=== PATIENT | female | born 1975 | race Caucasian/White ===

== ENCOUNTER 2022-08-08 08:22 | Outpatient (RCR) | payer OTHER, SELFPAY | END 2022-09-07 16:23 | disposition home or self-care (01) | LOC: OT 08:22 | PROVIDERS: PCP Family Medicine; Visit Provider Nurse Practitioner Family | DX: M24.541 Contracture, right hand (principal) | CPT/HCPCS: 97018; 97035; 97140; 97530 ==

== ENCOUNTER 2022-08-09 08:39 | Outpatient (OUT) | payer OTHER, SELFPAY ==
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
== END 2022-08-09 08:40 | disposition home or self-care (01) ==
PROVIDERS: PCP Family Medicine; Visit Provider Anesthesiology Pain Medicine
DX: G90.50 Complex regional pain syndrome I, unspecified (principal); M48.061 Spinal stenosis, lumbar region without neurogenic claudication
CPT/HCPCS: G0463

== ENCOUNTER 2023-02-13 10:54 | Outpatient (OUT) | payer OTHER, SELFPAY ==
--- NOTE | 2023-02-13 11:09 | PM.CN ---
Consult Note: HPI Data of Consult Requesting Physician: An Reynoso NP Primary Care Provider: Ryan ORTIZ Consult Narrative Reason for consult: f/u Narrative: Tasneem Camarillo a pleasant 47 year old female presents for evaluation and management of CPS or LLE and hx of fibromyalgia. Patient reporting pain 7/10 sharp throbbing stabbing in low back. Patient has been noticing increase in low back pain and leg pain over the last few months, has been reconsidering repeat ketamine infusions. Patient would like to discuss medication management as she cannot proceed with SCS trial or implant with work schedule. cc:: CC: An Reynoso NP Review of Systems ROS Status of ROS 10 or more systems reviewed and unremarkable except as noted in history and below Musculoskeletal Reports: back pain, extremity pain and extremity swelling Meds Home Medications and Allergies Home Medications Medication Instructions Recorded Confirmed Type atenolol 50 mg-chlorthalidone 25 1 tab PO DAILY 08/12/22 08/12/22 History mg tablet buspirone 15 mg tablet 15 mg PO BID 08/12/22 08/12/22 History bjhndhjfdu-pncfqnznfvryu-ogcg PO .Q4 08/12/22 History lamotrigine 200 mg tablet 200 mg PO DAILY 08/12/22 08/12/22 History ondansetron 4 mg disintegrating 4 mg PO Q6H 08/12/22 08/12/22 History tablet oxaprozin 600 mg tablet 600 mg PO BID 08/12/22 08/12/22 History oxaprozin 600 mg tablet 600 mg PO BID 08/12/22 08/12/22 History oxycodone-acetaminophen 5 mg-325 1 tab PO DAILY 08/12/22 08/12/22 History mg tablet pregabalin 150 mg capsule 150 mg PO .QHS 08/12/22 08/12/22 History promethazine 25 mg tablet 25 mg PO Q6H 08/12/22 08/12/22 History tizanidine 4 mg tablet 4 mg PO .QHS 08/12/22 08/12/22 History Allergies Allergy/AdvReac Type Severity Reaction Status Date / Time sulfabenzamide Allergy Intermediate Verified 08/09/22 09:21 sumatriptan [From Imitrex] Allergy Intermediate Verified 08/09/22 09:21 REGLAN Allergy Intermediate Uncoded 08/09/22 09:21 AUGMENTIN Allergy Unknown Uncoded 08/09/22 09:21 Exam Constitutional Common normals: no apparent distress, average body habitus, oriented x3, no limitations, healthy appearing, alert and well nourished General appearance: cooperative, comfortable and well developed Orientation/consciousness: Yes awake, Yes oriented to person, Yes oriented to place and Yes oriented to time HENMT Common normals: normocephalic Head and scalp: normal to inspection Respiratory Common normals: normal respiratory effort, no retractions and no use of accessory muscles Effort & inspection: able to speak in complete sentences and symmetric chest movement Back & Pelvis Lumbar spine/lower back: normal to inspection, pain with ROM, paraspinal muscle tenderness, paraspinal muscle spasm, straight leg raise positive right and straight leg raise positive left Other: positive rohan bilat R>L, positive facet loading Extremity Common normals: normal to inspection, full ROM, normal capillary refill, no clubbing, cyanosis or edema and no pedal edema Left lower extremity: lower leg Other: hypersensitivity to touch Assessment and Plan Assessment and Plan (1) CRPS (complex regional pain syndrome type I): Qualifiers: Complex regional pain syndrome affected site: lower extremity Laterality: left Qualified Code(s): G90.522 - Complex regional pain syndrome I of left lower limb (2) Lumbar spondylosis: (3) Myofascial pain: (4) Chronic prescription opiate use: Assessment and Plan: I feel these medications are improving the patient's quality of life and allow them to tolerate activities of daily living as well as participate in recreational activity.? The patient does not report intolerable side effects. The patient is NOT opioid naive and non-pharmacologic and non-opioid treatment has failed to significantly relieve the patient's pain and improve functionality. The patient has a diagnosis that is related to a somatic or visceral pain etiology. ? ?? I reviewed with the patient the potential risks and side effects with the use of? opioid medications including but not limited to respiratory depression,? sedation, and even . I verified the patient has access to naloxone should? these effects occur. I advised the patient to avoid the use of any other? sedation substances including alcohol, THC, and benzodiazepines while? taking opioid medications due to the risk of compounding side effects and? detrimental outcomes. I reviewed the ADDICTION MEDICINE PHYSICIAN, pain treatment agreement, urine? drug screen, and opioid start talking forms. The patient was advised to let? their family know they had Naloxone in case they would need to administer? the medication.? ?? A drug screen was completed within the last year, and no aberrancies were noted regarding their use of controlled substances. The patient understands they are subject to the terms and conditions of the pain contract that they have signed. ? ?? I have checked an [place]AR[place] report on this patient today and there are no aberrancies noted in the prescribing history.? Plan refill percocet 5-325mg daily PRN narcan discussed and prescribed PT declined TENS for low back pain and myofascial pain f/u 3 months for medication management
--- NOTE | 2023-02-13 11:26 | PM.CN ---
Consult Note: HPI Data of Consult Requesting Physician: An Reynoso NP Primary Care Provider: Ryan ORTIZ Consult Narrative cc:: CC: An Reynoso NP Meds Home Medications and Allergies Home Medications Medication Instructions Recorded Confirmed Type atenolol 50 mg-chlorthalidone 25 1 tab PO DAILY 08/12/22 08/12/22 History mg tablet buspirone 15 mg tablet 15 mg PO BID 08/12/22 08/12/22 History fsmabiuddw-abehnnnxyklro-mtzo PO .Q4 08/12/22 History lamotrigine 200 mg tablet 200 mg PO DAILY 08/12/22 08/12/22 History ondansetron 4 mg disintegrating 4 mg PO Q6H 08/12/22 08/12/22 History tablet oxaprozin 600 mg tablet 600 mg PO BID 08/12/22 08/12/22 History oxaprozin 600 mg tablet 600 mg PO BID 08/12/22 08/12/22 History oxycodone-acetaminophen 5 mg-325 1 tab PO DAILY 08/12/22 08/12/22 History mg tablet pregabalin 150 mg capsule 150 mg PO .QHS 08/12/22 08/12/22 History promethazine 25 mg tablet 25 mg PO Q6H 08/12/22 08/12/22 History tizanidine 4 mg tablet 4 mg PO .QHS 08/12/22 08/12/22 History Allergies Allergy/AdvReac Type Severity Reaction Status Date / Time sulfabenzamide Allergy Intermediate Verified 08/09/22 09:21 sumatriptan [From Imitrex] Allergy Intermediate Verified 08/09/22 09:21 REGLAN Allergy Intermediate Uncoded 08/09/22 09:21 AUGMENTIN Allergy Unknown Uncoded 08/09/22 09:21 Assessment and Plan Assessment and Plan (1) CRPS (complex regional pain syndrome type I): Qualifiers: Complex regional pain syndrome affected site: lower extremity Laterality: left Qualified Code(s): G90.522 - Complex regional pain syndrome I of left lower limb (2) Lumbar spondylosis: (3) Myofascial pain: (4) Chronic prescription opiate use: Assessment and Plan: I feel these medications are improving the patient's quality of life and allow them to tolerate activities of daily living as well as participate in recreational activity.? The patient does not report intolerable side effects. The patient is NOT opioid naive and non-pharmacologic and non-opioid treatment has failed to significantly relieve the patient's pain and improve functionality. The patient has a diagnosis that is related to a somatic or visceral pain etiology. ? ?? I reviewed with the patient the potential risks and side effects with the use of? opioid medications including but not limited to respiratory depression,? sedation, and even . I verified the patient has access to naloxone should? these effects occur. I advised the patient to avoid the use of any other? sedation substances including alcohol, THC, and benzodiazepines while? taking opioid medications due to the risk of compounding side effects and? detrimental outcomes. I reviewed the DATABASES SOFTWARE CONSULTANT, pain treatment agreement, urine? drug screen, and opioid start talking forms. The patient was advised to let? their family know they had Naloxone in case they would need to administer? the medication.? ?? A drug screen was completed within the last year, and no aberrancies were noted regarding their use of controlled substances. The patient understands they are subject to the terms and conditions of the pain contract that they have signed. ? ?? I have checked an OARRS report on this patient today and there are no aberrancies noted in the prescribing history.? Plan refill percocet 5-325mg daily PRN narcan discussed and prescribed PT declined TENS for low back pain and myofascial pain f/u 3 months for medication management
== END 2023-02-13 10:55 | disposition home or self-care (01) ==
PROVIDERS: PCP Family Medicine; Visit Provider Nurse Practitioner
DX: G90.522 Complex regional pain syndrome I of left lower limb (principal); M47.816 Spondylosis without myelopathy or radiculopathy, lumbar region; M79.18 Myalgia, other site; Z79.891 Long term (current) use of opiate analgesic
CPT/HCPCS: G0463

== ENCOUNTER 2023-03-14 10:09 | Emergency (ER) | payer OTHER, SELFPAY ==
[2023-03-14 10:13] VITALS: BP 151/82; PULSE 73; RESP 18; TEMP 36.8; O2SAT 97; BMI 29.5
--- NOTE | 2023-03-14 10:19 | ECG_ITS ---
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
--- NOTE | 2023-03-14 10:19 | XR_ITS ---
The [address] [address] Patient Name: DEANNA LOPEZ MRN: [id number] date: 1975 Sex: F Assigned Patient Location: ER Current Patient Location: ER Accession/Order Number: [id number] Exam Date: 03/14/2023 11:00 Report Date: 03/14/2023 12:04 At the request of: KORI CASEY Procedure: XR chest 1V EXAMINATION: XR chest 1V HISTORY: chest pain COMPARISON: 01/03/2020 TECHNIQUE: AP portable FINDINGS: LUNGS: No significant pulmonary parenchymal abnormalities. VASCULATURE: No increased pulmonary vasculature. PLEURA: No pneumothorax, effusion, or pleural thickening. CARDIAC: No cardiomegaly or cardiac silhouette abnormality. MEDIASTINUM: No visible mass or adenopathy. BONES: No fracture or visible bone lesion. OTHER: Negative. XR/XR chest 1V IMPRESSION: No acute cardiopulmonary process Electronically authenticated by: MINE STAHL Date: 03/14/2023 12:04
--- NOTE | 2023-03-14 10:41 | ED.GENADUL1 ---
HPI - General Adult General Chief complaint: Chest Pain Stated complaint: CHEST PAIN/ SHORTNESS OF BREATH Time Seen by Provider: 03/14/23 10:39 Source: patient Mode of arrival: walk-in Limitations: no limitations History of Present Illness HPI narrative: Patient is a 48-year-old female who is presenting to the Emergency Room with chief complaint of midepigastric and lower midsternal discomfort this pain intermittent today and 2 days ago. Patient is not lightheaded or dizzy. No shortness of breath. Patient does not have any significant history of acid reflux or ulcers. Patient had nausea with no vomiting. Patient has no melena, hematochezia. Patient does not have Any cardiac history. No other acute complaints. . All systems are negative except as noted/marked. All systems reviewed and otherwise negative. . Nurses note and vital signs reviewed and patient is not hypoxic. General: The patient appears well and in no apparent distress. Patient is resting comfortably on cart. Patient is not toxic, lethargic, or listless Skin: Warm, dry, no pallor noted. There is no rash noted. No petechiae, purpura. Head: Normocephalic, atraumatic Eye: Normal conjunctiva, no drainage, EOMI. PERRL Ears, Nose, Mouth, and Throat: oral mucosa is moist. Nares patent. Mouth without vesicles. Cardiovascular: Regular Rate and Rhythm, no murmur, gallop, rub Respiratory: Patient is in no distress, no accessory muscle use, lungs are clear to auscultation, no wheezing, rales or rhonchi Back: non-tender, no CVA tenderness bilaterally to percussion. No CT LS midline pain GI: soft, Mild midepigastric tenderness palpation, no tenderness to palpation, no masses appreciated. No rebound, guarding, or rigidity noted. No flank pain bilateral, No distention Musculoskeletal: Patient has full range of motion of all of the extremities, no motor, sensory, or focal neurological deficits Neurological: A&O x3, normal speech Psychiatric: Cooperative Related Data Home Medications Medication Instructions Recorded Confirmed atenolol 50 mg-chlorthalidone 25 1 tab PO DAILY 08/12/22 08/12/22 mg tablet buspirone 15 mg tablet 15 mg PO BID 08/12/22 08/12/22 sghxvgqqnv-atrxycnnpclvl-qmrz PO .Q4 08/12/22 lamotrigine 200 mg tablet 200 mg PO DAILY 08/12/22 08/12/22 ondansetron 4 mg disintegrating 4 mg PO Q6H 08/12/22 08/12/22 tablet oxaprozin 600 mg tablet 600 mg PO BID 08/12/22 08/12/22 oxaprozin 600 mg tablet 600 mg PO BID 08/12/22 08/12/22 oxycodone-acetaminophen 5 mg-325 1 tab PO DAILY 08/12/22 08/12/22 mg tablet pregabalin 150 mg capsule 150 mg PO .QHS 08/12/22 08/12/22 promethazine 25 mg tablet 25 mg PO Q6H 08/12/22 08/12/22 tizanidine 4 mg tablet 4 mg PO .QHS 08/12/22 08/12/22 Previous Rx's Medication Instructions Recorded naloxone 4 mg/actuation nasal 4 mg intranasal Q3M PRN opioid 02/13/23 spray (Narcan) overdose #2 ea oxycodone-acetaminophen 5 mg-325 1 tab PO DAILY PRN pain #30 tabs 02/13/23 mg tablet (Percocet) Allergies Allergy/AdvReac Type Severity Reaction Status Date / Time metoclopramide [From Reglan] Allergy Intermediate Verified 03/14/23 10:57 sulfabenzamide Allergy Intermediate Verified 08/09/22 09:21 sumatriptan [From Imitrex] Allergy Intermediate Verified 08/09/22 09:21 amoxicillin [From Augmentin] Allergy Unknown Verified 03/14/23 10:57 clavulanic acid Allergy Unknown Verified 03/14/23 10:57 [From Augmentin] [facility] Social History Smoking status: Never smoker Exam Constitutional Vital Signs, click to edit/add: Last Vital Signs Temp 98.3 F 03/14/23 10:13 Pulse 73 03/14/23 10:13 Resp 18 03/14/23 10:13 BP 151/82 H 03/14/23 10:13 Pulse Ox 97 03/14/23 10:13 O2 Del Method Room Air 03/14/23 10:13 Course Vital Signs Vital signs: Vital Signs Temperature 98.3 F 03/14/23 10:13 Pulse Rate 73 03/14/23 10:13 Respiratory Rate 18 03/14/23 10:13 Blood Pressure 151/82 H 03/14/23 10:13 Pulse Oximetry 97 03/14/23 10:13 Oxygen Delivery Method Room Air 03/14/23 10:13 Temperature 98.3 F 03/14/23 10:13 Pulse Rate 73 03/14/23 10:13 Respiratory Rate 18 03/14/23 10:13 Blood Pressure 151/82 H 03/14/23 10:13 Pulse Oximetry 97 03/14/23 10:13 Oxygen Delivery Method Room Air 03/14/23 10:13 Medical Decision Making MDM Narrative Medical decision making narrative: Patient EKG, lab work shows no acute findings. Patient's nausea has improved. Patient's pain has subsided. Patient will follow-up with PCP. Patient's. And creatinine are elevated, they were also elevated on June 122022 as well. Patient has known kidney disease, she has not seen a graphic arts technician or been referred to a graphic arts technician yet. Patient has spoken to her PCP about elevated BUN and creatinine levels in the past. Patient feels safe going home, will follow up with PCP next week. No questions at discharge. Lab Data Labs: Lab Results 03/14/23 Range/Units 11:00 WBC 6.0 (4.0-11.0) 10^3/uL RBC 4.06 L (4.20-5.40) 10^6/uL Hgb 12.3 (12.0-16.0) g/dL Hct 39.3 (36.0-48.0) % MCV 96.8 (81.0-99.0) fL MCH 30.3 (26.7-34.0) pg MCHC 31.3 (29.9-35.2) g/dL RDW 14.1 (11.0-15.0) % Plt Count 251 (150-450) 10^3/uL MPV 10.6 (9.5-13.5) fL Neut % (Auto) 51.2 (43.0-75.0) % Lymph % (Auto) 35.6 (20.5-60.0) % Finney % (Auto) 9.2 (1.7-12.0) % Eos % (Auto) 2.8 (0.9-7.0) % Baso % (Auto) 1.0 (0.2-2.0) % Neut # (Auto) 3.1 (1.4-6.5) 10^3/uL Lymph # (Auto) 2.1 (1.2-3.8) 10^3/uL Finney # (Auto) 0.6 (0.3-0.8) 10^3/uL Eos # (Auto) 0.2 (0.0-0.7) 10^3/uL Baso # (Auto) 0.1 (0.0-0.1) 10^3/uL Abs Immat Gran (auto) 0.01 (0.00-0.03) 10^3/uL Imm/Tot Granulo (auto) 0.2 (0.0-0.5) % Sodium 139 (136-145) mmol/L Potassium 3.4 L (3.5-5.1) mmol/L Chloride 106 (98-107) mmol/L Carbon Dioxide 29.1 (21.0-32.0) mmol/L Anion Gap 7.3 BUN 34.0 H (7.0-18.0) mg/dL Creatinine 1.40 H (0.55-1.02) mg/dL Est GFR ( Amer) 48 L (>=60) Est GFR (Non-Af Amer) 40 L (>=60) BUN/Creatinine Ratio 24.3 Glucose 91 (74-106) mg/dL Calcium 9.3 (8.5-10.1) mg/dL Total Bilirubin 0.7 (0.2-1.0) mg/dL AST 20 (15-37) U/L ALT 17 (14-59) U/L Alkaline Phosphatase 63 (46-116) U/L Troponin I High Sens 8.0 (4.0-51.3) pg/mL Total Protein 6.6 (6.4-8.2) g/dL Albumin 3.2 L (3.4-5.0) g/dL Globulin 3.4 g/dL Albumin/Globulin Ratio 0.9 Lipase 88.0 H (16.0-77.0) U/L ECG Data Attestation: I personally reviewed and interpreted this ECG as follows: (EKG interpretation. Normal sinus rhythm at 64 beats a minute. Normal axis deviation. No acute ST elevation, no acute ectopy. QTC of 419.) Discharge Plan Discharge Chief Complaint: Chest Pain Clinical Impression: Chest pain, Chronic kidney disease, Atypical chest pain, Midepigastric pain Patient Disposition: Home, Self-Care Condition: Fair Prescriptions / Home Meds: No Action atenolol-chlorthalidone 50-25 mg tablet 1 tab PO DAILY lamotrigine 200 mg tablet 200 mg PO DAILY ondansetron 4 mg tablet,disintegrating 4 mg PO Q6H oxycodone-acetaminophen 5-325 mg tablet 1 tab PO DAILY pregabalin 150 mg capsule 150 mg PO .QHS promethazine 25 mg tablet 25 mg PO Q6H tizanidine 4 mg tablet 4 mg PO .QHS wwanaontoj-bpnainqjhukne-dlbs [Fioricet] PO .Q4 buspirone 15 mg tablet 15 mg PO BID oxaprozin 600 mg tablet 600 mg PO BID oxaprozin 600 mg tablet 600 mg PO BID oxycodone-acetaminophen [Percocet] 5-325 mg tablet 1 tab PO DAILY PRN (Reason: pain) Qty: 30 0RF naloxone [Narcan] 4 mg/actuation spray,non-aerosol 4 mg intranasal Q3M PRN (Reason: opioid overdose) Qty: 2 0RF Rx Instructions: spray 1 dose into ONE nostril; alternate nostrils w each dose until help arrives Instructions: Chest Pain (ED), Chronic Kidney Disease (ED), Abdominal Pain (ED), Epigastric Pain (ED) Additional Instructions: Follow-up with your PCP for reeevaluation for chronic kidney disease. You may need to be referred to a graphic arts technician of indicated. Continue to increase fluids at home If you're continuing to having chest pain or discomfort, return Emergency Room follow-up to your PCP for outpatient cardiac stress test and echocardiogram. Stand Alone Forms: Portal Instructions Referrals: Ryan ORTIZ [Primary Care Provider] - 1 week Discharge Date/Time: 03/14/23 13:20
[2023-03-14] MEDS: ONDANSETRON 4 MG RAPDIS TABLET SL (11:03)
[2023-03-14] MEDS: lidocaine HCL 15 ML, MAG HYDROX/ALUMINUM HYD/SIMETH 30 ML, HYOSCYAMINE SULFATE 0.25 MG PO (11:03)
[2023-03-14] MEDS: ASPIRIN 81 MG TAB.CHEW 162 MG PO (11:04)
[2023-03-14 11:06] LABS: Basophils Absolute Auto 0.1 10^3/uL (0.0-0.1); Eosinophils Absolute Auto 0.2 10^3/uL (0.0-0.7); Eosinophils Percent Auto 2.8 % (0.9-7.0); Hematocrit 39.3 % (36.0-48.0); Hemoglobin 12.3 g/dL (12.0-16.0); Immature Granulocytes Abs Auto 0.01 10^3/uL (0.00-0.03); Immature Granulocytes Pct Auto 0.2 % (0.0-0.5); Lymphocytes Absolute Auto 2.1 10^3/uL (1.2-3.8); Lymphocytes Percent Auto 35.6 % (20.5-60.0); Mean Corpuscular HGB Conc 31.3 g/dL (29.9-35.2); Mean Corpuscular Hemoglobin 30.3 pg (26.7-34.0); Mean Corpuscular Volume 96.8 fL (81.0-99.0); Mean Platelet Volume 10.6 fL (9.5-13.5); Monocytes Absolute Auto 0.6 10^3/uL (0.3-0.8); Monocytes Percent Auto 9.2 % (1.7-12.0); Neutrophils Absolute Auto 3.1 10^3/uL (1.4-6.5); Neutrophils Percent Auto 51.2 % (43.0-75.0); Platelet Count 251 10^3/uL (150-450); Red Blood Count 4.06 10^6/uL (4.20-5.40); Red Cell Distribution Width 14.1 % (11.0-15.0)
[2023-03-14 11:27] LABS: Alanine Aminotransferase 17 U/L (14-59); Albumin Globulin Ratio 0.9; Albumin Level 3.2 g/dL (3.4-5.0); Alkaline Phosphatase 63 U/L (46-116); Anion Gap 7.3; Aspartate Amino Transferase 20 U/L (15-37); BUN Creatinine Ratio 24.3; Bilirubin Total 0.7 mg/dL (0.2-1.0); Calcium 9.3 mg/dL (8.5-10.1); Carbon Dioxide 29.1 mmol/L (21.0-32.0); Chloride 106 mmol/L (98-107); Estimated GFR (African America 48 (>=60); Estimated GFR (Non-African Ame 40 (>=60); Globulin 3.4 g/dL; Glucose 91 mg/dL (74-106); Potassium 3.4 mmol/L (3.5-5.1); Sodium 139 mmol/L (136-145); Total Protein 6.6 g/dL (6.4-8.2)
== END 2023-03-14 13:20 | disposition home or self-care (01) ==
PROVIDERS: Emergency Provider Emergency Medicine; PCP Family Medicine
DX: R07.89 Other chest pain (principal); N18.9 Chronic kidney disease, unspecified; R10.13 Epigastric pain; Z79.899 Other long term (current) drug therapy
CPT/HCPCS: 36415; 71045; 80053; 83690; 84484; 85025; 93005; 99285; Q0162

== ENCOUNTER 2023-05-22 09:53 | Outpatient (OUT) | payer OTHER, SELFPAY ==
--- NOTE | 2023-05-22 10:28 | P.CN_ITS ---
Consult Note: HPI Data of Consult Patient: known to practice within the last 3 years Consult date: 05/22/23 Requesting Physician: An Reynoso NP Primary Care Provider: Ryan ORTIZ Consult Narrative Reason for consult: f/u Narrative: Tasneem Camarillo a pleasant 48 year old female presents for evaluation and managem ent of chronic low back pain. Pain today 4/10, increasing to 8/10 with activity. patient finding moderate benefit from current medication regimen and TENS unit. Patient would like to discuss additional intervention options as she continues to have moderate to severe pain impacting functional ability. Pt has failed PT and provided guided HEP greater than 6 weeks. cc:: CC: An Reynoso NP Review of Systems ROS Status of ROS 10 or more systems reviewed and unremark able except as noted in history and below Musculoskeletal Reports: back pain and joint pain PFSH PFSH Social History Smoking status: Never smoker Meds Home Medications and Allergies Home Medications Medication Instructions Recorded Confirmed Type atenolol 50 mg-chlorthalidone 25 1 tab PO DAILY 08/12/22 08/12/22 History mg tablet buspirone 15 mg tablet 15 mg PO BID 08/12/22 08/12/22 History kxfzkxuyje-hrcltajwglucv-zerh PO .Q4 08/12/22 History lamotrigine 200 mg tablet 200 mg PO DAILY 08/12/22 08/12/22 History ondansetron 4 mg disintegrating 4 mg PO Q6H 08/12/22 08/12/22 History tablet oxaprozin 600 mg tablet 600 mg PO BID 08/12/22 08/12/22 History oxaprozin 600 mg tablet 600 mg PO BID 08/12/22 08/12/22 History oxycodone-acetaminophen 5 mg-325 1 tab PO DAILY 08/12/22 08/12/22 History mg tablet pregabalin 150 mg capsule 150 mg PO .QHS 08/12/22 08/12/22 History promethazine 25 mg tablet 25 mg PO Q6H 08/12/22 08/12/22 History tizanidine 4 mg tablet 4 mg PO .QHS 08/12/22 08/12/22 History naloxone 4 mg/actuation nasal 4 mg intranasal Q3M PRN opioid 02/13/23 Rx spray (Narcan) overdose #2 ea oxycodone-acetaminophen 5 mg-325 1 tab PO DAILY PRN pain #30 tabs 02/13/23 Rx mg tablet (Percocet) Allergies Allergy/AdvReac Type Severity Reaction Status Date / Time metoclopramide [From Reglan] Allergy Intermediate Verified 03/14/23 10:57 sulfabenzamide Allergy Intermediate Verified 08/09/22 09:21 sumatriptan [From Imitrex] Allergy Intermediate Verified 08/09/22 09:21 amoxicillin [From Augmentin] Allergy Unknown Verified 03/14/23 10:57 clavulanic acid Allergy Unknown Verified 03/14/23 10:57 [From Augmentin] Exam Constitutional Documenting provider has reviewed patient's vital signs: yes Common normals: no apparent distress, oriented x3, healthy appearing, alert and well nourished General appearance: cooperative Orientation/consciousness: Yes awake, Yes oriented to person, Yes oriented to place and Yes oriented to time HENMT Common normals: normocephalic, hearing grossly normal bilaterally and moist oral mucous membranes Head and scalp: normocephalic Eye Common normals: PERRL Pupil: PERRL Neck & C-Spine Common normals: full ROM General: normal visual inspection Chest Common normals: inspection of chest normal Respiratory Common normals: normal respiratory effort, no retractions and no use of accessory muscles Effort & inspection: able to speak in complete sentences and symmetric chest movement Back & Pelvis Lumbar spine/lower back: normal to inspection, pain with ROM, lumbar spinal tenderness, paraspinal muscle tenderness and straight leg raise negative bilaterally Sacroiliac joints: SI joint(s) abnormal Other: positive rohan bilat R>L, positive facet loading over L3-L5 bilateral SIJ positive FABIR FADER Thigh thrust gaenslens Extremity Common normals: normal to inspection, full ROM, normal capillary refill, no clubbing, cyanosis or edema and no pedal edema Left lower extremity: lower leg Other: hypersensitivity to touch hx CRPS Neuro Common normals: oriented x3, CN's II-XII intact bilaterally, moves all extremities, no focal motor deficits, no sensory deficits noted and deep tendon reflexes 2+ bilaterally Sensorium/orientation: alert Motor exam: strength 5/5 throughout and no movement abnormalities noted Psych Common normals: mental status grossly normal, thought process normal, cooperative, affect normal, speech normal and activity/motor behavior normal Speech: normal speech Thought process: normal thought process Results Additional Findings Additional findings: If on a controlled substance or opioids, I have checked an [place]AR[place] report on this patient and there are no aberrancies noted in the prescribing history.??If on a controlled substance or opioid a drug screen was completed and reviewed within the last year, and if there has not been a drug screen completed we ordered one today to monitor higher risk, state monitored pain medication use. As part of providing excellent, safe, comprehensive care, the following was completed at our patient's visit: 1. A medication reconciliation and review to ensure accurate knowledge of current/active medications, including asking our patients to inform us about any krgx-abq-jpsabxs medications or herbal remedies/nutritional supplements/alternative remedies. 2. A review to specifically ensure our patients have had annual screening for screening for depression, screening for tobacco use, and screening for unhealthy alcohol use. For concerning screenings had a discussion with the patient, provided patient education, and recommended follow-up with primary care provider when appropriate. If patient noted with a risk of falling, they received education on strength, gait, and balance training to prevent future risk of falling. Assessment and Plan Assessment and Plan (1) Bilateral sacroiliitis: (2) Chronic prescription opiate use: Assessment and Plan: feel these medications are improving the patient's quality of life and allow them to tolerate activities of daily living as well as participate in recreational activity.? The patient does not report intolerable side effects. The patient is NOT opioid naive and non-pharmacologic and non-opioid treatment has failed to significantly relieve the patient's pain and improve functionality. The patient has a diagnosis that is related to a somatic or visceral pain etiology. ? ?? I reviewed with the patient the potential risks and side effects with the use of? opioid medications including but not limited to respiratory depression,? sedation, and even . I verified the patient has access to naloxone should? these effects occur. I advised the patient to avoid the use of any other? sedation substances including alcohol, THC, and benzodiazepines while? taking opioid medications due to the risk of compounding side effects and? detrimental outcomes. I reviewed the LACQUER DIPPING MACHINE OPERATOR, pain treatment agreement, urine? drug screen, and opioid start talking forms. The patient was advised to let? their family know they had Naloxone in case they would need to administer? the medication.? ?? A drug screen was completed within the last year, and no aberrancies were noted regarding their use of controlled substances. The patient understands they are subject to the terms and conditions of the pain contract that they have signed. ? ?? I have checked an [place]AR[place] report on this patient today and there are no aberrancies noted in the prescribing history.? (3) Lumbar spondylosis: (4) Myofascial pain: (5) CRPS (complex regional pain syndrome type I): Assessment and Plan: well controlled Qualifiers: Complex regional pain syndrome affected site: lower extremity Laterality: left Qualified Code(s): G90.522 - Complex regional pain syndrome I of left lower limb Plan bilateral nerve block of SIJ under fluoroscopy, risks vs benefits discussed continue current medication regimen, tolerating well without side effects continue TENS, finding benefit consider bilateral L3-4 L4-5 facet medial branch blocks working towards RFA in the future for facet pain and lumbar spondylosis f/u after injection
== END 2023-05-22 09:54 | disposition home or self-care (01) ==
LOC: PM 09:54
PROVIDERS: PCP Family Medicine; Visit Provider Nurse Practitioner
DX: M46.1 Sacroiliitis, not elsewhere classified (principal); Z79.891 Long term (current) use of opiate analgesic; M47.816 Spondylosis without myelopathy or radiculopathy, lumbar region; M79.18 Myalgia, other site; G90.522 Complex regional pain syndrome I of left lower limb
CPT/HCPCS: G0463

== ENCOUNTER 2023-08-27 15:00 | Outpatient (RCR) | payer OTHER, SELFPAY | END 2023-08-28 16:08 | disposition home or self-care (01) | LOC: OT 15:00 | PROVIDERS: PCP Family Medicine; Visit Provider Nurse Practitioner Family | DX: M24.541 Contracture, right hand (principal); S62.606D Fracture of unspecified phalanx of right little finger, subsequent encounter for fracture with routine healing | CPT/HCPCS: 97165; 97760 ==

== ENCOUNTER 2023-10-22 10:09 | Outpatient (OUT) | payer OTHER, SELFPAY ==
--- NOTE | 2023-10-22 10:42 | P.CN_ITS ---
Consult Note: HPI Data of Consult Patient: known to practice within the last 3 years Consult date: 05/22/23 Requesting Physician: An Reynoso NP Primary Care Provider: Ryan ORTIZ Consult Narrative Reason for consult: f/u Narrative: Tasneem Camarillo a pleasant 48 year old female presents for evaluation and managem ent of chronic low back pain. Pain today 4/10, increasing to 8/10 with activity. patient finding moderate benefit from current medication regimen and TENS unit. Pt has failed PT and provided guided HEP greater than 6 weeks. Patient decided not to pursue interventional therapy as her medication regimen is working well. cc:: CC: An Reynoso NP Review of Systems ROS Status of ROS 10 or more systems reviewed and unremark able except as noted in history and below Musculoskeletal Reports: back pain and extremity pain PFSH PFSH Social History Smoking status: Never smoker Meds Home Medications and Allergies Home Medications ?Medication ?Instructions ?Recorded ?Confirmed ?Type atenolol 50 mg-chlorthalidone 25 1 tab PO DAILY 08/12/22 08/12/22 History mg tablet buspirone 15 mg tablet 15 mg PO BID 08/12/22 08/12/22 History ziygndsska-dnjmlyuzkynem-scwr PO .Q4 08/12/22 History lamotrigine 200 mg tablet 200 mg PO DAILY 08/12/22 08/12/22 History ondansetron 4 mg disintegrating 4 mg PO Q6H 08/12/22 08/12/22 History tablet oxaprozin 600 mg tablet 600 mg PO BID 08/12/22 08/12/22 History oxaprozin 600 mg tablet 600 mg PO BID 08/12/22 08/12/22 History oxycodone-acetaminophen 5 mg-325 1 tab PO DAILY 08/12/22 08/12/22 History mg tablet pregabalin 150 mg capsule 150 mg PO .QHS 08/12/22 08/12/22 History promethazine 25 mg tablet 25 mg PO Q6H 08/12/22 08/12/22 History tizanidine 4 mg tablet 4 mg PO .QHS 08/12/22 08/12/22 History naloxone 4 mg/actuation nasal 4 mg intranasal Q3M PRN opioid 02/13/23 Rx spray (Narcan) overdose #2 ea oxycodone-acetaminophen 5 mg-325 1 tab PO DAILY PRN pain #30 tabs 02/13/23 Rx mg tablet (Percocet) Allergies Allergy/AdvReac Type Severity Reaction Status Date / Time metoclopramide [From Reglan] Allergy Intermediate Verified 03/14/23 10:57 sulfabenzamide Allergy Intermediate Verified 08/09/22 09:21 sumatriptan [From Imitrex] Allergy Intermediate Verified 08/09/22 09:21 amoxicillin [From Augmentin] Allergy Unknown Verified 03/14/23 10:57 clavulanic acid Allergy Unknown Verified 03/14/23 10:57 [From Augmentin] Exam Constitutional Documenting provider has reviewed patient's vital signs: yes Common normals: no apparent distress, oriented x3, healthy appearing, alert and well nourished General appearance: cooperative Orientation/consciousness: Yes awake, Yes oriented to person, Yes oriented to place and Yes oriented to time HENMT Common normals: normocephalic, hearing grossly normal bilaterally and moist oral mucous membranes Head and scalp: normocephalic Eye Common normals: PERRL Pupil: PERRL Neck & C-Spine Common normals: full ROM General: normal visual inspection Chest Common normals: inspection of chest normal Respiratory Common normals: normal respiratory effort, no retractions and no use of accessory muscles Effort & inspection: able to speak in complete sentences and symmetric chest movement Back & Pelvis Lumbar spine/lower back: normal to inspection, pain with ROM, lumbar spinal tenderness, paraspinal muscle tenderness and straight leg raise negative bilaterally Sacroiliac joints: SI joint(s) abnormal Other: positive rohan bilat R>L, positive facet loading over L3-L5 bilateral SIJ positive FABIR FADER Thigh thrust gaenslens Extremity Common normals: normal to inspection, full ROM, normal capillary refill, no clubbing, cyanosis or edema and no pedal edema Left lower extremity: lower leg Other: hypersensitivity to touch hx CRPS Neuro Common normals: oriented x3, CN's II-XII intact bilaterally, moves all extremities, no focal motor deficits, no sensory deficits noted and deep tendon reflexes 2+ bilaterally Sensorium/orientation: alert Motor exam: strength 5/5 throughout and no movement abnormalities noted Psych Common normals: mental status grossly normal, thought process normal, cooperative, affect normal, speech normal and activity/motor behavior normal Speech: normal speech Thought process: normal thought process Results Additional Findings Additional findings: If on a controlled substance or opioids, I have checked an [place]AR[place] report on this patient and there are no aberrancies noted in the prescribing history.??If on a controlled substance or opioid a drug screen was completed and reviewed within the last year, and if there has not been a drug screen completed we ordered one today to monitor higher risk, state monitored pain medication use. As part of providing excellent, safe, comprehensive care, the following was completed at our patient's visit: 1. A medication reconciliation and review to ensure accurate knowledge of current/active medications, including asking our patients to inform us about any tagl-nmw-nocuhjp medications or herbal remedies/nutritional supplements/alternative remedies. 2. A review to specifically ensure our patients have had annual screening for screening for depression, screening for tobacco use, and screening for unhealthy alcohol use. For concerning screenings had a discussion with the patient, provided patient education, and recommended follow-up with primary care provider when appropriate. If patient noted with a risk of falling, they received education on strength, gait, and balance training to prevent future risk of falling. Assessment and Plan Assessment and Plan (1) Lumbar spondylosis: (2) Bilateral sacroiliitis: (3) Chronic prescription opiate use: Assessment and Plan: feel these medications are improving the patient's quality of life and allow them to tolerate activities of daily living as well as participate in recreational activity.? The patient does not report intolerable side effects. The patient is NOT opioid naive and non-pharmacologic and non-opioid treatment has failed to significantly relieve the patient's pain and improve functionality. The patient has a diagnosis that is related to a somatic or visceral pain etiology. ? ?? I reviewed with the patient the potential risks and side effects with the use of? opioid medications including but not limited to respiratory depression,? sedation, and even . I verified the patient has access to naloxone should? these effects occur. I advised the patient to avoid the use of any other? sedation substances including alcohol, THC, and benzodiazepines while? taking opioid medications due to the risk of compounding side effects and? detrimental outcomes. I reviewed the ASSISTANT FIELD HOCKEY COACH, pain treatment agreement, urine? drug screen, and opioid start talking forms. The patient was advised to let? their family know they had Naloxone in case they would need to administer? the medication.? ?? A drug screen was completed within the last year, and no aberrancies were noted regarding their use of controlled substances. The patient understands they are subject to the terms and conditions of the pain contract that they have signed. ? ?? I have checked an OARRS report on this patient today and there are no aberrancies noted in the prescribing history.? (4) Myofascial pain: (5) CRPS (complex regional pain syndrome type I): Assessment and Plan: well controlled Qualifiers: Complex regional pain syndrome affected site: lower extremity Laterality: left Qualified Code(s): G90.522 - Complex regional pain syndrome I of left lower limb Plan update UDS, denies alcohol or marijuana use continue current medication regimen, tolerating well without side effects continue TENS, finding benefit declining interventional therapy encouraged daily stretching f/u 3 months, sooner if needed
== END 2023-10-22 10:10 | disposition home or self-care (01) ==
PROVIDERS: PCP Family Medicine; Visit Provider Nurse Practitioner
DX: M47.816 Spondylosis without myelopathy or radiculopathy, lumbar region (principal); M46.1 Sacroiliitis, not elsewhere classified; Z79.891 Long term (current) use of opiate analgesic; M79.18 Myalgia, other site; G90.522 Complex regional pain syndrome I of left lower limb
CPT/HCPCS: G0463

== ENCOUNTER 2024-02-11 10:43 | Outpatient (OUT) | payer OTHER, SELFPAY ==
--- NOTE | 2024-02-11 11:28 | P.CN_ITS ---
Consult Note: HPI Data of Consult Patient: known to practice within the last 3 years Consult date: 05/22/23 Requesting Physician: An Reynoso NP Primary Care Provider: Ryan ORTIZ Consult Narrative Reason for consult: f/u Narrative: Tasneem Camarillo a pleasant 48 year old female presents for evaluation and managem ent of chronic low back pain. Pain today 4/10, increasing to 8/10 with activity. patient finding moderate benefit from current medication regimen and TENS unit. Pt has failed PT and provided guided HEP greater than 6 weeks. Patient decided not to pursue interventional therapy as her medication regimen is working well. cc:: CC: An Reynoso NP Review of Systems ROS Status of ROS 10 or more systems reviewed and unremark able except as noted in history and below PFSH PFSH Social History Smoking status: Never smoker Meds Home Medications and Allergies Home Medications ?Medication ?Instructions ?Recorded ?Confirmed ?Type atenolol 50 mg-chlorthalidone 25 1 tab PO DAILY 08/12/22 08/12/22 History mg tablet hpobhhouyi-pgfwnedxsaebp-biqp PO .Q4 08/12/22 History lamotrigine 200 mg tablet 200 mg PO DAILY 08/12/22 08/12/22 History ondansetron 4 mg disintegrating 4 mg PO Q6H 08/12/22 08/12/22 History tablet oxaprozin 600 mg tablet 600 mg PO BID 08/12/22 08/12/22 History oxycodone-acetaminophen 5 mg-325 1 tab PO DAILY 08/12/22 08/12/22 History mg tablet tizanidine 4 mg tablet 4 mg PO .QHS 08/12/22 08/12/22 History naloxone 4 mg/actuation nasal 4 mg intranasal Q3M PRN opioid 02/13/23 Rx spray (Narcan) overdose #2 ea oxycodone-acetaminophen 5 mg-325 1 tab PO DAILY PRN pain #30 tabs 02/11/24 Rx mg tablet (Percocet) paroxetine HCl 30 mg tablet 60 mg PO 02/11/24 History pregabalin 200 mg capsule (Lyrica) 200 mg PO Q12H 02/11/24 02/11/24 History Allergies Allergy/AdvReac Type Severity Reaction Status Date / Time metoclopramide (From Reglan) Allergy Intermediate Verified 03/14/23 10:57 sulfabenzamide Allergy Intermediate Verified 08/09/22 09:21 sumatriptan (From Imitrex) Allergy Intermediate Verified 08/09/22 09:21 amoxicillin (From Augmentin) Allergy Unknown Verified 03/14/23 10:57 clavulanic acid (From Allergy Unknown Verified 03/14/23 10:57 Augmentin) Exam Constitutional Documenting provider has reviewed patient's vital signs: yes Common normals: no apparent distress, oriented x3, healthy appearing, alert and well nourished General appearance: cooperative Orientation/consciousness: Yes awake, Yes oriented to person, Yes oriented to place and Yes oriented to time HENMT Common normals: normocephalic, hearing grossly normal bilaterally and moist oral mucous membranes Head and scalp: normocephalic Eye Common normals: PERRL Pupil: PERRL Neck & C-Spine Common normals: full ROM General: normal visual inspection Chest Common normals: inspection of chest normal Respiratory Common normals: normal respiratory effort, no retractions and no use of accessory muscles Effort & inspection: able to speak in complete sentences and symmetric chest movement Back & Pelvis Lumbar spine/lower back: normal to inspection, pain with ROM, lumbar spinal tenderness, paraspinal muscle tenderness and straight leg raise negative bilaterally Sacroiliac joints: SI joint(s) abnormal Other: positive rohan bilat R>L, positive facet loading over L3-L5 bilateral SIJ positive FABIR FADER Thigh thrust gaenslens tenderness over right GTB Extremity Common normals: normal to inspection, full ROM, normal capillary refill, no clubbing, cyanosis or edema and no pedal edema Left lower extremity: lower leg Other: hypersensitivity to touch hx CRPS Neuro Common normals: oriented x3, CN's II-XII intact bilaterally, moves all extremities, no focal motor deficits, no sensory deficits noted and deep tendon reflexes 2+ bilaterally Sensorium/orientation: alert Motor exam: strength 5/5 throughout and no movement abnormalities noted Psych Common normals: mental status grossly normal, thought process normal, office service coordinator perative, affect normal, speech normal and activity/motor behavior normal Speech: normal speech Thought process: normal thought process Results Additional Findings Additional findings: If on a controlled substance or opioids, I have checked an OARRS report on this patient and there are no aberrancies noted in the prescribing history.??If on a controlled substance or opioid a drug screen was completed and reviewed within the last year, and if there has not been a drug screen completed we ordered one today to monitor higher risk, state monitored pain medication use. As part of providing excellent, safe, comprehensive care, the following was completed at our patient's visit: 1. A medication reconciliation and review to ensure accurate knowledge of current/active medications, including asking our patients to inform us about any xryy-xzb-zjfxanr medications or herbal remedies/nutritional supplements/alternative remedies. 2. A review to specifically ensure our patients have had annual screening for screening for depression, screening for tobacco use, and screening for unhealthy alcohol use. For concerning screenings had a discussion with the patient, provided patient education, and recommended follow-up with primary care provider when appropriate. If patient noted with a risk of falling, they received education on strength, gait, and balance training to prevent future risk of falling. Assessment and Plan Assessment and Plan (1) Lumbar spondylosis: (2) Bilateral sacroiliitis: (3) Chronic prescription opiate use: Assessment and Plan: feel these medications are improving the patient's quality of life and allow them to tolerate activities of daily living as well as participate in recreational activity.? The patient does not report intolerable side effects. The patient is NOT opioid naive and non-pharmacologic and non-opioid treatment has failed to significantly relieve the patient's pain and improve functionality. The patient has a diagnosis that is related to a somatic or visceral pain etiology. ? ?? I reviewed with the patient the potential risks and side effects with the use of? opioid medications including but not limited to respiratory depression,? sedation, and even . I verified the patient has access to naloxone should? these effects occur. I advised the patient to avoid the use of any other? sedation substances including alcohol, THC, and benzodiazepines while? taking opioid medications due to the risk of compounding side effects and? detrimental outcomes. I reviewed the PLANNING AND ANALYSIS MANAGER, pain treatment agreement, urine? drug screen, and opioid start talking forms. The patient was advised to let? their family know they had Naloxone in case they would need to administer? the medication.? ?? A drug screen was completed within the last year, and no aberrancies were noted regarding their use of controlled substances. The patient understands they are subject to the terms and conditions of the pain contract that they have signed. ? ?? I have checked an OARRS report on this patient today and there are no aberrancies noted in the prescribing history.? (4) Myofascial pain: (5) CRPS (complex regional pain syndrome type I): Assessment and Plan: well controlled Qualifiers: Complex regional pain syndrome affected site: lower extremity Laterality: left Qualified Code(s): G90.522 - Complex regional pain syndrome I of left lower limb (6) Greater trochanteric bursitis of right hip: Plan right GTB injection discussed and ordered continue current medication regimen, tolerating well without side effects continue TENS, finding benefit declining interventional therapy encouraged daily stretching f/u 3 months, sooner if needed
== END 2024-02-11 10:44 | disposition home or self-care (01) ==
PROVIDERS: PCP Family Medicine; Visit Provider Nurse Practitioner
DX: M47.816 Spondylosis without myelopathy or radiculopathy, lumbar region (principal); M46.1 Sacroiliitis, not elsewhere classified; Z79.891 Long term (current) use of opiate analgesic; M79.18 Myalgia, other site; G90.522 Complex regional pain syndrome I of left lower limb; M70.61 Trochanteric bursitis, right hip
CPT/HCPCS: G0463

== ENCOUNTER 2024-02-24 11:34 | Outpatient (OUT) | payer OTHER, SELFPAY ==
--- NOTE | 2024-02-24 | CONS_ITS ---
PROCEDURE DATE: 02/24/2024 PROCEDURE: Right greater trochanteric bursa injection. PREOPERATIVE DIAGNOSIS: Pain secondary to right greater trochanteric bursitis. POSTOPERATIVE DIAGNOSIS: Pain secondary to right greater trochanteric bursitis. SOLUTION USED FOR INJECTION: 2 mL of 2% lidocaine, 2 mL of 0.25% Marcaine and 2 mg of Kenalog, total of 5 mL. IMMEDIATE COMPLICATIONS: None. PROCEDURE: After informed consent was obtained from the patient, placed in the left lateral decubitus position. Skin overlying the area was prepped with alcohol. A 25 gauge, 1 ?? needle inserted into the area of the right greater trochanteric bursa, at a point just proximal to the insertion of the right gluteus medius. Needle tip was advanced until we were in the substance of the bursa. Injected a total of 5 mL of solution in divided doses in two different quadrants. No indication of intravascular or intraneural needle tip placement or injection. Post procedure, patient reports a dramatic reduction in pain symptoms. Post procedure, needle was removed. Discharged home after meeting criteria. CHANTELLE
--- OUTSIDE RECORDS SUMMARY | 2024-02-24 11:45 | XMS_ITS | CCD ---
Author Organization [facility] Care Team Providers Care Broker Associate Name Role Phone Madeleine Marshall Unavailable Unavailable Nico Pepper Unavailable Unavailable Shantelle TANG, Eloisa Primary Care Provider [phone] LAUREN KRISHNAN Attending Unavailable ELOISA PEPPER Primary Care Unavailable SHANTELLE, DR Ryan AMIN Primary Care Unavailable LAZARO ., DR SCAR Lugo Admitting Unavailable LAZARO ., DR SCAR Lugo Attending Unavailable LAZARO ., DR SCAR Lugo Consulting Unavailable SHANTELLE, DR Ryan AMIN Primary Care Unavailable LAZARO ., DR SCAR Lugo Attending Unavailable PA ., CHRISTIAN Consulting Unavailable LAZARO ., DR SCAR Lugo Admitting Unavailable SHANTELLE, DR Ryan AMIN Consulting Unavailable LAZARO ., DR SCAR Lugo Consulting Unavailable LAZARO ., DR SCAR Lugo Attending Unavailable SHANTELLE, DR Ryan AMIN Primary Care Unavailable LAZARO ., DR SCAR Lugo Admitting Unavailable LUNASHYAM JEFFERSON Consulting Unavailable LAZARO ., DR SCAR Lugo Attending Unavailable PA ., CHRISTIAN Consulting Unavailable SHANTELLE, DR Ryan AMIN Primary Care Unavailable IVETH ., DR SCAR Lugo Admitting Unavailable JANNETTE, DR BRY Davis Admitting Unavailantonio e SHANTELLE, DR Ryan AMIN Primary Care Unavailable JANNETTE, DR BRY Davis Attending Unavailabl e ROGER .ANGELINE Consulting Unavailable MARKER ., DR FRANZ Attending Unavailable MARKER ., DR FRANZ Admitting Unavailable SHANTELLE, DR Ryan AMIN Primary Care Unavailable MARKER ., DR FRANZ Consulting Unavailable RULA WAY Consulting Unavailable VALARIE GOSS Consulting Unavailable MARIANELA ., FARZANEH Attending Unavailable MARIANELA ., FARZANEH Admitting Unavailable ROSETTA, DR JUAN M Samano Consulting Unavailable SHANTELLE, DR Ryan AMIN Primary Care Unavailable MARIANELA ., FARZANEH Consulting Unavailable JULIO, DR KYMBERLY Samano Attending Unavailable JULIO, DR KYMBERLY Samano Admitting Unavailable JULIO, DR KYMBERLY Samano Consulting Unavailable KAFTAN, DR Ryan AMIN Primary Care Unavailable VELMAECK, DR BRY Davis Consulting Unavailantonio STAHL, DR MINE Parker Consulting Unavailable XIOMARA ., DR BECK Attending Unavailable HAY ., DR BECK Admitting Unavailable KAFTAN, DR Ryan AMIN Primary Care Unavailable HAY ., DR BECK Consulting Unavailable TROTTIDEEPIKA Consulting Unavailable AFSHAN, BUDDY Admitting Unavailable KAJOEYAN, DR Ryan AMIN Primary Care Unavailable AFSHAN, BUDDY Attending Unavailable ZIEBER, DR JUAN M Samano Consulting Unavailable AFSHAN, BUDDY Consulting Unavailable AFSHAN, BUDDY Attending Unavailable AFSHAN, BUDDY Admitting Unavailable AFSHAN, BUDDY Consulting Unavailable KAFTAN, DR Ryan AMIN Primary Care Unavailable DIANA HATCH Consulting Unavailable KANURIS, DR Ryan AMIN Primary Care Unavailable LAZARO ., DR SCAR Lugo Attending Unavailable LAZARO ., DR SCAR Lugo Admitting Unavailable LAZARO ., DR SCAR Lugo Consulting Unavailable COLTON, ALETA Consulting Unavailable MCCORNADK, JUAN M Consulting Unavailable LAZARO ., DR SCAR Lugo Attending Unavailable WINN .CHRISTIAN Consulting Unavailable KAJOEYAN, DR Ryan AMIN Primary Care Unavailable LAZARO ., DR SCAR Lugo Admitting Unavailable Rolando, Dr. Madeleine Pruitt Attending Unavaila taniya Pepper Jr, Dr. Nico Amin Primary Care Amita vailable Nico Pepper Unavailable Unavailable Unavailable Shantelle Salas, Dr. Nico Amin Primary Care Amita vailable Margarette, Dr. Humphrey Fierro Attending Dr. Nico Marte Jr Primary Care Amita vailable Daphne, MsJerman Garibay Attending Amita vailable Shantelle Salas, Dr. Nico Amin Primary Care Amita vailable Meli Bravo Attending Unavailable Shantelle Salas, Dr. Nico Amin Primary Care Amita vailataniya Pfeiffer, Dr. Humphrey Fierro Attending DO Juancarlos Marte Primary Care Provider [phone] DO Tad Barger Emergency Provider MD Zaheer Sanon Jr Emergency Provider Ryan PEPPER Primary Care Physician [phone] Tad Barger Attending Unavailable Juancarlos Pepper Primary Care Unavailable Tad Barger Admitting Unavailable Juancarlos Pepper Primary Care Unavailable Zaheer Sanon Jr Admitting Unavailable Zaheer Sanon Jr Attending Unavailable Nico Pepper DO Primary Care Provider Shantelle Masters DO, George Robert Primary Care Provi joann Tonya INHALATION THERAPY AIDES TEACHER, Malina Unavailable [phone] Shantelle Masters DO, George Robert [facility] Provi joann NICO PEPPER JR Primary Care Unavail able RAJA, NICANOR Referring Unavailable AIDEE VILLAVICENCIO Attending Unavailable RAJA, NICANOR Referring Unavailable LACHO BULLOCK Attending Unavailable NICO PEPPER JR [facility] Unavail able RAJA, NICANOR Attending Unavailable NICO PEPPER JR [facility] Care Unavail able RAJA, NICANOR Referring Unavailable NICO PEPPER JR [facility] Care Unavail able Claudio Forrester Attending Unavaila ble Tonya, Malina A Attending Unavailable Tonya, Malina A Attending Unavailable Tonya, Malina A Attending Unavailable NONE, XXXX Referring Unavailable NONE, XXXX Attending Unavailable NONE, XXXX Admitting Unavailable Tonya, Malina A Admitting Unavailable Tonya, Malina A Referring Unavailable Tonya, Malina A Attending Unavailable Tonya, Malina A Admitting Unavailable Tonya, Malina A Referring Unavailable Tonya, Malina A Attending Unavailable Tonya, Malina A Admitting Unavailable Tonya, Malina A Referring Unavailable Tonya, Malina A Attending Unavailable NICO PEPPER Attending Unavailable NICO PEPPER Attending Unavailable NICO PEPPER Referring Unavailable ROXANA VICENTE Attending Unavailable NICO PEPPER Referring Unavailable Nico Pepper DO R Unavailable [phone] VADIM CHOWDHURY Referring Unavailable SKIE, VADIM Referring Unavailable SKIE, VADIM Referring Unavailable SKIE, VADIM Referring Unavailable SKIE, VADIM Attending Unavailable SKIE, VADIM Attending Unavailable SKIE, VADIM Admitting Unavailable SKIE, VADIM Attending Unavailable SKIE, VADIM Attending Unavailable SKIE, VADIM Attending Unavailable Allergies Allergy Classification Reported Allergen(s) Allergy Type Date of Onset Reaction(s) Facility (11 sources) Metoclopramide; Translations: [Reglan] Drug Allergy 01-03-[address] [facility] Repository (14 sources) Sulfonamides (Antibiotic); Translations: [Sulfa Drugs] Allergy to drug (finding) Unknown (qualifier value) [facility] (20 sources) SUMAtriptan; Translations: [sumatriptan] Drug Allergy 12-29-19 21 Palpitations, Other (See Comments), Rash, Unknown (qualifier value), Other: See Comments, Unknown [facility] [id number] Work Phone: (20 sources) Metoclopramide; Translations: [metoclopramide] Drug Allergy 01-03-20 16 Hives, Nausea And Vomiting, Unknown (qualifier value), Anxiety, Other: See Comments, GI Upset, Unknown [email or web address] Work Phone: (16 sources) Sulfonamides (Antibiotic) Propensity to adverse reactions to drug 01-03-20 16 Nausea And Vomiting, Hives, GI Upset, Other: See Comments, Unknown [email or web address] Work Phone: (10 sources) Amoxicillin-Pot Clavulanate; Translations: [AMOXICILLIN-POT CLAVULANATE] Propensity to adverse reactions to drug 12-29-19 21 Other (See Comments), Rash [email or web address] (2 sources) Amoxicillin / Clavulanate; Translations: [Augmentin] Drug Allergy 01-26-[address] [facility] (2 sources) Plasmin Drug Allergy 01-03-[address] [facility] (2 sources) Sulfonamides (Antibiotic) Drug allergy (disorder) 01-03-[address] [facility] (11 sources) Amoxicillin; Translations: [amoxicillin] Drug Allergy 03-14-19 [facility] (3 sources) Clavulanate; Translations: [clavulanic acid] Drug Allergy 03-24-19 [facility] (5 sources) Sulfonamides (Antibiotic); Translations: [Sulfa (Sulfonamide Antibiotics)] Allergy to substance 01-03-20 16 Unknown Reaction [facility] (4 sources) Amoxicillin / Clavulanate; Translations: [amoxicillin-clavu lanate] Drug Allergy Rash [facility] (1 source) Metoclopramide Drug Allergy 03-30-19 [facility] (1 source) Sulfacetamide Drug Allergy 01-19-20 [facility] (1 source) Sulfur Drug Allergy 01-19-20 [facility] (1 source) Metoclopramide; Translations: [METOCLOPRAMIDE HCL] Drug Allergy 05-21-19 [facility] Repository Medications Current Medications Medication Drug Class(es) Dates Sig (Normalized) Sig (Original) acetaminophen 300 mg / butalbital 50 mg / caffeine 40 mg oral capsule (20 sources) Barbiturate, Central Nervous System Stimulant, Methylxanthine Start: 01-28-2024 take 1 capsule by mouth every four hours as needed for headache butalbital-acetamin ophen-caffeine (Fioricet) 50-300-40 MG capsule Indications: Nonintractable headache, unspecified chronicity pattern, unspecified headache type TAKE 1 CAPSULE BY MOUTH EVERY 4 HOURS NEEDED FOR HEADACHES 40 capsule 01/28/2024 Active Start: 09-17-2023 End: 01-28-2024 take 1 capsule by mouth every four hours as needed for headache muxelmzfjn-jaeeyxavdjcfs-ggvwbtln (Ken cet) 50-300-40 MG capsule Indications: Nonintractable headache, unspecified chronicity pattern, unspecified headache type TAKE 1 CAPSULE BY MOUTH EVERY 4 HOURS NEEDED FOR HEADACHES 40 capsule 09/17/2023 01/28/2024 Discontinued (Reorder) Start: 02-11-2023 take 1 capsule by mouth every four hours as needed for headache hwzqrufcmh-byesfmnhubmyr-kyqceqqt (Ken cet) 50-300-40 MG capsule Indications: Nonintractable headache, unspecified chronicity pattern, unspecified headache type TAKE 1 CAPSULE BY MOUTH EVERY 4 HOURS NEEDED FOR HEADACHES 40 capsule 0 02/11/2023 Active Start: 08-17-2019 Fioricet Refil l(s) 0 Start Date: 08/17/19 Status: Ordered Start: 06-23-2017 End: 12-01-2017 take 1 capsule by mouth every four hours Yeyhsnsvxh-Nuvqjdoxpqobz-Cuyo (Fioricet) 50-300-40 mg Capsule Active 1 CAP PO Q4H November 30, 2017 11:00pm take 1 tablet by mouth every four hours as needed acetaminophen 325 mg-caffeine 40 mg-buta lbital 50 mg (FIORICET) per tablet Take 1 tablet by mouth every 4 hours as needed. 0 Active Comment on above: Take 1 tablet by jimmy th every 4 hours as needed. acetaminophen 325 mg / oxyCODONE hydrochloride 5 mg oral tablet (20 sources) Opioid Agonist Start: 05-22-2023 take 1-2 tablets by mouth every six hours as needed oxyCODONE-acetami nophen (PERCOCET) 5-325 mg tablet Take 1-2 tablets by mouth every 6 hours as needed. 0 05/22/2023 Active Start: 08-09-2022 take 1 tablet by jimmy th in the morning oxyCODONE-acetaminophen (Percocet) 5-325 MG tablet Take 1 tablet by mouth in the morning. 08/09/2022 Active Start: 06-23-2017 End: 06-29-2017 take 1 tablet by mouth every six hours Oxycodone-Acetaminophen Discontinued 1 TAB PO Q6H June 23, 2017 June 28, 2017 11:02pm Comment on above: Take 1-2 tablets by mouth every 6 hours as needed. atenolol 50 mg / chlorthalidone 25 mg oral tablet (20 sources) Thiazide-like Diuretic, beta-Adrenergic Ricki Start: take 1 tablet by mouth once daily atenolol-chlorthalido ne (Tenoretic) 50-25 MG tablet Indications: Primary hypertension (CMS/HCC) TAKE 1 TABLET BY MOUTH EVERY DAY 90 tablet 2 12/30/2023 Active Start: 04-07-2023 atenolol-chlor thalidone 50 mg-25 mg Tab Refill(s) 0 Start Date: 04/07/23 Status: Ordered Start: 10-05-2021 take 1 tablet by jimmy th once daily atenolol-chlorthalidone (Tenoretic) 50-2 5 MG tablet Indications: Primary hypertension (CMS/HCC) Take 1 tablet by mouth Daily 90 tablet 3 06/17/2023 Active Comment on above: Take 1 tablet by jimmy th once daily. azithromycin 250 mg oral tablet (6 sources) Macrolide Antimicrobial Start: 2023 azithromycin (Zithromax) 250 MG tablet Indications: URI, acute Take 2 tablets on day 1, then take 1 tablet for 4 days by mouth 6 tablet 12/22/2023 Active bisacodyl 5 mg delayed release oral tablet (1 source) Stimulant Laxative Start: 2022 take 2 tablets by mouth once daily as needed for constipation bisacodyl 5 MG EC tablet Take 2 tablets by mouth daily as needed for Constipation 10 tablet 0 04/11/2022 Active brompheniramine maleate 0.4 mg/ml / dextromethorphan hydrobromide 2 mg/ml / pseudoephedrine hydrochloride 6 mg/ml oral solution (6 sources) alpha-Adrenergic Agonist, Uncompetitive X-hshukl-M-aspartate Receptor Antagonist, Sigma-1 Agonist Start: 2023 brompheniramine-ps eudoephedrine-DM 30-2-10 MG/5ML syrup Indications: URI, acute Take 10 mL by mouth 4 (four) times a day as needed for cough or congestion (q6hrs) 200 mL 12/22/2023 Active 12 hr buPROPion hydrochloride 150 mg extended release oral tablet (3 sources) Aminoketone Start: 2021 take 150 mg by mouth once daily Bupropion Hcl Active 150 MG PO Daily October 04, 2021 11:00pm take 1 tablet by mouth twice ney ly buPROPion (WELLBUTRIN SR) 150 MG extended release tablet Take 150 mg by mouth 2 times daily 0 Active busPIRone hydrochloride 15 mg oral tablet (3 sources) Start: 10-05-2021 take 15 mg by mouth once daily Buspirone Active 15 MG PO Daily October 04, 2021 11:00pm Qfuazufxaf-QNQH-Ebysj ine (FIORICET PO) (1 source) Start: 08-17-2019 Butalbital-APA P-Ca ffeine (FIORICET PO) Refill(s) 0 0 08/17/2019 Active 2 ml dicyclomine hydrochloride 10 mg/ml injection (6 sources) Anticholinergic Start: 04-11-2022 dicyclomine (BENTYL) injection 20 mg Start: 04-11-2022 take 1 capsule by mo [facility] every six hours as needed for pain dicyclomine (BENTYL) 10 MG capsule Take 1 capsule by mouth every 6 hours as needed (for pain) 20 capsule 1 04/11/2022 Active Start: 08-21-2018 End: 10-05-2021 take 20 mg by mouth twice daily Dicyclomine Discontinu ed 20 MG PO Twice daily August 20, 2018 11:00pm October 05, 2021 3:12pm Start: 08-19-2018 End: 08-21-2018 take 20 mg by mouth once daily Dicyclomine Discontinue d 20 MG PO Daily August 18, 2018 11:00pm August 21, 2018 9:17am enteric contrast (will be provided with radiology test) (10 sources) Start: 05-19-2023 enteric contrast (will be provided with radiology test) Indications: Epigastric abdominal pain For CT Chest Abdomen WO order Administer, As Directed One Time Only, via Oral, Rectal, both Oral and Rectal, Enteric Tube, Stoma or Indwelling Catheter, Enteric Contrast as designated per enteric contrast guidelines 1 Each 0 05/19/2023 Active Comment on above: For CT Chest Abdomen WO order Administer, As Directed One Time Only, via Oral, Rectal, both Oral and Rectal, Enteric Tube, Stoma or Indwelling Catheter, Enteric Contrast as designated per enteric contrast guidelines esomeprazole 40 mg delayed release oral capsule (7 sources) Proton Pump Inhibitor Start: 05-13-2023 take 1 capsule by mouth once esomeprazole (NEXIUM) 40 mg capsule Take 1 capsule by mouth every afternoon. 0 05/13/2023 Active Comment on above: Take 1 capsule by mo [facility] every afternoon. estrogens, conjugated (correction) 0.625 mg/ml vaginal cream (1 source) Estrogen Start: 10-22-2022 Estrogens Conjugated (Premarin) 0.625 MG/GM cream Indications: Hormone imbalance Insert 1 g into the vagina in the morning. Take 1 gram nightly for 1 month, then twice weekly thereafter.. 30 g 3 10/22/2022 Active famotidine 40 mg oral tablet (18 sources) Histamine-2 Receptor Antagonist Start: 09-17-2023 take 1 tablet by mouth once daily famotidine (Pepcid) 40 MG tablet Indications: Gastroesophageal Reflux Disease Take 1 tablet (40 mg) by mouth Daily 30 tablet 5 09/17/2023 Active Start: 04-23-2023 take 1 tablet by jimmy twice daily famotidine (PEPCID) 20 mg tablet Take 20 mg by mouth two times a day. 0 04/23/2023 Active Start: 04-07-2023 End: 07-06-2023 take 1 tablet by mouth once daily at bedtime Pepcid 20 mg Tab 20 mg = 1 tab(s), Oral, Once a day (at bedtime), X 90 day(s), # 90 tab(s), Refills(s) 0, Pharmacy: [facility]/pharmacy #[id number], 157, cm, 04/07/23 10:57:00 EST, Height/Length Dosing, 65.7, kg, 04/07/23 10:57:00 EST, Weight Dosing Start Date: 04/07/23 Stop Date: 07/06/23 Status: Ordered Comment on above: Take 20 mg by mouth two times a day. hydrOXYzine pamoate 25 mg oral capsule (17 sources) Antihistamine Start: take 1 capsule by mouth every eight hours for anxiety hydrOXYzine pamoate (Vistaril) 25 MG capsule Indications: Anxiety and depression (CMS/HCC) Take 1 capsule (25 mg) by mouth every 8 (eight) hours if needed for anxiety 30 capsule 5 09/15/2023 Active Start: 10-05-2021 take 1 capsule by mo [facility] every eight hours as needed hydrOXYzine pamoate (VISTARIL) 25 mg capsule Take 25 mg by mouth three times a day as needed. 0 10/05/2021 Active Start: 10-05-2021 take 1 capsule by mo ut every eight hours for anxiety hydrOXYzine pamoate (Vistaril) 25 MG capsule Indications: Anxiety and depression (CMS/HCC) Take 1 capsule (25 mg) by mouth every 8 (eight) hours if needed for anxiety. 30 capsule 5 08/21/2022 Active Comment on above: Take 25 mg by mouth three times a day as needed. lamoTRIgine 200 mg oral tablet (20 sources) Mood Stabilizer, Anti-epileptic Agent Start: 06-17-2023 take 1 tablet by mouth once daily lamoTRIgine (LaMICtal) 200 MG tablet Indications: Bipolar affective disorder, remission status unspecified (CMS/HCC) , Anxiety and depression (CMS/HCC) Take 1 tablet (200 mg) by mouth Daily 90 tablet 3 06/17/2023 Active Start: 08-21-2022 take 1 tablet by jimmy th once daily lamoTRIgine (LaMICtal) 200 MG tablet Indications: Bipolar affective disorder, remission status unspecified (CMS/HCC) , Anxiety and depression (CMS/HCC) Take 1 tablet (200 mg) by mouth 1 (one) time each day at the same time. 30 tablet 5 08/21/2022 Active Start: 08-17-2019 Lamictal Refil ls(s) 0 Start Date: 08/17/19 Status: Ordered Start: 10-08-2016 take 1 tablet by jimmy th twice daily lamoTRIgine (LAMICTAL) 200 mg tablet Take 200 mg by mouth two times a day. 0 10/08/2016 Active Start: 10-08-2016 End: 12-01-2017 take 200 mg by mouth once daily Lamotrigine Discontinu ed 200 MG PO Daily November 19, 2016 11:00pm December 01, 2017 2:02pm Comment on above: Take 200 mg by mouth two times a day. naloxone hydrochloride 40 mg/ml nasal spray (4 sources) Opioid Antagonist Start: naloxone 4 mg/0.1 mL nasal spray 4 mg, Nasal, As Directed, for suspected overdose symptoms, # 1 kit(s), Refills(s) 0 Start Date: 04/07/23 Status: Ordered naproxen 250 mg oral tablet (1 source) Nonsteroidal Anti-inflammatory Drug Start: take 1 tablet by mouth twice daily as needed for pain naproxen (NAPROSYN) 250 MG tablet Take 1 tablet by mouth 2 times daily as needed for Pain 20 tablet 5 04/11/2022 Active nitrofurantoin, macrocrystals 25 mg / nitrofurantoin, monohydrate 75 mg oral capsule (1 source) Nitrofuran Antibacterial Start: End: take 1 capsule by mouth twice daily nitrofurantoin, macrocrystal-monohydr ate, (MACROBID) 100 MG capsule Take 1 capsule by mouth 2 times daily for 10 doses 10 capsule 0 04/11/2022 04/16/2022 Active ondansetron 4 mg disintegrating oral tablet (20 sources) Serotonin-3 Receptor Antagonist Start: ondansetron ODT (Zofran-ODT) 4 MG disintegrating tablet Indications: Headache DISSOLVE 1 TABLET ON THE TONGUE EVERY 8 HOURS NEEDED 18 tablet 2 09/15/2023 Active Start: 04-11-2022 End: 04-11-2022 ondansetron (ZOFRAN) injecti on 4 mg Start: 12-01-2017 take 1 tablet by jimmy th every eight hours as needed ondansetron orally disintegrating (ZOFRAN ODT) 4 mg disintegrating tablet Take 4 mg by mouth every 8 hours as needed. 0 12/01/2017 Active Start: 12-01-2017 take 1 tablet by jimmy th every six hours as needed for nausea Zofran 4 mg Tab 4 mg = 1 tab(s), Oral, q6hr, PRN Nausea, Take one tab by mouth every six hours as needed for nausea, # 10 tab(s), Refills(s) 0 Start Date: 03/13/21 Status: Ordered Comment on above: Take 4 mg by mouth e very 8 hours as needed. oxaprozin 600 mg oral tablet (16 sources) Nonsteroidal Anti-inflammatory Drug Start: 3 take 1 tablet by mouth in the morning oxaprozin (Daypro) 600 MG tablet Indications: Unspecified thoracic, thoracolumbar and lumbosacral intervertebral disc disorder Take 1 tablet (600 mg) by mouth in the morning and 1 tablet (600 mg) before bedtime. 180 tablet 3 06/17/2023 Active Start: 08-12-2022 take 1 tablet by jimmy in the morning oxaprozin (Daypro) 600 MG tablet Indications: Unspecified thoracic, thoracolumbar and lumbosacral intervertebral disc disorder TAKE 1 TABLET (600 MG) BY MOUTH IN THE MORNING AND 1 TABLET (600 MG) BEFORE BEDTIME. 60 tablet 3 01/13/2023 Active take 2 tablets by mo [facility] twice daily oxaprozin (DAYPRO) 600 MG tablet Take 1,200 mg by mouth 2 times daily 0 Active Comment on above: Take 600 mg by mouth once daily. pantoprazole 20 mg delayed release oral tablet (7 sources) Proton Pump Inhibitor Start: 4 take 2 tablets by mouth twice daily Pantoprazole (Protonix) 20 mg tablet,delayed release (DR/EC) Active 40 MG PO Twice daily 60 March 30, 2023 12:00am Start: 03-24-2023 take 1 tablet by jimmy th once daily Pantoprazole (Protonix) 40 mg tablet,delayed release (DR/EC) Active 40 MG PO Daily 14 March 24, 2023 12:00am Start: 03-13-2021 take 1 tablet by jimmy th once daily pantoprazole 40 mg Oral EC Tab 40 mg = 1 tab(s), Oral, Daily, # 30 tab(s), Refills(s) 0 Start Date: 03/13/21 Status: Ordered PARoxetine hydrochloride 30 mg oral tablet (20 sources) Serotonin Reuptake Inhibitor Start: 08-17-2019 paroxetine Refills(s ) 0 Start Date: 08/17/19 Status: Ordered Start: 11-20-2016 take 60 mg by mouth once daily Paroxetine Hcl Active 60 MG PO Daily November 19, 2016 11:00pm Start: 10-08-2016 take 2 tablets by mo [facility] once daily PARoxetine (Paxil) 30 MG tablet Indications: Bipolar affective disorder, remission status unspecified (CMS/HCC) Take 2 tablets (60 mg) by mouth Daily 180 tablet 3 06/17/2023 Active take 1 tablet by jimmy at bedtime PARoxetine (PAXIL) 10 MG tablet Take 10 mg by mouth at bedtime 0 Active PARoxetine (PAXI L) 20 MG tablet Take 30 mg by mouth every morning 0 Active Comment on above: Take 60 mg by mouth once daily. polymyxin b [id number] unt/ml / trimethoprim 1 mg/ml ophthalmic solution (3 sources) Dihydrofolate Reductase Inhibitor Antibacterial, Polymyxin-class Antibacterial Start: 12-22-19 End: 01-01-20 trimethoprim-polymyxi n b (Polytrim) ophthalmic solution Indications: Bacterial conjunctivitis of both eyes Administer 1 drop into affected eye(s) in the morning and 1 drop at noon and 1 drop in the evening and 1 drop before bedtime. Do all this for 10 days. 10 mL 1 12/22/2023 01/01/2024 Active pregabalin 200 mg oral capsule (20 sources) Start: 12-29-19 End: 01-25-20 take 1 capsule by mouth in the morning pregabalin (Lyrica) 200 MG capsule Indications: Complex regional pain syndrome type 1, affecting unspecified site , Disorder of intervertebral disc of lumbar spine , Chronic pain syndrome , Neuropathy Take 1 capsule (200 mg) by mouth in the morning and 1 capsule (200 mg) before bedtime. 60 capsule 01/26/2024 Active Start: 11-19-2023 End: 12-27-2023 take 1 capsule by mouth in the morning pregabalin (Lyrica) 200 MG capsule Indications: Complex regional pain syndrome type 1, affecting unspecified site , Disorder of intervertebral disc of lumbar spine , Chronic pain syndrome , Neuropathy Take 1 capsule (200 mg) by mouth in the morning and 1 capsule (200 mg) before bedtime. 60 capsule 11/19/2023 12/27/2023 Discontinued (Reorder) Start: 04-24-2023 take 1 capsule by mo uth in the morning pregabalin (Lyrica) 200 MG capsule Indications: Complex regional pain syndrome type 1, affecting unspecified site , Disorder of intervertebral disc of lumbar spine , Chronic pain syndrome , Neuropathy Take 1 capsule (200 mg) by mouth in the morning and 1 capsule (200 mg) before bedtime. 60 capsule 0 04/24/2023 Active Start: 03-25-2023 End: 04-24-2023 take 1 capsule by mouth three times daily pregabalin 200 mg Cap 200 mg = 1 cap(s), Oral, TID, Refills(s) 0 Start Date: 04/07/23 Status: Ordered Start: 05-19-2022 take 1 tablet by jimmy th once daily pregabalin (LYRICA) 150 mg capsule Take 1 tablet by mouth once daily. 0 05/19/2022 Active Comment on above: Take 1 tablet by jimmy th once daily. promethazine hydrochloride 25 mg oral tablet (6 sources) Phenothiazine Start: 03-17-19 take 1 tablet by mouth three times daily promethazine 25 mg Tab 25 mg = 1 tab(s), Oral, TID, # 15 tab(s), Refills(s) 0, Pharmacy: [facility], 157, cm, 03/17/21 11:23:00 EST, Height/Length Dosing, 58, kg, 03/17/21 11:23:00 EST, Weight Dosing Start Date: 03/17/21 Status: Ordered sodium chloride flush 0.9 % injection 3 mL (1 source) Start: 04-11-19 23 sodium chloride flush 0.9 % injection 3 mL sucralfate 1000 mg oral tablet (8 sources) Aluminum Complex Start: 04-07-19 sucralfate 1 g Tab Refills(s) 0 Start Date: 04/07/23 Status: Ordered Start: 03-24-2023 take 1 tablet by jimmy th every six hours Sucralfate (Carafate) 1 gram tablet Active 1 GM PO Q6H 56 March 24, 2023 12:00am Start: 10-05-2021 take 1 tablet by jimmy th twice daily Sucralfate (Carafate) 1 gram tablet Active 1 GM PO Twice daily 10 October 05, 2021 4:46pm tamsulosin hydrochloride 0.4 mg oral capsule (1 source) alpha-Adrenergic Ricki Start: 04-11-2022 End: 04-21-2022 take 1 capsule by mouth once daily tamsulosin (FLOMAX) 0.4 MG capsule Take 1 capsule by mouth daily for 10 days 10 capsule 0 04/11/2022 04/21/2022 Active tiZANidine 4 mg oral tablet (20 sources) Central alpha-2 Adrenergic Agonist Start: 10-25-2022 End: 01-08-2024 take 1 tablet by mouth three times daily as needed tiZANidine (Zanaflex) 4 MG tablet Indications: Other chronic pain TAKE 1 TABLET BY MOUTH THREE TIMES A DAY NEEDED 270 tablet 1 01/08/2024 Active take 1 capsule by mo [facility] three times daily tiZANidine HCl (ZANAFLEX) 4 mg capsule T yousuf 4 mg by mouth three times a day. 0 Active take 1 tablet by jimmy th every six hours as needed tiZANidine (ZANAFLEX) 4 MG tablet Take 4 mg by mouth every 6 hours as needed 0 Active Comment on above: Take 4 mg by mouth t hree times a day. traMADol hydrochloride 50 mg oral tablet (8 sources) Opioid Agonist Start: 10-05-2021 take 50 mg by mouth once daily Tramadol Active 50 MG PO Daily October 04, 2021 11:00pm Start: 08-17-2019 tramadol Refil ls(s) 0 Start Date: 08/17/19 Status: Ordered Start: 06-23-2017 End: 08-19-2018 Tramadol Discontinued 50 MG PO As Directed June 22, 2017 11:00pm August 19, 2018 1:20pm valACYclovir 500 mg oral tablet (7 sources) Herpesvirus Nucleoside Analog DNA Polymerase Inhibitor, Herpes Simplex Virus Nucleoside Analog DNA Polymerase Inhibitor, Herpes Zoster Virus Nucleoside Analog DNA Polymerase Inhibitor Start: 07-22-2023 take 1 tablet by mouth in the morning, then take 1 tablet by mouth in the evening, then take 1 tablet by mouth at bedtime valACYclovir (Valtrex) 500 MG tablet Indications: History of cold sores Take 1 tablet (500 mg) by mouth in the morning and 1 tablet (500 mg) in the evening and 1 tablet (500 mg) before bedtime. 21 tablet 1 07/22/2023 Active Zofran ODT 4 mg Tab-Dis (4 sources) Start: 02-27-2021 take 1 tablet by mouth every eight hours as needed for nausea Zofran ODT 4 mg Tab-Dis 4 mg = 1 tab(s), Oral, q8hr, PRN Nausea, # 12 tab(s), Refills(s) 0, Pharmacy: [facility], 157, cm, 02/26/21 23:25:00 EST, Height/Length Dosing, 58.8, kg, 02/26/21 23:25:00 EST, Weight Dosing Start Date: 02/27/21 Status: Ordered Completed/Discontinued Medications Medication Drug Class(es) Dates Sig (Normalized) Sig (Original) alendronic acid 40 mg oral tablet (9 sources) Bisphosphonate Start: 10-25-2016 Alendronate Sodium 40 MG TABS TAKE 1 TABLET Daily for 6 weeks Quantity: 45 Refills: 0 Ordered: 25-Oct-2016 Madeleine Marshall MD Start : 25-Oct-2016 Active cephalexin 500 mg oral capsule (2 sources) Cephalosporin Antibacterial Start: 06-23-2017 End: 08-21-2018 take 500 mg by mouth every twelve hours Cephalexin Discontinued 500 MG PO Q12H June 22, 2017 11:00pm August 21, 2018 9:17am famotidine (PEPCID) 20 mg in sodium chloride (PF) 0.9 % 10 mL injection (1 source) Start: 04-11-2022 End: 04-11-2022 famotidine (PEPCID) 20 mg in sodium chloride (PF) 0.9 % 10 mL injection ibuprofen 600 mg oral tablet (2 sources) Nonsteroidal Anti-inflammatory Drug Start: 11-20-2016 End: 07-29-2022 take 600 mg by mouth every eight hours Ibuprofen Discontinued 600 MG PO Q8H November 19, 2016 11:00pm October 05, 2021 3:12pm 1 ml ketorolac tromethamine 15 mg/ml cartridge (1 source) Nonsteroidal Anti-inflammatory Drug, Cyclooxygenase Inhibitor Start: 04-11-2022 End: 04-11-2022 ketorolac (TORADOL) injection 15 mg 1 ml morphine sulfate 4 mg/ml injection (1 source) Opioid Agonist Start: 04-11-2022 End: 04-11-2022 morphine sulfate (PF) injection 2 mg Start: 04-11-2022 End: 04-11-2022 morphine sulfate (PF) inject ion 2 mg 50 ml sodium chloride 9 mg/m l injection (1 source) Start: 04-11-2022 End: 04-11-2022 0.9 % sodium chloride bolus topiramate 25 mg oral tablet (1 source) Start: 10-25-2016 Topiramate 25 MG Oral Tablet 25mg tabs titrate to 100mg bid per protocol faxed to pharm Quantity: 196 Refills: 0 Madeleine Marshall MD Start : 25-Oct-2016 Active Problems Active Problems Problem Classification Problem Date Documented Da te Episodic/Chronic Anxiety disorders (16 sources) Anxiety attack ; Translations: [Panic disorder [episodic paroxysmal anxiety]] Onset: 7 12-17-2022 Chronic Chronic kidney disease (8 sources) Chronic kidney disease stage 3A ; Translations: [Stage 3a chronic kidney disease (HCC)] Onset: 3 12-17-2022 Chronic Complication of device; implant or graft (2 sources) Pain due to internal orthopedic prosthetic devices, implants and grafts, initial encounter; Translations: [Pain due to internal orthopedic prosthetic devices, implants and grafts, initial encounter] Onset: 4 Episodic Esophageal disorders (18 sources) Gastroesophageal reflux disease without esophagitis; Translations: [Gastro-esophageal reflux disease without esophagitis] Onset: 4 Chronic Essential hypertension (20 sources) Essential (primary) hypertension; Translations: [Hypertensive disorder] Onset: 7 08-17-2019 Chronic Fluid and electrolyte disorders (2 sources) Dehydration; Translations: [Hypokalemia] Onset: 3 Episodic Fracture of upper limb (6 sources) Fracture of unspecified phalanx of right little finger, initial encounter for closed fracture; Translations: [Displaced fracture of middle phalanx of right middle finger, initial encounter for closed fracture] Onset: 2 Episodic Gastritis and duodenitis (2 sources) Gastritis; Translations: [Gastritis, unspecified, without bleeding] 03-24-2023 Episodic Headache; including migraine (1 source) Headache; Translations: [Nonintractable headache, unspecified chronicity pattern, unspecified headache type] 01-28-2024 Episodic Immunizations and screening for infectious disease (2 sources) Vaccination needed; Translations: [Encounter for immunization] 12-22-2023 Episodic Inflammation; infection of eye (except that caused by tuberculosis or sexually transmitteddisease) (4 sources) Conjunctivitis; Translations: [Unspecified conjunctivitis] 06-23-2017 Episodic Mood disorders (18 sources) Bipolar disorder, currently in remission, most recent episode unspecified; Translations: [Bipolar disorder, unspecified] Onset: 7 08-17-2019 Chronic Nonspecific chest pain (3 sources) Chest pain; Translations: [Chest pain, unspecified] Onset: 4 03-24-2023 Episodic Osteoarthritis (13 sources) Primary osteoarthritis, right hand; Translations: [Arthritis] Onset: 3 08-17-2019 Chronic Other acquired deformities (5 sources) Contracture of joint; Translations: [Contracture of joint, site unspecified] Chronic Other acquired deformities (3 sources) Contracture, right hand; Translations: [Contracture, right hand] Onset: 3 Chronic Other acquired deformities (8 sources) Contracture of joint of right hand; Translations: [Contracture, right hand] Onset: 3 12-17-2022 Chronic Other acquired deformities (1 source) Unspecified acquired deformity of hand, right hand; Translations: [Unspecified acquired deformity of hand, right hand] Onset: 3 Episodic Other aftercare (1 source) Other terminal carman (current) drug therapy; Translations: [OTH ASSISTED CURRENT DRUG THERAPY] Onset: 3 Episodic Other connective tissue disease (9 sources) Foot pain; Translations: [Pain in limb] Episodic Other gastrointestinal disorders (8 sources) Irritable bowel syndrome; Translations: [Irritable bowel syndrome without diarrhea] Onset: 3 12-17-2022 Chronic Other gastrointestinal disorders (1 source) Constipation; Translations: [Constipation, unspecified] Episodic Other gastrointestinal disorders (2 sources) Mucus in stool; Translations: [Other fecal abnormalities] 08-21-2018 Episodic Other liver diseases (12 sources) Steatosis of liver; Translations: [Fatty (change of) liver, not elsewhere classified] Onset: 4 Chronic Other lower respiratory disease (2 sources) Nodule of lung; Translations: [Solitary pulmonary nodule] 03-24-2023 Episodic Other nervous system disorders (1 source) Other chronic pain; Translations: [OTHER CHRONIC PAIN] Onset: 2 Chronic Other nervous system disorders (1 source) Chronic pain syndrome; Translations: [CHRONIC PAIN SYNDROME] Onset: 2 Chronic Other nervous system disorders (1 source) Complex regional pain syndrome I of left lower limb; Translations: [Complex regional pain syndrome I of left lower limb] Onset: 3 Chronic Other nervous system disorders (16 sources) Complex regional pain syndrome type I of left lower limb; Translations: [Reflex sympathetic dystrophy of the lower limb] Onset: 3 12-17-2022 Chronic Other nervous system disorders (11 sources) Complex regional pain syndrome type I; Translations: [Complex regional pain syndrome I, unspecified] Onset: 1 04-24-2023 Chronic Other nervous system disorders (3 sources) Chronic pain syndrome; Translations: [Chronic pain syndrome] 04-24-2023 Chronic Other nervous system disorders (11 sources) Neuropathy; Translations: [Polyneuropathy, unspecified] Onset: 9 04-24-2023 Chronic Other nervous system disorders (9 sources) Chronic pain; Translations: [Other chronic pain] Onset: 3 08-15-2022 Chronic Other nervous system disorders (5 sources) Postoperative pain ; Translations: [Other acute postoperative pain] Episodic Other nervous system disorders (3 sources) Other acute postprocedural pain; Translations: [Other acute postprocedural pain] Onset: 3 Episodic Other screening for suspected conditions (not mental disorders or infectious disease) (5 sources) Imaging result abnormal; Translations: [Abnormal findings on diagnostic imaging of other specified body structures] Onset: 4 Chronic Other screening for suspected conditions (not mental disorders or infectious disease) (1 source) Screening for malignant neoplasm of colon done; Translations: [Encounter for screening for malignant neoplasm of colon] Onset: 4 Episodic Other upper respiratory infections (2 sources) Acute upper respiratory infection; Translations: [Acute upper respiratory infection, unspecified] 12-22-2023 Episodic Residual codes; unclassified (1 source) Acquired absence of other specified parts of digestive tract; Translations: [ACQ ABSENCE OTH PART DIGESTV TRACT] Onset: 3 Episodic Residual codes; unclassified (1 source) Acquired absence of both cervix and uterus; Translations: [ACQUIRED ABSENCE BOTH CERVIX AND UTERUS] Onset: 3 Episodic Residual codes; unclassified (2 sources) Family history of cancer of colon; Translations: [Family history of malignant neoplasm of digestive organs] 08-21-2018 Episodic Residual codes; unclassified (2 sources) Pain, unspecified; Translations: [Pain, unspecified] Onset: 4 Episodic Rheumatoid arthritis and related disease (1 source) Other specified spondylopathies, lumbar region; Translations: [OTH SPEC SPONDYLOPATHIES LUMBAR RGN] Onset: 2 Chronic Spondylosis; intervertebral disc disorders; other back problems (20 sources) Spondylosis without myelopathy or radiculopathy, lumbar region; Translations: [Other intervertebral disc degeneration, lumbar region] Onset: 2 Chronic Thyroid disorders (18 sources) Hypothyroidism; Translations: [Hypothyroidism, unspecified] Onset: 3 08-17-2019 Chronic Unclassified (1 source) LOW BACK PAIN, UNSPECIFIED; Translations: [LOW BACK PAIN, UNSPECIFIED] Onset: 2 Unclassified (4 sources) Patient encounter status 04-07-2023 Past or Other Problems Problem Classification Problem Date Documented Da te Episodic/Chronic Abdominal pain (20 sources) Flank pain; Translations: [Unspecified abdominal pain] Onset: 09-01-2021 Episodic Calculus of urinary tract (16 sources) Kidney stone; Translations: [Calculus of kidney] Onset: 06-10-2022 Episodic E Codes: Other specified and classifiable (1 source) Caught, crushed, jammed, or pinched between moving objects, initial encounter; Translations: [CAUGHT CRUSH/PINCH BTWN MOV OBJ INT] Onset: 11-05-2021 Episodic Genitourinary symptoms and ill-defined conditions (8 sources) Delay when starting to pass urine; Translations: [Hesitancy of micturition] Onset: 12-14-2020 12-17-2022 Episodic Joint disorders and dislocations; trauma-related (16 sources) Dislocation of proximal interphalangeal joint of right little finger, initial encounter; Translations: [Dislocation of digit of hand] Onset: 11-01-2021 12-17-2022 Episodic Nausea and vomiting (20 sources) Nausea with vomiting, unspecified; Translations: [Nausea] Onset: 09-20-2021 Episodic Other connective tissue disease (6 sources) Pain in right finger(s); Translations: [PAIN IN RIGHT FINGERS] Onset: 10-31-2021 Episodic Other connective tissue disease (1 source) Pain in right leg; Translations: [PAIN IN RIGHT LEG] Onset: 09-13-2021 Episodic Other connective tissue disease (2 sources) Trigger finger, unspecified finger; Translations: [Trigger finger, unspecified finger] Onset: 11-05-2023 Episodic Other gastrointestinal disorders (1 source) Constipation, unspecified; Translations: [CONSTIPATION UNSPECIFIED] Onset: 09-05-2021 Episodic Other gastrointestinal disorders (13 sources) Dysphagia; Translations: [Dysphagia, unspecified] Onset: 06-10-2022 Episodic Other gastrointestinal disorders (12 sources) Heartburn; Translations: [Heartburn] Onset: 06-10-2022 04-06-2021 Episodic Other lower respiratory disease (8 sources) Solitary nodule of lung; Translations: [Solitary pulmonary nodule] Onset: 12-17-2022 12-17-2022 Episodic Other nervous system disorders (1 source) Complex regional pain syndrome type I of left lower limb; Translations: [Complex regional pain syndrome type 1 of left lower extremity] Residual codes; unclassified (8 sources) Insomnia; Translations: [Insomnia, unspecified] Onset: 01-23-2018 12-17-2022 Episodic Residual codes; unclassified (15 sources) History of fundoplication; Translations: [Other specified postprocedural states] Onset: 07-02-2023 07-02-2023 Episodic Spondylosis; intervertebral disc disorders; other back problems (5 sources) Intervertebral disc disorders with radiculopathy, lumbar region; Translations: [Radiculopathy, lumbar region] Onset: 08-21-2021 Episodic Results Test Name Value Interpretation Reference Range Facility 36on 02-09-2024 36 Attempted to call patient, phone kept ringing, no VM [facility] 36on 02-04-2024 36 Pt calling non incis ional pain and swelling and wanted to speak with Dr Nation nurse. [facility] Office Visiton 01-14-2024 Follow-up visit [id number] Ruddy Camarillo er N 1975 F Date Provider Department Center 01/14/2024 VADIM KISER MP ORTHO MPORTHO No family history on file Level of Service:63818 DC POSTOP FOLLOW UP VISIT RELATED TO ORIGINAL PX Reason for Visit and Comments: Post-op [483] Pain [136] [facility] HPon 01-07-2024 HP History Of Present Illness Tasneem Camarillo is a 48 y.o. female presenting with Retained symptomatic hardware of the right small finger after a fusion of the PIP joint. She also has a symptomatic trigger digit of the ring finger. She is admitted today for a removal of her hardware and trigger finger release.. Past Medical History She has a past medical history of Anxiety, Asthma, Back pain, Bipolar 1 disorder (CMS/HCC), CRPS (complex regional pain syndrome type I), Delayed emergence from general anesthesia, Depression, Dysphagia, GERD (gastroesophageal reflux disease), Hiatal hernia, Kidney stone, Migraines, and Painful orthopaedic hardware (CMS/HCC). Surgical History She has a past surgical history that includes Appendectomy; Cholecystectomy; Hernia repair; Hysterectomy; Finger surgery (Right, 11/25/2022); Upper gastrointestinal endoscopy (07/02/2023); Colonoscopy (10/11/2021); and Finger surgery (Right, 05/27/2022). Social History She reports that she has never smoked. She has never used smokeless tobacco. She reports that she does not currently use alcohol. She reports that she does not use drugs. Family History No family history on file. Allergies Amoxicillin-pot clavulanate, Metoclopramide, Reglan [metoclopramide hcl], Sulfa (sulfonamide antibiotics), and Sumatriptan Medications Medications Prior to Admission Medication Sig Dispense Refill Last Dose atenoloL-chlorthalidone (Tenoretic) 50-25 mg tablet Take 1 tablet by mouth in the morning. 01/06/2024 butalbital-acetaminophen- caff 50-325-40 mg tablet Take 1 tablet by mouth every 4 (four) hours if needed for headaches. Past Month hydrOXYzine pamoate (Vistaril) 25 mg capsule TAKE 1 CAPSULE BY MOUTH EVERY 8 HOURS NEEDED FOR ANXIETY Past Month lamoTRIgine (LaMICtal) 200 mg tablet Take 200 mg by mouth at bedtime. Past Week multivit-min/iron/FA/vit K/lut ([employer] WOMEN 50 PLUS ORAL) Take by mouth 1 (one) time each day. Past Week oxaprozin (Daypro) 600 mg tablet Take 600 mg by mouth two times daily. 01/06/2024 PARoxetine (Paxil) 30 mg tablet Take 60 mg by mouth in the morning. Past Week pregabalin (Lyrica) 200 mg capsule Take 200 mg by mouth two times daily. 01/06/2024 tiZANidine (Zanaflex) 4 mg capsule 2 mg at bedtime. 01/06/2024 bisacodyl (Dulcolax) 5 mg EC tablet 5 mg if needed each day. Unknown ondansetron (Zofran) 4 mg tablet Take 4 mg by mouth every 8 (eight) hours if needed. Unknown ondansetron ODT (Zofran-ODT) 4 mg disintegrating tablet DISSOLVE 1 TABLET ON THE TONGUE EVERY 8 HOURS NEEDED Unknown oxyCODONE-acetaminophen (Percocet) 5-325 mg tablet TAEK 1 TABLET BY MOUTH DAILY NEEDED Unknown polymyxin B sulf-trimethoprim (Polytrim) ophthalmic solution INSTILL 1 DROP INTO AFFECTED EYE EVERY 4 HOURS FOR 7 DAYS Unknown Review of Systems Last Recorded Vitals Visit Vitals BP 122/67 Pulse 51 Temp 36 ???C (96.8 ???F) (Temporal) Resp 18 Ht 1.575 m (5' 2 ) Wt 64.1 kg (141 lb 5 oz) SpO2 100% BMI 25.85 kg/m??? OB Status Hysterectomy Smoking Status Never BSA 1.67 m??? Physical Exam Constitutional: Appearance: Normal appearance. Cardiovascular: Rate and Rhythm: Normal rate. Pulmonary: Effort: Pulmonary effort is normal. Musculoskeletal: Comments: Right hand: She has some very mild tenderness over the hardware. More importantly of the extensor mechanism is scarred down and she has no active extension at the DIP joint of the small finger. She has tenderness to palpation over the A1 region of the ring finger. Neurological: Mental Status: She is alert. Relevant Lab Results No results found for: NA , K , CL , CO2 , BUN , CREATININE , GLUCOSE , CALCIUM , ANIONGAP , EGFR , BCR Relevant Imaging Results XR fingers 2+ views right Narrative: X-ray fingers 2+ views right. History of pain. Postop. Check hardware. 3 images COMPARISON: 08/06/2023 and 05/07/2023 Impression: Plain screw fixation across the PIP joint of the fifth digit is again noted. Hardware is well-positioned. Fusion has occurred. No acute complication is noted Electronically signed: Angeline Childers. Assessment/Plan Principal Problem: Painful orthopaedic hardware (CMS/HCC) Right small finger hardware removal, ring finger trigger digit release. [facility] NURSNOTEon 01-07-[address] chowdhury notified no ATB ordered. [facility] OPNOTEon 01-07-2024 OPNOTE Operative Note Patient: Tasneem Camarillo Date of Surgery: 01/07/2024 : 1975 Pre-operative Diagnosis: 1. Retained hardware PIP joint right small finger, 2. Trigger digit right ring finger Post-operative Diagnosis: same Operation: 1. Removal of retained hardware right small finger, 2. Trigger digit release right ring finger ([id number]) Surgeon: Vadim Chowdhury MD [facility] Consultant: Jerome Jesus MD Staff: Golf Ball Molder: Roel Paez RN; Bryanna Esparza RN Scrub Person: Josephine Mckinley CST [place] Golf Ball Molder: Roel Paez RN Anesthesia Type: Regional Indications: The patient is an 48 y.o. female with retained hardware after a PIP fusion of the right small finger because of a flexion contracture. The joint has fused. She has adhesions of the extensor mechanism to the plate and has no active extension at the DIP joint. I felt the removal of her hardware was indicated to try to improve her function. She also has developed a symptomatic trigger digit which has been worsening despite nonoperative treatments. We are going to address both problems today. She is brought to the operating room today for that purpose. The risks and benefits of the procedure were explained prior to surgery, and with good understanding it is agreed to proceed. Procedure: The patient is brought to the operating room and placed on the table in a supine position. Per the patient requested regional anesthetic had been administered per the anesthesia service in the holding area. A tourniquet is placed around the proximal right arm. She is given preoperative antibiotics and the right upper extremity is prepped and draped out in a sterile fashion. To begin the procedure, after standard timeout, the arm was exsanguinated with an Esmarch bandage and the tourniquet is inflated to 250 mmHg. We first turned our attention to the ring finger. A new incision is made over the A1 region. Blunt dissection was carried out through the subcutaneous tissue, and again superficial blood vessels were cauterized with the Bovie. Three Ragnell retractors were used to expose the flexor tendon sheath. The A1 hollis is initially opened up with a knife blade, in line with the tendon sheath. Switching back to a tenotomy scissor, the sheath was split distally to about the MP flexion crease on the skin and proximally until the sheath is completely free. On this finger, the tendons are also pulled out into the wound and have free excursion. This wound was irrigated with normal saline and closed with 5-0 Prolene suture. We then went to the small finger. Using a 15 blade we used the previous surgical scar on the dorsum of the finger. We sharply elevated the skin off of the extensor mechanism to develop a plane there. The extensor tendon was split down the midline and then using a Bovie we elevated that off of the plate. Once we had exposure of the plate the screws were all removed without difficulty and the plate was taken off. I used a freer elevator to undermine the extensor mechanism all the way to the DIP joint distally and tried to make sure it was completely free proximally and along the sides. The wounds irrigated with normal saline solution. The extensor is closed with [id number] sutures of 4-0 Vicryl. The skin is closed with 5-0 Prolene. A sterile dressing of Xeroflo gauze, 4 x 4 fluffs, Makenzie and an Ion bandage is applied. The tourniquet is released and the drapes were removed. Her arm is placed into a sling because of the regional block. She is brought to the recovery area in stable condition, having tolerated the procedure well. Estimate Blood Loss: Minimal Total IV Fluids: Per anesthesia record Specimens: No specimens collected Implants: Given to patient Complications: None Disposition: PACU Condition: Stable Vadim Chowdhury MD [facility] POCT GLUCOSE METER UNSOLICIT ED RESULTSon 01-07-2024 Glucose [Mass/Vol] 89 mg/dL Normal 70-105 [facility] Comment on above: Order Comment: Waive d Testing in the ED is performed under the ED CLIA certificate #[id number]. Result Comment: jenc k2 Performed By: #### L [id number] ####[facility] (BEAKER)[address] [place] [address] Urinalysis macro (dipstick) panel (U)on 12-22-2023 Bilirubin, UA Negative Negative - 4(70) +++ mg/dL [facility] Blood, UA Negative Negative - 50 Igor/mcL [facility] Clarity, UA Clear [facility] Color, UA Yellow [facility] [facility] Glucose, UA Negative Negative - 2000(110) ++++ mg/dL [facility] Interpretation and review of laboratory results Normal [facility] Ketones, UA Negative Negative - 160(16) ++++ mg/dL [facility] Leukocytes, UA Negative Negative - 500+++ Lashonda/mcL [facility] Nitrite, UA Negative Negative - Positive [facility] pH, UA 5.5 5 - 9 [facility] Protein, UA Negative Negative - 2000(20) ++++ mg/dL [facility] Spec Grav, UA 1.02 1 - 1.03 [facility] Urobilinogen, UA 0.2 0.2 - 12 mg/dL [facility]11-21-2023 36 Called for extension date on C9 for surgery. [facility] 36on 11-20-2023 36 New letter was made and is going to be sent to patient [facility] 36 Patient called back and would like you to call her back. She wants a letter that states she can go back to work the following Friday after surgery. Please call patient [phone] [facility] 36 Spoke with patient a nd informed her that I booked for the and the letter was sent to her via My Chart, she informed me that I can mail it and then the phone hung up. [facility] Orders Onlyon 11-20-2023 Orders Only [id number] CamarilloRuddy pierre N 1975 F Date Provider Department Center 11/20/2023 803-REGAN MOREL MP ORTHO MPORTHO No family history on file [facility] 36on 11-19-2023 36 Patient called to [facility] date of 01/06. She would like to know if she needs to come back to the office for an appointment before surgery? Is there any testing that needs completed before surgery? Please call patient [phone]. If unable to get through to her, she is requesting that you call her Pablo [phone] due to her not having good service at work. Patient is also requesting a letter to be wrote with attentive surgery date and the time time off work for afterward so she can prepare her work. [facility] 36 Spoke with patient. Informed patient of date of surgery. Patient agreeable to this date for surgery. [facility] 36 Spoke with patient, picked a date of 01/07/2024, phone got disconnected and I left a detailed message stating the surgery date again and said if that did not work please call back Please get an extension for this, Dr. Chowdhury does not have any open time before 01/06 [facility] 36on 11-18-2023 36 Attempted ot call pamela delatorre to schedule surgery. Lvm to call me back [address] authorization on file for SURGERY - RIGHT SMALL FINGER HARDWARE REMOVAL AND RIGHT RING FINGER TRIGGER RELEASE Valid 11/14/23-12/12/23 Please make sure all orders are in the chart and call patient to schedule [facility] 36on 11-17-2023 36 Patient talked with [facility] and surgery is approved and would like call back to schedule [facility] Telephoneon 11-17-2023 Telephone [id number] Sejal Camarilloh er N 1975 F Date Provider Department [place] 11/17/2023 [id number] PENA MP ORTHO MPORTHO No family history on file Reason for Visit and Comments: [facility] APPROVED [Other] [facility] 36on 11-11-2023 36 Sent to [place] [facility] Office Visiton 11-05-2023 Follow-[facility] [id number] [facility] 1975 [facility] Date Provider Department [place] 11/05/2023 VADIM KISER MP ORTHO MPORTHO No family history on file Level of Service:53409 DC OFFICE/OUTPATIENT ESTABLISHED LOW MDM 20 MIN Reason for Visit and Comments: Pain [136] [facility] Orders Onlyon 10-31-2023 Orders Only [id number] [facility] 1975 F Date Provider Department [place] 10/31/2023 803-REGAN MOREL MP ORTHO MPORTHO No family history on file [facility] Office Visiton 08-06-2023 Follow-up visit [id number] [facility] 1975 F Date Provider Department [place] 08/06/2023 VADIM KISER MP ORTHO MPORTHO No family history on file Level of Service:58571 DC OFFICE/OUTPATIENT ESTABLISHED LOW MDM 20 MIN Reason for Visit and Comments: Follow-up [912361] - Having pain, tightness and feels like something is pulling in the little finger. ff Pain [136] - Having pain, tightness and feels like something is pulling in the little finger. ff [facility] Operative Reporton Operative Report [id number]#[id number] [facility] Pathology Noteon 07-04-2023 Pathology Note [id number]#[id number] [facility] ANES POSTPROC EVALon 024 ANES POSTPROC EVAL HNO ID: [id number] Author: AURE JARRELL MD Service: ? Author Type: Anesthesiologist Type: Anesthesia Postprocedure Evaluation Filed: 07/02/2023 09:52 Note Text: POST ANESTHESIA EVALUATION NOTE : 1975 Procedure Summary Date: 07/02/23 Room / Location: Gastroenterology Anesthesia Start: 0850 Anesthesia Stop: Procedure: EGD DIAGNOSTIC Diagnosis: Epigastric abdominal pain (Dysphagia) Scheduled Providers: Nicanor Ferris MD; Aure Jarrell MD; Lacho Bullock MD Responsible Provider: Aure Jarrell MD Anesthesia Type: general ASA Status: 3 Anesthesia Type: general Airway Type: supplemental O2 Last Vitals Vitals Value Taken Time BP 96/61 07/02/23 0940 Temp 36 07/02/23 0951 HR SpO2 47 07/02/23 0940 Resp 18 07/02/23 0940 SpO2 100 % 07/02/23 0940 Post Anesthesia Patient Status Patient Evaluation: PACU. PACU/ICU Patient Condition: stable. Neurological Status: aware and responsive. Pulmonary Status: breathing comfortably on room air Airway Control: returned to baseline unsupported. Cardiovascular Status: stable. Pain Management: clinically adequate Postoperative Hydration: acceptable. Intraoperative Events: no significant anesthesia events Post Operative Nausea/Vomiting Status: no significant post operative nausea or vomiting Recommendation: continue current plan of care. Anesthesia Observations No Documentation SIGNATURE: Aure Jarrell MD PATIENT NAME: Tasneem Camarlilo DATE: July 02, 2023 TIME: 9:51 AM CSN: [id number] [facility] ANES PRE-OPon 07-02-2023 ANES PRE-OP HNO ID: [id number] Author: AURE JARRELL MD Service: ? Author Type: Anesthesiologist Type: Anesthesia Preprocedure Evaluation Filed: 07/02/2023 08:50 Note Text: ANESTHESIOLOGY DAY OF SURGERY NOTE : 1975 Procedure Information Date/Time: 07/02/23 0900 Scheduled providers: Nicanor Ferris MD; Aure Jarrell MD; Lcaho Bullock MD Procedure: EGD DIAGNOSTIC Location: Gastroenterology Estimated body mass index is 25.79 kg/m? as calculated from the following: Height as of this encounter: 157.5 cm (5' 2 ). Weight as of this encounter: 64 kg (141 lb). Most recent hematocrit and potassium results: No results found for this basename: HCT,HEMATOCRIT,K,POTASSIU M Relevant Problems CARDIO (+) HTN (hypertension) ENDO (+) Hypothyroidism GI (+) Gastroesophageal reflux disease without esophagitis Gastrointestinal (+) Nausea (+) S/P Yefri fundoplication (without gastrostomy tube) procedure I - PHYSICAL EVALUATION AIRWAY Patient intubated: No. Tracheostomy tube not present Mallampati: II. TM distance: >3 FB. Neck ROM: full ROM without neurological symptoms. Mouth opening: adequate. Short neck: no. Thick neck: no DENTAL Dental findings: teeth intact. II - ANESTHESIA PLAN ASA Score: 3 Anesthetic Plan: general Airway type: supplemental O2 NPO Status: adequate Beta Ricki Monitoring Plan Monitoring plan: standard ASA. Post Procedure Analgesic Plan Postoperative analgesic plan: per surgical service. Informed Consent Anesthetic risks, benefits, alternatives, personnel and consent discussed: yes. Patient / Responsible Alliance Party agrees to proceed: yes Patient / Surrogate agrees to blood products: blood products not planned Potential Anesthesia issues that may suggest increased risk of complications or contraindication to planned procedure: none. Vitals Value Taken Time BP 115/54 07/02/23820 Pulse 47 07/02/23820 Resp 16 07/02/23820 Temp 36 ?C (96.8 ?F) 07/02/23 08 SpO2 100 % 07/02/23820 Outpatient Medications as of 07/02/2023 Medication Sig - atenolol-chlorthalidone (TENORETIC) 50-25 mg per tablet Take 1 tablet by mouth once daily. - acetaminophen 325 mg-caffeine 40 mg-butalbital 50 mg (FIORICET) per tablet Take 1 tablet by mouth every 4 hours as needed. - esomeprazole (NEXIUM) 40 mg capsule Take 1 capsule by mouth every afternoon. - famotidine (PEPCID) 20 mg tablet Take 20 mg by mouth two times a day. - hydrOXYzine pamoate (VISTARIL) 25 mg capsule Take 25 mg by mouth three times a day as needed. - lamoTRIgine (LAMICTAL) 200 mg tablet Take 200 mg by mouth two times a day. - ondansetron orally disintegrating (ZOFRAN ODT) 4 mg disintegrating tablet Take 4 mg by mouth every 8 hours as needed. - oxaprozin (DAYPRO) 600 mg tablet Take 600 mg by mouth once daily. - oxyCODONE-acetaminophen (PERCOCET) 5-325 mg tablet Take 1-2 tablets by mouth every 6 hours as needed. - PARoxetine (PAXIL) 30 mg tablet Take 60 mg by mouth once daily. - pregabalin (LYRICA) 150 mg capsule Take 1 tablet by mouth once daily. - tiZANidine HCl (ZANAFLEX) 4 mg capsule Take 4 mg by mouth three times a day. - enteric contrast (will be provided with radiology test) For CT Chest Abdomen WO order Administer, As Directed One Time Only, via Oral, Rectal, both Oral and Rectal, Enteric Tube, Stoma or Indwelling Catheter, Enteric Contrast as designated per enteric contrast guidelines (Patient not taking: Reported on 06/25/2023) Facility-Administered Medications as of 07/02/2023 Medication Dose Route Frequency - lidocaine (PF) 10 mg/mL (1 %) 1-2 mg injection (XYLOCAINE) 0.1-0.2 mL INTRADERMAL PRN I have interviewed and examined the patient. I have reviewed the medical record and/or the pre-anesthesia evaluation, pertinent labs, and test results. This contains updated information obtained within 48 hours of Surgery/Procedure. SIGNATURE: Aure Jarrell MD PATIENT NAME: Tasneem Camarillo DATE: July 02, 2023 TIME: 8:48 AM CSN: [id number] [facility] CNOVon 07-02-2023 CNOV Office Visit (THORMN ) ----- CAMARILLOTASNEEM CHU ([id number]) 1975 F Date Time Provider Department 07/02/23 11:30 AM AIDEE VILLAVICENCIO During your visit today, we recorded the following information about you: Temperature Pulse Blood pressure Weight 97.8 degrees 53/minute 102/61 63.9 kg Height 1.575 m Aidee Villavicencio, AT RISK SPECIALIST.INHALATION THERAPY AIDES TEACHER 07/02/2023 12:46 PM Signed [facility] - OUTPATIENT THORACIC SURGERY CLINIC NOTE PT NAME: Tasneem Camarillo CLINIC NO: [id number] THORACIC SURGEON: Nicanor Ferris M.D. DATE OF SERVICE: July 02, 2023 PRINCIPAL DX: Epigastric pain SURGICAL HX: NONE - Thoracic REASON FOR VISIT: Follow up after tests, visit to finalize surgical treatment plan HPI: Tasneem Camarillo is a 48 year old female with a history of bipolar disorder, hypertension, lap leena and GERD with paraesophageal hernia s/p laparoscopic hiatal hernia repair with yefri fundoplication in 2012. She presents with two years of constant epigastric pain exacerbated by eating and drinking. She states that this pain is associated with bloating and the pain radiates across her abdomen. She has undergone CT scan, MRCP, and upper GI. CT scan without any evidence of recurrent hernia or slipped wrap. Upper GI possibly with a slipped cardia. MRCP without any significant notable findings. PHYSICAL EXAM: VITAL SIGNS: BP 102/61 Pulse (!) 53 Temp 36.6 ?C (97.8 ?F) (Oral) Ht 157.5 cm (5' 2 ) Wt 63.9 kg (140 lb 14.4 oz) SpO2 100% BMI 25.77 kg/m? Room air GENERAL: well appearing, alert, no acute distress, well-hydrated, well nourished HEENT: normocephalic, midline, anicteric sclera. EXTREMITIES: No clubbing, cyanosis or edema. MUSCULOSKELETAL: Muscular strength intact. SKIN: turgor normal, no suspicious rashes or lesions NEURO: Gait normal. Sensation grossly intact. IMAGING/TESTS: EGD 07/02/2023 - Dr. Nicanor Ferris Impression: - Tortuous esophagus. - Abnormal esophageal motility, suspicious for esophageal spasm. Biopsied. - Gastritis. Biopsied. - No gross lesions in the entire examined duodenum. INTERVAL HISTORY: Tasneem Camarillo is seen today following an EGD with Dr. Ferris. She reports epigastric pain exacerbated by eating and drinking. She notes that the pain happens regardless of diet modifications. Has nausea without vomiting. Regular bowel movements. EGD today showed gastritis and tortuous esophagus. Biopsies taken. Return as needed. Medically manage with PPI. Patients states understanding and all questions were answered to satisfaction; will call if new or worsening symptoms occur or if any additional questions arise. IMPRESSION: 48 year old year old female with a history of bipolar disorder, hypertension, lap leena, and GERD with paraesophageal hernia s/p laparoscopic hiatal hernia repair with yefri fundoplication in 2012. She presents with two years of constant epigastric pain exacerbated by eating and drinking. No surgical intervention needed. Medically manage with PPI PLAN: - Await pathology - Carafate QID - Nexium PPI - Return as needed - Local GI for symptom management Aidee Villavicencio APRN.INHALATION THERAPY AIDES TEACHER Referring Provider: NICANOR FERRIS [[id number]] Allergies As of Date: 07/02/2023 Noted Allergy Reaction METOCLOPRAMIDE 01/03/2016 14 - Other: See Comments 4 - Hives 8 - GI Upset 16 - Unknown Comments: Palpitations SULFA (SULFONAMIDE ANTIBIOTICS) 01/03/2016 4 - Hives 8 - GI Upset 14 - Other: See Comments 16 - Unknown SUMATRIPTAN 12/28/2020 14 - Other: See Comments 16 - Unknown 2 - Rash AMOXICILLIN 03/14/2023 2 - Rash Date Reviewed: 07/02/2023 Reviewed by: Keri Johnson MA - Fully Assessed Primary Visit Diagnosis:Epigastric abdominal pain [R10.13] Prescriptions as of 07/02/2023 - atenolol-chlorthalidone (TENORETIC) 50-25 mg per tablet Take 1 tablet by mouth once daily. - acetaminophen 325 mg-caffeine 40 mg-butalbital 50 mg (FIORICET) per tablet Take 1 tablet by mouth every 4 hours as needed. - esomeprazole (NEXIUM) 40 mg capsule Take 1 capsule by mouth every afternoon. - famotidine (PEPCID) 20 mg tablet Take 20 mg by mouth two times a day. - hydrOXYzine pamoate (VISTARIL) 25 mg capsule Take 25 mg by mouth three times a day as needed. - lamoTRIgine (LAMICTAL) 200 mg tablet Take 200 mg by mouth two times a day. - ondansetron orally disintegrating (ZOFRAN ODT) 4 mg disintegrating tablet Take 4 mg by mouth every 8 hours as needed. - oxaprozin (DAYPRO) 600 mg tablet Take 600 mg by mouth two times a day. - oxyCODONE-acetaminophen (PERCOCET) 5-325 mg tablet Take 1-2 tablets by mouth every 6 hours as needed. - PARoxetine (PAXIL) 30 mg tablet Take 60 mg by mouth once daily. - pregabalin (LYRICA) 150 mg capsule Take 1 tablet by mouth once daily. - tiZANidine HCl (ZANAFLEX) 4 mg capsule Take 4 mg by mouth three times a day. - enteric contrast (will be provi (more content not included)... [facility] EGD Study observation Narrat iveon 07-02-2023 [facility] Radiology Study observation (narrative) [facility] NURSING PROGon 07-02-2023 NURSING PROG HNO ID: [id number] Author: ALISHA CANELA LPN Service: Nursing Author Type: LICENSED NURSE Type: Nursing Progress Note Filed: 07/02/2023 09:22 Note Text: AMBULATORY PATIENT EDUCATION NOTE TOPIC: GI PROCEDURES: Esophagogastroduodenoscop y(EGD) with or without biopies based on clinical findings, removal of polyps or lesions READINESS TO LEARN INSTRUCTION PROVIDED TO: Patient, readness to learn accessed prior to procedure COGNITIVE ABILITY: Alert and oriented PTED MOTIVATION TO LEARN: Eager FAMILY SUPPORT: High - Very involved in pt care IPATIENT LEARNS BEST BY: Individual Instruction FACTORS AFFECTING LEARNING: None PHYSICAL LIMITATIONS AFFECTING LEARNING: None LEARNING RESPONSE METHOD OF INSTRUCTION: Individual instruction PATIENT / FAMILY RESPONSE: Verbalizes understanding of: WORSENING CONDITION-Signs and symptoms of a worsening condition that warrant a call to the physician FOLLOW-UP PLAN: Patient instructed to call with any further issues SUPPLEMENTAL MATERIAL: Procedure Discharge Instructions REFERRAL (RECOMMENDATION): None Electronically Signed By: Alisha Canela LPN [facility] NURSING PROG HNO ID: [id number] Author: TATY SHERIDAN RN Service: Nursing Author Type: Registered Nurse Type: Nursing Progress Note Filed: 07/02/2023 08:13 Note Text: PRE OP LEARNING ASSESSMENT PROCEDURE/SURGERY: GI PROCEDURES: EGD READINESS TO LEARN COGNITIVE ABILITY: Alert and oriented MOTIVATION TO LEARN: Interested FAMILY SUPPORT: High - Very involved in pt care PATIENT LEARNS BEST BY: Individual Instruction Verbal Instruction FACTORS AFFECTING LEARNING: None PHYSICAL LIMITATIONS AFFECTING LEARNING: Limited Mobility Electronically Signed By: Taty Sheridan RN BSN In Department: GASTROENTEROLOGY [facility] NURSING PROG HNO ID: [id number] Author: TATY SHERIDAN RN Service: Nursing Author Type: Registered Nurse Type: Nursing Progress Note Filed: 07/02/2023 08:26 Note Text: 0812: Dr. Madelien Jarrell paged: Patient Tasneem Camarillo in pre bed 16: Patient states she is US only IV access. Are you able to help me obtain IV access? Thanks! Casandra 0825: Dr. Jarrell paged: Patient Tasneem Camarillo in pre bed 16: Patient ready for US IV access, thanks! Casandra Sheridan RN BSN [facility] SURGICAL PATHOLOGYon 024 CASE REPORT [facility] Comment on above: Order Comment: Speci men Type: TISSUE SPECIMENOrdering Facility: [facility] Address: [address] [place] [address] Result Comment: Surg ical Pathology Report Case: [id number] Authorizing Provider: Nicanor Ferris MD Collected: 07/02/2023 08:58 AM Ordering Location: Gastroenterology Received: 07/02/2023 11:39 AM Pathologist: Ziyad Lama MD Specimens: A) - Stomach, Antrum, Biopsy, r/o H. Pylori B) - Esophagus, Biopsy, 32cm - r/o EOE C) - Esophagus, Biopsy, 25cm - r/o EOE Performed By: #### S ####[facility] [id number] [address] LABCLIA [id number] [address] DIAGNOSIS COMMENT A. No microorganisms morphologically compatible with Helicobacter Pylori like organisms are identified by routine H AND E-stained sections. [facility] Comment on above: Order Comment: Speci men Type: TISSUE SPECIMENOrdering Facility: [facility] Address: [address] [place] [address] Performed By: #### S ####[facility] [id number] [address] LABCLIA [id number] [address] FINAL DIAGNOSIS [facility] Comment on above: Order Comment: Speci men Type: TISSUE SPECIMENOrdering Facility: [facility] Address: [address] [place] [address] Result Comment: A. S tomach, antrum, biopsy: - Reactive antra/pyloric type mucosa; see comment. B. Esophagus, biopsy at 32 cm: - Squamous and gastric mucosa with no pathologic diagnostic abnormality; negative for eosinophil esophagitis. C. Esophagus, biopsy at 25 cm: - Squamous and gastric mucosa with no pathologic diagnostic abnormality; negative for eosinophil esophagitis. Performed By: #### S ####[facility] LABORATORYCLIA [id number] [address] LABCLIA [id number] [address] [place] OF [facility] FINAL PERFORMING LAB [facility] Comment on above: Order Comment: Speci men Type: TISSUE SPECIMENOrdering Facility: [facility] Address: [address] [place] [address] Result Comment: Diag nostic interpretation performed at [facility], [address] [place] [address] CLIA# [id number] Gut Sorter: Ziyad Lama M.D. Performed By: #### S ####[facility] LABORATORYCLIA [id number] [address] LABCLIA [id number] [place] [address] [place] [facility] GROSS DESCRIPTION [facility] Comment on above: Order Comment: Speci men Type: TISSUE SPECIMENOrdering Facility: [facility] Address: [address] [place] [address] Result Comment: A. S tomach, Antrum, Biopsy Received in formalin are two pieces of burns, soft tissue aggregating to 0.8 x 0.3 x 0.2 cm. Totally submitted in one cassette. B. Esophagus, Biopsy Received in formalin are multiple pieces of burns-white, soft tissue aggregating to 0.7 x 0.3 x 0.1 cm. Totally submitted in one cassette. C. Esophagus, Biopsy Received in formalin are two pieces of burns-white, soft tissue aggregating to 0.5 x 0.3 x 0.1 cm. Totally submitted in one cassette. Gross examination performed at [facility], [facility] July 02, 2023 12:33 PM Performed By: #### S ####[facility] LABORATORYCLIA [id number] [address] LABCLIA [id number] [id number] CNOVon 06-25-2023 CNOV Office Visit (TANYA ) ----- TASNEEM CAMARILLO ([id number]) 1975 F Date Time Provider Department 06/25/23 2:15 PM NICANOR FERRIS During your visit today, we recorded the following information about you: Temperature Pulse Respiration Blood pressure 97.4 degrees 58/minute 14/minute 94/46 Weight Height 63.4 kg 1.575 m Rachana Pham MD 07/24/2023 2:31 PM Signed [facility] THORACIC SURGERY OUTPATIENT CONSULT NOTE Tasneem Camarillo [id number] Requesting Provider: Self Thoracic Physician: Nicanor Ferris MD Chief Complaint: Epigastric pain Impression: 48 year old F with a history of bipolar disorder, hypertension, lap leena, and GERD with paraesophageal hernia s/p laparoscopic hiatal hernia repair with yefri fundoplication in 2012. She presents with two years of constant epigastric pain exacerbated by eating and drinking. CT scan without any evidence of recurrent hernia or slipped wrap. Upper GI possibly with a slipped cardia. Plan: EGD to determine if cardia is slipped through the wrap SIGNATURE: Rachana Pham MD DATE of SERVICE: 06/25/2023 TIME of SERVICE: 2:52 PM HPI: Tasneem Camarillo is a 48 year old white female referred by self for an opinion regarding management of epigastric pain. She is currently symptomatic. 48 year old F with a history of bipolar disorder, hypertension, lap leena and GERD with paraesophageal hernia s/p laparoscopic hiatal hernia repair with yefri fundoplication in 2013. She presents with two years of constant epigastric pain exacerbated by eating and drinking. She states that this pain is associated with bloating and the pain radiates across her abdomen. She has undergone CT scan, MRCP, and upper gi. CT scan without any evidence of recurrent hernia or slipped wrap. Upper GI possibly with a slipped cardia. MRCP without any significant notable findings. (document at least 4 of these elements) Location: upper Quality: throbbing, achy, and radiating Severity: moderate Duration: two years ECOG Score: 0 Living arrangement: Lives with family/friend Functional status: Independent Unintentional weight loss over last 3 months: No PAST MEDICAL HISTORY Diagnosis Date Anxiety state Bipolar 1 disorder (HCC) Chronic pain GERD (gastroesophageal reflux disease) Hypothyroidism ra History reviewed. No pertinent surgical history. History reviewed. No pertinent family history. Social History Tobacco Use Smoking status: Never Smokeless tobacco: Never ALLERGIES Allergen Reactions Metoclopramide Other: See Comments, Hives, GI Upset, Unknown Palpitations Sulfa (Sulfonamide * Hives, GI Upset, Other: See Comments, Unknown Sumatriptan Other: See Comments, Unknown, Rash Amoxicillin Rash Asbestos Exposure No PHYSICAL EXAM BP (!) 94/46 Pulse (!) 58 Temp 36.3 ?C (97.4 ?F) (Oral) Resp 14 Ht 157.5 cm (5' 2 ) Wt 63.4 kg (139 lb 12.8 oz) SpO2 98% BMI 25.57 kg/m? Neck: supple Resp: Clear Cardiovascular: rrr GI: soft ttp in subxiphoid region, nondistended Neurological/Psychiatric: Oriented to time, place AND person Additional relevant findings: DATA: Radiology: CT CHEST WO IVCON Result Date: 06/25/2023 * * *Final Report* * * DATE OF EXAM: Jun 25 2023 12:26PM [facility] [place] [address] - CT CHEST WO IVCON / PROCEDURE REASON: Epigastric abdominal pain * * * * Physician Interpretation * * * * EXAMINATION: CHEST CT WITHOUT CONTRAST CLINICAL HISTORY: Epigastric abdominal pain Technique: Spiral CT acquisition of the chest from the thoracic inlet to the upper abdomen without contrast. MQ: CTCWO_6 CT Radiation dose: Integrated Dose-length product (DLP) for this visit = 177 mGy*cm CT Dose Reduction Employed: Automated exposure control(AEC) and iterative recon Comparison: None. RESULT: Limitations: None. Lines, tubes, and devices: None. Lung parenchyma and airways: Interval left lung base, there is a focus of peribronchial consolidation measuring approximately 2.3 cm around image 129. Scattered small lung nodules are present in both lungs all measuring <6 mm. Examples include: Left lower lobe 0.3 cm nodule on image 121. Right lower lobe 0.2 cm nodule on image 117. Lingula, 0.3 to 0.2 cm subpleural nodules on images 112 and 114. There is mild bilateral apical scarring. The central airways are patent. Pleural space: No pleural effusion. No pleural thickening. Lower neck, lymph nodes, and mediastinum: The imaged thyroid gland is normal. No lymphadenopathy in the supraclavicular, axillary, mediastinal, or hilar regions. Heart, pericardium, and thoracic vessels: The thoracic aorta and main pulmonary artery are normal in caliber. The cardiac chambers are normal in size. No coronary artery atherosclerotic calcifications are noted, although the study is not optimized for coronary assessment. No pericardial effusion or thick (more content not included)... Normal [facility] CT CHEST WO IVCONon 06-25-[address] CHEST WO IVCON * * *Final Report* * * DATE OF EXAM: Jun 25 2023 12:26PM [facility] [place] 0541 - CT CHEST WO IVCON / PROCEDURE REASON: Epigastric abdominal pain * * * * Physician Interpretation * * * * EXAMINATION: CHEST CT WITHOUT CONTRAST CLINICAL HISTORY: Epigastric abdominal pain Technique: Spiral CT acquisition of the chest from the thoracic inlet to the upper abdomen without contrast. MQ: CTCWO_6 CT Radiation dose: Integrated Dose-length product (DLP) for this visit = 177 mGy*cm CT Dose Reduction Employed: Automated exposure control(AEC) and iterative recon Comparison: None. RESULT: Limitations: None. Lines, tubes, and devices: None. Lung parenchyma and airways: Interval left lung base, there is a focus of peribronchial consolidation measuring approximately 2.3 cm around image 129. Scattered small lung nodules are present in both lungs all measuring <6 mm. Examples include: Left lower lobe 0.3 cm nodule on image 121. Right lower lobe 0.2 cm nodule on image 117. Lingula, 0.3 to 0.2 cm subpleural nodules on images 112 and 114. There is mild bilateral apical scarring. The central airways are patent. Pleural space: No pleural effusion. No pleural thickening. Lower neck, lymph nodes, and mediastinum: The imaged thyroid gland is normal. No lymphadenopathy in the supraclavicular, axillary, mediastinal, or hilar regions. Heart, pericardium, and thoracic vessels: The thoracic aorta and main pulmonary artery are normal in caliber. The cardiac chambers are normal in size. No coronary artery atherosclerotic calcifications are noted, although the study is not optimized for coronary assessment. No pericardial effusion or thickening. Bones and soft tissues: No destructive bone lesion. Chest wall is unremarkable. Upper abdomen: Prior cholecystectomy. Localizer images: No additional findings. IMPRESSION: 1. Left lung base peribronchial nodular opacity probably represents a focus of infection. Comparison any previous imaging if available would be helpful. Consider short-term follow-up in 6-8 weeks for resolution. 2. Scattered small 2 to 3 mm nodules in both lungs are of doubtful clinical significance. Incidental Finding: Follow-up Acuity: Incidental Finding: Solid: >8 but <15 mm Routing Code: RI_1 Recommendation: Consult to [facility]od[facility] - [id number] Time Frame: at the discretion of the clinical team. Comments: Follow-up for this incidentally detected lung nodule with PET/CT or Biopsy within 4 weeks, or Chest CT exam in 3 months is recommended. --END OF FINDING-- Press Shop Supervisor: TARYN Transcribe Date/Time: Jun 25 2023 12:38P Dictated by : TALYA MCCORMACK MD This examination was interpreted and the report reviewed and electronically signed by: TALYA MCCORMACK MD on Jun 25 2023 12:44PM EST [id number] ACTIONABLE Invalid Interpretation Code [facility] CT Chest WO contraston 06-24 Radiology Result ACTIONABLE [facility] CNPNon 05-20-2023 CNPN Telephone (THORMN) ----- TASNEEM CAMARILLO ([id number]) 1975 F Date Time Provider Department 05/20/23 NICANOR FERRIS During your visit today, we recorded the following information about you: Liz Cho 05/20/2023 12:08 PM Signed Received a call back from [facility] in [place] on records requested (operative reports from 2013= Yefri fundoplication). Edith from the [place] [facility] de[facility] was unable to fax the records because the pt last name didn't match. I called our patient and left a requesting a call back with that information to proceed with getting the records needed for the surgeon. 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 Liz Hines Allergies As of Date: 05/20/2023 (Not on File) Date Reviewed: Never Reviewed Reason for Visit: Request Outside Medical Records [[id number]] Received Outside Medical Records [[id number]] Prescriptions as of 05/22/2023 - enteric contrast (will be provided with radiology test) For CT Chest Abdomen WO order Administer, As Directed One Time Only, via Oral, Rectal, both Oral and Rectal, Enteric Tube, Stoma or Indwelling Catheter, Enteric Contrast as designated per enteric contrast guidelines Problem List As Of Date: 05/20/2023 (None) Encounter Status:Closed by DANIKA MARX on 05/22/23 Normal [facility] Feliciano 05-19-2023 CNPN Telephone (THORMN) ----- TASNEEM CAMARILLO ([id number]) 1975 F Date Time Provider Department 05/19/23 NICANOR FERRIS During your visit today, we recorded the following information about you: Liz Cho 05/19/2023 9:52 AM Signed LOCAL PATIENT Received Fax from Ildefonso Simmons/ Mailna Castaneda CNP Tasneem Camarillo is being referred to Nicanor Ferris M.D., Ph.D. by Malina Castaneda CNP Patient diagnosis/Reason for consult: Dysphagia Referral triage process explained: No Patient will receive a call from Thoracic NPM after triage review with surgeon to discuss any additional testing and/or consults that will be scheduled. Pt will then receive a call from our scheduling office for scheduling. Please call pt at [phone]. Patient was informed consultation could be at [place] or [facility] [place]: No Patient Registration: Registration complete/updated: no Insurance card(s) scanned in [facility] with in the past year: No Pt's Kontest is inactive. Ok to communicate to pt via Kontest not asked Medical Records: Records in [facility] (internal [facility] records): No Imaging in [facility] (internal [facility] records): No Care Everywhere - queried yes, downloaded No Linked Outside Organizations (list): None OSH Records Requested: no Date: N/A Outside Hospital(s) requested records from: n/a Received: yes Uploaded: Yes. Waiting on additional records: Yes. Missing (list): N/A OSH Pathology Slides Requested: no Date: N/A Outside Hospital(s) slides requested from: none OSH Radiology Imaging Requested: No Date: N/A Outside Hospital(s) requested imaging from: Ildefonso Simmons. Imaging will be received via In Epic already Received: yes Imaging uploaded: Yes Waiting on additional: No. Missing (list): N/A Additional providers added to Care Teams: Yes Additional Notes/Comments: Enct routed to: Yes, Thoracic Scheduling office for registration and Yes, Thoracic NPM for triage [place] Adm Elana Coffman RN 05/19/2023 2:23 PM Signed Thoracic Surgery Consultation - review of records for appointment scheduling Patient is being referred to Nicanor Ferris MD, PhD by for Epigastric Pain, Outside hospital records scanned Procedures: Yefri Fundoplication [place] op report 2013 [facility] ) - ask Marriage And Family Social Worker to obtain Imaging CT (chest/abd requested) mri leena 04/28/2023 UGI: 04/23/2023 esophagram Cardiopulmonary Testing PFT's/Six: Cardiac: Office Notes/Consults 05/13/23 Tony[facility] GI History of: No family history on file. No past medical history on file. No past surgical history on file. Request consult with dr ferris egsharon ct chest /abd Elana Coffman, Abiola Simmons 05/20/2023 10:23 AM Signed Patient was contacted and scheduled for requested consult with Dr. Ferris with testings per Elana's tele Reminder sent to patient via [email or web address] Allergies As of Date: 05/19/2023 (Not on File) Date Reviewed: Never Reviewed Reason for Visit: External Referrals/resources [909] Appointment Confirmation [3505] Primary Visit Diagnosis:Epigastric abdominal pain [R10.13] Order(s):CT CHEST WO IVCON [[id number]] Order #: [id number] FUTURE CT ABDOMEN WO IVCON [[id number]] Order #: [id number] FUTURE enteric contrast (will be provided with radiology test)For CT Chest Abdomen WO order Administer, As Directed One Time Only, via Oral, Rectal, both Oral and Rectal, Enteric Tube, Stoma or Indwelling Catheter, Enteric Contrast as designated per enteric contrast guidelinesDisp: 1 EachRfl: 0 EGD DIAGNOSTIC [GI9] Order #: [id number] FUTURE Prescriptions as of 05/20/2023 - enteric contrast (will be provided with radiology test) For CT Chest Abdomen WO order Administer, As Directed One Time Only, via Oral, Rectal, both Oral and Rectal, Enteric Tube, Stoma or Indwelling Catheter, Enteric Contrast as designated per enteric contrast guidelines Problem List As Of Date: 05/19/2023 (None) Prescriptions ordered this encounter Disp Refills Start End ENTERIC CONTRAST (RADIOLOGY PROCEDUR* 1 Ea* 0 05/19/2023 Class: In Office Sig: For CT Chest Abdomen WO order Administer, As Directed One Time Only, via Oral, Rectal, both Oral and Rectal, Enteric Tube, Stoma or Indwelling Catheter, Enteric Contrast as designated per enteric contrast guidelines Cosign required by NICANOR FERRIS[[id number]] Encounter Status:Closed by ELANA COFFMAN on 05/19/23 Normal [facility] Physician Referralon 024 Physician Referral [id number] Normal [facility] Ambulatory Visit Summaryon 0 05-13-2023 Ambulatory Visit Summary TASNEEM CAMARILLO Rafi :1975 Visit Date:05/13/2023 Ambulatory Visit Instructions Your Diagnosis Epigastric pain Nausea Acid reflux Abnormal CT scan Dysphagia Fatty liver Screen for colon cancer Your Care Team Attending Physician - Malina Castaneda CNP Primary Care Physician - Ryan PEPPER DO This Is Your Medications List esomeprazole (Nexium 40 mg Cap-EC) famotidine (Pepcid 40 mg Tab) sucralfate (Carafate 1 gram Tab) Contact prescribing physician if questions or concerns APAP/butalbital/caffeine (Fioricet) acetaminophen-oxycodone (acetaminophen-oxycodone 325 mg-5 mg Tab) atenolol-chlorthalidone (atenolol-chlorthalidone 50 mg-25 mg Tab) lamotrigine (Lamictal) multivitamin with minerals (Centrum Adult MultiGummies) naloxone (naloxone 4 mg/0.1 mL nasal spray) ondansetron (Zofran 4 mg Tab) ondansetron (Zofran ODT 4 mg Tab-Dis) paroxetine pregabalin (pregabalin 200 mg Cap) promethazine (promethazine 25 mg Tab) tizanidine (tiZANidine 4 mg Tab) tramadol [Image Removed: STOP]Stop taking these medications pantoprazole (pantoprazole 40 mg Oral EC Tab) Procedures Performed EGD (esophagogastroduodenosco pic) electrohydraulic lithotripsy of bezoar in stomach (03/20/2021), ESWL of kidney (06/23/2017), Appendectomy, Arthroscopy of knee, Cholecystectomy, Hysterectomy. Discharge Vitals Temperature (Temporal Artery) 36.2 ?C Heart Rate (Peripheral) 61 Blood Pressure 100/67 Height 157 cm Height 62 in Weight 65.8 kg Weight 144.76 lb BMI 26.69 What to do next Scheduled Follow-Up Appointments Friday 10:40 AM EDT With: Malina Castaneda CNP Where: [facility] Invalid Interpretation Code Dysphagia [facility] Gastroenterology Office/Clin ic Noteon 05-13-2023 Gastroenterology Office/Clinic Note Chief Complaint Nausea and abd pain. HPI Staff This is a 48 year old female who presents today for a follow-up from 04/07/23 office visit, MBS, MRCP, US liver, Xray esophagus and swallow study. Patient has continued upper abdominal pain, nausea, acid reflux and dysphagia. Surgery Center cancelled EGD due to balance owed. History of Present Illness Patient is a 48-year-old female who presents for follow-up. Patient was previously evaluated 04/07/2023 following ED visit at [facility]. Previous review of outside record from outside ED from 03/30/2023 indicated patient with substernal/epigastric pain. Outside labs from 03/30/2023 revealed normal CBC, unremarkable CMP with exception of slightly elevated lipase of 88. Patient with history of gastritis. [facility] Outside record also indicated patient had previous CT abdomen/pelvis 03/24/2023 that revealed right lower lobe nodule and lung?patient to follow-up with PCP regarding, CT also revealed fatty liver and wall thickening of antrum. Patient was also evaluated in ED at [facility] 03/14/2023 and note indicated patient was evaluated for shortness of breath, chest pain, CKD, and abdominal pain. Patient with NSR on EKG and labs at that time revealed normal H&H, elevated BUN of 34, elevated creatinine of 1.4, normal LFTs. Patient was advised to follow-up with nephrology. Patient with history of Yefri fundoplication which was reportedly completed in [place]. Previous EGD 03/[address] Dee that revealed normal esophagus?dilated, normal gastric mucosa, normal duodenum, evidence of intact fundoplication surgery. Patient reported during most recent visit with me that she had been having upper abdominal pain that radiated into her esophagus for years that had worsened in the last month. She also reported dysphagia with liquids daily and solids. Patient was ordered EGD, x-ray of esophagus and modified barium swallow, ultrasound of liver and FibroScan. Patient was also advised to continue pantoprazole 40 mg daily and to add Pepcid 20 mg at bedtime. Modified barium swallow 04/2023 revealed no aspiration. Patient had MRCP to further evaluate biliary dilation noted on recent ultrasound of liver. MRCP revealed mild biliary dilation, incidental finding of cystic duct remnant?results of MRCP were discussed with Dr. Forrester who indicated no further testing needed. Patient previously reported she was unable to afford/proceed with EGD at this time. FibroScan completed 04/16/2023 revealed F0?F1 fibrosis, S2 steatosis. Patient also had x-ray of esophagus 04/23/2023 that revealed postsurgical changes from fundoplication with abnormal appearance?delayed emptying and small amount of gastroesophageal reflux. During today's visit, patient reports she is no longer taking pantoprazole since 2021 or carafate over the last month. Is uncertain if carafate helped her symptoms. Is having epigastric pain described as squeezing/stabbing occurring daily and worse immediately after eating over the last 2 years, worse in the last 6 months. Is having associated nausea with epigastric pain. Is also having difficulty swallowing solids and liquids daily over the last 6 months. Is having acid reflux every other day. Is having 1 formed BM daily. Denies black/bloody stools, vomiting, fevers/chills, and denies having any GI complaints. Review of Systems ROS - Provider Constitutional: no fever, no chills. Skin: no Jaundice. ENMT: Yes acid reflux. Respiratory: no shortness of breath. Cardiovascular: no chest pain. Gastrointestinal: yes nausea, no vomiting, no diarrhea, no GI bleeding. Physical Exam Vitals & Measurements T: 36.2 ?C(Temporal Artery) HR: 61(Peripheral) BP: 100/67 HT: 62 in HT: 157 cm WT: 65.8 kg WT: 144.76 lb BMI: 26.69 General: Well developed, well nourished, in no acute distress Head: Normocephalic/atraumatic Lungs: Normal respiratory effort and clear to auscultation Cardio: Regular rate and rhythm, normal S1 and S2, no murmur, no rub Abdomen: Soft, non-distended, non-tender. Normoactive bowel sounds present in all 4 abdominal quadrants, bilaterally. Mental Status: Alert and oriented x3. Normal mood and affect Assessment/Plan 1. Epigastric pain (R10.13: Epigastric pain) Epigastric pain occurring daily- worse over the last 6 months. Outside labs from 03/30/2023 revealed normal CBC, unremarkable CMP with exception of slightly elevated lipase of 88. Patient with history of gastritis. Previous outside CT abdomen/pelvis 03/24/2023 revealed right lower lobe nodule and lung?patient to follow-up with PCP regarding, CT also revealed fatty liver and wall thickening of antrum. Hx. Yefri fundoplication which was reportedly completed in [place]. Previous EGD 03/2021 revealed normal esophagus?dilated, normal gastric mucosa, normal duodenum, evidence of intact fundoplication surgery. Educated regarding need of EGD to further evaluate wall thickening in antrum on recent CT- may be i (more content not included)... Normal [facility] Comment on above: Result Comment: Elec tronically Signed By: Tonya GALAN, Malina Hopper\.br\Date and Time Signed: 05/13/23 10:48 EST Patient Educationon 05-13-19 Patient Education Gastroenterology Food Choices for Gastroesophageal Reflux Disease, Adult When you have gastroesophageal reflux disease (GERD), the foods you eat and your eating habits are very important. Choosing the right foods can help ease the discomfort of GERD. Consider working with a dietitian to help you make healthy food choices. What are tips for following this plan? Reading food labels ? Look for foods that are low in saturated fat. Foods that have less than 5% of daily value (DV) of fat and 0 g of trans fats may help with your symptoms. Cooking ? Cook foods using methods other than frying. This may include baking, steaming, grilling, or broiling. These are all methods that do not need a lot of fat for cooking. ? To add flavor, try to use herbs that are low in spice and acidity. Meal planning ? Choose healthy foods that are low in fat, such as fruits, vegetables, whole grains, low-fat dairy products, lean meats, fish, and poultry. ? Eat frequent, small meals instead of three large meals each day. Eat your meals slowly, in a relaxed setting. Avoid bending over or lying down until 2?3 hours after eating. ? Limit high-fat foods such as fatty meats or fried foods. ? Limit your intake of fatty foods, such as oils, butter, and shortening. ? Avoid the following as told by your health care provider: ? Foods that cause symptoms. These may be different for different people. Keep a food diary to keep track of foods that cause symptoms. ? Alcohol. ? Drinking large amounts of liquid with meals. ? Eating meals during the 2?3 hours before bed. Lifestyle ? Maintain a healthy weight. Ask your health care provider what weight is healthy for you. If you need to lose weight, work with your health care provider to do so safely. ? Exercise for at least 30 minutes on 5 or more days each week, or as told by your health care provider. ? Avoid wearing clothes that fit tightly around your waist and chest. ? Do not use any products that contain nicotine or tobacco. These products include cigarettes, chewing tobacco, and vaping devices, such as e-cigarettes. If you need help quitting, ask your health care provider. ? Sleep with the head of your bed raised. Use a wedge under the mattress or blocks under the bed frame to raise the head of the bed. ? Chew sugar-free gum after mealtimes. What foods should I eat? Eat a healthy, well-balanced diet of fruits, vegetables, whole grains, low-fat dairy products, lean meats, fish, and poultry. Each person is different. Foods that may trigger symptoms in one person may not trigger any symptoms in another person. Work with your health care provider to identify foods that are safe for you. The items listed above may not be a complete list of recommended foods and beverages. Contact a dietitian for more information. What foods should I avoid? Limiting some of these foods may help manage the symptoms of GERD. Everyone is different. Consult a dietitian or your health care provider to help you identify the exact foods to avoid, if any. Fruits Any fruits prepared with added fat. Any fruits that cause symptoms. For some people this may include citrus fruits, such as oranges, grapefruit, pineapple, and joseph. Vegetables Deep-fried vegetables. Khmer fries. Any vegetables prepared with added fat. Any vegetables that cause symptoms. For some people, this may include tomatoes and tomato products, chili peppers, onions and garlic, and horseradish. Grains Pastries or quick breads with added fat. Meats and other proteins High-fat meats, such as fatty beef or pork, hot dogs, ribs, ham, sausage, salami, and elizondo. Fried meat or protein, including fried fish and fried chicken. Nuts and nut butters, in large amounts. Dairy Whole milk and chocolate milk. Sour cream. Cream. Ice cream. Cream cheese. Milkshakes. Fats and oils Butter. Margarine. Shortening. Ghee. Beverages Coffee and tea, with or without caffeine. Carbonated beverages. Sodas. Energy drinks. Fruit juice made with acidic fruits, such as orange or grapefruit. Tomato juice. Alcoholic drinks. Sweets and desserts Chocolate and cocoa. Donuts. Seasonings and condiments Pepper. Peppermint and spearmint. Added salt. Any condiments, herbs, or seasonings that cause symptoms. For some people, this may include goldberg, hot sauce, or vinegar-based salad dressings. The items listed above may not be a complete list of foods and beverages to avoid. Contact a dietitian for more information. Questions to ask your health care provider Diet and lifestyle changes are usually the first steps that are taken to manage symptoms of GERD. If diet and lifestyle changes do not improve your symptoms, talk with your health care provider about taking medicines. Where to find more information ? [employer] G[employer]intestinal [employer]: aboutgerd.org Summary ? When you have gastroesophageal reflux di (more content not included)... Normal [facility] Follow-Upon 05-07-2023 Follow-Up [id number] Ruddy Camarillo N 1975 F Date Provider Department Center 05/07/2023 VADIM KISER [facility] No family history on file Level of Service:93106 DC OFFICE/OUTPATIENT ESTABLISHED LOW MDM 20 MIN (GC) Reason for Visit and Comments: Follow-up [[id number]] Normal [facility] MRI Cholangiogram Pancreatog guille (mrcp)on 02-20-2024 MRI Cholangiogram Pancreatography (mrcp) Exam Date/Time: 04/28/2023 17:29 EST Reason for Exam: biliary dilation;Other (please specify) Report [facility] [phone] IMPRESSION: STATUS POST CHOLECYSTECTOMY. MILD BILIARY DUCTAL DILATATION, SUSPECTED PHYSIOLOGIC POSTCHOLECYSTECTOMY. INCIDENTAL FINDING OF WHAT APPEARS TO REPRESENT CYSTIC DUCT REMNANT, WITH LOW INSERTION TO THE DISTAL COMMON BILE DUCT. CLINICAL HISTORY: biliary dilation, abdominal pain. COMPARISON: Ultrasound on 04/15/2023. COMMENT: An unenhanced MRCP study was obtained. The patient has had prior cholecystectomy. The central intrahepatic bile ducts are slightly dilated. The common hepatic bile duct and the common bile duct are mildly dilated, up to 7 mm in diameter. The mild dilatation of the common bile duct extends into the pancreatic head, with tapering at the choledochal sphincter. No choledochal calculus is noted within the extrahepatic bile ducts. Within the pancreatic head, there is a smaller ductal structure, parallel to the common bile duct, that appears to cross over the common bile duct, extending towards the erik hepatis. This parallel ductal structure measures 2 to 3 mm in diameter, and no intraluminal filling defect is noted. This merges with the distal common bile duct, proximal to the choledochal sphincter. As there may be developmental variability in biliary ductal anatomy, this is suspected to represent a cystic duct remnant, with low insertion to the distal common bile duct in the pancreatic head, as an incidental finding. The pancreatic duct is not dilated. The pancreas is within normal limits in size and configuration, and is unremarkable in appearance on this MRCP study. No pancreatic/peripancreatic cyst or inflammation is evident. The liver is normal in size and configuration. No focal liver lesion is noted on this study. The spleen is normal in size and configuration. No free fluid is identified in the upper abdomen. Ordering Provider: , FINAL REPORT Dictated: 04/29/2023 10:32 am Heath Nunes M.D. Signed (Electronic Signature): 04/29/2023 10:32 am Signed by: Heath Nunes M.D. Transcribed by: THAIS Technologist: TSERING Dawson [facility] Consent for Treatmenton 04-10 Consent for Treatment [id number]#1.00TIFF Normal [facility] RAD - MRI Screening Formon 0 04-28-2023 RAD - MRI Screening Form [id number]#1.00TIFF Normal [facility] Consent for Treatmenton 04-10 Consent for Treatment [id number]#1.00TIFF Normal [facility] Postoperative Documentson Postoperative Documents [id number]#1.00TIFF Normal [facility] XR Adult Swallowing Function w/ Videoon 04-23-2023 XR Adult Swallowing Function w/ Video Exam Date/Time: 04/23/2023 10:40 EST Reason for Exam: R13.10;Dysphagia Report IMPRESSION: Modified barium swallow performed by Speech Pathology. Please refer to the report by the Speech Pathologist in the medical record. XR Adult Swallowing Function w/ Video HISTORY: Dysphagia, R13.10 TECHNIQUE: Fluoroscopy was provided for an oropharyngeal phase swallowing examination performed by Speech Pathology with the patient swallowing multiple consistencies. Air Kerma (Ka,r): 64.96 mGy DAP: 2.50 uGy*m2 Comparison: None. RESULT: Oral phase: Unremarkable mastication and bolus formation with unremarkable transfer to the oropharynx. Pharyngeal phase: Good pharyngeal elevation and epiglottic excursion without penetration or aspiration. Esophageal phase: No diverticulum, stricture, or fistula in the visualized upper esophagus. Residual: No significant vallecular or piriform sinus residue. Ordering Provider: , FINAL REPORT Dictated: 04/23/2023 11:59 am Cornelio Hendrickson MD Signed (Electronic Signature): 04/23/2023 11:59 am Signed by: Cornelio Hendrickson MD Transcribed by: THAIS Technologist: MARILYN Technical Comments Radiation Dose: Ka,r in mGy = 64.96 DAP = 2.50 Normal [facility] XR Esophaguson 04-23-2023 XR Esophagus Exam Date/Time: 04/23/2023 10:43 EST Reason for Exam: K76.0;Dysphagia Report IMPRESSION: Postsurgical changes from Yefri fundoplication with abnormal appearance as discussed (elongated appearance, partial disruption, delayed emptying) and small amount of gastroesophageal reflux. EXAMINATION: XR Esophagus HISTORY: Dysphagia, K76.0. Remote history of Yefri fundoplication. History of hiatal hernia. Esophagus stretched 2020. TECHNIQUE: A monophasic examination of the esophagus was performed utilizing low density barium. 13 mm barium tablet used. Air Kerma (Ka,r): 1011 mGy DAP: 37.20 uGy*m2 RESULT: Postsurgical changes from Yefri fundoplication. The fundoplication measures around 2.5 cm in length, abnormal. There is some delayed emptying of the distal esophagus with larger bolus ingestions, with mild dilation of the esophagus proximal to the fundoplication. There also appears to be some disruption of the wrap. Small amount of gastroesophageal reflux present. Other portions of the esophagus appear normal caliber. 13 mm barium tablet with transient delay at the level of the fundoplication but otherwise easily passed into the stomach. Ordering Provider: , FINAL REPORT Dictated: 04/23/2023 12:10 pm Cornelio Hendrickson MD Signed (Electronic Signature): 04/23/2023 12:10 pm Signed by: Cornelio Hendrickson MD Transcribed by: THAIS Technologist: MARILYN Technical Comments Radiation Dose: Ka,r in mGy = 1011 DAP = 37.[address] [facility] Physician Orderon 04-18-2023 Physician Order [id number]#1.00TIFF [facility] Insurance Correspondenceon 0 04-17-2023 Insurance Correspondence [id number]#1.00TIFF [facility] Pre-Certification Formon Pre-Certification Form [id number]#1.00TIFF [facility] Consent for Treatmenton Consent for Treatment [id number]#1.00TIFF [facility] Consent for Treatmenton Consent for Treatment [id number]#1.00TIFF Normal [facility] US Liveron 04-15-2023 US Liver Exam Date/Time: 04/15/2023 08:06 EST Reason for Exam: fatty liver;Other (please specify) Report IMPRESSION: NONSPECIFIC EXTRAHEPATIC BILIARY DILATATION, WHICH MAY BE CHRONIC RESERVOIR EFFECT. THIS WAS NOT PRESENT ON 02/27/2021, AND CORRELATION WITH LIVER FUNCTION TESTS ARE SUGGESTED. MRCP COULD BE CONSIDERED. OTHERWISE, NEGATIVE LIMITED RUQ ULTRASOUND AFTER PREVIOUS CHOLECYSTECTOMY. EXAM: US Liver DATE: 04/15/2023 7:52 AM CLINICAL HISTORY: Abdominal pain. History of cholecystectomy 2015. COMPARISON: Abdomen and pelvis CTs 02/27/2021. TECHNIQUE: Transabdominal ultrasound of the right upper quadrant was performed. FINDINGS: The study is mild to moderately limited by the patient's body habitus, with essentially nonvisualization of the pancreas. The gallbladder has been removed. The common duct is dilated to approximately 1 cm at the erik hepatis without significant intrahepatic biliary dilatation. The visualized liver, right kidney, and great vessels are unremarkable. There is no discrete hepatic mass or ascites identified. Ordering Provider: , FINAL REPORT Dictated: 04/15/2023 3:51 pm Lasha Hendricks MD Signed (Electronic Signature): 04/15/2023 3:51 pm Signed by: Lasha Hendricks MD Transcribed by: THAIS Technologist: JADA [facility] ED Note-Physicianon 04-08-19 ED Note-Physician [id number]#1.00TIFF [facility] ED Note-Physician [id number]#1.00TIFF [facility] ED Note-Physician [id number]#1.00TIFF [facility] Ambulatory Visit Summaryon 0 04-07-2023 Ambulatory Visit Summary TASNEEM CAMARILLO :1975 Visit Date:04/07/2023 Ambulatory Visit Instructions Your Diagnosis Abnormal CT scan Upper abdominal pain Nausea Acid reflux Dysphagia Fatty liver Screen for colon cancer Your Care Team Attending Physician - Malina Castaneda CNP Primary Care Physician - Ryan PEPPER DO This Is Your Medications List famotidine (Pepcid 20 mg Tab) Contact prescribing physician if questions or concerns APAP/butalbital/caffeine (Fioricet) acetaminophen-oxycodone (acetaminophen-oxycodone 325 mg-5 mg Tab) atenolol-chlorthalidone (atenolol-chlorthalidone 50 mg-25 mg Tab) lamotrigine (Lamictal) naloxone (naloxone 4 mg/0.1 mL nasal spray) ondansetron (Zofran 4 mg Tab) ondansetron (Zofran ODT 4 mg Tab-Dis) pantoprazole (pantoprazole 40 mg Oral EC Tab) paroxetine pregabalin (pregabalin 200 mg Cap) promethazine (promethazine 25 mg Tab) sucralfate (sucralfate 1 g Tab) tizanidine (tiZANidine 4 mg Tab) tramadol Procedures Performed EGD (esophagogastroduodenosco pic) electrohydraulic lithotripsy of bezoar in stomach (03/20/2021), ESWL of kidney (06/23/2017), Appendectomy, Arthroscopy of knee, Cholecystectomy, Hysterectomy. Discharge Vitals Temperature (Temporal Artery) 36.1 ?C Heart Rate (Peripheral) 52 Blood Pressure 90/61 Height 157 cm Height 62 in Weight 65.7 kg Weight 144.54 lb BMI 26.65 What to do next Scheduled Follow-Up Appointments Friday 8:00 AM EST Where: [facility] Friday 8:30 AM EST Where: [facility] Friday 9:30 AM EST Where: [facility] Friday 10:00 AM EST Where: [facility] You Need to Schedule the Following Appointments Follow Up with Mailna Castaneda CNP When: Within 1 to 2 weeks Comments: Following EGD. Where: You Need to Complete the Following US Liver, 04/15/23, Routine, Order for future visit, Transport Mode: Ambulatory, Reason: Other (please specify), Reason: fatty liver, No, Fatty liver, pp_set_radiology_subspeci alty, Not Required, [facility] XR Adult Swallowing Function w/ Video: Evaluate Pt, Develop a Plan of Care & Implement Plan, 04/23/23, Routine, Order for future visit, Transport Mode: Ambulatory, Reason: Dysphagia, Reason: R13.10, No, Dysphagia, pp_set_radiology_subspeci alty, Not Required, [facility] XR Esophagus, 04/23/23, Routine, Order for future visit, Transport Mode: Ambulatory, Reason: Dysphagia, Reason: K76.0, No, Fatty liver, pp_set_radiology_subspeci alty, Not Required, [facility] Medications What How Much When Why Instructions Changed famotidine (Pepcid 20 mg Tab) 1 Tablets By Mouth Once a day (at bedtime) Acid reflux Duration: 90 Days Pickup at [facility]pharmacy #[id number] Unchanged acetaminophen-oxycodone (acetaminophen-oxycodone 325 mg-5 mg Tab) Contact prescribing physician if questions or concerns Unchanged APAP/ butalbital/ caffeine (Fioricet) Contact prescribing physician if questions or concerns Unchanged atenolol-chlorthalidone (atenolol-chlorthalidone 50 mg-25 mg Tab) Contact prescribing physician if questions or concerns Unchanged lamotrigine (Lamictal) Contact prescribing physician if questions or concerns Unchanged naloxone (naloxone 4 mg/ 0.1 mL nasal spray) 4 Milligram Nasal Inhalation As Directed for suspected overdose symptoms Contact prescribing physician if questions or concerns Unchanged ondansetron (Zofran 4 mg Tab) 1 Tablets By Mouth Every 6 hours as needed for Nausea Take one tab by mouth every six hours as needed for nausea Contact prescribing physician if questions or concerns Unchanged ondansetron (Zofran ODT 4 mg Tab-Dis) 1 Tablets By Mouth Every 8 hours as needed for Nausea Contact prescribing physician if questions or concerns Unchanged pantoprazole (pantoprazole 40 mg Oral EC Tab) 1 Tablets By Mouth Every day Contact prescribing physician if questions or concerns Unchanged paroxetine Contact prescribing physician if questions or concerns Unchanged pregabalin (pregabalin 200 mg Cap) 1 Capsules By Mouth 3 times a day Contact prescribing physician if questions or concerns Unchanged promethazine (promethazine 25 mg Tab) 1 Tablets By Mouth 3 times a day Contact prescribing physician if questions or concerns Unchanged sucralfate (sucralfate 1 g Tab) Contact prescribing physician if questions or concerns Unchanged tizanidine (tiZANidine 4 mg Tab) Contact prescribing physician if questions or concerns Unchanged tramadol Contact prescribing physician if questions or concerns Pharmacy Information [id number]: [address] [place], [place] [phone] Allergies Augmentin (Rash) SUMAtriptan (Heart racing or rapid heart rate, Unknown) metoclopramide (Unknown) sulfa drugs (Unknown) Problems Ongoing - Any problem that you are currently receiving treatment for. Abnormal CT scan Acid reflux Arthritis (more content not included)... Normal [facility] Consent for Procedure/Surger yon 04-07-2023 Consent for Procedure/Surgery [id number]#[id number] Normal [facility] Gastroenterology Office/Clin ic Noteon 04-07-2023 Gastroenterology Office/Clinic Note Chief Complaint Abdominal pain and nausea. HPI Staff This is a 48 year old female who presents today for a follow up from 04/06/2021 office visit for upper abdominal pain, nausea, dysphagia and heartburn. Patient c/o abdominal pain and nausea. History of Present Illness Patient is a 48-year-old female who presents for further evaluation following ED visit at [facility]. Review of outside records indicates patient was seen at outside ED 03/30/2023 for abdominal pain, substernal/epigastric pain. Note from ED also indicated patient following pill was stopped. Patient had labs 03/30/23 that revealed normal CBC, unremarkable CMP with exception of slightly elevated lipase of 88. Note also indicated patient with history of gastritis. Presents with her significant other today. Review of outside record indicates patient had previous CT A/P 03/24/23 that revealed right lower lobe nodule in lung- patient to follow-up with PCP regarding, CT also revealed fatty liver, wall thickening of antrum. Outside record also revealed patient was evaluated in ED at [facility] 03/14/23 - evaluated by Dr. Pepper for shortness of breath, chest pain, CKD, and abdominal pain. Patient with NSR on EKG. Labs 03/14/23 revealed normal H/H, elevated BUN of 34, elevated creatinine of 1.4, normal LFTs. Patient was discharged from ED and advised to follow-up with Nephrology. Patient was previously evaluated via telehealth 03/2021 and has history of Maicol fundoplication that was reportedly completed in [place]. Patient was previously ordered esophageal manometry, x-ray of esophagus, modified barium swallow?not done. Patient was also ordered ultrasound of abdomen and labs at that time- not done. Patient had previous EGD 03/[address] Dee that revealed normal esophagus?dilated, normal gastric mucosa, normal duodenum, evidence of intact fundoplication surgery. During today's visit, patient reports she has been having upper abdominal pain that radiates into her esophagus described as constant/stabbing for years that has worsened over the last month. Abdominal pain occurs without regard to food. Is having upper abdominal pain daily with associated nausea. Is taking carafate QID that was reportedly prescribed in ED. Is having acid reflux 2-3 times a week that occurs primarily at night. She explains she tried eating bland diet that did not help her symptoms. Reportedly had previous colonoscopy in 2022 at [facility] that reportedly showed spasms in bowel- no record to review during today's encounter. Is having difficulty swallowing daily with solids and liquids daily over the last 3 years. Is having 1 semi-formed BM daily. Has occasional loose stools. Denies black/bloody stools, vomiting, fevers/chills, unintentional weight loss, and denies having any other GI complaints. Review of Systems ROS - Provider Constitutional: no fever, no chills. Skin: no Jaundice. ENMT: Yes acid reflux. Respiratory: no shortness of breath. Cardiovascular: no chest pain. Gastrointestinal: yes nausea, no vomiting, Occasional loose stools, no GI bleeding. Physical Exam Vitals & Measurements T: 36.1 ?C(Temporal Artery) HR: 52(Peripheral) BP: 90/61 HT: 62 in HT: 157 cm WT: 65.7 kg WT: 144.54 lb BMI: 26.65 General: Well developed, well nourished, in no acute distress Head: Normocephalic/atraumatic Lungs: Normal respiratory effort and clear to auscultation Cardio: Regular rate and rhythm, normal S1 and S2, no murmur, no rub Abdomen: Soft, non-distended. Tenderness in upper abdomen, bilaterally. Otherwise, non-tender in all other abdominal quadrants, bilaterally. Normoactive bowel sounds present in all 4 abdominal quadrants, bilaterally. Mental Status: Alert and oriented x3. Normal mood and affect Assessment/Plan 1. Abnormal CT scan (R93.89: Abnormal findings on diagnostic imaging of other specified body structures) Evaluated at outside ED. Hx. Yefri fundoplication in 2012. Labs 03/30/23 revealed normal CBC, unremarkable CMP with exception of slightly elevated lipase of 88. Outside record revealed CT A/P 03/24/23 showed fatty liver, wall thickening of antrum. Previous EGD 03/[address] Dee that revealed normal esophagus?dilated, normal gastric mucosa, normal duodenum, evidence of intact fundoplication surgery. Ordered EGD to evaluate for PUD, H. pylori infection. Continue Pantoprazole 40mg daily. Avoid NSAIDs and ETOH. Ordered: EGD Endoscopy (Hospital Procedure) 2. Upper abdominal pain (R10.10: Upper abdominal pain, unspecified) Worse over the last month. Hx. Yefri fundoplication. Labs 03/30/23 revealed normal CBC, unremarkable CMP with exception of slightly elevated lipase of 88. Outside record revealed CT A/P 03/24/23 showed fatty liver, wall thickening of antrum. Previous EGD 03/2021 revealed normal esophagus?dilated, normal gastric mucosa, normal duodenum, evidence of intact fundoplication surgery. Ordered EGD to evaluate for PUD, H. pylori infection. Continu (more content not included)... Normal [facility] Comment on above: Result Comment: Elec tronically Signed By: Tonya GALAN, Malina Hopper\.juan\Date and Time Signed: 04/07/23 11:21 EST Physician Referralon 024 Physician Referral [id number]#1.00TIFF Normal [facility] Alanine aminotransferase [En zymatic activity/volume] in Serum or PlasmaOrdered By: Zaheer Sanon on 03-30-2023 ALT [Catalytic activity/Vol] 19 U/L 7-52 [facility] Albumin [Mass/volume] in Ser um or Plasma by Bromocresol green (BCG) dye binding methoOrdered By: Zaheer Sanon on 03-30-2023 Albumin BCG dye [Mass/Vol] 4.6 g/dL 3.5-5.7 [facility] Alkaline phosphatase [Enzyma tic activity/volume] in Serum or PlasmaOrdered By: Zaheer Sanon on 03-30-2023 ALP [Catalytic activity/Vol] 70 U/L 34-104 [facility] Aspartate aminotransferase [ Enzymatic activity/volume] in Serum or PlasmaOrdered By: Zaheer Sanon on 03-30-2023 AST [Catalytic activity/Vol] 29 U/L 13-39 [facility] Basophils Auto (Bld) [#/Vol] Ordered By: Zaheer Sanon on 03-30-2023 Basophils (Bld) [#/Vol] 0.1 10*3/uL 0.0-0.2 [facility] Basophils/100 WBC Auto (Bld) Ordered By: Zaheer Sanon on 03-30-2023 Basophils/100 WBC (Bld) 1.3 % . [facility] Bilirubin Test strip Ql (U)O rdered By: Zaheer Sanon on 03-30-2023 Bilirubin Ql (U) Negative Negative [facility] Bilirubin.total [Mass/volume ] in Serum or PlasmaOrdered By: Zaheer Sanon on 03-30-2023 Bilirubin [Mass/Vol] 0.9 mg/dL 0.3-1.0 [facility] Calcium [Mass/volume] in Ser um or PlasmaOrdered By: Zaheer Sanon on 03-30-2023 Calcium [Mass/Vol] 9.1 mg/dL 8.6-10.3 [facility] Carbon dioxide, total [Moles /volume] in Serum or PlasmaOrdered By: Zaheer Sanon on 03-30-2023 CO2 [Moles/Vol] 29.8 mmol/L 21.0-31.0 [facility] Chloride [Moles/volume] in S kaur or PlasmaOrdered By: Zaheer Sanon on 03-30-2023 Chloride [Moles/Vol] 101 mmol/L 98-107 [facility] Color Auto (U)Ordered By: Robyn Sanon on 03-30-2023 Color (U) Yellow Yellow [facility] Complete Blood Count Auto Di ffon 03-30-2023 Basophils (Bld) [#/Vol] 0.1 10*3/uL Normal 0.0-0.2 [facility] Comment on above: Result Comment: PERF ORMED BY: [facility] [address] [place] [address] PATHOLOGIST WIRELESS MANAGER JESSICA LYN M.D. Performed By: #### C BC, LIPASE, CMP ####[place] [id number] [facility] Basophils/100 WBC (Bld) 1.3 % Normal . [facility] Comment on above: Performed By: #### C BC, LIPASE, CMP ####[address] Eosinophils (Bld) [#/Vol] 0.2 10*3/uL Normal 0.0-0.45 [facility] Comment on above: Performed By: #### C BC, LIPASE, CMP ####[address] Eosinophils/100 WBC (Bld) 3.7 % Normal . [facility] Comment on above: Performed By: #### C BC, LIPASE, CMP ####[place] [id number] [facility] Erythrocyte distribution width (RBC) [Ratio] 14.6 % Normal 11.9-15.3 [facility] Comment on above: Performed By: #### C BC, LIPASE, CMP ####[place] [id number] [facility] Hematocrit (Bld) [Volume fraction] 38.6 % Normal 34.0-46.4 [facility] Comment on above: Performed By: #### C BC, LIPASE, CMP ####[place] [id number] [facility] Hemoglobin (Bld) [Mass/Vol] 12.9 g/dL Normal 11.8-15.4 [facility] Comment on above: Performed By: #### C BC, LIPASE, CMP ####[place] [id number] [facility] Lymphocytes (Bld) [#/Vol] 3.1 10*3/uL Normal 1.00-4.8 [facility] Comment on above: Performed By: #### C BC, LIPASE, CMP ####[address] Lymphocytes/100 WBC (Bld) 47.8 % Normal . [facility] Comment on above: Performed By: #### C BC, LIPASE, CMP ####[address] MCH (RBC) [Entitic mass] 30.3 pg Normal 24.7-34.3 [facility] Comment on above: Performed By: #### C BC, LIPASE, CMP ####[address] MCV (RBC) [Entitic vol] 91.0 fL Normal 80-100 [facility] Comment on above: Performed By: #### C BC, LIPASE, CMP ####[address] Mean Corpuscular HGB Conc 33.3 g/dL Normal 32.0-35.0 [facility] Comment on above: Performed By: #### C BC, LIPASE, CMP ####[address] Monocytes (Bld) [#/Vol] 0.7 10*3/uL Normal 0.0-0.8 [facility] Comment on above: Performed By: #### C BC, LIPASE, CMP ####[address] Monocytes/100 WBC (Bld) 16.77 % Normal 0.00-20.00 [facility] Comment on above: Performed By: #### C BC, LIPASE, CMP ####[address] Monocytes/100 WBC (Bld) 10.1 % Normal . [facility] Comment on above: Performed By: #### C BC, LIPASE, CMP ####[address] Neutrophils (Bld) [#/Vol] 2.4 10*3/uL Normal 1.8-7.7 [facility] Comment on above: Performed By: #### C BC, LIPASE, CMP ####[address] Neutrophils/100 WBC (Bld) 37.1 % Normal . [facility] Comment on above: Performed By: #### C BC, LIPASE, CMP ####[address] NRBC% 0.1 /100{WBC} Normal 0-0.5 [facility] Comment on above: Performed By: #### C BC, LIPASE, CMP ####[address] Platelet mean volume (Bld) [Entitic vol] 8.8 fL Normal 6.3-10.7 [facility] Comment on above: Performed By: #### C BC, LIPASE, CMP ####[address] Platelets (Bld) [#/Vol] 338 10*3/uL Normal 150-450 [facility] Comment on above: Performed By: #### C BC, LIPASE, CMP ####[address] RBC (Bld) [#/Vol] 4.24 10*6/uL Normal 3.60-5.00 [facility] Comment on above: Performed By: #### C BC, LIPASE, CMP ####[address] WBC (Bld) [#/Vol] 6.4 10*3/uL Normal 3.8-11.6 [facility] Comment on above: Performed By: #### C BC, LIPASE, CMP ####[address] Comprehensive Metabolic Pane aidee 03-30-2023 Albumin [Mass/Vol] 4.6 g/dL Normal 3.5-5.7 [facility] Comment on above: Performed By: #### C BC, LIPASE, CMP ####[facility] [place] [address] [facility] Albumin/Globulin [Mass ratio] 1.5 {ratio} Normal [facility] Comment on above: Performed By: #### C BC, LIPASE, CMP ####[facility] [place] [address] [facility] ALP [Catalytic activity/Vol] 70 U/L Normal 34-104 [facility] Comment on above: Performed By: #### C BC, LIPASE, CMP ####[place] [id number] [place] [address] [facility] ALT [Catalytic activity/Vol] 19 U/L Normal 7-52 [facility] Comment on above: Performed By: #### C BC, LIPASE, CMP ####[place] [id number] [place] [address] [facility] Anion gap [Moles/Vol] 11.4 mmol/L Normal 6.0-15.0 [facility] [facility] Comment on above: Performed By: #### C BC, LIPASE, CMP ####[address] [address] [facility] AST [Catalytic activity/Vol] 29 U/L Normal 13-39 [facility] Comment on above: Performed By: #### C BC, LIPASE, CMP ####[address] [address] [facility] Bilirubin [Mass/Vol] 0.9 mg/dL Normal 0.3-1.0 [facility] Comment on above: Performed By: #### C BC, LIPASE, CMP ####[address] [address] [facility] Calcium [Mass/Vol] 9.1 mg/dL Normal 8.6-10.3 [facility] Comment on above: Performed By: #### C BC, LIPASE, CMP ####[place] [id number] [place] [address] [facility] Chloride [Moles/Vol] 101 mmol/L Normal 98-107 [facility] Comment on above: Performed By: #### C BC, LIPASE, CMP ####[facility] [place] [id number] [facility] CO2 [Moles/Vol] 29.8 mmol/L Normal 21.0-31.0 [facility] Comment on above: Performed By: #### C BC, LIPASE, CMP ####[place] [id number] [place] [id number] [facility] Creatinine [Mass/Vol] 1.76 mg/dL High 0.60-1.20 [facility] Comment on above: Performed By: #### C BC, LIPASE, CMP ####[place] [id number] Creatinine Clr Calc Pharmacy 34.34 [facility] Comment on above: Performed By: #### C BC, LIPASE, CMP ####[place] [id number] GFR/1.73 sq M.predicted MDRD (S/P/Bld) [Vol rate/Area] 35.044 mL/min/{1.73_m2} [facility] Comment on above: Performed By: #### C BC, LIPASE, CMP ####[place] [id number] [facility] Globulin (S) [Mass/Vol] 3.0 g/dL [facility] Comment on above: Performed By: #### C BC, LIPASE, CMP ####[place] [id number] [place] [id number] [facility] Glucose [Mass/Vol] 67 mg/dL Low 70-100 [facility] Comment on above: Result Comment: [place] Glucose Reference Range is dependent on time and content of last meal. Glucose of more than 200 mg/dL in a nonstressed, ambulatory subject supports the diagnosis of Diabetes Mellitus. ADA recommended reference range Performed By: #### C BC, LIPASE, CMP ####[place] [id number] [place] [id number] [facility] Potassium [Moles/Vol] 3.2 mmol/L Low 3.5-5.1 [facility] Comment on above: Performed By: #### C BC, LIPASE, CMP ####[address] [place] [address] [facility] Protein [Mass/Vol] 7.6 g/dL Normal 6.4-8.9 [facility] Comment on above: Performed By: #### C BC, LIPASE, CMP ####[facility] [id number] [place] [address] [facility] Sodium [Moles/Vol] 139 mmol/L Normal 136-145 [facility] Comment on above: Performed By: #### C BC, LIPASE, CMP ####[facility] [id number] [place] [address] [facility] Urea nitrogen [Mass/Vol] 21 mg/dL Normal 7-25 [facility] Comment on above: Performed By: #### C BC, LIPASE, CMP ####[facility] [id number] [place] [address] [facility] Creatinine [Mass/volume] in Serum or PlasmaOrdered By: Zaheer Sanon on 03-30-2023 Creatinine [Mass/Vol] 1.76 mg/dL 0.60-1.20 [facility] Eosinophils Auto (Bld) [#/Vo l]Ordered By: Zaheer Sanon on 03-30-2023 Eosinophils (Bld) [#/Vol] 0.2 10*3/uL 0.0-0.45 [facility] Eosinophils/100 WBC Auto (Bl d)Ordered By: Zaheer Sanon on 03-30-2023 Eosinophils/100 WBC (Bld) 3.7 % . [facility] Erythrocyte distribution wid th Auto (RBC) [Ratio]Ordered By: Zaheer Sanon on 03-30-2023 Erythrocyte distribution width (RBC) [Ratio] 14.6 % 11.9-15.3 [facility] Globulin Calc (S) [Mass/Vol] Ordered By: Zaheer Sanon on 03-30-2023 Globulin (S) [Mass/Vol] 3.0 g/dL [facility] Glucose [Mass/volume] in Ser um or PlasmaOrdered By: Zaheer Sanon on 03-30-2023 Glucose [Mass/Vol] 67 mg/dL 70-100 [facility] Comment on above: ADA recommended refe rence rangeRandom Glucose Reference Range is dependent on time and content of last meal. Glucose of more than 200 mg/dL in a nonstressed, ambulatory subject supports the diagnosis of Diabetes Mellitus. Hematocrit Auto (Bld) [Volum e fraction]Ordered By: Zaheer Sanon on 03-30-2023 Hematocrit (Bld) [Volume fraction] 38.6 % 34.0-46.4 [facility] Hemoglobin [Mass/volume] in BloodOrdered By: Zaheer Sanon on 03-30-2023 Hemoglobin (Bld) [Mass/Vol] 12.9 g/dL 11.8-15.4 [facility] Ketones Auto test strip (U) [Mass/Vol]Ordered By: Zaheer Sanon on 03-30-2023 Ketones (U) [Mass/Vol] Negative Negative [facility] Leukocytes [#/volume] correc dieudonne for nucleated erythrocytes in Blood by Automated counOrdered By: Zaheer Sanon on 03-30-2023 WBC corrected for nucl RBC Auto (Bld) [#/Vol] 6.4 10*3/uL 3.8-11.6 [facility] Lipaseon 03-30-2023 Lipase [Catalytic activity/Vol] 88.0 U/L High 11.0-82.0 [facility] Comment on above: Result Comment: PERF ORMED BY: [facility] [address] [place] [address] PATHOLOGIST WIRELESS MANAGER JESSICA LYN M.D. Performed By: #### C BC, LIPASE, CMP ####[facility] [id number] [place] [id number] [facility] Lipase [Enzymatic activity/v olume] in Serum or PlasmaOrdered By: Zaheer Sanon on 03-30-2023 Lipase [Catalytic activity/Vol] 88.0 U/L 11.0-82.0 [facility] Lymphocytes Auto (Bld) [#/Vo l]Ordered By: Zaheer Sanon on 03-30-2023 Lymphocytes (Bld) [#/Vol] 3.1 10*3/uL 1.00-4.8 [facility] Lymphocytes/100 WBC Auto (Bl d)Ordered By: Zaheer Sanon on 03-30-2023 Lymphocytes/100 WBC (Bld) 47.8 % . [facility] MCH Auto (RBC) [Entitic mass ]Ordered By: Zaheer Sanon on 03-30-2023 MCH (RBC) [Entitic mass] 30.3 pg 24.7-34.3 [facility] MCHC Auto (RBC) [Mass/Vol]Or dered By: Zaheer Sanon on 03-30-2023 MCHC (RBC) [Mass/Vol] 33.3 g/dL 32.0-35.0 [facility] MCV Auto (RBC) [Entitic vol] Ordered By: Zaheer Sanon on 03-30-2023 MCV (RBC) [Entitic vol] 91.0 fL 80-100 [facility] Monocyte distribution width [Entitic volume] in Blood by AutomatedOrdered By: Zaheer Sanon on 03-30-2023 Monocyte distribution width Auto (Bld) [Entitic vol] 16.77 % 0.00-20.00 [facility] Monocytes Auto (Bld) [#/Vol] Ordered By: Zaheer Sanon on 03-30-2023 Monocytes (Bld) [#/Vol] 0.7 10*3/uL 0.0-0.8 [facility] Monocytes/100 WBC Auto (Bld) Ordered By: Zaheer Sanon on 03-30-2023 Monocytes/100 WBC (Bld) 10.1 % . [facility] Neutrophils Auto (Bld) [#/Vo l]Ordered By: Zaheer Sanon on 03-30-2023 Neutrophils (Bld) [#/Vol] 2.4 10*3/uL 1.8-7.7 [facility] Neutrophils/100 WBC Auto (Bl d)Ordered By: Zaheer Sanon on 03-30-2023 Neutrophils/100 WBC (Bld) 37.1 % . [facility] Nitrite Test strip Ql (U)Ord ered By: Zaheer Sanon on 03-30-2023 Nitrite Ql (U) Negative Negative [facility] No Panel InformationOrdered By: Zaheer Sanon on 03-30-2023 Estimated GFR (CKD-EPI) 35.044 mL/Min [facility] Pharmacy Creatinine Clearance (Chem 34.34 [facility] Nucleated erythrocytes [Pres ence] in Blood by Automated countOrdered By: Zaheer Sanon on 03-30-2023 Nucleated RBC Auto Ql (Bld) 0.1 /100{WBC} 0-0.5 [facility] Platelet mean volume Auto (B ld) [Entitic vol]Ordered By: aZheer Sanon on 03-30-2023 Platelet mean volume (Bld) [Entitic vol] 8.8 fL 6.3-10.7 [facility] Platelets Auto (Bld) [#/Vol] Ordered By: Zaheer Sanon on 03-30-2023 Platelets (Bld) [#/Vol] 338 10*3/uL 150-450 [facility] Potassium [Moles/volume] in Serum or PlasmaOrdered By: Zaheer Sanon on 03-30-2023 Potassium [Moles/Vol] 3.2 mmol/L 3.5-5.1 [facility] Protein Auto test strip (U) [Mass/Vol]Ordered By: Zaheer Sanon on 03-30-2023 Protein (U) [Mass/Vol] Negative Negative [facility] Protein [Mass/volume] in Ser um or PlasmaOrdered By: Zaheer Sanon on 03-30-2023 Protein [Mass/Vol] 7.6 g/dL 6.4-8.9 [facility] RBC Auto (Bld) [#/Vol]Ordere d By: Zaheer Sanon on 03-30-2023 RBC (Bld) [#/Vol] 4.24 10*6/uL 3.60-5.00 [facility] Serum or plasma albumin/glob ulin mass ratioOrdered By: Zaheer Sanon on 03-30-2023 Albumin/Globulin [Mass ratio] 1.5 {ratio} [facility] Serum or plasma anion gap de terminationOrdered By: Zaheer Sanon on 03-30-2023 Anion gap [Moles/Vol] 11.4 mmol/L 6.0-15.0 [facility] Sodium [Moles/volume] in Ser um or PlasmaOrdered By: Zaheer Sanon on 03-30-2023 Sodium [Moles/Vol] 139 mmol/L 136-145 [facility] Specific gravity Auto test s trip (U) [Rel density]Ordered By: Zaheer Sanon on 03-30-2023 Specific gravity (U) [Rel density] 1.006 1.001-1.03 0 [facility] Urea nitrogen [Mass/volume] in Serum or PlasmaOrdered By: Zaheer Sanon on 03-30-2023 Urea nitrogen [Mass/Vol] 21 mg/dL 10-01 [facility] Urinalysison 03-30-2023 Appearance (U) Clear Normal Clear [facility] Comment on above: Order Comment: Name Collection Type:: Clean-Voided Midstream Performed By: #### U A ####[facility] [id number] [place] [address] [facility] Bilirubin,Urine Negative Normal Negative [facility] Comment on above: Order Comment: Name Collection Type:: Clean-Voided Midstream Performed By: #### U A ####[address] [address] [facility] Color (U) Yellow Normal Yellow [facility] Comment on above: Order Comment: Name Collection Type:: Clean-Voided Midstream Performed By: #### U A ####[address] [address] [facility] Glucose Ql (U) Normal Normal Normal [facility] Comment on above: Order Comment: Name Collection Type:: Clean-Voided Midstream Performed By: #### U A ####[address] [address] [facility] Ketones Ql (U) Negative Normal Negative [facility] Comment on above: Order Comment: Name Collection Type:: Clean-Voided Midstream Performed By: #### U A ####[address] [address] [facility] Leukocyte esterase Test strip Ql (U) Negative Normal Negative [facility] Comment on above: Order Comment: Name Collection Type:: Clean-Voided Midstream Performed By: #### U A ####[address] [address] [place] Nitrite,Urine Negative Normal Negative [facility] Comment on above: Order Comment: Name Collection Type:: Clean-Voided Midstream Performed By: #### U A ####[address] [address] [facility] Occult Blood,Urine Negative Normal Negative [facility] Comment on above: Order Comment: Name Collection Type:: Clean-Voided Midstream Result Comment: PERF ORMED BY: [facility] [address] [place] [id number] PATHOLOGIST WIRELESS MANAGER JESSICA LYN M.D. Performed By: #### U A ####[id number] [place] [address] [facility] pH (U) 5.5 [pH] Normal 5.0-9.0 [facility] Comment on above: Order Comment: Name Collection Type:: Clean-Voided Midstream Performed By: #### U A ####[address] [address] [facility] Protein,Urine Negative Normal Negative [facility] Comment on above: Order Comment: Name Collection Type:: Clean-Voided Midstream Performed By: #### U A ####[address] [address] [facility] Specificy [place],Urine 1.006 Normal 1.001-1.03 0 [facility] Comment on above: Order Comment: Name Collection Type:: Clean-Voided Midstream Performed By: #### U A ####[address] [address] [facility] Urobilinogen,Urine Normal Normal Normal [facility] Comment on above: Order Comment: Name Collection Type:: Clean-Voided Midstream Performed By: #### U A ####[place] [id number] [facility] Urine clarity by refractomet ry automatedOrdered By: Zaheer Sanon on 03-30-2023 Clarity Refractometry automated (U) Clear Clear [facility] Urine glucose measurement by automated test strip (mass/volume)Ordered By: Zaheer Sanon on 03-30-2023 Glucose Auto test strip (U) [Mass/Vol] Normal mg/dL Normal [facility] Urine hemoglobin detection b y automated test stripOrdered By: Zaheer Sanon on 03-30-2023 Hemoglobin Auto test strip Ql (U) Negative Negative [facility] Urine leukocyte esterase det ection by automated test stripOrdered By: Zaheer Sanon on 03-30-2023 Leukocyte esterase Auto test strip Ql (U) Negative Negative [facility] Urobilinogen Auto test strip (U) [Mass/Vol]Ordered By: Zaheer Sanon on 03-30-2023 Urobilinogen (U) [Mass/Vol] Normal mg/dL Normal [facility] WBC Auto (Bld) [#/Vol]Ordere d By: Zaheer Sanon on 03-30-2023 WBC (Bld) [#/Vol] 6.4 10*3/uL 3.8-11.6 [facility] pH Auto test strip (U)Ordere d By: Zaheer Sanon on 03-30-2023 pH (U) 5.5 [pH] 5.0-9.0 [facility] Activated partial thrombopla stin time (aPTT) in platelet poor plasma by coagulation aOrdered By: Tad Barger on 03-24-2023 aPTT Coag (PPP) [Time] 29.2 s 25.1-36.5 [facility] Comment on above: A hematocrit value g reater than 55% may lead to inaccurate results in coagulation testing. Patients having hematocrit values >55% require a special collection tube for coagulation studies. Please contact the laboratory at [phone] for redraw instructions. Alanine aminotransferase [En zymatic activity/volume] in Serum or PlasmaOrdered By: Tad Barger on 03-24-2023 ALT [Catalytic activity/Vol] 17 U/L 7-52 [facility] Albumin [Mass/volume] in Ser um or Plasma by Bromocresol green (BCG) dye binding methoOrdered By: Tad Barger on 03-24-2023 Albumin BCG dye [Mass/Vol] 4.0 g/dL 3.5-5.7 [facility] Alkaline phosphatase [Enzyma tic activity/volume] in Serum or PlasmaOrdered By: Tad Barger on 03-24-2023 ALP [Catalytic activity/Vol] 61 U/L 34-104 [facility] Aspartate aminotransferase [ Enzymatic activity/volume] in Serum or PlasmaOrdered By: Tad Barger on 03-24-2023 AST [Catalytic activity/Vol] 28 U/L 13-39 [facility] B-Type Natriuretic Peptideon 03-24-2023 Natriuretic peptide B (Bld) [Mass/Vol] 244.0 pg/mL High 5-100 [facility] Comment on above: Result Comment: PERF ORMED BY: [place] [address] PATHOLOGIST WIRELESS MANAGER JESSICA LYN M.D. Performed By: #### P T, CBC, PTT, BMP, HEPATIC, CK, LIPASE, BNP, HS TROP #### [address] Basic Metabolic Panelon 03-10 Anion gap [Moles/Vol] 8.7 mmol/L Normal 6.0-15.0 [facility] Comment on above: Performed By: #### P T, CBC, PTT, BMP, HEPATIC, CK, LIPASE, BNP, HS TROP #### [address] Calcium [Mass/Vol] 9.3 mg/dL Normal 8.6-10.3 [facility] Comment on above: Performed By: #### P T, CBC, PTT, BMP, HEPATIC, CK, LIPASE, BNP, HS TROP #### [address] Chloride [Moles/Vol] 109 mmol/L High 98-107 [facility] Comment on above: Performed By: #### P T, CBC, PTT, BMP, HEPATIC, CK, LIPASE, BNP, HS TROP #### [address] CO2 [Moles/Vol] 27.1 mmol/L Normal 21.0-31.0 [facility] Comment on above: Performed By: #### P T, CBC, PTT, BMP, HEPATIC, CK, LIPASE, BNP, HS TROP #### [address] Creatinine [Mass/Vol] 1.23 mg/dL High 0.60-1.20 [facility] Comment on above: Performed By: #### P T, CBC, PTT, BMP, HEPATIC, CK, LIPASE, BNP, HS TROP #### [address] [place] [address] [place] Creatinine Clr Calc Pharmacy 49.35 [facility] Comment on above: Performed By: #### P T, CBC, PTT, BMP, HEPATIC, CK, LIPASE, BNP, HS TROP #### [address] GFR/1.73 sq M.predicted MDRD (S/P/Bld) [Vol rate/Area] 53.870 mL/min/{1.73_m2} [facility] Comment on above: Performed By: #### P T, CBC, PTT, BMP, HEPATIC, CK, LIPASE, BNP, HS TROP #### [address] Glucose [Mass/Vol] 51 mg/dL Low 70-100 [facility] Comment on above: Result Comment: [facility] Glucose Reference Range is dependent on time and content of last meal. Glucose of more than 200 mg/dL in a nonstressed, ambulatory subject supports the diagnosis of Diabetes Mellitus. ADA recommended reference range Performed By: #### P T, CBC, PTT, BMP, HEPATIC, CK, LIPASE, BNP, HS TROP #### [address] Potassium [Moles/Vol] 3.8 mmol/L Normal 3.5-5.1 [facility] Comment on above: Performed By: #### P T, CBC, PTT, BMP, HEPATIC, CK, LIPASE, BNP, HS TROP #### [address] Sodium [Moles/Vol] 141 mmol/L Normal 136-145 [facility] Comment on above: Performed By: #### P T, CBC, PTT, BMP, HEPATIC, CK, LIPASE, BNP, HS TROP #### [address] Urea nitrogen [Mass/Vol] 23 mg/dL Normal 7-25 [facility] Comment on above: Performed By: #### P T, CBC, PTT, BMP, HEPATIC, CK, LIPASE, BNP, HS TROP #### [address] [address] [facility] Basophils Auto (Bld) [#/Vol] Ordered By: Tad Barger on 03-24-2023 Basophils (Bld) [#/Vol] 0.1 10*3/uL 0.0-0.2 [facility] Basophils/100 WBC Auto (Bld) Ordered By: Tad Barger on 03-24-2023 Basophils/100 WBC (Bld) 0.9 % . [facility] Bilirubin Auto test strip Ql (U)Ordered By: Tad Barger on 03-24-2023 Bilirubin Ql (U) Negative Negative [facility] Bilirubin.direct [Mass/volum e] in Serum or PlasmaOrdered By: Tad Barger on 03-24-2023 Bilirubin.direct [Mass/Vol] 0.10 mg/dL 0.03-0.18 [facility] Bilirubin.total [Mass/volume ] in Serum or PlasmaOrdered By: Tad Barger on 03-24-2023 Bilirubin [Mass/Vol] 0.8 mg/dL 0.3-1.0 [facility] CT abdomen pelvis w conon CT abdomen pelvis w con [facility] Main [place] [id number] CT Scan Report Signed Patient: Tasneem Camarillo MR#: [id number] : 1975 Acct:[id number] Age/Sex: 48 / F ADM Date: 03/24/23 Loc: ER Room: Type: [facility] ER Attending Dr: Copies to: Tad Barger DO Ordering Provider: Tad Barger DO Date of Service: 03/24/23 CT/CT abdomen pelvis w con: abd pain CT ABDOMEN AND PELVIS WITH CONTRAST COMPARISON: 10/05/2021 CLINICAL DATA: Upper abdominal pain radiating to chest. Nausea. Spiral images were obtained through the abdomen and pelvis following 90 mL Isovue-300. This CT exam was performed using one or more following dose reduction techniques: Automated exposure control, adjustment of the mA and/or kV according to patient size, or use of iterative reconstruction technique. Limited cuts through the lung bases show continued asymmetric density at the left lower lobe, also present on the prior. There is also additional linear atelectasis or scarring. There is a punctate nodular density associated with the distal major fissure on the right (axial image 3), not included previously. There is potential fatty liver. The gallbladder is surgically absent. No common duct stones are identified. The spleen, pancreas and adrenal glands show no acute findings. There are symmetric bilateral renal nephrograms, without hydronephrosis. There is a tiny left renal cyst. The abdominal aorta is normal caliber. No enlarged lymph nodes or ascites are seen. The stomach is not well-distended and there is apparent wall thickening toward the antrum. The small bowel loops are not distended. Mild colonic stool is present. A high riding sigmoid colon is seen containing air. The bony structures are intact. Images through the pelvis show nondistended small bowel loops, some of which contain fluid. There is minimal distal colonic stool. No diverticular disease is noted. The appendix and uterus are surgically absent. No bladder abnormalities are noted for the degree of distention. No ascites is seen. CT/CT abdomen pelvis w con IMPRESSION: MINOR LEFT LOWER LOBE PARENCHYMAL CHANGE AND TINY INCIDENTAL RIGHT LOWER LOBE NODULE FATTY LIVER. APPARENT WALL THICKENING AT THE GASTRIC ANTRUM. THIS MIGHT RELATE TO INCOMPLETE DISTENTION THOUGH CLINICAL CORRELATION IS RECOMMENDED. NO BOWEL OR URINARY TRACT OBSTRUCTION. NO OTHER ACUTE FINDINGS. Impression dictated by: Bryanna Mitchell M.D.03/24/2023 2:33 PM Dictation Location: [place] [address] Transcribed By: [facility] 03/24/23 1433 Dictated By: Bryanna Mitchell MD 03/24/23 1420 Signed By: 03/24/23 1433 Normal [facility] Calcium [Mass/volume] in Ser um or PlasmaOrdered By: Tad Barger on 03-24-2023 Calcium [Mass/Vol] 9.3 mg/dL 8.6-10.3 [facility] Carbon dioxide, total [Moles /volume] in Serum or PlasmaOrdered By: Tad Barger on 03-24-2023 CO2 [Moles/Vol] 27.1 mmol/L 21.0-31.0 [facility] Chloride [Moles/volume] in S kaur or PlasmaOrdered By: Tad Barger on 03-24-2023 Chloride [Moles/Vol] 109 mmol/L 98-107 [facility] Complete Blood Count Auto Di ffon 03-24-2023 Basophils (Bld) [#/Vol] 0.1 10*3/uL Normal 0.0-0.2 [facility] Comment on above: Result Comment: PERF ORMED BY: [place] [address] PATHOLOGIST WIRELESS MANAGER JESSICA LYN M.D. Performed By: #### P T, CBC, PTT, BMP, HEPATIC, CK, LIPASE, BNP, HS TROP #### [address] Basophils/100 WBC (Bld) 0.9 % Normal . [facility] Comment on above: Performed By: #### P T, CBC, PTT, BMP, HEPATIC, CK, LIPASE, BNP, HS TROP #### [address] Eosinophils (Bld) [#/Vol] 0.2 10*3/uL Normal 0.0-0.45 [facility] Comment on above: Performed By: #### P T, CBC, PTT, BMP, HEPATIC, CK, LIPASE, BNP, HS TROP #### [address] Eosinophils/100 WBC (Bld) 3.1 % Normal . [facility] Comment on above: Performed By: #### P T, CBC, PTT, BMP, HEPATIC, CK, LIPASE, BNP, HS TROP #### [address] Erythrocyte distribution width (RBC) [Ratio] 14.1 % Normal 11.9-15.3 [facility] Comment on above: Performed By: #### P T, CBC, PTT, BMP, HEPATIC, CK, LIPASE, BNP, HS TROP #### [address] Hematocrit (Bld) [Volume fraction] 36.1 % Normal 34.0-46.4 [facility] Comment on above: Performed By: #### P T, CBC, PTT, BMP, HEPATIC, CK, LIPASE, BNP, HS TROP #### [address] Hemoglobin (Bld) [Mass/Vol] 12.1 g/dL Normal 11.8-15.4 [facility] Comment on above: Performed By: #### P T, CBC, PTT, BMP, HEPATIC, CK, LIPASE, BNP, HS TROP #### [address] Lymphocytes (Bld) [#/Vol] 3.2 10*3/uL Normal 1.00-4.8 [facility] Comment on above: Performed By: #### P T, CBC, PTT, BMP, HEPATIC, CK, LIPASE, BNP, HS TROP #### [address] Lymphocytes/100 WBC (Bld) 48.5 % Normal . [facility] Comment on above: Performed By: #### P T, CBC, PTT, BMP, HEPATIC, CK, LIPASE, BNP, HS TROP #### [address] MCH (RBC) [Entitic mass] 30.6 pg Normal 24.7-34.3 [facility] Comment on above: Performed By: #### P T, CBC, PTT, BMP, HEPATIC, CK, LIPASE, BNP, HS TROP #### [address] MCV (RBC) [Entitic vol] 90.9 fL Normal 80-100 [facility] Comment on above: Performed By: #### P T, CBC, PTT, BMP, HEPATIC, CK, LIPASE, BNP, HS TROP #### [address] Mean Corpuscular HGB Conc 33.7 g/dL Normal 32.0-35.0 [facility] Comment on above: Performed By: #### P T, CBC, PTT, BMP, HEPATIC, CK, LIPASE, BNP, HS TROP #### [address] Monocytes (Bld) [#/Vol] 0.7 10*3/uL Normal 0.0-0.8 [facility] Comment on above: Performed By: #### P T, CBC, PTT, BMP, HEPATIC, CK, LIPASE, BNP, HS TROP #### [address] Monocytes/100 WBC (Bld) 16.57 % Normal 0.00-20.00 [facility] Comment on above: Performed By: #### P T, CBC, PTT, BMP, HEPATIC, CK, LIPASE, BNP, HS TROP #### [address] Monocytes/100 WBC (Bld) 10.9 % Normal . [facility] Comment on above: Performed By: #### P T, CBC, PTT, BMP, HEPATIC, CK, LIPASE, BNP, HS TROP #### [address] Neutrophils (Bld) [#/Vol] 2.4 10*3/uL Normal 1.8-7.7 [facility] Comment on above: Performed By: #### P T, CBC, PTT, BMP, HEPATIC, CK, LIPASE, BNP, HS TROP #### [address] Neutrophils/100 WBC (Bld) 36.6 % Normal . [facility] Comment on above: Performed By: #### P T, CBC, PTT, BMP, HEPATIC, CK, LIPASE, BNP, HS TROP #### [address] NRBC% 0.0 /100{WBC} Normal 0-0.5 [facility] Comment on above: Performed By: #### P T, CBC, PTT, BMP, HEPATIC, CK, LIPASE, BNP, HS TROP #### [address] Platelet mean volume (Bld) [Entitic vol] 8.5 fL Normal 6.3-10.7 [facility] Comment on above: Performed By: #### P T, CBC, PTT, BMP, HEPATIC, CK, LIPASE, BNP, HS TROP #### [facility] [address] Platelets (Bld) [#/Vol] 272 10*3/uL Normal 150-450 [facility] Comment on above: Performed By: #### P T, CBC, PTT, BMP, HEPATIC, CK, LIPASE, BNP, HS TROP #### [facility] [address] RBC (Bld) [#/Vol] 3.97 10*6/uL Normal 3.60-5.00 [facility] Comment on above: Performed By: #### P T, CBC, PTT, BMP, HEPATIC, CK, LIPASE, BNP, HS TROP #### [facility] [address] WBC (Bld) [#/Vol] 6.6 10*3/uL Normal 3.8-11.6 [facility] Comment on above: Performed By: #### P T, CBC, PTT, BMP, HEPATIC, CK, LIPASE, BNP, HS TROP #### [facility] [address] Creatine Kinaseon 03-24-2023 CK [Catalytic activity/Vol] 279 U/L High [facility] Comment on above: Performed By: #### P T, CBC, PTT, BMP, HEPATIC, CK, LIPASE, BNP, HS TROP #### [facility] [address] Creatine kinase [Enzymatic a ctivity/volume] in Serum or PlasmaOrdered By: Tad Barger on 03-24-2023 CK [Catalytic activity/Vol] 279 U/L [facility] Creatinine [Mass/volume] in Serum or PlasmaOrdered By: Tad Barger on 03-24-2023 Creatinine [Mass/Vol] 1.23 mg/dL 0.60-1.20 [facility] ECG 12 lead ECGon 03-24-2023 ECG 12 lead ECG [facility] [place] [address] [place] [address] Electrocardiograph Report Signed Patient: Tasneem Camarillo MR#: [id number] 477 : 1975 Acct:[id number] Age/Sex: 48 / F ADM Date: 03/24/23 Loc: ER Room: Type: [facility] ER Attending Dr: Ordering Provider: Tad Barger DO Date of Service: 03/24/23 ECG/ECG 12 lead ECG: Chest Pain Copies to: Test Reason : Blood Pressure : 147/075 mmHG Vent. Rate : 056 BPM Atrial Rate : 056 BPM P-R Int : 150 ms QRS Dur : 084 ms QT Int : 444 ms P-R-T Axes : 063 044 036 degrees QTc Int : 428 ms Sinus bradycardia Otherwise normal ECG When compared with ECG of 01-OCT-2008 17:41, Vent. rate has decreased BY 32 BPM Nonspecific T wave abnormality no longer evident in Anterolateral leads Confirmed by Tad Barger DO ([id number]) on 03/24/2023 3:12:48 PM Referred By: Electronically Signed By:Tad Barger DO Transcribed By: MUS Signed By Tad Barger DO 4 1512 Normal [facility] Eosinophils Auto (Bld) [#/Vo l]Ordered By: Tad Barger on 03-24-2023 Eosinophils (Bld) [#/Vol] 0.2 10*3/uL 0.0-0.45 [facility] Eosinophils/100 WBC Auto (Bl d)Ordered By: Tad Barger on 03-24-2023 Eosinophils/100 WBC (Bld) 3.1 % . [facility] Erythrocyte distribution wid th Auto (RBC) [Ratio]Ordered By: Tad Barger on 03-24-2023 Erythrocyte distribution width (RBC) [Ratio] 14.1 % 11.9-15.3 [facility] Globulin Calc (S) [Mass/Vol] Ordered By: Tad Barger on 03-24-2023 Globulin (S) [Mass/Vol] 2.9 g/dL [facility] Glucose [Mass/volume] in Ser um or PlasmaOrdered By: Tad Barger on 03-24-2023 Glucose [Mass/Vol] 51 mg/dL 70-100 [facility] Comment on above: ADA recommended refe rence rangeRandom Glucose Reference Range is dependent on time and content of last meal. Glucose of more than 200 mg/dL in a nonstressed, ambulatory subject supports the diagnosis of Diabetes Mellitus. Hematocrit Auto (Bld) [Volum e fraction]Ordered By: Tad Barger on 03-24-2023 Hematocrit (Bld) [Volume fraction] 36.1 % 34.0-46.4 [facility] Hemoglobin [Mass/volume] in BloodOrdered By: Tad Barger on 03-24-2023 Hemoglobin (Bld) [Mass/Vol] 12.1 g/dL 11.8-15.4 [facility] Hepatic Panelon 03-24-2023 Albumin [Mass/Vol] 4.0 g/dL Normal 3.5-5.7 [facility] Comment on above: Performed By: #### P T, CBC, PTT, BMP, HEPATIC, CK, LIPASE, BNP, HS TROP #### [facility] [address] [place] [address] Albumin/Globulin [Mass ratio] 1.4 {ratio} Normal [facility] Comment on above: Performed By: #### P T, CBC, PTT, BMP, HEPATIC, CK, LIPASE, BNP, HS TROP #### [facility] [address] [place] [address] [place] ALP [Catalytic activity/Vol] 61 U/L Normal 34-104 [facility] Comment on above: Performed By: #### P T, CBC, PTT, BMP, HEPATIC, CK, LIPASE, BNP, HS TROP #### [facility] [address] [place] [address] [place] ALT [Catalytic activity/Vol] 17 U/L Normal 7-52 [facility] Comment on above: Performed By: #### P T, CBC, PTT, BMP, HEPATIC, CK, LIPASE, BNP, HS TROP #### [facility] [address] [place] [address] [place] AST [Catalytic activity/Vol] 28 U/L Normal 13-39 [facility] Comment on above: Performed By: #### P T, CBC, PTT, BMP, HEPATIC, CK, LIPASE, BNP, HS TROP #### [facility] [address] [place] [address] Bilirubin [Mass/Vol] 0.8 mg/dL Normal 0.3-1.0 [facility] Comment on above: Performed By: #### P T, CBC, PTT, BMP, HEPATIC, CK, LIPASE, BNP, HS TROP #### [address] Bilirubin,Indirect 0.7 mg/dL Normal [facility] Comment on above: Performed By: #### P T, CBC, PTT, BMP, HEPATIC, CK, LIPASE, BNP, HS TROP #### [address] Bilirubin.indirect [Mass/Vol] 0.10 mg/dL Normal 0.03-0.18 [facility] Comment on above: Performed By: #### P T, CBC, PTT, BMP, HEPATIC, CK, LIPASE, BNP, HS TROP #### [address] Globulin (S) [Mass/Vol] 2.9 g/dL Normal [facility] Comment on above: Performed By: #### P T, CBC, PTT, BMP, HEPATIC, CK, LIPASE, BNP, HS TROP #### [address] Protein [Mass/Vol] 6.9 g/dL Normal 6.4-8.9 [facility] Comment on above: Performed By: #### P T, CBC, PTT, BMP, HEPATIC, CK, LIPASE, BNP, HS TROP #### [address] INR in Platelet poor plasma by Coagulation assayOrdered By: Tad Barger on 03-24-2023 INR Coag (PPP) [Relative time] 0.9 {INR} [facility] Comment on above: INR Therapeutic Rang e A) Pre- and Peroperative OAT started two weeks before surgery. NOT HIP SURGERY: 1.5 - 2.5 HIP SURGERY: 2 - 3B) Primary and secondary prevention of venous THROMBOSIS: 2 - 3C) Active venous thrombosis, pulmonary embolismand prevention of recurrent venous thrombosis: 2 - 3D) Prevention of arterial thromboembolismincluding patients with mechanical heart valves: 3 - 4.5 Ketones Auto test strip (U) [Mass/Vol]Ordered By: Tad Barger on 03-24-2023 Ketones (U) [Mass/Vol] Negative Negative [facility] Leukocytes [#/volume] correc dieudonne for nucleated erythrocytes in Blood by Automated counOrdered By: Tad Barger on 03-24-2023 WBC corrected for nucl RBC Auto (Bld) [#/Vol] 6.6 10*3/uL 3.8-11.6 [facility] Lipaseon 03-24-2023 Lipase [Catalytic activity/Vol] 91.0 U/L High 11.0-82.0 [facility] Comment on above: Result Comment: PERF ORMED BY: [place] [address] PATHOLOGIST WIRELESS MANAGER JESSICA LYN M.D. Performed By: #### P T, CBC, PTT, BMP, HEPATIC, CK, LIPASE, BNP, HS TROP #### [address] Lipase [Enzymatic activity/v olume] in Serum or PlasmaOrdered By: Tad Barger on 03-24-2023 Lipase [Catalytic activity/Vol] 91.0 U/L 11.0-82.0 [facility] Lymphocytes Auto (Bld) [#/Vo l]Ordered By: Tad Barger on 03-24-2023 Lymphocytes (Bld) [#/Vol] 3.2 10*3/uL 1.00-4.8 [facility] Lymphocytes/100 WBC Auto (Bl d)Ordered By: Tad Barger on 03-24-2023 Lymphocytes/100 WBC (Bld) 48.5 % . [facility] MCH Auto (RBC) [Entitic mass ]Ordered By: Tad Barger on 03-24-2023 MCH (RBC) [Entitic mass] 30.6 pg 24.7-34.3 [facility] MCHC Auto (RBC) [Mass/Vol]Or dered By: Tad Barger on 03-24-2023 MCHC (RBC) [Mass/Vol] 33.7 g/dL 32.0-35.0 [facility] MCV Auto (RBC) [Entitic vol] Ordered By: Tad Barger on 03-24-2023 MCV (RBC) [Entitic vol] 90.9 fL 80-100 [facility] Monocyte distribution width [Entitic volume] in Blood by AutomatedOrdered By: Tad Barger on 03-24-2023 Monocyte distribution width Auto (Bld) [Entitic vol] 16.57 % 0.00-20.00 [facility] Monocytes Auto (Bld) [#/Vol] Ordered By: Tad Barger on 03-24-2023 Monocytes (Bld) [#/Vol] 0.7 10*3/uL 0.0-0.8 [facility] Monocytes/100 WBC Auto (Bld) Ordered By: Tad Barger on 03-24-2023 Monocytes/100 WBC (Bld) 10.9 % . [facility] Natriuretic peptide B [Mass/ Vol]Ordered By: Tad Barger on 03-24-2023 Natriuretic peptide B (Bld) [Mass/Vol] 244.0 pg/mL 5-100 [facility] Neutrophils Auto (Bld) [#/Vo l]Ordered By: Tad Barger on 03-24-2023 Neutrophils (Bld) [#/Vol] 2.4 10*3/uL 1.8-7.7 [facility] Neutrophils/100 WBC Auto (Bl d)Ordered By: Tad Barger on 03-24-2023 Neutrophils/100 WBC (Bld) 36.6 % . [facility] No Panel InformationOrdered By: Tad Barger on 03-24-2023 Estimated GFR (CKD-EPI) 53.870 mL/Min [facility] Creatinine Clearance (Chem 49.35 [facility] Nucleated erythrocytes [Pres ence] in Blood by Automated countOrdered By: Tad Barger on 03-24-2023 Nucleated RBC Auto Ql (Bld) 0.0 /100{WBC} 0-0.5 [facility] Partial Thromboplastin Timeo n 03-24-2023 aPTT Coag (Bld) [Time] 29.2 s Normal 25.1-36.5 [facility] Comment on above: Result Comment: A he matocrit value greater than 55% may lead to inaccurate results in coagulation testing. Patients having hematocrit values >55% require a special collection tube for coagulation studies. Please contact the laboratory at [phone] for redraw instructions. PERFORMED BY: [facility] [address] [place] [address] PATHOLOGIST WIRELESS MANAGER JESSICA LYN M.D. Performed By: #### P T, CBC, PTT, BMP, HEPATIC, CK, LIPASE, BNP, HS TROP ####[facility] [address] [place] [address] [facility] Platelet mean volume Auto (B ld) [Entitic vol]Ordered By: Tad Barger on 03-24-2023 Platelet mean volume (Bld) [Entitic vol] 8.5 fL 6.3-10.7 [facility] Platelets Auto (Bld) [#/Vol] Ordered By: Tad Barger on 03-24-2023 Platelets (Bld) [#/Vol] 272 10*3/uL 150-450 [facility] Potassium [Moles/volume] in Serum or PlasmaOrdered By: Tad Barger on 03-24-2023 Potassium [Moles/Vol] 3.8 mmol/L 3.5-5.1 [facility] Protein Auto test strip (U) [Mass/Vol]Ordered By: Tad Barger on 03-24-2023 Protein (U) [Mass/Vol] Negative Negative Fi [facility] Protein [Mass/volume] in Ser um or PlasmaOrdered By: Tad Barger on 03-24-2023 Protein [Mass/Vol] 6.9 g/dL 6.4-8.9 [facility] Prothrombin Time INRon 03-24 INR Coag (PPP) [Relative time] 0.9 {INR} Normal [facility] Comment on above: Result Comment: INR Therapeutic Range A) Pre- and Peroperative OAT started two weeks before surgery. NOT HIP SURGERY: 1.5 - 2.5 HIP SURGERY: 2 - 3 B) Primary and secondary prevention of venous THROMBOSIS: 2 - 3 C) Active venous thrombosis, pulmonary embolism and prevention of recurrent venous thrombosis: 2 - 3 D) Prevention of arterial thromboembolism including patients with mechanical heart valves: 3 - 4.5 Performed By: #### P T, CBC, PTT, BMP, HEPATIC, CK, LIPASE, BNP, HS TROP ####[facility] [address] [place] [id number] [facility] PT Coag (PPP) [Time] 10.0 s Normal 9.0-12.9 [facility] Comment on above: Result Comment: A he matocrit value greater than 55% may lead to inaccurate results in coagulation testing. Patients having hematocrit values >55% require a special collection tube for coagulation studies. Please contact the laboratory at [phone] for redraw instructions. Performed By: #### P T, CBC, PTT, BMP, HEPATIC, CK, LIPASE, BNP, HS TROP ####[facility] [address] [place] [id number] [facility] Prothrombin time (PT)Ordered By: Tad Barger on 03-24-2023 PT Coag (PPP) [Time] 10.0 s 9.0-12.9 [facility] Comment on above: A hematocrit value g reater than 55% may lead to inaccurate results in coagulation testing. Patients having hematocrit values >55% require a special collection tube for coagulation studies. Please contact the laboratory at [phone] for redraw instructions. RBC Auto (Bld) [#/Vol]Ordere d By: Tad Barger on 03-24-2023 RBC (Bld) [#/Vol] 3.97 10*6/uL 3.60-5.00 [facility] Serum or plasma albumin/glob ulin mass ratioOrdered By: Tad Barger on 03-24-2023 Albumin/Globulin [Mass ratio] 1.4 {ratio} [facility] Serum or plasma anion gap de terminationOrdered By: Tad Barger on 03-24-2023 Anion gap [Moles/Vol] 8.7 mmol/L 6.0-15.0 [facility] Serum or plasma non-glucuron idated bilirubin measurement (mass/volume)Ordered By: Tad Barger on 03-24-2023 Bilirubin.indirect [Mass/Vol] 0.7 mg/dL [facility] Sodium [Moles/volume] in Ser um or PlasmaOrdered By: Tad Barger on 03-24-2023 Sodium [Moles/Vol] 141 mmol/L 136-145 [facility] Troponin I High Sensitivityo n 03-24-2023 Troponin I High Sensitivity 4.9 pg/mL Normal 0.0-15.0 [facility] Comment on above: Result Comment: PERF ORMED BY: [facility] [address] [place] [address] PATHOLOGIST WIRELESS MANAGER JESSICA LYN M.D. Performed By: #### P T, CBC, PTT, BMP, HEPATIC, CK, LIPASE, BNP, HS TROP ####[facility] [address] [place] [address] Troponin I.cardiac [Mass/vol ume] in Serum or Plasma by Detection limit <= 0.01 ng/Ordered By: Tad Barger on 03-24-2023 Troponin I.cardiac DL <= 0.01 ng/mL [Mass/Vol] 4.9 pg/mL 0.0-15.0 [facility] Urea nitrogen [Mass/volume] in Serum or PlasmaOrdered By: Tad Barger on 03-24-2023 Urea nitrogen [Mass/Vol] 23 mg/dL 10-01 [facility] Urinalysison 03-24-2023 Appearance (U) Clear Normal Clear [facility] Comment on above: Order Comment: Name Collection Type:: Clean-Voided Midstream Performed By: #### U A #### [facility] [address] [place] [address] [place] Bilirubin,Urine Negative Normal Negative [facility] Comment on above: Order Comment: Name Collection Type:: Clean-Voided Midstream Performed By: #### U A #### [facility] [address] [place] [address] [place] Color (U) Yellow Normal Yellow [facility] Comment on above: Order Comment: Name Collection Type:: Clean-Voided Midstream Performed By: #### U A #### [facility] [address] Glucose Ql (U) Normal Normal Normal [facility] Comment on above: Order Comment: Name Collection Type:: Clean-Voided Midstream Performed By: #### U A #### [facility] [address] [place] [address] Ketones Ql (U) Negative Normal Negative [facility] Comment on above: Order Comment: Name Collection Type:: Clean-Voided Midstream Performed By: #### U A #### [facility] [address] [place] [address] Leukocyte esterase Test strip Ql (U) Negative Normal Negative [facility] Comment on above: Order Comment: Name Collection Type:: Clean-Voided Midstream Performed By: #### U A #### [facility] [address] [place] [address] Nitrite,Urine Negative Normal Negative [facility] Comment on above: Order Comment: Name Collection Type:: Clean-Voided Midstream Performed By: #### U A #### [address] Occult Blood,Urine Negative Normal Negative [facility] Comment on above: Order Comment: Name Collection Type:: Clean-Voided Midstream Result Comment: PERF ORMED BY: [place] [address] PATHOLOGIST WIRELESS MANAGER JESSICA LYN M.D. Performed By: #### U A #### [facility] [address] [place] [address] pH (U) 5.5 [pH] Normal 5.0-9.0 [facility] Comment on above: Order Comment: Name Collection Type:: Clean-Voided Midstream Performed By: #### U A #### [facility] [address] [place] [address] [place] Protein,Urine Negative Normal Negative [facility] Comment on above: Order Comment: Name Collection Type:: Clean-Voided Midstream Performed By: #### U A #### [address] Specificy [place],Urine 1.020 Normal 1.001-1.03 0 [facility] Comment on above: Order Comment: Name Collection Type:: Clean-Voided Midstream Performed By: #### U A #### [facility] [address] [place] [address] [place] Urobilinogen,Urine Normal Normal Normal [facility] Comment on above: Order Comment: Name Collection Type:: Clean-Voided Midstream Performed By: #### U A #### [facility] [address] [place] [id number] [place] Urine appearanceOrdered By: Tad Barger on 03-24-2023 Appearance (U) Clear Clear [facility] Urine colorOrdered By: Tad Barger on 03-24-2023 Color (U) Yellow Yellow [facility] Urine glucose measurement by automated test strip (mass/volume)Ordered By: Tad Barger on 03-24-2023 Glucose Auto test strip (U) [Mass/Vol] Normal mg/dL Normal [facility] Urine hemoglobin detection b y automated test stripOrdered By: Tad Barger on 03-24-2023 Hemoglobin Auto test strip Ql (U) Negative Negative [facility] Urine leukocyte esterase det ection by automated test stripOrdered By: Tad Barger on 03-24-2023 Leukocyte esterase Auto test strip Ql (U) Negative Negative [facility] Urine nitrite detection by a utomated test stripOrdered By: Tad Barger on 03-24-2023 Nitrite Auto test strip Ql (U) Negative Negative [facility] Urobilinogen Auto test strip (U) [Mass/Vol]Ordered By: Tad Barger on 03-24-2023 Urobilinogen (U) [Mass/Vol] Normal mg/dL Normal [facility] WBC Auto (Bld) [#/Vol]Ordere d By: Tad Barger on 03-24-2023 WBC (Bld) [#/Vol] 6.6 10*3/uL 3.8-11.6 [facility] XR chest 1V portableon 03-24 XR chest 1V portable [facility] [place] [address] [place] [address] XRay Report Signed Patient: Tasneem Camarillo MR#: [id number] 477 : 1975 Acct:[id number] Age/Sex: 48 / F ADM Date: 03/24/23 Loc: ER Room: Type: [facility] ER Attending Dr: Copies to: Tad Barger DO Ordering Provider: Tad Barger DO Date of Service: 03/24/23 XR/XR chest 1V portable: Chest Pain PORTABLE AP ERECT CHEST 1244 hours CLINICAL HISTORY: Upper abdominal pain COMPARISON: 10/01/2008 The heart is within normal limits. There is no vascular congestion. The lungs, as visualized, are clear. There is no effusion or pneumothorax. The osseous structures are intact. XR/XR chest 1V portable IMPRESSION: NO ACUTE FINDINGS Impression dictated by: Bryanna Mtichell M.D.03/24/2023 1:24 PM Dictation Location: [place] [address] Transcribed By: YESY 03/24/23 132 Dictated By: Bryanna Mitchell MD 03/24/23 1323 Signed By: 03/24/23 1324 Normal [facility] pH Auto test strip (U)Ordere d By: Tad Barger on 03-24-2023 pH (U) 1.020 [pH] 1.001-1.03 0 [facility] pH (U) 5.5 [pH] 5.0-9.0 [facility] OT Initial Evalutationon OT Initial Evalutation No report was sent Normal [employer] Therapy Communicationon 10-08 Therapy Communication Message TASNEEM CAMARILLO no showed today 10/23/2022. 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 PLAN: Treatment options were discussed. We talked about operative and nonoperative strategies. Recommendations were made for a two-month period of aggressive formal therapy working to try and see improvement without revision surgery. Obviously, she had surgery for contracture and she ended up as bad, or worse, than she was. She understands that if we go back again, not only could that happen, but she could have damage to nerve, artery, or tendon given the scar formation from the previous surgery. I think there is a chance, still, to see improvement and avoid surgery altogether. We need her to see our hand therapist or have a custom splint built that we can march out over time, imparting more and more extension force and to work with Therapy on aggressive techniques. If she cannot manage this, then probably we will not even operate because she will not do well with the aggressive therapy that would be necessary immediately postoperative. I will see her back in two months. The soft tissue envelope is too firm to operate on at this point, so that at least needs time to mature. If she is not making adequate progress and if there is effort on her end, we may consider revision surgery for PIP flexion contracture release. This time, we will not pin it. She will need preapproval for therapy in the immediate postoperative period to allow for aggressive therapy starting within the first two or three days postoperative. No x-rays necessary upon return to the office. The date of her surgical release was May 27, 2022. Chief Complaint Status post injury in the workplace with right small finger proximal interphalangeal fracture/dislocation with proximal interphalangeal joint flexion contracture. History of Present IllnessThe patient presents today for ongoing evaluation of the right small finger flexion contracture. The patient had an injury in the workplace. She developed PIP flexion contracture. She had surgery in [place]. The operative note indicates that the volar plate was released and full extension was achieved. The digit was pinned across the PIP joint for a period of time. It does not sound as though therapy was started until about four weeks postoperative. She experienced return of the flexion contracture. She presents today for ongoing evaluation. Active Problems Problems Bilateral foot pain (729.5) (M79.671,M79.672) Complex regional pain syndrome type 1 of left lower extremity (337.22) (G90.522) Dislocation of finger, sequela (905.6) (S63.259S) Joint contracture (718.40) (M24.50) Post-op pain (338.18) (G89.18) Past Medical History The patient's past medical history was reviewed in the electronic medical record. There are no interval updates. The patient is not and not within three months . Family History Mother Family history of colon cancer (V16.0) (Z80.0) Family history of diabetes mellitus (V18.0) (Z83.3) Social History Problems No alcohol use Non-smoker (V49.89) (Z78.9) Allergies Medication Reglan Recorded By: Janny Hernandez; 10/25/2016 3:05:01 PM Sulfa Drugs Recorded By: Janny Hernandez; 10/25/2016 3:05:01 PM sumatriptan Recorded By: Janny Hernandez; 10/25/2016 3:05:01 PM Current Meds Medication NameInstruction Alendronate Sodium 40 MG TABSTAKE 1 TABLET Daily for 6 weeks lamoTRIgine 200 MG Oral Tablet PARoxetine HCl - 30 MG Oral TabletTAKE 2 TABLETS DAILY. Physical Exam GENERAL: No acute distress and breathing comfortably; pleasant and cooperative with the examination. EXTREMITIES: Evaluation of the right upper extremity finds the patient to have a palpable radial artery at the wrist with brisk capillary refill to all digits. The patient has intact sensorium to axillary, radial, median and ulnar nerves. There are no open wounds. There are no signs of infection. There is no evidence of lymphedema or lymphatic streaking. The patient has supple compartments of the right arm, forearm and hand. The patient shows evidence of components of both PIP and DIP flexion contracture to the right small finger. She has pain with attempt at passive extension. Signatures Electronically signed by : Josephine Acosta, ; Oct 21 2022 9:07AM EST (Press Shop Supervisor/Recorde r) Electronically signed by : Humphrey Pfeiffer DO; Oct 28 2022 10:32AM EST Normal [employer] HAND MIN 3 VIEWSon 3 HAND MIN 3 VIEWS Patient Name: TASNEEM CAMARILLO STUDY: HAND MIN 3 VIEWS INDICATION: pain, old injury G89.18: Post-op pain. COMPARISON: None ACCESSION NUMBER(S): [id number] ORDERING CLINICIAN: MELI BRAVO FINDINGS: Flexion deformity with some arthrosis at the right 5th proximal interphalangeal joint likely related to remote fracture. No acute findings right hand. 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 No acute findings right hand. Electronically signed by: CARLA SINGH MD Normal [facility] Initial Visit (Orthopaedic S urgery)on 09-23-2022 Initial Visit (Orthopaedic Surgery) Diagnoses/Problems Assessed Joint contracture (718.40) (M24.50) Dislocation of finger, sequela (905.6) (S63.259S) Orders Dislocation of finger, sequela, Joint contracture Occupational Therapy - General Referral (Upper Extremity) Evaluation and Treatment Evaluate AND Treat Status: Hold For - Scheduling Requested for: [id number] Provider Impressions ASSESSMENT: Status post injury in the workplace with right small finger proximal interphalangeal fracture/dislocation with proximal interphalangeal joint flexion contracture. PLAN: Treatment options were discussed. We talked about operative and nonoperative strategies. We explained the challenges with the proximal interphalangeal joint in general, and specifically as it relates to PIP flexion contracture. We are seeking a copy of the operative note, which she will provide, to understand exactly what was done. I think potentially, we could try a different protocol whereby she could start with therapy on the front end and have a good understanding of what is supposed to happen, have a repeat surgical release, and then get cracking with therapy within a day or two after the surgical release and possibly achieve a better outcome than she is currently having. We will seek approval to get going with therapy through her [facility] organization. I will see her back in three weeks to review the operative note and decide where we go from there. Chief Complaint [facility] Lt ring finger xrays at History of Present IllnessThe patient presents today for evaluation of the right small finger. She was injured in October of 2021. It sounds as though she had a right small finger PIP fracture/dislocation. She underwent nonoperative management of that circumstance. The patient then developed a flexion posture to the right small finger. It sounds as though she had a PIP flexion contracture. She was seen by a hand surgeon in [place] and ultimately underwent a surgical release. She is convinced that just a tendon was released and not the joint itself. She states that a pin was placed. She believes she started therapy about a month after the surgical intervention. She states that the finger now sits in a flexed position and she has pain and dysfunction on a daily basis. The surgical release procedure was in May of 2022. The patient is right hand dominant and otherwise healthy. The injury occurred in the workplace. 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 Active Problems Problems Bilateral foot pain (729.5) (M79.671,M79.672) Complex regional pain syndrome type 1 of left lower extremity (337.22) (G90.522) Post-op pain (338.18) (G89.18) Past Medical History The patient's past medical history, family history, social history, and review of systems were documented on the patient medical intake form. The medical intake form was reviewed and scanned into the electronic medical record for future use. The patient is not and not within three months . History is otherwise negative except as stated in the HPI. Family History Mother Family history of colon cancer (V16.0) (Z80.0) Family history of diabetes mellitus (V18.0) (Z83.3) Social History Problems No alcohol use Non-smoker (V49.89) (Z78.9) Allergies Reglan Recorded By: Janny Hernandez; 10/25/2016 3:05:01 PM Sulf[facility] Drugs Recorded By: Janny Hernandez; 10/25/2016 3:05:01 PM sumatriptan Recorded By: Janny Hernandez; 10/25/2016 3:05:01 PM Current Meds Medication NameInstruction Alendronate Sodium 40 MG TABSTAKE 1 TABLET Daily for 6 weeks lamoTRIgine 200 MG Oral Tablet PARoxetine HCl - 30 MG Oral TabletTAKE 2 TABLETS DAILY. Physical Exam GENERAL: Alert and oriented to person, place, and time. No acute distress and breathing comfortably; pleasant and cooperative with the examination. HEENT: Head is normocephalic and atraumatic. NECK: Supple, no visible swelling. CARDIOVASCULAR: Hemodynamically stable. RESPIRATORY: No audible wheezing, unlabored respirations. ABDOMEN: Soft, nondistended. EXTREMITIES: Evaluation of the right upper extremity finds the patient to have a palpable radial artery at the wrist with brisk capillary refill to all digits. The patient has intact sensorium to axillary, radial, median and ulnar nerves. There are no open wounds. There are no signs of infection. There is no evidence of lymphedema or lymphatic streaking. The patient has supple compartments of the right arm, forearm and hand. The patient shows a substantial flexion contracture to the right small finger at the PIP joint which is not passively correctable. The patient shows a palm to pulp distance of zero with a near full composite fist. Signatures Electronically signed by : Josephine Acosta, ; Sep 24 2022 3:05PM EST (Press Shop Supervisor/Recorde r) Electronically signed by : Humphrey Pfeiffer, DO; Sep 24 2022 5:46PM EST Normal [facility] 09-23-2022 XR Hand 3 Views Normal [facility] Work Phone: Established Visit (Pain Medi cine)on 07-08-2022 Established Visit (Pain Medicine) Diagnoses/Problems Complex regional pain syndrome type 1 of left lower extremity (337.22) (G90.522) Orders Complex regional pain syndrome type 1 of left lower extremity Adult Psychology Referral Evaluation and Treatment Evaluate AND Treat preop eval Status: Complete Done: 08Jul2022 Scheduled virtual Patient Discussion/Summary Discussed with patient possible etiology of pain. At this point time we have tried ketamine infusions multiple medications as well as multiple sympathetic blocks and minimal relief we discussed with you spinal cord stimulation as well as dorsal root ganglion stimulation and given you handouts please review them and let us know if you would like to proceed. Provider Impressions Patient is a 47-year-old female presenting with signs and symptoms of CRPS of the left lower extremity secondary to a Worker's Compensation injury. ? Patient to continue with home exercise program daily ? Discussed with patient possible spinal cord stimulation versus DRG stimulation risk-benefit of the procedure were described to the patient she would like to do research on her own and get back to us if she would like to proceed but is needing to choose the [employer] device over the DRG device as she has experience with that and she would like the option to be able to obtain an MRI in the future without having to explant the device. ? Patient scheduled for psych approval for implantable stimulator device. Attending Attestation: I saw and evaluated the patient with the PGY-5 Fellow, Dr. Marsh, participated in farrell portions of the service and directly involved in management of the patient. Discussed with resident and agree with the resident's findings and plan as documented in the resident's note. Chief Complaint left lower extremity pain History of Present Illness CC: foot pain i have CRPS HPI: 44 year old female with history of complex regional pain syndrome presenting with left lower leg and ankle pain. Patient last seen 2019. Patient?s pain reportedly first started after work related injury about 8 years ago a battery fell on her foot she had a WC case open but has been closed since 2012. Patient?s discomfort is reportedly primarily in the medial aspect of her left ankle and travels up to her mid-calf. Patient has reportedly received multiple lumbar sympathetic nerve blocks in the past and has tried prednisone, tramadol, and gabapentin with minimal pain relief. Patient says the ketamine infusion she had several years ago provided her with the temporary relief.Patient does not report any new fever, chills, or loss of bladder and bowel control. Review of Systems 13 systems all normal except noted in HP. Patient denies any fevers chills nausea vomiting denies any changes about bowel or bladder Active Problems Bilateral foot pain (729.5) (M79.671,M79.672) Complex regional pain syndrome type 1 of left lower extremity (337.22) (G90.522) Family History Family history of colon cancer (V16.0) (Z80.0) Family history of diabetes mellitus (V18.0) (Z83.3) Social History No alcohol use Non-smoker (V49.89) (Z78.9) Allergies Reglan Recorded By: Janny Hernandez; 10/25/2016 3:05:01 PM Sulfa Drugs Recorded By: Janny Hernandez; 10/25/2016 3:05:01 PM sumatriptan Recorded By: Janny Hernandez; 10/25/2016 3:05:01 PM Current Meds Medication NameInstruction Alendronate Sodium 40 MG TABSTAKE 1 TABLET Daily for 6 weeks lamoTRIgine 200 MG Oral Tablet PARoxetine HCl - 30 MG Oral TabletTAKE 2 TABLETS DAILY. Vitals Vital Signs Recorded: 08Jul2022 02:44PM Height5 ft 2 in Quzhff356 lb BMI Qoacyrxdbw61.78 kg/m2 BSA Calculated1.59 Tobacco Useb) No Falls Screening (Age 18+)a) No falls within the last year Pain Scale4 Physical Exam Constitutional: No acute distress, well appearing and well nourished. Patient appears stated age. Eyes: conjunctiva non-icteric and eye lids are without obvious rash or drooping. Pupils are symmetric. Ears, Nose, Mouth, and Throat: External ears and nose appear to be without deformity or rash. No lesions or masses noted. Hearing is grossly intact. Neck:. No JVD noted, tracheal position is midline. No goiter noted on assessment of thyroid. Head and Face: examination of the head and face revealed no abnormalities. Respiratory: No gasping or shortness of breath noted, no use of accessory muscles noted. Cardiovascular: Examination for edema is normal. Lymphatic: No lymphadenopathy noted in the anterior cervical or supra/infraclavicular regions bilaterally. Skin: No rashes or open lesions/ulcers identified on skin. No induration/tightening noted with palpation of skin. Hair present on all extremities and digits. Nails are normal. Musculoskeletal: normal Digits/Nails show no clubbing or cyanosis. No asymmetry or masses noted in the head/neck. Examination of muscles/joints/bones show no gross atrophy and no abnormal/involuntary movements in the head/neck. Normal range of motion. Neurol (more content not included)... [facility]LV[facility] WO CONon 06-13 CT ABD/PELVIS WO CON EXAM: CT SCAN OF TH E ABDOMEN AND PELVIS WITHOUT IV CONTRAST DATE OF EXAM: 06/12/2022 11:39 PM EDT HISTORY: NAUSEA WITH VOMITING, UNSPECIFIED in a 47-year-old female COMPARISON: None. TECHNIQUE: CT examination of the abdomen and pelvis with sagittal and coronal reformations was performed without intravenous contrast. CT dose lowering techniques were used, to include: automated exposure control, adjustment for patient size, and/or use of iterative reconstruction. CONTRAST: None. Note: The exam is limited because some types of pathology may not be adequately demonstrated due to lack of contrast enhancement. FINDINGS: Lower Chest: Normal Free Air: None. Liver: Normal Gallbladder: Removed Common Bile Duct: Normal Pancreas: Normal Spleen: Normal Adrenal Glands: Normal Kidneys: Right Kidney: Nonobstructing punctate stone upper pole. Right Ureter: Portions of the right ureter which are visualized measure within normal. Left Kidney: Normal. Left Ureter: Portions of the left ureter which are visualized measure within normal limits. GI Tract: Stomach: Stomach is decompressed Small Bowel: Normal Appendix: Normal appendix on coronal image 43 Large Bowel: Normal Mesentery/Peritoneum: Normal Vasculature: Normal Lymph Nodes: Normal Abdominal Wall: Normal Bladder: Decompressed Reproductive: Normal Musculoskeletal: Normal Free Fluid: None. IMPRESSION: 1. Nonobstructing punctate right-sided nephrocalcinosis. 2. Cholecystectomy. 3. Otherwise unremarkable noncontrast CT of the abdomen and pelvis for acute pathology. Electronically authenticated by: VALARIE GOSS Date: 2022-06-13 00:[address] [facility] CT CHEST WO CONon 06-13-2022 CT CHEST WO CON EXAMINATION: CT CHES T WO CON 06/12/2022 HISTORY: NAUSEA WITH VOMITING, UNSPECIFIED. COMPARISON: CT of the abdomen and pelvis without contrast 04/11/2022. TECHNIQUE: 3 mm sections were obtained from the thoracic inlet through the diaphragm without the use of contrast. Coronal and sagittal reconstructed images were obtained. CT examination of the chest without IV contrast. Coronal and sagittal reformations were performed. Dose reduction techniques were achieved by using automated exposure control and/or adjustment of mA and/or kV according to patient size and/or use of iterative reconstruction technique. FINDINGS: Small focus of fatty infiltration near the fissure of the falciform ligament noted. Gallbladder is surgically absent. Upper abdominal contents demonstrate no acute abnormality. Prior gastric fundoplication suggested. Esophagus appears unremarkable. Heart size is normal. Aorta is nonaneurysmal. No significantly enlarged adenopathy noted. A stellate lesion involving the basilar segments of the left lower lobe has Y-shaped morphology. This is perivascular in distribution. This has anterior to posterior measurement of 2.7 mm with transverse width of 2.0 cm. Mild chronic symmetric biapical fibrosis is noted. There are 2 subcentimeter noncalcified nodules along the right minor fissure, image #40. These measure 3 and 4 mm respectively. There are 2 subcentimeter subpleural nodules involving the right middle lobe on image #66. Each measures 3 mm and is unchanged. A nodule laterally involving the left lower lobe on image 66 measuring 4 mm is unchanged. There is a subacute nondisplaced anterior left fifth rib fracture deformity on image #59. IMPRESSION: 1. Prior cholecystectomy and gastric fundoplication. 2. Indeterminate stellate Y-shaped infiltrate involving the left lower lobe unchanged compared to study from 04/11/2022 and increased in size compared to studies dating back to 06/02/2017. Primary pulmonary neoplasia cannot be excluded. 3. Subcentimeter subpleural nodules involving the right middle lobe as well as laterally located left lower lobe subcentimeter nodule are unchanged compared to study from 04/11/2022. Similar size nodules along the right minor fissure noted. Continued follow up is recommended. 4. Chronic biapical fibrosis. No edema, failure or pneumonia otherwise noted. No significantly enlarged adenopathy. 5. Subacute healing anterior left fifth rib fracture deformity noted. Electronically authenticated by: RULA RAYNA Date: 2022-06-13 00:[address] [facility] ER URINE PROFILEon 3 Bilirubin Ql (U) MODERATE Abnormal NEGATIVE [facility] Comment on above: Performed By: #### Leonila LOMBARDI UMICRO ####[facility] M[address] [place], [place] [address]Dr. Yadiel Acosta Clarity (U) CLEAR Normal CLEAR [facility] Comment on above: Performed By: #### Leonila LOMBARDI UMICRO ####[facility] Z[address] [place], [place] [address]Dr. Yadiel Acosta Color (U) YELLOW Normal YELLOW [facility] Comment on above: Performed By: #### Leonila LOMBARDI UMICRO ####[facility] [address] [place], [place] [address]Dr. Yadiel GARCIAD A micrscopic examina tion will be performed if indicated. Normal [facility] Comment on above: Performed By: #### Leonila LOMBARDI UMICRO ####[facility] Wncy[address]fez[address] [place], [place] [address]Dr. Yadiel Acosta Glucose Ql (U) Negative Normal NEGATIVE [facility] Comment on above: Performed By: #### Leonila LOMBARDI UMICRO ####[facility] Jzxyty[address]kg[address] [place], [place] [address]Dr. Yadiel Acosta Hemoglobin Ql (U) SMALL Abnormal NEGATIVE The [facility] Comment on above: Performed By: #### eLonila LOMBARDI UMICRO ####[facility] [address] [place], [place] [address]Dr. Yadiel Acosta Ketones Ql (U) Negative Normal NEGATIVE [facility] Comment on above: Performed By: #### LALY ALLAN ####[facility] [address] [place] [address]Dr. Yadiel Acosta LEUKOCYTES Negative Normal NEGATIVE [facility] Comment on above: Performed By: #### ROCIO ALLANRO ####[facility] [address] [place] [address]Dr. Yadiel Acosta Nitrite Ql (U) Negative Normal NEGATIVE [facility] Comment on above: Performed By: #### ROCIO ALLANRO ####[facility] [address] [place], [place] [address]Dr. Yadiel Acosta pH (U) 5.5 [pH] Normal 5-9 [facility] Comment on above: Performed By: #### ROCIO ALLANRO ####[facility] [address] [place], [place] [address]Dr. Yadiel Acosta SPEC GRAVITY >=1.030 Abnormal 1.005-<=1. 025 [facility] Comment on above: Performed By: #### ROCIO ALLANRO ####[facility] J[address] [place], [place] [address]Dr. Yadiel Acosta UA PROTEIN Negative Normal NEGATIVE/ TRACE [facility] Comment on above: Performed By: #### ROCIO ALLANRO ####[facility] Z[address]to[address] [place], [place] [address]Dr. Yadiel Acosta UR MICRO IND INDICATED Normal [facility] Comment on above: Performed By: #### LALY ALLAN ####[facility] [address] [place], [place] [address]Dr. Yadiel Acosta Urobilinogen Qn (U) 0.2 {Stan'U}/dL Normal 0.2 - 1. [address] [facility] Comment on above: Performed By: #### ROCIO ALLANRO ####[facility] [address] [place], [place] [address]Dr. Yadiel Acosta INFLUENZA A AND B AGon 06-13 INFLUANEGH SEE BELOW Normal [facility] Comment on above: Result Comment: Nega tive for Flu A protein angiten. Infection due to Flu A cannot be ruled out. Flu A angiten in the sample may be below the detection limit of the test. Performed By: #### I NFLUAB ####[facility] X[address] [place], [place] [address]Dr. Yadiel Acosta INFLUBNEGH SEE BELOW Normal [facility] Comment on above: Result Comment: Nega tive for Flu B protein antigen. Infection due to Flu B cannot be ruled out. Flu B antigen in the sample may be below the detection limit of the test. Performed By: #### I NFLUAB ####[facility] [address] [place], [place] [address]Dr. Yadiel Acosta INFLUENZA A AG Negative Normal NEGATIVE SEE COMMENT [facility] Comment on above: Performed By: #### I NFLUAB ####[facility] [address] [place], [place] [address]Dr. Yadiel Acosta INFLUENZA B AG Negative Normal NEGATIVE SEE COMMENT [facility] Comment on above: Performed By: #### I NFLUAB ####[facility] [address] [place], [place] [address]Dr. Yadiel Acosta LIPASEon 06-13-2022 Lipase [Catalytic activity/Vol] 160.0 U/L Normal 73.0-393.0 [facility] Comment on above: Performed By: #### C MANOLO, LIPA ####[facility] [address] [place], [place] [address]Dr. Yadiel Acosta PROF 14(COMP METB)on 023 Albumin [Mass/Vol] 4.4 g/dL Normal 3.4-5.0 [facility] Comment on above: Performed By: #### C MP, LIPA ####[facility] [address] [place], [place] [address]Dr. Yadiel Acosta Albumin/Globulin [Mass ratio] 1.2 {ratio} Normal [facility] Comment on above: Performed By: #### C MP, LIPA ####[facility] [address] [place], [place] [address]Dr. Yadiel Acosta ALP [Catalytic activity/Vol] 109 U/L Normal 46-116 [facility] Comment on above: Performed By: #### C MP, LIPA ####[facility] [address] [place] [address]Dr. Yadiel Acosta ALT [Catalytic activity/Vol] 27 U/L Normal 14-59 [facility] Comment on above: Performed By: #### C MP, LIPA ####[facility] [address] [place] [address]Dr. Yadiel Acosta Anion gap [Moles/Vol] 20.7 mmol/L Normal Th [facility] Comment on above: Performed By: #### C MP, LIPA ####[facility] [address] [place], [place] [address]Dr. Yadiel Acosta AST [Catalytic activity/Vol] 35 U/L Normal 15-37 [facility] Comment on above: Performed By: #### C MP, LIPA ####[facility] [address] [place], [place] [address]Dr. Yadiel Acosta Bilirubin [Mass/Vol] 1.2 mg/dL Critically high 0.2-1.0 [facility] Comment on above: Performed By: #### C MP, LIPA ####[facility] [address] [place], [place] [address]Dr. Yadiel Acosta Calcium [Mass/Vol] 9.3 mg/dL Normal 8.5-10.1 [facility] Comment on above: Performed By: #### C MP, LIPA ####[facility] [address] [place], [place] [address]Dr. Yadiel Acosta Chloride [Moles/Vol] 98 mmol/L Normal 98-[address] [facility] Comment on above: Performed By: #### C MP, LIPA ####[facility] [address] [place], [place] [address]Dr. Yadiel Acosta CO2 [Moles/Vol] 21.6 mmol/L Normal 21.0-32.0 [facility] Comment on above: Performed By: #### C MP, LIPA ####[facility] [address] [place], [place] [address]Dr. Yadiel Acosta Creatinine [Mass/Vol] 1.07 mg/dL Critically high 0.55-1.[address] [facility] Comment on above: Performed By: #### C MP, LIPA ####[facility] [id number] [place] [address]Dr. Yadiel Acosta EGFR-AF URUGUAYAN >60 Normal >=60 [facility] Comment on above: Performed By: #### C MP, LIPA ####[facility] Iq[address]rziwz[address] [place] [address]Dr. Yadiel Acosta EGFR-NON AF URUGUAYAN 55 mL/min/1.73m2 Critically low >=[address] [facility] Comment on above: Performed By: #### C MP, LIPA ####[facility] [address] [place], [place] [address]Dr. Yadiel Acosta Globulin (S) [Mass/Vol] 3.6 g/dL Normal [facility] Comment on above: Performed By: #### C MP, LIPA ####[facility] [address] [place], [place] [address]Dr. Yadiel Acosta Glucose [Mass/Vol] 77 mg/dL Normal 74-106 [facility] Comment on above: Performed By: #### C MP, LIPA ####[facility] Cijef[address] [place], [place] [address]Dr. Yadiel Acosta Potassium [Moles/Vol] 3.3 mmol/L Critically low 3.5-5.[address] [facility] Comment on above: Performed By: #### C MP, LIPA ####[facility] [address]waivtg[address] [place] [address]Dr. Yadiel Acosta Protein [Mass/Vol] 8.0 g/dL Normal 6.4-8.2 [facility] Comment on above: Performed By: #### C MP, LIPA ####[facility] Grbesvr[address] [place], [place] [address]Dr. Yadiel Acosta Sodium [Moles/Vol] 137 mmol/L Normal 136-145 [facility] Comment on above: Performed By: #### C MP, LIPA ####[facility] T[address]ciwlf[address] [place] [address]Dr. Yadiel Dave Urea nitrogen [Mass/Vol] 27.0 mg/dL Critically high 7.0-18.[address] [facility] Comment on above: Performed By: #### C MANOLO, MORIAH ####[facility] F[address]ookimr[address] [place] [address]Dr. Yadiel Acosta Urea nitrogen/Creatinine [Mass ratio] 25.2 mg/mg Normal [facility] Comment on above: Performed By: #### C MANOLO, MORIAH ####[facility] Qdxrkjtnmv[address] [place] [address]Dr. Yadiel Acosta URINE MICROSCOPIC ONLYon BACTERIA NONE SEEN Normal NONE SEEN [facility] Comment on above: Performed By: #### Leonila LOMBARDI UMMENDEZRO ####[facility] Xryxgxzimb[address] [place] [address]Dr. Yadiel Acosta Bacteria identified Cx Nom (U) NOT INDICATED Normal [facility] Comment on above: Performed By: #### Leonila LOMBARDI UMMENDEZRO ####[facility] [address]ys[address] [place] [address]Dr. Yadiel Acosta CAST NONE SEEN Normal NONE SEEN [facility] Comment on above: Performed By: #### ROCIO ALLANRO ####[facility] Avq[address]zt[address]xwq[address] [place] [address]Dr. Yadiel Acosta Crystals LM Nom (Urine sed) NONE SEEN Normal NONE SEEN [facility] Comment on above: Performed By: #### ROCIO ALLANRO ####[facility] M[address]hnwmy[address] [place] [address]Dr. Yadiel Acosta Epithelial cells LM Ql (Urine sed) RARE Normal NONE SEEN /RARE [facility] Comment on above: Performed By: #### ROCIO ALLANRO ####[facility] [address] [place], [place] [address]Dr. Rosettelan Acosta MUCOUS NONE SEEN Normal NONE SEEN [facility] Comment on above: Performed By: #### ROCIO ALLANRO ####[facility] [address] [place], [place] [address]Dr. Yadiel Acosta RBC 0-2 Normal 0-[address] [facility] Comment on above: Performed By: #### LALY ALLAN ####[facility] [address]ost[address] [place], [place] [address]Qf. Yadiel Acosta WBC NONE SEEN Normal NONE SEEN [facility] Comment on above: Performed By: #### LALY ALLAN ####[facility] [address] [place] [id number]. Yadiel Acosta CBC with Diffon 04-11-2022 Abs. Basophil 0.00 k/uL Normal 0.0-0.2 [facility] Comment on above: Performed By: #### C P, CDP, LIP #### [facility] [address] [place] [address] Manager Medicare: Mine Roblero MD Abs.Neutrophil (Seg) 3.70 k/uL Normal 2.5-7.0 [facility] Comment on above: Performed By: #### C P, CDP, LIP #### [facility] [address] [place] [address] Manager Medicare: Mine Roblero MD Auto Diff Performed YES Normal [facility] Comment on above: Performed By: #### C P, CDP, LIP #### [facility] [address] [place] [address] Manager Medicare: Mine Roblero MD Basophils/100 WBC (Bld) 1 % Normal 0-2 [facility] Comment on above: Performed By: #### C P, CDP, LIP #### [facility] [address] [place] [address] Manager Medicare: Mine Roblero MD Eosinophils (Bld) [#/Vol] 0.10 10*3/uL Normal 0.0-0.4 [facility] Comment on above: Performed By: #### C P, CDP, LIP #### [facility] [address] [place] [address] Manager Medicare: Mine Roblero MD Eosinophils/100 WBC (Bld) 1 % Normal 0-5 [facility] Comment on above: Performed By: #### C P, CDP, LIP #### [facility] [address] [place], [place] [id number] Manager Medicare: Mine Roblero MD Erythrocyte distribution width (RBC) [Ratio] 13.7 % Normal 12.1-15.2 [facility] Comment on above: Performed By: #### C P, CDP, LIP #### [facility] [address] [place] [address] Manager Medicare: Mine Roblero MD Hematocrit (Bld) [Volume fraction] 40.3 % Normal 36-46 [facility] Comment on above: Performed By: #### C P, CDP, LIP #### [facility] [address] [place] [phone] Manager Medicare: Mine Roblero MD Hemoglobin (Bld) [Mass/Vol] 13.4 g/dL Normal 12.0-16.0 [facility] Comment on above: Performed By: #### C P, CDP, LIP #### [facility] [address] [place] [address] Manager Medicare: Mine Roblero MD Lymphocytes (Bld) [#/Vol] 2.20 10*3/uL Normal 1.0-4.8 [facility] Comment on above: Performed By: #### C P, CDP, LIP #### [facility] [address] [place] [address] Manager Medicare: Mine Roblero MD Lymphocytes/100 WBC (Bld) 34 % Normal 15-40 [facility] Comment on above: Performed By: #### C P, CDP, LIP #### [facility] [address] [place] [address] Manager Medicare: Mine Roblero MD MCH (RBC) [Entitic mass] 29.7 pg Normal 26-34 [facility] Comment on above: Performed By: #### C P, CDP, LIP #### [facility] [address] [place], [place] [id number] Manager Medicare: Mine Roblero MD MCHC (RBC) [Mass/Vol] 33.3 g/dL Normal 31-37 [facility] Comment on above: Performed By: #### C P, CDP, LIP #### [facility] [address] [place] [address] Manager Medicare: Mine Roblero MD MCV (RBC) [Entitic vol] 89.0 fL Normal 80-100 [facility] Comment on above: Performed By: #### C P, CDP, LIP #### [facility] [address] [place] [address] Manager Medicare: Mine Roblero MD Monocytes (Bld) [#/Vol] 0.40 10*3/uL Normal 0.0-1.0 [facility] Comment on above: Performed By: #### C P, CDP, LIP #### [facility] [address] [place] [address] Manager Medicare: Mine Roblero MD Monocytes/100 WBC (Bld) 6 % Normal 4-8 [facility] Comment on above: Performed By: #### C P, CDP, LIP #### [facility] [address] [place] [address] Manager Medicare: Mine Roblero MD Neutrophil (Seg) 58 % Normal 47-75 [facility] Comment on above: Performed By: #### C P, CDP, LIP #### [facility] [address] [place] [address] Manager Medicare: Mine Roblero MD Platelets (Bld) [#/Vol] 245 10*3/uL Normal 140-450 [facility] Comment on above: Performed By: #### C P, CDP, LIP #### [facility] [address] [place] [address] Manager Medicare: Mine Roblero MD RBC (Bld) [#/Vol] 4.53 10*6/uL Normal 4.0-5.2 [facility] Comment on above: Performed By: #### C P, CDP, LIP #### [facility] [address] [place] [phone] Manager Medicare: Mine Roblero MD WBC (Bld) [#/Vol] 6.4 10*3/uL Normal 3.5-11.0 [facility] Comment on above: Performed By: #### C P, CDP, LIP #### [facility] [address] [place] [phone] Manager Medicare: Mine Roblero MD Absolute Eos # 0.10 [facility] Absolute Lymph # 2.20 [facility] Absolute [place] # 0.40 [facility] Basophils (Bld) [#/Vol] 0.00 10*3/uL [facility] Basophils/100 WBC (Bld) 1 % 0 - 2 % [facility] Differential Type YES [facility] Eosinophils/100 WBC (Bld) 1 % 0 - 5 % [facility] Hematocrit (Bld) [Volume fraction] 40.3 % 36 - 46 % [facility] Hemoglobin (Bld) [Mass/Vol] 13.4 g/dL 12.0 - 16.0 g/dL [facility] Lymphocytes/100 WBC (Bld) 34 % 15 - 40 % [facility] MCH (RBC) [Entitic mass] 29.7 pg 26 - 34 pg [facility] MCHC (RBC) [Mass/Vol] 33.3 g/dL 31 - 3 7 g/dL [facility] MCV (RBC) [Entitic vol] 89.0 fL 80 - 100 fL [facility] Monocytes/100 WBC (Bld) 6 % 4 - 8 % [facility] Platelet distribution width (Bld) [Ratio] 13.7 % 12.1 - 15.2 % [facility] Platelets (Bld) [#/Vol] 245 10*3/uL [facility] RBC (Bld) [#/Vol] 4.53 10*6/uL 4.0 - 5.2 m/uL [facility] Segmented neutrophils/100 WBC (Bld) 58 % 47 - 75 % [facility] Segs Absolute 3.70 [facility] WBC (Bld) [#/Vol] 6.4 10*3/uL [facility] CMPon 04-11-2022 Albumin [Mass/Vol] 4 g/dL 3.5 - 5.2 g/dL [facility] ALP [Catalytic activity/Vol] 85 U/L 35 - 104 U/L [facility] ALT [Catalytic activity/Vol] 12 U/L 5 - 33 U/L [facility] Anion gap [Moles/Vol] 12 mmol/L 9 - 17 mmol/L [facility] AST [Catalytic activity/Vol] 21 U/L NINF - 32 U/L [facility] Bilirubin [Mass/Vol] 0.5 mg/dL 0.3 - 1 .2 mg/dL [facility] Calcium [Mass/Vol] 9.0 mg/dL 8.6 - 10. 4 mg/dL [facility] Chloride [Moles/Vol] 105 mmol/L 98 - 10 7 mmol/L [facility] CO2 [Moles/Vol] 23 mmol/L 20 - 31 mmol/L [facility] Creatinine [Mass/Vol] 1.03 mg/dL High 0.50 - 0.90 mg/dL [facility] GFR/1.73 sq M.predicted MDRD (S/P/Bld) [Vol rate/Area] - PINF [facility] Comment on above: These results are not intended for use in patients <18 years of age. eGFR results are calculated without a race factor using the 2020 CKD-EPI equation. Careful clinical correlation is recommended, particularly when comparing to results calculated using previous equations. The CKD-EPI equation is less accurate in patients with extremes of muscle mass, extra-renal metabolism of creatine, excessive creatine ingestion, or following therapy that affects renal tubular secretion. Glucose [Mass/Vol] 119 mg/dL High 70 - 99 mg/dL [facility] [address] Interpretation and review of laboratory results Abnormal [facility] Potassium [Moles/Vol] 3.4 mmol/L Low 3.7 - 5.3 mmol/L [facility] [address] Protein [Mass/Vol] 6.6 g/dL 6.4 - 8.3 g/dL [facility] Sodium [Moles/Vol] 140 mmol/L 135 - 144 mmol/L [facility] Urea nitrogen [Mass/Vol] 23 mg/dL High 6 - 20 mg/dL [facility] [address] Urea nitrogen/Creatinine (Bld) [Mass ratio] 22 High 9 - 20 [facility] [address] ABDOMEN PELVIS WO CONTRAS Ton 04-11-2022 CT ABDOMEN PELVIS WO CONTRAST EXAMINATION: CT ABDOMEN PELVIS WO CONTRAST, 04/11/2022 3:49 PM EST HISTORY: Reason for exam:->right flank pain and RLQ pain hx of kidney stone COMPARISON: [facility] 09/18/2021. TECHNIQUE: CT scan of the abdomen and pelvis was performed without IV contrast. CT dose reduction technique was used, including Automated Exposure Control. FINDINGS: POSITIVES: None. NEGATIVES: No hydronephrosis or ureteral stone. COINCIDENTAL: Punctate calcification right kidney. Cholecystectomy. Appendix not separately identified, but no evidence of appendicitis. Hysterectomy. Prominent amount stool in the rectum. Stable scarring left lung base. ROUTINE: No bowel obstruction or unexpected mass. Normal liver, spleen, pancreas and adrenal glands. Bladder empty. IMPRESSION: Punctate nonobstructing stone barely visible in the right kidney. No explanation for pain. Interpreted by: Roddy Balbuena Jr., MD Signed by: Roddy Balbuena Jr., MD 04/11/22 Final result Normal [facility] CT ABDOMEN PELVIS WO CONTRAS T Additional Contrast? Noneon 04-11-2022 Punctate nonobstructing stone barely visible in the right kidney. No explanation for pain. [facility] RIS CONSOLIDATED EXAMINATION: CT ABDO MEN PELVIS WO CONTRAST, 04/11/2022 3:49 PM EST HISTORY: Reason for exam:->right flank pain and RLQ pain hx of kidney stone COMPARISON: [facility] 09/18/2021. TECHNIQUE: CT scan of the abdomen and pelvis was performed without IV contrast. CT dose reduction technique was used, including Automated Exposure Control. FINDINGS: POSITIVES: None. NEGATIVES: No hydronephrosis or ureteral stone. COINCIDENTAL: Punctate calcification right kidney. Cholecystectomy. Appendix not separately identified, but no evidence of appendicitis. Hysterectomy. Prominent amount stool in the rectum. Stable scarring left lung base. ROUTINE: No bowel obstruction or unexpected mass. Normal liver, spleen, pancreas and adrenal glands. Bladder empty. [facility] Roddy Mayo Jr., MD - 04/11/2022 EXAMINATION: CT ABDOMEN PELVIS WO CONTRAST, 04/11/2022 3:49 PM EST HISTORY: Reason for exam:->right flank pain and RLQ pain hx of kidney stone COMPARISON: [facility] 09/18/2021. TECHNIQUE: CT scan of the abdomen and pelvis was performed without IV contrast. CT dose reduction technique was used, including Automated Exposure Control. FINDINGS: POSITIVES: None. NEGATIVES: No hydronephrosis or ureteral stone. COINCIDENTAL: Punctate calcification right kidney. Cholecystectomy. Appendix not separately identified, but no evidence of appendicitis. Hysterectomy. Prominent amount stool in the rectum. Stable scarring left lung base. ROUTINE: No bowel obstruction or unexpected mass. Normal liver, spleen, pancreas and adrenal glands. Bladder empty. IMPRESSION: Punctate nonobstructing stone barely visible in the right kidney. No explanation for pain. Synchro Phone: Radiology Study observation (narrative) Synchro Phone: CT ABDOMEN PELVIS WO CONTRAS T Additional Contrast? NoneOrdered By: Roddy Balbuena on 04-11-2022 Synchro Phone: Comp Metabolic Profon 2022 Albumin [Mass/Vol] 4.0 g/dL Normal 3.5-5.2 [facility] Comment on above: Performed By: #### C P, CDP, LIP #### [facility] [address] [place] [address] Manager Medicare: Mine Roblero MD Alkaline Phos 85 U/L Normal 35-104 [facility] Comment on above: Performed By: #### C P, CDP, LIP #### [facility] [address] [place], [place] [id number] Manager Medicare: Mine Roblero MD ALT [Catalytic activity/Vol] 12 U/L Normal 5-33 [facility] Comment on above: Performed By: #### C P, CDP, LIP #### [facility] [address] [place], [place] [id number] Manager Medicare: Mine Roblero MD Anion gap [Moles/Vol] 12 mmol/L Normal 9-17 [facility] Comment on above: Performed By: #### C P, CDP, LIP #### [facility] [address] [place], [place] [id number] Manager Medicare: Mine Roblero MD AST [Catalytic activity/Vol] 21 U/L Normal <32 [facility] Comment on above: Performed By: #### C P, CDP, LIP #### [facility] [address] [place], [place] [id number] Manager Medicare: Mine Roblero MD Bilirubin [Mass/Vol] 0.5 mg/dL Normal 0.3-1.2 [facility] Comment on above: Performed By: #### C P, CDP, LIP #### [facility] [address] [place], [place] [phone] Manager Medicare: Mine Roblero MD BUN/CRE Ratio 22 High 9-20 [facility] Comment on above: Performed By: #### C P, CDP, LIP #### [facility] [address] [place], [place] [id number] Manager Medicare: Mine Roblero MD Calcium [Mass/Vol] 9.0 mg/dL Normal 8.6-10.4 [facility] Comment on above: Performed By: #### C P, CDP, LIP #### [facility] [address] [place], [place] [id number] Manager Medicare: Mine Roblero MD Chloride [Moles/Vol] 105 mmol/L Normal 98-107 [facility] Comment on above: Performed By: #### C P, CDP, LIP #### [facility] [address] [place], [place] [id number] Manager Medicare: Mine Roblero MD CO2 [Moles/Vol] 23 mmol/L Normal 20-31 [facility] Comment on above: Performed By: #### C P, CDP, LIP #### [facility] [address] [place] [address] Manager Medicare: Mine Roblero MD Creatinine [Mass/Vol] 1.03 mg/dL High 0.50-0.90 [facility] Comment on above: Performed By: #### C P, CDP, LIP #### [facility] [address] [place] [address] Manager Medicare: Mine Roblero MD GFR/1.73 sq M.predicted among non-blacks MDRD (S/P/Bld) [Vol rate/Area] mL/min/{1.73_m2} Normal >60 [facility] Comment on above: Result Comment: These results are not intended for use in patients <18 years of age. eGFR results are calculated without a race factor using the 2020 CKD-EPI equation. Careful clinical correlation is recommended, particularly when comparing to results calculated using previous equations. The CKD-EPI equation is less accurate in patients with extremes of muscle mass, extra-renal metabolism of creatine, excessive creatine ingestion, or following therapy that affects renal tubular secretion. Performed By: #### C P, CDP, LIP #### [facility] [address] [place], [place] [id number] Manager Medicare: Mine Roblero MD Glucose [Mass/Vol] 119 mg/dL High 70-99 [facility] Comment on above: Performed By: #### C P, CDP, LIP #### [facility] [address] [place], [place] [id number] Manager Medicare: Mine Roblero MD Potassium [Moles/Vol] 3.4 mmol/L Low 3.7-5.3 [facility] Comment on above: Performed By: #### C P, CDP, LIP #### [facility] [address] [place], [place] [id number] Manager Medicare: Mine Roblero MD Protein [Mass/Vol] 6.6 g/dL Normal 6.4-8.3 [facility] Comment on above: Performed By: #### C P, CDP, LIP #### [facility] [address] [place], [place] [id number] Manager Medicare: Mine Roblero MD Sodium [Moles/Vol] 140 mmol/L Normal 135-144 [facility] Comment on above: Performed By: #### C P, CDP, LIP #### [facility] [address] [place], [place] [id number] Manager Medicare: Mine Roblero MD Urea nitrogen [Mass/Vol] 23 mg/dL High 6-20 [facility] Comment on above: Performed By: #### C P, CDP, LIP #### [facility] [address] [place], [place] [phone] Manager Medicare: Mine Roblero MD Lipaseon 04-11-2022 Lipase [Catalytic activity/Vol] 52 U/L Normal 13-60 [facility] Comment on above: Performed By: #### C P, CDP, LIP #### [facility] [address] [place], [place] [id number] Manager Medicare: Mine Roblero MD Lipase [Catalytic activity/Vol] 52 U/L 13 - 60 U/L [facility] Microscopic Urinalysison - [facility] Bacteria, UA 2+ Abnormal None [facility] Epithelial Cells UA 10 TO 20 /HPF [facility] Interpretation and review of laboratory results Abnormal [facility] RBC clumps Auto (Urine sed) [#/Area] 2 TO 5 [facility] WBC, UA 2 TO 5 0 /HPF [facility] No Panel Informationon 04-11 [facility] Urinalysison 04-11-2022 Bilirubin Urine Negative NEGATIVE [facility] Color, UA Yellow Yellow [facility] Glucose Auto test strip (U) [Mass/Vol] Negative NEGATIVE [facility] Interpretation and review of laboratory results Abnormal [facility] Ketones (U) [Mass/Vol] Negative NEGATIVE [facility] Leukocyte esterase Auto test strip Ql (U) 2+ Abnormal NEGATIVE [facility] Nitrite Auto test strip Ql (U) Negative NEGATIVE [facility] Protein (U) [Mass/Vol] 6.0 mg/dL 5.0 - 8.0 [facility] Protein (U) [Mass/Vol] 1+ Abnormal NEGATIVE [facility] Specific [place], UA 1.025 1.005 - 1.030 [facility] Turbidity UA Clear Clear [facility] Urinalysis Comments [facility] Urine Hgb Negative NEGATIVE [facility] Urobilinogen, Urine Normal Normal [facility] Urinalysis, Routineon 2022 Bilirubin, SemiQt,Ur Negative Normal NEG [facility] Comment on above: Performed By: #### U AERNST #### [facility] [address] [place] [address] Manager Medicare: Mine Roblero MD Blood, Urine Negative Normal NEG [facility] Comment on above: Performed By: #### U ERNST Hopper #### [facility] [address] [place] [address] Manager Medicare: Mine Roblero MD Clarity (U) Clear Normal CLEAR [facility] Comment on above: Performed By: #### U A, UMICAO #### [facility] [address] [place] [address] Manager Medicare: Mine Roblero MD Color (U) Yellow Normal YEL [facility] Comment on above: Performed By: #### U A, UMICAO #### [facility] [address] [place], [place] [id number] Manager Medicare: Mine Roblero MD Comment Normal [facility] Comment on above: Performed By: #### U A, UMICAO #### [facility] [address] [place], [place] [id number] Manager Medicare: Mine Roblero MD Glucose Ql (U) Negative Normal NEG [facility] Comment on above: Performed By: #### U A, UMICAO #### [facility] [address] [place], [place] [phone] Manager Medicare: Mine Roblero MD Ketones Ql (U) Negative Normal NEG [facility] Comment on above: Performed By: #### U A, UMICAO #### [facility] [address] [place], [place] [phone] Manager Medicare: Mine Roblero MD Leukocyte esterase Test strip Ql (U) 2+ Abnormal NEG [facility] Comment on above: Performed By: #### U A, UMICAO #### [facility] [address] [place], [place] [phone] Manager Medicare: Mine Roblero MD Nitrite,Ur Negative Normal NEG [facility] Comment on above: Performed By: #### U A, UMICAO #### [facility] [address] [place] [address] Manager Medicare: Mine Roblero MD PH,Ur 6.0 Normal 5.0-8.0 [facility] Comment on above: Performed By: #### U A, UMICAO #### [facility] [address] [place], [place] [phone] Manager Medicare: Mine Roblero MD Protein Ql (U) 1+ Abnormal NEG [facility] Comment on above: Performed By: #### U A, UMICAO #### [facility] [address] [place], [place] [id number] Manager Medicare: Mine Roblero MD Spec. [place],Ur 1.025 Normal 1.005-1.03 0 [facility] Comment on above: Performed By: #### U A, UMICAO #### [facility] [address] [place], [place] [id number] Manager Medicare: Mine Roblero MD Urobilinogen,Ur Normal Normal NORM [facility] Comment on above: Performed By: #### U AGRETTAO #### [facility] [address] [place], [place] [phone] Manager Medicare: Mnie Roblero MD Urinalysis,Microon 3 ----- Normal [facility] Comment on above: Performed By: #### U AGRETTAO #### [facility] [address] [place], [place] [id number] Manager Medicare: Mine Roblero MD Bacteria 2+ Abnormal NONE [facility] Comment on above: Performed By: #### U A, GRETTAO #### [facility] [address] [place], [place] [id number] Manager Medicare: Mine Roblero MD Epithelial cells LM Ql (Urine sed) 10 TO 20 Normal [facility] Comment on above: Performed By: #### U AMAYELAICAO #### [facility] [address] [place], [place] [id number] Manager Medicare: Mine Roblero MD Urine RBC's 2 TO 5 Normal 0-2 [facility] Comment on above: Performed By: #### U AGRETTAO #### [facility] [address] [place] [address] Manager Medicare: Mine Roblero MD Urine WBC's 2 TO 5 Normal 0 [facility] Comment on above: Performed By: #### U A, ERNST #### [facility] [address] [place] [address] Manager Medicare: Mine Roblero MD CT Chest w/o Contraston 10-2 CT Chest w/o Contrast EXAMINATION: CTA c hest screening CLINICAL HISTORY: Lung nodule, smoker COMPARISON: Chest CT from 10/01/2021 TECHNIQUE: Multidetector LDCT was performed through the chest without IV contrast. All CT scans at this facility use dose modulation, iterative reconstruction, and/or weight based dosing when appropriate to reduce radiation dose to as low as reasonably achievable. 3-D, sagittal and coronal reconstructions were performed. FINDINGS The thyroid gland is within normal limits. The axillary regions demonstrate no significant lymphadenopathy or solid or cystic lesions. The heart and pericardium are within normal limits. There is no pericardial effusion. The great vessels of the chest are normal in course and caliber. The lungs are free of focal consolidations or infiltrates. There are no pleural effusions. There are small pulmonary nodules measuring less than 3 mm at the periphery of both lungs unchanged since the prior study. On the right: Image image 42 of 115 there is a 5 mm nodule in the right upper lobe Image 57 115 there is a 3 mm nodule in the right lower lobe Image 72 of 115 there is a 3 mm pleural-based nodule in the right middle lobe Image 79 of 115 there is a 3 mm peripheral nodule in the right lower lobe On the left: Image 47 of 115 is a 4 mm nodule in the left lower lobe Image 79 of 115 there is a 4 mm nodule in the left lower lobe In the left lung base, image 84 115, there is a persistent ill-defined spiculated 2.6 cm nodule a changing since the prior study. There are no acute bony abnormalities. The visualized portions of the upper abdomen are within normal limits. IMPRESSION: There are multiple less than 5 mm pulmonary nodules in both lungs as described. In the left lung base is essentially no change in the 2.6 cm spiculated ill-defined nodule noted on prior studies. Lung RADS Probably benign. 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 A 2.6 mm osseous fragment is again seen at the volar aspect of the fifth phalanx PIP joint. No malalignment. Mild soft tissue swelling about the PIP joint. The joint spaces are maintained. Impression: 1. Stable avulsion fragment at the volar aspect of the fifth PIP joint. 2. Fifth digit remains in anatomic alignment. Electronically authenticated by: DIANA HATCH Date: 2021-12-26 02:10 Normal [facility] HAND RIGHT 3 Son 2 HAND RIGHT 3 [facility] Department of Radiology [address] [place] [id number] Patient Name: TASNEEM CAMARILLO : 1975 Sex: F Age: Race: White Pt. 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 HFW QUESTION FOR THE RADIOLOGIST: focus on small finger please PROTOCOL: AP,Lateral and Oblique views were obtained. COMPARISON: XR right hand 11/02/2021 IMPRESSION: 3 views of the hand were obtained with a splint involving the fifth digit. There is cortical irregularity of the fifth PIP region which appears to involve the full or aspect of the middle phalanx but is poorly characterized. There is no definite change compared to prior radiographs. Approved by:Sindy Schumacher11/08/2021 10:25 AM. I, Rad Cano,have reviewed the image(s) and agree with the findings in this report. Electronically signed: Rad Cano. Transcribed by: [email or web address], User Resident: SINDY LEBLANC Electronically Signed by: RAD CANO @ 11/08/2021 11:46 AM I personally read this/these film(s) with this resident Normal [facility] Comment on above: Order Comment: focus on small finger please HAND RIGHT 3 Son 2 HAND RIGHT 3 [facility] Department of Radiology [address] [place] [phone] Patient Name: TASNEEM CAMARILLO : 1975 Sex: F Age: Race: White Pt. Location: Patient Status: Ordered Date: 11/02/2021 2:45:00 PM Completed Date: 11/02/2021 03:09 PM Requesting Provider: ALIRIO BEAR Attending Provider: Report Copy To: Signs & Symptoms: M79.641 Pain in right hand I10 History: María Comments: , , , Ordering Provider - ALIRIO BEAR MD , Exam: HAND RIGHT 3 VWS HAND RIGHT 3 VWS 11/02/2021 3:09 PM CLINICAL INDICATIONS: M79.641 Pain in right hand I10 TECHNOLOGIST COMMENTS: rt 5th fx at work 2 days ago laf oc3 QUESTION FOR THE RADIOLOGIST: , , , Ordering Provider - ALIRIO BEAR MD , PROTOCOL: AP,Lateral and Oblique views were obtained. COMPARISON: None IMPRESSION: Bony detail partially obscured by overlying splint. No obvious malalignment or acute fracture appreciated. Approved by:Sindy Schumacher11/06/2021 2:28 PM. I, Alex Arizmendi,have reviewed the image(s) and agree with the findings in this report. Electronically signed: Alex Arizmendi. Transcribed by: [email or web address], User Resident: SINDY LEBLANC Electronically Signed by: ALEX ARIZMENDI @ 11/06/2021 03:10 PM I personally read this/these film(s) with this resident Normal [facility] Comment on above: Order Comment: , , = ========= , Ordering Provider - ALIRIO BEAR MD , CT Chest w/o Contraston 09-08 CT Chest w/o Contrast HISTORY: Pulmonary nodule COMPARISON: CT abdomen and pelvis 09/18/2021 TECHNIQUE: Multiple axial images of the chest were obtained without enhancement. Multiplanar reformats were acquired at the CT console. All CT scans at this facility use dose modulation, iterative reconstruction, and/or weight based dosing when appropriate to reduce radiation dose to as low as reasonably achievable. FINDINGS: Visualized thyroid gland is within normal limits. No axillary or mediastinal lymphadenopathy. No hilar lymphadenopathy identified on this unenhanced CT of the chest. No thoracic aortic aneurysm. Heart size is within normal limits. No significant pericardial effusion. Esophagus is within normal limits. No significant interval change of an irregularly marginated and spiculated left lower lobe nodule measuring approximately 2.2 cm. Stable 3???4 mm left lower lobe nodule as seen on axial image 76 of 100 feet. Stable 2???3 mm right lower lobe nodule as seen on axial image 74 108. 2???3 mm right lower lobe nodule as seen on axial image 54 of 108. No consolidation, pleural effusion, or pneumothorax. No acute osseous abnormality. Visualized upper abdomen demonstrates no acute abnormality. 2???3 mm right renal calculus. IMPRESSION: Pulmonary nodules as detailed. Follow-up CT of the chest without contrast in 3 months recommended. Alternatively, PET CT could be performed. Report reported and signed by Eloisa Brown on 10/04/2021 1219 Normal [facility] Specialist AMYLASEon 09-18-2021 Amylase [Catalytic activity/Vol] 62 U/L Normal 25-[address] [facility] Comment on above: Performed By: #### L IPA, CMP, ANGELINE #### [facility] [address] [place], [place] [address] Dr. Yadiel Acosta CBC AUTO DIFFon 09-18-2021 BASO # 0.1 103/ul Normal 0.0-0.[address] [facility] Comment on above: Performed By: #### C BC ####[facility] [address] [place], [place] [address]YsJerman Acosta Basophils/100 WBC (Bld) 1.1 % Normal 0.2-2.[address] [facility] Comment on above: Performed By: #### C BC ####[facility] [address] [place] [address]Dr. Yadiel Acosta EO # 0.1 103/ul Normal 0.0-0.[address] [facility] Comment on above: Performed By: #### C BC ####[facility] [address] [place] [address]Dr. Yadiel Acosta Eosinophils/100 WBC (Bld) 2.3 % Normal 0.9-7.[address] [facility] Comment on above: Performed By: #### C BC ####[facility] [address] [place], [place] [address]Dr. Yadiel Acosta Erythrocyte distribution width (RBC) [Ratio] 13.2 % Normal 11.0-15.[address] [facility] Comment on above: Performed By: #### C BC ####[facility] [address] [place], [place] [address]Dr. Yadiel Acosta Hematocrit (Bld) [Volume fraction] 39.1 % Normal 36.0-48.[address] [facility] Comment on above: Performed By: #### C BC ####[facility] [address] [place], [place] [address]Dr. Yadiel Acosta Hemoglobin (Bld) [Mass/Vol] 12.5 g/dL Normal 12.0-16.[address] [facility] Comment on above: Performed By: #### C BC ####[facility] [address] [place], [place] [address]Dr. Yadiel Dave IG # 0.02 10e3/ul Normal 0.00-0.[address] [facility] Comment on above: Performed By: #### C BC ####[facility] [address] [place], [place] [address]Dr. Yadiel Acosta IG % 0.4 % Normal 0.0-0.[address] [facility] Comment on above: Performed By: #### C BC ####[facility] [address] [place], [place] [address]Dr. Yadiel Acosta LYMPH # 2.5 103/ul Normal 1.2-3.[address] [facility] Comment on above: Performed By: #### C BC ####[facility] [address] [place], [place] [address]Dr. Yadiel Acosta Lymphocytes/100 WBC (Bld) 44.5 % Normal 20.5-60.[address] [facility] Comment on above: Performed By: #### C BC ####[facility] [address] [place], [place] [address]DrJerman Acosta MANUAL DIFF REQ NO Normal [facility] Comment on above: Performed By: #### C BC ####[facility] [address] [place] [address]Dr. Yadiel Acosta MCH (RBC) [Entitic mass] 29.6 pg Normal 26.7-34.0 [facility] Comment on above: Performed By: #### C BC ####[facility] [address] [place] [address]Dr. Yadiel Acosta MCHC (RBC) [Mass/Vol] 32.0 g/dL Normal 29.9-35.[address] [facility] Comment on above: Performed By: #### C BC ####[facility] [address] [place], [place] [address]DrJerman Acosta MCV (RBC) [Entitic vol] 92.4 fL Normal 81.0-99.[address] [facility] Comment on above: Performed By: #### C BC ####[facility] [address] [place], [place] [address]DrJerman Acosta MONO # 0.4 103/ul Normal 0.3-0.[address] [facility] Comment on above: Performed By: #### C BC ####[facility] [address] [place], [place] [address]DrJerman Acosta Monocytes/100 WBC (Bld) 6.4 % Normal 1.7-12.[address] [facility] Comment on above: Performed By: #### C BC ####[facility] [address] [place], [place] [address]DrJerman Acosta NEUT # 2.6 103/ul Normal 1.4-6.[address] [facility] Comment on above: Performed By: #### C BC ####[facility] [address] [place], [place] [address]DrJerman Acosta Neutrophils/100 WBC (Bld) 45.3 % Normal 43.0-75.[address] [facility] Comment on above: Performed By: #### C BC ####[facility] [address] [place], [place] [address]DrJerman Acosta Platelet mean volume (Bld) [Entitic vol] 9.5 fL Normal 9.5-13.[address] [facility] Comment on above: Performed By: #### C BC ####[facility] [address] [place], [place] [address]RpJerman Acosta PLT 293 103/ul Normal 150-[address] [facility] Comment on above: Performed By: #### C BC ####[facility] [address] [place], [place] [address]Qz. Yadiel Acosta RBC 4.23 106/ul Normal 4.20-5.[address] [facility] Comment on above: Performed By: #### C BC ####[facility] [address] [place], [place] [address]Ju. Yadiel Acosta WBC 5.6 103/ul Normal 4.0-11.[address] [facility] Comment on above: Performed By: #### C BC ####[facility] [address] [place], [place] [address] ABD/PELV W CONon 09-19-19 CT ABD/PELV W CON EXAMINATION: CT ABD/ PELV W CON, 09/18/2021 5:28 AM EDT HISTORY: ABDOMINAL DISTENSION (GASEOUS) COMPARISON: 09/01/2021 TECHNIQUE: CT scan of the abdomen and pelvis was performed with IV contrast. CT dose reduction technique was used, including Automated Exposure Control. FINDINGS: LUNG BASES: Irregular focal infiltrate identified in the posterior basilar segment of the left lower lobe measuring 2.2 x 1.2 cm, stable. Scattered punctate pulmonary nodules measuring up to 3 mm, the largest right lower lobe axial image 4 and left lower lobe axial image 4 LIVER: No enlargement, atrophy, abnormal density, or significant focal lesion. BILIARY: Surgical clips from cholecystectomy PANCREAS: No lesion, fluid collection, ductal dilatation, or atrophy. SPLEEN: No enlargement or focal lesion. ADRENALS: No mass or enlargement. KIDNEYS: Punctate nonobstructing right nephrolith. No hydronephrosis or obstructing nephrolithiasis BOWEL/MESENTERY: No visible mass, obstruction, or bowel wall thickening. AORTA/VASCULAR: No aneurysm or dissection. RETROPERITONEUM: No mass or adenopathy. LYMPH NODES: No adenopathy. URINARY BLADDER: No visible focal wall thickening, lesion, or calculus. PELVIC ORGANS: Hysterectomy ABDOMINAL WALL: No mass or hernia. BONES: No bony lesion or fracture. OTHER: Negative. IMPRESSION: Stable irregular soft tissue density in the left lower lobe measuring 2.2 x 1.2 cm No acute intraperitoneal abnormality Electronically authenticated by: MINE STAHL Date: 2021-09-18 07:11 Normal [facility] LIPASEon 09-18-2021 Lipase [Catalytic activity/Vol] 141.0 U/L Normal 73.0-393.0 [facility] Comment on above: Performed By: #### L IPA, CMP, ANGELINE #### [facility] [address] [place] [address] Dr. Yadiel Acosta PROF 14(COMP METB)on 022 Albumin [Mass/Vol] 3.6 g/dL Normal 3.4-5.0 [facility] Comment on above: Performed By: #### L IPA, CMP, ANGELINE #### [facility] [address] [place] [address] Dr. Yadiel Acosta Albumin/Globulin [Mass ratio] 1.1 {ratio} Normal [facility] Comment on above: Performed By: #### L IPA, CMP, ANGELINE #### [facility] [address] [place] [address] Dr. Yadiel Acosta ALP [Catalytic activity/Vol] 89 U/L Normal 46-116 [facility] Comment on above: Performed By: #### L IPA, CMP, ANGELINE #### [facility] [address] [place] [address] Dr. Yadiel Acosta ALT [Catalytic activity/Vol] 22 U/L Normal 14-59 [facility] Comment on above: Performed By: #### L IPA, CMP, ANGELNIE #### [facility] [address] [place] [address] Dr. Yadiel Acosta Anion gap [Moles/Vol] 10.2 mmol/L Normal [facility] Comment on above: Performed By: #### L IPA, CMP, ANGELINE #### [facility] [address] [place] [address] Dr. Yadiel Acosta AST [Catalytic activity/Vol] 18 U/L Normal 15-37 [facility] Comment on above: Performed By: #### L IPA, CMP, ANGELINE #### [facility] [address] [place] [address] Dr. Yadiel Acosta Bilirubin [Mass/Vol] 0.9 mg/dL Normal 0.2-1.0 [facility] Comment on above: Performed By: #### L IPA, CMP, ANGELINE #### [facility] [address] [place] [address] Dr. Yadiel Acosta Calcium [Mass/Vol] 8.6 mg/dL Normal 8.5-10.1 [facility] Comment on above: Performed By: #### L IPA, CMP, ANGELINE #### [facility] [address] [place] [address] Dr. Yadiel Acosta Chloride [Moles/Vol] 106 mmol/L Normal 98-107 [facility] Comment on above: Performed By: #### L IPA, CMP, ANGELINE #### [facility] [address] [place] [address] Dr. Yadiel Acosta CO2 [Moles/Vol] 27.4 mmol/L Normal 21.0-32.0 [facility] Comment on above: Performed By: #### L IPA, CMP, ANGELINE #### [facility] [address] [place] [address] Dr. Yadiel Acosta Creatinine [Mass/Vol] 1.04 mg/dL Critically high 0.55-1.02 [facility] Comment on above: Performed By: #### L IPA, CMP, ANGELINE #### [facility] [address] [place] [address] Dr. Yadiel Acosta EGFR-AF URUGUAYAN >60 Normal >=60 [facility] Comment on above: Performed By: #### L IPA, CMP, ANGELINE #### [facility] [address] [place] [address] Dr. Yadiel Acosta EGFR-NON AF URUGUAYAN 57 mL/min/1.73m2 Critically low >=[address] [facility] Comment on above: Performed By: #### L IPA, CMP, ANGELINE #### [facility] [address] [place] [address] [address] Yadiel Acosta Globulin (S) [Mass/Vol] 3.4 g/dL Normal [facility] Comment on above: Performed By: #### L IPA CMP, ANGELINE #### [facility] [address] [place] [address] Dr. Yadiel Acosta Glucose [Mass/Vol] 100 mg/dL Normal 74-106 [facility] Comment on above: Performed By: #### L IPA CMP, ANGELINE #### [facility] [address] [place] [address] Dr. Yadiel Acosta Potassium [Moles/Vol] 3.6 mmol/L Normal 3.5-5.1 [facility] Comment on above: Performed By: #### L IPA CMP, ANGELINE #### [facility] [address] [place] [address] Dr. Yadiel Acosta Protein [Mass/Vol] 7.0 g/dL Normal 6.4-8.2 [facility] Comment on above: Performed By: #### L IPA CMP, ANGELINE #### [facility] [address] [place] [address] Dr. Yadiel Acosta Sodium [Moles/Vol] 140 mmol/L Normal 136-145 [facility] Comment on above: Performed By: #### L IPA CMP, ANGELINE #### [facility] [address] [place] [address] Dr. Yadiel Acosta Urea nitrogen [Mass/Vol] 15.0 mg/dL Normal 7.0-18.0 [facility] Comment on above: Performed By: #### L IPA, CMP, ANGELINE #### [facility] [address] [place] [address] Dr. Yadiel Acosta Urea nitrogen/Creatinine [Mass ratio] 14.4 mg/mg Normal [facility] Comment on above: Performed By: #### L IPA, CMP, ANGELINE #### [facility] [address] [place] [address] Dr. Yadiel Acosta CBC AUTO DIFFon 09-01-2021 BASO # 0.1 103/ul Normal 0.0-0.1 [facility] Comment on above: Performed By: #### C BC ####[facility] [address] [place] [address]Dr. Yadiel Acosta Basophils/100 WBC (Bld) 0.7 % Normal 0.2-2.[address] [facility] Comment on above: Performed By: #### C BC ####[facility] [address] [place], [place] [address]Dr. Yadiel Acosta EO # 0.2 103/ul Normal 0.0-0.[address] [facility] Comment on above: Performed By: #### C BC ####[facility] [address] [place], [place] [address]Dr. Yadiel Acosta Eosinophils/100 WBC (Bld) 2.3 % Normal 0.9-7.[address] [facility] Comment on above: Performed By: #### C BC ####[facility] [address] [place], [place] [address]Dr. Yadiel Acosta Erythrocyte distribution width (RBC) [Ratio] 13.6 % Normal 11.0-15.0 [facility] Comment on above: Performed By: #### C BC ####[facility] [address] [place], [place] [address]Dr. Yadiel Acosta Hematocrit (Bld) [Volume fraction] 35.0 % Critically low 36.0-48.0 [facility] Comment on above: Performed By: #### C BC ####[facility] [address] [place], [place] [address]Dr. Yadiel Acosta Hemoglobin (Bld) [Mass/Vol] 11.2 g/dL Critically low 12.0-16.[address] [facility] Comment on above: Performed By: #### C BC ####[facility] [address] [place], [place] [address]Dr. Yadiel Acosta IG # 0.02 10e3/ul Normal 0.00-0.[address] [facility] Comment on above: Performed By: #### C BC ####[facility] [address] [place], [place] [address]Dr. Yadiel Acosta IG % 0.3 % Normal 0.0-0.[address] [facility] Comment on above: Performed By: #### C BC ####[facility] [address] [place] [address]Dr. Yadiel Acosta LYMPH # 2.5 103/ul Normal 1.2-3.8 [facility] Comment on above: Performed By: #### C BC ####[facility] [address] [place] [address]Dr. Yadiel Acosta Lymphocytes/100 WBC (Bld) 34.4 % Normal 20.5-60.0 [facility] Comment on above: Performed By: #### C BC ####[facility] [address] [place] [address]Dr. Yadiel Acosta MANUAL DIFF REQ NO Normal [facility] Comment on above: Performed By: #### C BC ####[facility] [address] [place] [address]Dr. Yadiel Acosta MCH (RBC) [Entitic mass] 30.0 pg Normal 26.7-34.0 [facility] Comment on above: Performed By: #### C BC ####[facility] [address] [place] [address]Dr. Yadiel Acosta MCHC (RBC) [Mass/Vol] 32.0 g/dL Normal 29.9-35.2 [facility] Comment on above: Performed By: #### C BC ####[facility] [address] [place] [address]Dr. Yadiel Acosta MCV (RBC) [Entitic vol] 93.8 fL Normal 81.0-99.[address] [facility] Comment on above: Performed By: #### C BC ####[facility] [address] [place] [address]Dr. Yadiel Acosta MONO # 0.6 103/ul Normal 0.3-0.[address] [facility] Comment on above: Performed By: #### C BC ####[facility] [address] [place] [address]Dr. Yadiel Acosta Monocytes/100 WBC (Bld) 8.5 % Normal 1.7-12.[address] [facility] Comment on above: Performed By: #### C BC ####[facility] [address] [place] [address]Dr. Yadiel Acosta NEUT # 3.9 103/ul Normal 1.4-6.[address] [facility] Comment on above: Performed By: #### C BC ####[facility] [address] [place], [place] [address]Ur. Yadiel Acsota Neutrophils/100 WBC (Bld) 53.8 % Normal 43.0-75.0 [facility] Comment on above: Performed By: #### C BC ####[facility] [address] [place] [address]Dr. Yadiel Acosta Platelet mean volume (Bld) [Entitic vol] 9.6 fL Normal 9.5-13.5 [facility] Comment on above: Performed By: #### C BC ####[facility] [address] [place] [address]Dr. Yadiel Acosta PLT 245 103/ul Normal 150-[address] [facility] Comment on above: Performed By: #### C BC ####[facility] [address] [place] [address]Dr. Yadiel Acosta RBC 3.73 106/ul Critically low 4.20-5.40 [facility] Comment on above: Performed By: #### C BC ####[facility] [address] [place] [address]Dr. Yadiel Acosta WBC 7.3 103/ul Normal 4.0-11.[address] [facility] Comment on above: Performed By: #### C BC ####[facility] [address] [place] [address]Dr. Yadiel Acosta CT ABD/PELVIS WO CONon 09-01 CT ABD/PELVIS WO CON CT SCAN OF THE ABDO MEN AND PELVIS WITHOUT CONTRAST, 09/01/2021 3:54 PM EDT COMPARISON: CT scan of the abdomen and pelvis, 08/11/2020 and 06/25/2018 CLINICAL HISTORY: Personal history of urinary calculi acute right flank pain for a day with urinary frequency. History of kidney stones. TECHNIQUE: 3 mm axial images performed through the abdomen and pelvis without contrast. 3 mm sagittal and coronal MPR reconstructions performed. Dose reduction techniques were achieved by using automated exposure control and/or adjustment of mA and/or kV according to patient size and/or use of iterative reconstruction technique. ABDOMINAL CT SCAN FINDINGS: Partially visualized Y-shaped irregular opacity measuring 2.2 x 1.2 cm remains stable in the left lower lobe but appears to be slightly more dense since the prior exam. This measured approximately 1.9 x 1.1 cm in 2019. 2 mm nonobstructing stone in the right interpolar region (image #37, series 3). No obstructive uropathy. Remaining nonenhanced abdominal solid organs unremarkable. Prior cholecystectomy. Pelvic CT findings: Prior hysterectomy. Urinary bladder has a normal nonenhanced appearance. No bowel obstruction. Moderate amount of fecal matter in the colon. Appendix is not visualized. No acute osseous abnormality. IMPRESSION: 1. Single nonobstructing stone in the right kidney measuring 2 mm. No obstructive uropathy or ureteral calculi. 2. Partially visualized irregular Y-shaped opacity in the left lower lobe measuring 2.2 x 1.2 cm remains stable size since the recent CT exam of 08/11/2020 but appears slightly more dense in overall appearance. This is slightly increased in size since older exam from 2019. Precautionary correlation with PET/CT recommended. 3. Prior cholecystectomy and hysterectomy. 4. Moderate amount of fecal matter in the colon with no bowel obstruction. The appendix is not clearly visualized. Electronically authenticated by: Juancarlos YUSUF Date: 2021-09-01 16:[address] [facility] ER URINE PROFILEon 2 Bilirubin Ql (U) Negative Normal NEGATIVE [facility] Comment on above: Performed By: #### LALY ALLAN #### [facility] [address] [address] [address] Yadiel Acosta Clarity (U) CLEAR Normal CLEAR [facility] Comment on above: Performed By: #### E LALY LOMBARDI #### [facility] [address] [address] [address] Yadiel Acosta Color (U) LT. YELLOW Normal YELLOW [facility] Comment on above: Performed By: #### LALY ALLAN #### [facility] [address] [place] [address] Dr. Yadiel ISABEL A micrscopic examina tion will be performed if indicated. Normal [facility] Comment on above: Performed By: #### ROICO ALLANRO #### [facility] [address] [place] [address] Dr. Yadiel Acosta Glucose Ql (U) Negative Normal NEGATIVE [facility] Comment on above: Performed By: #### ROCIO ALLANRO #### [facility] [address] [place] [address] Dr. Yadiel Acosta Hemoglobin Ql (U) TRACE-INTACT Abnormal NEGATIVE [facility] Comment on above: Performed By: #### ROCIO ALLANRO #### [facility] [address] [place] [address] Dr. Yadiel Acosta Ketones Ql (U) Negative Normal NEGATIVE [facility] Comment on above: Performed By: #### ROCIO ALLANRO #### [facility] [address] [place] [address] Dr. Yadiel Acosta LEUKOCYTES Negative Normal NEGATIVE [facility] Comment on above: Performed By: #### ROCIO ALLANRO #### [facility] [address] [place] [address] Dr. Yadiel Acosta Nitrite Ql (U) Negative Normal NEGATIVE [facility] Comment on above: Performed By: #### ROCIO ALLANRO #### [facility] [address] [place] [address] Dr. Yadiel Acosta pH (U) 7.0 [pH] Normal 5-9 [facility] Comment on above: Performed By: #### ROCIO ALLANRO #### [facility] [address] [place] [address] Dr. Yadiel Acosta SPEC GRAVITY 1.015 Normal 1.005-<=1. 025 [facility] Comment on above: Performed By: #### ROCIO ALLANRO #### [facility] [address] [place] [address] Dr. Yadiel Acosta UA PROTEIN Negative Normal NEGATIVE/ TRACE [facility] Comment on above: Performed By: #### ROCIO ALLANRO #### [facility] [address] [place] [address] Dr. Yadiel Acosta UR MICRO IND INDICATED Normal [facility] Comment on above: Performed By: #### E ROCIO LOMBARDIRO #### [facility] [address] [place] [address] Dr. Yadiel Acosta Urobilinogen Qn (U) 0.2 {Stan'U}/dL Normal 0.2 - 1. 0 [facility] Comment on above: Performed By: #### LALY ALLAN #### [facility] [address] [place] [address] Dr. Yadiel Acosta PROF 14(COMP METB)on 022 Albumin [Mass/Vol] 3.7 g/dL Normal 3.4-5.0 [facility] Comment on above: Performed By: #### C MP #### [facility] [address] [place] [address] Dr. Yadiel Acosta Albumin/Globulin [Mass ratio] 1.1 {ratio} Normal [facility] Comment on above: Performed By: #### C MP #### [facility] [address] [place] [address] Dr. Yadiel Acosta ALP [Catalytic activity/Vol] 77 U/L Normal 46-[address] [facility] Comment on above: Performed By: #### C MP #### [facility] [address] [place] [address] Dr. Yadiel Acosta ALT [Catalytic activity/Vol] 25 U/L Normal 14-[address] [facility] Comment on above: Performed By: #### C MP #### [facility] [address] [place] [address] Dr. Yadiel Acosta Anion gap [Moles/Vol] 9.8 mmol/L Normal [facility] Comment on above: Performed By: #### C MP #### [facility] [address] [place] [address] Dr. Yadiel Acosta AST [Catalytic activity/Vol] 21 U/L Normal 15-37 [facility] Comment on above: Performed By: #### C MP #### [facility] [address] [address] [address] Yadiel Acosta Bilirubin [Mass/Vol] 1.0 mg/dL Normal 0.2-1.0 [facility] Comment on above: Performed By: #### C MP #### [facility] [address] [address] [address] Yadiel Acosta Calcium [Mass/Vol] 8.2 mg/dL Critically low 8.5-10.[address] [facility] Comment on above: Performed By: #### C MP #### [facility] [address] [place] [address] Dr. Yadiel Acosta Chloride [Moles/Vol] 107 mmol/L Normal 98-107 [facility] Comment on above: Performed By: #### C MP #### [facility] [address] [place] [address] Dr. Yadiel Acosta CO2 [Moles/Vol] 27.3 mmol/L Normal 21.0-32.0 [facility] Comment on above: Performed By: #### C MP #### [facility] [address] [place] [address] Dr. Yadiel cAosta Creatinine [Mass/Vol] 0.98 mg/dL Normal 0.55-1.02 [facility] Comment on above: Performed By: #### C MP #### [facility] [address] [place] [address] Dr. Yadiel Acosta EGFR-AF URUGUAYAN >60 Normal >=60 [facility] Comment on above: Performed By: #### C MP #### [facility] [address] [place] [address] Dr. Yadiel Acosta EGFR-NON AF URUGUAYAN >60 Normal >=60 [facility] Comment on above: Performed By: #### C MP #### [facility] [address] [place] [address] Dr. Yadiel Acosta Globulin (S) [Mass/Vol] 3.3 g/dL Normal [facility] Comment on above: Performed By: #### C MP #### [facility] [address] [address] [address] Yadiel Acosta Glucose [Mass/Vol] 88 mg/dL Normal 74-106 [facility] Comment on above: Performed By: #### C MP #### [facility] [address] [address] [address] Yadiel Acosta Potassium [Moles/Vol] 4.1 mmol/L Normal 3.5-5.1 [facility] Comment on above: Performed By: #### C MP #### [facility] [address] [address] [address] Yadiel Acosta Protein [Mass/Vol] 7.0 g/dL Normal 6.4-8.2 [facility] Comment on above: Performed By: #### C MP #### [facility] [address] [place] [address] Dr. Yadiel Acosta Sodium [Moles/Vol] 140 mmol/L Normal 136-145 [facility] Comment on above: Performed By: #### C MP #### [facility] [address] [address] [address] Yadiel Acosta Urea nitrogen [Mass/Vol] 22.0 mg/dL Critically high 7.0-18.0 [facility] Comment on above: Performed By: #### C MP #### [facility] [address] [place] [address] Dr. Yadiel Acosta Urea nitrogen/Creatinine [Mass ratio] 22.4 mg/mg Normal [facility] Comment on above: Performed By: #### C MP #### [facility] [address] [place] [address] Dr. Yadiel Acosta URINE MICROSCOPIC ONLYon BACTERIA NONE SEEN Normal NONE SEEN [facility] Comment on above: Performed By: #### LALY ALLAN #### [facility] [address] [place] [address] Dr. Yadiel Acosta Bacteria identified Cx Nom (U) NOT INDICATED Normal [facility] Comment on above: Performed By: #### LALY ALLAN #### [facility] [address] [place] [address] Dr. Yadiel Acosta CAST NONE SEEN Normal NONE SEEN [facility] Comment on above: Performed By: #### ROCIO ALLANRO #### [facility] [address] [place] [address] Dr. Yadiel Acosta Crystals LM Nom (Urine sed) NONE SEEN Normal NONE SEEN [facility] Comment on above: Performed By: #### Leonila LOMBARDI UMICRO #### [facility] [address] [place] [address] Dr. Yadiel Acosta Epithelial cells LM Ql (Urine sed) RARE Normal NONE SEEN /RARE [facility] Comment on above: Performed By: #### ROCIO ALLANRO #### [facility] [address] [place] [address] Dr. Yadiel Acosta MUCOUS NONE SEEN Normal NONE SEEN [facility] Comment on above: Performed By: #### ROCIO ALLANRO #### [facility] [address] [place] [address] Dr. Yadiel Acosta RBC 0-2 Normal 0-[address] [facility] Comment on above: Performed By: #### ROCIO ALLANRO #### [facility] [address] [place] [address] Dr. Yadiel Acosta WBC NONE SEEN Normal NONE SEEN [facility] Comment on above: Performed By: #### ROCIO ALLANRO #### [facility] [address] [place] [address] Dr. Yadiel Acosta C-Reactive Proteinon 022 CRP IV <0.3 Normal [facility] Electrical Power Engineer Comment on above: Performed By: #### C BCAD, ESR, CRP, CMP #### [facility] [address] [id number] Complete Blood Count with Au to Diffon 06-21-2021 Basophils (Bld) [#/Vol] 0.04 10*3/uL Normal 0.00-0.20 [facility] [employer] Power Engineer Comment on above: Performed By: #### C BCAD, ESR, CRP, CMP #### [facility] [address] [id number] Basophils/100 WBC (Bld) 0.7 % Normal [facility] Comment on above: Performed By: #### C BCAD, ESR, CRP, CMP #### [facility] [address] [place], [place] [id number] Eosinophils (Bld) [#/Vol] 0.13 10*3/uL Normal 0.02-0.50 [facility] Comment on above: Performed By: #### C BCAD, ESR, CRP, CMP #### [facility] [address] [place], [place] [id number] Eosinophils/100 WBC (Bld) 2.2 % Normal [facility] Comment on above: Performed By: #### C BCAD, ESR, CRP, CMP #### [facility] [address] [place], [place] [id number] Erythrocyte distribution width (RBC) [Ratio] 13.1 % Normal 11.0-15.0 [facility] Comment on above: Performed By: #### C BCAD, ESR, CRP, CMP #### [facility] [address] [place], [place] [id number] Hematocrit (Bld) [Volume fraction] 39.5 % Normal 35.0-47.0 [facility] Comment on above: Performed By: #### C BCAD, ESR, CRP, CMP #### [facility] [address] [place], [place] [id number] Hemoglobin (Bld) [Mass/Vol] 12.8 g/dL Normal 11.6-15.5 [facility] Electrical Power Engineer Comment on above: Performed By: #### C BCAD, ESR, CRP, CMP #### [facility] [address] [place], [place] [id number] Lymphocytes (Bld) [#/Vol] 1.6 10*3/uL Normal 0.9-3.9 [facility] Comment on above: Performed By: #### C BCAD, ESR, CRP, CMP #### [facility] [address] [place], [place] [id number] Lymphocytes/100 WBC (Bld) 27.4 % Normal [facility] Comment on above: Performed By: #### C BCAD, ESR, CRP, CMP #### [facility] [address] [place], [place] [id number] MCH (RBC) [Entitic mass] 29.8 pg Normal 27.0-33.0 [facility] Comment on above: Performed By: #### C BCAD, ESR, CRP, CMP #### [facility] [address] [place], [place] [id number] MCHC (RBC) [Mass/Vol] 32.4 g/dL Normal 32.0-36.0 [facility] Comment on above: Performed By: #### C BCAD, ESR, CRP, CMP #### [facility] [address] [place], [place] [id number] MCV (RBC) [Entitic vol] 92 fL Normal 80-100 [facility] Comment on above: Performed By: #### C BCAD, ESR, CRP, CMP #### [facility] [address] [place], [place] [id number] Monocytes (Bld) [#/Vol] 0.5 10*3/uL Normal 0.2-0.9 [facility] Comment on above: Performed By: #### C BCAD, ESR, CRP, CMP #### [facility] [address] [place], [place] [id number] Monocytes/100 WBC (Bld) 8.1 % Normal [facility] Comment on above: Performed By: #### C BCAD, ESR, CRP, CMP #### [facility] [address] [place], [place] [id number] Neutrophils (Bld) [#/Vol] 3.6 10*3/uL Normal 1.5-7.8 [facility] Comment on above: Performed By: #### C BCAD, ESR, CRP, CMP #### [facility] [address] [place], [place] [id number] Neutrophils/100 WBC (Bld) 61.4 % Normal [facility] Comment on above: Performed By: #### C BCAD, ESR, CRP, CMP #### [facility] [address] [place], [place] [id number] Platelet mean volume (Bld) [Entitic vol] 10.40 fL Normal 7.50-12.50 [facility] Comment on above: Performed By: #### C BCAD, ESR, CRP, CMP #### [facility] [address] [place], [place] [id number] Platelets (Bld) [#/Vol] 274 10*3/uL Normal 140-400 [facility] Comment on above: Performed By: #### C BCAD, ESR, CRP, CMP #### [facility] [address] [place], [place] [id number] RBC (Bld) [#/Vol] 4.30 10*6/uL Normal 3.90-5.20 [facility] Comment on above: Performed By: #### C BCAD, ESR, CRP, CMP #### [facility] [address] [place], [place] [id number] RDW-SD 43.2 fL Normal 37.0-50.0 [facility] Special[facility] Comment on above: Performed By: #### C BCAD, ESR, CRP, CMP #### [facility] [address] [place], [place] [id number] WBC (Bld) [#/Vol] 5.9 10*3/uL Normal 3.8-11.0 [facility] Electrical Power Engineer Comment on above: Performed By: #### C BCAD, ESR, CRP, CMP #### [facility] [address] [place], [place] [id number] Comprehensive Metabolic Pane [facility] 06-21-2021 Albumin [Mass/Vol] 4.4 g/dL Normal 3.6-5.1 [facility] Electrical Power Engineer Comment on above: Performed By: #### C BCAD, ESR, CRP, CMP #### [facility] [address] [place], [place] [id number] Albumin/Globulin [Mass ratio] 1.8 {ratio} Normal 1.0-2.5 [facility] Comment on above: Performed By: #### C BCAD, ESR, CRP, CMP #### [facility] [address] [place], [place] [id number] ALP [Catalytic activity/Vol] 77 U/L Normal 35-119 [facility] Comment on above: Performed By: #### C BCAD, ESR, CRP, CMP #### [facility] [address] [place], [place] [id number] ALT [Catalytic activity/Vol] 15 U/L Normal 6-33 [facility] Comment on above: Result Comment: 02/07 Female reference range changed. Performed By: #### C BCAD, ESR, CRP, CMP #### [facility] [address] [place], [place] [id number] Anion gap [Moles/Vol] 16 mmol/L Normal 12-20 [facility] Comment on above: Result Comment: Effe ctive 03/15/2019 reference range changed. Performed By: #### C BCAD, ESR, CRP, CMP #### [facility] [address] [place], [place] [id number] AST [Catalytic activity/Vol] 21 U/L Normal 9-34 [facility] Comment on above: Performed By: #### C BCAD, ESR, CRP, CMP #### [facility] [address] [place], [place] [id number] Bilirubin [Mass/Vol] 0.48 mg/dL Normal 0.30-1.20 [facility] Comment on above: Performed By: #### C BCAD, ESR, CRP, CMP #### [facility] [address] [place], [place] [id number] BUN/CREA 16 Ratio Normal 6-22 [facility] Comment on above: Performed By: #### C BCAD, ESR, CRP, CMP #### [facility] [address] [place], [place] [id number] Calcium [Mass/Vol] 9.3 mg/dL Normal 8.6-10.2 [facility] Comment on above: Performed By: #### C BCAD, ESR, CRP, CMP #### [facility] [address] [place], [place] [id number] Chloride [Moles/Vol] 103 mmol/L Normal 98-107 [facility] Comment on above: Performed By: #### C BCAD, ESR, CRP, CMP #### [facility] [address] [place], [place] [id number] CO2 [Moles/Vol] 27 mmol/L Normal 20-31 [facility] Specialist Comment on above: Performed By: #### C BCAD, ESR, CRP, CMP #### [facility] [address] [place], [place] [id number] Creatinine [Mass/Vol] 1.2 mg/dL Normal 0.6-1.4 [facility] Comment on above: Performed By: #### C BCAD, ESR, CRP, CMP #### [facility] [address] [place], [place] [id number] eGFRAA 56 mL/min/1.73m2 Low >60 [facility] Specialist Comment on above: Performed By: #### C BCAD, ESR, CRP, CMP #### [facility] [address] [place], [place] [id number] eGFRNAA 46 mL/min/1.73m2 Low >60 [facility] Specialist Comment on above: Performed By: #### C BCAD, ESR, CRP, CMP #### [facility] [address] [place], [place] [id number] Globulin (S) [Mass/Vol] 2.4 g/dL Normal 1.9-3.7 [facility] Special[facility] Comment on above: Performed By: #### C BCAD, ESR, CRP, CMP #### [facility] [address] [place], [place] [id number] Glucose [Mass/Vol] 112 mg/dL High 65-99 [facility] Specialist Comment on above: Result Comment: For FASTING Glucose --- ADA reference ranges: Normal 65-99 mg/dl Prediabetes 100-125 Diabetes >/= 126 Performed By: #### C BCAD, ESR, CRP, CMP #### [facility] [address] [place], [place] [id number] Potassium [Moles/Vol] 3.5 mmol/L Normal 3.5-5.5 [facility] Specialist Comment on above: Performed By: #### C BCAD, ESR, CRP, CMP #### [facility] [address] [place], [place] [id number] Protein [Mass/Vol] 6.8 g/dL Normal 6.1-8.1 [facility] Electrical Power Engineer Comment on above: Performed By: #### C BCAD, ESR, CRP, CMP #### [facility] [address], [place] [id number] Sodium [Moles/Vol] 142 mmol/L Normal 135-146 [facility] Comment on above: Performed By: #### C BCAD, ESR, CRP, CMP #### [facility] [address], [place] [id number] Urea nitrogen [Mass/Vol] 20 mg/dL Normal 7-25 [facility] Comment on above: Performed By: #### C BCAD, ESR, CRP, CMP #### [facility] [address] [facility] [place] [id number] Q - REMI MULTIPLEX W/ REFLEX TO 11 ANTIBODY CASCADEon 06-21-2021 ANACHOICE(R) SCREEN Negative Normal NEGATIVE [facility] Comment on above: Order Comment: [facility] performed at: [facility], [facility], [address] [place] [address], [address] [place] [address], [id number], Gut Sorter: Joao Meza MD [facility] Collection Date/Time: [facility] Results Received Date/Time: [facility] Reported Date/Time: Result Comment: A ne gative REMI Multiplex, with Reflex to 11 Antibody [place] indicates the absence of detectable antibodies to component analytes consisting of double stranded DNA (dsDNA), chromatin, ribonucleoprotein (LAMINATION ASSEMBLER), Leal/LAMINATION ASSEMBLER (Sm/LAMINATION ASSEMBLER), Leal (Sm), SS-A, SS-B, Radha-1, centromere B, Scl-70 and ribosomal P. A negative result should be interpreted in the context of the clinical and laboratory findings and does not rule out autoimmune disease characterized by other autoantibody specificities such as rheumatoid arthritis, autoimmune hepatitis, primary biliary cirrhosis, autoimmune thyroiditis, Westmoreland's disease, pernicious anemia, autoimmune neuropathies, vasculitis, celiac disease, and bullous disease. For additional information, please refer to http://education.[address]/faq/AQW108 (This link is being provided for informational/ educational purposes only.) Performed By: #### 1 [id number] #### [facility] [address] [place] [id number] RBC Sedimentation Rateon ESR (Bld) [Velocity] 23.00 mm/h High 0.00-20.00 [employer] [place] Electrical Power Engineer Comment on above: Performed By: #### C BCAD, ESR, CRP, CMP #### [facility] [address] [place], [place] [id number] Vital Signs Date Time Vital Sign Value Performing Clinician Facility 12-22-2023 11:24-0400 Body height 157.5 cm Roxana Vicente PA Work Phone: [facility] 12-22-2023 11:24-0400 Body mass index (BMI) [Ratio] 27.07 kg/m2 Roxana Vicente PA Work Phone: [facility] 12-22-2023 11:24-0400 Body temperature 97.3 [degF] Roxana Vicente PA Work Phone: [facility] 12-22-2023 11:24-0400 Body weight 67.13 kg Roxana Vicente PA Work Phone: [facility] 12-22-2023 11:24-0400 Diastolic blood pressure 78 mm[Hg] Roxana Vicente PA Work Phone: [facility] 12-22-2023 11:24-0400 Heart rate 71 /min Roxana Vicente PA Work Phone: [facility] 12-22-2023 11:24-0400 SaO2% (BldA) [Mass fraction] 98 % Roxana Vicente PA Work Phone: [facility] 12-22-2023 11:24-0400 Systolic blood pressure 132 mm[Hg] Roxana Vicente PA Work Phone: [facility] 07-02-2023 11:24-0400 Body height 157.5 cm 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 Work Phone: [facility] 07-02-2023 11:24-0400 Body mass index (BMI) [Ratio] 25.77 kg/m2 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 Work Phone: [facility] 07-02-2023 11:24-0400 Body temperature 97.81 [degF] 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 Work Phone: [facility] 07-02-2023 11:24-0400 Body weight 63.91 kg 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 Work Phone: [facility] 07-02-2023 11:24-0400 Diastolic blood pressure 61 mm[Hg] 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 Work Phone: [facility] 07-02-2023 11:24-0400 Heart rate 53 /min 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 Work Phone: [facility] 07-02-2023 11:24-0400 SaO2% (BldA) [Mass fraction] 100 % 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 Work Phone: [facility] 07-02-2023 11:24-0400 Systolic blood pressure 102 mm[Hg] 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 Work Phone: [facility] 07-02-2023 09:40-0400 Diastolic blood pressure 61 mm[Hg] Nicanor Ferris MD Work Phone: [facility] 07-02-2023 09:40-0400 Heart rate 47 /min Nicanor Ferris MD Work Phone: [facility] 07-02-2023 09:40-0400 Respiratory rate 18 /min Nicanor Ferris MD Work Phone: [facility] 07-02-2023 09:40-0400 SaO2% (BldA) [Mass fraction] 100 % Nicanor Ferris MD Work Phone: [facility] 07-02-2023 09:40-0400 Systolic blood pressure 96 mm[Hg] Nicanor Ferris MD Work Phone: [facility] 07-02-2023 08:21-0400 Body height 157.5 cm Nicanor Ferris MD Work Phone: [facility] 07-02-2023 08:21-0400 Body mass index (BMI) [Ratio] 25.79 kg/m2 Nicanor Ferris MD Work Phone: [facility] 07-02-2023 08:21-0400 Body temperature 96.8 [degF] Nicanor Ferris MD Work Phone: [facility] 07-02-2023 08:21-0400 Body weight 63.96 kg Nicanor Ferris MD Work Phone: [facility] 06-25-2023 14:31-0400 Body height 157.5 cm Nicanor Ferris MD Work Phone: [facility] 06-25-2023 14:31-0400 Body mass index (BMI) [Ratio] 25.57 kg/m2 Nicanor Ferris MD Work Phone: [facility] 06-25-2023 14:31-0400 Body temperature 97.39 [degF] Nicanor Ferris MD Work Phone: [facility] 06-25-2023 14:31-0400 Body weight 63.41 kg Nicanor Ferris MD Work Phone: [facility] 06-25-2023 14:31-0400 Diastolic blood pressure 46 mm[Hg] Nicanor Ferris MD Work Phone: [facility] 06-25-2023 14:31-0400 Heart rate 58 /min Nicanor Ferris MD Work Phone: [facility] 06-25-2023 14:31-0400 Respiratory rate 14 /min Nicanor Ferris MD Work Phone: [facility] 06-25-2023 14:31-0400 SaO2% (BldA) [Mass fraction] 98 % Nicanor Ferris MD Work Phone: [facility] 06-25-2023 14:31-0400 Systolic blood pressure 94 mm[Hg] Nicanor Ferris MD Work Phone: [facility] 04-07-2023 10:41-0500 Body temperature 96.98 [degF] Malina Castaneda [facility] 04-07-2023 10:41-0500 Diastolic blood pressure 61 mm[Hg] Malina Castaneda [facility] 04-07-2023 10:41-0500 Heart rate 52 /min Malina Castaneda [facility] 04-07-2023 10:41-0500 Systolic blood pressure 90 mm[Hg] Malina Castaneda [facility] 03-30-2023 07:00-0500 Diastolic blood pressure 78 mm[Hg] DO Juancarlos Amin Shantelle Work Phone: [facility] 03-30-2023 07:00-0500 Heart rate 20 /min DO RyanJerman Pepper Work Phone: [facility] 03-30-2023 07:00-0500 Respiratory rate 20 /min DO Juancarlos Pepper Work Phone: [facility] 03-30-2023 07:00-0500 SaO2% (BldA) [Mass fraction] 96 % DO RyanJerman Pepper Work Phone: [facility] 03-30-2023 07:00-0500 Systolic blood pressure 148 mm[Hg] DO Juancarlos Eloisa Pepper Work Phone: [facility] 03-30-2023 04:21-0500 Body height 157.48 cm DO Juancarlos Pepper Work Phone: [facility] 03-30-2023 04:21-0500 Body temperature 97.1 [degF] DO Juancarlos Pepper Work Phone: [facility] 03-30-2023 04:21-0500 Body weight 65.5 kg DO Juancarlos Pepper Work Phone: [facility] 03-24-2023 15:00-0500 Diastolic blood pressure 82 mm[Hg] DO Juancarlos Pepper Work Phone: [facility] 03-24-2023 15:00-0500 Heart rate 60 /min DO Juancarlos Pepper Work Phone: [facility] 03-24-2023 15:00-0500 Respiratory rate 16 /min DO Juanacrlos Pepper Work Phone: [facility] 03-24-2023 15:00-0500 SaO2% (BldA) [Mass fraction] 96 % DO Juancarlos Pepper Work Phone: [facility] 03-24-2023 15:00-0500 Systolic blood pressure 142 mm[Hg] DO Juancarlos Pepper Work Phone: [facility] 03-24-2023 12:27-0500 Body height 157.48 cm DO Juancarlos Pepper Work Phone: [facility] 03-24-2023 12:27-0500 Body temperature 97.9 [degF] DO Juancarlos Pepper Work Phone: [facility] 03-24-2023 12:27-0500 Body weight 66.1 kg DO Juancarlos Pepper Work Phone: [facility] 04-11-2022 14:33-0500 Body height 157.5 cm Laruen Krishnan MD Work Phone: [email or web address] 04-11-2022 14:33-0500 Body mass index (BMI) [Ratio] 23.23 kg/m2 Lauren Krishnan MD Work Phone: [email or web address] 04-11-2022 14:33-0500 Body weight 57.61 kg Lauren Krishnan MD Work Phone: [email or web address] 04-11-2022 14:30-0500 Diastolic blood pressure 94 mm[Hg] Lauren Krishnan MD Work Phone: [email or web address] 04-11-2022 14:30-0500 SaO2% (BldA) [Mass fraction] 98 % Lauren Krishnan MD Work Phone: [email or web address] 04-11-2022 14:30-0500 Systolic blood pressure 138 mm[Hg] Lauren Krishnan MD Work Phone: [email or web address] 04-11-2022 14:25-0500 Body temperature 98.4 [degF] Lauren Krishnan MD Work Phone: [email or web address] 04-11-2022 14:25-0500 Heart rate 85 /min Lauren Krishnan MD Work Phone: [email or web address] 04-11-2022 14:25-0500 Respiratory rate 18 /min Lauren Krishnan MD Work Phone: [email or web address] 09-24-2019 17:26-0400 BP Diastolic 79 mm[Hg] Salim Rolando [facility] [id number] Work Phone: 09-24-2019 17:26-0400 BP Systolic 128 mm[Hg] Salim Rolando [facility] [id number] Work Phone: 09-24-2019 17:26-0400 Pulse (Heart Rate) 90 /min Salim Rolando [facility] [id number] Work Phone: 09-24-2019 17:26-0400 Respiratory Rate 16 /min Salim Rolando [facility] [id number] Work Phone: 09-24-2019 17:26-0400 3 1 Salim Rolando [facility] [id number] Work Phone: Comment on above: Pain Scale Encounters Encounter Date Encounter Type Care Provider Facility Start: 01-28-2024 End: 01-28-2024 Refill Nico Pepper DO Work Phone: [facility] 230 Comment on above: Nonintractable heada jesus, unspecified chronicity pattern, unspecified headache type Start: 01-25-2024 End: 01-26-2024 Refill Nico Pepper DO Work Phone: [facility] 230 Comment on above: Complex regional deshawn n syndrome type 1, affecting unspecified site; Disorder of intervertebral disc of lumbar spine; Chronic pain syndrome; Neuropathy Start: 01-14-2024 ambulatory [facility] Start: 01-08-2024 End: 01-08-2024 Refill Nico Pepper DO Work Phone: [facility] 230 Comment on above: Other chronic pain Start: 01-07-2024 End: 01-07-2024 ambulatory [facility] Start: 12-27-2023 End: 12-29-2023 Refill Nico Pepper DO Work Phone: [facility] 230 Comment on above: Complex regional deshawn n syndrome type 1, affecting unspecified site; Disorder of intervertebral disc of lumbar spine; Chronic pain syndrome; Neuropathy Start: 12-22-2023 End: 12-22-2023 Bamboo flowsheet Roxana Vicente PA Work Phone: [facility] 230 Start: 12-22-2023 End: 12-22-2023 Bamboo flowsheet Roxana Vicente PA Work Phone: [facility] 230 Start: 12-22-2023 End: 12-22-2023 Office outpatient visit 25 minutes Roxana SANTIAGO Work Phone: [facility] 230 Comment on above: Bacterial conjunctiv itis of both eyes (Primary Dx); URI, acute; Need for vaccination; Nephrolithiasis Start: 12-22-2023 End: 12-22-2023 ambulatory ROXANA VICENTE Not Available Start: 11-05-2023 End: 11-05-2023 ambulatory [facility] Start: 09-17-2023 End: 09-17-2023 ambulatory NICO PEPPER Not Available Start: 08-14-2023 ambulatory [facility] Start: 08-06-2023 End: 08-06-2023 ambulatory [facility] Start: 07-22-2023 ambulatory Josephine Culver [facility] Start: 07-10-2023 ambulatory [facility] Cul[facility] Start: 07-02-2023 End: 07-02-2023 ambulatory Malia Meadows PA-C Work Phone: Pulmonary Medicine Start: 07-02-2023 End: 07-02-2023 Patient encounter procedure Aidee Villavicencio APRN.CNP Work Phone: [facility] Comment on above: Epigastric abdominal pain (Primary Dx) Start: 07-02-2023 End: 07-02-2023 Subsequent hospital visit by physician Nicanor Ferris MD Work Phone: Gastroenterology Comment on above: Epigastric abdominal pain [R10.13] Start: 06-25-2023 End: 06-25-2023 Patient encounter procedure Nicanor Ferris MD Work Phone: [facility] Comment on above: Epigastric abdominal pain (Primary Dx); S/P Yefri fundoplication (without gastrostomy tube) procedure Start: 06-25-2023 End: 06-25-2023 ambulatory Michael Raman RNpmp certified project manager Start: 06-25-2023 End: 06-25-2023 Subsequent hospital visit by physician Ct [facility] Comment on above: Epigastric abdominal pain [R10.13] Start: 05-20-2023 Telephone encounter Nicanor Ferris MD Work Phone: [facility] Comment on above: Request Outside Medi dee Records; Received Outside Medical Records Start: 05-19-2023 Telephone encounter Nicanor Ferris MD Work Phone: [facility] Comment on above: External Referrals/r esources Start: 05-13-2023 End: 05-13-2023 ambulatory Malina Castaneda Facility:[facility] Start: 05-07-2023 End: 05-07-2023 ambulatory [facility] Start: 04-28-2023 End: 04-28-2023 ambulatory Malina Castaneda Facility:[facility] Start: 04-28-2023 End: 04-28-2023 Patient encounter procedure Malina Castaneda [facility] Start: 04-24-2023 Codie levy DO Work Phone: [facility] 230 Comment on above: Complex regional deshawn n syndrome type 1, affecting unspecified site; Disorder of intervertebral disc of lumbar spine; Chronic pain syndrome; Neuropathy Start: 04-23-2023 End: 04-23-2023 ambulatory Malina Castaneda Facility:[facility] Start: 04-23-2023 End: 04-23-2023 Patient encounter procedure Malina Youngmetz [facility] Start: 04-16-2023 End: 04-16-2023 ambulatory XXXX NONE Facility:[facility] Start: 04-16-2023 End: 04-16-2023 Patient encounter procedure XXXX NONE [facility] Start: 04-15-2023 End: 04-15-2023 ambulatory Malina Castaneda Facility:[facility] Start: 04-07-2023 End: 04-07-2023 ambulatory Malina Ward YoungTonya Facility:[facility] Start: 04-07-2023 End: 04-07-2023 Patient encounter procedure Malina Castaneda [facility] Start: 03-30-2023 End: 03-30-2023 Emergency department patient visit Juancarlos Pepper Facility:[facility] Start: 03-30-2023 End: 03-30-2023 Emergency department patient visit DO Juancarlos Pepper Work Phone: [facility] Work Phone: Start: 03-24-2023 End: 03-24-2023 Emergency department patient visit Tad Barger Facility:[facility] Start: 03-24-2023 End: 03-24-2023 Emergency department patient visit DO Juancarlos Pepper Work Phone: [facility] Work Phone: Start: 02-28-2023 End: 12-22-2023 ambulatory NICO PEPPER Not Available Start: 02-18-2023 End: 02-18-2023 ambulatory NICO PEPPER Not Available Start: 10-23-[address] Nico Pepper Jr Facility:[id number] Start: 10-23-2022 [id number], Provider : Dc Wu , Status: Pen, Time: 11:00 AM Nico Pepper Work Phone: [facility] Work Phone: Start: 10-23-2022 Patient encounter procedure Nico Pepper Work Phone: [facility] Work Phone: Start: 10-17-2022 Patient encounter procedure Nico Pepper [facility] Work Phone: Start: 10-17-[address] Nico Pepper Jr Facility:[id number] Start: 10-03-2022 Image Encounter Nico levy Work Phone: [facility] Work Phone: Start: 09-25-2022 Chart Update Nico levy Work Phone: [facility] Work Phone: Start: 09-23-2022 Patient encounter procedure Nico Pepper Work Phone[facility] Work Phone: Start: 09-23-[address] Nico Pepper Jr Facility:[id number] Start: 09-23-[address] Nico Pepper Jr Facility:[id number] Start: 08-26-2022 Patient encounter procedure Nico Pepper Work Phone: [facility] Work Phone: Start: 08-08-2022 Patient encounter procedure Nico Pepper Work Phone: [facility] [place] Work Phone: Start: 07-08-[address] Madeleine Marshall Facility:[facility] Start: 06-13-2022 End: 06-13-[address] MARIA M LIEBERMAN . Facility: Start: 04-11-2022 Emergency department patient visit LAUREN EULOGIO [facility] Start: 04-11-2022 End: 04-11-2022 Emergency department patient visit Lauren Krishnan MD Work Phone: [facility] ED Comment on above: Constipation, unspec ified constipation type (Primary Dx); Kidney stone Start: 01-17-[address] SCAR LAZARO . Faci lity:[facility] Start: 12-25-2021 End: 12-26-2021 ambulatory BUDDY CAVANAUGH Facility: Start: 10-31-2021 End: 11-01-2021 ambulatory BUDDY CAVANAUGH Facility: Start: 10-18-2021 End: 10-19-[address] SCAR LAZARO . Facility: Start: 10-02-2021 End: 10-02-[address] SCAR LAZARO . Facility: Start: 09-18-2021 End: 09-18-[address] BRY BHATIA Facility: Start: 09-18-2021 End: 09-18-[address] KYMBERLY LEAL Facility: Start: 09-06-2021 End: 09-07-[address] Ryan PEPPER Facility: Start: 09-01-2021 End: 09-01-[address] KIRAN SOLANO . Facility: Start: 08-21-2021 End: 08-21-[address] Ryan PEPPER Facility:[facility] Start: 07-10-2021 End: 07-11-[address] Ryan PEPPER Facility: Procedures Date Procedure Procedure Detail Performing Clinician Start: 12-22-2023 Urnls dip stick/tablet rgnt non-auto w/o micrscp Roxana SANTIAGO Work Phone: Start: 07-02-2023 Esophagogastroduodenoscopy transoral diagnostic Nicanor Ferris MD Work Phone: Start: 06-25-2023 Ct thorax w/o contrast material Nicanor hopper MD Work Phone: Start: 03-24-2023 Computed tomography of abdomen and pelvis with contrast DO Juancarlos Pepper Work Phone: Start: 03-24-2023 Plain chest X-ray DO Juancarlos Pepper Work Phone: Start: 08-21-2022 Psychiatric diagnostic evaluation Nico Pepper Work Phone: Start: 04-11-2022 Ct abdomen & pelvis w/o contrast material Lauren Krishnan MD Work Phone: Start: 04-11-2022 Urinalysis microscopic only Nico burns Work Phone: Start: 04-11-2022 Urnls dip stick/tablet rgnt auto w/o microscopy Lauren Krishnan MD Work Phone: Start: 04-11-2022 Comprehensive metabolic panel Lauren magana MD Work Phone: Start: 10-11-2021 Colonoscopy Nico Pepper DO Work Phone: Start: 03-20-2021 Esophagogastroduodenoscopic electrohydraulic lithotripsy of bezoar in stomach Malina Castaneda Start: 01-01-2019 Mammography Nico Pepper DO Work Phone: Start: 01-23-2018 H/O: hysterectomy Status post hysterectomy Nico Pepper DO Work Phone: Start: 06-23-2017 Extracorporeal shockwave lithotripsy of calculus of kidney Malina Castaneda Appendectomy Malina Locoz Arthroscopy of knee Malina Enrique inmetjusto Cholecystectomy Malina Catia zuniga Hysterectomy Malina Locoz Plan of Treatment Date Care Activity Detail Author Start: 11-15-2032 Urine microalbumin profile DTaP,Tdap,Td Vaccine (2 - Td or Tdap) [facility] Start: 10-12-2031 Screening for malign ant neoplasm of colon [facility] Start: 07-01-2024 BP Controlled (<130/80) BP Con trolled (<130/80) [facility] Start: 12-22-2023 End: 12-22-2023 Patient encounter procedure 12/22/2023 11:20 AM EDT Office Visit [facility] [address] [place] [id number] Roxana Vicente PA [address] [place] [address] Arrived [facility] 230 Comment on above: Arrived Start: 11-09-2023 Influenza vaccination Influenza Vacc ine (#1) [facility] Start: 03-10-2023 Behavioral Health Screening Behavioral Health Screening [facility] Start: 03-10-2023 Depression Assessment Depression Ass essment [facility] Start: 12-17-2022 FUV, Provider: Humphrey Pfeiffer, Status: Pen, Time: 10:15 AM FUV, Provider: Humphrey Pfeiffer, Status: Pen, Time: 10:15 AM [facility] Work Phone: Start: 10-17-2022 FUV, Provider: Humphrey Pfeiffer, Status: Pen, Time: 11:15 AM FUV, Provider: Humphrey Pfeiffer, Status: Pen, Time: 11:15 AM [facility] Work Phone: Start: 10-08-2021 Influenza vaccination Flu vaccine (# 1) [facility] Start: 05-23-2021 COVID-19 Vaccine (3 - Booster for Felicia series) COVID-19 Vaccine (3 - Booster for Felicia series) [facility] Start: 01-02-2020 Screening for malign ant neoplasm of breast Mammogram [facility] Start: 01-01-2020 Screening for malign ant neoplasm of breast Mammogram Screening [facility] Start: 2019 Diabetes Screening Diabetes Screenin g [facility] Start: 2019 Lipid panel Lipid Screening [facility] Start: 2019 Screening for malign ant [facility]oplasm [facility] Start: 2014 Lipid panel Lipids [facility] Start: 2014 Screening for malign ant neoplasm of breast Mammogram Screening [facility] Start: 2004 Screening for malign ant neoplasm of cervix 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 Start: 1992 HIV screening HIV Screening [facility] Start: 1989 HIV screening HIV screen [facility] Start: 1986 Depression Screen [facility] Start: 1974 Screening for malign ant neoplasm of colon [facility] End: 06-17-2024 CT Abdomen WO contrast CT ABDOMEN WO IVCON Radiology Routine Epigastric abdominal pain 1 Occurrences starting 05/19/2023 until 06/17/2024 [facility] Work Phone: Comment on above: 1 Occurrences starti ng 05/19/2023 until 06/17/2024 End: 06-17-2024 CT Chest WO contrast CT CHEST WO IVCON Radiology Routine Epigastric abdominal pain 1 Occurrences starting 05/19/2023 until 06/17/2024 [facility] Work Phone: Comment on above: 1 Occurrences starti ng 05/19/2023 until 06/17/2024 End: 05-18-2024 EGD DIAGNOSTIC EGD DIAGNOSTIC Endoscopy Routine Epigastric abdominal pain 1 Occurrences starting 05/19/2023 until 05/18/2024 [facility] Work Phone: Comment on above: 1 Occurrences starti ng 05/19/2023 until 05/18/2024 Patient Education [facility] Work Phone: Patient referral [facility] Work Phone: SURGICAL PATHOLOGY [facility] Work Phone: Comment on above: Release Upon Karenain g for 1 Occurrences starting 07/02/2023, 1 completed [facility] Immunizations Immunization Date Immunization Notes Care Provider Fransisca pritchett 12-22-2023 Influenza, Madin Orlando by Canine Kidney, subunit, trivalent, injectable, contains preservative Roxana SANTIAGO Work Phone: [facility] 11-06-2023 measles, mumps and rubella virus vaccine Roxana SANTIAGO Work Phone: [facility] 10-06-2023 measles, mumps and rubella virus vaccine Roxana SANTIAGO Work Phone: [facility] 01-23-2023 SARS-COV-2 (COVID-19 ) vaccine, mRNA, spike protein, LNP, PF, 50 mcg/0.5 mL Nico Pepper DO Work Phone: [facility] 01-06-2023 influenza virus vaccine, unspecified formulation Malina Castaneda [facility] 01-06-2023 influenza, injectabl e, quadrivalent, preservative free Nico Pepper DO Work Phone: [facility] 01-06-2023 influenza, seasonal, injectable Nico Pepper DO Work Phone: [facility] 11-15-2022 tetanus toxoid, redu bernard diphtheria toxoid, and acellular pertussis vaccine, adsorbed Malina Castaneda [facility] 03-28-2021 Moderna COVID-19 Vaccine 100 MCG/0.5ML Intramuscular Suspension Nico Pepper Work Phone: [facility] 12-28-2020 influenza virus vaccine, unspecified formulation Malina Castaneda [facility] 12-28-2020 influenza, injectabl e, quadrivalent, contains preservative Nico Pepper Work Phone: [facility] [place] Work Phone: 12-08-2020 influenza virus vaccine, unspecified formulation Malina Castaneda [facility] 06-06-2020 Felicia COVID-19 Vaccine 0.5 ML Intramuscular Suspension Nico Swiftjoeyjose Work Phone: [facility] Comment on above: Result Comment: 2023: [id number] 06-05-2020 Felicia SARS-CoV-2 Nico altamirano Work Phone: [facility] 01-07-2020 influenza virus vaccine, unspecified formulation Malina Castaneda [facility] 01-07-2020 influenza, injectabl e, quadrivalent, preservative free Nico Pepper Work Phone: [facility] [place] Work Phone: 12-25-2018 influenza, injectabl e, madin usha canine kidney, preservative free Nico Pepper Work Phone: [facility] [place] Work Phone: Payers Date Payer Category Payer Self-pay [id number] 2023 Private Health Insurance [employer] [id number] 2022 Private Health Insurance [facility] [id number]. [id number] 2021 Unknown [id number] 2021 Unknown [id number] 1974 Unknown [id number] 2.16.840.1.287878.3.579.2. 174 1974 Unknown [id number] 2.16.840.1.566457.3.579.2. 593 1974 Unknown [id number] 2.16.840.1.719037.3.579.2. 593 1974 Unknown [id number] 2.16.840.1.582212.3.579.2. 593 1974 Unknown [id number] 2.16.840.1.346087.3.579.2. 593 1974 Unknown [id number] 2.16.840.1.895794.3.579.2. 593 1974 Unknown [id number] 2.16.840.1.708115.3.579.2. 593 1974 Unknown [id number] 2.16.840.1.688905.3.579.2. 593 1974 Unknown [id number] 2.16.840.1.526202.3.579.2. 593 1974 Unknown [id number] 2.16.840.1.532972.3.579.2. 593 1974 Unknown [id number] 2.16.840.1.350584.3.579.2. 593 1974 Unknown [id number] 2.16.840.1.763963.3.579.2. 593 1974 Unknown [id number] 2.16.840.1.598053.3.579.2. 593 1974 Unknown [id number] 2.16.840.1.857637.3.579.2. 593 1974 Unknown [id number] 2.16.840.1.043706.3.579.2. 356 1974 Unknown [id number] 2.16.840.1.566510.3.579.2. 1069 1974 Unknown [id number] 2.16.840.1.006320.3.579.2. 356 1974 Unknown [id number] 2.16.840.1.493593.3.579.2. 1068 1974 Unknown [id number] 2.16.840.1.657393.3.579.2. 1068 1974 Unknown [id number] 2.16.840.1.174640.3.579.2. 727 1974 Unknown [id number] 2.16.840.1.673189.3.579.2. 727 1974 Unknown [id number] 2.16.840.1.280358.3.579.2. 727 1974 Unknown [id number] 2.16.840.1.765189.3.579.2. 727 1974 Unknown [id number] 2.16.840.1.750194.3.579.2. 727 1974 Unknown [id number] 2.16.840.1.527178.3.579.2. 727 1974 Unknown [id number] 2.16.840.1.306365.3.579.2. 727 1974 Unknown [id number] 2.16.840.1.683671.3.579.2. 727 1974 Unknown [id number] 2.16.840.1.878725.3.579.2. 1259 1974 Unknown [id number] 2.16.840.1.205966.3.579.2. 1259 1974 Unknown [id number] 2.16.840.1.689210.3.579.2. 1259 1974 Unknown [id number] 2.16.840.1.033479.3.579.2. 1259 1959 Private Health Insurance [facility] [id number] 1959 Unknown [id number] 1959 Unknown [id number] 1959 Unknown Unknown [id number] Unknown [id number] 2.16.840.1.039931.3.579.2. 531 Unknown [id number] 2.16.840.1.261491.3.579.2. 531 Social History Date Type Detail Facility Assertion Tobacco smoking consumption unknown (finding) [facility] [id number] Work Phone: Start: 04-11-2022 End: 10-18-2022 Tobacco smoking status DCIS Never smoked tobacco [employer] Phone: Start: 04-11-2022 End: 06-25-2023 Tobacco use and exposure Smokeless tobacco non-user [employer] Phone: Start: 04-11-2022 Alcohol intake Lifetime non-d kerri (finding) [facility] Phone: Start: 04-11-2022 History SDOH Alcohol Frequency 1 [employer] Phone: Start: 04-11-2022 History SDOH Alcohol Std Drinks 0 [facility] Phone: Start: 1975 Sex Assigned At Not on file B ON [employer] Phone: Start: 04-01-2022 End: 04-11-2022 Exposure to SARS-CoV-2 (event) Not sure [employer] Phone: Start: 02-18-2023 End: 12-22-2023 Non-smoker Non-smoker [facility] [place] Work Phone: Start: 1975 Sex Assigned At Female F [facility] Tobacco smoking status Never [facility] Start: 02-18-2023 End: 12-22-2023 Sex Assigned At Female [facility] Start: 02-18-2023 End: 12-22-2023 Alcohol intake Ex-drinker (finding) [facility] Tobacco smoking stat [facility] [place] Tobacco smoking consumption unknown [facility] Work Phone (unformatted): [phone] History of tobacco use Passive smoker [facility] Medical Equipment Procedure Code Equipment Code Equipment Origin al Text Equipment Identifier Dates Shoulder arthroscopy ANCHOR LABR AL JUGGERKNOT FDA Start: 12-09-2017 Shoulder arthroscopy ANCHOR LABR AL JUGGERKNOT FDA Start: 12-09-2017 Shoulder arthroscopy ANCHOR LABR AL JUGGERKNOT FDA Start: 12-09-2017 Shoulder arthroscopy ANCHOR LABR AL JUGGERKNOT FDA Start: 12-09-2017 Functional Status Date Assessment Result Facility 04-07-2023 Functional Status N/A [facility] NEGATED: Highlighted row Functional performance Functional status health issues are not documented Disease [facility] [id number] Work Phone: Mental Status Date Assessment Result Facility NEGATED: Highlighted row Cognitive function [Interpretation] Cognitive status health issues are not documented Disease [facility] [id number] Work Phone: Clinical Notes 07-10-2021 to 01-14-2024 PAMELA Rodas - 12/22/2023 11:20 AM Nicanor Melton MD - 07/24/2023 2:29 PM Rachana Narvaez MD - 06/25/2023 2:52 PM Josephine Foley - 07/22/2023 2:08 PM EDTRadiologyRadiologyRadiology Note Date & Type Note Facility 01-14-2024 Note Orthopedic Surgery 01/07/2024 Small Finger Hardware Removal - Right and Ring Finger Trigger Release - Right Tasneem Camarillo comes in for a post-operative visit after having a right SF HWR and RF trigger release done on 01/07/2024. Today she is doing well and has no unexpected complaints. Physical Exam: The incision site is healing well. There is no erythema, drainage or signs of infection. Tenderness is mild and localized to the surgical site. Sensation is present to light touch. Range of motion is appropriate for this time. Assessment: Tasneem Camarillo is a 48 y.o. year old female with a HWR of the R RF Plan: The sutures were removed in the clinic today. I instructed the patient on how to do scar massage, and then apply lotion to the incisional site. She can begin using the hand and returning to activities as tolerated. We will see her back in the clinic 3 months. [facility] 01-07-2024 Note Patient: Tanseem lyon Procedure Summary Date: 01/07/24 Room / Location: [facility] OR [address] [place] [address] [facility] OR Anesthesia Start: 1022 Anesthesia Stop: 1111 Procedures: Small Finger Hardware Removal (Right: Little Finger) Ring Finger Trigger Release (Right: Ring Finger) Diagnosis: Painful orthopaedic hardware (CMS/HCC) (Painful orthopaedic hardware (CMS/HCC) [T84.84XA]) Surgeons: Vadim Chowdhury MD Responsible Provider: Franklin Nugent MD Anesthesia Type: regional ASA Status: 2 Anesthesia Type: regional Vitals Value Taken Time BP 122/73 01/07/24 1145 Temp 36.8 ???C (98.2 ???F) 01/07/24 1108 Pulse 46 01/07/24 1145 Resp 12 01/07/24 1145 SpO2 100 % 01/07/24 1145 Anesthesia Post Evaluation Patient location during evaluation: PACU Patient participation: complete - patient participated Level of consciousness: awake Pain score: 1 Pain management: adequate Airway patency: patent Cardiovascular status: acceptable Respiratory status: acceptable Patient is hemodynamically stable and is able to be discharged from PACU per anesthesia protocol. No notable events documented. [facility] 01-07-2024 Note Patient: Tasneem lyon Procedure Information Anesthesia Start Date/Time: 01/07/24 102 Procedures: Small Finger Hardware Removal (Right: Little Finger) Ring Finger Trigger Release (Right: Ring Finger) - C-Arm, MEDARTIS PLATE AND SCREWS IN Location: [address] OR Surgeons: Vadim Chowdhury MD Relevant Problems Anesthesia (-) History of anesthesia complications Cardio (+) Hypertension Endo (+) Hypothyroidism /Renal (+) Kidney stone Other (+) Arthritis Clinical information reviewed: Tobacco Allergies Meds Med Hx Surg Hx OB Status Fam Hx Soc Hx Physical Exam Airway Mallampati: III TM distance: >3 FB Neck ROM: full Cardiovascular Rhythm: regular Rate: normal Dental Comments: Grossly unremarkable. Pulmonary Breath sounds clear to auscultation Abdominal Anesthesia Plan ASA 2 regional (Plan regional block with sedation with backup general anesthesia if needed. Patient was interviewed and evaluated prior to the start of the anesthetic. Note was inputted later.) intravenous induction Anesthetic plan and risks discussed with patient. Plan discussed with CAA and resident. Additional Equipment Requests [facility] 01-07-2024 Note Patient: Tasneem lyon Procedure Summary Date: 01/07/24 Room / Location: [facility] OR [address] [place] [address] OR Anesthesia Start: 1023 Anesthesia Stop: Procedures: Small Finger Hardware Removal (Right: Little Finger) Ring Finger Trigger Release (Right: Ring Finger) Diagnosis: Painful orthopaedic hardware (CMS/HCC) (Painful orthopaedic hardware (CMS/HCC) [T84.84XA]) Surgeons: Vadim Chowdhury MD Responsible Provider: Franklin Nugent MD Anesthesia Type: regional ASA Status: Not recorded Anesthesia Post Transport Note Transport to: [facility] PACU O2 Route: nasal cannula Oxygen Flow (L/min): 3 Patient Monitor: direct observation Transport: uneventful Patient condition is: stable [facility] 01-07-2024 Note Peripheral Block Patient location during procedure: pre-op Start time: 01/07/2024 10:08 AM End time: 01/07/2024 10:23 AM Reason for block: primary anesthetic Staffing Performed: resident/CABLE TELEVISION LINE TECHNICIAN/CAA Anesthesiologist: Nathaniel Bhatia MD Resident/CABLE TELEVISION LINE TECHNICIAN: José Vee MD Preanesthetic Checklist Completed: patient identified, IV checked, site marked, risks and benefits discussed, surgical consent, monitors and equipment checked, pre-op evaluation and timeout performed Peripheral Block Patient position: supine Prep: ChloraPrep Patient monitoring: continuous pulse ox Block type: axillary Laterality: right Injection technique: single-shot Guidance: ultrasound guided Needle Needle gauge: 22 G Needle length: 2 in Needle localization: ultrasound guidance Medications Administered fentaNYL (SUBLIMAZE) IV - intravenous 50 mcg - 01/07/2024 10:08:00 AM midazolam (VERSED) IV - intravenous 2 mg - 01/07/2024 10:08:00 AM BUPivacaine (Marcaine) injection 0.5 % (5 mg/mL) - injection 150 mg - 01/07/2024 10:08:00 AM Assessment Injection assessment: negative aspiration for heme, no paresthesia on injection and incremental injection Heart rate change: no Slow fractionated injection: yes [facility] 12-22-2023 History of Presen t illness Narrative Images from the original note were not included. Subjective Patient ID: Tasneem Camarillo is a 48 y.o. female who presents for Urinary Retention (Pt presents today for urinary retention. Pt states she feels like she constantly has to urinate. Complaining of odor, flank and groin pain. Pt takes oxyurosis for pain. Pt is unsure of onset but has been awhile. /Pt believes she has pink eye. Pt has drainage from her eyes, this has been a burns color. States her eyes are red and swollen. Pt states she has been using eye drops but this hasn't seemed to help. ). UTI This is a new problem. Episode onset: unsure. The problem is unchanged. Associated symptoms include pain. Pertinent negatives include no hematuria. The pain is present in the bladder and back. Risk factors include kidney stones. Conjunctivitis The current episode started 3 to 5 days ago. The onset was sudden. The problem is mild. Nothing relieves the symptoms. Associated symptoms include eye itching, congestion, cough, URI, eye discharge and eye redness. Pertinent negatives include no fever, no decreased vision, no nausea, no vomiting, no ear pain, no headaches, no sore throat, no wheezing, no rash and no eye pain. URI This is a new problem. Episode onset: 2 weeks ago. The problem has been unchanged. There has been no fever. Associated symptoms include congestion and coughing. Pertinent negatives include no ear pain, headaches, nausea, plugged ear sensation, rash, sinus pain, sore throat, vomiting or wheezing. She has tried nothing for the symptoms. Review of Systems Constitutional: Negative for chills and fever. HENT: Positive for congestion and postnasal drip. Negative for ear pain, sinus pain and sore throat. Eyes: Positive for discharge, redness and itching. Negative for pain. Respiratory: Positive for cough. Negative for wheezing. Gastrointestinal: Negative for nausea and vomiting. Genitourinary: Negative for hematuria. Musculoskeletal: Negative for myalgias. Skin: Negative for rash. Neurological: Negative for headaches. All other systems reviewed and are negative. Objective Visit Vitals BP 132/78 Pulse 71 Temp 97.3 F Ht 5' 2 Wt 148 lb SpO2 98% BMI 27.07 kg/m Smoking Status Never BSA 1.71 m Physical Exam Constitutional: General: She is not in acute distress. Appearance: She is ill-appearing. HENT: Head: Normocephalic and atraumatic. Nose: Congestion present. Right Sinus: No maxillary sinus tenderness or frontal sinus tenderness. Left Sinus: No maxillary sinus tenderness or frontal sinus tenderness. Mouth/Throat: Mouth: Mucous membranes are moist. Pharynx: Posterior oropharyngeal erythema present. No oropharyngeal exudate. Eyes: General: Right eye: Discharge present. Left eye: Discharge present. Extraocular Movements: Extraocular movements intact. Conjunctiva/sclera: Right eye: Right conjunctiva is injected. Left eye: Left conjunctiva is injected. Cardiovascular: Rate and Rhythm: Normal rate and regular rhythm. Pulses: Normal pulses. Heart sounds: No murmur heard. No friction rub. No gallop. Pulmonary: Effort: No respiratory distress. Breath sounds: Normal breath sounds. No wheezing, rhonchi or rales. Abdominal: General: Abdomen is flat. Bowel sounds are normal. There is no distension. Palpations: Abdomen is soft. Tenderness: There is no abdominal tenderness. There is no right CVA tenderness or guarding. Musculoskeletal: Cervical back: Normal range of motion and neck supple. No tenderness. Lymphadenopathy: Cervical: No cervical adenopathy. Skin: General: Skin is warm and dry. Neurological: General: No focal deficit present. Mental Status: She is alert. Psychiatric: Mood and Affect: Mood normal. Behavior: Behavior normal. Judgment: Judgment normal. Assessment/Plan Diagnoses and all orders for this visit: Bacterial conjunctivitis of both eyes - trimethoprim-polymyxin b (Polytrim) ophthalmic solution; Administer 1 drop into affected eye(s) in the morning and 1 drop at noon and 1 drop in the evening and 1 drop before bedtime. Do all this for 10 days. Apply abx eyedrops as prescribed. Wash hands often, especially after touching eyes. Pt is not permitted to attend school/work for 24 hours, as this is highly contagious. Use the drops one dose beyond the disappearance of the discharge and erythema. Change/wash pillow cases for the next 2-3 nights. URI, acute - azithromycin (Zithromax) 250 MG tablet; Take 2 tablets on day 1, then take 1 tablet for 4 days by mouth - brompheniramine-pseudoephedrine -DM 30-2-10 MG/5ML syrup; Take 10 mL by mouth 4 (four) times a day as needed for cough or congestion (q6hrs) Treatment options discussed; take medications as directed. Patient advised to increase fluid intake, use guaifenesin, and humidify the air. May use Tylenol as needed. F/u if not improving. To ER or Urgent Care if symptoms worsen or fever >101.5. Report to ER for any breathing difficulties. Patient verbalized understanding. Need for vaccination - Flu vaccine, MDCK, Trivalent, Nephrolithiasis Symptoms appear consistent with nephrolithiasis. OTC medications for symptom relief. Increase fluids. Avoid caffeine. Avoid holding urine for long periods of time. Discussed when to go to the ER regarding any systemic symptoms including fever, chills, myalgia, n/v, diarrhea, etc. Will call patient with results and determine f/u at that time. All questions answered. Call the office with any further questions or concerns. Recent Results (from the past 2 hours) POCT urinalysis dipstick manually resulted Collection Time: 12/22/23 11:49 AM Result Value Ref Range Color, UA Yellow Clarity, UA Clear Glucose, UA Negative Negative - 2000(110) ++++ mg/dL Bilirubin, UA Negative Negative - 4(70) +++ mg/dL Ketones, UA Negative Negative - 160(16) ++++ mg/dL Spec Grav, UA 1.020 1 - 1.03 Blood, UA Negative Negative - 50 Igor/mcL pH, UA 5.5 5 - 9 Protein, UA Negative Negative - 1999(20) ++++ mg/dL Urobilinogen, UA 0.2 0.2 - 12 mg/dL Leukocytes, UA Negative Negative - 500+++ Lashonda/mcL Nitrite, UA Negative Negative - Positive documented in this encounter [facility] 11-05-2023 Note Orthopedic Surgery Subjective Chief complaint: Chief Complaint Patient presents with Right Hand - Pain Tanseem Camarillo is a 48 y.o. year old female presenting for evaluation of a right small finger PIP joint fusion. Tasneem is doing fairly well. She is hampered by the hardware and has some tenderness. She would like to have the hardware removed. She is currently working without restrictions and doing her required daily activities with mild difficulties. Roughly 2.5 months ago, the patient began to develop trigger finger symptoms in the ring finger of the right hand. She reports her finger catching roughly 2-3 times per week. When this happens, she has pain that radiates up her forearm. She recently saw occupational health which had her fitted for a hand splint. She reports wearing this splint regularly and it helps control her symptoms. Previous Treatments: PIP fusion right small finger (11/25/22) Patient History Past Surgical History: Procedure Laterality Date APPENDECTOMY CHOLECYSTECTOMY HERNIA REPAIR HYSTERECTOMY Past Medical History: Diagnosis Date Anxiety Back pain Bipolar 1 disorder (CMS/HCC) CRPS (complex regional pain syndrome type I) Delayed emergence from general anesthesia Depression Kidney stone Migraines Objective General: Body mass index is 25.61 kg/m???. No acute distress, comfortable Respiratory: Unlabored breathing with normal rate, no cough Cardiovascular: Warm well perfused extremities Psych: Appropriate mood behavior Right small finger: There is mild tenderness to palpation over the dorsum of the PIP joint where the hardware is. The scar is well-healed. The PIP is in about 45 degrees of flexion. There is no appreciable motion or discomfort with stress on the PIP joint. She does have some flexion of the DIP but very little active extension at that joint. MP motion is normal. Sensation and cap refill are normal. Right ring finger: She has tenderness to palpation over the A1 hollis. There is a palpable nodule there. There is pain with passive stretching. Tightness observed in right ring finger on passive movement. 11/05/23 Imaging: AP and lateral x-rays of the right small finger were obtained today. Bone looks fused and healed. Line at PIP joint is no longer visible. The hardware is stable without any interval changes. Assessment/Plan Tasneem Camarillo is a 48 y.o. year old female with Contracture of the small finger joint, right, and a trigger digit of the right ring finger. PLAN: - C9 for right little finger plate removal - C9 for right ring finger trigger finger release surgery - Consent signed today, will call for surgery scheduling after approval Mohit Trammell, MS4 [facility] I was physically present with the medical student. I have personally performed (or re-performed) the physical exam and medical decision making for the patient. I personally verified the medical student's documentation. I made pertinent changes as necessary to ensure accurate documentation. Additional Notes/Findings: The bone is solidly fused in the small finger and I think we can safely remove her hardware. Hopefully that will get her DIP joint moving a little better. It certainly makes sense to take care of the trigger finger at the same time as that is very symptomatic. We will submit a C9 and schedule those procedures when they are approved. Consent was obtained today [facility] 10-31-2023 Note rig [facility] 08-06-2023 Note Orthopedic Surgery Subjective Chief complaint: Chief Complaint Patient presents with Right Little Finger - Follow-up, Pain Having pain, tightness and feels like something is pulling in the little finger. ff Tasneem Camarillo is a 48 y.o. year old female presenting for evaluation of a right small finger PIP joint fusion. All in all Tasneem is doing fairly well. She is hampered by the hardware and has some tenderness. She would like to have that removed at some point. She is currently working without restrictions and doing her required daily activities with mild difficulties. Previous Treatments: PIP fusion right small finger Patient History Past Surgical History: Procedure Laterality Date APPENDECTOMY CHOLECYSTECTOMY HERNIA REPAIR HYSTERECTOMY Past Medical History: Diagnosis Date Anxiety Back pain Bipolar 1 disorder (CMS/HCC) CRPS (complex regional pain syndrome type I) Delayed emergence from general anesthesia Depression Kidney stone Migraines Objective General: There is no height or weight on file to calculate BMI. No acute distress, comfortable Respiratory: Unlabored breathing with normal rate, no cough Cardiovascular: Warm well perfused extremities Psych: Appropriate mood behavior Right small finger: There is mild tenderness to palpation over the dorsum of the PIP joint where the hardware is. The scar is well-healed. The PIP is in about 45 degrees of flexion. There is no appreciable motion or discomfort with stress on the PIP joint. She does have some flexion of the DIP but very little active extension at that joint. MP motion is normal. Sensation and cap refill are normal. Imaging: AP and lateral x-rays of the right small finger were obtained today. There is still a slight line that is visible at the PIP joint. The hardware is stable without any interval changes. Assessment/Plan Tasneem Camarillo is a 48 y.o. year old female with Contracture of finger joint, right PLAN: With the line being still visible, I do not think it would be [place] to remove the hardware yet. I am really glad to get through the summer and see her back in 3 months with a repeat x-ray. If everything looks good we will set her up for a removal of the hardware at that time. [facility] 07-24-2023 Note HNO ID: [id number] Author: NICANOR FERRIS MD Service: ? Author Type: Physician Type: Progress Notes Filed: 07/24/2023 14:31 Note Text: I have read and reviewed the documentation and agree. I wish to add the followingI wish to add the following findings which will be communicated back to the requesting physician. Nicanor Ferris MD [facility] STAFF PHYSICIAN NOTE OF PERSONAL INVOLVEMENT IN CARE Impression: 48 year old F with a history of bipolar disorder, hypertension, lap leena, and GERD with paraesophageal hernia s/p laparoscopic hiatal hernia repair with yefri fundoplication in 2012. She presents with two years of constant epigastric pain exacerbated by eating and drinking. The etiology is unclear at this time. CT scan without any evidence of recurrent hernia or slipped wrap. Upper GI possibly with a slipped cardia. I have recommended an EGD for further clarification. I would not recommend surgery unless a clear etiology can be ascertained. Plan: EGD to determine if cardia is slipped through the wrap I have reviewed the documentation obtained and documented by the Resident and I have personally performed a face to face assessment of the patient and have personally participated in the farrell components of the visit which includes medical decision making.. I have discussed the case and management of the patient's care. STAFF PHYSICIAN: Nicanor Ferris MD DATE OF SERVICE: 06/25/23 530 PM [facility] 07-24-2023 History of Presen t illness Narrative I have read and reviewed the documentation and agree. I wish to add the followingI wish to add the following findings which will be communicated back to the requesting physician. Nicanor Ferris MD [facility] STAFF PHYSICIAN NOTE OF PERSONAL INVOLVEMENT IN CARE Impression: 48 year old F with a history of bipolar disorder, hypertension, lap leena, and GERD with paraesophageal hernia s/p laparoscopic hiatal hernia repair with yefri fundoplication in 2012. She presents with two years of constant epigastric pain exacerbated by eating and drinking. The etiology is unclear at this time. CT scan without any evidence of recurrent hernia or slipped wrap. Upper GI possibly with a slipped cardia. I have recommended an EGD for further clarification. I would not recommend surgery unless a clear etiology can be ascertained. Plan: EGD to determine if cardia is slipped through the wrap I have reviewed the documentation obtained and documented by the Resident and I have personally performed a face to face assessment of the patient and have personally participated in the farrell components of the visit which includes medical decision making.. I have discussed the case and management of the patient's care. STAFF PHYSICIAN: Nicanor Ferris MD DATE OF SERVICE: 06/25/23 530 PM Images from the original note were not included. [facility] THORACIC SURGERY OUTPATIENT CONSULT NOTE Tasneem Camarillo [phone] Requesting Provider: Self Thoracic Physician: Nicanor Ferris MD Chief Complaint: Epigastric pain Impression: 48 year old F with a history of bipolar disorder, hypertension, lap leena, and GERD with paraesophageal hernia s/p laparoscopic hiatal hernia repair with yefri fundoplication in 2012. She presents with two years of constant epigastric pain exacerbated by eating and drinking. CT scan without any evidence of recurrent hernia or slipped wrap. Upper GI possibly with a slipped cardia. Plan: EGD to determine if cardia is slipped through the wrap SIGNATURE: Rachana Pham MD DATE of SERVICE: 06/25/2023 TIME of SERVICE: 2:52 PM HPI: Tasneem Camarillo is a 48 year old white female referred by self for an opinion regarding management of epigastric pain. She is currently symptomatic. 48 year old F with a history of bipolar disorder, hypertension, lap leena and GERD with paraesophageal hernia s/p laparoscopic hiatal hernia repair with yefri fundoplication in 2012. She presents with two years of constant epigastric pain exacerbated by eating and drinking. She states that this pain is associated with bloating and the pain radiates across her abdomen. She has undergone CT scan, MRCP, and upper gi. CT scan without any evidence of recurrent hernia or slipped wrap. Upper GI possibly with a slipped cardia. MRCP without any significant notable findings. (document at least 4 of these elements) Location: upper Quality: throbbing, achy, and radiating Severity: moderate Duration: two years ECOG Score: 0 Living arrangement: Lives with family/friend Functional status: Independent Unintentional weight loss over last 3 months: No PAST MEDICAL HISTORY Diagnosis Date Anxiety state Bipolar 1 disorder (HCC) Chronic pain GERD (gastroesophageal reflux disease) Hypothyroidism ra History reviewed. No pertinent surgical history. History reviewed. No pertinent family history. Social History Tobacco Use Smoking status: Never Smokeless tobacco: Never ALLERGIES Allergen Reactions Metoclopramide Other: See Comments, Hives, GI Upset, Unknown Palpitations Sulfa (Sulfonamide * Hives, GI Upset, Other: See Comments, Unknown Sumatriptan Other: See Comments, Unknown, Rash Amoxicillin Rash Asbestos Exposure No PHYSICAL EXAM BP (!) 94/46 Pulse (!) 58 Temp 36.3 C (97.4 F) (Oral) Resp 14 Ht 157.5 cm (5' 2 ) Wt 63.4 kg (139 lb 12.8 oz) SpO2 98% BMI 25.57 kg/m Neck: supple Resp: Clear Cardiovascular: rrr GI: soft ttp in subxiphoid region, nondistended Neurological/Psychiatric: Oriented to time, place & person Additional relevant findings: DATA: Radiology: CT CHEST WO IVCON Result Date: 06/25/2023 * * *Final Report* * * DATE OF EXAM: Jun 25 2023 12:26PM [facility] [place] 0541 - CT CHEST WO IVCON / PROCEDURE REASON: Epigastric abdominal pain * * * * Physician Interpretation * * * * EXAMINATION: CHEST CT WITHOUT CONTRAST CLINICAL HISTORY: Epigastric abdominal pain Technique: Spiral CT acquisition of the chest from the thoracic inlet to the upper abdomen without contrast. MQ: [id number] CT Radiation dose: Integrated Dose-length product (DLP) for this visit = 177 mGy*cm CT Dose Reduction Employed: Automated exposure control(AEC) and iterative recon Comparison: None. RESULT: Limitations: None. Lines, tubes, and devices: None. Lung parenchyma and airways: Interval left lung base, there is a focus of peribronchial consolidation measuring approximately 2.3 cm around image 129. Scattered small lung nodules are present in both lungs all measuring <6 mm. Examples include: Left lower lobe 0.3 cm nodule on image 121. Right lower lobe 0.2 cm nodule on image 117. Lingula, 0.3 to 0.2 cm subpleural nodules on images 112 and 114. There is mild bilateral apical scarring. The central airways are patent. Pleural space: No pleural effusion. No pleural thickening. Lower neck, lymph nodes, and mediastinum: The imaged thyroid gland is normal. No lymphadenopathy in the supraclavicular, axillary, mediastinal, or hilar regions. Heart, pericardium, and thoracic vessels: The thoracic aorta and main pulmonary artery are normal in caliber. The cardiac chambers are normal in size. No coronary artery atherosclerotic calcifications are noted, although the study is not optimized for coronary assessment. No pericardial effusion or thickening. Bones and soft tissues: No destructive bone lesion. Chest wall is unremarkable. Upper abdomen: Prior cholecystectomy. Localizer images: No additional findings. IMPRESSION: 1. Left lung base peribronchial nodular opacity probably represents a focus of infection. Comparison any previous imaging if available would be helpful. Consider short-term follow-up in 6-8 weeks for resolution. 2. Scattered small 2 to 3 mm nodules in both lungs are of doubtful clinical significance. Incidental Finding: Follow-up Acuity: Incidental Finding: Solid: >8 but <15 mm Routing Code: RI_1 Recommendation: Consult to [facility] - [id number] Time Frame: at the discretion of the clinical team. Comments: Follow-up for this incidentally detected lung nodule with PET/CT or Biopsy within 4 weeks, or Chest CT exam in 3 months is recommended. --END OF FINDING-- Press Shop Supervisor: TARYN Transcribe Date/Time: Jun 25 2023 12:38P Dictated by : TALYA MCCORMACK MD This examination was interpreted and the report reviewed and electronically signed by: TALYA MCCORMACK MD on Jun 25 2023 12:44PM EST I have personally reviewed the following images/data: CT scan, upper GI Outside Paper Medical Records Review personally performed by: documented in this encounter [facility] 07-22-2023 Note HNO ID: [id number] Author: ?, ?, ? Service: ? Author Type: ? Type: Progress Notes Filed: 07/22/2023 14:09 Note Text: Incidental Lung Nodule Enrollment Outreach attempt: 3rd Attempt Outreach status: Complete Enrolled in Lung Nodule program: No Declined reason: Other [place] [facility] [place] History of Presen t illness Narrative Incidental Lung Nodule Enrollment Outreach attempt: 3rd Attempt Outreach status: Complete Enrolled in Lung Nodule program: No Declined reason: Other Lung Nodule Program Location: [place] documented in this encounter [facility] 07-22-2023 Note Patient Outreach (PU LMMN) TASNEEM CAMARILLO ([id number]) 1975 F Date Time Provider Department 07/22/23 JOSEPHINE CULVER During your visit today, we recorded the following information about you: Josephine Culver 07/22/2023 2:09 PM Signed Incidental Lung Nodule Enrollment Outreach attempt: 3rd Attempt Outreach status: Complete Enrolled in Lung Nodule program: No Declined reason: Other Lung Nodule Program Location: [place] Allergies As of Date: 07/22/2023 Noted Allergy Reaction METOCLOPRAMIDE 01/03/2016 14 - Other: See Comments 4 - Hives 8 - GI Upset 16 - Unknown Comments: Palpitations SULFA (SULFONAMIDE ANTIBIOTICS) 01/03/2016 4 - Hives 8 - GI Upset 14 - Other: See Comments 16 - Unknown SUMATRIPTAN 12/28/2020 14 - Other: See Comments 16 - Unknown 2 - Rash AMOXICILLIN 03/14/2023 2 - Rash Date Reviewed: 07/02/2023 Reviewed by: Keri Johnson MA - Fully Assessed Prescriptions as of 07/22/2023 - atenolol-chlorthalidone (TENORETIC) 50-25 mg per tablet Take 1 tablet by mouth once daily. - acetaminophen 325 mg-caffeine 40 mg-butalbital 50 mg (FIORICET) per tablet Take 1 tablet by mouth every 4 hours as needed. - esomeprazole (NEXIUM) 40 mg capsule Take 1 capsule by mouth every afternoon. - famotidine (PEPCID) 20 mg tablet Take 20 mg by mouth two times a day. - hydrOXYzine pamoate (VISTARIL) 25 mg capsule Take 25 mg by mouth three times a day as needed. - lamoTRIgine (LAMICTAL) 200 mg tablet Take 200 mg by mouth two times a day. - ondansetron orally disintegrating (ZOFRAN ODT) 4 mg disintegrating tablet Take 4 mg by mouth every 8 hours as needed. - oxaprozin (DAYPRO) 600 mg tablet Take 600 mg by mouth two times a day. - oxyCODONE-acetaminophen (PERCOCET) 5-325 mg tablet Take 1-2 tablets by mouth every 6 hours as needed. - PARoxetine (PAXIL) 30 mg tablet Take 60 mg by mouth once daily. - pregabalin (LYRICA) 150 mg capsule Take 1 tablet by mouth once daily. - tiZANidine HCl (ZANAFLEX) 4 mg capsule Take 4 mg by mouth three times a day. - enteric contrast (will be provided with radiology test) For CT Chest Abdomen WO order Administer, As Directed One Time Only, via Oral, Rectal, both Oral and Rectal, Enteric Tube, Stoma or Indwelling Catheter, Enteric Contrast as designated per enteric contrast guidelines Problem List As Of Date 07/22/2023 Noted Resolved Gastroesophageal reflux disease without esophag*04/07/2023 Hypothyroidism [E03.9] 06/10/2022 Nausea [R11.0] 09/20/2021 S/P Yefri fundoplication (without gastrostomy *07/02/2023 HTN (hypertension) [I10] 07/02/2023 Letter Text Encounter Status:Closed by JOSEPHINE CULVER on 07/22/23 [facility] 07-10-2023 Note Patient Outreach (PU LMMN) TASNEEM CAMARILLO ([id number]) 1975 F Date Time Provider Department 07/10/23 JOSEPHINE CULVER During your visit today, we recorded the following information about you: Josephine Culver 07/10/2023 9:04 AM Signed Incidental Lung Nodule Enrollment Outreach attempt: 2nd Attempt Outreach status: Complete Enrolled in Lung Nodule program: Referred Lung Nodule outreach: Needs outreach Lung Nodule Program Location: [place] Two letter attempts Allergies As of Date: 07/10/2023 Noted Allergy Reaction METOCLOPRAMIDE 01/03/2016 14 - Other: See Comments 4 - Hives 8 - GI Upset 16 - Unknown Comments: Palpitations SULFA (SULFONAMIDE ANTIBIOTICS) 01/03/2016 4 - Hives 8 - GI Upset 14 - Other: See Comments 16 - Unknown SUMATRIPTAN 12/28/2020 14 - Other: See Comments 16 - Unknown 2 - Rash AMOXICILLIN 03/14/2023 2 - Rash Date Reviewed: 07/02/2023 Reviewed by: Keri Johnson MA - Fully Assessed Prescriptions as of 07/10/2023 - atenolol-chlorthalidone (TENORETIC) 50-25 mg per tablet Take 1 tablet by mouth once daily. - acetaminophen 325 mg-caffeine 40 mg-butalbital 50 mg (FIORICET) per tablet Take 1 tablet by mouth every 4 hours as needed. - esomeprazole (NEXIUM) 40 mg capsule Take 1 capsule by mouth every afternoon. - famotidine (PEPCID) 20 mg tablet Take 20 mg by mouth two times a day. - hydrOXYzine pamoate (VISTARIL) 25 mg capsule Take 25 mg by mouth three times a day as needed. - lamoTRIgine (LAMICTAL) 200 mg tablet Take 200 mg by mouth two times a day. - ondansetron orally disintegrating (ZOFRAN ODT) 4 mg disintegrating tablet Take 4 mg by mouth every 8 hours as needed. - oxaprozin (DAYPRO) 600 mg tablet Take 600 mg by mouth two times a day. - oxyCODONE-acetaminophen (PERCOCET) 5-325 mg tablet Take 1-2 tablets by mouth every 6 hours as needed. - PARoxetine (PAXIL) 30 mg tablet Take 60 mg by mouth once daily. - pregabalin (LYRICA) 150 mg capsule Take 1 tablet by mouth once daily. - tiZANidine HCl (ZANAFLEX) 4 mg capsule Take 4 mg by mouth three times a day. - enteric contrast (will be provided with radiology test) For CT Chest Abdomen WO order Administer, As Directed One Time Only, via Oral, Rectal, both Oral and Rectal, Enteric Tube, Stoma or Indwelling Catheter, Enteric Contrast as designated per enteric contrast guidelines Problem List As Of Date 07/10/2023 Noted Resolved Gastroesophageal reflux disease without esophag*04/07/2023 Hypothyroidism [E03.9] 06/10/2022 Nausea [R11.0] 09/20/2021 S/P Yefri fundoplication (without gastrostomy *07/02/2023 HTN (hypertension) [I10] 07/02/2023 Letter Text Letter Text Encounter Status:Closed by JOSEPHINE CULVER on 07/10/23 [facility] 07-10-2023 Note HNO ID: [id number] Author: ?, ?, ? Service: ? Author Type: ? Type: Progress Notes Filed: 07/10/2023 09:04 Note Text: Incidental Lung Nodule Enrollment Outreach attempt: 2nd Attempt Outreach status: Complete Enrolled in Lung Nodule program: Referred Lung Nodule outreach: Needs outreach Lung Nodule Program Location: [place] Two letter attempts [facility] 07-10-2023 History of Presen t illness Narrative Incidental Lung Nodule Enrollment Outreach attempt: 2nd Attempt Outreach status: Complete Enrolled in Lung Nodule program: Referred Lung Nodule outreach: Needs outreach Lung Nodule Program Location: [place] Two letter attempts documented in this encounter [facility] 07-02-2023 Note HNO ID: [id number] Author: MALIA MEADOWS PA-C Service: ? Author Type: [facility] Consultant Type: Progress Notes Filed: 07/02/2023 15:44 Note Text: Incidental Lung Nodule Enrollment Outreach attempt: 1st Attempt Outreach status: Left message Enrolled in Lung Nodule program: Referred Lung Nodule outreach: Needs outreach Lung Nodule Program Location: [place] Left Message to call back to schedule. Big nodule letter sent. Malia Meadows PA-C [facility] 07-02-2023 History of Presen t illness Narrative Incidental Lung Nodule Enrollment Outreach attempt: 1st Attempt Outreach status: Left message Enrolled in Lung Nodule program: Referred Lung Nodule outreach: Needs outreach Lung Nodule Program Location: [place] Left Message to call back to schedule. Big nodule letter sent. Malia Meadows PA-C documented in this encounter [facility] 07-02-2023 Note HNO ID: [id number] Author: AIDEE VILLAVICENCIO APRN.CNP Service: ? Author Type: Nurse Practitioner Type: Progress Notes Filed: 07/02/2023 12:46 Note Text: [facility] - OUTPATIENT THORACIC SURGERY CLINIC NOTE PT NAME: Tasneem Camarillo [facility] NO: [id number] THORACIC SURGEON: Nicanor Ferris M.D. DATE OF SERVICE: July 02, 2023 PRINCIPAL DX: Epigastric pain SURGICAL HX: NONE - Thoracic REASON FOR VISIT: Follow up after tests, visit to finalize surgical treatment plan HPI: Tasneem Camarillo is a 48 year old female with a history of bipolar disorder, hypertension, lap leena and GERD with paraesophageal hernia s/p laparoscopic hiatal hernia repair with yefri fundoplication in 2012. She presents with two years of constant epigastric pain exacerbated by eating and drinking. She states that this pain is associated with bloating and the pain radiates across her abdomen. She has undergone CT scan, MRCP, and upper GI. CT scan without any evidence of recurrent hernia or slipped wrap. Upper GI possibly with a slipped cardia. MRCP without any significant notable findings. PHYSICAL EXAM: VITAL SIGNS: BP 102/61 Pulse (!) 53 Temp 36.6 ?C (97.8 ?F) (Oral) Ht 157.5 cm (5' 2 ) Wt 63.9 kg (140 lb 14.4 oz) SpO2 100% BMI 25.77 kg/m? Room air GENERAL: well appearing, alert, no acute distress, well-hydrated, well nourished HEENT: normocephalic, midline, anicteric sclera. EXTREMITIES: No clubbing, cyanosis or edema. MUSCULOSKELETAL: Muscular strength intact. SKIN: turgor normal, no suspicious rashes or lesions NEURO: Gait normal. Sensation grossly intact. IMAGING/TESTS: EGD 07/02/2023 - Dr. Nicanor Ferris Impression: - Tortuous esophagus. - Abnormal esophageal motility, suspicious for esophageal spasm. Biopsied. - Gastritis. Biopsied. - No gross lesions in the entire examined duodenum. INTERVAL HISTORY: Tasneem Camarillo is seen today following an EGD with Dr. Ferris. She reports epigastric pain exacerbated by eating and drinking. She notes that the pain happens regardless of diet modifications. Has nausea without vomiting. Regular bowel movements. EGD today showed gastritis and tortuous esophagus. Biopsies taken. Return as needed. Medically manage with PPI. Patients states understanding and all questions were answered to satisfaction; will call if new or worsening symptoms occur or if any additional questions arise. IMPRESSION: 48 year old year old female with a history of bipolar disorder, hypertension, lap leena, and GERD with paraesophageal hernia s/p laparoscopic hiatal hernia repair with yefri fundoplication in 2012. She presents with two years of constant epigastric pain exacerbated by eating and drinking. No surgical intervention needed. Medically manage with PPI PLAN: - Await pathology - Carafate QID - Nexium PPI - Return as needed - Local GI for symptom management Aidee Villavicencio APRN.[facility] 07-02-2023 Note Patient Outreach (PM NA11) TASNEEM CAMARILLO ([id number]) 1975 F Date Time Provider Department 07/02/23 MALIA MEADOWS PMNA11 During your visit today, we recorded the following information about you: Malia Meadows PA-C 07/02/2023 3:44 PM Signed Incidental Lung Nodule Enrollment Outreach attempt: 1st Attempt Outreach status: Left message Enrolled in Lung Nodule program: Referred Lung Nodule outreach: Needs outreach Lung Nodule Program Location: [place] Left Message to call back to schedule. Big nodule letter sent. Malia Meadows PA-C Allergies As of Date: 07/02/2023 Noted Allergy Reaction METOCLOPRAMIDE 01/03/2016 14 - Other: See Comments 4 - Hives 8 - GI Upset 16 - Unknown Comments: Palpitations SULFA (SULFONAMIDE ANTIBIOTICS) 01/03/2016 4 - Hives 8 - GI Upset 14 - Other: See Comments 16 - Unknown SUMATRIPTAN 12/28/2020 14 - Other: See Comments 16 - Unknown 2 - Rash AMOXICILLIN 03/14/2023 2 - Rash Date Reviewed: 07/02/2023 Reviewed by: Keri Johnson MA - Fully Assessed Prescriptions as of 07/02/2023 - atenolol-chlorthalidone (TENORETIC) 50-25 mg per tablet Take 1 tablet by mouth once daily. - acetaminophen 325 mg-caffeine 40 mg-butalbital 50 mg (FIORICET) per tablet Take 1 tablet by mouth every 4 hours as needed. - esomeprazole (NEXIUM) 40 mg capsule Take 1 capsule by mouth every afternoon. - famotidine (PEPCID) 20 mg tablet Take 20 mg by mouth two times a day. - hydrOXYzine pamoate (VISTARIL) 25 mg capsule Take 25 mg by mouth three times a day as needed. - lamoTRIgine (LAMICTAL) 200 mg tablet Take 200 mg by mouth two times a day. - ondansetron orally disintegrating (ZOFRAN ODT) 4 mg disintegrating tablet Take 4 mg by mouth every 8 hours as needed. - oxaprozin (DAYPRO) 600 mg tablet Take 600 mg by mouth two times a day. - oxyCODONE-acetaminophen (PERCOCET) 5-325 mg tablet Take 1-2 tablets by mouth every 6 hours as needed. - PARoxetine (PAXIL) 30 mg tablet Take 60 mg by mouth once daily. - pregabalin (LYRICA) 150 mg capsule Take 1 tablet by mouth once daily. - tiZANidine HCl (ZANAFLEX) 4 mg capsule Take 4 mg by mouth three times a day. - enteric contrast (will be provided with radiology test) For CT Chest Abdomen WO order Administer, As Directed One Time Only, via Oral, Rectal, both Oral and Rectal, Enteric Tube, Stoma or Indwelling Catheter, Enteric Contrast as designated per enteric contrast guidelines Facility-Administered Medications as of 07/02/2023 - lidocaine (PF) 10 mg/mL (1 %) 1-2 mg injection (XYLOCAINE) Problem List As Of Date 07/02/2023 Noted Resolved Gastroesophageal reflux disease without esophag*04/07/2023 Hypothyroidism [E03.9] 06/10/2022 Nausea [R11.0] 09/20/2021 S/P Yefri fundoplication (without gastrostomy *07/02/2023 HTN (hypertension) [I10] 07/02/2023 Letter Text Letter Text Encounter Status:Closed by MALIA MEADOWS on 07/02/23 [facility] 07-02-2023 History of Presen t illness Narrative [facility] - OUTPATIENT THORACIC SURGERY CLINIC NOTE PT NAME: Tasneem Camarillo [facility] NO: [id number] THORACIC SURGEON: Nicanor Ferris M.D. DATE OF SERVICE: July 02, 2023 PRINCIPAL DX: Epigastric pain SURGICAL HX: NONE - Thoracic REASON FOR VISIT: Follow up after tests, visit to finalize surgical treatment plan HPI: Tasneem Camarillo is a 48 year old female with a history of bipolar disorder, hypertension, lap leena and GERD with paraesophageal hernia s/p laparoscopic hiatal hernia repair with yefri fundoplication in 2012. She presents with two years of constant epigastric pain exacerbated by eating and drinking. She states that this pain is associated with bloating and the pain radiates across her abdomen. She has undergone CT scan, MRCP, and upper GI. CT scan without any evidence of recurrent hernia or slipped wrap. Upper GI possibly with a slipped cardia. MRCP without any significant notable findings. PHYSICAL EXAM: VITAL SIGNS: BP 102/61 Pulse (!) 53 Temp 36.6 C (97.8 F) (Oral) Ht 157.5 cm (5' 2 ) Wt 63.9 kg (140 lb 14.4 oz) SpO2 100% BMI 25.77 kg/m Room air GENERAL: well appearing, alert, no acute distress, well-hydrated, well nourished HEENT: normocephalic, midline, anicteric sclera. EXTREMITIES: No clubbing, cyanosis or edema. MUSCULOSKELETAL: Muscular strength intact. SKIN: turgor normal, no suspicious rashes or lesions NEURO: Gait normal. Sensation grossly intact. IMAGING/TESTS: EGD 07/02/2023 - Dr. Nicanor Ferris Impression: - Tortuous esophagus. - Abnormal esophageal motility, suspicious for esophageal spasm. Biopsied. - Gastritis. Biopsied. - No gross lesions in the entire examined duodenum. INTERVAL HISTORY: Tasneem Camarillo is seen today following an EGD with Dr. Ferris. She reports epigastric pain exacerbated by eating and drinking. She notes that the pain happens regardless of diet modifications. Has nausea without vomiting. Regular bowel movements. EGD today showed gastritis and tortuous esophagus. Biopsies taken. Return as needed. Medically manage with PPI. Patients states understanding and all questions were answered to satisfaction; will call if new or worsening symptoms occur or if any additional questions arise. IMPRESSION: 48 year old year old female with a history of bipolar disorder, hypertension, lap leena, and GERD with paraesophageal hernia s/p laparoscopic hiatal hernia repair with yefri fundoplication in 2012. She presents with two years of constant epigastric pain exacerbated by eating and drinking. No surgical intervention needed. Medically manage with PPI PLAN: - Await pathology - Carafate QID - Nexium PPI - Return as needed - Local GI for symptom management Aidee Villavicencio APRN.[employer] TEACHER documented in this encounter [facility] 07-02-2023 Note Q3 Patient Name: Tasneem Camarillo Procedure Date: 07/02/2023 8:43 AM Date of : 1975 Admit Type: Outpatient Age: 48 Gender: Female Note Status: Finalized Attending MD: Nicanor Ferris MD, [id number] Procedure: Upper GI endoscopy Indications: Dysphagia Providers: Nicanor Ferris MD Patient Profile: This is a 48 year old female. Refer to note in patient chart for documentation of history and physical. Referring Physician: Nicanor Ferris MD (Referring MD) Medicines: Monitored Anesthesia Care Complications: No immediate complications. Requesting Provider: Procedure: Pre-Anesthesia Assessment: - Prior to the procedure, a History and Physical was performed, and patient medications and allergies were reviewed. The patient is competent. The risks and benefits of the procedure and the sedation options and risks were discussed with the patient. All questions were answered and informed consent was obtained. Patient identification and proposed procedure were verified by the physician and the nurse in the endoscopy suite. Mental Status Examination: alert and oriented. Airway Examination: normal oropharyngeal airway and neck mobility. Respiratory Examination: clear to auscultation. CV Examination: normal. ASA Grade Assessment: II - A patient with mild systemic disease. After reviewing the risks and benefits, the patient was deemed in satisfactory condition to undergo the procedure. The anesthesia plan was to use monitored anesthesia care (MAC). Immediately prior to administration of medications, the patient was re-assessed for adequacy to receive sedatives. The heart rate, respiratory rate, oxygen saturations, blood pressure, adequacy of pulmonary ventilation, and response to care were monitored throughout the procedure. The physical status of the patient was re-assessed after the procedure. After obtaining informed consent, the endoscope was passed under direct vision. Throughout the procedure, the patient's blood pressure, pulse, and oxygen saturations were monitored continuously. The Endoscope was introduced through the mouth, and advanced to the second part of duodenum. The upper GI endoscopy was accomplished without difficulty. The patient tolerated the procedure well. Moderate Sedation: See the other procedure note for documentation of moderate sedation with intraservice time. MAC anesthesia was administered by the anesthesia team. Findings: The lower third of the esophagus was mildly tortuous. Biopsy taken for EoE from 25cms and 32 cms from the incisors. GEJ at 34 cms from the incisors. No obvious slipped wrap noted. Abnormal motility was noted in the esophagus. The cricopharyngeus was normal. There is spasticity of the esophageal body. The distal esophagus/lower esophageal sphincter is open. Biopsies were taken with a cold forceps for histology. Biopsies were taken with a cold forceps for histology. Estimated blood loss was minimal. Localized mild inflammation characterized by congestion (edema) was found in the gastric antrum/pre-pyloric stomach. Biopsies were taken with a cold forceps for histology. Verification of patient identification for the specimen was done by the physician and nurse using the patient's name and date. Estimated blood loss was minimal. No gross lesions were noted in the entire examined duodenum. Impression: - Tortuous esophagus. - Abnormal esophageal motility, suspicious for esophageal spasm. Biopsied. - Gastritis. Biopsied. - No gross lesions in the entire examined duodenum. Estimated Blood Loss: Estimated blood loss was minimal. Recommendation: - Discharge patient to home (ambulatory). - Resume previous diet. - Continue present medications. - Await pathology results. - Patient has a contact number available for emergencies. The signs and symptoms of potential delayed complications were discussed with the patient. Return to normal activities tomorrow. Written discharge instructions were provided to the patient. Procedure Code(s): --- Professional --- 21704, Esophagogastroduodenoscopy, flexible, transoral; with biopsy, single or multiple Diagnosis Code(s): --- Professional --- Q39.9, Congenital malformation of esophagus, unspecified K22.4, Dyskinesia of esophagus K29.70, Gastritis, unspecified, without bleeding R13.10, Dysphagia, unspecified CPT copyright 2020 [employer]. All rights reserved. Attending Participation: I personally performed the entire procedure without the assistance of a fellow, resident or surgical elastic knitter. Scope In: 8:57:06 AM Scope Out: 9:06:50 AM MD Nicanor Purdy MD 07/02/2023 9:13:36 AM This report has been signed electronically by Nicanor Ferris MD Number of Addenda: 0 Note Initiated On: 07/02/2023 8:43 AM [facility] 07-02-2023 Nurse Note AMBULATORY PATIENT EDUCATION NOTE TOPIC: GI PROCEDURES: Esophagogastroduodenoscopy(EGD) with or without biopies based on clinical findings, removal of polyps or lesions READINESS TO LEARN INSTRUCTION PROVIDED TO: Patient, readness to learn accessed prior to procedure COGNITIVE ABILITY: Alert and oriented PTED MOTIVATION TO LEARN: Eager FAMILY SUPPORT: High - Very involved in pt care IPATIENT LEARNS BEST BY: Individual Instruction FACTORS AFFECTING LEARNING: None PHYSICAL LIMITATIONS AFFECTING LEARNING: None LEARNING RESPONSE METHOD OF INSTRUCTION: Individual instruction PATIENT / FAMILY RESPONSE: Verbalizes understanding of: WORSENING CONDITION-Signs and symptoms of a worsening condition that warrant a call to the physician FOLLOW-UP PLAN: Patient instructed to call with any further issues SUPPLEMENTAL MATERIAL: Procedure Discharge Instructions REFERRAL (RECOMMENDATION): None [facility] 07-02-2023 Nurse Note AMBULATORY PATIENT EDUCATION NOTE TOPIC: GI PROCEDURES: Esophagogastroduodenoscopy(EGD) with or without biopies based on clinical findings, removal of polyps or lesions READINESS TO LEARN INSTRUCTION PROVIDED TO: Patient, readness to learn accessed prior to procedure COGNITIVE ABILITY: Alert and oriented PTED MOTIVATION TO LEARN: Eager FAMILY SUPPORT: High - Very involved in pt care IPATIENT LEARNS BEST BY: Individual Instruction FACTORS AFFECTING LEARNING: None PHYSICAL LIMITATIONS AFFECTING LEARNING: None LEARNING RESPONSE METHOD OF INSTRUCTION: Individual instruction PATIENT / FAMILY RESPONSE: Verbalizes understanding of: WORSENING CONDITION-Signs and symptoms of a worsening condition that warrant a call to the physician FOLLOW-UP PLAN: Patient instructed to call with any further issues SUPPLEMENTAL MATERIAL: Procedure Discharge Instructions REFERRAL (RECOMMENDATION): None PRE OP LEARNING ASSESSMENT PROCEDURE/SURGERY: GI PROCEDURES: EGD READINESS TO LEARN COGNITIVE ABILITY: Alert and oriented MOTIVATION TO LEARN: Interested FAMILY SUPPORT: High - Very involved in pt care PATIENT LEARNS BEST BY: Individual Instruction Verbal Instruction FACTORS AFFECTING LEARNING: None PHYSICAL LIMITATIONS AFFECTING LEARNING: Limited Mobility Electronically Signed By: Taty Sheridan ROLLER SKATE ASSEMBLER In Department: GASTROENTEROLOGY 0812: Dr. Madeline Jarrell paged: Patient Tasneem Camarillo in pre bed 16: Patient states she is US only IV access. Are you able to help me obtain IV access? Thanks! Casandra 7530: Dr. Jarrell paged: Patient Tasneem Camarillo in pre bed 16: Patient ready for US IV access, thanks! Casandra Sheridan ROLLER SKATE ASSEMBLER documented in this encounter [facility] 07-02-2023 Note Q3 Patient Name: Tasneem Camarillo Procedure Date: 07/02/2023 8:43 AM Date of : 1975 Admit Type: Outpatient Age: 48 Gender: Female Note Status: Finalized Attending MD: Nicanor Ferris MD, [id number] Procedure: Upper GI endoscopy Indications: Dysphagia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 may occur, including: ? Bleeding. ? Damage to your intestine. ? Allergic reactions to medicines given during the procedure. ? Infection. This is rare. What happens before the procedure? Eating and drinking restrictions Follow instructions from your health care provider about eating or drinking restrictions, which may include: ? A few days before the procedure: ? Follow a low-fiber diet. ? Avoid nuts, seeds, dried fruit, raw fruits, and vegetables. ? 1?3 days before the procedure: ? Eat only gelatin dessert or ice pops. ? Drink only clear liquids, such as water, clear juice, clear broth or bouillon, black coffee or tea, or clear soft drinks or sports drinks. ? Avoid liquids that contain red or purple dye. ? The day of the procedure: ? Do not eat solid foods. You may continue to drink clear liquids until up to 2 hours before the procedure. ? Do not eat or drink anything starting 2 hours before the procedure, or within the time period that your health care provider recommends. Bowel prep If you were prescribed a bowel prep to take by mouth (orally) to clean out your colon: ? Take it as told by your health care provider. Starting the day before your procedure, you will need to drink a large amount of liquid medicine. The liquid will cause you to have many bowel movements of loose stool until your stool becomes almost clear or light green. ? If your skin or the opening between the buttocks (anus) gets irritated from diarrhea, you may relieve the irritation using: ? Wipes with medicine in them, such as adult wet wipes with aloe and vitamin E. ? A product to soothe skin, such as petroleum jelly. ? If you vomit while drinking the bowel prep: ? Take a break for up to 60 minutes. ? Begin the bowel prep again. ? Call your health care provider if you keep vomiting or you cannot take the bowel prep without vomiting. ? To clean out your colon, you may also be given: ? Laxative medicines. These help you have a bowel movement. ? Instructions for enema use. An enema is liquid medicine injected into your rectum. Medicines Ask your health care provider about: ? Changing or stopping your regular medicines or supplements. This is especially important if you are taking iron supplements, diabetes medicines, or blood thinners. ? Taking medicines such as aspirin and ibuprofen. These medicines can thin your blood. Do not take these medicines unless your health care provider tells you to take them. ? Taking [id number] medicines, vitamins, herbs, and supplements. General instructions ? Ask your health care provider what steps will be taken to help prevent infection. These may include washing skin with a germ-killing soap. ? If you will be going home right after the procedure, plan to have a responsible adult: ? Take you home from the hospital or clinic. You will not be allowed to drive. ? Care for you for the time you are told. What happens during the procedure? ? An IV will be inserted into one of your veins. ? You will be given a medicine to make you fall asleep (general anesthetic). ? You will lie on your side with your knees bent. ? A lubricant will be put on the tube. Then the tube will be: ? Inserted into your anus. ? Gently eased through all parts of your large intestine. ? Air will be sent into your colon to keep it open. This may cause some pressure or cramping. ? Images will be taken with the camera and will appear on a screen. ? A small tissue sample may be removed to be looked at under a microscope (biopsy). The tissue may be sent to a lab for testing if any signs of problems are found. ? If small polyps are found, they may be removed and checked for cancer cells. (more content not included)... [facility] 10-31-2021 Note PROCEDURE: XR FINGER MIN 2 VIEWS HISTORY: Pain ; fifth digit dislocation; post reduction COMPARISON: None. FINDINGS: BONES:Reduction of the fifth digit at the proximal interphalangeal joint. Avulsed proximal anterior corner of the middle phalanx with retraction and the fragment lying anterior to the head of the proximal phalanx. SOFT TISSUES:Soft tissue swelling of fifth digit. EFFUSION:None visible. OTHER: Negative. IMPRESSION: 1. Successful reduction of right hand fifth digit dislocation. 2. Avulsed, proximally retracted anterior corner fracture of the fifth middle phalanx. Electronically authenticated by: JUAN M SARGENT Date: 2021-10-31 15:15 [facility] 10-31-2021 Note PROCEDURE: XR FINGER MIN 2 VIEWS HISTORY: Pain in finger of right hand ; right hand fifth digit pain following injury COMPARISON: None. FINDINGS: BONES:Posterior dislocation of the fifth middle phalanx in relation to the proximal phalanx and suspected small fracture fragment anterior to the head of the fifth proximal phalanx. SOFT TISSUES:Soft tissue swelling of fifth digit. EFFUSION:None visible. OTHER: Negative. IMPRESSION: 1. Posterior dislocation of the fifth digit at the proximal interphalangeal joint. 2. Suspect small cortical fracture fragment anterior to the head of the fifth proximal phalanx. This could also represent a foreign body within the overlapping fourth digit soft tissue. Follow-up imaging is recommended. Electronically authenticated by: JUAN M SARGENT Date: 2021-10-31 13:08 [facility] 10-18-2021 Note CONSULTATION CONSULTATION DATE: 10/18/2021 HISTORY OF PRESENT ILLNESS: This is a 46-year-old female returning to the clinic status post #1 bilateral MBB of L2, L3 and L4, L5 completed on 10/02/2021. Since that procedure, patient has experienced severe abdominal pain, has had a colonoscopy on 10/17/2021 and was found to have a spastic colon. She has been referred to Gastroenterology. Due to that new development, patient is unable to decipher, at this time, whether she obtained back relief from the injections. At this time, the patient wishes to hold off on any further back procedures until her abdominal pain and spastic colon have been worked up properly and there is a plan of care for that. Current medications include tramadol 50 mg b.i.d., which she is currently out of, Lyrica, Fioricet, Lamictal and BuSpar. She is also on tizanidine 4 mg q.p.m. as well. Patient feels she gets the best relief from the tizanidine. Activities such as twisting, pushing, pulling, trimming, housework aggravate her pain. Heat and ice alternating decrease her pain. Patient's REVIEW OF SYSTEMS / PAST MEDICAL HISTORY / ALLERGIES and IMAGES have been reviewed and they are noted on the chart. PHYSICAL EXAM: VITAL SIGNS: Blood pressure 114/78, heart rate is 64. Temperature is 97.5. She is 62 tall and weighs 56.3 kg. GENERAL APPEARANCE: Pleasant, appropriate, in moderate distress sitting in the chair. Patient sitting with her arm crossed. present. FOCUSED EXAM: Patient deferred physical exam at this time due to her level of pain. She states everything hurts and prefers just to have dialog in the exam room. Upon standing and observation, patient has decreased range of motion in lateral rotation and flexion/extension positions. Due to abdominal pain during those motions, patient did sit down. MUSCULOSKELETAL: Patient does ambulate without an assistive device, has mild diffuse lower extremity muscle atrophy. NEUROLOGICALLY: Coordination is adequate. Patellar reflexes are +2 bilaterally. IMPRESSION: Lumbar degenerative disc disease, lumbar spondylosis, spinal axial lower back pain, abdominal pain. PLAN: We will change her tramadol to Percocet 5/325 daily. I did recommend the patient break the pill in half and divide it into two doses. At this time, we will, per the patient request, hold off on all back procedures for now. It was explained to the patient that she is welcome to call us prior to her next three month appointment, if she feels she would like to proceed at any time before that. Patient acknowledges understanding and agrees with the plan of care. [facility] 09-06-2021 Note CONSULTATION CONSULTATION DATE: 09/06/2021 This is a pleasant 46-year-old female returning to the clinic status post lumbar epidural steroid injection on 08/21/2021. The patient states she received no relief and no change in symptoms whatsoever. Today her pain is 7 out of 10 today, described as sharp, throbbing and stabbing. All physical activity aggravates her pain and it is difficult for her to get comfortable. She does use heat in the evening which is helpful. She has a massage chair pad she uses occasionally which is helpful as well. Current medications include Lyrica 150 mg q.h.s., Buspar, tizanidine 4 mg q.h.s., Tramadol 50 mg p.r.n. and Daypro. The patient does have chronic regional pain syndrome to her right leg from a prior trauma. The patient is complaining of lower lumbar spine, diffuse across the back which is worsening with activity. She is open to other procedures. She is compliant with her vitamins as well. She does have patchy hypesthesia to bilateral lower legs which is well controlled by the Lyrica. REVIEW OF SYSTEMS, PAST MEDICAL HISTORY, ALLERGIES AND IMAGES: Have been reviewed and noted in the chart. PHYSICAL EXAM: VITAL SIGNS: Blood pressure 141/82, heart rate is 91, temperature is 97.8. Height is 5'2 , weighs 59 kg. GENERAL APPEARANCE: Pleasant and appropriate, in no acute distress, although it is moderately uncomfortable sitting in the chair. FOCUSED EXAM: BACK: Range of motion is guarded in lateral rotation and flexion/extension. Perivertebral muscles are taut but non-spasmodic. Reproduction of spinoaxial pain noticed to direct compression along the posterior elements of the lumbar facets of L2, L3 and L4, L5. The patient has radiating pain to the lateral and anterior aspect of her left anterior thigh. MUSCULOSKELETAL: Motor is intact, 4 out of 5 bilaterally. The patient walks with an antalgic gait and does not use an assistive device. NEUROLOGICAL: Patchy hypesthesia, bilateral L3-L4 dermatomes, left greater than right. Plus 1 bilateral patellar and Achilles reflexes. DIAGNOSIS: Chronic regional pain syndrome, right lower extremity. Lumbar degenerative disk disease. Lumbar spondylosis and lumbar neuritis. PLAN: The patient was given a refill of her Tramadol 50 mg one p.o., p.r.n. We will authorize for #1 bilateral MBB of the L2, L3 and L4, L5. In reviewing her lumbar x-rays, confirming her pathology, noted with broad-based disk bulging L3- 4 and L5-S1. The patient agrees with this plan of care procedure and wishes to move ahead. I did encourage heat rub, stretching and heat application nightly. The patient is in agreement. She will be followed up in the clinic post procedure. [facility] Signed and Approved by: CHRISTIAN WINN . 09/13/2021 10:21:[address] [facility] 07-10-2021 Note PAIN MANAGEMENT CONS ULTATION CONSULTATION DATE: 07/10/2021 HISTORY OF PRESENT ILLNESS: The patient is a very pleasant, 46-year-old female who is referred to us by Dr. Pepper. The patient has had chronic low back pain, progressively getting worse, over the last year and a half to two years. The patient has been seen by neurosurgeon, Dr. Huizar, who feels the patient is not a surgical candidate. The patient has an MRI of her lumbar spine, which shows a migrating disc bulging herniation at the level of L3-L4 anterior to the anterior ligament. There is not a rupture of the disc. The patient describes the pain bilaterally in her low back, 7/10, an achy, throbbing sensation. Activities such as twisting, pushing, standing, walking, bending, climbing stairs aggravate the pain as does cold rain. 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 The patient currently takes Oxaprozin 600 mg b.i.d., Lamictal, buspirone 15 mg one and a half tablets, Lyrica 150 mg h.s., tramadol 50 mg t.i.d. as prescribed by Dr. Pepper and tizanidine is prescribed t.i.d.; however, takes it q.p.m., given the fact that she has difficulty staying awake. The patient has been treated in the past for complex regional pain syndrome by Dr. Sigala with ketamine infusion for her left ankle pain. The patient's MRI is noted on to the chart. PHYSICAL EXAM: GENERAL: Upon physical examination, this is a pleasant, cooperative female who does not appear to be in any acute distress. VITAL SIGNS: Stable at 123/79, with a heart rate of 60. At a height of 5'2 , the patient weighs 128 pounds. FOCUSED EVALUATION OF THE LUMBAR SPINE: Tenderness is noted along the L5-S1 facets bilaterally. However, non-physiological jump response is noted. No overt paravertebral spasming is present at this time. The patient has motor weakness along the L3 with give way noted on the left hand side compared to the right hand side. EXTREMITIES: No pedal edema is noted. MUSCULOSKELETAL: Intact in the lower extremities. Quality of the musculature is poor. NEUROLOGICALLY: Hypoesthesia is present along the L3-:L4 distribution on the left hand side. PSYCHIATRICALLY: Affect is appropriate. IMPRESSION: Current working diagnosis is L3-L4 neuritis/radiculitis, bulging disc L3-L4 migrating along the anterior ligament, chronic pain. PLAN: The patient has been seen by a neurosurgeon in the past, who feels the patient is not a surgical candidate. We have suggested that the patient start an inversion table. This would also help with the mild degree of listhesis that is noted in her lower lumbar spine. In addition to this, this should also help with the decompression of the disc. We will schedule the patient for a lumbar epidural steroid injection under fluoroscopy, given that the patient has pain in her legs bilaterally, we will look to do this interlaminar. The MRI was reviewed with the patient. Education was done. The patient is also to start a multivitamin and magnesium glycinate q.p.m. CC: Juancarlos Pepper D.O. [facility] Signed and Approved by: DR SCAR LAZARO . 07/17/2021 10:05:00 [facility] Evaluation + Plan note Future Appointments Appointment Date:04/15/2023 08:00:00 AM Scheduled Provider: Location:.ULTRASOUND Appointment Type:US Abdominal/Pelvis (FT) Appointment Date:04/16/2023 08:30:00 AM Scheduled Provider: Location:[facility] Appointment Type:Surgery FT Appointment Date:04/23/2023 09:30:00 AM Scheduled Provider: Location:.XRAY Appointment Type:XR MBS Adult (FT) Appointment Date:04/23/2023 10:00:00 AM Scheduled Provider: Location:.XRAY Appointment Type:XR Esophagus/Upper GI/Small Bowel (FT) Future Scheduled TestsUS Liver 04/15/23XR Esophagus 04/23/23XR Adult Swallowing Function w/ Video: Evaluate Pt, Develop a Plan of Care & Implement Plan 04/23/23 [facility] Evaluation + Plan note Future Appointments Appointment Date:04/23/2023 09:30:00 AM Scheduled Provider: Location:.XRAY Appointment Type:XR MBS Adult (FT) Appointment Date:04/23/2023 10:00:00 AM Scheduled Provider: Location:.XRAY Appointment Type:XR Esophagus/Upper GI/Small Bowel (FT) Future Scheduled TestsMRI Cholangiogram Pancreatography (mrcp) 04/16/23XR Esophagus 04/23/23XR Adult Swallowing Function w/ Video: Evaluate Pt, Develop a Plan of Care & Implement Plan 04/23/23 [facility] Evaluation + Plan note Future Appointments Appointment Date:04/28/2023 05:00:00 PM Scheduled Provider: Location:.MRI Appointment Type:MRI Unlisted Procedures (FT) Future Scheduled TestsMRI Cholangiogram Pancreatography (mrcp) 04/28/23 [facility] Evaluation note Diagnosis Constipation, unspecified constipation type- Primary Kidney stone Calculus of kidney documented in this encounter [facility] Work Phone: evaluation noteNo assessment information available [facility] Work Phone: Evaluation note* Diagnosis Complex regional pain syndrome type 1, affecting unspecified site Disorder of intervertebral disc of lumbar spine Chronic pain syndrome Neuropathy Mononeuritis of unspecified site [facility] Diagnosis Epigastric abdominal pain- Primary Abdominal pain, epigastric [facility] Epigastric abdominal pain Abdominal pain, epigastric [facility] Diagnosis Epigastric abdominal pain- Primary Abdominal pain, epigastric [facility] Diagnosis Epigastric abdominal pain Abdominal pain, epigastric S/P Yefri fundoplication (without gastrostomy tube) procedure Follow-up examination, following unspecified surgery Hypertension, unspecified type [facility] Diagnosis Epigastric abdominal pain- Primary Abdominal pain, epigastric S/P Yefri fundoplication (without gastrostomy tube) procedure Follow-up examination, following unspecified surgery [facility] Diagnosis Bacterial conjunctivitis of both eyes- Primary URI, acute Acute upper respiratory infections of unspecified site Need for vaccination Need for prophylactic vaccination and inoculation against unspecified single disease Nephrolithiasis Calculus of kidney [facility]* Diagnosis Complex regional pain syndrome type 1, affecting unspecified site Disorder of intervertebral disc of lumbar spine Chronic pain syndrome Neuropathy Mononeuritis of unspecified site [facility] Diagnosis Other chronic pain [facility]* Diagnosis Nonintractable headache, unspecified chronicity pattern, unspecified headache type [facility]* Diagnosis Complex regional pain syndrome type 1, affecting unspecified site Disorder of intervertebral disc of lumbar spine Chronic pain syndrome Neuropathy Mononeuritis of unspecified site [facility] Present illness NarrativeThe patient presents today for evaluation of the right small finger. She was injured in October of 2021. It sounds as though she had a right small finger PIP fracture/dislocation. She underwent nonoperative management of that circumstance. The patient then developed a flexion posture to the right small finger. It sounds as though she had a PIP flexion contracture. She was seen by a hand surgeon [facility] and ultimately underwent a surgical release. She is convinced that just a tendon was released and not the joint itself. She states that a pin was placed. She believes she started therapy abouta month after the surgical intervention. She states that the finger now sits in a flexed position and she has pain and dysfunction on a daily basis. The surgical release procedure was in May of 2022. The patient is right hand dominant and otherwise healthy. The injury occurred in the workplace. 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 Work Phone: History of Present illness NarrativeThe patient presents today for ongoing evaluation of the right small finger flexion contracture. The patient had an injury in the workplace. She developed PIP flexion contracture. She had surgery in [place]. The operative note indicates that the volar plate was released and full extension was achieved. The digit was pinned across the PIP joint for a period of time. It does not sound as though therapy was started until about four weeks postoperative. She experienced return of the flexion contracture. She presents today for ongoing evaluation.[facility] Work Phone: History of Present illness NarrativePatient is a 47 y/o right hand dominate female status post work injury PIP fracture/dislocation right small finger for which had surgery that consisted of volar plate releace and pinning of PIP in [place] . Patient diagnosed with and is weeks days post- operative. Patient reports pain and decreased independence with ADLs/ IADLs. Patient demonstrates decreased ROM, edema, tender and adhered scar, decreased functional strength, decreased sensation, newly healing structure requiring orthosis, and decreased independence with ADLs/IADLs per Quick DASH score. Patient will benefit from attending occupational therapy to improve functional use of hand. [facility] Work [facility]: Hospital course Narrative No data available for this section [facility] Discharge instructions* Attachments The following attachments cannot be sent through Care Everywhere. * Kidney Stone (Cymro) * Constipation (Cymro) [facility] Work [facility]: Hospital Discharge instructions Additional Instructions Follow-up with your primary care doctor Return to the ED if develop worsening symptoms or concernsReg[facility] Work Phone: Hospital Discharge instructions Additional Instructions Follow-up gastroenterology as soon as possible call Friday We will increase your Protonix to 2 times a day and continue Carafate Return if symptoms are worseRegency Hospital Company Work Phone: Hospital Discharge instructions No data available for this section [facility] No data available for this section [facility] Reason for referral (narrative)* Outpatient Procedure (Routine) - Pending Review Specialty Diagnoses / Procedures Referred By Jc t Referred To Contact [facility] Diagnoses Epigastric abdominal pain Procedures EGD DIAGNOSTIC ESOPHAGOGASTRODUODENOSC OPY TRANSORAL DIAGNOSTIC Nicanor Ferris MD [address] [place] [address] [facility] [address] [place] [address] Referral ID Status Reason Start Date Expiration Date Visits Requested Visits Authorized [id number] Pending Review Auto-Generat ed Referral 05/19/2023 05/18/2024 1 1 * MRI/CT (Routine) - Pending Review Specialty Diagnoses / Procedures Referred By Contac t Referred To Contact CT IMAGING Diagnoses Epigastric abdominal pain Procedures CT ABDOMEN WO IVCON CT ABDOMEN W/O CONTRAST Nicanor Ferris MD [address] [place] [address] Ct Imaging [facility]95 Referral ID Status Reason Start Date Expiration Date Visits Requested Visits Authorized [id number] Pending Review Auto-Generat ed Referral 05/19/2023 06/17/2024 1 1 * MRI/CT (Routine) - Pending Review Specialty Diagnoses / Procedures Referred By Jc t Referred To Contact CT IMAGING Diagnoses Epigastric abdominal pain Procedures CT CHEST WO IVCON DIAGNOSTIC COMPUTED TOMOGRAPHY THORAX W/O CNTRST Nicanor Ferris MD [address] [place] [address] Ct Imaging [place] [address] Referral ID Status Reason Start Date Expiration Date Visits Requested Visits Authorized [id number] Pending Review Auto-Generat ed Referral 05/19/2023 06/17/2024 1 1 [facility] for referral (narrative)* Outpatient Procedure (Routine) - Closed Specialty Diagnoses / Procedures Referred By Contac t Referred To Contact [facility] Diagnoses Epigastric abdominal pain Procedures EGD DIAGNOSTIC ESOPHAGOGASTRODUODENOSC OPY TRANSORAL DIAGNOSTIC Nicanor Ferris MD [address] [place] [address] [facility] [address] [place], [place] [address] [place] [address] Referral ID Status Reason Start Date Expiration Date V isits Requested Visits Authorized [id number] Closed Auto-Generate d Referral 05/19/2023 05/18/2024 1 1 [facility] for visit Narrative* Initial Evaluation, Evaluation and Treatment. * Reason for Referral: ROM small finger PIP. * Referred by Meli Bravo PA-C. [facility] Work Phone: Reason for visit Narrative* Outpatient Procedure (Routine) - Closed Specialty Diagnoses / Procedures Referred By Jc flaherty Referred To Contact [facility] Diagnoses Epigastric abdominal pain Procedures EGD DIAGNOSTIC ESOPHAGOGASTRODUODENOSC OPY TRANSORAL DIAGNOSTIC Nicanor Ferris MD [address] [place] [address] [facility] [address] [place] [id number] Referral ID Status Reason Start Date Expiration Date V isits Requested Visits Authorized [id number] Closed Auto-Generate d Referral 05/19/2023 05/18/2024 1 1 [facility] Family History No Family History Records Found Mother Name Dates Details Family history of diabetes m ellitus(V18.0, Z83.3) Status:Active Family history of colon canc er(V16.0, Z80.0) Status:Active Unknown Family Member Name Dates Details Family history of diabetes m ellitus: Mother(V18.0, Z83.3) Status:Active Family history of colon canc er: Mother(V16.0, Z80.0) Status:Active Unknown Family Member Name Dates Details Family history of diabetes m ellitus: Mother(V18.0, Z83.3) Status:Active Family history of colon canc er: Mother(V16.0, Z80.0) Status:Active Unknown Family Member Name Dates Details Family history of diabetes m ellitus: Mother(V18.0, Z83.3) Status:Active Family history of colon canc er: Mother(V16.0, Z80.0) Status:Active Unknown Family Member Name Dates Details Family history of diabetes m ellitus: Mother(V18.0, Z83.3) Status:Active Family history of colon canc er: Mother(V16.0, Z80.0) Status:Active Unknown Family Member Name Dates Details Family history of diabetes m ellitus: Mother(V18.0, Z83.3) Status:Active Family history of colon canc er: Mother(V16.0, Z80.0) Status:Active Unknown Family Member Name Dates Details Family history of diabetes m ellitus: Mother(V18.0, Z83.3) Status:Active Family history of colon canc er: Mother(V16.0, Z80.0) Status:Active Unknown Family Member Name Dates Details Family history of diabetes m ellitus: Mother(V18.0, Z83.3) Status:Active Family history of colon canc er: Mother(V16.0, Z80.0) Status:Active Relationship Condition Age at Onset Recorded Date/T wilma Not Specified Diabetes mellitus Unknown Malignant neoplasm of colon Unknown Summary Purpose Advance Directives No Advanced Directives Records Found Advance Directive Response Recorded Date/ Time Advance Directives No November 9:50am Chief Complaint * [facility]ompaniedBy_[facility]: * PsychChiefComplaintFreeTextNoteForm_[facility]: * AccompaniedBy_[facility]: * PsychChiefComplaintFreeTextNoteForm_[facility]: * AccompaniedBy_[facility]: * PsychChiefComplaintFreeTextNoteForm_[facility]: * [facility] * Lt ring finger * [facility] Status post injury in the workplace with right small finger proximal interphalangeal fracture/dislocation with proximal interphalangeal joint flexion contracture. Chief Complaint and Reason for Visit Chief Complaint chest pain,upper abd pain Chief Complaint chest pain,upper abd pain stomach pain Reason for Referral Specialty Diagnoses / Procedures Referred By Contac t Referred To Contact CT IMAGING Diagnoses Epigastric abdominal pain Procedures CT CHEST WO IVCON DIAGNOSTIC COMPUTED TOMOGRAPHY THORAX W/O CNTRST Nicanor Ferris MD [address] [place] [address] [place] [id number] Referral ID Status Reason Start Date Expiration Date V isits Requested Visits Authorized [id number] Closed Auto-Generate d Referral 05/19/2023 06/17/2024 1 1 Additional Source Comments INFORMATION SOURCE (unrecogn ized section and content) DATE CREATED AUTHOR 11/14/2021 [facility] DATE CREATED AUTHOR AUTHOR'S ORGANIZ ATION 01/03/2022 [facility] Specialist DATE CREATED AUTHOR AUTHOR'S ORGANIZ ATION 04/12/2022 [facility] DATE CREATED AUTHOR AUTHOR'S ORGANIZ ATION 06/14/2022 [facility] DATE CREATED AUTHOR AUTHOR'S ORGANIZ ATION 07/11/2022 [facility] DATE CREATED AUTHOR AUTHOR'S ORGANIZ ATION 09/24/2022 [facility] DATE CREATED AUTHOR AUTHOR'S ORGANIZ ATION 09/26/2022 [facility] Center DATE CREATED AUTHOR AUTHOR'S ORGANIZ ATION 10/28/2022 [facility] DATE CREATED AUTHOR AUTHOR'S ORGANIZ ATION 10/31/2022 [facility] DATE CREATED AUTHOR AUTHOR'S ORGANIZ ATION 04/18/2023 [facility] DATE CREATED AUTHOR AUTHOR'S ORGANIZ ATION 07/24/2023 [facility] DATE CREATED AUTHOR AUTHOR'S ORGANIZ ATION 08/12/2023 [facility] DATE CREATED AUTHOR AUTHOR'S ORGANIZ ATION 12/24/2023 [facility] dical Specialists [facility] DATE CREATED AUTHOR AUTHOR'S ORGANIZ ATION 02/10/2024 [facility] Reason for Visit (unrecogniz ed section and content) Reason Comments Flank Pain Right lower abd Reason Onset Date Comments Med Refill 04/24/2023 Reason Comments External Referrals/resources Reason Comments Request Outside Medical Records Received Outside Medical Records Specialty Diagnoses / Procedures Referred By Jc t Referred To Contact CT IMAGING Diagnoses Epigastric abdominal pain Procedures CT CHEST WO IVCON DIAGNOSTIC COMPUTED TOMOGRAPHY THORAX W/O CNTRST Nicanor Ferris MD [address] [place] [address] Ct Imaging [place] [id number] Referral ID Status Reason Start Date Expiration Date V isits Requested Visits Authorized [id number] Closed Auto-Generate d Referral 05/19/2023 06/17/2024 1 1 Reason Comments Consult Reason Comments Urinary Retention Pt presents today fo r urinary retention. Pt states she feels like she constantly has to urinate. Complaining of odor, flank and groin pain. Pt takes oxyurosis for pain. Pt is unsure of onset but has been awhile. Pt believes she has pink eye. Pt has drainage from her eyes, this has been a burns color. States her eyes are red and swollen. Pt states she has been using eye drops but this hasn't seemed to help. Reason Onset Date Comments Med Refill 12/27/2023 Reason Comments Med Refill Reason Onset Date Comments Med Refill 01/28/2024 Reason Onset Date Comments Med Refill 01/25/2024 Ordered Prescriptions (unrec ognized section and content) Prescription Sig Dispensed Refills Start Date End Da te naproxen (NAPROSYN) 250 MG tablet Take 1 tablet by mouth 2 times daily as needed for Pain 20 tablet 5 04/11/2022 dicyclomine (BENTYL) 10 MG capsule Take 1 capsule by mouth every 6 hours as needed (for pain) 20 capsule 1 04/11/2022 nitrofurantoin, macrocrystal-monohydr ate, (MACROBID) 100 MG capsule Take 1 capsule by mouth 2 times daily for 10 doses 10 capsule 0 04/11/2022 04/16/2022 tamsulosin (FLOMAX) 0.4 MG capsule Take 1 capsule by mouth daily for 10 days 10 capsule 0 04/11/2022 04/21/2022 bisacodyl 5 MG EC tablet Take 2 tablets by mouth daily as needed for Constipation 10 tablet 0 04/11/2022 Scheduled Active and Recently Administ ered Medications (unrecognized section and content) Medication Order 04/09/2022 04/10/2022 04/11/2022 0.9 % sodium chloride bolus (COMPLETED) 1,000 mL (17.4 mL/kg), IntraVENous, at 495.9 mL/hr, Administer over 121 Minutes, ONCE, On Aisha 04/11/22 at 1515, For 1 dose 1520 (New Bag - Prov ider: Jinny Horton RN)1659 (Stopped - Provider: Jinny Horton RN) dicyclomine (BENTYL) injection 20 mg (COMPLETED) 20 mg, IntraMUSCular, ONCE, 1 dose, On Aisha 04/11/22 at 1615 1614 (Given - Provid er: Jinny Horton RN) famotidine (PEPCID) 20 mg in sodium chloride (PF) 0.9 % 10 mL injection (COMPLETED) 20 mg, IntraVENous, ONCE, 1 dose, On Aisha 04/11/22 at 1515, IV Push over minimum of 2 minutes - Dilute with 10 mL NS 1521 (Given - Provid er: Jinny Horton RN) ketorolac (TORADOL) injection 15 mg (COMPLETED) Ketorolac is contraindicated in patients with advanced renal impairment and in patients at risk of renal failure due to volume depletion. For 65 years of age and older OR weight less than 50 kg, use 15 mg IV every 6 hours; MAX dose: 60 mg/day. Dose greater than 30 mg must be administered via intramuscular route. Do not administer for more than 5 days., 15 mg, IntraVENous, ONCE, 1 dose, On Aisha 04/11/22 at 1515, Do not administer for more than 5 days. 1521 (Given - Provid er: Jinny Horton RN) morphine sulfate (PF) injection 2 mg (COMPLETED) 2 mg, IntraVENous, NOW, 1 dose, On Aisha 04/11/22 at 1615, If oral and IV narcotics ordered, use oral first and only use IV if oral is ineffective or cannot take oral. Do Not give oral and IV within 1 hour of each other unless specifically ordered. 1613 (Given - Provid er: Jinny Horton RN) ondansetron (ZOFRAN) injection 4 mg (COMPLETED) 4 mg, IntraVENous, ONCE, 1 dose, On Aisha 2 at 1615 1613 (Given - Provid er: Jinny Horton RN) sodium chloride flush 0.9 % injection 3 mL(Linked Group 1) 3 mL, IntraVENous, EVERY 8 HOURS, First dose on Aisha 04/11/22 at 1445, Until Discontinued, Flush line with 3-5 mL 1659 (Not Given - Pr ovider: Jinny Horton RN - Reason: Other)2245 (Due) Linked Groups Order Group 1: Saline lock IV (COMPLETED) Routine, CONTINUOUS, Starting on Aisha 2 at 1445, Until Specified And sodium chloride flush 0.9 % injection 3 mLJump to med 3 mL, IntraVENous, EVERY 8 HOURS, First dose on Aisha 2/05/02 at 1445, Until Discontinued
Flush line with 3-5 mL
Care Teams (unrecognized sec tion and content) Broker Associate Relationship Specialty Start Date End Date Eloisa Pepper MD [address] [place] [address] [address] [place] [address] PCP - General 04/11/22 Team Status: Active Member Role Status Dates Juancarlos Pepper DO Primary Care Provider Active Team Status: Inactive Member Role Status Dates Juancarlos Pepper DO Primary Care Provider Active Tad Barger , Emergency Provider Active Team Status: Inactive Member Role Status Dates Juancarlos Pepper DO Primary Care Provider Active Start: March 24, 2023 End: March 24, 2023 Tad Barger , Emergency Provider Active Sta rt: March 24, 2023 End: March 24, 2023 Team Status: Inactive Member Role Status Dates Juancarlos Pepper DO Primary Care Provider Active Start: March 30, 2023 End: March 30, 2023 Zaheer Sanon Jr, MD Emergency Provider Active Start: March 30, 2023 End: March 30, 2023 Broker Associate Relationship Specialty Start Date End Date Nico Pepper DO [address] [place] [address] PCP - General Family Medicine 08/15/22 Broker Associate Relationship Specialty Start Date End Date Nico Pepper Jr., [address] [place] [id number] PCP - General Family Medicine 05/19/23 Malina Castaneda, INHALATION THERAPY AIDES TEACHER [address] [place] [address] Referring Family Medicine 05/19/23 Broker Associate Relationship Specialty Start Date End Date Nico Pepper Jr., [address] [place] [address] PCP - General Family Medicine 05/19/23 Malina Castaneda, ANGELIA [address] [place] [id number] Referring Family Medicine 05/19/23 Broker Associate Relationship Specialty Start Date End Date Nico Pepper Jr., DO [address] [place] [id number] PCP - General Family Medicine 05/19/23 Malina Castaneda, ANGELIA [address] [place] [address] Referring Family Medicine 05/19/23 Broker Associate Relationship Specialty Start Date End Date Nico Pepper ., DO [address] [place] [id number] PCP - General Family Medicine 05/19/23 Malina Castaneda, INHALATION THERAPY AIDES TEACHER [address] [place] [address] Referring Family Medicine 05/19/23 Broker Associate Relationship Specialty Start Date End Date Nico Pepper ., DO [address] [facility] [address] [place] [id number] PCP - General Family Medicine 05/19/23 Malina Castaneda, INHALATION THERAPY AIDES TEACHER [address] [place] [address] Referring Family Medicine 05/19/23 Broker Associate Relationship Specialty Start Date End Date Shantelle Nico Eloisa Salas., DO [address] [place] [phone] PCP - General Family Medicine 05/19/23 Malina Castaneda, INHALATION THERAPY AIDES TEACHER [address] [place] [place] [address] Referring Family Medicine 05/19/23 Broker Associate Relationship Specialty Start Date End Date Nico Pepper Jr., DO [address] [place] [phone] PCP - General Family Medicine 05/19/23 Malina Castaneda, ANGELIA [address] [place] [address] Referring Family Medicine 05/19/23 Broker Associate Relationship Specialty Start Date End Date Nico Pepper Jr., [address] [place] [phone] PCP - General Family Medicine 05/19/23 Malina Castaneda, INHALATION THERAPY AIDES TEACHER [address] [place], [place] [address] Referring Family Medicine 05/19/23 Broker Associate Relationship Specialty Start Date End Date Nico Pepper DO [address] [place] [address] PCP - General Family Medicine 08/15/22 Broker Associate Relationship Specialty Start Date End Date Nico Pepper DO [address] [place] [address] PCP - General Family Medicine 08/15/22 Broker Associate Relationship Specialty Start Date End Date Nico Pepper DO [address] [place] [address] PCP - General Family Medicine 08/15/22 Nico Pepper DO [address] [place] [address] PCP - Medical [employer] 02/07/23 03/09/99 Broker Associate Relationship Specialty Start Date End Date Jamisonjoeyjose Nico Selwyn DO [address] [place] [address] PCP - General Family Medicine 08/15/22 Nico Pepper, DO [address] [place] [address] PCP - Medical [employer] 02/07/23 03/09/99 Broker Associate Relationship Specialty Start Date End Date Nico Pepper DO [address] [place] [address] PCP - General Family Medicine 08/15/22 Broker Associate Relationship Specialty Start Date End Date Nico Pepper, DO [address] [place] [address] PCP - General Family Medicine 08/15/22 Goals (unrecognized section and content) Goals may be documented in a n alternate sectionGoals may be documented in an alternate section No data available for this section No data available for this section No data available for this section No data available for this section Source Comments (unrecognize d section and content) In the event this informatio n is protected by the Federal Confidentiality of Alcohol and Drug Abuse Patient Records regulations: The Federal rules restrict any use of the information to criminally investigate or prosecute any alcohol or drug abuse patient.[facility] Healthcare[facility] the event this information is protected by the Federal Confidentiality of Alcohol and Drug Abuse Patient Records regulations: The Federal rules restrict any use of the information to criminally investigate or prosecute any alcohol or drug abuse patient.[facility] HealthcareIn the event this information is protected by the Federal Confidentiality of Alcohol and Drug Abuse Patient Records regulations: The Federal rules restrict any use of the information to criminally investigate or prosecute any alcohol or drug abuse patient.[facility] HealthcareIn the event this information is protected by the Federal Confidentiality of Alcohol and Drug Abuse Patient Records regulations: The Federal rules restrict any use of the information to criminally investigate or prosecute any alcohol or drug abuse patient.[facility] HealthcareIn the event this information is protected by the Federal Confidentiality of Alcohol and Drug Abuse Patient Records regulations: The Federal rules restrict any use of the information to criminally investigate or prosecute any alcohol or drug abuse patient.[facility] HealthcareIn the event this information is protected by the Federal Confidentiality of Alcohol and Drug Abuse Patient Records regulations: The Federal rules restrict any use of the information to criminally investigate or prosecute any alcohol or drug abuse patient.[facility] HealthcareIn the event this information is protected by the Federal Confidentiality of Alcohol and Drug Abuse Patient Records regulations: The Federal rules restrict any use of the information to criminally investigate or prosecute any alcohol or drug abuse patient.[facility] HealthcareIn the event this information is protected by the Federal Confidentiality of Alcohol and Drug Abuse Patient Records regulations: The Federal rules restrict any use of the information to criminally investigate or prosecute any alcohol or drug abuse patient.[facility] HealthcareIn the event this information is protected by the Federal Confidentiality of Alcohol and Drug Abuse Patient Records regulations: The Federal rules restrict any use of the information to criminally investigate or prosecute any alcohol or drug abuse patient.[facility] HealthcareIn the event this information is protected by the Federal Confidentiality of Alcohol and Drug Abuse Patient Records regulations: The Federal rules restrict any use of the information to criminally investigate or prosecute any alcohol or drug abuse patient.[facility] FOR RECORDS PERTAINING TO PATIENTS WHO ARE OR HAVE BEEN ENROLLED IN A CHEMICAL DEPENDENCY/SUBSTANCEABUSE PROGRAM, SOME INFORMATION MAY BE OMITTED. This clinical summary was aggregated from multiple sources. Caution should be exercised in using it in the provision of clinical care. This summary normalizes information from multiple sources, and as a consequence, information in this document may materially change the coding, format and clinical context of patient data. In addition, data may be omitted in some cases. CLINICAL DECISIONS SHOULD BE BASED ON THE PRIMARY CLINICAL RECORDS. [facility]. provides no warranty or guarantee of the accuracy or completeness of information in this document.
== END 2024-02-24 11:35 | disposition home or self-care (01) ==
LOC: PM 11:34
PROVIDERS: PCP Family Medicine; Visit Provider Anesthesiology Pain Medicine
DX: M70.61 Trochanteric bursitis, right hip (principal)
CPT/HCPCS: 20610; J0665; J3301

== ENCOUNTER 2024-05-24 13:50 | Outpatient (OUT) | payer OTHER, SELFPAY ==
--- NOTE | 2024-05-24 | CONS_ITS ---
CONSULTATION DATE: 05/24/2024 TO: Dr. Pepper CHIEF COMPLAINT: Includes left lower back pain, hip pain. HISTORY: She returns today complaining of 6-8/10 pain in the left lower back area, described as a severe, throbbing type of pain with a sharp component, increased with activity such as laying in the supine position, standing and walking. She feels most comfortable in the semi-recumbent position. She denied any change in bowel and bladder habits or new sensorimotor changes in her lower extremities. MEDICATIONS: She continues to use Oxaprozin 600 mg b.i.d., Zanaflex 4 mg half a pill at h.s., and she uses Percocet infrequently. She makes the prescriptions last approximately three months? time. EXAM: Her examination is notable for patient having no clinical radiculopathy or myelopathy involving her lower extremities. Patient did have tenderness along the left SI joint, positive left sided Gaenslen?s maneuver, pelvic rock test, and patient also had a fair amount of myofascial spasm involving the lumbar paravertebral muscles, as well as the gluteus medius. Patient had no pain with lumbar facet joint loading maneuvers. Patient had nothing to suggest hip joint dysfunction. IMPRESSION: Our impression is patient appears to have chronic pain, which has flared secondary to left it sacroiliitis or left SI joint dysfunction. RECOMMENDATIONS: I recommend we proceed with a therapeutic left SI joint injection under fluoroscopic guidance, start aquatic therapy. I have given her a script for an SI joint brace, and to increase her Zanaflex to 4 mg pills, one- quarter pill in the morning, half a pill at bedtime. She is inquiring if she could use Percocet twice a day on occasion. I have informed her that it was okay to use Percocet twice a day on occasion, but to make the original script last the duration over three months. I have gone over the details of the procedure with the patient. All her questions answered. She agrees to proceed with the outlined plan. As part of providing excellent, safe, comprehensive care, the following was completed at our patient's visit: 1. A medication reconciliation and review to ensure accurate knowledge of current/active medications, including asking our patients to inform us about any [id number] medications or herbal remedies/nutritional supplements/alternative remedies. 2. A review to specifically ensure our patients have had annual screening for: elevated body mass index (BMI, see intake chart for exact total), tobacco use, screening for depression, and screening for unhealthy alcohol use. When screening is concerning, patients are provided with education and the specific recommendation to discuss the concerning health issue and treatment options with their primary care provider. [facility]
--- OUTSIDE RECORDS SUMMARY | 2024-05-24 13:55 | XMS_ITS | CCD ---
Author Organization [facility] Care Team Providers Care Civil Cadd Technician Name Role Phone Madeleine Marshall Unavailable Unavailable Nico Pepper Unavailable Unavailable Shantelle TANG, Eloisa Primary Care Provider LAUREN KRISHNAN Attending Unavailable SHANTELLE, ELOISA Primary Care Unavailable SHANTELLE, DR Ryan AMIN Primary Care Unavailable LAZARO ., DR SCAR Lugo Admitting Unavailable LAZARO ., DR SCAR Lugo Attending Unavailable LAZARO ., DR SCAR Lugo Consulting Unavailable SHANTELLE, DR Ryan AMIN Primary Care Unavailable LAZARO ., DR SCAR Lugo Attending Unavailable PA .CHRISTIAN Consulting Unavailable LAZARO ., DR SCAR Lugo Admitting Unavailable SHANTELLE, DR Ryan AMIN Consulting Unavailable LAZARO ., DR SCAR Lugo Consulting Unavailable LAZARO ., DR SCAR Lugo Attending Unavailable SHANTELLE, DR Ryan AMIN Primary Care Unavailable LAZARO ., DR SCAR Lugo Admitting Unavailable SHYAM LUNA Consulting Unavailable LAZARO ., DR SCAR Lugo Attending Unavailable PA ., CHRISTIAN Consulting Unavailable SHANTELLE, DR Ryan AMIN Primary Care Unavailable LAZARO ., DR SCAR Lugo Admitting Unavailable JANNETTE, [...] Unavailable JULIO, DR KYMBERLY Samano Consulting Unavailable SHANTELLE, DR Ryan AMIN Primary Care Unavailable JANNETTE, DR BRY Davis Consulting Unavailabl e WEST, DR MINE Parker Consulting Unavailable XIOMARA ., DR BECK Attending Unavailable HAY ., DR BECK Admitting Unavailable KAFTAN, DR Ryan AMIN Primary Care Unavailable HAY ., DR BECK Consulting Unavailable DEEPIKA YUSUF Consulting Unavailable AFSHAN, BUDDY Admitting Unavailable KAFTAN, DR Ryan AMIN Primary Care Unavailable AFSHAN, BUDDY Attending Unavailable ZIEBER, DR JUAN M Samano Consulting Unavailable AFSHAN, BUDDY Consulting Unavailable AFSHAN, BUDDY Attending Unavailable AFSHAN, BUDDY Admitting Unavailable AFSHAN, BUDDY Consulting Unavailable KAFTAN, DR Ryan AMIN Primary Care Unavailable DIANA HATCH Consulting Unavailable KANURIS, DR Ryan AMIN Primary Care Unavailable LAZARO ., DR SCAR Lugo Attending Unavailable IVETH ., DR SCAR Lugo Admitting Unavailable LAZARO ., DR SCAR Lugo Consulting Unavailable COLTONALETA Levy Consulting Unavailable MCCORNAJUAN M ROOT Consulting Unavailable LAZARO ., DR SCAR Lugo Attending Unavailable WINN .CHRISTIAN Consulting Unavailable KANURIS, DR Ryan AMIN Primary Care Unavailable LAZARO ., DR SCAR Lugo Admitting Unavailable Rolando, Dr. Madeleine Pruitt Attending Unavaila taniya Pepper Jr, Dr. Nico Amin Primary Care Amita vailable Nico Pepper Unavailable Unavailable Unavailable Dr. Nico Pepper Jr Primary Care Amita vailable Margarette, Dr. Humphrey Fierro Attending Amira Pepper Jr, Dr. Nico Amin Primary Care Amita vailable Daphne, Ms. Meli Garibay Attending Amita vadelroyble Shantelle Salas, Dr. Nico Amin Primary Care Amita vailable Meli Bravo Attending Unavailable Shantelle Salas, Dr. Nico Amin Primary Care Amita vailable Margarette, Dr. Humphrey Fierro Attending DO Juancarlos Marte Primary Care Provider DO Tad Barger Emergency Provider MD Zaheer Sanon Jr Emergency Provider Ryan PEPPER Primary Care Physician [phone] Tad Barger Attending Unavailable Juancarlos Pepper Primary Care Unavailable Tad Barger Admitting Unavailable Juancarlos Pepper Primary Care Unavailable Zaheer Sanon Jr Admitting Unavailable Zaheer Sanon Jr Attending Unavailable Nico Pepper DO Primary Care Provider Shantelle Masters, Nico CADENA Primary Care Provi joann Tonya VICE PRESIDENT OF MANUFACTURING, Malina Unavailable Shantelle Masters, Nico CADENA [facility] Provi joann NICO PEPPER JR ELOISA [facility] Unavail able RAJA, NICANOR Referring Unavailable AIDEE VILLAVICENCIO Attending Unavailable RAJA, NICANOR Referring Unavailable LACHO BULLOCK Attending Unavailable NICO PEPPER JR [facility] Unavail able RAJA, NICANOR Attending Unavailable NICO PEPPER JR [facility] Unavail able RAJA, NICANOR Referring Unavailable NICO PEPPER JR [facility] Care Unavail able Claudio Forrester Attending Unavaila [...] Tonya, Malina A Attending Unavailable NICO PEPPER R Attending Unavailable NICO PEPPER Attending Unavailable NICO PEPPER Referring Unavailable ROXANA VICENTE Attending Unavailable NICO PEPPER Referring Unavailable Nico Pepper DO R Unavailable Roxana Bermudez Unavailable VADIM CHOWDHURY Referring Unavailable SKIE, VADIM Attending Unavailable SKIE, VADIM Attending Unavailable SKIE, VADIM Attending Unavailable SKIEVADIM Admitting Unavailable SKIE, VADIM Attending Unavailable SKIE, VADIM Attending Unavailable SKIE, VADIM Attending Unavailable SKIE, VADIM Referring Unavailable SKIE, VADIM Referring Unavailable SKIE, VADIM Referring Unavailable Allergies Allergy Classification Reported Allergen(s) Allergy Type Date of Onset Reaction(s) Facility (11 sources) Metoclopramide; Translations: [Reglan] Drug Allergy 01-03-20 16 [facility] (14 sources) Sulfonamides (Antibiotic); Translations: [Sulfa Drugs] Allergy to drug (finding) Unknown (qualifier value) [facility] (20 sources) SUMAtriptan; Translations: [sumatriptan] Drug Allergy 12-29-19 21 Palpitations, Other (See Comments), Rash, Unknown (qualifier value), Other: See Comments, Unknown [facility] [id number] Work Phone: (20 sources) Metoclopramide; Translations: [metoclopramide] Drug Allergy 01-03-20 16 Hives, Nausea And Vomiting, Unknown (qualifier value), Anxiety, Other: See Comments, GI Upset, Unknown [employer] Work Phone: (20 sources) Sulfonamides (Antibiotic) Propensity to adverse reactions to drug 01-03-20 16 Nausea And Vomiting, Hives, GI Upset, Other: See Comments, Unknown [employer] Work Phone: (16 sources) Amoxicillin-Pot Clavulanate; Translations: [AMOXICILLIN-POT CLAVULANATE] Propensity to adverse reactions to drug 12-29-19 21 Other (See Comments), Rash [employer] (2 sources) Amoxicillin / Clavulanate; Translations: [Augmentin] Drug Allergy 01-26-20 19 [facility] (2 sources) Plasmin Drug Allergy 01-03-20 16 [facility] (2 sources) Sulfonamides (Antibiotic) Drug allergy (disorder) 01-03-20 16 [facility] (11 sources) Amoxicillin; Translations: [amoxicillin] Drug Allergy 03-14-19 [facility] (4 sources) Clavulanate; Translations: [clavulanic acid] Drug Allergy 03-24-19 [facility] (6 sources) Sulfonamides (Antibiotic); Translations: [Sulfa (Sulfonamide Antibiotics)] Allergy to substance 01-03-20 16 Unknown Reaction [facility] (4 sources) Amoxicillin / Clavulanate; Translations: [amoxicillin-clavu lanate] Drug Allergy Rash [facility] (1 source) Metoclopramide Drug Allergy 03-30-19 [facility] (2 sources) Sulfacetamide Drug Allergy 01-19-20 not sure, she was a [facility] (2 sources) Sulfur Drug Allergy 01-19-20 not sure, she was a [facility] (1 source) Metoclopramide; Translations: [METOCLOPRAMIDE HCL] Drug Allergy 05-21-19 [facility] Rep[facility] Medications Current Medications Medication Drug Class(es) Dates Sig (Normalized) Sig (Original) acetaminophen 300 mg / butalbital 50 mg / caffeine 40 mg oral capsule (20 sources) Barbiturate, Central Nervous System Stimulant, Methylxanthine Start: 09-17-2023 End: 05-05-2024 take 1 capsule by mouth every four hours as needed for headache butalbital-acetamin ophen-caffeine (Fioricet) 50-300-40 MG capsule Indications: Nonintractable headache, unspecified chronicity pattern, unspecified headache type TAKE 1 CAPSULE BY MOUTH EVERY 4 HOURS NEEDED FOR HEADACHES 40 capsule 05/05/2024 Active Start: 08-17-2019 Fioricet Refil l(s) 0 Start Date: 08/17/19 Status: Ordered Start: 06-23-2017 End: 12-01-2017 take 1 capsule by mouth every four hours as needed for headache abpjjvlbiz-hxtcwxdqbomgq-dittvulh (Fioricet) 50-300-40 MG capsule Indications: Nonintractable headache, unspecified chronicity pattern, unspecified headache type TAKE 1 CAPSULE BY MOUTH EVERY 4 HOURS NEEDED FOR HEADACHES 40 capsule 0 02/11/2023 Active take 1 tablet by jimmy th every four hours as needed acetaminophen 325 mg-caffeine 40 mg-butalbital 50 mg [...] 1 tablet by mouth every six hours as needed for pain Oxycodone-Acetaminophen 5-325 mg tablet Discontinued 1 TAB PO Q6H as needed for pain June 23, 2017 June 27, 2017 11:00pm June 28, 2017 11:02pm Comment on above: Take 1-2 tablets by mouth every 6 hours as needed. amoxicillin 875 mg oral tablet (1 source) Penicillin-class Antibacterial Start: 04-06-19 take 1 tablet by mouth every twelve hours Amoxicillin 875 mg tablet Active 875 MG PO Every 12 hours 27 12April 06, 2024 12:00am atenolol 50 mg / chlorthalidone 25 mg oral tablet (20 sources) Thiazide-like Diuretic, beta-Adrenergic Ricki Start: 04-07-19 atenolol-chlorthali done 50 mg-25 mg Tab Refill(s) 0 Start Date: 04/07/23 Status: Ordered Start: 10-05-2021 take 1 tablet by jimmy th once daily atenolol-chlorthalidone (Tenoretic) 50-2 5 MG tablet Indications: Primary hypertension (CMS/HCC) TAKE 1 TABLET BY MOUTH EVERY DAY 90 tablet 2 12/30/2023 Active Comment on above: Take 1 tablet by jimmy th once daily. azithromycin 250 mg oral tablet (11 sources) Macrolide Antimicrobial Start: 2023 azithromycin (Zithromax) [...] / pseudoephedrine hydrochloride 6 mg/ml oral solution (11 sources) alpha-Adrenergic Agonist, Uncompetitive C-aunaqu-N-aspartate Receptor Antagonist, Sigma-1 Agonist Start: 2023 brompheniramine-ps eudoephedrine-DM 30-2-10 MG/5ML syrup Indications: URI, acute Take 10 mL by mouth 4 (four) times a day as needed for cough or congestion (q6hrs) 200 mL 12/22/2023 Active Ghzgwmtqxz-JLOA-Ijkgik ne (FIORICET PO) (1 source) Start: 2019 Lfgplxflys-PDAX-Sh ffeine (FIORICET PO) Refill(s) 0 0 08/17/2019 Active 2 ml dicyclomine hydrochloride 10 mg/ml injection (8 sources) Anticholinergic Start: 2022 dicyclomine (BENTYL) injection 20 mg Start: 04-11-2022 take 1 capsule by [facility] every six hours as needed for pain dicyclomine (BENTYL) 10 MG capsule Take 1 capsule by mouth every 6 hours as needed (for pain) 20 capsule 1 04/11/2022 Active Start: 08-21-2018 End: 10-05-2021 take 1 tablet by mouth twice daily Dicyclomine 20 mg tablet Discontinued 20 MG PO Twice daily August 20, 2018 11:00pm October 05, 2021 3:12pm Start: 08-19-2018 End: 08-21-2018 take 1 tablet by mouth once daily Dicyclomine 20 mg tablet Discontinued 20 MG PO Daily August 18, 2018 [...] Comment on above: Take 1 capsule by [facility] every afternoon. estrogens, conjugated (mcfp) 0.625 mg/ml vaginal cream (1 source) Estrogen Start: 10-22-2022 Estrogens Conjugated (Premarin) 0.625 MG/GM cream Indications: Hormone imbalance Insert 1 g into the vagina in the morning. Take 1 gram nightly for 1 month, then twice weekly thereafter.. 30 g 3 10/22/2022 Active famotidine 40 mg oral tablet (20 sources) Histamine-2 Receptor Antagonist Start: 09-17-2023 take 1 tablet by mouth once daily famotidine (Pepcid) 40 MG tablet Indications: Gastroesophageal Reflux Disease Take 1 tablet (40 mg) by mouth Daily 30 tablet 5 09/17/2023 Active Start: 04-23-2023 take 1 tablet by [facility] twice daily famotidine (PEPCID) 20 mg tablet Take 20 mg by mouth two times a day. 0 04/23/2023 Active Start: 04-07-2023 End: 07-06-2023 take 1 tablet by mouth once daily at bedtime Pepcid 20 mg Tab 20 mg = 1 tab(s), Oral, Once a day (at bedtime), X 90 day(s), # 90 tab(s), Refills(s) 0, Pharmacy: [facility]/pharmacy #[id number], 157, cm, 04/07/23 10:57:00 EST, Height/Length Dosing, 65.7, kg, 04/07/23 10:57:00 EST, Weight Dosing Start Date: 04/07/23 Stop Date: 07/06/23 Status: Ordered Comment on above: Take 20 mg by mouth two times a day. hydrOXYzine pamoate 25 mg oral capsule (20 sources) Antihistamine Start: take 1 capsule by mouth every eight hours as needed hydrOXYzine pamoate (VISTARIL) 25 mg capsule Take 25 mg by mouth three times a day as needed. 0 10/05/2021 Active Start: 10-05-2021 take 1 capsule by mo [facility] every eight hours for anxiety hydrOXYzine pamoate (Vistaril) 25 MG capsule Indications: Anxiety and depression (CMS/HCC) Take 1 capsule (25 mg) by mouth every 8 (eight) hours if needed for anxiety 30 capsule 5 09/15/2023 Active Comment on above: Take 25 mg by mouth three times a day as needed. lamoTRIgine 200 mg oral tablet (20 sources) Mood Stabilizer, Anti-epileptic Agent Start: 06-17-2023 End: 02-26-2024 take 1 tablet by mouth once daily lamoTRIgine (LaMICtal) 200 MG tablet Indications: Bipolar affective disorder, remission status unspecified (CMS/HCC) , Anxiety and depression (CMS/HCC) Take 1 tablet (200 mg) by mouth Daily 90 tablet 3 02/27/2024 Active Start: 08-17-2019 Lamictal Refil ls(s) 0 Start Date: 08/17/19 Status: Ordered Start: 10-08-2016 End: 12-01-2017 take 1 tablet by mouth once daily Lamotrigine 200 mg tablet Discontinued 200 MG PO Daily November 19, 2016 11:00pm December 01, 2017 2:02pm Start: 10-08-2016 take 1 tablet by [facility] twice daily lamoTRIgine (LAMICTAL) 200 mg tablet Take 200 mg by mouth two times a day. 0 10/08/2016 Active Comment on above: Take 200 mg by [...] capsule (1 source) Nitrofuran Antibacterial Start: End: 023 take 1 capsule by mouth twice daily [...] as needed. 0 12/01/2017 Active Start: 12-01-2017 End: 04-06-2024 Ondansetron Hcl 4 mg tablet Discontinued 4 MG PO every 6 to 8 hours as needed for nausea and vomiting March 24, 2023 12:00am April 06, 2024 1:07pm Comment on above: Take 4 mg by mouth e very 8 hours as needed. oxaprozin 600 mg oral tablet (20 sources) Nonsteroidal Anti-inflammatory Drug Start: take 1 tablet by mouth once daily in the morning oxaprozin (Daypro) 600 MG tablet Indications: Unspecified thoracic, thoracolumbar and lumbosacral intervertebral disc disorder TAKE 1 TABLET BY MOUTH EVERY MORNING AND 1 TABLET BEFORE BEDTIME 60 tablet 3 02/03/2024 Active Start: 08-12-2022 take 1 tablet by jimmy th in the morning oxaprozin (Daypro) 600 MG tablet Indications: Unspecified thoracic, thoracolumbar and lumbosacral intervertebral disc disorder Take 1 tablet (600 mg) by mouth in the morning and 1 tablet (600 mg) before bedtime. 180 tablet 3 06/17/2023 Active Start: 08-12-2022 take 1 tablet by jimmy th in the morning oxaprozin (Daypro) 600 MG tablet Indications: Unspecified thoracic, thoracolumbar and lumbosacral intervertebral disc disorder TAKE 1 TABLET (600 MG) BY MOUTH IN THE MORNING AND 1 TABLET (600 MG) BEFORE BEDTIME. 60 tablet 3 01/13/2023 Active take 2 tablets by mo ut twice daily oxaprozin (DAYPRO) 600 MG tablet Take 1,200 mg by mouth 2 times daily 0 Active Comment on above: Take 600 mg by mouth once daily. PARoxetine hydrochloride 30 mg oral tablet (20 sources) Serotonin Reuptake Inhibitor Start: 08-17-2019 paroxetine Refills(s) 0 Start Date: 08/17/19 Status: Ordered Start: 11-20-2016 take 60 mg by mouth once daily Paroxetine Hcl Active 60 MG PO Daily November 19, 2016 11:00pm Start: 10-08-2016 take 2 tablets by mo ut once daily PARoxetine (Paxil) 30 MG tablet [...] mg by mouth once daily. polymyxin b 17330 unt/ml / trimethoprim 1 mg/ml ophthalmic solution [...] 200 mg oral capsule (20 sources) Start: 05-03-19 take 1 capsule by mouth in the morning pregabalin (Lyrica) 200 MG capsule Indications: Complex regional pain syndrome type 1, affecting unspecified site , Disorder of intervertebral disc of lumbar spine , Chronic pain syndrome , Neuropathy Take 1 capsule (200 mg) by mouth in the morning and 1 capsule (200 mg) before bedtime. 60 capsule 05/03/2024 Active Start: 12-29-2023 End: 05-03-2024 take 1 capsule by mouth twice daily Pregabalin 200 mg capsule Active 200 MG PO Twice daily April 06, 2024 12:00am Start: 10-17-2023 End: 12-27-2023 take 1 capsule by mouth [...] 1 tablet by jimmy th once daily. sodium chloride flush 0.9 % injection 3 mL (1 source) Start: 04-11-2022 sodium chloride flush 0.9 % injection 3 mL sucralfate 1000 mg oral tablet (10 sources) Aluminum Complex Start: 04-07-2023 sucralfate 1 g Tab Refills(s) 0 Start Date: 04/07/23 Status: Ordered Start: 03-24-2023 End: 04-06-2024 take 1 tablet by mouth every six hours Sucralfate (Carafate) 1 gram tablet Discontinued 1 GM PO Q6H 56 March 24, 2023 12:00am April 06, 2024 1:21pm Start: 10-05-2021 End: 04-06-2024 take 1 tablet by mouth twice daily as needed for pain Sucralfate (Carafate) 1 gram tablet Discontinued 1 GM PO Twice daily as needed for pain 10 5 October 05, 2021 4:46pm April 06, 2024 1:21pm tamsulosin hydrochloride 0.4 mg oral capsule (1 [...] 01/08/2024 Active take 1 capsule by mo uth three times daily tiZANidine HCl (ZANAFLEX) 4 mg capsule T yousuf 4 mg by mouth three times a day. 0 Active take 1 tablet by jimmy th every six hours as needed tiZANidine (ZANAFLEX) 4 MG tablet Take 4 mg by mouth every 6 hours as needed 0 Active Comment on above: Take 4 mg by mouth t hree times a day. valACYclovir 500 mg oral tablet (14 sources) Herpesvirus Nucleoside Analog DNA Polymerase Inhibitor, Herpes Simplex Virus Nucleoside Analog DNA Polymerase Inhibitor, Herpes Zoster Virus Nucleoside Analog DNA Polymerase Inhibitor Start: take 1 tablet by mouth once daily in the morning, then take 1 tablet by mouth in the evening, then take 1 tablet by mouth at bedtime valACYclovir (Valtrex) 500 MG tablet Indications: History of cold sores TAKE 1 TABLET BY MOUTH EVERY MORNING 1 IN THE EVENING & 1 AT BEDTIME FOR 7 DAYS 21 tablet 1 04/05/2024 Active Start: 07-22-2023 take 1 tablet by jimmy th in the morning, then take 1 tablet [...] Nausea, # 12 tab(s), Refills(s) 0, [facility]acy[facility], 157, cm, 02/26/21 23:25:00 EST, Height/Length [...] Madeleine Marshall MD Start : 25-Oct-2016 Active 12 hr buPROPion hydrochloride 150 mg extended release oral tablet (4 sources) Aminoketone Start: 10-05-2021 End: 04-06-2024 take 1 tablet by mouth once daily Bupropion Hcl 150 mg tablet sustained-release 12 hr Discontinued 150 MG PO Daily October 04, 2021 11:00pm April 06, 2024 1:20pm take 1 tablet by mouth twice ney ly buPROPion (WELLBUTRIN SR) 150 MG extended release tablet Take 150 mg by mouth 2 times daily 0 Active busPIRone hydrochloride 15 mg oral tablet (4 sources) Start: 10-05-2021 End: 04-06-2024 take 1 tablet by mouth once daily Buspirone 15 mg tablet Discontinued 15 MG PO Daily October 04, 2021 11:00pm April 06, 2024 1:20pm cephalexin 500 mg oral capsule (3 sources) Cephalosporin Antibacterial Start: 06-23-2017 End: 08-21-2018 take 1 capsule by mouth every twelve hours Cephalexin 500 mg capsule Discontinued 500 MG PO Q12H June 22, 2017 11:00pm August 21, 2018 9:17am famotidine (PEPCID) 20 mg in sodium chloride (PF) 0.9 % 10 mL injection (1 source) Start: 04-11-2022 End: 04-11-2022 famotidine (PEPCID) 20 mg in sodium chloride (PF) 0.9 % 10 mL injection ibuprofen 600 mg oral tablet (3 sources) Nonsteroidal Anti-inflammatory Drug Start: 11-20-2016 End: 10-05-2021 take 1 tablet by mouth every eight hours as needed for pain Ibuprofen 600 mg tablet Discontinued 600 MG PO Q8H as needed for pain November 19, 2016 11:00pm October 05, 2021 3:12pm 1 ml ketorolac tromethamine 15 mg/ml cartridge (1 source) Nonsteroidal Anti-inflammatory Drug, Cyclooxygenase Inhibitor Start: 04-11-2022 End: 04-11-2022 ketorolac (TORADOL) injection 15 mg 1 ml morphine sulfate 4 mg/ml injection (1 source) Opioid Agonist Start: 04-11-2022 End: 04-11-2022 morphine sulfate (PF) injection 2 mg Start: 04-11-2022 End: 04-11-2022 morphine sulfate (PF) inject ion 2 mg pantoprazole 20 mg delayed release oral tablet (9 sources) Proton Pump Inhibitor Start: 03-30-2023 End: 04-06-2024 take 2 tablets by mouth twice daily Pantoprazole (Protonix) 20 mg tablet,delayed release (DR/EC) Discontinued 40 MG PO Twice daily March 30, 2023 12:00am April 06, 2024 1:07pm Start: 03-24-2023 End: 04-06-2024 take 1 tablet by mouth once daily Pantoprazole (Protonix) 40 mg tablet,delayed release (DR/EC) Discontinued 40 MG PO Daily March 24, 2023 12:00am April 06, 2024 1:21pm Start: 03-13-2021 take 1 tablet by jimmy th once daily pantoprazole 40 mg Oral EC Tab 40 mg = 1 tab(s), Oral, Daily, # 30 tab(s), Refills(s) 0 Start Date: 03/13/21 Status: Ordered promethazine hydrochloride 25 mg oral tablet (7 sources) Phenothiazine Start: 03-17-2021 End: 04-06-2024 take 1 tablet by mouth three times daily as needed for nausea and vomiting Promethazine 25 mg tablet Discontinued 25 MG PO Three times daily as needed for nausea and vomiting 12 4 October 04, 2021 11:00pm April 06, 2024 1:21pm 50 ml sodium chloride 9 mg/ml injection (1 source) Start: 04-11-2022 End: 04-11-2022 0.9 % sodium chloride bolus topiramate 25 mg oral tablet (1 source) Start: 10-25-2016 Topiramate 25 MG Oral Tablet 25mg tabs titrate to 100mg bid per protocol faxed to pharm Quantity: 196 Refills: 0 Madeleine Marshall MD Start : 25-Oct-2016 Active traMADol hydrochloride 50 mg oral tablet (10 sources) Opioid Agonist Start: 10-05-2021 End: 04-06-2024 take 1 tablet by mouth once daily Tramadol 50 mg tablet Discontinued 50 MG PO Daily October 04, 2021 11:00pm April 06, 2024 1:21pm Start: 08-17-2019 tramadol Refil ls(s) 0 Start Date: 08/17/19 Status: Ordered Start: 06-23-2017 End: 08-19-2018 Tramadol 50 mg tablet Discon tinued 50 MG PO As Directed as needed for Pain June 22, 2017 11:00pm August 19, 2018 1:20pm Problems Active Problems Problem Classification Problem Date Documented Da te Episodic/Chronic Anxiety disorders (20 sources) Anxiety attack ; Translations: [Panic disorder [episodic paroxysmal anxiety]] Onset: 7 12-17-2022 Chronic Chronic kidney disease (14 sources) Chronic kidney disease stage 3A ; Translations: [Stage 3a chronic kidney disease (HCC)] Onset: 3 12-17-2022 Chronic Esophageal disorders (20 sources) Gastroesophageal reflux disease without esophagitis; Translations: [...] fracture] Onset: 2 Episodic Gastritis and duodenitis (3 sources) Gastritis; Translations: [Gastritis, unspecified, without bleeding] 03-24-2023 Episodic Headache; including migraine (2 sources) Headache; Translations: [Nonintractable headache, unspecified chronicity pattern, unspecified headache type] 01-28-2024 Episodic Immunizations and screening for infectious disease (2 sources) Vaccination needed; Translations: [Encounter for immunization] 12-22-2023 Episodic Inflammation; infection of eye (except that caused by tuberculosis or sexually transmitteddisease) (5 sources) Conjunctivitis; Translations: [Unspecified conjunctivitis] 06-23-2017 Episodic Mood disorders (20 sources) Bipolar disorder, currently in remission, most recent episode unspecified; Translations: [Bipolar disorder, unspecified] Onset: 7 08-17-2019 Chronic Nausea and vomiting (20 sources) Nausea with vomiting, unspecified; Translations: [Nausea] Onset: 2 Episodic Nonspecific chest pain (4 sources) Chest pain; Translations: [Chest pain, unspecified] Onset: 4 03-24-2023 Episodic Osteoarthritis (19 sources) Primary osteoarthritis, right hand; Translations: [Arthritis] Onset: 3 08-17-2019 Chronic Other acquired deformities (5 sources) Contracture of joint; Translations: [Contracture of joint, site unspecified] Chronic Other acquired deformities (3 sources) Contracture, right hand; Translations: [Contracture, right hand] Onset: 3 Chronic Other acquired deformities (14 sources) Contracture of joint of right hand; Translations: [Contracture, right hand] Onset: 3 12-17-2022 Chronic Other acquired deformities (1 source) Unspecified acquired deformity of hand, right hand; Translations: [Unspecified acquired deformity of hand, right hand] Onset: 3 Episodic Other aftercare (1 source) Other penitentiary (current) drug therapy; Translations: [OTH [facility] CURRENT DRUG THERAPY] Onset: 3 Episodic Other connective tissue disease (9 sources) Foot pain; Translations: [Pain in limb] Episodic Other gastrointestinal disorders (15 sources) Irritable bowel syndrome; Translations: [Irritable bowel syndrome without diarrhea] Onset: 3 12-17-2022 Chronic Other gastrointestinal disorders (1 source) Constipation; Translations: [Constipation, unspecified] Episodic Other gastrointestinal disorders (3 sources) Mucus in stool; Translations: [Other fecal abnormalities] 08-21-2018 Episodic Other liver diseases (18 sources) Steatosis of liver; Translations: [Fatty (change of) liver, not elsewhere classified] Onset: 4 Chronic Other lower respiratory disease (3 sources) Nodule of lung; Translations: [Solitary pulmonary [...] Onset: 3 Chronic Other nervous system disorders (20 sources) Complex regional pain syndrome type I of left lower limb; Translations: [Reflex sympathetic dystrophy of the lower limb] Onset: 3 12-17-2022 Chronic Other nervous system disorders (20 sources) Complex regional pain syndrome type I; Translations: [Complex regional pain syndrome I, unspecified] Onset: 1 04-24-2023 Chronic Other nervous system disorders (8 sources) Chronic pain syndrome; Translations: [Chronic pain syndrome] 04-24-2023 Chronic Other nervous system disorders (20 sources) Neuropathy; Translations: [Polyneuropathy, unspecified] Onset: 9 04-24-2023 Chronic Other nervous system disorders (15 sources) Chronic pain; Translations: [Other chronic pain] [...] UTERUS] Onset: 3 Episodic Residual codes; unclassified (3 sources) Family history of cancer of colon; Translations: [Family history of malignant neoplasm of digestive organs] 08-21-2018 Episodic Residual codes; unclassified (2 sources) Pain; Translations: [Pain] Onset: 5 Episodic Rheumatoid arthritis and related disease (1 source) Other specified spondylopathies, lumbar region; Translations: [OTH SPEC SPONDYLOPATHIES LUMBAR RGN] Onset: 2 Chronic Spondylosis; intervertebral disc disorders; other back problems (20 sources) Spondylosis without myelopathy or radiculopathy, lumbar region; Translations: [Other intervertebral disc degeneration, lumbar region] Onset: 2 Chronic Thyroid disorders (20 sources) Hypothyroidism; Translations: [Hypothyroidism, unspecified] Onset: 3 08-17-2019 Chronic Unclassified (1 source) LOW BACK PAIN, UNSPECIFIED; Translations: [LOW BACK PAIN, UNSPECIFIED] Onset: 2 Unclassified (4 sources) Patient encounter status 04-07-2023 Unclassified (2 sources) Post-op; Translations: [Post-op] Onset: 5 Past or Other Problems Problem Classification Problem Date Documented Da te Episodic/Chronic Abdominal pain (20 sources) Flank pain; Translations: [Unspecified abdominal pain] Onset: 09-01-2021 Episodic Calculus of urinary tract (20 sources) Kidney stone; Translations: [Calculus of kidney] Onset: 06-10-2022 Episodic Complication of device; implant or graft (2 sources) Pain due to internal orthopedic prosthetic devices, implants and grafts, initial encounter; Translations: [Pain due to internal orthopedic prosthetic devices, implants and grafts, initial encounter] Onset: 11-20-2023 Episodic E Codes: Other specified and classifiable (1 source) Caught, crushed, jammed, or pinched between moving objects, initial encounter; Translations: [CAUGHT CRUSH/PINCH BTWN MOV OBJ INT] Onset: 11-05-2021 Episodic Genitourinary symptoms and ill-defined conditions (14 sources) Delay when starting to pass urine; Translations: [Hesitancy of micturition] Onset: 12-14-2020 12-17-2022 Episodic Joint disorders and dislocations; trauma-related (20 sources) Dislocation of proximal interphalangeal joint of right little finger, initial encounter; Translations: [Dislocation of digit of hand] Onset: 11-01-2021 12-17-2022 Episodic Other connective tissue disease (6 sources) [...] UNSPECIFIED] Onset: 09-05-2021 Episodic Other gastrointestinal disorders (19 sources) Dysphagia; Translations: [Dysphagia, unspecified] Onset: 06-10-2022 Episodic Other gastrointestinal disorders (18 sources) Heartburn; Translations: [Heartburn] Onset: 06-10-2022 04-06-2021 Episodic Other lower respiratory disease (14 sources) Solitary nodule of lung; Translations: [Solitary pulmonary nodule] Onset: 12-17-2022 12-17-2022 Episodic Other nervous system disorders (1 source) Complex regional pain syndrome type I of left lower limb; Translations: [Complex regional pain syndrome type 1 of left lower extremity] Residual codes; unclassified (14 sources) Insomnia; Translations: [Insomnia, unspecified] Onset: 01-23-2018 12-17-2022 Episodic Residual codes; unclassified (20 sources) History of fundoplication; Translations: [Other specified postprocedural states] Onset: 07-02-2023 07-02-2023 Episodic Residual codes; unclassified (2 sources) Pain, unspecified; Translations: [Pain, unspecified] Onset: 01-07-2024 Episodic Spondylosis; intervertebral disc disorders; other back problems (5 sources) Intervertebral disc disorders with radiculopathy, lumbar region; Translations: [Radiculopathy, lumbar region] Onset: 08-21-2021 Episodic Results Test Name Value Interpretation Reference Range Facility Office Visiton 04-20-2024 Follow-up visit [id number] Sejal Camarilloh er N 1975 F Date Provider Department [place] 04/20/2024 VADIM KISER MP ORTHO MPORTHO No family history on file Level of Service:01156 [place] OFFICE/OUTPATIENT ESTABLISHED SF MDM 10 MIN Reason for Visit and Comments: Pain [136] Post-op [483] [facility] 36on 02-11-2024 36 Attempted to call pamela delatorre and lvm to call back. [facility] 36on 02-09-2024 36 Attempted to call patient, phone kept ringing, no VM [facility] 36on 02-04-2024 36 Pt calling non incis ional pain and swelling and wanted to speak with Dr Nation nurse. [facility] Telephoneon 02-04-2024 Telephone [id number] CamarilloSejal chuh er N 1975 F Date Provider Department [place] 02/04/2024 MAYA FERMIN MP ORTHO MPORTHO No family history on file [facility] Office Visiton 01-14-2024 Follow-up visit [id number] Sejal Camarilloh er N 1975 F Date Provider Department [place] 01/14/2024 VADIM KISER MP ORTHO MPORTHO No family history on file Level of Service:45813 [place] POSTOP FOLLOW UP VISIT RELATED TO ORIGINAL PX Reason for Visit and Comments: Post-op [483] Pain [136] [facility] HPon 01-07-2024 History Of Present Illness Tasneem Camarillo is [...] Kidney stone, Migraines, and Painful orthopaedic hardware ([facility]). Surgical History She has a past surgical [...] removal, ring finger trigger digit release. [facility] NURSNOTEon 01-07-[address] chowdhury notified no ATB ordered. [facility] OPNOTEon 01-07-2024 OPNOTE Operative Note Patient: Tasneem Camarillo Date of Surgery: 01/07/2024 : 1975 Pre-operative Diagnosis: 1. Retained hardware PIP joint right small finger, 2. Trigger digit right ring finger Post-operative Diagnosis: same Operation: 1. Removal of retained hardware right small finger, 2. Trigger digit release right ring finger (00280) Surgeon: Vadim Chowdhury MD [employer] Supervisor: Jerome Jesus MD Staff: Sales Correspondence Clerk: Roel Paez RN; Bryanna Esparza RN Scrub Person: Josephine Mckinley CST [employer] Sales Correspondence Clerk: Roel Paez RN Anesthesia Type: Regional Indications: [...] saline solution. The extensor is closed with [id number] sutures of 4-0 Vicryl. The skin is [...] Disposition: PACU Condition: Stable Vadim Chowdhury MD Normal [facility] POCT GLUCOSE METER UNSOLICIT ED RESULTSon 01-07-2024 Glucose [Mass/Vol] 89 mg/dL Normal 70-[address] [facility] Comment on above: Order Comment: Waive d Testing in the ED is performed under the ED CLIA certificate #[id number]. Result Comment: jenc k2 Performed By: #### L [id number] ####[facility] ([facility])[address] [place] [address] Urinalysis macro (dipstick) panel (U)on 12-22-2023 Bilirubin, UA Negative Negative - 4(70) +++ mg/dL [facility] Blood, UA Negative Negative - 50 Igor/mcL [facility] Clarity, UA Clear [facility] Color, UA Yellow [facility] Glucose, UA Negative Negative - 1999(110) ++++ mg/dL [facility] Interpretation and review of laboratory results Normal [facility] Ketones, UA Negative Negative - 160(16) ++++ mg/dL [facility] Leukocytes, UA Negative Negative - 500+++ Lashonda/mcL [facility] Nitrite, UA Negative Negative - Positive [facility] pH, UA 5.5 5 - 9 [facility] Protein, UA Negative Negative - 1999(20) ++++ mg/dL [facility] Spec Grav, UA 1.02 1 - 1.03 [facility] Urobilinogen, UA 0.2 0.2 - 12 mg/dL [facility] 36on 11-21-2023 36 Called for extension date on C9 for surgery. [facility] 36on 11-20-2023 36 New letter was made and is going to be sent to patient [facility] 36 Patient called back and would like you to call her back. She wants a letter that states she can go back to work the following Friday after surgery. Please call patient [phone] [facility] 36 Spoke with patient ward nd informed her that I booked for the and the letter was sent to her via My Chart, she informed me that I can mail it and then the phone hung up. [facility] Orders Onlyon 11-20-2023 Orders Only [id number] Ruddy Camarillo N 1975 F Date Provider Department Center 11/20/2023 Bhavna3-REGAN MOREL MP [facility] No family history on file [facility] 36on 11-19-2023 36 Patient called to [facility] date of 01/06. She would like to know if she needs to come back to the office for an appointment before surgery? Is there any testing that needs completed before surgery? Please call patient [phone]. If unable to get through to her, she is requesting that you call her Pablo [phone] due to her not having good service at work. Patient is also requesting a letter to be wrote with attentive surgery date and the time time off work for afterward so she can prepare her work. [facility] 36 Spoke with patient. Informed patient of date of surgery. Patient agreeable to this date for surgery. [facility] 36 Spoke with patient, picked a date of 01/07/2024, phone got disconnected and I left a detailed message stating the surgery date again and said if that did not work please call back Please get an extension for this, Dr. Chowdhury does not have any open time before 01/06 [facility] 36on 11-18-2023 36 Attempted ot call pamela delatorre to schedule surgery. Lvm to call me back [facility] 36 [facility] authorization on file for SURGERY - RIGHT SMALL FINGER HARDWARE REMOVAL AND RIGHT RING FINGER TRIGGER RELEASE Valid 11/14/23-12/12/23 Please make sure all orders are in the chart and call patient to schedule [facility] 36on 11-17-2023 36 Patient talked with [facility] and surgery is approved and would like call back to schedule [facility] Telephoneon 11-17-2023 Telephone [id number] Ruddy Camarillo N 1975 F Date Provider Department [place] 11/17/2023 [id number] PENA MP ORTHO MPORTHO No family history on file Reason for Visit and Comments: [facility] APPROVED [Other] [facility] 36on 11-11-2023 36 Sent to [facility] Office Visiton 11-05-2023 Follow-up visit [id number] Ruddy Camarillo er N 1975 F Date Provider Department Center 11/05/2023 438-VADIM CHOWDHURY MP ORTHO MPORTHO No family history on file Level of Service:36911 [place] OFFICE/OUTPATIENT ESTABLISHED LOW MDM 20 MIN Reason for Visit and Comments: Pain [136] [facility] Orders Onlyon 10-31-2023 Orders Only [id number] Sejal Camarilloh er N 1975 F Date Provider Department [place] 10/31/2023 803-REGAN MOREL MP ORTHO MPORTHO No family history on file [facility] Office Visiton 08-06-2023 Follow-up visit [id number] Ruddy Camarillo er N 1975 F Date Provider Department Center 08/06/2023 Nancy-VADIM CHOWDHURY MP ORTHO MPORTHO No family history on file Level of Service:81229 [place] OFFICE/OUTPATIENT ESTABLISHED LOW MDM 20 MIN Reason for Visit and Comments: Follow-up [779571] - Having pain, tightness and feels like something is pulling in the little finger. ff Pain [136] - Having pain, tightness and feels like something is pulling in the little finger. ff Normal [facility] Operative Reporton Operative Report [id number]#1.00TIFF Normal [facility] Pathology Noteon 07-04-2023 Pathology Note [id number]#1.00TIFF Normal [facility] ANES POSTPROC EVALon 024 ANES POSTPROC EVAL HNO ID: [id number] Author: AURE JARRELL MD Service: ? Author [...] Tasneem Camarillo DATE: July 02, 2023 TIME: 9:51 AM CSN: [id number] Normal [facility] ANES PRE-OPon 07-02-2023 ANES PRE-OP HNO ID: [id number] Author: AURE JARRELL MD Service: ? Author Type: Anesthesiologist Type: Anesthesia Preprocedure Evaluation Filed: 07/02/2023 08:50 Note Text: ANESTHESIOLOGY DAY OF SURGERY NOTE : 1975 Procedure Information Date/Time: 07/02/23 0900 Scheduled providers: Nicanor Ferris MD; Aure Jarrell MD; Lacho Bullock MD Procedure: EGD DIAGNOSTIC Location: Gastroenterology [...] and consent discussed: yes. Patient / Responsible Green Party agrees to proceed: yes Patient / Surrogate agrees to blood products: blood products not planned Potential Anesthesia issues that may suggest increased risk of complications or contraindication to planned procedure: none. Vitals Value Taken Time BP 115/54 07/02/23820 Pulse 47 07/02/23820 Resp 16 07/02/23820 Temp 36 ?C (96.8 ?F) 07/02/23820 SpO2 100 % 07/02/23820 Outpatient Medications as [...] July 02, 2023 TIME: 8:48 AM CSN: [id number] Normal [facility] CNOVon 07-02-2023 CNOV Office Visit (THORMN ) ----- TASNEEM CAMARILLO ([id number]) 1975 F Date Time Provider Department 07/02/23 11:30 AM AIDEE VILLAVICENCIO [facility] During your visit today, we recorded the following information about you: Temperature Pulse Blood pressure Weight 97.8 degrees 53/minute 102/61 63.9 kg Height 1.575 m Aidee Villavicencio, KAILA.VICE PRESIDENT OF MANUFACTURING 07/02/2023 12:46 PM Signed [facility] - OUTPATIENT THORACIC SURGERY CLINIC NOTE PT NAME: Tasneem Camarillo [facility] NO: [id number] THORACIC SURGEON: Nicanor Ferris M.D. DATE OF [...] Local GI for symptom management Aidee Villavicencio APRN.VICE PRESIDENT OF MANUFACTURING Referring Provider: NICANOR FERRIS [[id number]] Allergies As of Date: 07/02/2023 Noted Allergy [...] be provi (more content not included)... Normal [facility] EGD Study observation Narrat iveon 07-02-2023 [facility] Radiology Study observation (narrative) [facility] NURSING PROGon 07-02-2023 NURSING PROG HNO ID: [id number] Author: ALISHA CANELA LPN Service: Nursing Author [...] Electronically Signed By: Alisha Canela LPN Normal [facility] NURSING PROG HNO ID: [id number] Author: TATY SHERIDAN RN Service: Nursing Author [...] Sheridan RN BSN In Department: GASTROENTEROLOGY Normal [facility] NURSING PROG HNO ID: [id number] Author: TATY SHERIDAN RN Service: Nursing Author Type: Registered Nurse Type: Nursing Progress Note Filed: 07/02/2023 08:26 Note Text: 0812: Dr. Madeline Jarrell paged: Patient Tasneem Camarillo in pre bed 16: Patient states she is US only IV access. Are you able to help me obtain IV access? Thanks! Casandra 7925: Dr. Jarrell paged: Patient Tasneem Camarillo in pre bed 16: Patient ready for US IV access, thanks! Casandra Sheridan RN BSN Normal [facility] SURGICAL PATHOLOGYon 024 CASE REPORT Normal [facility] Comment on above: Order Comment: Speci men Type: TISSUE SPECIMENOrdering Facility: [facility] Address: [address] [place] [address] Result Comment: Surg ical Pathology Report Case: [id number] Authorizing Provider: Nicanor Ferris MD Collected: 07/02/2023 08:58 AM Ordering Location: Gastroenterology Received: 07/02/2023 11:39 AM Pathologist: Ziyad Lama MD Specimens: A) - Stomach, Antrum, Biopsy, r/o H. Pylori B) - Esophagus, Biopsy, 32cm - r/o EOE C) - Esophagus, Biopsy, 25cm - r/o EOE Performed By: #### S ####[facility] [id number] [address] LABCLIA [id number] [address] DIAGNOSIS COMMENT A. No microorganisms morphologically compatible with Helicobacter Pylori like organisms are identified by routine H AND E-stained sections. Normal [facility] Comment on above: Order Comment: Speci men Type: TISSUE SPECIMENOrdering Facility: [facility] Address: [address] [place] [address] Performed By: #### S ####[facility] [id number] [address] LABIA [id number] [address] FINAL DIAGNOSIS Normal [facility] Comment on above: Order Comment: Speci men Type: TISSUE SPECIMENOrdering Facility: [facility] Address: [address] [place] [address] Result Comment: [place] tomach, antrum, biopsy: - Reactive antra/pyloric type mucosa; see comment. B. Esophagus, biopsy at 32 cm: - Squamous and gastric mucosa with no pathologic diagnostic abnormality; negative for eosinophil esophagitis. C. Esophagus, biopsy at 25 cm: - Squamous and gastric mucosa with no pathologic diagnostic abnormality; negative for eosinophil esophagitis. Performed By: #### S ####[facility]ORATORYIA [id number] [address] LABCLIA [id number] [place] [address] [place] FINAL PERFORMING LAB Normal [facility] Comment on above: Order Comment: Speci men Type: TISSUE SPECIMENOrdering Facility: [facility] Address: [address] [place] [address] Result Comment: Diag nostic interpretation performed at [facility], [address] [address] CLIA# [id number] Co Director: Ziyad Lama M.D. Performed By: #### S ####[facility] LABORATORYCLIA [id number] [address] LABCLIA [id number] [address] [place] GROSS DESCRIPTION Normal [facility] Comment on above: Order Comment: Speci men Type: TISSUE SPECIMENOrdering Facility: [facility] Address: [address] [place] [address] Result Comment: A. S tomach, Antrum, Biopsy [...] in one cassette. Gross examination performed at [facility], [address] [place] [address] AMS July 02, 2023 12:33 PM Performed By: #### S ####[facility] LABORATORYCLIA [id number] [address] LABCLIA [id number] [address] [place] CNOVon 04-17-2024 CNOV Office Visit (THORMN ) ----- TASNEEM CAMARILLO ([id number]) 1975 F Date Time Provider Department 06/25/23 2:15 PM NICANOR FERRIS During your visit today, we recorded the following information about you: Temperature Pulse Respiration Blood pressure 97.4 degrees 58/minute 14/minute 94/46 Weight Height 63.4 kg 1.575 m Rachana Pham MD 07/24/2023 2:31 PM Signed [facility] THORACIC SURGERY OUTPATIENT CONSULT NOTE Tasneem Camarillo [id number] Requesting Provider: Self Thoracic Physician: Nicanor Ferris MD Chief Complaint: Epigastric pain Impression: 48 year old F with a history of bipolar disorder, hypertension, lap elena, and GERD with paraesophageal hernia s/p laparoscopic [...] DATE OF EXAM: Jun 25 2023 12:26PM [facility] 0541 - CT CHEST WO IVCON / [...] or thick (more content not included)... Normal [facility] CT CHEST WO IVCONon 06-25-19 CT CHEST WO IVCON * * *Final Report* * * DATE OF EXAM: Jun 25 2023 12:26PM [facility] 0541 - CT CHEST WO IVCON / [...] Recommendation: Consult to Lung Nodule Clinic - [id number] Time Frame: at the discretion of the clinical team. Comments: Follow-up for this incidentally detected lung nodule with PET/CT or Biopsy within 4 weeks, or Chest CT exam in 3 months is recommended. --END OF FINDING-- Extractions Technician: TARYN Transcribe Date/Time: Jun 25 2023 12:38P Dictated by : TALYA MCCORMACK MD This examination was interpreted and the report reviewed and electronically signed by: TALYA MCCORMACK MD on Jun 25 2023 12:44PM EST [id number] ACTIONABLE Invalid Interpretation Code [facility] CT Chest WO contraston 06-24 Radiology Result ACTIONABLE Abnormal [facility] 05-20-2023 JONATHAN Telephone (TANYA) ----- TASNEEM CAMARILLO ([id number]) 1975 F Date Time Provider Department 05/20/23 NICANOR FERRIS During your visit today, we recorded the following information about you: Liz Cho 05/20/2023 12:08 PM Signed Received a call back from [facility] in [place] on records requested (operative reports from 2013= Yefri fundoplication). Edith from the [facility] de[facility] was unable to fax the records because the pt last name didn't match. I called our patient and left a VM requesting a call back with that information to proceed with getting the records needed for the surgeon. [place] Environmental Safety Specialist Liz Cho 05/22/2023 8:55 AM Signed received outside 2013 operative note from [facility] ([facility]routing to NPM for review. Liz Hines Allergies As of [...] Encounter Status:Closed by DANIKA MARX on 05/22/23 [facility] Feliciano 05-19-2023 CNPN Telephone (THORMN) ----- TASNEEM CAMARILLO ([id number]) 1975 F Date Time Provider Department 05/19/23 NICANOR FERRIS During your visit today, we recorded the following information about you: Liz Cho 05/19/2023 9:52 AM Signed LOCAL PATIENT Received Fax from Ildefonso Simmons/ ANGELIA Cr is being referred to Nicanor Ferris M.D., Ph.D. by Malina Castaneda CNP Patient diagnosis/Reason for consult: Dysphagia Referral triage process explained: No Patient will receive a call from Thoracic NPM after triage review with surgeon to discuss any additional testing and/or consults that will be scheduled. Pt will then receive a call from our scheduling office for scheduling. Please call pt at [phone]. Patient was informed consultation could be at [facility] or Main [facility]: No Patient Registration: Registration complete/updated: no Insurance card(s) scanned in [facility] with in the past year: No Pt's [employer] is inactive. Ok to communicate to pt via [employer] not asked Medical Records: Records in [facility] (internal [facility] records): No Imaging in [facility] (internal [facility] records): No Care Everywhere [...] Simmons. Imaging will be received via In [facility] already Received: yes Imaging uploaded: Yes Waiting on additional: No. Missing (list): N/A Additional providers added to Care Teams: Yes Additional Notes/Comments: Enct routed to: Yes, Thoracic Scheduling office for registration and Yes, Thoracic NPM for triage Elana Brooks, JAGDISH 05/19/2023 2:23 PM Signed Thoracic Surgery Consultation - review of records for appointment scheduling Patient is being referred to Nicanor Ferris MD, PhD by for Epigastric Pain, Outside hospital records scanned Procedures: Yefri Fundoplication [place] op report 2013 [facility] ) - ask Blood Bank Supervisor to obtain Imaging CT (chest/abd requested) mri [...] Elana's tele Reminder sent to patient via [employer] Allergies As of Date: 05/19/2023 (Not on File) Date Reviewed: Never Reviewed Reason for Visit: External Referrals/resources [909] Appointment Confirmation [3505] Primary Visit Diagnosis:Epigastric abdominal pain [R10.13] Order(s):CT CHEST WO IVCON [[id number]] Order #: [id number] FUTURE CT ABDOMEN WO IVCON [[id number]] Order #: [id number] FUTURE enteric contrast (will be provided with radiology test)For CT Chest Abdomen WO order Administer, As Directed One Time Only, via Oral, Rectal, both Oral and Rectal, Enteric Tube, Stoma or Indwelling Catheter, Enteric Contrast as designated per enteric contrast guidelinesDisp: 1 EachRfl: 0 EGD DIAGNOSTIC [GI9] Order #: [id number] FUTURE Prescriptions as of 05/20/2023 - enteric [...] enteric contrast guidelines Cosign required by NICANOR FERRIS[[id number]] Encounter Status:Closed by ELANA COFFMAN on 05/19/23 Normal [facility] Physician Referralon 024 Physician Referral [id number]#1.00TIFF Normal [facility] Ambulatory Visit Summaryon 0 05-13-2023 Ambulatory Visit Summary TASNEEM CAMARILLO :1975 Visit Date:05/13/2023 Ambulatory Visit Instructions Your [...] AM EDT With: Malina Castaneda CNP Where: [facility] Invalid Interpretation Code Dysphagia [facility] Gastroenterology Office/Clin ic Noteon 05-13-2023 Gastroenterology Office/Clinic [...] previously evaluated 04/07/2023 following ED visit at [facility]. Previous review of outside record from outside ED from 03/30/2023 indicated patient with substernal/epigastric pain. Outside labs from 03/30/2023 revealed normal CBC, unremarkable CMP with exception of slightly elevated lipase of 88. Patient with history of gastritis. [facility] Outside record also indicated patient had previous CT abdomen/pelvis 03/24/2023 that revealed right lower lobe nodule and lung?patient to follow-up with PCP regarding, CT also revealed fatty liver and wall thickening of antrum. Patient was also evaluated in ED at [facility] 03/14/2023 and note indicated patient was evaluated for shortness of breath, chest pain, CKD, and abdominal pain. Patient with NSR on EKG and labs at that time revealed normal H&H, elevated BUN of 34, elevated creatinine of 1.4, normal LFTs. Patient was advised to follow-up with nephrology. Patient with history of Yefri fundoplication which was reportedly completed in [place]. Previous EGD 03/[address] Dee that [...] Yefri fundoplication which was reportedly completed in [place]. Previous EGD 03/2021 revealed normal esophagus?dilated, normal gastric mucosa, normal duodenum, evidence of intact fundoplication surgery. Educated regarding need of EGD to further evaluate wall thickening in antrum on recent CT- may be i (more content not included)... Normal [facility] Comment on above: Result Comment: Bryan moreira Signed By: Malina Castaneda CNP.juan\Date and Time Signed: 05/13/23 10:48 EST Patient [...] grapefruit, pineapple, and joseph. Vegetables Deep-fried vegetables. Mosotho fries. Any vegetables prepared with added fat. [...] reflux di (more content not included)... Normal [facility] Follow-Upon 05-07-2023 Follow-Up [id number] Ruddy Camarillo N 1975 F Date Provider Department Center 05/07/2023 VADIM KISER MP ORTHO MPORTHO No family history on file Level of Service:03073 [place] OFFICE/OUTPATIENT ESTABLISHED LOW MDM 20 MIN (GC) Reason for Visit and Comments: Follow-up [964558] Normal [facility] MRI Cholangiogram Pancreatog guille (mrcp)on 04-29-2023 MRI Cholangiogram Pancreatography (mrcp) Exam Date/Time: 04/28/2023 17:29 EST Reason for Exam: biliary dilation;Other (please specify) Report [facility] [phone] IMPRESSION: STATUS POST CHOLECYSTECTOMY. MILD BILIARY DUCTAL [...] Nunes M.D. Transcribed by: THAIS Technologist: TSERING [facility] Consent for Treatmenton 04-10 Consent for Treatment [id number]#1.00TIFF [facility] RAD - MRI Screening Formon 0 04-28-2023 RAD - MRI Screening Form [id number]#1.00TIFF [facility] Consent for Treatmenton 04-10 Consent for Treatment [id number]#1.00TIFF [facility] Postoperative Documentson Postoperative Documents [id number]#1.00TIFF [facility] XR Adult Swallowing Function w/ Videoon [...] mGy = 64.96 DAP = 2.50 Normal [facility] XR Esophaguson 04-23-2023 XR Esophagus Exam Date/Time: [...] THAIS Technologist: MARILYN Technical Comments Radiation Dose: selwyn Swift in mGy = 1011 DAP = 37.20 Normal [facility] Physician Orderon 04-18-2023 Physician Order [id number]#1.00TIFF [facility] Insurance Correspondenceon 0 04-17-2023 Insurance Correspondence [id number]#1.00TIFF [facility] Pre-Certification Formon Pre-Certification Form [id number]#1.00TIFF [facility] Consent for Treatmenton Consent for Treatment [id number]#1.00TIFF [facility] Consent for Treatmenton Consent for Treatment [id number]#1.00TIFF [facility] US Liveron 04-15-2023 US Liver Exam [...] Hendricks MD Transcribed by: THAIS Technologist: JADA Normal [facility] ED Note-Physicianon 04-08-19 24 ED Note-Physician [id number]#1.00TIFF [facility] ED Note-Physician [id number]#1.00TIFF [facility] ED Note-Physician [id number]#1.00TIFF [facility] Ambulatory Visit Summaryon 0 04-07-2023 Ambulatory [...] Schedule the Following Appointments Follow Up with Malina Castaneda CNP When: Within 1 to 2 [...] Dysphagia, pp_set_radiology_subspeci alty, Not Required, [facility] XR Esophagus, 04/23/23, Routine, Order for future visit, Transport Mode: Ambulatory, Reason: Dysphagia, Reason: K76.0, No, Fatty liver, pp_set_radiology_subspeci alty, Not Required, [facility] Medications What How Much When Why Instructions Changed famotidine (Pepcid 20 mg Tab) 1 Tablets By Mouth Once a day (at bedtime) Acid reflux Duration: 90 Days Pickup at [facility]/pharmacy #[id number] Unchanged acetaminophen-oxycodone (acetaminophen-oxycodone 325 mg-5 mg Tab) [...] or concerns Pharmacy Information [id number]: [address] [place], [place] [phone] Allergies Augmentin (Rash) SUMAtriptan (Heart racing or rapid heart rate, Unknown) metoclopramide (Unknown) sulfa drugs (Unknown) Problems Ongoing - Any problem that you are currently receiving treatment for. Abnormal CT scan Acid reflux Arthritis (more content not included)... Normal [facility] Consent for Procedure/Surger yon 04-07-2023 Consent for Procedure/Surgery [id number]#1.00TIFF Normal [facility] Gastroenterology Office/Clin ic Noteon 04-07-2023 Gastroenterology Office/Clinic [...] for further evaluation following ED visit at [facility]. Review of outside records indicates patient [...] revealed patient was evaluated in ED at [facility] 03/14/23 - evaluated by Dr. Pepper [...] Maicol fundoplication that was reportedly completed in [place]. Patient was previously ordered esophageal manometry, x-ray [...] Reportedly had previous colonoscopy in 2022 at [facility] that reportedly showed spasms in bowel- no [...] infection. Continu (more content not included)... Normal [facility] Comment on above: Result Comment: Elec tronically Signed By: Tonya GALAN, Malina Hopper\.br\Date and Time Signed: 04/07/23 11:21 EST Physician Referralon 024 Physician Referral [id number]#1.00TIFF Normal [facility] Alanine aminotransferase [En zymatic activity/volume] in Serum or PlasmaOrdered By: Zaheer Sanon on 03-30-2023 ALT [Catalytic activity/Vol] 19 U/L 7-52 [facility] Albumin [Mass/volume] in Ser um or Plasma by Bromocresol green (BCG) dye binding methoOrdered By: Zaheer Sanon on 03-30-2023 Albumin BCG dye [Mass/Vol] 4.6 g/dL 3.5-5.7 [facility] Alkaline phosphatase [Enzyma tic activity/volume] in Serum or PlasmaOrdered By: Zaheer Sanon on 03-30-2023 ALP [Catalytic activity/Vol] 70 U/L 34-104 [facility] Aspartate aminotransferase [ Enzymatic activity/volume] in Serum or PlasmaOrdered By: Zaheer Sanon on 03-30-2023 AST [Catalytic activity/Vol] 29 U/L 13-39 [facility] Basophils Auto (Bld) [#/Vol] Ordered By: Zaheer Sanon on 03-30-2023 Basophils (Bld) [#/Vol] 0.1 10*3/uL 0.0-0.2 [facility] Basophils/100 WBC Auto (Bld) Ordered By: Zaheer Sanon on 03-30-2023 Basophils/100 WBC (Bld) 1.3 % . [facility] Bilirubin Test strip Ql (U)O rdered By: Zaheer Sanon on 03-30-2023 Bilirubin Ql (U) Negative Negative [facility] Bilirubin.total [Mass/volume ] in Serum or PlasmaOrdered By: Zaheer Sanon on 03-30-2023 Bilirubin [Mass/Vol] 0.9 mg/dL 0.3-1.0 [facility] Calcium [Mass/volume] in Ser um or PlasmaOrdered By: Zaheer Sanon on 03-30-2023 Calcium [Mass/Vol] 9.1 mg/dL 8.6-10.3 [facility] Carbon dioxide, total [Moles /volume] in Serum or PlasmaOrdered By: Zaheer Sanon on 03-30-2023 CO2 [Moles/Vol] 29.8 mmol/L 21.0-31.0 [facility] Chloride [Moles/volume] in S kaur or PlasmaOrdered By: Zaheer Sanon on 03-30-2023 Chloride [Moles/Vol] 101 mmol/L 98-107 [facility] Color Auto (U)Ordered By: Robyn Sanon on 03-30-2023 Color (U) Yellow Yellow [facility] Complete Blood Count Auto Di ffon 03-30-2023 Basophils (Bld) [#/Vol] 0.1 10*3/uL Normal 0.0-0.2 [facility] Comment on above: Result Comment: PERF ORMED BY: [facility] [address] [place] [address] PATHOLOGIST HARVEST WORKER JESSICA LYN M.D. Performed By: #### C BC, LIPASE, CMP ####[place] [address] [place] [id number] [place] Basophils/100 WBC (Bld) 1.3 % Normal . [facility] Comment on above: Performed By: #### C BC, LIPASE, CMP ####[facility] [place] [phone] [place] Eosinophils (Bld) [#/Vol] 0.2 10*3/uL Normal 0.0-0.45 [facility] Comment on above: Performed By: #### C BC, LIPASE, CMP ####[place] [address] [place] [phone] [place] Eosinophils/100 WBC (Bld) 3.7 % Normal . [facility] Comment on above: Performed By: #### C BC, LIPASE, CMP ####[address] Erythrocyte distribution width (RBC) [Ratio] 14.6 % Normal 11.9-15.3 [facility] Comment on above: Performed By: #### C BC, LIPASE, CMP ####[address] Hematocrit (Bld) [Volume fraction] 38.6 % Normal 34.0-46.4 [facility] Comment on above: Performed By: #### C BC, LIPASE, CMP ####[address] Hemoglobin (Bld) [Mass/Vol] 12.9 g/dL Normal 11.8-15.4 [facility] Comment on above: Performed By: #### C BC, LIPASE, CMP ####[address] Lymphocytes (Bld) [#/Vol] 3.1 10*3/uL Normal 1.00-4.8 [facility] Comment on above: Performed By: #### C BC, LIPASE, CMP ####[address] Lymphocytes/100 WBC (Bld) 47.8 % Normal . [facility] Comment on above: Performed By: #### C BC, LIPASE, CMP ####[address] MCH (RBC) [Entitic mass] 30.3 pg Normal 24.7-34.3 [facility] Comment on above: Performed By: #### C BC, LIPASE, CMP ####[address] MCV (RBC) [Entitic vol] 91.0 fL Normal 80-100 [facility] Comment on above: Performed By: #### C BC, LIPASE, CMP ####[address] Mean Corpuscular HGB Conc 33.3 g/dL Normal 32.0-35.0 [facility] Comment on above: Performed By: #### C BC, LIPASE, CMP ####[address] Monocytes (Bld) [#/Vol] 0.7 10*3/uL Normal 0.0-0.8 [facility] Comment on above: Performed By: #### C BC, LIPASE, CMP ####[address] Monocytes/100 WBC (Bld) 16.77 % Normal 0.00-20.00 [facility] Comment on above: Performed By: #### C BC, LIPASE, CMP ####[address] Monocytes/100 WBC (Bld) 10.1 % Normal . [facility] Comment on above: Performed By: #### C BC, LIPASE, CMP ####[address] Neutrophils (Bld) [#/Vol] 2.4 10*3/uL Normal 1.8-7.7 [facility] Comment on above: Performed By: #### C BC, LIPASE, CMP ####[place] [id number] [facility] Neutrophils/100 WBC (Bld) 37.1 % Normal . [facility] Comment on above: Performed By: #### C BC, LIPASE, CMP ####[address] NRBC% 0.1 /100{WBC} Normal 0-0.5 [facility] Comment on above: Performed By: #### C BC, LIPASE, CMP ####[place] [id number] [facility] Platelet mean volume (Bld) [Entitic vol] 8.8 fL Normal 6.3-10.7 [facility] Comment on above: Performed By: #### C BC, LIPASE, CMP ####[place] [id number] [facility] Platelets (Bld) [#/Vol] 338 10*3/uL Normal 150-450 [facility] Comment on above: Performed By: #### C BC, LIPASE, CMP ####[address] RBC (Bld) [#/Vol] 4.24 10*6/uL Normal 3.60-5.00 [facility] Comment on above: Performed By: #### C BC, LIPASE, CMP ####[place] [id number] [facility] WBC (Bld) [#/Vol] 6.4 10*3/uL Normal 3.8-11.6 [facility] Comment on above: Performed By: #### C BC, LIPASE, CMP ####[address] Comprehensive Metabolic Pane aidee 03-30-2023 Albumin [Mass/Vol] 4.6 g/dL Normal 3.5-5.7 [facility] Comment on above: Performed By: #### C BC, LIPASE, CMP ####[address] Albumin/Globulin [Mass ratio] 1.5 {ratio} Normal [facility] Comment on above: Performed By: #### C BC, LIPASE, CMP ####[place] [id number] [facility] ALP [Catalytic activity/Vol] 70 U/L Normal 34-104 [facility] Comment on above: Performed By: #### C BC, LIPASE, CMP ####[place] [id number] [facility] ALT [Catalytic activity/Vol] 19 U/L Normal 7-52 [facility] Comment on above: Performed By: #### C BC, LIPASE, CMP ####[place] [id number] [facility] Anion gap [Moles/Vol] 11.4 mmol/L Normal 6.0-15.0 [facility] Comment on above: Performed By: #### C BC, LIPASE, CMP ####[place] [id number] [facility] AST [Catalytic activity/Vol] 29 U/L Normal 13-39 [facility] Comment on above: Performed By: #### C BC, LIPASE, CMP ####[place] [id number] [facility] Bilirubin [Mass/Vol] 0.9 mg/dL Normal 0.3-1.0 [facility] Comment on above: Performed By: #### C BC, LIPASE, CMP ####[address] Calcium [Mass/Vol] 9.1 mg/dL Normal 8.6-10.3 [facility] Comment on above: Performed By: #### C BC, LIPASE, CMP ####[address] Chloride [Moles/Vol] 101 mmol/L Normal 98-107 [facility] Comment on above: Performed By: #### C BC, LIPASE, CMP ####[address] CO2 [Moles/Vol] 29.8 mmol/L Normal 21.0-31.0 [facility] Comment on above: Performed By: #### C BC, LIPASE, CMP ####[place] [id number] [facility] Creatinine [Mass/Vol] 1.76 mg/dL High 0.60-1.20 [facility] Comment on above: Performed By: #### C BC, LIPASE, CMP ####[place] [id number] [facility] Creatinine Clr Calc Pharmacy 34.34 Normal [facility] Comment on above: Performed By: #### C BC, LIPASE, CMP ####[place] [id number] [facility] GFR/1.73 sq M.predicted MDRD (S/P/Bld) [Vol rate/Area] 35.044 mL/min/{1.73_m2} Normal [facility] Comment on above: Performed By: #### C BC, LIPASE, CMP ####[address] Globulin (S) [Mass/Vol] 3.0 g/dL [facility] Comment on above: Performed By: #### C BC, LIPASE, CMP ####[address] Glucose [Mass/Vol] 67 mg/dL Low 70-100 [facility] Comment on above: Result Comment: [facility] Glucose Reference Range is dependent on time and content of last meal. Glucose of more than 200 mg/dL in a nonstressed, ambulatory subject supports the diagnosis of Diabetes Mellitus. ADA recommended reference range Performed By: #### C BC, LIPASE, CMP ####[address] Potassium [Moles/Vol] 3.2 mmol/L Low 3.5-5.1 [facility] Comment on above: Performed By: #### C BC, LIPASE, CMP ####[place] [id number] [facility] Protein [Mass/Vol] 7.6 g/dL Normal 6.4-8.9 [facility] Comment on above: Performed By: #### C BC, LIPASE, CMP ####[place] [id number] [facility] Sodium [Moles/Vol] 139 mmol/L Normal 136-145 [facility] Comment on above: Performed By: #### C BC, LIPASE, CMP ####[place] [id number] [facility] Urea nitrogen [Mass/Vol] 21 mg/dL Normal 7-25 [facility] Comment on above: Performed By: #### C BC, LIPASE, CMP ####[place] [id number] [facility] Creatinine [Mass/volume] in Serum or PlasmaOrdered By: Zaheer Sanon on 03-30-2023 Creatinine [Mass/Vol] 1.76 mg/dL 0.60-1.20 [facility] Eosinophils Auto (Bld) [#/Vo l]Ordered By: Zaheer Sanon on 03-30-2023 Eosinophils (Bld) [#/Vol] 0.2 10*3/uL 0.0-0.45 [facility] Eosinophils/100 WBC Auto (Bl d)Ordered By: Zaheer Sanon on 03-30-2023 Eosinophils/100 WBC (Bld) 3.7 % . [facility] Erythrocyte distribution wid th Auto (RBC) [Ratio]Ordered By: Zaheer Sanon on 03-30-2023 Erythrocyte distribution width (RBC) [Ratio] 14.6 % 11.9-15.3 [facility] Globulin Calc (S) [Mass/Vol] Ordered By: Zaheer Sanon on 03-30-2023 Globulin (S) [Mass/Vol] 3.0 g/dL [facility] Glucose [Mass/volume] in Ser um or PlasmaOrdered By: Zaheer Sanon on 03-30-2023 Glucose [Mass/Vol] 67 mg/dL 70-100 [facility] Comment on above: ADA recommended refe rence rangeRandom Glucose Reference Range is dependent on time and content of last meal. Glucose of more than 200 mg/dL in a nonstressed, ambulatory subject supports the diagnosis of Diabetes Mellitus. Hematocrit Auto (Bld) [Volum e fraction]Ordered By: Zaheer Sanon on 03-30-2023 Hematocrit (Bld) [Volume fraction] 38.6 % 34.0-46.4 [facility] Hemoglobin [Mass/volume] in BloodOrdered By: Zaheer Sanon on 03-30-2023 Hemoglobin (Bld) [Mass/Vol] 12.9 g/dL 11.8-15.4 [facility] Ketones Auto test strip (U) [Mass/Vol]Ordered By: Zaheer Sanon on 03-30-2023 Ketones (U) [Mass/Vol] Negative Negative [facility] Leukocytes [#/volume] correc dieudonne for nucleated erythrocytes in Blood by Automated counOrdered By: Zaheer Sanon on 03-30-2023 WBC corrected for nucl RBC Auto (Bld) [#/Vol] 6.4 10*3/uL 3.8-11.6 [facility] Lipaseon 03-30-2023 Lipase [Catalytic activity/Vol] 88.0 U/L High 11.0-82.0 [facility] Comment on above: Result Comment: PERF ORMED BY: [facility] [address] [place] [address] PATHOLOGIST HARVEST WORKER JESSICA LYN M.D. Performed By: #### C BC, LIPASE, CMP ####[facility] [place] [address] [facility] Lipase [Enzymatic activity/v olume] in Serum or PlasmaOrdered By: Zaheer Sanon on 03-30-2023 Lipase [Catalytic activity/Vol] 88.0 U/L 11.0-82.0 [facility] Lymphocytes Auto (Bld) [#/Vo l]Ordered By: Zaheer Sanon on 03-30-2023 Lymphocytes (Bld) [#/Vol] 3.1 10*3/uL 1.00-4.8 [facility] Lymphocytes/100 WBC Auto (Bl d)Ordered By: Zaheer Sanon on 03-30-2023 Lymphocytes/100 WBC (Bld) 47.8 % . [facility] MCH Auto (RBC) [Entitic mass ]Ordered By: Zaheer Sanon on 03-30-2023 MCH (RBC) [Entitic mass] 30.3 pg 24.7-34.3 [facility] MCHC Auto (RBC) [Mass/Vol]Or dered By: Zaheer Sanon on 03-30-2023 MCHC (RBC) [Mass/Vol] 33.3 g/dL 32.0-35.0 [facility] MCV Auto (RBC) [Entitic vol] Ordered By: Zaheer Sanon on 03-30-2023 MCV (RBC) [Entitic vol] 91.0 fL 80-100 [facility] Monocyte distribution width [Entitic volume] in Blood by AutomatedOrdered By: Zaheer Sanon on 03-30-2023 Monocyte distribution width Auto (Bld) [Entitic vol] 16.77 % 0.00-20.00 [facility] Monocytes Auto (Bld) [#/Vol] Ordered By: Zaheer Sanon on 03-30-2023 Monocytes (Bld) [#/Vol] 0.7 10*3/uL 0.0-0.8 [facility] Monocytes/100 WBC Auto (Bld) Ordered By: Zaheer Sanon on 03-30-2023 Monocytes/100 WBC (Bld) 10.1 % . [facility] Neutrophils Auto (Bld) [#/Vo l]Ordered By: Zaheer Sanon on 03-30-2023 Neutrophils (Bld) [#/Vol] 2.4 10*3/uL 1.8-7.7 [facility] Neutrophils/100 WBC Auto (Bl d)Ordered By: Zaheer Sanon on 03-30-2023 Neutrophils/100 WBC (Bld) 37.1 % . [facility] Nitrite Test strip Ql (U)Ord ered By: Zaheer Sanon on 03-30-2023 Nitrite Ql (U) Negative Negative [facility] No Panel InformationOrdered By: Zaheer Sanon on 03-30-2023 Estimated GFR (CKD-EPI) 35.044 mL/Min [facility] Creatinine Clearance (Chem 34.34 [facility] Nucleated erythrocytes [Pres ence] in Blood by Automated countOrdered By: Zaheer Sanon on 03-30-2023 Nucleated RBC Auto Ql (Bld) 0.1 /100{WBC} 0-0.5 [facility] Platelet mean volume Auto (B ld) [Entitic vol]Ordered By: Zaheer Sanon on 03-30-2023 Platelet mean volume (Bld) [Entitic vol] 8.8 fL 6.3-10.7 [facility] Platelets Auto (Bld) [#/Vol] Ordered By: Zaheer Sanon on 03-30-2023 Platelets (Bld) [#/Vol] 338 10*3/uL 150-450 [facility] Potassium [Moles/volume] in Serum or PlasmaOrdered By: Zaheer Sanon on 03-30-2023 Potassium [Moles/Vol] 3.2 mmol/L 3.5-5.1 [facility] Protein Auto test strip (U) [Mass/Vol]Ordered By: Zaheer Sanon on 03-30-2023 Protein (U) [Mass/Vol] Negative Negative [facility] Protein [Mass/volume] in Ser um or PlasmaOrdered By: Zaheer Sanon on 03-30-2023 Protein [Mass/Vol] 7.6 g/dL 6.4-8.9 [facility] RBC Auto (Bld) [#/Vol]Ordere d By: Zaheer Sanon on 03-30-2023 RBC (Bld) [#/Vol] 4.24 10*6/uL 3.60-5.00 [facility] Serum or plasma albumin/glob ulin mass ratioOrdered By: Zaheer Sanon on 03-30-2023 Albumin/Globulin [Mass ratio] 1.5 {ratio} [facility] Serum or plasma anion gap de terminationOrdered By: Zaheer Sanon on 03-30-2023 Anion gap [Moles/Vol] 11.4 mmol/L 6.0-15.0 [facility] Sodium [Moles/volume] in Ser um or PlasmaOrdered By: Zaheer Sanon on 03-30-2023 Sodium [Moles/Vol] 139 mmol/L 136-145 [facility] Specific gravity Auto test s trip (U) [Rel density]Ordered By: Zaheer Sanon on 03-30-2023 Specific gravity (U) [Rel density] 1.006 1.001-1.03 0 [facility] Urea nitrogen [Mass/volume] in Serum or PlasmaOrdered By: Zaheer Sanon on 03-30-2023 Urea nitrogen [Mass/Vol] 21 mg/dL 7-25 [facility] Urinalysison 03-30-2023 Appearance (U) Clear Normal Clear [facility] Comment on above: Order Comment: Name Collection Type:: Clean-Voided Midstream Performed By: #### U A ####[address] Bilirubin,Urine Negative Normal Negative [facility] Comment on above: Order Comment: Name Collection Type:: Clean-Voided Midstream Performed By: #### U A ####[place] [address] [address] Color (U) Yellow Normal Yellow [facility] Comment on above: Order Comment: Name Collection Type:: Clean-Voided Midstream Performed By: #### U A ####[address] [place] [address] [facility] Glucose Ql (U) Normal Normal Normal [facility] Comment on above: Order Comment: Name Collection Type:: Clean-Voided Midstream Performed By: #### U A ####[address] [address] [facility] Ketones Ql (U) Negative Normal Negative [facility] Comment on above: Order Comment: Name Collection Type:: Clean-Voided Midstream Performed By: #### U A ####[address] [address] [facility] Leukocyte esterase Test strip Ql (U) Negative Normal Negative [facility] Comment on above: Order Comment: Name Collection Type:: Clean-Voided Midstream Performed By: #### U A ####[place] [id number] [facility] Nitrite,Urine Negative Normal Negative [facility] Comment on above: Order Comment: Name Collection Type:: Clean-Voided Midstream Performed By: #### U A ####[address] [address] [facility] Occult Blood,Urine Negative Normal Negative [facility] Comment on above: Order Comment: Name Collection Type:: Clean-Voided Midstream Result Comment: PERF ORMED BY: [facility] [address] [place] [address] PATHOLOGIST [employer]VE[employer] WORKER JESSICA LYN M.D. Performed By: #### U A ####[address] [address] [facility] pH (U) 5.5 [pH] Normal 5.0-9.0 [facility] Comment on above: Order Comment: Name Collection Type:: Clean-Voided Midstream Performed By: #### U A ####[address] [address] [facility] Protein,Urine Negative Normal Negative [facility] Comment on above: Order Comment: Name Collection Type:: Clean-Voided Midstream Performed By: #### U A ####[place] [id number] [facility] Specificy [place],Urine 1.006 Normal 1.001-1.03 0 [facility] Comment on above: Order Comment: Name Collection Type:: Clean-Voided Midstream Performed By: #### U A ####[facility] [id number] [place] [address] [facility] Urobilinogen,Urine Normal Normal Normal [facility] Comment on above: Order Comment: Name Collection Type:: Clean-Voided Midstream Performed By: #### U A ####[facility] [id number] [place] [address] [facility] Urine clarity by refractomet ry automatedOrdered By: Zaheer Sanon on 03-30-2023 Clarity Refractometry automated (U) Clear Clear [facility] Urine glucose measurement by automated test strip (mass/volume)Ordered By: Zaheer Sanon on 03-30-2023 Glucose Auto test strip (U) [Mass/Vol] Normal mg/dL Normal [facility] Urine hemoglobin detection b y automated test stripOrdered By: Zaheer Sanon on 03-30-2023 Hemoglobin Auto test strip Ql (U) Negative Negative [facility] Urine leukocyte esterase det ection by automated test stripOrdered By: Zaheer Sanon on 03-30-2023 Leukocyte esterase Auto test strip Ql (U) Negative Negative [facility] Urobilinogen Auto test strip (U) [Mass/Vol]Ordered By: Zaheer Sanon on 03-30-2023 Urobilinogen (U) [Mass/Vol] Normal mg/dL Normal [facility] WBC Auto (Bld) [#/Vol]Ordere d By: Zaheer Sanon on 03-30-2023 WBC (Bld) [#/Vol] 6.4 10*3/uL 3.8-11.6 [facility] pH Auto test strip (U)Ordere d By: Zaheer Sanon on 03-30-2023 pH (U) 5.5 [pH] 5.0-9.0 [facility] Activated partial thrombopla stin time (aPTT) in platelet poor plasma by coagulation aOrdered By: Tad Barger on 03-24-2023 aPTT Coag (PPP) [Time] 29.2 s 25.1-36.5 [facility] Comment on above: A hematocrit value g reater than 55% may lead to inaccurate results in coagulation testing. Patients having hematocrit values >55% require a special collection tube for coagulation studies. Please contact the laboratory at [phone] for redraw instructions. Alanine aminotransferase [En zymatic activity/volume] in Serum or PlasmaOrdered By: Tad Barger on 03-24-2023 ALT [Catalytic activity/Vol] 17 U/L 7-52 [facility] Albumin [Mass/volume] in Ser um or Plasma by Bromocresol green (BCG) dye binding methoOrdered By: Tad Barger on 03-24-2023 Albumin BCG dye [Mass/Vol] 4.0 g/dL 3.5-5.7 [facility] Alkaline phosphatase [Enzyma tic activity/volume] in Serum or PlasmaOrdered By: Tad Barger on 03-24-2023 ALP [Catalytic activity/Vol] 61 U/L 34-104 [facility] Aspartate aminotransferase [ Enzymatic activity/volume] in Serum or PlasmaOrdered By: Tad Barger on 03-24-2023 AST [Catalytic activity/Vol] 28 U/L 13-39 [facility] B-Type Natriuretic Peptideon 03-24-2023 Natriuretic peptide B (Bld) [Mass/Vol] 244.0 pg/mL High 5-100 [facility] Comment on above: Result Comment: PERF ORMED BY: [place] [address] PATHOLOGIST [employer]VE[employer] WORKER JESSICA LYN M.D. Performed By: #### P T, CBC, PTT, BMP, HEPATIC, CK, LIPASE, BNP, HS TROP #### [facility] [address] [place] [address] Basic Metabolic Panelon 03-10 Anion gap [Moles/Vol] 8.7 mmol/L Normal 6.0-15.0 [facility] Comment on above: Performed By: #### P T, CBC, PTT, BMP, HEPATIC, CK, LIPASE, BNP, HS TROP #### [facility] [address] [place] [address] [place] Calcium [Mass/Vol] 9.3 mg/dL Normal 8.6-10.3 [facility] Comment on above: Performed By: #### P T, CBC, PTT, BMP, HEPATIC, CK, LIPASE, BNP, HS TROP #### [facility] [address] Chloride [Moles/Vol] 109 mmol/L High 98-107 [facility] Comment on above: Performed By: #### P T, CBC, PTT, BMP, HEPATIC, CK, LIPASE, BNP, HS TROP #### [facility] [address] CO2 [Moles/Vol] 27.1 mmol/L Normal 21.0-31.0 [facility] Comment on above: Performed By: #### P T, CBC, PTT, BMP, HEPATIC, CK, LIPASE, BNP, HS TROP #### [address] Creatinine [Mass/Vol] 1.23 mg/dL High 0.60-1.20 [facility] Comment on above: Performed By: #### P T, CBC, PTT, BMP, HEPATIC, CK, LIPASE, BNP, HS TROP #### [address] Creatinine Clr Calc Pharmacy 49.35 [facility] Comment on above: Performed By: #### P T, CBC, PTT, BMP, HEPATIC, CK, LIPASE, BNP, HS TROP #### [address] GFR/1.73 sq M.predicted MDRD (S/P/Bld) [Vol rate/Area] 53.870 mL/min/{1.73_m2} [facility] Comment on above: Performed By: #### P T, CBC, PTT, BMP, HEPATIC, CK, LIPASE, BNP, HS TROP #### [address] Glucose [Mass/Vol] 51 mg/dL Low 70-100 [facility] Comment on above: Result Comment: [facility] Glucose Reference Range is dependent on time and content of last meal. Glucose of more than 200 mg/dL in a nonstressed, ambulatory subject supports the diagnosis of Diabetes Mellitus. ADA recommended reference range Performed By: #### P T, CBC, PTT, BMP, HEPATIC, CK, LIPASE, BNP, HS TROP #### [facility] [address] Potassium [Moles/Vol] 3.8 mmol/L Normal 3.5-5.1 [facility] Comment on above: Performed By: #### P T, CBC, PTT, BMP, HEPATIC, CK, LIPASE, BNP, HS TROP #### [facility] [address] Sodium [Moles/Vol] 141 mmol/L Normal 136-145 [facility] Comment on above: Performed By: #### P T, CBC, PTT, BMP, HEPATIC, CK, LIPASE, BNP, HS TROP #### [facility] [address] Urea nitrogen [Mass/Vol] 23 mg/dL Normal 7-25 [facility] Comment on above: Performed By: #### P T, CBC, PTT, BMP, HEPATIC, CK, LIPASE, BNP, HS TROP #### [facility] [address] Basophils Auto (Bld) [#/Vol] Ordered By: Tad Barger on 03-24-2023 Basophils (Bld) [#/Vol] 0.1 10*3/uL 0.0-0.2 [facility] Basophils/100 WBC Auto (Bld) Ordered By: Tad Barger on 03-24-2023 Basophils/100 WBC (Bld) 0.9 % . [facility] Bilirubin Auto test strip Ql (U)Ordered By: Tad Barger on 03-24-2023 Bilirubin Ql (U) Negative Negative [facility] Bilirubin.direct [Mass/volum e] in Serum or PlasmaOrdered By: Tad Barger on 03-24-2023 Bilirubin.direct [Mass/Vol] 0.10 mg/dL 0.03-0.18 [facility] Bilirubin.total [Mass/volume ] in Serum or PlasmaOrdered By: Tad Barger on 03-24-2023 Bilirubin [Mass/Vol] 0.8 mg/dL 0.3-1.[address] [facility] [address] abdomen pelvis w conon CT abdomen pelvis w con [facility] [address] [place] [id number] Scan Report Signed Patient: Tasneem [place] MR#: [id number] 477 : 1975 Acct:[id number] Age/Sex: 48 / F ADM Date: 03/24/23 Loc: ER Room: Type: [facility] ER Attending Dr: Copies to: Tad Barger [...] Bryanna Mitchell M.D.03/24/2023 2:33 PM Dictation Location: [place] [address] Transcribed By: [facility] 03/24/23 1433 Dictated By: Bryanna Mitchell MD 03/24/23 1420 Signed By: 03/24/23 1433 Normal [facility] Calcium [Mass/volume] in Ser um or PlasmaOrdered By: Tad Barger on 03-24-2023 Calcium [Mass/Vol] 9.3 mg/dL 8.6-10.3 [facility] Carbon dioxide, total [Moles /volume] in Serum or PlasmaOrdered By: Tad Barger on 03-24-2023 CO2 [Moles/Vol] 27.1 mmol/L 21.0-31.0 [facility] Chloride [Moles/volume] in S kaur or PlasmaOrdered By: Tad Barger on 03-24-2023 Chloride [Moles/Vol] 109 mmol/L 98-107 [facility] Complete Blood Count Auto Di ffon 03-24-2023 Basophils (Bld) [#/Vol] 0.1 10*3/uL Normal 0.0-0.2 [facility] Comment on above: Result Comment: PERF ORMED BY: [place] [address] PATHOLOGIST [employer]VE[employer] WORKER JESSICA LYN M.D. Performed By: #### P T, CBC, PTT, BMP, HEPATIC, CK, LIPASE, BNP, HS TROP #### [facility] [address] [place] [address] Basophils/100 WBC (Bld) 0.9 % Normal . [facility] Comment on above: Performed By: #### P T, CBC, PTT, BMP, HEPATIC, CK, LIPASE, BNP, HS TROP #### [facility] [address] [place] [address] Eosinophils (Bld) [#/Vol] 0.2 10*3/uL Normal 0.0-0.45 [facility] Comment on above: Performed By: #### P T, CBC, PTT, BMP, HEPATIC, CK, LIPASE, BNP, HS TROP #### [address] Eosinophils/100 WBC (Bld) 3.1 % Normal . [facility] Comment on above: Performed By: #### P T, CBC, PTT, BMP, HEPATIC, CK, LIPASE, BNP, HS TROP #### [address] Erythrocyte distribution width (RBC) [Ratio] 14.1 % Normal 11.9-15.3 [facility] Comment on above: Performed By: #### P T, CBC, PTT, BMP, HEPATIC, CK, LIPASE, BNP, HS TROP #### [address] Hematocrit (Bld) [Volume fraction] 36.1 % Normal 34.0-46.4 [facility] Comment on above: Performed By: #### P T, CBC, PTT, BMP, HEPATIC, CK, LIPASE, BNP, HS TROP #### [address] Hemoglobin (Bld) [Mass/Vol] 12.1 g/dL Normal 11.8-15.4 [facility] Comment on above: Performed By: #### P T, CBC, PTT, BMP, HEPATIC, CK, LIPASE, BNP, HS TROP #### [address] Lymphocytes (Bld) [#/Vol] 3.2 10*3/uL Normal 1.00-4.8 [facility] Comment on above: Performed By: #### P T, CBC, PTT, BMP, HEPATIC, CK, LIPASE, BNP, HS TROP #### [address] Lymphocytes/100 WBC (Bld) 48.5 % Normal . [facility] Comment on above: Performed By: #### P T, CBC, PTT, BMP, HEPATIC, CK, LIPASE, BNP, HS TROP #### [address] MCH (RBC) [Entitic mass] 30.6 pg Normal 24.7-34.3 [facility] Comment on above: Performed By: #### P T, CBC, PTT, BMP, HEPATIC, CK, LIPASE, BNP, HS TROP #### [address] MCV (RBC) [Entitic vol] 90.9 fL Normal 80-100 [facility] Comment on above: Performed By: #### P T, CBC, PTT, BMP, HEPATIC, CK, LIPASE, BNP, HS TROP #### [address] Mean Corpuscular HGB Conc 33.7 g/dL Normal 32.0-35.0 [facility] Comment on above: Performed By: #### P T, CBC, PTT, BMP, HEPATIC, CK, LIPASE, BNP, HS TROP #### [address] Monocytes (Bld) [#/Vol] 0.7 10*3/uL Normal 0.0-0.8 [facility] Comment on above: Performed By: #### P T, CBC, PTT, BMP, HEPATIC, CK, LIPASE, BNP, HS TROP #### [address] Monocytes/100 WBC (Bld) 16.57 % Normal 0.00-20.00 [facility] Comment on above: Performed By: #### P T, CBC, PTT, BMP, HEPATIC, CK, LIPASE, BNP, HS TROP #### [address] Monocytes/100 WBC (Bld) 10.9 % Normal . [facility] Comment on above: Performed By: #### P T, CBC, PTT, BMP, HEPATIC, CK, LIPASE, BNP, HS TROP #### [address] Neutrophils (Bld) [#/Vol] 2.4 10*3/uL Normal 1.8-7.7 [facility] Comment on above: Performed By: #### P T, CBC, PTT, BMP, HEPATIC, CK, LIPASE, BNP, HS TROP #### [facility] [address] Neutrophils/100 WBC (Bld) 36.6 % Normal . [facility] Comment on above: Performed By: #### P T, CBC, PTT, BMP, HEPATIC, CK, LIPASE, BNP, HS TROP #### [facility] [address] NRBC% 0.0 /100{WBC} Normal 0-0.5 [facility] Comment on above: Performed By: #### P T, CBC, PTT, BMP, HEPATIC, CK, LIPASE, BNP, HS TROP #### [facility] [address] Platelet mean volume (Bld) [Entitic vol] 8.5 fL Normal 6.3-10.7 [facility] Comment on above: Performed By: #### P T, CBC, PTT, BMP, HEPATIC, CK, LIPASE, BNP, HS TROP #### [facility] [address] Platelets (Bld) [#/Vol] 272 10*3/uL Normal 150-450 [facility] Comment on above: Performed By: #### P T, CBC, PTT, BMP, HEPATIC, CK, LIPASE, BNP, HS TROP #### [facility] [address] [place] [address] [place] RBC (Bld) [#/Vol] 3.97 10*6/uL Normal 3.60-5.00 [facility] Comment on above: Performed By: #### P T, CBC, PTT, BMP, HEPATIC, CK, LIPASE, BNP, HS TROP #### [facility] [address] WBC (Bld) [#/Vol] 6.6 10*3/uL Normal 3.8-11.6 [facility] Comment on above: Performed By: #### P T, CBC, PTT, BMP, HEPATIC, CK, LIPASE, BNP, HS TROP #### [facility] [address] [place] [id number] [facility] Creatine Kinaseon 03-24-2023 CK [Catalytic activity/Vol] 279 U/L High [facility] Comment on above: Performed By: #### P T, CBC, PTT, BMP, HEPATIC, CK, LIPASE, BNP, HS TROP #### [facility] [address] [place] [id number] [facility] Creatine kinase [Enzymatic a ctivity/volume] in Serum or PlasmaOrdered By: Tad Barger on 03-24-2023 CK [Catalytic activity/Vol] 279 U/L [facility] Creatinine [Mass/volume] in Serum or PlasmaOrdered By: Tad Barger on 03-24-2023 Creatinine [Mass/Vol] 1.23 mg/dL 0.60-1.20 [facility] ECG 12 lead ECGon 03-24-2023 ECG 12 lead ECG [facility] [employer] [address] [place] [address] Electrocardiograph Report Signed Patient: Tasneem [place]ar[place] MR#: [id number] 477 : 1975 Acct:[id number] Age/Sex: 48 / F ADM Date: 03/24/23 Loc: ER Room: Type: [facility] ER Attending Dr: Ordering Provider: Tad Barger [...] Anterolateral leads Confirmed by Tad Barger DO ([id number]) on 03/24/2023 3:12:48 PM Referred By: Electronically Signed By:Tad Barger DO Transcribed By: MUS Signed By Tad Barger DO 4 1512 Normal [facility] Eosinophils Auto (Bld) [#/Vo l]Ordered By: Tad Barger on 03-24-2023 Eosinophils (Bld) [#/Vol] 0.2 10*3/uL 0.0-0.45 [facility] Eosinophils/100 WBC Auto (Bl d)Ordered By: Tad Barger on 03-24-2023 Eosinophils/100 WBC (Bld) 3.1 % . [facility] Erythrocyte distribution wid th Auto (RBC) [Ratio]Ordered By: Tad Barger on 03-24-2023 Erythrocyte distribution width (RBC) [Ratio] 14.1 % 11.9-15.3 [facility] Globulin Calc (S) [Mass/Vol] Ordered By: Tad Barger on 03-24-2023 Globulin (S) [Mass/Vol] 2.9 g/dL [facility] Glucose [Mass/volume] in Ser um or PlasmaOrdered By: Tad Barger on 03-24-2023 Glucose [Mass/Vol] 51 mg/dL 70-100 [facility] Comment on above: ADA recommended refe rence rangeRandom Glucose Reference Range is dependent on time and content of last meal. Glucose of more than 200 mg/dL in a nonstressed, ambulatory subject supports the diagnosis of Diabetes Mellitus. Hematocrit Auto (Bld) [Volum e fraction]Ordered By: Tad Barger on 03-24-2023 Hematocrit (Bld) [Volume fraction] 36.1 % 34.0-46.4 [facility] Hemoglobin [Mass/volume] in BloodOrdered By: Tad Barger on 03-24-2023 Hemoglobin (Bld) [Mass/Vol] 12.1 g/dL 11.8-15.4 [facility] Hepatic Panelon 03-24-2023 Albumin [Mass/Vol] 4.0 g/dL Normal 3.5-5.7 [facility] Comment on above: Performed By: #### P T, CBC, PTT, BMP, HEPATIC, CK, LIPASE, BNP, HS TROP #### [facility] [address] [place] [address] Albumin/Globulin [Mass ratio] 1.4 {ratio} Normal [facility] Comment on above: Performed By: #### P T, CBC, PTT, BMP, HEPATIC, CK, LIPASE, BNP, HS TROP #### [address] ALP [Catalytic activity/Vol] 61 U/L Normal 34-104 [facility] Comment on above: Performed By: #### P T, CBC, PTT, BMP, HEPATIC, CK, LIPASE, BNP, HS TROP #### [facility] [address] [place] [address] ALT [Catalytic activity/Vol] 17 U/L Normal 7-52 [facility] Comment on above: Performed By: #### P T, CBC, PTT, BMP, HEPATIC, CK, LIPASE, BNP, HS TROP #### [facility] [address] [place] [address] AST [Catalytic activity/Vol] 28 U/L Normal 13-39 [facility] Comment on above: Performed By: #### P T, CBC, PTT, BMP, HEPATIC, CK, LIPASE, BNP, HS TROP #### [facility] [address] [place] [address] Bilirubin [Mass/Vol] 0.8 mg/dL Normal 0.3-1.0 [facility] Comment on above: Performed By: #### P T, CBC, PTT, BMP, HEPATIC, CK, LIPASE, BNP, HS TROP #### [facility] [address] [place] [address] [place] Bilirubin,Indirect 0.7 mg/dL Normal [facility] Comment on above: Performed By: #### P T, CBC, PTT, BMP, HEPATIC, CK, LIPASE, BNP, HS TROP #### [facility] [address] [place] [address] [place] Bilirubin.indirect [Mass/Vol] 0.10 mg/dL Normal 0.03-0.18 [facility] Comment on above: Performed By: #### P T, CBC, PTT, BMP, HEPATIC, CK, LIPASE, BNP, HS TROP #### [address] [place] [address] [facility] Globulin (S) [Mass/Vol] 2.9 g/dL Normal [facility] Comment on above: Performed By: #### P T, CBC, PTT, BMP, HEPATIC, CK, LIPASE, BNP, HS TROP #### [facility] [address] [place] [id number] [place] Protein [Mass/Vol] 6.9 g/dL Normal 6.4-8.9 [facility] Comment on above: Performed By: #### P T, CBC, PTT, BMP, HEPATIC, CK, LIPASE, BNP, HS TROP #### [facility] [address] INR in Platelet poor plasma by Coagulation assayOrdered By: Tad Barger on 03-24-2023 INR Coag (PPP) [Relative time] 0.9 {INR} [facility] Comment on above: INR Therapeutic Rang e [...] 03-24-2023 Ketones (U) [Mass/Vol] Negative Negative [facility] Leukocytes [#/volume] correc dieudonne for nucleated erythrocytes in Blood by Automated counOrdered By: Tad Barger on 03-24-2023 WBC corrected for nucl RBC Auto (Bld) [#/Vol] 6.6 10*3/uL 3.8-11.6 [facility] Lipaseon 03-24-2023 Lipase [Catalytic activity/Vol] 91.0 U/L High 11.0-82.0 [facility] Comment on above: Result Comment: PERF ORMED BY: [place] [address] PATHOLOGIST [employer] WORKER JESSICA LYN M.D. Performed By: #### P T, CBC, PTT, BMP, HEPATIC, CK, LIPASE, BNP, HS TROP #### [facility] [address] Lipase [Enzymatic activity/v olume] in Serum or PlasmaOrdered By: Tad Barger on 03-24-2023 Lipase [Catalytic activity/Vol] 91.0 U/L 11.0-82.0 [facility] Lymphocytes Auto (Bld) [#/Vo l]Ordered By: Tad Barger on 03-24-2023 Lymphocytes (Bld) [#/Vol] 3.2 10*3/uL 1.00-4.8 [facility] Lymphocytes/100 WBC Auto (Bl d)Ordered By: Tad Barger on 03-24-2023 Lymphocytes/100 WBC (Bld) 48.5 % . [facility] MCH Auto (RBC) [Entitic mass ]Ordered By: Tad Barger on 03-24-2023 MCH (RBC) [Entitic mass] 30.6 pg 24.7-34.3 [facility] MCHC Auto (RBC) [Mass/Vol]Or dered By: Tad Barger on 03-24-2023 MCHC (RBC) [Mass/Vol] 33.7 g/dL 32.0-35.0 [facility] MCV Auto (RBC) [Entitic vol] Ordered By: Tad Barger on 03-24-2023 MCV (RBC) [Entitic vol] 90.9 fL 80-100 [facility] Monocyte distribution width [Entitic volume] in Blood by AutomatedOrdered By: Tad Barger on 03-24-2023 Monocyte distribution width Auto (Bld) [Entitic vol] 16.57 % 0.00-20.00 [facility] Monocytes Auto (Bld) [#/Vol] Ordered By: Tad Barger on 03-24-2023 Monocytes (Bld) [#/Vol] 0.7 10*3/uL 0.0-0.8 [facility] Monocytes/100 WBC Auto (Bld) Ordered By: Tad Barger on 03-24-2023 Monocytes/100 WBC (Bld) 10.9 % . [facility] Natriuretic peptide B [Mass/ Vol]Ordered By: Tad Barger on 03-24-2023 Natriuretic peptide B (Bld) [Mass/Vol] 244.0 pg/mL 5-100 [facility] Neutrophils Auto (Bld) [#/Vo l]Ordered By: Tad Barger on 03-24-2023 Neutrophils (Bld) [#/Vol] 2.4 10*3/uL 1.8-7.7 [facility] Neutrophils/100 WBC Auto (Bl d)Ordered By: Tad Barger on 03-24-2023 Neutrophils/100 WBC (Bld) 36.6 % . [facility] No Panel InformationOrdered By: Tad Barger on 03-24-2023 Estimated GFR (CKD-EPI) 53.870 mL/Min [facility] Creatinine Clearance (Chem 49.35 [facility] Nucleated erythrocytes [Pres ence] in Blood by Automated countOrdered By: Tad Barger on 03-24-2023 Nucleated RBC Auto Ql (Bld) 0.0 /100{WBC} 0-0.5 [facility] Partial Thromboplastin Timeo n 03-24-2023 aPTT Coag (Bld) [Time] 29.2 s Normal 25.1-36.5 [facility] Comment on above: Result Comment: A he matocrit value greater than 55% may lead to inaccurate results in coagulation testing. Patients having hematocrit values >55% require a special collection tube for coagulation studies. Please contact the laboratory at [phone] for redraw instructions. PERFORMED BY: [facility] [address] [place] [address] PATHOLOGIST [employer] WORKER JESSICA LYN M.D. Performed By: #### P T, CBC, PTT, BMP, HEPATIC, CK, LIPASE, BNP, HS TROP ####[facility] [address] [place] [address] [facility] Platelet mean volume Auto (B ld) [Entitic vol]Ordered By: Tad Barger on 03-24-2023 Platelet mean volume (Bld) [Entitic vol] 8.5 fL 6.3-10.7 [facility] Platelets Auto (Bld) [#/Vol] Ordered By: Tad Barger on 03-24-2023 Platelets (Bld) [#/Vol] 272 10*3/uL 150-450 [facility] Potassium [Moles/volume] in Serum or PlasmaOrdered By: Tad Barger on 03-24-2023 Potassium [Moles/Vol] 3.8 mmol/L 3.5-5.1 [facility] Protein Auto test strip (U) [Mass/Vol]Ordered By: Tad Barger on 03-24-2023 Protein (U) [Mass/Vol] Negative Negative [facility] Protein [Mass/volume] in Ser um or PlasmaOrdered By: Tad Barger on 03-24-2023 Protein [Mass/Vol] 6.9 g/dL 6.4-8.9 [facility] Prothrombin Time INRon 03-24 INR Coag (PPP) [Relative time] 0.9 {INR} Normal [facility] Comment on above: Result Comment: INR Therapeutic [...] BMP, HEPATIC, CK, LIPASE, BNP, HS TROP ####[facility] [place] [id number] [facility] PT Coag (PPP) [Time] 10.0 s Normal 9.0-12.9 [facility] Comment on above: Result Comment: A he matocrit value greater than 55% may lead to inaccurate results in coagulation testing. Patients having hematocrit values >55% require a special collection tube for coagulation studies. Please contact the laboratory at [phone] for redraw instructions. Performed By: #### P T, CBC, PTT, BMP, HEPATIC, CK, LIPASE, BNP, HS TROP ####[facility] [place] [id number] [facility] Prothrombin time (PT)Ordered By: Tad Barger on 03-24-2023 PT Coag (PPP) [Time] 10.0 s 9.0-12.9 [facility] [facility] Comment on above: A hematocrit value g reater than 55% may lead to inaccurate results in coagulation testing. Patients having hematocrit values >55% require a special collection tube for coagulation studies. Please contact the laboratory at [phone] for redraw instructions. RBC Auto (Bld) [#/Vol]Ordere d By: Tad Barger on 03-24-2023 RBC (Bld) [#/Vol] 3.97 10*6/uL 3.60-5.00 [facility] Serum or plasma albumin/glob ulin mass ratioOrdered By: Tad Barger on 03-24-2023 Albumin/Globulin [Mass ratio] 1.4 {ratio} [facility] Serum or plasma anion gap de terminationOrdered By: Tad Barger on 03-24-2023 Anion gap [Moles/Vol] 8.7 mmol/L 6.0-15.0 [facility] Serum or plasma non-glucuron idated bilirubin measurement (mass/volume)Ordered By: Tad Barger on 03-24-2023 Bilirubin.indirect [Mass/Vol] 0.7 mg/dL [facility] Sodium [Moles/volume] in Ser um or PlasmaOrdered By: Tad Barger on 03-24-2023 Sodium [Moles/Vol] 141 mmol/L 136-145 [facility] Troponin I High Sensitivityo n 03-24-2023 Troponin I High Sensitivity 4.9 pg/mL Normal 0.0-15.0 [facility] Comment on above: Result Comment: PERF ORMED BY: [facility] [address] [place] [address] PATHOLOGIST HARVEST WORKER JESSICA LYN M.D. Performed By: #### P T, CBC, PTT, BMP, HEPATIC, CK, LIPASE, BNP, HS TROP ####[facility] [address] [place] [address] [facility] Troponin I.cardiac [Mass/vol ume] in Serum or Plasma by Detection limit <= 0.01 ng/Ordered By: Tad Barger on 03-24-2023 Troponin I.cardiac DL <= 0.01 ng/mL [Mass/Vol] 4.9 pg/mL 0.0-15.0 [facility] Urea nitrogen [Mass/volume] in Serum or PlasmaOrdered By: Tad Barger on 03-24-2023 Urea nitrogen [Mass/Vol] 23 mg/dL 725 [facility] Urinalysison 03-24-2023 Appearance (U) Clear Normal Clear [facility] Comment on above: Order Comment: Name Collection Type:: Clean-Voided Midstream Performed By: #### U A #### [facility] [address] [place] [address] [place] Bilirubin,Urine Negative Normal Negative [facility] Comment on above: Order Comment: Name Collection Type:: Clean-Voided Midstream Performed By: #### U A #### [facility] [address] [place] [address] [place] Color (U) Yellow Normal Yellow [facility] Comment on above: Order Comment: Name Collection Type:: Clean-Voided Midstream Performed By: #### U A #### [facility] [address] [place] [address] [place] Glucose Ql (U) Normal Normal Normal [facility] Comment on above: Order Comment: Name Collection Type:: Clean-Voided Midstream Performed By: #### U A #### [facility] [address] [place] [address] [place] Ketones Ql (U) Negative Normal Negative [facility] Comment on above: Order Comment: Name Collection Type:: Clean-Voided Midstream Performed By: #### U A #### [facility] [address] [place] [address] [place] Leukocyte esterase Test strip Ql (U) Negative Normal Negative [facility] Comment on above: Order Comment: Name Collection Type:: Clean-Voided Midstream Performed By: #### U A #### [facility] [address] [place] [address] [place] Nitrite,Urine Negative Normal Negative [facility] Comment on above: Order Comment: Name Collection Type:: Clean-Voided Midstream Performed By: #### U A #### [facility] [address] [place] [address] [place] Occult Blood,Urine Negative Normal Negative [facility] Comment on above: Order Comment: Name Collection Type:: Clean-Voided Midstream Result Comment: PERF ORMED BY: [place] [address] PATHOLOGIST HARVEST WORKER JESSICA LYN M.D. Performed By: #### U A #### [place] [address] [place] pH (U) 5.5 [pH] Normal 5.0-9.0 [facility] Comment on above: Order Comment: Name Collection Type:: Clean-Voided Midstream Performed By: #### U A #### [address] Protein,Urine Negative Normal Negative [facility] Comment on above: Order Comment: Name Collection Type:: Clean-Voided Midstream Performed By: #### U A #### [address] Specificy [place],Urine 1.020 Normal 1.001-1.03 0 [facility] Comment on above: Order Comment: Name Collection Type:: Clean-Voided Midstream Performed By: #### U A #### [address] Urobilinogen,Urine Normal Normal Normal [facility] Comment on above: Order Comment: Name Collection Type:: Clean-Voided Midstream Performed By: #### U A #### [place] [address] [place] Urine appearanceOrdered By: Tad Barger on 03-24-2023 Appearance (U) Clear Clear [facility] Urine colorOrdered By: Tad Barger on 03-24-2023 Color (U) Yellow Yellow [facility] Urine glucose measurement by automated test strip (mass/volume)Ordered By: Tad Barger on 03-24-2023 Glucose Auto test strip (U) [Mass/Vol] Normal mg/dL Normal [facility] Urine hemoglobin detection b y automated test stripOrdered By: Tad Barger on 03-24-2023 Hemoglobin Auto test strip Ql (U) Negative Negative [facility] Urine leukocyte esterase det ection by automated test stripOrdered By: Tad Barger on 03-24-2023 Leukocyte esterase Auto test strip Ql (U) Negative Negative [facility] Urine nitrite detection by a utomated test stripOrdered By: Tad Barger on 03-24-2023 Nitrite Auto test strip Ql (U) Negative Negative [facility] Urobilinogen Auto test strip (U) [Mass/Vol]Ordered By: Tad Barger on 03-24-2023 Urobilinogen (U) [Mass/Vol] Normal mg/dL Normal [facility] WBC Auto (Bld) [#/Vol]Ordere d By: Tad Barger on 03-24-2023 WBC (Bld) [#/Vol] 6.6 10*3/uL 3.8-11.6 [facility] XR chest 1V portableon 03-24 XR chest 1V portable [facility] [place] [address] XRay Report Signed Patient: Tasneem Camarillo MR#: [id number] : 1975 Acct:[id number] Age/Sex: 48 / F ADM Date: 03/24/23 Loc: ER Room: Type: [facility] ER Attending Dr: Copies to: Tad Barger [...] NO ACUTE FINDINGS Impression dictated by: Bryanna Mitchell M.D.03/24/2023 1:24 PM Dictation Location: [place] [address] Transcribed By: YESY 03/24/23 1324 Dictated By: Bryanna Mitchell MD 03/24/23 1323 Signed By: 03/24/23 1324 Normal [facility] pH Auto test strip (U)Ordere d By: Tad Barger on 03-24-2023 pH (U) 1.020 [pH] 1.001-1.03 0 [facility] pH (U) 5.5 [pH] 5.0-9.0 [facility] OT Initial Evalutationon OT Initial Evalutation No report was sent Normal [facility] Therapy Communicationon 10-08 Therapy Communication Message TASNEEM CAMARILLO no showed today 10/23/2022. Signatures Electronically signed by : Dc Wu CHT OTR/L; Oct 23 2022 11:15AM EST (Author) Normal [facility] Established Visit (Orthopaed ic Surgery)on 10-17-2022 Established [...] PIP flexion contracture. She had surgery in [place]. The operative note indicates that the volar [...] Acosta, ; Oct 21 2022 9:07AM EST (Extractions Technician/Recorde r) Electronically signed by : Humphrey Pfeiffer DO; Oct 28 2022 10:32AM EST Normal [facility] HAND MIN 3 VIEWSon 3 HAND MIN 3 VIEWS Patient Name: TASNEEM CAMARILLO STUDY: HAND MIN 3 VIEWS INDICATION: pain, old injury G89.18: Post-op pain. COMPARISON: None ACCESSION NUMBER(S): [id number] ORDERING CLINICIAN: MELI BRAVO FINDINGS: Flexion deformity with some arthrosis at the right 5th proximal interphalangeal joint likely related to remote fracture. No acute findings right hand. 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 No acute findings right hand. Electronically signed by: CARLA SINGH MD Normal [facility] Initial Visit (Orthopaedic S urgery)on 09-23-2022 Initial Visit (Orthopaedic Surgery) Diagnoses/Problems Assessed Joint contracture (718.40) (M24.50) Dislocation of finger, sequela (905.6) (S63.259S) Orders Dislocation of finger, sequela, Joint contracture Occupational Therapy - General Referral (Upper Extremity) Evaluation and Treatment Evaluate AND Treat Status: Hold For - Scheduling Requested for: [id number] Provider Impressions ASSESSMENT: Status post injury in [...] to get going with therapy through her [facility] organization. I will see her back in three weeks to review the operative note and decide where we go from there. Chief Complaint [facility] Lt ring finger xrays at History of [...] was seen by a hand surgeon in [place] and ultimately underwent a surgical release. She [...] Acosta, ; Sep 24 2022 3:05PM EST (Extractions Technician/Recorde r) Electronically signed by : Humphrey Pfeiffer DO; Sep 24 2022 5:46PM EST Normal [facility] 09-23-2022 XR Hand 3 Views Normal [facility] Work Phone: Established Visit (Pain Medi cine)on 07-08-2022 Established Visit (Pain Medicine) Diagnoses/Problems Complex regional pain syndrome type 1 of left lower extremity (337.22) (G90.522) Orders Complex regional pain syndrome type 1 of left lower extremity Adult Psychology Referral Evaluation and Treatment Evaluate AND Treat preop eval Status: Complete Done: [id number] Scheduled virtual Patient Discussion/Summary Discussed with patient [...] proceed but is needing to choose the [employer] device over the DRG device as [...] Recorded: 08Jul2022 02:44PM Height5 ft 2 in Tcyifn137 lb BMI Qivjqfkjbl26.78 kg/m2 BSA Calculated1.59 Tobacco Useb) No Falls [...] motion. Neurol (more content not included)... Normal [facility] CT ABD/PELVIS WO CONon 06-13 CT ABD/PELVIS [...] by: VALARIE GOSS Date: 2022-06-13 00:[address] [facility] [address] CHEST WO CONon 06-13-2022 CT [...] fracture deformity noted. Electronically authenticated by: RULA WAY Date: 2022-06-13 00:45 Normal [facility] ER URINE PROFILEon 3 Bilirubin Ql (U) MODERATE Abnormal NEGATIVE [facility] Comment on above: Performed By: #### LALY ALLAN ####[facility] [address] [place], [place] [address]ZeJerman Cotto Dave Clarity (U) CLEAR Normal CLEAR [facility] Comment on above: Performed By: #### LALY ALLAN ####[facility] [address] [place] [address]Dr. Yadiel Acosta Color (U) YELLOW Normal YELLOW [facility] Comment on above: Performed By: #### LALY ALLAN ####[facility] [address] [place], [place] [address]Dr. Yadiel Acosta ERUAHD A micrscopic examina tion will be performed if indicated. Normal [facility] Comment on above: Performed By: #### ROCIO ALLANRO ####[facility] [address] [place], [place] [address]Dr. Yadiel Acosta Glucose Ql (U) Negative Normal NEGATIVE [facility] Comment on above: Performed By: #### LALY ALLAN ####[facility] [address] [place], [place] [address]Dr. Yadiel Acosta Hemoglobin Ql (U) SMALL Abnormal NEGATIVE The [facility] Comment on above: Performed By: #### LALY ALLAN ####[facility] [address] [place], [place] [address]Dr. Yadiel Acosta Ketones Ql (U) Negative Normal NEGATIVE [facility] Comment on above: Performed By: #### LALY ALLAN ####[facility] [address] [place], [place] [address]Dr. Yadiel Acosta LEUKOCYTES Negative Normal NEGATIVE [facility] Comment on above: Performed By: #### ROCIO ALLANRO ####[facility] [address] [place], [place] [address]Dr. Yadiel Acosta Nitrite Ql (U) Negative Normal NEGATIVE [facility] Comment on above: Performed By: #### ROCIO ALLANRO ####[facility] [address] [place], [place] [address]Dr. Yadiel Acosta pH (U) 5.5 [pH] Normal 5-9 [facility] Comment on above: Performed By: #### ROCIO ALLANRO ####[facility] [address] [place], [place] [address]Dr. Yadiel Acosta SPEC GRAVITY >=1.030 Abnormal 1.005-<=1. 025 [facility] Comment on above: Performed By: #### LALY ALLAN ####[facility] [address] [place], [place] [address]Dr. Yadiel Acosta UA PROTEIN Negative Normal NEGATIVE/ TRACE [facility] Comment on above: Performed By: #### LALY ALLAN ####[facility] [address] [place], [place] [address]Dr. Yadiel Acosta UR MICRO IND INDICATED Normal [facility] Comment on above: Performed By: #### LALY ALLAN ####[facility] [address] [place], [place] [address]Dr. Yadiel Acosta Urobilinogen Qn (U) 0.2 {Stan'U}/dL Normal 0.2 - 1. 0 [facility] Comment on above: Performed By: #### LALY ALLAN ####[facility] [address] [place], [place] [address]Dr. Yadiel Acosta INFLUENZA A AND B AGon 06-13 INFLUANEGH SEE BELOW Normal [facility] Comment on above: Result Comment: Nega tive for Flu A protein angiten. Infection due to Flu A cannot be ruled out. Flu A angiten in the sample may be below the detection limit of the test. Performed By: #### I NFLUAB ####[facility] [address] [place], [place] [address]Dr. Yadiel Acosta INFLUBNEGH SEE BELOW Normal [facility] Comment on above: Result Comment: Nega tive for Flu B protein antigen. Infection due to Flu B cannot be ruled out. Flu B antigen in the sample may be below the detection limit of the test. Performed By: #### I NFLUAB ####[facility] [address] [place], [place] [address]Dr. Yadiel Acosta INFLUENZA A AG Negative Normal NEGATIVE SEE COMMENT [facility] Comment on above: Performed By: #### I NFLUAB ####[facility] [address] [place], [place] [address]Dr. Yadiel Acosta INFLUENZA B AG Negative Normal NEGATIVE SEE COMMENT [facility] Comment on above: Performed By: #### I NFLUAB ####[facility] [address] [place] [address]Dr. Yadiel Acosta LIPASEon 06-13-2022 Lipase [Catalytic activity/Vol] 160.0 U/L Normal 73.0-393.0 [facility] Comment on above: Performed By: #### C MANOLO, LIPA ####[facility] [address] [place] [address]Dr. Yadiel Acosta PROF 14(COMP METB)on 023 Albumin [Mass/Vol] 4.4 g/dL Normal 3.4-5.0 [facility] Comment on above: Performed By: #### C MANOLO, LIPA ####[facility] [address] [place] [address]Dr. Yadiel Acosta Albumin/Globulin [Mass ratio] 1.2 {ratio} Normal [facility] Comment on above: Performed By: #### C MP, LIPA ####[facility] [address] [place] [address]Dr. Yadiel Acosta ALP [Catalytic activity/Vol] 109 U/L Normal 46-116 [facility] Comment on above: Performed By: #### C MP, LIPA ####[facility] [address] [place] [address]Dr. Yadiel Acosta ALT [Catalytic activity/Vol] 27 U/L Normal 14-59 [facility] Comment on above: Performed By: #### C MP, LIPA ####[facility] [address] [place] [address]Dr. Yadiel Acosta Anion gap [Moles/Vol] 20.7 mmol/L Normal [facility] Comment on above: Performed By: #### C MP, LIPA ####[facility] [address] [place] [address]Dr. Yadiel Acosta AST [Catalytic activity/Vol] 35 U/L Normal 15-37 [facility] Comment on above: Performed By: #### C MP, LIPA ####[facility] [address] [place] [address]Dr. Yadiel Acosta Bilirubin [Mass/Vol] 1.2 mg/dL Critically high 0.2-1.0 [facility] Comment on above: Performed By: #### C MP, LIPA ####[facility] [address] [place] [address]Dr. Yadiel Acosta Calcium [Mass/Vol] 9.3 mg/dL Normal 8.5-10.1 [facility] Comment on above: Performed By: #### C MP, LIPA ####[facility] [address] [place] [address]Dr. Yadiel Acosta Chloride [Moles/Vol] 98 mmol/L Normal 98-107 [facility] Comment on above: Performed By: #### C MP, LIPA ####[facility] [address] [place], [place] [address]Dr. Yadiel Acosta CO2 [Moles/Vol] 21.6 mmol/L Normal 21.0-32.0 [facility] Comment on above: Performed By: #### C MP, LIPA ####[facility] [address] [place], [place] [address]Dr. Yadiel Acosta Creatinine [Mass/Vol] 1.07 mg/dL Critically high 0.55-1.02 [facility] Comment on above: Performed By: #### C MP, LIPA ####[facility] [address] [place], [place] [address]Dr. Yadiel Acosta EGFR-AF TRINIDADIAN >60 Normal >=60 [facility] Comment on above: Performed By: #### C MP, LIPA ####[facility] [address] [place], [place] [address]Dr. Yadiel Acosta EGFR-NON AF TRINIDADIAN 55 mL/min/1.73m2 Critically low >=60 [facility] Comment on above: Performed By: #### C MP, LIPA ####[facility] [address] [place], [place] [address]Dr. Yadiel Acosta Globulin (S) [Mass/Vol] 3.6 g/dL Normal [facility] Comment on above: Performed By: #### C MANOLO, LIPA ####[facility] [address] [place] [address]Dr. Yadiel Acosta Glucose [Mass/Vol] 77 mg/dL Normal 74-106 [facility] Comment on above: Performed By: #### C MANOLO, LIPA ####[facility] [address] [place] [address]Dr. Yadiel Acosta Potassium [Moles/Vol] 3.3 mmol/L Critically low 3.5-5.1 [facility] Comment on above: Performed By: #### C MANOLO, LIPA ####[facility] [address] [place] [address]Dr. Yadiel Acosta Protein [Mass/Vol] 8.0 g/dL Normal 6.4-8.2 [facility] Comment on above: Performed By: #### C MANOLO, LIPA ####[facility] [address] [place], [place] [address]Dr. Yadiel Acosta Sodium [Moles/Vol] 137 mmol/L Normal 136-145 [facility] Comment on above: Performed By: #### C MANOLO, LIPA ####[facility] [address] [place], [place] [address]Dr. Yadiel Acosta Urea nitrogen [Mass/Vol] 27.0 mg/dL Critically high 7.0-18.0 [facility] Comment on above: Performed By: #### C MANOLO, LIPA ####[facility] [address] [place], [place] [address]Dr. Yadiel Acosta Urea nitrogen/Creatinine [Mass ratio] 25.2 mg/mg Normal [facility] Comment on above: Performed By: #### C MANOLO, LIPA ####[facility] [address] [place] [address]Dr. Yadiel Acosta URINE MICROSCOPIC ONLYon BACTERIA NONE SEEN Normal NONE SEEN [facility] Comment on above: Performed By: #### E ROCIO LOMBARDIRO ####[facility] [address] [place] [address]Dr. Yadiel Acosta Bacteria identified Cx Nom (U) NOT INDICATED Normal [facility] Comment on above: Performed By: #### Leonila LOMBARDI, UMICRO ####[facility] [address] [place] [address]Dr. Yadiel Acosta CAST NONE SEEN Normal NONE SEEN [facility] Comment on above: Performed By: #### E RUSelwyn, UMICRO ####[facility] [address] [place] [address]Dr. Yadiel Acosta Crystals LM Nom (Urine sed) NONE SEEN Normal NONE SEEN [facility] Comment on above: Performed By: #### Leonila LOMBARDI, UMICRO ####[facility] [address] [place] [address]Dr. Yadiel Acosta Epithelial cells LM Ql (Urine sed) RARE Normal NONE SEEN /RARE [facility] Comment on above: Performed By: #### Leonila LOMBARDI, UMICRO ####[facility] [address] [place] [address]Dr. Yadiel Acosta MUCOUS NONE SEEN Normal NONE SEEN [facility] Comment on above: Performed By: #### Leonila LOMBARDI UMICRO ####[facility] [address] [place] [address]Dr. Yadiel Acosta RBC 0-2 Normal 0-2 [facility] Comment on above: Performed By: #### Leonila LOMBARDI, UMICRO ####[facility] [address] [place] [address]Dr. Yadiel Acosta WBC NONE SEEN Normal NONE SEEN [facility] Comment on above: Performed By: #### Leonila LOMBARDI, UMICRO ####[facility] [address] [place] [address]Dr. Yadiel Acosta CBC with Diffon 04-11-2022 Abs. Basophil 0.00 k/uL Normal 0.0-0.2 [facility] Comment on above: Performed By: #### C P, CDP, LIP #### [facility] [address] [place] [address] Sodder: Mine Roblero MD Abs.Neutrophil (Seg) 3.70 k/uL Normal 2.5-7.0 [facility] Comment on above: Performed By: #### C P, CDP, LIP #### [facility] [address] [place] [id number] Sodder: Mine Roblero MD Auto Diff Performed YES Normal [facility] Comment on above: Performed By: #### C P, CDP, LIP #### [facility] [address] [place] [id number] Sodder: Mine Roblero MD Basophils/100 WBC (Bld) 1 % Normal 0-2 [facility] Comment on above: Performed By: #### C P, CDP, LIP #### [facility] [address] [place] [address] Sodder: Mine Roblero MD Eosinophils (Bld) [#/Vol] 0.10 10*3/uL Normal 0.0-0.4 [facility] Comment on above: Performed By: #### C P, CDP, LIP #### [facility] [address] [place] [id number] Sodder: Mine Roblero MD Eosinophils/100 WBC (Bld) 1 % Normal 0-5 [facility] Comment on above: Performed By: #### C P, CDP, LIP #### [facility] [address] [place] [address] Sodder: Mine Roblero MD Erythrocyte distribution width (RBC) [Ratio] 13.7 % Normal 12.1-15.2 [facility] Comment on above: Performed By: #### C P, CDP, LIP #### [facility] [address] [place] [id number] Sodder: Mine Roblero MD Hematocrit (Bld) [Volume fraction] 40.3 % Normal 36-46 [facility] Comment on above: Performed By: #### C P, CDP, LIP #### [facility] [address] [place] [address] Sodder: Mine Roblero MD Hemoglobin (Bld) [Mass/Vol] 13.4 g/dL Normal 12.0-16.0 [facility] Comment on above: Performed By: #### C P, CDP, LIP #### [facility] [address] [place] [address] Sodder: Mine Roblero MD Lymphocytes (Bld) [#/Vol] 2.20 10*3/uL Normal 1.0-4.8 [facility] Comment on above: Performed By: #### C P, CDP, LIP #### [facility] [address] [place] [address] Sodder: Mine Roblero MD Lymphocytes/100 WBC (Bld) 34 % Normal 15-40 [facility] Comment on above: Performed By: #### C P, CDP, LIP #### [facility] [address] [place] [address] Sodder: Mine Roblero MD MCH (RBC) [Entitic mass] 29.7 pg Normal 26-34 [facility] Comment on above: Performed By: #### C P, CDP, LIP #### [facility] [address] [place] [address] Sodder: Mine Roblero MD MCHC (RBC) [Mass/Vol] 33.3 g/dL Normal 31-37 [facility] Comment on above: Performed By: #### C P, CDP, LIP #### [facility] [address] [place] [address] Sodder: Mine Roblero MD MCV (RBC) [Entitic vol] 89.0 fL Normal 80-100 [facility] Comment on above: Performed By: #### C P, CDP, LIP #### [facility] [address] [place], [place] [id number] [phone] Sodder: Mine Roblero MD Monocytes (Bld) [#/Vol] 0.40 10*3/uL Normal 0.0-1.0 [facility] Comment on above: Performed By: #### C P, CDP, LIP #### [facility] [address] [place] [address] Sodder: Mine Roblero MD Monocytes/100 WBC (Bld) 6 % Normal 4-8 [facility] Comment on above: Performed By: #### C P, CDP, LIP #### [facility] [address] [place], [place] [phone] ([phone] Sodder: Mine Roblero MD Neutrophil (Seg) 58 % Normal 47-75 [facility] Comment on above: Performed By: #### C P, CDP, LIP #### [facility] [address] [place], [place] [id number] Sodder: Mine Roblero MD Platelets (Bld) [#/Vol] 245 10*3/uL Normal 140-450 [facility] Comment on above: Performed By: #### C P, CDP, LIP #### [facility] [address] [place], [place] [phone] (030) Sodder: Mine Roblero MD RBC (Bld) [#/Vol] 4.53 10*6/uL Normal 4.0-5.2 [facility] Comment on above: Performed By: #### C P, CDP, LIP #### [facility] [address] [place] [address] Sodder: Mine Roblero MD WBC (Bld) [#/Vol] 6.4 10*3/uL Normal 3.5-11.0 [facility] Comment on above: Performed By: #### C P, CDP, LIP #### [facility] [address] [place], [place] [phone] (536) Sodder: Mine Roblero MD Absolute Eos # 0.10 [facility] Absolute Lymph # 2.20 [facility] Absolute Shawnee # 0.40 [facility] Basophils (Bld) [#/Vol] 0.00 10*3/uL [facility] Basophils/100 WBC (Bld) 1 % 0 - 2 % [facility] Differential Type YES [facility] Eosinophils/100 WBC (Bld) 1 % 0 - 5 % [facility] Hematocrit (Bld) [Volume fraction] 40.3 % 36 - 46 % [facility] Hemoglobin (Bld) [Mass/Vol] 13.4 g/dL 12.0 - 16.0 g/dL [facility] Lymphocytes/100 WBC (Bld) 34 % 15 - 40 % [facility] MCH (RBC) [Entitic mass] 29.7 pg 26 - 34 pg [facility] MCHC (RBC) [Mass/Vol] 33.3 g/dL 31 - 3 7 g/dL [facility] MCV (RBC) [Entitic vol] 89.0 fL 80 - 100 fL [facility] Monocytes/100 WBC (Bld) 6 % 4 - 8 % [facility] Platelet distribution width (Bld) [Ratio] 13.7 % 12.1 - 15.2 % [facility] Platelets (Bld) [#/Vol] 245 10*3/uL [facility] RBC (Bld) [#/Vol] 4.53 10*6/uL 4.0 - 5.2 m/uL [facility] Segmented neutrophils/100 WBC (Bld) 58 % 47 - 75 % [facility] Segs Absolute 3.70 [facility] WBC (Bld) [#/Vol] 6.4 10*3/uL [facility] CMPon 04-11-2022 Albumin [Mass/Vol] 4 g/dL 3.5 - 5.2 g/dL [facility] ALP [Catalytic activity/Vol] 85 U/L 35 - 104 U/L [facility] ALT [Catalytic activity/Vol] 12 U/L 5 - 33 U/L [facility] Anion gap [Moles/Vol] 12 mmol/L 9 - 17 mmol/L [facility] AST [Catalytic activity/Vol] 21 U/L NINF - 32 U/L [facility] Bilirubin [Mass/Vol] 0.5 mg/dL 0.3 - 1 .2 mg/dL [facility] Calcium [Mass/Vol] 9.0 mg/dL 8.6 - 10. 4 mg/dL [facility] Chloride [Moles/Vol] 105 mmol/L 98 - 10 7 mmol/L [facility] CO2 [Moles/Vol] 23 mmol/L 20 - 31 mmol/L [facility] Creatinine [Mass/Vol] 1.03 mg/dL High 0.50 - 0.90 mg/dL [facility] GFR/1.73 sq M.predicted MDRD (S/P/Bld) [Vol rate/Area] - PINF [facility] Comment on above: These results are not [...] 119 mg/dL High 70 - 99 mg/dL [facility] Interpretation and review of laboratory results Abnormal [facility] Potassium [Moles/Vol] 3.4 mmol/L Low 3.7 - 5.3 mmol/L [facility] Protein [Mass/Vol] 6.6 g/dL 6.4 - 8.3 g/dL [facility] Sodium [Moles/Vol] 140 mmol/L 135 - 144 mmol/L [facility] Urea nitrogen [Mass/Vol] 23 mg/dL High 6 - 20 mg/dL [facility] Urea nitrogen/Creatinine (Bld) [Mass ratio] 22 High 9 - 20 [facility] CT ABDOMEN PELVIS WO CONTRAS Ton 04-11-2022 CT ABDOMEN PELVIS WO CONTRAST EXAMINATION: CT ABDOMEN PELVIS WO CONTRAST, 04/11/2022 3:49 PM EST HISTORY: Reason for exam:->right flank pain and RLQ pain hx of kidney stone COMPARISON: [facility] 09/18/2021. TECHNIQUE: CT scan of the abdomen [...] Balbuena Jr., MD 04/11/22 Final result Normal [facility] CT ABDOMEN PELVIS WO CONTRAS T Additional Contrast? Noneon 04-11-2022 Punctate nonobstructing stone barely visible in the right kidney. No explanation for pain. [facility] EXAMINATION: CT ABDO MEN PELVIS WO CONTRAST, 04/11/2022 3:49 PM EST HISTORY: Reason for exam:->right flank pain and RLQ pain hx of kidney stone COMPARISON: [facility] 09/18/2021. TECHNIQUE: CT scan of the abdomen [...] spleen, pancreas and adrenal glands. Bladder empty. [facility] Roddy Balbuena Jr., MD - 04/11/2022 EXAMINATION: CT ABDOMEN PELVIS WO CONTRAST, 04/11/2022 3:49 PM EST HISTORY: Reason for exam:->right flank pain and RLQ pain hx of kidney stone COMPARISON: [facility] 09/18/2021. TECHNIQUE: CT scan of the abdomen [...] the right kidney. No explanation for pain. [facility] [employer] Phone: Radiology Study observation (narrative) [facility] [employer] Phone: CT ABDOMEN PELVIS WO CONTRAS T Additional Contrast? NoneOrdered By: Roddy Balbuena on 04-11-2022 [facility] [employer] Phone: Comp Metabolic Profon 2022 Albumin [Mass/Vol] 4.0 g/dL Normal 3.5-5.2 [facility] Comment on above: Performed By: #### C P, CDP, LIP #### [facility] [address] [place] [address] Sodder: Mine Roblero MD Alkaline Phos 85 U/L Normal 35-104 [facility] Comment on above: Performed By: #### C P, CDP, LIP #### [facility] [address] [place] [address] Sodder: Mine Roblero MD ALT [Catalytic activity/Vol] 12 U/L Normal 5-33 [facility] Comment on above: Performed By: #### C P, CDP, LIP #### [facility] [address] [place] [address] Sodder: Mine Roblero MD Anion gap [Moles/Vol] 12 mmol/L Normal 9-17 [facility] Comment on above: Performed By: #### C P, CDP, LIP #### [facility] [address] [place], [place] [phone] Sodder: Mine Roblero MD AST [Catalytic activity/Vol] 21 U/L Normal <32 [facility] Comment on above: Performed By: #### C P, CDP, LIP #### [facility] [address] [place], [place] [phone] Sodder: Mine Roblero MD Bilirubin [Mass/Vol] 0.5 mg/dL Normal 0.3-1.2 [facility] Comment on above: Performed By: #### C P, CDP, LIP #### [facility] [address] [place], [place] [phone] Sodder: Mine Roblero MD BUN/CRE Ratio 22 High 9-20 [facility] Comment on above: Performed By: #### C P, CDP, LIP #### [facility] [address] [place], [place] [phone] Sodder: Mine Roblero MD Calcium [Mass/Vol] 9.0 mg/dL Normal 8.6-10.4 [facility] Comment on above: Performed By: #### C P, CDP, LIP #### [facility] [address] [place], [place] [phone] Sodder: Mine Roblero MD Chloride [Moles/Vol] 105 mmol/L Normal 98-107 [facility] Comment on above: Performed By: #### C P, CDP, LIP #### [facility] [address] [place], [place] [phone] Sodder: Mine Roblero MD CO2 [Moles/Vol] 23 mmol/L Normal 20-31 [facility] Comment on above: Performed By: #### C P, CDP, LIP #### [facility] [address] [place], [place] [phone] Sodder: Mine Roblero MD Creatinine [Mass/Vol] 1.03 mg/dL High 0.50-0.90 [facility] Comment on above: Performed By: #### C P, CDP, LIP #### [facility] [address] [place] [address] Sodder: Mine Roblero MD GFR/1.73 sq M.predicted among non-blacks MDRD (S/P/Bld) [Vol rate/Area] mL/min/{1.73_m2} Normal >60 [facility] Comment on above: Result Comment: These results [...] By: #### C P, CDP, LIP #### [facility] [address] [place] [phone] Sodder: Mine Roblero MD Glucose [Mass/Vol] 119 mg/dL High 70-99 [facility] Comment on above: Performed By: #### C P, CDP, LIP #### [facility] [address] [place] [address] Sodder: Mine Roblero MD Potassium [Moles/Vol] 3.4 mmol/L Low 3.7-5.3 [facility] Comment on above: Performed By: #### C P, CDP, LIP #### [facility] [address] [place] [address] Sodder: Mine Roblero MD Protein [Mass/Vol] 6.6 g/dL Normal 6.4-8.3 [facility] Comment on above: Performed By: #### C P, CDP, LIP #### [facility] [address] [place] [address] Sodder: Mine Roblero MD Sodium [Moles/Vol] 140 mmol/L Normal 135-144 [facility] Comment on above: Performed By: #### C P, CDP, LIP #### [facility] [address] [place] [address] Sodder: Mine Roblero MD Urea nitrogen [Mass/Vol] 23 mg/dL High 6-20 [facility] Comment on above: Performed By: #### C P, CDP, LIP #### [facility] [address] [place] [phone] Sodder: Mine Roblero MD Lipaseon 04-11-2022 Lipase [Catalytic activity/Vol] 52 U/L Normal 13-60 [facility] Comment on above: Performed By: #### C P, CDP, LIP #### [facility] [address] [place] [address] Sodder: Mine Roblero MD Lipase [Catalytic activity/Vol] 52 U/L 13 - 60 U/L [facility] Microscopic Urinalysison - [facility] Bacteria, UA 2+ Abnormal None [facility] Epithelial Cells UA 10 TO 20 /HPF [facility] Interpretation and review of laboratory results Abnormal [facility] RBC clumps Auto (Urine sed) [#/Area] 2 TO 5 [facility] WBC, UA 2 TO 5 0 /HPF [facility] No Panel Informationon 04-11 [facility] Urinalysison 04-11-2022 Bilirubin Urine Negative NEGATIVE [facility] Color, UA Yellow Yellow [facility] Glucose Auto test strip (U) [Mass/Vol] Negative NEGATIVE [facility] Interpretation and review of laboratory results Abnormal [facility] Ketones (U) [Mass/Vol] Negative NEGATIVE [facility] Leukocyte esterase Auto test strip Ql (U) 2+ Abnormal NEGATIVE [facility] Nitrite Auto test strip Ql (U) Negative NEGATIVE [facility] Protein (U) [Mass/Vol] 6.0 mg/dL 5.0 - 8.0 [facility] Protein (U) [Mass/Vol] 1+ Abnormal NEGATIVE [facility] Specific [place], UA 1.025 1.005 - 1.030 [facility] Turbidity UA Clear Clear [facility] Urinalysis Comments [facility] Urine Hgb Negative NEGATIVE [facility] Urobilinogen, Urine Normal Normal [facility] Urinalysis, Routineon 2022 Bilirubin, SemiQt,Ur Negative Normal NEG [facility] Comment on above: Performed By: #### U A, UMICAO #### [facility] [address] [place] [phone] Sodder: Mine Roblero MD Blood, Urine Negative Normal NEG [facility] Comment on above: Performed By: #### U A, UMJEMALO #### [facility] [address] [place] [phone] Sodder: Mine Roblero MD Clarity (U) Clear Normal CLEAR [facility] Comment on above: Performed By: #### U A, UMICAO #### [facility] [address] [place], [place] [phone] Sodder: Mine Roblero MD Color (U) Yellow Normal YEL [facility] Comment on above: Performed By: #### U A, UMICAO #### [facility] [address] [place], [place] [phone] Sodder: Mine Roblero MD Comment Normal [facility] Comment on above: Performed By: #### U A, UMICAO #### [facility] [address] [place], [place] [phone] Sodder: Mine Roblero MD Glucose Ql (U) Negative Normal NEG [facility] Comment on above: Performed By: #### U A, UMICAO #### [facility] [address] [place], [place] [phone] Sodder: Mine Roblero MD Ketones Ql (U) Negative Normal NEG [facility] Comment on above: Performed By: #### U A, UMICAO #### [facility] [address] [place], [place] [phone] Sodder: Mine Roblero MD Leukocyte esterase Test strip Ql (U) 2+ Abnormal NEG [facility] Comment on above: Performed By: #### U A, UMICAO #### [facility] [address] [place], [place] [phone] Sodder: Mine Roblero MD Nitrite,Ur Negative Normal NEG [facility] Comment on above: Performed By: #### U A, UMICAO #### [facility] [address] [place] [phone] Sodder: Mine Roblero MD PH,Ur 6.0 Normal 5.0-8.0 [facility] Comment on above: Performed By: #### U A, UMJEMALO #### [facility] [address] [place], [place] [phone] Sodder: Mine Roblero MD Protein Ql (U) 1+ Abnormal NEG [facility] Comment on above: Performed By: #### U A, UMICAO #### [facility] [address] [place], [place] [phone] Sodder: Mine Roblero MD Spec. [place],Ur 1.025 Normal 1.005-1.03 0 [facility] Comment on above: Performed By: #### U A, UMICAO #### [facility] [address] [place], [place] [phone] Sodder: Mine Roblero MD Urobilinogen,Ur Normal Normal NORM [facility] Comment on above: Performed By: #### U A, UMICAO #### [facility] [address] [place] [address] Sodder: Mine Roblero MD Urinalysis,Microon 3 ----- Normal [facility] Comment on above: Performed By: #### U A, UMICAO #### [facility] [address] [place], [place] [phone] Sodder: Mine Roblero MD Bacteria 2+ Abnormal NONE [facility] Comment on above: Performed By: #### U A, UMICAO #### [facility] [address] [place] [address] Sodder: Mine Roblero MD Epithelial cells LM Ql (Urine sed) 10 TO 20 Normal [facility] Comment on above: Performed By: #### U A, UMJEMALO #### [facility] [address] [place] [address] Sodder: Mine Roblero MD Urine RBC's 2 TO 5 Normal 0-2 [facility] Comment on above: Performed By: #### U A, UMJEMALO #### [facility] [address] [place], [place] [phone] Sodder: Mine Roblero MD Urine WBC's 2 TO 5 Normal 0 [facility] Comment on above: Performed By: #### U A, UMICAO #### [facility] [address] [place], [place] [phone] Sodder: Mine Roblero MD CT Chest w/o Contraston - CT Chest w/o Contrast EXAMINATION: CTA c [...] by NETTA PITT on 01/02/[address] [facility] Cleaner Signs XR FINGER MIN 2 VIEWSon 10-1 XR FINGER MIN 2 VIEWS Exam: XR FINGER [place] N 2 VIEWS Clinician Provided Indication: Fracture [...] by: DIANA HATCH Date: 2021-12-26 02:10 Normal [facility] HAND RIGHT 3 [facility] 2 HAND RIGHT 3 VWS [facility] Department of Radiology [address] [place] [address] Patient Name: TASNEEM CAMARILLO : 1975 Sex: F Age: Race: White Pt. Location: 83 Patient Status: O Ordered Date: 11/08/2021 10:05:00 AM Completed Date: 11/08/2021 10:06 AM Requesting Provider: ALIRIO BEAR Attending Provider: ALIRIO BEAR Report Copy To: Signs & Symptoms: M79.641 Pain in right hand I10 History: [place] Comments: focus on small finger please Exam: HAND RIGHT 3 S HAND RIGHT 3 VWS 11/08/2021 10:06 AM [...] report. Electronically signed: Rad Cano. Transcribed by: [email or web address], User Resident: SINDY LEBLANC Electronically Signed by: RAD CANO @ 11/08/2021 11:46 AM I personally read this/these film(s) with this resident Normal [facility] Comment on above: Order Comment: focus on small finger please HAND RIGHT 3 VWSon 2 HAND RIGHT 3 S [facility] Department of Radiology [address] [place] [phone] Patient Name: TASNEEM CAMARILLO : 1975 Sex: F Age: Race: White Pt. Location: Patient Status: Ordered Date: 11/02/2021 2:45:00 PM Completed Date: 11/02/2021 03:09 PM Requesting Provider: ALIRIO BEAR Attending Provider: Report Copy To: Signs & Symptoms: M79.641 Pain in right hand I10 History: María Comments: , , , Ordering Provider - ALIRIO BEAR MD , Exam: HAND RIGHT 3 S HAND RIGHT 3 VWS 11/02/2021 3:09 PM [...] report. Electronically signed: Alex Arizmendi. Transcribed by: [email or web address], User Resident: SINDY LEBLANC Electronically Signed by: ALEX ARIZMENDI @ 11/06/2021 03:10 PM I personally read this/these film(s) with this resident Normal [facility] Comment on above: Order Comment: , [...] by Eloisa Brown on 10/04/[address] [facility] Cleaner Signs AMYLASEon 09-18-2021 Amylase [Catalytic activity/Vol] 62 U/L Normal 25-115 [facility] Comment on above: Performed By: #### L IPA, CMP, ANGELINE #### [facility] [address] [place], [place] [address] Dr. Yadiel Acosta CBC AUTO DIFFon 09-18-2021 BASO # 0.1 103/ul Normal 0.0-0.1 [facility] Comment on above: Performed By: #### C BC ####[facility] [address] [place] [address]Dr. Yadiel Acosta Basophils/100 WBC (Bld) 1.1 % Normal 0.2-2.0 [facility] Comment on above: Performed By: #### C BC ####[facility] [address] [place] [address]DrJerman Acosta EO # 0.1 103/ul Normal 0.0-0.7 [facility] Comment on above: Performed By: #### C BC ####[facility] [address] [place] [address]DrJerman Acosta Eosinophils/100 WBC (Bld) 2.3 % Normal 0.9-7.0 [facility] Comment on above: Performed By: #### C BC ####[facility] [address] [place] [address]DrJerman Acosta Erythrocyte distribution width (RBC) [Ratio] 13.2 % Normal 11.0-15.0 [facility] Comment on above: Performed By: #### C BC ####[facility] [address] [place] [address]DrJerman Acosta Hematocrit (Bld) [Volume fraction] 39.1 % Normal 36.0-48.0 [facility] Comment on above: Performed By: #### C BC ####[facility] [address] [place] [address]DrJerman Acosta Hemoglobin (Bld) [Mass/Vol] 12.5 g/dL Normal 12.0-16.0 [facility] Comment on above: Performed By: #### C BC ####[facility] [address] [place] [phone]. Yadiel Acosta IG # 0.02 10e3/ul Normal 0.00-0.03 [facility] Comment on above: Performed By: #### C BC ####[facility] [address] [place] [address]Dr. Yadiel Acosta IG % 0.4 % Normal 0.0-0.5 [facility] Comment on above: Performed By: #### C BC ####[facility] [address] [place] [address]Dr. Yadiel Acosta LYMPH # 2.5 103/ul Normal 1.2-3.8 [facility] Comment on above: Performed By: #### C BC ####[facility] [address] [place] [address]Dr. Yadiel Acosta Lymphocytes/100 WBC (Bld) 44.5 % Normal 20.5-60.0 [facility] Comment on above: Performed By: #### C BC ####[facility] [address] [place] [phone]. Yadiel Acosta MANUAL DIFF REQ NO Normal [facility] Comment on above: Performed By: #### C BC ####[facility] [address] [place] [phone]. Rosettecharlee Acosta MCH (RBC) [Entitic mass] 29.6 pg Normal 26.7-34.0 [facility] Comment on above: Performed By: #### C BC ####[facility] [address] [place] [address]Dr. Yadiel Dave MCHC (RBC) [Mass/Vol] 32.0 g/dL Normal 29.9-35.2 [facility] Comment on above: Performed By: #### C BC ####[facility] [address] [place] [address]Dr. Rosettecharlee Acosta MCV (RBC) [Entitic vol] 92.4 fL Normal 81.0-99.0 [facility] Comment on above: Performed By: #### C BC ####[facility] [address] [place] [address]Dr. Yadiel Acosta MONO # 0.4 103/ul Normal 0.3-0.8 [facility] Comment on above: Performed By: #### C BC ####[facility] [address] [place] [address]Dr. Yadiel Acosta Monocytes/100 WBC (Bld) 6.4 % Normal 1.7-12.0 [facility] Comment on above: Performed By: #### C BC ####[facility] [address] [place] [address]Dr. Yadiel Acosta NEUT # 2.6 103/ul Normal 1.4-6.5 [facility] Comment on above: Performed By: #### C BC ####[facility] [address] [place] [address]Dr. Yadiel Acosta Neutrophils/100 WBC (Bld) 45.3 % Normal 43.0-75.0 [facility] Comment on above: Performed By: #### C BC ####[facility] [address] [place] [address]Dr. Yadiel Acosta Platelet mean volume (Bld) [Entitic vol] 9.5 fL Normal 9.5-13.5 [facility] Comment on above: Performed By: #### C BC ####[facility] [address] [place] [address]Dr. Yadiel Acosta PLT 293 103/ul Normal 150-450 [facility] Comment on above: Performed By: #### C BC ####[facility] [address] [place] [address]Dr. Yadiel Acosta RBC 4.23 106/ul Normal 4.20-5.40 [facility] Comment on above: Performed By: #### C BC ####[facility] [address] [place] [address]Dr. Yadiel Acosta WBC 5.6 103/ul Normal 4.0-11.0 [facility] Comment on above: Performed By: #### C BC ####[facility] [address] [place], [place] [address]Dr. Yadiel Acosta CT ABD/PELV W CONon 09-19-19 CT [...] by: MINE STAHL Date: 2021-09-18 07:11 Normal [facility] LIPASEon 09-18-2021 Lipase [Catalytic activity/Vol] 141.0 U/L Normal 73.0-393.0 [facility] Comment on above: Performed By: #### L HERNANDO DIXON AMY #### [facility] [address] [place], [place] [address] Dr. Yadiel Acosta PROF 14(COMP METB)on 022 Albumin [Mass/Vol] 3.6 g/dL Normal 3.4-5.0 [facility] Comment on above: Performed By: #### L HERNANDO DIXON, ANGELINE #### [facility] [address] [place] [address] [address] Yadiel Acosta Albumin/Globulin [Mass ratio] 1.1 {ratio} Normal [facility] Comment on above: Performed By: #### L IPA, CMP, ANGELINE #### [facility] [address] [place] [address] [address] Yadiel Acosta ALP [Catalytic activity/Vol] 89 U/L Normal 46-116 [facility] Comment on above: Performed By: #### L IPA, CMP, ANGELINE #### [facility] [address] [place] [address] [address] Yadiel Acosta ALT [Catalytic activity/Vol] 22 U/L Normal 14-59 [facility] Comment on above: Performed By: #### L IPA, CMP, ANGELINE #### [facility] [address] [place] [address] [address] Yadiel Acosta Anion gap [Moles/Vol] 10.2 mmol/L Normal [facility] Comment on above: Performed By: #### L IPA, CMP, ANGELINE #### [facility] [address] [place] [address] [address] Yadiel Acosta AST [Catalytic activity/Vol] 18 U/L Normal 15-37 [facility] Comment on above: Performed By: #### L IPA, CMP, ANGELINE #### [facility] [address] [place] [address] [address] Yadiel Acosta Bilirubin [Mass/Vol] 0.9 mg/dL Normal 0.2-1.0 [facility] Comment on above: Performed By: #### L IPA, CMP, ANGELINE #### [facility] [address] [place] [address] [address] Yadiel Acosta Calcium [Mass/Vol] 8.6 mg/dL Normal 8.5-10.1 [facility] Comment on above: Performed By: #### L IPA, CMP, ANGELINE #### [facility] [address] [place] [address] [address] Yadiel Acosta Chloride [Moles/Vol] 106 mmol/L Normal 98-107 [facility] Comment on above: Performed By: #### L IPA, CMP, ANGELINE #### [facility] [address] [place] [address] [address] Yadiel Acosta CO2 [Moles/Vol] 27.4 mmol/L Normal 21.0-32.0 [facility] Comment on above: Performed By: #### L IPA, CMP, ANGELINE #### [facility] [address] [place] [address] [address] Yadiel Acosta Creatinine [Mass/Vol] 1.04 mg/dL Critically high 0.55-1.02 [facility] Comment on above: Performed By: #### L IPA, CMP, ANGELINE #### [facility] [address] [place] [address] [address] Yadiel Acosta EGFR-AF TRINIDADIAN >60 Normal >=60 [facility] Comment on above: Performed By: #### L IPA, CMP, ANGELINE #### [facility] [address] [place] [address] [address] Yadiel Acosta EGFR-NON AF TRINIDADIAN 57 mL/min/1.73m2 Critically low >=60 [facility] Comment on above: Performed By: #### L IPA, CMP, ANGELINE #### [facility] [address] [address] [address] Yadiel Acosta Globulin (S) [Mass/Vol] 3.4 g/dL Normal [facility] Comment on above: Performed By: #### L IPA, CMP, ANGELINE #### [facility] [address] [address] [address] Yadiel Acosta Glucose [Mass/Vol] 100 mg/dL Normal 74-106 [facility] Comment on above: Performed By: #### L IPA, CMP, ANGELINE #### [facility] [address] [address] [address] Yadiel Acosta Potassium [Moles/Vol] 3.6 mmol/L Normal 3.5-5.1 [facility] Comment on above: Performed By: #### L IPA, CMP, ANGELINE #### [facility] [address] [address] [address] Yadiel Acosta Protein [Mass/Vol] 7.0 g/dL Normal 6.4-8.2 [facility] Comment on above: Performed By: #### L IPA, CMP, ANGELINE #### [facility] [address] [address] [address] Yadiel Acosta Sodium [Moles/Vol] 140 mmol/L Normal 136-145 [facility] Comment on above: Performed By: #### L IPA, CMP, ANGELINE #### [facility] [address] [address] [address] Yadiel Acosta Urea nitrogen [Mass/Vol] 15.0 mg/dL Normal 7.0-18.0 [facility] Comment on above: Performed By: #### L IPA, CMP, ANGELINE #### [facility] [address] [place] [address] Dr. Yadiel Acosta Urea nitrogen/Creatinine [Mass ratio] 14.4 mg/mg Normal [facility] Comment on above: Performed By: #### L IPA, CMP, ANGELINE #### [facility] [address] [place] [address] Dr. Yadiel Acosta CBC AUTO DIFFon 09-01-2021 BASO # 0.1 103/ul Normal 0.0-0.1 [facility] Comment on above: Performed By: #### C BC ####[facility] [address] [address]DrJerman Acosta Basophils/100 WBC (Bld) 0.7 % Normal 0.2-2.0 [facility] Comment on above: Performed By: #### C BC ####[facility] [address] [address]DrJerman Acosta EO # 0.2 103/ul Normal 0.0-0.7 [facility] Comment on above: Performed By: #### C BC ####[facility] [address] [address]DrJerman Acosta Eosinophils/100 WBC (Bld) 2.3 % Normal 0.9-7.0 [facility] Comment on above: Performed By: #### C BC ####[facility] [address] [place], [place] [address]Dr. Yadiel Acosta Erythrocyte distribution width (RBC) [Ratio] 13.6 % Normal 11.0-15.0 [facility] Comment on above: Performed By: #### C BC ####[facility] [address] [address]Dr. Yadiel Acosta Hematocrit (Bld) [Volume fraction] 35.0 % Critically low 36.0-48.0 [facility] Comment on above: Performed By: #### C BC ####[facility] [address] [address]Dr. Yadiel Acosta Hemoglobin (Bld) [Mass/Vol] 11.2 g/dL Critically low 12.0-16.0 [facility] Comment on above: Performed By: #### C BC ####[facility] [address] [place], [place] [address]Dr. Yadiel Dave IG # 0.02 10e3/ul Normal 0.00-0.03 [facility] Comment on above: Performed By: #### C BC ####[facility] [address] [place], [place] [address]Dr. Yadiel Acosta IG % 0.3 % Normal 0.0-0.5 [facility] Comment on above: Performed By: #### C BC ####[facility] [address] [place], [place] [address]Dr. Yadiel Dave LYMPH # 2.5 103/ul Normal 1.2-3.8 [facility] Comment on above: Performed By: #### C BC ####[facility] [address] [place], [place] [address]Dr. Yadiel Dave Lymphocytes/100 WBC (Bld) 34.4 % Normal 20.5-60.0 [facility] Comment on above: Performed By: #### C BC ####[facility] [address] [place], [place] [address]Dr. Yadiel Dave MANUAL DIFF REQ NO Normal [facility] Comment on above: Performed By: #### C BC ####[facility] [address] [place], [place] [address]Dr. Yadiel Acosta MCH (RBC) [Entitic mass] 30.0 pg Normal 26.7-34.0 [facility] Comment on above: Performed By: #### C BC ####[facility] [address] [address]Dr. Yadiel Acosta MCHC (RBC) [Mass/Vol] 32.0 g/dL Normal 29.9-35.2 [facility] Comment on above: Performed By: #### C BC ####[facility] [address] [address]Dr. Yadiel Acosta MCV (RBC) [Entitic vol] 93.8 fL Normal 81.0-99.0 [facility] Comment on above: Performed By: #### C BC ####[facility] [address] [place], [place] [address]Dr. Yadiel Acosta MONO # 0.6 103/ul Normal 0.3-0.8 [facility] Comment on above: Performed By: #### C BC ####[facility] [address] [place], [place] [address]Dr. Yadiel Acosta Monocytes/100 WBC (Bld) 8.5 % Normal 1.7-12.0 [facility] Comment on above: Performed By: #### C BC ####[facility] [address] [place], [place] [address]Dr. Yadiel Acosta NEUT # 3.9 103/ul Normal 1.4-6.5 [facility] Comment on above: Performed By: #### C BC ####[facility] [address] [place], [place] [address]Dr. Yadiel Dave Neutrophils/100 WBC (Bld) 53.8 % Normal 43.0-75.0 [facility] Comment on above: Performed By: #### C BC ####[facility] [address] [place], [place] [address]Dr. Yadiel Acosta Platelet mean volume (Bld) [Entitic vol] 9.6 fL Normal 9.5-13.5 [facility] Comment on above: Performed By: #### C BC ####[facility] [address] [place], [place] [address]Ur. Yadiel Acosta PLT 245 103/ul Normal 150-450 [facility] Comment on above: Performed By: #### C BC ####[facility] [address] [place], [place] [address]Hu. Yadiel Acosta RBC 3.73 106/ul Critically low 4.20-5.40 [facility] Comment on above: Performed By: #### C BC ####[facility] [address] [place], [place] [address]Ql. Yadiel Acosta WBC 7.3 103/ul Normal 4.0-11.0 [facility] Comment on above: Performed By: #### C BC ####[facility] [address] [place], [place] [address]. [address] ABD/PELVIS WO CONon 09-01 [...] by: Juancarlos YUSUF Date: 2021-09-01 16:51 Normal [facility] ER URINE PROFILEon 2 Bilirubin Ql (U) Negative Normal NEGATIVE [facility] Comment on above: Performed By: #### Leonila LOMBARDI UMICRO #### [facility] [address] [place] [address] Dr. Yadiel Acosta Clarity (U) CLEAR Normal CLEAR [facility] Comment on above: Performed By: #### Leonila LOMBARDI UMICRO #### [facility] [address] [place] [address] Dr. Yadiel Acosta Color (U) LT. YELLOW Normal YELLOW [facility] Comment on above: Performed By: #### Leonila LOMBARDI UMICRO #### [facility] [address] [place] [address] Dr. Yadiel Acosta ERUKEVIND A micrscopic examina tion will be performed if indicated. Normal [facility] Comment on above: Performed By: #### Leonila LOMBARDI UMICRO #### [facility] [address] [place] [address] Dr. Yadiel Acosta Glucose Ql (U) Negative Normal NEGATIVE [facility] Comment on above: Performed By: #### Leonila LOMBARDI UMICRO #### [facility] [address] [place] [address] Dr. Yadiel Acosta Hemoglobin Ql (U) TRACE-INTACT Abnormal NEGATIVE [facility] Comment on above: Performed By: #### Leonila LOMBARDI UMICRO #### [facility] [address] [place] [address] Dr. Yadiel Acosta Ketones Ql (U) Negative Normal NEGATIVE [facility] Comment on above: Performed By: #### Leonila LOMBARDI UMICRO #### [facility] [address] [place] [address] Dr. Yadiel Acosta LEUKOCYTES Negative Normal NEGATIVE [facility] Comment on above: Performed By: #### Leonila LOMBARDI UMICRO #### [facility] [address] [place] [address] Dr. Yadiel Acosta Nitrite Ql (U) Negative Normal NEGATIVE [facility] Comment on above: Performed By: #### Leonila LOMBARDI UMICRO #### [facility] [address] [place] [address] Dr. Yadiel Acosta pH (U) 7.0 [pH] Normal 5-9 [facility] Comment on above: Performed By: #### Leonila LOMBARDI ICRO #### [facility] [address] [place] [address] Dr. Yadiel Acosta SPEC GRAVITY 1.015 Normal 1.005-<=1. 025 [facility] Comment on above: Performed By: #### Leonila LOMBARDI ICRO #### [facility] [address] [place] [address] Dr. Yadiel Acosta UA PROTEIN Negative Normal NEGATIVE/ TRACE [facility] Comment on above: Performed By: #### Leonila LOMBARDI ICRO #### [facility] [address] [place] [address] Dr. Yadiel Acosta UR MICRO IND INDICATED Normal [facility] Comment on above: Performed By: #### ROCIO ALLANRO #### [facility] [address] [place] [address] Dr. Yadiel Acosta Urobilinogen Qn (U) 0.2 {Stan'U}/dL Normal 0.2 - 1. 0 [facility] Comment on above: Performed By: #### Leonila LOMBARDI ICRO #### [facility] [address] [place] [address] Dr. Yadiel Acosta PROF 14(COMP METB)on 022 Albumin [Mass/Vol] 3.7 g/dL Normal 3.4-5.0 [facility] Comment on above: Performed By: #### C MP #### [facility] [address] [address] [address] Yadiel Acosta Albumin/Globulin [Mass ratio] 1.1 {ratio} Normal [facility] Comment on above: Performed By: #### C MP #### [facility] [address] [address] [address] Yadiel Acosta ALP [Catalytic activity/Vol] 77 U/L Normal 46-116 [facility] Comment on above: Performed By: #### C MP #### [facility] [address] [address] [address] Yadiel Acosta ALT [Catalytic activity/Vol] 25 U/L Normal 14-59 [facility] Comment on above: Performed By: #### C MP #### [facility] [address] [place] [address] Dr. Yadiel Acosta Anion gap [Moles/Vol] 9.8 mmol/L Normal [facility] Comment on above: Performed By: #### C MP #### [facility] [address] [place] [address] Dr. Yadiel Acosta AST [Catalytic activity/Vol] 21 U/L Normal 15-37 [facility] Comment on above: Performed By: #### C MP #### [facility] [address] [place] [address] Dr. Yadiel Acosta Bilirubin [Mass/Vol] 1.0 mg/dL Normal 0.2-1.0 [facility] Comment on above: Performed By: #### C MP #### [facility] [address] [place] [address] Dr. Yadiel Acosta Calcium [Mass/Vol] 8.2 mg/dL Critically low 8.5-10.1 [facility] Comment on above: Performed By: #### C MP #### [facility] [address] [place] [address] Dr. Yadiel Acosta Chloride [Moles/Vol] 107 mmol/L Normal 98-107 [facility] Comment on above: Performed By: #### C MP #### [facility] [address] [address] [address] Yadiel Acosta CO2 [Moles/Vol] 27.3 mmol/L Normal 21.0-32.0 [facility] Comment on above: Performed By: #### C MP #### [facility] [address] [place] [address] Dr. Yadiel Acosta Creatinine [Mass/Vol] 0.98 mg/dL Normal 0.55-1.02 [facility] Comment on above: Performed By: #### C MP #### [facility] [address] [address] [address] Yadiel Acosta EGFR-AF TRINIDADIAN >60 Normal >=60 [facility] Comment on above: Performed By: #### C MP #### [facility] [address] [place] [address] Dr. Yadiel Acosta EGFR-NON AF TRINIDADIAN >60 Normal >=60 [facility] Comment on above: Performed By: #### C MP #### [facility] [address] [address] [address] Yadiel Acosta Globulin (S) [Mass/Vol] 3.3 g/dL Normal [facility] Comment on above: Performed By: #### C MP #### [facility] [address] [address] [address] Yadiel Acosta Glucose [Mass/Vol] 88 mg/dL Normal 74-106 [facility] Comment on above: Performed By: #### C MP #### [facility] [address] [place] [address] Dr. Yadiel Acosta Potassium [Moles/Vol] 4.1 mmol/L Normal 3.5-5.1 [facility] Comment on above: Performed By: #### C MP #### [facility] [address] [place] [address] Dr. Yadiel Acosta Protein [Mass/Vol] 7.0 g/dL Normal 6.4-8.2 [facility] Comment on above: Performed By: #### C MP #### [facility] [address] [place] [address] Dr. Yadiel Acosta Sodium [Moles/Vol] 140 mmol/L Normal 136-145 [facility] Comment on above: Performed By: #### C MP #### [facility] [address] [place] [address] Dr. Yadiel Acosta Urea nitrogen [Mass/Vol] 22.0 mg/dL Critically high 7.0-18.0 [facility] Comment on above: Performed By: #### C MP #### [facility] [address] [place] [address] Dr. Yadiel Acosta Urea nitrogen/Creatinine [Mass ratio] 22.4 mg/mg Normal [facility] Comment on above: Performed By: #### C MP #### [facility] [address] [place] [address] Dr. Yadiel Acosta URINE MICROSCOPIC ONLYon BACTERIA NONE SEEN Normal NONE SEEN [facility] Comment on above: Performed By: #### E RUR, UMICRO #### [facility] [address] [place] [address] Dr. Yadiel Acosta Bacteria identified Cx Nom (U) NOT INDICATED Normal [facility] Comment on above: Performed By: #### E RUR, UMICRO #### [facility] [address] [place] [address] Dr. Yadiel Acosta CAST NONE SEEN Normal NONE SEEN [facility] Comment on above: Performed By: #### E RUR, UMICRO #### [facility] [address] [place] [address] Dr. Yadiel Acosta Crystals LM Nom (Urine sed) NONE SEEN Normal NONE SEEN [facility] Comment on above: Performed By: #### E RUR, UMICRO #### [facility] [address] [place] [address] Dr. Yadiel Acosta Epithelial cells LM Ql (Urine sed) RARE Normal NONE SEEN /RARE [facility] Comment on above: Performed By: #### E RUR, UMICRO #### [facility] [address] [place] [address] Dr. Yadiel Acosta MUCOUS NONE SEEN Normal NONE SEEN [facility] Comment on above: Performed By: #### E RUR, UMICRO #### [facility] [address] [address] [address] Yadiel Acosta RBC 0-2 Normal 0-2 [facility] Comment on above: Performed By: #### LALY ALLAN #### [facility] [address] [address] [address] Yadiel Acosta WBC NONE SEEN Normal NONE SEEN [facility] Comment on above: Performed By: #### LALY ALLAN #### [facility] [address] [address] [address] Yadiel Acosta C-Reactive Proteinon 022 CRP IV <0.[address] [facility] Comment on above: Performed By: #### C BCAD, ESR, CRP, CMP #### [facility] [address] [place], [place] [id number] Complete Blood Count with Au to Diffon 06-21-2021 Basophils (Bld) [#/Vol] 0.04 10*3/uL Normal 0.00-0.20 [facility] Comment on above: Performed By: #### C BCAD, ESR, CRP, CMP #### [facility] [address] [place], [place] [id number] Basophils/100 WBC (Bld) 0.7 % Normal [facility] Comment on above: Performed By: #### C BCAD, ESR, CRP, CMP #### [facility] [address] [place], [place] [id number] Eosinophils (Bld) [#/Vol] 0.13 10*3/uL Normal 0.02-0.50 [facility] Comment on above: Performed By: #### C BCAD, ESR, CRP, CMP #### [facility] [address] [place], [place] [id number] Eosinophils/100 WBC (Bld) 2.2 % Normal [facility] Comment on above: Performed By: #### C BCAD, ESR, CRP, CMP #### [facility] [address] [place], [place] [id number] Erythrocyte distribution width (RBC) [Ratio] 13.1 % Normal 11.0-15.0 [facility] Comment on above: Performed By: #### C BCAD, ESR, CRP, CMP #### [facility] [address] [place], [place] [id number] Hematocrit (Bld) [Volume fraction] 39.5 % Normal 35.0-47.0 [facility] Comment on above: Performed By: #### C BCAD, ESR, CRP, CMP #### [facility] [address] [place], [place] [id number] Hemoglobin (Bld) [Mass/Vol] 12.8 g/dL Normal 11.6-15.5 [facility] Comment on above: Performed By: #### C BCAD, ESR, CRP, CMP #### [facility] [address] [place], [place] [id number] Lymphocytes (Bld) [#/Vol] 1.6 10*3/uL Normal 0.9-3.9 [facility] Comment on above: Performed By: #### C BCAD, ESR, CRP, CMP #### [facility] [address] [place], [place] [id number] Lymphocytes/100 WBC (Bld) 27.4 % Normal [facility] Comment on above: Performed By: #### C BCAD, ESR, CRP, CMP #### [facility] [address] [place], [place] [id number] MCH (RBC) [Entitic mass] 29.8 pg Normal 27.0-33.0 [facility] Comment on above: Performed By: #### C BCAD, ESR, CRP, CMP #### [facility] [address], [place] [id number] MCHC (RBC) [Mass/Vol] 32.4 g/dL Normal 32.0-36.0 [facility] Comment on above: Performed By: #### C BCAD, ESR, CRP, CMP #### [facility] [address] [place], [place] [id number] MCV (RBC) [Entitic vol] 92 fL Normal 80-100 [facility] Comment on above: Performed By: #### C BCAD, ESR, CRP, CMP #### [facility] [address] [place], [place] [id number] Monocytes (Bld) [#/Vol] 0.5 10*3/uL Normal 0.2-0.9 [facility] Comment on above: Performed By: #### C BCAD, ESR, CRP, CMP #### [facility] [address] [place], [place] [id number] Monocytes/100 WBC (Bld) 8.1 % Normal [facility] Comment on above: Performed By: #### C BCAD, ESR, CRP, CMP #### [facility] [address] [place], [place] [id number] Neutrophils (Bld) [#/Vol] 3.6 10*3/uL Normal 1.5-7.8 [facility] Comment on above: Performed By: #### C BCAD, ESR, CRP, CMP #### [facility] [address] [place], [place] [id number] Neutrophils/100 WBC (Bld) 61.4 % Normal [facility] Comment on above: Performed By: #### C BCAD, ESR, CRP, CMP #### [facility] [address] [place], [place] [id number] Platelet mean volume (Bld) [Entitic vol] 10.40 fL Normal 7.50-12.50 [facility] Comment on above: Performed By: #### C BCAD, ESR, CRP, CMP #### [facility] [address] [place], [place] [id number] Platelets (Bld) [#/Vol] 274 10*3/uL Normal 140-400 [facility] Comment on above: Performed By: #### C BCAD, ESR, CRP, CMP #### [facility] [address] [place], [place] [id number] RBC (Bld) [#/Vol] 4.30 10*6/uL Normal 3.90-5.20 [facility] Comment on above: Performed By: #### C BCAD, ESR, CRP, CMP #### [facility] [address], [place] [id number] RDW-SD 43.2 fL Normal 37.0-50.0 [facility] Comment on above: Performed By: #### C BCAD, ESR, CRP, CMP #### [facility] [address] [place], [place] [id number] WBC (Bld) [#/Vol] 5.9 10*3/uL Normal 3.8-11.0 [facility] [place] [facility] Comment on above: Performed By: #### C BCAD, ESR, CRP, CMP #### [facility] [address] [place], [place] [id number] Comprehensive Metabolic Pane aidee 06-21-2021 Albumin [Mass/Vol] 4.4 g/dL Normal 3.6-5.1 [facility] [place] [facility] Comment on above: Performed By: #### C BCAD, ESR, CRP, CMP #### [facility] [address] [place], [place] [id number] Albumin/Globulin [Mass ratio] 1.8 {ratio} Normal 1.0-2.5 [facility] Comment on above: Performed By: #### C BCAD, ESR, CRP, CMP #### [facility] [address] [place], [place] [id number] ALP [Catalytic activity/Vol] 77 U/L Normal 35-119 [facility] Comment on above: Performed By: #### C BCAD, ESR, CRP, CMP #### [facility] [address] [place], [place] [id number] ALT [Catalytic activity/Vol] 15 U/L Normal 6-33 [facility] Comment on above: Result Comment: 02/07 Female reference range changed. Performed By: #### C BCAD, ESR, CRP, CMP #### [facility] [address] [place], [place] [id number] Anion gap [Moles/Vol] 16 mmol/L Normal 12-20 [facility] Comment on above: Result Comment: Effe ctive 03/15/2019 reference range changed. Performed By: #### C BCAD, ESR, CRP, CMP #### [facility] [address] [place], [place] [id number] AST [Catalytic activity/Vol] 21 U/L Normal 9-34 [facility] Comment on above: Performed By: #### C BCAD, ESR, CRP, CMP #### [facility] [address] [place], [place] [id number] Bilirubin [Mass/Vol] 0.48 mg/dL Normal 0.30-1.20 [facility] Comment on above: Performed By: #### C BCAD, ESR, CRP, CMP #### [facility] [address] [place], [place] [id number] BUN/CREA 16 Ratio Normal 6-22 [facility] Comment on above: Performed By: #### C BCAD, ESR, CRP, CMP #### [facility] [address] [place], [place] [id number] Calcium [Mass/Vol] 9.3 mg/dL Normal 8.6-10.2 [facility] Comment on above: Performed By: #### C BCAD, ESR, CRP, CMP #### [facility] [address] [place], [place] [id number] Chloride [Moles/Vol] 103 mmol/L Normal 98-107 [facility] Comment on above: Performed By: #### C BCAD, ESR, CRP, CMP #### [facility] [address] [place], [place] [id number] CO2 [Moles/Vol] 27 mmol/L Normal 20-31 [facility] Comment on above: Performed By: #### C BCAD, ESR, CRP, CMP #### [facility] [address] [place], [place] [id number] Creatinine [Mass/Vol] 1.2 mg/dL Normal 0.6-1.4 [facility] Comment on above: Performed By: #### C BCAD, ESR, CRP, CMP #### [facility] [address] [place], [place] [id number] eGFRAA 56 mL/min/1.73m2 Low >60 [facility] Comment on above: Performed By: #### C BCAD, ESR, CRP, CMP #### [facility] [address] [place], [place] [id number] eGFRNAA 46 mL/min/1.73m2 Low >60 [facility] Comment on above: Performed By: #### C BCAD, ESR, CRP, CMP #### [facility] [address] [place], [place] [id number] Globulin (S) [Mass/Vol] 2.4 g/dL Normal 1.9-3.7 [facility] Comment on above: Performed By: #### C BCAD, ESR, CRP, CMP #### [facility] [address] [place], [place] [id number] Glucose [Mass/Vol] 112 mg/dL High 65-99 [facility] Comment on above: Result Comment: For FASTING Glucose --- ADA reference ranges: Normal 65-99 mg/dl Prediabetes 100-125 Diabetes >/= 126 Performed By: #### C BCAD, ESR, CRP, CMP #### [facility] [address] [place], [place] [id number] Potassium [Moles/Vol] 3.5 mmol/L Normal 3.5-5.5 [facility] Comment on above: Performed By: #### C BCAD, ESR, CRP, CMP #### [facility] [address] [place], [place] [id number] Protein [Mass/Vol] 6.8 g/dL Normal 6.1-8.1 [facility] Comment on above: Performed By: #### C BCAD, ESR, CRP, CMP #### [facility] [address] [place], [place] [id number] Sodium [Moles/Vol] 142 mmol/L Normal 135-146 [facility] Comment on above: Performed By: #### C BCAD, ESR, CRP, CMP #### [facility] [address] [place], [place] [id number] Urea nitrogen [Mass/Vol] 20 mg/dL Normal 7-25 [facility] Comment on above: Performed By: #### C BCAD, ESR, CRP, CMP #### [facility] [address] [place], [place] [id number] Q - REMI MULTIPLEX W/ REFLEX TO 11 ANTIBODY CASCADEon 06-21-2021 ANACHOICE(R) SCREEN Negative Normal NEGATIVE [facility] Comment on above: Order Comment: [facility] performed at: [facility] [employer] [facility], [address] [place] [address], [address] [place], [address], Co Director: Joao Meza MD [facility] Collection Date/Time: [facility] Results Received Date/Time: [facility] Reported Date/Time: Result Comment: A ne gative REMI Multiplex, with Reflex to 11 Antibody [place] indicates the absence of detectable antibodies to component analytes consisting of double stranded DNA (dsDNA), chromatin, ribonucleoprotein (SECURITY SCREENER), Leal/SECURITY SCREENER (Sm/SECURITY SCREENER), Leal (Sm), SS-A, SS-B, Radha-1, centromere B, Scl-70 and ribosomal P. A negative result should be interpreted in the context of the clinical and laboratory findings and does not rule out autoimmune disease characterized by other autoantibody specificities such as rheumatoid arthritis, autoimmune hepatitis, primary biliary cirrhosis, autoimmune thyroiditis, Dorchester's disease, pernicious anemia, autoimmune neuropathies, vasculitis, celiac disease, and bullous disease. For additional information, please refer to http://education.[employer]/faq/JOC354 (This link is being provided for informational/ educational purposes only.) Performed By: #### [id number] #### [facility] [address] [place] [address] RBC Sedimentation Rateon ESR (Bld) [Velocity] 23.00 mm/h High 0.00-20.00 [facility] Specialist Comment on above: Performed By: #### C BCAD, ESR, CRP, CMP #### [facility] [address] [place], [place] [id number] Vital Signs Date Time Vital Sign Value Performing Clinician Facility 04-06-2024 [id number] Body height 157.48 cm [facility] 04-06-2024 13:16-0500 Body mass index (BMI) [Ratio] 27.1 kg/m2 [facility] 04-06-2024 13:16-0500 Body temperature 98.7 [degF] [facility] 04-06-2024 13:16-0500 Body weight 67.24 kg [facility] 04-06-2024 13:16-0500 Diastolic blood pressure 82 mm[Hg] [facility] 04-06-2024 13:16-0500 Heart rate 60 /min [facility] 04-06-2024 13:16-0500 Respiratory rate 14 /min [facility] 04-06-2024 13:16-0500 SaO2% (BldA) [Mass fraction] 98 % [facility] 04-06-2024 13:16-0500 Systolic blood pressure 121 mm[Hg] [facility] 12-22-2023 11:24-0400 Body height 157.5 cm Roxana Vicente PA Work Phone: [facility] 12-22-2023 11:24-0400 Body mass index (BMI) [Ratio] 27.07 kg/m2 Roxana Vicente PA Work Phone: [facility] 12-22-2023 11:24-0400 Body temperature 97.3 [degF] Roxana Vicente PA Work Phone: [facility] 12-22-2023 11:24-0400 Body weight 67.13 kg Roxana Vicente PA Work Phone: [facility] 12-22-2023 11:24-0400 Diastolic blood pressure 78 mm[Hg] Roxana Vicente PA Work Phone: [facility] 12-22-2023 11:24-0400 Heart rate 71 /min Roxana Vicente PA Work Phone: [facility] 12-22-2023 11:24-0400 SaO2% (BldA) [Mass fraction] 98 % Roxana Vicente PA Work Phone: [facility] 12-22-2023 11:24-0400 Systolic blood pressure 132 mm[Hg] Roxana Vicente PA Work Phone: [facility] 07-02-2023 11:24-0400 Body height 157.5 cm Season Maye BRIGHT.VICE PRESIDENT OF MANUFACTURING Work Phone: [facility] 07-02-2023 11:24-0400 Body mass index (BMI) [Ratio] 25.77 kg/m2 Season Maye BRIGHT.VICE PRESIDENT OF MANUFACTURING Work Phone: [facility] 07-02-2023 11:24-0400 Body temperature 97.81 [degF] Season Maye COLBYN.VICE PRESIDENT OF MANUFACTURING Work Phone: [facility] 07-02-2023 11:24-0400 Body weight 63.91 kg Season Maye COLBYN.VICE PRESIDENT OF MANUFACTURING Work Phone: [facility] 07-02-2023 11:24-0400 Diastolic blood pressure 61 mm[Hg] Season Maye COLBYN.VICE PRESIDENT OF MANUFACTURING Work Phone: [facility] 07-02-2023 11:24-0400 Heart rate 53 /min Season Maye COLBYN.VICE PRESIDENT OF MANUFACTURING Work Phone: [facility] 07-02-2023 11:24-0400 SaO2% (BldA) [Mass fraction] 100 % Season Maye COLBYN.VICE PRESIDENT OF MANUFACTURING Work Phone: [facility] 07-02-2023 11:24-0400 Systolic blood pressure 102 mm[Hg] Season Maye COLBYN.VICE PRESIDENT OF MANUFACTURING Work Phone: [facility] 07-02-2023 09:40-0400 Diastolic blood pressure 61 mm[Hg] Nicanor Ferris MD Work Phone: [facility] 07-02-2023 09:40-0400 Heart rate 47 /min Nicaonr Ferris MD Work Phone: [facility] 07-02-2023 09:40-0400 Respiratory rate 18 /min Nicanor Ferris MD Work Phone: [facility] 07-02-2023 09:40-0400 SaO2% (BldA) [Mass fraction] 100 % Nicanor Ferris MD Work Phone: [facility] 07-02-2023 09:40-0400 Systolic blood pressure 96 mm[Hg] Nicanor Ferris MD Work Phone: [facility] 07-02-2023 08:21-0400 Body height 157.5 cm Nicanor Ferris MD Work Phone: [facility] 07-02-2023 08:21-0400 Body mass index (BMI) [Ratio] 25.79 kg/m2 Nicanor Ferris MD Work Phone: [facility] 07-02-2023 08:21-0400 Body temperature 96.8 [degF] Nicanor Ferris MD Work Phone: [facility] 07-02-2023 08:21-0400 Body weight 63.96 kg Nicanor Ferrsi MD Work Phone: [facility] 06-25-2023 14:31-0400 Body height 157.5 cm Nicanor Ferris MD Work Phone: [facility] 06-25-2023 14:31-0400 Body mass index (BMI) [Ratio] 25.57 kg/m2 Nicanor Ferris MD Work Phone: [facility] 06-25-2023 14:31-0400 Body temperature 97.39 [degF] Nicanor Ferris MD Work Phone: [facility] 06-25-2023 14:31-0400 Body weight 63.41 kg Nicanor Ferris MD Work Phone: [facility] 06-25-2023 14:31-0400 Diastolic blood pressure 46 mm[Hg] Nicanor Ferris MD Work Phone: [facility] 06-25-2023 14:31-0400 Heart rate 58 /min Nicanor Ferris MD Work Phone: [facility] 06-25-2023 14:31-0400 Respiratory rate 14 /min Nicanor Ferris MD Work Phone: [facility] 06-25-2023 14:31-0400 SaO2% (BldA) [Mass fraction] 98 % Nicanor Ferris MD Work Phone: [facility] 06-25-2023 14:31-0400 Systolic blood pressure 94 mm[Hg] Nicanor Ferris MD Work Phone: [facility] 04-07-2023 10:41-0500 Body temperature 96.98 [degF] Malina Castaneda [facility] 04-07-2023 10:41-0500 Diastolic blood pressure 61 mm[Hg] Malina Castaneda [facility] 04-07-2023 10:41-0500 Heart rate 52 /min Malina Castaneda [facility] 04-07-2023 10:41-0500 Systolic blood pressure 90 mm[Hg] Malina Castaneda [facility] 03-30-2023 07:00-0500 Diastolic blood pressure 78 mm[Hg] DO Juancarlos Pepper Work Phone: [facility] 03-30-2023 07:00-0500 Heart rate 20 /min DO Juancarlos Pepper Work Phone: [facility] 03-30-2023 07:00-0500 Respiratory rate 20 /min DO Juancarlos Pepper Work Phone: [facility] 03-30-2023 07:00-0500 SaO2% (BldA) [Mass fraction] 96 % DO Juancarlos Pepper Work Phone: [facility] 03-30-2023 07:00-0500 Systolic blood pressure 148 mm[Hg] DO Juancarlos Pepper Work Phone: [facility] 03-30-2023 04:21-0500 Body height 157.48 cm DO Juancarlos Pepper Work Phone: [facility] 03-30-2023 04:21-0500 Body temperature 97.1 [degF] DO Juancarlos Pepper Work Phone: [facility] 03-30-2023 04:21-0500 Body weight 65.5 kg DO Juancarlos Pepper Work Phone: [facility] 03-24-2023 15:00-0500 Diastolic blood pressure 82 mm[Hg] DO Juancarlos Pepper Work Phone: [facility] 03-24-2023 15:00-0500 Heart rate 60 /min DO Juancarlos Pepper Work Phone: [facility] 03-24-2023 15:00-0500 Respiratory rate 16 /min DO Juancarlos Pepper Work Phone: [facility] 03-24-2023 15:00-0500 SaO2% (BldA) [Mass fraction] 96 % DO Juancarlos Pepper Work Phone: [facility] 03-24-2023 15:00-0500 Systolic blood pressure 142 mm[Hg] DO Juancarlos Pepper Work Phone: [facility] 03-24-2023 12:27-0500 Body height 157.48 cm DO Juancarlos Pepper Work Phone: [facility] 03-24-2023 12:27-0500 Body temperature 97.9 [degF] DO Juancarlos Pepper Work Phone: [facility] 03-24-2023 12:27-0500 Body weight 66.1 kg DO Juancarlos Pepper Work Phone: [facility] 04-11-2022 14:33-0500 Body height 157.5 cm Lauren Krishnan MD Work Phone: [facility] 04-11-2022 14:33-0500 Body mass index (BMI) [Ratio] 23.23 kg/m2 Lauren Krishnan MD Work Phone: [facility] 04-11-2022 14:33-0500 Body weight 57.61 kg Lauren Krishnan MD Work Phone: [facility] 04-11-2022 14:30-0500 Diastolic blood pressure 94 mm[Hg] Lauren Krishnan MD Work Phone: [facility] 04-11-2022 14:30-0500 SaO2% (BldA) [Mass fraction] 98 % Lauren Krishnan MD Work Phone: [facility] 04-11-2022 14:30-0500 Systolic blood pressure 138 mm[Hg] Lauren Krishnan MD Work Phone: [facility] 04-11-2022 14:25-0500 Body temperature 98.4 [degF] Lauren Krishnan MD Work Phone: [facility] 04-11-2022 14:25-0500 Heart rate 85 /min Lauren Krishnan MD Work Phone: [facility] 04-11-2022 14:25-0500 Respiratory rate 18 /min Lauren Krishnan MD Work Phone: [facility] 09-24-2019 17:26-0400 BP Diastolic 79 mm[Hg] Salim Rolando [facility] [id number] Work Phone: 09-24-2019 17:26-0400 BP Systolic 128 mm[Hg] Salim Rolando [facility] [id number] Work Phone: 09-24-2019 17:26-0400 Pulse (Heart Rate) 90 /min Salim Rolando [facility] [id number] Work Phone: 09-24-2019 17:26-0400 Respiratory Rate 16 /min Salim Rolando [facility] [id number] Work Phone: 09-24-2019 17:26-0400 3 1 Salim Rolando [facility] [id number] Work Phone: Comment on above: Pain Scale Encounters Encounter Date Encounter Type Care Provider Facility Start: 05-05-2024 End: 05-05-2024 Refill Sindy Smith LPN Work Phone: [facility] 230 Comment on above: Nonintractable heada jesus, unspecified chronicity pattern, unspecified headache type Start: 05-03-2024 End: 05-03-2024 Refill Nico Pepper DO Work Phone: [facility] 230 Comment on above: Complex regional deshawn n syndrome type 1, affecting unspecified site; Disorder of intervertebral disc of lumbar spine; Chronic pain syndrome; Neuropathy Start: 04-20-2024 End: 04-20-2024 ambulatory [facility] Start: 04-06-2024 End: 04-06-2024 ambulatory [facility] Work Phone: Start: 04-06-2024 End: 04-06-2024 Patient encounter procedure [facility] Work Phone: Start: 04-01-2024 End: 04-02-2024 Refill Nico Pepper DO Work Phone: [facility] 230 Comment on above: Complex regional deshawn n syndrome type 1, affecting unspecified site; Disorder of intervertebral disc of lumbar spine; Chronic pain syndrome; Neuropathy Start: 02-26-2024 End: 02-27-2024 Refill Nico Pepper DO Work Phone: [facility] 230 Comment on above: Complex regional deshawn n syndrome type 1, affecting unspecified site; Disorder of intervertebral disc of lumbar spine; Chronic pain syndrome; Neuropathy Bipolar affective di sorder, remission status unspecified ([facility]); Anxiety and depression ([facility]) Start: 01-28-2024 End: 01-28-2024 Refill Nico Pepper DO Work Phone: [facility] 230 Comment on above: Nonintractable heada jesus, unspecified chronicity pattern, unspecified headache type Start: 01-25-2024 End: 01-26-2024 Refill Nico Pepper DO Work Phone: [facility] 230 Comment on above: Complex regional deshawn n syndrome type 1, affecting unspecified site; Disorder of intervertebral disc of lumbar spine; Chronic pain syndrome; Neuropathy Start: 01-14-2024 ambulatory [facility] Start: 01-08-2024 End: 01-08-2024 Refill Nico Pepper DO Work Phone: [facility] 230 Comment on above: Other chronic pain Start: 01-07-2024 End: 01-07-2024 ambulatory [facility] Start: 12-27-2023 End: 12-29-2023 Refill Nico Pepper DO Work Phone: [facility] 230 Comment on above: Complex regional deshawn n syndrome type 1, affecting unspecified site; Disorder of intervertebral disc of lumbar spine; Chronic pain syndrome; Neuropathy Start: 12-22-2023 End: 12-22-2023 Bamboo flowsheet Roxana Vicente PA Work Phone: [facility] 230 Start: 12-22-2023 End: 12-22-2023 Bamboo flowsheet Roxana Vicente PA Work Phone: [facility] 230 Start: 12-22-2023 End: 12-22-2023 Office outpatient visit 25 minutes Roxana SANTIAGO Work Phone: [facility] 230 Comment on above: Bacterial conjunctiv itis of both eyes (Primary Dx); URI, acute; Need for vaccination; Nephrolithiasis Start: 12-22-2023 End: 12-22-2023 ambulatory ROXANA VICENTE Not Available Start: 11-18-2023 End: 11-19-2023 Refill Nico Pepper DO Work Phone: [facility] 230 Comment on above: Complex regional deshawn n syndrome type 1, affecting unspecified site; Disorder of intervertebral disc of lumbar spine; Chronic pain syndrome; Neuropathy Start: 11-05-2023 End: 11-05-2023 ambulatory [facility] Start: 09-17-2023 End: 09-17-2023 ambulatory NICO PEPPER Not Available Start: 08-14-2023 ambulatory Claudio Forrester Facility:[facility] Start: 08-06-2023 End: 08-06-2023 ambulatory [facility] Start: 07-22-2023 ambulatory [facility] Start: 07-10-2023 ambulatory Josephine [...] Start: 06-25-2023 End: 06-25-2023 ambulatory Michael Raman RNsupervisor type photography Start: 06-25-2023 End: 06-25-2023 Subsequent hospital visit [...] Start: 05-13-2023 End: 05-13-2023 ambulatory Malina Castaneda Facility:[facility] Start: 05-07-2023 End: 05-07-2023 ambulatory [facility] Start: 04-28-2023 End: 04-28-2023 ambulatory Malina Castaneda Facility:[facility] Start: 04-28-2023 End: 04-28-2023 Patient encounter procedure Malina Castaneda [facility] Start: 04-24-2023 Refill Nico levy DO Work Phone: [facility] 230 Comment on above: Complex regional deshawn n syndrome type 1, affecting unspecified site; Disorder of intervertebral disc of lumbar spine; Chronic pain syndrome; Neuropathy Start: 04-23-2023 End: 04-23-2023 ambulatory Malina Castaneda Facility:[facility] Start: 04-23-2023 End: 04-23-2023 Patient encounter procedure Malina Castaneda [facility] Start: 04-16-2023 End: 04-16-2023 ambulatory XXXX NONE Facility:[facility] Start: 04-16-2023 End: 04-16-2023 Patient encounter procedure XXXX NONE [facility] Start: 04-15-2023 End: 04-15-2023 ambulatory Malina Castaneda Facility:[facility] Start: 04-07-2023 End: 04-07-2023 ambulatory Malina A Tonya Facility:[facility] Start: 04-07-2023 End: 04-07-2023 Patient encounter procedure Malina Castaneda [facility] Start: 03-30-2023 End: 03-30-2023 Emergency department patient visit Juancarlos Pepper Facility:[facility] Start: 03-30-2023 End: 03-30-2023 Emergency department patient visit DO Juancarlos Pepper Work Phone: [facility] Work Phone: Start: 03-24-2023 End: 03-24-2023 Emergency department patient visit Tad Barger Facility:[facility] Start: 03-24-2023 End: 03-24-2023 Emergency department patient visit DO Juancarlos Pepper Work Phone: [facility] Work Phone: Start: 02-28-2023 End: 02-28-2023 ambulatory NICO PEPPER Not Available Start: 02-18-2023 End: 02-18-2023 ambulatory NICO PEPPER Not Available Start: 10-23-[address] Nico Pepper Jr Facility:[id number] Start: 10-23-2022 [id number], Provider : Dc Wu , Status: Pen, Time: 11:00 AM Nico Pepper [facility] Work Phone: Start: 10-23-2022 Patient encounter procedure Nico Pepper Work Phone: [facility] Work Phone: Start: 10-17-2022 Patient encounter procedure Nico Pepper Work Phone: [facility] Work Phone: Start: 10-17-[address] Nico Pepper Jr Facility:[id number] Start: 10-03-2022 Image Encounter Nico levy Work Phone: [facility] Work Phone: Start: 09-25-2022 Chart Update Nico levy Work Phone: [facility] Work Phone: Start: 09-23-2022 Patient encounter procedure Nico Pepper [facility] Work Phone: Start: 09-23-[address] Nico Pepper Jr Facility:[id number] Start: 09-23-[address] Nico Pepper Jr Facility:[id number] Start: 08-26-2022 Patient encounter procedure Nico Pepper Work Phone: [facility] [place] Work Phone: Start: 08-08-2022 Patient encounter procedure Nico Pepper Work Phone: [facility] [place] Work Phone: Start: 07-08-[address] Madeleine Marshall Facility:[facility] Start: 06-13-2022 End: 06-13-[address] MARIA M LIEBERMAN . Facility: Start: 04-11-2022 Emergency department patient visit LAUREN EULOGIO [facility] Start: 04-11-2022 End: 04-11-2022 Emergency department patient visit Lauren Krishnan MD Work Phone: [facility] ED Comment on above: Constipation, unspec ified constipation type (Primary Dx); Kidney stone Start: 01-17-[address] SCAR LAZARO . Faci lity:[facility]1 Start: 12-25-2021 End: 12-26-2021 ambulatory BUDDY CAVANAUGH Facility: Start: 10-31-2021 End: 11-01-2021 ambulatory BUDDY CAVANAUGH Facility:[facility] Start: 10-18-2021 End: 10-19-[address] SCAR LAZARO . Facility: Start: 10-02-2021 End: 10-02-[address] SCAR LAZARO . Facility: Start: 09-18-2021 End: 09-18-[address] BRY BHATIA Facility:[facility] Start: 09-18-2021 End: 09-18-[address] KYMBERLY LEAL Facility: Start: 09-06-2021 End: 09-07-[address] Ryan PEPPER Facility:[facility] Start: 09-01-2021 End: 09-01-[address] KIRAN SOLANO . Facility:[facility] Start: 08-21-2021 End: 08-21-[address] Ryan PEPPER Facility:[facility] Start: 07-10-2021 End: 07-11-[address] Ryan PEPPER Facility:[facility] Procedures Date Procedure Procedure Detail Performing Clinician [...] shockwave lithotripsy of calculus of kidney Malina Locoz Appendectomy Malina Locoz Arthroscopy of knee Malina Enrique inmetjusto Cholecystectomy Malina Catia zuniga Hysterectomy Malina Locoz Plan of Treatment Date Care Activity Detail Author Start: 11-15-2032 Urine microalbumin profile DTaP,Tdap,Td Vaccine (2 - Td or Tdap) [facility] Start: 10-12-2031 Screening for malign ant neoplasm of colon [facility] Start: 07-01-2024 BP Controlled (<130/80) BP Con trolled (<130/80) [facility] Start: 12-22-2023 End: 12-22-2023 Patient encounter procedure 12/22/2023 11:20 AM EDT Office Visit [facility] [address] [place] [address] Roxana Vicente PA [address] [place] [address] Arrived [facility] 230 Comment on above: Arrived Start: 11-09-2023 Influenza vaccination Influenza Vacc ine (#1) [facility] Start: 03-10-2023 Behavioral Health Screening Behavioral Health Screening [facility] Start: 03-10-2023 Depression Assessment Depression Ass essment [facility] Start: 12-17-2022 FUV, Provider: Humphrey Pfeiffer, Status: Pen, Time: 10:15 AM FUV, Provider: Humphrey Pfeiffer, Status: Pen, Time: 10:[address] [facility] Work Phone: Start: 10-17-2022 FUV, Provider: Humphrey Pfeiffer, Status: Pen, Time: 11:15 AM [facility]UV, Provider: Humphrey Pfeiffer, Status: Pen, Time: 11:[address] [facility] Work Phone: Start: 10-08-2021 Influenza vaccination Flu vaccine (# 1) [facility] Start: 05-23-2021 COVID-19 Vaccine (3 - Booster for Felicia series) COVID-19 Vaccine (3 - Booster for Felicia series) [facility] Start: 01-02-2020 Screening for malign ant neoplasm of breast Mammogram [facility] Start: 01-01-2020 Screening for malign ant neoplasm of breast Mammogram Screening [facility] Start: 2019 Diabetes Screening Diabetes Screenin g [facility] Start: 2019 Lipid panel Lipid Screening [facility] Start: 2019 Screening for malign ant neoplasm of colon [facility] Start: 2014 Lipid panel Lipids [facility] Start: 2014 Screening for malign ant neoplasm of breast Mammogram Screening [facility] Start: 2004 Screening for malign ant neoplasm of cervix [facility] Start: 1995 Screening for malign ant neoplasm of cervix [facility] Start: 1993 DTaP/Tdap/Td vaccine (1 - Tdap) DTaP/Tdap/Td vaccine (1 - Tdap) [facility] Start: 1993 Hepatitis B Vaccine (1 of 3 - 19+ 3-dose series) Hepatitis B Vaccine (1 of 3 - 19+ 3-dose series) [facility] Start: 1992 Annual PCP Team [employer] ann Disease Visit Annual PCP Team Chronic Disease Visit [facility] Start: 1992 Hepatitis C screening [facility] Start: 1992 HIV screening HIV Screening [facility] Start: 1989 HIV screening HIV screen [facility] [employer] Start: 1986 Depression Screen Depression Screen [facility] Start: 1974 Screening for malign ant neoplasm of colon [facility] End: 06-17-2024 CT Abdomen WO contrast CT ABDOMEN WO IVCON Radiology Routine Epigastric abdominal pain 1 Occurrences starting 05/19/2023 until 06/17/2024 [facility] Work Phone: Comment on above: 1 Occurrences starti ng 05/19/2023 until 06/17/2024 End: 06-17-2024 CT Chest WO contrast CT CHEST WO IVCON Radiology Routine Epigastric abdominal pain 1 Occurrences starting 05/19/2023 until 06/17/2024 [facility] Work Phone: Comment on above: 1 Occurrences starti ng 05/19/2023 until 06/17/2024 End: 05-18-2024 EGD DIAGNOSTIC EGD DIAGNOSTIC Endoscopy Routine Epigastric abdominal pain 1 Occurrences starting 05/19/2023 until 05/18/2024 [facility] Work Phone: Comment on above: 1 Occurrences starti ng 05/19/2023 until 05/18/2024 Patient Education [facility] Work Phone: Patient referral [facility] Work Phone: SURGICAL PATHOLOGY [facility] Work Phone: Comment on above: Release Upon Karenain g for 1 Occurrences starting 07/02/2023, 1 [facility] Immunizations Immunization Date Immunization Notes Care Provider Fransisca [facility] 12-22-2023 Influenza, Madin Orlando by Canine Kidney, subunit, trivalent, injectable, contains preservative Roxana SANTIAGO Work Phone: [facility] 11-06-2023 measles, mumps and rubella virus vaccine Roxana SANTIAGO Work Phone: [facility] 10-06-2023 measles, mumps and rubella virus vaccine Roxana SANITAGO Work Phone: [facility] 01-23-2023 SARS-COV-2 (COVID-19 ) vaccine, mRNA, spike protein, LNP, PF, 50 mcg/0.5 mL Nico Pepper DO Work Phone: [facility] 01-06-2023 influenza virus vaccine, unspecified formulation Malina Castaneda [facility] 01-06-2023 influenza, injectabl e, quadrivalent, preservative free Nico Pepper DO Work Phone: [facility] 01-06-2023 influenza, seasonal, injectable Nico Pepper DO Work Phone: [facility] 11-15-2022 tetanus toxoid, redu bernard diphtheria toxoid, and acellular pertussis vaccine, adsorbed Malina Castaneda [facility] 03-28-2021 Moderna COVID-19 Vaccine 100 MCG/0.5ML Intramuscular Suspension Nico Pepper Work Phone: [facility] 12-28-2020 influenza virus vaccine, unspecified formulation Malina Castaneda [facility] 10-21-2021 influenza, injectabl e, quadrivalent, contains preservative Nico Samano Jamisonartiejose Work Phone: [facility] Work Phone: 12-08-2020 influenza virus vaccine, unspecified formulation Malina Castaneda [facility] 06-06-2020 Felicia COVID-19 Vaccine 0.5 ML Intramuscular Suspension Nico Samano Jamisonnuris Work Phone: [facility] Comment on above: Result Comment: 2023: [id number] 06-05-2020 Felicia SARS-CoV-2 Nico alvajose DO Work Phone: [facility] 01-07-2020 influenza virus vaccine, unspecified formulation Malina Castaneda [facility] 01-07-2020 influenza, injectabl e, quadrivalent, preservative free Nico Samano Jamisonartiejose Work Phone: [facility] r [address] [place] [address] Work Phone: 12-25-2018 influenza, injectabl e, madin usha canine kidney, preservative free Nico Pepper Work Phone: [facility]X-Axuddrxuuz-Vvzjr r [facility] Work Phone: Payers Date Payer Category Payer Self-pay [id number] 2023 Private Health Insurance [employer] [id number] 2022 Private Health Insurance [facility] [id number] 1.2.840.964612.1.13.239.2. 7.3.189591.315 2021 Unknown [id number] 2021 Unknown [id number] 1975 Unknown [id number] 2.16.840.1.203663.3.579.2. 174 1974 Unknown [id number] 2.16.840.1.533103.3.579.2. 593 1974 Unknown [id number] 2.16.840.1.744400.3.579.2. 593 1974 Unknown [id number] 2.16.840.1.464768.3.579.2. 593 1974 Unknown [id number] 2.16.840.1.446989.3.579.2. 593 1974 Unknown [id number] 2.16.840.1.570275.3.579.2. 593 1974 Unknown [id number] 2.16.840.1.546418.3.579.2. 593 1974 Unknown [id number] 2.16.840.1.629351.3.579.2. 593 1974 Unknown [id number] 2.16.840.1.963934.3.579.2. 593 1974 Unknown [id number] 2.16.840.1.938876.3.579.2. 593 1974 Unknown [id number] 2.16.840.1.194562.3.579.2. 593 1974 Unknown [id number] 2.16.840.1.441618.3.579.2. 593 1974 Unknown [id number] 2.16.840.1.809116.3.579.2. 593 1974 Unknown [id number] 2.16.840.1.901092.3.579.2. 593 1974 Unknown [id number] 2.16.840.1.061608.3.579.2. 356 1974 Unknown [id number] 2.16.840.1.064874.3.579.2. 1069 1974 Unknown [id number] 2.16.840.1.540730.3.579.2. 356 1974 Unknown [id number] 2.16.840.1.468920.3.579.2. 1068 1974 Unknown [id number] 2.16.840.1.205619.3.579.2. 1068 1974 Unknown [id number] 2.16.840.1.105644.3.579.2. 727 1974 Unknown [id number] 2.16.840.1.165038.3.579.2. 727 1974 Unknown [id number] 2.16.840.1.558061.3.579.2. 727 1974 Unknown [id number] 2.16.840.1.874156.3.579.2. 727 1974 Unknown [id number] 2.16.840.1.336600.3.579.2. 727 1974 Unknown [id number] 2.16.840.1.174837.3.579.2. 727 1974 Unknown [id number] 2.16.840.1.312071.3.579.2. 727 1974 Unknown [id number] 2.16.840.1.948497.3.579.2. 727 1974 Unknown [id number] 2.16.840.1.454369.3.579.2. 1259 1974 Unknown [id number] 2.16.840.1.309299.3.579.2. 1259 1974 Unknown [id number] 2.16.840.1.688560.3.579.2. 1259 1974 Unknown [id number] 2.16.840.1.444483.3.579.2. 1259 1959 Private Health Insurance [facility] [id number] 1959 Unknown [id number] 1959 Unknown [id number] 1959 Unknown Unknown [id number] Unknown [id number] 2.16.840.1.138290.3.579.2. 531 Unknown [id number] 2.16.840.1.421474.3.579.2. 531 Social History Date Type Detail Facility Assertion Tobacco smoking consumption unknown (finding) [facility] [address] Work Phone: Start: 04-11-2022 End: 10-18-2022 Tobacco smoking status MIIS Never smoked tobacco [facility] Phone: Start: 04-11-2022 End: 06-25-2023 Tobacco use and exposure Smokeless tobacco non-user [facility] Phone: Start: 04-11-2022 Alcohol intake Lifetime non-d kerri (finding) [facility] Phone: Start: 04-11-2022 History SDOH Alcohol Frequency 1 [facility] Phone: Start: 04-11-2022 History SDOH Alcohol Std Drinks 0 [facility] Phone: Start: 1975 Sex Assigned At Not on file B [facility] [employer] Phone: Start: 04-01-2022 End: 04-11-2022 Exposure to SARS-CoV-2 (event) Not sure [facility] Phone: Start: 02-18-2023 End: 12-22-2023 Non-smoker Non-smoker [facility] Work Phone: Start: 1975 Sex Assigned At Female F [facility] Tobacco smoking status Never [facility] Start: 02-18-2023 End: 12-22-2023 Sex Assigned At Female [facility] Start: 02-18-2023 End: 12-22-2023 Alcohol intake Ex-drinker (finding) [facility] Tobacco smoking stat [facility] Tobacco smoking consumption unknown [facility] Work Phone (unformatted): [phone] History of tobacco use Passive smoker [facility] Start: 04-06-2024 Sex Female (finding) [employer] [facility] Medical Equipment Procedure Code Equipment Code Equipment [...] Assessment Result Facility 04-07-2023 Functional Status N/A [facility] NEGATED: Highlighted row Functional performance Functional status health issues are not documented Disease [facility] [address] Work Phone: Mental Status Date Assessment Result Facility NEGATED: Highlighted row Cognitive function [Interpretation] Cognitive status health issues are not documented Disease [facility] [address] Work Phone: Clinical Notes 07-10-2021 to 04-20-2024 PAMELA Rodas - 12/22/2023 11:20 AM Nicanor Melton MD - 07/24/2023 2:29 PM Rachana Narvaez MD - 06/25/2023 2:52 PM Josephine Foley - 07/22/2023 2:08 PM [facility]adiology[facility]iology[facility]iology Note Date & Type Note Facility 04-20-2024 Note Orthopedic Surgery 01/07/2024 Small Finger Hardware Removal - Right and Ring Finger Trigger Release - Right Tasneem Camarillo comes in for a post-operative visit after having a right Small finger hardware removal done on 01/07/2024. she is a bit frustrated because she really has not gained much in the way of range of motion in the finger after removing the hardware. The trigger release is doing fine. Physical Exam: The incision site is healing well. There is no erythema, drainage or signs of infection. Tenderness is resolved over the dorsum of the finger . Sensation is present to light touch. Range of motion is significantly limited. She has a fusion of the PIP joint at about 45 degrees. She has full MP range of motion. She has a 45 degree extension lag at the DIP joint with passive motion going to near full extension.. Assessment: Tasneem Camarillo is a 49 y.o. year old female with Limited motion in her right small finger after having a PIP joint fusion Plan: right now I have told her that I think the best option is just to continue working on passive range of motion on the DIP joint to keep that joint free. Hopefully the extensor mechanism will start breaking free. She does have active pull-through of the flexor tendon to the DIP joint. She is working, and without restrictions at this point. We will see her back in 6 months to keep her claim active, and she can call if she has any troubles in the meantime. [facility] 01-14-2024 Note Orthopedic Surgery 01/07/2024 Small Finger [...] her back in the clinic 3 months. [facility] 01-07-2024 Note Patient: Tasneem lyon Procedure Summary Date: 01/07/24 Room / Location: [facility] [address] [place] [address] [facility] OR Anesthesia Start: 1022 Anesthesia Stop: 111 Procedures: Small Finger Hardware Removal (Right: Little [...] per anesthesia protocol. No notable events documented. [facility] 01-07-2024 Note Patient: Tasneem lyon Procedure Information Anesthesia Start Date/Time: 01/07/24 102 Procedures: Small Finger Hardware Removal (Right: Little Finger) Ring Finger Trigger Release (Right: Ring Finger) - C-Arm, MEDARTIS PLATE AND SCREWS IN Location: [facility] [address] [place] [address] OR Surgeons: Vdaim Chowdhury MD Relevant Problems Anesthesia (-) History [...] with CAA and resident. Additional Equipment Requests [facility] 01-07-2024 Note Patient: Tasneem lyon Procedure Summary Date: 01/07/24 Room / Location: [facility] [address] [place] [address] [facility] OR Anesthesia Start: 1023 Anesthesia Stop: Procedures: Small Finger Hardware Removal (Right: Little Finger) Ring Finger Trigger Release (Right: Ring Finger) Diagnosis: Painful orthopaedic hardware (CMS/HCC) (Painful orthopaedic hardware (CMS/HCC) [T84.84XA]) Surgeons: Vadim Chowdhury MD Responsible Provider: Franklin Nugent MD Anesthesia Type: regional ASA Status: Not recorded Anesthesia Post Transport Note Transport to: [facility] PACU O2 Route: nasal cannula Oxygen Flow (L/min): 3 Patient Monitor: direct observation Transport: uneventful Patient condition is: stable [facility] 01-07-2024 Note Peripheral Block Patient location during procedure: pre-op Start time: 01/07/2024 10:08 AM End time: 01/07/2024 10:23 AM Reason for block: primary anesthetic Staffing Performed: resident/MELTER CLERK/CAA Anesthesiologist: Nathaniel Bhatia MD Resident/MELTER CLERK: José Vee MD Preanesthetic Checklist Completed: patient [...] rate change: no Slow fractionated injection: yes [facility] 12-22-2023 History of Presen t illness [...] - 9 Protein, UA Negative Negative - 2000(20) ++++ mg/dL Urobilinogen, UA 0.2 0.2 - 12 mg/dL Leukocytes, UA Negative Negative - 500+++ Lashonda/mcL Nitrite, UA Negative Negative - Positive documented in this encounter [facility] 11-05-2023 Note Orthopedic Surgery Subjective Chief complaint: Chief Complaint Patient presents with Right Hand - Pain Tasneem Camarillo is a 48 y.o. year [...] surgery scheduling after approval Mohit Trammell, MS4 [facility] I was physically present with the [...] they are approved. Consent was obtained today [facility] 10-31-2023 Note rig [facility] 08-06-2023 Note Orthopedic Surgery Subjective Chief complaint: [...] removal of the hardware at that time. [facility] 07-24-2023 Note HNO ID: [id number] Author: NICANOR FERRIS MD Service: ? Author Type: Physician Type: Progress Notes Filed: 07/24/2023 14:31 Note Text: I have read and reviewed the documentation and agree. I wish to add the followingI wish to add the following findings which will be communicated back to the requesting physician. Nicanor Ferris MD [facility] STAFF PHYSICIAN NOTE OF PERSONAL INVOLVEMENT IN [...] MD DATE OF SERVICE: 06/25/23 530 PM [facility] 07-24-2023 History of Presen t illness Narrative I have read and reviewed the documentation and agree. I wish to add the followingI wish to add the following findings which will be communicated back to the requesting physician. Nicanor Ferris MD [facility] STAFF PHYSICIAN NOTE OF PERSONAL INVOLVEMENT IN [...] THORACIC SURGERY OUTPATIENT CONSULT NOTE Tasneem Camarillo [id number] Requesting Provider: Self Thoracic Physician: Nicanor Ferris [...] DATE OF EXAM: Jun 25 2023 12:26PM [facility] 0541 - CT CHEST WO IVCON / [...] Recommendation: Consult to Lung Nodule Clinic - [id number] Time Frame: at the discretion of the clinical team. Comments: Follow-up for this incidentally detected lung nodule with PET/CT or Biopsy within 4 weeks, or Chest CT exam in 3 months is recommended. --END OF FINDING-- Extractions Technician: TARYN Transcribe Date/Time: Jun 25 2023 12:38P Dictated by : TALYA MCCORMACK MD This examination was interpreted and the report reviewed and electronically signed by: TALYA MCCORMACK MD on Jun 25 2023 12:44PM EST I have personally reviewed the following images/data: CT scan, upper GI Outside Paper Medical Records Review personally performed by: documented in this encounter [facility] 07-22-2023 Note HNO ID: [id number] Author: ?, ?, ? Service: ? Author Type: ? Type: Progress Notes Filed: 07/22/2023 14:09 Note Text: Incidental Lung Nodule Enrollment Outreach attempt: 3rd Attempt Outreach status: Complete Enrolled in Lung Nodule program: No Declined reason: Other Lung Nodule Program Location: [facility] 07-22-2023 History of Presen t illness Narrative Incidental Lung Nodule Enrollment Outreach attempt: 3rd Attempt Outreach status: Complete Enrolled in Lung Nodule program: No Declined reason: Other Lung Nodule Program Location: [place] documented in this encounter [facility] 07-22-2023 Note Patient Outreach (PU LMMN) TASNEEM CAMARILLO ([id number]) 1975 F Date Time Provider Department 07/22/23 JOSEPHINE CULVER During your visit today, we recorded the following information about you: Josephine Culver 07/22/2023 2:09 PM Signed Incidental Lung Nodule Enrollment Outreach attempt: 3rd Attempt Outreach status: Complete Enrolled in Lung Nodule program: No Declined reason: Other Lung Nodule Program Location: [place] Allergies As of Date: 07/22/2023 Noted Allergy [...] Encounter Status:Closed by JOSEPHINE CULVER on 07/22/23 [facility] 07-10-2023 Note Patient Outreach (SAVANNAH LMMN) TASNEEM CAMARILLO ([id number]) 1975 F Date Time Provider Department 07/10/23 JOSEPHINE CULVER During your visit today, we recorded the following information about you: CulverJosephine 07/10/2023 9:04 AM Signed Incidental Lung Nodule Enrollment Outreach attempt: 2nd Attempt Outreach status: Complete Enrolled in Lung Nodule program: Referred Lung Nodule outreach: Needs outreach Lung Nodule Program Location: [place] Two letter attempts Allergies As of Date: [...] Encounter Status:Closed by JOSEPHINE CULVER on 07/10/23 [facility] 07-10-2023 Note HNO ID: [id number] Author: ?, ?, ? Service: ? Author Type: ? Type: Progress Notes Filed: 07/10/2023 09:04 Note Text: Incidental Lung Nodule Enrollment Outreach attempt: 2nd Attempt Outreach status: Complete Enrolled in Lung Nodule program: Referred Lung Nodule outreach: Needs outreach Lung Nodule Program Location: [place] Two letter attempts [facility] 07-10-2023 History of Presen t illness Narrative Incidental Lung Nodule Enrollment Outreach attempt: 2nd Attempt Outreach status: Complete Enrolled in Lung Nodule program: Referred Lung Nodule outreach: Needs outreach Lung Nodule Program Location: [place] Two letter attempts documented in this encounter [facility] 07-02-2023 Note HNO ID: [id number] Author: MALIA MEADOWS PA-C Service: ? Author Type: Physician Shipyard Painting Supervisor Type: Progress Notes Filed: 07/02/2023 15:44 Note Text: Incidental Lung Nodule Enrollment Outreach attempt: 1st Attempt Outreach status: Left message Enrolled in Lung Nodule program: Referred Lung Nodule outreach: Needs outreach Lung Nodule Program Location: [place] Left Message to call back to schedule. Big nodule letter sent. Malia Meadows PA-C [facility] 07-02-2023 History of Presen t illness Narrative Incidental Lung Nodule Enrollment Outreach attempt: 1st Attempt Outreach status: Left message Enrolled in Lung Nodule program: Referred Lung Nodule outreach: Needs outreach Lung Nodule Program Location: [place] Left Message to call back to schedule. Big nodule letter sent. Malia Meadows PA-C documented in this encounter [facility] 07-02-2023 Note HNO ID: [id number] Author: AIDEE VILLAVICENCIO APRN.VICE PRESIDENT OF MANUFACTURING Service: ? Author Type: Nurse Practitioner Type: Progress Notes Filed: 07/02/2023 12:46 Note Text: [facility] - OUTPATIENT THORACIC SURGERY CLINIC NOTE PT NAME: Tasneem Camarillo [facility] NO: [id number] THORACIC SURGEON: Nicanor Ferris M.D. DATE OF [...] Local GI for symptom management Aidee Villavicencio APRN.[facility] 07-02-2023 Note Patient Outreach (PM NA11) TASNEEM CAMARILLO ([id number]) 1975 F Date Time Provider Department 07/02/23 MALIA MEADOWS PMNA11 During your visit today, we recorded the following information about you: Malia Meadows PA-C 07/02/2023 3:44 PM Signed Incidental Lung Nodule Enrollment Outreach attempt: 1st Attempt Outreach status: Left message Enrolled in Lung Nodule program: Referred Lung Nodule outreach: Needs outreach Lung Nodule Program Location: [place] Left Message to call back to schedule. [...] Encounter Status:Closed by MALIA MEADOWS on 07/02/23 [facility] 07-02-2023 History of Presen t illness Narrative [facility] - OUTPATIENT THORACIC SURGERY CLINIC NOTE PT NAME: Tasneem Camarillo [facility] NO: [id number] THORACIC SURGEON: Nicanor Ferris M.D. DATE OF [...] Local GI for symptom management Aidee Villavicencio APRN.VICE PRESIDENT OF MANUFACTURING documented in this encounter [facility] 07-02-2023 Note Q3 Patient Name: Tasneem Camarillo Procedure Date: 07/02/2023 8:43 AM Date of : 1975 Admit Type: Outpatient Age: 48 Gender: Female Note Status: Finalized Attending MD: Nicanor Ferris MD, [id number] Procedure: Upper GI endoscopy Indications: Dysphagia Providers: [...] the patient. Procedure Code(s): --- Professional --- 83586, Esophagogastroduodenoscopy, flexible, transoral; with biopsy, single or multiple Diagnosis Code(s): --- Professional --- Q39.9, Congenital malformation of esophagus, unspecified K22.4, Dyskinesia of esophagus K29.70, Gastritis, unspecified, without bleeding R13.10, Dysphagia, unspecified CPT copyright 2020 [employer]. All rights reserved. Attending Participation: I personally performed the entire procedure without the assistance of a fellow, resident or surgical processor. Scope In: 8:57:06 AM Scope Out: 9:06:50 AM MD Nicanor Purdy MD 07/02/2023 9:13:36 AM This report has been signed electronically by Nicanor Ferris MD Number of Addenda: 0 Note Initiated On: 07/02/2023 8:43 AM [facility] 07-02-2023 Nurse Note AMBULATORY PATIENT EDUCATION [...] MATERIAL: Procedure Discharge Instructions REFERRAL (RECOMMENDATION): None [facility] 04-24-2024 Nurse Note AMBULATORY PATIENT EDUCATION NOTE TOPIC: [...] Taty Sheridan RN BSN In Department: GASTROENTEROLOGY 0812: Dr. Madeline Jarrell paged: Patient Tasneem Camarillo in pre bed 16: Patient states she is US only IV access. Are you able to help me obtain IV access? Thanks! Casandra 0825: Dr. Jarrell paged: Patient Tasneem Camarillo in pre bed 16: Patient ready for US IV access, thanks! Casandra Sheridan RN BSN documented in this encounter [facility] 07-02-2023 Note Q3 Patient Name: Tasneem Camarillo Procedure Date: 07/02/2023 8:43 AM Date of : 1975 Admit Type: Outpatient Age: 48 Gender: Female Note Status: Finalized Attending MD: Nicanor Ferris MD, [id number] Procedure: Upper GI endoscopy Indications: Dysphagia Providers: [...] Taty Sheridan RN BSN In Department: GASTROENTEROLOGY [facility] 07-02-2023 Nurse Note 0812: Dr. Madeline Jarrell paged: Patient Tasneem Camarillo in pre bed 16: Patient states she is US only IV access. Are you able to help me obtain IV access? Thanks! Casandra 0825: Dr. Jarrell paged: Patient Tasneem Camarillo in pre bed 16: Patient ready for US IV access, thanks! Casandra Sheridan RN BSN [facility] 06-25-2023 Note HNO ID: [id number] Author: RACHANA PHAM MD Service: ? Author Type: Resident Type: Progress Notes Filed: 07/24/2023 14:31 Note Text: [facility] THORACIC SURGERY OUTPATIENT CONSULT NOTE Tasneem Camarillo [id number] Requesting Provider: Self Thoracic Physician: Nicanor Ferris [...] DATE OF EXAM: Jun 25 2023 12:26PM [facility] 0541 - CT CHEST WO IVCON / [...] imaging if a (more content not included)... [facility] 06-25-2023 Note HNO ID: [id number] Author: KYMBERLY PALMA RT(Selwyn) Service: Radiology Author Type: Technologist Type: Progress [...] PATIENT PRESENTS WITH AN IMPLANTABLE OR ATTACHED PUNCH CARD OPERATOR: No RADIOLOGY DEPARTMENT: CT; Exam(s) Completed: Chest PERIPHERAL IV DATA: Not applicable SIGNED BY: RT Trinh(R) June 25, 2023 12:22 PM [facility] 06-25-2023 History of Presen t illness [...] PATIENT PRESENTS WITH AN IMPLANTABLE OR ATTACHED PUNCH CARD OPERATOR: No RADIOLOGY DEPARTMENT: CT; Exam(s) Completed: Chest PERIPHERAL IV DATA: Not applicable SIGNED BY: RT Trinh(R) June 25, 2023 12:22 PM documented in this encounter [facility] 05-22-2023 Miscellaneous Notes received outside 2013 operative note from [facility] (scanned).routing to NPM for review. Liz Hines Received a call back from [facility] in [place] on records requested (operative reports from 2013= Yefri fundoplication). Edith from the [facility] de[facility] was unable to fax the records because the pt last name didn't match. I called our patient and left a VM requesting a call back with that information to proceed with getting the records needed for the surgeon. Liz [place] Environmental Safety Specialist documented in this encounter [facility] 05-19-2023 Miscellaneous Notes Images from the original note were not included. Thoracic Surgery Consultation - review of records for appointment scheduling Patient is being referred to Nicanor Ferris MD, PhD by for Epigastric Pain, Outside hospital records scanned Procedures: Yefri Fundoplication [place] 2013 [facility] ) - ask Blood Bank Supervisor to obtain Imaging CT (chest/abd requested) mri leena 04/28/2023 UGI: 04/23/2023 esophagram Cardiopulmonary Testing PFT's/Six: Cardiac: Office Notes/Consults 05/13/23 [facility] History of: No family history on file. No past medical history on file. No past surgical history on file. Request consult with dr barrington ordoñez ct chest /abd Elana Coffman, JAGD[place] LOCAL PATIENT Received Fax from Ildefonso Simmons/ [...] office for scheduling. Please call pt at [phone]. Patient was informed consultation could be at [facility] or [facility]: No Patient Registration: Registration complete/updated: no Insurance card(s) scanned in [facility] with in the past year: No Pt's [employer] is inactive. Ok to communicate to pt via [employer] not asked Medical Records: Records in [facility] (internal [facility] records): No Imaging in [facility] (internal [facility] records): No Care Everywhere [...] Simmons. Imaging will be received via In [facility] already Received: yes Imaging uploaded: Yes Waiting on additional: No. Missing (list): N/A Additional providers added to Care Teams: Yes Additional Notes/Comments: Enct routed to: Yes, Thoracic Scheduling office for registration and Yes, Thoracic NPM for triage Liz Hines documented in this encounter [facility] 05-07-2023 Note Orthopedic Surgery Subjective 11/25/2022 - Right Small Finger Pip Joint Fusion - Right 05/07/23 Tasneem Camarillo is a 48 y.o. female s/p 11/25/2022 [...] MD Orthopaedic Surgery, PGY-3 05/07/23 1:55 PM [facility] 04-07-2023 Hospital Discharg e instructions Patient [...] including vitamins, herbs, eye drops, creams, and ltxu-xck-zkgvasg medicines. Any problems you or family members [...] provider tells you to take them. Taking qonf-hst-kkjatqs medicines, vitamins, herbs, and supplements. General instructions [...] provider. Document Revised: 02/18/2022 Document Reviewed: 10/17/2021 [employer] Patient Education 2022 [employer]. Follow Up Care 03/31/2023 10:10:29 With:Malina Castaneda CNP Address: When:1 to 2 weeks Comments:Following EGD. [facility] 04-07-2023 Note Radiology Colonoscopy, [...] including vitamins, herbs, eye drops, creams, and qobw-ykr-jybvmwr medicines. ? Any problems you or family [...] tells you to take them. ? Taking jhqr-neo-dumdhxi medicines, vitamins, herbs, and supplements. General instructions [...] for cancer cells. (more content not included)... [facility] 10-31-2021 Note PROCEDURE: XR FINGER MIN 2 [...] by: JUAN M SARGENT Date: 2021-10-31 15:15 [facility] 10-31-2021 Note PROCEDURE: XR FINGER MIN [...] by: JUAN M SARGENT Date: 2021-10-31 13:08 [facility] 10-18-2021 Note CONSULTATION CONSULTATION DATE: 10/18/2021 [...] agrees with the plan of care. [facility] 09-06-2021 Note CONSULTATION CONSULTATION DATE: 09/06/2021 [...] followed up in the clinic post procedure. [facility] Signed and Approved by: CHRISTIAN WINN . 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 The patient currently takes Oxaprozin 600 mg [...] magnesium glycinate q.p.m. CC: Juancarlos Pepper D.O. [facility] Signed and Approved by: DR SCAR LAZARO . 07/17/2021 10:05:00 [facility] Evaluation + Plan note Future Appointments Appointment Date:04/15/2023 08:00:00 AM Scheduled Provider: [facility] Appointment Type:US Abdominal/Pelvis (FT) Appointment Date:04/16/2023 08:30:00 AM Scheduled Provider: Location:[facility] Appointment Type:Surgery FT Appointment Date:04/23/2023 09:30:00 AM Scheduled Provider: Location:.XRAY Appointment Type:XR MBS Adult (FT) Appointment Date:04/23/2023 10:00:00 AM Scheduled Provider: [facility] Type:XR Esophagus/Upper GI/Small Bowel (FT) Future Scheduled TestsUS Liver 04/15/23XR Esophagus 04/23/23XR Adult Swallowing Function w/ Video: Evaluate Pt, Develop a Plan of Care & Implement Plan 04/23/23 [facility] Evaluation + Plan note Future Appointments Appointment Date:04/23/2023 09:30:00 AM Scheduled Provider: Location:.XRAY Appointment Type:XR MBS Adult (FT) Appointment Date:04/23/2023 10:00:00 AM Scheduled Provider: Location:.XRAY Appointment Type:XR Esophagus/Upper GI/Small Bowel (FT) Future Scheduled TestsMRI Cholangiogram Pancreatography (mrcp) 04/16/23XR Esophagus 04/23/23XR Adult Swallowing Function w/ Video: Evaluate Pt, Develop a Plan of Care & Implement Plan 04/23/[address] [facility] Evaluation + Plan note Future Appointments Appointment Date:04/28/2023 05:00:00 PM Scheduled Provider: Location:.MRI Appointment Type:MRI Unlisted Procedures (FT) Future Scheduled TestsMRI Cholangiogram Pancreatography (mrcp) 04/28/[address] [facility] Evaluation note Diagnosis Constipation, unspecified constipation type- Primary Kidney stone Calculus of kidney documented in this encounter [facility] Work Phone: evaluation noteNo assessment information available [facility] Work Phone: Evaluation note* Diagnosis Complex regional pain syndrome type 1, affecting unspecified site Disorder of intervertebral disc of lumbar spine Chronic pain syndrome Neuropathy Mononeuritis of unspecified site documented in this encounter [facility]* Diagnosis Epigastric abdominal pain- Primary Abdominal pain, epigastric [facility] Diagnosis Epigastric abdominal pain Abdominal pain, epigastric [facility] Diagnosis Epigastric abdominal pain- Primary Abdominal pain, epigastric documented [facility] Diagnosis Epigastric abdominal pain Abdominal pain, epigastric S/P Yefri fundoplication (without gastrostomy tube) procedure Follow-up examination, following unspecified surgery Hypertension, unspecified type [facility] Diagnosis Epigastric abdominal pain- Primary Abdominal pain, epigastric S/P Yefri fundoplication (without gastrostomy tube) procedure Follow-up examination, following unspecified surgery [facility]* Diagnosis Bacterial conjunctivitis of both eyes- Primary URI, acute Acute upper respiratory infections of unspecified site Need for vaccination Need for prophylactic vaccination and inoculation against unspecified single disease Nephrolithiasis Calculus of kidney documented in this encounter [facility]* Diagnosis Complex regional pain syndrome type 1, affecting unspecified site Disorder of intervertebral disc of lumbar spine Chronic pain syndrome Neuropathy Mononeuritis of unspecified site documented in this encounter [facility]* Diagnosis Other chronic pain documented [facility]* Diagnosis Nonintractable headache, unspecified chronicity pattern, unspecified headache type documented in this encounter [facility]* Diagnosis Complex regional pain syndrome type 1, affecting unspecified site Disorder of intervertebral disc of lumbar spine Chronic pain syndrome Neuropathy Mononeuritis of unspecified site documented in this encounter [facility]* Diagnosis Complex regional pain syndrome [...] in this encounter [facility]* Diagnosis Bipolar affective disorder, remission status unspecified (CMS/HCC) Anxiety and depression (CMS/[facility]) documented in this encounter [facility] HealthcareHistory of [...] She was seen by a hand surgeon [facility] and ultimately underwent a surgical release. [...] somehow the digit was both fractured and dislocated.[facility] Work Phone: History of Present illness NarrativeThe patient presents today for ongoing evaluation of the right small finger flexion contracture. The patient had an injury in the workplace. She developed PIP flexion contracture. She had surgery in [place]. The operative note indicates that the volar plate was released and full extension was achieved. The digit was pinned across the PIP joint for a period of time. It does not sound as though therapy was started until about four weeks postoperative. She experienced return of the flexion contracture. She presents today for ongoing evaluation.[facility] Work Phone: History of Present illness [...] to improve functional use of hand. [facility] Work Phone: Hospital course Narrative No data available for this section [facility] Hospital Discharge instructions* Attachments The following attachments cannot be sent through Care Everywhere. * Kidney Stone (Kazakh) * Constipation (Kazakh) [facility] Work [facility]: Hospital Discharge instructions Additional Instructions Follow-up with your primary care doctor Return to the ED if develop worsening [facility] Work Phone: Hospital Discharge instructions Additional Instructions Follow-up gastroenterology as soon as possible call Friday We will increase your Protonix to 2 times a day and continue Carafate Return if symptoms are worseMem[facility] Hospital Work Phone: Hospital Discharge instructions No data available for this section [facility] No data available for this section [facility] Reason for referral (narrative)* Outpatient Procedure (Routine) - Pending Review Specialty Diagnoses / Procedures Referred By Jc flaherty Referred To Contact [facility] Diagnoses Epigastric abdominal pain Procedures EGD DIAGNOSTIC ESOPHAGOGASTRODUODENOSC OPY TRANSORAL DIAGNOSTIC Nicanor Ferris MD [address] [place] [address] [facility] [place] [address] [place] [address] Referral ID Status Reason Start Date Expiration Date Visits Requested Visits Authorized [id number] Pending Review Auto-Generat ed Referral 05/19/2023 05/18/2024 1 1 * MRI/CT (Routine) - Pending Review Specialty Diagnoses / Procedures Referred By Contac t Referred To Contact CT IMAGING Diagnoses Epigastric abdominal pain Procedures CT ABDOMEN WO IVCON CT ABDOMEN W/O CONTRAST Nicanor Ferris MD [address] [place] [address] [address] [facility] [place] [address] Referral ID Status Reason Start Date Expiration Date Visits Requested Visits Authorized [id number] Pending Review Auto-Generat ed Referral 05/19/2023 06/17/2024 1 1 * MRI/CT (Routine) - Pending Review Specialty Diagnoses / Procedures Referred By Jc t Referred To Contact CT IMAGING Diagnoses Epigastric abdominal pain Procedures CT CHEST WO IVCON DIAGNOSTIC COMPUTED TOMOGRAPHY THORAX W/O CNTRST Nicanor Ferris MD [address] [place] [address] [address] [facility] [place] [address] Referral ID Status Reason Start Date Expiration Date Visits Requested Visits Authorized [id number] Pending Review Auto-Generat ed Referral 05/19/2023 06/17/2024 1 1 [facility] for referral (narrative)* Outpatient Procedure (Routine) - Closed Specialty Diagnoses / Procedures Referred By Jc t Referred To Contact [facility] Diagnoses Epigastric abdominal pain Procedures EGD DIAGNOSTIC ESOPHAGOGASTRODUODENOSC OPY TRANSORAL DIAGNOSTIC Nicanor Ferris MD [address] [place] [address] [facility] [place] [address] [place] [id number] Referral ID Status Reason Start Date Expiration Date V isits Requested Visits Authorized [id number] Closed Auto-Generate d Referral 05/19/2023 05/18/2024 1 1 [facility] for visit Narrative* Initial Evaluation, Evaluation and Treatment. * Reason for Referral: ROM small finger PIP. * Referred by Meli Bravo PA-C. [facility] Work Phone: Reason for visit Narrative* Outpatient Procedure (Routine) - Closed Specialty Diagnoses / Procedures Referred By Jc flaherty Referred To Contact [facility] Diagnoses Epigastric abdominal pain Procedures EGD DIAGNOSTIC ESOPHAGOGASTRODUODENOSC OPY TRANSORAL DIAGNOSTIC Nicanor Ferris MD [address] [place] [address] [facility] [place] [address] [place] [phone] Referral ID Status Reason Start Date Expiration Date V isits Requested Visits Authorized [id number] Closed Auto-Generate d Referral 05/19/2023 05/18/2024 1 1 [facility] Family History Mother Name Dates Details Family history of [...] mellitus Unknown Malignant neoplasm of colon Unknown Relationship Condition Age at Onset Recorded Date/T wilma mother Diabetes mellitus Unknown Malignant neoplasm of colon Unknown father Unknown Summary Purpose Advance Directives Advance Directive Response Recorded Date/ Time Advance [...] Complaint chest pain,upper abd pain stomach pain Chief Complaint Admit Date sinus pressure, ear pain April 06, 025 1:05pm Reason for Referral Specialty Diagnoses / Procedures Referred By Contac t Referred To Contact CT IMAGING Diagnoses Epigastric abdominal pain Procedures CT CHEST WO IVCON DIAGNOSTIC COMPUTED TOMOGRAPHY THORAX W/O CNTRST Nicanor Ferris MD [address] [place] [address] [place] [address] Referral ID Status Reason Start Date Expiration Date V isits Requested Visits Authorized [id number] Closed Auto-Generate d Referral 05/19/2023 06/17/2024 1 1 Additional Source Comments INFORMATION SOURCE (unrecogn ized section and content) DATE CREATED AUTHOR 11/14/2021 [facility] DATE CREATED AUTHOR AUTHOR'S ORGANIZ ATION 01/03/2022 [facility] DATE CREATED AUTHOR AUTHOR'S ORGANIZ ATION 04/12/2022 [facility] DATE CREATED AUTHOR AUTHOR'S ORGANIZ ATION 06/14/2022 [facility] DATE CREATED AUTHOR AUTHOR'S ORGANIZ ATION 07/11/2022 [facility] DATE CREATED AUTHOR AUTHOR'S ORGANIZ ATION 09/24/2022 [facility] DATE CREATED AUTHOR AUTHOR'S ORGANIZ ATION 09/26/2022 [facility] DATE CREATED AUTHOR AUTHOR'S ORGANIZ ATION 10/28/2022 [facility] DATE CREATED AUTHOR AUTHOR'S ORGANIZ ATION 10/31/2022 [facility] DATE CREATED AUTHOR AUTHOR'S ORGANIZ ATION 04/18/2023 [facility] DATE CREATED AUTHOR AUTHOR'S ORGANIZ ATION 07/24/2023 [facility] DATE CREATED AUTHOR AUTHOR'S ORGANIZ ATION 08/12/2023 [facility] DATE CREATED AUTHOR AUTHOR'S ORGANIZ ATION 12/24/2023 [facility] EPIC DATE CREATED AUTHOR AUTHOR'S ORGANIZ ATION 04/22/2024 [facility] Reason for Visit (unrecogniz ed section and [...] TOMOGRAPHY THORAX W/O CNTRST Nicanor Ferris MD [address] [place] [address] [place] [address] Referral ID Status Reason Start Date Expiration Date V isits Requested Visits Authorized [id number] Closed Auto-Generate d Referral 05/19/2023 06/17/2024 1 [...] Reason Onset Date Comments Med Refill 01/25/2024 Reason Onset Date Comments Med Refill 11/18/2023 Reason Onset Date Comments Med Refill 02/26/2024 Reason Onset Date Comments Med Refill 02/26/2024 Reason Onset Date Comments Med Refill 04/01/2024 Reason Onset Date Comments Med Refill 05/03/2024 Reason Onset Date Comments Med Refill 05/05/2024 Ordered Prescriptions (unrec ognized section and content) [...] 1 dose, On Aisha 04/11/22 at 1615 1613 (Given - Provid er: [...] IV (COMPLETED) Routine, CONTINUOUS, Starting on Aisha 04/11/22 at 1445, Until Specified And sodium chloride flush 0.9 % injection 3 mLJump to med 3 mL, IntraVENous, EVERY 8 HOURS, First dose on Aisha 04/11/22 at 1445, Until Discontinued
Flush line with 3-5 mL
Care Teams (unrecognized sec tion and content) Civil Cadd Technician Relationship Specialty Start Date End Date Eloisa Pepper MD [address] [facility] [address] [place] [address] PCP - General 04/11/22 Team Status: Active Member Role Status Dates Juancarlos Pepper DO Primary Care Provider Active Team Status: Inactive Member Role Status Dates Juancarlos Pepper DO Primary Care Provider Active Tad Barger , Emergency Provider Active Team Status: Inactive Member Role Status Dates Juancarlos Pepper DO Primary Care Provider Active Start: March 24, 2023 End: March 24, 2023 Tad Barger DO Emergency Provider Active Sta rt: March 24, 2023 End: March 24, 2023 Team Status: Inactive Member Role Status Dates Juancarlos Pepper DO Primary Care Provider Active Start: March 30, 2023 End: March 30, 2023 Zaheer Sanon Jr, MD Emergency Provider Active Start: March 30, 2023 End: March 30, 2023 Civil Cadd Technician Relationship Specialty Start Date End Date Nico Pepper DO [address] [address] PCP - General Family Medicine 08/15/22 Civil Cadd Technician Relationship Specialty Start Date End Date Nico Pepper Jr., [facility] [address] [address] PCP - General Family Medicine 05/19/23 Malina Castaneda, ANGELIA [facility] [place] [address] Referring Family Medicine 05/19/23 Civil Cadd Technician Relationship Specialty Start Date End Date Nico Pepper Jr., [address] [place] [phone] PCP - General Family Medicine 05/19/23 Malina Castaneda CNP [address] [place] [address] Referring Family Medicine 05/19/23 Civil Cadd Technician Relationship Specialty Start Date End Date Nico Pepper Jr., DO [address] [place] [address] PCP - General Family Medicine 05/19/23 Malina Castaneda CNP [address] [place] [address] Referring Family Medicine 05/19/23 Civil Cadd Technician Relationship Specialty Start Date End Date Nico Pepper Jr., DO [address] [place] [address] PCP - General Family Medicine 05/19/23 Malina Castaneda CNP [address] [place] [address] Referring Family Medicine 05/19/23 Civil Cadd Technician Relationship Specialty Start Date End Date Nico Pepper Jr., DO [address] [place] [address] PCP - General Family Medicine 05/19/23 Malina Castaneda CNP [address] [place] [address] Referring Family Medicine 05/19/23 Civil Cadd Technician Relationship Specialty Start Date End Date Nico Pepper Jr., DO [address] [place] [phone] PCP - General Family Medicine 05/19/23 Malina Castaneda, ANGELIA [address] [place] [address] Referring Family Medicine 05/19/23 Civil Cadd Technician Relationship Specialty Start Date End Date Nico Pepper Jr., DO [address] [place] [address] PCP - General Family Medicine 05/19/23 Malina Castaneda, ANGELIA [address] [place] [address] Referring Family Medicine 05/19/23 Civil Cadd Technician Relationship Specialty Start Date End Date Nico Pepper Jr., DO [address] [place] [phone] PCP - General Family Medicine 05/19/23 Malina Castaneda, VICE PRESIDENT OF MANUFACTURING [address] [place] [address] Referring Family Medicine 05/19/23 Civil Cadd Technician Relationship Specialty Start Date End Date Nico Pepper, DO [address] [place] [address] PCP - General Family Medicine 08/15/22 Civil Cadd Technician Relationship Specialty Start Date End Date Nico Pepper DO [address] [place] [address] PCP - General Family Medicine 08/15/22 Civil Cadd Technician Relationship Specialty Start Date End Date Nico Pepper, DO [address] [place] [address] PCP - General Family Medicine 08/15/22 Nico Pepper DO [address] [place] [address] PCP - Medical [employer] 02/07/23 03/09/99 Civil Cadd Technician Relationship Specialty Start Date End Date Nico Pepper DO [address] [place] [address] PCP - General Family Medicine 08/15/22 Nico Pepper DO [address] [place] [address] PCP - Medical [employer] 02/07/23 03/09/99 Civil Cadd Technician Relationship Specialty Start Date End Date Nico Pepper DO [address] [place] [address] PCP - General Family Medicine 08/15/22 Civil Cadd Technician Relationship Specialty Start Date End Date Nico Pepper DO [address] [place] [address] PCP - General Family Medicine 08/15/22 Civil Cadd Technician Relationship Specialty Start Date End Date Nico Pepper DO [address] [place] [address] PCP - General Family Medicine 08/15/22 Civil Cadd Technician Relationship Specialty Start Date End Date Nico Pepper DO [address] [place] [address] PCP - General Family Medicine 08/15/22 Roxana Vicente, PA [address] [place] [address] PCP - Medical [employer] 02/07/23 03/09/99 Civil Cadd Technician Relationship Specialty Start Date End Date Nico Pepper DO [address] [place] [address] PCP - General Family Medicine 08/15/22 Roxana Vicente, PA [address] [place] [address] PCP - Medical [employer] 02/07/23 03/09/99 Civil Cadd Technician Relationship Specialty Start Date End Date Nico Pepper DO [address] [place] [address] PCP - General Family Medicine 08/15/22 Roxana Vicente, PA [address] [place] [address] PCP - Medical [employer] 02/07/23 03/09/99 Team Status: Inactive Member Role Status Georges Pepper DO Primary Care Provider Active Start: April 06, 2024 End: April 06, 2024 Ness Vitale APRN Attending Provider Active Start: April 06, 2024 End: April 06, 2024 Civil Cadd Technician Relationship Specialty Start Date End Date Nico Pepper DO [address] [place] [address] PCP - General Family Medicine 08/15/22 Roxana Vicente, PA [address] [place] [address] PCP - Medical [employer] 02/07/23 03/09/99 Goals (unrecognized section and content) Goals may be documented in a n alternate sectionGoals may be documented in an alternate section No data available for this section No data available for this section No data available for this section No data available for this sectionGoals may be documented in an alternate section Source Comments (unrecognize d section and content) In the event this informatio n is protected by the Federal Confidentiality of Alcohol and Drug Abuse Patient Records regulations: The Federal rules restrict any use of the information to criminally investigate or prosecute any alcohol or drug abuse patient.[facility] the event this information is protected by the Federal Confidentiality of Alcohol and Drug Abuse Patient Records regulations: The Federal rules restrict any use of the information to criminally investigate or prosecute any alcohol or drug abuse patient.[facility] Hospital[facility] the event this information is protected by the Federal Confidentiality of Alcohol and Drug Abuse Patient Records regulations: The Federal rules restrict any use of the information to criminally investigate or prosecute any alcohol or drug abuse patient.[facility] the event this information is protected by the Federal Confidentiality of Alcohol and Drug Abuse Patient Records regulations: The Federal rules restrict any use of the information to criminally investigate or prosecute any alcohol or drug abuse patient.[facility] Hospital[facility] the event this information is protected by the Federal Confidentiality of Alcohol and Drug Abuse Patient Records regulations: The Federal rules restrict any use of the information to criminally investigate or prosecute any alcohol or drug abuse patient.[facility] Hospital[facility] the event this information is protected by the Federal Confidentiality of Alcohol and Drug Abuse Patient Records regulations: The Federal rules restrict any use of the information to criminally investigate or prosecute any alcohol or drug abuse patient.[facility] Hospital[facility] the event this information is protected by the Federal Confidentiality of Alcohol and Drug Abuse Patient Records regulations: The Federal rules restrict any use of the information to criminally investigate or prosecute any alcohol or drug abuse patient.[facility] Hospital[facility] the event this information is protected by the Federal Confidentiality of Alcohol and Drug Abuse Patient Records regulations: The Federal rules restrict any use of the information to criminally investigate or prosecute any alcohol or drug abuse patient.[facility] Hospital[facility] the event this information is protected by the Federal Confidentiality of Alcohol and Drug Abuse Patient Records regulations: The Federal rules restrict any use of the information to criminally investigate or prosecute any alcohol or drug abuse patient.[facility] Hospital[facility] the event this information is protected by the Federal Confidentiality of Alcohol and Drug Abuse Patient Records regulations: The Federal rules restrict any use of the information to criminally investigate or prosecute any alcohol or drug abuse patient.[facility] FOR RECORDS PERTAINING TO PATIENTS WHO ARE [...] BE BASED ON THE PRIMARY CLINICAL RECORDS. [facility]. provides no warranty or guarantee of the accuracy or completeness of information in this document.
== END 2024-05-24 13:51 | disposition home or self-care (01) ==
PROVIDERS: PCP Family Medicine; Visit Provider Anesthesiology Pain Medicine
DX: G89.4 Chronic pain syndrome (principal); M46.1 Sacroiliitis, not elsewhere classified; M53.3 Sacrococcygeal disorders, not elsewhere classified
CPT/HCPCS: G0463

== ENCOUNTER 2024-06-07 09:21 | Day surgery (SDC) | payer OTHER, SELFPAY ==
[2024-06-07 10:07] VITALS: BP 114/63; PULSE 45; TEMP 36.2; O2SAT 97
[2024-06-07 10:23] VITALS: BP 130/69; BP 142/68; PULSE 58; PULSE 62; O2SAT 97
[2024-06-07] MEDS: IOHEXOL 240 MG/ML - 10 ML VIAL 24 MG INJ (10:24)
[2024-06-07] MEDS: LIDOCAINE HCL 2% 400 MG/20 ML MDV INJ (10:24)
[2024-06-07] MEDS: BUPIVACAINE HCL 0.25% PF 25 MG/10 ML VIAL 2 ML INJ (10:24)
--- NOTE | 2024-06-07 10:24 | W.PM.PROCNOT ---
Date of procedure: 06/07/24 Pre-op diagnosis: Pain due to left sacroiliitis Post-op diagnosis: same as pre-op Procedure: Procedure: Left sacroiliac joint injection Medications: Bupivacaine 0.25% 3cc, depomedrol 40mg After informed consent was obtained, the patient was brought to the medical procedure unit and placed in the prone position, when a timeout was completed verifying correct patient, procedure, site, positioning, implant, and/or special equipment.? The skin overlying the area was prepped and draped in standard sterile fashion using alcohol.? A 25-gauge needle was inserted towards the left sacroiliac joint under direct fluoroscopic imaging.? Needle tip was advanced until the joint was encountered.? We instilled a total of 2 mL of solution.? Postoperatively needles were removed.? The patient tolerated the procedure well without complication.? The patient reported reduction in pain symptoms postoperatively. Anesthesia: Local Surgeon: Uriel Castano Pathology: none sent Condition: stable Disposition: no change
[2024-06-07] MEDS: METHYLPREDNISOLONE ACETATE 40 MG/ML VIAL INJ (10:25)
== END 2024-06-07 10:29 | disposition home or self-care (01) ==
PROVIDERS: PCP Family Medicine; Visit Provider Anesthesiology
DX: M46.1 Sacroiliitis, not elsewhere classified (principal); M53.3 Sacrococcygeal disorders, not elsewhere classified
CPT/HCPCS: 27096; J0665; J1010; Q9966

== ENCOUNTER 2024-06-23 13:58 | Outpatient (OUT) | payer OTHER, SELFPAY ==
--- NOTE | 2024-06-23 14:31 | P.CN_ITS ---
Consult Note: HPI Data of Consult Patient: known to practice within the last 3 years Requesting Physician: Uriel Castano MD Primary Care Provider: Ryan ORTIZ Consult Narrative Reason for consult: f/u Narrative: Tasneem Camarillo a pleasant 49 year old female presents for evaluation of low back and SIJ pain. longstanding hx of low back and SIJ pain secondary to lumbar spondylosis and sacroiliitis. pt has failed to benefit from > 6 weeks of PT and provider guided HEP, heat, ice, tylenol, NSAIDs. recently underwent left SIJ injection with >50% improvement ongoing. continues to have moderate to severe axial facet mediated low back pain. pt reports low back pain 7/10 sharp pain increasing to 10/10 with mopping, sweeping, standing, walking, housework. Pain improved with heat, lying, and sitting down. utilizes lyrica 200mg BID, percocet 5-325mg daily-BID prn for moderate to severe pain, zanaflex, oxaprozin prn without side effects. cc:: CC: Uriel Castano MD Review of Systems ROS Status of ROS 10 or more systems reviewed and unremark able except as noted in history and below Musculoskeletal Reports: back pain PFSH PFSH Social History Smoking status: Never smoker Meds Home Medications and Allergies Home Medications ?Medication ?Instructions ?Recorded ?Confirmed ?Type atenolol 50 mg-chlorthalidone 25 1 tab PO DAILY 08/12/22 08/12/22 History mg tablet wfmknnzahx-rzfusjrzigzpu-smzv PO .Q4 08/12/22 History lamotrigine 200 mg tablet 200 mg PO DAILY 08/12/22 08/12/22 History ondansetron 4 mg disintegrating 4 mg PO Q6H 08/12/22 08/12/22 History tablet oxaprozin 600 mg tablet 600 mg PO BID 08/12/22 08/12/22 History oxycodone-acetaminophen 5 mg-325 1 tab PO DAILY 08/12/22 08/12/22 History mg tablet tizanidine 4 mg tablet 4 mg PO .QHS 08/12/22 08/12/22 History naloxone 4 mg/actuation nasal 4 mg intranasal Q3M PRN opioid 02/13/23 Rx spray (Narcan) overdose #2 ea oxycodone-acetaminophen 5 mg-325 1 tab PO DAILY PRN pain #30 tabs 02/11/24 Rx mg tablet (Percocet) paroxetine HCl 30 mg tablet 60 mg PO 02/11/24 History pregabalin 200 mg capsule (Lyrica) 200 mg PO Q12H 02/11/24 02/11/24 History oxycodone-acetaminophen 5 mg-325 1 tab PO Q8H PRN pain #30 tabs 05/24/24 Rx mg tablet (Percocet) oxycodone-acetaminophen 5 mg-325 See Rx Instructions .Route 05/24/24 Rx mg tablet (Percocet) .COMPLEX PRN pain #30 tabs Allergies Allergy/AdvReac Type Severity Reaction Status Date / Time metoclopramide (From Reglan) Allergy Intermediate Verified 03/14/23 10:57 sulfabenzamide Allergy Intermediate Verified 08/09/22 09:21 sumatriptan (From Imitrex) Allergy Intermediate Verified 08/09/22 09:21 amoxicillin (From Augmentin) Allergy Unknown Verified 03/14/23 10:57 clavulanic acid (From Allergy Unknown Verified 03/14/23 10:57 Augmentin) Exam Constitutional Documenting provider has reviewed patient's vital signs: yes Common normals: no apparent distress, oriented x3, healthy appearing, alert and well nourished General appearance: cooperative HENMT Common normals: normocephalic, hearing grossly normal bilaterally and moist oral mucous membranes Head and scalp: normocephalic Eye Common normals: PERRL Pupil: PERRL Neck & C-Spine Common normals: full ROM General: normal visual inspection Chest Common normals: inspection of chest normal Respiratory Common normals: normal respiratory effort, no retractions and no use of accessory muscles Back & Pelvis Lumbar spine/lower back: ROM limited, pain with ROM and lumbar spinal tenderness Lumbar spinal tenderness location: L3, L4 and L5 Sacroiliac joints: SI joint(s) abnormal Other: positive facet loading strength 5/5 in BLE sensation intact BLE mildly positive left rohan(patricks), gaenslens, thigh thrust, compression test Neuro Common normals: oriented x3 Sensorium/orientation: alert Psych Common normals: mental status grossly normal, thought process normal, cooperative, affect normal, speech normal and activity/motor behavior normal Speech: normal speech Thought process: normal thought process Results Additional Findings Additional findings: If on a controlled substance or opioids, I have checked an [place]AR[place] report on this patient and there are no aberrancies noted in the prescribing history.??If on a controlled substance or opioid a drug screen was completed and reviewed within the last year, and if there has not been a drug screen completed we ordered one today to monitor higher risk, state monitored pain medication use. As part of providing excellent, safe, comprehensive care, the following was completed at our patient's visit: 1. A medication reconciliation and review to ensure accurate knowledge of current/active medications, including asking our patients to inform us about any agmx-rqk-tbjfudo medications or herbal remedies/nutritional supplements/alternative remedies. 2. A review to specifically ensure our patients have had annual screening for screening for depression, screening for tobacco use, and screening for unhealthy alcohol use. For concerning screenings had a discussion with the patient, provided patient education, and recommended follow-up with primary care provider when appropriate. If patient noted with a risk of falling, they received e ducation on strength, gait, and balance training to prevent future risk of falling. Portions of this note may have been carried over from the previous visit and updated as appropriate. Please note this office utilizes paper charting in addition to the electronic medical record. A list of current medications, vitals, and PMH is available there as the clinical staff outside of myself do not have access to [employer] charting during the clinic day operations. As part of providing quality comprehensive care the current medications, vitals, and PMH were reviewed in the paper chart. Assessment and Plan Assessment and Plan (1) Lumbar spondylosis: Assessment and Plan: The patient has had over 3 months of moderate to severe axial low back pain with functional impairment and inadequate response to conservative care including NSAIDS (unless there are contraindication such as concurrent blood thinners), multiple oral or topical pain medications, and home exercise program/physical therapy.? Patient has completed >6 weeks of guided home exercise program and/or formal physical therapy program without relief of their symptoms.? I have reviewed the imaging of the lumbar spine and no red flags were identified.? The Oswestry Disability Index was completed, and the patient scored a 48%.? The patient noted the following:?? moderate to severe pain with standing, walking, lifting, ADLs, sleep, social life We discussed the risks and benefits of the procedure with the patient, and we are not planning on using sedation as outlined in the guidelines from Medicare unless there is a documented reason that sedation would be strongly recommen ded.??The procedure will be completed with fluoroscopic guidance.? (2) Myofascial pain: (3) Chronic prescription opiate use: (4) Sacroiliitis: Plan proceed with bilateral L4-5 L5-S1 medial branch block x2 working towards RFA continue current medications, risks vs benefits reviewed continue HEP as tolerated f/u after each injection
== END 2024-06-23 13:59 | disposition home or self-care (01) ==
LOC: PM 13:58
PROVIDERS: PCP Family Medicine; Visit Provider Anesthesiology
DX: M47.816 Spondylosis without myelopathy or radiculopathy, lumbar region (principal); M79.18 Myalgia, other site; Z79.891 Long term (current) use of opiate analgesic; M46.1 Sacroiliitis, not elsewhere classified
CPT/HCPCS: G0463

== ENCOUNTER 2024-08-09 08:38 | Day surgery (SDC) | payer OTHER, SELFPAY ==
--- OUTSIDE RECORDS SUMMARY | 2024-08-09 08:45 | XMS_ITS | Encounter Summary ---
Author Organization [facility] Address [address] [place] [address] Care Team Providers Care Industrial Machine Assembler Name Role Phone Jamisonevelia Masters DO, George Robert Primary Care Provi joann Malina Castaneda CNP Unavailable [phone] Source Comments In the event this information is protected by the Federal Confidentiality of Alcohol and Drug AbusePatient Records regulations: The Federal rules restrict any use of the information to criminally investigate or prosecute any alcohol or drug abuse patient.[facility] Encounter Details Date Type Department Care Team ([facility] Contact Info) Description 06/26/2023 [place] [address] Provider, [facility] Actionable Imaging Result Notification Patient Outreach Social History Tobacco Use Types Packs/Day Years Used Date Smoking Tobacco: Never Smokeless Tobacco: Never Area Deprivation Index Answer Date Josse rded National Score (1-100), lower number is lower ri sk 79 06/25/2023 State Score (1-10), lower number is lower risk 7 06/25/2023 Data from: https://www.neighborhoodatlas.[facility] Last address used for calculation [address] [place] [address] 06/25/2023 Comments No Sex and Gender Information Value Date Recorded Sex Assigned at Not on file Legal Sex Female 11:16 PM EST Gender Identity Not on file Sexual Orientation Not on file documented as of this encounter Plan of Treatment Not on file documented as of this encounter Visit Diagnoses Not on filedocumented in this encounter Care Teams Industrial Machine Assembler Relationship Specialty Start Date End Date Dennis Pepper Jr., DO [address] [place] [address] PCP - General Family Medicine 05/19/23 Malina Csataneda, INGREDIENT SPECIALIST [address] [place] [address] Referring Family Medicine 05/19/23 documented as of this encounter
--- OUTSIDE RECORDS SUMMARY | 2024-08-09 08:45 | XMS_ITS | Encounter Summary ---
Author Organization [facility] Address [address] [place] [address] Care Team Providers Care Laborer Sawmill Name Role Phone Shantelle Masters MD, [facility] Primary Care Provider + Reason for Visit * Reason Onset Date Comments [facility] AUTH 08/06/2024 Encounter Details Date Type Department Care Team (Late st Contact Info) Description 08/06/2024 Telephone [facility] [address] [place] [address] [place] [phone] Ashley Dorado, JAGDISH [facility] AUTH Social History Tobacco Use Types Packs/Day Years Used Date Smoking Tobacco: Never Smokeless Tobacco: Never Alcohol Use Standard Drinks/Week Comments Not Currently 0 (1 standard drink = 0.6 oz pur e alcohol) very rare Humiliation, Afraid, Rape, and Kick questionnair e Answer Date Recorded Within the last year, have y ou been afraid of your partner or ex-partner? No 07/13/2024 Emotionally Abused Not on file 07/13/2024 Physically Abused Not on file 07/13/2024 Sexually Abused Not on file 07/13/2024 Overall Financial Resource Strain (CARDIA) Answe r Date Recorded How hard is it for you to pa y for the very basics like food, housing, medical care, and heating? Not very hard 02/26/2022 PHQ-2 Answer Date Recorded Patient Health Questionnaire-2 Score 0 07/13/2024 [facility] [place] of Occupat ional Health - Occupational Stress Questionnaire Answer Date Recorded Do you feel stress - tense, restless, nervous, or anxious, or unable to sleep at night because your mind is troubled all the time - these days? Not at all 02/26/2022 PRAPARE - Transportation Answer Date Re corded In the past 12 months, has l ack of transportation kept you from medical appointments or from getting medications? No 02/08 In the past 12 months, has l ack of transportation kept you from meetings, work, or from getting things needed for daily living? No 02/26/2022 Sex and Gender Information Value Date Recorded Sex Assigned at Female 11/25/2022 6:50 AM EDT Gender Identity Female 11/25/2022 6:50 AM EDT Sexual Orientation Heterosexual or Straight 11/08 6:50 AM EDT documented as of this encounter Miscellaneous Notes * Telephone Encounter - Julienne Grabiel - 08/06/2024 11:51 AM EDT [facility] authorization on file for OUTPATIENT SX- RT SMALL FINGER DIP FUSION, RT SMALL FINGER TRIGGER FINGER RELEASE Valid 08/05/2024-10/05/2024 documented in this encounter Plan of Treatment Upcoming Encounters Date Type Department Care Team (Late st Contact Info) Description 10/19/2024 1:00 PM EDT Office Visit [facility] [address] [place] [address] [place] [phone] Vadim Dorado MD [address] [place] [phone] documented as of this encounter Visit Diagnoses Not on filedocumented in this encounter Care Teams Laborer Sawmill Relationship Specialty Start Date End Date Ryan Pepper Jr., MD [address] PCP - General 05/27/22 documented as of this encounter
--- OUTSIDE RECORDS SUMMARY | 2024-08-09 08:45 | XMS_ITS | Referral Summary ---
Author Organization [facility] Address [address] [place] [address] Care Team Providers Care Cork Grinder Name Role Phone Shantelle Masters MD, [facility] Primary Care Provider + Encounters Date Type Department Care Team Description 08/06/[address] [place] [address] Ashley Dorado RN [facility] AUTH 07/13/2024 9:10 AM EDT Office Visit [address] [place] [address] Vadim Dorado MD Contracture of finger joint, right (Primary Dx) 06/11/[address] [place] [address] Karolyn Coello MA Purple finger from Last 3 Months Allergies Active Allergy Reactions Criticality Noted Date Comments Amoxicillin-Pot Clavulanate Rash,Other Low 12/29/19 Prochlorperazine Other 07/13/2024 Metoclopramide Hives,Nausea And Vomiting,Unknown,Anx iety Low 12/28/2020 Palpitations Metoclopramide Hcl Anxiety Low 05/20/2022 Sulfa (Sulfonamide Antibiotics) Unknown,Hives,Nausea And Vomiting Low 11/22/2021 Sumatriptan Anxiety,Unknown,Othe r,Palpitations,Rash Low 12/28/2020 Medications Medication Sig Dispensed Refills Start Date End Date Status ondansetron (Zofran) 4 mg tablet Take 4 mg by mouth every 8 (eight) hours if needed. 03/13/2021 Active atenoloL-chlorthalidone (Tenoretic) 50-25 mg tablet Take 1 tablet by mouth in the morning. Active PARoxetine (Paxil) 30 mg tablet Take 60 mg by mouth in the morning. Active lamoTRIgine (LaMICtal) 200 mg tablet Take 200 mg by mouth at bedtime. Active oxaprozin (Daypro) 600 mg tablet Take 600 mg by mouth two times daily. Active tiZANidine (Zanaflex) 4 mg capsule 2 mg at bedtime. Active butalbital-acetaminophe n-caff 50-325-40 mg tablet Take 1 tablet by mouth every 4 (four) hours if needed for headaches. Active bisacodyl (Dulcolax) 5 mg EC tablet 5 mg if needed each day. 04/11/2022 Active hydrOXYzine pamoate (Vistaril) 25 mg capsule TAKE 1 CAPSULE BY MOUTH EVERY 8 HOURS NEEDED FOR ANXIETY 04/07/2022 Active ondansetron ODT (Zofran-ODT) 4 mg disintegrating tablet DISSOLVE 1 TABLET ON THE TONGUE EVERY 8 HOURS NEEDED 03/11/2022 Active polymyxin B sulf-trimethoprim (Polytrim) ophthalmic solution INSTILL 1 DROP INTO AFFECTED EYE EVERY 4 HOURS FOR 7 DAYS 02/11/2022 Active oxyCODONE-acetaminophen (Percocet) 5-325 mg tablet TAEK 1 TABLET BY MOUTH DAILY NEEDED 10/25/2022 Active pregabalin (Lyrica) 200 mg capsule Take 200 mg by mouth two times daily. Active multivit-min/iron/FA/vi t K/lut ([facility] WOMEN 50 PLUS ORAL) Take by mouth 1 (one) time each day. Active Active Problems Problem Noted Date Diagnosed Date Painful orthopaedic hardware 11/20/2023 Finger pain, right 11/05/2022 Arthritis 06/10/2022 Kidney stone 06/10/2022 Depressive disorder 06/10/2022 Dysphagia 06/10/2022 Epigastric pain 06/10/2022 Heartburn 06/10/2022 Hypertension 06/10/2022 Hypothyroidism 06/10/2022 Nausea 06/10/2022 Contracture of finger joint, right 05/06/2022 Overview (05/06/2022): Added automatically from request for surgery [id number] Social History Tobacco Use Types Packs/Day Years Used Date Smoking Tobacco: Never Smokeless Tobacco: Never Tobacco Cessation:Counseling Given: Not Answered Alcohol Use Standard Drinks/Week Comments Not Currently [...] Recorded Patient Health Questionnaire-2 Score 0 07/13/2024 [facility] [place] of Occupat ional Health - Occupational Stress [...] Heterosexual or Straight 11/08 6:50 AM EDT Last Filed Vital Signs Vital Sign Reading Time Taken Comments Blood Pressure 133/76 01/07/2024 12:00 PM EDT Pulse 53 01/07/2024 12:00 PM EDT Temperature 36.2 C (97.2 F) 01/07/2024 12:00 PM EDT Respiratory Rate 10 01/07/2024 12:00 PM EDT Oxygen Saturation 100% 01/07/2024 12:00 PM EDT Inhaled Oxygen Concentration - - Weight 64 kg (141 lb) 07/13/2024 9:57 AM EDT Height 157.5 cm (5' 2 ) 04/20/2024 1:07 PM EST Body Mass Index 25.79 04/20/2024 1:07 PM EST Plan of Treatment Upcoming Encounters Date Type Department Care Team (Late st Contact Info) Description 10/19/2024 1:00 PM EDT Office Visit [facility] [address] [place] [address] [place] [phone] Vadim Dorado MD [address] [place] [phone] Medical Devices Implanted Type Area Sba Underwriter Device Identifier Shelf Expiration Date Model / Serial / Lot K-Wire,#7,0.9x1 02mm - [id number] Implanted:Qty: 1 on 05/27/2022 by Vadim Dorado MD at [facility] Pin Right: Little Finger BRASSELER [id number] / / [employer] Plate Implanted:Qty: 1 on 11/25/2022 by Vadim Dorado MD at [facility] Right: Little Finger [employer] [id number] / / [employer] Raffy Screw Implanted:Qty: 1 on 11/25/2022 by Vadim Dorado MD at [facility] Right: Little Finger [employer] [id number] / / [employer] Raffy Screw Implanted:Qty: 1 on 11/25/2022 by Vadim Dorado MD at [facility] Right: Little Finger [employer] [id number] / / [employer] Lock Screw Implanted:Qty: 3 on 11/25/2022 by Vadim Dorado MD at [facility] Right: Little Finger [employer] [id number] / / [employer] Lock Screw Implanted:Qty: 1 on 11/25/2022 by Vadim Dorado MD at [facility] Right: Little Finger [employer] [id number] / / Care Teams Cork Grinder Relationship Specialty Start Date End Date Ryan Pepper Jr., MD [address] PCP - General 05/27/22
--- OUTSIDE RECORDS SUMMARY | 2024-08-09 08:45 | XMS_ITS | Clinical Summary ---
Author Organization [facility] Address [address] [place], [place] [address] Care Team Providers Care Channel Executive Name Role Phone Shantelle Masters DO, George Robert Primary Care Provi joann Malina Castaneda CNP Unavailable [phone] Allergies Active Allergy Reactions Criticality Noted Date Comments Amoxicillin Rash 03/14/2023 Metoclopramide Other: See Comments,Hives,GI Upset,Unknown Medium 01/03/2016 Palpitations Sulfa (Sulfonamide Antibiotics) Hives,GI Upset,Other: See Comments,Unknown Medium 01/03/2016 Sumatriptan Other: See Comments,Unknown,Rash Medium 12/28/2020 Medications enteric contrast (will be provided with radiology test)Indications:E pigastric abdominal pain For CT Chest Abdomen WO order Administer, As Directed One Time Only, via Oral, Rectal, both Oral and Rectal, Enteric Tube, Stoma or Indwelling Catheter, Enteric Contrast as designated per enteric contrast guidelines 1 Each 05/19/19 24 Active Additional Information Patient not taking.Reason: Discontinued by Patient, Reported on 06/25/2023 atenolol-chlorthal idone (TENORETIC) 50-25 mg per tablet Take 1 tablet by mouth once daily. 10/06/19 22 Active acetaminophen 325 mg-caffeine 40 mg-butalbital 50 mg (FIORICET) per tablet Take 1 tablet by mouth every 4 hours as needed. Active esomeprazole (NEXIUM) 40 mg capsule Take 1 capsule by mouth every afternoon. 05/13/19 24 Active famotidine (PEPCID) 20 mg tablet Take 20 mg by mouth two times a day. 04/23/19 24 Active hydrOXYzine pamoate (VISTARIL) 25 mg capsule Take 25 mg by mouth three times a day as needed. 10/06/19 22 Active lamoTRIgine (LAMICTAL) 200 mg tablet Take 200 mg by mouth two times a day. 10/09/19 17 Active ondansetron orally disintegrating (ZOFRAN ODT) 4 mg disintegrating tablet Take 4 mg by mouth every 8 hours as needed. 12/02/19 18 Active oxaprozin (DAYPRO) 600 mg tablet Take 600 mg by mouth two times a day. 08/13/19 23 Active oxyCODONE-acetamin ophen (PERCOCET) 5-325 mg tablet Take 1-2 tablets by mouth every 6 hours as needed. 05/22/19 24 Active PARoxetine (PAXIL) 30 mg tablet Take 60 mg by mouth once daily. 10/09/19 17 Active pregabalin (LYRICA) 150 mg capsule Take 1 tablet by mouth once daily. 05/20/19 23 Active tiZANidine HCl (ZANAFLEX) 4 mg capsule Take 4 mg by mouth three times a day. Active Active Problems Problem Noted Date Diagnosed Date S/P [facility] 07/02/2023 HTN (hypertension) 07/02/2023 Gastroesophageal reflux disease without esophagi tis 04/07/2023 07/02/2023 Hypothyroidism 06/10/2022 07/02/2023 Nausea 09/20/2021 07/02/2023 Social History Tobacco Use Types Packs/Day Years Used Date Smoking Tobacco: Never Passive Smoke Exposure: Past Smokeless Tobacco: Never Tobacco Cessation:Counseling Given: Not Answered Alcohol Use Standard Drinks/Week Comments Not Currently 0 (1 standard drink = 0.6 oz pur e alcohol) Area Deprivation Index Answer Date Josse rded National Score (1-100), lower number is lower ri sk 79 06/25/2023 State Score (1-10), lower number is lower risk 7 06/25/2023 Data from: https://www.neighborhoodatlas.medicine.[facility].edu/. Last address used for calculation [address] 06/25/2023 Comments No Sex and Gender Information Value Date Recorded Sex Assigned at Not on file Legal Sex Female 11:16 PM EST Gender Identity Not on file Sexual Orientation Not on file Last Filed Vital Signs Vital Sign Reading Time Taken Comments Blood Pressure 102/61 07/02/2023 11:24 AM EDT Pulse 53 07/02/2023 11:24 AM EDT Temperature 36.6 C (97.8 F) 07/02/2023 11:24 AM EDT Respiratory Rate 18 07/02/2023 9:40 AM EDT Oxygen Saturation 100% 07/02/2023 11: 24 AM EDT Inhaled Oxygen Concentration - - Weight 63.9 kg (140 lb 14.4 oz) 024 11:24 AM EDT Height 157.5 cm (5' 2 ) 07/02/2023 11:2 4 AM EDT Body Mass Index 25.77 07/02/2023 11:24 AM EDT Plan of Treatment Health Maintenance Due Date Last Done Comments Annual PCP Team Chronic Dise ase Visit 1992 Anxiety Screening 1992 BP Controlled (<130/80) 1992 Depression Screening 1992 HIV Screening 1992 Hepatitis C Screening 1992 Hepatitis B Vaccine (1 of 3 - 19+ 3-dose series) 1993 Cervical Cancer Screening 1995 CT Colonography 2019 Cologuard (FIT-DNA) 2019 Colonoscopy 2019 Colorectal Cancer Screening 2019 Diabetes Screening 2019 Fecal Occult Blood 2019 Lipid Screening 2019 Sigmoidoscopy 2019 Mammogram Screening 01/01/2020 12/31/2018 Covid-19 Vaccine (4 - 2023-2 5 season) 2023 01/23/2023, 03/28/2021, 06/06/2020 Pneumococcal Vaccine: 50+ (1 of 1 - PCV) 2024 Shingrix Vaccine (1 of 2) 2024 Influenza Vaccine (Season Ended) 2024 01/06/2023, 12/28/2020, 01/07/2020, Additional history exists DTaP,Tdap,Td Vaccine (2 - Td or Tdap) 11/15/2032 11/15/2022 Medical Devices Implanted Type Area Engineering Leader Device Identifier Shelf Expiration Date Model / Serial / Lot Plate Plate Right: Bone - Finger Description:Right fifth fing er Screw Screw Right: Bone - Finger Description:Right fifth fing er Insurance MMO SUPERMED PPO Care Teams Channel Executive Relationship Specialty Start Date End Date Dennis Pepper Jr., DO [address] [facility] [address] [place] [phone] PCP - General Family Medicine 05/19/23 Malina Castaneda, SWAGING MACHINE ADJUSTER [facility] [place] [address] Referring Family Medicine 05/19/23
--- OUTSIDE RECORDS SUMMARY | 2024-08-09 08:45 | XMS_ITS | Clinical Summary ---
Author Organization [facility] Address [address] [place] [address] Care Team Providers Care Career Technical Education Instructor Name Role Phone Shantelle Masters MD, [facility] Primary Care Provider + Allergies Active Allergy Reactions Criticality Noted Date Comments Amoxicillin-Pot Clavulanate Rash,Other Low 12/29/19 21 Prochlorperazine Other 07/13/2024 Metoclopramide Hives,Nausea And Vomiting,Unknown,Anx [...] (05/06/2022): Added automatically from request for surgery [id number] Encounters Date Type Department Care Team Description 08/06/[address] [place] [address] Ashley Dorado RN [facility] AUTH 07/13/2024 9:10 AM EDT Office Visit [address] [place] [address] Vadim Dorado MD Contracture of finger joint, right (Primary Dx) 06/11/2024 Telephone [facility] [address] [place] [address] Karolyn Coello MA Purple finger from Last 3 Months Social History Tobacco Use Types Packs/Day Years [...] Recorded Patient Health Questionnaire-2 Score 0 07/13/2024 [facility] of Occupat ional Health - Occupational Stress [...] Description 10/19/2024 1:00 PM EDT Office Visit [facility] [address] [place] [address] [place] [address] Vadim Dorado MD [address] [place] [address] Health Maintenance Due Date Last Done Comments CT Colonography 1974 FIT-DNA 1974 FIT 1974 FOBT 1974 Sigmoidoscopy 1974 Hepatitis B Vaccines (1 of 3 - 19+ 3-dose series) 1993 Pap Smear 1995 Cervical Cancer Screening 2004 HPV/Cotest 2004 Mammogram 01/01/2021 01/01/2019 COVID-19 Vaccine ( season) 2024 12/23/2023, 01/23/2023, 03/28/2021, Additional history exists Zoster Vaccines (1 of 2) 2024 Depression Screening 07/13/2025 07/13/2024 Colonoscopy 10/12/2031 10/11/2021 Colorectal Cancer Screening 10/12/2031 Adult Tetanus 11/15/2032 11/15/2022 Influenza Vaccine Completed 12/22/2023, , 12/28/2020, Additional history exists HIB Vaccines Aged Out No longer eligi ble based on patient's age to complete this topic HPV Vaccines Aged Out No longer eligi ble based on patient's age to complete this topic IPV Vaccines Aged Out No longer eligi ble based on patient's age to complete this topic Meningococcal B Vaccine Aged Out No l onger eligible based on patient's age to complete this topic Meningococcal Vaccine Aged Out No aidee rg eligible based on patient's age to complete this topic Pneumococcal Vaccine: Pediatrics (0 to 5 Years) and At-Risk Patients (6 to 64 Years) Aged Out No longer eligible based on patient's age to complete this topic Rotavirus Vaccines Aged Out No longer eligible based on patient's age to complete this topic Medical Devices Implanted Type Area Upholsterer Apprentice Device Identifier Shelf Expiration Date Model / Serial / Lot K-Wire,#7,0.9x1 02mm - [id number] Implanted:Qty: 1 on 05/27/2022 by Vadim Dorado MD at [facility] Pin Right: Little Finger BRASSELER [id number] / / [employer] Plate Implanted:Qty: 1 on 11/25/2022 by Vadim Dorado MD at [facility] Right: Little Finger [employer] [id number] / / [employer] Raffy Screw Implanted:Qty: 1 on 11/25/2022 by Vadmi Dorado MD at [facility] Right: Little Finger [employer] [id number] / / [employer] Raffy Screw Implanted:Qty: 1 on 11/25/2022 by Vadim Dorado MD at [facility] Right: Little Finger [employer] [id number] / / [employer] Lock Screw Implanted:Qty: 3 on 11/25/2022 by Vadim Dorado MD at [facility] Right: Little Finger [employer] [id number] / / [employer] Lock Screw Implanted:Qty: 1 on 11/25/2022 by Vadim Dorado MD at [facility] Right: Little Finger [employer] [id number] / / Care Teams Career Technical Education Instructor Relationship Specialty Start Date End Date Ryan Pepper Jr., MD [address] PCP - General 05/27/22
--- OUTSIDE RECORDS SUMMARY | 2024-08-09 08:45 | XMS_ITS | Clinical Summary ---
Author Organization [facility] Address [address] [place] [address] Care Team Providers Care Hat Parts Cutter Machine Name Role Phone Cosmo Pepper MD Primary Care Provider [phone] Allergies Active Allergy Reactions Criticality Noted Date Comments Amoxicillin-Pot Clavulanate Other (See Comments),Rash Low 12/28/2020 Metoclopramide Hives,Nausea And Vomiting Low 12/28/2020 Palpitations Sulfa Antibiotics Nausea And Vomiting Low 3 Sumatriptan Palpitations,Other (See Comments),Rash Low 12/28/2020 Medications Butalbital-APAP -Caffeine (FIORICET PO) Refill(s) 0 0 Active tiZANidine (ZANAFLEX) 4 MG tablet Take 4 mg by mouth every 6 hours as needed Active oxaprozin (DAYPRO) 600 MG tablet Take 1,200 mg by mouth 2 times daily Active lamoTRIgine (LAMICTAL) 200 MG tablet Take 200 mg by mouth daily Active PARoxetine (PAXIL) 20 MG tablet Take 30 mg by mouth every morning Active PARoxetine (PAXIL) 10 MG tablet Take 10 mg by mouth at bedtime Active busPIRone (BUSPAR) 15 MG tablet Take 15 mg by mouth in the morning and at bedtime Active buPROPion (WELLBUTRIN SR) 150 MG extended release tablet Take 150 mg by mouth 2 times daily Active bisacodyl 5 MG EC tablet Take 2 tablets by mouth daily as needed for Constipation 10 tablet 3 Active tamsulosin (FLOMAX) 0.4 MG capsule Take 1 capsule by mouth daily for 10 days 10 capsule 3 Active dicyclomine (BENTYL) 10 MG capsule Take 1 capsule by mouth every 6 hours as needed (for pain) 20 capsule 1 3 Active naproxen (NAPROSYN) 250 MG tablet Take 1 tablet by mouth 2 times daily as needed for Pain 20 tablet 5 3 Active Social History Tobacco Use Types Packs/Day Years Used Date Smoking Tobacco: Never Smokeless Tobacco: Never Tobacco Cessation:Counseling Given: Not Answered Alcohol Use Standard Drinks/Week Comments Never 0 (1 standard drink = 0.6 oz pur e alcohol) AUDIT-C Answer Date Recorded Q1: How often do you have a drink containing alcohol? Never 04/11/2022 Q2: How many drinks containi ng alcohol do you have on a typical day when you are drinking? Patient does not drink Q3: How often do you have si x or more drinks on one occasion? Never 04/11/2022 Comments No Sex and Gender Information Value Date Recorded Sex Assigned at Not on file Legal Sex Female 3:29 PM EST Gender Identity Not on file Sexual Orientation Not on file Last Filed Vital Signs Vital Sign Reading Time Taken Comments Blood Pressure 138/94 04/11/2022 2:30 PM EST Pulse 85 04/11/2022 2:25 PM EST Temperature 36.9 C (98.4 F) 04/11/2022 2:25 PM EST Respiratory Rate 18 04/11/2022 2:25 PM EST Oxygen Saturation 98% 04/11/2022 2:30 PM EST Inhaled Oxygen Concentration - - Weight 57.6 kg (127 lb) 04/11/2022 2:33 PM EST Height 157.5 cm (5' 2 ) 04/11/2022 2:33 PM EST Body Mass Index 23.23 04/11/2022 2:33 PM EST Plan of Treatment Health Maintenance Due Date Last Done Comments Depression Screen 1986 HIV screen 1989 Hepatitis C screen 1992 DTaP/Tdap/Td vaccine (1 - Tdap) 1993 Hepatitis B vaccine (1 of 3 - 19+ 3-dose series) 1993 Pap smear 1995 Cervical cancer screen 2004 HPV (without or with Pap) 2004 Breast cancer screen 2014 Lipids 2014 Colonoscopy 2019 Colorectal Cancer Screen 2019 FIT/FOBT: Average risk 2019 Fecal-DNA (Cologuard): [place] ge risk 2019 Sigmoidoscopy/CT colonography 2019 COVID-19 Vaccine (3 - 2023-2 5 season) 2023 03/28/2021, 06/06/2020 Pneumococcal 50+ years Vacci ne (1 of 1 - PCV) 2024 Shingles vaccine (1 of 2) 2024 Flu vaccine (Season Ended) 10/08/202412/28, 01/07/2020, 12/25/2018 Hepatitis A vaccine Aged Out No longe r eligible based on patient's age to complete this topic Hib vaccine Aged Out No longer eligi ble based on patient's age to complete this topic Meningococcal (ACWY) vaccine Aged Out No longer eligible based on patient's age to complete this topic Meningococcal B vaccine Aged Out No l onger eligible based on patient's age to complete this topic Polio vaccine Aged Out No longer elig ible based on patient's age to complete this topic Insurance CIG Care Teams Hat Parts Cutter Machine Relationship Specialty Start Date End Date Cosmo Pepper MD [address] [place] [address] [address] [place] [address] PCP - General 04/11/22
[2024-08-09 09:20] VITALS: BP 98/73; PULSE 64; TEMP 36.6; O2SAT 99
[2024-08-09 09:54] VITALS: BP 138/71; PULSE 54; O2SAT 98
[2024-08-09 09:55] VITALS: BP 138/77; O2SAT 97
[2024-08-09] MEDS: LIDOCAINE HCL 2% 400 MG/20 ML MDV INJ (09:56)
[2024-08-09] MEDS: BUPIVACAINE HCL 0.25% PF 25 MG/10 ML VIAL 8 ML INJ (09:56)
--- NOTE | 2024-08-09 09:57 | W.PM.PROCNOT ---
Date of procedure: 08/09/24 Pre-op diagnosis: Pain due to lumbar spondylosis without myelopathy Post-op diagnosis: same as pre-op Procedure: Procedure: Bilateral L4-5, L5-S1 medial branch block Medications: Bupivacaine 0.25% 6cc The patient was seen and examined in the preoperative holding area.? An informed consent was obtained and placed on the chart.? The patient was brought to the medical procedure unit and placed in the prone position.? A timeout was completed verifying correct patient, procedure site, positioning, plan, and special equipment.? Using aseptic technique, the needle was placed at left L4. Under direct fluoroscopic visualization a Quincke-tipped spinal needle was advanced to the junction of the superior articulating process with the transverse process at the designated medial branch segment.? Preceded by negative aspiration, the above-mentioned injectate was placed in 1 mL aliquots.? The procedure was repeated at left L5, S1.? The needle was removed and insertion site was covered. The same procedure, at the same levels, was completed on the right side. The patient was taken to the postprocedural recovery area and monitored for an appropriate length of time before found suitable for discharge in the company of a responsible adult. Anesthesia: Local Surgeon: Uriel Castano Pathology: none sent Condition: stable Disposition: no change
== END 2024-08-09 10:01 | disposition home or self-care (01) ==
LOC: SURGOUT 08:40
PROVIDERS: PCP Family Medicine; Visit Provider Anesthesiology
DX: M47.816 Spondylosis without myelopathy or radiculopathy, lumbar region (principal); M54.50 Low back pain, unspecified
CPT/HCPCS: 64493; 64494; J0665

== ENCOUNTER 2024-08-11 07:59 | Outpatient (OUT) | payer OTHER, SELFPAY ==
--- OUTSIDE RECORDS SUMMARY | 2024-08-11 08:02 | XMS_ITS | Referral Summary ---
Author Organization [facility] Address [address] [place] [address] Care Team Providers Care Supervisor Vat House Name Role Phone Shantelle Masters MD, [facility] Primary Care Provider + Encounters Date Type Department Care Team Description 08/06/[address] [place] [address] Ashley Dorado RN [facility] AUTH 07/13/2024 9:10 AM EDT Office Visit [address] [place] [address] Vadim Dorado MD Contracture of finger joint, right (Primary Dx) 06/11/[address] [place] [address] Karolyn Coello MA Purple finger from [...] (05/06/2022): Added automatically from request for surgery [id number] Social History Tobacco Use Types Packs/Day Years [...] Recorded Patient Health Questionnaire-2 Score 0 07/13/2024 [facility] of Occupat ional Health - Occupational Stress [...] Description 10/19/2024 1:00 PM EDT Office Visit [facility] [address] [place] [address] [place] [address] Vadim Dorado MD [address] [place] [address] Medical Devices Implanted Type Area Ski Lift Operator Device Identifier Shelf Expiration Date Model / Serial / Lot K-Wire,#7,0.9x1 02mm - [id number] Implanted:Qty: 1 on 05/27/2022 by Vadim Dorado MD at [facility] Pin Right: Little Finger BRASSELER [id number] / / [employer] Plate Implanted:Qty: 1 on 11/25/2022 by Vadim Dorado MD at [facility] Right: Little Finger [employer] [id number] / / [employer] Raffy Screw Implanted:Qty: 1 on 11/25/2022 by Vadim Dorado MD at [facility] Right: Little Finger [employer] A-[id number] / / [employer] Raffy Screw Implanted:Qty: 1 on 11/25/2022 by Vadim Dorado MD at [facility] Right: Little Finger [employer] A-[id number] / / [employer] Lock Screw Implanted:Qty: 3 on 11/25/2022 by Vadim Dorado MD at [facility] Right: Little Finger [employer] [id number] / / [employer] Lock Screw Implanted:Qty: 1 on 11/25/2022 by Vadim Dorado MD at [facility] Right: Little Finger [employer] [id number] / / Care Teams Supervisor Vat House Relationship Specialty Start Date End Date Ryan Pepper Jr., MD [address] PCP - General 05/27/22
--- OUTSIDE RECORDS SUMMARY | 2024-08-11 08:02 | XMS_ITS | Encounter Summary ---
Author Organization [facility] Address [address] [place] [address] Phone Care Team Providers Care Dock Attendant Name Role Phone Dennis Pepper DO Primary Care Provider [phone] Encounter Details Date Type Department Care Team (Late st Contact Info) Description 10/09/2022 Scanned Document [facility] [address] [place] [address] Conversion, Onbase Social History Tobacco Use Types Packs/Day Years Used Date Smoking Tobacco: Never Assessed Comments Unknown Sex and Gender Information Value Date Recorded Sex Assigned at Not on file Legal Sex Female 4:45 PM EST Gender Identity Not on file Sexual Orientation Not on file documented as of this encounter Plan of Treatment Not on file documented as of this encounter Visit Diagnoses Not on filedocumented in this encounter Care Teams Dock Attendant Relationship Specialty Start Date End Date Dennis Pepper DO [address] [place] [address] PCP - General 10/25/16 documented as of this encounter
--- OUTSIDE RECORDS SUMMARY | 2024-08-11 08:02 | XMS_ITS | Encounter Summary ---
Author Organization [facility] Address [address] [place] [address] Care Team Providers Care High School Industrial Arts Teacher Name Role Phone Dennis Pepper DO Primary Care Provider [phone] Dennis Pepper DO Unavailable [phone] Encounter Details Date Type Department Care Team (Late Contact Info) Description 07/22/2023 Abstract [facility] [address] [place] [phone] Dennis Pepper DO [address] [place] [address] Social History Tobacco Use Types Packs/Day Years Used Date Smoking Tobacco: Never Alcohol Use Standard Drinks/Week Comments Not Currently 0 (1 standard drink = 0.6 oz pur e alcohol) PHQ-2 Answer Date Recorded Patient Health Questionnaire-2 Score 0 02/18/2023 Comments Unknown Sex and Gender Information Value Date Recorded Sex Assigned at Not on file Legal Sex Female 6:59 PM EDT Gender Identity Not on file Sexual Orientation Not on file documented as of this encounter Plan of Treatment Upcoming Encounters Date Type Department Care Team (Late Contact Info) Description 08/16/2024 9:30 AM EDT Ancillary Procedure [facility] [address] [place] [address] 08/16/2024 10:45 AM EDT Office Visit [facility] [address] [place] [phone] Winston Vallejo MD [address] [place] [address] documented as of this encounter Visit Diagnoses Not on filedocumented in this encounter Care Teams [employer] Industrial Arts Teacher Relationship Specialty Start Date End Date Dennis Pepper DO [address] [place] [address] PCP - General Family Medicine 08/15/22 Dennis Pepper DO [address] [facility] [address] [place] [address] PCP - [facility] [employer] 02/07/23 03/09/99 documented as of this encounter
--- OUTSIDE RECORDS SUMMARY | 2024-08-11 08:02 | XMS_ITS | Encounter Summary ---
Author Organization [facility] Address [address] [place] [address] Care Team Providers Care Increment Manager Name Role Phone Shantelle Masters MD, [facility] Primary Care Provider + Reason for Visit * Reason Onset Date Comments [facility] AUTH 08/06/2024 Encounter Details Date Type Department Care Team (Late st Contact Info) Description 08/06/2024 Telephone [facility] [address] [place] [address] [place] [phone] Ashley Dorado, JAGD[facility] AUTH Social History Tobacco Use Types [...] Recorded Patient Health Questionnaire-2 Score 0 07/13/2024 [facility] [place] of Occupat ional Health - Occupational Stress [...] encounter Miscellaneous Notes * Telephone Encounter - Karolyn Coello MA - 08/10/2024 2:53 PM EDT Patient returned call. Please call patient to schedule surgery. Patient # [id number] * Telephone Encounter - Marguerite Ferreira MA - 08/09/2024 9:14 AM EDT LVM to call back to schedule surgery * Telephone Encounter - Julienne Spain - 08/06/2024 11:51 AM EDT [facility] authorization on file for OUTPATIENT SX- RT SMALL FINGER DIP FUSION, RT SMALL FINGER TRIGGER FINGER RELEASE Valid 08/05/2024-10/05/2024 documented in this encounter Plan of Treatment Upcoming Encounters Date Type Department Care Team (Late st Contact Info) Description 10/19/2024 1:00 PM EDT Office Visit [facility] [address] [place] [address] [place] [phone] Vadim Dorado MD [address] [place] [address] documented as of this encounter Visit Diagnoses Not on filedocumented in this encounter Care Teams Increment Manager Relationship Specialty Start Date End Date Ryan Pepper Jr., MD [address] PCP - General 05/27/22 documented as of this encounter
--- OUTSIDE RECORDS SUMMARY | 2024-08-11 08:02 | XMS_ITS | Clinical Summary ---
Author Organization [facility] Address [address] [place] [address] Care Team Providers Care Lead Web Application Developer Name Role Phone Cosmo Pepper MD Primary Care Provider [phone] Allergies Active Allergy Reactions Criticality Noted Date [...] 2019 FIT/FOBT: Average risk 2019 Fecal-DNA (Cologuard): [place] ge risk 2019 Sigmoidoscopy/CT colonography 2019 COVID-19 [...] complete this topic Insurance CIG Care Teams Lead Web Application Developer Relationship Specialty Start Date End Date Cosmo Pepper MD [address] [place] [address] [address] [place] [address] PCP - General 04/11/22
--- OUTSIDE RECORDS SUMMARY | 2024-08-11 08:02 | XMS_ITS | Encounter Summary ---
Author Organization [facility] Address [address] [place] [address] Care Team Providers Care Intermission Coordinator Name Role Phone Dennis Pepper DO Primary Care Provider [phone] Dennis Pepper DO Unavailable [phone] Reason for Visit * Reason Comments Med Refill Encounter Details Date Type Department Care Team ([facility] Contact Info) Description 12/14/[address] [facility] [address] [place] [address] Dennis Pepper DO [address] [facility] [address] [place] [address] Chronic pain syndrome Social History Tobacco Use Types Packs/Day Years Used Date Smoking Tobacco: Never Alcohol Use Standard Drinks/Week Comments Never 0 (1 standard drink = 0.6 oz pur e alcohol) PHQ-2 Answer Date Recorded Patient Health Questionnaire-2 Score 0 12/17/2022 Comments Unknown Sex and Gender Information Value Date Recorded Sex Assigned at Not on file Legal Sex Female 6:59 PM EDT Gender Identity Not on file Sexual Orientation Not on file COVID-19 Exposure Response Date Recorded In the last 10 days, have yo u been in contact with someone who was confirmed or suspected to have Coronavirus/COVID-19? Yes 12/03/2022 7:21 AM EDT documented as of this encounter Functional Status * Over the past 2 weeks, how often have you been bothered by any of the following problems? Question Answer Date of Assessment Author Little interest or pleasure in doing things Not at all 12/17/2022 11:43 AM EDT Mo Aj LPN Feeling down, depressed, or hopeless Not at all 12/17/2022 11:43 AM EDT Yvonne Smith LPN Patient Health Questionnaire-2 Score 0 12/17/2022 11:43 AM EDT Mo Smith LPN documented as of this encounter Miscellaneous Notes * Telephone Encounter - Mo Smith LPN - 12/16/2022 8:37 AM EDT Needs appointment documented in this encounter Plan of Treatment Upcoming Encounters Date Type Department Care Team (Late st Contact Info) Description 08/16/2024 9:30 AM EDT Ancillary Procedure [facility] OB [address] [place] [address] 08/16/2024 10:45 AM EDT Office Visit [facility] OB [address] [place] [address] Winston Vallejo MD [address] [place] [address] documented as of this encounter Visit Diagnoses Diagnosis Chronic pain syndrome documented in this encounter Care Teams Intermission Coordinator Relationship Specialty Start Date End Date Dennis Pepper DO [address] [place] [address] PCP - General Family Medicine 08/15/22 Dennis Pepper DO [address] [place] [address] PCP - Medical [place] Commercial 02/07/23 03/09/99 documented as of this encounter
--- OUTSIDE RECORDS SUMMARY | 2024-08-11 08:02 | XMS_ITS | Encounter Summary ---
Author Organization [facility] Address [address] [facility] [place] [address] Care Team Providers Care Churner Name Role Phone Dennis Pepper DO Primary Care Provider [phone] Dennis Pepper DO Unavailable [phone] Encounter Details Date Type Department Care Team (Late Contact Info) Description 03/14/2023 Orders Only [facility] FM [address] [facility] [address] [place] [address] A, Unknown Practice [address] [place], [place] [phone] Social History Tobacco Use Types Packs/Day Years [...] 08/16/2024 9:30 AM EDT Ancillary Procedure [facility] [address] [place] [address] 08/16/2024 10:45 AM EDT Office Visit [facility] [address] [place] [address] Winston Vallejo MD [address] [facility] [address] [place], [place] [phone] documented as of this encounter Procedures Procedure Name Priority Date/Time Associated Diagnosis Comments XR CHEST 1 VIEW Routine 03/14/2023 2:16 PM EST documented in this encounter Results * XR chest 1 view (03/14/2023 2:16 PM EST) Anatomical Region Laterality Modality Chest Radiographic [place] ging us Unknown Practice A IMG XR PROCEDURES Final Resul t documented in this encounter Visit Diagnoses Not on filedocumented in this encounter Care Teams Churner Relationship Specialty Start Date End Date Dennis Pepper DO [address] [place] [address] PCP - General Family Medicine 08/15/22 Dennis Pepper DO [address] [place] [address] PCP - Medical [place] Commercial 02/07/23 03/09/99 documented as of this encounter
--- OUTSIDE RECORDS SUMMARY | 2024-08-11 08:02 | XMS_ITS | Encounter Summary ---
Author Organization [facility] Address [address] [place] [address] Care Team Providers Care Air Control/Anti Air Warfare Officer Name Role Phone Shantelle Masters DO, George Robert Primary Care Provi joann Malina Castaneda CNP Unavailable [phone] Source Comments In the event this information is protected by the Federal Confidentiality of Alcohol and Drug AbusePatient Records regulations: The Federal rules restrict any use of the information to criminally investigate or prosecute any alcohol or drug abuse patient.[facility] Encounter Details Date Type Department Care Team ([facility] Contact Info) Description 06/26/2023 [place] [address] Provider, [facility] Actionable Imaging Result Notification Patient Outreach Social History Tobacco Use Types Packs/Day Years Used Date Smoking Tobacco: Never Smokeless Tobacco: Never Area Deprivation Index Answer Date Josse rded National Score (1-100), lower number is lower ri sk 79 06/25/2023 State Score (1-10), lower number is lower risk 7 06/25/2023 Data from: https://www.neighborhoodatlas.medicine.[facility].edu/. Last address used for calculation [address] [place] [address] 06/25/2023 Comments No Sex and Gender Information Value Date Recorded Sex Assigned at Not on file Legal Sex Female 11:16 PM EST Gender Identity Not on file Sexual Orientation Not on file documented as of this encounter Plan of Treatment Not on file documented as of this encounter Visit Diagnoses Not on filedocumented in this encounter Care Teams Air Control/Anti Air Warfare Officer Relationship Specialty Start Date End Date Dennis Pepper Jr., DO [address] [facility] [address] [place] [address] PCP - General Family Medicine 05/19/23 Malina Castaneda, THEATRICAL TROUPER [address] [place] [address] Referring Family Medicine 05/19/23 documented as of this encounter
--- OUTSIDE RECORDS SUMMARY | 2024-08-11 08:02 | XMS_ITS | Encounter Summary ---
Author Organization [facility] Address [address] [facility] [place] [address] Care Team Providers Care Technical Training Specialist Name Role Phone Dennis Pepper DO Primary Care Provider [phone] Dennis Pepper DO Unavailable [phone] Encounter Details Date Type Department Care Team (Late Contact Info) Description 07/10/2023 Abstract [facility] [address] [place] [address] Dennis Pepper DO [address] [place] [address] Social History Tobacco Use Types Packs/Day Years [...] 08/16/2024 9:30 AM EDT Ancillary Procedure [facility] OB [address] [place] [address] 08/16/2024 10:45 AM EDT Office Visit [facility] OB [address] [place] [address] Winston Vallejo MD [address] [place] [address] documented as of this encounter Visit Diagnoses Not on filedocumented in this encounter Care Teams Technical Training Specialist Relationship Specialty Start Date End Date Dennis Pepper DO [address] [place] [address] PCP - General Family Medicine 08/15/22 Dennis Pepper DO [address] [facility] [address] [place] [address] PCP - Medical [place] Commercial 02/07/23 03/09/99 documented as of this encounter
--- OUTSIDE RECORDS SUMMARY | 2024-08-11 08:02 | XMS_ITS | Clinical Summary ---
Author Organization [facility] Address [address] [place] [address] Care Team Providers Care Cargo Supervisor Name Role Phone Shantelle Masters MD, [facility] Primary Care Provider + Allergies Active [...] (05/06/2022): Added automatically from request for surgery [id number] Encounters Date Type Department Care Team Description 08/06/[address] [place] [address] Ashley Dorado RN [facility] AUTH 07/13/2024 9:10 AM EDT Office Visit [address] [place] [address] Vadim Dorado MD Contracture of finger joint, right (Primary Dx) 06/11/2024 Telephone [facility] [address] [place] [address] Karolyn Coello MA Purple finger from Last [...] Patient Health Questionnaire-2 Score 0 07/13/2024 [facility] Occupat ional Health - Occupational Stress [...] Description 10/19/2024 1:00 PM EDT Office Visit [facility] [address] [place] [address] [place] [address] Vadim Dorado MD [address] [place] [address] Health Maintenance Due Date Last [...] this topic Medical Devices Implanted Type Area Resource Management Planner Device Identifier Shelf Expiration Date Model / Serial / Lot K-Wire,#7,0.9x1 02mm - [id number] Implanted:Qty: 1 on 05/27/2022 by Vadim Dorado MD at [facility] Pin Right: Little Finger BRASSELER [id number] / / [employer] Plate Implanted:Qty: 1 on 11/25/2022 by Vadim Doardo MD at [facility] Right: Little Finger [employer] [id number] / / [employer] Raffy Screw Implanted:Qty: 1 on 11/25/2022 by Vadim Dorado MD at [facility] Right: Little Finger [employer] [id number] / / [employer] Raffy Screw Implanted:Qty: 1 on 11/25/2022 by Vadim Dorado MD at [facility] Right: Little Finger [employer] [id number] / / [employer] Lock Screw Implanted:Qty: 3 on 11/25/2022 by Vadim Dorado MD at [facility] Right: Little Finger [employer] A-[id number] / / [employer] Lock Screw Implanted:Qty: 1 on 11/25/2022 by Vadim Dorado MD at [facility] Right: Little Finger [employer] [id number] / / Care Teams Cargo Supervisor Relationship Specialty Start Date End Date Ryan Pepper Jr., MD [address] PCP - General 05/27/22
--- OUTSIDE RECORDS SUMMARY | 2024-08-11 08:02 | XMS_ITS | Encounter Summary ---
Author Organization [facility] Address [address] [facility] [place] [address] Care Team Providers Care Manager Business Operations Name Role Phone Dennis Pepper DO Primary Care Provider [phone] Dennis Pepper DO Unavailable [phone] Encounter Details Date Type Department Care Team (Late Contact Info) Description 02/12/2024 Abstract [facility] FM [address] [place] [address] Dennis Pepper DO [address] [place] [address] Social History Tobacco Use Types Packs/Day Years Used Date Smoking Tobacco: Never Alcohol Use Standard Drinks/Week Comments Not Currently 0 (1 standard drink = 0.6 oz pur e alcohol) PHQ-2 Answer Date Recorded Patient Health Questionnaire-2 Score 0 12/22/2023 Comments Unknown Sex and Gender Information Value Date Recorded Sex Assigned at Not on file Legal Sex Female 6:59 PM EDT Gender Identity Not on file Sexual Orientation Not on file documented as of this encounter Plan of Treatment Upcoming Encounters Date Type Department Care Team (Late Contact Info) Description 08/16/2024 9:30 AM EDT Ancillary Procedure [facility] OB [address] [place] [address] 08/16/2024 10:45 AM EDT Office Visit [facility] OB [address] [place] [address] Winston Vallejo MD [address] [place] [address] documented as of this encounter Visit Diagnoses Not on filedocumented in this encounter Care Teams Manager Business Operations Relationship Specialty Start Date End Date Dnenis Pepper DO [address] [place] [address] PCP - General Family Medicine 08/15/22 Dennis Pepper DO [address] [place] [address] PCP - Medical [place] Commercial 02/07/23 03/09/99 documented as of this encounter
--- OUTSIDE RECORDS SUMMARY | 2024-08-11 08:02 | XMS_ITS | Encounter Summary ---
Author Organization [facility] Address [address] [facility] [place] [address] Care Team Providers Care Regulatory Manager Name Role Phone Dennis Pepper DO Primary Care Provider [phone] Dennis Pepper DO Unavailable [phone] Encounter Details Date Type Department Care Team (Late Contact Info) Description 04/23/2023 Orders Only [facility] FM [address] [place] [address] A, Unknown Practice [address] [place], [place] [phone] Social History Tobacco Use Types Packs/Day Years [...] OB [address] [place] [address] 08/16/2024 10:45 AM EDT Office Visit [facility] OB [address] [place] [address] Winston Vallejo MD [address] [facility] [address] [place], [place] [phone] documented as of this encounter Procedures Procedure Name Priority Date/Time Associated Diagnosis Comments XR ESOPHAGUS-BARIUM STUDY Routine 04/23/2023 4:10 PM EST XR SWALLOW FUNCTION STUDY Routine 04/23/2023 4:07 PM EST XR SWALLOW FUNCTION STUDY Routine 04/23/2023 3:55 PM EST documented in this encounter Results * XR ESOPHAGUS-BARIUM STUDY (04/23/2023 4:10 PM EST) Anatomical Region Laterality Modality Radiographic [place] ging us Unknown Practice A IMG XR PROCEDURES Final Resul t * XR SWALLOW FUNCTION STUDY (04/23/2023 4:07 PM EST) Anatomical Region Laterality Modality Radiographic [place] ging us Unknown Practice A IMG XR PROCEDURES Final Resul t * XR SWALLOW FUNCTION STUDY (04/23/2023 3:55 PM EST) Anatomical Region Laterality Modality Radiographic [place] ging us Unknown Practice A IMG XR PROCEDURES Final Resul t documented in this encounter Visit Diagnoses Not on filedocumented in this encounter Care Teams Regulatory Manager Relationship Specialty Start Date End Date Dennis Pepper DO [address] [place] [address] PCP - General Family Medicine 08/15/22 Dennis Pepper DO [address] [place] [address] PCP - Medical [place] Commercial 02/07/23 03/09/99 documented as of this encounter
--- OUTSIDE RECORDS SUMMARY | 2024-08-11 08:02 | XMS_ITS | Encounter Summary ---
Author Organization [facility] Address [address] [facility] [place] [address] Care Team Providers Care Zipper Lining Folder Name Role Phone Dennis Pepper DO Primary Care Provider [phone] Dennis Pepper DO Unavailable [phone] Encounter Details Date Type Department Care Team (Late Contact Info) Description 06/07/2024 Abstract [facility] FM [address] [place] [address] Dennis Pepper DO [address] [place] [address] Social History Tobacco Use Types Packs/Day Years [...] 08/16/2024 9:30 AM EDT Ancillary Procedure [facility] OB [address] [place] [address] 08/16/2024 10:45 AM EDT Office Visit [facility] OB [address] [place] [address] Winston Vallejo MD [address] [place] [address] documented as of this encounter Visit Diagnoses Not on filedocumented in this encounter Care Teams Zipper Lining Folder Relationship Specialty Start Date End Date Dennis Pepper DO [address] [place] [address] PCP - General Family Medicine 08/15/22 Dennis Pepper DO [address] [facility] [address] [place] [address] PCP - Medical [place] Commercial 02/07/23 03/09/99 documented as of this encounter
--- OUTSIDE RECORDS SUMMARY | 2024-08-11 08:02 | XMS_ITS | Encounter Summary ---
Author Organization [facility] Address [address] [facility] [place] [address] Care Team Providers Care Durable Medical Equipment Technician Name Role Phone Dennis Pepper DO Primary Care Provider [phone] Dennis Pepper DO Unavailable [phone] Encounter Details Date Type Department Care Team (Late st Contact Info) Description 09/23/2022 Clinisync Result Encounter [facility] External Department Unsolicited Provider, Generic External Data Social History Tobacco Use Types Packs/Day Years [...] 08/16/2024 9:30 AM EDT Ancillary Procedure [facility] OB [address] [place] [address] 08/16/2024 10:45 AM EDT Office Visit [facility] OB [address] [place] [address] Winston Vallejo MD [address] [facility] [address] [place] [address] documented as of this encounter Procedures Procedure Name Priority Date/Time Associated Diagnosis Comments HAND MIN 3 VIEWS 09/23/2022 12:4 0 PM EDT documented in this encounter Results * HAND MIN 3 VIEWS (09/23/2022 12:40 PM EDT) Anatomical Region Laterality Modality Other 09/23/2022 12:4 0 PM EDT Narrative 09/24/2022 6:12 PM EDT Patient Name: TASNEEM LOPEZ STUDY: HAND MIN 3 VIEWS INDICATION: pain, old injury G89.18: Post-op pain. COMPARISON: None ACCESSION NUMBER(S): [id number] ORDERING CLINICIAN: CHAR BRAVO FINDINGS: Flexion deformity with some arthrosis at the right 5th proximal interphalangeal joint likely related to remote fracture. No acute findings right hand. 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 No acute findings right hand. Electronically signed by: CARLA SINGH MD Procedure Note Radiology, Radiologist, MD - 09/24/2022 Patient Name: TASNEEM LOPEZ STUDY: HAND MIN 3 VIEWS INDICATION: pain, old injury G89.18: Post-op pain. COMPARISON: None ACCESSION NUMBER(S): [id number] ORDERING CLINICIAN: CHAR BRAVO FINDINGS: Flexion deformity with some arthrosis at the right 5th proximal interphalangeal joint likely related to remote fracture. No acute findings right hand. 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 No acute findings right hand. Electronically signed by: CARLA SINGH MD [facility] External Data Provider [facility] Final Result documented in this encounter Visit Diagnoses Not on filedocumented in this encounter Care Teams Durable Medical Equipment Technician Relationship Specialty Start Date End Date Dennis Pepper DO [address] [place] [address] PCP - General Family Medicine 08/15/22 Dennis Pepper DO [address] [place] [address] PCP - Medical [place] Commercial 02/07/23 03/09/99 documented as of this encounter
--- OUTSIDE RECORDS SUMMARY | 2024-08-11 08:02 | XMS_ITS | Encounter Summary ---
Author Organization [facility] Address [address] [place] [address] Care Team Providers Care Propeller Inspector Name Role Phone Dennis Pepper DO Primary Care Provider [phone] Dennis Pepper DO Unavailable [phone] Encounter Details Date Type Department Care Team (Late Contact Info) Description 03/24/2023 Abstract [facility] FM [address] [place] [address] Dennis Pepper DO [address] [place] [address] Social History Tobacco Use Types Packs/Day Years [...] 08/16/2024 9:30 AM EDT Ancillary Procedure [facility] OB [address] [place] [address] 08/16/2024 10:45 AM EDT Office Visit [facility] OB [address] [place] [address] Winston Vallejo MD [address] [place] [address] documented as of this encounter Visit Diagnoses Not on filedocumented in this encounter Care Teams Propeller Inspector Relationship Specialty Start Date End Date Dennis Pepper DO [address] [place] [address] PCP - General Family Medicine 08/15/22 Dennis Pepper DO [address] [facility] 230 [place] [address] PCP - Medical [place] Commercial 02/07/23 03/09/99 documented as of this encounter
--- OUTSIDE RECORDS SUMMARY | 2024-08-11 08:02 | XMS_ITS | Encounter Summary ---
Author Organization [facility] Address [address] [facility] [place] [address] Care Team Providers Care Mold Yarn Supervisor Name Role Phone Dennis Pepper DO Primary Care Provider [phone] Dennis Pepper DO Unavailable [phone] Encounter Details Date Type Department Care Team (Late Contact Info) Description 03/31/2023 Abstract [facility] FM [address] [place] [address] Dennis Pepper DO [address] [place] [address] Social History Tobacco Use Types Packs/Day Years [...] 08/16/2024 9:30 AM EDT Ancillary Procedure [facility] OB [address] [place] [address] 08/16/2024 10:45 AM EDT Office Visit [facility] OB [address] [place] [address] Winston Vallejo MD [address] [place] [address] documented as of this encounter Visit Diagnoses Not on filedocumented in this encounter Care Teams Mold Yarn Supervisor Relationship Specialty Start Date End Date Dennis Pepper DO [address] [place] [address] PCP - General Family Medicine 08/15/22 Dennis Pepper DO [address] [facility] [address] [place] [address] PCP - Medical [place] Commercial 02/07/23 03/09/99 documented as of this encounter
--- OUTSIDE RECORDS SUMMARY | 2024-08-11 08:02 | XMS_ITS | Clinical Summary ---
Author Organization [facility] Address [address] [place] [address] Phone Care Team Providers Care Developmental Electronics Assembler Name Role Phone Jimmyjose Dennis Samano Primary Care Provider [phone] Allergies Active Allergy Reactions Criticality Noted Date Comments Metoclopramide Hcl Unknown 12/15/2022 Sulfa (Sulfonamide Antibiotics) Unknown 10/2022 Sumatriptan Unknown 12/15/2022 Medications alendronate (Fosamax) 40 mg tablet Take 1 tablet (40 mg) by mouth once daily. 10/25/2016 Active lamoTRIgine (LaMICtal) 200 mg tablet Take 1 tablet (200 mg) by mouth. 10/08/2016 Active PARoxetine (Paxil) 30 mg tablet Take 2 tablets (60 mg) by mouth once daily. 10/08/2016 Active topiramate (Topamax) 25 mg tablet Take 1 tablet (25 mg) by mouth 2 times a day. 25mg tabs titrate to 100mg bid per protocol 10/25/2016 Active Active Problems Problem Noted Date Diagnosed Date Complex regional pain syndro me type 1 of left lower extremity 12/15/2022 Dislocation of finger 12/15/2022 Joint contracture 12/15/2022 Immunizations Immunization Administration Dates Next Due Flu vaccine (IIV4), preservative free *Check age /dose* 01/07/2020 Flu vaccine, trivalent, pres ervative free, no egg protein, age 6 months or greater (Flucelvax) 12/25/2018 Influenza, injectable, quadrivalent 12/28/2020 Tdap vaccine, age 7 year and older (BOOSTRIX, AD ACEL) 11/15/2022 Family History Medical History Relation Name Comments Colon cancer Mother Diabetes Mother Relation Name Status Comments Mother Social History Tobacco Use Types Packs/Day Years Used Date Smoking Tobacco: Never Assessed Tobacco Cessation:Counseling Given: Not Answered Comments Unknown Sex and Gender Information Value Date Recorded Sex Assigned at Not on file Legal Sex Female 4:45 PM EST Gender Identity Not on file Sexual Orientation Not on file Last Filed Vital Signs Vital Sign Reading Time Taken Comments Blood Pressure 170/86 08/04/2020 7:15 AM EDT Pulse 64 08/04/2020 7:15 AM EDT Temperature 36 C (96.8 F) 08/04/2020 7:15 AM EDT Respiratory Rate 16 08/04/2020 7:15 AM EDT Oxygen Saturation - - Inhaled Oxygen Concentration - - Weight 59 kg (130 lb) 07/08/2022 2:44 PM EDT Height 157.5 cm (5' 2 ) 07/08/2022 2:44 PM EDT Body Mass Index 23.78 07/08/2022 2:44 PM EDT Plan of Treatment Health Maintenance Due Date Last Done Comments CT Colonography 1974 Colonoscopy 1974 Colorectal Cancer Screening 1974 FIT-DNA (Cologuard) 1974 FIT 1974 HIV Screening 1974 Lipid Panel 1974 Sigmoidoscopy 1974 Yearly Adult Physical 1974 MMR Vaccines (1 of 1 - Standard series) 1975 Diabetes Screening 1992 Hepatitis C Screening 1992 Hepatitis B Vaccines (1 of 3 - 19+ 3-dose series) 1993 Cervical Cancer Screening 1995 HPV/Cotest 1995 Pap Smear 1995 Mammogram 2014 COVID-19 Vaccine (3 - 2023-2 5 season) 2023 03/28/2021, 06/06/2020 Pneumococcal Vaccine (1 of 1 - PCV) 2024 Zoster Vaccines (1 of 2) 2024 Influenza Vaccine (Season Ended) 2024 12/28/2020, 01/07/2020, 12/25/2018 DTaP/Tdap/Td Vaccines (2 - T d or Tdap) 11/15/2032 11/15/2022 HIB Vaccines Aged Out No longer eligi ble based on patient's age to complete this topic HPV Vaccines Aged Out No longer eligi ble based on patient's age to complete this topic Hepatitis A Vaccines Aged Out No long er eligible based on patient's age to complete this topic IPV Vaccines Aged Out No longer eligi ble based on patient's age to complete this topic Meningococcal Vaccine Aged Out No aidee rg eligible based on patient's age to complete this topic Rotavirus Vaccines Aged Out No longer eligible based on patient's age to complete this topic Care Teams Developmental Electronics Assembler Relationship Specialty Start Date End Date Dennis Pepper DO [address] [address] PCP - General 10/25/16
--- OUTSIDE RECORDS SUMMARY | 2024-08-11 08:02 | XMS_ITS | Encounter Summary ---
Author Organization [facility] Address [address] [facility] [place] [address] Care Team Providers Care Automatic Lump Making Machine Tender Name Role Phone Dennis Pepper DO Primary Care Provider [phone] Dennis Pepper DO Unavailable [phone] Encounter Details Date Type Department Care Team (Late Contact Info) Description 04/29/2023 Orders Only [facility] FM [address] [place] [phone] A, Unknown Practice [address] [place], [place] [id number] Social History Tobacco Use Types Packs/Day Years [...] OB [address] [place] [address] 08/16/2024 10:45 AM EDT Office Visit [facility] [address] [place] [address] Winston Vallejo MD [address] [place], [place] [phone] documented as of this encounter Procedures Procedure Name Priority Date/Time Associated Diagnosis Comments MRI : ABDOMEN Routine 04/28/2023 3:05 PM EST documented in this encounter Results * MRI : ABDOMEN (04/28/2023 3:05 PM EST) Anatomical Region Laterality Modality Radiographic [place] ging us Unknown Practice A IMG XR PROCEDURES Final Resul t documented in this encounter Visit Diagnoses Not on filedocumented in this encounter Care Teams Automatic Lump Making Machine Tender Relationship Specialty Start Date End Date Dennis Pepper DO [address] [place] [address] PCP - General Family Medicine 08/15/22 Dennis Pepper DO [address] [place] [address] PCP - Medical [place] [employer] 02/07/23 03/09/99 documented as of this encounter
--- OUTSIDE RECORDS SUMMARY | 2024-08-11 08:02 | XMS_ITS | Encounter Summary ---
Author Organization [facility] Address [address] [facility] [[email or web address] [address] Care Team Providers Care Financial Assistant Name Role Phone Dennis Pepper DO Primary Care Provider [phone] Dennis Pepper DO Unavailable [phone] Encounter Details Date Type Department Care Team (Late Contact Info) Description 03/16/2024 Abstract [facility] FM [address] [place] [address] Dennis Pepper DO [address] [place] [address] Social History Tobacco Use Types Packs/Day Years [...] 08/16/2024 9:30 AM EDT Ancillary Procedure [facility] OB [address] [place] [address] 08/16/2024 10:45 AM EDT Office Visit [facility] OB [address] [place] [phone] Winston Vallejo MD [address] [place] [address] documented as of this encounter Visit Diagnoses Not on filedocumented in this encounter Care Teams Financial Assistant Relationship Specialty Start Date End Date Dennis Pepper DO [address] [place] [address] PCP - General Family Medicine 08/15/22 Dennis Pepper DO [address] [facility] [address] [place] [address] PCP - Medical [place] [employer] 02/07/23 03/09/99 documented as of this encounter
--- OUTSIDE RECORDS SUMMARY | 2024-08-11 08:02 | XMS_ITS | Clinical Summary ---
Author Organization [facility] Address [address] [place] [address] Care Team Providers Care House Detective Name Role Phone Dennis Pepper DO Primary Care Provider [phone] Dennis Pepper DO Unavailable [phone] Allergies Active Allergy Reactions Criticality Noted Date Comments Amoxicillin-Pot Clavulanate Rash Low 10/23/19 23 Sumatriptan Palpitations Low 10/22/2022 Metoclopramide Anxiety Low 10/22/2022 Sulfa Antibiotics 10/22/2022 Medications oxyCODONE-acetami nophen (Percocet) 5-325 MG tablet Take 1 tablet by mouth in the morning. 023 Active hydrOXYzine pamoate (Vistaril) 25 MG capsuleIndication s:Anxiety and depression (CMS/HCC) Take 1 capsule (25 mg) by mouth every 8 (eight) hours if needed for anxiety 30 capsule 5 024 Active ondansetron ODT (Zofran-ODT) 4 MG disintegrating tabletIndications :Headache DISSOLVE 1 TABLET ON THE TONGUE EVERY 8 HOURS NEEDED 18 tablet 2 024 Active atenolol-chlortha lidone (Tenoretic) 50-25 MG tabletIndications :Primary hypertension (CMS/HCC) TAKE 1 TABLET BY MOUTH EVERY DAY 90 tablet 2 024 Active lamoTRIgine (LaMICtal) 200 MG tabletIndications :Bipolar affective disorder, remission status unspecified (CMS/HCC),Anxiety and depression (CMS/HCC) Take 1 tablet (200 mg) by mouth Daily 90 tablet 3 024 Active valACYclovir (Valtrex) 500 MG tabletIndications :History of cold sores TAKE 1 TABLET BY MOUTH EVERY MORNING 1 IN THE EVENING & 1 AT BEDTIME FOR 7 DAYS 21 tablet 1 025 Active fluticasone (Flonase) 50 MCG/ACT nasal sprayIndications: Acute recurrent maxillary sinusitis Administer 2 sprays into each nostril Daily Shake gently. Before first use, prime pump. After use, clean tip and replace cap. 025 2025 Active azithromycin (Zithromax) 250 MG tabletIndications :Acute recurrent maxillary sinusitis 2 pills orally today, then 1 pill orally daily for 4 days 6 tablet 025 Active PARoxetine (Paxil) 30 MG tabletIndications :Bipolar affective disorder, remission status unspecified (CMS/HCC) TAKE 2 TABLETS BY MOUTH IN THE MORNING 180 tablet 3 025 Active estradiol (Estrace) 0.1 MG/GM vaginal creamIndications: Vulvovaginal Atrophy Insert twice weekly 42.5 g 12 025 Active Vibegron (Gemtesa) 75 MG tabletIndications :Other urinary incontinence Take 75 mg by mouth Daily 30 tablet 3 025 Active pregabalin (Lyrica) 200 MG capsuleIndication s:Complex regional pain syndrome type 1, affecting unspecified site,Disorder of intervertebral disc of lumbar spine,Chronic pain syndrome,Neuropat hy TAKE 1 CAPSULE BY MOUTH IN THE MORNING AND 1 CAPSULE BEFORE BEDTIME. 60 capsule 025 Active oxaprozin (Daypro) 600 MG tabletIndications :Unspecified thoracic, thoracolumbar and lumbosacral intervertebral disc disorder Take 1 tablet (600 mg) by mouth in the morning and 1 tablet (600 mg) before bedtime. 60 tablet 3 025 Active butalbital-acetam inophen-caffeine (Fioricet) 50-300-40 MG capsuleIndication s:Nonintractable headache, unspecified chronicity pattern, unspecified headache type TAKE 1 CAPSULE BY MOUTH EVERY 4 HOURS NEEDED FOR HEADACHES 40 capsule 025 Active tiZANidine (Zanaflex) 4 MG tabletIndications :Other chronic pain Take 1 tablet (4 mg) by mouth 3 (three) times a day as needed for muscle spasms 270 tablet 1 025 Active tiZANidine (Zanaflex) 4 MG tabletIndications :Other chronic pain TAKE 1 TABLET BY MOUTH THREE TIMES A DAY NEEDED 270 tablet 1 024 2024 Discontinued(R eorder) oxaprozin (Daypro) 600 MG tabletIndications :Unspecified thoracic, thoracolumbar and lumbosacral intervertebral disc disorder TAKE 1 TABLET BY MOUTH EVERY MORNING AND 1 TABLET BEFORE BEDTIME 60 tablet 3 024 2024 Discontinued(R eorder) butalbital-acetam inophen-caffeine (Fioricet) 50-300-40 MG capsuleIndication s:Nonintractable headache, unspecified chronicity pattern, unspecified headache type TAKE 1 CAPSULE BY MOUTH EVERY 4 HOURS NEEDED FOR HEADACHES 40 capsule 025 2024 Discontinued(R eorder) pregabalin (Lyrica) 200 MG capsuleIndication s:Complex regional pain syndrome type 1, affecting unspecified site,Disorder of intervertebral disc of lumbar spine,Chronic pain syndrome,Neuropat hy Take 1 capsule (200 mg) by mouth in the morning and 1 capsule (200 mg) before bedtime. 60 capsule 025 2024 Discontinued oxaprozin (Daypro) 600 MG tabletIndications :Unspecified thoracic, thoracolumbar and lumbosacral intervertebral disc disorder Take 1 tablet (600 mg) by mouth in the morning and 1 tablet (600 mg) before bedtime. 60 tablet 3 025 2024 Discontinued(R eorder) Active Problems Problem Noted Date Diagnosed Date Dizzy spells 05/31/2024 Fatty liver 09/17/2023 S/P Jluis fundoplication (w ithout gastrostomy tube) procedure 07/02/2023 Gastroesophageal reflux disease without esophagi tis 04/07/2023 Irritable bowel syndrome 12/17/2022 Solitary pulmonary nodule 12/17/2022 Stage 3a chronic kidney disease (HCC) 12/17/2022 Complex regional pain syndro me type 1 of left lower extremity 12/15/2022 Dislocation of finger 12/15/2022 Chronic pain 08/15/2022 Disorder of intervertebral disc of lumbar spine 08/15/2022 Arthritis 06/10/2022 Dysphagia 06/10/2022 Epigastric pain 06/10/2022 Heartburn 06/10/2022 Hypothyroidism 06/10/2022 Kidney stone 06/10/2022 Contracture of joint of right hand 05/06/2022 Overview (12/17/2022): Added automatically from request for surgery [id number] Urinary hesitancy 12/14/2020 Complex regional pain syndrome I, unspecified Anxiety attack 12/25/2018 Neuropathy 12/25/2018 Insomnia 01/23/2018 Status post hysterectomy 01/23/2018 Bipolar 1 disorder 05/10/2016 Hypertension 05/10/2016 Mixed anxiety and depressive disorder 05/10/2016 Encounters Date Type Department Care Team Description 07/23/2024 Refill [facility] [address] [place] [phone] Yamileth Weeks MA Unspecified thoracic, thoracolumbar and lumbosacral intervertebral disc disorder; Nonintractable headache, unspecified chronicity pattern, unspecified headache type; Other chronic pain 07/20/2024 Refill [facility] [address] [place] [address] Dennis Pepper DO Complex regional pain syndrome type 1, affecting unspecified site; Disorder of intervertebral disc of lumbar spine; Chronic pain syndrome; Neuropathy 07/19/2024 11:00 AM EDT Office Visit [facility] OB [address] [place] [address] Winston Vallejo MD Screening mammogram, encounter for (Primary Dx); Hormone imbalance; Urinary incontinence, unspecified type; Encounter for gynecological examination without abnormal finding; Encounter for screening for cervical cancer; Vaginal atrophy; Other urinary incontinence 07/19/2024 Travel 07/13/2024 Refill [facility] FM [address] [place] [phone] Dennis Pepper DO Unspecified thoracic, thoracolumbar and lumbosacral intervertebral disc disorder 06/17/2024 Telephone [facility] OB [address] [place] [address] Anel Edge LPN 06/14/2024 Patient Outreach [facility] [address] [place] [address] Tati Harrison LSW 06/14/2024 Refill [facility] [address] [place] [address] Dennis Pepper, Bipolar affective disorder, remission status unspecified (CMS/HCC) 06/07/2024 Abstract [facility] [address] [place] [address] Dennis Pepper DO 05/31/2024 2:20 PM EDT Office Visit [facility] [address] [place] [address] Dennis Pepper DO Dizzy spells (Primary Dx); Bipolar disorder, unspecified (CMS/HCC) ; Chronic kidney disease, stage 3b (HCC) (CMS/[facility]); Complex regional pain syndrome type 1, affecting unspecified site; Disorder of intervertebral disc of lumbar spine; Chronic pain syndrome; Neuropathy; Acute recurrent maxillary sinusitis; Urinary incontinence, unspecified type 05/31/2024 Bamboo flowsheet [facility] [address] [place] [address] Dennis Pepper DO 05/31/2024 Travel 05/26/2024 Patient Outreach [facility] [address] [place] [address] Tati Harrison, ASHA from Last 3 Months Immunizations Immunization Administration Dates Next Due Influenza, Injectable, MDCK, preservative free 1 Influenza, [place] [facility] Kidney, subunit, trivalent, injectable, contains preservative 12/22/2023 Influenza, injectable, quadrivalent 12/28/2020 Influenza, injectable, quadrivalent, preservativ e free 01/06/2023,01/07/2020 Influenza, seasonal, injectable 01/06/2023 Felicia SARS-CoV-2 06/06/2020,06/05/2020 MMR 11/06/2023,10/06/2023 SARS-COV-2 (COVID-19) vaccin e, mRNA, spike protein, LNP, PF, 50 mcg/0.5 mL 01/23/2023 Tdap 11/15/2022 Family History Medical History Relation Name Comments Hypertension Father Gonzales Lung cancer Father Gonzales Peripheral vascular disease Father Gonzales Colon cancer Mother Marita Dementia Mother Marita Diabetes Mother Marita Hyperlipidemia Mother Marita Hypertension Mother Marita Migraines Mother Marita Pulmonary embolism Mother Marita Mental illness Sister 1 No Known Problems Sister 2 Breast cancer Neg Hx Ovarian cancer Neg Hx Relation Name Status Comments Father Gonzales Mother Marita Sister 1 Sister 2 Social History Tobacco Use Types Packs/Day Years Used Date Smoking Tobacco: Never Tobacco Cessation:Counseling Given: Not Answered [...] Sign Reading Time Taken Comments Blood Pressure 120/76 07/19/2024 11:15 AM EDT Pulse 50 05/31/2024 2:13 PM EDT Temperature 36.1 C (96.9 F) 05/31/2024 2:13 PM EDT Respiratory Rate - - Oxygen Saturation 99% 05/31/2024 2:13 PM EDT Inhaled Oxygen Concentration - - Weight 68.5 kg (151 lb) 07/19/2024 11:15 AM EDT Height 157.5 cm (5' 2 ) 12/22/2023 11:24 AM EDT Body Mass Index 27.62 12/22/2023 11:24 AM EDT Plan of Treatment Upcoming Encounters Date Type Department Care Team (Late st Contact Info) Description 08/16/2024 9:30 AM EDT Ancillary Procedure [facility] [address] [place] [address] 08/16/2024 10:45 AM EDT Office Visit [facility] [address] [place] [address] Winston Vallejo MD [address] [place] [address] Health Maintenance Due Date Last Done Comments CT Colonography 1974 FIT-DNA 1974 FIT 1974 FOBT 1974 Sigmoidoscopy 1974 Mammogram 01/02/2020 01/01/2019 Colonoscopy 10/18/2031 10/17/2021, 10/11/2021, 08/08 Colorectal Cancer Screening 10/18/2031 Influenza Vaccine Completed 12/22/2023, , 01/06/2023, Additional history exists Cervical Cancer Screening Discontinued HPV/Cotest Discontinued 07/19/2024 Pap Smear Discontinued Procedures Procedure Name Priority Date/Time Associated Diagnosis Comments IGP, APT HPV,RFX 16/18,45 Routine 07/19/2024 12:00 AM EDT Encounter for gynecological examination without abnormal finding Encounter for screening for cervical cancer COLONOSCOPY Routine 10/11/2021 Other nonspecific abnormal finding of lung field Lower abdominal pain, unspecified BI MAMMOGRAM SCREENING BILATERAL Routine 01/01/2019 12:00 PM EDT Encounter for immunization Essential (primary) hypertension (CMS/HCC) Polyneuropathy, unspecified Encounter for other screening for malignant neoplasm of breast Insomnia, unspecified Panic disorder (episodic paroxysmal anxiety) (CMS/HCC) Headache Bipolar disorder, unspecified (CMS/HCC) Other herpesviral infection from Last 3 Months or Most Recently Relevant to Health Maintenance Results * IGP, APT HPV,RFX 16/18,45 (07/19/2024 12:00 AM EDT) Diagnosis: Comment [facility] Comment: NEGATIVE FOR INTRAEPITHELIAL LESION OR MALIGNANCY. CELLULAR CHANGES ASSOCIATED WITH ATROPHY ARE PRESENT. Specimen Adequacy: Comment [facility] Comment: Satisfactory for evaluation. Endocervical component may not be distinguished in cases of atrophy. Clinician Provided ICD10: Comment [facility] Comment: Z01.419 Z12.4 Performed By: Comment [facility] Comment:Esme Galvez, Cyto logist (ASCP) Cyto Comments . [facility] Note: Comment [facility] Comment: The Pap smear is a screening test designed to aid in the detection of premalignant and malignant conditions of the uterine cervix. It is not a diagnostic procedure and should not be used as the sole means of detecting cervical cancer. Both false-positive and false-negative reports do occur. Test Methodology: CANCELED [facility] Comment: The Thin Prep(R) Manager Government was unable to read this specimen. Therefore a manual review was performed. Result canceled by the ancillary. HPV Aptima Negative Negative [facility] Comment: This nucleic acid amplification test detects fourteen high-risk HPV types (16,18,31,33,35,39,45,51,52,56,58,59,66,68) without differentiation. Vaginal Fluid 07/19/2024 07/20/2024 Narrative [facility] - 07/22/2024 1:07 PM EDT Performed at: - [address] [id number] Electrical System Specialist: Syeda Ardon MD, Phone: [phone] Performed at: - [address] [id number] Electrical System Specialist: Syeda Ardon MD, Phone: [phone] Specimen Comment: No. of containers..01 ThinPrep Vial Winston Vallejo MD LAB BLOOD ORDERABLES Edited Re sult - Final [facility] * Colonoscopy (10/11/2021) Anatomical Region Laterality Modality Endoscopy 10/11/2021 Narrative 10/11/2021 12:00 AM EDT PERFORMED AT [facility] LOCATION:[facility] Procedure Note CONVERSION, GENERIC - 07/25/2022 PERFORMED AT [facility] LOCATION:[facility] Jayesh Holden DO ENDOSCOPY PROCEDURE ORDER BRIAN Final Result * Bilateral screening mammogram (01/01/2019 12:00 PM EDT) Anatomical Region Laterality Modality Breast Bilateral Mammography Narrative 12/31/2018 12:00 AM EDT PERFORMED AT [facility] LOCATION:[id number] Procedure Note CONVERSION, GENERIC / Dennis Pepper, - 09/13/2022 PERFORMED AT [facility] LOCATION:[id number] Dennis Pepper DO IMG BI PROCEDURES Final Resul t from Last 3 Months or Most Recently Relevant to Health Maintenance Insurance [employer] Care Teams House Detective Relationship Specialty Start Date End Date Dennis Pepper DO [address] [facility] [address] [place] [address] PCP - General Family Medicine 08/15/22 Dennis Pepper DO [address] [place] [address] PCP - Medical [place] [employer] 02/07/23 03/09/99
--- OUTSIDE RECORDS SUMMARY | 2024-08-11 08:02 | XMS_ITS | Encounter Summary ---
Author Organization [facility] Address [address] [facility] [place] [address] Care Team Providers Care Call Or Contact Centre Operator Name Role Phone Dennis Pepper DO Primary Care Provider [phone] Dennis Pepper DO Unavailable [phone] Reason for Visit * Reason Comments Med Refill Encounter Details Date Type Department Care Team (Late Contact Info) Description 10/13/[address] [facility] FM [address] [place] [address] Dennis Pepper DO [address] [place] [address] Headache Social History Tobacco Use Types Packs/Day Years [...] 9:30 AM EDT Ancillary Procedure [facility] OB [address] [place] [address] 08/16/2024 10:45 AM EDT Office Visit [facility] [address] [place] [address] Winston Vallejo MD [address] [place] [address] documented as of this encounter Visit Diagnoses Diagnosis Headache documented in this encounter Care Teams Call Or Contact Centre Operator Relationship Specialty Start Date End Date Dennis Pepper DO [address] [place] [address] PCP - General Family Medicine 08/15/22 Dennis Pepper DO [address] [place] [address] PCP - Medical [employer] 02/07/23 03/09/99 documented as of this encounter
--- OUTSIDE RECORDS SUMMARY | 2024-08-11 08:02 | XMS_ITS | Encounter Summary ---
Author Organization [facility] Address [address] [place] [address] Care Team Providers Care Wire Weaver Name Role Phone Dennis Pepper DO Primary Care Provider [phone] Dennis Pepper DO Unavailable [phone] Encounter Details Date Type Department Care Team (Late Contact Info) Description 04/16/2023 Orders Only [facility] [address] [place] [id number] A, Unknown Practice [address] [place], [place] [id number] Social History Tobacco Use Types Packs/Day Years [...] OB [address] [place] [phone] 08/16/2024 10:45 AM EDT Office Visit [facility] [address] [place] [phone] Winston Vallejo MD [address] [place], [place] [id number] documented as of this encounter Procedures Procedure Name Priority Date/Time Associated Diagnosis Comments US LIVER Routine 04/15/2023 8:44 AM EST documented in this encounter Results * US LIVER (04/15/2023 8:44 AM EST) Anatomical Region Laterality Modality Abdomen Ultrasound us Unknown Practice A IMG US PROCEDURES Final Resul t documented in this encounter Visit Diagnoses Not on filedocumented in this encounter Care Teams Wire Weaver Relationship Specialty Start Date End Date Dennis Pepper DO [address] [place] [address] PCP - General Family Medicine 08/15/22 Dennis Pepper DO [address] [place] [address] PCP - Medical [employer] 02/07/23 03/09/99 documented as of this encounter
--- NOTE | 2024-08-11 08:26 | PM.CN ---
Consult Note: HPI Data of Consult Patient: known to practice within the last 3 years Requesting Physician: An Reynoso NP Primary Care Provider: Ryan ORTIZ Consult Narrative Reason for consult: f/u Narrative: Tasneem Camarillo a pleasant 49 year old female presents for evaluation of low back and SIJ pain. longstanding hx of low back and SIJ pain secondary to lumbar spondylosis and sacroiliitis. pt has failed to benefit from > 6 weeks of PT and provider guided HEP, heat, ice, tylenol, NSAIDs. recently underwent left SIJ injection with >50% improvement ongoing. continues to have moderate to severe axial facet mediated low back pain. pt reports low back pain 6/10 throbbing pressure increasing to 10/10 with mopping, sweeping, standing, walking, housework. Pain improved with heat, lying, and sitting down. utilizes lyrica 200mg BID, percocet 5-325mg daily-BID prn for moderate to severe pain, zanaflex, oxaprozin prn without side effects. recently underwent bilateral L4-5 L5-S1 facet medial branch block with moderate relief, preop pain up to 10/10 post op pain 3/10. cc:: CC: An Reynoso NP Review of Systems ROS Status of ROS 10 or more systems reviewed and unremarkable except as noted in history and below Musculoskeletal Reports: back pain PFSH PFSH Social History Smoking status: Never smoker Meds Home Medications and Allergies Home Medications ?Medication ?Instructions ?Recorded ?Confirmed ?Type atenolol 50 mg-chlorthalidone 25 1 tab PO DAILY 08/12/22 08/09/24 History mg tablet [id number]-wzkaiefnouibw-xfup PO .Q4 08/12/22 History lamotrigine 200 mg tablet 200 mg PO DAILY 08/12/22 08/09/24 History ondansetron 4 mg disintegrating 4 mg PO Q6H 08/12/22 08/09/24 History tablet oxaprozin 600 mg tablet 600 mg PO BID 08/12/22 08/09/24 History oxycodone-acetaminophen 5 mg-325 1 tab PO DAILY 08/12/22 08/09/24 History mg tablet tizanidine 4 mg tablet 4 mg PO .QHS 08/12/22 08/09/24 History naloxone 4 mg/actuation nasal 4 mg intranasal Q3M PRN opioid 02/13/23 08/09/24 Rx spray (Narcan) overdose #2 ea oxycodone-acetaminophen 5 mg-325 1 tab PO DAILY PRN pain #30 tabs 02/11/24 Rx mg tablet (Percocet) paroxetine HCl 30 mg tablet 60 mg PO 02/11/24 History pregabalin 200 mg capsule (Lyrica) 200 mg PO Q12H 02/11/24 08/09/24 History oxycodone-acetaminophen 5 mg-325 1 tab PO Q8H PRN pain #30 tabs 05/24/24 08/09/24 Rx mg tablet (Percocet) oxycodone-acetaminophen 5 mg-325 See Rx Instructions .Route 05/24/24 08/09/24 Rx mg tablet (Percocet) .COMPLEX PRN pain #30 tabs Allergies Allergy/AdvReac Type Severity Reaction Status Date / Time metoclopramide (From Reglan) Allergy Intermediate Anxiety Verified 08/09/24 09:18 sulfabenzamide Allergy Intermediate Rash Verified 08/09/24 09:18 sumatriptan (From Imitrex) Allergy Intermediate Anxiety Verified 08/09/24 09:18 amoxicillin (From Augmentin) Allergy Unknown Rash Verified 08/09/24 09:18 clavulanic acid (From Allergy Unknown Rash Verified 08/09/24 09:18 Augmentin) Exam Constitutional Documenting provider has reviewed patient's vital signs: yes Common normals: no apparent distress, oriented x3, healthy appearing, alert and well nourished General appearance: cooperative HENAR Common normals: normocephalic, hearing grossly normal bilaterally and moist oral mucous membranes Head and scalp: normocephalic Eye Common normals: PERRL Pupil: PERRL Neck & C-Spine Common normals: full ROM General: normal visual inspection Chest Common normals: inspection of chest normal Respiratory Common normals: normal respiratory effort, no retractions and no use of accessory muscles Back & Pelvis Lumbar spine/lower back: ROM limited, pain with ROM and lumbar spinal tenderness Lumbar spinal tenderness location: L3, L4 and L5 Other: positive facet loading strength 5/5 in BLE sensation intact BLE Neuro Common normals: oriented x3 Sensorium/orientation: alert Psych Common normals: mental status grossly normal, thought process normal, cooperative, affect normal, speech normal and activity/motor behavior normal Speech: normal speech Thought process: normal thought process Results Additional Findings Additional findings: If on a controlled substance or opioids, I have checked an [place] report on this patient and there are no aberrancies noted in the prescribing history.??If on a controlled substance or opioid a drug screen was completed and reviewed within the last year, and if there has not been a drug screen completed we ordered one today to monitor higher risk, state monitored pain medication use. As part of providing excellent, safe, comprehensive care, the following was completed at our patient's visit: 1. A medication reconciliation and review to ensure accurate knowledge of current/active medications, including asking our patients to inform us about any akdi-afe-bajvqnf medications or herbal remedies/nutritional supplements/alternative remedies. 2. A review to specifically ensure our patients have had annual screening for screening for depression, screening for tobacco use, and screening for unhealthy alcohol use. For concerning screenings had a discussion with the patient, provided patient education, and recommended follow-up with primary care provider when appropriate. If patient noted with a risk of falling, they received education on strength, gait, and balance training to prevent future risk of falling. Portions of this note may have been carried over from the previous visit and updated as appropriate. Please note this office utilizes paper charting in addition to the electronic medical record. A list of current medications, vitals, and PMH is available there as the clinical staff outside of myself do not have access to [employer] charting during the clinic day operations. As part of providing quality comprehensive care the current medications, vitals, and PMH were reviewed in the paper chart. Assessment and Plan Assessment and Plan (1) Lumbar stenosis with neurogenic claudication: (2) Lumbar spondylosis: Assessment and Plan: The patient has had over 3 months of moderate to severe axial low back pain with functional impairment and inadequate response to conservative care including NSAIDS (unless there are contraindication such as concurrent blood thinners), multiple oral or topical pain medications, and home exercise program/physical therapy.? Patient has completed >6 weeks of guided home exercise program and/or formal physical therapy program without relief of their symptoms.? I have reviewed the imaging of the lumbar spine and no red flags were identified.? The Oswestry Disability Index was completed, and the patient scored a 34%.? The patient noted the following:?? moderate to severe pain with standing, walking, lifting, ADLs, sleep, social life (3) Myofascial pain: (4) Chronic prescription opiate use: (5) Sacroiliitis: Plan cancel bilateral L4-5 L5-S1 MBB #2 at this time, will update lumbar MRI without contrast to assess moderate to severe low back pain unresponsive to above therapies consider adjusted levels at L3-4 L4-5 MBB x2 working towards RFA if MRI unremarkable continue current medications, risks vs benefits reviewed continue HEP as tolerated f/u after each injection
== END 2024-08-11 08:00 | disposition home or self-care (01) ==
PROVIDERS: PCP Family Medicine; Visit Provider Nurse Practitioner
DX: M48.062 Spinal stenosis, lumbar region with neurogenic claudication (principal); M47.816 Spondylosis without myelopathy or radiculopathy, lumbar region; M79.18 Myalgia, other site; Z79.891 Long term (current) use of opiate analgesic; M46.1 Sacroiliitis, not elsewhere classified
CPT/HCPCS: G0463

== ENCOUNTER 2024-09-13 13:12 | Outpatient (OUT) | payer OTHER, SELFPAY ==
--- OUTSIDE RECORDS SUMMARY | 2024-08-16 12:52 | XMS_ITS ---
Author Name Auto Generated Organization OHIP Care Team Providers Care Professor Of Theatre Name Role Phone NICO PEPPER Attending Unavailable ROXANA SHAH Attending Unavailable NICO PEPPER Referring Unavailable NICO PEPPER Attending Unavailable LUCY HAMEED Attending Unavailable LUCY HAMEED Attending Unavailable Juancarlos Pepper Primary Care Unavailable Tad Barger Admitting Unavailable Tad Barger Attending Unavailable Yamil Leal Admitting Unavailable Yamil Leal Attending Unavailable Juancarlos Pepper Primary Care Unavailable Eyad TANG, Uriel Yates Attending Unavailable Eyad TANG, Uriel Yates Attending Unavailable RUPA, VADIM Attending Unavailable SKIE, VADIM Referring Unavailable SKIE, VADIM Referring Unavailable SKIE, VADIM Admitting Unavailable SKIE, VADIM Attending Unavailable SKIE, VADIM Attending Unavailable SKIE, VADIM Attending Unavailable SKIE, VADIM Attending Unavailable PROBLEMS DATE TYPE CONDITION / CODE ATTENDING STATUS 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) VADIM CHOWDHURY [facility] 01/07/2024 Admitting Diagnosis Pain, unspecified / R52(ICD-10) MICHELLE [facility] 11/20/2023 Admitting Diagnosis Pain due to internal orthopedic prosthetic devices, implants and grafts, initial encounter / T84.84XA(ICD-10) VADIM CHOWDHURY [facility] 11/05/2023 Admitting Diagnosis Trigger finger, unspecified finger / M65.30(ICD-10) VADIM CHOWDHURY [facility] 11/05/2022 Admitting Diagnosis Pain in right finger(s) / M79.644(ICD-10) NA [facility] PROCEDURES No Procedure Records Found RESULTS 36 Observed: 09/09/2024 10:41 AM Status: COMPLETED Source: [facility] Patient is having new farms emailed to me and I will get it filled out and faxed over CARROL 36 Observed: 09/09/2024 10:25 AM Status: COMPLETED Source: [facility] Patient states she hasn't he solange back if her FMLA paperwork was complete. I dont see anything scanned in. ABSTRACT Observed: 09/09/2024 12:00 AM Status: COMPLETED Source: [facility] [id number] Deanna Camarillo N F Date Provider Department [place] 09/09/2024 80REGAN FLOREZ MP No family history on file 36 Observed: 08/11/2024 11:11 AM Status: COMPLETED Source: [facility] Patient is scheduled for Sep 14 ORDERS ONLY Observed: 08/11/2024 12:00 AM Status: COMPLETED Source: [facility] [id number] Deanna Camarillo N Date [facility] Department [place] 08/11/2024 80Bobby-REGAN MOREL MP No family history on file 36 Observed: 08/10/2024 2:53 PM Status: COMPLETED Source: [facility] Patient returned call. Please call patient to schedule surgery. Patient # [phone] 36 Observed: 08/09/2024 9:14 AM Status: COMPLETED Source: [facility] LVM to call back to schedule surgery 36 Observed: 08/06/2024 11:51 AM Status: COMPLETED Source: [facility] authorization on file fo r OUTPATIENT SX- RT SMALL FINGER DIP FUSION, RT SMALL FINGER TRIGGER FINGER RELEASE Valid 08/05/2024-10/05/2024 TELEPHONE Observed: 08/06/2024 12:00 AM Status: COMPLETED Source: [facility] [id number] Deanna Camarillo N Date Provider Department [place] 08/06/2024 340TRACY MAE MP No family history on file Reason for Visit and Comments: [facility] AUTH [Other] OFFICE VISIT Observed: 07/13/2024 9:10 AM Status: COMPLETED Source: [facility] [id number] Deanna Camarillo N F Date Provider Department [place] 07/13/2024 438-VADIM CHOWDHURY MP ORTHO JOE No family history on file Level of Service:48602 NC OFFICE/OUTPATIENT ESTABLISHED LOW MDM 20 MIN (GC) Reason for Visit and Comments: Follow-up [[id number]] PROGRESS Observed: 07/13/2024 9:10 AM Status: COMPLETED Source: [facility] Attestation signed by Vadim Chowdhury MD at 07/14/2024 7:31 PM GC: I saw this patient. I personally performed the critical/farrell portions that determines the level of service. I was directly involved in the management and treatment plan of the patient. I reviewed resident's note and agree with the documentation Orthopedic Surgery 07/13/24 Patient presents today for follow-up regarding her right small finger PIP fusion. Patient originally had injury on 10/31/2021 for which she had a stay and a dorsal PIP dislocation with associated proximal phalanx fracture. Since this time patient had a volar plate release on 05/27/2022 for flexion contraction, and eventually underwent a PIP fusion on 11/25/2022. Patient had hardware removal on 01/07/2024. Patient states that since this time she is not had struggling motion of her right small DIP joint. She has been doing exercises at home but this has not helped. She cannot actively extend it all the way straight. She states that it gets caught on many things and is affecting her life. She states she has hard time typing at work. We discussed options today and the patient like to proceed with DIP fusion. Also the patient is having tenderness over the right small finger A1 hollis. We will plan to do a trigger finger release at this point in time when we do the DIP fusion. Patient has a history of a right ring finger trigger release. 04/20/24 01/07/2024 Small Finger Hardware Removal - Right and Ring Finger Trigger Release - Right Deanna Camarillo comes in for a post-operative visit [...] erythema, drainage or signs of infection. Tenderness to the right small finger DIP joint. Also tenderness to palpation of the right small finger A1 hollis. No locking or catching however. Sensation is present to light touch. Range of motion is significantly limited. She has a fusion of the PIP joint at about 45 degrees. She has full MP range of motion. She has a 45 degree extension lag at the DIP joint with passive motion going to near full extension.. Assessment: Deanna Camarillo is a 49 y.o. year old female with Limited motion in her right small finger DIP joint after having a PIP joint fusion as well as tenderness over the right small finger A1 hollis Plan: - We will plan to do a right small finger DIP fusion and right small finger trigger finger release Submit C9 authorization for right small finger DIP fusion Keep same restrictions until Next visit I believe that the diagnosis of DIP loss of motion and pain is a direct result from the work related injury. We will submit an additional allowance to be added to the claim.Submit C9 authorization for right small finger trigger finger release Keep same restrictions until Next visit I believe that the diagnosis of right small trigger finger is a direct result from the work related injury. We will submit an additional allowance to be added to the claim. CT HEAD/BRAIN WO CON Observed: 5 6:21 PM Status: COMPLETED Source: [facility] Main [address] [address] [address] Scan Report Signed Patient: Deanna Camarillo MR#: [id number] 477 : 1975 Acct:[id number] Age/Sex: 49 / F ADM Date: 06/12/24 Loc: ER Room: Type: [facility] ER Attending Dr: Copies to: Yamil Leal MD Ordering Provider: Yamil Leal MD Date of Service: 06/12/24 CT/CT head/brain wo con: lightheadedness/dizziness CT BRAIN WITHOUT CONTRAST: CLINICAL HISTORY: Lightheadedness, dizziness, headache, nausea COMPARISON: 05/25/2024 TECHNIQUE: Contiguous axial unenhanced images were obtained through the brain. This CT exam was performed using one or more following dose reduction techniques: Automated exposure control, adjustment of the mA and/or kV according to patient size, or use of iterative reconstruction technique. FINDINGS: There is no evidence of midline shift, intra or extra-axial fluid collection, hemorrhage or CT evidence of large vascular distribution stroke. There are intracranial vascular calcifications. Visualized intraorbital contents appear unremarkable. Visualized paranasal sinuses are clear. The surrounding soft tissues are normal. CT/CT head/brain wo con IMPRESSION: NO ACUTE INTRACRANIAL ABNORMALITY. Impression dictated by: Nikolay Zuniga M.D.06/12/2024 6:24 PM Dictation Location: [place] [address] Transcribed By: [facility] 06/12/241823 Dictated By: Nikolay Zuniga MD 06/12/241820 Signed By: <Electronically signed by Nikolay Zuniga MD in OV> 06/12/241823 COMPLETE BLOOD COUNT AUTO DIFF Collected: 06/12/2024 6:10 PM Status: F Source: [facility] TYPE CODE TESTS RESULT OUT OF RANGE REFERENCE UNITS LAB WBC White Blood Count 6.5 Normal 3.8-11.6 10*3/uL LAB UNWBC Uncorrected WBC 6.5 Normal 3.8-11.6 10*3/uL LAB RBC Red Blood Count 4.23 Normal 3.60-5.00 10*6/u L LAB HGB Hemoglobin 12.8 Normal 11.8-15.4 g/dL LAB HCT Hematocrit 37.9 Normal 34.0-46.4 % LAB MCV Mean Corpuscular Volume 89.7 Normal 80-100 fL LAB MCH Mean Corpuscular Hemoglobin 30.3 Normal 24.7-34.3 pg LAB MCHC Mean Corpuscular HGB Conc 33.8 Normal 32.0-35.0 g/dL LAB RDW Red Cell Distribution Width 13.9 Normal 11.9-15.3 % LAB PLT Platelet Count 274 Normal 150-450 10*3/uL LAB MPV Mean Platelet Volume 8.7 Normal 6.3-10.7 fL LAB MDW Monocyte Distribution Width 19.33 Normal 0.00-20.00 % LAB NE% Neutrophils % (Auto) 50.3 . % LAB LY% Lymphocytes % (Auto) 36.7 . % LAB MO% Monocytes % (Auto) 9.4 . % LAB EO% Eosinophils % (Auto) 2.1 . % LAB BA% Basophils % (Auto) 1.5 . % LAB NRBC% NRBC% 0.1 Normal 0-0.5 /100{WBC } LAB NE# Neutrophils # (Auto) 3.3 Normal 1.8-7.7 10*3/uL LAB LY# Lymphocytes # (Auto) 2.4 Normal 1.00-4.8 10*3/uL LAB MO# Monocytes # (Auto) 0.6 Normal 0.0-0.8 10*3/uL LAB EO# Eosinophils # (Auto) 0.1 Normal 0.0-0.45 10*3/uL LAB BA# Basophils # (Auto) 0.1 Normal 0.0-0.2 10*3/uL Performed By: #### CMP, ESR, CBC #### [address] ERYTHROCYTE SEDIMENTATION RATE Collected: 06/12/2024 6:10 PM Status: F Source: [facility] TYPE CODE TESTS RESULT OUT OF RANGE REFERENCE UNITS LAB ESR Erythrocyte Sedimentation Rate 17 Normal 0-29 Result Comment: PERFORMED BY : [place] [address] PATHOLOGIST [employer] NAHOMY BRADLEY M.D. Performed By: #### CMP, ESR, CBC #### [facility] [address] [place] [address] COMPREHENSIVE METABOLIC PANEL Collected: 06/12/2024 6 :10 PM Status: F Source: [facility] TYPE CODE TESTS RESULT OUT OF RANGE REFERENCE UNITS LAB GLU Glucose 93 Normal 70-100 mg/dL Result Comment: Random Gluco se Reference Range is dependent on time and content of last meal. Glucose of more than 200 mg/dL in a nonstressed, ambulatory subject supports the diagnosis of Diabetes Mellitus. ADA recommended reference range LAB BUN Blood Urea Nitrogen 29 High 7-25 mg/d L LAB CREATT Creatinine 1.27 High 0.60-1.20 mg/dL LAB GFReNR Estimated GFR 51.520 mL/Min LAB NA Sodium 139 Normal 136-145 mmol/L LAB K Potassium 3.5 Normal 3.5-5.1 mmol/L LAB CL Chloride 105 Normal 98-107 mmol/L LAB CO2 Carbon Dioxide 27.4 Normal 21.0-31.0 mmol/L LAB GAP Anion Gap 10.1 Normal 6.0-15.0 meq/L LAB CA Calcium 8.8 Normal 8.6-10.3 mg/dL LAB TP Total Protein 7.2 Normal 6.4-8.9 g/dL LAB ALB Albumin Level 4.2 Normal 3.5-5.7 g/dL LAB GLOB Globulin 3.0 g/dL LAB AGRATIO Albumin/Globulin Ratio 1.4 LAB BILIT Bilirubin,Total 0.7 Normal 0.3-1.0 mg/dL LAB AST Aspartate Amino Transferase 22 Normal 13-39 U/L LAB ALT Alanine Aminotransferase 13 Normal 7-52 U/L LAB ALP Alkaline Phosphatase 67 Normal 34-104 U/L LAB CRCLPHA Creatinine Clr C alc Pharmacy 47.16 Result Comment: PERFORMED BY : [place] [address] PATHOLOGIST [employer] SERVER NAHOMY BRADLEY M.D. Performed By: #### CMP, ESR, CBC #### [facility] [address] [place] [address] ECG 12 LEAD ECG Observed: 06/12/2024 5:11 PM Status: COMPLETED Source: [facility] [place] [address] Electrocardiograph Report Signed Patient: Deanna Camarillo MR#: [id number] 477 : 1975 Acct:[id number] Age/Sex: 49 / F ADM Date: 06/12/24 Loc: ER Room: Type: [facility] ER Attending Dr: Ordering Provider: Yamil Leal MD Date of Service: 06/12/2408/01/1732 ECG/ECG 12 lead ECG: Dizziness Copies to: Test Reason : Blood Pressure : 156/81 mmHG Vent. Rate : 57 BPM Atrial Rate : 57 BPM P-R Int : 138 ms QRS Dur : 88 ms QT Int : 444 ms P-R-T Axes : 57 32 39 degrees QTcB Int : 432 ms Sinus bradycardia Otherwise normal ECG When compared with ECG of 25-May-2024 14:14, No significant change was found Confirmed by YAMIL LEAL MD ([id number]) on 06/14/2024 1:30:37 AM Referred By: Electronically Signed By: YAMIL LEAL MD Transcribed By: MUS Signed By Yamil Leal MD 06/14/24 0130 36 Observed: 06/11/2024 3:07 PM Status: COMPLETED Source: [facility] Patient called and Work Comp nurse instructed her to call and give update. She needs to let Dr. Chowdhury know the pinky is discolored purplish and the first joint is swollen. Started discoloration in April. Finger is cold to the touch. Pain 4/10 steady. 0 numbness but is constant tingling. Patient is requesting a call back to advise. Patient # [phone] COVID-19 / FLU A/B / RSV PCR Observed: 0 05/25/2024 6:23 PM Status: F Source: [facility] COVID-19 Cepheid Result Negative for SARS-CoV-2 RNA by RT-PCR Flu A Cepheid Result Negative for Flu A RNA by RT-PCR Flu B Cepheid Result Negative for Flu B RNA by RT-PCR RSV Cepheid Result Negative for RSV RNA by RT-PCR COVID19 Blank Space Reference: Negative COVID19 Blank Space Cepheid Disclaimer The Cepheid Xpert Xpress CoV-2/Flu/RSV Plus has Cepheid Disclaimer not been FDA cleared or approved; this test has Cepheid Disclaimer been authorized by FDA under an EUA for use by Cepheid Disclaimer authorized laboratories; this test has been Cepheid Disclaimer authorized only for the simultaneous qualitative Cepheid Disclaimer detection and differentiation of nucleic acids from Cepheid Disclaimer SARS-CoV-2, influenza A, influenza B, and Cepheid Disclaimer respiratory syncytial virus (RSV), and not for any Cepheid Disclaimer other viruses or pathogens; and this test is only Cepheid Disclaimer authorized for the duration of the declaration that Cepheid Disclaimer circumstances exist justifying the authorization of Cepheid Disclaimer emergency use of in vitro diagnostic tests for Cepheid Disclaimer detection and/or diagnosis of COVID-19 under Cepheid Disclaimer Section 564(b)(1) of the Act, 21 U.S.C. 360bbb- Cepheid Disclaimer 3(b)(1), unless the authorization is terminated or Cepheid Disclaimer revoked sooner. PERFORMED BY: [place] [address] PATHOLOGIST [employer] SERVER NAHOMY BRADLEY M.D. Performed By: #### CEPHEID N EG, COVID19 FLU RSV #### [address] CEPHEID COVID PCR NEGATIVE Collected: 0 05/25/2024 6:23 PM Status: F Source: [facility] TYPE CODE TESTS RESULT OUT OF RANGE REFERENCE UNITS LAB CEPHEID NEG Cepheid COVID PCR Negative Negative Negative Result Comment: This is a du plicate Cepheid Xpert Xpress CoV-2/Flu/RSV Plus RNA by RT-PCR result to be used for statistical tracking purpose only. PERFORMED BY: [place] [id number] PATHOLOGIST [employer] SERVER NAHOMY BRADLEY M.D. Performed By: #### CEPHEID N EG, COVID19 FLU RSV #### [place] [id number] [facility] COMPLETE BLOOD COUNT AUTO DIFF Collected: 05/25/2024 4:45 PM Status: F Source: [facility] TYPE CODE TESTS RESULT OUT OF RANGE REFERENCE UNITS LAB WBC White Blood Count 5.8 Normal 3.8-11.6 10*3/uL LAB UNWBC Uncorrected WBC 5.8 Normal 3.8-11.6 10*3/uL LAB RBC Red Blood Count 3.72 Normal 3.60-5.00 10*6/u L LAB HGB Hemoglobin 11.1 Low 11.8-15.4 g/dL LAB HCT Hematocrit 33.5 Low 34.0-46.4 % LAB MCV Mean Corpuscular Volume 90.3 Normal 80-100 fL LAB MCH Mean Corpuscular Hemoglobin 29.9 Normal 24.7-34.3 pg LAB MCHC Mean Corpuscular HGB Conc 33.1 Normal 32.0-35.0 g/dL LAB RDW Red Cell Distribution Width 14.0 Normal 11.9-15.3 % LAB PLT Platelet Count 247 Normal 150-450 10*3/uL LAB MPV Mean Platelet Volume 8.5 Normal 6.3-10.7 fL LAB MDW Monocyte Distribution Width 18.88 Normal 0.00-20.00 % LAB NE% Neutrophils % (Auto) 44.2 . % LAB LY% Lymphocytes % (Auto) 45.5 . % LAB MO% Monocytes % (Auto) 7.2 . % LAB EO% Eosinophils % (Auto) 2.8 . % LAB BA% Basophils % (Auto) 0.3 . % LAB NRBC% NRBC% 0.2 Normal 0-0.5 /100{WBC } LAB NE# Neutrophils # (Auto) 2.6 Normal 1.8-7.7 10*3/uL LAB LY# Lymphocytes # (Auto) 2.7 Normal 1.00-4.8 10*3/uL LAB MO# Monocytes # (Auto) 0.4 Normal 0.0-0.8 10*3/uL LAB EO# Eosinophils # (Auto) 0.2 Normal 0.0-0.45 10*3/uL LAB BA# Basophils # (Auto) 0.0 Normal 0.0-0.2 10*3/uL Result Comment: PERFORMED BY : [facility] [place] [address] PATHOLOGIST [employer] SERVER NAHOMY BRADLEY M.D. Performed By: #### CK, BMP, PT, HS TROP, CBC, PTT #### [address] BASIC METABOLIC PANEL Collected: 05/25/2024 4:45 PM Status: F Source: [facility] TYPE CODE TESTS RESULT OUT OF RANGE REFERENCE UNITS LAB GLU Glucose 89 Normal 70-100 mg/dL Result Comment: Random Gluco se Reference Range is dependent on time and content of last meal. Glucose of more than 200 mg/dL in a nonstressed, ambulatory subject supports the diagnosis of Diabetes Mellitus. ADA recommended reference range LAB BUN Blood Urea Nitrogen 28 High 7-25 mg/dL LAB CREATT Creatinine 1.53 High 0.60-1.20 mg/dL LAB GFReNR Estimated GFR 41.201 mL/Min LAB NA Sodium 139 Normal 136-145 mmol/L LAB K Potassium 3.9 Normal 3.5-5.1 mmol/L LAB CL Chloride 105 Normal 98-107 mmol/L LAB CO2 Carbon Dioxide 28.6 Normal 21.0-31.0 mmol/L LAB GAP Anion Gap 9.3 Normal 6.0-15.0 meq/L LAB CA Calcium 8.4 Low 8.6-10.3 mg/dL LAB CRCLPHA Creatinine Clr Calc Pharmacy 40.01 Result Comment: PERFORMED BY : [place] [address] PATHOLOGIST [employer] SERVER NAHOMY BRADLEY M.D. Performed By: #### CK, BMP, PT, HS TROP, CBC, PTT #### [place] [id number] [facility] CREATINE KINASE Collected: 05/25/2024 4:45 PM Status : F Source: [facility] TYPE CODE TESTS RESULT OUT OF RANGE REFERENCE UNITS LAB CK Creatine Kinase 178 Normal 30-223 U/L Performed By: #### CK, BMP, PT, HS TROP, CBC, PTT #### [place] [id number] [facility] TROPONIN I HIGH SENSITIVITY Collected: 05/25/2024 4:4 5 PM Status: F Source: [facility] TYPE CODE TESTS RESULT OUT OF RANGE REFERENCE UNITS LAB HS TROP Troponin I High Sensitivity 4 Normal 0-15 Result Comment: The Troponin units of report have been changed to meet the Chest Pain Accreditation requirement, element EC5.M1l2. Troponin units are changed from pg/ml to ng/L. Also, the decimal is removed and results are in whole numbers. PERFORMED BY: [place] [id number] PATHOLOGIST [employer] SERVER NAHOMY BRADLEY M.D. Performed By: #### CK, BMP, PT, HS TROP, CBC, PTT #### [facility] [address] [place] [id number] [facility] PROTHROMBIN TIME INR Collected: 05/25/2024 4:45 PM S tatus: F Source: [facility] TYPE CODE TESTS RESULT OUT OF RANGE REFERENCE UNITS LAB R PT Prothrombin Time 9.7 Normal 9.0-12.9 s Result Comment: A hematocrit value greater than 55% may lead to inaccurate results in coagulation testing. Patients having hematocrit values >55% require a special collection tube for coagulation studies. Please contact the laboratory at [phone] for redraw instructions. LAB INR INR 0.8 Result Comment: INR Therapeu tic Range A) Pre- and Peroperative OAT started [...] valves: 3 - 4.5 Performed By: #### CK, BMP, PT, HS TROP, CBC, PTT #### [place] [id number] [facility] PARTIAL THROMBOPLASTIN TIME Collected: 05/25/2024 4:4 5 PM Status: F Source: [facility] TYPE CODE TESTS RESULT OUT OF RANGE REFERENCE UNITS LAB PTT Partial Thromboplastin Time 27.5 Normal 25.1-36.5 s Result Comment: A hematocrit value greater than 55% may lead to inaccurate results in coagulation testing. Patients having hematocrit values >55% require a special collection tube for coagulation studies. Please contact the laboratory at [phone] for redraw instructions. PERFORMED BY: [place] [id number] PATHOLOGIST [employer] SERVER NAHOMY BRADLEY M.D. Performed By: #### CK, BMP, PT, HS TROP, CBC, PTT #### [place] [id number] [facility] URINALYSIS Collected: 05/25/2024 3:40 PM Status: F Source: [facility] Order Comment: Name Collecti on Type:: Clean-Voided Midstream TYPE CODE TESTS RESULT OUT OF RANGE REFERENCE UNITS LAB UCOL Color,Urine Light-Yellow Yellow LAB UAPP Appearance,Uri ne Clear Clear LAB USG Specificy [place],Urine 1.016 Normal 1.001-1.030 LAB UPH pH,Urine 5.5 Normal 5.0-9.0 LAB ULE Leukocyte Esterase,Urine Negative Negative LAB UNIT Nitrite,Urine Negative Negative LAB UPRO Protein,Urine Negative Negative LAB UGL Glucose,Urine (UA) Normal Normal LAB UKET Ketones,Urine Negative Negative LAB UURO Urobilinogen,U rine Normal Normal LAB UBIL Bilirubin,Urin e Negative Negative LAB UBLD Occult Blood,Urine Negative Negative Result Comment: PERFORMED BY : [place] [address] PATHOLOGIST [employer] SERVER NAHOMY BRADLEY M.D. Performed By: #### UA #### [place] [id number] [facility] CT HEAD/BRAIN WO CON Observed: 2:41 PM Status: COMPLETED Source: [facility] [place] [address] CT Scan Report Signed Patient: Deanna Camarillo MR#: [id number] 477 : 1975 Acct:[id number] Age/Sex: 49 / F ADM Date: 05/25/24 Loc: ER Room: Type: PRE ER Attending Dr: Copies to: ROBINA SELLERS Ordering Provider: ROBINA SELLESR Date of Service: 05/25/24 CT/CT head/brain wo con: Blurry vision CT BRAIN WITHOUT CONTRAST: CLINICAL HISTORY: Blurry vision. Bilateral eye pain. COMPARISON: None TECHNIQUE: Contiguous axial unenhanced images were obtained through the brain. This CT exam was performed using one or more following dose reduction techniques: Automated exposure control, adjustment of the mA and/or kV according to patient size, or use of iterative reconstruction technique. FINDINGS: There is no evidence of midline shift, intra or extra-axial fluid collection, hemorrhage or CT evidence of stroke. Posterior fossa appears unremarkable. Visualized intraorbital contents demonstrate no acute findings. Visualized paranasal sinuses are clear. The surrounding soft tissues are normal. CT/CT head/brain wo con IMPRESSION: NO ACUTE INTRACRANIAL ABNORMALITY. Impression dictated by: Roel Curtis Jr., D.O.05/25/2024 2:41 PM Dictation Location: [facility]IO-PC-22 Transcribed By: YESY 05/25/24 144 Dictated By: Roel Curtis Jr, DO 05/25/24 144 Signed By: <Electronically signed by Roel Curtis Jr, DO in OV> 05/25/24 1441 XR CHEST 1V PORTABLE Observed: 2:39 PM Status: COMPLETED Source: [place] [address] XRay Report Signed Patient: Deanna Camarillo MR#: [id number] 477 : 1975 Acct:[id number] Age/Sex: 49 / F ADM Date: 05/25/24 Loc: ER Room: Type: PRE ER Attending Dr: Copies to: ROBINA SELLERS Ordering Provider: ROBINA SELLERS Date of Service: 05/25/24 XR/XR chest 1V portable: Neuro Symptoms/Deficit SINGLE VIEW CHEST CLINICAL HISTORY: Blurred vision. COMPARISON: Chest 03/24/2023 FINDINGS: Heart normal size. Lungs are clear. No free air. XR/XR chest 1V portable IMPRESSION: NO ACUTE FINDINGS Impression dictated by: Long Avitia Jr.OJerman05/25/2024 2:39 PM Dictation Location: [facility]-PC-22 Transcribed By: YESY 05/25/24 1439 Dictated By: Roel Curtis Jr, DO 05/25/24 143 Signed By: <Electronically signed by Roel Curtis Jr, DO in OV> 05/25/24 1439 ECG 12 LEAD ECG Observed: 05/25/2024 2:14 PM Status: COMPLETED Source: [facility] Main [address] [address] Electrocardiograph Report Signed Patient: Deanna Camarillo MR#: [id number] 477 : 1975 Acct:[id number] Age/Sex: 49 / F ADM Date: 05/25/24 Loc: ER Room: Type: [facility] ER Attending Dr: Ordering Provider: Tad Barger DO Date of Service: 05/25/24 ECG/ECG 12 lead ECG: Neuro Symptoms/Deficit Copies to: Test Reason : Blood Pressure : 127/66 mmHG Vent. Rate : 52 BPM Atrial Rate : 52 BPM P-R Int : 142 ms QRS Dur : 90 ms QT Int : 478 ms P-R-T Axes : 51 17 29 degrees QTcB Int : 444 ms Sinus bradycardia Otherwise normal ECG When compared with ECG of 24-Mar-2023 12:30, No significant change was found Confirmed by Tad Barger DO ([id number]) on 05/25/2024 7:17:06 PM Referred By: Electronically Signed By: Tad Barger DO Transcribed By: MUS Signed By Tad Barger DO 1916 PROGRESS Observed: 04/20/2024 1:30 PM Status: COMPLETED Source: [facility] Orthopedic Surgery 01/07/2024 Small Finger Hardware Removal - Right and Ring Finger Trigger Release - Right Deanna Camarillo comes in for a post-operative visit [...] motion going to near full extension.. Assessment: Deanna Camarillo is a 49 y.o. year old [...] she has any troubles in the meantime. OFFICE VISIT Observed: 04/20/2024 1:30 PM Status: COMPLETED Source: [facility] [id number] Deanna Camarillo Rafi Provider Department [place] 04/20/2024 VADIM KISER MP ORTHO MPORTSIDDHARTH No family history on file Level of Service:54700 NC OFFICE/OUTPATIENT ESTABLISHED SF MDM 10 MIN Reason for Visit and Comments: Pain [136] Post-op [483] 36 Observed: 02/11/2024 11:39 AM Status: COMPLETED Source: [facility] Attempted to call patient an d lvm to call back. 36 Observed: 02/09/2024 11:50 AM Status: COMPLETED Source: [facility] Attempted to call patient, tiana sherri kept ringing, no VM 36 Observed: 02/04/2024 1:29 PM Status: COMPLETED Source: [facility] Pt calling non incisional pa in and swelling and wanted to speak with Dr Nation nurse. TELEPHONE Observed: 02/04/2024 12:00 AM Status: COMPLETED Source: [facility] [id number] Deanna Camarillo Rafi Date Provider Department Center 02/04/2024 MAYA FERMIN MP ORTHO MPORTHO No family history on file OFFICE VISIT Observed: 01/14/2024 1:20 PM Status: COMPLETED Source: [facility] [id number] Sejal Camarilloher Mckee Date Provider Department Center 01/14/2024 VADIM KISER MP ORTHO MPORTHO No family history on file Level of Service:36495 NC POSTOP FOLLOW UP VISIT RELATED TO ORIGINAL PX Reason for Visit and Comments: Post-op [483] Pain [136] PROGRESS Observed: 01/14/2024 1:20 PM Status: COMPLETED Source: [facility] Orthopedic Surgery 01/07/2024 Small Finger Hardware Removal - Right and Ring Finger Trigger Release - Right Deanna Camarillo comes in for a post-operative visit [...] motion is appropriate for this time. Assessment: Deanna Camarillo is a 48 y.o. year old [...] her back in the clinic 3 months. ANES Observed: 01/07/2024 11:53 AM Status: COMPLETED Source: [facility] Patient: Deanna Camarillo Procedure Summary Date: 01/07/24 Room / Location: [address] OR Anesthesia Start: 1023 Anesthesia Stop: 1112 Procedures: Small Finger Hardware Removal (Right: Little [...] per anesthesia protocol. No notable events documented. ANES Observed: 01/07/2024 11:18 AM Status: COMPLETED Source: [facility] Patient: Deanna Camarillo Procedure Information Anesthesia Start Date/Time: 01/07/24 1023 Procedures: Small Finger Hardware Removal (Right: Little Finger) Ring Finger Trigger Release (Right: Ring Finger) - C-Arm, MEDARTIS PLATE AND SCREWS IN Location: [address] OR Surgeons: Vadim Chowdhury MD Relevant [...] with CAA and resident. Additional Equipment Requests [id number] Observed: 01/07/2024 11:11 AM Status: COMPLETED Source: [facility] Patient: Deanna Camarillo Procedure Summary Date: 01/07/24 Room / Location: [address] OR Anesthesia Start: 1022 Anesthesia Stop: Procedures: Small Finger Hardware Removal (Right: Little Finger) Ring Finger Trigger Release (Right: Ring Finger) Diagnosis: Painful orthopaedic hardware (CMS/HCC) (Painful orthopaedic hardware (CMS/HCC) [T84.84XA]) Surgeons: Vadim Chowdhury MD Responsible Provider: Franklin Nugent MD Anesthesia Type: regional ASA Status: Not recorded Anesthesia Post Transport Note Transport to: [facility] PACU O2 Route: nasal cannula Oxygen Flow (L/min): 3 Patient Monitor: direct observation Transport: uneventful Patient condition is: stable OPNOTE Observed: 01/07/2024 10:24 AM Status: COMPLETED Source: [facility] Operative Note Patient: Deanna Camarillo Date of Surgery: 01/07/2024 : 1975 Pre-operative Diagnosis: 1. Retained hardware PIP joint right small finger, 2. Trigger digit right ring finger Post-operative Diagnosis: same Operation: 1. Removal of retained hardware right small finger, 2. Trigger digit release right ring finger ([id number]) Surgeon: Vadim Chowdhury MD Senior Front End Web Developer: Jerome Jesus MD Staff: Towing Pilot: Roel Paez RN; Bryanna Esparza RN Scrub Person: Josephine Mckinley CST [place] Towing Pilot: Roel Paez RN Anesthesia Type: Regional Indications: [...] saline solution. The extensor is closed with hniouj-pk-djkhr sutures of 4-0 Vicryl. The skin is [...] Disposition: PACU Condition: Stable Vadim Chowdhury MD PROCEDURE Observed: 01/07/2024 10:23 AM Status: COMPLETED Source: [facility] Peripheral Block Patient location during procedure: pre-op Start time: 01/07/2024 10:08 AM End time: 01/07/2024 10:23 AM Reason for block: primary anesthetic Staffing Performed: resident/POWDER ROOM ATTENDANT/CAA Anesthesiologist: Nathaniel Bhatia MD Resident/POWDER ROOM ATTENDANT: José Vee MD Preanesthetic Checklist Completed: patient [...] rate change: no Slow fractionated injection: yes HP Observed: 01/07/2024 10:09 AM Status: COMPLETED Source: [facility] History Of Present Illness Deanna Camarillo is a 48 y.o. female presenting [...] tablet by mouth in the morning. 01/06/2024 gvgyuwtamo-tmeiicqdaulqw-uexy 50-325-40 mg tablet Take 1 tablet by [...] hardware removal, ring finger trigger digit release. NURSNOTE Observed: 01/07/2024 10:07 AM Status: COMPLETED Source: [facility] Dr chowdhury notified no ATB orde red. POCT GLUCOSE METER UNSOLICIT ED RESULTS Collected: 01/07/2024 9:44 AM Status: UNK Source: [facility] Order Comment: Waived Testin g in the ED is performed under the ED CLIA certificate #[id number]. TYPE CODE TESTS RESULT OUT OF RANGE REFERENCE UNITS LAB 885 POCT GLUCOSE 89 70-105 mg/dL Result Comment: david Performed By: #### [id number] #### [facility] ([facility]) [address] [place] [address] 36 Observed: 11/21/2023 11:44 AM Status: COMPLETED Source: [facility] Called for extension date on C9 for surgery. 36 Observed: 11/20/2023 9:11 AM Status: COMPLETED Source: [facility] New letter was made and is tanner ayala to be sent to patient 36 Observed: 11/20/2023 8:22 AM Status: COMPLETED Source: [facility] Patient called back and woul d like you to call her back. She wants a letter that states she can go back to work the following Friday after surgery. Please call patient [phone] 36 Observed: 11/20/2023 8:17 AM Status: COMPLETED Source: [facility] Spoke with patient and infor med her that I booked for the and the letter was sent to her via My Chart, she informed me that I can mail it and then the phone hung up. ORDERS ONLY Observed: 11/20/2023 12:00 AM Status: COMPLETED Source: [facility] [id number] Deanna Camarillo F Date Provider Department Center 11/20/2023 803-ADRIEL FAUSTOFLAVIO FRENCH ORTHO [facility] No family history on file 36 Observed: 11/19/2023 4:29 PM Status: COMPLETED Source: [facility] Patient called to confirm da te of 01/06. She would like to know if she needs to come back to the office for an appointment before surgery? Is there any testing that needs completed before surgery? Please call patient [phone]. If unable to get through to her, she is requesting that you call her Pablo [phone] due to her not having good service at work. Patient is also requesting a letter to be wrote with attentive surgery date and the time time off work for afterward so she can prepare her work. 36 Observed: 11/19/2023 9:22 AM Status: COMPLETED Source: [facility] Spoke with patient. Informed patient of date of surgery. Patient agreeable to this date for surgery. 36 Observed: 11/19/2023 9:18 AM Status: COMPLETED Source: [facility] Spoke with patient, picked a date of 01/07/2024, phone got disconnected and I left a detailed message stating the surgery date again and said if that did not work please call back Please get an extension for this, Dr. Chowdhury does not have any open time before 01/06 36 Observed: 11/18/2023 11:58 AM Status: COMPLETED Source: [facility] Attempted ot call patient to schedule surgery. Lvm to call me back 36 Observed: 11/18/2023 8:47 AM Status: COMPLETED Source: [facility] authorization on file fo r SURGERY - RIGHT SMALL FINGER HARDWARE REMOVAL AND RIGHT RING FINGER TRIGGER RELEASE Valid 11/14/23-12/12/23 Please make sure all orders are in the chart and call patient to schedule 36 Observed: 11/17/2023 3:47 PM Status: COMPLETED Source: [facility] Patient talked with [facility] and surgery is approved and would like call back to schedule TELEPHONE Observed: 11/17/2023 12:00 AM Status: COMPLETED Source: [facility] [id number] Deanna Camarillo F Date Provider Department Center 11/17/2023 [id number] PENA MP ORTHO MPORTHO No family history on file Reason for Visit and Comments: [facility] APPROVED [Other] 36 Observed: 11/11/2023 10:13 AM Status: COMPLETED Source: [facility] Sent to AL PROGRESS Observed: 11/05/2023 1:30 PM Status: COMPLETED Source: [facility] Orthopedic Surgery Subjective Chief complaint: Chief Complaint Patient presents with Right Hand - Pain Deanna Camarillo is a 48 y.o. year old female presenting for evaluation of a right small finger PIP joint fusion. Deanna is doing fairly well. She is hampered [...] up her forearm. She recently saw occupational Yun[facility] which had her fitted for a hand splint. She reports wearing this splint regularly and it helps control her symptoms. Previous Treatments: PIP fusion right small finger (11/25/22) Patient History Past Surgical History: Procedure Laterality Date APPENDECTOMY CHOLECYSTECTOMY HERNIA REPAIR HYSTERECTOMY Past Medical History: Diagnosis Date Anxiety Back pain Bipolar 1 disorder ([facility]/HCC) CRPS (complex regional pain syndrome type I) [...] is stable without any interval changes. Assessment/Plan Deanna Camarillo is a 48 y.o. year old female with Contracture of the small finger joint, right, and a trigger digit of the right ring finger. PLAN: - C9 for right little finger plate removal - C9 for right ring finger trigger finger release surgery - Consent signed today, will call for surgery scheduling after approval Mohit Trammell, MS4 [facility] I was physically present with the [...] they are approved. Consent was obtained today OFFICE VISIT Observed: 11/05/2023 1:30 PM Status: COMPLETED Source: [facility] [id number] Deanna Camarillo Rafi Provider Department [place] 11/05/2023 438-VADIM CHOWDHURY MP ORTHO MPORTHO No family history on file Level of Service:76550 NC OFFICE/OUTPATIENT ESTABLISHED LOW MDM 20 MIN Reason for Visit and Comments: Pain [136] PROGRESS Observed: 10/31/2023 2:37 PM Status: COMP LETED Source: [facility] rig ORDERS ONLY Observed: 10/31/2023 12:00 AM Status: COMPLETED Source: [facility] [id number] Deanna Camarillo Rafi Provider Department [place] 10/31/2023 803-REGAN MOREL MP ORTHO MPORTHO No family history on file ALLERGIES DATE TYPE / CODE NAME / CODE REACTION SEVERITY SOURCE 07/13/2024 DRUG INGREDI/419 574121([facility]) PROCHLORPERAZINE Other [facility] 06/12/2024 Drug Allergy/416 923919(SNOM ED CT) Sulfa (Sulfonamide Antibiotics)/I063333490 (RXNORM) Unknown Reaction Unknown [facility] 06/12/2024 Drug Allergy/416 234731(SNOM ED CT) sulfur/Y070373667(RXNOR M) not sure, she was a kid Unknown [facility] 06/12/2024 Drug Allergy/416 231918(SNOM ED CT) sulfacetamide/Q36450742 0(RXNORM) not sure, she was a kid Unknown [facility] 05/20/2022 DRUG INGREDI/419 019446(SNOM ED CT) METOCLOPRAMIDE HCL Anxiety [facility] 11/22/2021 Drug Class/91920 1003(SNOMED CT) SULFA (SULFONAMIDE ANTIBIOTICS) Unknown~Hives~N andV [facility] 12/28/2020 DRUG/785259 003(SNOMED CT) AMOXICILLIN-POT CLAVULANATE Rash~Other [facility] 12/28/2020 DRUG INGREDI/419 418261(SNOM ED CT) METOCLOPRAMIDE Hives~NandV~Unk nown~Anxiety [facility] 12/28/2020 DRUG INGREDI/419 951141(SNOM ED CT) SUMATRIPTAN Anxiety~Unknown ~Other~Palpitat ions~Rash [facility] /44466193 6(SNOMED CT) metoclopramide 289549596 [facility] /19025537 6(SNOMED CT) sulfa drugs 165867778 [facility] /15614948 6(SNOMED CT) Augmentin XY2068-5 [facility] /98991009 6(SNOMED CT) SUMAtriptan 982898603~Heart racing or rapid heart rate [facility] ENCOUNTERS ADMIT/DISCHARGE ACCOUNT NUMBER ADMITTING ENCOUNTER CLASS LOCATION SOURCE 08/16/2024 [id number] Ambulatory EU Sara ding:MARQUIS Li [facility] 08/16/2024/08/17/19 25 [id number] Ambulatory Building:[facility] 08/16/2024/08/17/19 25 [id number] Ambulatory Building:[facility] 08/09/2024/08/10/19 25 [id number] Ambulatory PM [place]PM [facility] 07/19/2024/07/20/19 25 [id number] Ambulatory Building:[facility] 07/13/2024 [id number] Ambulatory Buildin 0 [facility] 06/12/2024/06/13/19 25 [id number] [facility] 06/07/2024/06/08/19 25 [id number] Ambulatory PM [place]:PM [facility] 05/31/2024/06/01/19 25 [id number] Ambulatory Building:NOM S [facility] 05/25/2024/05/26/19 25 [id number] Tad Barger [facility] 04/20/2024/04/20/19 25 [id number] Ambulatory Buildin 0 [facility] 01/14/2024 [id number] Ambulatory Buildin 0 [facility] 01/07/2024/01/07/20 24 [id number] Ambulatory Building:[facility] C XRAY [facility] 01/07/2024/01/07/20 24 [id number] VADIM CHOWDHURY Ambulatory BuildinCR oom: GISC OR POOLBed: 2530 [facility] 12/22/2023/12/22/19 24 [id number] Ambulatory Building:[place] FERG[place] [facility] 11/05/2023 [id number] Ambulatory Buildin 0 [facility] 11/05/2023/11/05/19 24 [id number] Ambulatory Buildin [id number] [facility] 09/17/2023/09/17/19 24 [id number] Ambulatory Building:[place] [facility] EPIC PAYERS ENCOUNTER GUARANTOR PAYER SUBSCRIBER SOURCE 08/16/2024 DEANNA KHANNAB: [facility] [address]Uxk: (HP) Primary Insurance:MEDICAL MUTUALPolicy Number: [id number] Date:2023-02-07 DEANNA Mckee REBELB: [id number] [place] [address] [facility] EPIC 08/16/2024 DEANNA CAMARILLOB: [place] [address]Xlt: (HP) Primary Insurance:MEDICAL MUTUALPolicy Number: [id number] Date:2023-02-07 DEANNA CAMARILLOB: [id number] [facility] [address] [facility] EPIC 08/09/2024 Deanna JaureguiB: [place] [address] Primary Insurance:Medical MutualPolicy Number: Effective Date:0487-35-36Mylz Name:THEO Meza [address] [address]FK: Deanna CamarilloB: [id number] [facility] [place] [place] [address] [facility] 07/19/2024 DEANNA CAMARILLOB: [facility] [address]Mgb: (HP) Primary Insurance:MEDICAL MUTUALPolicy Number: [id number] Date:2023-02-07 DEANNA CAMARILLOB: [id number] [place] [address] [facility] EP[facility] 07/13/2024 Primary Insurance:[employer] MEDICAL MANAGEMENTPolicy Number: [id number] Date:2021-10-31 [facility] [place] [address] [facility] 06/12/2024 Deanna N Fymve[address] [place] [address]Pyb: (HP) Primary Insurance:MMOPolicy Number: [id number] Date:8546-97-54[id number] [place] [address]OX: Deannaher Rafi CamarilloDOB: [id number] [place] [address]Fce: (HP) [facility] 06/12/2024 Secondary Insurance:Self PayPolicy Number: Effective Date:2024-06-12 NOT GIVENUNK [facility] 06/07/2024 Deannaher Rafi CamarilloDOB: [place] [address] Primary Insurance:Medical MutualPolicy Number: Effective Date:[id number] Name:COMP [address] [address]JV: Deannaher Rafi CamarilloDOB: [id number] [place] [address] [facility] 05/31/2024 DEANNAHER Rafi CAMARILLODOB: [facility] [address]Yiu: (HP) Primary Insurance:MEDICAL MUTUALPolicy Number: [id number] Date:2023-02-07 DEANNA N JESSICADOB: [id number] [facility] [address] [facility] 05/25/2024 Deanna N Rjhiy[address] [place] [address]Lfb: (HP) Primary Insurance:MMOPolicy Number: [id number] Date:[id number] [place] [address]RZ: Deannaher Rafi CamarilloDOB: [id number] [place] [address]Unl: (HP) [facility] 05/25/2024 Secondary Insurance:Self PayPolicy Number: Effective Date:2024-05-25 [facility] 04/20/2024 Primary Insurance:[employer] MEDICAL MANAGEMENTPolicy Number: [id number] Date:2021-10-31 [facility] [place] [address] [place] [address] [facility] 01/14/2024 Primary Insurance:[employer] MEDICAL MANAGEMENTPolicy Number: [id number] Date:2021-10-[address] [address] [facility] 01/07/2024 Primary Insurance:[employer] MEDICAL MANAGEMENTPolicy Number: [id number] Date:2021-10-[address] [address] [facility] 01/07/2024 Primary Insurance:[employer] MEDICAL MANAGEMENTPolicy Number: [id number] Date:2021-10-[address] [address] [facility] 12/22/2023 DEANNA Mckee JEYB: [place] [address]Haz: (HP) Primary Insurance:MEDICAL MUTUALPolicy Number: [id number] Date:2023-02-07 DEANNA Mckee JEYB: [id number] [place] [address] [facility] 11/05/2023 Primary Insurance:[employer] MEDICAL MANAGEMENTPolicy Number: [id number] Date:2021-10-[address] [address] [facility] 11/05/2023 Primary Insurance:[employer]ICA MEDICAL MANAGEMENTPolicy Number: [id number] Date:2021-10-31 [facility] [address] [facility] 09/17/2023 DEANNA ROMERO: [id number] [place] [address]Uzd: () Primary Insurance:MEDICAL MUTUALPolicy Number: [id number] Date:2023-02-07 DEANNA ROMERO: [id number] [place] [address] [facility] EPIC
--- OUTSIDE RECORDS SUMMARY | 2024-09-13 13:14 | XMS_ITS | Encounter Summary ---
Author Organization [facility] Address [address] [place] [address] Care Team Providers Care Director Of Reservations Name Role Phone Shantelle Masters MD, [facility] Primary Care Provider + Encounter Details Date Type Department Care Team (Late st Contact Info) Description 09/09/2024 Abstract [facility] [address] [place] [address] [place] [address] Marguerite Ferreira MA Social History Tobacco Use Types Packs/Day Years Used Date Smoking Tobacco: Never Smokeless Tobacco: Never Alcohol Use Standard Drinks/Week Comments Not Currently 0 (1 standard drink = 0.6 oz pur e alcohol) Humiliation, Afraid, Rape, and Kick questionnair e [...] Recorded Patient Health Questionnaire-2 Score 0 07/13/2024 [facility] [place] [facility] Occup[facility] ional [facility] - Occupational Stress [...] things needed for daily living? No 02/26/2022 Comments No Sex and Gender Information Value Date Recorded Sex Assigned at Female 11/25/2022 6:50 AM EDT Legal Sex Female 11:53 PM EDT Gender Identity Female 11/25/2022 6:50 AM EDT Sexual Orientation Heterosexual or Straight 11/08 6:50 AM EDT documented as of this encounter Plan of Treatment Upcoming Encounters Date Type Department Care Team (Late st Contact Info) Description 09/20/2024 7:30 AM EDT Hospital Encounter [facility] Invasive Surgery [address] [place] [phone] Vadim Dorado MD [address] [facility] [place] [address] 09/20/2024 7:30 AM EDT - 09/20/2024 9:00 AM EDT Surgery [facility] Surgery [address] [place] [address] Vadim Dorado MD [address] [facility] [place] [address] LITTLE FINGER DIP FUSION 10/06/2024 3:50 PM EDT Office Visit [address] [place] [address] Vadim Dorado MD [address] [place] [address] 10/19/2024 1:00 PM EDT Office Visit [address] [place] [phone] Vadim Dorado MD [address] [place] [address] Scheduled Procedures Name Priority Associated Diagnoses Date/Ti me FUSION, DIP JOINT Trigger finger, acquired 09/20/2024 7:30 AM EDT RELEASE, TRIGGER FINGER Trigger finger, acquired 09/20/2024 7:30 AM EDT documented as of this encounter Visit Diagnoses Not on filedocumented in this encounter Care Teams Director Of Reservations Relationship Specialty Start Date End Date Ryan Pepper Jr., MD [address] PCP - General 05/27/22 documented as of this encounter
--- OUTSIDE RECORDS SUMMARY | 2024-09-13 13:14 | XMS_ITS | Encounter Summary ---
Author Organization [facility] Address [address] [place] [address] Care Team Providers Care Social And Political Studies Professor Name Role Phone Dennis Pepper DO Primary Care Provider [phone] Dennis Pepper DO Unavailable [phone] Encounter Details Date Type Department Care Team (Late st Contact Info) Description 07/22/2023 Abstract [facility] [address] [facility] [address] [place] [address] Dennis Pepper DO [address] [place] [address] [place] [address] Social History Tobacco Use Types Packs/Day Years [...] on filedocumented in this encounter Care Teams Social And Political Studies Professor Relationship Specialty Start Date End Date Dennis Pepper DO [address] [facility] [address] [place] [address] PCP - General Family Medicine 08/15/22 Dennis Pepper DO [address] [facility] [address] [place] [address] PCP - Medical [place] [employer] 02/07/23 03/09/99 documented as of this encounter
--- OUTSIDE RECORDS SUMMARY | 2024-09-13 13:14 | XMS_ITS | Encounter Summary ---
Author Organization [facility] Address [address] [facility] [place] [address] Care Team Providers Care Carbon Blocks Press Operator Name Role Phone Dennis Pepper DO Primary Care Provider [phone] Dennis Pepper DO Unavailable [phone] Encounter Details Date Type Department Care Team (Late st Contact Info) Description 03/14/2023 Orders Only [facility] FM [address] [facility] [place] [phone] A, Unknown Practice [address] [place], [place] [phone] Social History Tobacco Use Types Packs/Day Years [...] on file documented as of this encounter Procedures Procedure [...] on filedocumented in this encounter Care Teams Carbon Blocks Press Operator Relationship Specialty Start Date End Date Dennis Pepper DO [address] [place] [address] PCP - General Family Medicine 08/15/22 Dennis Pepper DO [address] [place] [address] PCP - Medical [place] [employer] 02/07/23 03/09/99 documented as of this encounter
--- OUTSIDE RECORDS SUMMARY | 2024-09-13 13:14 | XMS_ITS | Encounter Summary ---
Author Organization [facility] Address [address] [place] [address] Care Team Providers Care Machine Printer Hose Name Role Phone Shantelle Masters MD, [facility] Primary Care Provider + Encounter Details Date Type Department Care Team (Latest Contact Info) Description 09/07/2024 Travel Social History Tobacco Use Types Packs/Day Years [...] Recorded Patient Health Questionnaire-2 Score 0 07/13/2024 [facility] [place] of Occupat ional Health - Occupational Stress [...] Description 09/20/2024 7:30 AM EDT Hospital Encounter [facility] [address] [place] [phone] Vadim Dorado MD [address] [facility] [place] [phone] 09/20/2024 7:30 AM EDT - 09/20/2024 9:00 AM EDT Surgery [facility] Surgery [address] [place] [phone] Vadim Dorado MD [address] [place] [phone] LITTLE FINGER DIP FUSION 10/06/2024 3:50 PM EDT Office Visit [address] [place] [phone] Vadim Dorado MD [address] [facility] [place] [address] 001- 10/19/2024 1:00 PM EDT Office Visit [address] [place] [address] Vadim Dorado MD [address] [facility] [place] [address] 857- Scheduled Procedures Name Priority Associated Diagnoses Date/Ti me FUSION, DIP JOINT Trigger finger, acquired 09/20/2024 7:30 AM EDT RELEASE, TRIGGER FINGER Trigger finger, acquired 09/20/2024 7:30 AM EDT documented as of this encounter Visit Diagnoses Not on filedocumented in this encounter Care Teams Machine Printer Hose Relationship Specialty Start Date End Date Ryan Pepper Jr., MD [facility] [address] PCP - General 05/27/22 documented as of this encounter
--- OUTSIDE RECORDS SUMMARY | 2024-09-13 13:14 | XMS_ITS | Encounter Summary ---
Author Organization [facility] Address [address] [place] [address] Care Team Providers Care Drafter Chief Design Name Role Phone Dennis Pepper DO Primary Care Provider [phone] Dennis Pepper DO Unavailable [phone] Reason for Visit * Reason Comments Med Refill Encounter Details Date Type Department Care Team (Late Contact Info) Description 10/13/2022 Refill [facility] FM [address] [place] [phone] Dennis Pepper DO [address] [place] [address] Headache Social History Tobacco Use Types Packs/Day [...] Headache documented in this encounter Care Teams Drafter Chief Design Relationship Specialty Start Date End Date Dennis Pepper DO [address] [place] [address] PCP - General Family Medicine 08/15/22 Dennis Pepper DO [address] [place] [address] PCP - Medical [place] [employer] 02/07/23 03/09/99 documented as of this encounter
--- OUTSIDE RECORDS SUMMARY | 2024-09-13 13:14 | XMS_ITS | Encounter Summary ---
Author Organization [facility] Address [address] [place] [address] Care Team Providers Care Biofuels Engineering Manager Name Role Phone Dennis Pepper DO Primary Care Provider [phone] Dennis Pepper DO Unavailable [phone] Reason for Visit * Reason Comments Med Refill Encounter Details Date Type Department Care Team ([facility] Contact Info) Description 12/14/2022 Refill [facility] [address] [facility] [address] [place] [phone] Dennis Pepper DO [address] [facility] [address] [place] [address] Chronic pain syndrome Social History Tobacco Use [...] documented in this encounter Plan of Treatment Not on file documented as of this encounter Visit Diagnoses Diagnosis Chronic pain syndrome documented in this encounter Care Teams Biofuels Engineering Manager Relationship Specialty Start Date End Date Dennis Pepper DO [address] [place] [address] PCP - General Family Medicine 08/15/22 Dennis Pepper DO [address] [place] [address] PCP - Medical [place] [employer] 02/07/23 03/09/99 documented as of this encounter
--- OUTSIDE RECORDS SUMMARY | 2024-09-13 13:14 | XMS_ITS | Encounter Summary ---
Author Organization [facility] Address [address] [place] [address] Care Team Providers Care Cadd Instructor Name Role Phone Shantelle Masters MD, [facility] Primary Care Provider + Encounter Details Date Type Department Care Team (Late st Contact Info) Description 09/09/2024 Telephone [facility] [address] [place] [address] [place] [phone] Maria R Us MA Social History Tobacco Use Types Packs/Day [...] Recorded Patient Health Questionnaire-2 Score 0 07/13/2024 [facility] [place] of Occupat ional Health - Occupational Stress [...] encounter Miscellaneous Notes * Telephone Encounter - Marguerite Ferreira MA - 09/09/2024 10:41 AM EDT Patient is having new farms emailed to me and I will get it filled out and faxed over CARROL * Telephone Encounter - Maria R Us MA - 09/09/2024 10:25 AM EDT Patient states she hasn't heard back if her FMLA paperwork was complete. I dont see anything scanned in. documented in this encounter Plan of Treatment Upcoming Encounters Date Type Department Care Team (Late st Contact Info) Description 09/20/2024 7:30 AM EDT Hospital Encounter [place] [facility] Invasive Surgery [address] [place] [address] Vadim Dorado MD [address] [place] [phone] 09/20/2024 7:30 AM EDT - 09/20/2024 9:00 AM EDT [facility] [address] [place] [phone] Vadim Dorado MD [address] [place] [address] LITTLE FINGER DIP FUSION 10/06/2024 3:50 PM EDT Office Visit [address] [place] [phone] Vadim Dorado MD [address] [place] [address] 10/19/2024 1:00 PM EDT Office Visit [address] [place] [address] Vadim Dorado MD [address] [place] [address] Scheduled Procedures Name Priority Associated Diagnoses Date/Ti me FUSION, DIP JOINT Trigger finger, acquired 09/20/2024 7:30 AM EDT RELEASE, TRIGGER FINGER Trigger finger, acquired 09/20/2024 7:30 AM EDT documented as of this encounter Visit Diagnoses Not on filedocumented in this encounter Care Teams Cadd Instructor Relationship Specialty Start Date End Date Ryan Peppre Jr., MD [address] PCP - General 05/27/22 documented as of this encounter
--- OUTSIDE RECORDS SUMMARY | 2024-09-13 13:14 | XMS_ITS | Encounter Summary ---
Author Organization [facility] Address [address] [place] [address] Care Team Providers Care Collection Systems Worker Name Role Phone Dennis Pepper DO Primary Care Provider [phone] Dennis Pepper DO Unavailable [phone] Encounter Details Date Type Department Care Team (Late st Contact Info) Description 03/16/2024 Abstract [facility] [address] [facility] [address] [place] [phone] Dennis Pepper DO [address] [place] [address] Social History Tobacco Use Types Packs/Day Years [...] on filedocumented in this encounter Care Teams Collection Systems Worker Relationship Specialty Start Date End Date Dennis Pepper DO [address] [facility] [address] [place] [address] PCP - General Family Medicine 08/15/22 Dennis Pepper DO [address] [facility] [address] [place] [address] PCP - Medical [place] [employer] 02/07/23 03/09/99 documented as of this encounter
--- OUTSIDE RECORDS SUMMARY | 2024-09-13 13:14 | XMS_ITS | Encounter Summary ---
Author Organization [facility] Address [address] [place] [address] Care Team Providers Care Paper Grader Name Role Phone Dennis Pepper DO Primary Care Provider [phone] Dennis Pepper DO Unavailable [phone] Encounter Details Date Type Department Care Team (Late st Contact Info) Description 07/10/2023 Abstract [facility] [address] [facility] [address] [place] [phone] Dennis Pepper DO [address] [place] [address] Social History Tobacco Use Types Packs/Day Years [...] on filedocumented in this encounter Care Teams Paper Grader Relationship Specialty Start Date End Date Dennis Pepper DO [address] [facility] [address] [place] [address] PCP - General Family Medicine 08/15/22 Dennsi Pepper DO [address] [facility] [address] [place] [address] PCP - Medical [place] [employer] 02/07/23 03/09/99 documented as of this encounter
--- OUTSIDE RECORDS SUMMARY | 2024-09-13 13:14 | XMS_ITS | Clinical Summary ---
Author Organization [facility] Address [address] [place] [address] Care Team Providers Care Can Cutter Name Role Phone Cosmo Pepper MD Primary Care Provider [phone] Allergies Active Allergy Reactions Criticality Noted Date [...] 2019 FIT/FOBT: Average risk 2019 Fecal-DNA (Cologuard): Shepherd ge risk 2019 Sigmoidoscopy/CT colonography 2019 COVID-19 Vaccine (3 - 2023-2 5 season) 2023 03/28/2021, 06/06/2020 Pneumococcal 50+ years Vacci ne (1 of 1 - PCV) 2024 Shingles vaccine (1 of 2) 2024 Flu vaccine (#1) 10/08/2024 12/28/2020, 01/07/2020, 12/25/2018 Hepatitis A vaccine Aged Out [...] complete this topic Insurance CIG Care Teams Can Cutter Relationship Specialty Start Date End Date Cosmo Pepper MD [address] [place] [address] [address] [place] [address] PCP - General 04/11/22
--- OUTSIDE RECORDS SUMMARY | 2024-09-13 13:14 | XMS_ITS | Encounter Summary ---
Author Organization [facility] Address [address] [facility] [place] [address] Care Team Providers Care Tabber Name Role Phone Dennis Pepper DO Primary Care Provider [phone] Dennis Pepper DO Unavailable [phone] Encounter Details Date Type Department Care Team (Late st Contact Info) Description 04/16/2023 Orders Only [facility] FM [address] [facility] [address] [place] [address] A, Unknown Practice [address] [place], [place] [phone] Social History Tobacco Use Types Packs/Day Years [...] on filedocumented in this encounter Care Teams Tabber Relationship Specialty Start Date End Date Dennis Pepper DO [address] [place] [address] PCP - General Family Medicine 08/15/22 Dennis Pepper DO [address] [place] [address] PCP - Medical [place] [employer] 02/07/23 03/09/99 documented as of this encounter
--- OUTSIDE RECORDS SUMMARY | 2024-09-13 13:14 | XMS_ITS | Encounter Summary ---
Author Organization [facility] Address [address] [place] [address] Care Team Providers Care Asphalt Paver Operator Name Role Phone Dennis Pepper DO Primary Care Provider [phone] Dennis Pepper DO Unavailable [phone] Encounter Details Date Type Department Care [...] G89.18: Post-op pain. COMPARISON: None ACCESSION NUMBER(S): [id number] ORDERING CLINICIAN: CHAR BRAVO FINDINGS: Flexion deformity [...] G89.18: Post-op pain. COMPARISON: None ACCESSION NUMBER(S): [id number] ORDERING CLINICIAN: CHAR BRAVO FINDINGS: Flexion deformity with some arthrosis at the right 5th proximal interphalangeal joint likely related to remote fracture. No acute findings right hand. 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 No acute findings right hand. Electronically signed by: CARLA SINGH MD Generic External Data Provider [facility] Final Result documented in this encounter Visit Diagnoses Not on filedocumented in this encounter Care Teams Asphalt Paver Operator Relationship Specialty Start Date End Date Dennis Pepper DO [address] [place] [address] PCP - General Family Medicine 08/15/22 Dennis Pepper DO [address] [place] [address] PCP - Medical [place] [employer] 02/07/23 03/09/99 documented as of this encounter
--- OUTSIDE RECORDS SUMMARY | 2024-09-13 13:14 | XMS_ITS | Encounter Summary ---
Author Organization [facility] Address [address] [place] [address] Care Team Providers Care Coat Joiner Lockstitch Name Role Phone Dennis Pepper DO Primary Care Provider [phone] Dennis Pepper DO Unavailable [phone] Encounter Details Date Type Department Care Team (Late st Contact Info) Description 03/24/2023 Abstract [facility] [address] [facility] [address] [place] [phone] Dennis Pepper DO [address] [place] [address] Social History Tobacco Use Types Packs/Day Years [...] on filedocumented in this encounter Care Teams Coat Joiner Lockstitch Relationship Specialty Start Date End Date Dennis Pepper DO [address] [place] [address] PCP - General Family Medicine 08/15/22 Dennis Pepper DO [address] [facility] [address] [place] [address] PCP - Medical [place] [employer] 02/07/23 03/09/99 documented as of this encounter
--- OUTSIDE RECORDS SUMMARY | 2024-09-13 13:14 | XMS_ITS | Clinical Summary ---
Author Organization [facility] Address [address] [place] [address] Phone Care Team Providers Care Advance Seal Delivery System Maintainer Name Role Phone Jimmyjose Dennis Samano Primary Care Provider [phone] Allergies Active Allergy Reactions Criticality Noted Date [...] Vaccines (1 of 2) 2024 Influenza Vaccine (#1) 2024 , 01/07/2020, 12/25/2018 DTaP/Tdap/Td Vaccines (2 - T d or Tdap) 11/15/2032 11/15/2022 HIB Vaccines Aged Out No longer eligi ble based on patient's age to complete this topic HPV Vaccines (No Doses Required) Completed Hepatitis A Vaccines Aged Out No long [...] age to complete this topic Care Teams Advance Seal Delivery System Maintainer Relationship Specialty Start Date End Date Dennis Pepper DO [address] [facility] [address] [place] [phone] PCP - General 10/25/16
--- OUTSIDE RECORDS SUMMARY | 2024-09-13 13:14 | XMS_ITS | Clinical Summary ---
Author Organization [facility] Address [address] [place] [address] Care Team Providers Care Ecological Modeler Name Role Phone Dennis Pepper DO Primary Care Provider [phone] Dennis Pepper DO Unavailable [phone] Allergies Active Allergy Reactions Criticality Noted Date Comments Amoxicillin-Pot Clavulanate Rash Low 10/23/19 23 Sumatriptan Palpitations Low 10/22/2022 Metoclopramide Anxiety Low 10/22/2022 Sulfa Antibiotics 10/22/2022 Medications oxyCODONE-acetamin ophen (Percocet) 5-325 MG tablet Take 1 tablet by mouth in the morning. 08/10/19 23 Active hydrOXYzine pamoate (Vistaril) 25 MG capsuleIndications :Anxiety and depression Take 1 capsule (25 mg) by mouth every 8 (eight) hours if needed for anxiety 30 capsule 5 09/15/19 24 Active ondansetron ODT (Zofran-ODT) 4 MG disintegrating tabletIndications: Headache DISSOLVE 1 TABLET ON THE TONGUE EVERY 8 HOURS NEEDED 18 tablet 2 09/15/19 24 Active atenolol-chlorthal idone (Tenoretic) 50-25 MG tabletIndications: Primary hypertension TAKE 1 TABLET BY MOUTH EVERY DAY 90 tablet 2 12/30/19 24 Active lamoTRIgine (LaMICtal) 200 MG tabletIndications: Bipolar affective disorder, remission status unspecified (HCC),Anxiety and depression Take 1 tablet (200 mg) by mouth Daily 90 tablet 3 02/27/20 24 Active valACYclovir (Valtrex) 500 MG tabletIndications: History of cold sores TAKE 1 TABLET BY MOUTH EVERY MORNING 1 IN THE EVENING & 1 AT BEDTIME FOR 7 DAYS 21 tablet 1 04/05/19 25 Active fluticasone (Flonase) 50 MCG/ACT nasal sprayIndications:A cute recurrent maxillary sinusitis Administer 2 sprays into each nostril Daily Shake gently. Before first use, prime pump. After use, clean tip and replace cap. 06/01/19 25 026 Active azithromycin (Zithromax) 250 MG tabletIndications: Acute recurrent maxillary sinusitis 2 pills orally today, then 1 pill orally daily for 4 days 6 tablet 06/01/19 25 Active PARoxetine (Paxil) 30 MG tabletIndications: Bipolar affective disorder, remission status unspecified (HCC) TAKE 2 TABLETS BY MOUTH IN THE MORNING 180 tablet 3 06/15/19 25 Active estradiol (Estrace) 0.1 MG/GM vaginal creamIndications:V ulvovaginal Atrophy Insert twice weekly 42.5 g 12 07/20/19 25 Active Vibegron (Gemtesa) 75 MG tabletIndications: Other urinary incontinence Take 75 mg by mouth Daily 30 tablet 3 07/20/19 25 Active oxaprozin (Daypro) 600 MG tabletIndications: Unspecified thoracic, thoracolumbar and lumbosacral intervertebral disc disorder Take 1 tablet (600 mg) by mouth in the morning and 1 tablet (600 mg) before bedtime. 60 tablet 3 07/25/19 25 Active butalbital-acetami nophen-caffeine (Fioricet) 50-300-40 MG capsuleIndications :Nonintractable headache, unspecified chronicity pattern, unspecified headache type TAKE 1 CAPSULE BY MOUTH EVERY 4 HOURS NEEDED FOR HEADACHES 40 capsule 07/25/19 25 Active tiZANidine (Zanaflex) 4 MG tabletIndications: Other chronic pain Take 1 tablet (4 mg) by mouth 3 (three) times a day as needed for muscle spasms 270 tablet 1 07/25/19 25 Active pregabalin (Lyrica) 200 MG capsuleIndications :Complex regional pain syndrome type 1, affecting unspecified site,Disorder of intervertebral disc of lumbar spine,Chronic pain syndrome,Neuropath y Take 1 capsule (200 mg) by mouth in the morning and 1 capsule (200 mg) before bedtime. 60 capsule 07/01/20 25 Active pregabalin (Lyrica) 200 MG capsuleIndications :Complex regional pain syndrome type 1, affecting unspecified site,Disorder of intervertebral disc of lumbar spine,Chronic pain syndrome,Neuropath y TAKE 1 CAPSULE BY MOUTH IN THE MORNING AND 1 CAPSULE BEFORE BEDTIME. 60 capsule 07/21/19 25 025 Discontin ued(Reord er) Active Problems Problem Noted Date Diagnosed Date Dizzy spells 05/31/2024 Fatty liver 09/17/2023 S/P Jluis fundoplication (w ithout gastrostomy tube) procedure 07/02/2023 Gastroesophageal reflux disease without esophagi tis 04/07/2023 Irritable bowel syndrome 12/17/2022 Solitary pulmonary nodule 12/17/2022 Stage 3a chronic kidney disease 12/17/2022 Complex regional pain syndro me type 1 of left lower extremity 12/15/2022 Dislocation of finger 12/15/2022 Chronic pain 08/15/2022 Disorder of intervertebral disc of lumbar spine 08/15/2022 Arthritis 06/10/2022 Dysphagia 06/10/2022 Epigastric pain 06/10/2022 Heartburn 06/10/2022 Hypothyroidism 06/10/2022 Kidney stone 06/10/2022 Contracture of joint of right hand 05/06/2022 Overview (12/17/2022): Added automatically from request for surgery [id number] Urinary hesitancy 12/14/2020 Complex regional pain syndrome I, unspecified Anxiety attack 12/25/2018 Neuropathy 12/25/2018 Insomnia 01/23/2018 Status post hysterectomy 01/23/2018 Bipolar 1 disorder 05/10/2016 Hypertension 05/10/2016 Mixed anxiety and depressive disorder 05/10/2016 Encounters Date Type Department Care Team Description 09/07/2024 Refill [facility] [address] [place] [address] Mo Smith LPN Complex regional pain syndrome type 1, affecting unspecified site; Disorder of intervertebral disc of lumbar spine; Chronic pain syndrome; Neuropathy 08/16/2024 10:45 AM EDT Office Visit [facility] [address] [place] [address] Winston Vallejo MD Sensation as if bladder still full (Primary Dx); Hormone imbalance; Urinary incontinence, unspecified type; Vaginal atrophy; Other urinary incontinence; Yeast infection 08/16/2024 9:30 AM EDT Ancillary Procedure [facility] [address] [place] [phone] Urinary incontinence in female 08/16/2024 Orders Only [facility] External Department Unsolicited Winston Vallejo MD 08/16/2024 Travel 08/11/2024 Abstract [facility] [address] [place] [address] Dennis Pepper DO 07/23/2024 Refill [facility] [address] [place] [address] Yamileth Weeks MA Unspecified thoracic, thoracolumbar and lumbosacral intervertebral disc disorder; Nonintractable headache, unspecified chronicity pattern, unspecified headache type; Other chronic pain 07/20/2024 Refill [facility] [address] [place] [address] Dennis Pepper DO Complex regional pain syndrome type 1, affecting unspecified site; Disorder of intervertebral disc of lumbar spine; Chronic pain syndrome; Neuropathy 07/19/2024 11:00 AM EDT Office Visit [facility] [address] [place] [address] Winston Vallejo MD Screening mammogram, encounter for (Primary Dx); Hormone imbalance; Urinary incontinence, unspecified type; Encounter for gynecological examination without abnormal finding; Encounter for screening for cervical cancer; Vaginal atrophy; Other urinary incontinence 07/19/2024 Travel 07/13/2024 Refill [facility] [address] [place] [phone] Dennis Pepper DO Unspecified thoracic, thoracolumbar and lumbosacral intervertebral disc disorder 06/17/2024 Telephone [facility] [address] [place] [phone] Anel Edge LPN 06/14/2024 Patient Outreach [facility] [address] [place] [address] Tait Harrison LSW 06/14/2024 Refill [facility] [address] [place] [address] Dennis Pepper, Bipolar affective disorder, remission status unspecified (HCC) from Last 3 Months Immunizations Immunization Administration Dates Next Due Influenza, Injectable, MDCK, preservative free 1 Influenza, Madin Zeynep Canin e Kidney, subunit, trivalent, injectable, contains [...] Sign Reading Time Taken Comments Blood Pressure 120/72 08/16/2024 9:43 AM EDT Pulse 50 05/31/2024 2:13 PM EDT Temperature 36.1 C (96.9 F) 05/31/2024 2:13 PM EDT Respiratory Rate - - Oxygen Saturation 99% 05/31/2024 2:13 PM EDT Inhaled Oxygen Concentration - - Weight 68.9 kg (152 lb) 08/16/2024 9:43 AM EDT Height 157.5 cm (5' 2 ) 12/22/2023 11:24 AM EDT Body Mass Index 27.8 12/22/2023 11:24 AM EDT Plan of Treatment Health Maintenance Due Date Last Done Comments CT Colonography 1974 FIT-DNA 1974 FIT 1974 FOBT 1974 Sigmoidoscopy 1974 Mammogram 01/02/2020 01/01/2019 Influenza Vaccine (#1) 2024 , 01/06/2023, 01/06/2023, Additional history exists Colonoscopy 10/18/2031 10/17/2021, 10/11/2021, 08/08 Colorectal Cancer Screening 10/18/2031 Cervical Cancer Screening Discontinued HPV/Cotest Discontinued 07/19/2024 Pap Smear Discontinued Procedures Procedure Name Priority Date/Time Associated Diagnosis Comments URINE CULTURE CLEAN CATCH REFLEX Routine 08/16/2024 12:18 PM EDT CULTURE, URINE, ROUTINE Routine 08/16/2024 12:18 PM EDT US PELVIS LIMITED Routine 08/16/2024 9:4 3 AM EDT Urinary incontinence in female IGP, APT HPV,RFX 16/18,45 Routine 07/19/2024 12:00 AM EDT Encounter for gynecological examination without abnormal finding Encounter for screening for cervical cancer COLONOSCOPY Routine 10/11/2021 Other nonspecific abnormal finding of lung field Lower abdominal pain, unspecified BI MAMMOGRAM SCREENING BILATERAL Routine 01/01/2019 12:00 PM EDT Encounter for immunization Essential (primary) hypertension Polyneuropathy, unspecified Encounter for other screening for malignant neoplasm of breast Insomnia, unspecified Panic disorder (episodic paroxysmal anxiety) Headache Bipolar disorder, unspecified (HCC) Other herpesviral infection from Last 3 Months or Most Recently Relevant to Health Maintenance Results * Urine Culture Clean Catch Reflex (08/16/2024 12:18 PM EDT) Ur Cult 1 Comment [facility] Comment: Mixed urogenital erick Less than 10,000 colonies/mL 08/16/2024 12:1 8 PM EDT 08/16/2024 Narrative [facility] - 08/18/2024 6:06 AM EDT Performed at: [address] [place] [id number] Trade Show Specialist: Dayron Hutchinson PhD, Phone: [phone] us Winston Vallejo MD LAB URINE ORDERABLES Final Res ult Performing Organization Address [facility] Co de Phone Number [facility] * Urine culture (08/16/2024 12:18 PM EDT) Urine Cult Rt Status Final report [facility] 08/16/2024 12:1 8 PM EDT 08/16/2024 Comment:URINE Narrative [facility] - 08/18/2024 6:06 AM EDT Performed at: [address] [place] [id number] Trade Show Specialist: Dayron Hutchinson PhD, Phone: [phone] us Winston Valljeo MD LAB MICROBIOLOGY - GENERAL ORD ERABLES Final Result Performing Organization Address [facility]/ZIP Co de Phone Number [facility] * US pelvis limited (08/16/2024 9:43 AM EDT) Anatomical Region Laterality Modality Pelvis Ultrasound Study GA Study Date Study MARLON Working MARLON (Source) 08/16/2024 us Winston Vallejo MD IMG US PROCEDURES Final Result * IGP, APT HPV,RFX 16/18,45 (07/19/2024 12:00 [...] Methodology: CANCELED [facility] Comment: The Thin Prep(R) Senior Animal Trainer was unable to read this specimen. Therefore a manual review was performed. Result canceled by the ancillary. HPV Aptima Negative Negative [facility] Comment: This nucleic acid amplification test detects fourteen high-risk HPV types (16,18,31,33,35,39,45,51,52,56,58,59,66,68) without differentiation. Vaginal Fluid 07/19/2024 07/20/2024 Narrative [facility] - 07/22/2024 1:07 PM EDT Performed at: - [address] [id number] Trade Show Specialist: Syeda Ardon MD, Phone: [phone] Performed at: 02 - [address] [id number] Trade Show Specialist: Syeda Ardon MD, Phone: [phone] Specimen Comment: No. of containers..01 ThinPrep Vial us Winston Vallejo MD LAB BLOOD ORDERABLES Edited Re sult - Final [facility] * Colonoscopy (10/11/2021) Anatomical Region Laterality Modality Endoscopy 10/11/2021 Narrative 10/11/2021 12:00 AM EDT PERFORMED AT [facility] LOCATION:[facility] Procedure Note CONVERSION, GENERIC - 07/25/2022 PERFORMED AT [facility] LOCATION:[facility] Jayesh Holden DO ENDOSCOPY PROCEDURE ORDER BRIAN Final Result * Bilateral screening mammogram (01/01/2019 12:00 PM EDT) Anatomical Region Laterality Modality Breast Bilateral Mammography Narrative 12/31/2018 12:00 AM EDT PERFORMED AT [facility] LOCATION:[id number] Procedure Note CONVERSION, GENERIC / Dennis Pepper DO - 09/13/2022 PERFORMED AT [facility] LOCATION:[id number] Dennis Pepper DO IMG BI PROCEDURES Final Resul t from Last 3 Months or Most Recently Relevant to Health Maintenance Insurance [employer] Care Teams Ecological Modeler Relationship Specialty Start Date End Date Dennis Pepper DO [address] [place] [address] PCP - General Family Medicine 08/15/22 Dennis Pepper DO [address] [place] [address] PCP - Medical [place] [employer] 02/07/23 03/09/99
--- OUTSIDE RECORDS SUMMARY | 2024-09-13 13:14 | XMS_ITS | Encounter Summary ---
Author Organization [facility] Address [address] [place] [address] Care Team Providers Care Astronomy Teacher Name Role Phone Shanetlle Masters DO, George Robert Primary Care Provi joann Malina Castaneda CNP Unavailable [phone] Source Comments In the event this information is protected by the Federal Confidentiality of Alcohol and Drug AbusePatient Records regulations: The Federal rules restrict any use of the information to criminally investigate or prosecute any alcohol or drug abuse patient.[facility] Encounter Details Date Type Department Care Team ([facility] Contact Info) Description 06/26/2023 [place] [address] Provider, [facility] Actionable Imaging Result Notification Patient Outreach Social History Tobacco Use Types Packs/Day Years Used Date Smoking Tobacco: Never Smokeless Tobacco: Never Area Deprivation Index Answer Date Josse rded National Score (1-100), lower number is lower ri sk 79 06/25/2023 State Score (1-10), lower number is lower risk 7 06/25/2023 Data from: https://www.neighborhoodatlas.medicine.[facility].edu/. Last address used for calculation [address] [place] [address] 06/25/2023 Comments No Sex and Gender Information Value Date Recorded Sex Assigned at Not on file Legal Sex Female 11:16 PM EST Gender Identity Not on file Sexual Orientation Not on file documented as of this encounter Plan of Treatment Not on file documented as of this encounter Visit Diagnoses Not on filedocumented in this encounter Care Teams Astronomy Teacher Relationship Specialty Start Date End Date Dennis Pepper Jr., DO [address] [facility] [address] [place] [address] PCP - General Family Medicine 05/19/23 Malina Castaneda, MORTGAGE LOAN INTERVIEWER [address] [place] [address] Referring Family Medicine 05/19/23 documented as of this encounter
--- OUTSIDE RECORDS SUMMARY | 2024-09-13 13:14 | XMS_ITS | Encounter Summary ---
Author Organization [facility] Address [address] [facility] [place] [address] Care Team Providers Care Splicing Machine Operator Name Role Phone Dennis Pepper DO Primary Care Provider [phone] Dennis Pepper DO Unavailable [phone] Encounter Details Date Type Department Care Team (Late st Contact Info) Description 04/23/2023 Orders Only [facility] [address] [facility] [address] [place] [phone] A, Unknown Practice [address] [place], [place] [phone] Social History Tobacco Use Types Packs/Day Years [...] on filedocumented in this encounter Care Teams Splicing Machine Operator Relationship Specialty Start Date End Date Dennis Pepper DO [address] [place] [address] PCP - General Family Medicine 08/15/22 Dennis Pepper DO [address] [place] [address] PCP - Medical [place] [employer] 02/07/23 03/09/99 documented as of this encounter
--- OUTSIDE RECORDS SUMMARY | 2024-09-13 13:14 | XMS_ITS | Encounter Summary ---
Author Organization [facility] Address [address] [place] [address] Care Team Providers Care Fingerer Name Role Phone Dennis Pepper DO Primary Care Provider [phone] Dennis Pepper DO Unavailable [phone] Encounter Details Date Type Department Care Team (Late st Contact Info) Description 03/31/2023 Abstract [facility] [address] [facility] [address] [place] [phone] Dennis Pepper DO [address] [place] [address] Social History Tobacco Use Types Packs/Day Years [...] on filedocumented in this encounter Care Teams Fingerer Relationship Specialty Start Date End Date Dennis Pepper DO [address] [facility] [address] [place] [address] PCP - General Family Medicine 08/15/22 Dennis Pepper DO [address] [facility] [address] [place] [address] PCP - Medical [place] [employer] 02/07/23 03/09/99 documented as of this encounter
--- OUTSIDE RECORDS SUMMARY | 2024-09-13 13:14 | XMS_ITS | Clinical Summary ---
Author Organization [facility] Address [address] [place] [address] Care Team Providers Care Stations Superintendent Name Role Phone Shantelle Masters MD, [facility] Primary Care Provider + Allergies Active Allergy Reactions Criticality Noted Date Comments Amoxicillin-Pot Clavulanate Rash,Other Low 12/29/19 21 Prochlorperazine Other 07/13/2024 Metoclopramide Hives,Nausea And Vomiting,Unknown,Anx iety Low 12/28/2020 Palpitations Metoclopramide Hcl Anxiety Low 05/20/2022 Sulfa (Sulfonamide Antibiotics) Unknown,Hives,Nausea And Vomiting Low 11/22/2021 Sumatriptan Anxiety,Unknown,Othe r,Palpitations,Rash Low 12/28/2020 Medications ondansetron (Zofran) 4 mg tablet Take 4 mg by mouth every 8 (eight) hours if needed. 03/13/19 22 Active atenoloL-chlorthal idone (Tenoretic) 50-25 mg tablet Take 1 tablet [...] mg capsule 2 mg at bedtime. Active butalbital-acetami nophen-caff 50-325-40 mg tablet Take 1 tablet by mouth every 4 (four) hours if needed for headaches. Active bisacodyl (Dulcolax) 5 mg EC tablet 5 mg if needed each day. 04/11/19 23 Active hydrOXYzine pamoate (Vistaril) 25 mg capsule TAKE 1 CAPSULE BY MOUTH EVERY 8 HOURS NEEDED FOR ANXIETY 04/07/19 23 Active ondansetron ODT (Zofran-ODT) 4 mg disintegrating tablet DISSOLVE 1 TABLET ON THE TONGUE EVERY 8 HOURS NEEDED 03/11/19 23 Active oxyCODONE-acetamin ophen (Percocet) 5-325 mg tablet TAEK 1 TABLET BY MOUTH DAILY NEEDED 10/26/19 23 Active pregabalin (Lyrica) 200 mg capsule Take 200 mg by mouth two times daily. Active polymyxin B sulf-trimethoprim (Polytrim) ophthalmic solution INSTILL 1 DROP INTO AFFECTED EYE EVERY 4 HOURS FOR 7 DAYS 02/12/20 025 Discontinued multivit-min/iron/ FA/vit K/lut ([facility] WOMEN 50 PLUS ORAL) Take by mouth 1 (one) time each day. 025 Discontinued Active Problems Problem Noted Date Diagnosed Date Trigger finger, acquired 08/11/2024 Painful orthopaedic hardware 11/20/2023 Finger pain, right 11/05/2022 Arthritis 06/10/2022 Kidney stone 06/10/2022 Depressive disorder 06/10/2022 Dysphagia 06/10/2022 Epigastric pain 06/10/2022 Heartburn 06/10/2022 Hypertension 06/10/2022 Hypothyroidism 06/10/2022 Nausea 06/10/2022 Contracture of finger joint, right 05/06/2022 Overview (05/06/2022): Added automatically from request for surgery [id number] Encounters Date Type Department Care Team Description 09/09/[address] [place] [phone] Marguerite Ferreira MA 09/09/[address] [place] [address] Maria R Us MA 09/07/2024 Travel 08/11/2024 Orders Only [address] [place] [phone] Marguerite Ferreira MA Trigger finger, acquired 08/06/[address] [place] [address] Ashley Dorado RN [facility] 07/13/2024 9:10 AM EDT Office Visit [address] [place] [address] Vadim Dorado MD Contracture of finger joint, right (Primary Dx) from Last 3 Months Social History Tobacco [...] Recorded Patient Health Questionnaire-2 Score 0 07/13/2024 [facility] [place] [facility] - Occupational Stress [...] Description 09/20/2024 7:30 AM EDT Hospital Encounter [facility] Invasive Surgery [address] [place] [address] Vadim Dorado MD [address] [facility] [place] [phone] 09/20/2024 7:30 AM EDT - 09/20/2024 9:00 AM EDT Surgery [facility] Invasive Surgery [address] [place] [address] Vadim Dorado MD [address] [facility] [place] [address] LITTLE FINGER DIP FUSION 10/06/2024 3:50 PM EDT Office Visit [facility] [address] [place] [address] [place] [phone] Vadim Dorado MD [address] [facility] [place] [address] 10/19/2024 1:00 PM EDT Office Visit [facility] [address] [place] [address] Vadim Dorado MD [address] [place] [address] Scheduled Procedures Name Priority Associated Diagnoses Date/Ti me FUSION, DIP JOINT Trigger finger, acquired 09/20/2024 7:30 AM EDT RELEASE, TRIGGER FINGER Trigger finger, acquired 09/20/2024 7:30 AM EDT Health Maintenance Due Date Last Done Comments CT Colonography 1974 FIT-DNA 1974 FIT 1974 FOBT 1974 Sigmoidoscopy 1974 Hepatitis B Vaccines (1 of 3 - 19+ 3-dose series) 1993 Pap Smear 1995 Cervical Cancer Screening 2004 HPV/Cotest 2004 Mammogram 01/01/2021 01/01/2019 COVID-19 Vaccine ( season) 2024 12/23/2023, 01/23/2023, 03/28/2021, Additional history exists Zoster Vaccines (1 of 2) 2024 Influenza Vaccine (#1) 2024 , 01/06/2023, 12/28/2020, Additional history exists Depression Screening 07/13/2025 07/13/2024 Colonoscopy 10/12/2031 10/11/2021 Colorectal Cancer Screening 10/12/2031 Adult Tetanus 11/15/2032 11/15/2022 HIB Vaccines Aged Out No [...] this topic Medical Devices Implanted Type Area Supersonic Engineer Device Identifier Shelf Expiration Date Model / Serial / Lot K-Wire,#7,0.9x1 02mm - [id number] Implanted:Qty: 1 on 05/27/2022 by Vadim Dorado MD at [facility] Pin Right: Little Finger BRASSELER [id number] / / [employer] Plate Implanted:Qty: 1 on 11/25/2022 by Vadim Dorado MD at [facility] Right: Little Finger [employer] [id number] / / [employer] Raffy Screw Implanted:Qty: 1 on 11/25/2022 by Vadim Dorado MD at [facility] Right: Little Finger [employer] [id number] / / [employer] Raffy Screw Implanted:Qty: 1 on 11/25/2022 by Vadim Dorado MD at [facility] Right: Little Finger [employer] [id number] / / [employer] Lock Screw Implanted:Qty: 3 on 11/25/2022 by Vadim Dorado MD at [facility] Right: Little Finger [employer] [id number] / / [employer] Lock Screw Implanted:Qty: 1 on 11/25/2022 by Vadim Dorado MD at [facility] Right: Little Finger [employer] [id number] / / [facility] [employer] [address] [place] [id number] Care Teams Stations Superintendent Relationship Specialty Start Date End Date Ryan Pepper Jr., MD [facility] [address] PCP - General 05/27/22
--- OUTSIDE RECORDS SUMMARY | 2024-09-13 13:14 | XMS_ITS | Encounter Summary ---
Author Organization [facility] Address [address] [place] [address] Care Team Providers Care Vp Scientific Affairs Name Role Phone Dennis Pepper DO Primary Care Provider [phone] Dennis Pepper DO Unavailable [phone] Encounter Details Date Type Department Care Team (Late st Contact Info) Description 08/11/[address] [facility] [address] [facility] [address] [place] [phone] Dennis Pepper DO [address] [place] [address] Social History Tobacco Use Types Packs/Day Years [...] on filedocumented in this encounter Care Teams Vp Scientific Affairs Relationship Specialty Start Date End Date Dennis Pepper DO [address] [facility] [address] [place] [address] PCP - General Family Medicine 08/15/22 Dennis Pepper DO [address] [facility] [address] [place] [address] PCP - Medical [place] [employer] 02/07/23 03/09/99 documented as of this encounter
--- OUTSIDE RECORDS SUMMARY | 2024-09-13 13:14 | XMS_ITS | Encounter Summary ---
Author Organization [facility] Address [address] [place] [address] Care Team Providers Care Band Top Maker Name Role Phone Dennis Pepper DO Primary Care Provider [phone] Dennis Pepper DO Unavailable [phone] Reason for Visit * Reason Onset Date Comments Med Refill 09/07/2024 Encounter Details Date Type Department Care Team (Late st Contact Info) Description 09/07/2024 Refill [facility] [address] [facility] [address] [place] [phone] Mo Smith LPN [address] [facility] [address] [place] [address] Complex regional pain syndrome type 1, affecting unspecified site; Disorder of intervertebral disc of lumbar spine; Chronic pain syndrome; Neuropathy Social History Tobacco Use Types Packs/Day Years [...] as of this encounter Visit Diagnoses Diagnosis Complex regional pain syndrome type 1, affecting unspecified site Disorder of intervertebral disc of lumbar spine Chronic pain syndrome Neuropathy Mononeuritis of unspecified site documented in this encounter Care Teams Band Top Maker Relationship Specialty Start Date End Date Dennis Pepper DO [address] [place] [address] PCP - General Family Medicine 08/15/22 Dennis Pepper DO [address] [place] [address] PCP - Medical [place] [employer] 02/07/23 03/09/99 documented as of this encounter
--- OUTSIDE RECORDS SUMMARY | 2024-09-13 13:14 | XMS_ITS | Encounter Summary ---
Author Organization [facility] Address [address] [place] [address] Care Team Providers Care Director Of Hemophilia Name Role Phone Dennis Pepper DO Primary Care Provider [phone] Dennis Pepper DO Unavailable [phone] Encounter Details Date Type Department Care Team (Late st Contact Info) Description 06/07/2024 Abstract [facility] [address] [facility] [address] [place] [phone] Dennis Pepper DO [address] [place] [address] Social History Tobacco Use Types Packs/Day Years [...] in this encounter Care Teams Director Of Hemophilia Relationship Specialty Start Date End Date Dennis Pepper DO [address] [facility] [address] [place] [address] PCP - General Family Medicine 08/15/22 Dennis Pepper DO [address] [facility] [address] [place] [address] PCP - Medical [place] [employer] 02/07/23 03/09/99 documented as of this encounter
--- OUTSIDE RECORDS SUMMARY | 2024-09-13 13:14 | XMS_ITS | Encounter Summary ---
Author Organization [facility] Address [address] [place] [address] Phone Care Team Providers Care Cut Out Operator Name Role Phone Dennis Pepper DO Primary Care Provider [phone] Encounter Details Date Type Department Care Team (Late st Contact Info) Description 10/09/2022 Scanned Document [facility] [address] [place] [address] Conversion, Onbase Social History Tobacco Use Types [...] on filedocumented in this encounter Care Teams Cut Out Operator Relationship Specialty Start Date End Date Dennis Ppeper DO [address] [place] [address] PCP - General 10/25/16 documented as of this encounter
--- OUTSIDE RECORDS SUMMARY | 2024-09-13 13:14 | XMS_ITS | Encounter Summary ---
Author Organization [facility] Address [address] [facility] [place] [address] Care Team Providers Care Training Intern Name Role Phone Dennis Pepper DO Primary Care Provider [phone] Dennis Pepper DO Unavailable [phone] Encounter Details Date Type Department Care Team (Late st Contact Info) Description 04/29/2023 Orders Only [facility] [address] [facility] [address] [place] [phone] A, Unknown Practice [address] [place], [place] [phone] Social History Tobacco Use Types Packs/Day Years [...] on filedocumented in this encounter Care Teams Training Intern Relationship Specialty Start Date End Date Dennis Pepper DO [address] [place] [address] PCP - General Family Medicine 08/15/22 Dennis Pepper DO [address] [place] [address] PCP - Medical [place] [employer] 02/07/23 03/09/99 documented as of this encounter
--- OUTSIDE RECORDS SUMMARY | 2024-09-13 13:14 | XMS_ITS | Encounter Summary ---
Author Organization [facility] Address [address] [place] [address] Care Team Providers Care Apartment Maintenance Manager Name Role Phone Dennis Pepper DO Primary Care Provider [phone] Dennis Pepper DO Unavailable [phone] Encounter Details Date Type Department Care Team (Late st Contact Info) Description 02/12/2024 Abstract [facility] [address] [facility] [address] [place] [phone] Dennis Pepper DO [address] [place] [address] Social History Tobacco Use Types Packs/Day Years [...] on filedocumented in this encounter Care Teams Apartment Maintenance Manager Relationship Specialty Start Date End Date Dennis Pepper DO [address] [facility] [address] [place] [address] PCP - General Family Medicine 08/15/22 Dennis Pepper DO [address] [facility] [address] [place] [address] PCP - Medical [place] [employer] 02/07/23 03/09/99 documented as of this encounter
--- NOTE | 2024-09-13 13:16 | MR_ITS ---
The [address] [address] Patient Name: DEANNA LOPEZ MRN: [id number] date: 1975 Sex: F Assigned Patient Location: MRI Current Patient Location: PM Accession/Order Number: [id number] Exam Date: 09/13/2024 19:31 Report Date: 09/13/2024 19:35 At the request of: IRAIDA HASSAN NP Procedure: MR lumbar spine wo con MR lumbar spine wo con 09/13/2024 2:55 PM SIGNS AND SYMPTOMS: ^Spinal stenosis, lumbar region with neurogenic claudication PROTOCOL: Multiplanar multisequence MR images of the lumbar spine without IV contrast COMPARISON: None. FINDINGS: The bones of the lumbar spine are in anatomic alignment. There is preservation of vertebral body heights. There is mild intervertebral disc height loss at L4-5 and L5-S1. The marrow signal is within normal limits. The conus terminates at the mid L1 vertebral body level. No epidural or paraspinous fluid collection is appreciated. At T12-L1: There is a normal disc, central canal, and neural foramen. At L1-L2: There is a normal disc, central canal, and neural foramen. At L2-L3: There is a normal disc, central canal, and neural foramen. At L3-L4: There is a normal disc, central canal, and neural foramen. At L4-L5: Facet degenerative changes are present with a mild broad-based disc bulge. There is mild right neural foraminal narrowing without spinal canal narrowing. At L5-S1: There is a broad-based disc bulge with a focal left central disc protrusion. There is minimal spinal canal narrowing with mild right and moderate left neural foraminal narrowing. MR/MR lumbar spine wo con IMPRESSION: At L4-L5: Facet degenerative changes are present with a mild broad-based disc bulge. There is mild right neural foraminal narrowing without spinal canal narrowing. At L5-S1: There is a broad-based disc bulge with a focal left central disc protrusion. There is minimal spinal canal narrowing with mild right and moderate left neural foraminal narrowing. Impression dictated by: Davide Combs M.D. 09/13/2024 7:35 PM Dictation Location: [id number] Electronically authenticated by: [id number] Y Date: 09/13/2024 19:35
== END 2024-09-13 13:13 | disposition home or self-care (01) ==
LOC: MRI 13:12
PROVIDERS: PCP Family Medicine; Visit Provider Nurse Practitioner
DX: M48.062 Spinal stenosis, lumbar region with neurogenic claudication (principal); M51.369 Other intervertebral disc degeneration, lumbar region without mention of lumbar back pain or lower extremity pain
CPT/HCPCS: 72148

== ENCOUNTER 2024-09-23 12:58 | Outpatient (OUT) | payer OTHER, SELFPAY ==
--- NOTE | 2024-09-23 13:24 | PM.CN ---
Consult Note: HPI Data of Consult Patient: known to practice within the last 3 years Requesting Physician: An Reynoso NP Primary Care Provider: Ryan ORTIZ Consult Narrative Reason for consult: f/u Narrative: Tasneem Camarillo a pleasant 49 year old female presents for evaluation of low back and SIJ pain. longstanding hx of low back and SIJ pain secondary to lumbar spondylosis and sacroiliitis. pt has failed to benefit from > 6 weeks of PT and provider guided HEP, heat, ice, tylenol, NSAIDs. recently underwent left SIJ injection with >50% improvement ongoing. pt reports low back pain 5/10 throbbing pressure increasing to 10/10 with mopping, sweeping, standing, walking, housework. Pain improved with heat, lying, and sitting down. utilizes lyrica 200mg BID, percocet 5-325mg daily-BID prn for moderate to severe pain, zanaflex, oxaprozin prn without side effects. recently completed lumbar MRI with results below. cc:: CC: An Reynoso NP Review of Systems ROS Musculoskeletal Reports: back pain and extremity pain PFSH PFSH Social History Smoking status: Never smoker Meds Home Medications and Allergies Home Medications �Medication �Instructions �Recorded �Confirmed �Type atenolol 50 mg-chlorthalidone 25 1 tab PO DAILY 08/12/22 08/09/24 History mg tablet kdeeiblxnf-qmpcywmaemtzq-dssu PO .Q4 08/12/22 History lamotrigine 200 mg tablet 200 mg PO DAILY 08/12/22 08/09/24 History ondansetron 4 mg disintegrating 4 mg PO Q6H 08/12/22 08/09/24 History tablet oxaprozin 600 mg tablet 600 mg PO BID 08/12/22 08/09/24 History oxycodone-acetaminophen 5 mg-325 1 tab PO DAILY 08/12/22 08/09/24 History mg tablet tizanidine 4 mg tablet 4 mg PO .QHS 08/12/22 08/09/24 History naloxone 4 mg/actuation nasal 4 mg intranasal Q3M PRN opioid 02/13/23 08/09/24 Rx spray (Narcan) overdose #2 ea oxycodone-acetaminophen 5 mg-325 1 tab PO DAILY PRN pain #30 tabs 02/11/24 Rx mg tablet (Percocet) paroxetine HCl 30 mg tablet 60 mg PO 02/11/24 History pregabalin 200 mg capsule (Lyrica) 200 mg PO Q12H 02/11/24 08/09/24 History oxycodone-acetaminophen 5 mg-325 1 tab PO Q8H PRN pain #30 tabs 05/24/24 08/09/24 Rx mg tablet (Percocet) oxycodone-acetaminophen 5 mg-325 See Rx Instructions .Route 05/24/24 08/09/24 Rx mg tablet (Percocet) .COMPLEX PRN pain #30 tabs oxycodone-acetaminophen 5 mg-325 1 tab PO DAILY PRN pain #30 tabs 08/11/24 Rx mg tablet (Percocet) Allergies Allergy/AdvReac Type Severity Reaction Status Date / Time metoclopramide (From Reglan) Allergy Intermediate Anxiety Verified 08/09/24 09:18 sulfabenzamide Allergy Intermediate Rash Verified 08/09/24 09:18 sumatriptan (From Imitrex) Allergy Intermediate Anxiety Verified 08/09/24 09:18 amoxicillin (From Augmentin) Allergy Unknown Rash Verified 08/09/24 09:18 clavulanic acid (From Allergy Unknown Rash Verified 08/09/24 09:18 Augmentin) Exam Constitutional Documenting provider has reviewed patient's vital signs: yes Common normals: no apparent distress, oriented x3, healthy appearing, alert and well nourished General appearance: cooperative HENKY Common normals: normocephalic, hearing grossly normal bilaterally and moist oral mucous membranes Head and scalp: normocephalic Eye Common normals: PERRL Pupil: PERRL Neck & C-Spine Common normals: full ROM General: normal visual inspection Chest Common normals: inspection of chest normal Respiratory Common normals: normal respiratory effort, no retractions and no use of accessory muscles Back & Pelvis Lumbar spine/lower back: ROM limited, pain with ROM, lumbar spinal tenderness Lumbar spinal tenderness location: L3, L4 and L5, straight leg raise positive right and straight leg raise positive left Sacroiliac joints: SI joint(s) abnormal Other: positive facet loading strength 5/5 in BLE decreased sensation left L4,5,S1 bilateral sij positive rohan(patricks), gaenslens, thigh thrust, compression test Neuro Common normals: oriented x3 Sensorium/orientation: alert Psych Common normals: mental status grossly normal, thought process normal, cooperative, affect normal, speech normal and activity/motor behavior normal Speech: normal speech Thought process: normal thought process Results Imaging lumbar mri: Attestation: I have reviewed the pertinent imaging results. Radiologist's impression: The bones of the lumbar spine are in anatomic alignment. There is preservation of vertebral body heights. There is mild intervertebral disc height loss at L4-5 and L5-S1. The marrow signal is within normal limits. The conus terminates at the mid L1 vertebral body level. No epidural or paraspinous fluid collection is appreciated. At T12-L1: There is a normal disc, central canal, and neural foramen. At L1-L2: There is a normal disc, central canal, and neural foramen. At L2-L3: There is a normal disc, central canal, and neural foramen. At L3-L4: There is a normal disc, central canal, and neural foramen. At L4-L5: Facet degenerative changes are present with a mild broad-based disc bulge. There is mild right neural foraminal narrowing without spinal canal narrowing. At L5-S1: There is a broad-based disc bulge with a focal left central disc protrusion. There is minimal spinal canal narrowing with mild right and moderate left neural foraminal narrowing. Additional Findings Additional findings: If on a controlled substance or opioids, I have checked an [place] report on this patient and there are no aberrancies noted in the prescribing history.��If on a controlled substance or opioid a drug screen was completed and reviewed within the last year, and if there has not been a drug screen completed we ordered one today to monitor higher risk, state monitored pain medication use. As part of providing excellent, safe, comprehensive care, the following was completed at our patient's visit: 1. A medication reconciliation and review to ensure accurate knowledge of current/active medications, including asking our patients to inform us about any lquf-ueg-cxljfje medications or herbal remedies/nutritional supplements/alternative remedies. 2. A review to specifically ensure our patients have had annual screening for screening for depression, screening for tobacco use, and screening for unhealthy alcohol use. For concerning screenings had a discussion with the patient, provided patient education, and recommended follow-up with primary care provider when appropriate. If patient noted with a risk of falling, they received education on strength, gait, and balance training to prevent future risk of falling. Portions of this note may have been carried over from the previous visit and updated as appropriate. Please note this office utilizes paper charting in addition to the electronic medical record. A list of current medications, vitals, and PMH is available there as the clinical staff outside of myself do not have access to [employer] charting during the clinic day operations. As part of providing quality comprehensive care the current medications, vitals, and PMH were reviewed in the paper chart. Assessment and Plan Assessment and Plan (1) Lumbar stenosis with neurogenic claudication: Assessment and Plan: The patient has had over 3 months of moderate to severe low back and LLE pain with functional impairment and inadequate response to conservative care including NSAIDS (unless there are contraindication such as concurrent blood thinners), multiple oral or topical pain medications, and home exercise program/physical therapy.� Patient has completed >6 weeks of guided home exercise program and/or formal physical therapy program without relief of their symptoms.� The Oswestry Disability Index was completed, and the patient scored a 42%.� The patient noted the following:�� moderate to severe pain impacting adls, sitting, standing, sleeping, social life, travel We discussed the risks and benefits of the procedure with the patient, and we are NOT planning on using sedation as outlined in the guidelines from Medicare unless there is a documented reason that sedation would be strongly recommended.�� �The procedure will be completed with fluoroscopic guidance.� (2) Lumbar spondylosis: Assessment and Plan: defer bilateral L4-5 L5-S1 MBB #2 working towards rfa for facet mediated pain at this time (3) Sacroiliitis: (4) Chronic prescription opiate use: Plan proceed with left L4-5 L5-S1 TFESI under fluoroscopy for lumbar stenosis with NC continue current medications continue HEP as tolerated f/u 2 weeks after injection
== END 2024-09-23 12:59 | disposition home or self-care (01) ==
LOC: PM 12:58
PROVIDERS: PCP Family Medicine; Visit Provider Nurse Practitioner
DX: M48.062 Spinal stenosis, lumbar region with neurogenic claudication (principal); M47.816 Spondylosis without myelopathy or radiculopathy, lumbar region; M46.1 Sacroiliitis, not elsewhere classified; Z79.891 Long term (current) use of opiate analgesic
CPT/HCPCS: G0463

== ENCOUNTER 2024-12-31 14:39 | Emergency (ER) | payer SELFPAY ==
--- OUTSIDE RECORDS SUMMARY | 2024-12-21 09:36 | XMS_ITS | Encounter Summary ---
Author Organization [facility] Address [address] [place] [address] Care Team Providers Care Insurance Broker Name Role Phone Shantelle Masters MD, [facility] Primary Care Provider + Encounter Details DateTypeDepartmentCare Team (Latest Contact Info)Qlrpvwjjgbk51/14/2025 9:36 AM EDT - 12/21/2024 11:59 PM EDTHospital Encounter [facility] [address] [place] [address] [place] [address] Open nondisplaced fracture of proximal phalanx of right little finger, sequela Discharge Disposition: Home or Self Care (01) Social History Tobacco UseTypesPacks/DayYears UsedDateSmoking Tobacco: NeverSmokeless Tobacco: NeverAlcohol UseStandard Drinks/WeekCommentsNot Currently0 (1 standard drink = 0.6 oz pure alcohol)[facility] UtilitiesAnswerDate RecordedIn the past 12 months has the [employer], gas, oil, or water [employer] threatened to shut off services in your home?11/02/2024Humiliation, Afraid, Rape, and Kick questionnaireAnswerDate RecordedWithin the last year, have you been afraid of your partner or ex-partner?No07/13/2024Emotionally AbusedNot on file07/13/2024Physically Abused Not on file07/13/2024Sexually AbusedNot on file07/13/2024Overall Financial Resource Strain (CARDIA)AnswerDate RecordedHow hard is it for you to pay for the very basics like food, housing, medical care, and heating?Not very hard 02/26/2022HQ-2AnswerDate RecordedPatient Health Questionnaire-2 Score0 12/21/2024[facility], [facility] [place] of Occupational Health - Occupational Stress QuestionnaireAnswerDate RecordedDo you feel stress - tense, restless, nervous, or anxious, or unable to sleep at night because yourmind is troubled all the time - these days?Not at all02/26/2022RAPARE - TransportationAnswerDate RecordedIn the past 12 months, has lack of transportation kept you from medical appointments or from getting medications?No02/26/2022In the past 12 months, has lack of transportation kept you from meetings, work, or from getting things needed for daily living?No02/26/2022CommentsNoSex and Gender Information ValueDate RecordedSex Assigned at VseupKnxswn19/18/2023 6:50 AM EDTLegal Sex Bjwkdr0209/05/2021 11:53 PM EDTGender MtwnjhoiVgqneh92/18/2023 6:50 AM EDTSexual OrientationHeterosexual or Tlilqgja41/18/2023 6:50 AM EDTdocumented as of this encounter Functional Status * Pain Assessment TimerQuestionAnswerDate of AssessmentAuthorRestart Pain Assessment NvezbGke86/14/2025 9:00 AM Virgie Gilbert MA * QuestionAnswerDate of AssessmentAuthorPain JkwwvlmnRnks75/14/2025 9:00 AM EDVirgie Rolle MAPain ZbecwqxhwgaRcouo04/14/2025 9:00 AM Virgie Gilbert MAPain Qkamu787 9:00 AM Virgie Gilbert MA * Fall RiskQuestionAnswerDate of AssessmentAuthorWorried about fallin 12/21/2024 9:00 AM Virgie Gilbert MAOne or more falls in the last year:No 12/21/2024 9:00 AM Virgie Gilbert MAFeels unsteady when walkin 12/21/2024 9:00 AM Virgie Gilbert MA * Over the past 2 weeks, how often have you been bothered by any of the following problems?QuestionAnswerDate of AssessmentAuthorThoughts that you would be better off or hurting yourself in some wayNot at all12/21/2024 9:00 AM Virgie Gilbert MAPatient Health Questionnaire-9 Apwdv822 9:00 AM Virgie Gilbert MATrouble falling or staying asleep, or sleeping too muchNot at all12/21/2024 9:00 AM Virgie Gilbert MAFeeling tired or having little energyNot at all12/21/2024 9:00 AM Virgie Gilbert MAPoor appetite or overeatingNot at all12/21/2024 9:00 AM Virgie Gilbert MA Feeling bad about yourself - or that you are a failure or have let yourself or your family downNot at all12/21/2024 9:00 AM Virgie Gilbert MATrouble concentrating on things, such as reading the newspaper or watching television Not at all12/21/2024 9:00 AM Virgie Gilbert MAMoving or speaking so slowly that other people could have noticed? Or the opposite - being so fidgety or restless that you have been moving around a lot more than usual.Not at all 12/21/2024 9:00 AM Virgie Gilbert MA * Over the past 2 weeks, how often have you been bothered by any of the following problems?QuestionAnswerDate of AssessmentAuthorPHQ-9 not completed Other12/21/2024 9:00 AM Virgie Gilbert MALittle interest or pleasure in doing thingsNot at all12/21/2024 9:00 AM Virgie Gilbert MAFeeling down, depressed, or hopelessNot at all12/21/2024 9:00 AM Virgie Gilbert MA Patient Health Questionnaire-2 Mefof888 9:00 AM Virgie Gilbert MA * Pain AssessmentQuestionAnswerDate of AssessmentAuthorPain LocationHand 12/21/2024 9:00 AM Virgie Gilbert MAPain DcyzpdwcxgmHjkin57/14/2025 9:00 AM Virgie Gilbert MAPain Assessment0-101 9:00 AM Kwasi Gilbertra Kizzy Lyasi685 9:00 AM Virgie Gilbert MA documented as of this encounter Medications at Time of Discharge MedicationSigDispense QuantityRefillsLast FilledStart DateEnd Date atenoloL-chlorthalidone (Tenoretic) 50-25 mg tablet Take 1 tablet by mouth in the morning. bisacodyl (Dulcolax) 5 mg EC tablet 5 mg if needed each day.04/11/2022 osqnpdxcqd-zvdcnbhjazncm-vlxl 50-325-40 mg tablet Take 1 tablet by mouth every 4 (four) hours if needed for headaches. hydrOXYzine pamoate (Vistaril) 25 mg capsule TAKE 1 CAPSULE BY MOUTH EVERY 8 HOURS NEEDED FOR KZDCNJV6804/07/2022 lamoTRIgine (LaMICtal) 200 mg tablet Take 200 mg by mouth at bedtime. ondansetron (Zofran) 4 mg tablet Take 4 mg by mouth every 8 (eight) hours if needed.03/13/2021 ondansetron ODT (Zofran-ODT) 4 mg disintegrating tablet DISSOLVE 1 TABLET ON THE TONGUE EVERY 8 HOURS JMXRSN9003/11/2022 oxaprozin (Daypro) 600 mg tablet Take 600 mg by mouth two times daily. oxyCODONE-acetaminophen (Percocet) 5-325 mg tablet TAEK 1 TABLET BY MOUTH DAILY BIHFMG9810/25/2022 PARoxetine (Paxil) 30 mg tablet Take 60 mg by mouth in the morning. pregabalin (Lyrica) 200 mg capsule Take 200 mg by mouth two times daily. tiZANidine (Zanaflex) 4 mg capsule 2 mg at bedtime.documented as of this encounter Plan of Treatment DateTypeDepartmentCare Team (Latest Contact Info)Ehfdcgtmfqz70/13/2026 1:00 PM ESTOffice Visit [facility] [address] [place] [address] [place] [phone] Vadim Dorado MD [address] [place] [address] documented as of this encounter Procedures Procedure NamePriorityDate/TimeAssociated DiagnosisCommentsXR HAND 3+ VIEWS VBEZLXqavhee25/14/2025 9:45 AM EDT Open nondisplaced fracture of proximal phalanx of right little finger, sequela documented in this encounter Results * XR hand 3+ views right (12/21/2024 9:45 AM EDT)Anatomical RegionLaterality ModalityUpper Extremities, HandRightComputed RadiographySpecimen (Source) Anatomical Location / LateralityCollection Method / VolumeCollection Time Received Time12/21/2024 12:20 PM EDT Impressions 12/21/2024 12:23 PM EDT 1. Stable alignment and hardware without significant change. Electronically signed: AKBAR MADISON MD. Narrative 12/21/2024 12:23 PM EDT XR HAND 3+ VIEWS RIGHT 12/21/2024 9:37 AM CLINICAL INDICATIONS: Open Nondisplaced fracture of the proximal phalanx of the right little finger COMPARISON: 11/02/2024 FINDINGS: Fusion screw Across the DIP joint of the fifth finger. The PIP joint is fused. No change in hardware. No acute fractures. Procedure Note Akbar Madison MD - 12/21/2024 XR HAND 3+ VIEWS RIGHT 12/21/2024 9:37 AM CLINICAL INDICATIONS: Open Nondisplaced fracture of the proximal phalanxof the right little finger COMPARISON: 11/02/2024 FINDINGS: Fusion screw Across the DIP joint of the fifth finger. The PIP joint isfused. No change in hardware. No acute fractures. IMPRESSION: 1. Stable alignment and hardware without significant change. Electronically signed: AKBAR MADISON MD. Authorizing ProviderResult TypeResult StatusMartin Ave TANGIMG XR PROCEDURESFinal Result documented in this encounter Visit Diagnoses Diagnosis Open nondisplaced fracture of proximal phalanx of right little finger, sequela documented in this encounter Care Teams Team MemberRelationshipSpecialtyStart DateEnd Date Ryan Pepper Jr., MD [address] [facility]05/27/22documented as of this encounter
--- OUTSIDE RECORDS SUMMARY | 2024-12-21 09:40 | XMS_ITS | Encounter Summary ---
Author Organization [facility] Address [address] [place] [address] Care Team Providers Care Cover Mat Machine Operator Name Role Phone Shantelle Masters MD, [facility] Primary Care Provider + Reason for Visit * ReasonCommentsFollow-upWork Related InjuryPain Encounter Details DateTypeDepartmentCare Team (Latest Contact Info)Igpvxomwfel99/14/2025 9:40 AM EDTOffice Visit [facility] [address] [place] [address] [place] [phone] Vadim Goode MD [address] [place] [address] Open nondisplaced fracture of proximal phalanx of right little finger, sequela (Primary Dx) Social History Tobacco UseTypesPacks/DayYears UsedDateSmoking Tobacco: NeverSmokeless Tobacco: Never Tobacco Cessation:Counseling Given: Not Answered Alcohol UseStandard Drinks/WeekCommentsNot Currently0 (1 standard drink = 0.6 oz pure alcohol)[facility] UtilitiesAnswerDate RecordedIn the past 12 months has the [employer], gas, oil, or water [place] threatened to shut off services in your home?No11/02/2024Humiliation, Afraid, Rape, and Kick questionnaireAnswerDate RecordedWithin the last year, have you been afraid of your partner or ex-partner?No07/13/2024Emotionally AbusedNot on file07/13/2024Physically Abused Not on file07/13/2024Sexually AbusedNot on file07/13/2024Overall Financial Resource Strain (CARDIA)AnswerDate RecordedHow hard is it for you to pay for the very basics like food, housing, medical care, and heating?Not very hard 02/26/2022HQ-2AnswerDate RecordedPatient Health Questionnaire-2 Score0 12/21/2024[facility] [place] of Occupational Health - Occupational Stress QuestionnaireAnswerDate [...] and Gender Information ValueDate RecordedSex Assigned at LlmygQvkpnk57/18/2023 6:50 AM EDTLegal Sex Sxsrft8009/05/2021 11:53 PM EDTGender KlbimqsgNqswid95/18/2023 6:50 AM EDTSexual OrientationHeterosexual or Sozdubjx06/18/2023 6:50 AM EDTdocumented as of this encounter Last Filed Vital Signs Vital SignReadingTime TakenCommentsBlood Pressure--Pulse--Temperature-- Respiratory Rate--Oxygen Saturation--Inhaled Oxygen Concentration--Gqzcar81.6 kg (149 lb)12/21/2024 9:19 AM BAIZbsogo637.5 cm (5' 2 )12/21/2024 9:19 AM EDTBody Mass Index27.251 9:19 AM EDTdocumented in this encounter Functional Status * Pain Assessment TimerQuestionAnswerDate of AssessmentAuthorRestart Pain Assessment CkuldSjo15/14/2025 9:00 AM Virgie Gilbert MA * QuestionAnswerDate of AssessmentAuthorPain EhnylvifPcjs16/14/2025 9:00 AM Virgie Freeman MAPain OonxoeuivqcTzoxs58/14/2025 9:00 AM Virgie Gilbert MAPain Lfhcn281 9:00 AM Virgie Gilbert MA * Fall [...] 9:00 AM Virgie Gilbert MAPatient Health Questionnaire-9 Aovly489 9:00 AM Virgie Gilbert MATrouble falling or [...] doing thingsNot at all12/21/2024 9:00 AM Virgie Gilbert, MAFeeling down, depressed, or hopelessNot at all12/21/2024 9:00 AM Virgie Gilbert MA Patient Health Questionnaire-2 Adsgq645 9:00 AM Virgie Gilbert MA * Pain AssessmentQuestionAnswerDate of AssessmentAuthorPain LocationHand 12/21/2024 9:00 AM Virgie Gilbert MAPain QbptvksoshlZzhij25/14/2025 9:00 AM Virgie Gilbert MAPain Assessment0-101 9:00 AM Virgie Gilbert MAPain Dietv231 9:00 AM Virgie Gilbert MA documented as of this encounter Progress Notes * Vadim Goode MD - 12/21/2024 9:40 AM EDT Images from the original note were not included. Orthopedic Surgery 09/20/2024 Little Finger Dip Fusion - Right and Release, Trigger Finger - Right 12/21/24 Tasneem Camarillo is a 49 year old female here 3 months s/p the above procedure. She endorses some painwith gripping that is mainly in the 4th and 5th digits, which prevents her from holding onto things. There is also an electric, burning pain when it gets cold that travels from the wrist into the 4thand 5th digits. 11/02/24 Patient is a 49-year-old female presenting for postop follow-up 6 weeks status post small finger DIP fusion and release of right small trigger finger. Patient reports that her triggering is much improved however she is still continuing to have pain in the small finger that radiates along the ulnar border of the hand. Pain is unchanged since surgery. She denies any numbness or tingling in the hand. No other concerns today. 10/06/24 Tasneem Camarillo comes in for a post-operative visit after having a right SF DIP fusion and A1 release done on 09/20/2024. Today she is doing well and has no unexpected complaints. She was notified by her employer that she had been terminated yesterday. Physical Exam: The incision site is healed. There is no erythema, drainage or signs of infection. No tenderness to palpation. Sensation is present to light touch. Range of motion is appropriate for this time. Imagin views x-ray of the right fingers taken in clinic today 12/21/2024 demonstrate appropriate alignment and appearance of hardware. DIP appears fully fused with callus formation. Assessment: Tasneem Camarillo is a 49 y.o. year old female presenting for postop follow-up 3 motnhs status post small finger DIP fusion and release of right small trigger finger. - Discussed clinical and imaging findings with the patient. - Patient is doing much better overall, although fusion of the 5th digit has restrained her abilityto hold. Because of this, the patient will have a 5 pound maximum weight restriction of the R hand. - Follow-up in clinic in 3 months. No C9's need to be submitted from this visit. Patient is not working at this time. Update work restrictions: 5 pound weight restriction R hand. No additional allowances need to be added to the claim at this time Renzo Elliott MS4 I was physically present with the medical student. I have personally performed (or re-performed) the physical exam and medical decision making for the patient. I personally verified the medical student's documentation. I made pertinent changes as necessary to ensure accurate documentation. Additional Notes/Findings: Her x-ray today looks good. The DIP joint is fused. She has no significant tenderness or pain with stress at that joint. I talked her about her work situation. She is applying for disability. With respect to her right hand, I think it would be reasonable to give her a 5 pound limit. She does not feel as though she can return to work so I will leave the right hand with a5 lb limit and see her back in 3 months. documented in this encounter Miscellaneous Notes * Addendum Note - Vadim Goode MD - 12/21/2024 9:40 AM EDTAddended by: VADIM GOODE on: 12/27/2024 10:48 AM Modules accepted: Level of Service documented in this encounter Plan of Treatment DateTypeDepartmentCare Team (Latest Contact Info)Wiswrsmlbyt40/13/2026 1:00 PM ESTOffice Visit [facility] [address] [place] [address] [place] [phone] Vadim Goode MD [address] [facility] [place] [phone] documented as of this encounter Results * XR hand 3+ [...] of proximal phalanx of right little finger, sequela- Primary Open nondisplaced fracture of proximal phalanx of right little finger, sequela documented in this encounter Care Teams Team MemberRelationshipSpecialtyStart DateEnd Date Ryan Pepper Jr., MD [address] PCP - General05/27/22documented as of this encounter
[2024-12-31 14:46] VITALS: BP 146/75; PULSE 61; TEMP 36.8; O2SAT 99; BMI 27.3
[2024-12-31] MEDS: HYDROMORPHONE HCL 1 MG/ML CARTRIDGE IM (15:16)
[2024-12-31] MEDS: LIDOCAINE 5% PATCH 1 PATCH TOPICAL (15:17)
[2024-12-31] MEDS: KETOROLAC TROMETHAMINE 30 MG/ML VIAL 15 MG IM (15:17)
--- OUTSIDE RECORDS SUMMARY | 2024-12-31 15:20 | XMS_ITS | Clinical Summary ---
Author Organization [facility] Address [address] [place] [address] Care Team Providers Care Social Sciences Instructor Name Role Phone Dennis Pepper Primary Care Provider + Malina Castaneda CNP Unavailable [phone] Allergies Active AllergyReactionsCriticalityNoted OtgvVzwuhiysNxfdpksrdabNylr39/05/2024 MetoclopramideOther: See Comments,Hives,GI Upset,OvxhrssVfyxpf40/26/2016 Palpitations Sulfa (Sulfonamide Antibiotics)Hives,GI Upset,Other: See Comments,UnknownMedium 01/03/2016SumatriptanOther: See Comments,Unknown,YbdgArybny21/21/2021 Medications MedicationSigDispense QuantityRefillsLast FilledStart DateEnd DateStatus enteric contrast (will be provided with radiology test) Indications:Epigastric abdominal painFor CT Chest Abdomen WO order Administer, As Directed One Time Only, via Oral, Rectal, both Oral and Rectal, Enteric Tube, Stoma or Indwelling Catheter, Enteric Contrast as designated per enteric cont rast guidelines 1 Each 05/19/2023ctive Additional Information Patient not taking.Reason: Discontinued by Patient, Reported on 06/25/2023 atenolol-chlorthalidone (TENORETIC) 50-25 mg per tablet Take 1 tablet by mouth once daily.10/05/2021ctive acetaminophen 325 mg-caffeine 40 mg-butalbital 50 mg (FIORICET) per tablet Take 1 tablet by mouth every 4 hours as needed.Active esomeprazole (NEXIUM) 40 mg capsule Take 1 capsule by mouth every afternoon.05/13/2023ctive famotidine (PEPCID) 20 mg tablet Take 20 mg by mouth two times a day.04/23/2023ctive hydrOXYzine pamoate (VISTARIL) 25 mg capsule Take 25 mg by mouth three times a day as needed.10/05/2021ctive lamoTRIgine (LAMICTAL) 200 mg tablet Take 200 mg by mouth two times a day.10/08/2016Active ondansetron orally disintegrating (ZOFRAN ODT) 4 mg disintegrating tablet Take 4 mg by mouth every 8 hours as needed.12/01/2017Active oxaprozin (DAYPRO) 600 mg tablet Take 600 mg by mouth two times a day.08/12/2022ctive oxyCODONE-acetaminophen (PERCOCET) 5-325 mg tablet Take 1-2 tablets by mouth every 6 hours as needed.05/22/2023ctive PARoxetine (PAXIL) 30 mg tablet Take 60 mg by mouth once daily.10/08/2016Active pregabalin (LYRICA) 150 mg capsule Take 1 tablet by mouth once daily.05/19/2022ctive tiZANidine HCl (ZANAFLEX) 4 mg capsule Take 4 mg by mouth three times a day.Active Active Problems ProblemNoted DateDiagnosed DateS/P Jluis fundoplication (without gastrostomy tube) sesnseqax61/24/2024HTN (hypertension)07/02/2023Gastroesophageal reflux disease without peudqisabip30/29/202404/8080Qaiztaazvyhfcl44/03/2023 07/02/20238278Akordg35 Social History Tobacco UseTypesPacks/DayYears UsedDateSmoking Tobacco: NeverPassive Smoke Exposure: PastSmokeless Tobacco: Never Tobacco Cessation:Counseling Given: Not Answered Alcohol UseStandard Drinks/WeekCommentsNot Currently0 (1 standard drink = 0.6 oz pure alcohol)Area Deprivation IndexAnswerDate RecordedNational Score (1-100), lower number is lower nsit694006/25/2023State Score (1-10), lower number is lower hfio43006/25/2023ata from: https://www.neighborhoodatlas.medicine.[facility].edu/. Last address used for cz[address]/25/2023CommentsNoSex and Gender InformationValueDate RecordedSex Assigned at BirthNot on fileLegal Sex Vwggnu9105/14/2023 11:16 PM ESTGender IdentityNot on fileSexual OrientationNot on file Last Filed Vital Signs Vital SignReadingTime TakenCommentsBlood Ryzpdfcs299/61007/02/2023 11:24 AM EDT Wzwnl9567/24/2024 11:24 AM RBTUgknknyaqdo12.6 ??C (97.8 ??F)07/02/2023 11:24 AM EDTRespiratory Jblv728307/02/2023 9:40 AM EDTOxygen Usthmehhso468%07/02/2023 11:24 AM EDTInhaled Oxygen Concentration--Ylfuro12.9 kg (140 lb 14.4 oz)07/02/2023 11:24 AM VCIUlrbmd914.5 cm (5' 2 )07/02/2023 11:24 AM EDTBody Mass Index25.77 07/02/2023 11:24 AM EDT Plan of Treatment Health MaintenanceDue DateLast DoneCommentsAnnual PCP Team Chronic Disease Visit 1992Anxiety Aonojxgbh47/28/1992Depression Sxzolrhjk30/28/1992HIV Screening 1992Hepatitis C Ydbkstznw10/28/1992Hepatitis B Vaccine (1 of 3 - 19+ 3- dose series)1993Cervical Cancer Jtykzeltv27/28/1995CT Colonography 2019Cologuard (FIT-DNA)03/06/20190826Jpdtekfhdlm77/28/2019Colorectal Cancer Jjoxhjyfe15/28/2019Diabetes Dkubgsrab18/28/2019Fecal Occult Blood2019Lipid Temxzbmpb51/28/3911Soonbroszvkbv87/28/2019Mammogram Ibyvoutwk62/24/2020 12/31/2018Pneumococcal Vaccine: 50+ (1 of 1 - PCV)2024Shingrix Vaccine (1 of 2)4Covid-19 Vaccine (4 - 2024- season)/, 03/28/2021, 06/06/2020Influenza Vaccine (#1)/, 12/28/2020, 01/07/2020, Additional history existsDTaP,Tdap,Td Vaccine (2 - Td or Tdap) Medical Devices ImplantedTypeAreaManufacturerDevice IdentifierShelf Expiration DateModel / Serial / LotPlatePlateRight: Bone - FingerDescription:Right fifth fingerScrew ScrewRight: Bone - FingerDescription:Right fifth finger Insurance Care Teams Team MemberRelationshipSpecialtyStart DateEnd Date Dennis Pepper DO [address] [phone] PCP - GeneralFamily Medicine05/19/23 Malina Castaneda, CLINICAL BIOSTATISTICIAN [address] [place], [place] [address] [address] ReferringMercyone Cedar Falls Medical Centerly Medicine05/19/23
--- OUTSIDE RECORDS SUMMARY | 2024-12-31 15:20 | XMS_ITS | Clinical Summary ---
Author Organization [facility] Address [address] [place] [address] Phone Care Team Providers Care Public Records Researcher Name Role Phone JamisonDennis altamirano Primary Care Provider [phone] Allergies Active AllergyReactionsCriticalityNoted DateCommentsMetoclopramide HclUnknown 12/15/2022Sulfa (Sulfonamide Antibiotics)Wknqbgb1412/15/2022SumatriptanUnknown 12/15/2022 Medications MedicationSigDispense QuantityRefillsLast FilledStart DateEnd DateStatus alendronate (Fosamax) 40 mg tablet Take 1 tablet (40 mg) by mouth once daily.10/25/2016Active lamoTRIgine (LaMICtal) 200 mg tablet Take 1 tablet (200 mg) by mouth.10/08/2016Active PARoxetine (Paxil) 30 mg tablet Take 2 tablets (60 mg) by mouth once daily.10/08/2016Active topiramate (Topamax) 25 mg tablet Take 1 tablet (25 mg) by mouth 2 times a day. 25mg tabs titrate to 100mg bid per ymcxehec79/18/2017Active Active Problems ProblemNoted DateDiagnosed DateComplex regional pain syndrome type 1 of left lower uuplktlkf12/08/2023islocation of feuaey6912/15/2022Joint contracture 12/15/2022 Immunizations ImmunizationAdministration DatesNext DueFlu vaccine (IIV4), preservative free *Check age/dose*01/07/2020Flu vaccine, trivalent, preservative free, no egg protein, age 6 months or greater (Flucelvax)12/25/2018Influenza, injectable, qvjgqjtjhocm36/21/2021Tdap vaccine, age 7 year and older (BOOSTRIX, ADACEL) 11/15/2022 Family History Medical HistoryRelationNameCommentsColon cancerMotherDiabetesMotherRelationName StatusCommentsMother Social History Tobacco UseTypesPacks/DayYears UsedDateSmoking Tobacco: Never Assessed Tobacco Cessation:Counseling Given: Not Answered CommentsUnknownSex and Gender InformationValueDate RecordedSex Assigned at BirthNot on fileLegal FaaFmisuh97/26/2022 4:45 PM ESTGender IdentityNot on fileSexual OrientationNot on file Last Filed Vital Signs Vital SignReadingTime TakenCommentsBlood Fzdmabdg648/8608/04/2020 7:15 AM EDT Mpmtk521508/04/2020 7:15 AM ZEWCfpthcacrcf94 ??C (96.8 ??F)08/04/2020 7:15 AM EDT Respiratory Mjzy715008/04/2020 7:15 AM EDTOxygen Saturation--Inhaled Oxygen Concentration--Ododzi30 kg (130 lb)07/08/2022 2:44 PM NGDGjfdmu619.5 cm (5' 2 ) 07/08/2022 2:44 PM EDTBody Mass Index23.78007/08/2022 2:44 PM EDT Plan of Treatment Health MaintenanceDue DateLast DoneCommentsCT Ogrdycqyhbqi1974Colonoscopy 1974Colorectal Cancer Bmtpbuzii1974FIT-DNA (Cologuard)1974FIT 1974HIV Jthkeilhy1974Lipid Panel1974 0481Ztbfsoeswhvqg1974 Yearly Adult Vqwkrkbu1974MMR Vaccines (1 of 1 - Standard series)1975 Diabetes Idnmzhong29/28/1992Hepatitis C Aixmpgtdr79/28/1992Hepatitis B Vaccines (1 of 3 - 19+ 3-dose series)1993Cervical Cancer Dpbfpyqgm39/28/1995 HPV/Lruhgp9903/06/1995Pap Smear03/06/19959270Sjorechtt77/28/2014Pneumococcal Vaccine (1 of 1 - PCV)2024Zoster Vaccines (1 of 2)2024Influenza Vaccine (#1) /, 01/07/2020, 12/25/2018COVID-19 Vaccine (3 - season)/, 1DTaP/Tdap/Td Vaccines (2 - Td or Tdap) /10/2022HIB VaccinesAged OutNo longer eligible based on patient's age to complete this topicHPV VaccinesAged OutNo longer eligible based on patient's age to complete this topicHepatitis A VaccinesAged OutNo longer eligible based on patient's age to complete this topicIPV VaccinesAged OutNo longer eligible based on patient's age to complete this topicMeningococcal VaccineAged OutNo longer eligible based on patient's age to complete this topic Rotavirus VaccinesAged OutNo longer eligible based on patient's age to complete this topic Care Teams Team MemberRelationshipSpecialtyStart DateEnd Date Dennis Pepper DO [address] [place] [address] PCP - [facility]10/25/16
--- OUTSIDE RECORDS SUMMARY | 2024-12-31 15:20 | XMS_ITS | Clinical Summary ---
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 Name Role Phone Shantelle Masters MD, [facility] Primary Care Provider + Allergies Active AllergyReactionsCriticalityNoted DateCommentsAmoxicillin-Pot Clavulanate Rash,KmbvoOmg28/21/1441XhvzomkjmoahhkbsYkawm89/06/2025MetoclopramideHives,Nausea And Vomiting,Unknown,EciwkczTnz58/21/2021 Palpitations Metoclopramide MhwQmyjhfyFyf09/13/2023Sulfa (Sulfonamide Antibiotics)Unknown, Hives,Nausea And MfmeinduTcx23/15/2022umatriptanAnxiety,Unknown,Other, Palpitations,DqqtIgv9712/28/2020 Medications MedicationSigDispense QuantityRefillsLast FilledStart DateEnd DateStatus ondansetron (Zofran) 4 mg tablet Take 4 mg by mouth every 8 (eight) hours if needed.03/13/2021ctive atenoloL-chlorthalidone (Tenoretic) 50-25 mg tablet Take 1 tablet by mouth in the morning.Active PARoxetine (Paxil) 30 mg tablet Take 60 mg by mouth in the morning.Active lamoTRIgine (LaMICtal) 200 mg tablet Take 200 mg by mouth at bedtime.Active oxaprozin (Daypro) 600 mg tablet Take 600 mg by mouth two times daily.Active tiZANidine (Zanaflex) 4 mg capsule 2 mg at bedtime.Active tzuhxvjifk-guhmpkyykjpns-gfxg 50-325-40 mg tablet Take 1 tablet by mouth every 4 (four) hours if needed for headaches.Active bisacodyl (Dulcolax) 5 mg EC tablet 5 mg if needed each day.04/11/2022ctive hydrOXYzine pamoate (Vistaril) 25 mg capsule TAKE 1 CAPSULE BY MOUTH EVERY 8 HOURS NEEDED FOR FSNONZN4704/07/2022ctive ondansetron ODT (Zofran-ODT) 4 mg disintegrating tablet DISSOLVE 1 TABLET ON THE TONGUE EVERY 8 HOURS QJSDVS9203/11/2022ctive oxyCODONE-acetaminophen (Percocet) 5-325 mg tablet TAEK 1 TABLET BY MOUTH DAILY GCDHPL6910/25/2022ctive pregabalin (Lyrica) 200 mg capsule Take 200 mg by mouth two times daily.Active Active Problems ProblemNoted DateDiagnosed DateTrigger finger, ljdtrlpy60/04/2025 Assessment & Plan (09/20/2024 6:38 AM EDT): No associated orders from this encounter found during lookback period of 72 hours. Painful orthopaedic zoslbxyd37/12/2024Finger pain, right11/05/2022rthritis 06/10/2022idney stone06/10/2022epressive /03/4109Xwjrxctpq44/03/2023 Epigastric pain06/10/20224652Axznxylkq99/03/1694Diiqnbcsdlcw28/03/2023Hypothyroidism 06/10/20226037Uuaqiu74/03/2023ontracture of finger joint, right05/06/2022 Overview (05/06/2022): Added automatically from request for surgery [id number] Encounters DateTypeDepartmentCare GpenAlmukfukuwm25/14/2025 9:40 AM EDTOffice Visit [facility] [address] [place] [address] [place] [address] Vadim Dorado MD Open nondisplaced fracture of proximal phalanx of right little finger, sequela (Primary Dx)12/21/2024 9:36 AM EDT - 12/21/2024 11:59 PM EDTHospital Encounter [facility] [address] [place] [address] [place] [address] Open nondisplaced fracture of proximal phalanx of right little finger, sequela Discharge Disposition: Home or Self Care (01)11/02/2024 1:10 PM EDTOffice Visit [address] [place] [address] Vadim Dorado MD Open nondisplaced fracture of proximal phalanx of right little finger, sequela (Primary Dx)11/02/2024 12:26 PM EDT - 11/02/2024 11:59 PM EDTHospital Encounter [facility] [address] [place] [address] [place] [address] Open nondisplaced fracture of proximal phalanx of right little finger, sequela Discharge Disposition: Home or Self Care ()10/11/2024Telephone [address] [place] [address] Vadim Dorado MD 10/11/2024Telephone [address] [place] [address] Vadim Dorado MD WORK EJDYXHIIYRGB06/30/2025 3:50 PM EDTOffice Visit [address] [place] [address] Vadim Dorado MD Open nondisplaced fracture of proximal phalanx of right little finger, sequela (Primary Dx); Contracture of finger joint, rightfrom Last 3 Months Social History Tobacco UseTypesPacks/DayYears UsedDateSmoking Tobacco: NeverSmokeless Tobacco: Never Tobacco Cessation:Counseling Given: Not Answered Alcohol UseStandard Drinks/WeekCommentsNot Currently0 (1 standard drink = 0.6 oz pure alcohol)C UtilitiesAnswerDate RecordedIn the past 12 months has the electric, gas, oil, or water company threatened to shut off services in your home?No08/26/2025Humiliation, Afraid, Rape, and Kick questionnaireAnswerDate RecordedWithin the last year, have you been afraid of your partner or ex-partner?No07/13/2024Emotionally AbusedNot on file07/13/2024Physically Abused Not on file07/13/2024Sexually AbusedNot on file07/13/2024Overall Financial Resource Strain (CARDIA)AnswerDate RecordedHow hard is it for you to pay for the very basics like food, housing, medical care, and heating?Not very hard 02/26/2022HQ-2AnswerDate RecordedPatient Health Questionnaire-2 Score0 12/21/2024Finalta [facility] [place] [facility] - Occupational Stress QuestionnaireAnswerDate [...] and Gender Information ValueDate RecordedSex Assigned at XpjqrMrwmuf34/18/2023 6:50 AM EDTLegal Sex Qzctec0709/05/2021 11:53 PM EDTGender ZrnxamzpNhrewu66/18/2023 6:50 AM EDTSexual OrientationHeterosexual or Iehtuutr73/18/2023 6:50 AM EDT Last Filed Vital Signs Vital SignReadingTime TakenCommentsBlood Mjkpegkf138/7507 9:15 AM EDT Svmzn307309/20/2024 9:15 AM UOQQujohyikqwj17.2 ??C (97.2 ??F)09/20/2024 9:15 AM EDTRespiratory Rado104009/20/2024 9:15 AM EDTOxygen Wonideigcz846%09/20/2024 9:15 AM EDTInhaled Oxygen Concentration--Lpnpnw04.6 kg (149 lb)12/21/2024 9:19 AM EDT Yzqohd744.5 cm (5' 2 )12/21/2024 9:19 AM EDTBody Mass Index27.251 9:19 AM EDT Plan of Treatment DateTypeDepartmentCare Team (Latest Contact Info)Fklyxuxhzcg51/13/2026 1:00 PM ESTOffice Visit [facility] [address] [place] [address] Vadim Dorado MD [address] [place] [address] Health MaintenanceDue DateLast DoneCommentsCT Ardqvqphixpl1974FIT-DNA 1974FIT1974FOBT1974 2527Ytijoglvtewol1974Hepatitis B Vaccines (1 of 3 - 19+ 3-dose series)1993Pap Smear1995Cervical Cancer Ugzvtscuf14/28/2004HPV/Zzvyjy2603/06/20044357Iluohslza85/25/202110/Zoster Vaccines (1 of 2)4COVID-19 Vaccine ( season)2024 12/23/2023, 01/23/2023, 03/28/2021, Additional history existsInfluenza Vaccine (#1)/, 01/06/2023, 12/28/2020, Additional history exists Depression Qmbeblfcc19/5662Gaygfwfzdds54/04/203208/06/2021 Colorectal Cancer Wzeiziuto68/04/2032dult Lqxpozi13/08//10/2022HIB VaccinesAged OutNo longer eligible based on patient's age to complete this topic HPV VaccinesAged OutNo longer eligible based on patient's age to complete this topicIPV VaccinesAged OutNo longer eligible based on patient's age to complete this topicMeningococcal B VaccineAged OutNo longer eligible based on patient's age to complete this topicMeningococcal VaccineAged OutNo longer eligible based on patient's age to complete this topicPneumococcal Vaccine: Pediatrics (0 to 5 Years) and At-Risk Patients (6 to 64 Years)Aged OutNo longer eligible based on patient's age to complete this topicRotavirus VaccinesAged OutNo longer eligible based on patient's age to complete this topic Medical Devices ImplantedTypeAreaManufacturerDevice IdentifierShelf Expiration DateModel / Serial / LotK-Wire,#7,[id number] - [id number] Implanted:Qty: 1 on 05/27/2022 by [facility] Ling [id number] / / 1.7x20mm Headless Cannulated Screw, Long Threaded Implanted:Qty: 1 on 09/20/2024 by [facility]: Ling FingerMEDARTISA-5281.20/1 / / [employer] Plate Implanted:Qty: 1 on 11/25/2022 by [facility] Ling FingerMEDARTISA-4350.23 / / [employer] Raffy Screw Implanted:Qty: 1 on 11/25/2022 by [facility]: Ling EkrumzZQAMMSSYR-9118-09 / / [employer] Raffy Screw Implanted:Qty: 1 on 11/25/2022 by [facility]: Ling QmhmmqUTXKPZJKF-6456-71 / / [employer] Lock Screw Implanted:Qty: 3 on 11/25/2022 by [facility]: Ling FingerMEDARTISA-5250.06 / / [employer] Lock Screw Implanted:Qty: 1 on 11/25/2022 by [facility]: Ling AgudeloDdxyhlIGABBTSOL-5478-98 / / Procedures Procedure NamePriorityDate/TimeAssociated DiagnosisCommentsXR HAND 3+ VIEWS ASFQKWcoguhg63/14/2025 9:45 AM EDT Open nondisplaced fracture of proximal phalanx of right little finger, sequela XR FINGERS 2+ VIEWS ZSTRGKwngofi49/26/2025 12:41 PM EDT Open nondisplaced fracture of proximal phalanx of right little finger, sequela from Last 3 Months Results * XR hand 3+ views right [...] signed: AKBAR MADISON MD. Authorizing ProviderResult TypeResult StatusVadim Dorado MDPARKSIDE [facility] [place] XR PROCEDURESFinal Result * XR fingers 2+ views right (11/02/2024 12:41 PM EDT)Anatomical RegionLaterality ModalityUpper Extremities, FingersLeftComputed RadiographySpecimen (Source) Anatomical Location / LateralityCollection Method / VolumeCollection Time Received Time11/03/2024 6:22 AM EDT Impressions 11/03/2024 6:23 AM EDT Single cannulated screw is now appreciated in the fifth digit distally. The plain screw fixation has been removed. The single screw traverses the DIP joint. Prior fusion of the PIP joint. No acute complication is seen Electronically signed: Angeline Childers. Narrative 11/03/2024 6:23 AM EDT X-ray fingers 2+ views right. History of open fracture. Hardware. Follow-up COMPARISON: 11/05/2023 Procedure Note Angeline Childers MD - 11/03/2024 X-ray fingers 2+ views right. History of open fracture. Hardware. Follow-up COMPARISON: 11/05/2023 IMPRESSION: Single cannulated screw is now appreciated in the fifth digit distally.The plain screw fixation has been removed. The single screw traverses the DIPjoint. Prior fusion of the PIP joint. No acute complication is seen Electronically signed: Angeline Childers. Authorizing ProviderResult TypeResult StatusMarcesar Dorado MDIMG XR PROCEDURESFinal Result from Last 3 Months Insurance Care Teams Team MemberRelationshipSpecialtyStart DateEnd Date Ryan Pepper Jr., MD [address] PCP - General05/27/22
--- OUTSIDE RECORDS SUMMARY | 2024-12-31 15:23 | XMS_ITS | CCD ---
Author Organization [facility] ion [facility] Care Team Providers Care Infectious Diseases Physician Name Role Phone Madeleine Marshall Unavailable Unavailable Nico Pepper Unavailable Unavailable Shantelle TANG, Eloisa Primary Care Provider LAUREN KRISHNAN Attending Unavailable ELOISA PEPPER Primary Care Unavailable SHANTELLE, DR Ryan AMIN Primary Care Unavailable LAZARO ., DR SCAR Lugo Admitting Unavailable LAZARO ., DR SCAR Lugo Attending Unavailable LAZARO ., DR SCAR Lugo Consulting Unavailable SHANTELLE, DR Ryan AMIN Primary Care Unavailable LAZARO ., DR SCAR Lugo Attending Unavailable PA ., CHRISTIAN Consulting Unavailable IVETH ., DR SCAR Lugo Admitting Unavailable SHANTELLE, [...] DR BRY Davis Attending Unavailabl e ROGER ., ANGELINE Consulting Unavailable MARKER ., DR FRANZ Attending Unavailable MARKER ., DR FRANZ Admitting Unavailable SHANTELLE, DR Ryan AMIN Primary Care Unavailable MARKER ., DR FRANZ Consulting Unavailable RAYNA, RULA Consulting Unavailable VALARIE GOSS Consulting Unavailable MARIANELA ., FARZANEH Attending Unavailable MARIANELA ., FARZANEH Admitting Unavailable ROSETTA, DR JUAN M Samano Consulting Unavailable SHANTELLE, DR Ryan AMIN Primary Care Unavailable MARIANELA ., FARZANEH Consulting Unavailable JULIO, DR KYMBERLY Samano Attending Unavailable JULIO, DR KYMBERLY Samano Admitting Unavailable JULIO, DR KYMBERLY Samano Consulting Unavailable KAJOEYAN, DR Ryan AMIN Primary Care Unavailable JANNETTE, DR BRY Davis Consulting Unavailantonio STAHL, DR MINE Parker Consulting Unavailable HAY ., DR BECK Attending Unavailable HAY ., DR BECK Admitting Unavailable KAFTAN, DR Ryan AMIN Primary Care Unavailable HAY ., DR BECK Consulting Unavailable TROTTI, GIRMAGGI Consulting Unavailable AFSHAN, BUDDY Admitting Unavailable KAJOEYAN, DR Ryan AMIN Primary Care Unavailable AFSHAN, BUDDY Attending Unavailable ZIEBER, DR JUAN M Samano Consulting Unavailable AFSHAN, BUDDY Consulting Unavailable AFSHAN, BUDDY Attending Unavailable AFSHAN, BUDDY Admitting Unavailable AFSHAN, BUDDY Consulting Unavailable KAFTAN, DR Ryan AMIN Primary Care Unavailable SCHNEHASMUKH, DIANA Consulting Unavailable KAJOEYAN, DR Ryan AMIN Primary Care Unavailable LAZARO ., DR SCAR Lugo Attending Unavailable LAZARO ., DR SCAR Lugo Admitting Unavailable LAZARO ., DR SCRA Lugo Consulting Unavailable ALETA SEGURA Consulting Unavailable MCCORNACK, JUAN M Consulting Unavailable LAZARO ., DR SCAR Lugo Attending Unavailable WINN .CHRISTIAN Consulting Unavailable KAFTAN, DR Ryan AMIN Primary Care Unavailable LAZARO ., DR SCAR Lugo Admitting Unavailable Rolando, Dr. Madeleine Pruitt Attending Unavaila hasmukh Pepper Jr, Dr. Nico Amin Primary Care Amita vailable Nico Pepper Unavailable Unavailable Unavailable Dr. Nico Pepper Jr Primary Care Amita vailahasmukh Pfeiffer, Dr. Humphrey Fierro Attending Amira Pepper Jr, Dr. Nico Amin Primary Care Amita vailable Daphne, Ms. Meli Garibay Attending Amita vaskylar Pepper Jr, Dr. Nico Amin Primary Care Amita vailable Meli Bravo Attending Unavailable Shantelle Salas, Dr. Nico Amin Primary Care Amita vailahasmukh Pfeiffer, Dr. Humphrey Fierro Attending DO Juancarlos Marte Primary Care Provider [phone] DO Tad Barger Emergency Provider MD Zaheer Sanon Jr Emergency Provider Ryan PEPPER Primary Care Physician [phone] Nico Pepper DO Primary Care Provider Shantelle ., DO, Nico Amin Primary Care Provi joann Malina Castaneda CNP Unavailable Jimmyjose Jr., DO Nico Amin Primary Care Provi joann SHANTELLE JR NICO AMIN Primary Care Unavail able RAJA, NICANOR Referring Unavailable AIDEE VILLAVICENCIO Attending Unavailable RAJA, NICANOR Referring Unavailable LACHO BULLOCK Attending Unavailable JIMMYJOSE SALAS NICO AMIN Primary Care Unavail able RAJA, NICANOR Attending Unavailable SHANTELLE JR NICO AMIN Primary Care Unavail able RAJA, NICANOR Referring Unavailable YUNNURIS SALAS NIOC AMIN Primary Care Unavail able Nico Pepper DO Unavailable Roxana Bermudez Unavailable Juancarlos Pepper DO Primary Care Provider [phone] Tad Barger DO Emergency Provider [phone] Yamil Leal MD Emergency Provider Yamil Leal Admitting Unavailable Yamil Leal Attending Unavailable Juancarlos Pepper Primary Care Unavailable Juancarlos Pepper Primary Care Unavailable Tad Barger Admitting Unavailable Tad Barger Attending Unavailable Eyad TANG, Uriel Yates Attending Unavailable Eyad TANG, Uriel Yates Attending Unavailable NICO PEPPER Attending Unavailable WINSTON HAMEED Attending Unavailable WINSTON HAMEED Attending Unavailable NICO PEPPER Attending Unavailable NICO PEPPER Referring Unavailable ROXANA VICENTE Attending Unavailable NICO PEPPER Referring Unavailable NIYAE, VADIM Attending Unavailable SKIE, VADIM Referring Unavailable SKIE, VADIM Referring Unavailable SKIE, VADIM Referring Unavailable SKIE, VADIM Referring Unavailable SKIE, VADIM Attending Unavailable SKIE, VADIM Attending Unavailable SKIE, VADIM Admitting Unavailable SKIE, VADIM Attending Unavailable SKIE, VADIM Admitting Unavailable SKIE, VADIM Attending Unavailable SKIE, VADIM Attending Unavailable SKIE, VADIM Attending Unavailable SKIE, VADIM Attending Unavailable Allergies Allergy ClassificationReported Allergen(s)Allergy TypeDate of OnsetReaction(s) Facility (11 sources)Metoclopramide; Translations: [Reglan]Drug Eswpcyi66-95-5873[facility] (14 sources)Sulfonamides (Antibiotic); Translations: [Sulfa Drugs]Allergy to drug (finding)Unknown (qualifier value)[facility] (20 sources)SUMAtriptan; Translations: [sumatriptan]Drug Nzstvwj60-63-5151 Palpitations, Other (See Comments), Rash, Unknown (qualifier value), Other: See Comments, UnknownMG[facility] [address] Work Phone: (20 sources)Metoclopramide; Translations: [metoclopramide]Drug Umenpwn92-34-0031 Hives, Nausea And Vomiting, Unknown (qualifier value), Anxiety, Other: See Comments, GI Upset, [facility] [employer] Work Phone: (20 sources)Sulfonamides (Antibiotic)Propensity to adverse reactions to drug 59-80-0619Ugwtdt And Vomiting, Hives, GI Upset, Other: See Comments, [facility] [employer] Work Phone: (20 sources)Amoxicillin-Pot Clavulanate; Translations: [AMOXICILLIN-POT CLAVULANATE]Propensity to adverse reactions to evab40-21-9776Oscuq (See Comments), [facility] [employer] (2 sources)Amoxicillin / Clavulanate; Translations: [Augmentin]Drug Allergy 62-79-8677Bhv [facility] (2 sources)PlasminDrug Yudnotc09-95-9313KngProtestant [facility]acon[facility] (2 sources)Sulfonamides (Antibiotic)Drug allergy (disorder)02-32-4224NfbProtestant Deaconess Hospital [facility] (10 sources)Amoxicillin; Translations: [AMOXICILLIN]Drug Psvusqm24-22-2281OmtjPremier [facility] (6 sources)Clavulanate; Translations: [clavulanic acid]Drug Cyrjdqx49-17-6977 [facility] (8 sources)Sulfonamides (Antibiotic); Translations: [SULFA (SULFONAMIDE ANTIBIOTICS)]Allergy to yjkabkkvv32-39-5294DmtqmgoUniversity [facility] (4 sources)Amoxicillin / Clavulanate; Translations: [amoxicillin-clavulanate] [facility]ergyHol[facility] (4 sources)Sulfacetamide; Translations: [sulfacetamide]Drug Dojyvxr01-85-5044pee sure, she was a [facility] (4 sources)Sulfur; Translations: [sulfur]Drug Hgkoyzw02-79-6157yev sure, she was a [facility] (1 source)MetoclopramideDrug Cawzdwc37-83-4030NdlfyesbhMagruder Memorial Hospital [facility] (1 source)Metoclopramide; Translations: [METOCLOPRAMIDE HCL]Drug Allergy 00-24-7911ZmnsbzvwghF[facility] (1 source)Prochlorperazine; Translations: [PROCHLORPERAZINE]Drug Allergy 36-34-5401GlntcsmsjpFulton County Health Center Rep[facility] Medications Current Medications MedicationDrug Class(es)DatesSig (Normalized)Sig (Original)acetaminophen 300 mg / butalbital 50 mg / caffeine 40 mg oral capsule (20 sources)Barbiturate, Central Nervous System Stimulant, MethylxanthineStart: 01-20-0787Taaagzgx Refill(s) 0 Start Date: 08/17/19 Status: OrderedStart: 06-23-2017 End: 97-92-3806plet 1 capsule by mouth every four hours as needed for headache hjismgdnkr-closudrtosnvp-wbylhpyv (Fioricet) 50-300-40 MG capsule Indications: Nonintractable headache, unspecified chronicity pattern, unspecified headache type TAKE 1 CAPSULE BY MOUTH EVERY 4 HOURSAS NEEDED FOR HEADACHES 120 capsule 10/06/2024 Activetake 1 tablet by mouth every four hours as neededacetaminophen 325 mg-caffeine 40 mg-butalbital 50 mg (FIORICET) per tablet Take 1 tablet by mouth every 4 hours as needed. 0 ActiveComment on above:Take 1 tablet by mouth every 4 hours as needed.acetaminophen 325 mg / oxyCODONE hydrochloride 5 mg oral tablet (20 sources)Opioid AgonistStart: 03-51-5381ftqu 1 tablet by mouth every six hours as needed for painOxycodone-Acetaminophen 5-325 mg tablet Active 1 TAB PO Every 6 hours as needed for pain April 06, 2024 1:00amStart: 17-28-2520qqbh 1-2 tablets by mouth every six hours as neededoxyCODONE-acetaminophen (PERCOCET) 5-325 mg tablet Take 1-2 tablets by mouth every 6 hours as needed. 0 05/22/2023 ActiveStart: 00-68-2900naqj 1 tablet by mouth in the morningoxyCODONE- acetaminophen (Percocet) 5-325 MG tablet Take 1 tablet by mouth in the morning. 08/09/2022 ActiveStart: 06-23-2017 End: 53-42-5277nprd 1 tablet by mouth every six hours as needed for pain Oxycodone-Acetaminophen 5-325 mg tablet Discontinued 1 TAB PO Q6H as needed for pain JuneJune 28, 2017 12:00am June 29, 2017 12:02amComment on above:Take 1-2 tablets by mouth every 6 hours as needed.atenolol 50 mg / chlorthalidone 25 mg oral tablet (20 sources)Thiazide-like Diuretic, beta-Adrenergic BlockerStart: 04-07-2023 atenolol-chlorthalidone 50 mg-25 mg Tab Refill(s) 0 Start Date: 04/07/23 Status: OrderedStart: 10-05-2021 End: 77-79-7185tqpt 1 tablet by mouth once dailyatenolol-chlorthalidone (Tenoretic) 50-25 MG tablet Indications: Primary hypertension Take 1 tabletby mouth Daily 90 tablet 2 10/06/2024 ActiveComment on above:Take 1 tablet by mouth once daily.bisacodyl 5 mg delayed release oral tablet (1 source)Stimulant LaxativeStart: 30-89-5444yyiv 2 tablets by mouth once daily as needed for constipationbisacodyl 5 MG EC tablet Take 2 tablets by mouth daily as needed for Constipation 10 tablet 0 04/11/2022 Active Xyfyfcysqc-JCTN-Ugtyfdsp (FIORICET PO) (1 source)Start: 65-34-1365Ekmnuqhzwn-APAP-Caffeine (FIORICET PO) Refill(s) 0 0 08/17/2019 Active2 ml dicyclomine hydrochloride 10 mg/ml injection (12 sources)AnticholinergicStart: 36-43-7978xhafemmpkaw (BENTYL) injection 20 mg Start: 15-57-9045ypdx 1 capsule by mouth every six hours as needed for pain dicyclomine (BENTYL) 10 MG capsule Take 1 capsule by mouth every 6 hours as needed (for pain) 20 capsule 1 04/11/2022 ActiveStart: 08-21-2018 End: 38-38-6544zwzh 1 tablet by mouth twice dailyDicyclomine 20 mg tablet Discontinued 20 MG PO Twice daily August 21, 2018 12:00am October 05, 2021 4:12pm Start: 08-19-2018 End: 68-81-3488lnyd 1 tablet by mouth once dailyDicyclomine 20 mg tablet Discontinued 20 MG PO Daily August 19, 2018 12:00am August 21, 2018 10:17am enteric contrast (will be provided with radiology test) (10 sources)Start: 48-19-1581quqyhdi contrast (will be provided with radiology test) Indications: Epigastric abdominal pain For CT Chest Abdomen WO order Administer, As Directed One Time Only, via Oral, Rectal, both Oral and Rectal, Enteric Tube, Stoma or Indwelling Catheter, Enteric Contrast as designated per enteric contrastguidelines 1 Each 0 05/19/2023 ActiveComment on above:For CT Chest Abdomen WO order Administer, As Directed One Time Only, via Oral, Rectal, both Oral and Rectal, Enteric Tube, Stoma or Indwelling Catheter, Enteric Contrast as designated per enteric contrast guidelinesesomeprazole 40 mg delayed release oral capsule (7 sources)Proton Pump InhibitorStart: 74-63-5281ejkm 1 capsule by mouth once esomeprazole (NEXIUM) 40 mg capsule Take 1 capsule by mouth every afternoon. 0 05/13/2023 ActiveComment on above:Take 1 capsule by mouth every afternoon. estradiol 0.1 mg/ml vaginal cream (12 sources)EstrogenStart: 07-19-2024 End: 11-13-7499ycvcfosln (Estrace) 0.1 MG/GM vaginal cream Indications: Vulvovaginal Atrophy Insert twice weekly 42.5 g 12 07/19/2024 12/13/2024 Discontinuedestrogens, conjugated (half-way) 0.625 mg/ml vaginal cream (1 source)EstrogenStart: 33-32-6401Guknhbycq Conjugated (Premarin) 0.625 MG/GM cream Indications: Hormone imbalance Insert 1 g into the vagina in the morning. Take 1 gram nightly for 1 month, then twice weekly thereafter.. 30 g 3 10/22 ActivehydrOXYzine pamoate 25 mg oral capsule (20 sources)AntihistamineStart: 32-90-5589ucuh 1 capsule by mouth every eight hours for anxietyhydrOXYzine pamoate (Vistaril) 25 MG capsule Indications: Anxiety and depression Take 1 capsule (25mg) by mouth every 8 (eight) hours if needed for anxiety 30 capsule 5 09/15/2023 ActiveStart: 91-73-7177wfcd 1 capsule by mouth three times daily as needed for anxietyHydroxyzine Pamoate 25 mg capsule Active 25 MG PO Three times daily as needed for anxiety October 05, 2021 12:00amComment on above:Take 25 mg by mouth three times a day as needed. ibuprofen 600 mg oral tablet (6 sources)Nonsteroidal Anti-inflammatory DrugStart: 32-05-4814snfa 4 tablets by mouth every twenty-four hours for painIbuprofen 600 mg tablet Active 600 MG PO Every 6 hours as needed for Pain June 12, 2024 12:00am do not exceed 4 doses in a 24 hour periodStart: 11-20-2016 End: 40-66-7950wncb 1 tablet by mouth every eight hours as needed for pain Ibuprofen 600 mg tablet Discontinued 600 MG PO Q8H as needed for pain November 20, 2016 12:00am October 05, 2021 4:12pmlamoTRIgine 200 mg oral tablet (20 sources)Mood Stabilizer, Anti-epileptic AgentStart: 05-89-6251Heeknvat Refills(s) 0 Start Date: 08/17/19 Status: OrderedStart: 10-08-2016 End: 26-75-6821fqpj 1 tablet by mouth once dailylamoTRIgine (LaMICtal) 200 MG tablet Indications: Bipolar affective disorder, remission status unspecified (HCC) , Anxiety and depression Take 1 tablet (200 mg) by mouth Daily 90 tablet 3 02/27/2024 ActiveStart: 22-57-1439laeo 1 tablet by mouth twice dailylamoTRIgine (LAMICTAL) 200 mg tablet Take 200 mg by mouth two times a day. 0 10/08/2016 ActiveComment on above:Take 200 mg by mouth two times a day.meclizine hydrochloride 25 mg oral tablet (1 source)AntiemeticStart: 48-32-4606lfuy 1 tablet by mouth three times daily as needed for dizzinessMeclizine 25 mg tablet Active 25 MG PO Three times daily as needed for dizziness June 122:00amnaloxone hydrochloride 40 mg/ml nasal spray (4 sources)Opioid AntagonistStart: 26-57-2601wsuvfbbx 4 mg/0.1 mL nasal spray 4 mg, Nasal, As Directed, for suspected overdose symptoms, # 1 kit(s), Refills(s) 0 Start Date: 04/07/23 Status: Orderednaproxen 250 mg oral tablet (1 source)Nonsteroidal Anti-inflammatory DrugStart: 81-82-7507myjv 1 tablet by mouth twice daily as needed for painnaproxen (NAPROSYN) 250 MG tablet Take 1 tablet by mouth 2 times daily as needed for Pain 20 tablet5 04/11/2022 Active nitrofurantoin, macrocrystals 25 mg / nitrofurantoin, monohydrate 75 mg oral capsule (1 source)Nitrofuran AntibacterialStart: 04-11-2022 End: 86-46-2180nwik 1 capsule by mouth twice dailynitrofurantoin, macrocrystal- monohydrate, (MACROBID) 100 MG capsule Take 1 capsule by mouth 2 timesdaily for 10 doses 10 capsule 0 04/11/2022 04/16/2022 Activeondansetron 4 mg disintegrating oral tablet (20 sources)Serotonin-3 Receptor AntagonistStart: 89-83-7936vpqmnxsbidi ODT (Zofran-ODT) 4 MG disintegrating tablet Indications: Headache DISSOLVE 1 TABLET ON THE TONGUE EVERY 8 HOURS NEEDED 27 tablet 2 12/13/2024 ActiveStart: 34-39-4936lvzfmljixxi ODT (Zofran-ODT) 4 MG disintegrating tablet Indications: Headache DISSOLVE 1 TABLET ON THE TONGUE EVERY 8 HOURS NEEDED 27 tablet 2 12/13/2024 ActiveStart: 09-15-2023 End: 77-06-8865zdsclzurlwx ODT (Zofran-ODT) 4 MG disintegrating tablet Indications: Headache DISSOLVE 1 TABLET ON THE TONGUE EVERY 8 HOURS NEEDED 27 tablet 2 10/06/2024 12/13/2024 Discontinued (Reorder)Start: 04-11-2022 End: 25-97-1046mboyxpcnwqd (ZOFRAN) injection 4 mgStart: 03-15-6896rqfn 1 tablet by mouth every eight hours as neededondansetron orally disintegrating (ZOFRAN ODT) 4 mg disintegrating tablet Take 4 mg by mouth every 8 hours as needed. 0 12/01/2017 ActiveStart: 12-01-2017 End: 67-22-8265Uhauogcwzda Hcl 4 mg tablet Discontinued 4 MG PO every 6 to 8 hours as needed for nausea and vomiting March 24, 2023 1:00am April 06, 2024 2:07pmComment on above:Take 4 mg by mouth every 8 hours as needed. oxaprozin 600 mg oral tablet (20 sources)Nonsteroidal Anti-inflammatory DrugStart: 07-13-2024 End: 93-41-2523upch 1 tablet by mouth in the morningoxaprozin (Daypro) 600 MG tablet Indications: Unspecified thoracic, thoracolumbar and lumbosacral in tervertebral disc disorder Take 1 tablet (600 mg) by mouth in the morning and 1 tablet (600 mg) before bedtime. 180 tablet 3 10/06/2024 ActiveStart: 04-06-2024 take 1 tablet by mouth twice dailyOxaprozin 600 mg tablet Active 600 MG PO Twice daily April 06, 2024 1:00amStart: 02-03-2024 End: 41-71-8341pcno 1 tablet by mouth once daily in the morningoxaprozin (Daypro) 600 MG tablet Indications: Unspecified thoracic, thoracolumbar and lumbosacral intervertebral disc disorder TAKE 1 TABLET BY MOUTH EVERY MORNING AND 1 TABLET BEFORE BEDTIME 60 tablet 3 02/03/2024 07/13/2024 Discontinued (Reorder)Start: 29-70-1528fmdg 1 tablet by mouth in the morningoxaprozin (Daypro) 600 MG tablet Indications: Unspecified thoracic, thoracolumbar and lumbosacral intervertebral disc disorder Take 1 tablet (600 mg) by mouth in the morning and 1 tablet (600 mg) before bedtime. 180 tablet 3 06/17/2023 Active Start: 65-33-5844tfys 1 tablet by mouth in the morningoxaprozin (Daypro) 600 MG tablet Indications: Unspecified thoracic, thoracolumbar and lumbosacral in tervertebral disc disorder TAKE 1 TABLET (600 MG) BY MOUTH IN THE MORNING AND 1 TABLET (600 MG) BEFORE BEDTIME. 60 tablet 3 01/13/2023 Activetake 2 tablets by mouth twice dailyoxaprozin (DAYPRO) 600 MG tablet Take 1,200 mg by mouth 2 times daily 0 ActiveComment on above:Take 600 mg by mouth once daily.PARoxetine hydrochloride 30 mg oral tablet (20 sources)Serotonin Reuptake InhibitorStart: 72-92-8436gwogijamxy Refills(s) 0 Start Date: 08/17/19 Status: OrderedStart: 69-28-4636bbab 60 mg by mouth once dailyParoxetine Hcl Active 60 MG PO Daily November 19, 2016 11:00pmStart: 10-08-2016 End: 02-05-8822kncx 2 tablets by mouth once dailyPARoxetine (Paxil) 30 MG tablet Indications: Bipolar affective disorder, remission status unspecified (HCC) Take 2 tablets (60 mg) by mouth Daily 180 tablet 3 10/06/2024 Activetake 1 tablet by mouth at bedtimePARoxetine (PAXIL) 10 MG tablet Take 10 mg by mouth at bedtime 0 ActivePARoxetine (PAXIL) 20 MG tablet Take 30 mg by mouth every morning 0 ActiveComment on above:Take 60 mg by mouth once daily.polymyxin b 23159 unt/ml / trimethoprim 1 mg/ml ophthalmic solution (3 sources)Dihydrofolate Reductase Inhibitor Antibacterial, Polymyxin-class AntibacterialStart: 12-22-2023 End: 80-32-6894vwtlourjdlwb-polymyxin b (Polytrim) ophthalmic solution Indications: Bacterial conjunctivitis of both eyes Administer 1 drop into affected eye(s) in the morning and 1 drop at noon and 1 drop in the evening and 1 drop before bedtime. Do all this for 10 days. 10 mL 1 12/22/2023 01/01/2024 Activepregabalin 200 mg oral capsule (20 sources)Start: 89-13-5784srgk 1 capsule by mouth in the morningpregabalin (Lyrica) 200 MG capsule Indications: Complex regional pain syndrome type 1, affecting unspecified site , Disorder of intervertebral disc of lumbar spine , Chronic pain syndrome , Neuropathy Take 1 capsule (200 mg) by mouth in the morning and 1 capsule (200 mg) before bedtime. 180 igzbsta5112/13/2024 Active Start: 52-59-9463aadh 1 capsule by mouth in the morningpregabalin (Lyrica) 200 MG capsule Indications: Complex regional pain syndrome type 1, affecting uns pecified site , Disorder of intervertebral disc of lumbar spine , Chronic pain syndrome , Neuropathy Take 1 capsule (200 mg) by mouth in the morning and 1 capsule (200 mg) before bedtime. 180 erjgpsy3912/13/2024 ActiveStart: 12-29-2023 End: 08-54-8438dkav 1 capsule by mouth in the morningpregabalin (Lyrica) 200 MG capsule Indications: Complex regional pain syndrome type 1, affecting uns pecified site , Disorder of intervertebral disc of lumbar spine , Chronic pain syndrome , Neuropathy Take 1 capsule (200 mg) by mouth in the morning and 1 capsule (200 mg) before bedtime. 180 btzixyz6010/06/2024 12/13/2024 Discontinued (Reorder)Start: 10-17-2023 End: 59-96-7219shxy 1 capsule by mouth in the morningpregabalin (Lyrica) 200 MG capsule Indications: Complex regional pain syndrome type 1, affecting uns pecified site , Disorder of intervertebral disc of lumbar spine , Chronic pain syndrome , Neuropathy Take 1 capsule (200 mg) by mouth in the morning and 1 capsule (200 mg) before bedtime. 60 capsule 11/19/2023 12/27/2023 Discontinued (Reorder)Start: 49-67-6249fjco 1 capsule by mouth in the morningpregabalin (Lyrica) 200 MG capsule Indications: Complex regional pain syndrome type 1, affecting unspecified site , Disorder of intervertebral disc of lumbar spine , Chronic pain syndrome , Neuropathy Take 1 capsule (200 mg) by mouth in the morning and 1 capsule (200 mg) before bedtime. 60 capsule 0 04/24/2023 Active Start: 03-25-2023 End: 35-37-2376hqvj 1 capsule by mouth three times dailypregabalin 200 mg Cap 200 mg = 1 cap(s), Oral, TID, Refills(s) 0 Start Date: 04/07/23 Status: Ordered Start: 56-58-3931piek 1 tablet by mouth once dailypregabalin (LYRICA) 150 mg capsule Take 1 tablet by mouth once daily. 0 05/19/2022 ActiveComment on above: Take 1 tablet by mouth once daily.promethazine hydrochloride 25 mg oral tablet (10 sources)PhenothiazineStart: 26-61-3438yesj 1 tablet by mouth every four to six hours as needed for nausea and vomitingPromethazine 25 mg tablet Active 25 MG PO EVERY 4-6 HOURS as needed for nausea and vomiting June 12, 2024 12:00amStart: 03-17-2021 End: 15-67-3242tnzj 1 tablet by mouth three times daily as needed for nausea and vomitingPromethazine 25 mg tablet Discontinued 25 MG PO Three times daily as needed for nausea and yrnccwka65 October 05, 2021 12:00am April 06, 2024 2:21pmsodium chloride flush 0.9 % injection 3 mL (1 source)Start: 65-79-9085sxpjrb chloride flush 0.9 % injection 3 mLsucralfate 1000 mg oral tablet (14 sources)Aluminum ComplexStart: 40-07-3223daepkgsvrv 1 g Tab Refills(s) 0 Start Date: 04/07/23 Status: OrderedStart: 03-24-2023 End: 09-86-2086zzth 1 tablet by mouth every six hoursSucralfate (Carafate) 1 gram tablet Discontinued 1 GM PO Q6H 56 March 24, 2023 1:00am April 06, 2024 2:21pmStart: 10-05-2021 End: 23-27-9834kaot 1 tablet by mouth twice daily as needed for painSucralfate (Carafate) 1 gram tablet Discontinued 1 GM PO Twice daily as needed for pain 10 October 05, 2021 5:46pm April 06, 2024 2:21pmtamsulosin hydrochloride 0.4 mg oral capsule (1 source)alpha-Adrenergic BlockerStart: 04-11-2022 End: 57-12-5379wsrs 1 capsule by mouth once dailytamsulosin (FLOMAX) 0.4 MG capsule Take 1 capsule by mouth daily for 10 days 10 capsule 0 04/11/2022 04/21/2022 ActivetiZANidine 4 mg oral tablet (20 sources)Central alpha-2 Adrenergic AgonistStart: 10-25-2022 End: 51-23-4354nvmq 1 tablet by mouth three times daily as needed for muscle spasmstiZANidine (Zanaflex) 4 MG tablet Indications: Other chronic pain Take 1 tablet (4 mg) by mouth 3 (three) times a day as needed for muscle spasms 270 tablet 1 10/06/2024 Activetake 1 capsule by mouth three times dailytiZANidine HCl (ZANAFLEX) 4 mg capsule Take 4 mg by mouth three times a day. 0 Activetake 1 tablet by mouth every six hours as neededtiZANidine (ZANAFLEX) 4 MG tablet Take 4 mg by mouth every 6 hours as needed 0 ActiveComment on above:Take 4 mg by mouth three times a day.valACYclovir 500 mg oral tablet (20 sources)Herpesvirus Nucleoside Analog DNA Polymerase Inhibitor, Herpes Simplex Virus Nucleoside Analog DNA Polymerase Inhibitor, Herpes Zoster Virus Nucleoside Analog DNA Polymerase InhibitorStart: 08-56-6043dpoe 1 tablet by mouth four times daily as neededValacyclovir 500 mg tablet Active 500 MG PO Four times daily as needed for rash April 06, 2024 1:00amStart: 68-72-2651rvoy 1 tablet by mouth once daily in the morning, then take 1 tablet by mouth in the evening, then take 1 tablet by mouth at bedtimevalACYclovir (Valtrex) 500 MG tablet Indications: History of cold sores TAKE 1 TABLET BY MOUTH EVERY MORNING 1 IN THE EVENING & 1 AT BEDTIME FOR 7 DAYS 21 tablet 1 04/05/2024 ActiveStart: 14-86-0235fixa 1 tablet by mouth in the morning, then take 1 tablet by mouth in the evening, then take 1 tablet by mouth at bedtimevalACYclovir (Valtrex) 500 MG tablet Indications: History of cold sores Take 1 tablet (500 mg) by mouth in the morning and 1 tablet (500 mg) in the evening and 1 tablet (500 mg) before bedtime. 21 tablet 1 07/22/2023 ActiveVibegron (Gemtesa) 75 MG tablet (12 sources)Start: 07-19-2024 End: 24-72-2292jzcx 1 tablet by mouth once dailyVibegron (Gemtesa) 75 MG tablet Indications: Other urinary incontinence Take 75 mg by mouth Daily 30 tablet 3 07/19/2024 12/13/2024 DiscontinuedStart: 31-77-9691qdgv 1 tablet by mouth once dailyVibegron (Gemtesa) 75 MG tablet Indications: Other urinary incontinence Take 75 mg by mouth Daily 30 tablet 3 07/19/2024 ActiveZofran ODT 4 mg Tab-Dis (4 sources)Start: 33-39-5692hjtb 1 tablet by mouth every eight hours as needed for nauseaZofran ODT 4 mg Tab-Dis 4 mg = 1 tab(s), Oral, q8hr, PRN Nausea, # 12 tab(s), Refills(s) 0, [facility]acy: [facility], 157, cm, 02/26/21 23:25:00 EST, Height/Length Dosing, 58.8, kg, 02/26/21 23:25:00 EST, Weight Dosing Start Date: 02/27/21 Status: Ordered Completed/Discontinued Medications MedicationDrug Class(es)DatesSig (Normalized)Sig (Original)alendronic acid 40 mg oral tablet (9 sources)BisphosphonateStart: 27-99-2967Ovjviijmlug Sodium 40 MG TABS TAKE 1 TABLET Daily for 6 weeks Quantity: 45 Refills: 0 Ordered: 25-Oct-2016 Madeleine Marshall MD Start : 25-Oct-2016 Activeamoxicillin 875 mg oral tablet (3 sources)Penicillin-class AntibacterialStart: 04-06-2024 End: 88-13-4816txvd 1 tablet by mouth every twelve hoursAmoxicillin 875 mg tablet Discontinued 875 MG PO Every 12 hours 27 12April 06, 2024 1:00am May 25, 2024 6:15pmazithromycin 250 mg oral tablet (20 sources)Macrolide AntimicrobialStart: 12-22-2023 End: 58-30-6530ummcqahpmyve (Zithromax) 250 MG tablet Indications: Acute recurrent maxillary sinusitis 2 pills orally today, then 1 pill orally daily for 4 days 6 tablet 05/31/2024 10/06/2024 Discontinuedbrompheniramine maleate 0.4 mg/ml / dextromethorphan hydrobromide 2 mg/ml / pseudoephedrine hydrochloride 6 mg/ml oral solution (14 sources)alpha-Adrenergic Agonist, Uncompetitive U-khyjfy-T-aspartate Receptor Antagonist, Sigma-1 AgonistStart: 12-22-2023 End: 96-20-5548iiyvitxycmpnkjl-pseudoephedrine-DM 30-2-10 MG/5ML syrup Indications: URI, acute Take 10 mL by mouth4 (four) times a day as needed for cough or congestion (q6hrs) 200 mL 12/22/2023 05/31/2024 Yhuuvxdkossn74 hr buPROPion hydrochloride 150 mg extended release oral tablet (6 sources)AminoketoneStart: 10-05-2021 End: 00-34-4116etlz 1 tablet by mouth once dailyBupropion Hcl 150 mg tablet sustained-release 12 hr Discontinued 150 MG PO Daily October 05, 2021 12:00am April 06, 2024 2:20pmtake 1 tablet by mouth twice dailybuPROPion (WELLBUTRIN SR) 150 MG extended release tablet Take 150 mg by mouth 2 times daily 0 Active busPIRone hydrochloride 15 mg oral tablet (6 sources)Start: 10-05-2021 End: 41-59-1388durb 1 tablet by mouth once dailyBuspirone 15 mg tablet Discontinued 15 MG PO Daily October 05, 2021 12:00am April 06, 2024 2:20pm cephalexin 500 mg oral capsule (5 sources)Cephalosporin AntibacterialStart: 06-23-2017 End: 35-61-0938smsx 1 capsule by mouth every twelve hoursCephalexin 500 mg capsule Discontinued 500 MG PO Q12H June 23, 2017 12:00am August 21, 2018 10:17amfamotidine 40 mg oral tablet (20 sources)Histamine-2 Receptor AntagonistStart: 09-17-2023 End: 34-79-6021nxil 1 tablet by mouth once dailyfamotidine (Pepcid) 40 MG tablet Indications: Gastroesophageal Reflux Disease Take 1 tablet (40 mg)by mouth Daily 30 tablet 5 09/17/2023 05/31/2024 DiscontinuedStart: 22-75-2164cpvz 1 tablet by mouth twice dailyfamotidine (PEPCID) 20 mg tablet Take 20 mg by mouth two times a day. 0 04/23/2023 ActiveStart: 04-07-2023 End: 72-50-3651naor 1 tablet by mouth once daily at bedtimePepcid 20 mg Tab 20 mg = 1 tab(s), Oral, Once a day (at bedtime), X 90 day(s), # 90 tab(s), Refills( s) 0, Pharmacy: [facility]/pharmacy #[id number], 157, cm, 04/07/23 10:57:00 EST, Height/Length Dosing, 65.7, kg,04/07/23 10:57:00 EST, Weight Dosing Start Date: 04/07/23 Stop Date: 07/06/23 Status: OrderedComment on above:Take 20 mg by mouth two times a day.famotidine (PEPCID) 20 mg in sodium chloride (PF) 0.9 % 10 mL injection (1 source)Start: 04-11-2022 End: 71-09-1058mmfijfoico (PEPCID) 20 mg in sodium chloride (PF) 0.9 % 10 mL injectionfluticasone propionate 0.05 mg/actuat metered dose nasal spray (15 sources)CorticosteroidStart: 05-31-2024 End: 96-32-9449mqnv 2 spray(s) nasal route once dailyfluticasone (Flonase) 50 MCG/ACT nasal spray Indications: Acute recurrent maxillary sinusitis Administer 2 sprays into each nostril Daily Shake gently. Before first use, prime pump. After use, clean tip and replace cap. 05/31/2024 10/06/2024 DiscontinuedStart: 63-10-7026enxo 2 spray(s) nasal route once dailyFluticasone Propionate (Flonase Allergy Relief) 50 mcg/actuation spray,suspension Active 2 SPRAY INTRANASAL Daily April 06, 2024 1:00am administer 2 spray into each nostril1 ml ketorolac tromethamine 15 mg/ml cartridge (1 source)Nonsteroidal Anti-inflammatory Drug, Cyclooxygenase InhibitorStart: 04-11-2022 End: 11-08-2534neydohxwc (TORADOL) injection 15 mg1 ml morphine sulfate 4 mg/ml injection (1 source)Opioid AgonistStart: 04-11-2022 End: 79-45-4078zcqkpksv sulfate (PF) injection 2 mgStart: 04-11-2022 End: 69-90-7071gkjfwmbi sulfate (PF) injection 2 mgpantoprazole 20 mg delayed release oral tablet (13 sources)Proton Pump InhibitorStart: 03-30-2023 End: 81-08-9933ymiy 2 tablets by mouth twice dailyPantoprazole (Protonix) 20 mg tablet,delayed release (DR/EC) Discontinued 40 MG PO Twice daily March 30, 2023 1:00am April 06, 2024 2:07pmStart: 03-24-2023 End: 09-84-8283tcuf 1 tablet by mouth once dailyPantoprazole (Protonix) 40 mg tablet,delayed release (DR/EC) Discontinued 40 MG PO Daily 14 March 24, 2023 1:00am April 06, 2024 2:21pmStart: 22-95-4268gluf 1 tablet by mouth once dailypantoprazole 40 mg Oral EC Tab 40 mg = 1 tab(s), Oral, Daily, # 30 tab(s), Refills(s) 0 Start Date:03/13/21 Status: Wzzoryu18 ml sodium chloride 9 mg/ml injection (1 source)Start: 04-11-2022 End: .9 % sodium chloride bolustopiramate 25 mg oral tablet (1 source)Start: 40-05-0300Qajaxbcevm 25 MG Oral Tablet 25mg tabs titrate to 100mg bid per protocol faxed to pharm Quantity: 196 Refills: 0 Madeleine Marshall MD Start : 25-Oct-2016 ActivetraMADol hydrochloride 50 mg oral tablet (14 sources)Opioid AgonistStart: 10-05-2021 End: 48-35-5054agmt 1 tablet by mouth once dailyTramadol 50 mg tablet Discontinued 50 MG PO Daily October 05, 2021 12:00am April 06, 2024 2:21pm Start: 41-67-3099hmsublhf Refills(s) 0 Start Date: 08/17/19 Status: OrderedStart: 06-23-2017 End: 10-25-6140Fktaqzqo 50 mg tablet Discontinued 50 MG PO As Directed as needed for Pain June 23, 2017 12:00amJune 2018 2:20pm Problems Active Problems Problem ClassificationProblemDateDocumented DateEpisodic/ChronicAnxiety disorders (20 sources)Anxiety attack ; Translations: [Panic disorder [episodic paroxysmal anxiety]]Onset: 050976-02-6802BrzuoggBklxknv kidney disease (20 sources)Chronic kidney disease stage 3A ; Translations: [Stage 3a chronic kidney disease (HCC)]Onset: 836769-06-7998OneiophVmsfpojnro disorders (20 sources)Gastroesophageal reflux disease without esophagitis; Translations: [Gastro-esophageal reflux disease without esophagitis]Onset: 42-10-8634Tpimpwj Essential hypertension (20 sources)Essential (primary) hypertension; Translations: [Hypertensive disorder]Onset: 026711-91-3537EogsjrbZybvl and electrolyte disorders (2 sources)Dehydration; Translations: [Hypokalemia]Onset: 91-57-6691Qfjmxeto Fracture of upper limb (8 sources)Fracture of unspecified phalanx of right little finger, initial encounter for closed fracture; Translations: [Displaced fracture of middle phalanx of right middle finger, initial encounter for closedfracture]Onset: 07-75-9295LjlqugbvPuwswdhyk and duodenitis (5 sources)Gastritis; Translations: [Gastritis, unspecified, without bleeding] 86-80-3036MjhnhfawYuugfghnnulsb symptoms and ill-defined conditions (10 sources)Urinary incontinence; Translations: [Unspecified urinary incontinence]96-02-1436CjfanvlMgozkrog; including migraine (10 sources)Headache; Translations: [Nonintractable headache, unspecified chronicity pattern, unspecified headache type]Onset: EpisodicHeadache; including migraine (1 source)Headache; including migraine; Translations: [Headache, unspecified] Onset: 19-96-1392Vzytpmraxjrrp and screening for infectious disease (2 sources)Vaccination needed; Translations: [Encounter for immunization] 11-97-4690ZvejlkriGuccotztmvei; infection of eye (except that caused by tuberculosis or sexually transmitteddisease) (7 sources)Conjunctivitis; Translations: [Unspecified conjunctivitis]06-23-2017 EpisodicMenopausal disorders (4 sources)Atrophy of vagina; Translations: [Postmenopausal atrophic vaginitis] 99-17-5407CsvflwdQbpw disorders (20 sources)Bipolar disorder, currently in remission, most recent episode unspecified; Translations: [Bipolar disorder, unspecified]Onset: 05-10-2016 66-07-4602ZazxxusIwhavng (2 sources)Mycosis; Translations: [Candidiasis, unspecified]70-56-6589Howjevgn Nausea and vomiting (20 sources)Nausea with vomiting, unspecified; Translations: [Nausea]Onset: 33-50-1154IwzzdhgcVsrjcjhtwpq chest pain (5 sources)Chest pain; Translations: [Chest pain, unspecified]55-87-7262Idmprekz Osteoarthritis (20 sources)Primary osteoarthritis, right hand; Translations: [Arthritis]Onset: 105788-90-7541WrzfsrmOprws acquired deformities (5 sources)Contracture of joint; Translations: [Contracture of joint, site unspecified]ChronicOther acquired deformities (3 sources)Contracture, right hand; Translations: [Contracture, right hand] Onset: 92-91-6183JltdbrpMasjq acquired deformities (20 sources)Contracture of joint of right hand; Translations: [Contracture, right hand]Onset: 631415-45-5274MitevtmOstdh acquired deformities (1 source)Unspecified acquired deformity of hand, right hand; Translations: [Unspecified acquired deformity of hand, right hand]Onset: 09-79-1226Wdwgymen Other aftercare (1 source)Other long term acute care registered nurse (current) drug therapy; Translations: [OTH IT PROGRAM AUDITOR CURRENT DRUG THERAPY]Onset: 89-97-3114KgmuqnmwOnmdr connective tissue disease (9 sources)Foot pain; Translations: [Pain in limb]EpisodicOther endocrine disorders (4 sources)Disorder of endocrine system; Translations: [Endocrine disorder, unspecified]92-90-1143KbgzpwkyLiimx gastrointestinal disorders (20 sources)Irritable bowel syndrome; Translations: [Irritable bowel syndrome without diarrhea]Onset: 710945-79-0633DfadzrjZmbio gastrointestinal disorders (1 source)Constipation; Translations: [Constipation, unspecified]EpisodicOther gastrointestinal disorders (5 sources)Mucus in stool; Translations: [Other fecal abnormalities]08-21-2018 EpisodicOther liver diseases (20 sources)Steatosis of liver; Translations: [Fatty (change of) liver, not elsewhere classified]Onset: 54-57-2849EpajwoaMvusw lower respiratory disease (5 sources)Nodule of lung; Translations: [Solitary pulmonary nodule]03-24-2023 EpisodicOther nervous system disorders (1 source)Other chronic pain; Translations: [OTHER CHRONIC PAIN]Onset: 69-68-4659CftpggwBmfmy nervous system disorders (1 source)Chronic pain syndrome; Translations: [CHRONIC PAIN SYNDROME]Onset: 22-41-1042WlbdllcXiybb nervous system disorders (1 source)Complex regional pain syndrome I of left lower limb; Translations: [Complex regional pain syndrome I of left lower limb]Onset: 44-99-0454Wjrnfjo Other nervous system disorders (20 sources)Complex regional pain syndrome type I of left lower limb; Translations: [Reflex sympathetic dystrophy of the lower limb]Onset: 12-15-2022 27-84-5504AucxbodSvdei nervous system disorders (20 sources)Complex regional pain syndrome type I; Translations: [Complex regional pain syndrome I, unspecified]Onset: 895996-48-5407LbstofrTgnwo nervous system disorders (15 sources)Chronic pain syndrome; Translations: [Chronic pain syndrome] 15-42-5185NlzpovoNxjjj nervous system disorders (20 sources)Neuropathy; Translations: [Polyneuropathy, unspecified]Onset: 239618-31-5328DycaoumCyuyc nervous system disorders (20 sources)Chronic pain; Translations: [Other chronic pain]Onset: 08-15-2022 20-45-1898NrqrosqHcddt nervous system disorders (5 sources)Postoperative pain ; Translations: [Other acute postoperative pain] EpisodicOther nervous system disorders (3 sources)Other acute postprocedural pain; Translations: [Other acute postprocedural pain]Onset: 48-52-0543JauexgcfBvykb screening for suspected conditions (not mental disorders or infectious disease) (5 sources)Imaging result abnormal; Translations: [Abnormal findings on diagnostic imaging of other specified body structures]Onset: 32-74-4650Ukqsjnd Other screening for suspected conditions (not mental disorders or infectious disease) (5 sources)Screening for malignant neoplasm of colon done; Translations: [Encounter for screening for malignant neoplasm of colon]Onset: 04-07-2023 EpisodicOther upper respiratory infections (8 sources)Acute upper respiratory infection; Translations: [Acute upper respiratory infection, unspecified]79-87-0847VtmwcsyvPpsfwpso codes; unclassified (1 source)Acquired absence of other specified parts of digestive tract; Translations: [ACQ ABSENCE OTH PART DIGESTV TRACT]Onset: 26-75-7009Sdtixjfb Residual codes; unclassified (1 source)Acquired absence of both cervix and uterus; Translations: [ACQUIRED ABSENCE BOTH CERVIX AND UTERUS]Onset: 35-71-4272EkedpkkyJsbjzcbc codes; unclassified (5 sources)Family history of cancer of colon; Translations: [Family history of malignant neoplasm of digestiveorgans]39-85-5575EcmajaubWhjyjqyagn arthritis and related disease (1 source)Other specified spondylopathies, lumbar region; Translations: [OTH SPEC SPONDYLOPATHIES LUMBAR RGN]Onset: 02-49-4336RofogqyOnkguniigzw; intervertebral disc disorders; other back problems (20 sources)Spondylosis without myelopathy or radiculopathy, lumbar region; Translations: [Other intervertebraldisc degeneration, lumbar region]Onset: 16-61-1740WjkggoaRavjaoe disorders (20 sources)Hypothyroidism; Translations: [Hypothyroidism, unspecified]Onset: 276906-09-6639RsmcrncTfbzselkhwuf (1 source)LOW BACK PAIN, UNSPECIFIED; Translations: [LOW BACK PAIN, UNSPECIFIED] Onset: 27-61-8222Vsesqfgcpbya (4 sources)Patient encounter hzfwic11-73-6476Ofqvlhnrzirm (2 sources)Post-op; Translations: [Post-op]Onset: 10-06-2024 Past or Other Problems Problem ClassificationProblemDateDocumented DateEpisodic/ChronicAbdominal pain (20 sources)Flank pain; Translations: [Unspecified abdominal pain]Onset: 69-31-6531ZjqwwdqxVhtuziql of urinary tract (20 sources)Kidney stone; Translations: [Calculus of kidney]Onset: 06-10-2022 EpisodicComplication of device; implant or graft (2 sources)Pain due to internal orthopedic prosthetic devices, implants and grafts, initial encounter; Translations: [Pain due to internal orthopedic prosthetic devices, implants and grafts, initial encounter]Onset: 11-20-2023 EpisodicConditions associated with dizziness or vertigo (19 sources)Dizzy spells; Translations: [Dizziness and giddiness]Onset: 756397-97-8417GrvobqggR Codes: Other specified and classifiable (1 source)Caught, crushed, jammed, or pinched between moving objects, initial encounter; Translations: [CAUGHT CRUSH/PINCH BTWN MOV OBJ INT]Onset: 11-05-2021 EpisodicGenitourinary symptoms and ill-defined conditions (20 sources)Delay when starting to pass urine; Translations: [Hesitancy of micturition]Onset: 561574-30-2997IncgxecrKmohw disorders and dislocations; trauma-related (20 sources)Dislocation of proximal interphalangeal joint of right little finger, initial encounter; Translations: [Dislocation of digit of hand]Onset: 676137-18-7115YthzwwycVsgsn connective tissue disease (4 sources)Pain in right finger(s); Translations: [PAIN IN RIGHT FINGERS]Onset: 07-44-8712KpfmuigbLrkmq connective tissue disease (1 source)Pain in right leg; Translations: [PAIN IN RIGHT LEG]Onset: 09-13-2021 EpisodicOther connective tissue disease (2 sources)Trigger finger, unspecified finger; Translations: [Trigger finger, unspecified finger]Onset: 68-71-2261ZbmxyuqoXtdrn gastrointestinal disorders (1 source)Constipation, unspecified; Translations: [CONSTIPATION UNSPECIFIED] Onset: 63-56-0604QthnjcnbMtoiy gastrointestinal disorders (20 sources)Dysphagia; Translations: [Dysphagia, unspecified]Onset: 06-10-2022 EpisodicOther gastrointestinal disorders (20 sources)Heartburn; Translations: [Heartburn]Onset: EpisodicOther lower respiratory disease (20 sources)Solitary nodule of lung; Translations: [Solitary pulmonary nodule] Onset: 005238-35-3005AsnlsrcmVkweq nervous system disorders (1 source)Complex regional pain syndrome type I of left lower limb; Translations: [Complex regional pain syndrome type 1 of left lower extremity] Residual codes; unclassified (20 sources)Insomnia; Translations: [Insomnia, unspecified]Onset: 01-23-2018 98-13-8920JsmducrhPtgrqyim codes; unclassified (20 sources)History of fundoplication; Translations: [Other specified postprocedural states]Onset: 989819-64-6167EgimrvefFzsifhcf codes; unclassified (2 sources)Pain, unspecified; Translations: [Pain, unspecified]Onset: 09-20-2024 EpisodicResidual codes; unclassified (2 sources)Pain; Translations: [Pain]Onset: 84-43-3579TelggcjwXspigsvhmzf; intervertebral disc disorders; other back problems (5 sources)Intervertebral disc disorders with radiculopathy, lumbar region; Translations: [Radiculopathy, lumbar region]Onset: 63-14-2280Xwaohzcg Results Test NameValueInterpretationReference EzxubLyrnbjct55rk [id number] by: VADIM DORADO on: 12/27/2024 10:48 AM Modules accepted: Level of ServiceNormalUniPremier Health Office Visiton 90-36-9193Cvdkfj-up [id number] Tasneem Camarillo N 1975 F Date Provider Department Center 12/21/2024 VADIM KISER MP ORTH[facility] MPORTHO No family history on file Level of Service:82231 NE OFFICE/OUTPATIENT ESTABLISHED SF MDM 10 MIN Reason for Visit and Comments: Follow-up [385529] Work Related Injury [[id number]] Pain [136]NormalWayne HealthCare Main CampusProvider Letteron 11-22-2024 Provider LetterProvider Letter November 22, 2024 TASNEEM CAMARILLO [address] [place] [phone] : 1975 Dear Tasneem, We have been trying to reach you with no success. It is important that you return our call regarding your referral to our office upon receiving this letter. Also, at the time of your call, please provide us with your current information. Thank you for your prompt attention to this matter. Sincerely, [facility] [address] [place], [place] [address]IzdyexZtpzizOhioHealth Shelby HospitalOffice Visiton 11-02-2024 Follow-up [id number] Tasneem Camarillo 1975 F Date Provider Department Center 11/02/2024 VADIM KISER MP ORTHO MPORTHO No family history on file Level of Service:64260 NE POSTOP FOLLOW UP VISIT RELATED TO ORIGINAL PX Reason for Visit and Comments: Follow-up [000746]NormalUnFulton County Health Center36on 06-42-260640Q just spoke to Julienne and we need something more specific then activities as tolerated. Workers comp will not accept this. ThanksNoKettering Health Hamilton36Thank you,[facility]36She can return to activities as tolerated, he did not put weight restrictions or anything,[facility]36Will she have a weight limit with the right hand or does he want her to remain off work while she works on returning to activities? Thanks,[facility] CenterTelephoneon [phone] [id number] Tasneem Camarillo 1975 F Date Provider Department Center 10/11/2024 VADIM KISER MP ORTHO MPORTHO No family history on fileNormAvita Health System Galion HospitalTelephone [id number] aTsneem Camarillo 1975 F Date Provider Department Center 10/11/2024 VADIM KISER MP ORTHO MPORTHO No family history on file Reason for Visit and Comments: WORK RESTRICTIONS [Other][facility] CenterOffice Visiton 83-30-7844Ddjatq-up [id number] Tasneem Camarillo 1975 F Date Provider Department Center 10/06/2024 VADIM KISER MP ORTHO MPORTHO No family history on file Level of Service:88321 NE POSTOP FOLLOW UP VISIT RELATED TO ORIGINAL PX Reason for Visit and Comments: Post-op [483][facility]36on 29-02-570304Iiax new letter was sent inNMartins Ferry Hospital36Patient called and states her work will not accept the note. They state that they have to have have: Return to work date with 0 restrictions Dx of injury And Physical signature of Please fax note to dept-Renay fax- [phone]. Patient # [phone]g Health Hamilton36Letter was written and sent, patient was informed[facility] 36Patient would like a call back, she wants her RTW note faxed to her HR dept- fax- [phone]. Or email [email or web address] HealthOrders Onlyon [phone] [id number] Tasneem Camarillo 1975 F Date Provider Department [place] 09/23/2024 803-REGAN MOREL MP ORTHO MPORTHO No family history on fileNormalUnimethodist [facility] HospitalOrders Only [id number] Tasneem Camarillo N 1975 F Date Provider Department [place] 09/23/2024 8[address] [facility] No family history on fileNormalUbaylor scott & [facility] [place] of Faith Community HospitalTelephoneon [id number] Tasneem Camarillo N 1975 Date Provider Department [place] 09/23/2024 PÉREZ HERNANDEZ MP ORTHO MPORTHO No family history on file Reason for Visit and Comments: work note [Other]NormalUnFulton County Health CenterHPon 13-88-9388II History Of Present Illness Tasneem Camarillo is a 49 y.o. female presenting with RIGHT small finger pain. Past Medical History Medical History[1] Surgical History Surgical History[2] Social History Social History Socioeconomic History Marital status: Spouse name: None Number of children: None Years of education: None Highest education level: None Occupational History None Tobacco Use Smoking status: Never Smokeless tobacco: Never Vaping Use Vaping status: Never Used Substance and Sexual Activity Alcohol use: Not Currently Drug use: Never Sexual activity: Defer Other Topics Concern None Social History Narrative None Social Drivers of Health Financial Resource Strain: Low Risk (02/26/2022) Overall Financial Resource Strain (CARDIA) Difficulty of Paying Living Expenses: Not very hard Food Insecurity: Not on file Transportation Needs: No Transportation Needs (02/26/2022) PRAPARE - Transportation Lack of Transportation (Medical): No Lack of Transportation (Non-Medical): No Physical Activity: Not on file Stress: No Stress Concern Present (02/26/2022) [place] of Occupational Health - Occupational Stress Questionnaire Feeling of Stress : Not at all Social Connections: Not on file Intimate Partner Violence: Unknown (07/13/2024) Humiliation, Afraid, Rape, and Kick questionnaire Fear of Current or Ex-Partner: No Emotionally Abused: Not on file Physically Abused: Not on file Sexually Abused: Not on file Housing Stability: Not on file Family History Family History[3] Allergies Allergies[4] Medications Prescriptions Prior to Admission[5] Last Recorded Vitals Visit Vitals OB Status Hysterectomy Smoking Status Never Relevant Lab Results No results found for: [...] complication is noted Electronically signed: Angeline Childers. Assessment & Plan Trigger finger, acquired No associated orders from this encounter found during lookback period of 72 hours. Principal Problem: Trigger finger, acquired RIGHT small finger DIP fusion, trigger release and any other indicated procedures. Consented. Gerard Lopez MD Orthopedic Surgery, PGY-4 Pager: [phone] 09/20/24 6:38 AM [1] Past Medical History: Diagnosis Date Anxiety Asthma childhood Back pain Bipolar 1 disorder (CMS/HCC) CKD (chronic kidney disease) stage 3 Complex regional pain syndrome type 1 CRPS (complex regional pain syndrome type I) Delayed emergence from general anesthesia Depression Dysphagia GERD (gastroesophageal reflux disease) Hiatal hernia Hypertension Kidney stone Migraines Painful orthopaedic hardware Trigger finger, acquired [2] Past Surgical History: Procedure Laterality Date APPENDECTOMY CHOLECYSTECTOMY COLONOSCOPY 10/11/2021 FINGER SURGERY Right 11/25/2022 FINGER SURGERY Right 05/27/2022 HARDWARE REMOVAL Right 01/07/2024 right finger HERNIA REPAIR HYSTERECTOMY UPPER GASTROINTESTINAL ENDOSCOPY 07/02/2023 [3] No family history on file. [4] Allergies Allergen Reactions Compazine [Prochlorperazine] Other Amoxicillin-Pot Clavulanate Rash and Other Metoclopramide Hives, Nausea And Vomiting, Unknown and Anxiety Palpitations Reglan [Metoclopramide Hcl] Anxiety Sulfa (Sulfonamide Antibiotics) Unknown, Hives and Nausea And Vomiting Sumatriptan Anxiety, Unknown, Other, Palpitations and Rash [5] Medications Prior to Admission Medication Sig Dispense Refill Last Dose/Taking atenoloL-chlorthalidone (Tenoretic) 50-25 mg tablet Take 1 tablet by mouth in the morning. bisacodyl (Dulcolax) 5 mg EC tablet 5 mg if needed each day. znltgitpps-wjrimftouxgbj-rwnc 50-325-40 mg tablet Take 1 tablet by mouth every 4 (four) hours if needed for headaches. hydrOXYzine pamoate (Vistaril) 25 mg capsule TAKE 1 CAPSULE BY MOUTH EVERY 8 HOURS NEEDED FOR ANXIETY lamoTRIgine (LaMICtal) 200 mg tablet Take 200 mg by mouth at bedtime. ondansetron (Zofran) 4 mg tablet Take 4 mg by mouth every 8 (eight) hours if needed. ondansetron ODT (Zofran-ODT) 4 mg disintegrating tablet DISSOLVE 1 TABLET ON THE TONGUE EVERY 8 HOURS NEEDED oxaprozin (Daypro) 600 mg tablet Take 600 mg by mouth two times daily. oxyCODONE-acetaminophen (Percocet) 5-325 mg tablet TAEK 1 TABLET BY MOUTH DAILY NEEDED PARoxetine (Paxil) 30 mg tablet Take 60 mg by mouth in the morning. pregabalin (Lyrica) 200 mg capsule Take 200 mg by mouth two times daily. tiZANidine (Zanaflex) 4 mg capsule 2 mg at bedtime.[facility] CenterNURSNOTEon 73-73-8103WHMEZPWTBF reviewed discharge instructions with patient and at bedside. No questions or concerns expressed at this time. RN received verbal sign out from Dr. Peres [facility] HospitalNURSNOTEPatient informed narrative writer she does not wish to fill any prescriptions with [facility] today. Patient already has pain medications and stool softners at home.[facility] HospitalOPNOTEon 29-54-3080QUPHMWSvzywezfs Note Patient: Tasneem Camarillo Date of Surgery: 09/20/2024 : 1975 Pre-operative Diagnosis: 1. 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 trigger digit right small finger Post-operative Diagnosis: same Operation: 1. Fusion distal interphalangeal joint right small finger (75287) 2. Trigger digit release right small finger Surgeon: Vadim Dorado MD Rural Route Carrier: MD Jose Herrera MD Staff: Tetryl Wringer Operator: Mohit Talamantes RN Scrub Person: Josephine Mckinley CST [place]ee Scrub: Barbara Guidry RN Anesthesia Type: Regional Indications: The patient is an 49 y.o. female with deformity of the right small finger that is making it difficult to use her hand. Tasneem's had a rough time with this finger after a fracture. She ultimately underwent a PIP joint fusion. She has a significant flexion deformity at the DIP joint. I was hoping that after removal of her hardware the extensor would start pulling through and we would gain some motion. Unfortunately, that has not happened. It was felt that a fusion of the DIP joint was indicated. Additionally, she also has a symptomatic trigger digit with tenderness over the A1 hollis of that same finger. We are going to do a trigger release as well. She is brought to the operating room today for that purpose. The risks and benefits of the procedure were explained prior to surgery, and with good understanding it is agreed to proceed. Procedure: The patient is brought to the operating room and placed on the table in a supine position. An axillary block had been administered per the anesthesia service in the holding area. The right upper extremity is placed on a hand table. A tourniquet is placed around the proximal right arm. He is given preoperative antibiotics and the right upper extremity is prepped and draped out in a sterile fashion. To begin the procedure, after standard timeout, the arm is exsanguinated with an Esmarch bandage and the tourniquet is inflated to 250 mmHg. We first did the trigger release on the small finger. A diagonal incision is made over the A1 region. [...] saline and closed with 5-0 Prolene suture. Using a 15 blade a dorsal midline incision was made over the distal interphalangeal joint. The extensor tendon is split sharply down the midline. Two skin hooks are used to retract the skin edges. Using a small rongeur we began debriding osteophytes from the dorsal surface of the joint. Once we had exposure of the joint the joint was decorticated using the small rongeur and small curettes. We tried to remove just a little bit more bone from the volar so we can flex the joint a few degrees when we fused it. Once we had the joint prepared, the joint was fused using a [employer] 1.7 mm headless compression screw. Using a guidepin from the micros set, we started at the tip of the finger and advanced the pin, under C-arm guidance, through the distal phalanx and across the DIP joint into the middle phalanx. Being happy with the pin position, a stab incision was made with a 15 blade at the tip of the finger around the pin. We held up a couple of screws and chose the 1 that would give us the best fixation. The pin was advanced proximally so that it did not come out when we drilled. The distal phalanx was overdrilled and we went across the DIP joint and partially into the middle phalanx with a drill bit. A 20 mm screw was placed on the guidepin and advanced until it was seated equally into each of the middle and distal phalanges. the guidepin was removed. Final AP and lateral x-rays were obtained. I was happy with the joint position and the hardware placement. The wound is irrigated thoroughly with normal saline solution. The extensor is reapproximated with 4-0 Vicryl and the skin is closed with 5-0 Prolene suture. A sterile dressing of Xeroflo gauze and 1 inch Makenzie is applied to the finger and secured with tape. The tourniquet was released and the drapes are removed. She is brought to the recovery area in stable condition, having tolerated the procedure well. Estimate Blood Loss: Minimal Total IV Fluids: Per anesthesia record Specimens: No specimens collected Implants: Implants Type Name Action Serial No. Wire 0.6mm kwire Used, Not Implanted Screw 1.7X20MM HEADLESS CANNULATED SCREW, LONG THREADED Implante (more content not included)...NormalUnFulton County Health CenterPOCT GLUCOSE METER UNSOLICITED RESULTSon 38-18-6211Hxrumwf [Mass/Vol]90 mg/eQNwwwxz50-000SmcljkkyflFulton County Health CenterComment on above:Order Comment: Waived Testing in the ED is performed under the ED CLIA certificate #[id number].Result Comment: [id number] By: #### [id number] ####[facility] (BEAKER)[address] [place], [place] [address]YI LUMBAR SPINE WO CONon 46-77-4830[place] [address] Magnetic Resonance Report Signed Patient: TASNEEM CAMARILLO MR#: [id number] : 1975 Acct:[id number] Age/Sex: 49 / F ADM Date: 09/13/24 Loc: MRI Attending Dr: Iraida Reynoso NP Ordering Physician: Iraida Reynoso NP Date of Service: 09/13/24 Procedure(s): MR lumbar spine wo con Accession Number(s): [id number] cc: Iraida Reynoso NP; Ryan PEPPER [place] [id number] Patient Name: TASNEEM CAMARILLO MRN: [id number] date: 1975 Sex: F Assigned Patient Location: MRI Current Patient Location: PM Accession/Order Number: [id number] Exam Date: 09/13/2024 19:31 Report Date: 09/13/2024 19:35 At the request of: IRAIDA REYNOSO NP Procedure: MR lumbar spine wo con MR lumbar spine wo con 09/13/2024 2:55 PM SIGNS AND SYMPTOMS: Spinal stenosis, lumbar region with neurogenic claudication PROTOCOL: Multiplanar multisequence MR images of the lumbar spine without IV contrast COMPARISON: None. FINDINGS: The bones of the lumbar spine are in anatomic alignment. There is preservation of vertebral body heights. There is mild intervertebral disc height loss at L4-5 and L5-S1. The marrow signal is within normal limits. The conus terminates at the mid L1 vertebral body level. No epidural or paraspinous fluid collection is appreciated. At T12-L1: There is a normal disc, central canal, and neural foramen. At L1-L2: There is a normal disc, central canal, and neural foramen. At L2-L3: There is a normal disc, central canal, and neural foramen. At L3-L4: There is a normal disc, central canal, and neural foramen. At L4-L5: Facet degenerative changes are present with a mild broad-based disc bulge. There is mild right neural foraminal narrowing without spinal canal narrowing. At L5-S1: There is a broad-based disc bulge with a focal left central disc protrusion. There is minimal spinal canal narrowing with mild right and moderate left neural foraminal narrowing. MR/MR lumbar spine wo con IMPRESSION: At L4-L5: Facet degenerative changes are present with a mild broad-based disc bulge. There is mild right neural foraminal narrowing without spinal canal narrowing. At L5-S1: There is a broad-based disc bulge with a focal left central disc protrusion. There is minimal spinal canal narrowing with mild right and moderate left neural foraminal narrowing. Impression dictated by: Kymberly Combs M.D. 09/13/2024 7:35 PM Dictation Location: [place] [address] Electronically authenticated by: [id number] Y Date: 09/13/2024 19:35 Dictated By: Kymberly Combs M.D. Signed By: 09/13/241937 DD/ 34 TD/TT: Kick Press Setter:TBHRadiology, Radiologist, MD - 09/13/2024 [place] [address] Magnetic Resonance Report Signed Patient: TASNEEM CAMARILLO MR#: [id number] : 1975 Acct:[id number] Age/Sex: 49 / F ADM Date: 09/13/24 Loc: MRI Attending Dr: Iraida Reynoso NP Ordering Physician: Iraida Reynoso NP Date of Service: 09/13/24 Procedure(s): MR lumbar spine wo con Accession Number(s): [id number] cc: Iraida Reyonso NP; Ryan PEPPER [address] [address] Patient Name: TASNEEM CAMARILLO MRN: [id number] date: 1975 Sex: F Assigned Patient Location: MRI Current Patient Location: PM Accession/Order Number: [id number] Exam Date: 09/13/2024 19:31 Report Date: 09/13/2024 19:35 At the request of: IRAIDA REYNOSO NP Procedure: MR lumbar spine wo con MR lumbar spine wo con 09/13/2024 2:55 PM SIGNS AND SYMPTOMS: Spinal stenosis, lumbar region with neurogenic claudication PROTOCOL: Multiplanar multisequence MR images of the lumbar spine without IV contrast COMPARISON: None. FINDINGS: The bones of the lumbar spine are in anatomic alignment. There is preservation of vertebral body heights. There is mild intervertebral disc height loss at L4-5 and L5-S1. The marrow signal is within normal limits. The conus terminates at the mid L1 vertebral body level. No epidural or paraspinous fluid collection is appreciated. At T12-L1: There is a normal disc, central canal, and neural foramen. At L1-L2: There is a normal disc, central canal, and neural foramen. At L2-L3: There is a normal disc, central canal, and neural foramen. At L3-L4: There is a normal disc, central canal, and neural foramen. At L4-L5: Facet degenerative changes are present with a mild broad-based disc bulge. There is mild right neural foraminal narrowing without spinal canal narrowing. At L5-S1: There is a broad-based disc bulge with a focal left central disc protrusion. There is minimal spinal canal narrowing with mild right and moderate left neural foraminal narrowing. MR/MR lumbar spine wo con IMPRESSION: At L4-L5: Facet degenerative changes are present with a mild broad-based disc bulge. There is mild right neural foraminal narrowing without spinal canal narrowing. At L5-S1: There is a broad-based disc bulge with a focal left central disc protrusion. There is minimal spinal canal narrowing with mild right and moderate left neural foraminal narrowing. Impression dictated by: Kymberly Combs M.D. 09/13/2024 7:35 PM Dictation Location: [place] Electronically authenticated by: [id number] Y Date: 09/13/2024 19:35 Dictated By: Kymberly Combs M.D. Signed By: 09/13/241937 DD/ 34 TD/TT: Kick Press Setter: RUTH HealthcareRadiology Study observation (narrative)University HospitalMR LUMBAR SPINE WO CONOrdered By: Radiologist Radiology on 81-48-9922UXUVUniversity Hospital Work Phone: [phone] 64-90-127304Acbdnhy is having new farms emailed to me and I will get it filled out and faxed over ASAPNMartins Ferry Hospital36Patient states she hasn't heard back if her FMLA paperwork was complete. I dont see anything scanned in.NormalWayne HealthCare Main CampusAbstracton [id number] Tasneem Camarillo 1975 F Date Provider Department Center 09/09/2024 REGAN JENNINGS MPRTSIDDHARTH No family history on fileNormalUniPremier HealthBacteria identified Cx Nom (U)on 76-13-3192GHYCUniversity HospitalNo Panel Informationon 40-70-4418Bkqxaidzm at: [facility] LabKeith [place] [id number] Revising Clerk: Dayron Hutchinson PhD, Phone: [phone] Culture Clean Catch Reflexon 45-49-8657Qvtypett identified Cx Nom (U)CommentNOSaint Luke's Health System Comment on above:Mixed urogenital erick Less than 10,000 colonies/mL [facility] HealthcareUrine cultureon 76-23-5875Hkoehxvc identified Cx Nom (U)Final reportUniversity Hospital36on 79-13-884941Twnkpft is scheduled for September 20NoMorrow County HospitalOrders Onlyon 46-24-2094Uegwbx [id number] Tasneem Camarillo 1975 F Date Provider Department Center 08/11/2024 REGAN JENNINGS MP No family history on [facility]36on 22-12-564830Cxpesdk returned call. Please call patient to schedule surgery. Patient # [phone] of [facility] Hhpmkr42xi LVM to call back to schedule surgeryNormalUniversJoint Township District Memorial Hospital36 on 16-12-346212AJI authorization on file for OUTPATIENT SX- RT SMALL FINGER DIP FUSION, RT SMALL FINGER TRIGGER FINGER RELEASE Valid 08/05/2024-10/05/2024NormalUniversJoint Township District Memorial HospitalTelephoneon [id number] Tasneem Camarillo Rafi 1975 F Date Provider Department Center 08/06/2024 3408-TRACY DORADO MP ORTHO MPORTHO No family history on file Reason for Visit and Comments: [facility] AUTH [Other]NormalUnFulton County Health CenterLaboratory - Cytologyon 98-27-6310Cqxljsogoy Cyto stain Nom (Cvx/Vag) [ID]CommentNOMS HealthcareComment on above:Esme Galvez, Child Support Investigator (ASCP)Cytology report Cyto stain Doc (Cvx/Vag)CommentNOMS HealthcareComment on above:NEGATIVE FOR INTRAEPITHELIAL LESION OR MALIGNANCY. CELLULAR CHANGES ASSOCIATED WITH ATROPHY ARE PRESENT. Cytology report Cyto stain.thin prep Doc (Cvx/Vag)CANCELEDNOMS HealthcareComment on above:The Thin Prep(R) Security Incident Response Engineer was unable to read this specimen. Therefore a manual review was performed. Result canceled by the ancillary. Statement of adequacy Cyto stain (Cvx/Vag) [Interp]CommentNOMS HealthcareComment on above:Satisfactory for evaluation. Endocervical component may not be distinguished in cases of atrophy. Laboratory - Microbiology and Antimicrobial susceptibilityon 20-18-4913OXH 16+18+31+33+35+39+45+51+52+56+58+59+66+68 DNA Probe+sig amp Ql (Cvx)Negative NegativeNOMS HealthcareComment on above:This nucleic acid amplification test detects fourteen high-risk HPV types (16,18,31,33,35,39,45,51,52,56,58,59,66,68) without differentiation. Microscopic observation Other stain Nom (Unsp spec).NOMS HealthcareLaboratory - Miscellaneous testson 80-89-4390Fyepicw comment (Unsp spec) [Interp]CommentNOIL HealthcareComment on above:The Pap smear is a screening test designed to aid in the detection of premalignant and malignant conditions of the uterine cervix. It is not a diagnostic procedure and should not be used as the sole means of detecting cervical cancer. Both false-positive and false-negative reports do occur. No Panel Informationon 35-51-5638Jmqkrhrei ICD code [Identifier]CommentNOIL HealthcareComment on above:Z01.419 Z12.4 Performed at: 01 - [facility] [id number] Revising Clerk: Syeda Ardon MD, Phone: [phone] Performed at: - [facility] [id number] Revising Clerk: Syeda Ardon MD, Phone: [phone] Specimen Comment: No. of containers..01 ThinPrep VialLABCOMCKITRICK HOS[facility]ITAL Healthcare Office Visiton 88-64-9219Jdjspu-up [id number] Tasneem Camarillo 1975 F Date Provider Department Center 07/13/2024 VADIM KISER MP ORTHO MPORTHO No family history on file Level of Service:27029 NE OFFICE/OUTPATIENT ESTABLISHED LOW MDM 20 MIN (GC) Reason for Visit and Comments: Follow-up [376398]NormalWayne HealthCare Main CampusAlanine aminotransferase [Enzymatic activity/volume] in Serum or PlasmaOrdered By: Yamil Leal on 29-33-5417BEG [Catalytic activity/Vol]Alanine aminotransferase [Enzymatic activity/volume] in Serum or Plasma7-Magruder Memorial HospitalAlbumin [Mass/volume] in Serum or Plasma by Bromocresol green (BCG) dye binding methoOrdered By: Yamil Leal on 87-00-6343Ahdfqmu BCG dye [Mass/Vol] Albumin [Mass/volume] in Serum or Plasma by Bromocresol green (BCG) dye binding metho3.5-5.7FMercy Health St. Vincent Medical CenterAlkaline phosphatase [Enzymatic activity/volume] in Serum or PlasmaOrdered By: Yamil Leal on 86-75-1388FPR [Catalytic activity/Vol]Alkaline phosphatase [Enzymatic activity/volume] in Serum or Zhodhk58-539GzaizayocMagruder Memorial HospitalAspartate aminotransferase [Enzymatic activity/volume] in Serum or PlasmaOrdered By: Yamil Leal on 91-46-3813RFJ [Catalytic activity/Vol]Aspartate aminotransferase [Enzymatic activity/volume] in Serum or Hpewya20-78IqkggprjjMagruder Memorial Hospital Basophils Auto (Bld) [#/Vol]Ordered By: Yamil Leal on 13-80-9970Cbxsezrhe (Bld) [#/Vol]Automated basophil count0.0-0.2FMercy Health St. Vincent Medical Center Basophils/100 WBC Auto (Bld)Ordered By: Yamil Leal on 62-09-7524Vfijvdzaq/100 WBC (Bld)Automated basophil %.Mag[facility]uder Memorial HospitalBilirubin.total [Mass/volume] in Serum or PlasmaOrdered By: Yamil Leal on 78-25-4453Lfsozhpxo [Mass/Vol]Bilirubin.total [Mass/volume] in Serum or Plasma0.3-1.0Magruder Memorial HospitalCT head/brain wo conon 85-33-1084IF head/brain wo con [facility] [address] CT Scan Report Signed Patient: Tasneem Camarillo MR#: [id number] : 1975 Acct:[id number] Age/Sex: 49 / F ADM Date: 06/12/24 Loc: ER Room: Type: [facility] ER Attending Dr: Copies to: Yamil [...] Nikolay Zuniga M.D.06/12/2024 6:24 PM Dictation Location: [place] [address] Transcribed By: [facility] 06/12/241823 Dictated By: Nikolay Zuniga MD 06/12/241820 Signed By: 06/12/241823[facility] Physician GroupCalcium [Mass/volume] in Serum or PlasmaOrdered By: Yamil Leal on 71-70-5774Sqosinx [Mass/Vol]Calcium [Mass/volume] in Serum or Plasma8.6-10.3FMercy Health St. Vincent Medical CenterCarbon dioxide, total [Moles/volume] in Serum or PlasmaOrdered By: Yamil Leal on 95-47-1185NP4 [Moles/Vol]Carbon dioxide, total [Moles/volume] in Serum or Plasma 21.0-31.0Mag[facility]uder Memorial HospitalChloride [Moles/volume] in Serum or PlasmaOrdered By: Yamil Leal on 51-91-9773Bqisyrua [Moles/Vol]Chloride [Moles/volume] in Serum or Nkdihw03-068MzbcgfflxMagruder Memorial HospitalComplete Blood Count Auto Diffon 64-37-0635Rarqsrrdw (Bld) [#/Vol]0.1 10*3/uLNormal 0.0-0.2The [facility] Physician GroupComment on above:Performed By: #### CMP, ESR, CBC ####[facility] [address] [place] [address] USABasophils/100 WBC (Bld)1.5 %Normal.The [facility] Physician GroupComment on above:Performed By: #### CMP, ESR, CBC ####[facility] [address] [place] [address] USAEosinophils (Bld) [#/Vol]0.1 10*3/uLNormal 0.0-0.45The [facility] Physician GroupComment on above:Performed By: #### CMP, ESR, CBC ####[facility] [address] [place] [address] USAEosinophils/100 WBC (Bld)2.1 %Normal.The [facility] Physician GroupComment on above:Performed By: #### CMP, ESR, CBC ####[place] [address] USAErythrocyte distribution width (RBC) [Ratio] 13.9 %Dwfaeq53.9-15.3The [facility] Physician GroupComment on above:Performed By: #### CMP, ESR, CBC ####[place] [address] USAHematocrit (Bld) [Volume fraction]37.9 %Czevsh30.0-46.4The [facility] Physician GroupComment on above:Performed By: #### CMP, ESR, CBC ####[address] Hemoglobin (Bld) [Mass/Vol]12.8 g/pBZazewv64.8-15.4The [facility] Physician Group Comment on above:Performed By: #### CMP, ESR, CBC ####[place] [address] USALymphocytes (Bld) [#/Vol]2.4 10*3/uL Normal1.00-4.8The [facility] Physician GroupComment on above:Performed By: #### CMP, ESR, CBC ####[place] [address] USALymphocytes/100 WBC (Bld)36.7 %Normal.The [facility] Physician Group Comment on above:Performed By: #### CMP, ESR, CBC ####[place] [id number] [facility] HOSPITALMCH (RBC) [Entitic mass]30.3 pgNormal 24.7-34.3The [facility] Physician GroupComment on above:Performed By: #### CMP, ESR, CBC ####[place] [id number] USAMCV (RBC) [Entitic vol]89.7 vGRzegqe70-731Qav [facility] Physician Group Comment on above:Performed By: #### CMP, ESR, CBC ####[address] [place] [address] USAMean Corpuscular HGB Conc33.8 g/dL Dxrmgt70.0-35.0The [facility] Physician GroupComment on above:Performed By: #### CMP, ESR, CBC ####[place] [id number] USAMonocytes (Bld) [#/Vol]0.6 10*3/uLNormal0.0-0.8The [facility] Physician GroupComment on above:Performed By: #### CMP, ESR, CBC ####[place] [id number] USAMonocytes/100 WBC (Bld)19.33 % Normal0.00-20.00The [facility] Physician GroupComment on above:Performed By: #### CMP, ESR, CBC ####[place] [id number] USAMonocytes/100 WBC (Bld)9.4 %Normal.The [facility] Physician GroupComment on above:Performed By: #### CMP, ESR, CBC ####[address] [address] USANeutrophils (Bld) [#/Vol]3.3 10*3/uL Normal1.8-7.7The [facility] Physician GroupComment on above:Performed By: #### CMP, ESR, CBC ####[place] [id number] USANeutrophils/100 WBC (Bld)50.3 %Normal.The [facility] Physician Group Comment on above:Performed By: #### CMP, ESR, CBC ####[place] [id number] USANRBC%0.1 /100{WBC}Normal0-0.5The [facility] Physician GroupComment on above:Performed By: #### CMP, ESR, CBC ####[place] [id number] [place] Platelet mean volume (Bld) [Entitic vol]8.7 fLNormal6.3-10.7The [facility] Physician GroupComment on above:Performed By: #### CMP, ESR, CBC ####[address] [address] USAPlatelets (Bld) [#/Vol]274 10*3/pINvthsw548-763Uda [facility] Physician GroupComment on above: Performed By: #### CMP, ESR, CBC ####[address] [address] USARBC (Bld) [#/Vol]4.23 10*6/uLNormal3.60-5.00The [facility] Physician GroupComment on above:Performed By: #### CMP, ESR, CBC ####[place] [id number] USAWBC (Bld) [#/Vol]6.5 10*3/uLNormal3.8-11.6The [facility] Physician GroupComment on above:Performed By: #### CMP, ESR, CBC ####[place] [id number] USAComprehensive Metabolic Panelon 06-12-2024 Albumin [Mass/Vol]4.2 g/dLNormal3.5-5.7The [facility] Physician GroupComment on above:Performed By: #### CMP, ESR, CBC ####[place] [address] USAAlbumin/Globulin [Mass ratio]1.4 {ratio}Normal The [facility] Physician GroupComment on above:Performed By: #### CMP, ESR, CBC ####[place] [id number] USAALP [Catalytic activity/Vol]67 U/ICmrgib79-808Nek [facility] Physician GroupComment on above:Performed By: #### CMP, ESR, CBC ####[place] [id number] USAALT [Catalytic activity/Vol]13 U/LNormal7-52 The [facility] Physician GroupComment on above:Performed By: #### CMP, ESR, CBC ####[address] [address] USAAnion gap [Moles/Vol]10.1 mmol/LNormal6.0-15.0The [facility] Physician GroupComment on above:Performed By: #### CMP, ESR, CBC ####[address] [address] USAAST [Catalytic activity/Vol]22 U/JPyzxta82-36 The [facility] Physician GroupComment on above:Performed By: #### CMP, ESR, CBC ####[address] [address] [place] Bilirubin [Mass/Vol]0.7 mg/dLNormal0.3-1.0The [facility] Physician GroupComment on above:Performed By: #### CMP, ESR, CBC ####[place] [address] USACalcium [Mass/Vol]8.8 mg/dLNormal8.6-10.3The [facility] Physician GroupComment on above:Performed By: #### CMP, ESR, CBC ####[address] [address] [place] Chloride [Moles/Vol]105 mmol/LJwfufu85-629Pxc [facility] Physician GroupComment on above:Performed By: #### CMP, ESR, CBC ####[address] [address] USACO2 [Moles/Vol]27.4 mmol/GFwmlxd17.0-31.0The [facility] Physician GroupComment on above:Performed By: #### CMP, ESR, CBC ####[address] [address] [place] Creatinine [Mass/Vol]1.27 mg/dLHigh0.60-1.20The [facility] Physician GroupComment on above:Performed By: #### CMP, ESR, CBC ####[address] [address] USACreatinine Clr Calc Psdrpqxe03.16 NormalThe [facility] Physician GroupComment on above:Result Comment: PERFORMED BY: [facility] [address] [place] [address] PATHOLOGIST [employer]NAGEMENT HAND[employer]ER NAHOMY BRADLEY M.D.Performed By: #### CMP, ESR, CBC ####[place] [id number] USAEstimated GFR51.520 mL/MinNormBaptist Medical Center Physician GroupComment on above:Performed By: #### CMP, ESR, CBC ####[place] [address] USAGlobulin (S) [Mass/Vol]3.0 g/dLNoAtrium Health Lincoln Physician Group Comment on above:Performed By: #### CMP, ESR, CBC ####[place] [id number] USAGlucose [Mass/Vol]93 mg/dLNormal 70-100The [facility] Physician GroupComment on above:Result Comment: Random Glucose Reference Range is dependent on time and content of last meal. Glucose of more than 200 mg/dL in a nonstressed, ambulatory subject supports the diagnosis of Diabetes Mellitus. ADA recommended reference rangePerformed By: #### CMP, ESR, CBC ####[place] [id number] USAPotassium [Moles/Vol] 3.5 mmol/LNormal3.5-5.1The [facility] Physician GroupComment on above:Performed By: #### CMP, ESR, CBC ####[place] [id number] USAProtein [Mass/Vol]7.2 g/dLNormal6.4-8.9The [facility] Physician GroupComment on above:Performed By: #### CMP, ESR, CBC ####[place] [address] USASodium [Moles/Vol]139 mmol/OGztewe088-668Pnn [facility] Physician GroupComment on above:Performed By: #### CMP, ESR, CBC ####[place] [id number] USAUrea nitrogen [Mass/Vol]29 mg/dLHigh7-25The [facility] Physician GroupComment on above:Performed By: #### CMP, ESR, CBC ####[facility] [address] [place] [address] USACreatinine [Mass/volume] in Serum or PlasmaOrdered By: Yamil Leal on 73-24-6284Araxbbibas [Mass/Vol] Creatinine [Mass/volume] in Serum or PlasmaHigh0.60-1.20[facility]uder Memorial HospitalECG 12 lead ECGon 28-55-5145HSE 12 lead ECGMIDDLETOWN [facility]OS[facility]ITAL Main [address] [place] [id number] Electrocardiograph Report Signed Patient: Tasneem Camarillo MR#: [id number] 477 : 1975 Acct:[id number] Age/Sex: 49 / F ADM Date: 06/12/24 Loc: ER Room: Type: [facility] ER Attending Dr: Ordering Provider: Yamil Leal [...] MUS Signed By Yamil Leal MD 06/14/[address] [place] [address] Physician GroupEosinophils Auto (Bld) [#/Vol]Ordered By: Yamil Leal on 09-30-3400Pvqnrqyqknq (Bld) [#/Vol]Automated eosinophil count 0.0-0.45[facility] HospitalEosinophils/100 WBC Auto (Bld)Ordered By: Yamil Leal on 64-46-7256Aaiiuzsqlbn/100 WBC (Bld)Automated eosinophil %. [facility] HospitalErythrocyte Sedimentation Rateon 64-24-6675GCW (Bld) [Velocity]17 mm/hNormal0-29The [facility] Physician GroupComment on above: Result Comment: PERFORMED BY: [facility] [address] [place] [id number] PATHOLOGIST F[employer] MANAG[employer] HANDLER NAHOMY BRADLEY M.D.Performed By: #### CMP, ESR, CBC ####[facility] [address] [place] [address] [facility] HOSPITALErythrocyte distribution width Auto (RBC) [Ratio]Ordered By: Yamil Leal on 06-12-2024 Erythrocyte distribution width (RBC) [Ratio]Erythrocyte distribution width [Ratio] by Automated count11.9-15.3FMercy Health St. Vincent Medical CenterErythrocyte sedimentation rate by Photometric methodOrdered By: Yamil Leal on 71-71-3991DMD Photometric method (Bld) [Velocity]Erythrocyte sedimentation rate by Photometric method0[facility] Memorial HospitalGlobulin Calc (S) [Mass/Vol]Ordered By: Yamil Leal on 00-32-6263Wobleknr (S) [Mass/Vol]Serum globulin measurement by calculation (mass/volume)[facility] HospitalGlucose [Mass/volume] in Serum or PlasmaOrdered By: Yamil Lael on 80-44-1963Sndsbiz [Mass/Vol]Glucose [Mass/volume] in Serum or Giofcu10-970CxmaspopfMagruder Memorial HospitalComment on above:ADA recommended reference rangeRandom Glucose Reference Range is dependent on time and content of last meal. Glucose of more than 200 mg/dL in a nonstressed, ambulatory subject supports the diagnosisof Diabetes Mellitus. Hematocrit Auto (Bld) [Volume fraction]Ordered By: Yamil Leal on 06-12-2024 Hematocrit (Bld) [Volume fraction]Hematocrit [Volume Fraction] of Blood by Automated count34.0-46.4FMercy Health St. Vincent Medical CenterHemoglobin [Mass/volume] in BloodOrdered By: Yamil Leal on 40-26-5600Ptcycizprs (Bld) [Mass/Vol]Hemoglobin [Mass/volume] in Blood11.8-15.4FMercy Health St. Vincent Medical CenterLeukocytes [#/volume] corrected for nucleated erythrocytes in Blood by Automated counOrdered By: Yamil Leal on 63-64-6789FCC corrected for nucl RBC Auto (Bld) [#/Vol]Leukocytes [#/volume] corrected for nucleated erythrocytes in Blood by Automated coun3.8-11.6FMercy Health St. Vincent Medical CenterLymphocytes Auto (Bld) [#/Vol]Ordered By: Yamil Leal on 49-25-7875Awqraovygeu (Bld) [#/Vol] Lymphocytes [#/volume] in Blood by Automated count1.00-4.8[facility] HospitalLymphocytes/100 WBC Auto (Bld)Ordered By: Yamil Leal on 06-12-2024 Lymphocytes/100 WBC (Bld)Lymphocytes/100 leukocytes in Blood by Automated count. [facility] CenterH Auto (RBC) [Entitic mass]Ordered By: Yamil Leal on 96-57-3420MOZ (RBC) [Entitic mass]MCH [Entitic mass] by Automated count 24.7-34.3FMercy Health St. Vincent Medical CenterMCHC Auto (RBC) [Mass/Vol]Ordered By: Yamil Leal on 92-64-1811PLBK (RBC) [Mass/Vol]MCHC [Mass/volume] by Automated count32.0-35.0[facility] HospitalMCV Auto (RBC) [Entitic vol] Ordered By: Yamil Leal on 75-88-4306PCM (RBC) [Entitic vol]MCV [Entitic volume] by Automated -084IukglfyxzMagruder Memorial HospitalMonocyte distribution width [Entitic volume] in Blood by AutomatedOrdered By: Yamil Leal on 06-12-2024 Monocyte distribution width Auto (Bld) [Entitic vol]Monocyte distribution width [Entitic volume] in Blood by Automated0.00-20.00[facility] HospitalMonocytes Auto (Bld) [#/Vol]Ordered By: Yamil Leal on 62-15-3319Sucovysen (Bld) [#/Vol]Automated blood monocyte count0.0-0.8[facility] HospitalMonocytes/100 WBC Auto (Bld)Ordered By: Yamil Leal on 06-12-2024 Monocytes/100 WBC (Bld)Automated monocyte %.[facility] Neutrophils Auto (Bld) [#/Vol]Ordered By: Yamil Leal on 15-21-0524Vtzelvbnvox (Bld) [#/Vol]Neutrophils [#/volume] in Blood by Automated count1.8-7.7FMercy Health St. Vincent Medical CenterNeutrophils/100 WBC Auto (Bld)Ordered By: Yamil Leal on 34-09-2454Fdkzygasimh/100 WBC (Bld)Automated neutrophil %.[facility] HospitalNo Panel InformationOrdered By: Yamil Leal on 78-47-7852Fsyxxpkvz GFR (CKD-EPI)51.520 mL/MinMagruder Memorial HospitalPharmacy Creatinine Clearance (Chem47.16[facility] HospitalNucleated erythrocytes [Presence] in Blood by Automated countOrdered By: Yamil Leal on 06-12-2024 Nucleated RBC Auto Ql (Bld)Nucleated erythrocytes [Presence] in Blood by Automated count0-0.5FMercy Health St. Vincent Medical CenterPlatelet mean volume Auto (Bld) [Entitic vol]Ordered By: Yamil Leal on 52-13-2119Oqgcjror mean volume (Bld) [Entitic vol]Platelet mean volume [Entitic volume] in Blood by Automated count6.3-10.7FMercy Health St. Vincent Medical CenterPlatelets Auto (Bld) [#/Vol] Ordered By: Yamil Leal on 38-31-4298Wywhfscew (Bld) [#/Vol]Platelets [#/volume] in Blood by Automated yokcq892-282DpfsxxousMagruder Memorial HospitalPotassium [Moles/volume] in Serum or PlasmaOrdered By: Yamil Leal on 47-47-6665Zgehvqjlu [Moles/Vol]Potassium [Moles/volume] in Serum or Plasma3.5-5.1FMercy Health St. Vincent Medical CenterProtein [Mass/volume] in Serum or PlasmaOrdered By: Yamil Leal on 32-85-6026Rxgevrl [Mass/Vol]Protein [Mass/volume] in Serum or Plasma6.4-8.9 [facility] HospitalRBC Auto (Bld) [#/Vol]Ordered By: Yamil Leal on 44-18-4304QSJ (Bld) [#/Vol]Erythrocytes [#/volume] in Blood by Automated count 3.60-5.00Trinity Health Systemerum or plasma albumin/globulin mass ratioOrdered By: Yamil Leal on 66-55-3167Xzcbpsz/Globulin [Mass ratio]Serum or plasma albumin/globulin mass ratioTrinity Health Systemerum or plasma anion gap determinationOrdered By: Yamil Leal on 61-06-7094Nyymx gap [Moles/Vol]Serum or plasma anion gap determination6.0-15.0Trinity Health Systemodium [Moles/volume] in Serum or PlasmaOrdered By: Yamil Leal on 86-42-2801Nfwesf [Moles/Vol]Sodium [Moles/volume] in Serum or Bhitvd931-773 [facility] HospitalUrea nitrogen [Mass/volume] in Serum or Plasma Ordered By: Yamil Leal on 05-19-7004Szrv nitrogen [Mass/Vol]Urea nitrogen [Mass/volume] in Serum or PlasmaHigh7-25[facility] Memorial HospitalWBC Auto (Bld) [#/Vol]Ordered By: Yamil Leal on 83-71-9571MDV (Bld) [#/Vol] Leukocytes [#/volume] in Blood by Automated count3.8-11.6FMercy Health St. Vincent Medical Center36on 42-83-635480Vhrcupk called and Work Comp nurse instructed her to call and give update. She needs to let Dr. Dorado know the pinky is discolored purplish and the first joint is swollen. Started discoloration in April. Finger is cold to the touch. Pain 4/10 steady. 0 numbness but is constant tingling. Patient is requesting a call back to advise. Patient # [phone] of Faith Community HospitalAppearance of UrineOrdered By: ROBINA SELLERS on 79-92-3069Efkwbioqii (U)Urine appearanceClear [facility] HospitalBasic Metabolic Panelon 56-56-0181Cuidq gap [Moles/Vol]9.3 mmol/LNormal6.0-15.0The [facility] Physician GroupComment on above:Performed By: #### CK, BMP, PT, HS TROP, CBC, PTT #### [facility] [address] [place] [address] USACalcium [Mass/Vol]8.4 mg/dLLow8.6-10.3The [facility] Physician GroupComment on above:Performed By: #### CK, BMP, PT, HS TROP, CBC, PTT #### [facility] [address] [place] [address] USAChloride [Moles/Vol]105 mmol/EBhaggu56-364Dks [facility] Physician [facility] CenterComment on above:Performed By: #### CK, BMP, PT, HS TROP, CBC, PTT #### [place] [address] USACO2 [Moles/Vol]28.6 mmol/PFrvloy75.0-31.0The [facility] Physician [facility] CenterComment on above:Performed By: #### CK, BMP, PT, HS TROP, CBC, PTT #### [place] [address] USACreatinine [Mass/Vol]1.53 mg/dLHigh0.60-1.20The [facility] Physician [facility] CenterComment on above:Performed By: #### CK, BMP, PT, HS TROP, CBC, PTT #### [place] [address] USACreatinine Clr Calc Qbnzwspk58.01NoAtrium Health Lincoln Physician [facility]idential CenterComment on above:Result Comment: PERFORMED BY: [place] [address] PATHOLOGIST F[employer] MANAGEMENT HANDLER NAHOMY BRADLEY M.D.Performed By: #### CK, BMP, PT, HS TROP, CBC, PTT #### [place] [address] USAEstimated GFR41.201 mL/MinNoMemorial Health System Selby General HospitalComment on above:Performed By: #### CK, BMP, PT, HS TROP, CBC, PTT #### [place] [address] USAGlucose [Mass/Vol]89 mg/oUUxbhfv73-693Lij [facility] Physician [facility] CenterComment on above:Result Comment: Random Glucose Reference Range is dependent on time and content of last meal. Glucose of more than 200 mg/dL in a nonstressed, ambulatory subject supports the diagnosis of Diabetes Mellitus. ADA recommended reference rangePerformed By: #### CK, BMP, PT, HS TROP, CBC, PTT #### [place] [address] USAPotassium [Moles/Vol]3.9 mmol/LNormal3.5-5.1The [facility] Physician [facility] CenterComment on above:Performed By: #### CK, BMP, PT, HS TROP, CBC, PTT #### [facility] [address] [place] [address] USASodium [Moles/Vol]139 mmol/ARvnbre848-176Tfw [facility] Physician [facility] CenterComment on above:Performed By: #### CK, BMP, PT, HS TROP, CBC, PTT #### [facility] [address] [place] [address] USAUrea nitrogen [Mass/Vol]28 mg/dLHigh7-25The [facility] Physician GroupComment on above:Performed By: #### CK, BMP, PT, HS TROP, CBC, PTT #### [facility] [address] [place] [address] USABasophils Auto (Bld) [#/Vol]Ordered By: Tad Barger on 31-83-6967Tbysktgnu (Bld) [#/Vol]Automated basophil count0.0-0.2FMercy Health St. Vincent Medical CenterBasophils/100 WBC Auto (Bld)Ordered By: Tad Barger on 38-35-3187Svudxjhgp/100 WBC (Bld)Automated basophil %.[facility] Memorial HospitalBilirubin Test strip Ql (U)Ordered By: ROBINA SELLERS on 05-25-2024 Bilirubin Ql (U)Bilirubin.total [Presence] in Urine by Test stripNegative [facility] HospitalCOVID Cepheid NegativeOrdered By: Tad Barger on 79-05-4566LUFI-CoV-2 (COVID-19) Ab IA QlCOVID CepheidNegativeMagruder Memorial HospitalComment on above:This is a duplicate Cepheid Xpert Xpress CoV-2/Flu/RSV Plus RNA by RT-PCR result to be used for statistical tracking purpose only.COVID-19 / Flu A/B / RSV PCRon 99-09-8639TLYP-CoV-2 (COVID-19) RNA MARIA+probe Ql (Unsp spec)COVID-19 Cepheid Result Negative for SARS-CoV-2 RNA by [...] or Cepheid Disclaimer revoked sooner. PERFORMED BY: [facility] [address] [place] [address] PATHOLOGIST FUEL MANAGEMENT HANDLER NAHOMY BRADLEY M.D.[facility] Physician GroupComment on above: Performed By: #### CEPHEID NEG, COVID19 FLU RSV #### [facility] [address] [place] [address] USACT head/brain wo conon 11-87-3035IZ head/brain wo con [facility] [address] [place] [address] CT Scan Report Signed Patient: Tasneem Camarillo MR#: [id number] 477 : 1975 Acct:[id number] Age/Sex: 49 / F ADM Date: 05/25/24 Loc: ER Room: Type: PRE ER Attending Dr: Copies to: ROBINA SELLERS Ordering Provider: ROBINA SELLERS Date of Service: 05/25/24 CT/CT head/brain wo [...] ABNORMALITY. Impression dictated by: Roel Curtis Jr., D.OJerman05/25/2024 2:41 PM Dictation Location: [place] [address] Transcribed By: [facility] 05/25/24 144 Dictated By: Roel Curtis Jr, DO 05/25/24 144 Signed By: 05/25/24 1441[facility] Physician GroupCalcium [Mass/volume] in Serum or PlasmaOrdered By: Tad Barger on 12-65-7243Sfrzawc [Mass/Vol]Calcium [Mass/volume] in Serum or PlasmaLow8.6-10.3FMercy Health St. Vincent Medical Center Carbon dioxide, total [Moles/volume] in Serum or PlasmaOrdered By: Tad Barger on 18-71-1015EP5 [Moles/Vol]Carbon dioxide, total [Moles/volume] in Serum or Xqosek98.0-31.0[facility] HospitalCepheid COVID PCR Negativeon 28-21-3718RCPF-CoV-2 (COVID-19) RNA MARIA+probe Ql (Unsp spec)NegativeNormal NegativeThe [facility] Physician GroupComment on above:Result Comment: This is a duplicate Cepheid Xpert Xpress CoV-2/Flu/RSV Plus RNA by RT-PCR result to be used for statistical tracking purpose only. PERFORMED BY: [place] [address] PATHOLOGIST FUEL MANAGEMENT HANDLER NAHOMY BRADLEY M.D.Performed By: #### CEPHEID NEG, COVID19 FLU RSV ####[facility] [address] [place] [address] [place] Chloride [Moles/volume] in Serum or PlasmaOrdered By: Tad Barger on 05-25-2024 Chloride [Moles/Vol]Chloride [Moles/volume] in Serum or Oqlsav40-687Wpqxwywum[address] [place], [place] [address]Color Auto (U)Ordered By: PROVIDER TEMP on 05-25-2024 Color (U)Color of Urine by AutoYellowMagruder Memorial HospitalComplete Blood Count Auto Diffon 02-91-2825Ejbhvlbtx (Bld) [#/Vol]0.0 10*3/uLNormal 0.0-0.2The [facility] Physician GroupComment on above:Result Comment: PERFORMED BY: [place] [address] PATHOLOGIST FUEL MANAGEMENT HANDLER NAHOMY BRADLEY M.D.Performed By: #### CK, BMP, PT, HS TROP, CBC, PTT #### [facility] [address] [place] [address] USABasophils/100 WBC (Bld)0.3 %Normal.The [facility] Physician GroupComment on above:Performed By: #### CK, BMP, PT, HS TROP, CBC, PTT #### [place] [id number] USAEosinophils (Bld) [#/Vol]0.2 10*3/uLNormal0.0-0.45The [facility] Physician GroupComment on above:Performed By: #### CK, BMP, PT, HS TROP, CBC, PTT #### [place] [address] USAEosinophils/100 WBC (Bld)2.8 %Normal.The [facility] Physician GroupComment on above:Performed By: #### CK, BMP, PT, HS TROP, CBC, PTT #### [place] [address] USAErythrocyte distribution width (RBC) [Ratio]14.0 %Normal 11.9-15.3The [facility] Physician GroupComment on above:Performed By: #### CK, BMP, PT, HS TROP, CBC, PTT #### [place] [address] USAHematocrit (Bld) [Volume fraction]33.5 %Low34.0-46.4The [facility] Physician GroupComment on above:Performed By: #### CK, BMP, PT, HS TROP, CBC, PTT #### [place] [address] USAHemoglobin (Bld) [Mass/Vol]11.1 g/dLLow11.8-15.4The [facility] Physician GroupComment on above:Performed By: #### CK, BMP, PT, HS TROP, CBC, PTT #### [place] [address] USALymphocytes (Bld) [#/Vol]2.7 10*3/uLNormal1.00-4.8The [facility] Physician GroupComment on above:Performed By: #### CK, BMP, PT, HS TROP, CBC, PTT #### [place] [address] USALymphocytes/100 WBC (Bld)45.5 %Normal.The [facility] Physician GroupComment on above:Performed By: #### CK, BMP, PT, HS TROP, CBC, PTT #### [place] [address] USAMCH (RBC) [Entitic mass]29.9 cjHebrgm81.7-34.3The [facility] Physician GroupComment on above:Performed By: #### CK, BMP, PT, HS TROP, CBC, PTT #### [place] [address] USAMCV (RBC) [Entitic vol]90.3 fOAjtmga73-723Aef [facility] Physician GroupComment on above:Performed By: #### CK, BMP, PT, HS TROP, CBC, PTT #### [place] [address] USAMean Corpuscular HGB Conc33.1 g/wOVfejfh27.0-35.0The [facility] Physician GroupComment on above:Performed By: #### CK, BMP, PT, HS TROP, CBC, PTT #### [place] [address] USAMonocytes (Bld) [#/Vol]0.4 10*3/uLNormal0.0-0.8The [facility] Physician GroupComment on above:Performed By: #### CK, BMP, PT, HS TROP, CBC, PTT #### [place] [address] USAMonocytes/100 WBC (Bld)18.88 %Normal0.00-20.00The [facility] Physician GroupComment on above:Performed By: #### CK, BMP, PT, HS TROP, CBC, PTT #### [place] [address] USAMonocytes/100 WBC (Bld)7.2 %Normal.The [facility] Physician GroupComment on above:Performed By: #### CK, BMP, PT, HS TROP, CBC, PTT #### [place] [address] USANeutrophils (Bld) [#/Vol]2.6 10*3/uLNormal1.8-7.7The [facility] Physician GroupComment on above:Performed By: #### CK, BMP, PT, HS TROP, CBC, PTT #### [place] [address] USANeutrophils/100 WBC (Bld)44.2 %Normal.The [facility] Physician GroupComment on above:Performed By: #### CK, BMP, PT, HS TROP, CBC, PTT #### [facility] [address] [place] [address] USANRBC%0.2 /100{WBC}Normal0-0.5The [facility] Physician Group Comment on above:Performed By: #### CK, BMP, PT, HS TROP, CBC, PTT #### [facility] [address] [place] [address] USAPlatelet mean volume (Bld) [Entitic vol]8.5 fLNormal 6.3-10.7The [facility] Physician GroupComment on above:Performed By: #### CK, BMP, PT, HS TROP, CBC, PTT #### [place] [address] USAPlatelets (Bld) [#/Vol]247 10*3/sXOeiiul881-558Bzf [facility] Physician GroupComment on above:Performed By: #### CK, BMP, PT, HS TROP, CBC, PTT #### [place] [address] USARBC (Bld) [#/Vol]3.72 10*6/uLNormal3.60-5.00The [facility] Physician GroupComment on above:Performed By: #### CK, BMP, PT, HS TROP, CBC, PTT #### [place] [address] USAWBC (Bld) [#/Vol]5.8 10*3/uLNormal3.8-11.6The [facility] Physician GroupComment on above:Performed By: #### CK, BMP, PT, HS TROP, CBC, PTT #### [place] [address] USACreatine Kinaseon 60-11-5718FJ [Catalytic activity/Vol]178 U/YOulefz88-583Yqq [facility] Physician GroupComment on above:Performed By: #### CK, BMP, PT, HS TROP, CBC, PTT #### [place] [address] USACreatine kinase [Enzymatic activity/volume] in Serum or PlasmaOrdered By: Tad Barger on 81-82-9839JZ [Catalytic activity/Vol]Creatine kinase [Enzymatic activity/volume] in Serum or Greuxh56-414BnhuhboqcMagruder Memorial HospitalCreatinine [Mass/volume] in Serum or PlasmaOrdered By: Tad Barger on 99-77-2816Sfsijctlkv [Mass/Vol]Creatinine [Mass/volume] in Serum or Plasma High0.60-1.20[facility] Memorial HospitalECG 12 lead ECGon 77-29-2140UFT 12 lead ECGMIDDLETOWN [place] [address] Electrocardiograph Report Signed Patient: Tasneem Camarillo MR#: [id number] 477 : 1975 Acct:[id number] Age/Sex: 49 / F ADM Date: 05/25/24 Loc: ER Room: Type: [facility] ER Attending Dr: Ordering Provider: Tad [...] was found Confirmed by Tad Barger DO ([id number]) on 05/25/2024 7:17:06 PM Referred By: Electronically Signed By: Tad Barger DO Transcribed By: MUS Signed By Tad Barger DO [address] [place] [address] Physician GroupEosinophils Auto (Bld) [#/Vol]Ordered By: Tad Barger on 36-74-3999Orgvpsbyqog (Bld) [#/Vol]Automated eosinophil count 0.0-0.45[facility] Memorial HospitalEosinophils/100 WBC Auto (Bld)Ordered By: Tad Barger on 10-92-0183Hyltxjpzrsv/100 WBC (Bld)Automated eosinophil %. [facility] Memorial HospitalErythrocyte distribution width Auto (RBC) [Ratio]Ordered By: Tad Barger on 23-86-4023Ykpwamtjiav distribution width (RBC) [Ratio]Erythrocyte distribution width [Ratio] by Automated count11.9-15.3 [facility] HospitalGlucose [Mass/volume] in Serum or PlasmaOrdered By: Tad Barger on 59-42-7806Zuwbfmm [Mass/Vol]Glucose [Mass/volume] in Serum or Cvonoh78-235ViuwwkfrqMagruder Memorial HospitalComment on above:ADA recommended reference rangeRandom Glucose Reference Range is dependent on time and content of last meal. Glucose of more than 200 mg/dL in a nonstressed, ambulatory subject supports the diagnosisof Diabetes Mellitus.Glucose [Mass/volume] in Urine by Test stripOrdered By: ROBINA SELLERS on 53-52-3338Jyhpvkp Test strip (U) [Mass/Vol]Glucose [Mass/volume] in Urine by Test stripNormalMagruder Memorial HospitalHematocrit Auto (Bld) [Volume fraction]Ordered By: Tad Barger on 87-87-8883Wbjagmvyzj (Bld) [Volume fraction]Hematocrit [Volume Fraction] of Blood by Automated ltrtkGmr30.0-46.4FMercy Health St. Vincent Medical CenterHemoglobin Test strip Ql (U)Ordered By: ROBINA SELLERS on 42-78-8756Snblwbxcps Ql (U) Hemoglobin [Presence] in Urine by Test stripNegativeMagruder Memorial HospitalHemoglobin [Mass/volume] in BloodOrdered By: Tad Barger on 05-25-2024 Hemoglobin (Bld) [Mass/Vol]Hemoglobin [Mass/volume] in OkwciDrv93.8-15.4 [facility] HospitalINR in Platelet poor plasma by Coagulation assayOrdered By: Tad Barger on 13-45-3363GWT Coag (PPP) [Relative time]INR in Platelet poor plasma by Coagulation assayMagruder Memorial Hospital Comment on above:INR Therapeutic Range A) Pre- and Peroperative OAT started two weeks before surgery. NOT HIP SURGERY: 1.5 - 2.5 HIP SURGERY: 2 - 3B) Primary and secondary prevention of venous THROMBOSIS: 2 - 3C) Active venous thrombosis, pulmonary embolismand prevention of recurrent venous thrombosis: 2 - 3D) Preve ntion of arterial thromboembolismincluding patients with mechanical heart valves: 3 - 4.5Ketones Test strip Ql (U)Ordered By: PROVIDER TEMP on 05-25-2024 Ketones Ql (U)Ketones [Presence] in Urine by Test stripNegOhioHealth Doctors HospitalLeukocyte esterase [Presence] in Urine by Test strip Ordered By: PROVIDER TEMP on 17-90-6251Itcohazye esterase Test strip Ql (U) Leukocyte esterase [Presence] in Urine by Test stripNegOhioHealth Doctors HospitalLeukocytes [#/volume] corrected for nucleated erythrocytes in Blood by Automated counOrdered By: Tad Barger on 41-12-0241GQP corrected for nucl RBC Auto (Bld) [#/Vol]Leukocytes [#/volume] corrected for nucleated erythrocytes in Blood by Automated coun3.8-11.6FMercy Health St. Vincent Medical Center Lymphocytes Auto (Bld) [#/Vol]Ordered By: Tad Barger on 95-17-9594Irskgwghtrl (Bld) [#/Vol]Lymphocytes [#/volume] in Blood by Automated count1.00-4.8[facility] HospitalLymphocytes/100 WBC Auto (Bld)Ordered By: Tad Barger on 00-60-2482Uhuqdqfgype/100 WBC (Bld)Lymphocytes/100 leukocytes in Blood by Automated count.[facility] Auto (RBC) [Entitic mass] Ordered By: Tad Barger on 30-93-2613DQF (RBC) [Entitic mass]MCH [Entitic mass] by Automated count24.7-34.3FSelect Medical Specialty Hospital - Cincinnati NorthHC Auto (RBC) [Mass/Vol]Ordered By: Tad Barger on 01-31-2489EPXY (RBC) [Mass/Vol]MCHC [Mass/volume] by Automated count32.0-35.0Ohio[facility] Health CenterV Auto (RBC) [Entitic vol]Ordered By: Tad Barger on 45-86-5372ZMN (RBC) [Entitic vol]MCV [Entitic volume] by Automated gpiny45-052LoxuecoiiMagruder Memorial HospitalMonocyte distribution width [Entitic volume] in Blood by AutomatedOrdered By: Tad Barger on 16-01-9924Xgbzuwyx distribution width Auto (Bld) [Entitic vol]Monocyte distribution width [Entitic volume] in Blood by Automated0.00-20.00 [facility] HospitalMonocytes Auto (Bld) [#/Vol]Ordered By: Tad Barger on 22-30-8572Yorlmwyri (Bld) [#/Vol]Automated blood monocyte count0.0-0.8 [facility] HospitalMonocytes/100 WBC Auto (Bld)Ordered By: Tad Barger on 83-08-7788Untxuzypd/100 WBC (Bld)Automated monocyte %.[facility] HospitalNeutrophils Auto (Bld) [#/Vol]Ordered By: Tad Barger on 69-58-3473Grsiltkkupw (Bld) [#/Vol]Neutrophils [#/volume] in Blood by Automated count1.8-7.7FMercy Health St. Vincent Medical CenterNeutrophils/100 WBC Auto (Bld) Ordered By: Tad Barger on 17-94-3227Omyyspizrgc/100 WBC (Bld)Automated neutrophil %.[facility] HospitalNitrite Test strip Ql (U)Ordered By: PROVIDER TEMP on 29-48-7722Zjchynm Ql (U)Nitrite [Presence] in Urine by Test stripNegativeMagruder Memorial HospitalNo Panel InformationOrdered By: Tad Barger on 54-53-9073Ttcapfvpe GFR (CKD-EPI)41.201 mL/MinMagruder Memorial HospitalPharmacy Creatinine Clearance (Chem40.01[facility] HospitalNucleated erythrocytes [Presence] in Blood by Automated countOrdered By: Tad Barger on 31-09-3386Obmydkfwz RBC Auto Ql (Bld)Nucleated erythrocytes [Presence] in Blood by Automated count0-0.5FMercy Health St. Vincent Medical Center Partial Thromboplastin Timeon 48-46-5156kMPP Coag (Bld) [Time]27.5 sNormal 25.1-36.5The [facility] Physician GroupComment on above:Result Comment: A hematocrit value greater than 55% may lead to inaccurate results in coagulation testing. Patients having hematocrit values >55% require a special collection tube for coagulation studies. Please contact the laboratory at [phone] for redraw instructions. PERFORMED BY: [facility] [address] [place] [address] PATHOLOGIST FUEL MANAGEMENT HANDLER NAHOMY BRADLEY M.D.Performed By: #### CK, BMP, PT, HS TROP, CBC, PTT #### [facility] [address] [place] [address] USAPlatelet mean volume Auto (Bld) [Entitic vol]Ordered By: Tad Barger on 14-59-0922Muwmpxcn mean volume (Bld) [Entitic vol]Platelet mean volume [Entitic volume] in Blood by Automated count6.3-10.7FMercy Health St. Vincent Medical CenterPlatelets Auto (Bld) [#/Vol]Ordered By: Tad Barger on 05-25-2024 Platelets (Bld) [#/Vol]Platelets [#/volume] in Blood by Automated wpxyz361-696 [facility] HospitalPotassium [Moles/volume] in Serum or Plasma Ordered By: Tad Barger on 02-86-9637Acdejvnrj [Moles/Vol]Potassium [Moles/volume] in Serum or Plasma3.5-5.1FMercy Health St. Vincent Medical CenterProtein Test strip (U) [Mass/Vol]Ordered By: ROBINA SELLERS on 43-68-8877Hxtrixs (U) [Mass/Vol]Protein [Mass/volume] in Urine by Test stripNegativeMagruder Memorial HospitalProthrombin Time INRon 39-17-6604AZD Coag (PPP) [Relative time] 0.8 {INR}NormalThe [facility] Physician GroupComment on above:Result Comment: INR Therapeutic Range A) Pre- and [...] patients with mechanical heart valves: 3 - 4.5Performed By: #### CK, BMP, PT, HS TROP, CBC, PTT #### [facility] [address] [place] [id number] USAPT Coag (PPP) [Time]9.7 sNormal9.0-12.9The [facility] Physician GroupComment on above:Result Comment: A hematocrit value greater than 55% may lead to inaccurate results in coagulation testing. Patients having hematocrit values >55% require a special collection tube for coagulation studies. Please contact the laboratory at [phone] for redraw instructions.Performed By: #### CK, BMP, PT, HS TROP, CBC, PTT #### [facility] [address] [place] [address] USAProthrombin time (PT)Ordered By: Tad Barger on 05-25-2024 PT Coag (PPP) [Time]Prothrombin time (PT)9.0-12.9[facility] HospitalComment on above:A hematocrit value greater than 55% may lead to inaccurate results in coagulation testing. Patientshaving hematocrit values >55% require a special collection tube for coagulation studies. Please contact the laboratory at [phone] for redraw instructions.RBC Auto (Bld) [#/Vol]Ordered By: Tad Barger on 81-37-5119LXZ (Bld) [#/Vol]Erythrocytes [#/volume] in Blood by Automated count3.60-5.00[facility] HospitalRespiratory specimen influenza A virus, influenza B virus, respiratory syncytical virOrdered By: Tad Barger on 40-80-2103AKOE-CoV-2 (COVID-19) RNA MARIA+probe Ql (Unsp spec) Respiratory specimen influenza A virus, influenza B virus, respiratory syncytical virTrinity Health Systemerum or plasma anion gap determinationOrdered By: Tad Barger on 31-52-5428Bmvcf gap [Moles/Vol]Serum or plasma anion gap determination6.0-15.0Trinity Health Systemodium [Moles/volume] in Serum or PlasmaOrdered By: Tad Barger on 96-10-7099Prxfjp [Moles/Vol]Sodium [Moles/volume] in Serum or Trszvf804-891WwjgkupiyTrinity Health Systempecific gravity Test strip (U) [Rel density]Ordered By: ROBINA TEMP on 58-43-2604Kcxrkyxl gravity (U) [Rel density]Specific gravity of Urine by Test strip1.001-1.030[facility] HospitalTroponin I High Sensitivityon 12-48-6973Orcgbcbj I High Yiumyxkdiyg8Ellsar7-70Xsb [facility] Physician GroupComment on above:Result Comment: The Troponin units of report have been changed to meet the Chest Pain Accreditation requirement, element EC5.M1l2. Troponin units are changed from pg/ml to ng/L. Also, the decimal is removed and results are in whole numbers. PERFORMED BY: [facility] [address] [place] [address] PATHOLOGIST FUEL MANAGEMENT HANDLER NAHOMY BRADLEY M.D.Performed By: #### CK, BMP, PT, HS TROP, CBC, PTT #### [facility] [address] [place] [address] USATroponin I.cardiac [Mass/volume] in Serum or Plasma by Detection limit <= 0.01 ng/Ordered By: Tad Barger on 40-13-2291Fswtyxgi I.cardiac DL <= 0.01 ng/mL [Mass/Vol]Troponin I.cardiac [Mass/volume] in Serum or Plasma by Detection limit <= 0.01 ng/0-15[facility] Comment on above:The Troponin units of report have been changed to meet the Chest Pain Accreditation requirement, element EC5.M1l2. Troponin units are changed from pg/ml to ng/L. Also, the decimal is removed and results are in whole numbers.Urea nitrogen [Mass/volume] in Serum or PlasmaOrdered By: Tad Barger on 13-31-7564Tkat nitrogen [Mass/Vol]Urea nitrogen [Mass/volume] in Serum or PlasmaMontgomery General Hospital7-25[facility] Memorial HospitalUrinalysison 05-25-2024 Appearance (U)ClearNormalClearThe [facility] Physician GroupComment on above: Order Comment: Name Collection Type:: Clean-Voided MidstreamPerformed By: #### UA ####[facility] [place] [address] [place] Bilirubin,UrineNegativeNormalNegativeThe [facility] Physician GroupComment on above:Order Comment: Name Collection Type:: Clean-Voided MidstreamPerformed By: #### UA ####[facility] [place] [address] USAColor (U)Light-YellowNormalYellowThe [facility] Physician GroupComment on above:Order Comment: Name Collection Type:: Clean-Voided MidstreamPerformed By: #### UA ####[address] [address] USAGlucose Ql (U)NormalNormalNormalThe [facility] Physician GroupComment on above:Order Comment: Name Collection Type:: Clean-Voided MidstreamPerformed By: #### UA ####[address] [address] USAKetones Ql (U)NegativeNormalNegativeThe [facility] Physician GroupComment on above:Order Comment: Name Collection Type:: Clean-Voided MidstreamPerformed By: #### UA ####[address] [address] USALeukocyte esterase Test strip Ql (U)NegativeNormalNegativeThe [facility] Physician GroupComment on above:Order Comment: Name Collection Type:: Clean- Voided MidstreamPerformed By: #### UA ####[address] [address] USANitrite,UrineNegativeNormalNegativeThe [facility] Physician GroupComment on above:Order Comment: Name Collection Type:: Clean-Voided MidstreamPerformed By: #### UA ####[address] [address] USAOccult Blood,UrineNegativeNormal NegativeThe [facility] Physician GroupComment on above:Order Comment: Name Collection Type:: Clean-Voided MidstreamResult Comment: PERFORMED BY: [facility] [address] [place] [address] PATHOLOGIST FUEL MANAGEMENT HANDLER NAHOMY BRADLEY M.D.Performed By: #### UA ####[address] [address] USApH (U)5.5 [pH]Normal5.0-9.0The [facility] Physician GroupComment on above:Order Comment: Name Collection Type:: Clean-Voided MidstreamPerformed By: #### UA ####[place] [address] [place] [address] USAProtein,UrineNegativeNormalNegativeThe [facility] Physician GroupComment on above:Order Comment: Name Collection Type:: Clean-Voided MidstreamPerformed By: #### UA ####[address] [address] USASpecificy [place],Urine1.016Normal 1.001-1.030The [facility] Physician GroupComment on above:Order Comment: Name Collection Type:: Clean-Voided MidstreamPerformed By: #### UA ####[address] [address] USAUrobilinogen,Urine NormalNormalNormalThe [facility] Physician GroupComment on above:Order Comment: Name Collection Type:: Clean-Voided MidstreamPerformed By: #### UA ####[address] [address] USAUrobilinogen Test strip (U) [Mass/Vol]Ordered By: ROBINA SELLERS on 43-35-6018Beoooivqkwwf (U) [Mass/Vol]Urobilinogen [Mass/volume] in Urine by Test stripNoPaulding County HospitalWBC Auto (Bld) [#/Vol]Ordered By: Tad Barger on 22-98-7598YKY (Bld) [#/Vol]Leukocytes [#/volume] in Blood by Automated count 3.8-11.6FMercy Health St. Vincent Medical CenterX-ray reportOrdered By: Roel Curtis on 80-83-3582Wmdhr reportMIDDLETOWN HOSPITAL Main [address] [place] [address] XRay Report Signed Patient: Tasneem Camarillo MR#: [id number] : 1975 Acct:[id number] Age/Sex: 49 / F ADM Date: 5 Loc: ER Room: Type: PRE ER Attending Dr: Copies to: ROBINA SELLERS~ Ordering Provider: ROBINA SELLERS Date of Service: 05/25/24 XR/XR chest 1V portable: Neuro Symptoms/Deficit SINGLE VIEW CHEST CLINICAL HISTORY: Blurred vision. COMPARISON: Chest 03/24/2023 FINDINGS: Heart normal size. Lungs are clear. No free air. XR/XR chest 1V portable IMPRESSION: NO ACUTE FINDINGS Impression dictated by: Roel Curtis Jr., D.O.05/25/2024 2:39 PM Dictation Location: RADIO-PC-22 Transcribed By: YESY 05/25/24 143 Dictated By: Roel Curtis Jr, DO 05/25/24 143 Signed By: 05/25/24 1439 [facility] HospitalXR chest 1V portableon 47-35-7110EP chest 1V portableMIDDLETOWN [place] [address] XRay Report Signed Patient: Tasneem Camarillo MR#: [id number] : 1975 Acct:[id number] Age/Sex: 49 / F ADM Date: 05/25/24 [...] IMPRESSION: NO ACUTE FINDINGS Impression dictated by: Roel Curtis Jr., D.O.05/25/2024 2:39 PM Dictation Location: RADIO--22 Transcribed By: YESY 05/25/24 1439 Dictated By: Roel Curtis Jr, DO 05/25/24 143 Signed By: 05/25/24 1439[facility] Physician GroupaPTT in Platelet poor plasma by Coagulation assayOrdered By: Tad Barger on 32-03-4335wZGP Coag (PPP) [Time] Activated partial thromboplastin time (aPTT) in platelet poor plasma by coagulation a25.1-36.5FMercy Health St. Vincent Medical CenterComment on above:A hematocrit value greater than 55% may lead to inaccurate results in coagulation testing. Patientshaving hematocrit values >55% require a special collection tube for coagulation studies. Please contact the laboratory at [phone] for redraw instructions.pH Test strip (U)Ordered By: PROVIDER TEMP on 49-60-4127bB (U)pH of Urine by Test strip5.0-9.0[facility] HospitalOffice Visit on 66-90-7439Zhwbcc-up [id number] Tasneem Camarillo Rafi 1975 F Date Provider Department [place] 04/20/2024 VADIM KISER MP MPORTHO No family history on file Level of Service:34344 NE OFFICE/OUTPATIENT ESTABLISHED SF MDM 10 MIN Reason for Visit and Comments: Pain [136] Post-op [483]NormalWayne HealthCare [facility] Campus36on 13-94-781040Ygydudpqe to call patient and lvm to call back.[facility] 36on [phone] to call patient, phone kept ringing, no VMNormal [facility]36on [phone] calling non incisional pain and swelling and wanted to speak with Dr Nation nurse.[facility] CenterTelephoneon 40-02-8270Jraiwzmyi [id number] Tasneem Camarillo Rafi 1975 F Date Provider Department [place] 02/04/2024 MAYA FERMIN MP ORTHO MPORTHO No family history on fileNormalUniPremier HealthOffice Visiton 04-20-1233Miqmrg-up [id number] Tasneem Camarillo Rafi 1975 F Date Provider Department [place] 01/14/2024 VADIM KISER MP ORTHO MPORTHO No family history on file Level of Service:44643 NE POSTOP FOLLOW UP VISIT RELATED TO ORIGINAL PX Reason for Visit and Comments: Post-op [483] Pain [136]NormalWayne HealthCare Main CampusHPon 06-96-9004HGCvpxhpu Of Present Illness Tasneem Camarillo is a [...] tablet by mouth in the morning. 01/06/2024 fxodjxqoit-boakxfsgdquow-almi 50-325-40 mg tablet Take 1 tablet by [...] finger hardware removal, ring finger trigger digit release.Normal [facility] CampusNURSNOTEon 64-93-0164ULPHDSYCBp skie notified no ATB ordered.[facility] CenterOPNOTEon 01-07-2024 OPNOTEOperative Note Patient: Tasneem Camarillo Date of Surgery: 01/07/2024 : 1975 Pre-operative Diagnosis: 1. Retained hardware PIP joint right small finger, 2. Trigger digit right ring finger Post-operative Diagnosis: same Operation: 1. Removal of retained hardware right small finger, 2. Trigger digit release right ring finger (23160) Surgeon: Vadim Dorado MD Rural Route Carrier: Jerome Jesus MD Staff: Tetryl Wringer Operator: Roel Paez RN; Bryanna Esparza RN Scrub Person: Josephine Mckinley CST [place] Tetryl Wringer Operator: Roel Paez RN Anesthesia Type: Regional Indications: [...] saline solution. The extensor is closed with duqoqa-fm-lnbfd sutures of 4-0 Vicryl. The skin is [...] Complications: None Disposition: PACU Condition: Stable Vadim Dorado MDNormalUniversity Kettering Health – Soin Medical CenterPOCT GLUCOSE METER UNSOLICITED RESULTSon 83-46-2309Viowime [Mass/Vol]89 mg/kPFyehvp92-181YunefcteppFulton County Health CenterComment on above:Order Comment: Waived Testing in the ED is performed under the ED CLIA certificate #[id number].Result Comment: [email or web address] Performed By: #### [id number] ####[facility] (BEAKER)[address] [place], [place] [address]Bdwwyvdcjt macro (dipstick) panel (U)on 45-78-7127Eckmytdbw, UANegativeNegative - 4(70) +++ mg/dLNOMS HealthcareBlood, UANegativeNegative - 50 Igor/mcLNOMS HealthcareClarity, UAClearNOMS HealthcareColor, UAYellowNOMS HealthcareGlucose, UANegativeNegative - 2000(110) ++++ mg/dLNOMS Healthcare Interpretation and review of laboratory resultsNormalNOMS HealthcareKetones, UA NegativeNegative - 160(16) ++++ mg/dLNOMS HealthcareLeukocytes, UANegative Negative - 500+++ Lashonda/mcLNOMS HealthcareNitrite, UANegativeNegative - Positive NOMS HealthcarepH, UA5.55 - 9NOMS HealthcareProtein, UANegativeNegative - 2000(20) ++++ mg/dLNOMS HealthcareSpec Grav, UA1.021 - 1.03NOMS Healthcare Urobilinogen, UA0.20.2 - 12 mg/dLNOMS HealthcareNOMS HealthcareANES POSTPROC EVALon 31-12-3906LLXI POSTPROC EVALHNO ID: [id number] Author: AURE JARRELL MD Service: ? Author Type: Anesthesiologist Type: Anesthesia Postprocedure Evaluation Filed: 07/02/2023 09:52 Note Text: POST ANESTHESIA EVALUATION NOTE : 1975 Procedure Summary Date: 07/02/23 Room / Location: Gastroenterology Anesthesia Start: 849 Anesthesia Stop: Procedure: EGD DIAGNOSTIC Diagnosis: Epigastric [...] July 02, 2023 TIME: 9:51 AM CSN: [id number] Health [facility] PRE-OPon 59-05-4304TRPH PRE-OPHNO ID: [id number] Author: AURE JARRELL MD Service: ? Author [...] results: No results found for this basename: HCT,HEMATOCRIT,K,POTASSIUM Relevant Problems CARDIO (+) HTN (hypertension) ENDO [...] and consent discussed: yes. Patient / Responsible Libertarian agrees to proceed: yes Patient / Surrogate agrees to blood products: blood products not planned Potential Anesthesia issues that may suggest increased risk of complications or contraindication to planned procedure: none. Vitals Value Taken Time BP 115/54 07/02/23 0821 Pulse 47 07/02/23 0821 Resp 16 07/02/23820 Temp 36 ?C (96.8 [...] July 02, 2023 TIME: 8:48 AM CSN: [id number] Health Administration 07-02-2023 CNOVOffice Visit (THORMN) TASNEEM CAMARILLO ([id number]) 1975 F Date Time Provider Department 07/02/23 11:30 AM AIDEE VILLAVICENCIO During your visit today, we recorded the following information about you: Temperature Pulse Blood pressure Weight 97.8 degrees 53/minute 102/61 63.9 kg Height 1.575 m Aidee Villavicencio APRN.CALENDER MACHINE OPERATOR 07/02/2023 12:46 PM Signed [facility] - OUTPATIENT THORACIC SURGERY CLINIC NOTE PT NAME: Tasneem Camarillo [facility] NO: [id number] THORACIC SURGEON: Nicanor Ferris M.D. DATE OF [...] Local GI for symptom management Aidee Villavicencio APRN.CALENDER MACHINE OPERATOR Referring Provider: NICANOR FERRIS [[id number]] Allergies As of Date: 07/02/2023 Noted Allergy [...] contrast (will be provi (more content not included)...[facility] Study observation Narrativeon 67-55-6793Giptuqocm Clinic Radiology Study observation (narrative)[facility] SystemNUR[facility] PROGon 07-02-2023 NURSING PRONO ID: [id number] Author: ALISHA CANELA LPN Service: Nursing Author [...] (RECOMMENDATION): None Electronically Signed By: Alisha Canela LPSt. Elizabeth Hospital ID: [id number] Author: TATY SHERIDAN RN Service: Nursing Author [...] By: Taty Sheridan RN BSN In Department: GASTROENTEROLOGYOhioHealth Riverside Methodist [facility] ID: [id number] Author: TATY SHERIDAN RN Service: Nursing Author [...] US IV access, thanks! Casandra Sheridan RN [facility] HospitalRGICAL PATHOLOGYon 64-24-9574UMQW REPORTNoTriHealth [facility] on above:Order Comment: Specimen Type: TISSUE SPECIMENOrdering Facility: [facility] Address: [address] [place], [place] [address], [place] [address]Fhwgyq Comment: Surgical Pathology Report Case: [id number] Authorizing Provider: Nicanor Ferris MD Collected: 07/02/2023 08:58 AM Ordering Location: Gastroenterology Received: 07/02/2023 11:39 AM Pathologist: Ziyad Lama MD Specimens: A) - Stomach, Antrum, Biopsy, r/o H. Pylori B) - Esophagus, Biopsy, 32cm - r/o EOE C) - Esophagus, Biopsy, 25cm - r/o EOEPerformed By: #### S ####[facility] LABORATORYCLIA [id number] [address] LABCLIA [id number] [address] AMERICADIAGNOSIS COMMENTA. No microorganisms morphologically compatible with Helicobacter Pylori like organisms are identified by routine H AND E-stained sections.[facility] HospitalComc.[facility] on above:Order Comment: Specimen Type: TISSUE SPECIMENOrdering Facility: [facility] Address: [address] [place], [place] [address]Performed By: #### S ####[facility] LABORATORYCLIA [id number] [address] LABCLIA [id number] [address]ETFINFL DIAGNOSISNormKettering Memorial HospitalComc.[facility] on above:Order Comment: Specimen Type: TISSUE SPECIMENOrdering Facility: [facility] Address: [address] [place], [place] [address]Result Comment: A. Stomach, antrum, biopsy: - Reactive antra/pyloric type mucosa; see comment. B. Esophagus, biopsy at 32 cm: - Squamous and gastric mucosa with no pathologic diagnostic abnormality; negative for eosinophil esophagitis. C. Esophagus, biopsy at 25 cm: - Squamous and gastric mucosa with no pathologic diagnostic abnormality; negative for eosinophil esophagitis. Performed By: #### S ####[facility] LABORATORYCLIA [id number] [address] LABCLIA [id number] [address]ETFINFL PERFORMING [facility] on above:Order Comment: Specimen Type: TISSUE SPECIMENOrdering Facility: [facility] Address: [address] [place], [place] [address]Result Comment: Diagnostic interpretation performed at [facility], [address] [place] [address] CLIA# [id number] Workers Compensation Claims Assistant: Ziyad Lama M.D.Performed By: #### S ####[facility] LABORATORYCLIA [id number] [address] LABCLIA [id number] 15 [address]NINGHAM STREETGROSS DESCRIPTIONNoTriHealth Bethesda North Hospital on above:Order Comment: Specimen Type: TISSUE SPECIMENOrdering Facility: [facility] Address: [address] [place], [place] [address]Result Comment: A. Stomach, Antrum, Biopsy Received in formalin are two [...] in one cassette. Gross examination performed at [facility], [address] [place] [address] July 02, 2023 12:33 PMPerformed By: #### S ####[facility] LABORATORYCLIA [id number] [address] LABCLIA [id number] [address]CNOVon [id number] Visit (THORSD) TASNEEM CAMARILLO ([id number]) 1975 F Date Time Provider Department 06/25/23 2:15 PM NICANOR FERRIS During your visit today, we recorded the following information about you: Temperature Pulse Respiration Blood pressure 97.4 degrees 58/minute 14/minute 94/46 Weight Height 63.4 kg 1.575 m Rachana Pham MD 07/24/2023 2:31 PM Signed [facility] THORACIC SURGERY OUTPATIENT CONSULT NOTE Tasneem Camarillo [id number] Requesting Provider: Self Thoracic Physician: Nicanor Ferris [...] DATE OF EXAM: Jun 25 2023 12:26PM [facility] 0541 - CT CHEST WO IVCON / [...] pericardial effusion or thick (more content not included)...[facility] CHE[facility] WO IVCONon [id number] CHEST WO IVCON* * *Final Report* * * DATE OF EXAM: Jun 25 2023 12:26PM [facility] 0541 - CT CHEST WO IVCON / [...] Recommendation: Consult to Lung Nodule Clinic - [id number] Time Frame: at the discretion of the clinical team. Comments: Follow-up for this incidentally detected lung nodule with PET/CT or Biopsy within 4 weeks, or Chest CT exam in 3 months is recommended. --END OF FINDING-- Kick Press Setter: TARYN Transcribe Date/Time: Jun 25 2023 12:38P Dictated by : TALYA MCCORMACK MD This examination was interpreted and the report reviewed and electronically signed by: TALYA MCCORMACK MD on Jun 25 2023 12:44PM EST [id number] ACTIONABLEInvalid Interpretation CodeBellevue HospitalvelandMS Chest WO contraston [id number] ResultACTIONABLEAbnormalCleveland ClinicCNPNon [id number] (THORMN) TASNEEM CAMARILLO ([id number]) 1975 F Date Time Provider Department 05/20/23 NICANOR FERRIS During your visit today, we recorded the following information about you: Liz Cho 05/20/2023 12:08 PM Signed Received a call back from [facility] in [place] on records requested (operative reports from 2013= Yefri fundoplication). Edith from the [place] [facility] de[facility] was unable to fax the records because the pt last name didn't match. I called our patient and left a VM requesting a call back with that information to proceed with getting the records needed for the surgeon. [place] Psychiat[employer] Teacher Liz Cho 05/22/2023 8:55 AM Signed received outside 2013 operative note from [facility] ([facility]routing to NPM for review. Liz Hines Allergies [...] (None) Encounter Status:Closed by DANIKA MARX on 05/22/23NoUniversity Hospitals Portage Medical CenterFeliciano [id number] (THORMN) TASNEEM CAMARILLO ([id number]) 1975 F Date Time Provider Department 05/19/23 NICANOR FERRIS During your visit today, we recorded the following information about you: Liz Cho 05/19/2023 9:52 AM Signed LOCAL PATIENT Received Fax from Ildefonso Simmons/ ANGELIA [facility] Marquise is being referred to Nicanor Ferris M.D., Ph.D. by Malina Castaneda CNP Patient diagnosis/Reason for consult: Dysphagia Referral triage process explained: No Patient will receive a call from Thoracic NPM after triage review with surgeon to discuss any additional testing and/or consults that will be scheduled. Pt will then receive a call from our scheduling office for scheduling. Please call pt at [phone]. Patient was informed consultation could be at [place] or [facility] [place]: No Patient Registration: Registration complete/updated: no Insurance card(s) scanned in [facility] with in the past year: No Pt's One Hour Translationt is inactive. Ok to communicate to pt via [employer] not asked Medical Records: Records in [facility] (internal [facility] records): No Imaging in [facility] (internal [facility] records): No Care Everywhere - [...] Simmons. Imaging will be received via In [facility] already Received: yes Imaging uploaded: Yes Waiting on additional: No. Missing (list): N/A Additional providers added to Care Teams: Yes Additional Notes/Comments: Enct routed to: Yes, Thoracic Scheduling office for registration and Yes, Thoracic NPM for triage Elana Brooks RN 05/19/2023 2:23 PM Signed Thoracic Surgery Consultation - review of records for appointment scheduling Patient is being referred to Nicanor Ferris MD, PhD by for Epigastric Pain, Outside hospital records scanned Procedures: Yefri Fundoplication [place] op report 2013 [facility] ) - ask Install Technician to obtain Imaging CT (chest/abd requested) mri [...] consult with Dr. Ferris with testings per Elana'alli tele Reminder sent to patient via [employer] Allergies As of Date: 05/19/2023 (Not on File) Date Reviewed: Never Reviewed Reason for Visit: External Referrals/resources [909] Appointment Confirmation [3505] Primary Visit Diagnosis:Epigastric abdominal pain [R10.13] Order(s):CT CHEST WO IVCON [[id number]] Order #: [id number] FUTURE CT ABDOMEN WO IVCON [[id number]] Order #: [id number] FUTURE enteric contrast (will be provided with radiology test)For CT Chest Abdomen WO order Administer, As Directed One Time Only, via Oral, Rectal, both Oral and Rectal, Enteric Tube, Stoma or Indwelling Catheter, Enteric Contrast as designated per enteric contrast guidelinesDisp: 1 EachRfl: 0 EGD DIAGNOSTIC [GI9] Order #: [id number] FUTURE Prescriptions as of 05/20/2023 - enteric [...] enteric contrast guidelines Cosign required by NICANOR FERRIS[[id number]] Encounter Status:Closed by ELANA COFFMAN on 05/19/23NoUniversity Hospitals Portage Medical CenterAlanine aminotransferase [Enzymatic activity/volume] in Serum or Plasma Ordered By: Zaheer Sanon on 89-85-4279RER [Catalytic activity/Vol]19 U/L7-52 [facility] HospitalAlbumin [Mass/volume] in Serum or Plasma by Bromocresol green (BCG) dye binding methoOrdered By: Zaheer Sanon on 03-30-2023 Albumin BCG dye [Mass/Vol]4.6 g/dL3.5-5.7FMercy Health St. Vincent Medical Center Alkaline phosphatase [Enzymatic activity/volume] in Serum or PlasmaOrdered By: Zaheer Sanon on 04-20-0789HPK [Catalytic activity/Vol]70 U/R32-971NvigrpsfaMagruder Memorial HospitalAspartate aminotransferase [Enzymatic activity/volume] in Serum or PlasmaOrdered By: Zaheer Sanon on 10-25-7268PLG [Catalytic activity/Vol]29 U/O55-88YhqctrlwpMagruder Memorial HospitalBasophils Auto (Bld) [#/Vol]Ordered By: Zaheer Sanon on 31-07-9899Gcflgsurw (Bld) [#/Vol]0.1 10*3/uL 0.0-0.2FMercy Health St. Vincent Medical CenterBasophils/100 WBC Auto (Bld)Ordered By: Zaheer Sanon on 91-05-0836Nlngiscvn/100 WBC (Bld)1.3 %.[facility] HospitalBilirubin Test strip Ql (U)Ordered By: Zaheer Sanon on 03-30-2023 Bilirubin Ql (U)NegativeNegativeMagruder Memorial HospitalBilirubin.total [Mass/volume] in Serum or PlasmaOrdered By: Zaheer Sanon on 03-30-2023 Bilirubin [Mass/Vol]0.9 mg/dL0.3-1.0[facility] HospitalCalcium [Mass/volume] in Serum or PlasmaOrdered By: Zaheer Sanon on 70-57-1944Twqzmpv [Mass/Vol]9.1 mg/dL8.6-10.3FMercy Health St. Vincent Medical CenterCarbon dioxide, total [Moles/volume] in Serum or PlasmaOrdered By: Zaheer Sanon on 03-30-2023 CO2 [Moles/Vol]29.8 mmol/L21.0-31.0[facility] HospitalChloride [Moles/volume] in Serum or PlasmaOrdered By: Zaheer Sanon on 49-65-6480Nizdylvh [Moles/Vol]101 mmol/U18-531HzkcmddvaMagruder Memorial HospitalColor Auto (U) Ordered By: Zaheer Sanon on 66-05-2599Eirby (U)YellowYellowMagruder Memorial HospitalCreatinine [Mass/volume] in Serum or PlasmaOrdered By: Zaheer Sanon on 20-89-2140Fcwuibdtlv [Mass/Vol]1.76 mg/dL0.60-1.20[facility] HospitalEosinophils Auto (Bld) [#/Vol]Ordered By: Zaheer Sanon on 72-26-9362Jjmnlpnqeyr (Bld) [#/Vol]0.2 10*3/uL0.0-0.45[facility] HospitalEosinophils/100 WBC Auto (Bld)Ordered By: Zaheer Sanon on 03-30-2023 Eosinophils/100 WBC (Bld)3.7 %.[facility] HospitalErythrocyte distribution width Auto (RBC) [Ratio]Ordered By: Zaheer Sanon on 03-30-2023 Erythrocyte distribution width (RBC) [Ratio]14.6 %11.9-15.3FMercy Health St. Vincent Medical CenterGlobulin Calc (S) [Mass/Vol]Ordered By: Zaheer Sanon on 40-36-6898Zcrrpnuu (S) [Mass/Vol]3.0 g/dLMagruder Memorial Hospital Glucose [Mass/volume] in Serum or PlasmaOrdered By: Zaheer Sanon on 03-30-2023 Glucose [Mass/Vol]67 mg/aI73-389GnrpwoyrvMagruder Memorial HospitalComment on above:ADA recommended reference rangeRandom Glucose Reference Range is dependent on time and content of last meal. Glucose of more than 200 mg/dL in a nonstressed, ambulatory subject supports the diagnosisof Diabetes Mellitus. Hematocrit Auto (Bld) [Volume fraction]Ordered By: Zaheer Sanon on 03-30-2023 Hematocrit (Bld) [Volume fraction]38.6 %34.0-46.4FMercy Health St. Vincent Medical CenterHemoglobin [Mass/volume] in BloodOrdered By: Zaheer Sanon on 03-30-2023 Hemoglobin (Bld) [Mass/Vol]12.9 g/dL11.8-15.4FMercy Health St. Vincent Medical Center Ketones Auto test strip (U) [Mass/Vol]Ordered By: Zaheer Sanon on 03-30-2023 Ketones (U) [Mass/Vol]NegativeNegativeMagruder Memorial Hospital Leukocytes [#/volume] corrected for nucleated erythrocytes in Blood by Automated counOrdered By: Zaheer Sanon on 67-78-9588BWX corrected for nucl RBC Auto (Bld) [#/Vol]6.4 10*3/uL3.8-11.6FMercy Health St. Vincent Medical CenterLipase [Enzymatic activity/volume] in Serum or PlasmaOrdered By: Zaheer Sanon on 38-33-9130Tleddw [Catalytic activity/Vol]88.0 U/L11.0-82.0[facility] HospitalLymphocytes Auto (Bld) [#/Vol]Ordered By: Zaheer Sanon on 04-76-4025Hljairsvaju (Bld) [#/Vol]3.1 10*3/uL1.00-4.8[facility] HospitalLymphocytes/100 WBC Auto (Bld)Ordered By: Zaheer Sanon on 03-30-2023 Lymphocytes/100 WBC (Bld)47.8 %.[facility] CenterH Auto (RBC) [Entitic mass]Ordered By: Zaheer Sanon on 90-57-9267QYF (RBC) [Entitic mass] 30.3 pg24.7-34.3FMercy Health St. Vincent Medical CenterMCHC Auto (RBC) [Mass/Vol] Ordered By: Zaheer Sanon on 48-32-6148LBBY (RBC) [Mass/Vol]33.3 g/dL32.0-35.0 [facility] HospitalMCV Auto (RBC) [Entitic vol]Ordered By: Zaheer Sanon on 55-54-4772FHT (RBC) [Entitic vol]91.0 hZ79-133IfatwxankMagruder Memorial HospitalMonocyte distribution width [Entitic volume] in Blood by Automated Ordered By: Zaheer Sanon on 65-04-2980Hvasxoog distribution width Auto (Bld) [Entitic vol]16.77 %0.00-20.00[facility] HospitalMonocytes Auto (Bld) [#/Vol]Ordered By: Zaheer Sanon on 79-25-1655Zxhvalrta (Bld) [#/Vol]0.7 10*3/uL0.0-0.8[facility] HospitalMonocytes/100 WBC Auto (Bld) Ordered By: Zaheer Sanon on 50-56-4906Xcbpxynqo/100 WBC (Bld)10.1 %.[facility] HospitalNeutrophils Auto (Bld) [#/Vol]Ordered By: Zaheer Sanon on 62-59-9891Estxyrtghkb (Bld) [#/Vol]2.4 10*3/uL1.8-7.7FMercy Health St. Vincent Medical CenterNeutrophils/100 WBC Auto (Bld)Ordered By: Zaheer Sanon on 61-00-6534Slloxbbaqrs/100 WBC (Bld)37.1 %.[facility] Nitrite Test strip Ql (U)Ordered By: Zaheer Sanon on 36-53-6944Svmrybl Ql (U) NegativeNegativeMagruder Memorial HospitalNo Panel InformationOrdered By: Zaheer Sanon on 33-99-8728Agcfsblss GFR (CKD-EPI)35.044 mL/MinMagruder Memorial HospitalPharmacy Creatinine Clearance (Chem34.34[facility] Memorial HospitalNucleated erythrocytes [Presence] in Blood by Automated countOrdered By: Zaheer Sanon on 27-43-0695Asufvozui RBC Auto Ql (Bld)0.1 /100{WBC}0-0.5FMercy Health St. Vincent Medical CenterPlatelet mean volume Auto (Bld) [Entitic vol]Ordered By: Zaheer Sanon on 71-44-1117Evphjyca mean volume (Bld) [Entitic vol]8.8 fL6.3-10.7FMercy Health St. Vincent Medical CenterPlatelets Auto (Bld) [#/Vol]Ordered By: Zaheer Sanon on 01-30-7299Pntftppsd (Bld) [#/Vol]338 10*3/uL 150-450Mag[facility] HospitalPotassium [Moles/volume] in Serum or PlasmaOrdered By: Zaheer Sanon on 42-29-7013Dekpxwhid [Moles/Vol]3.2 mmol/L 3.5-5.1FMercy Health St. Vincent Medical CenterProtein Auto test strip (U) [Mass/Vol] Ordered By: Zaheer Sanon on 77-15-8574Xxudabz (U) [Mass/Vol]NegativeNegative [facility] HospitalProtein [Mass/volume] in Serum or PlasmaOrdered By: Zaheer Sanon on 68-53-9136Siadmei [Mass/Vol]7.6 g/dL6.4-8.9[facility] HospitalRBC Auto (Bld) [#/Vol]Ordered By: Zaheer Sanon on 94-61-5364DPN (Bld) [#/Vol]4.24 10*6/uL3.60-5.00Trinity Health Systemerum or plasma albumin/globulin mass ratioOrdered By: Zaheer Sanon on 72-31-3212Ghsfact/Globulin [Mass ratio]1.5 {ratio}Trinity Health Systemerum or plasma anion gap determinationOrdered By: Zaheer Sanon on 79-01-6193Ugkjx gap [Moles/Vol]11.4 mmol/L6.0-15.0Trinity Health Systemodium [Moles/volume] in Serum or PlasmaOrdered By: Zaheer Sanon on 39-61-3129Zugyxl [Moles/Vol]139 mmol/T361-433AuokppzgbMagruder Memorial Hospital Specific gravity Auto test strip (U) [Rel density]Ordered By: Zaheer Sanon on 45-10-7050Cpbwaxcd gravity (U) [Rel density]1.0061.001-1.030[facility] HospitalUrea nitrogen [Mass/volume] in Serum or PlasmaOrdered By: Zaheer Sanon on 99-05-3613Osoq nitrogen [Mass/Vol]21 mg/dL7-25[facility] HospitalUrine clarity by refractometry automatedOrdered By: Zaheer Sanon on 09-65-3576Pmylxpy Refractometry automated (U)ClearClearFMercy Health St. Vincent Medical CenterUrine glucose measurement by automated test strip (mass/volume) Ordered By: Zaheer Sanon on 16-35-2480Qvwspts Auto test strip (U) [Mass/Vol] Normal mg/dLNoPaulding County HospitalUrine hemoglobin detection by automated test stripOrdered By: Zaheer Sanon on 81-05-4190Twbzhrbznw Auto test strip Ql (U)NegativeNegOhioHealth Doctors HospitalUrine leukocyte esterase detection by automated test stripOrdered By: Zaheer Sanon on 61-15-2517Oedpvjsjg esterase Auto test strip Ql (U)NegativeNegOhioHealth Doctors HospitalUrobilinogen Auto test strip (U) [Mass/Vol]Ordered By: Zaheer Sanon on 90-50-2069Bkavvhilraey (U) [Mass/Vol]Normal mg/dLSelect Medical Specialty Hospital - YoungstownWBC Auto (Bld) [#/Vol]Ordered By: Zaheer Sanon on 71-40-0312QLN (Bld) [#/Vol]6.4 10*3/uL3.8-11.6FMercy Health St. Vincent Medical CenterpH Auto test strip (U)Ordered By: Zaheer Sanon on 62-58-9269aJ (U)5.5 [pH]5.0-9.0[facility] HospitalActivated partial thromboplastin time (aPTT) in platelet poor plasma by coagulation aOrdered By: Tad Barger on 97-37-5184tEPL Coag (PPP) [Time]29.2 s25.1-36.5FMercy Health St. Vincent Medical Center Comment on above:A hematocrit value greater than 55% may lead to inaccurate results in coagulation testing. Patientshaving hematocrit values >55% require a special collection tube for coagulation studies. Please contact the laboratory at [phone] for redraw instructions.Alanine aminotransferase [Enzymatic activity/volume] in Serum or PlasmaOrdered By: Tad Barger on 16-02-8528FIP [Catalytic activity/Vol]17 U/L7-52[facility] HospitalAlbumin [Mass/volume] in Serum or Plasma by Bromocresol green (BCG) dye binding metho Ordered By: Tad Barger on 59-75-4956Oznfsow BCG dye [Mass/Vol]4.0 g/dL3.5-5.7 [facility] HospitalAlkaline phosphatase [Enzymatic activity/volume] in Serum or PlasmaOrdered By: Tad Barger on 51-53-7978GEV [Catalytic activity/Vol]61 U/E58-660SvkmlbmqyMagruder Memorial HospitalAspartate aminotransferase [Enzymatic activity/volume] in Serum or PlasmaOrdered By: Tad Barger on 79-64-9450DVF [Catalytic activity/Vol]28 U/Z65-46OibpqjrnyMagruder Memorial HospitalBasophils Auto (Bld) [#/Vol]Ordered By: Tad Barger on 03-24-2023 Basophils (Bld) [#/Vol]0.1 10*3/uL0.0-0.2FMercy Health St. Vincent Medical Center Basophils/100 WBC Auto (Bld)Ordered By: Tad Barger on 46-35-1468Jppjeyiqa/100 WBC (Bld)0.9 %.[facility] HospitalBilirubin Auto test strip Ql (U) Ordered By: Tad Barger on 82-37-1983Mddfqvyti Ql (U)NegativeNegativeMagruder Memorial HospitalBilirubin.direct [Mass/volume] in Serum or PlasmaOrdered By: Tad Barger on 66-03-6119Tdjuyezhi.direct [Mass/Vol]0.10 mg/dL0.03-0.18 [facility] HospitalBilirubin.total [Mass/volume] in Serum or PlasmaOrdered By: Tad Barger on 64-68-2486Zhqbbibda [Mass/Vol]0.8 mg/dL0.3-1.0 [facility] HospitalCalcium [Mass/volume] in Serum or PlasmaOrdered By: Tad Barger on 00-96-4658Mspkksr [Mass/Vol]9.3 mg/dL8.6-10.3FMercy Health St. Vincent Medical CenterCarbon dioxide, total [Moles/volume] in Serum or Plasma Ordered By: Tad Barger on 42-78-4598LO5 [Moles/Vol]27.1 mmol/L21.0-31.0 [facility] HospitalChloride [Moles/volume] in Serum or Plasma Ordered By: Tad Barger on 32-99-0597Sltlqewv [Moles/Vol]109 mmol/L98-107 [facility] HospitalCreatine kinase [Enzymatic activity/volume] in Serum or PlasmaOrdered By: Tad Barger 47-69-4841WR [Catalytic activity/Vol] 279 U/F07-487UivapnwrmMagruder Memorial HospitalCreatinine [Mass/volume] in Serum or PlasmaOrdered By: Tad Barger 02-05-5662Rmngzrnhda [Mass/Vol]1.23 mg/dL 0.60-1.20[facility] HospitalEosinophils Auto (Bld) [#/Vol]Ordered By: Tad Barger on 91-15-6229Iddkszvvfen (Bld) [#/Vol]0.2 10*3/uL0.0-0.45 [facility] HospitalEosinophils/100 WBC Auto (Bld)Ordered By: Tad Barger on 04-78-9837Ryvmualzyxj/100 WBC (Bld)3.1 %.[facility] HospitalErythrocyte distribution width Auto (RBC) [Ratio]Ordered By: Tad Barger on 52-53-8316Wxyybjjwdss distribution width (RBC) [Ratio]14.1 %11.9-15.3 [facility] HospitalGlobulin Calc (S) [Mass/Vol]Ordered By: Tad Barger on 82-50-5608Xebsdqwp (S) [Mass/Vol]2.9 g/dLMagruder Memorial HospitalGlucose [Mass/volume] in Serum or PlasmaOrdered By: Tad Barger on 17-57-7551Wdytkvo [Mass/Vol]51 mg/eA62-393CxakuwpknMagruder Memorial Hospital Comment on above:ADA recommended reference rangeRandom Glucose Reference Range is dependent on time and content of last meal. Glucose of more than 200 mg/dL in a nonstressed, ambulatory subject supports the diagnosisof Diabetes Mellitus. Hematocrit Auto (Bld) [Volume fraction]Ordered By: Tad Barger on 03-24-2023 Hematocrit (Bld) [Volume fraction]36.1 %34.0-46.4FMercy Health St. Vincent Medical CenterHemoglobin [Mass/volume] in BloodOrdered By: Tad Barger on 03-24-2023 Hemoglobin (Bld) [Mass/Vol]12.1 g/dL11.8-15.4FMercy Health St. [facility] Center INR in Platelet poor plasma by Coagulation assayOrdered By: Tad Barger on 05-38-7515SMS Coag (PPP) [Relative time]0.9 {INR}[facility] HospitalComment on above:INR Therapeutic Range A) Pre- and Peroperative OAT started two weeks before surgery. NOT HIP SURGERY: 1.5 - 2.5 HIP SURGERY: 2 - 3B) Primary and secondary prevention of venous THROMBOSIS: 2 - 3C) Active venous thrombosis, pulmonary embolismand prevention of recurrent venous thrombosis: 2 - 3D) Prevention of arterial thromboembolismincluding patients with mechanical heart valves: 3 - 4.5Ketones Auto test strip (U) [Mass/Vol]Ordered By: Tad Barger on 69-22-6801Rgzxxxu (U) [Mass/Vol]NegativeNegativeMagruder Memorial HospitalLeukocytes [#/volume] corrected for nucleated erythrocytes in Blood by Automated counOrdered By: Tad Barger on 74-82-2562ZTW corrected for nucl RBC Auto (Bld) [#/Vol]6.6 10*3/uL3.8-11.6FMercy Health St. [facility] Center Lipase [Enzymatic activity/volume] in Serum or PlasmaOrdered By: Tad Barger on 77-19-8382Enless [Catalytic activity/Vol]91.0 U/L11.0-82.0[facility] HospitalLymphocytes Auto (Bld) [#/Vol]Ordered By: Tad Barger on 49-59-4762Xoljfmuxqss (Bld) [#/Vol]3.2 10*3/uL1.00-4.8[facility] HospitalLymphocytes/100 WBC Auto (Bld)Ordered By: Tad Barger on 03-24-2023 Lymphocytes/100 WBC (Bld)48.5 %.[facility] HospitalMCH Auto (RBC) [Entitic mass]Ordered By: Tad Barger on 12-61-1274IIX (RBC) [Entitic mass]30.6 pg24.7-34.3FMercy Health St. Vincent Medical CenterMCHC Auto (RBC) [Mass/Vol]Ordered By: Tad Barger on 13-11-3981VQEG (RBC) [Mass/Vol]33.7 g/dL32.0-35.0[facility] HospitalMCV Auto (RBC) [Entitic vol]Ordered By: Tad Barger on 05-10-1290GSH (RBC) [Entitic vol]90.9 rY74-096XetwcsefzMagruder Memorial Hospital Monocyte distribution width [Entitic volume] in Blood by AutomatedOrdered By: Tad Barger on 16-87-0213Wdjiuljf distribution width Auto (Bld) [Entitic vol] 16.57 %0.00-20.00[facility] HospitalMonocytes Auto (Bld) [#/Vol] Ordered By: Tad Barger on 64-42-0231Wyfvwxpdg (Bld) [#/Vol]0.7 10*3/uL0.0-0.8 [facility] HospitalMonocytes/100 WBC Auto (Bld)Ordered By: Tad Barger on 98-80-3566Jxoiwjvlu/100 WBC (Bld)10.9 %.[facility] HospitalNatriuretic peptide B [Mass/Vol]Ordered By: Tad Barger on 03-24-2023 Natriuretic peptide B (Bld) [Mass/Vol]244.0 pg/mL5-100[facility] HospitalNeutrophils Auto (Bld) [#/Vol]Ordered By: Tad Barger on 03-24-2023 Neutrophils (Bld) [#/Vol]2.4 10*3/uL1.8-7.7FMercy Health St. Vincent Medical Center Neutrophils/100 WBC Auto (Bld)Ordered By: Tad Barger on 03-24-2023 Neutrophils/100 WBC (Bld)36.6 %.[facility] HospitalNo Panel InformationOrdered By: Tad Barger on 28-19-0739Iaypskeln GFR (CKD-EPI)53.870 mL/MinMagruder Memorial HospitalPharmacy Creatinine Clearance (Chem49.35 [facility] HospitalNucleated erythrocytes [Presence] in Blood by Automated countOrdered By: Tad Barger on 24-32-2273Zkbljmwcx RBC Auto Ql (Bld) 0.0 /100{WBC}0-0.5FMercy Health St. Vincent Medical CenterPlatelet mean volume Auto (Bld) [Entitic vol]Ordered By: Tad Barger on 10-44-2944Qfoqubzz mean volume (Bld) [Entitic vol]8.5 fL6.3-10.7FMercy Health St. Vincent Medical CenterPlatelets Auto (Bld) [#/Vol]Ordered By: Tad Barger on 29-14-1868Cdxydhhum (Bld) [#/Vol]272 10*3/pM585-881TjxedcrwxMagruder Memorial HospitalPotassium [Moles/volume] in Serum or PlasmaOrdered By: Tad Barger on 66-97-1615Musejhaqr [Moles/Vol]3.8 mmol/L 3.5-5.1FMercy Health St. Vincent Medical CenterProtein Auto test strip (U) [Mass/Vol] Ordered By: Tad Barger on 38-12-9701Mnoqzoj (U) [Mass/Vol]NegativeNegative [facility] HospitalProtein [Mass/volume] in Serum or PlasmaOrdered By: Tad Barger on 20-28-7045Orgjbqw [Mass/Vol]6.9 g/dL6.4-8.9[facility] HospitalProthrombin time (PT)Ordered By: Tad Barger on 90-69-2512GP Coag (PPP) [Time]10.0 s9.0-12.9[facility] Comment on above:A hematocrit value greater than 55% may lead to inaccurate results in coagulation testing. Patientshaving hematocrit values >55% require a special collection tube for coagulation studies. Please contact the laboratory at [phone] for redraw instructions.RBC Auto (Bld) [#/Vol]Ordered By: Tad Barger on 55-49-0861XMD (Bld) [#/Vol]3.97 10*6/uL3.60-5.00Tr[facility] Health Systemerum or plasma albumin/globulin mass ratioOrdered By: Tad Barger on 16-34-7643Chqnksd/Globulin [Mass ratio]1.4 {ratio}[facility] Systemerum or plasma anion gap determinationOrdered By: Tad Barger on 73-06-9678Wdztx gap [Moles/Vol]8.7 mmol/L6.0-15.0[facility] Health Systemerum or plasma non-glucuronidated bilirubin measurement (mass/volume) Ordered By: Tad Barger on 21-17-7813Etncaodaf.indirect [Mass/Vol]0.7 mg/dL [facility] Health Systemodium [Moles/volume] in Serum or PlasmaOrdered By: Tad Barger 71-27-8118Sndfbj [Moles/Vol]141 mmol/Z585-520UbmlyxiheMagruder Memorial HospitalTroponin I.cardiac [Mass/volume] in Serum or Plasma by Detection limit <= 0.01 ng/Ordered By: Tad Barger 63-03-1405Bmiuqrch I.cardiac DL <= 0.01 ng/mL [Mass/Vol]4.9 pg/mL0.0-15.0[facility] HospitalUrea nitrogen [Mass/volume] in Serum or PlasmaOrdered By: Tad Barger 25-46-9302Jzpu nitrogen [Mass/Vol]23 mg/dL7-25[facility] Urine appearanceOrdered By: Tad Barger 60-44-4746Umxglwkghb (U)ClearClear [facility] HospitalUrine colorOrdered By: Tad Barger on 72-72-3679Rvmvn (U)YellowYellowMagruder Memorial HospitalUrine glucose measurement by automated test strip (mass/volume)Ordered By: Tad Barger on 63-47-9330Qbjvynr Auto test strip (U) [Mass/Vol]Normal mg/dLNoPaulding County HospitalUrine hemoglobin detection by automated test stripOrdered By: Tad Barger on 56-24-3351Blboajudhv Auto test strip Ql (U)NegativeNegative [facility] HospitalUrine leukocyte esterase detection by automated test stripOrdered By: Tad Barger on 17-24-9873Jgvteggdp esterase Auto test strip Ql (U)NegativeNegOhioHealth Doctors HospitalUrine nitrite detection by automated test stripOrdered By: Tad Barger on 66-18-3799Obglayu Auto test strip Ql (U)NegativeNegOhioHealth Doctors Hospital Urobilinogen Auto test strip (U) [Mass/Vol]Ordered By: Tad Barger on 03-24-2023 Urobilinogen (U) [Mass/Vol]Normal mg/dLUniversity Hospitals TriPoint Medical Center WBC Auto (Bld) [#/Vol]Ordered By: Tad Barger on 68-27-3072PNG (Bld) [#/Vol]6.6 10*3/uL3.8-11.6FMercy Health St. Vincent Medical CenterpH Auto test strip (U)Ordered By: Tad Barger on 58-13-4637oD (U)1.020 [pH]1.001-1.030[facility] HospitalpH (U)5.5 [pH]5.0-9.0[facility] HospitalOT Initial Evalutationon [id number] Initial EvalutationNo report was sentNormalU TouchworksTherapy Communicationon 02-00-3944Zzpfebh CommunicationMessagwyn CAMARILLO no showed today 10/23/2022. Signatures Electronically signed by : Dc Wu CHT OTR/L; Oct 23 2022 11:15AM EST (Author)NormalUH TouchworksEstablished Visit (Orthopaedic Surgery)on 53-22-5265Vtonctyligx Visit (Orthopaedic Surgery)Provider Impressions ASSESSMENT: Right small finger proximal interphalangeal [...] end, we may consider revision surgery for PIPflexion contracture release. This time, we will not [...] PIP flexion contracture. She had surgery in [place]. The operative note indicates that the volar plate was released andfull extension was achieved. The digit was pinned [...] Acosta, ; Oct 21 2022 9:07AM EST (Kick Press Setter/Recorder) Electronically signed by : Humphrey Pfeiffer DO; Oct 28 2022 10:32AM Yang Where's UpHAND MIN 3 VIEWSon [id number] MIN 3 VIEWSMRN: [id number] Patient Name: TASNEEM CAMARILLO STUDY: HAND MIN 3 VIEWS INDICATION: pain, old injury G89.18: Post-op pain. COMPARISON: None ACCESSION NUMBER(S): [id number] ORDERING CLINICIAN: MELI BRAVO FINDINGS: Flexion deformity with some arthrosis at the right 5th proximal interphalangeal joint likely related to remote fracture. No acute findings right hand. 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 No acute findings right hand. 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 PLAN: Treatment options were discussed. We talked about operative and nonoperative strategies. We explained the challenges with the proximal interphalangeal joint in general, and specifically as it relatesto PIP flexion contracture. We are seeking a copy of the operative note, which she will provide, tounderstand exactly what was done. I think potentially, [...] to get going with therapy through her [facility] organization. I will see her back in three weeks to review the operative note and decide where we go from there. Chief Complaint [facility] Lt ring finger xrays at History [...] she had a PIP flexion contracture. She [place]seen [place] surgeon in [place] and ultimately underwent a surgical release. She is convinced thatjust a tendon was released and not the joint itself. She states that a pin was placed. She believesshe started therapy about a month after the [...] intake form [facility]. The patient [...] a substantial flexion contracture to the right smallfinger at the PIP joint which is not passively correctable. The patient shows a palm to pulp distance of zero with a near full composite fist. Signatures Electronically signed by : Josephine Acosta, ; Sep 24 2022 3:05PM EST (Kick Press Setter/Recorder) Electronically signed by : Humphrey Pfeiffer, DO; Sep 24 2022 5:46PM SORAYANormMariano TouchworksRadiologyon [id number] Hand 3 [facility] Work Phone: Established Visit (Pain Medicine)on 07-08-2022 Established Visit (Pain Medicine)Diagnoses/Problems Complex regional pain syndrome type 1 of [...] proceed but is needing to choose the [employer] device over the DRG device as [...] her with the temporary relief.Patient does not re port any new fever, chills, or loss of [...] Recorded: 08Jul2022 02:44PM Height5 ft 2 in Heeimo682 lb BMI Edibefqbzt53.78 kg/m2 BSA Calculated1.59 Tobacco Useb) No Falls [...] muscles/joints/bones show no gross atrophy and no abnormal/involuntarymovements in the head/neck. Normal range of motion. Neurol (more content not included)...NormalUH TouchworksCT ABD/PELVIS WO CONon [id number] ABD/PELVIS WO CONEXAM: CT SCAN OF THE ABDOMEN AND PELVIS WITHOUT IV CONTRAST DATE [...] pelvis for acute pathology. Electronically authenticated by: VALAIRE GOSS Date: 2022-06-13 00:[address] [place], [place] [address]CT CHEST WO CONon [id number] CHEST WO CONEXAMINATION: CT CHEST WO CON 06/12/2022 HISTORY: NAUSEA WITH VOMITING, [...] fracture deformity noted. Electronically authenticated by: RULA ANGELH Date: 2022-06-13 00:45[facility] URINE PROFILEon [id number] Ql (U)MODERATEAbnormal NEGATIVEProtestant Deaconess HospitalComment on above:Performed By: #### ERUSelwyn UMICRO ####[facility] M[address]ffriotdg[address] [place], [place]Dr. Yilan ChangClarity (U)CLEARNormalCLEARProtestant Deaconess HospitalComment on above: Performed By: #### ERUR UMICRO ####[facility] Pfbbhkhhzf[address] [place], [place]Dr. Yilan ChangColor (U)YELLOWNormalYELLOWProtestant Deaconess HospitalComment on above:Performed By: #### ERUR UMICRO ####[facility] Syeuvzzfku264[address] [place], [place]Dr. Yadiel PaulinoDA micrscopic examination will be performed if indicated.NormalProtestant Deaconess HospitalComment on above:Performed By: #### ERUR, UMICRO ####[facility] Nwuldwwgsh[address]197 [place], [place]Dr. Yilan ChangGlucose Ql (U) NegativeNormalNEGATIVEProtestant Deaconess HospitalComment on above:Performed By: #### ERUR, UMICRO ####[facility] Dstteerbua9[address] [place], [place] [address]Zu. Yilan ChangHemoglobin Ql (U)SMALLAbnormalNEGATIVEProtestant Deaconess Hospital Comment on above:Performed By: #### FRENCH UMICRO ####[facility] Puqlysbfor8083 [place], [place]Dr. Yadiel DaveKetones Ql (U) NegativeNormalNEGATIVEThe Farmingdale HospitalComment on above:Performed By: #### FRENCH UMICRO ####[facility] Znqsjkuhnv3638 [place], [place] [address]Je. Yadiel AcostaLEUKOCYTESNegativeNormalNEGATIVEThe Farmingdale HospitalComment on above:Performed By: #### FRENCH UMICRO ####[facility] Udwyytbktj3675 [place], [place]Dr. Yadiel AcostaNitrite Ql (U)NegativeNormal NEGATIVEThe [facility]amisburgComment on above:Performed By: #### FRENCH UMICRO ####[facility] [address]xcziu[address] [place] [id number]. Yadiel AcostapH (U)5.5 [pH]Normal5-9The [facility]amisburgComment on above: Performed By: #### FRENCH UMICRO ####[facility] Hqftezmjbi4126 [place], [place]Dr. Yadiel AcostaSPEC GRAVITY>=1.606Gyryekrc1.005-<=1.025 The [facility] MiamisburgComment on above:Performed By: #### FRENCH UMICRO ####[facility] Vffuhrybip4620 [place], [place]Dr. Yadiel AcostaUA PROTEINNegativeNormalNEGATIVE/ TRACEThe Farmingdale HospitalComment on above:Performed By: #### FRENCH UMICRO ####[facility] Rchuroxcnk6869 [place], [place]Dr. Ydaiel AcostaUR MICRO INDINDICATEDNormalThe [facility]amisburgComment on above:Performed By: #### FRENCH UMICRO ####[facility] Vxixumeepf0947 [place], [place]Dr. Yadiel Acosta Urobilinogen Qn (U)0.2 {Stan'U}/dLNormal0.2 - 1.0[facility] on above:Performed By: #### ERURROCIORO ####[facility] [address] [place], [place] [address]Dr. Yadiel ChangINFLUENZA A AND B AGon [id number] [facility] HospitalComment on above:Result Comment: Negative for Flu A protein angiten. Infection due to Flu A cannot be ruled out. FluA angiten in the sample may be below the detection limit of the test.Performed By: #### INFLUAB ####[facility] Vcawepvhfi[address] [place], [place] [address]Dr. Yadiel AcostaINFLUBNEGHSEE [facility] on above:Result Comment: Negative for Flu B protein antigen. Infection due to Flu B cannot be ruled out. FluB antigen in the sample may be below the detection limit of the test.Performed By: #### INFLUAB ####[facility] Imqsbubzmg[address] [place], [place] [address]Dr. Rsoettecharlee Acosta INFLUENZA A AGNegativeNormalNEGATIVE SEE COMMENTThe [facility] on above:Performed By: #### INFLUAB ####[facility] Ezdpxjcxxo[address] [place], [place] [address]Dr. Yadiel ChangINFLUENZA B AGNegativeNormalNEGATIVE SEE COMMENTBellevue Hospital on above:Performed By: #### INFLUAB ####[facility] Ipguljrvpr[address] [place], [place] [address]Dr. Yadiel DaveLIPASEon 70-47-7463Xwzbjk [Catalytic activity/Vol]160.0 U/LNormal 73.0-393.0The [facility] on above:Performed By: #### CMP, LIPA ####[facility] Ygfloszsjy[address] [place], [place] [address]Dr. Rosettecharlee DavePROF 14(COMP METB)on 81-11-1615Aovrtcp [Mass/Vol]4.4 g/dLNormal 3.4-5.0The [facility] on above:Performed By: #### CMP, LIPA ####[facility] [address]mnebxcsv[address] [place] [address]Dr. Yilan ChangAlbumin/Globulin [Mass ratio]1.2 {ratio}NormalThe [facility] Comment on above:Performed By: #### CMP, LIPA ####[facility] Sjbxs[address]wjx[address] [place] [address]Dr. Yilan ChangALP [Catalytic activity/Vol]109 U/LApezod82-496Kax [facility]amisburgComment on above:Performed By: #### CMP, LIPA ####[facility] Vlctxowaxs34[address] [place] [address]Dr. Yilan ChangALT [Catalytic activity/Vol]27 U/L Xbarod26-89Ivt [facility]amisburgComment on above:Performed By: #### CMP, LIPA ####[facility] Sygmrqbojw[address] [place], [place] [address]Dr. Yilan ChangAnion gap [Moles/Vol]20.7 mmol/LNormalThe [facility]burgComment on above:Performed By: #### CMP, LIPA ####[facility] Nwzzhtjnag[address] [place], [place] [address]Dr. Yilan ChangAST [Catalytic activity/Vol]35 U/L Iesvxy08-98Fub [facility]burgComment on above:Performed By: #### CMP, LIPA ####[facility] Wkfuxmbnsx[address] [place], [place] [address]Dr. Yilan ChangBilirubin [Mass/Vol]1.2 mg/dLCritically high0.2-1.0The [facility]burgComment on above:Performed By: #### CMP, LIPA ####[facility] Efytdfccdt[address] [place], [place] [address]Dr. Yilan ChangCalcium [Mass/Vol]9.3 mg/dLNormal8.5-10.1The [facility]burgComment on above:Performed By: #### CMP, LIPA ####[facility] Otrbavlski[address] [place], [place] [address]Dr. Yilan ChangChloride [Moles/Vol]98 mmol/LNormal 98-107The [facility] HospitalComment on above:Performed By: #### CMP, LIPA ####[facility] Wdhudpzawh[address] [place], [place] [address]Dr. Yilan ChangCO2 [Moles/Vol]21.6 mmol/WVqkatu46.0-32.0The [facility]amisburgComment on above:Performed By: #### CMP, LIPA ####[facility] Oxqamdnigr[address] [place], [place] [address]Dr. Yilan ChangCreatinine [Mass/Vol]1.07 mg/dL Critically high0.55-1.02The [facility]amisburgComment on above:Performed By: #### CMP, LIPA ####[facility] Enmjreyrhw[address] [place], [place] [address]Dr. Yilan ChangEGFR-AF BRITISH VIRGIN ISLANDER>60Normal>=60The [facility] MiamisburgComment on above:Performed By: #### CMP, LIPA ####[facility] Sakisaynpy[address] [place], [place] [address]Dr. Yilan ChangEGFR-NON AF BMVXFSRG00 mL/min/1.98c0Ziwaujizum low>=60The [facility]amisburgComment on above:Performed By: #### CMP, LIPA ####[facility] Kzznrxqqdj[address] [place], [place] [address]Dr. Rosettelan ChangGlobulin (S) [Mass/Vol]3.6 g/dLNormal The [facility]amisburgComment on above:Performed By: #### CMP, LIPA ####[facility] Iasshowosf[address] [place], [place] [address]Dr. Rosettelan Acosta Glucose [Mass/Vol]77 mg/mEUvepqn72-183Kpx [facility]burgComment on above: Performed By: #### CMP, LIPA ####[facility] Tbhvogdwrj[address] [place], [place] [address]Dr. Yilan ChangPotassium [Moles/Vol]3.3 mmol/L Critically low3.5-5.1The [facility]amisburgComment on above:Performed By: #### CMP, LIPA ####[facility] Izsymcvifr69[address] [place], [place] [address]Dr. Yilan ChangProtein [Mass/Vol]8.0 g/dLNormal6.4-8.2The [facility] Comment on above:Performed By: #### CMP, LIPA ####[facility] [address]xq[address]jighh[address] [place] [address]Dr. Yilan ChangSodium [Moles/Vol]137 mmol/ASlusik751-161Scr [facility]amisburgComment on above: Performed By: #### CMP, LIPA ####[facility] Qkuqzphtxn260[address] [place] [address]Dr. Yilan ChangUrea nitrogen [Mass/Vol]27.0 mg/dL Critically high7.0-18.0The [facility]amisburgComment on above:Performed By: #### CMP, LIPA ####[facility] Lyjspsijkm27[address] [place] [address]Dr. Yilan ChangUrea nitrogen/Creatinine [Mass ratio]25.2 mg/mgNormWexner Medical CenterComment on above:Performed By: #### CMP, LIPA ####[facility] [address]jssgwav[address] [place] [address]Dr. Rosettelan ChangURINE MICROSCOPIC ONLYon 93-57-3944FQEBHCRFIAVV SEENNormalNONE SEENProtestant Deaconess HospitalComment on above:Performed By: #### ROCIO BRASWELLRO ####[facility] [address]imbeehii[address] [place] [address]Dr. Yadiel ChangBacteria identified Cx Nom (U)NOT INDICATEDNoSalem City HospitalComment on above: Performed By: #### MAYELA BRASWELLICRO ####[facility] [address]mrzwlqf[address] [place] [address]Dr. Yadiel ChangCASTNONE SEENNormalNONE SEENProtestant Deaconess HospitalComment on above:Performed By: #### FRENCH UMICRO ####[facility] Kzia[address]flj[address] [place], [place] [address]Dr. Yadiel ChangCrystals LM Nom (Urine sed)NONE SEENNormalNONE SEENProtestant Deaconess HospitalComment on above: Performed By: #### ERUR, UMICRO ####[facility] W[address]xruaj[address] [place], [place]Dr. Rosettelan ChangEpithelial cells LM Ql (Urine sed)RARE NormalNONE SEEN /RAREThe [facility]amisburgComment on above:Performed By: #### FRENCH, UMICRO ####[facility] [address]umdss[address] [place] [address]Dr. Yadiel ChangMUCOUSNONE SEENNormalNONE SEENProtestant Deaconess HospitalComment on above:Performed By: #### FRENCH, UMICRO ####[facility] Yzxmyzkbso[address] [place], [place]Dr. Yicharlee HndcjERW8-2Egqbwo0-8Ldq [facility] MiamisburgComment on above:Performed By: #### FRENCH UMICRO ####[facility] [address]bxduexo[address] [place] [id number]. Yadiel ChangWBCNONE SEEN NormalNONE SEENProtestant Deaconess HospitalComment on above:Performed By: #### FRENCH UMICRO ####[facility] Hcuyehsfbc[address] [place] [address]Dr. Yadiel AcostaC with Diffon [id number]. Basophil0.00 k/uLNormal 0.0-0.2[facility] Trace Regional HospitalComment on above:Performed By: #### RAMIRO PABON, LIP #### [facility] [address] [place] [id number] Revising Clerk: Jasmin Vides.Neutrophil (Seg)3.70 k/uLNormal2.5-7.0[facility] HospitalComment on above:Performed By: #### RAMRIO PABON, LIP #### [facility] [address] [place] [address] Revising Clerk: Estela Vides Diff PerformedYESNoUniversity Hospitals Parma [facility] Center Comment on above:Performed By: #### RAMIRO PABON, LIP #### [facility] [address] [place] [phone] Revising Clerk: Mine Roblero MDBasophils/100 WBC (Bld)1 %Normal0-2MCincinnati VA Medical CenterComment on above:Performed By: #### CP, CDP, LIP #### [facility] [address] [place] [address] Revising Clerk: ROSEMARY Videsosinophils (Bld) [#/Vol]0.10 10*3/uLNormal0.0-0.4 [facility] HospitalComment on above:Performed By: #### CP, CDP, LIP #### [facility] [address] [place] [address] Revising Clerk: ROSEMARY Videsosinophils/100 WBC (Bld)1 %Normal0-5[facility] HospitalComment on above:Performed By: #### CP, CDP, LIP #### [facility] [address] [place] [address] Revising Clerk: Mine Roblero MDErythrocyte distribution width (RBC) [Ratio]13.7 % Mblbtg14.1-15.2MCincinnati VA Medical CenterComment on above:Performed By: #### CP, CDP, LIP #### [facility] [address] [place] [address] Revising Clerk: Mine Roblero MDHematocrit (Bld) [Volume fraction]40.3 %Normal 36-46[facility] HospitalComment on above:Performed By: #### CP, CDP, LIP #### [facility] [address] [place] [address] Revising Clerk: Mine Roblero MDHemoglobin (Bld) [Mass/Vol]13.4 g/dLNormal 12.0-16.0[facility] HospitalComment on above:Performed By: #### CP, CDP, LIP #### [facility] [address] [place] [phone] Revising Clerk: Mine Roblero MDLymphocytes (Bld) [#/Vol]2.20 10*3/uLNormal1.0-4.8 [facility] HospitalComc.[facility] on above:Performed By: #### CP, CDP, LIP #### [facility] [address] [place] [phone] Revising Clerk: Astrid Videsmphocytes/100 WBC (Bld)34 %Wpxvsx50-85DjjbbCleveland Clinic Marymount HospitalComment on above:Performed By: #### CP, CDP, LIP #### [facility] [address] [place] [address] Revising Clerk: JAY VidesCH (RBC) [Entitic mass]29.7 fgLnkqvv64-12FepmlCleveland Clinic Marymount HospitalComment on above:Performed By: #### CM, CDP, LIP #### [facility] [address] [place] [phone] Revising Clerk: GANESH VidesC (RBC) [Mass/Vol]33.3 g/nQMjbkfg81-93WkockCleveland Clinic Marymount HospitalComment on above:Performed By: #### CP, CDP, LIP #### [facility] [address] [place] [phone] Revising Clerk: JAY VidesCV (RBC) [Entitic vol]89.0 iQWmomlw96-229ApckjCleveland Clinic Marymount HospitalComc.[facility]. [facility] on above:Performed By: #### CP, CDP, LIP #### [facility] [address] [place] [phone] Revising Clerk: JAY Videsonocytes (Bld) [#/Vol]0.40 10*3/uLNormal0.0-1.0 [facility] HospitalComc.[facility] on above:Performed By: #### CP, CDP, LIP #### [facility] [address] [place], [place] [address] Revising Clerk: JAY Videsonocytes/100 WBC (Bld)6 %Normal4-8[facility] HospitalComment on above:Performed By: #### CP, CDP, LIP #### [facility] [address] [place] [address] Revising Clerk: Mine Roblero MDNeutrophil (Seg)58 %Nhmwtj92-64IqjvzCleveland Clinic Marymount HospitalComment on above:Performed By: #### CP, CDP, LIP #### [facility] [address] [place] [address] Revising Clerk: Catrachita Videstelets (Bld) [#/Vol]245 10*3/kMQlfsrw244-362 [facility] HospitalComment on above:Performed By: #### CM, CDP, LIP #### [facility] [address] [place] [address] Revising Clerk: RBAIN VidesBC (Bld) [#/Vol]4.53 10*6/uLNormal4.0-5.2MCincinnati VA Medical CenterComment on above:Performed By: #### CP, CDP, LIP #### [facility] [address] [place] [address] Revising Clerk: VICTORIA VidesBC (Bld) [#/Vol]6.4 10*3/uLNormal3.5-11.0[facility] on above:Performed By: #### CP, CDP, LIP #### [facility] [address] [place] [phone] Revising Clerk: Mine Roblero MDAbsolute Eos #0.10[facility] HEALTHAbsolute Lymph #2.20[facility] HEALTHAbsolute Worth #0.40[facility] HEALTH Basophils (Bld) [#/Vol]0.00 10*3/uLBON [facility]OURS [facility] HEALTHBasophils/100 WBC (Bld)1 %0 - 2 %[facility] HEALTHDifferential TypeYESBON SECOURS [facility] HEALTHEosinophils/100 WBC (Bld)1 %0 - 5 %[facility] HEALTHHematocrit (Bld) [Volume fraction]40.3 %36 - 46 %[facility] HEALTHHemoglobin (Bld) [Mass/Vol]13.4 g/dL12.0 - 16.0 g/dLB[facility]OU[facility] HEALTHLymphocytes/100 WBC (Bld)34 %15 - 40 %[facility] HEALTHH (RBC) [Entitic mass]29.7 pg26 - 34 pgBON SECOURS WRIGHT-PATTERSON MEDICAL CENTERHC (RBC) [Mass/Vol]33.3 g/dL31 - 37 g/dLB[facility] HEALTHMCV (RBC) [Entitic vol]89.0 fL80 - [address] [facility] Monocytes/100 WBC (Bld)6 %4 - 8 %[facility] HEALTHPlatelet distribution width (Bld) [Ratio]13.7 %12.1 - 15.2 %[facility] HEALTHPlatelets (Bld) [#/Vol]245 10*3/uLBON [facility]OURS [facility]ITY [facility]ENTERY HEALTHRBC (Bld) [#/Vol]4.53 10*6/uL4.0 - 5.2 m/uLBON [facility]OURS [facility] HEALTHSegmented neutrophils/100 WBC (Bld)58 %47 - 75 %[facility] HEALTHSegs Absolute3.70[facility] HEALTHWBC (Bld) [#/Vol] 6.4 10*3/uLBON [facility]RS [facility] HEALTHB[facility] HEALTHCMPon 04-11-2022 Albumin [Mass/Vol]4 g/dL3.5 - 5.2 g/dLB[facility] HEALTHALP [Catalytic activity/Vol]85 U/L35 - 104 U/LBON SECOURS MERCY HEALTHALT [Catalytic activity/Vol]12 U/L5 - 33 U/LBON SEC[facility]RS [facility]CY HEALTHAnion gap [Moles/Vol]12 mmol/L9 - 17 mmol/LBON SECOURS MERCY HEALTHAST [Catalytic activity/Vol]21 U/L NINF - 32 U/LBON SECFORT HAMILTON HOSPITALBilirubin [Mass/Vol]0.5 mg/dL0.3 - 1.2 mg/dLBON SECFORT HAMILTON HOSPITALCalcium [Mass/Vol]9.0 mg/dL8.6 - 10.4 mg/dLBON SECFORT HAMILTON HOSPITALChloride [Moles/Vol]105 mmol/L98 - 107 mmol/LBON [facility] MEDICAL CENTERCyberHeart [facility] HOSPITALCO2 [Moles/Vol]23 mmol/L20 - 31 mmol/LBON [facility] [employer] Creatinine [Mass/Vol]1.03 mg/dLHigh0.50 - 0.90 mg/dLBON [facility] [employer] GFR/1.73 sq M.predicted MDRD (S/P/Bld) [Vol rate/Area]- PINFBON [facility] BLUFFTON HOSPITALComment on above: These results are not intended [...] therapy that affects renal tubular secretion. Glucose [Mass/Vol]119 mg/cUBxhy45 - 99 mg/dLBON [facility] [employer] Interpretation and review of laboratory resultsAbnormalBON [facility] [employer] Potassium [Moles/Vol]3.4 mmol/LLow3.7 - 5.3 mmol/LBON ANA[facility] REGIONAL MEDICAL CENTERSividon Diagnostics Protein [Mass/Vol]6.6 g/dL6.4 - 8.3 g/dLBON ANAHE[facility] REGIONAL MEDICAL CENTERCyberHeart [facility] COMMUNITY HOSPITALSodium [Moles/Vol]140 mmol/L135 - 144 mmol/LBON [facility] [employer] SystemsUrea nitrogen [Mass/Vol]23 mg/dLHigh6 - 20 mg/dLBON [facility] Neo[employer] SystemsUrea nitrogen/Creatinine (Bld) [Mass ratio]66Lovv1 - 20BON [facility] MED[facility] CENTERCyberHeart [facility]ITALCT ABDOMEN PELVIS WO CONTRASTon [id number] ABDOMEN PELVIS WO CONTRASTEXAMINATION: CT ABDOMEN PELVIS WO CONTRAST, 04/11/2022 3:49 PM EST HISTORY: Reason for exam:->right flank pain and RLQ pain hx of kidney stone COMPARISON: [place] 09/18/2021. TECHNIQUE: CT scan of the abdomen [...] by: Roddy Balbuena Jr., MD 04/11/22 Final resultNormalCleveland Clinic Marymount HospitalCT ABDOMEN PELVIS WO CONTRAST Additional Contrast? Noneon 04-11-2022 Punctate nonobstructing stone barely visible in the right kidney. No explanation for pain. [facility] CONSOLIDATEDEXAMINATION: CT ABDOMEN PELVIS WO CONTRAST, 04/11/2022 3:49 PM EST HISTORY: Reason for exam:->right flank pain and RLQ pain hx of kidney stone COMPARISON: [place] 09/18/2021. TECHNIQUE: CT scan of the abdomen [...] spleen, pancreas and adrenal glands. Bladder empty. [facility] Roddy Perez Jr., MD - 04/11/2022 EXAMINATION: CT ABDOMEN PELVIS WO CONTRAST, 04/11/2022 3:49 PM EST HISTORY: Reason for exam:->right flank pain and RLQ pain hx of kidney stone COMPARISON: [place] 09/18/2021. TECHNIQUE: CT scan of the abdomen [...] the right kidney. No explanation for pain. [facility] [employer] ([employer]) Phone: radiology Study observation (narrative)DxTerity [facility] PHOENIXVirtual 3-D Display for Smartphones Phone: cT ABDOMEN PELVIS WO CONTRAST Additional Contrast? NoneOrdered By: Roddy Balbuena on [id number] [facility] PHOENIXVirtual 3-D Display for Smartphones Phone: Comp Metabolic Profon 32-22-8571Nnsnaqk [Mass/Vol]4.0 g/dLNormal3.5-5.2Mer[facility] Trace Regional HospitalComment on above:Performed By: #### RAMIRO PABON, LIP #### [facility] [address] [phone] Revising Clerk: Mine Roblero MDAlkaline Phos85 U/UMfgleb27-121VezpdCleveland Clinic Marymount HospitalComment on above:Performed By: #### RAMIRO PABON, LIP #### [facility] [address] [place] [address] Revising Clerk: Mine Roblero MDALT [Catalytic activity/Vol]12 U/LNormal5-33Cleveland Clinic Marymount HospitalComment on above:Performed By: #### RAMIRO PABON, LIP #### [facility] [address] [place] [address] Revising Clerk: Mine Roblero MDAnion gap [Moles/Vol]12 mmol/LNormal9-17C[facility] Clinic Marymount HospitalComc.[facility]. [facility] on above:Performed By: #### CM CDP, LIP #### [facility] [address] [place] [address] Revising Clerk: Mine Roblero MDAST [Catalytic activity/Vol]21 U/LNormal<32C[facility] Clinic Marymount HospitalComment on above:Performed By: #### CP, CDP, LIP #### [facility] [address] [phone] Revising Clerk: Mine Roblero MDBilirubin [Mass/Vol]0.5 mg/dLNormal0.3-1.2MCincinnati VA Medical CenterComment on above:Performed By: #### CP, CDP, LIP #### [facility] [address] [place] [address] Revising Clerk: Mine Roblero MDBUN/CRE Vscxz15Zzqi0-16EqcpsCleveland Clinic Marymount Hospital Comment on above:Performed By: #### CP, CDP, LIP #### [facility] [address] [place] [address] Revising Clerk: GERALD Videsalcium [Mass/Vol]9.0 mg/dLNormal8.6-10.4C[facility] Clinic Marymount HospitalComment on above:Performed By: #### CP, CDP, LIP #### [facility] [address] [place] [address] Revising Clerk: GERALD Videshloride [Moles/Vol]105 mmol/GEwgquc07-526AbbcnCleveland Clinic Marymount HospitalComment on above:Performed By: #### CP, CDP, LIP #### [facility] [address] [place] [address] Revising Clerk: Mine Roblero MDCO2 [Moles/Vol]23 mmol/LCopdfh83-48McokaCleveland Clinic Marymount HospitalComment on above:Performed By: #### CP, CDP, LIP #### [facility] [address] [phone] Revising Clerk: GERALD Videsreatinine [Mass/Vol]1.03 mg/dLHigh0.50-0.90C[facility] Clinic Marymount HospitalComment on above:Performed By: #### CP, CDP, LIP #### [facility] [address] [phone] Revising Clerk: Mine Roblero MDGFR/1.73 sq M.predicted among non-blacks MDRD (S/P/Bld) [Vol rate/Area]mL/min/{1.73_m2}Normal>60C[facility] Clinic Marymount HospitalComment on above:Result Comment: These results are not intended for [...] or following therapy that affects renal tubular secretion.Performed By: #### CM CDP, LIP #### [facility] [address] [place] [address] Revising Clerk: Mine Roblero MDGlucose [Mass/Vol]119 mg/gRLwcz53-49EcnnvCincinnati VA Medical CenterComment on above:Performed By: #### CM CDP, LIP #### [facility] [address] [place] [address] Revising Clerk: SURINDER Videsotassium [Moles/Vol]3.4 mmol/LLow3.7-5.3MCincinnati VA Medical CenterComment on above:Performed By: #### CM CDP, LIP #### [facility] [address] [phone] Revising Clerk: Mine Roblero MDProtein [Mass/Vol]6.6 g/dLNormal6.4-8.3MCincinnati VA Medical CenterComment on above:Performed By: #### CP CDP, LIP #### [facility] [address] [phone] Revising Clerk: Mine Roblero MDSodium [Moles/Vol]140 mmol/ZWqnnqi528-135WilczCleveland Clinic Marymount HospitalComment on above:Performed By: #### CM CDP, LIP #### [facility] [address] [place], [place] [id number] Revising Clerk: Mine Roblero MDUrea nitrogen [Mass/Vol]23 mg/dLHigh6-20C[facility] Clinic Marymount HospitalComment on above:Performed By: #### CM CDP, LIP #### [facility] [address] [place], [place] [id number] Revising Clerk: Mine Roblero MDLipaseon 20-56-2457Fioucp [Catalytic activity/Vol] 52 U/KGjyifb22-25WdwteCleveland Clinic Marymount HospitalComment on above:Performed By: #### RAMIRO PABON, LIP #### [facility] [address] [place] [address] Revising Clerk: Mine Roblero MDLipase [Catalytic activity/Vol]52 U/L13 - 60 U/L BON [facility] HEALTHMicroscopic Urinalysison 04-11-2022-BON [facility] HEALTHBacteria, UA2+AbnormalNoneBON [facility] HEALTHEpithelial Cells UA10 TO 20/HPFSENTARA MARTHA JEFFERSON HOSPITALY HEALTHInterpretation and review of laboratory results AbnormalBON [facility] HEALTHRBC clumps Auto (Urine sed) [#/Area]2 TO 5BON SECLOURDES [facility]ICAL CENTERY HEALTHWBC, UA2 TO 50 /HPFBON [facility] HEALTHBON SECLOURDES MEDICAL CENTERY HEALTHNo Panel Informationon [id number] SECLOURDES MEDICAL CENTERY HEALTHUrinalysison 56-92-1203Oznkwomrk UrineNegativeNEGATIVESENTARA MARTHA JEFFERSON HOSPITALY HEALTHColor, UAYellow YellowBON [facility] HEALTHGlucose Auto test strip (U) [Mass/Vol]Negative NEGATIVEBON [facility]ENTERY HEALTHInterpretation and review of laboratory results AbnormalBON SECOURS MERCY HEALTHKetones (U) [Mass/Vol]NegativeNEGATIVEBON [facility] HEALTHLeukocyte esterase Auto test strip Ql (U)2+AbnormalNEGATIVE BON [facility] HEALTHNitrite Auto test strip Ql (U)NegativeNEGATIVEBON [facility] CENTERY HEALTHProtein (U) [Mass/Vol]6.0 mg/dL5.0 - 8.0BON [facility]TON HOSPITALProtein (U) [Mass/Vol]1+AbnormalNEGATIVEBON SECOU[facility] HOSPITALSpecific [place], UA1.0251.005 - 1.030BON [facility] BLUFFTON HOSPITALTurbidity UAClearClearBON SECFORT HAMILTON HOSPITALUrinalysis CommentsBON SECFORT HAMILTON HOSPITALUrine HgbNegative NEGATIVEBON SECFORT HAMILTON HOSPITALUrobilinogen, UrineNormalNormalBON [facility] HEALTHBON SECFORT HAMILTON HOSPITALUrinalysis, Routineon 55-40-3271Oijuszern, SemiQt,UrNegativeNormalNEGMerSt. Joseph's HealthComment on above:Performed By: #### UA, UMICAO #### [facility] [address] [place] [address] Revising Clerk: Mercedes Vides, UrineNegativermMcCullough-Hyde Memorial HospitalComment on above:Performed By: #### UA, UMICAO #### [facility] [address] [place], [place] [address] Revising Clerk: Jorge Videsty ()ClearLiberty HospitalalCKnox Community Hospital Comment on above:Performed By: #### UA, UMICAO #### [facility] [address] [place] [address] Revising Clerk: GERALD Videsolor (U)YellowHolzer Medical Center – Jackson Comment on above:Performed By: #### UA, UMICAO #### [facility] [address] [place] [address] Revising Clerk: GERALD VidesommentCleveland Clinic Union HospitalComment on above:Performed By: #### UA, UMICAO #### [facility] [address] [place] [address] Revising Clerk: Chad Vides Ql (U)NegativeNormalNEGMercy Tokeland HospitalComment on above:Performed By: #### UA, UMICAO #### [facility] [address] [place] [address] Revising Clerk: Mine Roblero MDKetones Ql (U)NegativeNormalNEGCleveland Clinic Marymount HospitalComment on above:Performed By: #### UA, UMICAO #### [facility] [address] [place] [address] Revising Clerk: Mine Roblero MDLeukocyte esterase Test strip Ql (U)2+AbnormalNEG [facility] HospitalComment on above:Performed By: #### UA, UMICAO #### [facility] [address] [place] [address] Revising Clerk: Marina Videstrite,UrNegativeNormalOhio State Health System Comment on above:Performed By: #### NEHAL, UMICAO #### [facility] [address] [place] [address] Revising Clerk: SURINDER Vides,Ur6.4Nmrjid3.0-8.0C[facility] Clinic Marymount HospitalComment on above:Performed By: #### UA, UMICAO #### [facility] [address] [place] [address] Revising Clerk: Elsa Vides Ql (U)1+AbnormalNEGCleveland Clinic Marymount Hospital Comment on above:Performed By: #### UA, UMICAO #### [facility] [address] [place] [address] Revising Clerk: AKILAH Videspec. [place],Ur1.345Hrsmop3.005-1.030C[facility] HospitalComment on above:Performed By: #### UA, UMICAO #### [facility] [address] [place] [address] Revising Clerk: Duncan Videsbilinogen,UrNormalNormalNORMCleveland Clinic Marymount HospitalComment on above:Performed By: #### UA, UMICAO #### [facility] [address] [place] [address] Revising Clerk: Mine Roblero MDUrinalysis,Microon 04-11-2022-----NormalCleveland Clinic Marymount HospitalComment on above:Performed By: #### UA, UMICAO #### [facility] [address] [place] [address] Revising Clerk: Mine Roblero MDBacteria2+AbnormalNONEMeGuernsey Memorial Hospital Comment on above:Performed By: #### UA, UMICAO #### [facility] [address] [place] [address] Revising Clerk: Mine Roblero MDEpithelial cells LM Ql (Urine sed)10 TO 20Normal [facility] HospitalComment on above:Performed By: #### UA, UMICAO #### [facility] [address] [place], [place] [address] Revising Clerk: Jose Vides RBC's[address] [place] [address] Comment on above:Performed By: #### UA, UMICAO #### [facility] [address] [place] [address] Revising Clerk: Jsoe Vides WBC's[address] [place] [address] Comment on above:Performed By: #### UA, UMICAO #### [facility] [address] [place], [place] [address] Revising Clerk: ANSHUL Vides Chest w/o Contraston [id number] Chest w/o ContrastEXAMINATION: CTA chest screening CLINICAL HISTORY: Lung nodule, smoker COMPARISON: [...] and signed by NETTA PITT on 01/02/2022 1529[facility] Medical SpecialistXR FINGER MIN 2 VIEWSon [id number] FINGER MIN 2 VIEWS Exam: XR FINGER MIN 2 VIEWS Clinician Provided Indication: Fracture dislocation [...] Electronically authenticated by: DIANA HATCH Date: 2021-12-26 02:10[facility] HospitalHAND RIGHT 3 VWSon 67-15-0142ARTA RIGHT 3 VWSUniPremier Health Department of Radiology [address] [place] [phone] Patient Name: TASNEEM CAMARILLO : 1975 Sex: F Age: Race: White Pt. Location: 83 Patient Status: O Ordered Date: 11/08/2021 10:05:00 AM Completed Date: 11/08/2021 10:06 AM Requesting Provider: ALIRIO BEAR Attending Provider: ALIRIO BEAR Report Copy To: Signs & Symptoms: M79.641 Pain in right hand I10 History: [place] Comments: focus on small finger please Exam: HAND RIGHT 3 VWS HAND RIGHT 3 VWS 11/08/2021 10:06 AM [...] report. Electronically signed: Rad Cano. Transcribed by: [email or web address], User Resident: SINDY LEBLANC Electronically Signed by: RAD Arcelia CANO @ 11/08/2021 11:46 AM I personally read this/these film(s) with this residentGuernsey Memorial HospitalComment on above:Order Comment: focus on small finger pleaseHAND RIGHT 3 VWSon [id number] RIGHT 3 SUniPremier Health Department of Radiology [address] [place] [phone] Patient Name: TASNEEM CAMARILLO : 1975 Sex: F Age: Race: White Pt. Location: Patient Status: Ordered Date: 11/02/2021 2:45:00 PM Completed Date: 11/02/2021 03:09 PM Requesting Provider: ALIRIO BEAR Attending Provider: Report Copy To: Signs & Symptoms: M79.641 Pain in right hand I10 History: [place] Comments: , , , Ordering Provider - [...] report. Electronically signed: Alex Arizmendi. Transcribed by: [email or web address], User Resident: SINDY LEBLANC Electronically Signed by: ALEX ARIZMENDI @ 11/06/2021 03:10 PM I personally read this/these film(s) with this residentGuernsey Memorial HospitalComment on above:Order Comment: , , , Ordering Provider - ALIRIO BEAR MD , CT Chest w/o Contraston [id number] Chest w/o ContrastHISTORY: Pulmonary nodule COMPARISON: CT abdomen and pelvis [...] and signed by Eloisa Brown on 10/04/2021 1219NormalNorthern Methodist Medical Center Of [facility], Operated By [facility] SpecialistAMYLASEon 37-10-6983Syqudoi [Catalytic activity/Vol]62 U/MJzbagv10-187Cgg Premier Healthment on above:Performed By: #### LIPA, CMP, ANGELINE #### [facility] [address] [place], [place] [address] Dr. Yadiel AcostaCBC AUTO DIFFon 62-73-8080NFTV #0.1 103/ulNormal0.0-0.1The [facility] on above:Performed By: #### CBC ####[facility] Incjwtejoh[address] [address]Dr.Yadiel AcostaBasophils/100 WBC (Bld)1.1 %Normal0.2-2.0The [facility] on above:Performed By: #### CBC ####[facility] [address] [address]Dr.Yadiel ChangEO #0.1 103/ulNormal0.0-0.7The [facility] on above:Performed By: #### CBC ####[facility] [address] [address]Dr.Yadiel Camargoosinophils/100 WBC (Bld)2.3 %Normal 0.9-7.0The Premier Healthment on above:Performed By: #### CBC ####[facility] [address] [address]Dr.Yadiel Acosta Erythrocyte distribution width (RBC) [Ratio]13.2 %Ylrrik59.0-15.0The Premier Healthment on above:Performed By: #### CBC ####[facility] [address] [address]Dr.Yadiel AcostaHematocrit (Bld) [Volume fraction]39.1 %Ampzwa11.0-48.0The [facility] MiamisburgComment on above:Performed By: #### CBC ####[facility] Ccfzpyzv[address] [place], [place] [address]Dr.Yadiel AcostaHemoglobin (Bld) [Mass/Vol]12.5 g/dL Pyleic34.0-16.0The [facility] MiamisburgComment on above:Performed By: #### CBC ####[facility] Jngiaidq[address] [place], [place] [address]Dr. Yadiel ChangIG #0.02 10e3/ulNormal0.00-0.03The [facility] Health MiamisburgComment on above: Performed By: #### CBC ####[facility] Dubuzh[address] [place], [place] [address]Dr.Yadiel DaveIG %0.4 %Normal0.0-0.5The [facility] MiamisburgComment on above:Performed By: #### CBC ####[facility] Skpnfwszaa[address] [place], [place] [address]Dr.Yadiel ChangLYMPH #2.5 103/ulNormal1.2-3.8The [facility] MiamisburgComment on above:Performed By: #### CBC ####[facility] W[address]of[address]stz[address] [place], [place] [address]Dr. Yadiel AcostaLymphocytes/100 WBC (Bld)44.5 %Xgvpwt64.5-60.0The [facility] Comment on above:Performed By: #### CBC ####[facility] [address] [place], [place] [address]Dr.Yadiel AcostaMANUAL DIFF REQNONormalThe [facility] MiamisburgComment on above:Performed By: #### CBC ####[facility] Lqofyoabet[address] [place], [place] [address]Dr.Yadiel AcostaH (RBC) [Entitic mass]29.6 kxFwecvt41.7-34.0The [facility] MiamisburgComment on above: Performed By: #### CBC ####[facility] Datoroikxh[address] [place], [place] [address]Dr.Yadiel AcostaLINCOLN HOSPITAL (RBC) [Mass/Vol]32.0 g/dLNormal 29.9-35.2The [facility] MiamisburgComment on above:Performed By: #### CBC ####[facility] Zwoyvukgyu[address] [place], [place] [address]Dr. Yadiel AcostaMCV (RBC) [Entitic vol]92.4 iDAodmeu66.0-99.0The [facility] Comment on above:Performed By: #### CBC ####[facility] Psymwqzgbp[address] [place], [place] [address]Dr.Yadiel AcostaMONO #0.4 103/ulNormal0.3-0.8 The [facility] MiamisburgComment on above:Performed By: #### CBC ####[facility] Kwgphxrvrr[address] [place], [place] [address]DrElena Acosta Monocytes/100 WBC (Bld)6.4 %Normal1.7-12.0The [facility] MiamisburgComment on above: Performed By: #### CBC ####[facility] Vzsfqlrfns[address] [place], [place] [address]Dr.Yadiel AcostaNEUT #2.6 103/ulNormal1.4-6.5The [facility] MiamisburgComment on above:Performed By: #### CBC ####[facility] Hoxdcmmlpx[address] [place], [place] [address]Dr.Yadiel AcostaNeutrophils/100 WBC (Bld)45.3 %Gofzso80.0-75.0The [facility] MiamisburgComment on above:Performed By: #### CBC ####[facility] Mdunsuwvue[address] [place], [place] [address]Dr.Yadiel AcostaPlatelet mean volume (Bld) [Entitic vol]9.5 fLNormal9.5-13.5 The [facility] MiamisburgComment on above:Performed By: #### CBC ####[facility] Fkkbpwonoq[address] [place], [place] [address]Dr.Yadiel AcostaPLT293 103/hzBhpnfq574-420Xba [facility] MiamisburgComment on above:Performed By: #### CBC ####[facility] Agvhzttruq[address] [place], [place] [address]Dr. Yadiel AcostaRBC4.23 106/ulNormal4.20-5.40The [facility] MiamisburgComment on above: Performed By: #### CBC ####[facility] [address] [place], [place] [address]SaElena ChangWBC5.6 103/ulNormal4.0-11.0The [facility] MiamisburgComment on above:Performed By: #### CBC ####[facility] [address] [place], [place] [address]NpElena ChangCT ABD/PELV W CONon [id number] ABD/PELV W CONEXAMINATION: CT ABD/PELV W CON, 09/18/2021 5:28 AM EDT HISTORY: [...] Electronically authenticated by: MINE STAHL Date: 2021-09-18 07:11[facility] Mansfield HospitalLIPASEon 89-31-7196Jlcwne [Catalytic activity/Vol]141.0 U/L Hksqkk42.0-393.0The [facility] MiamisburgComment on above:Performed By: #### LIPA, CMP, ANGELINE #### [facility] [address] [place] [address] Dr. Yadiel Norwood 14(COMP METB)on 09-99-1717Bkxajca [Mass/Vol]3.6 g/dLNormal 3.4-5.0The [facility] MiamisburgComment on above:Performed By: #### LIPA, CMP, ANGELINE #### [facility] [address] [place] [address] Dr. Yadiel AcostaAlbumin/Globulin [Mass ratio]1.1 {ratio}NormalThe [facility] MiamisburgComment on above:Performed By: #### LIPA, CMP, ANGELINE #### [facility] [address] [place] [address] Dr. Yadiel Thomson [Catalytic activity/Vol]89 U/EHnjrsp75-844Lds [facility] MiamisburgComment on above:Performed By: #### LIPA, CMP, ANGELINE #### [facility] [address] [place] [address] Dr. Yadiel Giron [Catalytic activity/Vol]22 U/PEoltix53-95Kug [facility] MiamisburgComment on above:Performed By: #### LIPA, CMP, ANGELINE #### [facility] [address] [place] [address] Dr. Yadiel Morse gap [Moles/Vol]10.2 mmol/LNormalThe [facility] Comment on above:Performed By: #### LIPA, CMP, ANGELINE #### [facility] [address] [place] [address] Dr. Yadiel Khan [Catalytic activity/Vol]18 U/LYomiur10-06Krw [facility] MiamisburgComment on above:Performed By: #### LIPA, CMP, ANGELINE #### [facility] [address] [place] [address] Dr. Yadiel AcostaBilirubin [Mass/Vol]0.9 mg/dLNormal0.2-1.0The [facility] Comment on above:Performed By: #### LIPA, CMP, ANGELINE #### [facility] [address] [address] [address] Yadiel AcostaCalcium [Mass/Vol]8.6 mg/dLNormal8.5-10.1The [facility] Comment on above:Performed By: #### LIPA, CMP, ANGELINE #### [facility] [address] [place] [address] Dr. Yadiel AcostaChloride [Moles/Vol]106 mmol/AItyyle54-175Qxk [facility] Comment on above:Performed By: #### LIPA, CMP, ANGELINE #### [facility] [address] [place] [address] Dr. Yadiel AcostaCO2 [Moles/Vol]27.4 mmol/NRvtuzh12.0-32.0The [facility] Comment on above:Performed By: #### LIPA, CMP, ANGELINE #### [facility] [address] [place] [address] Dr. Yadiel AcostaCreatinine [Mass/Vol]1.04 mg/dLCritically high0.55-1.02Pro[facility]ant Deaconess HospitalComment on above:Performed By: #### LIPA, CMP, ANGELINE #### [facility] [address] [place] [address] Dr. Yadiel CamargoGFR-AF BRITISH VIR[place] ISLANDER>60Normal>=60The [facility] MiamisburgComment on above:Performed By: #### LIPA, CMP, ANGELINE #### [facility] [address] [place] [address] Dr. Yadiel CamargoGFR-NON AF JMAOYOZB82 mL/min/1.49u1Ygcilliegr low>=60The [facility]amisburgComment on above:Performed By: #### LIPA, CMP, ANGELINE #### [facility] [address] [place] [address] Dr. Yadiel AcostaGlobulin (S) [Mass/Vol]3.4 g/dLNormalThe [facility]burgComment on above:Performed By: #### LIPA, CMP, ANGELINE #### [facility] [address] [place] [address] Dr. Yilan ChangGlucose [Mass/Vol]100 mg/qGNkvioh78-787Phn [facility] Comment on above:Performed By: #### LIPWard CMP, ANGELINE #### [facility] [address] [address] [address] Yadiel AcostaPotassium [Moles/Vol]3.6 mmol/LNormal3.5-5.1The [facility] Comment on above:Performed By: #### LIPWard CMP, ANGELINE #### [facility] [address] [address] [address] Yadiel AcostaProtein [Mass/Vol]7.0 g/dLNormal6.4-8.2The [facility] Comment on above:Performed By: #### LIPWard CMP, ANGELINE #### [facility] [address] [place] [address] Dr. Yadiel AcostaSodium [Moles/Vol]140 mmol/KDsafbl240-593Rib [facility] Comment on above:Performed By: #### LIPWard CMP, ANGELINE #### [facility] [address] [place] [address] Dr. Yadiel AcostaUrea nitrogen [Mass/Vol]15.0 mg/dLNormal7.0-18.0The [facility]burgComment on above:Performed By: #### LIPWard CMP, ANGELINE #### [facility] [address] [place] [address] Dr. Yadiel AcostaUrea nitrogen/Creatinine [Mass ratio]14.4 mg/mgNormalThe [facility]amisburgComment on above:Performed By: #### LIPA, CMP, ANGELINE #### [facility] [address] [place] [address] Dr. Yadiel Hairston AUTO DIFFon 02-28-8409QZEH #0.1 103/ulNormal0.0-0.1The [facility] MiamisburgComment on above:Performed By: #### CBC ####[facility] [address] [address]Dr.Yilan AcostaBasophils/100 WBC (Bld)0.7 %Normal0.2-2.0The [facility]amisburgComment on above:Performed By: #### CBC ####[facility] Qgwrfrqfpt[address] [place], [place] [address]Dr.Yilan ChangEO #0.2 103/ulNormal0.0-0.7The Farming[facility] HospitalComment on above:Performed By: #### CBC ####[facility] Ajvrxizbcx[address] [place], [place] [address]Dr.Rosettecharlee ChangEosinophils/100 WBC (Bld)2.3 %Normal 0.9-7.0The [facility] HospitalComment on above:Performed By: #### CBC ####[facility] Uvqjuozhgn[address] [place], [place] [address]Dr.Yadiel Acosta Erythrocyte distribution width (RBC) [Ratio]13.6 %Bpkzfn54.0-15.0The [facility]amisburgComment on above:Performed By: #### CBC ####[facility] Znlsrslnex[address] [place], [place] [address]Dr.Yadiel ChangHematocrit (Bld) [Volume fraction]35.0 %Critically low36.0-48.0The [facility] HospitalComment on above:Performed By: #### CBC ####[facility] Bfzgmqleqz[address] [place], [place] [address]Dr.Yadiel ChangHemoglobin (Bld) [Mass/Vol]11.2 g/dL Critically low12.0-16.0The [facility]amisburgComment on above:Performed By: #### CBC ####[facility] Irwwwwugxr[address] [place], [place] [address]Dr. Yadiel ChangIG #0.02 10e3/ulNormal0.00-0.03The [facility] HospitalComment on above: Performed By: #### CBC ####[facility] Xolzcdlmia[address] [place], [place] [address]Dr.Yadiel ChangIG %0.3 %Normal0.0-0.5The [facility]amisburgComment on above:Performed By: #### CBC ####[facility] Poelidewpu[address] [place], [place] [address]Dr.Yadiel ChangLYMPH #2.5 103/ulNormal1.2-3.8The [facility]burgComment on above:Performed By: #### CBC ####[facility] Tcxnuxsxph[address] [place], [place] [address]Dr. Yadiel AcostaLymphocytes/100 WBC (Bld)34.4 %Pbbdzm83.5-60.0[facility] Comment on above:Performed By: #### CBC ####[facility] Twnsgdfqob[address] [place], [place] [address]Dr.Yadiel AcostaMANUAL DIFF REQNONormalThe [facility]amisburgComment on above:Performed By: #### CBC ####[facility] Xvbuuyxlsu[address] [place], [place] [address]Dr.Yadiel AcostaH (RBC) [Entitic mass]30.0 xuKfpbta77.7-34.0The [facility]amisburgComment on above: Performed By: #### CBC ####[facility] Qoudxvdfwi17[address] [place], [place] [address]Dr.Yadiel AcostaMCHC (RBC) [Mass/Vol]32.0 g/dLNormal 29.9-35.2The [facility]amisburgComment on above:Performed By: #### CBC ####[facility] Kvktcnstgl[address] [place], [place] [address]Dr. Yadiel DaveV (RBC) [Entitic vol]93.8 xWPqvzmx18.0-99.0The [facility] Comment on above:Performed By: #### CBC ####[facility] Hywzvoslxm[address] [place], [place] [address]Dr.Rosettecharlee AcostaMONO #0.6 103/ulNormal0.3-0.8 The [facility]amisburgComment on above:Performed By: #### CBC ####[facility] Ncwyjemlvu[address] [place], [place] [address]Dr.Rosettecharlee Acosta Monocytes/100 WBC (Bld)8.5 %Normal1.7-12.0The [facility]amisburgComment on above: Performed By: #### CBC ####[facility] Pndnmftpzr[address] [place], [place] [address]Dr.Yadiel AcostaNEUT #3.9 103/ulNormal1.4-6.5The [facility]amisburgComment on above:Performed By: #### CBC ####[facility] [address] [address]Dr.Yadiel AcostaNeutrophils/100 WBC (Bld)53.8 %Bjztrk02.0-75.0The [facility]amisburgComment on above:Performed By: #### CBC ####[facility] [address] [address]Dr.Yadiel AcostaPlatelet mean volume (Bld) [Entitic vol]9.6 fLNormal9.5-13.5 The [facility] MiamisburgComment on above:Performed By: #### CBC ####[facility] Ubrzspcobe[address] [place], [place] [address]Dr.Yadiel SzzkzFCB062 103/qkLsdwwc081-310Wep [facility]burgComment on above:Performed By: #### CBC ####[facility] [address]umm[address] [address]Dr. Yadiel ChangRBC3.73 106/ulCritically low4.20-5.40The [facility]burgComment on above:Performed By: #### CBC ####[facility] Chfcadjxij16[address] [place], [place] [address]Dr.Yadiel AcostaWBC7.3 103/ulNormal4.0-11.0The [facility] MiamisburgComment on above:Performed By: #### CBC ####[facility] Wetzmszrdj[address] [place], [place] [address]Dr.Yadiel ChangCT ABD/PELVIS WO CONon [id number] ABD/PELVIS WO CONCT SCAN OF THE ABDOMEN AND PELVIS WITHOUT CONTRAST, 09/01/2021 3:54 PM [...] Electronically authenticated by: Juancarlos YUSUF Date: 2021-09-01 16:51[facility] URINE PROFILEon [id number] Ql (U)NegativeNormal NEGATIVEProtestant Deaconess HospitalComment on above:Performed By: #### LALY BRASWELL #### [facility] [address] [place] [address] Dr. Yadiel Reeves (U)CLEARNormalCLEARProtestant Deaconess HospitalComment on above: Performed By: #### LALY BRASWELL #### [facility] [address] [place] [address] Dr. Yadiel Ventura (U)LT. YELLOWNormalYELLOWThe [facility]amisburgComment on above:Performed By: #### LALY BRASWELL #### [facility] [address] [place] [address] Dr. Yadiel Chapman micrscopic examination will be performed if indicated. NormalThe Farmingdale HospitalComment on above:Performed By: #### ROCIO BRASWELLRO #### [facility] [address] [place] [address] Dr. Yadiel AcostaGlucose Ql (U)NegativeNormalNEGATIVEMansfield Hospital HospitalComment on above:Performed By: #### ROCIO BRASWELLRO #### [facility] [address] [place] [address] Dr. Yadiel AcostaHemoglobin Ql (U)TRACE-INTACTAbnormalNEGATIVEProtestant Deaconess HospitalComment on above:Performed By: #### ROCIO BRASWELLRO #### [facility] [address] [place] [address] Dr. Yadiel AcostaKetones Ql (U)NegativeNormalNEGATIVEProtestant Deaconess HospitalComment on above:Performed By: #### ROCIO BRASWELLRO #### [facility] [address] [place] [address] Dr. Yadiel AcostaLEUKOCYTESNegativeNormalNEGATIVEProtestant Deaconess HospitalComment on above:Performed By: #### ROCIO BRASWELLRO #### [facility] [address] [place] [address] Dr. Yadiel AcostaNitrite Ql (U)NegativeNormalNEGATIVEProtestant Deaconess HospitalComment on above:Performed By: #### ROCIO BRASWELLRO #### [facility] [address] [place] [address] Dr. Yadiel AcostapH (U)7.0 [pH]Normal5-9Pro[facility] Deaconess HospitalComment on above: Performed By: #### ROCIO BRASWELLRO #### [facility] [address] [place] [address] Dr. Yadiel AcostaSPEC GRAVITY1.041Rueipd3.005-<=1.025The [facility]burgComment on above:Performed By: #### MAYELA BRASWELLICRO #### [facility] [address] [place] [address] Dr. Yadiel AcostaUA PROTEINNegativeNormalNEGATIVE/ TRACEThe [facility] Comment on above:Performed By: #### LALY BRASWELL #### [facility] [address] [place] [address] Dr. Yadiel BEAR INDINDICATEDNormalThe [facility]burgComment on above: Performed By: #### LALY BRASWELL #### [facility] [address] [place] [address] Dr. Yadiel Trejobilino Qn (U)0.2 {Stan'U}/dLNormal0.2 - 1.0The [facility]burgComment on above:Performed By: #### LALY BRASWELL #### [facility] [address] [place] [address] Dr. Yadiel Norwood 14(COMP METB)on [id number] [Mass/Vol]3.7 g/dLNormal 3.4-5.0The [facility]burgComment on above:Performed By: #### CMP #### [facility] [address] [place] [address] Dr. Yadiel AcostaAlbumin/Globulin [Mass ratio]1.1 {ratio}NormalThe [facility]burgComment on above:Performed By: #### CMP #### [facility] [address] [place] [address] Dr. Yadiel Thomson [Catalytic activity/Vol]77 U/QZlaspk58-865Lhd [facility]burgComment on above:Performed By: #### CMP #### [facility] [address] [place] [address] Dr. Yadiel Giron [Catalytic activity/Vol]25 U/LIagejf26-09Cjw [facility]burgComment on above:Performed By: #### CMP #### [facility] [address] [place] [address] Dr. Yadiel Morse gap [Moles/Vol]9.8 mmol/LNormalThe [facility]burgComment on above:Performed By: #### CMP #### [facility] [address] [place] [address] Dr. Yadiel AcostaAST [Catalytic activity/Vol]21 U/WRwdlsv85-42Cpp [facility]burgComment on above:Performed By: #### CMP #### [facility] [address] [place] [address] Dr. Yadiel AcostaBilirubin [Mass/Vol]1.0 mg/dLNormal0.2-1.0The [facility] Comment on above:Performed By: #### CMP #### [facility] [address] [place] [address] Dr. Yadiel AcostaCalcium [Mass/Vol]8.2 mg/dLCritically low8.5-10.1The [facility]burgComment on above:Performed By: #### CMP #### [facility] [address] [place] [address] Dr. Yadiel AcostaChloride [Moles/Vol]107 mmol/ZZtypgh27-005Fng [facility] Comment on above:Performed By: #### CMP #### [facility] [address] [place] [address] Dr. Yadiel AcostaCO2 [Moles/Vol]27.3 mmol/UIftlup51.0-32.0The [facility] Comment on above:Performed By: #### CMP #### [facility] [address] [place] [address] Dr. Yadiel AcostaCreatinine [Mass/Vol]0.98 mg/dLNormal0.55-1.02The [facility]burgComment on above:Performed By: #### CMP #### [facility] [address] [place] [address] Dr. Yadiel CamargoGFR-AF BRITISH VIRGIN ISLANDER>60Normal>=60The [facility]burgComment on above:Performed By: #### CMP #### [facility] [address] [place] [address] Dr. Yadiel CamargoGFR-NON AF BRITISH VIRGIN ISLANDER>60Normal>=60The [facility]burgComment on above:Performed By: #### CMP #### [facility] [address] [place] [address] Dr. Yadiel AcostaGlobulin (S) [Mass/Vol]3.3 g/dLNormWexner Medical CenterComment on above:Performed By: #### CMP #### [facility] [address] [address] [address] Yadiel AcostaGlucose [Mass/Vol]88 mg/tMRrcxgo98-905TdyProtestant Deaconess Hospital Comment on above:Performed By: #### CMP #### [facility] [address] [address] [address] Yadiel AcostaPotassium [Moles/Vol]4.1 mmol/LNormal3.5-5.1The [facility] Comment on above:Performed By: #### CMP #### [facility] [address] [address] [address] Yadiel AcostaProtein [Mass/Vol]7.0 g/dLNormal6.4-8.2The [facility] Comment on above:Performed By: #### CMP #### [facility] [address] [place] [address] Dr. Yadiel Tovardium [Moles/Vol]140 mmol/HTuccbl873-989HlfProtestant Deaconess Hospital Comment on above:Performed By: #### CMP #### [facility] [address] [place] [address] Dr. Yadiel Kemp nitrogen [Mass/Vol]22.0 mg/dLCritically high7.0-18.0[facility]acon[facility] HospitalComment on above:Performed By: #### CMP #### [facility] [address] [place] [address] Dr. Yadiel Kemp nitrogen/Creatinine [Mass ratio]22.4 mg/mgNoSalem City HospitalComment on above:Performed By: #### CMP #### [facility] [address] [address] [address] Yadiel Poon MICROSCOPIC ONLYon [id number] SEENNormalNONE SEENProtestant Deaconess HospitalComment on above:Performed By: #### ERUMAYELA SamanoICRO #### [facility] [address] [address] [address] Yilan ChangBacteria identified Cx Nom (U)NOT INDICATEDNormalThSt. Mary's Medical CenterComment on above:Performed By: #### ERUR, UMICRO #### [facility] [address] [place] [address] Dr. Yadiel Camara SEENNormalNONE SEENBellevue Hospital on above:Performed By: #### FRENCH, UMICRO #### [facility] [address] [place] [address] Dr. Yadiel Arguelles LM Nom (Urine sed)NONE SEENNormalNONE SEENProtestant Deaconess HospitalComc.[facility] on above:Performed By: #### FRENCH UMICRO #### [facility] [address] [place] [address] Dr. Yadiel Tovarthelial cells LM Ql (Urine sed)RARENormalNONE SEEN /RAREThe [facility]burgComc.[facility] on above:Performed By: #### FRENCH UMICRO #### [facility] [address] [place] [address] Dr. Yadiel Emerson SEENNormalNONE SEENProtestant Deaconess HospitalComc.[facility] on above:Performed By: #### FRENCH UMICRO #### [facility] [address] [place] [address] Dr. Yadiel MartinezUnzalKCL0-0Kzippu3-5ZmuBellevue Hospital on above:Performed By: #### FRENCH UMICRO #### [facility] [address] [place] [address] Dr. Yadiel Roe SEENNormalNONE SEENProtestant Deaconess HospitalComc.[facility] on above: Performed By: #### ERUSelwyn, UMICRO #### [facility] [address] [place] [address] Dr. Yadiel AcostaC-Reactive Proteinon [id number] IV<0.3NormalNorthern Midstate Medical CenterComment on above:Performed By: #### CBCAD, ESR, CRP, CMP #### [facility] [address] [place], [place] [id number] Blood Count with Auto Diffon [id number] (Bld) [#/Vol]0.04 10*3/uLNormal0.00-0.20[facility] SpecialistComment on above:Performed By: #### CBCAD, ESR, CRP, CMP #### [facility] [address], [place] [id number]/100 WBC (Bld)0.7 %[facility] SpecialistComment on above:Performed By: #### CBCAD, ESR, CRP, CMP #### [facility] [address], [place] [id number] (Bld) [#/Vol]0.13 10*3/uLNormal0.02-0.50Prom[facility] Defiance Regional HospitalComment on above:Performed By: #### CBCAD, ESR, CRP, CMP #### [facility] [address], [place] [id number]/100 WBC (Bld)2.2 %EdgartownNoAdena Fayette [facility] Center SpecialistComment on above:Performed By: #### CBCAD, ESR, CRP, CMP #### [facility] [address], [place] [id number] distribution width (RBC) [Ratio]13.1 %Normal 11.0-15.0[facility] SpecialistComment on above:Performed By: #### CBCAD, ESR, CRP, CMP #### [facility] [address], [place] [id number] (Bld) [Volume fraction]39.5 %Ewbdwo74.0-47.0 [facility] SpecialistComment on above:Performed By: #### CBCAD, ESR, CRP, CMP #### [facility] [address], [place] [id number] (Bld) [Mass/Vol]12.8 g/bMTomnvl16.6-15.5[facility] SpecialistComment on above:Performed By: #### CBCAD, ESR, CRP, CMP #### [facility] [address], [place] [id number] (Bld) [#/Vol]1.6 10*3/uLNormal0.9-3.9NoAdena Fayette Medical Center SpecialistComment on above:Performed By: #### CBCAD, ESR, CRP, CMP #### [facility] [address], [place] [id number]/100 WBC (Bld)27.4 %NormalNoAdena Fayette Medical Center SpecialistComment on above:Performed By: #### CBCAD, ESR, CRP, CMP #### [facility] [address], [place] [id number] (RBC) [Entitic mass]29.8 sjPyqool56.0-33.0NoAdena Fayette Medical Center SpecialistComment on above:Performed By: #### CBCAD, ESR, CRP, CMP #### [facility] [address], [place] [id number] (RBC) [Mass/Vol]32.4 g/eCBvtazn83.0-36.0NoAdena Fayette Medical Center SpecialistComment on above:Performed By: #### CBCAD, ESR, CRP, CMP #### [facility] [address], [place] [id number] (RBC) [Entitic vol]92 rGRijxww12-667Hysgxkfl [place] [facility] SpecialistComment on above:Performed By: #### CBCAD, ESR, CRP, CMP #### [facility] [address], [place] [id number] (Bld) [#/Vol]0.5 10*3/uLNormal0.2-0.9NoAdena Fayette Medical Center SpecialistComment on above:Performed By: #### CBCAD, ESR, CRP, CMP #### [facility] [address], [place] [id number]/100 WBC (Bld)8.1 %NormalNoAdena Fayette Medical Center SpecialistComment on above:Performed By: #### CBCAD, ESR, CRP, CMP #### [facility] [address], [place] [id number] (Bld) [#/Vol]3.6 10*3/uLNormal1.5-7.8NortSt. Charles Hospital SpecialistComment on above:Performed By: #### CBCAD, ESR, CRP, CMP #### [facility] [address], [place] [id number]/100 WBC (Bld)61.4 %NormalNortSt. Charles Hospital SpecialistComment on above:Performed By: #### CBCAD, ESR, CRP, CMP #### [facility] [address], [place] [id number] mean volume (Bld) [Entitic vol]10.40 fLNormal 7.50-12.50NortSt. Charles Hospital SpecialistComment on above:Performed By: #### CBCAD, ESR, CRP, CMP #### [facility] [address], [place] [id number] (Bld) [#/Vol]274 10*3/lPJsoufr706-331Wumikicu [place] [facility] SpecialistComment on above:Performed By: #### CBCAD, ESR, CRP, CMP #### [facility] [address], [place] [id number] (Bld) [#/Vol]4.30 10*6/uLNormal3.90-5.20NortSt. Charles Hospital SpecialistComment on above:Performed By: #### CBCAD, ESR, CRP, CMP #### [facility] [address], [place] [id number]-IE78.2 bEAtzhuz49.0-50.0NortSt. Charles HospitalSenior Research Project Manager Comment on above:Performed By: #### CBCAD, ESR, CRP, CMP #### [facility] [address], [place] [id number] (Bld) [#/Vol]5.9 10*3/uLNormal3.8-11.0NortSt. Charles Hospital SpecialistComment on above:Performed By: #### CBCAD, ESR, CRP, CMP #### [facility] [address], [place] [id number] Metabolic Panelon [id number] [Mass/Vol] 4.4 g/dLNormal3.6-5.1NortherSt. Elizabeth Hospital SpecialistComment on above:Performed By: #### CBCAD, ESR, CRP, CMP #### [facility] [address], [place] [id number]/Globulin [Mass ratio]1.8 {ratio}Normal1.0-2.5NoAdena Fayette Medical Center SpecialistComment on above:Performed By: #### CBCAD, ESR, CRP, CMP #### [facility] [address], [place] [id number] [Catalytic activity/Vol]77 U/WTderzs31-740ZvmgqpibPremier Health Atrium Medical CenterComment on above:Performed By: #### CBCAD, ESR, CRP, CMP #### [facility] [address], [place] [id number] [Catalytic activity/Vol]15 U/LNormal6-33NoAdena Fayette Medical Center SpecialistComment on above:Result Comment: 02/07/2021 Female reference range changed.Performed By: #### CBCAD, ESR, CRP, CMP #### [facility] [address], [place] [id number] gap [Moles/Vol]16 mmol/LAtpuwk00-63Apixlcoz [place] [facility] SpecialistComment on above:Result Comment: Effective 03/15/2019 reference range changed.Performed By: #### CBCAD, ESR, CRP, CMP #### [facility] [address], [place] [id number] [Catalytic activity/Vol]21 U/LNormal9-34NoAdena Fayette Medical Center SpecialistComment on above:Performed By: #### CBCAD, ESR, CRP, CMP #### [facility] [address], [place] [id number] [Mass/Vol]0.48 mg/dLNormal0.30-1.20NoAdena Fayette Medical Center SpecialistComment on above:Performed By: #### CBCAD, ESR, CRP, CMP #### [facility] [address], [place] [id number]/CREA16 RatioNormal6-22NortMemorial [facility] Senior Research Project Manager Comment on above:Performed By: #### CBCAD, ESR, CRP, CMP #### [facility] [address], [place] [id number] [Mass/Vol]9.3 mg/dLNormal8.6-10.2[facility] SpecialistComment on above:Performed By: #### CBCAD, ESR, CRP, CMP #### [facility] [address], [place] [id number] [Moles/Vol]103 mmol/NTwjbam08-633Eibnvsxn [place] [facility] SpecialistComment on above:Performed By: #### CBCAD, ESR, CRP, CMP #### [facility] [address], [place] [id number] [Moles/Vol]27 mmol/RNfzntj87-70Hhvxatek [place] [facility] SpecialistComment on above:Performed By: #### CBCAD, ESR, CRP, CMP #### [facility] [address], [place] [id number] [Mass/Vol]1.2 mg/dLNormal0.6-1.4Nortdignity health east valley rehabilitation hospitaln [place] [facility] SpecialistComment on above:Performed By: #### CBCAD, ESR, CRP, CMP #### [facility] [address], [place] [id number] mL/min/1.86y6Dut>60NortMemorial [facility] Senior Research Project Manager Comment on above:Performed By: #### CBCAD, ESR, CRP, CMP #### [facility] [address], [place] [id number] mL/min/1.76s6Gzh>60NortMemorial [facility] Senior Research Project Manager Comment on above:Performed By: #### CBCAD, ESR, CRP, CMP #### [facility] [address], [place] [id number] (S) [Mass/Vol]2.4 g/dLNormal1.9-3.7Nortdignity health east valley rehabilitation hospitaln [place] [facility] SpecialistComment on above:Performed By: #### CBCAD, ESR, CRP, CMP #### [facility] [address], [place] [id number] [Mass/Vol]112 mg/gDTeid84-79Ugmuksfa [place] [facility] SpecialistComment on above:Result Comment: For FASTING Glucose --- ADA reference ranges: Normal 65-99 mg/dl Prediabetes 100-125 Diabetes >/= 126Performed By: #### CBCAD, ESR, CRP, CMP #### [facility] [address], [place] [id number] [Moles/Vol]3.5 mmol/LNormal3.5-5.5NortSt. Charles Hospital SpecialistComment on above:Performed By: #### CBCAD, ESR, CRP, CMP #### [facility] [address], [place] [id number] [Mass/Vol]6.8 g/dLNormal6.1-8.1[facility] SpecialistComment on above:Performed By: #### CBCAD, ESR, CRP, CMP #### [facility] [address], [place] [id number] [Moles/Vol]142 mmol/MGughuz510-768Wambwvtb [place] [facility] SpecialistComment on above:Performed By: #### CBCAD, ESR, CRP, CMP #### [facility] [address], [place] [id number] nitrogen [Mass/Vol]20 mg/dLNormal7-25NortSt. Charles Hospital SpecialistComment on above:Performed By: #### CBCAD, ESR, CRP, CMP #### [facility] [address], [place] [id number] - REMI MULTIPLEX W/ REFLEX TO 11 ANTIBODY CASCADEon [id number](R) SCREENNegativeNormalNEGATIVENortSt. Charles Hospital SpecialistComment on above:Order Comment: [facility] performed at: [facility], [facility], [address] [facility], [address] [place] [address], [place], [address], Workers Compensation Claims Assistant: Joao Merati MD [facility] Collection Date/Time: [facility] Results Received Date/Time: [facility] Reported Date/Time: [id number] Comment: A negative REMI Multiplex, with Reflex to 11 Antibody [place] indicates the absence of detectable antibodies to component analytes consisting of double stranded DNA (dsDNA), chromatin, ribonucleoprotein (DRYWALL INSTALLER), Leal/DRYWALL INSTALLER (Sm/DRYWALL INSTALLER), Leal (Sm), SS-A, SS-B, Radha-1, centromere B, Scl-70 and ribosomal P. A negative result should be interpreted in the context of the clinical and laboratory findings and does not rule out autoimmune disease characterized by other autoantibody specificities such as rheumatoid arthritis, autoimmune hepatitis, primary biliary cirrhosis, autoimmune thyroiditis, Millard's disease, pernicious anemia, autoimmune neuropathies, vasculitis, celiac disease, and bullous disease. For additional information, please refer to http://education.Stereomood/faq/ANV016 (This link is being provided for informational/ educational purposes only.)Performed By: #### [id number] #### [facility] [address] [place], [place] [address]HSP Sedimentation Rateon [id number] (Bld) [Velocity]23.00 mm/h High0.00-20.00[facility] SpecialistComment on above:Performed By: #### CBCAD, ESR, CRP, CMP #### [facility] [address] [place], [place] [id number] Vital Signs Date TimeVital SignValuePerforming [id number] 12:52-0400Body .5 cmGeorge YunLifeline Venturesjose DO Work Phone: [facility] Dgnpmdbkiw54-48-1989 12:52-0400Body mass index (BMI) [Ratio]27.29 kg/r7Hxcvoa YunLifeline Venturesjose DO Work Phone: [facility] Gqglcgfhen26-54-9888 12:52-0400Body temperature 97.11 [degF]Nico Pepper DO Work Phone: [facility] Hrhqlrhuyl36-95-8941 12:52-0400Body ithbok52.68 kgGeorge Yunnuris DO Work Phone: noSaint Luke's Health SystemMsminaovko45-14-1663 12:52-0400Diastolic blood enxfnlpg02 mm[Hg]Nico Pepper DO Work Phone: [facility] HospitalUoiomrelis86-14-5121 12:52-0400Heart rate54 /min Nico Pepper DO Work Phone: [facility] HospitalXjazigocxp69-49-3482 12:52-2209GfS9% (BldA) [Mass fraction]96 %Nico Pepper DO Work Phone: [facility] HospitalCcryzkumaa61-68-5015 12:52-0400Systolic blood jibnfbih501 mm[Hg]Nico Pepper DO Work Phone: 1(651)876-[address] [place], [place] [address]Wengouakss00-38-8565 09:43-0400Body mass index (BMI) [Ratio]27.8 kg/r4YhzztvWinston Hameed MD Work Phone: 1(936)[facility] [place], [place] [address]Xjmfupuhvs12-63-3338 09:43-0400Body puphop92.95 kgWinston Hameed MD Work Phone: 1(028)[facility] [place], [place] [address]Rxqsfzfyjp45-68-9257 09:43-0400Diastolic blood uebumzcn62 mm[Hg]Winston Hameed MD Work Phone: 1(871)[facility] [place], [place] [address]Faecsdfrrm13-55-5704 09:43-0400Systolic blood ylywhrpg065 mm[Hg]Winston Hameed MD Work Phone: 1(170)[facility] [place], [place] [address]Uaxzsngspa01-96-9750 11:15-0400Body mass index (BMI) [Ratio]27.62 kg/n8AqiffcWinston Hameed MD Work Phone: 1(591)[facility] [place], [place] [address]Fckfhhxzas53-26-0964 11:15-0400Body evqovx53.49 kgWinston Hameed MD Work Phone: 1(297)[facility] [place], [place] [address]Nvbntvjetc29-95-8214 11:15-0400Diastolic blood mm[Hg]Winston Hameed MD Work Phone: 1(432)[facility] [place], [place] [address]Msioewdvef76-21-0234 11:15-0400Systolic blood zvqzzgos194 mm[Hg]Winston Hameed MD Work Phone: 1(713)[facility] [place], [place] [address]Xgymihrpjp33-68-1881 18:32-0400Diastolic blood nfazktge05 mm[Hg]Juancarlos Pepper DO Work Phone: 1(283)[address] [place], [place] 9975304-05-2025 18:32-0400 Heart rate65 /Madisyn. Eloisa Pepper DO Work Phone: 1(716)[address] [place], [place] 9975304-05-2025 18:32-0400 SaO2% (BldA) [Mass fraction]99 %Juancarlos Pepper DO Work Phone: 1(013)[address] [place], [place] 9975304-05-2025 18:32-0400 Systolic blood iiolamno377 mm[Hg]Juancarlos Pepper DO Work Phone: 1(327)[address] [place], [place] 9975304-05-2025 17:47-0400 Respiratory rate18 /MadisynJerman Pepper DO Work Phone: 1(185)[address] [place], [place] 9975304-05-2025 17:04-0400 Body hxejub654.48 cmG. Eloisa Pepper DO Work Phone: 1(926)[address] [place], [place] 9975304-05-2025 17:04-0400 Body fsyzqrvpqti31.5 [degF]Juancarlos Pepper DO Work Phone: 1(957)[address] [place], [place] 9975304-05-2025 17:04-0400 Body viuiro87.77 kgGJerman Pepper DO Work Phone: 1(928)[address] [place], [place] 9975303-24-2025 14:13-0400 Body mass index (BMI) [Ratio]27.07 kg/y4Wmufeegwyn Pepper DO Work Phone: 1(912)[address] [place], [place] 5123903-24-2025 14:13-0400Body temperature 96.91 [degF]Nico Pepper DO Work Phone: 1(052)[facility] [place], [place] [address]Lnainpnjyb40-87-4236 14:13-0400Body ktovqu06.13 kgGecassandra Pepper DO Work Phone: 1(275)[facility] [place], [place] [address]Khwpykbwot93-34-7545 14:13-0400Diastolic blood jpjpeubd53 mm[Hg]Nico Pepper DO Work Phone: 1(314)[facility] [place], [place] [address]Zuytswecab74-17-0356 14:13-0400Heart rate50 /min Nico Pepper DO Work Phone: 1(410)[facility] [place], [place] [address]Yfobptomvf16-28-7626 14:13-4325SqE6% (BldA) [Mass fraction]99 %Nico Pepper DO Work Phone: 1(013)[facility] [place], [place] [address]Cncnpowyzn73-09-2206 14:13-0400Systolic blood qhhucerh622 mm[Hg]Nico Pepper DO Work Phone: 1(976)[address] [place], [place] 5123903-18-2025 19:15-0400Diastolic blood ifossjzw52 mm[Hg]Juancarlos Pepper DO Work Phone: 1(717)[address] [place], [place] 9975303-18-2025 19:15-0400 Heart rate60 /Madisyn. Eloisa Pepper DO Work Phone: 1(564)[address] [place], [place] 9975303-18-2025 19:15-0400 Respiratory rate16 /Madisyn. Eloisa Pepper DO Work Phone: 1(921)[address] [place], [place] 9975303-18-2025 19:15-0400 SaO2% (BldA) [Mass fraction]99 %Juancarlos Pepper DO Work Phone: 1(560)[address] [place], [place] 9975303-18-2025 19:15-0400 Systolic blood mm[Hg]Juancarlos Pepper DO Work Phone: 1(631)[address] [place], [place] 9975303-18-2025 14:15-0400 Body olghoi177.48 cmG. Eloisa Pepper DO Work Phone: 1(687)[address] [place], [place] 9975303-18-2025 14:15-0400 Body pgqqtmboqmy70.4 [degF]Juancarlos Pepper DO Work Phone: 1(618)[address] [place], [place] 9975303-18-2025 14:15-0400 Body ovfskc06.9 kgGJerman Pepper DO Work Phone: 1(682)[address] [place], [place] 9975301-28-2025 13:16-0500 Body qvktut184.48 [facility]Mag[facility]-28-2025 13:16-0500Body mass index (BMI) [Ratio]27.1 kg/m7KlywxdquaMagruder Memorial Hospital01-28-2025 13:16-0500Body akbfliaiqfr73.7 [degF][facility]01-28-2025 13:16-0500Body .24 kgMagruder [facility] Hospital01-28-2025 13:16-0500Diastolic blood mqtgllio38 mm[Hg][facility] 04-06-2024 13:16-0500Heart rate60 /[facility] 04-06-2024 13:16-0500Respiratory rate14 /[facility] 04-06-2024 13:16-0426EsE6% (BldA) [Mass fraction]98 %[facility]01-28-2025 13:16-0500Systolic blood iktkscnc858 mm[Hg][facility]10-14-2024 11:24-0400Body tiuttd273.5 Mily Vicente PA Work Phone: [phone] HospitalCejxnpdeer49-90-7446 11:24-0400Body mass index (BMI) [Ratio]27.07 kg/m2Roxana Vicente PA Work Phone: [phone] HospitalKdyfeuyero24-19-9766 11:24-0400Body temperature 97.3 [degF]Roxana Vicente PA Work Phone: [facility] HospitalAujtzaoqlj50-26-7496 11:24-0400Body fjeehy61.13 kgRoxana Vicente PA Work Phone: [phone])725[facility] HospitalWsqhqyrgls72-32-8426 11:24-0400Diastolic blood vdzlcsul03 mm[Hg]Roxana Vicente PA Work Phone: 1([phone] HospitalKjwoxlpwvh96-24-3672 11:24-0400Heart rate71 /min Roxana Vicente PA Work Phone: [phone] Revolution TechnologiesSaint Luke's Health SystemVdcgwchypn46-37-7628 11:24-9109IzP9% (BldA) [Mass fraction]98 %Roxana Vicente PA Work Phone: Restaurant Revolution TechnologiesSaint Luke's Health SystemNlcaoknfzm77-23-3349 11:24-0400Systolic blood bbiayunm536 mm[Hg]Roxana Vicente PA Work Phone: Restaurant Revolution TechnologiesSaint Luke's Health SystemSyjfriiuab24-10-8069 11:24-0400Body vxjuyb422.5 cmSeason Maye ENGINEERING ASSOCIATE.CALENDER MACHINE OPERATOR Work Phone: [phone] Nxklee06-94-8536 11:24-0400Body mass index (BMI) [Ratio]25.77 kg/f0Dxovza Maye COLBYN.CALENDER MACHINE OPERATOR Work Phone: [phone]()[phone] Hospital LimaRrqblf02-15-7243 11:24-0400Body temperature 97.81 [degF] Maye ENGINEERING ASSOCIATE.CALENDER MACHINE OPERATOR Work Phone: [phone]()[phone] Cderhk54-39-6103 11:24-0400Body npffiw20.91 kgSe Maye COLBYN.CALENDER MACHINE OPERATOR Work Phone: [phone]()[phone] Efhywd82-52-4131 11:24-0400Diastolic blood fpqtazuj42 mm[Hg]Season Maye COLBYN.CALENDER MACHINE OPERATOR Work Phone: [phone]()[phone] Mbtina07-06-0340 11:24-0400Heart rate53 /min Season Maye COLBYN.CALENDER MACHINE OPERATOR Work Phone: [phone]()[phone] Ytlywf35-73-0218 11:24-5590TcX5% (BldA) [Mass fraction]100 % Maye ENGINEERING ASSOCIATE.CALENDER MACHINE OPERATOR Work Phone: [phone]()[phone] Gvpawr00-05-7014 11:24-0400Systolic blood ichoatfg948 mm[Hg]Season Maye ENGINEERING ASSOCIATE.CALENDER MACHINE OPERATOR Work Phone: [phone] Eiohlm56-96-3994 09:40-0400Diastolic blood anwumzcn59 mm[Hg]Nicanor Ferris MD Work Phone: [phone]()[phone] Tccjjr84-88-9474 09:40-0400Heart rate47 /min Nicanor Ferris MD Work Phone: [phone] Iseamr32-20-6568 09:40-0400Respiratory rate 18 /minSvannessa Ferris MD Work Phone: [phone] Mjajre73-79-6287 09:40-3803SyH1% (BldA) [Mass fraction]100 %Nicanor Ferris MD Work Phone: [place] [address]-24-2024 09:40-0400Systolic blood euywuniz73 mm[Hg]Nicanor Ferris MD Work Phone: [place] [address]-24-2024 08:21-0400Body yvyzzy286.5 Lakisha Ferris MD Work Phone: [place] [address]-24-2024 08:21-0400Body mass index (BMI) [Ratio]25.79 kg/m2Nicanor Ferris MD Work Phone: [place] [address]-24-2024 08:21-0400Body temperature 96.8 [degF]Nicanor Ferris MD Work Phone: [place] [address]-24-2024 08:21-0400Body aadflp93.96 kgNicanor Ferris MD Work Phone: [place] [address]-17-2024 14:31-0400Body qdqaop492.5 Lakisha Ferris MD Work Phone: [place] [address]-17-2024 14:31-0400Body mass index (BMI) [Ratio]25.57 kg/m2Nicanor Ferris MD Work Phone: [place] [address]-17-2024 14:31-0400Body temperature 97.39 [degF]Nicanor Ferris MD Work Phone: [place] [address]-17-2024 14:31-0400Body vdeusy54.41 kgNicanor Ferris MD Work Phone: [place] [address]-17-2024 14:31-0400Diastolic blood coqphfhx87 mm[Hg]Nicanor Ferris MD Work Phone: [place] [address]-17-2024 14:31-0400Heart rate58 /min Nicanor Ferris MD Work Phone: [phone] [address]-17-2024 14:31-0400Respiratory rate 14 /minSvannessa Ferris MD Work Phone: [place] [address]-17-2024 14:31-7939CrD7% (BldA) [Mass fraction]98 %Nicanor Ferris MD Work Phone: [place] Pztslt96-69-9410 14:31-0400Systolic blood olbawvrd07 mm[Hg]Nicanor Ferris MD Work Phone: [place] Nqpfem18-79-7002 10:41-0500Body temperature 96.98 [degF]Malina Locoz 821-6025Jpysoz-[facility]Community [facility]01-29-2024 10:41-0500Diastolic blood zdpehtnp71 mm[Hg]Malina Castaneda 120-0955Stgjbu-IvegpCommunity [facility] Hospital01-29-2024 10:41-0500Heart rate52 /minBeth Tonya 319-2482Dudkil-KzyaeCommunity [facility] Hospital01-29-2024 10:41-0500Systolic blood lrnpoudw82 mm[Hg]Malina Locoz 622-8617Iynumh-OmufgCommunity Memorial Hospital01-21-2024 07:00-0500Diastolic blood cfxopkxt91 mm[Hg]DO Juancarlos Pepper Work Phone: 3(310)891-[address] [place], [place] [address]405801-21-2024 07:00-0500 Heart rate20 /minDO Juancarlos Pepper Work Phone: 8(617)630-[address] [place], [place] 8405801-21-2024 07:00-0500 Respiratory rate20 /AnilO Juancarlos Pepper Work Phone: 4(691)090-[address] [place], [place] 8405801-21-2024 07:00-0500 SaO2% (BldA) [Mass fraction]96 %DO Juancarlos Pepper Work Phone: 9(125)881-[address] [place], [place] 8405801-21-2024 07:00-0500 Systolic blood nvtjxtga780 mm[Hg]DO Juancarlos Pepper Work Phone: 1(616)365-[address] [place], [place] [address]405801-21-2024 04:21-0500 Body dqkday247.48 cmDO Juancarlos Pepper Work Phone: 1(351)[address] [place], [place] 9975301-21-2024 04:21-0500 Body stwngpgpmto69.1 [degF]DO Juancarlos Pepper Work Phone: 1(686)[address] [place], [place] 9975301-21-2024 04:21-0500 Body .5 kgDO Juancarlos Pepper Work Phone: 1(418)[address] [place], [place] 9975301-15-2024 15:00-0500 Diastolic blood vgeyviui86 mm[Hg]DO Juancarlos Pepper Work Phone: 1(601)[address] [place], [place] 9975301-15-2024 15:00-0500 Heart rate60 /minDO Juancarlos Pepper Work Phone: 1(315)[address] [place], [place] 9975301-15-2024 15:00-0500 Respiratory rate16 /AnilO Juancarlos Pepper Work Phone: 3(051)[address] [place], [place] 9975301-15-2024 15:00-0500 SaO2% (BldA) [Mass fraction]96 %DO Juancarlos Pepper Work Phone: 1(505)[address] [place], [place] 9975301-15-2024 15:00-0500 Systolic blood xwaaisel713 mm[Hg]DO Juancarlos Pepper Work Phone: 1(182)[address] [place], [place] 9975301-15-2024 12:27-0500 Body xakjsj122.48 cmDO Juancarlos Pepper Work Phone: 1(845)[address] [place], [place] 9975301-15-2024 12:27-0500 Body wprgqsdsuwa59.9 [degF]DO Juancarlos Pepper Work Phone: 1(544)[address] [place], [place] 9975301-15-2024 12:27-0500 Body hrftol30.1 kgDO Juancarlos Pepper Work Phone: 4(689)[address] [place], [place] 9975302-02-2023 14:33-0500 Body .5 cmLauren Krishnan MD Work Phone: [facility]02-02-2023 14:33-0500Body mass index (BMI) [Ratio]23.23 kg/w4FtlvjfLauren Krishnan MD Work Phone: [employer]02-02-2023 14:33-0500Body .61 kgLauren Krishnan MD Work Phone: [facility] [facility]ENTERSividon DiagnosticsJBOUCK54-45-4759 14:30-0500Diastolic blood lwgogcfo12 mm[Hg]Lauren Krishnan MD Work Phone: [facility] HOSPITALNNURHW63-49-5437 14:30-4786VkS9% (BldA) [Mass fraction]98 %Lauren Krishnan MD Work Phone: [facility] [facility]ENTERSividon DiagnosticsTDQWUA33-55-0993 14:30-0500Systolic blood mm[Hg]Lauren Krishnan MD Work Phone: [facility] HOSPITALDUIDBG29-47-4000 14:25-0500Body dzputfbsbxv25.4 [degF]Lauren Krishnan MD Work Phone: [facility] [facility] [facility] HOSPITALQPVQNL29-40-6398 14:25-0500Heart rate85 /Ro Krishnan MD Work Phone: [facility] [employer]02-02-2023 14:25-0500 Respiratory rate18 /minLauren Krishnan MD Work Phone: [facility] [facility] HOSPITALLFIZEC12-18-5245 17:26-0400BP Jlhbbbeoi39 mm[Hg]Salim HayekMG-[facility] [address] Work Phone: 1(154) 558-801807-17-2020 17:26-0400BP Jjbztklu564 mm[Hg]Salim Rolando [facility] [address] Work Phone: 1(508) 153-635007-17-2020 17:26-0400Pulse (Heart Rate)90 /minSalim HayekMG-[facility] [address] Work Phone: 1(422) 495-518507-17-2020 17:26-0400Respiratory Rate16 /minSalim HayekMG-[facility] [address] Work Phone: 1(849) 311-620407-17-2020 17:26-33447 Jackelin Marshall[facility] [address] Work Phone: comment on above:Pain Scale Encounters Encounter DateEncounter TypeCare ProviderFacilityStart: 12-21-2024 End: 94-01-1236veppmmskhqIETVSQMercer County Community Hospitaltart: 12-13-2024 End: 05-20-0904Fzjyjs flowsheetNico R Yunftan DO Work Phone: noms [facility] 230Start: 12-13-2024 End: 12-31-9304Rvhwcw flowsheetGeishage R Kaftan DO Work Phone: noms [facility] 230Start: 12-13-2024 End: 30-27-4261Qydhea outpatient visit 15 minutesGeorgwyn R Yunftjose DO Work Phone: noms [facility] 230Comment on above: Complex regional pain syndrome type 1, affecting unspecified site (Primary Dx); Headache; Disorder of intervertebral disc of lumbar spine; Chronic pain syndrome; NeuropathyStart: 12-13-2024 End: 10-61-9771uvgwpmrjljLUBEPW R KAFTANNot AvailableStart: 11-02-2024 End: 90-24-8216qohcpxmvolCVAXYDMercer County Community Hospitaltart: 10-06-2024 End: 09-31-9163UrajqjBuvfuKian Smith LPN Work Phone: noms [facility] 230Comment on above: Primary hypertension ; Other chronic pain; Bipolar affective disorder, remission status unspecified (HCC); Complex regional pain syndrome type 1, affecting unspecified site; Disorder of intervertebral disc of lumbar spine; Chronic pain syndrome; Neuropathy; Headache; Nonintractable headache, unspecified chronicity pattern, unspecified headache type; Unspecified thoracic, thoracolumbar and lumbosacral intervertebral disc disorder Start: 09-20-2024 End: 95-24-1926zjaxgnnbhjKHOCHRMercer County Community Hospitaltart: 09-13-2024 End: 10-17-8093Eidjokcnr Result EncounterGeneric External Data ProviderNOMS External Department UnsolicitedStart: 09-13-2024 End: 39-25-5108Qexpjunfh Result EncounterGeneric External Data ProviderNOIL External Department UnsolicitedStart: 09-07-2024 End: 07-77-2556QfcdtiGgaexKian Smith LPN Work Phone: noms [facility] 230Comment on above:Complex regional pain syndrome type 1, affecting unspecified site; Disorder of intervertebral disc of lumbar spine; Chronic pain syndrome; NeuropathyStart: 08-16-2024 End: 89-26-0571Bmgnyo OnlyWinston Hameed MD Work Phone: noms External Department UnsolicitedStart: 08-16-2024 ambulatoryFacility:EU [place]uskyStart: 08-16-2024 End: 35-77-0966Jltuiq outpatient new 20 minutesWinston Hameed MD Work Phone: noms [facility] OBComment on above:Sensation as if bladder still full (Primary Dx); Hormone imbalance; Urinary incontinence, unspecified type; Vaginal atrophy; Other urinary incontinence; Yeast infectionStart: 08-16-2024 End: 17-35-7996iihuiscrbpXVZEOO P JONESNot AvailableStart: 08-09-2024 End: 90-67-6039uscugbinmmFzheojz Vytautas Gieditis Facility:PM [place] Start: 07-20-2024 End: 10-14-8305OokftbZrbllp R Kaftan DO Work Phone: noms [facility] FM 230Comment on above:Complex regional pain syndrome type 1, affecting unspecified site; Disorder of intervertebral disc of lumbar spine; Chronic pain syndrome; NeuropathyStart: 07-19-2024 End: 92-68-4476Ngayage encounter statusWinston Hameed MD Work Phone: noms HealthcareStart: 07-19-2024 End: 89-50-8277Mzsmdzqn preventive med est patient 40-64yrsPchanel Hameed MD Work Phone: noms [facility] OBComment on above:Screening mammogram, encounter for (Primary Dx); Hormone imbalance; Urinary incontinence, unspecified type; Encounter for gynecological examination without abnormal finding; Encounter for screening for cervical cancer; Vaginal atrophy; Other urinary incontinenceStart: 07-19-2024 End: 80-89-5559iybrjbjoprQUIOMR P JONESNot AvailableStart: 07-13-2024 End: 04-56-8915HcercqUqijqg R Kaftan DO Work Phone: [facility] FM 230Comment on above:Unspecified thoracic, thoracolumbar and lumbosacral intervertebral disc disorderStart: 06-14-2024 End: 78-93-5646NusynuFvgxue R Kaftan DO Work Phone: [facility] 230Comment on above:Bipolar affective disorder, remission status unspecified ([facility])Start: 06-12-2024 End: 44-31-4709Zlxhcnmdp department patient visitG. Eloisa Yunnuris DO Work Phone: [facility]-Emer[facility] Work Phone: Start: 06-07-2024 End: 66-62-1713qvxyjmklaoDdxnpqw Vytautas Giedraitis MDFacility:PM [place] Start: 05-31-2024 End: 94-80-9930Ezvmih outpatient visit 15 minutesGeorgwyn Pepper DO Work Phone: [facility] 230Comment on above:Dizzy spells (Primary Dx); Bipolar disorder, unspecified ([facility]); Chronic kidney disease, stage 3b (HCC) ([facility]); Complex regional pain syndrome type 1, affecting unspecified site; Disorder of intervertebral disc of lumbar spine; Chronic pain syndrome; Neuropathy; Acute recurrent maxillary sinusitis; Urinary incontinence, unspecified typeStart: 05-31-2024 End: 09-54-5958vgutqhrrlaNRDFFY R KAFTANNot AvailableStart: 05-31-2024 End: 32-84-4124Hlzilz flowsheetNico Pepper DO Work Phone: [facility] 230Start: 05-31-2024 End: 78-46-7133Agpnbu flowsheetGeorgwyn R Kaftan DO Work Phone: [facility] 230Start: 05-25-2024 End: 11-70-2882Vkrxkcyqq department patient visitG. Eloisa Shantelle DO Work Phone: [facility] Work Phone: Start: 05-05-2024 End: 04-03-4448FgmuxnRsnmmKian Smith LPN Work Phone: [facility] 230Comment on above:Nonintractable headache, unspecified chronicity pattern, unspecified headache typeStart: 05-03-2024 End: 41-99-1521QbgvgbItpbco R Kaftan DO Work Phone: [facility] 230Comment on above:Complex regional pain syndrome type 1, affecting unspecified site; Disorder of intervertebral disc of lumbar spine; Chronic pain syndrome; NeuropathyStart: 04-20-2024 End: 11-87-6030wnrbqgiwbhLSCHUZFort Hamilton Hospitaltart: 04-06-2024 End: 77-49-3730wajtuwaytuLwcaosxheOhioHealth O[facility] Work Phone: Start: 04-06-2024 End: 29-70-1623Ixlupqi encounter procedureSandhills [facility] Work Phone: Start: 04-01-2024 End: 89-74-9613CymjngNyxryc R Kaftan DO Work Phone: [facility] 230Comment on above:Complex regional pain syndrome type 1, affecting unspecified site; Disorder of intervertebral disc of lumbar spine; Chronic pain syndrome; NeuropathyStart: 02-26-2024 End: 38-13-4045PnecbpXyxorv R Kaftan DO Work Phone: [facility] 230Comment on above:Complex regional pain syndrome type 1, affecting unspecified site; Disorder of intervertebral disc of lumbar spine; Chronic pain syndrome; NeuropathyBipolar affective disorder, remission status unspecified (CMS/HCC); Anxiety and depression (CMS/HCC)Start: 01-28-2024 End: 20-33-6391OlmsylDnaahh R Kaftan DO Work Phone: [facility] 230Comment on above:Nonintractable headache, unspecified chronicity pattern, unspecified headache typeStart: 01-25-2024 End: 64-56-0659GohdzaIgopor R Kaftan DO Work Phone: [facility] 230Comment on above:Complex regional pain syndrome type 1, affecting unspecified site; Disorder of intervertebral disc of lumbar spine; Chronic pain syndrome; NeuropathyStart: 12-05-4312qnuhpfyppgULXAORMercer County Community Hospitaltart: 01-08-2024 End: 19-85-2655QudfskYoqsss R Kaftan DO Work Phone: [facility] 230Comment on above:Other chronic pain Start: 01-07-2024 End: 69-23-4187fldqaatbluVRNQFEMercer County Community Hospitaltart: 12-27-2023 End: 92-53-2478JbwepsIjikli R Kaftan DO Work Phone: [facility] 230Comment on above:Complex regional pain syndrome type 1, affecting unspecified site; Disorder of intervertebral disc of lumbar spine; Chronic pain syndrome; NeuropathyStart: 12-22-2023 End: 81-35-6714Hnxxfa Jonas SANTIAGO Work Phone: [phone] 230Start: 12-22-2023 End: 25-06-6770Lwmnpf Jonas SANTIAGO Work Phone: [phone] [facility] 230Start: 12-22-2023 End: 35-02-5449Pqcuvt outpatient visit 25 minutesRoxana SANTIAGO Work Phone: [phone] [facility] 230Comment on above:Bacterial conjunctivitis of both eyes (Primary Dx); URI, acute; Need for vaccination; NephrolithiasisStart: 12-22-2023 End: 19-62-6990mettdiobkbOEVV M MYERSNot AvailableStart: 11-18-2023 End: 97-02-0390IhkovkZzjszl Selwyn Pepper Work Phone: noMS [facility] FM 230Comment on above:Complex regional pain syndrome type 1, affecting unspecified site; Disorder of intervertebral disc of lumbar spine; Chronic pain syndrome; NeuropathyStart: 96-78-9171anyzzcyqzgKejijmffo LyonPulmonary MedicineStart: 67-46-3549smytrdvjchDodpdllhr LyonPulmonary MedicineStart: 07-02-2023 End: 50-33-2822xpkqajssxbRnxcskib Dori KLINE Work Phone: pulmonary MedicineStart: 07-02-2023 End: 62-63-1818Kgqjdcx encounter Gilberto Villavicencio APRN.CNP Work Phone: Thoracic ClinicComment on above:Epigastric abdominal pain (Primary Dx)Start: 07-02-2023 End: 37-31-1610Beptskajlk hospital visit by Emelyn Ferris MD Work Phone: gastroenterologyComment on above:Epigastric abdominal pain [R10.13]Start: 06-25-2023 End: 40-82-2578Kbcgulp encounter Maria Elena Ferris MD Work Phone: Thoracic ClinicComment on above:Epigastric abdominal pain (Primary Dx); S/P Yefri fundoplication (without gastrostomy tube) procedureStart: 06-25-2023 End: 87-48-5235qhimbvzssiUnao Dille RNGastroenterologyStart: 06-25-2023 End: 65-08-8079Famztwrwqw hospital visit by physicianLinda Boss QbRadiologyComment on above:Epigastric abdominal pain [R10.13]Start: 19-66-8478Seijebdyy encounter Nicanor Ferris MD Work Phone: Thoracic ClinicComment on above:Request Outside Medical Records; Received Outside Medical RecordsStart: 37-50-7518Cvwfwpxgm encounterSvannessa Ferris MD Work Phone: Thoracic ClinicComment on above:External Referrals/resourcesStart: 04-28-2023 End: 19-04-0935Donhayg encounter procedureBenegar Ward [facility] Start: 40-72-4093RpdoxyHponiq R Kaftan DO Work Phone: [facility] FM 230Comment on above:Complex regional pain syndrome type 1, affecting unspecified site; Disorder of intervertebral disc of lumbar spine; Chronic pain syndrome; NeuropathyStart: 04-23-2023 End: 54-20-5188Kxwsbkn encounter procedureBenegar Castaneda [facility] Start: 04-16-2023 End: 07-34-1322Tafqgvg encounter procedureXXXX [facility] Start: 04-07-2023 End: 90-10-1889Ggrhhmk encounter procedureBenegar Hopper Tonya [id number]-[facility]okPark[facility] Start: 03-30-2023 End: 82-62-9904Xllwboovo department patient visitDO Juancarlos Pepper Work Phone: [facility] [facility] Work Phone: Start: 03-24-2023 End: 58-90-7972Dqjlddjzn department patient visitDO Juancarlos Pepper Work Phone: [facility] Work Phone: Start: 22-38-3901emcatdzjgaYlJerman Pepper Facility:[id number]: 27-36-1281VJNOJRBR68, Provider: Dc Wu, Status: Pen, Time: 11:00 AMNico Pepper Work Phone: [phone]-Omsgdd [facility] Work Phone: Start: 10-63-0660Dugqrfa encounter procedureGeorgwyn Pepper Work Phone: [facility] Work Phone: Start: 03-66-3320Cmeiuvs encounter procedureGeorge Selwyn Pepper Work Phone: [phone]-Zhinrc [facility] Work Phone: Start: 03-04-9422nrxdwiuokgLk. Nico Amin Shantelle Salas Facility:[id number]: 12-85-9008Onncg EncounterGeorgwyn Selwyn Pepper Work Phone: [phone]-[facility]saavStr[facility] Work Phone: Start: 92-21-0854Hwimq UpdateGecassandra Pepper Work Phone: [phone]-SqkfqtStroud Regional [facility] Work Phone: Start: 82-83-5019Qwtpwlf encounter procedureGecassandra Pepper Work Phone: [phone]-GxznvvStroud [facility] Work Phone: Start: 53-83-7512mznaiqfxtbPa. Nico Eloisa Shantelle Salas Facility:[id number]: 95-51-4971kqiowpicgyJp. Nico Amin Shantelle Salas Facility:[id number]: 13-06-6674Rwhoprx encounter procedureGeorgwyn Selwyn Pepper Work Phone: [phone]-Szsgddcxnk-[place] [address] [place] Work Phone: Start: 89-79-2071Douiaxg encounter procedureGeorge Selwyn Pepper Work Phone: [phone]-Cerfuqyrrg-[place] [address] [place] Work Phone: Start: 76-97-4811pbuxktegxfFy. Madeleine Marshall Facility:AMCStart: 06-13-2022 End: 48-92-5255ccnegmwyvuCL MARIA M LIEBERMAN .Facility:F2Htvwd: 04-11-2022 Emergency department patient visitPATRICIA EULOGIOHighland District Hospitaltart: 04-11-2022 End: 22-24-4085Apbuzitll department patient visitLauren Krishnan MD Work Phone: [facility] EDComment on above: Constipation, unspecified constipation type (Primary Dx); Kidney stoneStart: 25-02-9684qwrayeexejEH SCAR LAZARO .Facility:B4Kwvpr: 12-25-2021 End: 88-80-6249iuunkhfjocXMHMELDH EBERLYFacility:M5Mwobn: 10-31-2021 End: 42-33-7721xuxjgyfncpSONYCIXD EBERLYFacility:S5Bzknj: 10-18-2021 End: 13-92-6255gegjinffqeIL SCAR LAZARO .Facility:S9Aqupi: 10-02-2021 End: 77-62-6621kixwnztpjdFL SCAR LAZARO .Facility:G1Xwfkx: 09-18-2021 End: 46-48-5346ltjemstgohLU BRY BHATIAFacility:R8Obmfb: 09-18-2021 End: 27-41-7723zxuvvciyyzSC KYMBERLY LEALFacility:O2Ciynt: 09-06-2021 End: 02-72-1257stdddpgsudDI Ryan PEPPERFacility:I7Pklpj: 09-01-2021 End: 27-62-9430jnepbdcqxnYL KIRAN SOLANO .Facility:L0Clzlj: 08-21-2021 End: 72-43-1385fhxmesudqrPT G ROBERT KAFTANFacility:T4Zaqdw: 07-10-2021 End: 04-50-2496zijkkxmimcSU G ROBERT KAFTANFacility:H1 Procedures DateProcedureProcedure DetailPerforming ClinicianStart: 24-88-3399YS LUMBAR SPINE WO CONGeneric External Data ProviderStart: 36-57-5101Cvwotpg bacterial quanttative colony count urineWinston Hameed MD Work Phone: start: 97-47-5385QOLVC CULTURE CLEAN CATCH REFLEX Winston Hameed MD Work Phone: start: 95-76-3718WMY, APT HPV,RFX 16/18,45Winston Hameed MD Work Phone: start: 05-96-6814MP of head without contrastG. Eloisa Pepper DO Work Phone: Start: 08-69-8324MJ of head without contrastG. Eloisa Pepper DO Work Phone: Start: 10-68-2088Aejqf chest X-rayG. Eloisa Pepper DO Work Phone: Start: 14-81-9070Ymrfe nucleic acid assayG. Eloisa Pepper DO Work Phone: Start: 39-50-5365Vjdvj dip stick/tablet rgnt non-auto w/o micrscpRyan Ashvin SANTIAGO Work Phone: Start: 78-54-1516Rdzhcuhgpbcasfmaefsozxmzbl transoral diagnosticSvannessa Ferris MD Work Phone: Start: 44-61-8186Ok thorax w/o contrast Mary Ferris MD Work Phone: Start: 74-82-4620Uksikgmc tomography of abdomen and pelvis with contrastDO Juancarlos Pepper Work Phone: Start: 37-63-8371Fciei chest X-rayDO Juancarlos Pepper Work Phone: Start: 88-90-2509Earulxcvmww diagnostic evaluation Nico Pepper Work Phone: Start: 48-46-5057Zf abdomen & pelvis w/o contrast Justin Krishnan MD Work Phone: Start: 62-40-2265Txcnzexizf microscopic onlyGeorge Selwyn Pepper Work Phone: Start: 32-77-9284Wrddq dip stick/tablet rgnt auto w/o microscopyaLuren Krishnan MD Work Phone: Start: 08-33-9741Lfofjjjtthkdi metabolic panelLauren Krishnan MD Work Phone: Start: 50-40-3631YxdcmwyqglrPupohx Jones MD Work Phone: start: 97-23-1422IkydwxajnksZsqofg Kaftan DO Work Phone: Start: 07-31-8730Fnyzzcntchougziosqvvhblkhal electrohydraulic lithotripsy of bezoar in stomachMalina Castaneda Start: 91-10-9971TkyqeuocfbrBiydco Shantelle CADENA Work Phone: Start: 01-23-2018H/O: hysterectomyStatus post hysterectomyGeorge Shantelle CADENA Work Phone: Start: 82-23-6329Bppmtslvpuvgcq shockwave lithotripsy of calculus of kidneyBenegar Castaneda AppendectomyGregg Tonya Arthroscopy of kneeBenegar Castaneda CholecystectomyMalina Castaneda HysterectomyMalina Castaneda Plan of Treatment DateCare ActivityDetailAuthorStart: 83-44-8732Agsgu microalbumin profile DTaP,Tdap,Td Vaccine (2 - Td or Tdap)[facility] Hospitaltart: 85-39-0657Wnnoiaoeq for malignant neoplasm of colonNOMS HealthcareStart: 55-00-2644Uedkescnp for malignant neoplasm of colonNOMS HealthcareStart: 12-13-2024 End: 96-74-4537Hcgxfpb encounter skplfobvg56/06/2025 1:00 PM EDT Office Visit [facility] [address] [place] [address] Nico Pepper DO [address] [place] [address] [facility] 230Comment on above:ArrivedStart: 19-71-1576Xogahtizu vaccination Influenza Vaccine (#1)[facility] HealthcareStart: 08-19-2024 End: 69-25-3364KUY Breast - bilateral screeningBilateral screening mammogram with tomosynthesis Imaging Routine Screening mammogram, encounter forExpected: 08/19/2024, Expires: 11/19/2024[facility] Work Phone: comment on above:Expected: 08/19/2024, Expires: 11/19/2024Start: 08-16-2024 End: 25-22-1686Qvackuc encounter /09/2025 10:45 AM EDT Office Visit [facility] [address] [place] [address] Winston Hameed MD [address] [place] [address] [facility] OBStart: 08-16-2024 End: 31-17-4124Kicslpquzchm / ancillary services qhnxowxpfl67/09/2025 9:30 AM EDT Ancillary Procedure [facility] [address] [place] [address] [facility] OBStart: 07-19-2024 End: 58-10-7487Hmbacfr encounter jdgxkboxd85/12/2025 11:00 AM EDT Office Visit [facility] [address] [place] [address] Winston Hameed MD [address] [place] [address] [facility] OBStart: 24-92-1466GV Controlled (<130/80)BP Controlled (<130/80)[facility] Hospitaltart: 05-31-2024 End: 65-39-6351Oomihlq encounter ogzgrpcjr92/24/2025 2:20 PM EDT Office Visit [facility] [address] [place] [phone] Nico Pepper DO [address] [place] [address] Bipolar disorder, unspecified (CMS/HCC); Chronic kidney disease, stage 3b (HCC) (CMS/HCC)[facility] FM 230Comment on above:Bipolar disorder, unspecified (CMS/HCC); Chronic kidney disease, stage 3b (HCC) (CMS/HCC)Start: 12-22-2023 End: 92-83-2570Wduyojn encounter ifmwrijbu84/14/2024 11:20 AM EDT [facility] [address] [place] [address] Roxana Vicente PA [address] [place] [address] [facility] 230Comment on above:ArrivedStart: 57-63-7327Dwqoojfop vaccinationInfluenza Vaccine (#1)[facility] HealthcareStart: 97-16-9446Qncanqmxci Health ScreeningBehavioral Health ScreeningAdena Health System Start: 00-54-4677Eoblifkjfz AssessmentDepression AssessmentAdena Health System Start: 94-57-3321BZU, Provider: Humphrey Pfeiffer, Status: Pen, Time: 10:15 AMFUV, Provider: Humphrey Pfeiffer, Status: Pen, Time: 10:15 AMB[facility] Work Phone: Start: 58-16-1668OWD, Provider: Humphrey Pfeiffer, Status: Pen, Time: 11:15 AMFUV, Provider: Humphrey Pfeiffer, Status: Pen, Time: 11:15 AM[facility] [place]: Start: 09-21-6526Ttgexrvwx vaccinationFlu vaccine (#1) [facility]: 82-00-5169EQCWA-19 Vaccine (3 - Booster for Felicia series)COVID-19 Vaccine (3 - Booster for Felicia series)[facility]ITALStart: 57-73-0251Aagavhhrj for malignant neoplasm of breastMammogram [facility] HealthcareStart: 46-88-6322Xoaqwzuxq for malignant neoplasm of breast Mammogram ScreeningMcCullough-Hyde Memorial Hospitaltart: 75-31-5266Vcwjjfrm ScreeningDiabetes ScreeningMcCullough-Hyde Memorial Hospitaltart: 12-82-8909Ptkap panelLipid ScreeningMcCullough-Hyde Memorial Hospitaltart: 49-51-7655Xdidrtuyu for malignant neoplasm of colonBON [facility] Hospitalart: 99-35-5729Xgjtd panelLipidsJohn Randolph Medical Centerart: 50-72-1800Ywnfylfea for malignant neoplasm of breastMammogram ScreeningMcCullough-Hyde Memorial Hospitaltart: 67-16-5048Dwfbbhzyk for malignant neoplasm of cervixJohn Randolph Medical Centerart: 08-88-8388Ovixootgl for malignant neoplasm of cervixJohn Randolph Medical Centerart: 37-47-6148UWsI/Tdap/Td vaccine (1 - Tdap)DTaP/Tdap/Td vaccine (1 - Tdap)[facility]ITALStart: 51-32-6423Boxxemtxt B Vaccine (1 of 3 - 19+ 3-dose series)Hepatitis B Vaccine (1 of 3 - 19+ 3-dose series) [facility] Hospitaltart: 30-45-8946Guowpz PCP Team Chronic Disease VisitAnnual PCP Team Chronic Disease VisitMcCullough-Hyde Memorial Hospitaltart: 26-95-4096Fyqqfsrmq C screeningJohn Randolph Medical Centerart: 30-14-3524VEF screeningHIV Screening [facility] Hospitaltart: 50-69-9212OHK screeningHIV screenCENTRA L[facility]BURG [facility] Start: 71-92-8231Kglaxowlae ScreenDepression ScreenCENTRA LYNCHBURG GENERAL [facility]ITAL Start: 60-35-1824Rdvfmclyd for malignant neoplasm of colonUniversity [facility] Bacteria identified in Urine by CultureUrine culture Microbiology Routine Urinary incontinence, unspecified type Vaginal atrophy Other urinary incontinence Sensation as if bladder still full Ordered: 08/16/2024[facility] Work Phone: comment on above:Ordered: 08/16/2024 End: 00-48-2705NE Abdomen WO contrastCT ABDOMEN WO IVCON Radiology Routine Epigastric abdominal pain 1 Occurrences starting 05/19/2023 until 06/17/2024 [facility] Work Phone: comment on above:1 Occurrences starting 05/19/2023 until 06/17/2024 End: 47-82-9868CX Chest WO contrastCT CHEST WO IVCON Radiology Routine Epigastric abdominal pain 1 Occurrences starting 05/19/2023 until 06/17/2024 [facility] Work Phone: comment on above:1 Occurrences starting 05/19/2023 until 06/17/2024 End: 53-60-5737ZGN DIAGNOSTICEGD DIAGNOSTIC Endoscopy Routine Epigastric abdominal pain 1 [facility] Work Phone: comment on above:1 Occurrences starting 05/19/2023 until 05/18/2024Patient EducationSelect [facility] Work Phone: Patient referralSelect [facility] Specialty [facility] Work Phone: [facility] PATHOLOGYThe [facility] Work Phone: comment on above:Release Upon Ordering for 1 Occurrences starting 07/02/2023, 1 completedAdena Health System Immunizations Immunization DateImmunizationNotesCare FjcitkpjIroclfol63-70-9168Lzwjdngmu, Madin [place] Canine Kidney, subunit, trivalent, injectable, contains preservative oRxana SANTIAGO Work Phone: noSaint Luke's Health SystemWcxgrdycku81-30-4633xjvkycfrv virus vaccine, unspecified formulationLogjose Smith LPN Work Phone: noSaint Luke's Health SystemBxmlydmhmr40-66-4730qeodyet, mumps and rubella virus vaccineRoxana SANTIAGO Work Phone: noSaint Luke's Health SystemEbrkgirsib25-07-3080zifgwmh, mumps and rubella virus vaccineRoxana SANTIAGO Work Phone: noSaint Luke's Health SystemAnbgnwqjuz33-35-9023SYQA-ESY-4 (COVID-19) vaccine, mRNA, spike protein, LNP, PF, 50 mcg/0.5 mLGeorge Kaftan DO Work Phone: noSaint Luke's Health SystemOtktehbhcd96-08-3430nynbjvdsf virus vaccine, unspecified formulationMalina Castaneda 264-2015Rvguom-TwvgnParkwood Hospital Digestive Ohaomi08-00-6174 influenza, injectable, quadrivalent, preservative freeGeorge Kaftan DO Work Phone: noSaint Luke's Health SystemLvdvvecwut05-45-2326ugyirbttd, seasonal, injectableGeorge Kaftan DO Work Phone: [place] [address]Gbcnyjwcie58-46-3217vwbxfqu toxoid, reduced diphtheria toxoid, and acellular pertussis vaccine, adsorbedBenegar Castaneda 574-7998Ffiqwl-TlcpbParkwood Hospital Digestive Lgmpkk69-94-2647 Moderna COVID-19 Vaccine 100 MCG/0.5ML Intramuscular SuspensionGeorge R Kaftan Work Phone: [phone]-ZfiftParkwood Hospital Convenient Vvjk31-29-6498 influenza virus vaccine, unspecified formulationMalina Castaneda 688-1762Vsrelj-YeluaParkwood Hospital Digestive Vaddpl03-10-3720 influenza, injectable, quadrivalent, contains preservativeGeorge R Kaftan Work Phone: [phone]-Mbxzvvrkqa-[place] Work Phone: [phone] virus vaccine, unspecified formulationMalina Castaneda 438-1545Elnpra-BwvuzParkwood Hospital Digestive Dgwnam51-27-9000 Felicia COVID-19 Vaccine 0.5 ML Intramuscular SuspensionGeorge R Kaftan Work Phone: [phone]-TcqyeParkwood Hospital Digestive HealthComment on above:Result Comment: 2023-04-04: TUO9664-01-6282Utowgsj HGZX-IyN-7Qunswt Kaftan DO Work Phone: noSaint Luke's Health SystemGbsophelte00-24-3820nmbbtylul virus vaccine, unspecified formulationMalina Castaneda 281-4083Idumko-PqrifParkwood Hospital Digestive Lsxjtg62-21-8125 influenza, injectable, quadrivalent, preservative freeGeorge R Kaftan Work Phone: mg495-2626QV-Rpedbkwiea-[place] Work Phone: [phone]q, injectable, madin usha canine kidney, preservative freeGeorge R Kaftan Work Phone: [phone]-Gjylttgbox-[place] [address] [place] Work Phone: Payers DatePayer CategoryPayerPolicy [id number]-lli [id number] Health InsuranceT[facility] [id number] Health Insurance [id number] 1.2.840.836205.1.13.239.2.7.3.367619.25172-41-9478Qhzhkqx13-163579 [id number] 2.0.1.881209.3.579.2.24481-43-1072Qsaddbq0762335 2.0.1.928338.3.579.2.76086-72-4329Cympdtf8459468 2.0.1.310664.3.579.2.41950-24-9532Etkusyu0775485 2.840.1.866653.3.579.2.41298-40-4908Fmxxezk1050350 2.0.1.135633.3.579.2.75966-55-4793Sivhgav3325858 2.0.1.378751.3.579.2.79818-20-1241Hpzedpk6376944 2.840.1.060673.3.579.2.46321-65-6483Droobqv0364500 2.840.1.492853.3.579.2.28724-89-6702Sjggaom3282759 2.840.1.864670.3.579.2.23993-25-9059Hehvjxr5736959 2.840.1.678403.3.579.2.74042-12-7613Oqhafpt3929049 2.840.1.307427.3.579.2.30091-24-5659Lnwizke6498932 2..1.373879.3.579.2.47320-85-1041Nwkawqx8910666 2..1.270244.3.579.2.38078-57-9869Nfhjles3468374 2..1.249232.3.579.2.46984-63-2589Tdcvlth109621981 2.0.1.127873.3.579.2.06401-09-1252Lwemgwm63181495 2.840.1.634158.3.579.2.361223-67-5097Xyscwdi931420718 2..1.025276.3.579.2.15390-75-7727Itznqdh48657415 2.840.1.326980.3.579.2.652024-35-5633Aijjorz04311341 2.0.1.417815.3.579.2.047798-38-1497Rcyndev093184377 2.840.1.962455.3.579.2.16075-89-2405Xnjbups435077244 2.840.1.636381.3.579.2.83046-27-4831Onlkhdl16865950 2.16.840.1.799585.3.579.2.189940-78-0469Ebavfin70807257 2.16.840.1.816836.3.579.2.120313-92-7424Unwukhv53153334 2.16.840.1.637362.3.579.2.275507-19-7449Kjvaary7420385 2.16.840.1.425532.3.579.2.376612-21-2601Slravqt8091594 2..840.1.066520.3.579.2.660441-92-7494Ihezlxz4161808 2.16.840.1.226731.3.579.2.416961-32-4907Xvvktzk Health [id number] 24-52-4546ZvmcshkQJO952N40090168085YqvtedrTVB429C6267149-02-5620Tmrqfrl79122163473-14-1476FdyfyspTbnfelw 08650305Whmrgtn16379994 2.16.840.1.641207.3.579.2.901Fugysag34390238 2..840.1.518064.3.579.2.531 Social History DateTypeDetailFacilityAssertionTobacco smoking consumption unknown (finding)- [facility] [address] Work Phone: start: 04-11-2022 End: 51-97-0126Auwzzne smoking status NHISNever smoked tobaccoBON Kasumi-sou Phone: start: 04-11-2022 End: 35-36-6941Ogifsnr use and exposureSmokeless tobacco non-userBON Kasumi-sou Phone: start: 53-10-0190Ccvchsp intakeLifetime non-drinker (finding)BON Kasumi-sou Phone: start: 22-71-1055Tfdbxsz SDOH Alcohol Kdaqyaicr5JKK [facility] PHOENIXGlanse Work Phone: start: 58-19-9686Dfjwkyv SDOH Alcohol Std Upuxbw3XMK [employer] Work Phone: start: 15-31-0228Oha Assigned At BirthNot on fileMOUNTAIN VISTA [facility] [employer] Work Phone: start: 04-01-2022 End: 47-27-1611Lyxjrvib to SARS-CoV-2 (event)Not sureMOUNTAIN VISTA MEDICAL CENTER [employer] Work Phone: start: 02-18-2023 End: 11-41-5950Lbh-hqzdgfBct-tycaueRW-Nluxknuclp-[place] Work Phone: Start: 28-74-5198Yrw [facility]igned At [facility]1983FeKettering Memorial HospitalTobacco smoking statusNeCleveland Clinic [facility] Digestive HealthStart: 02-18-2023 End: 22-20-2209Cvn [facility] At [facility]tart: 02-18-2023 End: 08-88-3398Vrjumvf intakeEx-drinker (finding)[facility]OMCaron[facility]let HealthTobackus hospital smoking status NHISTobacco smoking consumption unknownAdena Health System Work Phone (unformatted): [phone] of tobacco usePassive smokerMcCullough-Hyde Memorial Hospitaltart: 04-06-2024 End: 03-38-9464YlnWieyke (finding)[facility] Medical Equipment Procedure CodeEquipment CodeEquipment Original TextEquipment IdentifierDates Shoulder arthroscopyANCHOR LABRAL JUGGERKNOTFDAStart: 81-54-9906Dwhaodjc arthroscopyANCHOR LABRAL JUGGERKNOTFDAStart: 32-81-1120Mxliqmie arthroscopy ANCHOR LABRAL JUGGERKNOTFDAStart: 61-72-6182Oosvhzbz arthroscopyANCHOR LABRAL JUGGERKNOTFDAStart: 00-09-9085Vctwvdtu arthroscopyANCHOR LABRAL JUGGERKNOTFDA Start: 91-39-2848Yxkavzju arthroscopyANCHOR LABRAL JUGGERKNOTFDAStart: 88-36-9803Axcyhyus arthroscopyANCHOR LABRAL JUGGERKNOTFDAStart: 12-09-2017 Shoulder arthroscopyANCHOR LABRAL JUGGERKNOTFDAStart: 00-48-3697Rgxtgijn arthroscopyANCHOR LABRAL JUGGERKNOTFDAStart: 56-50-4119Mrbsakny arthroscopy ANCHOR LABRAL JUGGERKNOTFDAStart: 12-09-2017 Functional Status KpuqEarchjurmjIsytjkSqlmqdoc91-19-4606Ojbglnj Health Questionnaire 2 item (PHQ- 2) [Reported]University HospitalHyqwudzwln00-16-2961Fpnoceefvo StatusN/AFisher-[facility] Digestive HealthNEGATED: Highlighted rowFunctional performanceFunctional status health issues are not documented DiseaseMG-Pain Management-[place] [id number] Work Phone: Mental Status DateAssessmentResultFacilityNEGATED: Highlighted rowCognitive function [Interpretation]Cognitive status health issues are not documented DiseaseMG-Pain Management-[place] [address] Work Phone: Clinical Notes 07-10-2021 to 12-21-2024 Note Date & BljfKyhaTzpbqcrn65-95-5410 NoteOrthopedic Surgery 09/20/2024 Little Finger Dip Fusion - Right and Release, Trigger Finger - Right 12/21/24 Tasneem Camarillo is a 49 year old female here 3 months s/p the above procedure. She endorses some pain with gripping that is mainly in the 4th and 5th digits, which prevents her from holding onto things. There is also an electric, burning pain when it gets cold that travels from the wrist into the 4th and 5th digits. 11/02/24 Patient is a 49-year-old [...] of the 5th digit has restrained her ability to hold. Because of this, the patient will [...] I will leave the right hand with a 5 lb limit and see her back in 3 months.[facility]10-06-2025 History of Present illness Narrative* Nico Pepper DO - 12/13/2024 1:00 PM EDTAssociated Problem(s): Complex regional pain syndrome I, unspecified Problem is stable, will continue with current treatment plan. Call or return to clinic if any changes occur Orders: pregabalin (Lyrica) 200 MG capsule; Take 1 capsule (200 mg) by mouth in the morning and 1 capsule (200 mg) before bedtime. * Nico Pepper DO - 12/13/2024 1:00 PM EDTAssociated Problem(s): Disorder of intervertebral disc of lumbar spine Patient advised to return if symptoms worsen and/or persist despite treatment. Orders: pregabalin (Lyrica) 200 MG capsule; Take 1 capsule (200 mg) by mouth in the morning and 1 capsule (200 mg) before bedtime. * Nico Pepper DO - 12/13/2024 1:00 PM EDTAssociated Problem(s): Chronic pain Should improve with the above prescribed medications. Call if not improved despite treatment. Orders: pregabalin (Lyrica) 200 MG capsule; Take 1 capsule (200 mg) by mouth in the morning and 1 capsule (200 mg) before bedtime. * Nico Pepper DO - 12/13/2024 1:00 PM EDTAssociated Problem(s): Neuropathy Orders: pregabalin (Lyrica) 200 MG capsule; Take 1 capsule (200 mg) by mouth in the morning and 1 capsule (200 mg) before bedtime. * Nico Pepper DO - 12/13/2024 1:00 PM EDTAssociated Problem(s): Headache Patient advised to return if symptoms worsen and/or persist despite treatment.Should improve with the above prescribed medications. Call if not improved despite treatment. Orders: ondansetron ODT (Zofran-ODT) 4 MG disintegrating tablet; DISSOLVE 1 TABLET ON THE TONGUE EVERY 8 HOURS NEEDED * Nico Pepper DO - 12/13/2024 1:00 PM EDT Images from the original note were not included. Subjective ?Quick Links Last Note in Specialty Snapshot Edit RFV/CC Edit Screenings Current Meds Patient ID: Tasneem Camarillo is a 49 y.o. female who presents for Hypertension, Hypothyroidism, GERD, Chronic pain. Pt presents to the office for a routine OV. Chronic pain: In need of refill of lyrica. Feels medication is helpful. Migraine: Pt states she has a pressure like migraine located all over head. Onset: 1 week ago. Has tried fiorcet, Excedrin, tizanidine, and benadryl with no relief. Pain This is a chronic problem. The current episode started more than 1 year ago. Hypertension This is a chronic problem. The current episode started more than 1 year ago. The problem is unchanged. Medication Documentation Review Audit Reviewed by Sindy Smith LPN (Licensed Nurse) on 10/06/25 at 1251 Medication Order Taking? Sig Documenting Provider Last Dose Status atenolol-chlorthalidone (Tenoretic) 50-25 MG tablet [id number] Take 1 tablet by mouth Daily Nico Pepper DO Active cchknytjvp-cuiqommyyjxgh-anazjnfu (Fioricet) 50-300-40 MG capsule [id number] TAKE 1 CAPSULE BY MOUTH EVERY 4 HOURS NEEDED FOR HEADACHES Nico Pepper DO Active estradiol (Estrace) 0.1 MG/GM vaginal cream [id number] Insert twice weekly Winston Hameed MD Active hydrOXYzine pamoate (Vistaril) 25 MG capsule [id number] Take 1 capsule (25 mg) by mouth every 8 (eight) hours if needed for anxiety Nico Pepper DO Active lamoTRIgine (LaMICtal) 200 MG tablet [id number] Take 1 tablet (200 mg) by mouth Daily Nico Pepper DO Active ondansetron ODT (Zofran-ODT) 4 MG disintegrating tablet [id number] DISSOLVE 1 TABLET ON THE TONGUE EVERY 8 HOURS NEEDED Nico Pepper DO Active oxaprozin (Daypro) 600 MG tablet [id number] Take 1 tablet (600 mg) by mouth in the morning and 1 tablet (600 mg) before bedtime. Nico Pepper DO Active oxyCODONE-acetaminophen (Percocet) 5-325 MG tablet [id number] Take 1 tablet by mouth in the morning. Historical ProviderMD Active PARoxetine (Paxil) 30 MG tablet [id number] Take 2 tablets (60 mg) by mouth Daily Nico Pepper DO Active pregabalin (Lyrica) 200 MG capsule [id number] Take 1 capsule (200 mg) by mouth in the morning and 1 capsule (200 mg) before bedtime. Nico Pepper DO Active tiZANidine (Zanaflex) 4 MG tablet [id number] Take 1 tablet (4 mg) by mouth 3 (three) times a day as needed for muscle spasms Nico Pepper DO Active valACYclovir (Valtrex) 500 MG tablet [id number] TAKE 1 TABLET BY MOUTH EVERY MORNING 1 IN THE EVENING& 1 AT BEDTIME FOR 7 DAYS Nico Pepper DO Active Vibegron (Gemtesa) 75 MG tablet [id number] Take 75 mg by mouth Daily Winston Hameed MD Active Review of Systems ?Quick Review Review Full History Edit History Meds - atenolol-chlorthalidone (Tenoretic) 50-25 MG tablet sdzmuuekjy-ravghulqtbnfc-dztzxedg (Fioricet) 50-300-40 MG capsule hydrOXYzine pamoate (Vistaril) 25 MG capsule oxaprozin (Daypro) 600 MG tablet oxyCODONE-acetaminophen (Percocet) 5-325 MG tablet PARoxetine (Paxil) 30 MG tablet tiZANidine (Zanaflex) 4 MG tablet valACYclovir (Valtrex) 500 MG tablet lamoTRIgine (LaMICtal) 200 MG tablet ondansetron ODT (Zofran-ODT) 4 MG disintegrating tablet pregabalin (Lyrica) 200 MG capsule --- PMH - Allergies Anxiety Asthma (HCC) Bipolar I disorder (HCC) Bronchitis Chicken pox CRPS (complex regional pain syndrome ) Endometriosis Gastritis GERD (gastroesophageal reflux disease) H/O chest tube placement H/O knee surgery H/O psychiatric care Hiatal hernia History of medical treatment History of migraine headaches History of migraine headaches History of surgical removal of ganglion cyst Hypertension Hypothyroidism, unspecified Irritable bowel disease Kidney stones Nerve damage Pneumothorax Reflex sympathetic dystrophy S/P ureteral stent placement Objective ?Quick Links Add Vitals Timeline (Adult) Labs Imaging Results Review Trend Vitals ?? Avoid pulling in long tables of results. Comment on relevant results to support your medical decision making. BP 118/86 Pulse 54 Temp 97.1 F Ht 5' 2 Wt 149 lb 3.2 oz SpO2 96% BMI 27.29 kg/m Physical Exam Constitutional: Appearance: Normal appearance. HENT: Head: Normocephalic and atraumatic. Eyes: Extraocular Movements: Extraocular movements intact. Conjunctiva/sclera: Conjunctivae normal. Pupils: Pupils are equal, round, and reactive to light. Cardiovascular: Rate and Rhythm: Normal rate and regular rhythm. Pulmonary: Effort: Pulmonary effort is normal. Breath sounds: Normal breath sounds. Abdominal: General: Bowel sounds are normal. Palpations: Abdomen is soft. Musculoskeletal: General: Normal range of motion. Skin: General: Skin is warm and dry. Neurological: General: No focal deficit present. Mental Status: She is alert and oriented to person, place, and time. Psychiatric: Mood and Affect: Mood normal. Thought Content: Thought content normal. Judgment: Judgment normal. ?Quick Links Full Problem List Cardiology Chronic Pain GI Headache Hypertension Thyroid Assessment & Plan Headache Patient advised to return if symptoms worsen and/or persist despite treatment.Should improve with the above prescribed medications. Call if not improved despite treatment. Orders: ondansetron ODT (Zofran-ODT) 4 MG disintegrating tablet; DISSOLVE 1 TABLET ON THE TONGUE EVERY 8 HOURS NEEDED Complex regional pain syndrome type 1, affecting unspecified site Problem is stable, will continue with current treatment plan. Call or return to clinic if any changes occur Orders: pregabalin (Lyrica) 200 MG capsule; Take 1 capsule (200 mg) by mouth in the morning and 1 capsule (200 mg) before bedtime. Disorder of intervertebral disc of lumbar spine Patient advised to return if symptoms worsen and/or persist despite treatment. Orders: pregabalin (Lyrica) 200 MG capsule; Take 1 capsule (200 mg) by mouth in the morning and 1 capsule (200 mg) before bedtime. Chronic pain syndrome Should improve with the above prescribed medications. Call if not improved despite treatment. Orders: pregabalin (Lyrica) 200 MG capsule; Take 1 capsule (200 mg) by mouth in the morning and 1 capsule (200 mg) before bedtime. Neuropathy Orders: pregabalin (Lyrica) 200 MG capsule; Take 1 capsule (200 mg) by mouth in the morning and 1 capsule (200 mg) before bedtime. documented in this encounterUniversity [id number] NoteOrthopedic Surgery 09/20/2024 Little Finger Dip Fusion - Right and Release, Trigger Finger - Right 11/02/24 Patient is a 49-year-old female presenting [...] Physical Exam: The incision site is healed. Some hypertrophy of the trigger release scar. There is no erythema, drainage or signs of infection. Tenderness is mild and localized to the surgical site. Sensation is present to light touch. Range of motion is appropriate for this time. Imagin views x-ray of the right fingers taken in clinic today 11/02/2024 demonstrate postsurgical changes from DIP fusion with appropriate appearance of hardware. DIP not fully fused yet but there is interval callus formation. Good alignment. Assessment: Tasneem Camarillo is a 49 y.o. year old female presenting for postop follow-up 6 weeks status post small finger DIP fusion and release of right small trigger finger. - Discussed clinical and imaging findings with the patient. - Triggering has resolved. Will reevaluate hand pain at next visit. Pain may improve over the coming weeks as there is not complete fusion at DIP yet. Patient is agreeable to this plan. - Follow-up in clinic in 6 weeks with repeat x-rays of the right fingers. No C9's need to be submitted from this visit. Patient is not working at this time. Keep same restrictions until Next visit, no use of right hand. No additional allowances need to be added to the claim at this time Farhat Harrison MS4 11/02/24 1:26 PM I was physically present with the medical student. I have personally performed (or re-performed) the physical exam and medical decision making for the patient. I personally verified the medical student's documentation. I made pertinent changes as necessary to ensure accurate documentation. Additional Notes/Findings: The DIP fusion is not yet healed. We will check an xray in 6 wks. Cont current restrictions until then.[facility]07-30-2025 NoteOrthopedic Surgery 09/20/2024 Little Finger Dip Fusion - Right and Release, Trigger Finger - Right Tasneem Camarillo comes in for a post-operative visit after having a right SF DIP fusion and A1 release done on 09/20/2024. Today she is doing well and has no unexpected complaints. She was notified by her employer that she had been terminated yesterday. Physical Exam: The incision site is healing well. There is no erythema, drainage or signs of infection. Tenderness is mild and localized to the surgical site. Sensation is present to light touch. Range of motion is appropriate for this time. Assessment: Tasneem Camarillo is a 49 y.o. year old female with a contracture of the L small finger and trigger digit. Plan: The sutures were removed in the clinic today. I instructed the patient on how to do scar massage, and then apply lotion to the incisional site. She can begin using the hand and returning to activities as tolerated. We will see her back in the clinic 4 wks with xrays of the small finger.[facility]07-14-2025 NotePatient: Tasneem Camarillo Procedure Summary Date: 09/20/24 Room / Location: [address] OR Anesthesia Start: 737 Anesthesia Stop: 841 Procedures: LITTLE FINGER DIP FUSION (Right: Little Finger) RELEASE, TRIGGER FINGER (Right: Little Finger) Diagnosis: Trigger finger, acquired (Trigger finger, acquired [M65.30]) Surgeons: Vadim Dorado MD Responsible Provider: Kristie Lui MD Anesthesia Type: regional ASA Status: 2 Anesthesia Type: regional Vitals Value Taken Time BP 128/75 09/20/24 09:15 Temp 36.2 ???C (97.2 ???F) 09/20/24 09:15 Pulse 63 09/20/24 09:15 Resp 14 09/20/24 09:15 SpO2 100 % 09/20/24 09:15 Anesthesia Post Evaluation Patient location during evaluation: PACU Patient participation: complete - patient participated Level of consciousness: awake Pain score: 0 Pain management: adequate Airway patency: patent Cardiovascular status: acceptable Respiratory status: acceptable Hydration status: acceptable Patient is hemodynamically stable and is able to be discharged from PACU per anesthesia protocol. No notable events documented.[facility]07-14-2025 Note Patient: Tasneem Camarillo Procedure Information Anesthesia Start Date/Time: 09/20/24737 Procedures: LITTLE FINGER DIP FUSION (Right: Little Finger) RELEASE, TRIGGER FINGER (Right: Little Finger) - C-ARM, MEDARTIS NOTIFIED 09/15 Location: [address] OR Surgeons: Vadim Dorado MD Relevant Problems Cardio (+) Hypertension Endo (+) Hypothyroidism /Renal (+) Kidney stone Other (+) Arthritis Clinical information reviewed: Tobacco Allergies Meds Med Hx Surg Hx Fam Hx Soc Hx Physical Exam Airway Mallampati: II Cardiovascular - normal exam Dental - normal exam Pulmonary - normal exam Neurological Abdominal - normal exam Anesthesia Plan ASA 2 MAC The patient is not a current smoker. Patient was not previously instructed to abstain from smoking on day of procedure. Patient did not smoke on day of procedure. Education provided regarding risk of obstructive sleep apnea. intravenous induction Postoperative pain plan includes opioids. Anesthetic plan and risks discussed with patient. Use of blood products discussed with patient who consented to blood products. Plan discussed with CAA. Additional Equipment RequestsWayne HealthCare Main Campus07-14-2025 Note Patient: Tasneem Camarillo Procedure Summary Date: 09/20/24 Room / Location: [address] OR Anesthesia Start: 737 Anesthesia Stop: Procedures: LITTLE FINGER DIP FUSION (Right: Little Finger) RELEASE, TRIGGER FINGER (Right: Little Finger) Diagnosis: Trigger finger, acquired (Trigger finger, acquired [M65.30]) Surgeons: Vadim Dorado MD Responsible Provider: Kristie Lui MD Anesthesia Type: regional ASA Status: Not recorded Anesthesia Post [facility] Oxygen Flow (L/min): 8 Patient Monitor: direct observation Transport: uneventful Patient condition is: stableWayne HealthCare Main Campus07-14-2025 Note Peripheral Block Patient location during procedure: pre-op Start time: 09/20/2024 7:25 AM End time: 09/20/2024 7:40 AM Reason for block: primary anesthetic Staffing Performed: anesthesiologist and resident/HEAVY E[employer]IPMENT OPERATING ENGINEER/CAA Anesthesiologist: Kristie Lui MD Resident/HEAVY EQUIPMENT OPERATING ENGINEER: Cornelio White MD Preanesthetic Checklist Completed: patient identified, IV checked, site marked, risks and benefits discussed, surgical consent, monitors and equipment checked, pre-op evaluation and timeout performed Peripheral Block Patient position: supine Prep: ChloraPrep Patient monitoring: continuous pulse ox and heart rate Block type: axillary Laterality: right Injection technique: single-shot Guidance: ultrasound guided Local infiltration: bupivicaine Infiltration strength: 0.5 % Dose: 1 mL Needle Needle type: short-bevel Needle gauge: 22 G Needle length: 2 in Needle localization: ultrasound guidance Medications Administered BUPivacaine (Marcaine) injection 0.5 % (5 mg/mL) - injection 200 mg - 09/20/2024 7:25:00 AM fentaNYL (SUBLIMAZE) IV - intravenous 50 mcg - 09/20/2024 7:17:00 AM midazolam (VERSED) IV - intravenous 2 mg - 09/20/2024 7:17:00 AM Assessment Injection assessment: negative aspiration for heme, local visualized surrounding nerve on ultrasound, no paresthesia on injection and incremental injection Paresthesia pain: none Heart rate change: no Slow fractionated injection: yes Additional Notes R/B/A regarding nerve block discussed with pt and pt's spouse, who demonstrates understanding and agrees to proceed. Pt SpO2 decreased to low 80s with after administration of sedation. Nonrebreather was applied which improved SpO2 to 100% for the remainder of the procedure.[facility]07-14-2025 NoteNo associated orders from this encounter found during lookback period of 72 hours.[facility]06-09-2025 History of Present illness Narrative* Winston Hameed MD - 08/16/2024 10:45 AM EDT Images from the original note were not included. t Winston Hameed MD Obstetrics and Gynecology Patient: Tasneem Camarillo : 1975 (49 y.o.) Exam Date: 08/16/2024 Reason for Visit - Chief Complaint Patient presents with Follow-up Patient present for follow up following in house US. Patient denies any issues or complaints. Follow-up following in-house ultrasound History of Present Illness She reports experiencing urinary incontinence, with a sensation of incomplete bladder emptying. Theincontinence is not limited to physical exertion such as laughing or coughing but occurs consistently throughout the day. She describes a need to return to the bathroom immediately after urination toensure complete bladder emptying, which she finds particularly distressing in her workplace. She has not previously sought pharmacological intervention for this issue. She recalls a complication during her hysterectomy procedure, performed approximately 20 years ago, where her bladder was inadvertently incised, necessitating a subsequent repair. She speculates that residual scarring from this incident may be contributing to her current symptoms. The patient, Tasneem, is postmenopausal and presents for a routine gynecological follow-up. She reports no specific complaints during this visit. . She expresses awareness of hormonal changes associated with menopause, particularly noting a change in body odor. Tasneem has been using feminine hygiene products to address this concern, demonstrating proactive self-care in response to these changes. Tasneem uses deodorant for odor control and has a 30-year-old daughter. She reports positive changes in vaginal odor as part of her genitourinary system review. Visit Vitals BP 120/72 (BP Location: Left arm) Wt 152 lb BMI 27.80 kg/m OB Status Unknown Smoking Status Never BSA 1.74 m History of Present Illness, Associated Treatments and Results - OB History Para Term AB Living 1 0 0 0 1 0 SAB IAB Ectopic Multiple Live Births 1 0 0 0 0 # Outcome Date GA Lbr Peterson/2nd Weight Sex Type Anes PTL Lv 1 SAB Constitutional: Negative. HENT: Negative. Eyes: Negative. Respiratory: Negative. Cardiovascular: Negative. Gastrointestinal: Negative. Endocrine: Negative. Genitourinary: Negative. Musculoskeletal: Negative. Skin: Negative. Allergic/Immunologic: Negative. Neurological: Negative. Hematological: Negative. Psychiatric/Behavioral: Negative. Allergies Allergen Reactions Sulfa Antibiotics Augmentin [Amoxicillin-Pot Clavulanate] Rash Imitrex [Sumatriptan] Palpitations Reglan [Metoclopramide] Anxiety Current Outpatient Medications: atenolol-chlorthalidone (Tenoretic) 50-25 MG tablet, TAKE 1 TABLET BY MOUTH EVERY DAY, Disp: 90 tablet, Rfl: 2 azithromycin (Zithromax) 250 MG tablet, 2 pills orally today, then 1 pill orally daily for 4 days, Disp: 6 tablet, Rfl: 0 wexjxdvxpe-qkszcwjpinsur-dkresjzi (Fioricet) 50-300-40 MG capsule, TAKE 1 CAPSULE BY MOUTH EVERY 4 HOURS NEEDED FOR HEADACHES, Disp: 40 capsule, Rfl: 0 estradiol (Estrace) 0.1 MG/GM vaginal cream, Insert twice weekly, Disp: 42.5 g, Rfl: 12 fluticasone (Flonase) 50 MCG/ACT nasal spray, Administer 2 sprays into each nostril Daily Shake gently. Before first use, prime pump. After use, clean tip and replace cap., Disp: , Rfl: hydrOXYzine pamoate (Vistaril) 25 MG capsule, Take 1 capsule (25 mg) by mouth every 8 (eight) hoursif needed for anxiety, Disp: 30 capsule, Rfl: 5 lamoTRIgine (LaMICtal) 200 MG tablet, Take 1 tablet (200 mg) by mouth Daily, Disp: 90 tablet, Rfl: 3 ondansetron ODT (Zofran-ODT) 4 MG disintegrating tablet, DISSOLVE 1 TABLET ON THE TONGUE EVERY 8 HOURS NEEDED, Disp: 18 tablet, Rfl: 2 oxaprozin (Daypro) 600 MG tablet, Take 1 tablet (600 mg) by mouth in the morning and 1 tablet (600 mg) before bedtime., Disp: 60 tablet, Rfl: 3 oxyCODONE-acetaminophen (Percocet) 5-325 MG tablet, Take 1 tablet by mouth in the morning., Disp: ,Rfl: PARoxetine (Paxil) 30 MG tablet, TAKE 2 TABLETS BY MOUTH IN THE MORNING, Disp: 180 tablet, Rfl: 3 pregabalin (Lyrica) 200 MG capsule, TAKE 1 CAPSULE BY MOUTH IN THE MORNING AND 1 CAPSULE BEFORE BEDTIME., Disp: 60 capsule, Rfl: 0 tiZANidine (Zanaflex) 4 MG tablet, Take 1 tablet (4 mg) by mouth 3 (three) times a day as needed for muscle spasms, Disp: 270 tablet, Rfl: 1 valACYclovir (Valtrex) 500 MG tablet, TAKE 1 TABLET BY MOUTH EVERY MORNING 1 IN THE EVENING & 1AT BEDTIME FOR 7 DAYS, Disp: 21 tablet, Rfl: 1 Vibegron (Gemtesa) 75 MG tablet, Take 75 mg by mouth Daily, Disp: 30 tablet, Rfl: 3 Past Medical History: Diagnosis Date Allergies Anxiety Asthma Bipolar I disorder (CMS/HCC) 2006 Bronchitis Chicken pox CRPS (complex regional pain syndrome ) Endometriosis Gastritis 2010 GERD (gastroesophageal reflux disease) 2009 H/O chest tube placement 2005 H/O knee surgery x2 H/O psychiatric care Hiatal hernia History of medical treatment 2006 Exp lap with removal R ovary & tube History of migraine headaches History of migraine headaches History of surgical removal of ganglion cyst 2005 Hypertension (CMS/HCC) Hypothyroidism, unspecified Irritable bowel disease Kidney stones Nerve damage to left ankle Pneumothorax 2004 Reflex sympathetic dystrophy S/P ureteral stent placement urinary stent placement X2 Past Surgical History: Procedure Laterality Date ABDOMINAL SURGERY APPENDECTOMY 2003 CHOLECYSTECTOMY 2016 COLONOSCOPY 08/21/2018 EGD 2009 with biopsy - GERD EGD 2009 with biopsy- Gastritis FINGER SURGERY Right 5th finger GANGLION CYST EXCISION X2 left wrist HM MAMMOGRAPHY 12/31/2018 benign HYSTERECTOMY 2005 LITHOTRIPSY YEFRI FUNDOPLICATION 2013 [facility] Bipolar I - ongoing PROMETHAZINE LEVEL 2010 phenergan SHOULDER ARTHROSCOPY Left 12/2017 TOTAL ABDOMINAL HYSTERECTOMY W/ BILATERAL SALPINGOOPHORECTOMY 2005 Family History Problem Relation Name Age of Onset Hypertension Mother Marita Colon cancer Mother Marita Hyperlipidemia Mother Marita Migraines Mother Marita Dementia Mother Marita Pulmonary embolism Mother Marita Diabetes Mother Marita Lung cancer Father Gonzales Hypertension Father Gonzales Peripheral vascular disease Father Gonzales Mental illness Sister No Known Problems Sister Breast cancer Neg Hx Ovarian cancer Neg Hx Social History Tobacco Use Smoking Status Never Smokeless Tobacco Not on file Physical Exam - General appearance, mentation, extraocular movements, facial strength and movement, hearing, upper and lower extremity strength and tone, sensation to gross testing, coordination, and gait are normalor at baseline unless noted below. Physical Exam Constitutional: Appearance: Normal appearance. HENT: Head: Normocephalic and atraumatic. Neurological: Mental Status: She is alert and oriented to person, place, and time. Psychiatric: Mood and Affect: Mood normal. Behavior: Behavior normal. US Limited pelvic ultrasound demonstrate the urinary bladder residual volume to measure 6 ml. Assessment/Plan ICD-10-CM 1. Hormone imbalance E34.9 2. Urinary incontinence, unspecified type R32 3. Vaginal atrophy N95.2 4. Other urinary incontinence N39.498 5. Yeast infection B37.9 , Follow up PVR for perceived incomplete emptying of bladder Normal PVR Referral to Urology Urine culture sent 2. Postmenopausal vaginal health: - Assessment: Patient reports awareness of changes in vaginal odor associated with postmenopausal hormonal changes. Patient has been using edpk-fmg-zoqrjuf products to manage symptoms. - Plan: a) Recommend use of aluminum-free, pH-balanced products specifically formulated for genital use. b) Educate on normal postmenopausal changes in vaginal health. c) Encourage to report any persistent or concerning symptoms. 3. Preventive care: - Assessment: Patient is due for annual gynecological screening and preventive care. Last mammogramwas performed in April of the current year. - Plan: a) Order annual mammogram. b) Schedule next annual gynecological exam in one year. c) Review results of current visit's tests (unspecified) in 3 days via patient portal. Assessment & Plan documented in this encounterUniversity [id number] History of Present illness Narrative* Winston Hameed MD - 07/19/2024 11:00 AM EDT Images from the original note were not included. 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 She reports experiencing urinary incontinence, with a sensation of incomplete bladder emptying. Theincontinence is not limited to physical exertion such as laughing or coughing but occurs consistently throughout the day. She describes a need to return to the bathroom immediately after urination toensure complete bladder emptying, which she finds particularly distressing in her workplace. She has not previously sought pharmacological intervention for this issue. She recalls a complication during her hysterectomy procedure, performed approximately 20 years ago, where her bladder was inadvertently incised, necessitating a subsequent repair. She speculates that residual scarring from this incident may be contributing to her current symptoms. Additionally, she mentions a previous prescription for estrogen cream, which was prescribed due to dyspareunia secondary to a thin vaginal lining. PAST SURGICAL HISTORY: - Hysterectomy with bladder repair (approximately 20 years ago) The patient presents with a chief complaint of bladder leakage, which has been significantly impacting her daily life and work. She reports having to sit back down after urinating to ensure her bladder is completely empty, as it continues to leak. This issue has become embarrassing for her at work,where colleagues notice her frequent trips to the bathroom. The patient experiences occasional urine loss when sneezing. She mentions that during her hysterectomy 20 years ago, her bladder was cut and required subsequent repair. She wonders if the resulting scarring might be contributing to her current bladder issues. The patient also notes that her ovarieswere removed during the same procedure. The bladder leakage is affecting the patient's quality of life, causing embarrassment and disrupting her work routine. She expresses concern about the frequency of her bathroom visits and the need toensure complete bladder emptying. The patient's medical history includes ongoing bladder leakage and a hysterectomy with bladder injury requiring repair. Her surgical history includes a hysterectomy with bladder injury repair and bilateral oophorectomy, both approximately 20 years ago. The patient is currently taking estrogen for painful and thin vaginal tissue. In terms of social history, the patient reports embarrassment at work due to frequent bathroom visits. A review of systems indicates positive findings for urinary incontinence, urinary frequency, and incomplete bladder emptying in the genitourinary system. The patient also experiences stress incontinence with sneezing. Visit Vitals Smoking Status Never History of Present Illness, Associated Treatments and Results - OB History Para Term AB Living 1 0 0 0 1 0 SAB IAB Ectopic Multiple Live Births 1 0 0 0 0 # Outcome Date GA Lbr Peterson/2nd Weight Sex Type Anes PTL Lv 1 SAB Constitutional: Negative. HENT: Negative. Eyes: Negative. Respiratory: Negative. Cardiovascular: Negative. Gastrointestinal: Negative. Endocrine: Negative. Genitourinary: Negative. Musculoskeletal: Negative. Skin: Negative. Allergic/Immunologic: Negative. Neurological: Negative. Hematological: Negative. Psychiatric/Behavioral: Negative. Allergies Allergen Reactions Sulfa Antibiotics Augmentin [Amoxicillin-Pot Clavulanate] Rash Imitrex [Sumatriptan] Palpitations Reglan [Metoclopramide] Anxiety Current Outpatient Medications: atenolol-chlorthalidone (Tenoretic) 50-25 MG tablet, TAKE 1 TABLET BY MOUTH EVERY DAY, Disp: 90 tablet, Rfl: 2 azithromycin (Zithromax) 250 MG tablet, 2 pills orally today, then 1 pill orally daily for 4 days, Disp: 6 tablet, Rfl: 0 cihzelahrm-jonnijiztyeei-ufwcbtew (Fioricet) 50-300-40 MG capsule, TAKE 1 CAPSULE BY MOUTH EVERY 4 HOURS NEEDED FOR HEADACHES, Disp: 40 capsule, Rfl: 0 fluticasone (Flonase) 50 MCG/ACT nasal spray, Administer 2 sprays into each nostril Daily Shake gently. Before first use, prime pump. After use, clean tip and replace cap., Disp: , Rfl: hydrOXYzine pamoate (Vistaril) 25 MG capsule, Take 1 capsule (25 mg) by mouth every 8 (eight) hoursif needed for anxiety, Disp: 30 capsule, Rfl: 5 lamoTRIgine (LaMICtal) 200 MG tablet, Take 1 tablet (200 mg) by mouth Daily, Disp: 90 tablet, Rfl: 3 ondansetron ODT (Zofran-ODT) 4 MG disintegrating tablet, DISSOLVE 1 TABLET ON THE TONGUE EVERY 8 HOURS NEEDED, Disp: 18 tablet, Rfl: 2 oxaprozin (Daypro) 600 MG tablet, Take 1 tablet (600 mg) by mouth in the morning and 1 tablet (600 mg) before bedtime., Disp: 60 tablet, Rfl: 3 oxyCODONE-acetaminophen (Percocet) 5-325 MG tablet, Take 1 tablet by mouth in the morning., Disp: ,Rfl: PARoxetine (Paxil) 30 MG tablet, TAKE 2 TABLETS BY MOUTH IN THE MORNING, Disp: 180 tablet, Rfl: 3 pregabalin (Lyrica) 200 MG capsule, Take 1 capsule (200 mg) by mouth in the morning and 1 capsule (200 mg) before bedtime., Disp: 60 capsule, Rfl: 0 tiZANidine (Zanaflex) 4 MG tablet, TAKE 1 TABLET BY MOUTH THREE TIMES A DAY NEEDED, Disp: 270 tablet, Rfl: 1 valACYclovir (Valtrex) 500 MG tablet, TAKE 1 TABLET BY MOUTH EVERY MORNING 1 IN THE EVENING & 1AT BEDTIME FOR 7 DAYS, Disp: 21 tablet, Rfl: 1 Past Medical History: Diagnosis Date Allergies Anxiety Asthma Bipolar I disorder (CMS/HCC) 2006 Bronchitis Chicken pox CRPS (complex regional pain syndrome ) Endometriosis Gastritis 2009 GERD (gastroesophageal reflux disease) 2010 H/O chest tube placement 2005 H/O knee surgery x2 H/O psychiatric care Hiatal hernia History of medical treatment 2006 Exp lap with removal R ovary & tube History of migraine headaches History of migraine headaches History of surgical removal of ganglion cyst 2005 Hypertension (CMS/HCC) Hypothyroidism, unspecified (CMS/[facility]) Irritable bowel disease Kidney stones Nerve damage to left ankle Pneumothorax 2005 Reflex sympathetic dystrophy S/P ureteral stent placement urinary stent placement X2 Past Surgical History: Procedure Laterality Date ABDOMINAL SURGERY APPENDECTOMY 2003 CHOLECYSTECTOMY 2016 COLONOSCOPY 08/21/2018 EGD 2009 with biopsy - GERD EGD 2009 with biopsy- Gastritis FINGER SURGERY Right 5th finger GANGLION CYST EXCISION X2 left wrist HM MAMMOGRAPHY 12/31/2018 benign HYSTERECTOMY 2005 LITHOTRIPSY YEFRI FUNDOPLICATION 2013 NE MEDICATION MANAGEMENT Bipolar I - ongoing PROMETHAZINE LEVEL 2010 phenergan SHOULDER ARTHROSCOPY Left 12/2017 TOTAL ABDOMINAL HYSTERECTOMY W/ BILATERAL SALPINGOOPHORECTOMY 2005 Family History Problem Relation Name Age of Onset Hypertension Mother Marita Colon cancer Mother Marita Hyperlipidemia Mother Marita Migraines Mother Marita Dementia Mother Marita Pulmonary embolism Mother Marita Diabetes Mother Marita Lung cancer Father Gonzales Hypertension Father Gonzales Peripheral vascular disease Father Gonzales Mental illness Sister No Known Problems Sister Breast cancer Neg Hx Ovarian cancer Neg Hx Social History Tobacco Use Smoking Status Never Smokeless Tobacco Not on file Physical Exam - General appearance, mentation, extraocular movements, facial strength and movement, hearing, upper and lower extremity strength and tone, sensation to gross testing, coordination, and gait are normalor at baseline unless noted below. Physical Exam Constitutional: Appearance: Normal appearance. Genitourinary: Right Labia: No rash or lesions. Left Labia: No lesions or rash. Vaginal cuff intact. No vaginal discharge or erythema. Anterior vaginal prolapse present. Moderate vaginal atrophy present. Right Adnexa: not tender. Breasts: Right: Normal. No mass or nipple discharge. Left: Normal. No mass or nipple discharge. HENT: Head: Normocephalic and atraumatic. Cardiovascular: Rate and Rhythm: Normal rate and regular rhythm. Pulmonary: Breath sounds: Normal breath sounds. Abdominal: General: There is no distension. Palpations: Abdomen is soft. There is no mass. Tenderness: There is no abdominal tenderness. Musculoskeletal: General: Normal range of motion. Cervical back: Neck supple. Lymphadenopathy: Cervical: No cervical adenopathy. Neurological: Mental Status: She is alert and oriented to person, place, and time. Skin: General: Skin is warm and dry. Psychiatric: Mood and Affect: Mood normal. Assessment/Plan ICD-10-CM 1. Hormone imbalance E34.9 2. Urinary incontinence, unspecified type R32 Pap and exam performed. Mammogram ordered Results can be found in MyChart in 7 days Bone health discussed 1. Urinary Incontinence: - Assessment: - Patient reports urinary leakage and incomplete bladder emptying - Symptoms include leakage with sneezing, suggesting stress incontinence - History of hysterectomy with bladder injury and repair 20 years ago - Possible vesicovaginal fistula - Differential diagnoses: stress incontinence, overactive bladder, vesicovaginal fistula - Pelvic floor weakness considered as contributing factor - Plan: a) Prescribe medication for pelvic floor strengthening and leakage prevention, to be used 3 times aweek with cream b) Order ultrasound to assess post-void residual and ensure complete bladder emptying - Patient to arrive with full bladder, void, then undergo ultrasound c) Trial of conservative management before considering surgical intervention d) Continue estrogen therapy for vaginal health e) Reassess after medication trial; if ineffective, may need to consider surgery 1. Gemtesa will be prescribed to manage the urinary incontinence. Additionally, Estrace cream will be provided to enhance vaginal support of the pelvic floor, to be applied 3 times weekly. If the current treatment plan proves ineffective, a referral to a urologist will be considered. - Postvoid residual ultrasound - Gemtesa prescription - Estrace cream application 3 times weekly - Referral to urologist if necessary Annual 1 year Assessment & Plan documented in this encounterUniversity [id number] Note Attestation signed by Vadim Dorado MD at 07/14/2024 7:31 PM GC: I [...] allowance to be added to the claim. Submit C9 authorization for right small finger trigger finger release Keep same restrictions until Next visit I believe that the diagnosis of right small trigger finger is a direct result from the work related injury. We will submit an additional allowance to be added to the claim.[facility]04-05-2025 Radiology Diagnostic study [facility] [address] [place] [address] CT Scan Report Signed Patient: Tasneem Camarillo MR#: [id number] : 1975 Acct:[id number] Age/Sex: 49 / F ADM Date: 5 Loc: ER Room: Type: [facility] ER Attending Dr: Copies to: Yamil Leal MD~ Ordering Provider: Yamil Leal MD Date of Service: 06/12/24 CT/CT head/brain wo con: lightheadedness/dizziness CT BRAIN WITHOUT CONTRAST: CLINICAL HISTORY: Lightheadedness, dizziness, headache, nausea COMPARISON: 05/25/2024 TECHNIQUE: Contiguous axial unenhanced images were obtained through the brain. This CT exam was performed using one or more following dose reduction techniques: Automated exposure control, adjustmentof the mA and/or kV accordingto patient size, or use of iterative reconstruction [...] Nikolay Zuniga M.D.06/12/2024 6:24 PM Dictation Location: [place] [address] Transcribed By: [facility] 06/12/241823 Dictated By: Nikolay Zuniga MD 06/12/241820 Signed By: 06/12/241823 [facility] Work Phone: 1(130) 288-177903-24-2025 History of Present illness Narrative* Nico Pepper, - 05/31/2024 2:20 PM EDT Images from the original note were not included. SUBJECTIVE: Tasneem Camarillo is a 49 y.o. female presents with chief complaint of ER follow up. Here for ER follow up. Seen at [facility] on 05/25/24 re headache and eye pain. Pt states her eyes were unable to look straight ahead and noticed head pain. CT head was done showing negative for acute findings. EKG and CXR nonacute. Urine negative. COVID/Flu/RSV negative. Pt was given fluids, Benadryl, Zofran, and Toradol and re-evaluated. Pt did notice some relief when given but caused drowsiness. Pt states she always had a [place] and suffers from migraines. Pt states she does take fiorcet as needed which is effective if taken quickly. Seen Dr. Pearl years ago who advised to try indomethacin but it caused ulcer in mouth so no longertaking. Flowsheet Row Patient Outreach from 05/26/2024 in [facility] with Tati Harrison [facility] Information ED, Hospital or Fci Facility Discharge? ED Patient has been contacted within 2 days of being seen in the ED Yes Diagnosis Headache/eye pain Discharge Date 05/25/24 Discharged To: Home Setting Discharge Hospital [facility] Engagement Call Start Time 1314 Admission Date 05/25/24 Medications Discharge medications reviewed and reconciled from hospital? Not applicable Does the patient have all medications ordered at discharge? Not applicable Appointments Does the patient have a primary care provider? Yes Nursing Interventions Verified appointment date/time/provider Does the patient have any upcoming specialty appointments? No Self Management Patient Teaching Does the patient have access to their discharge instructions? Yes What is the patient's perception of their health status since discharge? Same Wrap Up Wrap Up Additional Comments Pt presented to [facility] ER yesterday for headache/eye pain and some blurred vision. CT head was negative for acute findings. EKG and CXR nonacute. Urine negative. COVID/Flu/RSV negative. Pt was given fluids, Benadryl, Zofran, and Toradol and re-evaluated. She was dischargedhome in stable condition and advised to follow up with PCP. No new orders. Call End Time 1330 Review of Systems: Review of Systems Problem List: Patient Active Problem List Diagnosis Chronic pain Disorder of intervertebral disc of lumbar spine Anxiety attack (CMS/HCC) Arthritis Bipolar 1 disorder (CMS/HCC) Complex regional pain syndrome I, unspecified Contracture of joint of right hand Dysphagia Epigastric pain Heartburn Hypertension (CMS/HCC) Hypothyroidism (CMS/HCC) Insomnia Irritable bowel syndrome Kidney stone Mixed anxiety and depressive disorder Neuropathy Solitary pulmonary nodule Stage 3a chronic kidney disease (HCC) (CMS/HCC) Status post hysterectomy Urinary hesitancy Complex regional pain syndrome type 1 of left lower extremity Dislocation of finger Gastroesophageal reflux disease without esophagitis S/P Yefri fundoplication (without gastrostomy tube) procedure Fatty liver Past Medical History: Past Medical History: Diagnosis Date Allergies Anxiety Asthma (CMS/HCC) Bipolar I disorder (CMS/HCC) 2006 Bronchitis Chicken pox CRPS (complex regional pain syndrome ) Endometriosis Gastritis 2010 GERD (gastroesophageal reflux disease) 2010 H/O chest tube placement 2005 H/O knee surgery x2 H/O psychiatric care Hiatal hernia History of medical treatment 2006 Exp lap with removal R ovary & tube History of migraine headaches History of migraine headaches History of surgical removal of ganglion cyst 2004 Hypertension (CMS/HCC) Hypothyroidism, unspecified (CMS/HCC) Irritable bowel disease Kidney stones Nerve damage to left ankle Pneumothorax 2005 Reflex sympathetic dystrophy S/P ureteral stent placement urinary stent placement X2 Family History: Family History Problem Relation Name Age of Onset Hypertension Mother Marita Colon cancer Mother Marita Hyperlipidemia Mother Marita Migraines Mother Marita Dementia Mother Marita Pulmonary embolism Mother Marita Diabetes Mother Marita Lung cancer Father Gonzales Hypertension Father Gonzales Peripheral vascular disease Father Gonzales Mental illness Sister No Known Problems Sister Breast cancer Neg Hx Ovarian cancer Neg Hx Allergies: Allergies Allergen Reactions Sulfa Antibiotics Augmentin [Amoxicillin-Pot Clavulanate] Rash Imitrex [Sumatriptan] Palpitations Reglan [Metoclopramide] Anxiety Surgical History: Past Surgical History: Procedure Laterality Date ABDOMINAL SURGERY APPENDECTOMY 2003 CHOLECYSTECTOMY 2016 COLONOSCOPY 08/21/2018 EGD 2009 with biopsy - GERD EGD 2009 with biopsy- Gastritis FINGER SURGERY Right 5th finger GANGLION CYST EXCISION X2 left wrist HM MAMMOGRAPHY 12/31/2018 benign HYSTERECTOMY 2005 LITHOTRIPSY YEFRI FUNDOPLICATION 2013 NE MEDICATION MANAGEMENT Bipolar I - ongoing PROMETHAZINE LEVEL 2010 phenergan SHOULDER ARTHROSCOPY Left 12/2017 TOTAL ABDOMINAL HYSTERECTOMY W/ BILATERAL SALPINGOOPHORECTOMY 2005 Social History: Social Drivers of Health Tobacco Use: Low Risk (04/20/2024) Received from [facility] Patient History Smoking Tobacco Use: Never Smokeless Tobacco Use: Never Passive Exposure: Not on file Alcohol Use: Not At Risk (04/11/2022) Received from [facility] Frequency of Alcohol Consumption: Never Average Number of Drinks: Patient does not drink Frequency of Binge Drinking: Never Financial Resource Strain: Low Risk (02/26/2022) Received from [facility], [facility] Overall Financial Resource Strain (CARDIA) Difficulty of Paying Living Expenses: Not very hard Food Insecurity: Not on file Transportation Needs: No Transportation Needs (02/26/2022) Received from [facility], [facility] PRAPARE - Transportation Lack of Transportation (Medical): No Lack of Transportation (Non-Medical): No Physical Activity: Not on file Stress: No Stress Concern Present (02/26/2022) Received from [facility], [facility] [place] [facility] - Occupational Stress Questionnaire Feeling of Stress : Not at all Social Connections: Not on file Intimate Partner Violence: Unknown (11/05/2023) Received from [facility] Humiliation, Afraid, Rape, and Kick questionnaire Fear of Current or Ex-Partner: No Emotionally Abused: Not on file Physically Abused: Not on file Sexually Abused: Not on file Depression: At risk (01/14/2024) Received from [facility] PHQ-2 Patient Health Questionnaire-2 Score: 4 Housing Stability: Not on file Health Literacy: Not on file OBJECTIVE: Visit Vitals Smoking Status Never Physical Exam Constitutional: Appearance: Normal appearance. HENT: Head: Normocephalic and atraumatic. Nose: Congestion present. Mouth/Throat: Pharynx: Oropharyngeal exudate and posterior oropharyngeal erythema present. Eyes: Extraocular Movements: Extraocular movements intact. Pupils: Pupils are equal, round, and reactive to light. Cardiovascular: Rate and Rhythm: Normal rate and regular rhythm. Pulses: Normal pulses. Heart sounds: Normal heart sounds. Pulmonary: Effort: Pulmonary effort is normal. Breath sounds: Normal breath sounds. Abdominal: General: Bowel sounds are normal. Palpations: Abdomen is soft. Musculoskeletal: Cervical back: Normal range of motion and neck supple. No tenderness. Neurological: Mental Status: She is alert. No results found for this or any previous visit (from the past 4 weeks). ASSESSMENT AND PLAN: Assessment/Plan Diagnoses and all orders for this visit: Dizzy spells Reviewed ER notes including labs and imaging. Pt does seem to be improved. Advised to continue current meds and rtc if problem recurs Bipolar disorder, unspecified (CMS/HCC) Problem is stable, will continue with current treatment plan. Call or return to clinic if any changes occur Chronic kidney disease, stage 3b (HCC) (CMS/HCC) Reviewed labs and/or imaging at ov today. Will continue current treatment regimen and follow up at next scheduled visit unless problems arise. Complex regional pain syndrome type 1, affecting unspecified site - pregabalin (Lyrica) 200 MG capsule; Take 1 capsule (200 mg) by mouth in the morning and 1 capsule(200 mg) before bedtime. Disorder of intervertebral disc of lumbar spine - pregabalin (Lyrica) 200 MG capsule; Take 1 capsule (200 mg) by mouth in the morning and 1 capsule(200 mg) before bedtime. Chronic pain syndrome - pregabalin (Lyrica) 200 MG capsule; Take 1 capsule (200 mg) by mouth in the morning and 1 capsule(200 mg) before bedtime. Neuropathy - pregabalin (Lyrica) 200 MG capsule; Take 1 capsule (200 mg) by mouth in the morning and 1 capsule(200 mg) before bedtime. Acute recurrent maxillary sinusitis Patient advised to increase fluid intake, use otc guiafenesin, and humidify the air. May use tylenol as needed. F/u if not improving. To ER or Urgent Care if symptoms worsen or fever >101.5. Treatment options discussed. All questions answered. Patient voiced understanding. - fluticasone (Flonase) 50 MCG/ACT nasal spray; Administer 2 sprays into each nostril Daily Shake gently. Before first use, prime pump. After use, clean tip and replace cap. - azithromycin (Zithromax) 250 MG tablet; 2 pills orally today, then 1 pill orally daily for 4 days Urinary incontinence, unspecified type Patient advised to return if symptoms worsen and/or persist despite treatment. 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 Current Outpatient Medications: atenolol-chlorthalidone (Tenoretic) 50-25 MG tablet, TAKE 1 TABLET BY MOUTH EVERY DAY, Disp: 90 tablet, Rfl: 2 azithromycin (Zithromax) 250 MG tablet, Take 2 tablets on day 1, then take 1 tablet for 4 days by mouth, Disp: 6 tablet, Rfl: 0 nzhyanydznxsguk-chncolakkwzaitf-DU 30-2-10 MG/5ML syrup, Take 10 mL by mouth 4 (four) times a day as needed for cough or congestion (q6hrs), Disp: 200 mL, Rfl: 0 mjfwzvspsz-zvscjxxbxflyg-mzzaeloy (Fioricet) 50-300-40 MG capsule, TAKE 1 CAPSULE BY MOUTH EVERY 4 HOURS NEEDED FOR HEADACHES, Disp: 40 capsule, Rfl: 0 famotidine (Pepcid) 40 MG tablet, Take 1 tablet (40 mg) by mouth Daily (Patient not taking: Reported on 12/22/2023), Disp: 30 tablet, Rfl: 5 hydrOXYzine pamoate (Vistaril) 25 MG capsule, Take 1 capsule (25 mg) by mouth every 8 (eight) hoursif needed for anxiety, Disp: 30 capsule, Rfl: 5 lamoTRIgine (LaMICtal) 200 MG tablet, Take 1 tablet (200 mg) by mouth Daily, Disp: 90 tablet, Rfl: 3 ondansetron ODT (Zofran-ODT) 4 MG disintegrating tablet, DISSOLVE 1 TABLET ON THE TONGUE EVERY 8 HOURS NEEDED, Disp: 18 tablet, Rfl: 2 oxaprozin (Daypro) 600 MG tablet, TAKE 1 TABLET BY MOUTH EVERY MORNING AND 1 TABLET BEFORE BEDTIME,Disp: 60 tablet, Rfl: 3 oxyCODONE-acetaminophen (Percocet) 5-325 MG tablet, Take 1 tablet by mouth in the morning., Disp: ,Rfl: PARoxetine (Paxil) 30 MG tablet, Take 2 tablets (60 mg) by mouth Daily, Disp: 180 tablet, Rfl: 3 pregabalin (Lyrica) 200 MG capsule, Take 1 capsule (200 mg) by mouth in the morning and 1 capsule (200 mg) before bedtime., Disp: 60 capsule, Rfl: 0 tiZANidine (Zanaflex) 4 MG tablet, TAKE 1 TABLET BY MOUTH THREE TIMES A DAY NEEDED, Disp: 270 tablet, Rfl: 1 valACYclovir (Valtrex) 500 MG tablet, TAKE 1 TABLET BY MOUTH EVERY MORNING 1 IN THE EVENING & 1AT BEDTIME FOR 7 DAYS, Disp: 21 tablet, Rfl: 1 documented in this encounterUniversity [id number] Radiology Diagnostic study [facility] [address] [place] [address] CT Scan Report Signed Patient: Tasneem Camarillo MR#: [id number] : 1975 Acct:[id number] Age/Sex: 49 / F ADM Date: 5 Loc: ER Room: Type: PRE ER Attending Dr: Copies to: ROBINA SELLERS~ Ordering Provider: ROBINA SELLERS Date of Service: 05/25/24 CT/CT head/brain wo con: Blurry vision CT BRAIN WITHOUT CONTRAST: CLINICAL HISTORY: Blurry vision. Bilateral eye pain. COMPARISON: None TECHNIQUE: Contiguous axial unenhanced images were obtained through the brain. This CT exam was performed using one or more following dose reduction techniques: Automated exposure control, adjustmentof the mA and/or kV accordingto patient size, or use of iterative reconstruction [...] ABNORMALITY. Impression dictated by: Roel Curtis Jr., DJermanOJerman05/25/2024 2:41 PM Dictation Location: [place] [address] Transcribed By: [facility] 05/25/24 1441 Dictated By: Roel Curtis Jr, DO 05/25/24 1441 Signed By: 05/25/24 1441 [facility]02-11-2025 NoteOrthopedic Surgery 01/07/2024 Small Finger Hardware Removal - [...] she has any troubles in the meantime. [facility]01-28-2025 Evaluation note* Diagnosis Onset Date Resolution Status Admit Date Acute maxillary sinusitis, unspecified acuteJanuary 2024 1:05pm [facility] Work Phone: 1(951) 182-672611-06-2024 NoteOrthopedic Surgery 01/07/2024 Small Finger Hardware Removal - [...] see her back in the clinic 3 months.[facility]10-30-2024 Note Patient: Tasneem Camarillo Procedure Summary Date: 01/07/24 Room / Location: [facility] OR [address] [place] [address] OR Anesthesia Start: 1022 Anesthesia Stop: 111 Procedures: Small Finger Hardware Removal (Right: Little Finger) Ring Finger Trigger Release (Right: Ring Finger) Diagnosis: Painful orthopaedic hardware (CMS/HCC) (Painful orthopaedic hardware (CMS/HCC) [T84.84XA]) Surgeons: Vadim Dorado MD Responsible Provider: Franklin Nugent MD Anesthesia [...] PACU per anesthesia protocol. No notable events documented.[facility]10-30-2024 Note Patient: Tasneem Camarillo Procedure Information Anesthesia Start Date/Time: 01/07/241022 Procedures: Small Finger Hardware Removal (Right: Little Finger) Ring Finger Trigger Release (Right: Ring Finger) - C-Arm, MEDARTIS PLATE AND SCREWS IN Location: [address] Surgeons: Vadim Dorado MD Relevant Problems Anesthesia (-) History of [...] discussed with CAA and resident. Additional Equipment RequestsUnFulton [facility]10-30-2024 Note Patient: Tasneem Camarillo Procedure Summary Date: 01/07/24 Room / Location: [facility] OR [address] [place] [address] G[place] OR Anesthesia Start: 1023 Anesthesia Stop: Procedures: Small Finger Hardware Removal (Right: Little Finger) Ring Finger Trigger Release (Right: Ring Finger) Diagnosis: Painful orthopaedic hardware (CMS/HCC) (Painful orthopaedic hardware (CMS/HCC) [T84.84XA]) Surgeons: Vadim Dorado MD Responsible Provider: Franklin Nugent MD Anesthesia Type: regional ASA Status: Not recorded Anesthesia Post [facility]: nasal cannula Oxygen Flow (L/min): 3 Patient Monitor: direct observation Transport: uneventful Patient condition is: [facility]Way[facility] Note Peripheral Block Patient location during procedure: pre-op Start time: 01/07/2024 10:08 AM End time: 01/07/2024 10:23 AM Reason for block: primary anesthetic Staffing Performed: resident/HEAVY EQUIPMENT OPERATING ENGINEER/CAA Anesthesiologist: Nathaniel Bhatia MD Resident/HEAVY EQUIPMENT OPERATING ENGINEER: José Vee MD Preanesthetic Checklist Completed: patient [...] Heart rate change: no Slow fractionated injection: yesUnFulton [facility] Center10-14-2024 History of Present illness Narrative* PAMELA Rodas - 12/22/2023 11:20 AM EDT Images from the original note were not included. Subjective Patient ID: Tasneem Camarillo is a 48 y.o. female who presents for Urinary Retention (Pt presents today for urinary retention. Pt states she feels like she constantly has to urinate. Complaining of odor, flank and groin pain. Pt takes oxyurosis for pain. Pt is unsure of onset but has been awhile. /Ptbelieves she has pink eye. Pt has drainage from her eyes, this has been a burns color. States her eyes are red and swollen. Pt states she has been using eye drops but this hasn't seemed to help. ). UTI This is a new problem. Episode onset: unsure. The problem is unchanged. Associated symptoms includepain. Pertinent negatives include no hematuria. The pain [...] highly contagious. Use the drops one dose beyondthe disappearance of the discharge and erythema. Change/wash pillow cases for the next 2-3 nights. URI, acute - azithromycin (Zithromax) 250 MG tablet; Take 2 tablets on day 1, then take 1 tablet for 4 days bymouth - kergzwhcbqrtjus-efcdhhxwmbsthwu-ZI 30-2-10 MG/5ML syrup; Take 10 mL by mouth 4 (four) times a dayas needed for cough or congestion (q6hrs) Treatment [...] Negative Negative - Positive documented in this encounterUniversity [id number] NoteHNO ID: [id number] Author: NICANOR FERRIS MD Service: ? Author Type: Physician Type: Progress Notes Filed: 07/24/2023 14:31 Note Text: I have read and reviewed the documentation and agree. I wish to add the followingI wish to add the following findings which will be communicated back to the requesting physician. Nicanor Ferris MD [facility] STAFF PHYSICIAN NOTE OF PERSONAL [...] Nicanor Ferris MD DATE OF SERVICE: 06/25/[address] [place], [place] [id number] History of Present illness Narrative * Nicanor Ferris MD - 07/24/2023 2:29 PM EDT I have read and reviewed the documentation and agree. I wish to add the followingI wish to add the following findings which will be communicated back to the requesting physician. Nicanor Ferris MD [facility] STAFF PHYSICIAN NOTE OF PERSONAL [...] I have discussed the case and management ofthe patient's care. STAFF PHYSICIAN: Nicanor Ferris MD DATE OF SERVICE: 06/25/23 530 PM * Rachana Pham MD - 06/25/2023 2:52 PM EDT Images from the original note were not included. [facility] THORACIC SURGERY OUTPATIENT CONSULT NOTE Tasneem Camarillo [id number] Requesting Provider: Self Thoracic Physician: Nicanor Ferris [...] Ht 157.5 cm (5' 2 ) Wt 63.4kg (139 lb 12.8 oz) SpO2 98% BMI 25.57 kg/m Neck: supple Resp: Clear Cardiovascular: rrr GI: soft ttp in subxiphoid region, nondistended Neurological/Psychiatric: Oriented to time, place & person Additional relevant findings: DATA: Radiology: CT CHEST WO IVCON Result Date: 06/25/2023 * * *Final Report* * * DATE OF EXAM: Jun 25 2023 12:26PM [facility] 0541 - CT CHEST WO IVCON / [...] all measuring <6 mm. Examples include: Left lowerlobe 0.3 cm nodule on image 121. Right lower lobe 0.2 cm nodule on image 117. Lingula, 0.3 to 0.2 cm subpleural nodules on images 112 and 114. There is mild bilateral apical scarring. The central airways are patent. Pleural space: No pleural effusion. No pleural thickening. Lower neck, lymph nodes,and mediastinum: The imaged thyroid gland is normal. No lymphadenopathy in the supraclavicular, axillary, mediastinal, or hilar regions. Heart, pericardium, and thoracic vessels: The thoracic aorta and main pulmonary artery are normal in caliber. The cardiac chambers are normal in size. No coronaryartery atherosclerotic calcifications are noted, although the study [...] nodules in both lungs are of doubtful clinicalsignificance. Incidental Finding: Follow-up Acuity: Incidental Finding: Solid: >8 but <15 mm R outing Code: RI_1 Recommendation: Consult to Lung Nodule Clinic - [id number] Time Frame: at the discretion of the clinical team. Comments: Follow-up for this incidentally detected lung nodule with PET/CT or Biopsy within 4 weeks, or Chest CT exam in 3 months is recommended. --END OF FINDING-- Kick Press Setter: TARYN Transcribe Date/Time: Jun 25 2023 12:38P Dictated by : TALYA MCCORMACK MD This examination was interpreted and the report reviewed and electronically signed by: TALYA MCCORMACK MD on Jun 25 2023 12:44PM EST I have personally reviewed the following images/data: CT scan, upper GI Outside Paper Medical Records Review personally performed by: documented in this encounterAdena Health System05-14-2024 NoteHNO ID: [id number] Author: ?, ?, ? Service: ? Author Type: ? Type: Progress Notes Filed: 07/22/2023 14:09 Note Text: Incidental Lung Nodule Enrollment Outreach attempt: 3rd Attempt Outreach status: Complete Enrolled in Lung Nodule program: No Declined reason: Other Lung Nodule Program [place] [facility] History of Present illness Narrative* Josephine Culver - 07/22/2023 2:08 PM EDT Incidental Lung Nodule Enrollment Outreach attempt: 3rd Attempt Outreach status: Complete Enrolled in Lung Nodule program: No Declined reason: Other Lung Nodule Program Location: [place] documented in this encounterAdena Health System05-14-2024 NotePatient Outreach (MIRYAM) TASNEEM CAMARILLO ([id number]) 1975 F Date Time Provider Department 07/22/23 JOSEPHINE CULVER During your visit today, we recorded the following information about you: Josephine Culver 07/22/2023 2:09 PM Signed Incidental Lung Nodule Enrollment Outreach attempt: 3rd Attempt Outreach status: Complete Enrolled in Lung Nodule program: No Declined reason: Other Lung Nodule Program Location: [place] Allergies As of Date: 07/22/2023 Noted Allergy [...] Text Encounter Status:Closed by JOSEPHINE CULVER on 07/22/23[facility] NotePatient Outreach (MIRYAM) TASNEEM CAMARILLO ([id number]) 1975 F Date Time Provider Department 07/10/23 JOSEPHINE CULVER During your visit today, we recorded the following information about you: Josephine Culver 07/10/2023 9:04 AM Signed Incidental Lung Nodule Enrollment Outreach attempt: 2nd Attempt Outreach status: Complete Enrolled in Lung Nodule program: Referred Lung Nodule outreach: Needs outreach Lung Nodule Program Location: [place] Two letter attempts Allergies As of Date: [...] Text Encounter Status:Closed by JOSEPHINE CULVER on 07/10/23[facility] 07-10-2023 NoteHNO ID: [id number] Author: ?, ?, ? Service: ? Author Type: ? Type: Progress Notes Filed: 07/10/2023 09:04 Note Text: Incidental Lung Nodule Enrollment Outreach attempt: 2nd Attempt Outreach status: Complete Enrolled in Lung Nodule program: Referred Lung Nodule outreach: Needs outreach Lung Nodule Program Location[facility] [place] [facility] History of Present illness Narrative* Josephine Culver - 07/10/2023 9:03 AM EDT Incidental Lung Nodule Enrollment Outreach attempt: 2nd Attempt Outreach status: Complete Enrolled in Lung Nodule program: Referred Lung Nodule outreach: Needs outreach Lung Nodule Program Location: [place] Two letter attempts documented in this encounterAdena Health System04-24-2024 NoteHNO ID: [id number] Author: MALIA MEADOWS PA-C Service: ? Author Type: Physician [place] [employer] Type: Progress Notes Filed: 07/02/2023 15:44 Note Text: Incidental Lung Nodule Enrollment Outreach attempt: 1st Attempt Outreach status: Left message Enrolled in Lung Nodule program: Referred Lung Nodule outreach: Needs outreach Lung Nodule Program Location: [place] Left Message to call back to schedule. Big nodule letter sent. [facility] History of Present illness Narrative* Malia Meadows PA-C - 07/02/2023 3:38 PM EDT Incidental Lung Nodule Enrollment Outreach attempt: 1st Attempt Outreach status: Left message Enrolled in Lung Nodule program: Referred Lung Nodule outreach: Needs outreach Lung Nodule Program Location: [place] Left Message to call back to schedule. Big nodule letter sent. Malia Meadows PA-C documented in this encounterAdena Health System04-24-2024 NoteHNO ID: [id number] Author: AIDEE VILLAVICENCIO APRN.CALENDER MACHINE OPERATOR Service: ? Author Type: Nurse Practitioner Type: Progress Notes Filed: 07/02/2023 12:46 Note Text: [facility] - OUTPATIENT THORACIC SURGERY CLINIC NOTE PT NAME: Tasneem Camarillo [facility] NO: [id number] THORACIC SURGEON: Nicaonr Ferris M.D. DATE OF SERVICE: July 02, [...] Local GI for symptom management Aidee Villavicencio APRN.[facility]04-24-2024 NotePatient Outreach (PMNA11) TASNEEM CAMARILLO ([id number]) 1975 F Date Time Provider Department 07/02/23 MALIA MEADOWS PMNA11 During your visit today, we recorded the following information about you: Malia Meadows PA-C 07/02/2023 3:44 PM Signed Incidental Lung Nodule Enrollment Outreach attempt: 1st Attempt Outreach status: Left message Enrolled in Lung Nodule program: Referred Lung Nodule outreach: Needs outreach Lung Nodule Program Location: [place] Left Message to call back to schedule. [...] Text Encounter Status:Closed by MALIA MEADOWS on 07/02/23[facility]04-24-[facility] History of Present illness Narrative* Aidee Villavicencio, KAILA.CALENDER MACHINE OPERATOR - 07/02/2023 12:38 PM EDT [facility] - OUTPATIENT THORACIC SURGERY CLINIC NOTE PT NAME: Tasneem Camarillo [facility] NO: [id number] THORACIC SURGEON: Nicanor Ferris M.D. DATE OF SERVICE: July 02, 2023 PRINCIPAL DX: Epigastric pain SURGICAL HX: NONE - Thoracic REASON FOR VISIT: Follow up after tests, visit to finalize surgical treatment plan HPI: Tasneem Camarillo is a 48 year old female with a history of bipolar disorder, hypertension, lap choleand GERD with paraesophageal hernia s/p laparoscopic hiatal [...] Ht 157.5 cm (5' 2 ) Wt 63.9kg (140 lb 14.4 oz) SpO2 100% BMI [...] Local GI for symptom management Aidee Villavicencio APRN.CALENDER MACHINE OPERATOR documented in this encounterAdena Health System04-24-2024 NoteQ3 Patient Name: Tasneem Camarillo Procedure Date: 07/02/2023 8:43 AM Date of : 1975 Admit Type: Outpatient Age: 48 Gender: Female Note Status: Finalized Attending MD: Nicanor Ferris MD, [id number] Procedure: Upper GI endoscopy Indications: Dysphagia Providers: [...] the patient. Procedure Code(s): --- Professional --- 67740, Esophagogastroduodenoscopy, flexible, transoral; with biopsy, single or multiple Diagnosis Code(s): --- Professional --- Q39.9, Congenital malformation of esophagus, unspecified K22.4, Dyskinesia of esophagus K29.70, Gastritis, unspecified, without bleeding R13.10, Dysphagia, unspecified CPT copyright 2020 [employer]. All rights reserved. Attending Participation: I personally performed the entire procedure without the assistance of a fellow, resident or university administrative assistant. Scope In: 8:57:06 AM Scope Out: 9:06:50 AM MD Nicanor Purdy MD 07/02/2023 9:13:36 AM This report has been signed electronically by Nicanor Ferris MD Number of Addenda: 0 Note Initiated On: 07/02/2023 8:43 [facility]04-24-2024 Nurse Note* Alisha Canela LPN - 07/02/2023 9:22 AM EDT AMBULATORY PATIENT EDUCATION NOTE TOPIC: GI PROCEDURES: [...] / FAMILY RESPONSE: Verbalizes understanding of: WORSENING CONDITION- Signs and symptoms of aworsening condition that warrant a call to the physician FOLLOW-UP PLAN: Patient instructed to call with any further issues SUPPLEMENTAL MATERIAL: Procedure Discharge Instructions REFERRAL (RECOMMENDATION): None [facility]-24-[facility] Nurse Note* Alisha Canela LPN - 07/02/2023 9:22 AM EDT AMBULATORY PATIENT EDUCATION NOTE TOPIC: GI PROCEDURES: [...] / FAMILY RESPONSE: Verbalizes understanding of: WORSENING CONDITION- Signs and symptoms of aworsening condition that warrant a call to the physician FOLLOW-UP PLAN: Patient instructed to call with any further issues SUPPLEMENTAL MATERIAL: Procedure Discharge Instructions REFERRAL (RECOMMENDATION): None * Taty Sheridan RN - 07/02/2023 8:13 AM EDT PRE OP LEARNING ASSESSMENT PROCEDURE/SURGERY: GI PROCEDURES: EGD READINESS TO LEARN COGNITIVE ABILITY: Alert and oriented MOTIVATION TO LEARN: Interested FAMILY SUPPORT: High - Very involved in pt care PATIENT LEARNS BEST BY: Individual Instruction Verbal Instruction FACTORS AFFECTING LEARNING: None PHYSICAL LIMITATIONS AFFECTING LEARNING: Limited Mobility Electronically Signed By: Taty Sheridan RN BSN In Department: GASTROENTEROLOGY * Taty Sheridan RN - 07/02/2023 8:12 AM EDT 0812: Dr. Madeline Jarrell paged: Patient Tasneem Camarillo in pre bed 16: Patient states she is US only IV access. Are you able to help me obtain IV access? Thanks! Casandra 0825: Dr. Jarrell paged: Patient Tasneem Camarillo in pre bed 16: Patient ready for US IV access, thanks! Casandra Sheridan RN BSN documented in this encounterAdena Health System04-24-2024 NoteQ3 Patient Name: Tasneem Camarillo Procedure Date: 07/02/2023 8:43 AM Date of : 1975 Admit Type: Outpatient Age: 48 Gender: Female Note Status: Finalized Attending MD: Nicanor Ferris MD, [id number] Procedure: Upper GI endoscopy Indications: Dysphagia Providers: [...] contact number available for (more content not included)...[id number] Nurse Note* Taty Sheridan RN - 07/02/2023 8:13 AM EDT PRE OP LEARNING ASSESSMENT PROCEDURE/SURGERY: GI PROCEDURES: EGD READINESS TO LEARN COGNITIVE ABILITY: Alert and oriented MOTIVATION TO LEARN: Interested FAMILY SUPPORT: High - Very involved in pt care PATIENT LEARNS BEST BY: Individual Instruction Verbal Instruction FACTORS AFFECTING LEARNING: None PHYSICAL LIMITATIONS AFFECTING LEARNING: Limited Mobility Electronically Signed By: Taty Sheridan RN BSN In Department: GASTROENTEROLOGY [facility]04-24-2024 Nurse Note* Taty Sheridan RN - 07/02/2023 8:12 AM EDT 0812: Dr. Madeline Jarrell paged: Patient Tasneem Camarillo in pre bed 16: Patient states she is US only IV access. Are you able to help me obtain IV access? Thanks! Casandra 3044: Dr. Jarrell paged: Patient Tasneem Camarillo in pre bed 16: Patient ready for US IV access, thanks! Casandra Sheridan ASSEMBLY STOCK SUPERVISOR [facility]04-17-2024 NoteHNO ID: [id number] Author: RACHANA PHAM MD Service: ? Author Type: Resident Type: Progress Notes Filed: 07/24/2023 14:31 Note Text: [facility] THORACIC SURGERY OUTPATIENT CONSULT NOTE Tasneem Camarillo [id number] Requesting Provider: Self Thoracic Physician: Nicanor Ferris [...] DATE OF EXAM: Jun 25 2023 12:26PM [facility] 0541 - CT CHEST WO IVCON / [...] previous imaging if a (more content not included)...[facility]04-17-2024 NoteHNO ID: [id number] Author: KYMBERLY PALMA RT([place]) Service: Radiology Author [...] PATIENT PRESENTS WITH AN IMPLANTABLE OR ATTACHED LIVESTOCK COUNTER: No RADIOLOGY DEPARTMENT: CT; Exam(s) Completed: Chest PERIPHERAL IV DATA: Not applicable SIGNED BY: RT Trinh(R) June 25, 2023 12:22 [facility]04-17-2024 History of Present illness Narrative* Kymberly Palma RT(R) - 06/25/2023 12:30 PM EDT Radiology Service Progress Note PATIENT NAME: Tasneem Camarillo DATE OF SERVICE: June 25, 2023 TIME: 12:22 PM PATIENT IDENTITY VERIFICATION COMPLETED USING TWO (2) IDENTIFIERS: Name and Date of confirmedby patient verbally and Name and Date of confirmed by identification band. FALL SCREENING: Has the patient had 2 falls in the last year or 1 fall with injury or currently using an Ambulatory Assistive Device (Walker, Cane, Wheelchair, Crutches, etc.)? No PATIENT GENDER DATA: Female. status: : No status: NO. PATIENT RELEVANT IMPLANT DATA REVIEWED: Yes PATIENT PRESENTS WITH AN IMPLANTABLE OR ATTACHED LIVESTOCK COUNTER: No RADIOLOGY DEPARTMENT: CT; Exam(s) Completed: Chest PERIPHERAL IV DATA: Not applicable SIGNED BY: RT Trinh(R) June 25, 2023 12:22 PM documented in this encounterAdena Health System03-14-2024 Miscellaneous Notes* Telephone Encounter - Liz Cho - 05/22/2023 8:52 AM EDT received outside 2013 operative note from [facility] ([facility]).routing to [facility] for review. Liz Hines * Telephone Encounter - Liz Cho - 05/20/2023 12:04 PM EDT Received a call back from [facility] in [place] on records requested (operative reports from 2013= Yefri fundoplication). Edith from the [place] [facility] de[facility] was unable to fax the records because the pt last name didn't match. I called our patient and left a requesting a call back with that information to proceed with getting the records needed for the surgeon. [place] Psychiatry Teacher documented in this encounterAdena Health System03-11-2024 Miscellaneous Notes* Telephone Encounter - Elana Cfofman RN - 05/19/2023 10:36 AM EDT Images from the original note were not included. Thoracic Surgery Consultation - review of records for appointment scheduling Patient is being referred to Nicanor Ferris MD, PhD by for Epigastric Pain, Outside hospital records scanned Procedures: Yefri Fundoplication [place] op report 2013 [facility] ) - ask Install Technician to obtain Imaging CT (chest/abd requested) mri leena 04/28/2023 UGI: 04/23/2023 esophagram Cardiopulmonary Testing PFT's/Six: Cardiac: Office Notes/Consults 05/13/23 [facility] History of: No family history on file. No past medical history on file. No past surgical history on file. Request consult with dr barrington ordoñez ct chest /abd Elana Coffman, JAGDISH * Telephone Encounter - Liz Cho - 05/19/2023 8:56 AM EDT LOCAL PATIENT Received Fax from Ildefonso Simmons/ [...] office for scheduling. Please call pt at [phone]. Patient was informed consultation could be at [place] or [facility] [place]: No Patient Registration: Registration complete/updated: no Insurance card(s) scanned in [facility] with in the past year: No Pt's [employer] is inactive. Ok to communicate to pt via [employer] not asked Medical Records: Records in [facility] (internal [facility] records): No Imaging in [facility] (internal [facility] records): No Care Everywhere - [...] for triage Liz Hines documented in this encounterAdena Health System01-29-2024 Hospital Discharge instructions Patient Education 04/07/2023 10:44:58 Colonoscopy, Adult [...] including vitamins, herbs, eye drops, creams, and athw-lij-shvaxam medicines. Any problems you or family members [...] provider about eating or drinking restrictions, which mayinclude: A few days before the procedure: ?Follow [...] the procedure, or within the time period thatyour health care provider recommends. Bowel prep If you were prescribed a bowel prep to take by mouth (orally) to clean out your colon: Take it as told by your health care provider. Starting the day before your procedure, you will needto drink a large amount of liquid medicine. [...] supplements. This is especially important if you aretaking iron supplements, diabetes medicines, or blood thinners. Taking medicines such as aspirin and ibuprofen. These medicines can thin your blood. Do not take these medicines unless your health care provider tells you to take them. Taking dhps-scp-hbpsujn medicines, vitamins, herbs, and supplements. General instructions Ask your health care provider what steps will be taken to help prevent infection. These may includewashing skin with a germ-killing soap. If you [...] under a microscope (biopsy). The tissue may besent to a lab for testing if any [...] blood oxygen level will be monitored until youleave the hospital or clinic. You may have a small amount of blood in your stool. You may pass gas and have mild cramping or bloating in your abdomen. This is caused by the air thatwas used to open your colon during the [...] end is inserted into the anus and thenpassed into all parts of the large intestine. This information is not intended to replace advice given to you by your health care provider. Make sure you discuss any questions you have with your health care provider. Document Revised: 02/18/2022 Document Reviewed: 10/17/2021 [employer] Patient Education 2022 [employer]. Follow Up Care 03/31/2023 10:10:29 With:Malina Castaneda CNP Address: When:1 to 2 weeks Comments:Following EGD. [facility] [id number] NotePROCEDURE: XR FINGER MIN 2 VIEWS HISTORY: Pain [...] authenticated by: JUAN M SARGENT Date: 2021-10-31 15:15[facility]08-24-2022 NotePROCEDURE: XR FINGER MIN 2 VIEWS HISTORY: Pain [...] authenticated by: JUAN M SARGENT Date: 2021-10-31 13:08[facility]08-11-2022 NoteCONSULTATION CONSULTATION DATE: 10/18/2021 HISTORY OF PRESENT ILLNESS: [...] understanding and agrees with the plan of care.[id number] NoteCONSULTATION CONSULTATION DATE: 09/06/2021 This is a pleasant [...] followed up in the clinic post procedure. [facility] Signed and Approved by: CHRISTIAN WINN . 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 The patient currently takes Oxaprozin 600 mg [...] magnesium glycinate q.p.m. CC: Juancarlos Pepper D.O. [facility] Signed and Approved by: DR SCAR LAZARO . 07/17/2021 10:05:00[facility] Future Appointments Appointment Date:04/15/2023 08:00:00 AM Scheduled Provider: Location:.ULTRASOUND Appointment Type:US Abdominal/Pelvis (FT) Appointment Date:04/16/2023 08:30:00 AM Scheduled Provider: Location:[facility] Appointment Type:Surgery FT Appointment Date:04/23/2023 09:30:00 AM Scheduled Provider: Location:.XRAY Appointment Type:XR MBS Adult (FT) Appointment Date:04/23/2023 10:00:00 AM Scheduled Provider: Location:.XRAY Appointment Type:XR Esophagus/Upper GI/Small Bowel (FT) Future Scheduled Tests Radiology* US Liver 04/15/23 * XR Esophagus 04/23/23 * XR Adult Swallowing Function w/ Video: Evaluate Pt, Develop a Plan of Care & Implement Plan 04/23/23 [facility] Evaluation + Plan note Future Appointments Appointment Date:04/23/2023 09:30:00 AM Scheduled Provider: Location:FT.XRAY Appointment Type:XR MBS Adult (FT) Appointment Date:04/23/2023 10:00:00 AM Scheduled Provider: Location:.XRAY Appointment Type:XR Esophagus/Upper GI/Small Bowel (FT) Future Scheduled Tests Radiology* MRI Cholangiogram Pancreatography (mrcp) 04/16/23 * XR Esophagus 04/23/23 * XR Adult Swallowing Function w/ Video: Evaluate Pt, Develop a Plan of Care & Implement Plan [facility] App[facility]ments Appointment Date:04/28/2023 05:00:00 PM Scheduled Provider: Location:.MRI Appointment Type:MRI Unlisted Procedures (FT) Future Scheduled Tests Radiology* MRI Cholangiogram Pancreatography (mrcp) 04/28/23 [facility] Diagnosis Constipation, unspecified constipation type- Primary Kidney stone Calculus of kidney documented in this encounter [facility] Work Phone: evaluation noteNo assessment information available [facility] Work Phone: Evaluation note* Diagnosis Complex regional pain syndrome type 1, affecting unspecified site Disorder of intervertebral disc of lumbar spine Chronic pain syndrome Neuropathy Mononeuritis of unspecified site [facility] Epigastric abdominal pain- Primary Abdominal pain, epigastric [facility] Diagnosis Epigastric abdominal pain Abdominal pain, epigastric [facility] Diagnosis Epigastric abdominal pain- Primary Abdominal pain, epigastric [facility]* Diagnosis Epigastric abdominal pain Abdominal pain, epigastric S/P Yefri fundoplication (without gastrostomy tube) procedure Follow-up examination, following unspecified surgery Hypertension, unspecified type documented in this encounter [facility]* Diagnosis Epigastric abdominal pain- Primary Abdominal pain, epigastric S/P Yefri fundoplication (without gastrostomy tube) procedure Follow-up examination, following unspecified surgery [facility] Diagnosis Bacterial conjunctivitis of both eyes- Primary URI, acute Acute upper respiratory infections of unspecified site Need for vaccination Need for prophylactic vaccination and inoculation against unspecified single disease Nephrolithiasis Calculus of kidney [facility] [...] Diagnosis Bipolar affective disorder, remission status unspecified ([facility]) Anxiety and depression ([facility]) [facility]* Diagnosis Dizzy spells- Primary Dizziness and giddiness Bipolar disorder, unspecified (CMS/HCC) Bipolar disorder, unspecified Chronic kidney disease, stage 3b (HCC) (CMS/[facility]) Complex regional pain syndrome type 1, affecting unspecified site Disorder of intervertebral disc of lumbar spine Chronic pain syndrome Neuropathy Mononeuritis of unspecified site Acute recurrent maxillary sinusitis Urinary incontinence, unspecified type [facility]* Diagnosis Bipolar affective disorder, remission status unspecified ([facility]) documented in this [facility]* Diagnosis Unspecified thoracic, thoracolumbar and lumbosacral intervertebral disc disorder documented in [facility]* Diagnosis Complex regional pain syndrome type 1, affecting unspecified site Disorder of intervertebral disc of lumbar spine Chronic pain syndrome Neuropathy Mononeuritis of unspecified site [facility]* Diagnosis Screening mammogram, encounter for- Primary Hormone imbalance Urinary incontinence, unspecified type Encounter for gynecological examination without abnormal finding Encounter for screening for cervical cancer Vaginal atrophy Postmenopausal atrophic vaginitis Other urinary incontinence [facility] in [facility]* Diagnosis Sensation as if bladder still full- Primary Hormone imbalance Urinary incontinence, unspecified type Vaginal atrophy Postmenopausal atrophic vaginitis Other urinary incontinence Yeast infection documented in [facility]* Diagnosis Complex regional pain syndrome type 1, affecting unspecified site Disorder of intervertebral disc of lumbar spine Chronic pain syndrome Neuropathy Mononeuritis of unspecified site documented [facility]* Diagnosis Primary hypertension Unspecified essential hypertension Other chronic pain Bipolar affective disorder, remission status unspecified (HCC) Complex regional pain syndrome type 1, affecting unspecified site Disorder of intervertebral disc of lumbar spine Chronic pain syndrome Neuropathy Mononeuritis of unspecified site Nonintractable headache, unspecified chronicity pattern, unspecified headache type Unspecified thoracic, thoracolumbar and lumbosacral intervertebral disc disorder documented [facility]* Diagnosis Complex regional pain syndrome type 1, affecting unspecified site- Primary Headache Disorder of intervertebral disc of lumbar spine [...] [facility]. She [...] somehow the digit was both fractured and dislocated[facility] Work Phone: History of Present illness NarrativeThe patient presents today for ongoing evaluation of the right small finger flexion contracture. The patient had an injury in the workplace. She developed PIP flexion contracture. She had surgery in [place]. The operative note indicates that the volar plate was released and full extension was achieved. The digit was pinned across the PIP joint for a period of time. It does not sound as though therapy was started until about four weeks postoperative. She experienced return of the flexion contracture. She presents today for ongoing evaluation.-[facility] Work Phone: History of Present illness [...] to improve functional use of hand. [facility] Work Phone: Hospital course Narrative No data available for this section [facility] Hospital Discharge instructions* Attachments The following attachments cannot be sent through Care Everywhere. * Kidney Stone (Armenian) * Constipation (Armenian) [facility] Work Phone: Hospital Discharge instructions Additional Instructions Follow-up with your primary care doctor [facility] to the ED if develop worsening [facility] Work Phone: Hospital Discharge instructions Additional Instructions Follow-up gastroenterology as soon as possible call Friday We will increase your Protonix to 2 times a day and continue Carafate Return if symptoms are worseL[facility] Work Phone: Hospital Discharge instructions No data available for this section [facility] Additional Instructions Follow-up with your primary care doctor Return to develop worsening symptoms or concerns[facility] Work Phone: Progress note No data available for this section [facility] Reason for referral (narrative)* Outpatient Procedure (Routine) - Pending ReviewSpecialtyDiagnoses / ProceduresReferred By Contact [facility] Diagnoses Epigastric abdominal pain Procedures EGD DIAGNOSTIC ESOPHAGOGASTRODUODENOSCOPY TRANSORAL DIAGNOSTIC Nicanor Ferris MD [address] [place] [address] [facility] [place] [address] [place] [address] Referral IDStatusReasonStart DateExpiration DateVisits RequestedVisits [id number] Review Auto-Generated Referral * MRI/CT (Routine) - Pending ReviewSpecialtyDiagnoses / ProceduresReferred By ContactReferred To ContactCT IMAGING Diagnoses Epigastric abdominal pain Procedures CT ABDOMEN WO IVCON CT ABDOMEN W/O CONTRAST Nicanor Ferris MD [address] [place] [address] Ct Imaging [place] [address] Referral IDStatusReasonStart DateExpiration DateVisits RequestedVisits [id number] Review Auto-Generated Referral * MRI/CT (Routine) - Pending ReviewSpecialtyDiagnoses / ProceduresReferred By ContactReferred To ContactCT IMAGING Diagnoses Epigastric abdominal pain Procedures CT CHEST WO IVCON DIAGNOSTIC COMPUTED TOMOGRAPHY THORAX W/O CNTRST Nicanor Ferris MD [address] [place] [address] Ct Imaging [place] [address] Referral IDStatusReasonStart DateExpiration DateVisits RequestedVisits [id number] Review Auto-Generated Referral [facility] for referral (narrative)* Outpatient Procedure (Routine) - ClosedSpecialtyDiagnoses / ProceduresReferred By ContactReferred To [facility] Diagnoses Epigastric abdominal pain Procedures EGD DIAGNOSTIC ESOPHAGOGASTRODUODENOSCOPY TRANSORAL DIAGNOSTIC Nicanor Ferris MD [address] [place] [address] [address] Referral [facility]StatusSent[facility] DateExpiration DateVisits RequestedVisits [id number] Auto-Generated Referral [facility] for visit Narrative* Initial Evaluation, Evaluation and Treatment. * Reason for Referral: ROM small finger PIP. * Referred by Meli Bravo PA-C. [facility] Phone: [facility] for visit Narrative* Outpatient Procedure (Routine) - ClosedSpecialtyDiagnoses / ProceduresReferred By ContactReferred To [facility] Diagnoses Epigastric abdominal pain Procedures EGD DIAGNOSTIC ESOPHAGOGASTRODUODENOSCOPY TRANSORAL DIAGNOSTIC Nicanor Ferris MD [address] [place] [address] [address] Referral IDStatusReasonBloomington DateExpiration DateVisits RequestedVisits [id number] Auto-Generated Referral [facility] Family History No Family History Records Found Mother Name Dates Details Family history of diabetes ashvin miller(V18.0, Z83.3) Status:ActiveFamily history of colon cancer(V16.0, Z80.0) Status:Active Unknown Family Member Name Dates Details Family history of diabetes m ellitus: Mother(V18.0, Z83.3) Status:ActiveFamily history of colon cancer: Mother(V16.0, Z80.0) Status:Active Unknown Family Member Name Dates Details Family history of diabetes m ellitus: Mother(V18.0, Z83.3) Status:ActiveFamily history of colon cancer: Mother(V16.0, Z80.0) Status:Active Unknown Family Member Name Dates Details Family history of diabetes m ellitus: Mother(V18.0, Z83.3) Status:ActiveFamily history of colon cancer: Mother(V16.0, Z80.0) Status:Active Unknown Family Member Name Dates Details Family history of diabetes m ellitus: Mother(V18.0, Z83.3) Status:ActiveFamily history of colon cancer: Mother(V16.0, Z80.0) Status:Active Unknown Family Member Name Dates Details Family history of diabetes m ellitus: Mother(V18.0, Z83.3) Status:ActiveFamily history of colon cancer: Mother(V16.0, Z80.0) Status:Active Unknown Family Member Name Dates Details Family history of diabetes m ellitus: Mother(V18.0, Z83.3) Status:ActiveFamily history of colon cancer: Mother(V16.0, Z80.0) Status:Active Unknown Family Member Name Dates Details Family history of diabetes m ellitus: Mother(V18.0, Z83.3) Status:ActiveFamily history of colon cancer: Mother(V16.0, Z80.0) Status:Active Relationship Condition Age at Onset Recorded Date/T wilma Not Specified Diabetes mellitus Unknown Malignant neoplasm of colonUnknown Relationship Condition Age at Onset Recorded Date/T wilma mother Diabetes mellitus Unknown Malignant neoplasm of colonUnknownfatherDeceasedUnknown Summary Purpose Advance Directives No Advanced Directives Records Found Advance Directive Response Recorded Date/ Time Advance Directives No November 9:50am Advance Directive Response Recorded Date/ Time Advance Directives No November 10:50am Chief Complaint * AccompaniedBy_UH: * PsychChiefComplaintFreeTextNoteForm_UH: * AccompaniedBy_UH: * PsychChiefComplaintFreeTextNoteForm_UH: * AccompaniedBy_UH: * PsychChiefComplaintFreeTextNoteForm_UH: * BWC * Lt ring finger * xrays at Status post injury in the workplace with right small finger proximal interphalangeal fracture/dislocation with proximal interphalangeal joint flexion contracture. Chief Complaint and Reason for Visit Chief Complaint chest pain,upper abd pain Chief Complaint chest pain,upper abd pain stomach pain Chief Complaint Admit Date sinus pressure, ear pain April 06 1:05pm Chief Complaint Admit Date sinus pressure, ear pain April 06 025 1:05pm pressure behind eyes, can't focus May 25, 2024 1:43pm Reason for Visit Admit Date Acute maxillary sinusitis, unspecified J anuary 2024 1:05pm Chief Complaint Admit Date sinus pressure, ear pain April 06 025 1:05pm pressure behind eyes, can't focus May 25, 2024 1:43pm nausea, dizzy, head pain June 12, 2024 4:55pm Reason for Referral SpecialtyDiagnoses / ProceduresReferred By ContactReferred To ContactCT IMAGING Diagnoses Epigastric abdominal pain Procedures CT CHEST WO IVCON DIAGNOSTIC COMPUTED TOMOGRAPHY THORAX W/O CNTRST Nicanor Ferris MD [address] [place] [address] Ct Imaging [place] [address] Referral IDStatusReasonStart DateExpiration DateVisits RequestedVisits [id number] Auto-Generated Referral Additional Source Comments INFORMATION SOURCE (unrecogn ized section and content) DATE CREATED AUTHOR 11/14/2021 [facility] DATE CREATED AUTHOR AUTHOR'S ORGANIZ ATION 01/03/2022 [facility] DATE CREATED AUTHOR AUTHOR'S ORGANIZ ATION 04/12/2022 [facility] DATE CREATED AUTHOR AUTHOR'S ORGANIZ ATION 06/14/2022 [facility] DATE CREATED AUTHOR AUTHOR'S ORGANIZ ATION 07/11/2022 [facility] DATE CREATED AUTHOR AUTHOR'S ORGANIZ ATION 09/24/2022 [facility] DATE CREATED AUTHOR AUTHOR'S ORGANIZ ATION 09/26/2022 [facility] DATE CREATED AUTHOR AUTHOR'S ORGANIZ ATION 10/28/2022 [facility] DATE CREATED AUTHOR AUTHOR'S ORGANIZ ATION 10/31/2022 [facility] DATE CREATED AUTHOR AUTHOR'S ORGANIZ ATION 07/24/2023 [facility] DATE CREATED AUTHOR AUTHOR'S ORGANIZ ATION 06/30/2024 [facility] DATE CREATED AUTHOR AUTHOR'S ORGANIZ ATION 08/16/2024 [facility] DATE CREATED AUTHOR AUTHOR'S ORGANIZ ATION 11/23/2024 [facility] DATE CREATED AUTHOR AUTHOR'S ORGANIZ ATION 12/15/2024 [facility] DATE CREATED AUTHOR AUTHOR'S ORGANIZ ATION 12/28/2024 [facility] Reason for Visit (unrecogniz ed section and content) ReasonCommentsFlank PainRight lower abdReasonOnset DateCommentsMed Refill 4ReasonCommentsExternal Referrals/resourcesReasonCommentsRequest Outside Medical RecordsReceived Outside Medical RecordsSpecialtyDiagnoses / ProceduresReferred By ContactReferred To ContactCT IMAGING Diagnoses Epigastric abdominal pain Procedures CT CHEST WO IVCON DIAGNOSTIC COMPUTED TOMOGRAPHY THORAX W/O CNTRST Nicanor Ferris MD [address] [place] [address] Ct Imaging [facility] Referral IDStatusReasonStart DateExpiration DateVisits RequestedVisits [id number] Auto-Generated Referral [id number] RetentionPt presents today for urinary retention. Pt states she feels like she constantly has to urinate. Complaining of odor, flank and groin pain. Pt takes oxyurosis for pain. Pt is unsure of onset but has been awhile. Pt believes she has pink eye. Pt has drainage from her eyes, this has been a burns color.States her eyes are red and swollen. Pt states she has been using eye drops but this hasn'tseemed to help.ReasonOnset DateCommentsMed [id number] Med RefillReasonOnset DateCommentsMed Tjpdhe8901/28/2024easonOnset DateComments Med Peonrt6201/25/2024easonOnset DateCommentsMed Hrhllo0911/18/2023easonOnset Date CommentsMed Oqfzwe2002/26/2024easonOnset DateCommentsMed Oshmec2002/26/2024eason Onset DateCommentsMed Rmxzcj4204/01/2024ReasonOnset DateCommentsMed Refill 05/03/2024ReasonOnset DateCommentsMed Mxmmyf5505/05/2024ReasonOnset DateComments Med Tnljpm7507/13/2024ReasonCommentsBladder ProblemReasonCommentsFollow-upPatient present for follow up following in house US. Patient denies any issues or complaints.ReasonOnset DateCommentsMed Yftaif6409/07/2024 Ordered Prescriptions (unrec ognized section and content) PrescriptionSigDispensedRefillsStart DateEnd Date naproxen (NAPROSYN) 250 MG tablet Take 1 tablet by mouth 2 times daily as needed for Pain 20 tablet dicyclomine (BENTYL) 10 MG capsule Take 1 capsule by mouth every 6 hours as needed (for pain) 20 capsule nitrofurantoin, macrocrystal-monohydrate, (MACROBID) 100 MG capsule Take 1 capsule by mouth 2 times daily for 10 doses 10 capsule /09/2022 tamsulosin (FLOMAX) 0.4 MG capsule Take 1 capsule by mouth daily for 10 days 10 capsule /02/2023 bisacodyl 5 MG EC tablet Take 2 tablets by mouth daily as needed for Constipation 10 tablet Scheduled Active and Recently Administ ered Medications (unrecognized section and content) Medication Order/ 0.9 % sodium chloride bolus (COMPLETED) 1,000 mL (17.4 mL/kg), IntraVENous, at 495.9 mL/hr, Administer over 121 Minutes, ONCE, On Aisha 04/11/22 at 1515, For 1 dose * 1520 (New Bag - Provider: Jinny Horton RN) * 1659 (Stopped - Provider: Jinny Horton RN) dicyclomine (BENTYL) injection 20 mg (COMPLETED) 20 mg, IntraMUSCular, ONCE, 1 dose, On Aisha 04/11/22 at 1615 * 1614 (Given - Provider: Jinny Horton RN) famotidine (PEPCID) 20 mg in sodium chloride (PF) 0.9 % 10 mL injection (COMPLETED) 20 mg, IntraVENous, ONCE, 1 dose, On Aisha 04/11/22 at 1515, IV Push over minimum of 2 minutes - Dilutewith 10 mL NS * 1521 (Given - Provider: Jinny Horton RN) ketorolac (TORADOL) injection 15 [...] not administer for more than 5 days. * 1521 (Given - Provider: Jinny Horton RN) morphine sulfate (PF) injection 2 mg (COMPLETED) 2 mg, IntraVENous, NOW, 1 dose, On Aisha 04/11/22 at 1615, If oral and IV narcotics ordered, use oral first and only use IV if oral is ineffective or cannot take oral. Do Not give oral and IV within 1 hour of each other unless specifically ordered. * 1613 (Given - Provider: Jinny Horton RN) ondansetron (ZOFRAN) injection 4 mg (COMPLETED) 4 mg, IntraVENous, ONCE, 1 dose, On Aisha 04/11/22 at 1615 * 1613 (Given - Provider: Jinny Horton RN) sodium chloride flush 0.9 % injection 3 mL(Linked Group 1) 3 mL, IntraVENous, EVERY 8 HOURS, First dose on Aisha 04/11/22 at 1445, Until Discontinued, Flush line with 3-5 mL * 1659 (Not Given - Provider: Jinny Horton RN - Reason: Other) * 2245 (Due) Order Group 1: Saline lock IV (COMPLETED) Routine, CONTINUOUS, Starting on Aisha 04/11/22 at 1445, Until Specified And sodium chloride flush 0.9 % injection 3 mLJump to med 3 mL, IntraVENous, EVERY 8 HOURS, First dose on Aisha 04/11/22 at 1445, Until Discontinued
Flush line with 3-5 mL
Care Teams (unrecognized sec tion and content) Team MemberRelationshipSpecialtyStart DateEnd Date Eloisa Pepper MD [facility] [address] [place] [address] PCP - General04/11/22 Team Status: Active Member Role Status Dates Juancarlos Pepper DO Primary Care Provider Active Team Status: Inactive Member Role Status Dates Juancarlos Pepper DO Primary Care Provider Active Consuelo Salgado ProviderActive Team Status: Inactive Member Role Status Dates Juancarlos Pepper DO Primary Care Provider Active Start: March 24, 2023 End: March 24, 2023Consuelo Salgado ProviderActiveStart: March 24, 2023 End: March 24, 2023 Team Status: Inactive Member Role Status Dates Juancarlos Pepper DO Primary Care Provider Active Start: March 30, 2023 End: March 30Clement Erickson Jr ProviderActiveStart: March 30, 2023 End: March 30, 2023Team MemberRelationshipSpecialtyStart DateEnd Date Nico Pepper DO [address] [facility] [address] [place] [address] PCP - [facility]08/15/22Team MemberRelationshipSpecialtyStart DateEnd Date Nico Pepper Jr., [address] [address] PCP - GeneralFagaly Medicine05/19/23 Malina Castaneda, CALENDER MACHINE OPERATOR [facility] [place] [address] ReferringFamily Medicine05/19/23Team MemberRelationshipSpecialtyStart DateEnd Date Nico Pepper Jr., DO [address] [place] [address] PCP - GeneralFamily Medicine05/19/23 Malina Castaneda, CALENDER MACHINE OPERATOR [address] [place] [address] ReferringFamily Medicine05/19/23Team MemberRelationshipSpecialtyStart DateEnd Date Nico Pepper Jr., DO [address] [place] [address] PCP - GeneralFamily Medicine05/19/23 Malina Castaneda, CALENDER MACHINE OPERATOR [address] [place] [address] ReferringFamily Medicine05/19/23Team MemberRelationshipSpecialtyStart DateEnd Date Nico Pepper Jr., DO [address] [place] [address] PCP - GeneralFamily Medicine05/19/23 Joan Castanedah, CALENDER MACHINE OPERATOR [address] [place] [address] ReferringFamily Medicine05/19/23Team MemberRelationshipSpecialtyStart DateEnd Date Nico Pepper Jr., DO [address] [place] [address] PCP - GeneralFamily Medicine3/11/24 Malina Castaneda, CALENDER MACHINE OPERATOR [address] [place] [address] ReferringFamily Medicine05/19/23Team MemberRelationshipSpecialtyStart DateEnd Date Nico Pepper Jr., DO [address] [place] [address] PCP - GeneralFamily Medicine05/19/23 Malina Castaneda, CALENDER MACHINE OPERATOR [address] [place] [address] Referringmily Medicine05/19/23Team MemberRelationshipSpecialtyStart DateEnd Date Nico Pepper Jr., DO [address] [place] [address] PCP - GeneralFamily Medicine05/19/23 Malina Castaneda, CALENDER MACHINE OPERATOR [address] [place] [address] ReferringFamily Medicine05/19/23Team MemberRelationshipSpecialtyStart DateEnd Date Nico Pepper Jr., DO [address] [place] [address] PCP - GeneralFamily Medicine05/19/23 Malina Castaneda, CALENDER MACHINE OPERATOR [address] [place] [address] ReferringFamily Medicine05/19/23Team MemberRelationshipSpecialtyStart DateEnd Date Nico Pepper, DO [address] [place] [address] PCP - [facility] Medicine08/15/22Team MemberRelationshipSpecialtyStart DateEnd Date Nico Pepper, DO [address] [place] [address] PCP - [facility] Medicine08/15/22Team MemberRelationshipSpecialtyStart DateEnd Date Nico Pepper, DO [address] [place] [address] PCP - [facility]08/15/22 Nico Pepper, DO [address] [place] [address] PCP - [facility] [place] Kgttspwnfr95/1/2312Te MemberRelationshipSpecialty Start DateEnd Date Nico Pepper, DO [address] [place] [address] PCP - [facility] Medicine08/15/22 Nico Pepper, DO [address] [place] [address] PCP - [facility] [place] Ebqmozwtuw94/1/2312Te MemberRelationshipSpecialty Start DateEnd Date Nico Pepper, DO [address] [place] [address] PCP - [facility] Medicine08/15/22Te MemberRelationshipSpecialtyStart DateEnd Date Nico Pepper, DO [address] [place] [address] PCP - [facility] Medicine08/15/22Te MemberRelationshipSpecialtyStart DateEnd Date Nico Pepper DO [address] [place] [address] PCP - [facility]08/15/22Te MemberRelationshipSpecialtyStart DateEnd Date Nico Pepper DO [address] [place] [address] PCP - [facility]08/15/22 Roxana Vicente, PA [address] [place] [address] PCP - [facility] [place] Cudgfzrehj44/1/2312 MemberRelationshipSpecialty Start DateEnd Date Nico Pepper DO [address] [place] [address] PCP - [facility]08/15/22 Roxana Vicente, PA [address] [place] [address] PCP - [facility] [place] Erglpxoavw39/1/2312Te MemberRelationshipSpecialty Start DateEnd Date Nico Pepper, DO [address] [place] [address] PCP - [facility]08/15/22 Roxana Vicente, PA [address] [place] [address] PCP - [facility] [place] Kpqxskgxhb86/1/ Team Status: Inactive Member Role Status Dates Juancarlos Pepper DO Primary Care Provider Active Start: April 06, 2024 End: April 06, 2024Dilcia Gimenez ProviderActiveStart: April 06, 2024 End: April 06, 2024Team MemberRelationshipSpecialtyStart DateEnd Date Nico Pepper DO [address] [place] [address] PCP - [facility] Medicine08/15/22 Roxana Vicente, PA [address] [place] [address] PCP - [facility] [place] Rzvcdunjpn30/1/ Team Status: Inactive Member Role Status Dates Juancarlos Pepper DO Primary Care Provider Active Start: May 25, 2024 End: May 25, 2024Consuelo Salgado ProviderActiveStart: May 25, 2024 End: May 25, 2024Team MemberRelationshipSpecialtyStart DateEnd Date Nico Pepper DO [address] [place] [address] PCP - [facility] Medicine08/15/22 Roxana Vciente, PA [address] [place] [address] PCP - [facility] [place] Jdgrcyeojr93/1/2312Team MemberRelationshipSpecialty Start DateEnd Date Nico Pepper DO [address] [place] [address] PCP - [facility] Medicine08/15/22 Roxana Vicente, PA [address] [place] [address] PCP - [facility] [place] Lmztuflihi40/1/ Team Status: Inactive Member Role Status Dates Juancarlos Pepper DO Primary Care Provider Active Start: June 12, 2024 End: June 12, 2024Fabiano Penacy ProviderActiveStart: June 12, 2024 End: June 12, 2024Team MemberRelationshipSpecialtyStart DateEnd Date Nico Pepper, [address] [place] [address] PCP - [facility] Medicine08/15/22 Nico Pepper, [address] [place] [address] PCP - [facility] [place] Irskzppclq98/1/2312Team MemberRelationshipSpecialty Start DateEnd Date Nico Pepper DO [address] [place] [address] PCP - [facility]08/15/22 Nico Pepper, [address] [place] [address] PCP - [facility] [place] Uhyyuuvmgb32/1/2312Team MemberRelationshipSpecialty Start DateEnd Date Nico Pepper, [address] [place] [address] PCP - [facility]08/15/22 Nico Pepper DO [address] [place] [address] PCP - [facility] [place] Ksyaueqcjn15/1/2312Team MemberRelationshipSpecialty Start DateEnd Date Nico Pepper, [address] [place] [address] PCP - [facility] Medicine08/15/22 Nico Pepper DO [address] [place] [address] PCP - [facility] [place] [id number]/1/2312Te MemberRelationshipSpecialty Start DateEnd Date Nico Pepper DO [address] [place] [address] PCP - [facility]08/15/22 Nico Pepper DO [address] [place] [address] PCP - [facility]02/08/2312Te MemberRelationshipSpecialty Start DateEnd Date Nico Pepper DO [address] [place] [address] PCP - [facility]08/15/22 Nico Pepper DO [address] [place] [address] PCP - [facility]02/08/2312Te MemberRelationshipSpecialty Start DateEnd Date Nico Pepper, [address] [place] [address] PCP - [facility]08/15/22 Nico Pepper DO [address] [place] [address] PCP - [facility] [place] Ajrepbogpo81/1/2312Team MemberRelationshipSpecialty Start DateEnd Date Nico Pepper, DO [address] [place] [address] PCP - [facility]08/15/22 Nico Pepper, DO [address] [place] [address] PCP - [facility] [place] Emdxnsigjx94/1/2312Team MemberRelationshipSpecialty Start DateEnd Date Nico Pepper, DO [address] [place] [address] PCP - [facility]08/15/22Team MemberRelationshipSpecialtyStart DateEnd Date Nico Pepper, DO [address] [place] [address] PCP - [facility]08/15/22 Goals (unrecognized section and content) Goals may be documented in a n alternate sectionGoals may be documented in an alternate section No data available for this section No data available for this section No data available for this section No data available for this sectionGoals may be documented in an alternate sectionGoals may be documented in an alternate sectionGoals may be documented in an alternate section Source Comments (unrecognize d section and content) In the event this informatio n is protected by the Federal Confidentiality of Alcohol and Drug Abuse Patient Records regulations: The Federal rules restrict any use of the information to criminally investigate or prosecute any alcohol or drug abuse patient.[facility] System[facility] the event this information is protected by the Federal Confidentiality of Alcohol and Drug Abuse Patient Records regulations: The Federal rules restrict any use of the information to criminally investigate or prosecute any alcohol or drug abuse patient.[facility] SystemIn the event this information is protected by the Federal Confidentiality of Alcohol and Drug Abuse Patient Records regulations: The Federal rules restrict any use of the information to criminally investigate or prosecute any alcohol or drug abuse patient.[facility] SystemIn the event this information is protected by the Federal Confidentiality of Alcohol and Drug Abuse Patient Records regulations: The Federal rules restrict any use of the information to criminally investigate or prosecute any alcohol or drug abuse patient.[facility] SystemIn the event this information is protected by the Federal Confidentiality of Alcohol and Drug Abuse Patient Records regulations: The Federal rules restrict any use of the information to criminally investigate or prosecute any alcohol or drug abuse patient.[facility] SystemIn the event this information is protected by the Federal Confidentiality of Alcohol and Drug Abuse Patient Records regulations: The Federal rules restrict any use of the information to criminally investigate or prosecute any alcohol or drug abuse patient.[facility] SystemIn the event this information is protected by the Federal Confidentiality of Alcohol and Drug Abuse Patient Records regulations: The Federal rules restrict any use of the information to criminally investigate or prosecute any alcohol or drug abuse patient.[facility] SystemIn the event this information is protected by the Federal Confidentiality of Alcohol and Drug Abuse Patient Records regulations: The Federal rules restrict any use of the information to criminally investigate or prosecute any alcohol or drug abuse patient.[facility] SystemIn the event this information is protected by the Federal Confidentiality of Alcohol and Drug Abuse Patient Records regulations: The Federal rules restrict any use of the information to criminally investigate or prosecute any alcohol or drug abuse patient.[facility] SystemIn the event this information is protected by the Federal Confidentiality of Alcohol and Drug Abuse Patient Records regulations: The Federal rules restrict any use of the information to criminally investigate or prosecute any alcohol or drug abuse patient.[facility] FOR RECORDS PERTAINING TO PATIENTS WHO ARE [...] BE BASED ON THE PRIMARY CLINICAL RECORDS. [facility] [employer] [facility]. provides no warranty or guarantee of the accuracy or completeness of information in this document.
--- NOTE | 2024-12-31 17:22 | ED.GENADUL1 ---
HPI HPI - General Adult General Chief complaint: Back Pain/Injury Stated complaint: L SIDED BACK/HIP/LEG PAIN & NUMBNESS Time Seen by Provider: 12/31/24 14:41 Source: patient Mode of arrival: Wheelchair History of Present Illness HPI narrative: Patient is a 49-year-old female presenting to the emergency department for evaluation of left lower back pain rating into her left lower leg. Patient states he has longstanding history of sciatica and back problems. She sees a pain doctor and is getting treated with steroid injections, opiates, and tizanidine. She completed 6 weeks of physical therapy recently. Additionally, she has not an outpatient MRI that demonstrated lumbar spondylosis and herniated disc. Other than the acute exacerbation of her chronic low back pain, she has no other complaints. She denies any recent trauma. No loss of bladder/bowel function. No numbness/tingling lower extremities. No weakness in the lower extremities. Related Data Home Medications ?Medication ?Instructions ?Recorded ?Confirmed atenolol 50 mg-chlorthalidone 25 1 tab PO DAILY 08/12/22 08/09/24 mg tablet qkekgkxrvb-ygawmrhhfuukh-ycco PO .Q4 08/12/22 lamotrigine 200 mg tablet 200 mg PO DAILY 08/12/22 08/09/24 ondansetron 4 mg disintegrating 4 mg PO Q6H 08/12/22 08/09/24 tablet oxaprozin 600 mg tablet 600 mg PO BID 08/12/22 08/09/24 oxycodone-acetaminophen 5 mg-325 1 tab PO DAILY 08/12/22 08/09/24 mg tablet tizanidine 4 mg tablet 4 mg PO .QHS 08/12/22 08/09/24 paroxetine HCl 30 mg tablet 60 mg PO 02/11/24 pregabalin 200 mg capsule (Lyrica) 200 mg PO Q12H 02/11/24 08/09/24 Previous Rx's ?Medication ?Instructions ?Recorded naloxone 4 mg/actuation nasal 4 mg intranasal Q3M PRN opioid 02/13/23 spray (Narcan) overdose #2 ea oxycodone-acetaminophen 5 mg-325 1 tab PO DAILY PRN pain #30 tabs 02/11/24 mg tablet (Percocet) oxycodone-acetaminophen 5 mg-325 1 tab PO Q8H PRN pain #30 tabs 05/24/25 mg tablet (Percocet) oxycodone-acetaminophen 5 mg-325 See Rx Instructions .Route 05/24/25 mg tablet (Percocet) .COMPLEX PRN pain #30 tabs oxycodone-acetaminophen 5 mg-325 1 tab PO DAILY PRN pain #30 tabs //25 mg tablet (Percocet) oxycodone-acetaminophen 5 mg-325 1 tab PO DAILY PRN pain #30 tabs 10/07/25 mg tablet (Percocet) Allergies Allergy/AdvReac Type Severity Reaction Status Date / Time metoclopramide (From Reglan) Allergy Intermediate Anxiety Verified 08/09/24 09:18 sulfabenzamide Allergy Intermediate Rash Verified 08/09/24 09:18 sumatriptan (From Imitrex) Allergy Intermediate Anxiety Verified 08/09/24 09:18 amoxicillin (From Augmentin) Allergy Unknown Rash Verified 08/09/24 09:18 clavulanic acid (From Allergy Unknown Rash Verified 08/09/24 09:18 Augmentin) Opioid HPI Opioid Management Most Recent Opioid Data: Last Pain Scale 5 08/09/24, 10:00 Review of Systems ROS Status of ROS 10 or more systems reviewed and unremarkable except as noted in history and below PFSH PFS Social History Smoking status: Never smoker Little interest or pleasure in doing things: not at all Feeling down, depressed, or hopeless: not at all Exam Narrative Exam Narrative: CONSTITUTIONAL: Patient appears to be in pain, answering questions following meds appropriately SKIN: Was warm and dry. EYES: Sclerae white. EARS, NOSE, THROAT: Moist oral mucosa. RESPIRATORY: Clear to auscultation bilaterally, no wheezes, crackles, or stridor, no use of accessory muscles CARDIOVASCULAR: Normal rate and regular rhythm. There is no S3, S4, murmur, rub. GASTROINTESTINAL: Abdomen is nondistended. MUSCULOSKELETAL: There is reproducible tenderness to palpation of the paraspinal muscles of the left lower back. No midline L-spine tenderness. Full range of motion in the bilateral lower extremities. NEUROLOGIC: Patient is awake and alert. 5/5 strength with bilateral lower extremity hip flexion/extension, knee flexion/extension, dorsiflexion/plantarflexion. Sensation intact light touch in the bilateral lower extremities. Constitutional Vital Signs, click to edit/add: Last Vital Signs Temp 98.2 F 12/31/24 14:46 Pulse 61 12/31/24 14:46 Resp 20 12/31/24 14:46 BP 146/75 H 12/31/24 14:46 Pulse Ox 99 12/31/24 14:46 O2 Del Method Room Air 12/31/24 14:46 Course Vital Signs Vital signs: Vital Signs Temperature 98.2 F 12/31/24 14:46 Pulse Rate 61 12/31/24 14:46 Respiratory Rate 20 12/31/24 14:46 Blood Pressure 146/75 H 12/31/24 14:46 Pulse Oximetry 99 12/31/24 14:46 Oxygen Delivery Method Room Air 12/31/24 14:46 Temperature 98.2 F 12/31/24 14:46 Pulse Rate 61 12/31/24 14:46 Respiratory Rate 20 12/31/24 14:46 Blood Pressure 146/75 H 12/31/24 14:46 Pulse Oximetry 99 12/31/24 14:46 Oxygen Delivery Method Room Air 12/31/24 14:46 Medical Decision Making MDM Narrative Medical decision making narrative: Patient is a 49-year-old female presenting to the emergency department for evaluation of left lower back pain radiating down her left extremity. On review of external documentations, patient has a history of complex regional pain syndrome, fibromyalgia, and lumbar spondylosis. She had an MRI on 09/2024 that demonstrated lumbar spondylosis and herniated disc. She has been seen in the pain management clinic and has been prescribed outpatient opiates and was previously getting epidural injections. Patient's vital signs on arrival today are within normal limits. She is afebrile and hemodynamically stable. On examination, she has reproducible tenderness palpation in the paraspinal muscles of the left lower back. She is neurologically intact in the lower extremities. My clinical impression of the patient's back pain is musculoskeletal in nature, possibly related to lumbar radiculopathy/sciatica. No findings that would be suggestive of cauda equina syndrome. No history of IV drug use, fevers, midline vertebral tenderness to suggest spinal epidural abscess. No recent injuries to suggest fracture or dislocations. No history of cancer to suggest metastatic disease. Patient will be treated symptomatically with IM Dilaudid and IM ketorolac. On reevaluation, patient states she feels improved. I do believe the patient is stable for discharge. Patient's presentation is most likely consistent with sciatica. They were instructed to follow up with her pain doctor for further care. Return precautions were given including any new or worsening symptoms. Patient understands and agrees to the plan. FINAL IMPRESSION: #Acute on chronic left lower back pain, likely sciatica DISPOSITION: Discharge home CONDITION: Good Medical Records Medical records reviewed: Yes I reviewed the patient's medical records Discharge Plan Discharge Chief Complaint: Back Pain/Injury Clinical Impression: Lumbar spondylosis, Sciatica Patient Disposition: Home, Self-Care Time of Disposition Decision: 15:38 Condition: Good Mode of Transportation: Private Vehicle Prescriptions / Home Meds: No Action atenolol-chlorthalidone 50-25 mg tablet 1 tab PO DAILY lamotrigine 200 mg tablet 200 mg PO DAILY ondansetron 4 mg tablet,disintegrating 4 mg PO Q6H oxycodone-acetaminophen 5-325 mg tablet 1 tab PO DAILY tizanidine 4 mg tablet 4 mg PO .QHS iihoumtmpw-tdtpiytpoyvxf-aksc [Fioricet] PO .Q4 oxaprozin 600 mg tablet 600 mg PO BID paroxetine HCl 30 mg tablet 60 mg PO pregabalin [Lyrica] 200 mg capsule 200 mg PO Q12H oxycodone-acetaminophen [Percocet] 5-325 mg tablet 1 tab PO DAILY PRN (Reason: pain) Qty: 30 0RF oxycodone-acetaminophen [Percocet] 5-325 mg tablet 1 tab PO DAILY PRN (Reason: pain) Qty: 30 0RF Rx Instructions: MUST LAST 30 DAYS naloxone [Narcan] 4 mg/actuation spray,non-aerosol 4 mg intranasal Q3M PRN (Reason: opioid overdose) Qty: 2 0RF Rx Instructions: spray 1 dose into ONE nostril; alternate nostrils w each dose until help arrives oxycodone-acetaminophen [Percocet] 5-325 mg tablet 1 tab PO Q8H PRN (Reason: pain) Qty: 30 0RF oxycodone-acetaminophen [Percocet] 5-325 mg tablet See Rx Instructions .ROUTE .COMPLEX PRN (Reason: pain) Qty: 30 0RF Rx Instructions: 1 tab daily-BID PRN, 30 tabs to last 30days oxycodone-acetaminophen [Percocet] 5-325 mg tablet 1 tab PO DAILY PRN (Reason: pain) Qty: 30 0RF Rx Instructions: MUST LAST 30 DAYS Print Language: [place] Citizen Instructions: Sciatica (ED) Referrals: Ryan ORTIZ [Primary Care Provider, Family Practice] - 1 week Discharge Date/Time: 12/31/24 16:00
== END 2024-12-31 16:00 | disposition home or self-care (01) ==
PROVIDERS: Emergency Provider Student in an Organized Health Care Education/Training Program; PCP Family Medicine
DX: M47.816 Spondylosis without myelopathy or radiculopathy, lumbar region (principal); M54.32 Sciatica, left side; M51.26 Other intervertebral disc displacement, lumbar region; M79.7 Fibromyalgia
CPT/HCPCS: 99284; J1171; J1885

== ENCOUNTER 2025-01-26 10:59 | Outpatient (OUT) | payer SELFPAY ==
--- OUTSIDE RECORDS SUMMARY | 2025-01-26 11:07 | XMS_ITS | CCD ---
Author Organization [facility] Informat ion Partnership [facility] Care Team Providers Care Skid Strapper Name Role Phone Madeleine Marshall Unavailable Unavailable [...] LAZARO ., DR SCAR Lugo Consulting Unavailable ALETA SEGURA Consulting Unavailable MCCORNACK, JUAN M Consulting Unavailable ALZARO ., DR SCAR Lugo Attending Unavailable WINN [...] Attending DO Juancarlos Marte Primary Care Provider [phone] DO Tad Barger Emergency Provider [phone] MD Zaheer Sanon Jr Emergency Provider Ryan PEPPER Primary Care Physician [phone] Nico Pepper DO Primary Care Provider Shantelle [...] able RAJA, NICANOR Referring Unavailable YUNNURIS SALAS NICO AMIN Primary Care Unavail able Nico Pepper DO Unavailable Roxana Bermudez Unavailable Juancarlos Pepper DO Primary Care Provider Tad Barger DO Emergency Provider Yamil Leal MD Emergency Provider [phone] Yamil Leal Admitting Unavailable Yamil Leal Attending [...] of OnsetReaction(s) Facility (11 sources)Metoclopramide; Translations: [Reglan]Drug Kxjqrou78-86-6905[facility] (14 sources)Sulfonamides (Antibiotic); Translations: [Sulfa Drugs]Allergy to drug (finding)Unknown (qualifier value)[facility] (20 sources)SUMAtriptan; Translations: [sumatriptan]Drug Vrrjvuk80-75-4677 Palpitations, Other (See Comments), Rash, Unknown (qualifier value), Other: See Comments, UnknownMG[facility] [address] Work Phone: (20 sources)Metoclopramide; Translations: [metoclopramide]Drug Qutfzpo06-09-5935 Hives, Nausea And Vomiting, Unknown (qualifier value), Anxiety, Other: See Comments, GI Upset, [facility] Work Phone: (20 sources)Sulfonamides (Antibiotic)Propensity to adverse reactions to drug 74-21-5685Lfknat And Vomiting, Hives, GI Upset, Other: See Comments, [facility] Work Phone: (20 sources)Amoxicillin-Pot Clavulanate; Translations: [AMOXICILLIN-POT CLAVULANATE]Propensity to adverse reactions to mrxz06-82-1865Mgqfs (See Comments), [facility] [employer] (2 sources)Amoxicillin / Clavulanate; Translations: [Augmentin]Drug Allergy 71-37-4892Hqb [facility]ository (2 sources)PlasminDrug Nzgizum89-23-2887JoeCommunity [facility] (2 sources)Sulfonamides (Antibiotic)Drug allergy (disorder)21-70-5192EjpCommunity [facility] (10 sources)Amoxicillin; Translations: [AMOXICILLIN]Drug Ucmxihp59-39-5547KdtsSt[facility] (6 sources)Clavulanate; Translations: [clavulanic acid]Drug Xbrtphd52-25-3471 [facility] (8 sources)Sulfonamides (Antibiotic); Translations: [SULFA (SULFONAMIDE ANTIBIOTICS)]Allergy to ykmpruxmy54-85-1510[facility]cnfljuC[facility] (4 sources)Amoxicillin / Clavulanate; Translations: [amoxicillin-clavulanate] Drug [facility]Ohio[facility] (4 sources)Sulfacetamide; Translations: [sulfacetamide]Drug Ypbxbxm02-70-7476jho sure, she was a [facility] (4 sources)Sulfur; Translations: [sulfur]Drug Thjnemz63-78-2006rgu sure, she was a [facility] (1 source)MetoclopramideDrug Trfkcwo72-40-5860[facility]Bar[facility] (1 source)Metoclopramide; Translations: [METOCLOPRAMIDE HCL]Drug Allergy 78-02-5039MwlyrjyvrxSt. [facility] (1 source)Prochlorperazine; Translations: [PROCHLORPERAZINE]Drug Allergy 25-59-5448BzpymbptcwSt. [facility] Medications Current Medications MedicationDrug Class(es)DatesSig (Normalized)Sig (Original)acetaminophen 300 mg / butalbital 50 mg / caffeine 40 mg oral capsule (20 sources)Barbiturate, Central Nervous System Stimulant, MethylxanthineStart: 14-91-1128Gzwqteua Refill(s) 0 Start Date: 08/17/19 Status: OrderedStart: 06-23-2017 End: 39-92-7657srgd 1 capsule by mouth every four hours as needed for headache kpihxmdbuj-xjnosihyuqeuj-btiztefi (Fioricet) 50-300-40 MG capsule Indications: Nonintractable headache, [...] 5 mg oral tablet (20 sources)Opioid AgonistStart: 16-26-5568vkir 1 tablet by mouth every six hours as needed for painOxycodone-Acetaminophen 5-325 mg tablet Active 1 TAB PO Every 6 hours as needed for pain April 06, 2024 1:00amStart: 19-52-0399kjms 1-2 tablets by mouth every six hours as neededoxyCODONE-acetaminophen (PERCOCET) 5-325 mg tablet Take 1-2 tablets by mouth every 6 hours as needed. 0 05/22/2023 ActiveStart: 63-10-1585bolr 1 tablet by mouth in the morningoxyCODONE- acetaminophen (Percocet) 5-325 MG tablet Take 1 tablet by mouth in the morning. 08/09/2022 ActiveStart: 06-23-2017 End: 22-61-6303qffv 1 tablet by mouth every six hours [...] Start Date: 04/07/23 Status: OrderedStart: 10-05-2021 End: 45-01-5204xbke 1 tablet by mouth once dailyatenolol-chlorthalidone (Tenoretic) 50-25 MG tablet Indications: Primary hypertension Take 1 tabletby mouth Daily 90 tablet 2 10/06/2024 ActiveComment on above:Take 1 tablet by mouth once daily.bisacodyl 5 mg delayed release oral tablet (1 source)Stimulant LaxativeStart: 34-21-6501qswu 2 tablets by mouth once daily as needed for constipationbisacodyl 5 MG EC tablet Take 2 tablets by mouth daily as needed for Constipation 10 tablet 0 04/11/2022 Active Xdyukwcwah-BLUW-Khiwncfw (FIORICET PO) (1 source)Start: 09-04-1732Gtilkbtzws-APAP-Caffeine (FIORICET PO) Refill(s) 0 0 08/17/2019 Active2 ml dicyclomine hydrochloride 10 mg/ml injection (12 sources)AnticholinergicStart: 72-73-9749djfotbboroz (BENTYL) injection 20 mg Start: 52-25-1627xpmx 1 capsule by mouth every six hours as needed for pain dicyclomine (BENTYL) 10 MG capsule Take 1 capsule by mouth every 6 hours as needed (for pain) 20 capsule 1 04/11/2022 ActiveStart: 08-21-2018 End: 51-75-4104efus 1 tablet by mouth twice dailyDicyclomine 20 mg tablet Discontinued 20 MG PO Twice daily August 21, 2018 12:00am October 05, 2021 4:12pm Start: 08-19-2018 End: 87-41-4571lkly 1 tablet by mouth once dailyDicyclomine 20 mg tablet Discontinued 20 MG PO Daily August 19, 2018 12:00am August 21, 2018 10:17am enteric contrast (will be provided with radiology test) (10 sources)Start: 79-27-2918vybmsyn contrast (will be provided with radiology test) [...] release oral capsule (7 sources)Proton Pump InhibitorStart: 67-49-5784zmut 1 capsule by mouth once esomeprazole (NEXIUM) 40 mg capsule Take 1 capsule by mouth every afternoon. 0 05/13/2023 ActiveComment on above:Take 1 capsule by mouth every afternoon. estradiol 0.1 mg/ml vaginal cream (12 sources)EstrogenStart: 07-19-2024 End: 49-27-3414xceeuybbm (Estrace) 0.1 MG/GM vaginal cream Indications: Vulvovaginal Atrophy Insert twice weekly 42.5 g 12 07/19/2024 12/13/2024 Discontinuedestrogens, conjugated (fdc) 0.625 mg/ml vaginal cream (1 source)EstrogenStart: 43-34-9308Ufgnjudau Conjugated (Premarin) 0.625 MG/GM cream Indications: Hormone imbalance Insert 1 g into the vagina in the morning. Take 1 gram nightly for 1 month, then twice weekly thereafter.. 30 g 3 10/22 ActivehydrOXYzine pamoate 25 mg oral capsule (20 sources)AntihistamineStart: 76-23-8052opej 1 capsule by mouth every eight hours for anxietyhydrOXYzine pamoate (Vistaril) 25 MG capsule Indications: Anxiety and depression Take 1 capsule (25mg) by mouth every 8 (eight) hours if needed for anxiety 30 capsule 5 09/15/2023 ActiveStart: 52-05-9271eeyn 1 capsule by mouth three times daily as needed for anxietyHydroxyzine Pamoate 25 mg capsule Active 25 MG PO Three times daily as needed for anxiety October 05, 2021 12:00amComment on above:Take 25 mg by mouth three times a day as needed. ibuprofen 600 mg oral tablet (6 sources)Nonsteroidal Anti-inflammatory DrugStart: 79-84-1070vbjr 4 tablets by mouth every twenty-four hours for painIbuprofen 600 mg tablet Active 600 MG PO Every 6 hours as needed for Pain June 12, 2024 12:00am do not exceed 4 doses in a 24 hour periodStart: 11-20-2016 End: 34-99-1924iesj 1 tablet by mouth every eight hours as needed for pain Ibuprofen 600 mg tablet Discontinued 600 MG PO Q8H as needed for pain November 20, 2016 12:00am October 05, 2021 4:12pmlamoTRIgine 200 mg oral tablet (20 sources)Mood Stabilizer, Anti-epileptic AgentStart: 92-42-8187Zolsuahj Refills(s) 0 Start Date: 08/17/19 Status: OrderedStart: 10-08-2016 End: 99-67-3355qnar 1 tablet by mouth once dailylamoTRIgine (LaMICtal) 200 MG tablet Indications: Bipolar affective disorder, remission status unspecified (HCC) , Anxiety and depression Take 1 tablet (200 mg) by mouth Daily 90 tablet 3 02/27/2024 ActiveStart: 92-08-7499umvs 1 tablet by mouth twice dailylamoTRIgine (LAMICTAL) 200 mg tablet Take 200 mg by mouth two times a day. 0 10/08/2016 ActiveComment on above:Take 200 mg by mouth two times a day.meclizine hydrochloride 25 mg oral tablet (1 source)AntiemeticStart: 63-13-9702pjel 1 tablet by mouth three times daily as needed for dizzinessMeclizine 25 mg tablet Active 25 MG PO Three times daily as needed for dizziness June 122:00amnaloxone hydrochloride 40 mg/ml nasal spray (4 sources)Opioid AntagonistStart: 79-47-1561ofpjferd 4 mg/0.1 mL nasal spray 4 mg, Nasal, As Directed, for suspected overdose symptoms, # 1 kit(s), Refills(s) 0 Start Date: 04/07/23 Status: Orderednaproxen 250 mg oral tablet (1 source)Nonsteroidal Anti-inflammatory DrugStart: 53-73-1000gzno 1 tablet by mouth twice daily as needed for painnaproxen (NAPROSYN) 250 MG tablet Take 1 tablet by mouth 2 times daily as needed for Pain 20 tablet5 04/11/2022 Active nitrofurantoin, macrocrystals 25 mg / nitrofurantoin, monohydrate 75 mg oral capsule (1 source)Nitrofuran AntibacterialStart: 04-11-2022 End: 28-32-0989syaa 1 capsule by mouth twice dailynitrofurantoin, macrocrystal- monohydrate, (MACROBID) 100 MG capsule Take 1 capsule by mouth 2 timesdaily for 10 doses 10 capsule 0 04/11/2022 04/16/2022 Activeondansetron 4 mg disintegrating oral tablet (20 sources)Serotonin-3 Receptor AntagonistStart: 72-51-0904umieetubtvj ODT (Zofran-ODT) 4 MG disintegrating tablet Indications: Headache DISSOLVE 1 TABLET ON THE TONGUE EVERY 8 HOURS NEEDED 27 tablet 2 12/13/2024 ActiveStart: 43-33-8433bokhqprsssy ODT (Zofran-ODT) 4 MG disintegrating tablet Indications: Headache DISSOLVE 1 TABLET ON THE TONGUE EVERY 8 HOURS NEEDED 27 tablet 2 12/13/2024 ActiveStart: 09-15-2023 End: 32-73-0001zhfocxxgzrh ODT (Zofran-ODT) 4 MG disintegrating tablet Indications: Headache DISSOLVE 1 TABLET ON THE TONGUE EVERY 8 HOURS NEEDED 27 tablet 2 10/06/2024 12/13/2024 Discontinued (Reorder)Start: 04-11-2022 End: 30-37-7636tnqgjbjyqpf (ZOFRAN) injection 4 mgStart: 32-85-2197ujlj 1 tablet by mouth every eight hours as neededondansetron orally disintegrating (ZOFRAN ODT) 4 mg disintegrating tablet Take 4 mg by mouth every 8 hours as needed. 0 12/01/2017 ActiveStart: 12-01-2017 End: 72-92-6257Ikbkfevcqwt Hcl 4 mg tablet Discontinued 4 MG PO every 6 to 8 hours as needed for nausea and vomiting March 24, 2023 1:00am April 06, 2024 2:07pmComment on above:Take 4 mg by mouth every 8 hours as needed. oxaprozin 600 mg oral tablet (20 sources)Nonsteroidal Anti-inflammatory DrugStart: 07-13-2024 End: 88-90-5154hxmn 1 tablet by mouth in the morningoxaprozin [...] daily April 06, 2024 1:00amStart: 02-03-2024 End: 43-51-6519uvou 1 tablet by mouth once daily in the morningoxaprozin (Daypro) 600 MG tablet Indications: Unspecified thoracic, thoracolumbar and lumbosacral intervertebral disc disorder TAKE 1 TABLET BY MOUTH EVERY MORNING AND 1 TABLET BEFORE BEDTIME 60 tablet 3 02/03/2024 07/13/2024 Discontinued (Reorder)Start: 80-55-3842puxr 1 tablet by mouth in the morningoxaprozin (Daypro) 600 MG tablet Indications: Unspecified thoracic, thoracolumbar and lumbosacral intervertebral disc disorder Take 1 tablet (600 mg) by mouth in the morning and 1 tablet (600 mg) before bedtime. 180 tablet 3 06/17/2023 Active Start: 37-72-3527mgqh 1 tablet by mouth in the morningoxaprozin [...] mg oral tablet (20 sources)Serotonin Reuptake InhibitorStart: 79-08-2020pkergdlkqh Refills(s) 0 Start Date: 08/17/19 Status: OrderedStart: 44-20-7660eptc 60 mg by mouth once dailyParoxetine Hcl Active 60 MG PO Daily November 19, 2016 11:00pmStart: 10-08-2016 End: 33-61-7253dcnt 2 tablets by mouth once dailyPARoxetine (Paxil) [...] 60 mg by mouth once daily.polymyxin b 32785 unt/ml / trimethoprim 1 mg/ml ophthalmic solution (3 sources)Dihydrofolate Reductase Inhibitor Antibacterial, Polymyxin-class AntibacterialStart: 12-22-2023 End: 20-14-1209urzngeytndts-polymyxin b (Polytrim) ophthalmic solution Indications: Bacterial conjunctivitis of both eyes Administer 1 drop into affected eye(s) in the morning and 1 drop at noon and 1 drop in the evening and 1 drop before bedtime. Do all this for 10 days. 10 mL 1 12/22/2023 01/01/2024 Activepregabalin 200 mg oral capsule (20 sources)Start: 59-86-8682xybo 1 capsule by mouth in the morningpregabalin (Lyrica) 200 MG capsule Indications: Complex regional pain syndrome type 1, affecting unspecified site , Disorder of intervertebral disc of lumbar spine , Chronic pain syndrome , Neuropathy Take 1 capsule (200 mg) by mouth in the morning and 1 capsule (200 mg) before bedtime. 180 stfqynn2912/13/2024 Active Start: 21-28-2460ccjz 1 capsule by mouth in the morningpregabalin (Lyrica) 200 MG capsule Indications: Complex regional pain syndrome type 1, affecting uns pecified site , Disorder of intervertebral disc of lumbar spine , Chronic pain syndrome , Neuropathy Take 1 capsule (200 mg) by mouth in the morning and 1 capsule (200 mg) before bedtime. 180 ftpimnp5612/13/2024 ActiveStart: 12-29-2023 End: 49-10-5695rkri 1 capsule by mouth in the morningpregabalin (Lyrica) 200 MG capsule Indications: Complex regional pain syndrome type 1, affecting uns pecified site , Disorder of intervertebral disc of lumbar spine , Chronic pain syndrome , Neuropathy Take 1 capsule (200 mg) by mouth in the morning and 1 capsule (200 mg) before bedtime. 180 oxvoyet0310/06/2024 12/13/2024 Discontinued (Reorder)Start: 10-17-2023 End: 19-15-6129ates 1 capsule by mouth in the morningpregabalin (Lyrica) 200 MG capsule Indications: Complex regional pain syndrome type 1, affecting uns pecified site , Disorder of intervertebral disc of lumbar spine , Chronic pain syndrome , Neuropathy Take 1 capsule (200 mg) by mouth in the morning and 1 capsule (200 mg) before bedtime. 60 capsule 11/19/2023 12/27/2023 Discontinued (Reorder)Start: 68-72-6437ktia 1 capsule by mouth in the morningpregabalin (Lyrica) 200 MG capsule Indications: Complex regional pain syndrome type 1, affecting unspecified site , Disorder of intervertebral disc of lumbar spine , Chronic pain syndrome , Neuropathy Take 1 capsule (200 mg) by mouth in the morning and 1 capsule (200 mg) before bedtime. 60 capsule 0 04/24/2023 Active Start: 03-25-2023 End: 11-06-9699alcc 1 capsule by mouth three times dailypregabalin 200 mg Cap 200 mg = 1 cap(s), Oral, TID, Refills(s) 0 Start Date: 04/07/23 Status: Ordered Start: 65-98-1656fbcj 1 tablet by mouth once dailypregabalin (LYRICA) 150 mg capsule Take 1 tablet by mouth once daily. 0 05/19/2022 ActiveComment on above: Take 1 tablet by mouth once daily.promethazine hydrochloride 25 mg oral tablet (10 sources)PhenothiazineStart: 34-95-8361kwqj 1 tablet by mouth every four to six hours as needed for nausea and vomitingPromethazine 25 mg tablet Active 25 MG PO EVERY 4-6 HOURS as needed for nausea and vomiting June 12, 2024 12:00amStart: 03-17-2021 End: 48-75-0039obff 1 tablet by mouth three times daily as needed for nausea and vomitingPromethazine 25 mg tablet Discontinued 25 MG PO Three times daily as needed for nausea and kmitsyex11 October 05, 2021 12:00am April 06, 2024 2:21pmsodium chloride flush 0.9 % injection 3 mL (1 source)Start: 42-42-2933ryydpy chloride flush 0.9 % injection 3 mLsucralfate 1000 mg oral tablet (14 sources)Aluminum ComplexStart: 19-83-8289qgozdhakgy 1 g Tab Refills(s) 0 Start Date: 04/07/23 Status: OrderedStart: 03-24-2023 End: 02-28-4110fqqb 1 tablet by mouth every six hoursSucralfate (Carafate) 1 gram tablet Discontinued 1 GM PO Q6H 56 March 24, 2023 1:00am April 06, 2024 2:21pmStart: 10-05-2021 End: 40-47-9632ijol 1 tablet by mouth twice daily as needed for painSucralfate (Carafate) 1 gram tablet Discontinued 1 GM PO Twice daily as needed for pain 10 October 05, 2021 5:46pm April 06, 2024 2:21pmtamsulosin hydrochloride 0.4 mg oral capsule (1 source)alpha-Adrenergic BlockerStart: 04-11-2022 End: 13-10-1032hrpo 1 capsule by mouth once dailytamsulosin (FLOMAX) 0.4 MG capsule Take 1 capsule by mouth daily for 10 days 10 capsule 0 04/11/2022 04/21/2022 ActivetiZANidine 4 mg oral tablet (20 sources)Central alpha-2 Adrenergic AgonistStart: 10-25-2022 End: 72-39-9117ursd 1 tablet by mouth three times daily [...] Zoster Virus Nucleoside Analog DNA Polymerase InhibitorStart: 59-08-9681mliu 1 tablet by mouth four times daily as neededValacyclovir 500 mg tablet Active 500 MG PO Four times daily as needed for rash April 06, 2024 1:00amStart: 47-16-0006sbsq 1 tablet by mouth once daily in the morning, then take 1 tablet by mouth in the evening, then take 1 tablet by mouth at bedtimevalACYclovir (Valtrex) 500 MG tablet Indications: History of cold sores TAKE 1 TABLET BY MOUTH EVERY MORNING 1 IN THE EVENING & 1 AT BEDTIME FOR 7 DAYS 21 tablet 1 04/05/2024 ActiveStart: 57-39-4336slrx 1 tablet by mouth in the morning, [...] 75 MG tablet (12 sources)Start: 07-19-2024 End: 33-87-9378flqb 1 tablet by mouth once dailyVibegron (Gemtesa) 75 MG tablet Indications: Other urinary incontinence Take 75 mg by mouth Daily 30 tablet 3 07/19/2024 12/13/2024 DiscontinuedStart: 77-41-7775mbyj 1 tablet by mouth once dailyVibegron (Gemtesa) 75 MG tablet Indications: Other urinary incontinence Take 75 mg by mouth Daily 30 tablet 3 07/19/2024 ActiveZofran ODT 4 mg Tab-Dis (4 sources)Start: 96-52-2341qvmo 1 tablet by mouth every eight hours as needed for nauseaZofran ODT 4 mg Tab-Dis 4 mg = 1 tab(s), Oral, q8hr, PRN Nausea, # 12 tab(s), Refills(s) 0, [facility], [facility], cm, 02/26/21 23:25:00 EST, Height/Length Dosing, 58.8, kg, 02/26/21 23:25:00 EST, Weight Dosing Start Date: 02/27/21 Status: Ordered Completed/Discontinued Medications MedicationDrug Class(es)DatesSig (Normalized)Sig (Original)alendronic acid 40 mg oral tablet (9 sources)BisphosphonateStart: 48-26-7099Rfgcespcdkk Sodium 40 MG TABS TAKE 1 TABLET Daily for 6 weeks Quantity: 45 Refills: 0 Ordered: 25-Oct-2016 Madeleine Marshall MD Start : 25-Oct-2016 Activeamoxicillin 875 mg oral tablet (3 sources)Penicillin-class AntibacterialStart: 04-06-2024 End: 73-38-3262lbaw 1 tablet by mouth every twelve hoursAmoxicillin 875 mg tablet Discontinued 875 MG PO Every 12 hours 27 12April 06, 2024 1:00am May 25, 2024 6:15pmazithromycin 250 mg oral tablet (20 sources)Macrolide AntimicrobialStart: 12-22-2023 End: 60-89-8371eljuajwqlkfo (Zithromax) 250 MG tablet Indications: Acute recurrent maxillary sinusitis 2 pills orally today, then 1 pill orally daily for 4 days 6 tablet 05/31/2024 10/06/2024 Discontinuedbrompheniramine maleate 0.4 mg/ml / dextromethorphan hydrobromide 2 mg/ml / pseudoephedrine hydrochloride 6 mg/ml oral solution (14 sources)alpha-Adrenergic Agonist, Uncompetitive Y-pzvdac-X-aspartate Receptor Antagonist, Sigma-1 AgonistStart: 12-22-2023 End: 16-24-0511uvwnymvrpzebpto-pseudoephedrine-DM 30-2-10 MG/5ML syrup Indications: URI, acute Take 10 mL by mouth4 (four) times a day as needed for cough or congestion (q6hrs) 200 mL 12/22/2023 05/31/2024 Vwmoboqjqyvk42 hr buPROPion hydrochloride 150 mg extended release oral tablet (6 sources)AminoketoneStart: 10-05-2021 End: 91-20-7820idkl 1 tablet by mouth once dailyBupropion Hcl 150 mg tablet sustained-release 12 hr Discontinued 150 MG PO Daily October 05, 2021 12:00am April 06, 2024 2:20pmtake 1 tablet by mouth twice dailybuPROPion (WELLBUTRIN SR) 150 MG extended release tablet Take 150 mg by mouth 2 times daily 0 Active busPIRone hydrochloride 15 mg oral tablet (6 sources)Start: 10-05-2021 End: 50-06-8357crha 1 tablet by mouth once dailyBuspirone 15 mg tablet Discontinued 15 MG PO Daily October 05, 2021 12:00am April 06, 2024 2:20pm cephalexin 500 mg oral capsule (5 sources)Cephalosporin AntibacterialStart: 06-23-2017 End: 76-28-5008fofn 1 capsule by mouth every twelve hoursCephalexin 500 mg capsule Discontinued 500 MG PO Q12H June 23, 2017 12:00am August 21, 2018 10:17amfamotidine 40 mg oral tablet (20 sources)Histamine-2 Receptor AntagonistStart: 09-17-2023 End: 97-50-7638diaj 1 tablet by mouth once dailyfamotidine (Pepcid) 40 MG tablet Indications: Gastroesophageal Reflux Disease Take 1 tablet (40 mg)by mouth Daily 30 tablet 5 09/17/2023 05/31/2024 DiscontinuedStart: 54-56-1278lemw 1 tablet by mouth twice dailyfamotidine (PEPCID) 20 mg tablet Take 20 mg by mouth two times a day. 0 04/23/2023 ActiveStart: 04-07-2023 End: 79-55-0873qmtw 1 tablet by mouth once daily at bedtimePepcid 20 mg Tab 20 mg = 1 tab(s), Oral, Once a day (at bedtime), X 90 day(s), # 90 tab(s), Refills( s) 0, Pharmacy: [facility]/pharmacy #[id number], 157, cm, 04/07/23 10:57:00 EST, Height/Length Dosing, 65.7, kg,04/07/23 10:57:00 EST, Weight Dosing Start Date: 04/07/23 Stop Date: 07/06/23 Status: OrderedComment on above:Take 20 mg by mouth two times a day.famotidine (PEPCID) 20 mg in sodium chloride (PF) 0.9 % 10 mL injection (1 source)Start: 04-11-2022 End: 22-18-5009plsdgnzjzq (PEPCID) 20 mg in sodium chloride (PF) 0.9 % 10 mL injectionfluticasone propionate 0.05 mg/actuat metered dose nasal spray (15 sources)CorticosteroidStart: 05-31-2024 End: 70-59-1193fimb 2 spray(s) nasal route once dailyfluticasone (Flonase) 50 MCG/ACT nasal spray Indications: Acute recurrent maxillary sinusitis Administer 2 sprays into each nostril Daily Shake gently. Before first use, prime pump. After use, clean tip and replace cap. 05/31/2024 10/06/2024 DiscontinuedStart: 14-77-8106opba 2 spray(s) nasal route once dailyFluticasone Propionate (Flonase Allergy Relief) 50 mcg/actuation spray,suspension Active 2 SPRAY INTRANASAL Daily April 06, 2024 1:00am administer 2 spray into each nostril1 ml ketorolac tromethamine 15 mg/ml cartridge (1 source)Nonsteroidal Anti-inflammatory Drug, Cyclooxygenase InhibitorStart: 04-11-2022 End: 97-12-3916cxtylmbtc (TORADOL) injection 15 mg1 ml morphine sulfate 4 mg/ml injection (1 source)Opioid AgonistStart: 04-11-2022 End: 55-46-0875nmyogijf sulfate (PF) injection 2 mgStart: 04-11-2022 End: 87-24-7340giqdrowt sulfate (PF) injection 2 mgpantoprazole 20 mg delayed release oral tablet (13 sources)Proton Pump InhibitorStart: 03-30-2023 End: 65-91-2051slws 2 tablets by mouth twice dailyPantoprazole (Protonix) 20 mg tablet,delayed release (DR/EC) Discontinued 40 MG PO Twice daily March 30, 2023 1:00am April 06, 2024 2:07pmStart: 03-24-2023 End: 62-92-9183unhb 1 tablet by mouth once dailyPantoprazole (Protonix) 40 mg tablet,delayed release (DR/EC) Discontinued 40 MG PO Daily 14 March 24, 2023 1:00am April 06, 2024 2:21pmStart: 93-17-1952eqdm 1 tablet by mouth once dailypantoprazole 40 mg Oral EC Tab 40 mg = 1 tab(s), Oral, Daily, # 30 tab(s), Refills(s) 0 Start Date:03/13/21 Status: Udmljtr15 ml sodium chloride 9 mg/ml injection (1 source)Start: 04-11-2022 End: .9 % sodium chloride bolustopiramate 25 mg oral tablet (1 source)Start: 71-43-7202Icexcamdsu 25 MG Oral Tablet 25mg tabs titrate to 100mg bid per protocol faxed to pharm Quantity: 196 Refills: 0 Madeleine Marshall MD Start : 25-Oct-2016 ActivetraMADol hydrochloride 50 mg oral tablet (14 sources)Opioid AgonistStart: 10-05-2021 End: 96-61-0735cvyy 1 tablet by mouth once dailyTramadol 50 mg tablet Discontinued 50 MG PO Daily October 05, 2021 12:00am April 06, 2024 2:21pm Start: 25-30-7408ohkenkhh Refills(s) 0 Start Date: 08/17/19 Status: OrderedStart: 06-23-2017 End: 38-72-2213Fjqggvzz 50 mg tablet Discontinued 50 MG PO As Directed as needed for Pain June 23, 2017 12:00amJune 2018 2:20pm Problems Active Problems Problem ClassificationProblemDateDocumented DateEpisodic/ChronicAnxiety disorders (20 sources)Anxiety attack ; Translations: [Panic disorder [episodic paroxysmal anxiety]]Onset: 662488-31-5632SyyekqdHwmlqrx kidney disease (20 sources)Chronic kidney disease stage 3A ; Translations: [Stage 3a chronic kidney disease (HCC)]Onset: 294692-50-4525ZwdrzqtSulgnieetu disorders (20 sources)Gastroesophageal reflux disease without esophagitis; Translations: [Gastro-esophageal reflux disease without esophagitis]Onset: 75-83-5076Mycyfgy Essential hypertension (20 sources)Essential (primary) hypertension; Translations: [Hypertensive disorder]Onset: 020567-27-4232LgtcaprRpolc and electrolyte disorders (2 sources)Dehydration; Translations: [Hypokalemia]Onset: 73-88-8924Liqdbizt Fracture of upper limb (8 sources)Fracture of unspecified phalanx of right little finger, initial encounter for closed fracture; Translations: [Displaced fracture of middle phalanx of right middle finger, initial encounter for closedfracture]Onset: 71-62-3046PjkpgvhmGklwqsmbg and duodenitis (5 sources)Gastritis; Translations: [Gastritis, unspecified, without bleeding] 13-82-9162MnzkonfeCvnhhxklhjfli symptoms and ill-defined conditions (10 sources)Urinary incontinence; Translations: [Unspecified urinary incontinence]87-45-7955ZnfqccbRppmbgod; including migraine (10 sources)Headache; Translations: [Nonintractable headache, unspecified chronicity pattern, unspecified headache type]Onset: EpisodicHeadache; including migraine (1 source)Headache; including migraine; Translations: [Headache, unspecified] Onset: 16-43-7811Hybvrpnwqzbsu and screening for infectious disease (2 sources)Vaccination needed; Translations: [Encounter for immunization] 22-05-5523UsjdosliDqjnxopmthae; infection of eye (except that caused by tuberculosis or sexually transmitteddisease) (7 sources)Conjunctivitis; Translations: [Unspecified conjunctivitis]06-23-2017 EpisodicMenopausal disorders (4 sources)Atrophy of vagina; Translations: [Postmenopausal atrophic vaginitis] 80-71-1589TrymcswBuyv disorders (20 sources)Bipolar disorder, currently in remission, most recent episode unspecified; Translations: [Bipolar disorder, unspecified]Onset: 05-10-2016 72-15-3805GoncfusValrxsa (2 sources)Mycosis; Translations: [Candidiasis, unspecified]14-32-8541Cueimlog Nausea and vomiting (20 sources)Nausea with vomiting, unspecified; Translations: [Nausea]Onset: 66-50-7726PktdgpggVlkzjarvlma chest pain (5 sources)Chest pain; Translations: [Chest pain, unspecified]08-30-5646Frnqgyny Osteoarthritis (20 sources)Primary osteoarthritis, right hand; Translations: [Arthritis]Onset: 745380-19-3389OrzulnvSawnt acquired deformities (5 sources)Contracture of joint; Translations: [Contracture of joint, site unspecified]ChronicOther acquired deformities (3 sources)Contracture, right hand; Translations: [Contracture, right hand] Onset: 67-29-9442OhjqilmBqkio acquired deformities (20 sources)Contracture of joint of right hand; Translations: [Contracture, right hand]Onset: 493751-41-3077QlztwcnLjinh acquired deformities (1 source)Unspecified acquired deformity of hand, right hand; Translations: [Unspecified acquired deformity of hand, right hand]Onset: 51-01-5941Ffbuqojo Other aftercare (1 source)Other group home (current) drug therapy; Translations: [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 THERAPY]Onset: 50-55-4579BafzfixtUyeme connective tissue disease (9 sources)Foot pain; Translations: [Pain in limb]EpisodicOther endocrine disorders (4 sources)Disorder of endocrine system; Translations: [Endocrine disorder, unspecified]74-85-7288LzccltxoXoste gastrointestinal disorders (20 sources)Irritable bowel syndrome; Translations: [Irritable bowel syndrome without diarrhea]Onset: 260024-57-6790ZikaxdaZjncg gastrointestinal disorders (1 source)Constipation; Translations: [Constipation, unspecified]EpisodicOther gastrointestinal disorders (5 sources)Mucus in stool; Translations: [Other fecal abnormalities]08-21-2018 EpisodicOther liver diseases (20 sources)Steatosis of liver; Translations: [Fatty (change of) liver, not elsewhere classified]Onset: 51-75-1985OwlaocpVkoli lower respiratory disease (5 sources)Nodule of lung; Translations: [Solitary pulmonary nodule]03-24-2023 EpisodicOther nervous system disorders (1 source)Other chronic pain; Translations: [OTHER CHRONIC PAIN]Onset: 63-54-5957UsqmdxfJuqfd nervous system disorders (1 source)Chronic pain syndrome; Translations: [CHRONIC PAIN SYNDROME]Onset: 64-05-6900ReqmvcyKddou nervous system disorders (1 source)Complex regional pain syndrome I of left lower limb; Translations: [Complex regional pain syndrome I of left lower limb]Onset: 45-04-3955Lnavzkk Other nervous system disorders (20 sources)Complex regional pain syndrome type I of left lower limb; Translations: [Reflex sympathetic dystrophy of the lower limb]Onset: 12-15-2022 55-86-8114MmvlycqMgcdq nervous system disorders (20 sources)Complex regional pain syndrome type I; Translations: [Complex regional pain syndrome I, unspecified]Onset: 582108-17-6797IlwcnssEirtu nervous system disorders (15 sources)Chronic pain syndrome; Translations: [Chronic pain syndrome] 43-44-5240LerrzifCrucr nervous system disorders (20 sources)Neuropathy; Translations: [Polyneuropathy, unspecified]Onset: 311246-57-3458DjpemwcOkvzm nervous system disorders (20 sources)Chronic pain; Translations: [Other chronic pain]Onset: 08-15-2022 85-14-9358EzldwjiYeshs nervous system disorders (5 sources)Postoperative pain ; Translations: [Other acute postoperative pain] EpisodicOther nervous system disorders (3 sources)Other acute postprocedural pain; Translations: [Other acute postprocedural pain]Onset: 14-07-5358HcjcmemhJkdfj screening for suspected conditions (not mental disorders or infectious disease) (5 sources)Imaging result abnormal; Translations: [Abnormal findings on diagnostic imaging of other specified body structures]Onset: 86-37-1601Dechlvy Other screening for suspected conditions (not mental disorders or infectious disease) (5 sources)Screening for malignant neoplasm of colon done; Translations: [Encounter for screening for malignant neoplasm of colon]Onset: 04-07-2023 EpisodicOther upper respiratory infections (8 sources)Acute upper respiratory infection; Translations: [Acute upper respiratory infection, unspecified]77-11-6394KxvjebtcNlsbtwfr codes; unclassified (1 source)Acquired absence of other specified parts of digestive tract; Translations: [ACQ ABSENCE OTH PART DIGESTV TRACT]Onset: 96-82-8044Esylihqc Residual codes; unclassified (1 source)Acquired absence of both cervix and uterus; Translations: [ACQUIRED ABSENCE BOTH CERVIX AND UTERUS]Onset: 56-97-9422DmgcdjvdWsdgojqm codes; unclassified (5 sources)Family history of cancer of colon; Translations: [Family history of malignant neoplasm of digestiveorgans]99-83-6342JotpbkypEjixirwscd arthritis and related disease (1 source)Other specified spondylopathies, lumbar region; Translations: [OTH SPEC SPONDYLOPATHIES LUMBAR RGN]Onset: 81-71-9141JfidwfnHiinuwhubds; intervertebral disc disorders; other back problems (20 sources)Spondylosis without myelopathy or radiculopathy, lumbar region; Translations: [Other intervertebraldisc degeneration, lumbar region]Onset: 12-97-1484WqqfrpfUektrvq disorders (20 sources)Hypothyroidism; Translations: [Hypothyroidism, unspecified]Onset: 450953-34-0966KkbzfqyLkwrssrcbxvd (1 source)LOW BACK PAIN, UNSPECIFIED; Translations: [LOW BACK PAIN, UNSPECIFIED] Onset: 26-26-4746Aohrwxznkndv (4 sources)Patient encounter -94-5928Thmqkisryzuh (2 sources)Post-op; Translations: [Post-op]Onset: 10-06-2024 Past or Other Problems Problem ClassificationProblemDateDocumented DateEpisodic/ChronicAbdominal pain (20 sources)Flank pain; Translations: [Unspecified abdominal pain]Onset: 44-33-2826KqgqybdcGxrqktti of urinary tract (20 sources)Kidney stone; Translations: [Calculus of kidney]Onset: 06-10-2022 EpisodicComplication of device; implant or graft (2 sources)Pain due to internal orthopedic prosthetic devices, implants and grafts, initial encounter; Translations: [Pain due to internal orthopedic prosthetic devices, implants and grafts, initial encounter]Onset: 11-20-2023 EpisodicConditions associated with dizziness or vertigo (19 sources)Dizzy spells; Translations: [Dizziness and giddiness]Onset: 846005-50-2374FkatwvhmU Codes: Other specified and classifiable (1 source)Caught, crushed, jammed, or pinched between moving objects, initial encounter; Translations: [CAUGHT CRUSH/PINCH BTWN MOV OBJ INT]Onset: 11-05-2021 EpisodicGenitourinary symptoms and ill-defined conditions (20 sources)Delay when starting to pass urine; Translations: [Hesitancy of micturition]Onset: 425123-07-3033HwgkmerbHvxrt disorders and dislocations; trauma-related (20 sources)Dislocation of proximal interphalangeal joint of right little finger, initial encounter; Translations: [Dislocation of digit of hand]Onset: 355208-04-1650RgoebwlhItooz connective tissue disease (4 sources)Pain in right finger(s); Translations: [PAIN IN RIGHT FINGERS]Onset: 27-04-9460CymusvvfDbqwt connective tissue disease (1 source)Pain in right leg; Translations: [PAIN IN RIGHT LEG]Onset: 09-13-2021 EpisodicOther connective tissue disease (2 sources)Trigger finger, unspecified finger; Translations: [Trigger finger, unspecified finger]Onset: 44-26-0628FsdfvovlSqtoq gastrointestinal disorders (1 source)Constipation, unspecified; Translations: [CONSTIPATION UNSPECIFIED] Onset: 98-08-3034XsnuikfaAdlws gastrointestinal disorders (20 sources)Dysphagia; Translations: [Dysphagia, unspecified]Onset: 06-10-2022 EpisodicOther gastrointestinal disorders (20 sources)Heartburn; Translations: [Heartburn]Onset: EpisodicOther lower respiratory disease (20 sources)Solitary nodule of lung; Translations: [Solitary pulmonary nodule] Onset: 474124-88-4254DzdbdbcuDgfyz nervous system disorders (1 source)Complex regional pain syndrome type I of left lower limb; Translations: [Complex regional pain syndrome type 1 of left lower extremity] Residual codes; unclassified (20 sources)Insomnia; Translations: [Insomnia, unspecified]Onset: 01-23-2018 55-63-6713LlppmwlkKngxnlxt codes; unclassified (20 sources)History of fundoplication; Translations: [Other specified postprocedural states]Onset: 950099-16-5631QamsvjidFfwvipwl codes; unclassified (2 sources)Pain, unspecified; Translations: [Pain, unspecified]Onset: 09-20-2024 EpisodicResidual codes; unclassified (2 sources)Pain; Translations: [Pain]Onset: 62-92-4640RklcxrxcVrjantuvjxg; intervertebral disc disorders; other back problems (5 sources)Intervertebral disc disorders with radiculopathy, lumbar region; Translations: [Radiculopathy, lumbar region]Onset: 13-37-3821Qcmykidw Results Test NameValueInterpretationReference IdpmwCcmoqyvm54qk [id number] by: VADIM DORADO on: 12/27/2024 10:48 AM Modules accepted: Level of ServiceNormalUniParkview Health Montpelier Hospital Office Visiton 20-39-8300Zgdnsr-up [id number] Tasneem Camarillo N 1975 F Date Provider Department Center 12/21/2024 VADIM KISER MP ORTHO MPORTHO No family history on file Level of Service:01597 RI OFFICE/OUTPATIENT ESTABLISHED SF MDM 10 MIN Reason for Visit and Comments: Follow-up [708310] Work Related Injury [[id number]] Pain [136]NormalMartin Memorial HospitalProvider Letteron 11-22-2024 Provider LetterProvider Letter November 22, 2024 TASNEEM CAMARILLO [address] [place] [phone] : 1975 Dear Tasneem, We have been trying to reach you with no success. It is important that you return our call regarding your referral to our office upon receiving this letter. Also, at the time of your call, please provide us with your current information. Thank you for your prompt attention to this matter. Sincerely, [facility] [address] [place]aryl [place], [place] [address]WqkfpwMovdqsZanesville City HospitalOffice Visiton 11-02-2024 Follow-up [id number] Tasneem Camarillo 1975 F Date Provider Department Center 11/02/2024 VADIM KISER MP ORTHO MPORTHO No family history on file Level of Service:23549 RI POSTOP FOLLOW UP VISIT RELATED TO ORIGINAL PX Reason for Visit and Comments: Follow-up [393823]NormalUnSt. Mary's Medical [facility] Campus36on 23-89-376947L just spoke to Julienne and we need something more specific then activities as tolerated. Workers comp will not accept this. ThanksNoKettering Health Behavioral Medical Center36Thank you,[facility]36She can return to activities as tolerated, he did not put weight restrictions or anything,[facility]36Will she have a weight limit with the right hand or does he want her to remain off work while she works on returning to activities? Thanks,[facility] HospitalTelephoneon 69-96-3372Xvifxujxo [id number] Tasenem Camarillo 1975 F Date Provider Department Center 10/11/2024 VADIM KISER MP ORTHO MPORTHO No family history on fileNormOhio State Harding HospitalTelephone [id number] Tasneem Camarillo 1975 F Date Provider Department Center 10/11/2024 VADIM KISER MP ORTHO MPORTHO No family history on file Reason for Visit and Comments: WORK RESTRICTIONS [Other][facility] HospitalOffice Visiton 04-29-0765Vhnzex-up [id number] Tasneem Camarillo 1975 F Date Provider Department Center 10/06/2024 VADIM KISER MP ORTHO MPORTHO No family history on file Level of Service:78482 RI POSTOP FOLLOW UP VISIT RELATED TO ORIGINAL PX Reason for Visit and Comments: Post-op [483][facility]36on 09-28-939058Nloj new letter was sent inNLakeHealth Beachwood Medical Center36Patient called and states her work will not accept the note. They state that they have to have have: Return to work date with 0 restrictions Dx of injury And Physical signature of Please fax note to dept-Renay fax- [phone]. 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 Or email [email or web address] Health Montpelier HospitalOrders Onlyon 62-67-4720Tzoddd [id number] Tasneem Camarillo 1975 F Date Provider Department [place] 09/23/2024 803-ERGAN MOREL MP ORTHO MPORTHO No family history on fileNormalUnidoctors hospital of laredo of [facility] BrownwoodOrders Only [id number] Tasneem Camarillo N 1975 F Date Provider Department [place] 09/23/2024 803-REGAN MOREL [facility] No family history on fileNormalUcedar park regional medical center of [facility] BrownwoodTelephoneon [id number] Tasneem Camarillo N 1975 Date Provider Department [place] 09/23/2024 PÉREZ HERNANDEZ MP ORTHO MPORTHO No family history on file Reason for Visit and Comments: work note [Other]NormalUnSt. Mary's Medical Center, Iront[facility] CampusHPon 07-86-5512ZS History Of Present Illness Tasneem Camarillo is [...] file Stress: No Stress Concern Present (02/26/2022) [employer] - Occupational Stress Questionnaire [...] Gerard Lopez MD Orthopedic Surgery, PGY-4 Pager: [phone] 09/20/24 6:38 AM [1] Past Medical History: [...] tablet 5 mg if needed each day. wftbzwselv-ydxkiyqnerzvh-ntxm 50-325-40 mg tablet Take 1 tablet by [...] (Zanaflex) 4 mg capsule 2 mg at bedtime.[facility] HospitalNURSNOTEon 61-94-9857ETUWLTZKPH reviewed discharge instructions with patient and at bedside. No questions or concerns expressed at this time. RN received verbal sign out from Dr. Peres of [facility] BrownwoodNURSNOTEPatient informed literary writer she does not wish to fill any prescriptions with [facility] today. Patient already has pain medications and stool softners at home.[facility] HospitalOPNOTEon 23-28-0131SAUWWXZzpsgmdjn Note Patient: Tasneem Camarillo Date of Surgery: 09/20/2024 : 1975 Pre-operative Diagnosis: 1. 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 trigger digit right small finger Post-operative Diagnosis: same Operation: 1. Fusion distal interphalangeal joint right small finger (38258) 2. Trigger digit release right small finger Surgeon: Vadim Dorado MD Tumbler Drier Operator: MD Jose Herrera MD Staff: Chart Picker: Mohit Talamantes RN Scrub Person: Josephine Mckinley [...] prepared, the joint was fused using a Flickmeartis 1.7 mm headless compression screw. Using a [...] SCREW, LONG THREADED Implante (more content not included)...NormalUnSt. Mary's Medical Center, [facility]onton CampusPOCT GLUCOSE METER UNSOLICITED RESULTSon 41-66-9893Mwenkjh [Mass/Vol]90 mg/mHKwvcmm13-370OtpjqnuxarSt. Mary's Medical Center, Ironton CampusComment on above:Order Comment: Waived Testing in the ED is performed under the ED CLIA certificate #[id number].Result Comment: nycamqz2Uvpiudtdi By: #### [id number] ####[facility] ([facility])[address] [place], [place] [address]PQ LUMBAR SPINE WO CONon 83-15-2051[place]cj[place] [address] Magnetic Resonance Report Signed Patient: TASNEEM CAMARILLO MR#: [id number] : 1975 Acct:[id number] Age/Sex: 49 / F ADM Date: 09/13/24 Loc: MRI Attending Dr: Iraida Reynoso NP Ordering Physician: Iraida Reynoso NP Date of Service: 09/13/24 Procedure(s): MR lumbar spine wo con Accession Number(s): [id number] cc: Iraida Reynoso NP; Ryan PEPPER [place] [id number] Patient Name: TASNEEM CAMARILLO MRN: [id number] date: 1975 Sex: F Assigned Patient Location: MRI Current Patient Location: PM Accession/Order Number: [id number] Exam Date: 09/13/2024 19:31 Report Date: 09/13/2024 [...] Combs M.D. 09/13/2024 7:35 PM Dictation Location: [place] [address] Electronically authenticated by: [id number] Y Date: 09/13/2024 19:35 Dictated By: Kymberly Combs M.D. Signed By: 09/13/241937 DD/ 34 TD/TT: Associate Software Development Engineer:TBHRadiology, Radiologist, MD - 09/13/2024 [place] [address] Magnetic Resonance Report Signed Patient: TASNEEM CAMARILLO MR#: [id number] : 1975 Acct:[id number] Age/Sex: 49 / F ADM Date: 09/13/24 Loc: MRI Attending Dr: Iraida Reynoso NP Ordering Physician: Iraida Reynoso NP Date of Service: 09/13/24 Procedure(s): MR lumbar spine wo con Accession Number(s): [id number] cc: Iraida Reynoso NP; Ryan PEPPER [address] [address] Patient Name: TASNEEM CAMARILLO MRN: [id number] date: 1975 Sex: F Assigned Patient Location: MRI Current Patient Location: PM Accession/Order Number: [id number] Exam Date: 09/13/2024 19:31 Report Date: 09/13/2024 [...] Combs M.D. 09/13/2024 7:35 PM Dictation Location: [employer] Electronically authenticated by: [id number] Y Date: 09/13/2024 19:35 Dictated By: Kymberly Combs M.D. Signed By: 09/13/241937 DD/ 34 TD/TT: Associate Software Development Engineer: RUTH HealthcareRadiology Study observation (narrative)[facility] WashingtonMR LUMBAR SPINE WO CONOrdered By: Radiologist Radiology on 78-66-7974BOUGMercy Hospital Washington Work Phone: [phone] 75-36-075742Bfkbuoj is having new farms emailed to me and I will get it filled out and faxed over ASAPNLakeHealth Beachwood Medical Center36Patient states she hasn't heard back if her FMLA paperwork was complete. I dont see anything scanned in.NormalMartin Memorial HospitalAbstracton [id number] Tasneem Camarillo 1975 F Date Provider Department Center 09/09/2024 REGAN JENNINGS MPRTSIDDHARTH No family history on fileNormalUniParkview Health Montpelier HospitalBacteria identified Cx Nom (U)on 94-54-6724QKPFMercy Hospital WashingtonNo Panel Informationon 46-95-0977Sfqxarvwr at: [facility] LabKaitlyn Ville [id number] Radio Equipment Installer: Dayron Hutchinson PhD, Phone: [phone] Culture Clean Catch Reflexon 86-08-3119Bevnmbiv identified Cx Nom (U)CommentNOSaint Francis Hospital & Health Services Comment on above:Mixed urogenital erick Less than 10,000 colonies/mL [facility] HealthcareUrine cultureon 32-52-1702Ckgyrolh identified Cx Nom (U)Final reportMercy Hospital Washington36on 80-63-525587Wcadzpa is scheduled for September 20NoBlanchard Valley Health System Blanchard Valley HospitalOrders Onlyon 99-05-5063Hvyfko [id number] Tasneem Camarillo 1975 F Date Provider Department Center 08/11/2024 REGAN JENNINGS MP No family history on [facility]36on 90-56-634732Pggjcmu returned call. Please call patient to schedule surgery. Patient # [phone] of [facility] Utxnbc09ti LVM to call back to schedule surgeryNormalUniversAvita Health System Galion Hospital36 on 88-49-768754IJE authorization on file for OUTPATIENT SX- RT SMALL FINGER DIP FUSION, RT SMALL FINGER TRIGGER FINGER RELEASE Valid 08/05/2024-10/05/2024NormalUniversAvita Health System Galion HospitalTelephoneon [id number] Tasneem Camarillo Rafi 1975 F Date Provider Department Center 08/06/2024 3408-TRACY DORADO MP ORTHO MPORTHO No family history on file Reason for Visit and Comments: [facility] AUTH [Other]NormalUnSt. Mary's Medical Center, Ironton CampusLaboratory - Cytologyon 45-94-1189Tknjmmrist Cyto stain Nom (Cvx/Vag) [ID]CommentNOMS HealthcareComment on above:Esme Galvez, Slabber (ASCP)Cytology report Cyto stain Doc (Cvx/Vag)CommentNOMS HealthcareComment on above:NEGATIVE FOR INTRAEPITHELIAL LESION OR MALIGNANCY. CELLULAR CHANGES ASSOCIATED WITH ATROPHY ARE PRESENT. Cytology report Cyto stain.thin prep Doc (Cvx/Vag)CANCELEDNOMS HealthcareComment on above:The Thin Prep(R) Product Scientist was unable to read this specimen. Therefore a manual review was performed. Result canceled by the ancillary. Statement of adequacy Cyto stain (Cvx/Vag) [Interp]CommentNOMS HealthcareComment on above:Satisfactory for evaluation. Endocervical component may not be distinguished in cases of atrophy. Laboratory - Microbiology and Antimicrobial susceptibilityon 51-70-4327VLU 16+18+31+33+35+39+45+51+52+56+58+59+66+68 DNA Probe+sig amp Ql (Cvx)Negative NegativeNOMS HealthcareComment on above:This nucleic acid amplification test detects fourteen high-risk HPV types (16,18,31,33,35,39,45,51,52,56,58,59,66,68) without differentiation. Microscopic observation Other stain Nom (Unsp spec).NOMS HealthcareLaboratory - Miscellaneous testson 08-71-1230Nksmfja comment (Unsp spec) [Interp]CommentNOAR HealthcareComment on above:The Pap smear is a screening test designed to aid in the detection of premalignant and malignant conditions of the uterine cervix. It is not a diagnostic procedure and should not be used as the sole means of detecting cervical cancer. Both false-positive and false-negative reports do occur. No Panel Informationon 45-48-3682Ikupgaxag ICD code [Identifier]CommentNOAR HealthcareComment on above:Z01.419 Z12.4 Performed at: 01 - [facility] [id number] Radio Equipment Installer: Syeda Ardon MD, Phone: [phone] Performed at: - [facility] [id number] Radio Equipment Installer: Syeda Ardon MD, Phone: [phone] Specimen Comment: No. of containers..01 ThinPrep VialLABCOKETTERING [facility] Healthcare Office Visiton 45-64-2349Zkytll-up [id number] Tasneem Camarillo 1975 F Date Provider Department Center 07/13/2024 VADIM KISER MP ORTHO MPORTHO No family history on file Level of Service:75714 RI OFFICE/OUTPATIENT ESTABLISHED LOW MDM 20 MIN (GC) Reason for Visit and Comments: Follow-up [037485]NormalMartin Memorial HospitalAlanine aminotransferase [Enzymatic activity/volume] in Serum or PlasmaOrdered By: Yamil Leal on 98-29-8686NMT [Catalytic activity/Vol]Alanine aminotransferase [Enzymatic activity/volume] in Serum or Plasma7-[facility] Citizens HospitalAlbumin [Mass/volume] in Serum or Plasma by Bromocresol green (BCG) dye binding methoOrdered By: Yamil Leal on 78-34-8185Vfczjea BCG dye [Mass/Vol] Albumin [Mass/volume] in Serum or Plasma by Bromocresol green (BCG) dye binding metho3.5-5.7FTrinity Health SystemAlkaline phosphatase [Enzymatic activity/volume] in Serum or PlasmaOrdered By: Yamil Leal on 80-70-1962NBO [Catalytic activity/Vol]Alkaline phosphatase [Enzymatic activity/volume] in Serum or Iyvref01-297VjohizkoyBarberton Citizens HospitalAspartate aminotransferase [Enzymatic activity/volume] in Serum or PlasmaOrdered By: Yamil Leal on 47-05-9570QXF [Catalytic activity/Vol]Aspartate aminotransferase [Enzymatic activity/volume] in Serum or Qmzugp97-49DcactoqckBarberton Citizens Hospital Basophils Auto (Bld) [#/Vol]Ordered By: Yamil Leal on 39-88-0229Nqpcizlad (Bld) [#/Vol]Automated basophil count0.0-0.2FTrinity Health System Basophils/100 WBC Auto (Bld)Ordered By: Yamil Leal on 61-86-6675Jgsixskmh/100 WBC (Bld)Automated basophil %.Bar[facility]ton Citizens HospitalBilirubin.total [Mass/volume] in Serum or PlasmaOrdered By: Yamil Leal on 20-81-8699Zjokzfpps [Mass/Vol]Bilirubin.total [Mass/volume] in Serum or Plasma0.3-1.0Barberton Citizens HospitalCT head/brain wo conon 99-45-8258TH head/brain wo con [facility] [place] [address] CT Scan Report Signed Patient: Tasneem Camarillo MR#: [id number] 477 : 1975 Acct:[id number] Age/Sex: 49 / F ADM Date: 06/12/24 Loc: ER Room: Type: [facility] ER Attending Dr: Copies to: Yamil Leal [...] Nikolay Zuniga M.D.06/12/2024 6:24 PM Dictation Location: [place] [address] Transcribed By: [facility] 06/12/241823 Dictated By: Nikolay Zuniga MD 06/12/241820 Signed By: 06/12/241823[facility] Physician GroupCalcium [Mass/volume] in Serum or PlasmaOrdered By: Yamil Leal on 38-30-2019Efgybfj [Mass/Vol]Calcium [Mass/volume] in Serum or Plasma8.6-10.3FTrinity Health SystemCarbon dioxide, total [Moles/volume] in Serum or PlasmaOrdered By: Yamil Leal on 85-45-7115GD9 [Moles/Vol]Carbon dioxide, total [Moles/volume] in Serum or Plasma 21.0-31.0Bar[facility] Citizens HospitalChloride [Moles/volume] in Serum or PlasmaOrdered By: Yamil Leal on 94-44-8802Xcmfbenq [Moles/Vol]Chloride [Moles/volume] in Serum or Flsboj95-925GilohrboyBarberton Citizens HospitalComplete Blood Count Auto Diffon 89-63-3747Agsstswxf (Bld) [#/Vol]0.1 10*3/uLNormal 0.0-0.2[facility] Physician GroupComment on above:Performed By: #### CMP, ESR, CBC ####[facility] [address] [place] [address] USABasophils/100 WBC (Bld)1.5 %Normal.The [facility] Physician GroupComment on above:Performed By: #### CMP, ESR, CBC ####[facility] [address] [place] [address] USAEosinophils (Bld) [#/Vol]0.1 10*3/uLNormal 0.0-0.45The [facility] Physician GroupComment on above:Performed By: #### CMP, ESR, CBC ####[facility] [address] [place] [address] USAEosinophils/100 WBC (Bld)2.1 %Normal.The [facility] Physician GroupComment on above:Performed By: #### CMP, ESR, CBC ####[place] [address] USAErythrocyte distribution width (RBC) [Ratio] 13.9 %Ifrjxz31.9-15.3The [facility] Physician GroupComment on above:Performed By: #### CMP, ESR, CBC ####[place] [address] USAHematocrit (Bld) [Volume fraction]37.9 %Wslwhs41.0-46.4The [facility] Physician GroupComment on above:Performed By: #### CMP, ESR, CBC ####[address] Hemoglobin (Bld) [Mass/Vol]12.8 g/tMEcgysn18.8-15.4[facility] Comment on above:Performed By: #### CMP, ESR, CBC ####[place] [address] USALymphocytes (Bld) [#/Vol]2.4 10*3/uL Normal1.00-4.8The [facility] Physician GroupComment on above:Performed By: #### CMP, ESR, CBC ####[place] [address] USALymphocytes/100 WBC (Bld)36.7 %Normal.[facility] Comment on above:Performed By: #### CMP, ESR, CBC ####[place] [id number] [facility]ITALMCH (RBC) [Entitic mass]30.3 pgNormal 24.7-34.3The [facility] Physician GroupComment on above:Performed By: #### CMP, ESR, CBC ####[place] [id number] USAMCV (RBC) [Entitic vol]89.7 jNTtrdey60-805Ixn [facility]ician [facility] Comment on above:Performed By: #### CMP, ESR, CBC ####[address] [place] [address] USAMean Corpuscular HGB Conc33.8 g/dL Ainxqw57.0-35.0The [facility] Physician GroupComment on above:Performed By: #### CMP, ESR, CBC ####[place] [id number] USAMonocytes (Bld) [#/Vol]0.6 10*3/uLNormal0.0-0.8The [facility] Physician GroupComment on above:Performed By: #### CMP, ESR, CBC ####[place] [address] USAMonocytes/100 WBC (Bld)19.33 % Normal0.00-20.00The [facility] Physician GroupComment on above:Performed By: #### CMP, ESR, CBC ####[place] [address] USAMonocytes/100 WBC (Bld)9.4 %Normal.[facility] Physician GroupComment on above:Performed By: #### CMP, ESR, CBC ####[address] [address] USANeutrophils (Bld) [#/Vol]3.3 10*3/uL Normal1.8-7.7The [facility] Physician GroupComment on above:Performed By: #### CMP, ESR, CBC ####[place] [address] USANeutrophils/100 WBC (Bld)50.3 %Normal.[facility] Comment on above:Performed By: #### CMP, ESR, CBC ####[place] [address] USANRBC%0.1 /100{WBC}Normal0-0.5The [facility] Physician GroupComment on above:Performed By: #### CMP, ESR, CBC ####[place] [address] [place] Platelet mean volume (Bld) [Entitic vol]8.7 fLNormal6.3-10.7The [facility] Physician GroupComment on above:Performed By: #### CMP, ESR, CBC ####[address] [address] USAPlatelets (Bld) [#/Vol]274 10*3/zFWvjzga157-133Bfk [facility] Physician GroupComment on above: Performed By: #### CMP, ESR, CBC ####[address] [address] USARBC (Bld) [#/Vol]4.23 10*6/uLNormal3.60-5.00The [facility] Physician GroupComment on above:Performed By: #### CMP, ESR, CBC ####[place] [address] USAWBC (Bld) [#/Vol]6.5 10*3/uLNormal3.8-11.6The [facility] Physician GroupComment on above:Performed By: #### CMP, ESR, CBC ####[place] [address] USAComprehensive Metabolic Panelon 06-12-2024 Albumin [Mass/Vol]4.2 g/dLNormal3.5-5.7The [facility] Physician GroupComment on above:Performed By: #### CMP, ESR, CBC ####[place] [address] USAAlbumin/Globulin [Mass ratio]1.4 {ratio}Normal The [facility] Physician GroupComment on above:Performed By: #### CMP, ESR, CBC ####[place] [address] USAALP [Catalytic activity/Vol]67 U/CCgahjd16-945Gxf [facility] Physician GroupComment on above:Performed By: #### CMP, ESR, CBC ####[place] [address] USAALT [Catalytic activity/Vol]13 U/LNormal7-52 The [facility] Physician GroupComment on above:Performed By: #### CMP, ESR, CBC ####[address] [address] USAAnion gap [Moles/Vol]10.1 mmol/LNormal6.0-15.0The [facility] Physician GroupComment on above:Performed By: #### CMP, ESR, CBC ####[address] [address] USAAST [Catalytic activity/Vol]22 U/EHqctkl31-24 The [facility] Physician GroupComment on above:Performed By: #### CMP, ESR, CBC ####[address] [address] [place] Bilirubin [Mass/Vol]0.7 mg/dLNormal0.3-1.0The [facility] Physician GroupComment on above:Performed By: #### CMP, ESR, CBC ####[place] [address] USACalcium [Mass/Vol]8.8 mg/dLNormal8.6-10.3The [facility] Physician GroupComment on above:Performed By: #### CMP, ESR, CBC ####[address] [address] [place] Chloride [Moles/Vol]105 mmol/TKpzqkj26-246Clv [facility] Physician GroupComment on above:Performed By: #### CMP, ESR, CBC ####[address] [address] USACO2 [Moles/Vol]27.4 mmol/RHaigrk34.0-31.0The [facility] Physician GroupComment on above:Performed By: #### CMP, ESR, CBC ####[address] [address] [place] Creatinine [Mass/Vol]1.27 mg/dLHigh0.60-1.20The [facility] Physician GroupComment on above:Performed By: #### CMP, ESR, CBC ####[address] [address] USACreatinine Clr Calc Qlwqszhi82.16 NormalThe [facility] Physician GroupComment on above:Result Comment: PERFORMED BY: [facility] [address] [place] [address] PATHOLOGIST INTERPRETER AND TRANSLATOR NAHOMY BRADLEY M.D.Performed By: #### CMP, ESR, CBC ####[place] [address] USAEstimated GFR51.520 mL/MinNormUF Health Le[facility]burg Hospital Physician GroupComment on above:Performed By: #### CMP, ESR, CBC ####[place] [address] USAGlobulin (S) [Mass/Vol]3.0 g/dLNoSwain Community Hospital Physician Group Comment on above:Performed By: #### CMP, ESR, CBC ####[place] [address] USAGlucose [Mass/Vol]93 mg/dLNormal 70-100The [facility] Physician GroupComment on above:Result Comment: Random Glucose Reference Range is dependent on time and content of last meal. Glucose of more than 200 mg/dL in a nonstressed, ambulatory subject supports the diagnosis of Diabetes Mellitus. ADA recommended reference rangePerformed By: #### CMP, ESR, CBC ####[place] [id number] USAPotassium [Moles/Vol] 3.5 mmol/LNormal3.5-5.1The [facility] Physician GroupComment on above:Performed By: #### CMP, ESR, CBC ####[place] [address] USAProtein [Mass/Vol]7.2 g/dLNormal6.4-8.9The [facility] Physician GroupComment on above:Performed By: #### CMP, ESR, CBC ####[place] [address] USASodium [Moles/Vol]139 mmol/OPdugly574-269Faj [facility] Physician GroupComment on above:Performed By: #### CMP, ESR, CBC ####[place] [address] USAUrea nitrogen [Mass/Vol]29 mg/dLHigh7-25The [facility] Physician GroupComment on above:Performed By: #### CMP, ESR, CBC ####[facility] [address] [place] [address] USACreatinine [Mass/volume] in Serum or PlasmaOrdered By: Yamil Leal on 07-23-7645Vqjihgomnb [Mass/Vol] Creatinine [Mass/volume] in Serum or PlasmaHigh0.60-1.20Bar[facility]ton Citizens HospitalECG 12 lead ECGon 30-75-2818WFJ 12 lead ECGPREMIER [facility] Main [place] [address] [place] [id number] Electrocardiograph Report Signed Patient: Tasneem Camarillo MR#: [id number] 477 : 1975 Acct:[id number] Age/Sex: 49 / F ADM Date: 06/12/24 Loc: ER Room: Type: [facility] ER Attending Dr: Ordering Provider: [...] MUS Signed By Yamil Leal MD 06/14/[address] [place] [address] Physician GroupEosinophils Auto (Bld) [#/Vol]Ordered By: Yamil Leal on 17-10-4314Tnbzkbzjarj (Bld) [#/Vol]Automated eosinophil count 0.0-0.45[facility] HospitalEosinophils/100 WBC Auto (Bld)Ordered By: Yamil Leal on 25-86-6079Brzcrzakzkx/100 WBC (Bld)Automated eosinophil %. [facility] HospitalErythrocyte Sedimentation Rateon 40-16-2803VAN (Bld) [Velocity]17 mm/hNormal0-29The [facility] Physician GroupComment on above: Result Comment: PERFORMED BY: [facility] [address] [place] [id number] PATHOLOGIST INTERPRETER AND TRANSLATOR NAHOMY BRADLEY M.D.Performed By: #### CMP, ESR, CBC ####[facility] [address] [place] [address] [facility] HOSPITALErythrocyte distribution width Auto (RBC) [Ratio]Ordered By: Yamil Leal on 06-12-2024 Erythrocyte distribution width (RBC) [Ratio]Erythrocyte distribution width [Ratio] by Automated count11.9-15.3FTrinity Health SystemErythrocyte sedimentation rate by Photometric methodOrdered By: Yamil Leal on 46-17-4379AUT Photometric method (Bld) [Velocity]Erythrocyte sedimentation rate by Photometric method0Bar[facility] Citizens HospitalGlobulin Calc (S) [Mass/Vol]Ordered By: Yamil Leal on 13-91-3197Xzehiime (S) [Mass/Vol]Serum globulin measurement by calculation (mass/volume)[facility] HospitalGlucose [Mass/volume] in Serum or PlasmaOrdered By: Yamil Leal on 67-45-2140Qdffdbp [Mass/Vol]Glucose [Mass/volume] in Serum or Akuaxj77-565PnhjyblrtBarberton Citizens HospitalComment on above:ADA recommended reference rangeRandom Glucose Reference Range is dependent on time and content of last meal. Glucose of more than 200 mg/dL in a nonstressed, ambulatory subject supports the diagnosisof Diabetes Mellitus. Hematocrit Auto (Bld) [Volume fraction]Ordered By: Yamil Leal on 06-12-2024 Hematocrit (Bld) [Volume fraction]Hematocrit [Volume Fraction] of Blood by Automated count34.0-46.4FTrinity Health SystemHemoglobin [Mass/volume] in BloodOrdered By: Yamil Leal on 35-93-1582Oqnoebrouu (Bld) [Mass/Vol]Hemoglobin [Mass/volume] in Blood11.8-15.4FTrinity Health SystemLeukocytes [#/volume] corrected for nucleated erythrocytes in Blood by Automated counOrdered By: Yamil Leal on 73-64-0346ETJ corrected for nucl RBC Auto (Bld) [#/Vol]Leukocytes [#/volume] corrected for nucleated erythrocytes in Blood by Automated coun3.8-11.6FTrinity Health SystemLymphocytes Auto (Bld) [#/Vol]Ordered By: Yamil Leal on 53-04-2127Hwwyzrahfja (Bld) [#/Vol] Lymphocytes [#/volume] in Blood by Automated count1.00-4.8Bar[facility] Citizens HospitalLymphocytes/100 WBC Auto (Bld)Ordered By: Yamil Leal on 06-12-2024 Lymphocytes/100 WBC (Bld)Lymphocytes/100 leukocytes in Blood by Automated count. [facility] HospitalH Auto (RBC) [Entitic mass]Ordered By: Yamil Leal on 44-08-0017LGX (RBC) [Entitic mass]MCH [Entitic mass] by Automated count 24.7-34.3FTrinity Health SystemMCHC Auto (RBC) [Mass/Vol]Ordered By: Yamil Leal on 21-07-8892XJPK (RBC) [Mass/Vol]MCHC [Mass/volume] by Automated count32.0-35.0Bar[facility] HospitalMCV Auto (RBC) [Entitic vol] Ordered By: Yamil Leal on 41-44-4489EPL (RBC) [Entitic vol]MCV [Entitic volume] by Automated yiqsz87-012NzazjuscdBarberton Citizens HospitalMonocyte distribution width [Entitic volume] in Blood by AutomatedOrdered By: Yamil Leal on 06-12-2024 Monocyte distribution width Auto (Bld) [Entitic vol]Monocyte distribution width [Entitic volume] in Blood by Automated0.00-20.00Bar[facility] HospitalMonocytes Auto (Bld) [#/Vol]Ordered By: Yamil Leal on 67-57-3171Rmcmnvhjc (Bld) [#/Vol]Automated blood monocyte count0.0-0.8Bar[facility] Citizens HospitalMonocytes/100 WBC Auto (Bld)Ordered By: Yamil Leal on 06-12-2024 Monocytes/100 WBC (Bld)Automated monocyte %.[facility] Neutrophils Auto (Bld) [#/Vol]Ordered By: Yamil Leal on 00-93-8210Xhniarbzzpe (Bld) [#/Vol]Neutrophils [#/volume] in Blood by Automated count1.8-7.7FTrinity Health SystemNeutrophils/100 WBC Auto (Bld)Ordered By: Yamil Leal on 09-10-7160Uqabeirzzft/100 WBC (Bld)Automated neutrophil %.[facility] HospitalNo Panel InformationOrdered By: Yamil Leal on 07-58-4709Jfpjzaxzq GFR (CKD-EPI)51.520 mL/MinBarberton Citizens HospitalPharmacy Creatinine Clearance (Chem47.16Bar[facility] Citizens HospitalNucleated erythrocytes [Presence] in Blood by Automated countOrdered By: Yamil Leal on 06-12-2024 Nucleated RBC Auto Ql (Bld)Nucleated erythrocytes [Presence] in Blood by Automated count0-0.5FTrinity Health SystemPlatelet mean volume Auto (Bld) [Entitic vol]Ordered By: Yamil Leal on 46-18-5188Vuniobkh mean volume (Bld) [Entitic vol]Platelet mean volume [Entitic volume] in Blood by Automated count6.3-10.7FTrinity Health SystemPlatelets Auto (Bld) [#/Vol] Ordered By: Yamil Leal on 01-31-1250Uzomqxcvx (Bld) [#/Vol]Platelets [#/volume] in Blood by Automated vnomt495-007VgujahoquBarberton Citizens HospitalPotassium [Moles/volume] in Serum or PlasmaOrdered By: Yamil Leal on 74-82-6984Xdobznsji [Moles/Vol]Potassium [Moles/volume] in Serum or Plasma3.5-5.1FTrinity Health SystemProtein [Mass/volume] in Serum or PlasmaOrdered By: Yamil Leal on 24-65-8023Itjghur [Mass/Vol]Protein [Mass/volume] in Serum or Plasma6.4-8.9 [facility] HospitalRBC Auto (Bld) [#/Vol]Ordered By: Yamil Leal on 94-75-8729YTX (Bld) [#/Vol]Erythrocytes [#/volume] in Blood by Automated count 3.60-5.00[facility]ville City Hospitalerum or plasma albumin/globulin mass ratioOrdered By: Yamil Leal on 64-39-3136Vpgnugh/Globulin [Mass ratio]Serum or plasma albumin/globulin mass ratioZanesville City Hospitalerum or plasma anion gap determinationOrdered By: Yamil Leal on 23-74-5265Iwkcm gap [Moles/Vol]Serum or plasma anion gap determination6.0-15.0Z[facility]ville City Hospitalodium [Moles/volume] in Serum or PlasmaOrdered By: Yamil Leal on 70-40-5925Omsphq [Moles/Vol]Sodium [Moles/volume] in Serum or Wlpizh604-989 [facility] HospitalUrea nitrogen [Mass/volume] in Serum or Plasma Ordered By: Yamil Leal on 73-34-9010Kriv nitrogen [Mass/Vol]Urea nitrogen [Mass/volume] in Serum or PlasmaHigh7-25Bar[facility] Citizens HospitalWBC Auto (Bld) [#/Vol]Ordered By: Yamil Leal on 06-95-7737DZR (Bld) [#/Vol] Leukocytes [#/volume] in Blood by Automated count3.8-11.6FTrinity Health System36on 71-94-273419Iyapmts called and Work Comp nurse instructed her to call and give update. She needs to let Dr. Dorado know the pinky is discolored purplish and the first joint is swollen. Started discoloration in April. Finger is cold to the touch. Pain 4/10 steady. 0 numbness but is constant tingling. Patient is requesting a call back to advise. Patient # [phone] of [facility] BrownwoodAppearance of UrineOrdered By: ROBINA SELLERS on 34-04-8182Nwgpbuzmya (U)Urine appearanceClear [facility] HospitalBasic Metabolic Panelon 93-39-0057Acdvk gap [Moles/Vol]9.3 mmol/LNormal6.0-15.0[facility] Physician GroupComment on above:Performed By: #### CK, BMP, PT, HS TROP, CBC, PTT #### [facility] [address] [place] [address] USACalcium [Mass/Vol]8.4 mg/dLLow8.6-10.3The [facility] Physician GroupComment on above:Performed By: #### CK, BMP, PT, HS TROP, CBC, PTT #### [facility] [address] [place] [address] USAChloride [Moles/Vol]105 mmol/RVtyvbz47-661Ait [facility] Physician [facility] River OaksComment on above:Performed By: #### CK, BMP, PT, HS TROP, CBC, PTT #### [place] [address] USACO2 [Moles/Vol]28.6 mmol/RHilhij77.0-31.0The [facility] Physician [facility] OaksComment on above:Performed By: #### CK, BMP, PT, HS TROP, CBC, PTT #### [place] [address] USACreatinine [Mass/Vol]1.53 mg/dLHigh0.60-1.20The [facility] Physician [facility] OaksComment on above:Performed By: #### CK, BMP, PT, HS TROP, CBC, PTT #### [place] [address] USACreatinine Clr Calc Ovselzby67.01NoSwain Community Hospital Physician [facility] River OaksComment on above:Result Comment: PERFORMED BY: [place] [address] PATHOLOGIST INTERPRETER AND TRANSLATOR NAHOMY BRADLEY M.D.Performed By: #### CK, BMP, PT, HS TROP, CBC, PTT #### [place] [address] USAEstimated GFR41.201 mL/MinNoAdena Health SystemComment on above:Performed By: #### CK, BMP, PT, HS TROP, CBC, PTT #### [place] [address] USAGlucose [Mass/Vol]89 mg/zQGvaqsv45-125Pvk [facility] Physician [facility] River OaksComment on above:Result Comment: Random Glucose Reference Range is dependent on time and content of last meal. Glucose of more than 200 mg/dL in a nonstressed, ambulatory subject supports the diagnosis of Diabetes Mellitus. ADA recommended reference rangePerformed By: #### CK, BMP, PT, HS TROP, CBC, PTT #### [place] [address] USAPotassium [Moles/Vol]3.9 mmol/LNormal3.5-5.1The [facility] Physician [facility] River OaksComment on above:Performed By: #### CK, BMP, PT, HS TROP, CBC, PTT #### [facility] [address] [place] [address] USASodium [Moles/Vol]139 mmol/RJujscf765-800Yhh [facility] Physician [facility] River OaksComment on above:Performed By: #### CK, BMP, PT, HS TROP, CBC, PTT #### [facility] [address] [place] [address] USAUrea nitrogen [Mass/Vol]28 mg/dLHigh7-25The [facility] Physician GroupComment on above:Performed By: #### CK, BMP, PT, HS TROP, CBC, PTT #### [facility] [address] [place] [address] USABasophils Auto (Bld) [#/Vol]Ordered By: Tad Barger on 62-12-9803Roylkxgou (Bld) [#/Vol]Automated basophil count0.0-0.2FTrinity Health SystemBasophils/100 WBC Auto (Bld)Ordered By: Tad Barger on 45-48-0388Zycyhcahf/100 WBC (Bld)Automated basophil %.[facility] HospitalBilirubin Test strip Ql (U)Ordered By: ROBINA SELLERS on 05-25-2024 Bilirubin Ql (U)Bilirubin.total [Presence] in Urine by Test stripNegative [facility] HospitalCOVID Cepheid NegativeOrdered By: Tad Barger on 45-88-9343YNPT-CoV-2 (COVID-19) Ab IA QlCOVID CepheidNegativeBarberton Citizens HospitalComment on above:This is a duplicate Cepheid Xpert Xpress CoV-2/Flu/RSV Plus RNA by RT-PCR result to be used for statistical tracking purpose only.COVID-19 / Flu A/B / RSV PCRon 28-41-1475KPPU-CoV-2 (COVID-19) RNA MARIA+probe Ql (Unsp spec)COVID-19 Cepheid [...] or Cepheid Disclaimer revoked sooner. PERFORMED BY: [facility] [address] [place] [address] PATHOLOGIST INTERPRETER AND TRANSLATOR NAHOMY BRADLEY M.D.[facility] Physician GroupComment on above: Performed By: #### CEPHEID NEG, COVID19 FLU RSV #### [facility] [address] [place] [address] USACT head/brain wo conon 92-49-3261DG head/brain wo con [facility] Main [place] [address] [place] [address] CT Scan Report Signed Patient: Tasneem Camarillo MR#: [id number] 477 : 1975 Acct:[id number] Age/Sex: 49 / F ADM Date: 05/25/24 [...] Curtis Jr., D.OJerman05/25/2024 2:41 PM Dictation Location: [place] [address] Transcribed By: [facility] 05/25/24 144 Dictated By: Roel Curtis Jr, DO 05/25/24 144 Signed By: 05/25/24 1441[facility] Physician GroupCalcium [Mass/volume] in Serum or PlasmaOrdered By: Tad Barger on 86-70-6404Yvdbqse [Mass/Vol]Calcium [Mass/volume] in Serum or PlasmaLow8.6-10.3FTrinity Health System Carbon dioxide, total [Moles/volume] in Serum or PlasmaOrdered By: Tad Barger on 36-07-7115EU5 [Moles/Vol]Carbon dioxide, total [Moles/volume] in Serum or Uaqfdt10.0-31.0Bar[facility] HospitalCepheid COVID PCR Negativeon 46-23-7081XXEZ-CoV-2 (COVID-19) RNA MARIA+probe Ql (Unsp spec)NegativeNormal NegativeThe [facility] Physician GroupComment on above:Result Comment: This is a duplicate Cepheid Xpert Xpress CoV-2/Flu/RSV Plus RNA by RT-PCR result to be used for statistical tracking purpose only. PERFORMED BY: [place] [address] PATHOLOGIST INTERPRETER AND TRANSLATOR NAHOMY BRADLEY M.D.Performed By: #### CEPHEID NEG, COVID19 FLU RSV ####[facility] [address] [place] [address] [place] Chloride [Moles/volume] in Serum or PlasmaOrdered By: aTd Barger on 05-25-2024 Chloride [Moles/Vol]Chloride [Moles/volume] in Serum or Aafafr79-917Mxyjabgxs[address] [place], [place] [address]Color Auto (U)Ordered By: PROVIDER TEMP on 05-25-2024 Color (U)Color of Urine by AutoYellowBarberton Citizens HospitalComplete Blood Count Auto Diffon 26-45-4146Dwgsnhflw (Bld) [#/Vol]0.0 10*3/uLNormal 0.0-0.2The [facility] Physician GroupComment on above:Result Comment: PERFORMED BY: [place] [address] PATHOLOGIST INTERPRETER AND TRANSLATOR NAHOMY BRADLEY M.D.Performed By: #### CK, BMP, PT, HS TROP, CBC, PTT #### [facility] [address] [place] [address] USABasophils/100 WBC (Bld)0.3 %Normal.[facility] Physician GroupComment on above:Performed By: #### CK, BMP, PT, HS TROP, CBC, PTT #### [place] [id number] USAEosinophils (Bld) [#/Vol]0.2 10*3/uLNormal0.0-0.45The [facility] Physician GroupComment on above:Performed By: #### CK, BMP, PT, HS TROP, CBC, PTT #### [place] [address] USAEosinophils/100 WBC (Bld)2.8 %Normal.[facility] Physician GroupComment on above:Performed By: #### CK, BMP, PT, HS TROP, CBC, PTT #### [place] [address] USAErythrocyte distribution width (RBC) [Ratio]14.0 %Normal 11.9-15.3The [facility] Physician GroupComment on above:Performed By: #### CK, BMP, PT, HS TROP, CBC, PTT #### [place] [address] USAHematocrit (Bld) [Volume fraction]33.5 %Low34.0-46.4The [facility] Physician GroupComment on above:Performed By: #### CK, BMP, PT, HS TROP, CBC, PTT #### [place] [address] USAHemoglobin (Bld) [Mass/Vol]11.1 g/dLLow11.8-15.4The [facility] Physician GroupComment on above:Performed By: #### CK, BMP, PT, HS TROP, CBC, PTT #### [place] [address] USALymphocytes (Bld) [#/Vol]2.7 10*3/uLNormal1.00-4.8The [facility] Physician GroupComment on above:Performed By: #### CK, BMP, PT, HS TROP, CBC, PTT #### [place] [address] USALymphocytes/100 WBC (Bld)45.5 %Normal.The [facility] Physician GroupComment on above:Performed By: #### CK, BMP, PT, HS TROP, CBC, PTT #### [place] [address] USAMCH (RBC) [Entitic mass]29.9 maCvseiz70.7-34.3The [facility] Physician GroupComment on above:Performed By: #### CK, BMP, PT, HS TROP, CBC, PTT #### [place] [address] USAMCV (RBC) [Entitic vol]90.3 pYPboqlp72-400Shh [facility] Physician GroupComment on above:Performed By: #### CK, BMP, PT, HS TROP, CBC, PTT #### [place] [address] USAMean Corpuscular HGB Conc33.1 g/pLYlagot76.0-35.0The [facility] Physician GroupComment on above:Performed By: #### CK, BMP, PT, HS TROP, CBC, PTT #### [place] [address] USAMonocytes (Bld) [#/Vol]0.4 10*3/uLNormal0.0-0.8The [facility] Physician GroupComment on above:Performed By: #### CK, BMP, PT, HS TROP, CBC, PTT #### [place] [address] USAMonocytes/100 WBC (Bld)18.88 %Normal0.00-20.00The [facility] Physician GroupComment on above:Performed By: #### CK, BMP, PT, HS TROP, CBC, PTT #### [place] [address] USAMonocytes/100 WBC (Bld)7.2 %Normal.The [facility] Physician GroupComment on above:Performed By: #### CK, BMP, PT, HS TROP, CBC, PTT #### [place] [address] USANeutrophils (Bld) [#/Vol]2.6 10*3/uLNormal1.8-7.7The [facility] Physician GroupComment on above:Performed By: #### CK, BMP, PT, HS TROP, CBC, PTT #### [place] [address] USANeutrophils/100 WBC (Bld)44.2 %Normal.The [facility] Physician GroupComment on above:Performed By: #### CK, BMP, PT, HS TROP, CBC, PTT #### [facility] [address] [place] [address] USANRBC%0.2 /100{WBC}Normal0-0.5The [facility] Comment on above:Performed By: #### CK, BMP, PT, HS TROP, CBC, PTT #### [facility] [address] [place] [address] USAPlatelet mean volume (Bld) [Entitic vol]8.5 fLNormal 6.3-10.7The [facility] Physician GroupComment on above:Performed By: #### CK, BMP, PT, HS TROP, CBC, PTT #### [place] [address] USAPlatelets (Bld) [#/Vol]247 10*3/bDNikuyj590-100Ujf [facility] Physician GroupComment on above:Performed By: #### CK, BMP, PT, HS TROP, CBC, PTT #### [place] [address] USARBC (Bld) [#/Vol]3.72 10*6/uLNormal3.60-5.00The [facility] Physician GroupComment on above:Performed By: #### CK, BMP, PT, HS TROP, CBC, PTT #### [place] [address] USAWBC (Bld) [#/Vol]5.8 10*3/uLNormal3.8-11.6The [facility] Physician GroupComment on above:Performed By: #### CK, BMP, PT, HS TROP, CBC, PTT #### [place] [address] USACreatine Kinaseon 74-66-2465PT [Catalytic activity/Vol]178 U/ALgtnjc16-117Xqi [facility] Physician GroupComment on above:Performed By: #### CK, BMP, PT, HS TROP, CBC, PTT #### [place] [address] USACreatine kinase [Enzymatic activity/volume] in Serum or PlasmaOrdered By: Tad Barger on 60-99-8366CX [Catalytic activity/Vol]Creatine kinase [Enzymatic activity/volume] in Serum or Wjkqnf90-834QtleqxxulBarberton Citizens HospitalCreatinine [Mass/volume] in Serum or PlasmaOrdered By: Tad Barger on 25-30-5877Wrtxbxgngq [Mass/Vol]Creatinine [Mass/volume] in Serum or Plasma High0.60-1.20Bar[facility] Citizens HospitalECG 12 lead ECGon 75-11-6672ZGZ 12 lead ECGPREMIER HEALTH MIAMI [place] [address] Electrocardiograph Report Signed Patient: Tasneem Camarillo MR#: [id number] 477 : 1975 Acct:[id number] Age/Sex: 49 / F ADM Date: 05/25/24 Loc: ER Room: Type: [facility] ER Attending Dr: Ordering Provider: Tad Barger [...] was found Confirmed by Tad Barger DO ([id number]) on 05/25/2024 7:17:06 PM Referred By: Electronically Signed By: Tad Barger DO Transcribed By: MUS Signed By Tad Barger DO [address] [place] [address] Physician GroupEosinophils Auto (Bld) [#/Vol]Ordered By: Tad Barger on 01-59-0904Rsuzjxporul (Bld) [#/Vol]Automated eosinophil count 0.0-0.45Bar[facility] Citizens HospitalEosinophils/100 WBC Auto (Bld)Ordered By: Tad Barger on 99-31-2079Zmzisluezsj/100 WBC (Bld)Automated eosinophil %. [facility] HospitalErythrocyte distribution width Auto (RBC) [Ratio]Ordered By: Tad Barger on 97-38-8248Ykepabcrzmi distribution width (RBC) [Ratio]Erythrocyte distribution width [Ratio] by Automated count11.9-15.3 [facility] HospitalGlucose [Mass/volume] in Serum or PlasmaOrdered By: Tad Barger on 36-32-9907Tckvzgj [Mass/Vol]Glucose [Mass/volume] in Serum or Wnvzrv60-964TquqlofztBarberton Citizens HospitalComment on above:ADA recommended reference rangeRandom Glucose Reference Range is dependent on time and content of last meal. Glucose of more than 200 mg/dL in a nonstressed, ambulatory subject supports the diagnosisof Diabetes Mellitus.Glucose [Mass/volume] in Urine by Test stripOrdered By: ROBINA SELLERS on 89-44-3283Yuvzqot Test strip (U) [Mass/Vol]Glucose [Mass/volume] in Urine by Test stripNormalBarberton Citizens HospitalHematocrit Auto (Bld) [Volume fraction]Ordered By: Tad Barger on 58-32-4716Yrnplndbdo (Bld) [Volume fraction]Hematocrit [Volume Fraction] of Blood by Automated ymmkjCkk43.0-46.4FTrinity Health SystemHemoglobin Test strip Ql (U)Ordered By: ROBINA SELLERS on 05-16-1201Wxqhkrbila Ql (U) Hemoglobin [Presence] in Urine by Test stripNegativeBarberton Citizens HospitalHemoglobin [Mass/volume] in BloodOrdered By: Tad Barger on 05-25-2024 Hemoglobin (Bld) [Mass/Vol]Hemoglobin [Mass/volume] in GxocnYfl38.8-15.4 [facility] HospitalINR in Platelet poor plasma by Coagulation assayOrdered By: Tad Barger on 17-75-6397RDO Coag (PPP) [Relative time]INR in Platelet poor plasma by Coagulation assayBarberton Citizens Hospital Comment on above:INR Therapeutic Range A) [...] (U)Ketones [Presence] in Urine by Test stripNegOhioHealth Marion General HospitalLeukocyte esterase [Presence] in Urine by Test strip Ordered By: PROVIDER TEMP on 94-83-3528Otpbabgai esterase Test strip Ql (U) Leukocyte esterase [Presence] in Urine by Test stripNegOhioHealth Marion General HospitalLeukocytes [#/volume] corrected for nucleated erythrocytes in Blood by Automated counOrdered By: Tad Barger on 38-04-5069ZJE corrected for nucl RBC Auto (Bld) [#/Vol]Leukocytes [#/volume] corrected for nucleated erythrocytes in Blood by Automated coun3.8-11.6FTrinity Health System Lymphocytes Auto (Bld) [#/Vol]Ordered By: Tad Barger on 35-73-8441Nxefuyysbol (Bld) [#/Vol]Lymphocytes [#/volume] in Blood by Automated count1.00-4.8[facility] HospitalLymphocytes/100 WBC Auto (Bld)Ordered By: Tad Barger on 59-74-0475Mrtcihmtiix/100 WBC (Bld)Lymphocytes/100 leukocytes in Blood by Automated count.[facility] Auto (RBC) [Entitic mass] Ordered By: Tad Barger on 29-72-0520FGR (RBC) [Entitic mass]MCH [Entitic mass] by Automated count24.7-34.3FUniversity Hospitals Portage Medical CenterHC Auto (RBC) [Mass/Vol]Ordered By: Tad Barger on 60-76-8154XMYP (RBC) [Mass/Vol]MCHC [Mass/volume] by Automated count32.0-35.0[facility] HospitalV Auto (RBC) [Entitic vol]Ordered By: Tad Barger on 37-45-2875TBQ (RBC) [Entitic vol]MCV [Entitic volume] by Automated bruup86-901HqrljwnivBarberton Citizens HospitalMonocyte distribution width [Entitic volume] in Blood by AutomatedOrdered By: Tad Barger on 61-11-3174Zyfsxqxr distribution width Auto (Bld) [Entitic vol]Monocyte distribution width [Entitic volume] in Blood by Automated0.00-20.00 [facility] HospitalMonocytes Auto (Bld) [#/Vol]Ordered By: Tad Barger on 93-10-0997Pamvvcraj (Bld) [#/Vol]Automated blood monocyte count0.0-0.8 [facility] HospitalMonocytes/100 WBC Auto (Bld)Ordered By: Tad Barger on 49-46-2941Cwtbdjtsf/100 WBC (Bld)Automated monocyte %.[facility] HospitalNeutrophils Auto (Bld) [#/Vol]Ordered By: Tad Barger on 25-82-4406Fkstmoexwak (Bld) [#/Vol]Neutrophils [#/volume] in Blood by Automated count1.8-7.7FTrinity Health SystemNeutrophils/100 WBC Auto (Bld) Ordered By: Tad Barger on 91-29-4913Wflnndfiphd/100 WBC (Bld)Automated neutrophil %.[facility] HospitalNitrite Test strip Ql (U)Ordered By: PROVIDER TEMP on 57-61-0465Tcyznbq Ql (U)Nitrite [Presence] in Urine by Test stripNegativeBarberton Citizens HospitalNo Panel InformationOrdered By: Tad Barger on 34-78-7507Zoqluxpjv GFR (CKD-EPI)41.201 mL/MinBarberton Citizens HospitalPharmacy Creatinine Clearance (Chem40.01Bar[facility] HospitalNucleated erythrocytes [Presence] in Blood by Automated countOrdered By: Tad Barger on 68-55-3482Cvqlxjlux RBC Auto Ql (Bld)Nucleated erythrocytes [Presence] in Blood by Automated count0-0.5FTrinity Health System Partial Thromboplastin Timeon 80-97-7363vFTJ Coag (Bld) [Time]27.5 sNormal 25.1-36.5The [facility] Physician GroupComment on above:Result Comment: A hematocrit value greater than 55% may lead to inaccurate results in coagulation testing. Patients having hematocrit values >55% require a special collection tube for coagulation studies. Please contact the laboratory at [phone] for redraw instructions. PERFORMED BY: [facility] [address] [place] [address] PATHOLOGIST INTERPRETER AND TRANSLATOR NAHOMY BRADLEY M.D.Performed By: #### CK, BMP, PT, HS TROP, CBC, PTT #### [facility] [address] [place] [address] USAPlatelet mean volume Auto (Bld) [Entitic vol]Ordered By: Tad Barger on 79-41-3239Ciufkyjj mean volume (Bld) [Entitic vol]Platelet mean volume [Entitic volume] in Blood by Automated count6.3-10.7FTrinity Health SystemPlatelets Auto (Bld) [#/Vol]Ordered By: Tad Barger on 05-25-2024 Platelets (Bld) [#/Vol]Platelets [#/volume] in Blood by Automated bvpsa489-973 [facility] HospitalPotassium [Moles/volume] in Serum or Plasma Ordered By: Tad Barger on 46-68-5947Izfbaskua [Moles/Vol]Potassium [Moles/volume] in Serum or Plasma3.5-5.1FTrinity Health SystemProtein Test strip (U) [Mass/Vol]Ordered By: ROBINA SELLERS on 43-51-5539Nbsgfrk (U) [Mass/Vol]Protein [Mass/volume] in Urine by Test stripNegativeBarberton Citizens HospitalProthrombin Time INRon 32-85-8484SND Coag (PPP) [Relative time] 0.8 {INR}NormalThe [facility] Physician GroupComment on above:Result Comment: INR Therapeutic [...] BMP, PT, HS TROP, CBC, PTT #### [facility] [address] [place] [id number] USAPT Coag (PPP) [Time]9.7 sNormal9.0-12.9The [facility] Physician GroupComment on above:Result Comment: A hematocrit value greater than 55% may lead to inaccurate results in coagulation testing. Patients having hematocrit values >55% require a special collection tube for coagulation studies. Please contact the laboratory at [phone] for redraw instructions.Performed By: #### CK, BMP, PT, HS TROP, CBC, PTT #### [facility] [address] [place] [address] USAProthrombin time (PT)Ordered By: Tad Barger on 05-25-2024 PT Coag (PPP) [Time]Prothrombin time (PT)9.0-12.9[facility] HospitalComment on above:A hematocrit value greater than 55% may lead to inaccurate results in coagulation testing. Patientshaving hematocrit values >55% require a special collection tube for coagulation studies. Please contact the laboratory at [phone] for redraw instructions.RBC Auto (Bld) [#/Vol]Ordered By: Tad Barger on 52-53-0827PUZ (Bld) [#/Vol]Erythrocytes [#/volume] in Blood by Automated count3.60-5.00[facility] HospitalRespiratory specimen influenza A virus, influenza B virus, respiratory syncytical virOrdered By: Tad Barger on 73-41-3533ZWIN-CoV-2 (COVID-19) RNA MARIA+probe Ql (Unsp spec) Respiratory specimen influenza A virus, influenza B virus, respiratory syncytical virZanesville City Hospitalerum or plasma anion gap determinationOrdered By: Tad Barger on 74-07-9351Eyost gap [Moles/Vol]Serum or plasma anion gap determination6.0-15.0Zanesville City Hospitalodium [Moles/volume] in Serum or PlasmaOrdered By: Tad Barger on 99-24-3044Dedskl [Moles/Vol]Sodium [Moles/volume] in Serum or Itllqi229-513AkyxfdbhlZanesville City Hospitalpecific gravity Test strip (U) [Rel density]Ordered By: ROBINA TEMP on 64-17-5366Cjhuyyzs gravity (U) [Rel density]Specific gravity of Urine by Test strip1.001-1.030[facility] HospitalTroponin I High Sensitivityon 15-11-5777Iyyxbxfi I High Rxdsvyeypbl4Crkrnx1-19Uex [facility] Physician GroupComment on above:Result Comment: The Troponin units of report have been changed to meet the Chest Pain Accreditation requirement, element EC5.M1l2. Troponin units are changed from pg/ml to ng/L. Also, the decimal is removed and results are in whole numbers. PERFORMED BY: [facility] [address] [place] [address] PATHOLOGIST INTERPRETER AND TRANSLATOR NAHOMY BRADLEY M.D.Performed By: #### CK, BMP, PT, HS TROP, CBC, PTT #### [facility] [address] [place] [address] USATroponin I.cardiac [Mass/volume] in Serum or Plasma by Detection limit <= 0.01 ng/Ordered By: Tad Barger on 02-88-7367Daykqnhq I.cardiac DL <= 0.01 ng/mL [Mass/Vol]Troponin I.cardiac [Mass/volume] in Serum or Plasma by Detection limit <= 0.01 ng/0-15[facility] Comment on above:The Troponin units of report have been changed to meet the Chest Pain Accreditation requirement, element EC5.M1l2. Troponin units are changed from pg/ml to ng/L. Also, the decimal is removed and results are in whole numbers.Urea nitrogen [Mass/volume] in Serum or PlasmaOrdered By: Tad Barger on 01-13-3748Dfkm nitrogen [Mass/Vol]Urea nitrogen [Mass/volume] in Serum or PlasmaPocahontas Memorial Hospital7-25Bar[facility] Citizens HospitalUrinalysison 05-25-2024 Appearance (U)ClearNormalClearThe [facility] Physician GroupComment on above: Order Comment: Name Collection Type:: Clean-Voided MidstreamPerformed By: #### UA ####[facility] [place] [address] [place] Bilirubin,UrineNegativeNormalNegativeThe [facility] Physician GroupComment on above:Order Comment: Name Collection Type:: Clean-Voided MidstreamPerformed By: #### UA ####[facility] [place] [address] USAColor (U)Light-YellowNormalYellowThe [facility] Physician GroupComment on above:Order Comment: Name Collection Type:: Clean-Voided MidstreamPerformed By: #### UA ####[address] [address] USAGlucose Ql (U)NormalNormalNormalThe [facility] Physician GroupComment on above:Order Comment: Name Collection Type:: Clean-Voided MidstreamPerformed By: #### UA ####[address] [address] USAKetones Ql (U)NegativeNormalNegativeThe [facility] Physician GroupComment on above:Order Comment: Name Collection Type:: Clean-Voided MidstreamPerformed By: #### UA ####[address] [address] USALeukocyte esterase Test strip Ql (U)NegativeNormalNegativeThe [facility] Physician GroupComment on above:Order Comment: Name Collection Type:: Clean- Voided MidstreamPerformed By: #### UA ####[address] [address] USANitrite,UrineNegativeNormalNegativeThe [facility] Physician GroupComment on above:Order Comment: Name Collection Type:: Clean-Voided MidstreamPerformed By: #### UA ####[address] [address] USAOccult Blood,UrineNegativeNormal NegativeThe [facility] Physician GroupComment on above:Order Comment: Name Collection Type:: Clean-Voided MidstreamResult Comment: PERFORMED BY: [facility] [address] [place] [address] PATHOLOGIST INTERPRETER AND TRANSLATOR NAHOMY BRADLEY M.D.Performed By: #### UA ####[address] [address] USApH (U)5.5 [pH]Normal5.0-9.0The [facility] Physician GroupComment on above:Order Comment: Name Collection Type:: Clean-Voided MidstreamPerformed By: #### UA ####[place] [address] [place] [address] USAProtein,UrineNegativeNormalNegativeThe [facility] Physician GroupComment on above:Order Comment: Name Collection Type:: Clean-Voided MidstreamPerformed By: #### UA ####[address] [address] USASpecificy [place],Urine1.016Normal 1.001-1.030The [facility] Physician GroupComment on above:Order Comment: Name Collection Type:: Clean-Voided MidstreamPerformed By: #### UA ####[address] [address] USAUrobilinogen,Urine NormalNormalNormalThe [facility] Physician GroupComment on above:Order Comment: Name Collection Type:: Clean-Voided MidstreamPerformed By: #### UA ####[address] [address] USAUrobilinogen Test strip (U) [Mass/Vol]Ordered By: ROBINA SELLERS on 41-86-4238Hzlfcsuiyzhf (U) [Mass/Vol]Urobilinogen [Mass/volume] in Urine by Test stripNoGalion Community HospitalWBC Auto (Bld) [#/Vol]Ordered By: Tad Barger on 17-37-2005RVF (Bld) [#/Vol]Leukocytes [#/volume] in Blood by Automated count 3.8-11.6FTrinity Health SystemX-ray reportOrdered By: Roel Curtis on 01-99-2971Wrwjh reportPREMIER HEALTH MIAMI VAL[facility] [address] [place] [address] [place] [address] XRay Report Signed Patient: Tasneem Camarillo MR#: [id number] : 1975 Acct:[id number] Age/Sex: 49 / F ADM Date: 5 [...] DO 05/25/24 143 Signed By: 05/25/24 1439 [facility] HospitalXR chest 1V portableon 22-82-7530VP chest 1V portablePREMIER HEALTH [facility]I [place] [address] XRay Report Signed Patient: Tasneem Camarillo MR#: [id number] 477 : 1975 Acct:[id number] Age/Sex: 49 / F ADM Date: 05/25/24 [...] Jr, DO 05/25/24 143 Signed By: 05/25/24 1439[facility] Physician GroupaPTT in Platelet poor plasma by Coagulation assayOrdered By: Tad Barger on 95-02-4784kPNZ Coag (PPP) [Time] Activated partial thromboplastin time (aPTT) in platelet poor plasma by coagulation a25.1-36.5FTrinity Health SystemComment on above:A hematocrit value greater than 55% may lead to inaccurate results in coagulation testing. Patientshaving hematocrit values >55% require a special collection tube for coagulation studies. Please contact the laboratory at [phone] for redraw instructions.pH Test strip (U)Ordered By: PROVIDER TEMP on 53-33-6318uS (U)pH of Urine by Test strip5.0-9.0[facility] HospitalOffice Visit on 96-20-0000Qsyvea-up [id number] Tasneem Camarillo Rafi 1975 F Date Provider Department [place] 04/20/2024 VADIM KISER MP MPORTHO No family history on file Level of Service:16426 RI OFFICE/OUTPATIENT ESTABLISHED SF MDM 10 MIN Reason for Visit and Comments: Pain [136] Post-op [483]NormalMartin Memorial Hospital36on 44-03-349795Mnndfxkbd to call patient and lvm to call back.[facility] 36on 89-63-771662Whrdbsekx to call patient, phone kept ringing, no VMNormal [facility]36on 84-25-735766Jj calling non incisional pain and swelling and wanted to speak with Dr Nation nurse.[facility] HospitalTelephoneon 09-89-1369Qmostuggq [id number] Tasneem Camarillo Rafi 1975 F Date Provider Department [place] 02/04/2024 MAYA FERMIN MP ORTHO MPORTHO No family history on fileNormalUniParkview Health Montpelier HospitalOffice Visiton 91-94-6282Gajqhy-up [id number] Tasneem Camarillo Rafi 1975 F Date Provider Department [place] 01/14/2024 VADIM KISER MP ORTHO MPORTHO No family history on file Level of Service:01039 RI POSTOP FOLLOW UP VISIT RELATED TO ORIGINAL PX Reason for Visit and Comments: Post-op [483] Pain [136]NormalMartin Memorial HospitalHPon 19-40-5328IQIdvzklz Of Present Illness Tasneem Camarillo is a [...] tablet by mouth in the morning. 01/06/2024 prhczvtsxt-gdbzgleryjbtf-vcmr 50-325-40 mg tablet Take 1 tablet by [...] hardware removal, ring finger trigger digit release.Normal Martin Memorial HospitalNURSNOTEon 69-55-9895NJDUGQFOCq skie notified no ATB ordered.[facility] HospitalOPNOTEon 01-07-2024 OPNOTEOperative Note Patient: Tasneem Camarillo Date of Surgery: 01/07/2024 : 1975 Pre-operative Diagnosis: 1. Retained hardware PIP joint right small finger, 2. Trigger digit right ring finger Post-operative Diagnosis: same Operation: 1. Removal of retained hardware right small finger, 2. Trigger digit release right ring finger ([id number]) Surgeon: Vadim Dorado MD Tumbler Drier Operator: Jerome Jesus MD Staff: Chart Picker: Roel Paez RN; Bryanna Esparza RN Scrub Person: Josephine Mckinley CST [place] Chart Picker: Roel Paez RN Anesthesia Type: Regional Indications: [...] saline solution. The extensor is closed with veahbq-xd-sgqix sutures of 4-0 Vicryl. The skin is [...] Disposition: PACU Condition: Stable Vadim Dorado MDNormalUniversity Cleveland Clinic Avon HospitalPOCT GLUCOSE METER UNSOLICITED RESULTSon 71-32-3047Pswmqob [Mass/Vol]89 mg/eBFctskd62-916SappzgzmoxSt. Mary's Medical Center, Ironton CampusComment on above:Order Comment: Waived Testing in the ED is performed under the ED CLIA certificate #[id number].Result Comment: [email or web address] Performed By: #### [id number] ####[facility] ([facility])[address] [place], [place] [address]Rgrrwgxtsq macro (dipstick) panel (U)on 01-28-8816Ouwzgnuff, UANegativeNegative - 4(70) +++ mg/dLNOMS HealthcareBlood, UANegativeNegative [...] - 12 mg/dLNOMS HealthcareNOMS HealthcareANES POSTPROC EVALon 64-19-9862VMTG POSTPROC EVALHNO ID: [id number] Author: AURE JARRELL MD Service: ? Author [...] July 02, 2023 TIME: 9:51 AM CSN: [id number]'s Hospital for Rehabilitation PRE-OPon 09-45-5597PIOE PRE-OPHNO ID: [id number] Author: AURE JARRELL MD Service: ? Author [...] and consent discussed: yes. Patient / Responsible Democrat agrees to proceed: yes Patient / Surrogate [...] July 02, 2023 TIME: 8:48 AM CSN: [id number] Valley Health System 07-02-2023 CNOVOffice Visit (THORMN) TASNEEM CAMARILLO ([id number]) 1975 F Date Time Provider Department 07/02/23 11:30 AM AIDEE VILLAVICENCIO During your visit today, we recorded the following information about you: Temperature Pulse Blood pressure Weight 97.8 degrees 53/minute 102/61 63.9 kg Height 1.575 m Aidee Villavicencio APRN.MANAGER RETENTION 07/02/2023 12:46 PM Signed [facility] - OUTPATIENT THORACIC SURGERY CLINIC NOTE PT NAME: Tasneem Camarillo [facility] NO: [id number] THORACIC SURGEON: Nicanor Ferris M.D. DATE OF [...] Local GI for symptom management Aidee Villavicencio APRN.MANAGER RETENTION Referring Provider: NICANOR FERRIS [[id number]] Allergies As of Date: 07/02/2023 Noted Allergy [...] contrast (will be provi (more content not included)...[facility]Way[facility] Study observation Narrativeon 14-28-5638Mgpdvceum Clinic Radiology Study observation (narrative)[facility] HospitalNURSING PROGon 07-02-2023 NURSING PRONO ID: [id number] Author: ALISHA CANELA LPN Service: Nursing Author [...] (RECOMMENDATION): None Electronically Signed By: Alisha Canela LPAdena Fayette Medical Center ID: [id number] Author: TATY SHERIDAN RN Service: Nursing Author [...] By: Taty Sheridan RN BSN In Department: GASTROENTEROLOGYUniversity Hospitals St. [facility] ID: [id number] Author: TATY SHERIDAN RN Service: Nursing Author Type: Registered Nurse Type: Nursing Progress Note Filed: 07/02/2023 08:26 Note Text: 0812: Dr. Madeline Jarrell paged: Patient Tasneem Camarilol in pre bed 16: Patient states she is US only IV access. Are you able to help me obtain IV access? Thanks! Casandra 0825: Dr. Jarrell paged: Patient Tasneem Camarillo in pre bed 16: Patient ready for US IV access, thanks! Casandra Sheridan RN [facility] TroyRGICAL PATHOLOGYon 17-57-2886UPPS REPORTNoMetroHealth [facility] on above:Order Comment: Specimen Type: TISSUE SPECIMENOrdering Facility: [facility] Address: [address] [place], [place] [address]A [place], [place] [address]Wdqtgo Comment: Surgical Pathology Report Case: [id number] Authorizing Provider: Nicanor Ferris MD Collected: 07/02/2023 08:58 AM Ordering Location: Gastroenterology Received: 07/02/2023 11:39 AM Pathologist: Ziyad Lama MD Specimens: A) - Stomach, Antrum, Biopsy, r/o H. Pylori B) - Esophagus, Biopsy, 32cm - r/o EOE C) - Esophagus, Biopsy, 25cm - r/o EOEPerformed By: #### S ####[facility] LABORATORYCLIA [id number] [address] LABCLIA [id number] [address] AMERICADIAGNOSIS COMMENTA. No microorganisms morphologically compatible with Helicobacter Pylori like organisms are identified by routine H AND E-stained sections.[facility] Medical CenterComkresge eye institute on above:Order Comment: Specimen Type: TISSUE SPECIMENOrdering Facility: [facility] Address: [address] [place], [place] [address]Performed By: #### S ####[facility] LABORATORYCLIA [id number] [address] LABCLIA [id number] [address]FINHI DIAGNOSISNormWVUMedicine Harrison Community HospitalComkresge eye institute on above:Order Comment: Specimen Type: TISSUE SPECIMENOrdering Facility: [facility] [place] Address: [address] [place], [place] [address]Result Comment: A. Stomach, antrum, biopsy: - Reactive antra/pyloric type mucosa; see comment. B. Esophagus, biopsy at 32 cm: - Squamous and gastric mucosa with no pathologic diagnostic abnormality; negative for eosinophil esophagitis. C. Esophagus, biopsy at 25 cm: - Squamous and gastric mucosa with no pathologic diagnostic abnormality; negative for eosinophil esophagitis. Performed By: #### S ####[facility] LABORATORYCLIA [id number] [address] LABCLIA [id number] [address]ETFINHI PERFORMING [facility] on above:Order Comment: Specimen Type: TISSUE SPECIMENOrdering Facility: [facility] Address: [address] [place], [place] [address]Result Comment: Diagnostic interpretation performed at [facility], [address] [address] CLIA# [id number] Scrap Wheeler: Ziyad Lama M.D.Performed By: #### S ####[facility] LABORATORYCLIA [id number] [address] LABCLIA [id number] [address]GROSS DESCRIPTIONNoMetroHealth [facility] on above:Order Comment: Specimen Type: TISSUE SPECIMENOrdering Facility: [facility] Address: [address] [place], [place] [address]Result Comment: A. Stomach, Antrum, Biopsy Received in [...] in one cassette. Gross examination performed at [facility], [address] [place] [address] July 02, 2023 12:33 PMPerformed By: #### S ####[facility] LABORATORYCLIA [id number] [address] LABCLIA [id number] [address]ETCNOVon 85-64-3098VISXTvlmya Visit (THORMO) TASNEEM CAMARILLO ([id number]) 1975 F Date Time Provider Department 06/25/23 2:15 PM NICANOR FERRIS During your visit today, we recorded the following information about you: Temperature Pulse Respiration Blood pressure 97.4 degrees 58/minute 14/minute 94/46 Weight Height 63.4 kg 1.575 m Rachana Pham MD 07/24/2023 2:31 PM Signed [facility] THORAC[facility] SURGERY OUTPATIENT CONSULT NOTE Tasneem Camarillo [id number] Requesting Provider: Self Thoracic Physician: Nicanor Ferris [...] DATE OF EXAM: Jun 25 2023 12:26PM [facility] - CT CHEST WO IVCON / [...] pericardial effusion or thick (more content not included)...NormalAd[facility] CHEST WO IVCONon [id number] CHEST WO IVCON* * *Final Report* * * DATE OF EXAM: Jun 25 2023 12:26PM [facility] 0541 - CT CHEST WO IVCON / [...] Recommendation: Consult to [facility] - [id number] Time Frame: at the discretion of the clinical team. Comments: Follow-up for this incidentally detected lung nodule with PET/CT or Biopsy within 4 weeks, or Chest CT exam in 3 months is recommended. --END OF FINDING-- Associate Software Development Engineer: TARYN Transcribe Date/Time: Jun 25 2023 12:38P Dictated by : TALYA MCCORMACK MD This examination was interpreted and the report reviewed and electronically signed by: TALYA MCCORMACK MD on Jun 25 2023 12:44PM EST [id number] ACTIONABLEInvalid Interpretation CodeMorrow County HospitalvelandNV Chest WO contraston 09-03-8159Prepysyoe ResultACTIONABLEAbnormalCleveland ClinicCNPNon 10-68-6061WJUGUuhsmzpcn (THORMN) TASNEEM CAMARILLO ([id number]) 1975 F Date Time Provider Department 05/20/23 NICANOR FERRIS During your visit today, we recorded the following information about you: Liz Cho 05/20/2023 12:08 PM Signed Received a call back from [facility] in [place] on records requested (operative reports from 2013= Yefri fundoplication). Edith from the [place] [facility] records dept was unable to fax the records because the pt last name didn't match. I called our patient and left a VM requesting a call back with that information to proceed with getting the records needed for the surgeon. [place] Director Of Integrated Marketing Liz Cho 05/22/2023 8:55 AM Signed received outside [facility]routing to NPM for review. Liz [...] (None) Encounter Status:Closed by DANIKA MARX on 05/22/23NoLake County Memorial Hospital - WestFeliciano [id number] (THORMN) TASNEEM CAMARILLO ([id number]) 1975 F Date Time Provider Department 05/19/23 [...] office for scheduling. Please call pt at [phone]. Patient was informed consultation could be at [place] or [facility] [place]: No Patient Registration: Registration complete/updated: no Insurance card(s) scanned in [facility] with in the past year: No Pt's [employer] is inactive. Ok to communicate to pt via [employer] not asked Medical Records: Records in [facility] (internal [facility] records): No Imaging in [facility] (internal [facility] records): No Care [...] Simmons. Imaging will be received via In [facility] already Received: yes Imaging uploaded: [...] Outside hospital records scanned Procedures: Yefri Fundoplication [place] op report 2013 [facility] ) - ask Ad Clerk to obtain Imaging CT (chest/abd requested) mri [...] Elana'alli tele Reminder sent to patient via [employer] Allergies As of Date: 05/19/2023 (Not on File) Date Reviewed: Never Reviewed Reason for Visit: External Referrals/resources [909] Appointment Confirmation [3505] Primary Visit Diagnosis:Epigastric abdominal pain [R10.13] Order(s):CT CHEST WO IVCON [[id number]] Order #: [id number] FUTURE CT ABDOMEN WO IVCON [[id number]] Order #: [id number] FUTURE enteric contrast (will be provided with radiology test)For CT Chest Abdomen WO order Administer, As Directed One Time Only, via Oral, Rectal, both Oral and Rectal, Enteric Tube, Stoma or Indwelling Catheter, Enteric Contrast as designated per enteric contrast guidelinesDisp: 1 EachRfl: 0 EGD DIAGNOSTIC [GI9] Order #: [id number] FUTURE Prescriptions as of 05/20/2023 - enteric [...] enteric contrast guidelines Cosign required by NICANOR FERRIS[[id number]] Encounter Status:Closed by ELANA COFFMAN on 05/19/23NoLake County Memorial Hospital - WestAlanine aminotransferase [Enzymatic activity/volume] in Serum or Plasma Ordered By: Zaheer Sanon on 45-95-5046SKG [Catalytic activity/Vol]19 U/L7-52 [facility] HospitalAlbumin [Mass/volume] in Serum or Plasma by Bromocresol green (BCG) dye binding methoOrdered By: Zaheer Sanon on 03-30-2023 Albumin BCG dye [Mass/Vol]4.6 g/dL3.5-5.7FTrinity Health System Alkaline phosphatase [Enzymatic activity/volume] in Serum or PlasmaOrdered By: Zaheer Sanon on 50-69-6612ETN [Catalytic activity/Vol]70 U/E33-202LsvdijgxjBarberton Citizens HospitalAspartate aminotransferase [Enzymatic activity/volume] in Serum or PlasmaOrdered By: Zaheer Sanon on 21-72-3541LMJ [Catalytic activity/Vol]29 U/W08-72JjpzsbamzBarberton Citizens HospitalBasophils Auto (Bld) [#/Vol]Ordered By: Zaheer Sanon on 65-09-4811Tosvgsxol (Bld) [#/Vol]0.1 10*3/uL 0.0-0.2FTrinity Health SystemBasophils/100 WBC Auto (Bld)Ordered By: Zaheer Sanon on 53-00-6085Ebfdpisjf/100 WBC (Bld)1.3 %.[facility] HospitalBilirubin Test strip Ql (U)Ordered By: Zaheer Sanon on 03-30-2023 Bilirubin Ql (U)NegativeNegativeBarberton Citizens HospitalBilirubin.total [Mass/volume] in Serum or PlasmaOrdered By: Zaheer Sanon on 03-30-2023 Bilirubin [Mass/Vol]0.9 mg/dL0.3-1.0[facility] HospitalCalcium [Mass/volume] in Serum or PlasmaOrdered By: Zaheer Sanon on 15-37-0372Wsqxsug [Mass/Vol]9.1 mg/dL8.6-10.3FTrinity Health SystemCarbon dioxide, total [Moles/volume] in Serum or PlasmaOrdered By: Zaheer Sanon on 03-30-2023 CO2 [Moles/Vol]29.8 mmol/L21.0-31.0[facility] HospitalChloride [Moles/volume] in Serum or PlasmaOrdered By: Zaheer Sanon on 60-72-3444Qxbqvbnz [Moles/Vol]101 mmol/Z52-862HfnoalmksBarberton Citizens HospitalColor Auto (U) Ordered By: Zaheer Sanon on 68-28-6767Tbuwv (U)YellowYellowBarberton Citizens HospitalCreatinine [Mass/volume] in Serum or PlasmaOrdered By: Zaheer Sanon on 91-66-8785Bdknrfbdcp [Mass/Vol]1.76 mg/dL0.60-1.20[facility] HospitalEosinophils Auto (Bld) [#/Vol]Ordered By: Zaheer Sanon on 28-84-5882Vzlemrokssb (Bld) [#/Vol]0.2 10*3/uL0.0-0.45[facility] HospitalEosinophils/100 WBC Auto (Bld)Ordered By: Zaheer Sanon on 03-30-2023 Eosinophils/100 WBC (Bld)3.7 %.[facility] HospitalErythrocyte distribution width Auto (RBC) [Ratio]Ordered By: Zaheer Sanon on 03-30-2023 Erythrocyte distribution width (RBC) [Ratio]14.6 %11.9-15.3FTrinity Health SystemGlobulin Calc (S) [Mass/Vol]Ordered By: Zaheer Sanon on 00-01-5715Tosuhjlt (S) [Mass/Vol]3.0 g/dLBarberton Citizens Hospital Glucose [Mass/volume] in Serum or PlasmaOrdered By: Zaheer Sanon on 03-30-2023 Glucose [Mass/Vol]67 mg/wJ65-340BxxzghyveBarberton Citizens HospitalComment on above:ADA recommended reference rangeRandom Glucose Reference Range is dependent on time and content of last meal. Glucose of more than 200 mg/dL in a nonstressed, ambulatory subject supports the diagnosisof Diabetes Mellitus. Hematocrit Auto (Bld) [Volume fraction]Ordered By: Zaheer Sanon on 03-30-2023 Hematocrit (Bld) [Volume fraction]38.6 %34.0-46.4FTrinity Health SystemHemoglobin [Mass/volume] in BloodOrdered By: Zaheer Sanon on 03-30-2023 Hemoglobin (Bld) [Mass/Vol]12.9 g/dL11.8-15.4FTrinity Health System Ketones Auto test strip (U) [Mass/Vol]Ordered By: Zaheer Sanon on 03-30-2023 Ketones (U) [Mass/Vol]NegativeNegativeBarberton Citizens Hospital Leukocytes [#/volume] corrected for nucleated erythrocytes in Blood by Automated counOrdered By: Zaheer Sanon on 40-96-2817HRV corrected for nucl RBC Auto (Bld) [#/Vol]6.4 10*3/uL3.8-11.6FTrinity Health SystemLipase [Enzymatic activity/volume] in Serum or PlasmaOrdered By: Zaheer Sanon on 95-74-3274Peqtec [Catalytic activity/Vol]88.0 U/L11.0-82.0[facility] HospitalLymphocytes Auto (Bld) [#/Vol]Ordered By: Zaheer Sanon on 06-27-7289Fbzlutanmcg (Bld) [#/Vol]3.1 10*3/uL1.00-4.8[facility] HospitalLymphocytes/100 WBC Auto (Bld)Ordered By: Zaheer Sanon on 03-30-2023 Lymphocytes/100 WBC (Bld)47.8 %.[facility] HospitalH Auto (RBC) [Entitic mass]Ordered By: Zaheer Sanon on 81-23-6882XEG (RBC) [Entitic mass] 30.3 pg24.7-34.3FTrinity Health SystemMCHC Auto (RBC) [Mass/Vol] Ordered By: Zaheer Sanon on 65-69-1552UIRX (RBC) [Mass/Vol]33.3 g/dL32.0-35.0 [facility] HospitalMCV Auto (RBC) [Entitic vol]Ordered By: Zaheer Sanon on 92-21-4706YTE (RBC) [Entitic vol]91.0 qE63-389ZonthianeBarberton Citizens HospitalMonocyte distribution width [Entitic volume] in Blood by Automated Ordered By: Zaheer Sanon on 41-80-1258Zorgucqd distribution width Auto (Bld) [Entitic vol]16.77 %0.00-20.00[facility] HospitalMonocytes Auto (Bld) [#/Vol]Ordered By: Zaheer Sanon on 05-31-7995Ixmokjqgk (Bld) [#/Vol]0.7 10*3/uL0.0-0.8[facility] HospitalMonocytes/100 WBC Auto (Bld) Ordered By: Zaheer Sanon on 58-54-3825Jfxeaxwtj/100 WBC (Bld)10.1 %.[facility] HospitalNeutrophils Auto (Bld) [#/Vol]Ordered By: Zaheer Sanon on 27-62-8069Sczdgpbgmwl (Bld) [#/Vol]2.4 10*3/uL1.8-7.7FTrinity Health SystemNeutrophils/100 WBC Auto (Bld)Ordered By: Zaheer Sanon on 80-13-2580Pfzvlhxerij/100 WBC (Bld)37.1 %.[facility] Nitrite Test strip Ql (U)Ordered By: Zaheer Sanon on 53-93-5552Lwukqjx Ql (U) NegativeNegativeBarberton Citizens HospitalNo Panel InformationOrdered By: Zaheer Sanon on 99-76-9733Qdunyufnq GFR (CKD-EPI)35.044 mL/MinBarberton Citizens HospitalPharmacy Creatinine Clearance (Chem34.34[facility] HospitalNucleated erythrocytes [Presence] in Blood by Automated countOrdered By: Zaheer Sanon on 83-04-4901Pykvfchbu RBC Auto Ql (Bld)0.1 /100{WBC}0-0.5FTrinity Health SystemPlatelet mean volume Auto (Bld) [Entitic vol]Ordered By: Zaheer Sanon on 18-36-7433Acpbpkmx mean volume (Bld) [Entitic vol]8.8 fL6.3-10.7FTrinity Health SystemPlatelets Auto (Bld) [#/Vol]Ordered By: Zaheer Sanon on 71-08-3002Wwsewjfjs (Bld) [#/Vol]338 10*3/uL 150-450Bar[facility] HospitalPotassium [Moles/volume] in Serum or PlasmaOrdered By: Zaheer Sanon on 37-48-4211Hvgrcdzzc [Moles/Vol]3.2 mmol/L 3.5-5.1FTrinity Health SystemProtein Auto test strip (U) [Mass/Vol] Ordered By: Zaheer Sanon on 52-62-7015Fudjiyb (U) [Mass/Vol]NegativeNegative [facility] HospitalProtein [Mass/volume] in Serum or PlasmaOrdered By: Zaheer Sanon on 73-36-0353Xrirfrt [Mass/Vol]7.6 g/dL6.4-8.9[facility] HospitalRBC Auto (Bld) [#/Vol]Ordered By: Zaheer Sanon on 79-67-7516IIM (Bld) [#/Vol]4.24 10*6/uL3.60-5.00Z[facility] City Hospitalerum or plasma albumin/globulin mass ratioOrdered By: Zaheer Sanon on 10-42-3639Ootsvds/Globulin [Mass ratio]1.5 {ratio}[facility] City Hospitalerum or plasma anion gap determinationOrdered By: Zaheer Sanon on 27-13-8411Lorba gap [Moles/Vol]11.4 mmol/L6.0-15.0[facility] City Hospitalodium [Moles/volume] in Serum or PlasmaOrdered By: Zaheer Sanon on 23-35-8871Arjjzz [Moles/Vol]139 mmol/S022-892TrzwyhwfvBarberton Citizens Hospital Specific gravity Auto test strip (U) [Rel density]Ordered By: Zaheer Sanon on 24-15-9722Chpubzsm gravity (U) [Rel density]1.0061.001-1.030[facility] HospitalUrea nitrogen [Mass/volume] in Serum or PlasmaOrdered By: Zaheer Sanon on 84-60-5746Fyqy nitrogen [Mass/Vol]21 mg/dL7-25[facility] HospitalUrine clarity by refractometry automatedOrdered By: Zaheer Sanon on 22-68-0773Bvelxuh Refractometry automated (U)ClearClearFTrinity Health SystemUrine glucose measurement by automated test strip (mass/volume) Ordered By: Zaheer Sanon on 03-15-6578Ejmhrzm Auto test strip (U) [Mass/Vol] Normal mg/dLNoGalion Community HospitalUrine hemoglobin detection by automated test stripOrdered By: Zaheer Sanon on 49-39-9811Iipqzarvgz Auto test strip Ql (U)NegativeNegOhioHealth Marion General HospitalUrine leukocyte esterase detection by automated test stripOrdered By: Zaheer Sanon on 83-15-6234Ptadwaptu esterase Auto test strip Ql (U)NegativeNegOhioHealth Marion General HospitalUrobilinogen Auto test strip (U) [Mass/Vol]Ordered By: Zaheer Sanon on 09-25-3956Rihvverxclkk (U) [Mass/Vol]Normal mg/dLPromedica Memorial HospitalWBC Auto (Bld) [#/Vol]Ordered By: Zaheer Sanon on 33-39-2193YQD (Bld) [#/Vol]6.4 10*3/uL3.8-11.6FTrinity Health SystempH Auto test strip (U)Ordered By: Zaheer Sanon on 34-91-3353nZ (U)5.5 [pH]5.0-9.0[facility] HospitalActivated partial thromboplastin time (aPTT) in platelet poor plasma by coagulation aOrdered By: Tad Barger on 45-31-7838zPGJ Coag (PPP) [Time]29.2 s25.1-36.5FTrinity Health System Comment on above:A hematocrit value greater than 55% may lead to inaccurate results in coagulation testing. Patientshaving hematocrit values >55% require a special collection tube for coagulation studies. Please contact the laboratory at [phone] for redraw instructions.Alanine aminotransferase [Enzymatic activity/volume] in Serum or PlasmaOrdered By: Tad Barger on 82-88-4801AVM [Catalytic activity/Vol]17 U/L7-52[facility] HospitalAlbumin [Mass/volume] in Serum or Plasma by Bromocresol green (BCG) dye binding metho Ordered By: Tad Barger on 29-03-9500Dshbcti BCG dye [Mass/Vol]4.0 g/dL3.5-5.7 [facility] HospitalAlkaline phosphatase [Enzymatic activity/volume] in Serum or PlasmaOrdered By: Tad Barger on 53-33-7731GCQ [Catalytic activity/Vol]61 U/N06-967NhlxdlnceBarberton Citizens HospitalAspartate aminotransferase [Enzymatic activity/volume] in Serum or PlasmaOrdered By: Tad Barger on 94-95-3424KMH [Catalytic activity/Vol]28 U/Q94-45XegvlqqhaBarberton Citizens HospitalBasophils Auto (Bld) [#/Vol]Ordered By: Tad Barger on 03-24-2023 Basophils (Bld) [#/Vol]0.1 10*3/uL0.0-0.2FTrinity Health System Basophils/100 WBC Auto (Bld)Ordered By: Tad Barger on 05-45-3616Kibkgxmjm/100 WBC (Bld)0.9 %.[facility] HospitalBilirubin Auto test strip Ql (U) Ordered By: Tad Barger on 01-99-4187Oxgtixree Ql (U)NegativeNegativeBarberton Citizens HospitalBilirubin.direct [Mass/volume] in Serum or PlasmaOrdered By: Tad Barger on 84-54-7640Hrtbsmsoz.direct [Mass/Vol]0.10 mg/dL0.03-0.18 [facility] HospitalBilirubin.total [Mass/volume] in Serum or PlasmaOrdered By: Tad Barger on 26-10-4991Vxjcnigpg [Mass/Vol]0.8 mg/dL0.3-1.0 [facility] HospitalCalcium [Mass/volume] in Serum or PlasmaOrdered By: Tad Barger on 46-56-4109Iojpqzf [Mass/Vol]9.3 mg/dL8.6-10.3FTrinity Health SystemCarbon dioxide, total [Moles/volume] in Serum or Plasma Ordered By: Tad Barger on 27-72-4502DF2 [Moles/Vol]27.1 mmol/L21.0-31.0 [facility] HospitalChloride [Moles/volume] in Serum or Plasma Ordered By: Tad Barger on 98-79-6245Yiiwwvpc [Moles/Vol]109 mmol/L98-107 [facility] HospitalCreatine kinase [Enzymatic activity/volume] in Serum or PlasmaOrdered By: Tad Barger 20-40-2135HF [Catalytic activity/Vol] 279 U/H57-956LpuxbgqcpBarberton Citizens HospitalCreatinine [Mass/volume] in Serum or PlasmaOrdered By: Tad Barger 72-66-5655Movuddcyle [Mass/Vol]1.23 mg/dL 0.60-1.20[facility] HospitalEosinophils Auto (Bld) [#/Vol]Ordered By: Tad Barger on 99-19-3442Qejqfkdnjgb (Bld) [#/Vol]0.2 10*3/uL0.0-0.45 [facility] HospitalEosinophils/100 WBC Auto (Bld)Ordered By: Tad Barger on 94-88-5470Zjcmnrxqwae/100 WBC (Bld)3.1 %.[facility] HospitalErythrocyte distribution width Auto (RBC) [Ratio]Ordered By: Tad Barger on 53-53-3041Gvkdgizzguk distribution width (RBC) [Ratio]14.1 %11.9-15.3 [facility] HospitalGlobulin Calc (S) [Mass/Vol]Ordered By: Tad Barger on 58-45-7498Jemyqnai (S) [Mass/Vol]2.9 g/dLBarberton Citizens HospitalGlucose [Mass/volume] in Serum or PlasmaOrdered By: Tad Barger on 45-03-9031Porpnwi [Mass/Vol]51 mg/nV98-053LzukaiistBarberton Citizens Hospital Comment on above:ADA recommended reference rangeRandom Glucose Reference Range is dependent on time and content of last meal. Glucose of more than 200 mg/dL in a nonstressed, ambulatory subject supports the diagnosisof Diabetes Mellitus. Hematocrit Auto (Bld) [Volume fraction]Ordered By: Tad Barger on 03-24-2023 Hematocrit (Bld) [Volume fraction]36.1 %34.0-46.4FTrinity Health SystemHemoglobin [Mass/volume] in BloodOrdered By: Tad Barger on 03-24-2023 Hemoglobin (Bld) [Mass/Vol]12.1 g/dL11.8-15.4FTrinity Health System INR in Platelet poor plasma by Coagulation assayOrdered By: Tad Barger on 90-48-3745FDB Coag (PPP) [Relative time]0.9 {INR}[facility] HospitalComment on above:INR Therapeutic Range A) Pre- [...] strip (U) [Mass/Vol]Ordered By: Tad Barger on 95-35-1322Haebjsn (U) [Mass/Vol]NegativeNegativeBarberton Citizens HospitalLeukocytes [#/volume] corrected for nucleated erythrocytes in Blood by Automated counOrdered By: Tad Barger on 62-49-4387PNR corrected for nucl RBC Auto (Bld) [#/Vol]6.6 10*3/uL3.8-11.6FTrinity Health System Lipase [Enzymatic activity/volume] in Serum or PlasmaOrdered By: Tad Barger on 82-68-7907Coeoxn [Catalytic activity/Vol]91.0 U/L11.0-82.0[facility] HospitalLymphocytes Auto (Bld) [#/Vol]Ordered By: Tad Barger on 83-47-2720Kbhxnwyiwmi (Bld) [#/Vol]3.2 10*3/uL1.00-4.8[facility] HospitalLymphocytes/100 WBC Auto (Bld)Ordered By: Tad Barger on 03-24-2023 Lymphocytes/100 WBC (Bld)48.5 %.[facility] HospitalMCH Auto (RBC) [Entitic mass]Ordered By: Tad Barger on 52-16-9707TWM (RBC) [Entitic mass]30.6 pg24.7-34.3FTrinity Health SystemMCHC Auto (RBC) [Mass/Vol]Ordered By: Tad Barger on 87-29-6297ZZEQ (RBC) [Mass/Vol]33.7 g/dL32.0-35.0[facility] HospitalMCV Auto (RBC) [Entitic vol]Ordered By: Tad Barger on 84-89-2698FWI (RBC) [Entitic vol]90.9 mC32-181EajvvvrtiBarberton Citizens Hospital Monocyte distribution width [Entitic volume] in Blood by AutomatedOrdered By: Tad Barger on 27-63-7078Vplirolk distribution width Auto (Bld) [Entitic vol] 16.57 %0.00-20.00[facility] HospitalMonocytes Auto (Bld) [#/Vol] Ordered By: Tad Barger on 54-17-4005Lnikjyjbc (Bld) [#/Vol]0.7 10*3/uL0.0-0.8 [facility] HospitalMonocytes/100 WBC Auto (Bld)Ordered By: Tad Barger on 45-46-0250Ljxlejhry/100 WBC (Bld)10.9 %.[facility] HospitalNatriuretic peptide B [Mass/Vol]Ordered By: Tad Barger on 03-24-2023 Natriuretic peptide B (Bld) [Mass/Vol]244.0 pg/mL5-100Bar[facility] HospitalNeutrophils Auto (Bld) [#/Vol]Ordered By: Tad Barger on 03-24-2023 Neutrophils (Bld) [#/Vol]2.4 10*3/uL1.8-7.7FTrinity Health System Neutrophils/100 WBC Auto (Bld)Ordered By: Tad Barger on 03-24-2023 Neutrophils/100 WBC (Bld)36.6 %.[facility] HospitalNo Panel InformationOrdered By: Tad Barger on 62-50-7746Xnnknqpdy GFR (CKD-EPI)53.870 mL/MinBarberton Citizens HospitalPharmacy Creatinine Clearance (Chem49.35 [facility] HospitalNucleated erythrocytes [Presence] in Blood by Automated countOrdered By: Tad Barger on 52-91-5590Dphecjqmq RBC Auto Ql (Bld) 0.0 /100{WBC}0-0.5FTrinity Health SystemPlatelet mean volume Auto (Bld) [Entitic vol]Ordered By: Tad Barger on 65-85-8328Ghjdcmlm mean volume (Bld) [Entitic vol]8.5 fL6.3-10.7FTrinity Health SystemPlatelets Auto (Bld) [#/Vol]Ordered By: Tad Barger on 26-96-6759Dvbamggka (Bld) [#/Vol]272 10*3/wN120-378GapcoytimBarberton Citizens HospitalPotassium [Moles/volume] in Serum or PlasmaOrdered By: Tad Barger on 69-84-2639Emujfgnea [Moles/Vol]3.8 mmol/L 3.5-5.1FTrinity Health SystemProtein Auto test strip (U) [Mass/Vol] Ordered By: Tad Barger on 06-03-0970Ogrmoti (U) [Mass/Vol]NegativeNegative [facility] HospitalProtein [Mass/volume] in Serum or PlasmaOrdered By: Tad Barger on 45-65-2696Myorevc [Mass/Vol]6.9 g/dL6.4-8.9[facility] HospitalProthrombin time (PT)Ordered By: Tad Barger on 45-18-9339ZI Coag (PPP) [Time]10.0 s9.0-12.9[facility] Comment on above:A hematocrit value greater than 55% may lead to inaccurate results in coagulation testing. Patientshaving hematocrit values >55% require a special collection tube for coagulation studies. Please contact the laboratory at [phone] for redraw instructions.RBC Auto (Bld) [#/Vol]Ordered By: Tad Barger on 11-20-8297JZA (Bld) [#/Vol]3.97 10*6/uL3.60-5.00[facility] City Hospitalerum or plasma albumin/globulin mass ratioOrdered By: Tad Barger on 94-83-3221Zsnsilk/Globulin [Mass ratio]1.4 {ratio}[facility] Hospitalerum or plasma anion gap determinationOrdered By: Tad Barger on 05-18-9097Qihnj gap [Moles/Vol]8.7 mmol/L6.0-15.0[facility] Hospitalerum or plasma non-glucuronidated bilirubin measurement (mass/volume) Ordered By: Tad Barger on 44-69-1529Qkqcnyykf.indirect [Mass/Vol]0.7 mg/dL [facility] Hospitalodium [Moles/volume] in Serum or PlasmaOrdered By: Tad Barger 64-05-9882Pcsnhn [Moles/Vol]141 mmol/S504-226UzwtkgmhhBarberton Citizens HospitalTroponin I.cardiac [Mass/volume] in Serum or Plasma by Detection limit <= 0.01 ng/Ordered By: Tad Barger 22-78-8915Zmsqfxji I.cardiac DL <= 0.01 ng/mL [Mass/Vol]4.9 pg/mL0.0-15.0[facility] HospitalUrea nitrogen [Mass/volume] in Serum or PlasmaOrdered By: Tad Barger 53-14-6117Gvtc nitrogen [Mass/Vol]23 mg/dL7-25[facility] Urine appearanceOrdered By: Tad Barger 29-88-0914Ebopapoyfc (U)ClearClear [facility] HospitalUrine colorOrdered By: Tad Barger on 66-38-6823Owvqg (U)YellowYellowBarberton Citizens HospitalUrine glucose measurement by automated test strip (mass/volume)Ordered By: Tad Barger on 04-96-6723Wmytwrp Auto test strip (U) [Mass/Vol]Normal mg/dLNoGalion Community HospitalUrine hemoglobin detection by automated test stripOrdered By: Tad Barger on 33-44-9985Rataqvdqjg Auto test strip Ql (U)NegativeNegative [facility] HospitalUrine leukocyte esterase detection by automated test stripOrdered By: Tad Barger on 29-28-5363Oyrgmzlvr esterase Auto test strip Ql (U)NegativeNegOhioHealth Marion General HospitalUrine nitrite detection by automated test stripOrdered By: Tad Barger on 68-67-8636Kytrfzw Auto test strip Ql (U)NegativeNegOhioHealth Marion General Hospital Urobilinogen Auto test strip (U) [Mass/Vol]Ordered By: Tad Barger on 03-24-2023 Urobilinogen (U) [Mass/Vol]Normal mg/dLKettering Health Troy WBC Auto (Bld) [#/Vol]Ordered By: Tad Barger on 59-28-7324TZL (Bld) [#/Vol]6.6 10*3/uL3.8-11.6FTrinity Health SystempH Auto test strip (U)Ordered By: Tad Barger on 21-94-4411nQ (U)1.020 [pH]1.001-1.030Barberton Citizens HospitalpH (U)5.5 [pH]5.0-9.0Barberton Citizens HospitalOT Initial Evalutationon [id number] Initial EvalutationNo report was sentNormalU TouchworksTherapy Communicationon 67-91-5094Mgzfbgo CommunicationMessagwyn CAMARILLO no showed today 10/23/2022. Signatures Electronically signed by : Dc Wu CHT OTR/L; Oct 23 2022 11:15AM EST (Author)NormalUH TouchworksEstablished Visit (Orthopaedic Surgery)on 72-44-0560Ntxtggopzuo Visit (Orthopaedic Surgery)Provider Impressions ASSESSMENT: Right small [...] PIP flexion contracture. She had surgery in [place]. The operative note indicates that the volar [...] Acosta, ; Oct 21 2022 9:07AM EST (Associate Software Development Engineer/Recorder) Electronically signed by : Humphrey Pfeiffer DO; Oct 28 2022 10:32AM Yang Breakout StudiosHAND MIN 3 VIEWSon 50-99-3970FAEX MIN 3 VIEWSMRN: [id number] Patient Name: TASNEEM CAMARILLO STUDY: HAND MIN 3 VIEWS INDICATION: pain, old injury G89.18: Post-op pain. COMPARISON: None ACCESSION NUMBER(S): [id number] ORDERING CLINICIAN: MELI BRAVO FINDINGS: Flexion deformity with some arthrosis at the right 5th proximal interphalangeal joint likely related to remote fracture. No acute findings right hand. 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 No acute findings right hand. 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 I will see her back in three weeks to review the operative note and decide where we go from there. Chief Complaint [facility] Lt ring finger xrays at History of [...] She wasseen by a hand surgeon in [place] and ultimately underwent a surgical release. She [...] [facility] use. The patient [...] Acosta, ; Sep 24 2022 3:05PM EST (Associate Software Development Engineer/Recorder) Electronically signed by : Humphrey Pfeiffer, DO; Sep 24 2022 5:46PM SORAYANormMariano TouchworksRadiologyon [id number] Hand 3 [facility] [place] [facility] Work Phone: Established Visit (Pain Medicine)on 07-08-2022 [...] proceed but is needing to choose the [employer] device over the DRG device as [...] Recorded: 08Jul2022 02:44PM Height5 ft 2 in Ckedap381 lb BMI Nvutarnjsm37.78 kg/m2 BSA Calculated1.59 Tobacco Useb) No Falls [...] content not included)...NormalUH TouchworksCT ABD/PELVIS WO CONon [id number] ABD/PELVIS WO CONEXAM: CT SCAN OF THE [...] Electronically authenticated by: VALARIE GOSS Date: 2022-06-13 00:[address] [place], [place] [address]CT CHEST WO CONon [id number] CHEST WO CONEXAMINATION: CT CHEST WO CON [...] Electronically authenticated by: RULA ANGELH Date: 2022-06-13 00:45[facility] URINE PROFILEon 13-13-4388Rarqjbrbw Ql (U)MODERATEAbnormal NEGATIVECommunity Memorial HospitalComment on above:Performed By: #### ERUSelwyn UMICRO ####[facility] Lhexayjyln[address] [place], [place]Dr. Yilan ChangClarity (U)CLEARNormalCLEARCommunity Memorial HospitalComment on above: Performed By: #### ERUR UMICRO ####[facility] Ntbhmteywj8[address] [place], [place]Dr. Yilan ChangColor (U)YELLOWNormalYELLOWCommunity Memorial HospitalComment on above:Performed By: #### ERUR UMICRO ####[facility] Lupjuegven[address] [place], [place]Dr. Yadiel PaulinoDA micrscopic examination will be performed if indicated.NormalCommunity Memorial HospitalComment on above:Performed By: #### ERUR, UMICRO ####[facility] Mxyjjcyxtl3612 [place], [place]Dr. Yilan ChangGlucose Ql (U) NegativeNormalNEGATIVECommunity Memorial HospitalComment on above:Performed By: #### ERUR, UMICRO ####[facility] Lbknzsvzwz05[address] [place], [place] [address]Lg. Yilan ChangHemoglobin Ql (U)SMALLAbnormalNEGATIVECommunity Memorial Hospital Comment on above:Performed By: #### FRENCH UMICRO ####[facility] Hifivurtgn6[address] [place], [place]Dr. Yadiel DaveKetones Ql (U) NegativeNormalNEGATIVEThe [facility] HospitalComment on above:Performed By: #### FRENCH UMICRO ####[facility] Ydvjzyimfp4370 [place], [place] [address]Rz. Yadiel AcostaLEUKOCYTESNegativeNormalNEGATIVEThe [facility] HospitalComment on above:Performed By: #### FRENCH UMICRO ####[facility] Ecgtcviala[address] [place], [place]Dr. Yadiel AcostaNitrite Ql (U)NegativeNormal NEGATIVEThe [facility] HospitalComment on above:Performed By: #### FRENCH UMICRO ####[facility] Xksqxq[address]xz[address] [place] [id number]. Yadiel AcostapH (U)5.5 [pH]Normal5-9The [facility] HospitalComment on above: Performed By: #### FRENCH UMICRO ####[facility] Vegdtfqwcn5319 [place], [place]Dr. Yadiel AcostaSPEC GRAVITY>=1.990Gexquqwq1.005-<=1.025 The [facility] HospitalComment on above:Performed By: #### FRENCH UMICRO ####[facility] Zgbkcyrfxr0294 [place], [place]Dr. Yadiel AcostaUA PROTEINNegativeNormalNEGATIVE/ TRACEThe [facility]ford HospitalComment on above:Performed By: #### FRENCH UMICRO ####[facility] Hdyazohdik5[address] [place], [place]Dr. Yadiel AcostaUR MICRO INDINDICATEDNormalThe [facility] HospitalComment on above:Performed By: #### FRENCH UMICRO ####[facility] Yohjayfzmv3453 [place], [place]Dr. Yadiel Acosta Urobilinogen Qn (U)0.2 {Stan'U}/dLNormal0.2 - 1.0[facility] on above:Performed By: #### ERURROCIORO ####[facility] Crytcinmmb[address] [place], [place] [address]Dr. Yadiel ChangINFLUENZA A AND B AGon 67-54-8376DBYVSULUJDBJC CentervilleComment on above:Result Comment: Negative for Flu A protein angiten. Infection due to Flu A cannot be ruled out. FluA angiten in the sample may be below the detection limit of the test.Performed By: #### INFLUAB ####[facility] Gxzfs[address]kgs[address] [place], [place] [address]Dr. Yadiel AcostaINFLUBNEGHSEE [facility] on above:Result Comment: Negative for Flu B protein antigen. Infection due to Flu B cannot be ruled out. FluB antigen in the sample may be below the detection limit of the test.Performed By: #### INFLUAB ####[facility] [address]oml[address] [place], [place] [address]Dr. Rosettecharlee Acosta INFLUENZA A AGNegativeNormalNEGATIVE SEE COMMENTThe [facility] on above:Performed By: #### INFLUAB ####[facility] Spytcthler[address] [place], [place] [address]Dr. Yadiel ChangINFLUENZA B AGNegativeNormalNEGATIVE SEE COMMENTSycamore Medical Center on above:Performed By: #### INFLUAB ####[facility] Rdbcqzrzus[address] [place], [place] [address]Dr. Yadiel DaveLIPASEon 89-08-5566Ogydiu [Catalytic activity/Vol]160.0 U/LNormal 73.0-393.0The [facility] on above:Performed By: #### CMP, LIPA ####[facility] Knhylqhhuw[address] [place], [place] [address]Dr. Rosettecharlee DavePROF 14(COMP METB)on 16-15-6563Guirtmm [Mass/Vol]4.4 g/dLNormal 3.4-5.0The [facility] on above:Performed By: #### CMP, LIPA ####[facility] H[address]ubfhcpm[address] [place] [address]Dr. Yilan ChangAlbumin/Globulin [Mass ratio]1.2 {ratio}NormalThe [facility] Comment on above:Performed By: #### CMP, LIPA ####[facility] Jqbwjpefjd[address] [place] [address]Dr. Yilan ChangALP [Catalytic activity/Vol]109 U/PVnvhml87-336Bsr [facility] HospitalComment on above:Performed By: #### CMP, LIPA ####[facility] Lkfbknnhuo24[address] [place] [address]Dr. Yilan ChangALT [Catalytic activity/Vol]27 U/L Cswlgq20-74Iyp [facility] HospitalComment on above:Performed By: #### CMP, LIPA ####[facility] Dktkfnfylq[address] [place], [place] [address]Dr. Yilan ChangAnion gap [Moles/Vol]20.7 mmol/LNormalThe [facility] HospitalComment on above:Performed By: #### CMP, LIPA ####[facility] Ulnljesvhu[address] [place], [place] [address]Dr. Yilan ChangAST [Catalytic activity/Vol]35 U/L Cprdcy65-89Cmp [facility] HospitalComment on above:Performed By: #### CMP, LIPA ####[facility] Vpdhlywoqa[address] [place], [place] [address]Dr. Yilan ChangBilirubin [Mass/Vol]1.2 mg/dLCritically high0.2-1.0The [facility] HospitalComment on above:Performed By: #### CMP, LIPA ####[facility] Muljgzkesn[address] [place], [place] [address]Dr. Yilan ChangCalcium [Mass/Vol]9.3 mg/dLNormal8.5-10.1The [facility] HospitalComment on above:Performed By: #### CMP, LIPA ####[facility] Nrwhokclte[address] [place], [place] [address]Dr. Yilan ChangChloride [Moles/Vol]98 mmol/LNormal 98-107The Gela HospitalComment on above:Performed By: #### CMP, LIPA ####[facility] Dbqvgqxtey[address] [place], [place] [address]Dr. Yilan ChangCO2 [Moles/Vol]21.6 mmol/XEixlti24.0-32.0The [facility] HospitalComment on above:Performed By: #### CMP, LIPA ####[facility] Vbmrlbflxq[address] [place], [place] [address]Dr. Yilan ChangCreatinine [Mass/Vol]1.07 mg/dL Critically high0.55-1.02The [facility] HospitalComment on above:Performed By: #### CMP, LIPA ####[facility] Elaicrhloy[address] [place], [place] [address]Dr. Yilan ChangEGFR-AF SYRIAN>60Normal>=60The [facility] HospitalComment on above:Performed By: #### CMP, LIPA ####[facility] Kohpcjmbrp[address] [place], [place] [address]Dr. Yilan ChangEGFR-NON AF VJOCRDVU27 mL/min/1.69x2Ygmqmnrpro low>=60The [facility] HospitalComment on above:Performed By: #### CMP, LIPA ####[facility] Ugqfelfxfu[address] [place], [place] [address]Dr. Rosettelan ChangGlobulin (S) [Mass/Vol]3.6 g/dLNormal The [facility] HospitalComment on above:Performed By: #### CMP, LIPA ####[facility] [address]vdiepujt[address] [place], [place] [address]Dr. Rosettelan Acosta Glucose [Mass/Vol]77 mg/nPSknmhz07-415Ews [facility] HospitalComment on above: Performed By: #### CMP, LIPA ####[facility] [address]rwysvcns[address] [place], [place] [address]Dr. Yilan ChangPotassium [Moles/Vol]3.3 mmol/L Critically low3.5-5.1The [facility] HospitalComment on above:Performed By: #### CMP, LIPA ####[facility] [address]wnbytyoyx[address] [place], [place] [address]Dr. Yilan ChangProtein [Mass/Vol]8.0 g/dLNormal6.4-8.2The [facility] Comment on above:Performed By: #### CMP, LIPA ####[facility] [address]oxqod[address] [place] [address]Dr. Yilan ChangSodium [Moles/Vol]137 mmol/BZhqxqj363-396Xyc [facility] HospitalComment on above: Performed By: #### CMP, LIPA ####[facility] Aeqdlwahah[address] [place] [address]Dr. Yilan ChangUrea nitrogen [Mass/Vol]27.0 mg/dL Critically high7.0-18.0The [facility] HospitalComment on above:Performed By: #### CMP, LIPA ####[facility] Gowhduaary[address] [place] [address]Dr. Yilan ChangUrea nitrogen/Creatinine [Mass ratio]25.2 mg/mgNormSt. John of God HospitalComment on above:Performed By: #### CMP, LIPA ####[facility] W[address]gxnpfs[address] [place] [address]Dr. Rosettelan ChangURINE MICROSCOPIC ONLYon 50-74-2385TERZPXAMDVUP SEENNormalNONE SEENCommunity Memorial HospitalComment on above:Performed By: #### ROCIO BRASWELLRO ####[facility] Bbscmjiwdt[address] [place] [address]Dr. Yadiel ChangBacteria identified Cx Nom (U)NOT INDICATEDNoAdams County Regional Medical CenterComment on above: Performed By: #### MAYELA BRASWELLICRO ####[facility] Rxhgvbmdfj3[address] [place] [address]Dr. Yadiel ChangCASTNONE SEENNormalNONE SEENCommunity Memorial HospitalComment on above:Performed By: #### FRENCH UMICRO ####[facility] [address] [place], [place] [address]Dr. Yadiel ChangCrystals LM Nom (Urine sed)NONE SEENNormalNONE SEENCommunity Memorial HospitalComment on above: Performed By: #### ERUR, UMICRO ####[facility] Cdwtjaousb27[address] [place], [place]Dr. Rosettelan ChangEpithelial cells LM Ql (Urine sed)RARE NormalNONE SEEN /RAREThe [facility] HospitalComment on above:Performed By: #### FRENCH, UMICRO ####[facility] [address]qkwvbod[address] [place] [address]Dr. Yadiel ChangMUCOUSNONE SEENNormalNONE SEENCommunity Memorial HospitalComment on above:Performed By: #### FRENCH, UMICRO ####[facility] Etnqvmpixd2502 [place], [place]Dr. Yicharlee NmwbpHPA1-0Luwxmh9-4Fde [facility] HospitalComment on above:Performed By: #### FRENCH UMICRO ####[facility] Ypxldhbosf[address] [place] [address]Dr. Yadiel ChangWBCNONE SEEN NormalNONE SEENCommunity Memorial HospitalComment on above:Performed By: #### FRENCH UMICRO ####[facility] Uqtuohitdp[address] [place] [address]Dr. Yadiel AcostaC with Diffon 28-71-4075Lym. Basophil0.00 k/uLNormal 0.0-0.2[facility] Health SystemComment on above:Performed By: #### RAMIRO PABON, LIP #### [facility] [place] [facility] [address] [place] [address] Radio Equipment Installer: Jasmin Vides.Neutrophil (Seg)3.70 k/uLNormal2.5-7.0[facility], Edwin ShawComment on above:Performed By: #### RAMIRO PABON, LIP #### [facility] [place] [facility] [address] [place] [address] Radio Equipment Installer: Estela Vides Diff PerformedYESNoCleveland Clinic Euclid Hospital Comment on above:Performed By: #### RAMIRO PABON, LIP #### [facility] [place] [facility] [address] [place] [address] Radio Equipment Installer: Mine Roblero MDBasophils/100 WBC (Bld)1 %Normal0-2MGerman HospitalComment on above:Performed By: #### CP, CDP, LIP #### [facility] [place] [facility] [address] [place] [address] Radio Equipment Installer: ROSEMARY Videsosinophils (Bld) [#/Vol]0.10 10*3/uLNormal0.0-0.4 [facility], Edwin ShawComment on above:Performed By: #### CP, CDP, LIP #### [facility] [place] [facility] [address] [place] [address] Radio Equipment Installer: ROSEMARY Videsosinophils/100 WBC (Bld)1 %Normal0-5[facility], Edwin ShawComment on above:Performed By: #### CP, CDP, LIP #### [facility] [place] [facility] [address] [place] [address] Radio Equipment Installer: Mine Roblero MDErythrocyte distribution width (RBC) [Ratio]13.7 % Nhuiqs96.1-15.2MGerman HospitalComment on above:Performed By: #### CP, CDP, LIP #### [facility] [place] [facility] [address] [place] [address] Radio Equipment Installer: Mine Roblero MDHematocrit (Bld) [Volume fraction]40.3 %Normal 36-46[facility], Edwin ShawComment on above:Performed By: #### CP, CDP, LIP #### [facility] [place] [facility] [address] [place] [address] Radio Equipment Installer: Mine Roblero MDHemoglobin (Bld) [Mass/Vol]13.4 g/dLNormal 12.0-16.0[facility], Edwin ShawComment on above:Performed By: #### CP, CDP, LIP #### [facility] [place] [facility] [address] [place] [phone] Radio Equipment Installer: Mine Roblero MDLymphocytes (Bld) [#/Vol]2.20 10*3/uLNormal1.0-4.8 [facility] ShawComkresge eye institute on above:Performed By: #### CP, CDP, LIP #### [facility] [place] [facility] [address] [place] [address] Radio Equipment Installer: Astrid Videsmphocytes/100 WBC (Bld)34 %Qkitds73-75UqpmgSelect Medical Cleveland Clinic Rehabilitation Hospital, Edwin ShawComment on above:Performed By: #### CP, CDP, LIP #### [facility] [place] [facility] [address] [place] [address] Radio Equipment Installer: JAY VidesCH (RBC) [Entitic mass]29.7 xoOuqdkl31-67SvsdwSelect Medical Cleveland Clinic Rehabilitation Hospital, Edwin ShawComment on above:Performed By: #### CM, CDP, LIP #### [facility] [place] [facility] [address] [place] [address] Radio Equipment Installer: GANESH VidesC (RBC) [Mass/Vol]33.3 g/mPMqlwyn50-52BobnuSelect Medical [facility] Clinic Rehabilitation Hospital, Edwin ShawComment on above:Performed By: #### CP, CDP, LIP #### [facility] [place] [facility] [address] [place] [address] Radio Equipment Installer: JAY VidesCV (RBC) [Entitic vol]89.0 tQQblyqr99-276BuautSelect Medical [facility] Clinic Rehabilitation Hospital, Edwin ShawComkresge eye institute on above:Performed By: #### CP, CDP, LIP #### [facility] [place] [facility] [address] [place] [address] Radio Equipment Installer: JAY Videsonocytes (Bld) [#/Vol]0.40 10*3/uLNormal0.0-1.0 [facility] ShawComkresge eye institute on above:Performed By: #### CP, CDP, LIP #### [facility] [place] [facility] [address] [place], [place] [address] Radio Equipment Installer: JAY Videsonocytes/100 WBC (Bld)6 %Normal4-8[facility], Edwin ShawComment on above:Performed By: #### CP, CDP, LIP #### [facility] [place] [facility] [address] [place] [address] Radio Equipment Installer: Mine Roblero MDNeutrophil (Seg)58 %Quetli81-96SzytfSelect Medical Cleveland Clinic Rehabilitation Hospital, Edwin ShawComment on above:Performed By: #### CP, CDP, LIP #### [facility] [place] [facility] [address] [place] [address] Radio Equipment Installer: Catrachita Videstelets (Bld) [#/Vol]245 10*3/kBTioypb114-016 [facility], Edwin ShawComment on above:Performed By: #### CM, CDP, LIP #### [facility] [place] [facility] [address] [place] [address] Radio Equipment Installer: BRAIN VidesBC (Bld) [#/Vol]4.53 10*6/uLNormal4.0-5.2MGerman HospitalComment on above:Performed By: #### CP, CDP, LIP #### [facility] [place] [facility] [address] [place] [address] Radio Equipment Installer: VICTORIA VidesBC (Bld) [#/Vol]6.4 10*3/uLNormal3.5-11.0[facility] on above:Performed By: #### CP, CDP, LIP #### [facility] [place] [facility] [address] [place] [phone] Radio Equipment Installer: Mine Roblero MDAbsolute Eos #0.10[facility] HEALTHAbsolute Lymph #2.20[facility] HEALTHAbsolute Dickey #0.40[facility] Basophils (Bld) [#/Vol]0.00 10*3/uLBON SECOURS [facility] HEALTHBasophils/100 WBC (Bld)1 %0 - 2 %[facility] HEALTHDifferential TypeYESBON SECOURS MERCY HEALTHEosinophils/100 WBC (Bld)1 %0 - 5 %[facility] HEALTHHematocrit (Bld) [Volume fraction]40.3 %36 - 46 %[facility] HEALTHHemoglobin (Bld) [Mass/Vol]13.4 g/dL12.0 - 16.0 g/dLB[facility] SECOURS [facility]ENT[facility] HEALTHLymphocytes/100 WBC (Bld)34 %15 - 40 %[facility] HEALTHH (RBC) [Entitic mass]29.7 pg26 - 34 pgBON SECOURS KETTERING HEALTH MIAMISBURGHC (RBC) [Mass/Vol]33.3 g/dL31 - 37 g/dLB[facility]OURS [facility]ENTERY HEALTHMCV (RBC) [Entitic vol]89.0 fL80 - 100 fLBON SECOURS [facility] Monocytes/100 WBC (Bld)6 %4 - 8 %[facility]ENTERY HEALTHPlatelet distribution width (Bld) [Ratio]13.7 %12.1 - 15.2 %[facility]ENTERY HEALTHPlatelets (Bld) [#/Vol]245 10*3/uLBON SECOURS LAKEHEALTH TRIP[facility] MEDICAL CENTERY HEALTHRBC (Bld) [#/Vol]4.53 10*6/uL4.0 - 5.2 m/uLBON SECOURS [facility] HEALTHSegmented neutrophils/100 WBC (Bld)58 %47 - 75 %[facility]ENT[facility] HEALTHSegs Absolute3.70[facility]ENT[facility] HEALTHWBC (Bld) [#/Vol] 6.4 10*3/uLBON SECOURS [facility] HEALTHB[facility]ENTERY HEALTHCMPon 04-11-2022 Albumin [Mass/Vol]4 g/dL3.5 - 5.2 g/dLBON SECOURS LAKEHEALTH TRIP[facility] CENTERY HEALTHALP [Catalytic activity/Vol]85 U/L35 - 104 U/LBON SECOURS MERCY HEALTHALT [Catalytic activity/Vol]12 U/L5 - 33 U/LBON [facility]OURS MERCY HEALTHAnion gap [Moles/Vol]12 mmol/L9 - 17 mmol/LBON SECOURS MERCY HEALTHAST [Catalytic activity/Vol]21 U/L NINF - 32 U/LBON SECMERCY HEALTH URBANA HOSPITALBilirubin [Mass/Vol]0.5 mg/dL0.3 - 1.2 mg/dLBON SECMERCY HEALTH URBANA HOSPITALCalcium [Mass/Vol]9.0 mg/dL8.6 - 10.4 mg/dLBON SECMERCY HEALTH URBANA HOSPITALChloride [Moles/Vol]105 mmol/L98 - 107 mmol/LBON ESTELLE DOHENY EYE HOSPITALAdvanced Bioimaging Systems [facility] VALLEY HOSPITALCO2 [Moles/Vol]23 mmol/L20 - 31 mmol/LBON [facility] [employer] Creatinine [Mass/Vol]1.03 mg/dLHigh0.50 - 0.90 mg/dLBON [facility] [employer] GFR/1.73 sq M.predicted MDRD (S/P/Bld) [Vol rate/Area]- PINFBON [facility] HOSPITALComment on above: These results are not [...] that affects renal tubular secretion. Glucose [Mass/Vol]119 mg/oFArui19 - 99 mg/dLBON [facility] [employer] Interpretation and review of laboratory resultsAbnormalBON [facility] [employer] Potassium [Moles/Vol]3.4 mmol/LLow3.7 - 5.3 mmol/LBON ESTELLE DOHENY EYE HOSPITALDigital Railroad Protein [Mass/Vol]6.6 g/dL6.4 - 8.3 g/dLBON ESTELLE DOHENY EYE HOSPITALAdvanced Bioimaging Systems [facility] MIAM[facility] VALLEY HOSPITALSodium [Moles/Vol]140 mmol/L135 - 144 mmol/LBON [facility] [employer] MusicUrea nitrogen [Mass/Vol]23 mg/dLHigh6 - 20 mg/dLBON [facility] [employer] MusicUrea nitrogen/Creatinine (Bld) [Mass ratio]60Tvmv0 - 20BON ESTEL[facility] DOHENY EYE HOSPITALAdvanced Bioimaging Systems [facility] VALLEY HOSPITALCT ABDOMEN PELVIS WO CONTRASTon [id number] ABDOMEN PELVIS WO CONTRASTEXAMINATION: CT ABDOMEN PELVIS WO CONTRAST, 04/11/2022 3:49 PM EST HISTORY: Reason for exam:->right flank pain and RLQ pain hx of kidney stone COMPARISON: [place] 09/18/2021. TECHNIQUE: CT scan of the abdomen [...] by: Roddy Balbuena Jr., MD 04/11/22 Final resultNormalSelect Medical [facility] Rehabilitation Hospital, Edwin ShawCT ABDOMEN PELVIS WO CONTRAST Additional Contrast? Noneon 04-11-2022 Punctate nonobstructing stone barely visible in the right kidney. No explanation for pain. [facility] CONSOLIDATEDEXAMINATION: CT ABDOMEN PELVIS WO CONTRAST, 04/11/2022 3:49 PM EST HISTORY: Reason for exam:->right flank pain and RLQ pain hx of kidney stone COMPARISON: [place] 09/18/2021. TECHNIQUE: CT scan of the abdomen [...] spleen, pancreas and adrenal glands. Bladder empty. [facility] Roddy Perez Jr., MD - 04/11/2022 EXAMINATION: CT ABDOMEN PELVIS WO CONTRAST, 04/11/2022 3:49 PM EST HISTORY: Reason for exam:->right flank pain and RLQ pain hx of kidney stone COMPARISON: [place] 09/18/2021. TECHNIQUE: CT scan of the abdomen [...] the right kidney. No explanation for pain. [facility] [employer] Phone: radiology Study observation (narrative)[employer] [facility] MEDICAL CENTERMass Vector Phone: cT ABDOMEN PELVIS WO CONTRAST Additional Contrast? NoneOrdered By: Roddy Balbuena on [id number] [facility] MEDICAL CENTERMass Vector Phone: Comp Metabolic Profon 26-23-2075Kbsqyei [Mass/Vol]4.0 g/dLNormal3.5-5.2[facility] Health SystemComment on above:Performed By: #### RAMIRO PABON, LIP #### [facility] [place] [facility] [address] [id number] Radio Equipment Installer: Mine Roblero MDAlkaline Phos85 U/APbxeui41-017TxnfpSelect Medical Cleveland Clinic Rehabilitation Hospital, Edwin ShawComment on above:Performed By: #### RAMIRO PABON, LIP #### [facility] [address] [place] [address] Radio Equipment Installer: Mine Roblero MDALT [Catalytic activity/Vol]12 U/LNormal5-33[facility], Edwin ShawComment on above:Performed By: #### RAMIRO PABON, LIP #### [facility] [place] [facility] [address] [place] [address] Radio Equipment Installer: Mine Roblero MDAnion gap [Moles/Vol]12 mmol/LNormal9-17[facility], Edwin ShawComkresge eye institute on above:Performed By: #### CM CDP, LIP #### [facility] [place] [facility] [address] [place] [address] Radio Equipment Installer: Mine Roblero MDAST [Catalytic activity/Vol]21 U/LNormal<32[facility], Edwin ShawComment on above:Performed By: #### CP, CDP, LIP #### [facility] [place] [facility] [address] [phone] Radio Equipment Installer: Mine Roblero MDBilirubin [Mass/Vol]0.5 mg/dLNormal0.3-1.2MGerman HospitalComment on above:Performed By: #### CP, CDP, LIP #### [facility] [place] [facility] [address] [place] [address] Radio Equipment Installer: Mine Roblero MDBUN/CRE Fduze27Noeq9-88TrsipSelect Medical Cleveland Clinic Rehabilitation Hospital, Edwin Shaw Comment on above:Performed By: #### CP, CDP, LIP #### [facility] [place] [facility] [address] [place] [address] Radio Equipment Installer: GEARLD Videsalcium [Mass/Vol]9.0 mg/dLNormal8.6-10.4[facility] Hospital, Edwin ShawComment on above:Performed By: #### CP, CDP, LIP #### [facility] [place] [facility] [address] [place] [address] Radio Equipment Installer: GERALD Videshloride [Moles/Vol]105 mmol/XOxypxk54-098VrdfhSelect Medical Cleveland Clinic Rehabilitation Hospital, Edwin ShawComment on above:Performed By: #### CP, CDP, LIP #### [facility] [address] [place] [address] Radio Equipment Installer: Mine Roblero MDCO2 [Moles/Vol]23 mmol/TLsgefn94-09KqsbbSelect Medical Cleveland Clinic Rehabilitation Hospital, Edwin ShawComment on above:Performed By: #### CP, CDP, LIP #### [facility] [place] [facility] [address] [phone] Radio Equipment Installer: GERALD Videsreatinine [Mass/Vol]1.03 mg/dLHigh0.50-0.90[facility] Hospital, Edwin ShawComment on above:Performed By: #### CP, CDP, LIP #### [facility] [address] [phone] Radio Equipment Installer: Mine Roblero MDGFR/1.73 sq M.predicted among non-blacks MDRD (S/P/Bld) [Vol rate/Area]mL/min/{1.73_m2}Normal>60[facility] Hospital, Edwin ShawComment on above:Result Comment: These results are not [...] secretion.Performed By: #### CM CDP, LIP #### [facility] [address] [place] [address] Radio Equipment Installer: Mine Roblero MDGlucose [Mass/Vol]119 mg/gBBycu86-93EbasiGerman HospitalComment on above:Performed By: #### CM CDP, LIP #### [facility] [address] [place] [address] Radio Equipment Installer: SURINDER Videsotassium [Moles/Vol]3.4 mmol/LLow3.7-5.3MGerman HospitalComment on above:Performed By: #### CM CDP, LIP #### [facility] [address] [phone] Radio Equipment Installer: Mine Roblero MDProtein [Mass/Vol]6.6 g/dLNormal6.4-8.3MGerman HospitalComment on above:Performed By: #### CP CDP, LIP #### [facility] [address] [phone] Radio Equipment Installer: Mine Roblero MDSodium [Moles/Vol]140 mmol/KQlpela375-275EhwqySelect Medical Cleveland Clinic Rehabilitation Hospital, Edwin ShawComment on above:Performed By: #### CM CDP, LIP #### [facility] [address] [place], [place] [phone] Radio Equipment Installer: Mine Roblero MDUrea nitrogen [Mass/Vol]23 mg/dLHigh6-20[facility] Hospital, Edwin ShawComment on above:Performed By: #### CM CDP, LIP #### [facility] [address] [place], [place] [phone] Radio Equipment Installer: Mine Roblero MDLipaseon 34-99-2126Sohjxt [Catalytic activity/Vol] 52 U/NCvfqus39-45AyjprSelect Medical Cleveland Clinic Rehabilitation Hospital, Edwin ShawComment on above:Performed By: #### RAMIRO PABON, LIP #### [facility] [address] [place] [address] Radio Equipment Installer: Mine Roblero MDLipase [Catalytic activity/Vol]52 U/L13 - 60 U/L [facility] HEALTHMicroscopic Urinalysison 04-11-2022-BON [facility]PLAQU[facility]IN[facility] HEALTHBacteria, UA2+AbnormalNoneBON [facility] HEALTHEpithelial Cells UA10 TO 20/HPFRIVERSIDE WALTER REED HOSPITALY HEALTHInterpretation and review of laboratory results AbnormalBON ESTELLE DOHENY EYE HOSPITALY HEALTHRBC clumps Auto (Urine sed) [#/Area]2 TO 5BON SECST. ANTHONY HOSPITALY HEALTHWBC, UA2 TO 50 /HPFBON SEC[facility] HEALTHBON SECST. [facility]ON[facility] HOS[facility]ITALY HEALTHNo Panel Informationon [id number] SECST. ANTHONY HOSPITALY HEALTHUrinalysison 09-86-3299Wdtdkmoql UrineNegativeNEGATIVERIVERSIDE WALTER REED HOSPITALY HEALTHColor, UAYellow YellowBON [facility] HEALTHGlucose Auto test strip (U) [Mass/Vol]Negative NEGATIVEBON ESTELLE DOHENY EYE HOSPITALY HEALTHInterpretation and review of laboratory results AbnormalBON SECOURS MERCY HEALTHKetones (U) [Mass/Vol]NegativeNEGATIVEBON [facility] HEALTHLeukocyte esterase Auto test strip Ql (U)2+AbnormalNEGATIVE B[facility] HEALTHNitrite Auto test strip Ql (U)NegativeNEGATIVEBON ESTELLE DOHENY EYE HOSPITALY HEALTHProtein (U) [Mass/Vol]6.0 mg/dL5.0 - 8.0BON [facility] HOSPITALProtein (U) [Mass/Vol]1+AbnormalNEGATIVEBON SECOURS [facility] HOSPITALSpecific [place], UA1.0251.005 - 1.030BON [facility] HOSPITALTurbidity UAClearClearBON SECMERCY HEALTH URBANA HOSPITALUrinalysis CommentsBON SECMERCY HEALTH URBANA HOSPITALUrine HgbNegative NEGATIVEBON SECMERCY HEALTH URBANA HOSPITALUrobilinogen, UrineNormalNormalBON SEC[facility] HEALTHBON SECMERCY HEALTH URBANA HOSPITALUrinalysis, Routineon 87-31-2964Guspnwngn, SemiQt,UrNegativeNormalNEGMerSeaview HospitalComment on above:Performed By: #### UA, UMICAO #### [facility] [address] [place] [address] Radio Equipment Installer: Mercedes Vides, UrineNegativermCleveland Clinic Mentor HospitalComment on above:Performed By: #### UA, UMICAO #### [facility] [address] [place], [place] [phone] Radio Equipment Installer: Jorge Videsty ()ClearRipley County Memorial HospitalalCRegency Hospital Company Comment on above:Performed By: #### UA, UMICAO #### [facility] [address] [place] [address] Radio Equipment Installer: GERALD Videsolor (U)YellowCommunity Regional Medical Center Comment on above:Performed By: #### UA, UMICAO #### [facility] [address] [place] [address] Radio Equipment Installer: GERALD VidesommentLouis Stokes Cleveland VA Medical CenterComment on above:Performed By: #### UA, UMICAO #### [facility] [address] [place] [address] Radio Equipment Installer: Chad Vides Ql (U)NegativeNormalNEGMercy Spencer HospitalComment on above:Performed By: #### UA, UMICAO #### [facility] [place] [facility] [address] [place] [address] Radio Equipment Installer: Mine Roblero MDKetones Ql (U)NegativeNormalNEGSelect Medical Cleveland Clinic Rehabilitation Hospital, Edwin ShawComment on above:Performed By: #### UA, UMICAO #### [facility] [place] [facility] [address] [place] [address] Radio Equipment Installer: Mine Roblero MDLeukocyte esterase Test strip Ql (U)2+AbnormalNEG [facility] Hospital, Edwin ShawComment on above:Performed By: #### UA, UMICAO #### [facility] [address] [place] [address] Radio Equipment Installer: Marina Videstrite,UrNegativeNormalKnox Community Hospital Comment on above:Performed By: #### NEHAL, UMICAO #### [facility] [address] [place] [address] Radio Equipment Installer: SURINDER Vides,Ur6.5Vfriqi6.0-8.0[facility] Hospital, Edwin ShawComment on above:Performed By: #### UA, UMICAO #### [facility] [address] [place] [address] Radio Equipment Installer: Elsa Vides Ql (U)1+AbnormalNEGSelect Medical Cleveland Clinic Rehabilitation Hospital, Edwin Shaw Comment on above:Performed By: #### UA, UMICAO #### [facility] [address] [place] [address] Radio Equipment Installer: AKILAH Videspec. [place],Ur1.192Tzlxot1.005-1.030[facility] Hospital, Edwin ShawComment on above:Performed By: #### UA, UMICAO #### [facility] [address] [place] [address] Radio Equipment Installer: Duncan Videsbilinogen,UrNormalNormalNORMSelect Medical Cleveland Clinic Rehabilitation Hospital, Edwin ShawComment on above:Performed By: #### UA, UMICAO #### [facility] [address] [place] [address] Radio Equipment Installer: Mine Roblero MDUrinalysis,Microon 04-11-2022-----NormalSelect Medical Cleveland Clinic Rehabilitation Hospital, Edwin ShawComment on above:Performed By: #### UA, UMICAO #### [facility] [address] [place] [address] Radio Equipment Installer: Mine Roblero MDBacteria2+AbnormalNONEMeUniversity Hospitals Health System Comment on above:Performed By: #### UA, UMICAO #### [facility] [address] [place] [address] Radio Equipment Installer: Mine Roblero MDEpithelial cells LM Ql (Urine sed)10 TO 20Normal [facility], Edwin ShawComment on above:Performed By: #### UA, UMICAO #### [facility] [address] [place], [place] [address] Radio Equipment Installer: Jose Vides RBC's[address] [place] [address] Comment on above:Performed By: #### UA, UMICAO #### [facility] [address] [place] [address] Radio Equipment Installer: Jose Vides WBC's[address] [place] [address] Comment on above:Performed By: #### UA, UMICAO #### [facility] [address] [place], [place] [phone] Radio Equipment Installer: ANSHUL Vides Chest w/o Contraston [id number] Chest w/o ContrastEXAMINATION: CTA chest screening CLINICAL [...] and signed by NETTA PITT on 01/02/2022 1529[facility] Medical SpecialistXR FINGER MIN 2 VIEWSon [id number] FINGER MIN 2 VIEWS Exam: XR FINGER [...] Electronically authenticated by: DIANA HATCH Date: 2021-12-26 02:10[facility] CenterHAND RIGHT 3 VWSon [id number] RIGHT 3 VWSUniParkview Health Montpelier Hospital Department of Radiology [address] [place] [phone] Patient Name: TASNEEM CAMARILLO : 1975 Sex: F Age: Race: White Pt. Location: 84 Patient Status: O Ordered Date: 11/08/2021 10:05:00 AM Completed Date: 11/08/2021 10:06 AM Requesting Provider: ALIRIO BEAR Attending Provider: ALIRIO BEAR Report Copy To: Signs & Symptoms: M79.641 Pain in right hand I10 History: [place] Comments: focus on small finger please Exam: [...] report. Electronically signed: Rad Cano. Transcribed by: [email or web address], User Resident: SINDY LEBLANC Electronically Signed by: RAD Arcelia CANO @ 11/08/2021 11:46 AM I personally read this/these film(s) with this residentSelect Medical Cleveland Clinic Rehabilitation Hospital, AvonComment on above:Order Comment: focus on small finger pleaseHAND RIGHT 3 VWSon [id number] RIGHT 3 SUniParkview Health Montpelier Hospital Department of Radiology [address] [place] [phone] Patient Name: TASNEEM CAMARILLO : 1975 Sex: F Age: Race: White Pt. Location: Patient Status: Ordered Date: 11/02/2021 2:45:00 PM Completed Date: 11/02/2021 03:09 PM Requesting Provider: ALIRIO BEAR Attending Provider: Report Copy To: Signs & Symptoms: M79.641 Pain in right hand I10 History: [place] Comments: , , , Ordering Provider - [...] report. Electronically signed: Alex Arizmendi. Transcribed by: [email or web address], User Resident: SINDY LEBLANC Electronically Signed by: ALEX ARIZMENDI @ 11/06/2021 03:10 PM I personally read this/these film(s) with this residentSelect Medical Cleveland Clinic Rehabilitation Hospital, AvonComment on above:Order Comment: , , , Ordering Provider - ALIRIO BEAR MD , CT Chest w/o Contraston [id number] Chest w/o ContrastHISTORY: Pulmonary nodule COMPARISON: CT [...] signed by Eloisa Brown on 10/04/2021 1219NormalNorthern [facility]bilt[facility] SpecialistAMYLASEon 60-88-9293Nunmihl [Catalytic activity/Vol]62 U/HRqgzua68-270Hvn [facility] Medical Centerment on above:Performed By: #### LIPA, CMP, ANGELINE #### [facility] [address] [place], [place] [address] Dr. Yadiel AcostaCBC AUTO DIFFon [id number] #0.1 103/ulNormal0.0-0.1The [facility] on above:Performed By: #### CBC ####[facility] [address] [address]Dr.Yadiel AcostaBasophils/100 WBC (Bld)1.1 %Normal0.2-2.0The [facility] on above:Performed By: #### CBC ####[facility] [address] [address]Dr.Yadiel ChangEO #0.1 103/ulNormal0.0-0.7The [facility] on above:Performed By: #### CBC ####[facility] [address] [address]Dr.Yadiel Camargoosinophils/100 WBC (Bld)2.3 %Normal 0.9-7.0The [facility] Medical Centerment on above:Performed By: #### CBC ####[facility] [address] [address]Dr.Yadiel Acosta Erythrocyte distribution width (RBC) [Ratio]13.2 %Vrwkaf82.0-15.0The [facility] Medical Centerment on above:Performed By: #### CBC ####[facility] [address] [address]Dr.Yadiel AcostaHematocrit (Bld) [Volume fraction]39.1 %Tjarmu49.0-48.0The [facility] HospitalComment on above:Performed By: #### CBC ####[facility] [address] [place], [place] [address]Dr.Yadiel AcostaHemoglobin (Bld) [Mass/Vol]12.5 g/dL Kaiptu90.0-16.0The [facility] HospitalComment on above:Performed By: #### CBC ####[facility] Ctorevkwpt[address] [place], [place] [address]Dr. Yadiel ChangIG #0.02 10e3/ulNormal0.00-0.03The Newark HospitalComment on above: Performed By: #### CBC ####[facility] [address] [place], [place] [address]Dr.Yadiel DaveIG %0.4 %Normal0.0-0.5The [facility] HospitalComment on above:Performed By: #### CBC ####[facility] Coepfmbsyt[address] [place], [place] [address]Dr.Yadiel ChangLYMPH #2.5 103/ulNormal1.2-3.8The [facility] HospitalComment on above:Performed By: #### CBC ####[facility] Urtqecyylj[address] [place], [place] [address]Dr. Yadiel AcostaLymphocytes/100 WBC (Bld)44.5 %Espghl80.5-60.0The [facility] Comment on above:Performed By: #### CBC ####[facility] Mkmbg[address]ro[address] [place], [place] [address]Dr.Yadiel AcostaMANUAL DIFF REQNONormalThe Newark HospitalComment on above:Performed By: #### CBC ####[facility] Ikjjjegaba[address] [place], [place] [address]Dr.Yadiel AcostaH (RBC) [Entitic mass]29.6 vbLvkknt51.7-34.0The [facility] HospitalComment on above: Performed By: #### CBC ####[facility] T[address] [place], [place] [address]Dr.Yadiel AcostaROCKLAND PSYCH[facility] (RBC) [Mass/Vol]32.0 g/dLNormal 29.9-35.2The [facility] HospitalComment on above:Performed By: #### CBC ####[facility] [address]nf[address] [place], [place] [address]Dr. Yadiel AcostaMCV (RBC) [Entitic vol]92.4 iZEmwtyr31.0-99.0The [facility] Comment on above:Performed By: #### CBC ####[facility] [address]jns[address]qiw[address] [place], [place] [address]Dr.Yadiel AcostaMONO #0.4 103/ulNormal0.3-0.8 The [facility] HospitalComment on above:Performed By: #### CBC ####[facility] [address]ct[address] [place], [place] [address]DrElena Acosta Monocytes/100 WBC (Bld)6.4 %Normal1.7-12.0The [facility] HospitalComment on above: Performed By: #### CBC ####[facility] Luxwcybkzr[address] [place], [place] [address]Dr.Yadiel AcostaNEUT #2.6 103/ulNormal1.4-6.5The [facility] HospitalComment on above:Performed By: #### CBC ####[facility] [address]vrtr[address]sk[address] [place], [place] [address]Dr.Yadiel AcostaNeutrophils/100 WBC (Bld)45.3 %Royurt41.0-75.0The [facility] HospitalComment on above:Performed By: #### CBC ####[facility] Krairsqrvs[address] [place], [place] [address]Dr.Yadiel AcostaPlatelet mean volume (Bld) [Entitic vol]9.5 fLNormal9.5-13.5 The [facility] HospitalComment on above:Performed By: #### CBC ####[facility] [address]ijjwqloz[address] [place], [place] [address]Dr.Yadiel AcostaPLT293 103/ycVfynqo849-277Qmu [facility] HospitalComment on above:Performed By: #### CBC ####[facility] Lxjjoqiobe[address] [place], [place] [address]Dr. Yadiel AcostaRBC4.23 106/ulNormal4.20-5.40The [facility] HospitalComment on above: Performed By: #### CBC ####[facility] [address] [place], [place] [address]MzElena ChangWBC5.6 103/ulNormal4.0-11.0The [facility] HospitalComment on above:Performed By: #### CBC ####[facility] [address] [place], [place] [address]VdElena ChangCT ABD/PELV W CONon [id number] ABD/PELV W CONEXAMINATION: CT ABD/PELV W CON, [...] Electronically authenticated by: MINE STAHL Date: 2021-09-18 07:11[facility] Medical CenterLIPASEon [id number] [Catalytic activity/Vol]141.0 U/L Hlsmoi59.0-393.0The [facility] HospitalComment on above:Performed By: #### LIPA, CMP, ANGELINE #### [facility] [address] [place] [address] Dr. Yadiel Norwood 14(COMP METB)on 54-12-2890Olaacma [Mass/Vol]3.6 g/dLNormal 3.4-5.0The [facility] HospitalComment on above:Performed By: #### LIPA, CMP, ANGELINE #### [facility] [address] [place] [address] Dr. Yadiel AcostaAlbumin/Globulin [Mass ratio]1.1 {ratio}NormalThe Newark HospitalComment on above:Performed By: #### LIPA, CMP, ANGELINE #### [facility] [address] [place] [address] Dr. Yadiel Thomson [Catalytic activity/Vol]89 U/DZijvta15-715Ovm [facility] HospitalComment on above:Performed By: #### LIPA, CMP, ANGELINE #### [facility] [address] [place] [address] Dr. Yadiel Giron [Catalytic activity/Vol]22 U/LExphin83-16Osr [facility] HospitalComment on above:Performed By: #### LIPA, CMP, ANGELINE #### [facility] [address] [place] [address] Dr. Yadiel Morse gap [Moles/Vol]10.2 mmol/LNormalThe [facility] Comment on above:Performed By: #### LIPA, CMP, ANGELINE #### [facility] [address] [place] [address] Dr. Yadiel Khan [Catalytic activity/Vol]18 U/APatuur50-37Yil [facility] HospitalComment on above:Performed By: #### LIPA, CMP, ANGELINE #### [facility] [address] [place] [address] Dr. Yadiel AcostaBilirubin [Mass/Vol]0.9 mg/dLNormal0.2-1.0The [facility] Comment on above:Performed By: #### LIPA, CMP, ANGELINE #### [facility] [address] [address] [address] Yadiel AcostaCalcium [Mass/Vol]8.6 mg/dLNormal8.5-10.1The [facility] Comment on above:Performed By: #### LIPA, CMP, ANGELINE #### [facility] [address] [place] [address] Dr. Yadiel AcostaChloride [Moles/Vol]106 mmol/WTcighg90-438Bzf [facility] Comment on above:Performed By: #### LIPA, CMP, ANGELINE #### [facility] [address] [place] [address] Dr. Yadiel AcostaCO2 [Moles/Vol]27.4 mmol/SIulbxh03.0-32.0The [facility] Comment on above:Performed By: #### LIPA, CMP, ANGELINE #### [facility] [address] [place] [address] Dr. Yadiel AcostaCreatinine [Mass/Vol]1.04 mg/dLCritically high0.55-1.02[facility] HospitalComment on above:Performed By: #### LIPA, CMP, ANGELINE #### [facility] [address] [place] [address] Dr. Yadiel CamargoGFR-AF SYRIAN>60Normal>=60The [facility] HospitalComment on above:Performed By: #### LIPA, CMP, ANGELINE #### [facility] [address] [place] [address] Dr. Yadiel CamargoGFR-NON AF YJWHWOLE86 mL/min/1.74w7Cqfekubaod low>=60The [facility] HospitalComment on above:Performed By: #### LIPA, CMP, ANGELINE #### [facility] [address] [place] [address] Dr. Yadiel AcostaGlobulin (S) [Mass/Vol]3.4 g/dLNormalThe [facility] HospitalComment on above:Performed By: #### LIPA, CMP, ANGELINE #### [facility] [address] [place] [address] Dr. Yilan ChangGlucose [Mass/Vol]100 mg/eULwubtm71-266Yzi [facility] Comment on above:Performed By: #### LIPWard CMP, ANGELINE #### [facility] [address] [address] [address] Yadiel AcostaPotassium [Moles/Vol]3.6 mmol/LNormal3.5-5.1The [facility] Comment on above:Performed By: #### LIPWard CMP, ANGELINE #### [facility] [address] [address] [address] Yadiel AcostaProtein [Mass/Vol]7.0 g/dLNormal6.4-8.2The [facility] Comment on above:Performed By: #### LIPWard CMP, ANGELINE #### [facility] [address] [place] [address] Dr. Yadiel AcostaSodium [Moles/Vol]140 mmol/NDzlyby907-698Fab [facility] Comment on above:Performed By: #### LIPWard CMP, ANGELINE #### [facility] [address] [place] [address] Dr. Yadiel AcostaUrea nitrogen [Mass/Vol]15.0 mg/dLNormal7.0-18.0The [facility] HospitalComment on above:Performed By: #### LIPWard CMP, ANGELINE #### [facility] [address] [place] [address] Dr. Yadiel AcostaUrea nitrogen/Creatinine [Mass ratio]14.4 mg/mgNormalThe [facility] HospitalComment on above:Performed By: #### LIPA, CMP, ANGELINE #### [facility] [address] [place] [address] Dr. Yadiel Hairston AUTO DIFFon [id number] #0.1 103/ulNormal0.0-0.1The [facility] HospitalComment on above:Performed By: #### CBC ####[facility] [address] [address]Dr.Yilan AcostaBasophils/100 WBC (Bld)0.7 %Normal0.2-2.0The [facility] HospitalComment on above:Performed By: #### CBC ####[facility] [address]zz[address]ju[address] [place], [place] [address]Dr.Yilan ChangEO #0.2 103/ulNormal0.0-0.7The [facility] HospitalComment on above:Performed By: #### CBC ####[facility] V[address]vnplwq[address] [place], [place] [address]Dr.Rosettecharlee ChangEosinophils/100 WBC (Bld)2.3 %Normal 0.9-7.0The [facility] HospitalComment on above:Performed By: #### CBC ####[facility] Sz[address]fsguet[address] [place], [place] [address]Dr.Yadiel Acosta Erythrocyte distribution width (RBC) [Ratio]13.6 %Mewcci88.0-15.0The [facility] HospitalComment on above:Performed By: #### CBC ####[facility] [address]ae[address] [place], [place] [address]Dr.Yadiel ChangHematocrit (Bld) [Volume fraction]35.0 %Critically low36.0-48.0The [facility] HospitalComment on above:Performed By: #### CBC ####[facility] Ajyayirkrg[address] [place], [place] [address]Dr.Yadiel ChangHemoglobin (Bld) [Mass/Vol]11.2 g/dL Critically low12.0-16.0The [facility] HospitalComment on above:Performed By: #### CBC ####[facility] Heoeiinqzb[address] [place], [place] [address]Dr. Yadiel ChangIG #0.02 10e3/ulNormal0.00-0.03The [facility] HospitalComment on above: Performed By: #### CBC ####[facility] [address]stsjmb[address] [place], [place] [address]Dr.Yadiel ChangIG %0.3 %Normal0.0-0.5The [facility] HospitalComment on above:Performed By: #### CBC ####[facility] Plicsmgfxi816191 [address] [place], [place] [address]Dr.Yadiel ChangLYMPH #2.5 103/ulNormal1.2-3.8The Newark HospitalComment on above:Performed By: #### CBC ####[facility] Asmxbiznoi[address] [place], [place] [address]Dr. Yadiel AcostaLymphocytes/100 WBC (Bld)34.4 %Wnqobg94.5-60.0[facility] Comment on above:Performed By: #### CBC ####[facility] Pxtsoiliks[address] [place], [place] [address]Dr.Yadiel AcostaMANUAL DIFF REQNONormalThe Newark HospitalComment on above:Performed By: #### CBC ####[facility] Zwhnqekjko[address] [place], [place] [address]Dr.Yadiel AcostaH (RBC) [Entitic mass]30.0 nrYcwavj21.7-34.0The [facility] HospitalComment on above: Performed By: #### CBC ####[facility] Wiwesiqnvc[address] [place], [place] [address]Dr.Yadiel AcostaMCHC (RBC) [Mass/Vol]32.0 g/dLNormal 29.9-35.2The [facility] HospitalComment on above:Performed By: #### CBC ####[facility] Bdbkngwbnq[address] [place], [place] [address]Dr. Yadiel DaveV (RBC) [Entitic vol]93.8 hFLwgnpk07.0-99.0[facility] Comment on above:Performed By: #### CBC ####[facility] Mwwjhxctxj[address] [place], [place] [address]Dr.Rosettecharlee AcostaMONO #0.6 103/ulNormal0.3-0.8 The [facility] HospitalComment on above:Performed By: #### CBC ####[facility] Pmvscgqmza[address] [place], [place] [address]Dr.Rosettecharlee Acosta Monocytes/100 WBC (Bld)8.5 %Normal1.7-12.0The [facility] HospitalComment on above: Performed By: #### CBC ####[facility] Lbypztalip[address] [place], [place] [address]Dr.Yadiel AcostaNEUT #3.9 103/ulNormal1.4-6.5The [facility] HospitalComment on above:Performed By: #### CBC ####[facility] [address] [place] [address]Dr.Yadiel AcostaNeutrophils/100 WBC (Bld)53.8 %Tfbqlt21.0-75.0The [facility] HospitalComment on above:Performed By: #### CBC ####[facility] [address] [place] [address]Dr.Yadiel AcostaPlatelet mean volume (Bld) [Entitic vol]9.6 fLNormal9.5-13.5 The [facility] HospitalComment on above:Performed By: #### CBC ####[facility] Tgwnstkasf[address] [place], [place] [address]Dr.Yadiel KdskpGCF019 103/ugNkkobe252-194Gav Newark HospitalComment on above:Performed By: #### CBC ####[facility] [address] [address]Dr. Yadiel ChangRBC3.73 106/ulCritically low4.20-5.40The [facility] HospitalComment on above:Performed By: #### CBC ####[facility] Onoxkmuehh[address] [place], [place] [address]Dr.Yadiel AcostaWBC7.3 103/ulNormal4.0-11.0The [facility] HospitalComment on above:Performed By: #### CBC ####[facility] Bsrttkeirg[address] [place], [place] [address]Dr.Yadiel ChangCT ABD/PELVIS WO CONon 07-17-2060LO ABD/PELVIS WO CONCT SCAN OF THE ABDOMEN [...] Electronically authenticated by: Juancarlos YUSUF Date: 2021-09-01 16:51[facility] URINE PROFILEon [id number] Ql (U)NegativeNormal NEGATIVECommunity Memorial HospitalComment on above:Performed By: #### LALY BRASWELL #### [facility] [address] [place] [address] Dr. Yadiel Reeves (U)CLEARNormalCLEARCommunity Memorial HospitalComment on above: Performed By: #### LALY BRASWELL #### [facility] [address] [place] [address] Dr. Yadiel Ventura (U)LT. YELLOWNormalYELLOWThe Newark HospitalComment on above:Performed By: #### LALY BRASWELL #### [facility] [address] [place] [address] Dr. Yadiel Chpaman micrscopic examination will be performed if indicated. NormalThe [facility]ford HospitalComment on above:Performed By: #### ROCIO BRASWELLRO #### [facility] [address] [place] [address] Dr. Yadiel AcostaGlucose Ql (U)NegativeNormalNEGATIVEOhio Valley Surgical Hospital HospitalComment on above:Performed By: #### ROCIO BRASWELLRO #### [facility] [address] [place] [address] Dr. Yadiel AcostaHemoglobin Ql (U)TRACE-INTACTAbnormalNEGATIVECommunity Memorial HospitalComment on above:Performed By: #### ROCIO BRASWELLRO #### [facility] [address] [place] [address] Dr. Yadiel AcostaKetones Ql (U)NegativeNormalNEGATIVECommunity Memorial HospitalComment on above:Performed By: #### ROCIO BRASWELLRO #### [facility] [address] [place] [address] Dr. Yadiel AcostaLEUKOCYTESNegativeNormalNEGATIVECommunity Memorial HospitalComment on above:Performed By: #### ROCIO BRASWELLRO #### [facility] [address] [place] [address] Dr. Yadiel AcostaNitrite Ql (U)NegativeNormalNEGATIVECommunity Memorial HospitalComment on above:Performed By: #### ROCIO BRASWELLRO #### [facility] [address] [place] [address] Dr. Yadiel AcostapH (U)7.0 [pH]Normal5-9Community Memorial HospitalComment on above: Performed By: #### ROCIO BRASWELLRO #### [facility] [address] [place] [address] Dr. Yadiel AcostaSPEC GRAVITY1.919Uuadys1.005-<=1.025The [facility] HospitalComment on above:Performed By: #### MAYELA BRASWELLICRO #### [facility] [address] [place] [address] Dr. Yadiel AcostaUA PROTEINNegativeNormalNEGATIVE/ TRACEThe [facility] Comment on above:Performed By: #### LALY BRASWELL #### [facility] [address] [place] [address] Dr. Yadiel BEAR INDINDICATEDNormalThe Newark HospitalComment on above: Performed By: #### LALY BRASWELL #### [facility] [address] [place] [address] Dr. Yadiel Trejobilino Qn (U)0.2 {Stan'U}/dLNormal0.2 - 1.0The [facility] HospitalComment on above:Performed By: #### LALY BRASWELL #### [facility] [address] [place] [address] Dr. Yadiel Norwood 14(COMP METB)on 36-63-5992Ldguflr [Mass/Vol]3.7 g/dLNormal 3.4-5.0The [facility] HospitalComment on above:Performed By: #### CMP #### [facility] [address] [place] [address] Dr. Yadiel AcostaAlbumin/Globulin [Mass ratio]1.1 {ratio}NormalThe Newark HospitalComment on above:Performed By: #### CMP #### [facility] [address] [place] [address] Dr. Yadiel Thomson [Catalytic activity/Vol]77 U/KGkjuzv68-811Fnf Newark HospitalComment on above:Performed By: #### CMP #### [facility] [address] [place] [address] Dr. Yadiel Giron [Catalytic activity/Vol]25 U/NUrebbj74-28Wqi [facility] HospitalComment on above:Performed By: #### CMP #### [facility] [address] [place] [address] Dr. Yadiel Morse gap [Moles/Vol]9.8 mmol/LNormalThe Newark HospitalComment on above:Performed By: #### CMP #### [facility] [address] [place] [address] Dr. Yadiel AcostaAST [Catalytic activity/Vol]21 U/DRjabnl73-16Xfi [facility] HospitalComment on above:Performed By: #### CMP #### [facility] [address] [place] [address] Dr. Yadiel AcostaBilirubin [Mass/Vol]1.0 mg/dLNormal0.2-1.0[facility] Comment on above:Performed By: #### CMP #### [facility] [address] [place] [address] Dr. Yadiel AcostaCalcium [Mass/Vol]8.2 mg/dLCritically low8.5-10.1The [facility] HospitalComment on above:Performed By: #### CMP #### [facility] [address] [place] [address] Dr. Yadiel AcostaChloride [Moles/Vol]107 mmol/LGyoetd23-494Jed [facility] Comment on above:Performed By: #### CMP #### [facility] [address] [place] [address] Dr. Yadiel AcostaCO2 [Moles/Vol]27.3 mmol/QUuafag55.0-32.0[facility] Comment on above:Performed By: #### CMP #### [facility] [address] [place] [address] Dr. Yadiel AcostaCreatinine [Mass/Vol]0.98 mg/dLNormal0.55-1.02The [facility] HospitalComment on above:Performed By: #### CMP #### [facility] [address] [place] [address] Dr. Yadiel CamargoGFR-AF SYRIAN>60Normal>=60The [facility] HospitalComment on above:Performed By: #### CMP #### [facility] [address] [place] [address] Dr. Yadiel CamargoGFR-NON AF SYRIAN>60Normal>=60The [facility] HospitalComment on above:Performed By: #### CMP #### [facility] [address] [place] [address] Dr. Yadiel AcostaGlobulin (S) [Mass/Vol]3.3 g/dLNormSt. John of God HospitalComment on above:Performed By: #### CMP #### [facility] [address] [address] [address] Yadiel AcostaGlucose [Mass/Vol]88 mg/iAStrpxr42-029YmfCommunity Memorial Hospital Comment on above:Performed By: #### CMP #### [facility] [address] [address] [address] Yadiel AcostaPotassium [Moles/Vol]4.1 mmol/LNormal3.5-5.1[facility] Comment on above:Performed By: #### CMP #### [facility] [address] [address] [address] Yadiel AcostaProtein [Mass/Vol]7.0 g/dLNormal6.4-8.2[facility] Comment on above:Performed By: #### CMP #### [facility] [address] [place] [address] Dr. Yadiel Tovardium [Moles/Vol]140 mmol/EBibicu997-367TapCommunity Memorial Hospital Comment on above:Performed By: #### CMP #### [facility] [address] [place] [address] Dr. Yadiel Kemp nitrogen [Mass/Vol]22.0 mg/dLCritically high7.0-18.0Community Memorial HospitalComment on above:Performed By: #### CMP #### [facility] [address] [place] [address] Dr. Yadiel Kemp nitrogen/Creatinine [Mass ratio]22.4 mg/mgNoAdams County Regional Medical CenterComment on above:Performed By: #### CMP #### [facility] [address] [address] [address] Yadiel Poon MICROSCOPIC ONLYon [id number] SEENNormalNONE SEENCommunity Memorial HospitalComment on above:Performed By: #### ERUMAYELA SamanoICRO #### [facility] [address] [address] [address] Yilan ChangBacteria identified Cx Nom (U)NOT INDICATEDNormalThSelect Medical Specialty Hospital - ColumbusComment on above:Performed By: #### ERUR, UMICRO #### [facility] [address] [place] [address] Dr. Yadiel Camara SEENNormalNONE SEENSycamore Medical Center on above:Performed By: #### FRENCH, UMICRO #### [facility] [address] [place] [address] Dr. Yadiel Arguelles LM Nom (Urine sed)NONE SEENNormalNONE SEENCommunity Memorial HospitalComkresge eye institute on above:Performed By: #### FRENCH UMICRO #### [facility] [address] [place] [address] Dr. Yadiel Tovarthelial cells LM Ql (Urine sed)RARENormalNONE SEEN /RAREThe [facility] HospitalComkresge eye institute on above:Performed By: #### FRENCH UMICRO #### [facility] [address] [place] [address] Dr. Yadiel Emerson SEENNormalNONE SEENCommunity Memorial HospitalComkresge eye institute on above:Performed By: #### FRENCH UMICRO #### [facility] [address] [place] [address] Dr. Yadiel MartinezJzcuuHNX6-3Sfhzig1-6McwSycamore Medical Center on above:Performed By: #### FRENCH UMICRO #### [facility] [address] [place] [address] Dr. Yadiel Roe SEENNormalNONE SEENCommunity Memorial HospitalComkresge eye institute on above: Performed By: #### ERUSelwyn, UMICRO #### [facility] [address] [place] [address] Dr. Yadiel AcostaC-Reactive Proteinon 99-50-8920PVH IV<0.3NormalNorthern Saint Mary'S HospitalComment on above:Performed By: #### CBCAD, ESR, CRP, CMP #### [facility] [address] [place], [place] [id number] Blood Count with Auto Diffon 48-12-9715Scwgnrqtx (Bld) [#/Vol]0.04 10*3/uLNormal0.00-0.20[facility] SpecialistComment on above:Performed By: #### CBCAD, ESR, CRP, CMP #### [facility] [address], [place] [id number]/100 WBC (Bld)0.7 %[facility] SpecialistComment on above:Performed By: #### CBCAD, ESR, CRP, CMP #### [facility] [address], [place] [id number] (Bld) [#/Vol]0.13 10*3/uLNormal0.02-0.50[facility] Regional Medical CenterComment on above:Performed By: #### CBCAD, ESR, CRP, CMP #### [facility] [address], [place] [id number]/100 WBC (Bld)2.2 %[facility] BlancaNoMer[facility] SpecialistComment on above:Performed By: #### CBCAD, ESR, CRP, CMP #### [facility] [address], [place] [id number] distribution width (RBC) [Ratio]13.1 %Normal 11.0-15.0[facility] SpecialistComment on above:Performed By: #### CBCAD, ESR, CRP, CMP #### [facility] [address], [place] [id number] (Bld) [Volume fraction]39.5 %Jerudz27.0-47.0 [facility] SpecialistComment on above:Performed By: #### CBCAD, ESR, CRP, CMP #### [facility] [address], [place] [id number] (Bld) [Mass/Vol]12.8 g/tVBoprdy74.6-15.5[facility] SpecialistComment on above:Performed By: #### CBCAD, ESR, CRP, CMP #### [facility] [address], [place] [id number] (Bld) [#/Vol]1.6 10*3/uLNormal0.9-3.9NoMercy Health St. Charles Hospital SpecialistComment on above:Performed By: #### CBCAD, ESR, CRP, CMP #### [facility] [address], [place] [id number]/100 WBC (Bld)27.4 %NormalNoMercy Health St. [facility] Hospital SpecialistComment on above:Performed By: #### CBCAD, ESR, CRP, CMP #### [facility] [address], [place] [id number] (RBC) [Entitic mass]29.8 faAepuhg62.0-33.0NoMercy Health St. [facility] SpecialistComment on above:Performed By: #### CBCAD, ESR, CRP, CMP #### [facility] [address], [place] [id number] (RBC) [Mass/Vol]32.4 g/aTXzldnv07.0-36.0NoMercy Health [facility] SpecialistComment on above:Performed By: #### CBCAD, ESR, CRP, CMP #### [facility] [address], [place] [id number] (RBC) [Entitic vol]92 tRGfhimi18-667Xfdyweia [facility] SpecialistComment on above:Performed By: #### CBCAD, ESR, CRP, CMP #### [facility] [address], [place] [id number] (Bld) [#/Vol]0.5 10*3/uLNormal0.2-0.9NoMercy Health St. [facility] SpecialistComment on above:Performed By: #### CBCAD, ESR, CRP, CMP #### [facility] [address], [place] [id number]/100 WBC (Bld)8.1 %NormalNoMercy Health St. Charles Hospital SpecialistComment on above:Performed By: #### CBCAD, ESR, CRP, CMP #### [facility] [address], [place] [id number] (Bld) [#/Vol]3.6 10*3/uLNormal1.5-7.8NortWay[facility] SpecialistComment on above:Performed By: #### CBCAD, ESR, CRP, CMP #### [facility] [address], [place] [id number]/100 WBC (Bld)61.4 %NormalNortWayne HealthCare Main Campus SpecialistComment on above:Performed By: #### CBCAD, ESR, CRP, CMP #### [facility] [address], [place] [id number] mean volume (Bld) [Entitic vol]10.40 fLNormal 7.50-12.50NortWayne [facility] SpecialistComment on above:Performed By: #### CBCAD, ESR, CRP, CMP #### [facility] [address], [place] [id number] (Bld) [#/Vol]274 10*3/kLDlqcoe480-502Rxcjhara [facility] SpecialistComment on above:Performed By: #### CBCAD, ESR, CRP, CMP #### [facility] [address], [place] [id number] (Bld) [#/Vol]4.30 10*6/uLNormal3.90-5.20[facility]Way[facility] SpecialistComment on above:Performed By: #### CBCAD, ESR, CRP, CMP #### [facility] [address], [place] [id number]-LK16.2 hCSuphym45.0-50.0NortWayne HealthCare Main CampusCity Clerk Comment on above:Performed By: #### CBCAD, ESR, CRP, CMP #### [facility] [address], [place] [id number] (Bld) [#/Vol]5.9 10*3/uLNormal3.8-11.0[facility]Way[facility] SpecialistComment on above:Performed By: #### CBCAD, ESR, CRP, CMP #### [facility] [address], [place] [id number] Metabolic Panelon [id number] [Mass/Vol] 4.4 g/dLNormal3.6-5.1NortherKettering Health Springfield SpecialistComment on above:Performed By: #### CBCAD, ESR, CRP, CMP #### [facility] [address], [place] [id number]/Globulin [Mass ratio]1.8 {ratio}Normal1.0-2.5NoMercy Health St. [facility] SpecialistComment on above:Performed By: #### CBCAD, ESR, CRP, CMP #### [facility] [address], [place] [id number] [Catalytic activity/Vol]77 U/VWsvvin68-585EnwdpkdgTriHealth Bethesda Butler HospitalComment on above:Performed By: #### CBCAD, ESR, CRP, CMP #### [facility] [address], [place] [id number] [Catalytic activity/Vol]15 U/LNormal6-33NoMercy Health St. [facility] Hospital SpecialistComment on above:Result Comment: 02/07/2021 Female reference range changed.Performed By: #### CBCAD, ESR, CRP, CMP #### [facility] [address], [place] [id number] gap [Moles/Vol]16 mmol/HHxldqo59-65Yykoojcu [facility] SpecialistComment on above:Result Comment: Effective 03/15/2019 reference range changed.Performed By: #### CBCAD, ESR, CRP, CMP #### [facility] [address], [place] [id number] [Catalytic activity/Vol]21 U/LNormal9-34NoMercy Health St. [facility] SpecialistComment on above:Performed By: #### CBCAD, ESR, CRP, CMP #### [facility] [address], [place] [id number] [Mass/Vol]0.48 mg/dLNormal0.30-1.20NoMercy Health St. [facility] SpecialistComment on above:Performed By: #### CBCAD, ESR, CRP, CMP #### [facility] [address], [place] [id number]/CREA16 RatioNormal6-22NortUC Health City Clerk Comment on above:Performed By: #### CBCAD, ESR, CRP, CMP #### [facility] [address], [place] [id number] [Mass/Vol]9.3 mg/dLNormal8.6-10.2[facility] SpecialistComment on above:Performed By: #### CBCAD, ESR, CRP, CMP #### [facility] [address], [place] [id number] [Moles/Vol]103 mmol/INcfuba20-706Lqovuoel [facility] SpecialistComment on above:Performed By: #### CBCAD, ESR, CRP, CMP #### [facility] [address], [place] [id number] [Moles/Vol]27 mmol/QYuxtoj98-44Uijetiar [facility] SpecialistComment on above:Performed By: #### CBCAD, ESR, CRP, CMP #### [facility] [address], [place] [id number] [Mass/Vol]1.2 mg/dLNormal0.6-1.4Nortwinslow indian healthcare centern [place] [facility] SpecialistComment on above:Performed By: #### CBCAD, ESR, CRP, CMP #### [facility] [address], [place] [id number] mL/min/1.34l0Bxt>60NortUC Health City Clerk Comment on above:Performed By: #### CBCAD, ESR, CRP, CMP #### [facility] [address], [place] [id number] mL/min/1.99c2Koz>60NortUC Health City Clerk Comment on above:Performed By: #### CBCAD, ESR, CRP, CMP #### [facility] [address], [place] [id number] (S) [Mass/Vol]2.4 g/dLNormal1.9-3.7Nortwinslow indian healthcare centern [place] [facility] SpecialistComment on above:Performed By: #### CBCAD, ESR, CRP, CMP #### [facility] [address], [place] [id number] [Mass/Vol]112 mg/hKZfxs19-37Gpbydhnq [place] [facility] SpecialistComment on above:Result Comment: For FASTING Glucose --- ADA reference ranges: Normal 65-99 mg/dl Prediabetes 100-125 Diabetes >/= 126Performed By: #### CBCAD, ESR, CRP, CMP #### [facility] [address], [place] [id number] [Moles/Vol]3.5 mmol/LNormal3.5-5.5NortWay[facility] SpecialistComment on above:Performed By: #### CBCAD, ESR, CRP, CMP #### [facility] [address], [place] [id number] [Mass/Vol]6.8 g/dLNormal6.1-8.1[facility] SpecialistComment on above:Performed By: #### CBCAD, ESR, CRP, CMP #### [facility] [address], [place] [id number] [Moles/Vol]142 mmol/WVayjys413-886Kbpcraix [place] [facility] SpecialistComment on above:Performed By: #### CBCAD, ESR, CRP, CMP #### [facility] [address], [place] [id number] nitrogen [Mass/Vol]20 mg/dLNormal7-25NortWay[facility] SpecialistComment on above:Performed By: #### CBCAD, ESR, CRP, CMP #### [facility] [address], [place] [id number] - REMI MULTIPLEX W/ REFLEX TO 11 ANTIBODY CASCADEon 39-51-9912JSUPXGGRS(R) SCREENNegativeNormalNEGATIVENortWayne HealthCare Main Campus SpecialistComment on above:Order Comment: [facility] performed at: QPT, [employer] [facility], [address] [facility], [address] [place] [address], [place], [address], [employer]: Joao Merati MD [facility] Collection Date/Time: [facility] Results Received Date/Time: [facility] Reported Date/Time: [id number] Comment: A negative REMI Multiplex, with Reflex to 11 Antibody [place] indicates the absence of detectable antibodies to component analytes consisting of double stranded DNA (dsDNA), chromatin, ribonucleoprotein (DIESEL RETROFIT DESIGNER), Leal/DIESEL RETROFIT DESIGNER (Sm/DIESEL RETROFIT DESIGNER), Leal (Sm), SS-A, SS-B, Radha-1, centromere B, Scl-70 and ribosomal P. A negative result should be interpreted in the context of the clinical and laboratory findings and does not rule out autoimmune disease characterized by other autoantibody specificities such as rheumatoid arthritis, autoimmune hepatitis, primary biliary cirrhosis, autoimmune thyroiditis, Vinton's disease, pernicious anemia, autoimmune neuropathies, vasculitis, celiac disease, and bullous disease. For additional information, please refer to http://education.Mengcao/faq/VGX564 (This link is being provided for informational/ educational purposes only.)Performed By: #### [id number] #### [facility] Default [address] [place], [place] [address]VDV Sedimentation Rateon 63-09-7343DVI (Bld) [Velocity]23.00 mm/h High0.00-20.00[facility] SpecialistComment on above:Performed By: #### CBCAD, ESR, CRP, CMP #### [facility] [address] [place], [place] [id number] Vital Signs Date TimeVital SignValuePerforming EenhrlogwJbkmhunv79-60-8482 12:52-0400Body htpryn003.5 cmGeorge YunAnalytics Quotientjose DO Work Phone: [facility] Colxggkhso19-55-9776 12:52-0400Body mass index (BMI) [Ratio]27.29 kg/s8Qftrmd Yun[employer] Quotientjose DO Work Phone: [facility] Wpqxuvaqtm12-66-9239 12:52-0400Body temperature 97.11 [degF]Nico Pepper DO Work Phone: [facility] Jjygshqsmg92-56-4745 12:52-0400Body rhuzoj23.68 kgGeorge Yunnuris DO Work Phone: noSaint [facility] Health ServicesVciaajutaf57-33-0914 12:52-0400Diastolic blood rlmtbvyx98 mm[Hg]Nico Pepper DO Work Phone: [facility]Mfuiydqfbz69-71-7727 12:52-0400Heart rate54 /min Nico Pepper DO Work Phone: [facility] WashingtonVeptnojkvw09-04-4395 12:52-2805KzB4% (BldA) [Mass fraction]96 %Nico Pepper DO Work Phone: [facility] WashingtonMptnpjvrbm26-22-0648 12:52-0400Systolic blood vmifhbpj583 mm[Hg]Nico Pepper DO Work Phone: [phone] [place], [place] [address]Xaohqxhokq54-70-3122 09:43-0400Body mass index (BMI) [Ratio]27.8 kg/f6QinmebWinston Hameed MD Work Phone: 1(043)[facility] [place], [place] [address]Uswxnoxpyr46-66-6295 09:43-0400Body evsalv87.95 kgWinston Hameed MD Work Phone: 1(154)[facility] [place], [place] [address]Kfipaoljli17-66-7441 09:43-0400Diastolic blood kmedypib39 mm[Hg]Winston Hameed MD Work Phone: 1(549)[facility] [place], [place] [address]Iegzyuleqx58-72-9444 09:43-0400Systolic blood pgnjcjwu708 mm[Hg]Winston Hameed MD Work Phone: 1(915)[facility] [place], [place] [address]Tfcxyeqjlr46-60-4869 11:15-0400Body mass index (BMI) [Ratio]27.62 kg/v7SadsgrWinston Hameed MD Work Phone: 1([phone])[facility] [place], [place] [address]Apogrducht64-27-3568 11:15-0400Body jvzufn62.49 kgWinston Hameed MD Work Phone: 1(463)[facility] [place], [place] [address]Idtllslwaq84-35-8973 11:15-0400Diastolic blood iixkyinx12 mm[Hg]Winston Hameed MD Work Phone: 1(575)[facility] [place], [place] [address]Yndpzfusci89-62-4190 11:15-0400Systolic blood mm[Hg]Winston Hameed MD Work Phone: 1(482)[facility] [place], [place] [address]Gdhjomauyp68-30-3276 18:32-0400Diastolic blood nrtoiaqw39 mm[Hg]Juancarlos Pepper DO Work Phone: 1(242)[address] [place], [place] 4861704-05-2025 18:32-0400 Heart rate65 /Madisyn. Eloisa Pepper DO Work Phone: 1(052)[address] [place], [place] 4861704-05-2025 18:32-0400 SaO2% (BldA) [Mass fraction]99 %Juancarlos Pepper DO Work Phone: 1(332)[address] [place], [place] 4861704-05-2025 18:32-0400 Systolic blood iywdudvi233 mm[Hg]Juancarlos Pepper DO Work Phone: 1(281)[address] [place], [place] 4861704-05-2025 17:47-0400 Respiratory rate18 /MadisynJerman Pepper DO Work Phone: 1(970)[address] [place], [place] 4861704-05-2025 17:04-0400 Body yhheol359.48 cmG. Eloisa Pepper DO Work Phone: 1(411)[address] [place], [place] 4861704-05-2025 17:04-0400 Body cqqnthgulbv02.5 [degF]Juancarlos Pepper DO Work Phone: [phone])[address] [place], [place] 4861704-05-2025 17:04-0400 Body .77 kgGJerman Pepper DO Work Phone: 1(876)[address] [place], [place] 4861703-24-2025 14:13-0400 Body mass index (BMI) [Ratio]27.07 kg/z5Usihglgwyn Pepper DO Work Phone: 1(526)[address] [place], [place] 5105603-24-2025 14:13-0400Body temperature 96.91 [degF]Nico Pepper DO Work Phone: 1(980)[facility] [place], [place] [address]Sfimbvkgkf64-59-6429 14:13-0400Body asdgol90.13 kgGecassandra Pepper DO Work Phone: 1(784)[facility] [place], [place] [address]Ofeqokbvfd36-32-5720 14:13-0400Diastolic blood bvgurhmh57 mm[Hg]Nico Pepper DO Work Phone: 1(742)[facility] [place], [place] [address]Telocixxwt82-71-2533 14:13-0400Heart rate50 /min Nico Pepper DO Work Phone: 1(742)[facility] [place], [place] [address]Gjcnnenbre30-66-3266 14:13-4920WpG5% (BldA) [Mass fraction]99 %Nico Pepper DO Work Phone: 1(423)[facility] [place], [place] [address]Opcmkjwhmi61-30-5125 14:13-0400Systolic blood ehgwdkqx152 mm[Hg]Nico Pepper DO Work Phone: 1(885)[address] [place], [place] 5105603-18-2025 19:15-0400Diastolic blood tsrotvvt82 mm[Hg]Juancarlos Pepper DO Work Phone: 1(095)[address] [place], [place] 4861703-18-2025 19:15-0400 Heart rate60 /Madisyn. Eloisa Pepper DO Work Phone: 1(234)[address] [place], [place] 4861703-18-2025 19:15-0400 Respiratory rate16 /Madisyn. Eloisa Pepper DO Work Phone: 1(280)[address] [place], [place] 4861703-18-2025 19:15-0400 SaO2% (BldA) [Mass fraction]99 %Juancarlos Pepper DO Work Phone: 1(633)[address] [place], [place] 4861703-18-2025 19:15-0400 Systolic blood mufgrpoq972 mm[Hg]Juancarlos Pepper DO Work Phone: 1(829)[address] [place], [place] 4861703-18-2025 14:15-0400 Body grzunm069.48 cmG. Eloisa Pepper DO Work Phone: 1(298)[address] [place], [place] 4861703-18-2025 14:15-0400 Body esfjkrcidua70.4 [degF]Juancarlos Pepper DO Work Phone: 1(837)[address] [place], [place] 4861703-18-2025 14:15-0400 Body baxswp80.9 kgGJerman Pepper DO Work Phone: 1(112)[address] [place], [place] 4861701-28-2025 13:16-0500 Body lypvcu777.48 [facility] 13:16-0500Body mass index (BMI) [Ratio]27.1 kg/k4HzunukcarBarberton Citizens Hospital01-28-2025 13:16-0500Body qkziibekxsk02.7 [degF][facility]01-28-2025 13:16-0500Body sknhaf53.24 kgBar[facility]ton [facility]01-28-2025 13:16-0500Diastolic blood vcobmtgv23 mm[Hg][facility] 04-06-2024 13:16-0500Heart rate60 /[facility] 04-06-2024 13:16-0500Respiratory rate14 /[facility] 04-06-2024 13:16-4291DlD9% (BldA) [Mass fraction]98 %[facility]01-28-2025 13:16-0500Systolic blood nsrqqauh178 mm[Hg][facility]10-14-2024 11:24-0400Body bamzpa097.5 Mily Vicente PA Work Phone: [phone] WashingtonPuhxuijdif97-29-8589 11:24-0400Body mass index (BMI) [Ratio]27.07 kg/m2Roxana Vicente PA Work Phone: [phone] WashingtonImcgtszgxi16-68-6262 11:24-0400Body temperature 97.3 [degF]Roxana Vicente PA Work Phone: [facility] WashingtonIazrpgpdvh86-25-6793 11:24-0400Body lekajz33.13 kgRoxana Vicente PA Work Phone: [phone] WashingtonZmefvzcexo81-05-9314 11:24-0400Diastolic blood fcheidlg72 mm[Hg]Roxana Vicente PA Work Phone: [phone])719[facility] WashingtonMkaribaxdd87-82-0853 11:24-0400Heart rate71 /min Roxana Vicente PA Work Phone: [phone] Francis Hospital & Health ServicesQaryaqiaky21-70-4479 11:24-9217FcJ8% (BldA) [Mass fraction]98 %Roxana Vicente PA Work Phone: ScreachTVSaint Francis Hospital & Health ServicesLteluikjil42-90-9137 11:24-0400Systolic blood mm[Hg]Roxana Vicente PA Work Phone: ScreachTVSaint Francis Hospital & Health ServicesAcmumrxdec50-68-9903 11:24-0400Body odwxig642.5 cmSeason Maye BIOLOGICS SPECIALIST.MANAGER RETENTION Work Phone: [phone] Xcmoyn22-70-0987 11:24-0400Body mass index (BMI) [Ratio]25.77 kg/w0Golqlh Maye COLBYN.MANAGER RETENTION Work Phone: [phone]()[phone] Health Anderson HospitalHsvlvo56-98-3653 11:24-0400Body temperature 97.81 [degF] Maye BIOLOGICS SPECIALIST.MANAGER RETENTION Work Phone: [phone]()[phone] Ubjdlf64-27-8860 11:24-0400Body kxeapb69.91 kgSe Maye COLBYN.MANAGER RETENTION Work Phone: [phone]()[phone] Ptrtln13-59-5992 11:24-0400Diastolic blood gclnjtei95 mm[Hg]Season Maye COLBYN.MANAGER RETENTION Work Phone: [phone]()[phone] Wjokoj16-28-0499 11:24-0400Heart rate53 /min Season Maye COLBYN.MANAGER RETENTION Work Phone: [phone]()[phone] Kweabs12-99-2412 11:24-3320MiS0% (BldA) [Mass fraction]100 % Maye BIOLOGICS SPECIALIST.MANAGER RETENTION Work Phone: [phone]()[phone] Hjvxqx04-31-5344 11:24-0400Systolic blood mxgsdhso816 mm[Hg]Season Maye BIOLOGICS SPECIALIST.MANAGER RETENTION Work Phone: [phone] Lkjsyi31-22-0870 09:40-0400Diastolic blood ywvpkugx64 mm[Hg]Nicanor Ferris MD Work Phone: [phone]()[phone] Xhbydb69-88-9168 09:40-0400Heart rate47 /min Nicanor Ferris MD Work Phone: [phone] Nhsvej48-71-6838 09:40-0400Respiratory rate 18 /minSvannessa Ferris MD Work Phone: [phone] Typkfl21-07-4534 09:40-9320EsR7% (BldA) [Mass fraction]100 %Nicanor Ferris MD Work Phone: [place] [address]-24-2024 09:40-0400Systolic blood mm[Hg]Nicanor Ferris MD Work Phone: [place] [address]-24-2024 08:21-0400Body lqearj257.5 aLkisha Ferris MD Work Phone: [place] [address]-24-2024 08:21-0400Body mass index (BMI) [Ratio]25.79 kg/m2Nicanor Ferris MD Work Phone: [place] [address]-24-2024 08:21-0400Body temperature 96.8 [degF]Nicanor Ferris MD Work Phone: [place] [address]-24-2024 08:21-0400Body dpirel25.96 kgNicanor Ferris MD Work Phone: [place] [address]-17-2024 14:31-0400Body .5 Lakisha Ferris MD Work Phone: [place] [address]-17-2024 14:31-0400Body mass index (BMI) [Ratio]25.57 kg/m2Nicanor Ferris MD Work Phone: [place] [address]-17-2024 14:31-0400Body temperature 97.39 [degF]Nicanor Ferris MD Work Phone: [place] [address]-17-2024 14:31-0400Body epqpqb01.41 kgNicanor Ferris MD Work Phone: [place] [address]-17-2024 14:31-0400Diastolic blood mm[Hg]Nicaonr Ferris MD Work Phone: [place] [address]-17-2024 14:31-0400Heart rate58 /min Nicanor Ferris MD Work Phone: [phone] [address]-17-2024 14:31-0400Respiratory rate 14 /minSvannessa Ferris MD Work Phone: [place] [address]-17-2024 14:31-3971SrW0% (BldA) [Mass fraction]98 %Nicanor Ferris MD Work Phone: [place] Uqsozt43-47-8590 14:31-0400Systolic blood mm[Hg]Nicanor Ferris MD Work Phone: [place] Mdfcxg44-91-4573 10:41-0500Body temperature 96.98 [degF]Malina Locoz [phone]-ZnufeOhiohealth Marion [facility] Hospital01-29-2024 10:41-0500Diastolic blood qlacnutw22 mm[Hg]Malina Castaneda [phone]-CqekyOhiohealth Marion General Hospital01-29-2024 10:41-0500Heart rate52 /minBeth Tonya 818-3888Blufxu-SsucsOhiohealth [facility] Hospital01-29-2024 10:41-0500Systolic blood aypptlys17 mm[Hg]Malina Locoz [phone]-EzbbuOhiohealth Marion General Hospital01-21-2024 07:00-0500Diastolic blood gbironas07 mm[Hg]DO Juancarlos Pepper Work Phone: 6(721)000-[address] [place], [place] 1663601-21-2024 07:00-0500 Heart rate20 /minDO Juancarlos Pepper Work Phone: 7(834)785-[address] [place], [place] 1663601-21-2024 07:00-0500 Respiratory rate20 /AnilO Juancarlos Pepper Work Phone: 3(607)307-[address] [place], [place] 1663601-21-2024 07:00-0500 SaO2% (BldA) [Mass fraction]96 %DO Juancarlos Pepper Work Phone: 0(002)832-[address] [place], [place] 1663601-21-2024 07:00-0500 Systolic blood qujbxxzf101 mm[Hg]DO Juancarlos Pepper Work Phone: 1(220)369-[address] [place], [place] 1663601-21-2024 04:21-0500 Body cmyjqw145.48 cmDO Juancarlos Pepper Work Phone: 1(092)[address] [place], [place] 4861701-21-2024 04:21-0500 Body omhdpsjyfxb80.1 [degF]DO Juancarlos Pepper Work Phone: 1(440)[address] [place], [place] 4861701-21-2024 04:21-0500 Body mufadv72.5 kgDO Juancarlos Ppeper Work Phone: 1(381)[address] [place], [place] 4861701-15-2024 15:00-0500 Diastolic blood mm[Hg]DO Juancarlos Pepper Work Phone: 1(049)[address] [place], [place] 4861701-15-2024 15:00-0500 Heart rate60 /minDO Juancarlos Pepper Work Phone: 1(213)[address] [place], [place] 4861701-15-2024 15:00-0500 Respiratory rate16 /AnilO Juancarlos Pepper Work Phone: 1(872)[address] [place], [place] 4861701-15-2024 15:00-0500 SaO2% (BldA) [Mass fraction]96 %DO Juancarlos Pepper Work Phone: 1(019)[address] [place], [place] 4861701-15-2024 15:00-0500 Systolic blood mqjjjowt756 mm[Hg]DO Juancarlos Pepper Work Phone: 1(686)[address] [place], [place] 4861701-15-2024 12:27-0500 Body yeasdk091.48 cmDO Juancarlos Pepper Work Phone: 1(516)[address] [place], [place] 4861701-15-2024 12:27-0500 Body gjciiadjkmz52.9 [degF]DO Juancarlos Pepper Work Phone: 1(990)[address] [place], [place] 4861701-15-2024 12:27-0500 Body ygmwhk24.1 kgDO Juancarlos Pepper Work Phone: 6(901)[address] [place], [place] 4861702-02-2023 14:33-0500 Body srkabk982.5 cmLauren Krishnan MD Work Phone: [facility]02-02-2023 14:33-0500Body mass index (BMI) [Ratio]23.23 kg/n9DozhzcLauren Krishnan MD Work Phone: [facility] Qonf02-02-2023 14:33-0500Body ykuqbv68.61 kgLauren Krishnan MD Work Phone: [facility] DishOpinion [facility] CENTERDigital RailroadBLJXSO52-91-5400 14:30-0500Diastolic blood yoopbpfw39 mm[Hg]Lauren Krishnan MD Work Phone: Manjras[employer] [facility] HOSPITALWONNEW41-95-7524 14:30-8986OcD6% (BldA) [Mass fraction]98 %Lauren Krishnan MD Work Phone: [employer] [facility]ENTERDigital RailroadMLVMVY36-86-7492 14:30-0500Systolic blood tenzcmqi110 mm[Hg]Lauren Krishnan MD Work Phone: [employer] [facility] HOSPITALLCOAVI93-70-1604 14:25-0500Body .4 [degF]Lauren Krishnan MD Work Phone: [employer] D[employer] [facility] HOSPITALFFBMFS33-73-0289 14:25-0500Heart rate85 /Ro Krishnan MD Work Phone: [facility] Qonf02-02-2023 14:25-0500 Respiratory rate18 /minLauren Krishnan MD Work Phone: [employer]pinion [facility] HOSPITALQHIQSW21-99-5513 17:26-0400BP Wffyrgfyh71 mm[Hg]Salim HayekMG-[facility] [address] Work Phone: 1(502) 130-680607-17-2020 17:26-0400BP Vdgpjczl617 mm[Hg]Salim Rolando [facility] [address] Work Phone: 1(625) 125-894707-17-2020 17:26-0400Pulse (Heart Rate)90 /minSalim HayekMG-[facility] [address] Work Phone: 1(257) 108-702307-17-2020 17:26-0400Respiratory Rate16 /minSalim HayekMG-[facility] [address] Work Phone: 1(232) 711-775607-17-2020 17:26-22635 Jackelin Marshall[facility] [address] Work Phone: comment on above:Pain Scale Encounters Encounter DateEncounter TypeCare ProviderFacilityStart: 12-21-2024 End: 63-66-4772ypzamymtjoDJPJQMPremier Health Upper Valley Medical Centertart: 12-13-2024 End: 35-15-2274Nrxwwa flowsheetNico R Yunftan DO Work Phone: noms [facility] 230Start: 12-13-2024 End: 40-85-5259Mdtwpa flowsheetGeishage R Kaftan DO Work Phone: noms [facility] 230Start: 12-13-2024 End: 20-55-3796Tpfgmp outpatient visit 15 minutesGeorgwyn R Yunftjose DO Work Phone: noms [facility] 230Comment on above: Complex regional pain syndrome type 1, affecting unspecified site (Primary Dx); Headache; Disorder of intervertebral disc of lumbar spine; Chronic pain syndrome; NeuropathyStart: 12-13-2024 End: 72-33-8586jihhcoeubuQRGXOF R KAFTANNot AvailableStart: 11-02-2024 End: 39-70-0479hbnkcirfyoZYHXNKPremier Health Upper Valley Medical Centertart: 10-06-2024 End: 01-18-5313MbtprnTwsxjKian Smith LPN Work Phone: noms [facility] 230Comment on above: Primary hypertension ; Other chronic pain; Bipolar affective disorder, remission status unspecified (HCC); Complex regional pain syndrome type 1, affecting unspecified site; Disorder of intervertebral disc of lumbar spine; Chronic pain syndrome; Neuropathy; Headache; Nonintractable headache, unspecified chronicity pattern, unspecified headache type; Unspecified thoracic, thoracolumbar and lumbosacral intervertebral disc disorder Start: 09-20-2024 End: 45-38-3356xvwelmqyiaZZHKPCPremier Health Upper Valley Medical Centertart: 09-13-2024 End: 38-77-1018Nyxizlxmh Result EncounterGeneric External Data ProviderNOMS External Department UnsolicitedStart: 09-13-2024 End: 97-63-1288Jnesqbzyh Result EncounterGeneric External Data ProviderNOAR External Department UnsolicitedStart: 09-07-2024 End: 64-15-3868DduiulMppanKian Smith LPN Work Phone: noms [facility] 230Comment on above:Complex regional pain syndrome type 1, affecting unspecified site; Disorder of intervertebral disc of lumbar spine; Chronic pain syndrome; NeuropathyStart: 08-16-2024 End: 90-29-5807Hugzlj OnlyWinston Hameed MD Work Phone: noms External Department UnsolicitedStart: 08-16-2024 ambulatoryFacility:EU [place]uskyStart: 08-16-2024 End: 90-82-5238Xasumu outpatient new 20 minutesWinston Hameed MD Work Phone: noms [facility] OBComment on above:Sensation as if bladder still full (Primary Dx); Hormone imbalance; Urinary incontinence, unspecified type; Vaginal atrophy; Other urinary incontinence; Yeast infectionStart: 08-16-2024 End: 49-96-7422erqiuiloltEUPGHN P JONESNot AvailableStart: 08-09-2024 End: 52-91-1393lntbszzcmlPpupbca Vytautas Gieditis Facility:[facility] [place] Start: 07-20-2024 End: 75-57-4039QvraybFwakwf R Kaftan DO Work Phone: noms [facility] FM 230Comment on above:Complex regional pain syndrome type 1, affecting unspecified site; Disorder of intervertebral disc of lumbar spine; Chronic pain syndrome; NeuropathyStart: 07-19-2024 End: 77-98-0619Ssufjiz encounter statusWinston Hameed MD Work Phone: noms HealthcareStart: 07-19-2024 End: 78-88-3812Dlnyjlmu preventive med est patient 40-64yrsPchanel Hameed MD Work Phone: noms [facility] OBComment on above:Screening mammogram, encounter for (Primary Dx); Hormone imbalance; Urinary incontinence, unspecified type; Encounter for gynecological examination without abnormal finding; Encounter for screening for cervical cancer; Vaginal atrophy; Other urinary incontinenceStart: 07-19-2024 End: 57-04-7200gqxjtzqfqsLJYGCV P JONESNot AvailableStart: 07-13-2024 End: 40-47-7422CmlkdxWofuoj R Kaftan DO Work Phone: [facility] FM 230Comment on above:Unspecified thoracic, thoracolumbar and lumbosacral intervertebral disc disorderStart: 06-14-2024 End: 85-46-9076ShsxalCnnxzy R Kaftan DO Work Phone: [facility] 230Comment on above:Bipolar affective disorder, remission status unspecified ([facility])Start: 06-12-2024 End: 15-15-7190Goulvleci department patient visitG. Eloisa Yunnuris DO Work Phone: [facility] Work Phone: Start: 06-07-2024 End: 59-32-5643hgwfqnwklkMtjlrix Vytautas Giedraitis MDFacility:[facility] [place] Start: 05-31-2024 End: 53-04-4897Cfkokt outpatient visit 15 minutesGeorgwyn Pepper DO Work Phone: [facility] 230Comment on above:Dizzy spells (Primary Dx); Bipolar disorder, unspecified ([facility]); Chronic kidney disease, stage 3b (HCC) (CMS/[facility]); Complex regional pain syndrome type 1, affecting unspecified site; Disorder of intervertebral disc of lumbar spine; Chronic pain syndrome; Neuropathy; Acute recurrent maxillary sinusitis; Urinary incontinence, unspecified typeStart: 05-31-2024 End: 88-20-8770bedyiqhiicZULAPD R KAFTANNot AvailableStart: 05-31-2024 End: 19-37-4504Eedcgn flowsheetNico Pepper DO Work Phone: [facility] 230Start: 05-31-2024 End: 98-13-5270Vuxuky flowsheetGeorgwyn R Kaftan DO Work Phone: [facility] 230Start: 05-25-2024 End: 67-64-6744Aqklloapn department patient visitG. Eloisa Shantelle DO Work Phone: [facility] Work Phone: Start: 05-05-2024 End: 99-95-5813NizhzgGszbqKian Smith LPN Work Phone: [facility] 230Comment on above:Nonintractable headache, unspecified chronicity pattern, unspecified headache typeStart: 05-03-2024 End: 08-45-6486ElvnyrJufpaz R Kaftan DO Work Phone: [facility] 230Comment on above:Complex regional pain syndrome type 1, affecting unspecified site; Disorder of intervertebral disc of lumbar spine; Chronic pain syndrome; NeuropathyStart: 04-20-2024 End: 88-01-7969tbvinwqcgwOQAIYCCleveland Clinic Hillcrest Hospitaltart: 04-06-2024 End: 01-88-1805becaaqptstRpfrmihizDayton Osteopathic Hospital Work Phone: Start: 04-06-2024 End: 26-26-0837Gffbutv encounter procedureOnslow [facility] [place] Work Phone: Start: 04-01-2024 End: 59-80-2309KbcsjoPorcdk R Kaftan DO Work Phone: [facility] 230Comment on above:Complex regional pain syndrome type 1, affecting unspecified site; Disorder of intervertebral disc of lumbar spine; Chronic pain syndrome; NeuropathyStart: 02-26-2024 End: 22-42-0258LztlouImkmso R Kaftan DO Work Phone: [facility] 230Comment on above:Complex regional pain syndrome type 1, affecting unspecified site; Disorder of intervertebral disc of lumbar spine; Chronic pain syndrome; NeuropathyBipolar affective disorder, remission status unspecified (CMS/HCC); Anxiety and depression (CMS/HCC)Start: 01-28-2024 End: 99-41-6902EyhpmcIbuknt R Kaftan DO Work Phone: [facility] 230Comment on above:Nonintractable headache, unspecified chronicity pattern, unspecified headache typeStart: 01-25-2024 End: 71-27-6211UanhupEgnkcx R Kaftan DO Work Phone: [facility] 230Comment on above:Complex regional pain syndrome type 1, affecting unspecified site; Disorder of intervertebral disc of lumbar spine; Chronic pain syndrome; NeuropathyStart: 94-99-6218esrecoonucZJQFQIPremier Health Upper Valley Medical Centertart: 01-08-2024 End: 87-88-1233AflgboVjodci R Kaftan DO Work Phone: [facility] 230Comment on above:Other chronic pain Start: 01-07-2024 End: 66-25-3602fwkdiivfrrWWOSQQPremier Health Upper Valley Medical Centertart: 12-27-2023 End: 11-69-3389BmoazfBrhizc R Kaftan DO Work Phone: [facility] 230Comment on above:Complex regional pain syndrome type 1, affecting unspecified site; Disorder of intervertebral disc of lumbar spine; Chronic pain syndrome; NeuropathyStart: 12-22-2023 End: 67-45-1581Dltqll Jonas SANTIAGO Work Phone: [phone] 230Start: 12-22-2023 End: 87-92-4120Xpjalo Jonas SANTIAGO Work Phone: [phone] 230Start: 12-22-2023 End: 46-84-6182Xuiavt outpatient visit 25 minutesRoxana SANTIAGO Work Phone: [phone] 230Comment on above:Bacterial conjunctivitis of both eyes (Primary Dx); URI, acute; Need for vaccination; NephrolithiasisStart: 12-22-2023 End: 38-71-2145ccjrvhyfhfGIDO M MYERSNot AvailableStart: 11-18-2023 End: 67-35-6874PidpheGibyzx Selwyn Pepper Work Phone: noMS [facility] FM 230Comment on above:Complex regional pain syndrome type 1, affecting unspecified site; Disorder of intervertebral disc of lumbar spine; Chronic pain syndrome; NeuropathyStart: 21-63-3581kojdqigxfwDwwjnipet LyonPulmonary MedicineStart: 07-68-2225gyjiqlzbmaLcwqlduik LyonPulmonary MedicineStart: 07-02-2023 End: 58-45-1773gqzojvmaeeNvxqjsin Dori KLINE Work Phone: pulmonary MedicineStart: 07-02-2023 End: 97-94-1240Xycybkn encounter Gilberto Villavicencio APRN.CNP Work Phone: Thoracic ClinicComment on above:Epigastric abdominal pain (Primary Dx)Start: 07-02-2023 End: 96-79-2127Tcawsupgac hospital visit by Emelyn Ferris MD Work Phone: gastroenterologyComment on above:Epigastric abdominal pain [R10.13]Start: 06-25-2023 End: 24-45-3133Xfbptwe encounter Maria Elena Ferris MD Work Phone: Thoracic ClinicComment on above:Epigastric abdominal pain (Primary Dx); S/P Yefri fundoplication (without gastrostomy tube) procedureStart: 06-25-2023 End: 15-01-8890hrnjsogiuqWtxt Dille RNGastroenterologyStart: 06-25-2023 End: 73-47-9947Byppamctkt hospital visit by physicianLinda Boss QbRadiologyComment on above:Epigastric abdominal pain [R10.13]Start: 20-19-3295Dcbqbbzjp encounter Nicanor Ferris MD Work Phone: Thoracic ClinicComment on above:Request Outside Medical Records; Received Outside Medical RecordsStart: 71-34-9292Mxhdsflje encounterSvannessa Ferris MD Work Phone: Thoracic ClinicComment on above:External Referrals/resourcesStart: 04-28-2023 End: 64-30-5599Lejnfav encounter procedureBenegar Ward [facility] Start: 43-94-3667AozfwhEndfxu R Kaftan DO Work Phone: [facility] 230Comment on above:Complex regional pain syndrome type 1, affecting unspecified site; Disorder of intervertebral disc of lumbar spine; Chronic pain syndrome; NeuropathyStart: 04-23-2023 End: 65-47-1802Tfwlhai encounter procedureBenegar [facility]aneda [facility] Start: 04-16-2023 End: 63-85-6640Lwokewl encounter procedureXXXX [facility] Start: 04-07-2023 End: 51-16-5127Yqnselk encounter procedureBenegar Hopper Tonya 370-9080Rjudap-FzxcyOhio [facility] Start: 03-30-2023 End: 11-22-8610Mvjtzillv department patient visitDO Juancarlos Pepper Work Phone: [facility] Work Phone: Start: 03-24-2023 End: 70-75-4222Runtdschq department patient visitDO Juancarlos Pepper Work Phone: [facility] Work Phone: Start: 27-36-2357hmkfyfbqoaMbJerman Pepper Facility:[id number]: 77-87-6567BYKQDYAS83, Provider: Dc Wu, Status: Pen, Time: 11:00 AMNico Pepper Work Phone: [phone]-Olvzql [facility] Work Phone: Start: 75-65-1107Weziiep encounter procedureGeorgwyn Pepper Work Phone: [facility] Work Phone: Start: 12-29-7774Huscpst encounter procedureGeorge Selwyn Pepper Work Phone: [phone]-Ljncfa For OrthopedicFostoria City Hospital Work Phone: Start: 04-20-8461sccqzwetaiQv. Nico Amin Shantelle Salas Facility:[id number]: 23-99-1487Mdsio EncounterGeorgwyn Selwyn Pepper Work Phone: [phone]-NfbydiP[facility] [place] Work Phone: Start: 79-32-6692Cjntt UpdateGecassandra Pepper Work Phone: [phone]-RhdnnnP[facility]hus[facility] [place] Work Phone: Start: 52-16-3441Zlxlbsh encounter procedureGecassandra Pepper Work Phone: [phone]-GzjgxfP[facility]huska [facility] [place] Work Phone: Start: 29-34-6097cbmzkwtycdAx. Nico Eloisa Shantelle Salas Facility:[id number]: 24-35-2806sjnswohodnGj. Nico Amin Shantelle Salas Facility:[id number]: 99-88-3571Aylreox encounter procedureGeorgwyn Selwyn Pepper Work Phone: [phone]-Jyrplvuzbs-[place] [address] [place] Work Phone: Start: 20-19-2668Rmhihqa encounter procedureGeorge Selwyn Pepper Work Phone: [phone]-Glttcclolk-[place] [address] [place] Work Phone: Start: 05-24-4511wnlobqcrjsTi. Madeleine Marshall Facility:AMCStart: 06-13-2022 End: 18-71-1322dtzuobkrzzGZ MARIA M LIEBERMAN .Facility:F6Ahuig: 04-11-2022 Emergency department patient visitPATRICIA EULOGIOMercy Healthtart: 04-11-2022 End: 35-71-6065Wfhwivkpr department patient visitLauren Krishnan MD Work Phone: [facility] EDComment on above: Constipation, unspecified constipation type (Primary Dx); Kidney stoneStart: 18-30-4845wllhxpvjjyXJ SCAR LAZARO .Facility:B1Rqovm: 12-25-2021 End: 60-96-9336wtdidkwaeuPVLMEERK EBERLYFacility:U5Ellvy: 10-31-2021 End: 37-56-9434duvmwvswbqIFTXHYGP EBERLYFacility:H1Khrrc: 10-18-2021 End: 02-42-7672domfmkyjclGY SCAR LAZARO .Facility:W2Kphmu: 10-02-2021 End: 01-21-6211mqxwditlcuCC SCAR LAZARO .Facility:F1Vpzvi: 09-18-2021 End: 27-86-1234tfjdmpckrdLV BRY BHATIAFacility:G7Zpbzc: 09-18-2021 End: 46-60-5462vwsvrjxzhsQG KYMBERLY LEALFacility:X4Fumhq: 09-06-2021 End: 46-13-9463ocggzmynyyEF Ryan PEPPERFacility:R5Zhgrz: 09-01-2021 End: 55-61-9077jgdhkozqbnNZ KIRAN SOLANO .Facility:D0Kmdxy: 08-21-2021 End: 31-28-5772cecnzbmbkuLZ G ROBERT KAFTANFacility:Y7Myezy: 07-10-2021 End: 55-71-3267gdmmqloftnHB G ROBERT KAFTANFacility:H1 Procedures DateProcedureProcedure DetailPerforming ClinicianStart: 13-83-2771ML LUMBAR SPINE WO CONGeneric External Data ProviderStart: 90-74-8793Dvbhtxu bacterial quanttative colony count urineWinston Hameed MD Work Phone: start: 67-46-1052EMVSQ CULTURE CLEAN CATCH REFLEX Winston Hameed MD Work Phone: start: 47-05-2234ECV, APT HPV,RFX 16/18,45Winston Hameed MD Work Phone: start: 76-66-6878IW of head without contrastG. Eloisa Pepper DO Work Phone: Start: 43-72-2037ZC of head without contrastG. Eloisa Pepper DO Work Phone: Start: 64-34-6367Poknp chest X-rayG. Eloisa Pepper DO Work Phone: Start: 36-42-7563Vjvzk nucleic acid assayG. Eloisa Pepper DO Work Phone: Start: 39-86-1366Dtxao dip stick/tablet rgnt non-auto w/o micrscpRyan Ashvin SANTIAGO Work Phone: Start: 34-14-8233Cvdpkfsozjlponeetuoeegihng transoral diagnosticSvannessa Ferris MD Work Phone: Start: 64-87-1352Bl thorax w/o contrast Mary Ferris MD Work Phone: Start: 37-09-1221Nilbjcny tomography of abdomen and pelvis with contrastDO Juancarlos Pepper Work Phone: Start: 11-64-5145Fbkrg chest X-rayDO Juancarlos Pepper Work Phone: Start: 56-12-6368Ytlpiwjrsil diagnostic evaluation Nico Pepper Work Phone: Start: 85-02-6514Dh abdomen & pelvis w/o contrast Justin Krishnan MD Work Phone: Start: 28-30-3185Eleitgqnkf microscopic onlyGeorge Selwyn Pepper Work Phone: Start: 15-02-2016Pyhwb dip stick/tablet rgnt auto w/o microscopyLauren Krishnan MD Work Phone: Start: 59-69-2141Gtxcpbvaoycrl metabolic panelLauren Krishnan MD Work Phone: Start: 04-37-1727LyomrunthqxLjltnl Jones MD Work Phone: start: 60-77-7760GfirwulkkzdJrmtdq Kaftan DO Work Phone: Start: 63-71-2708Jujlxfbdjkcdeecxszgadpfyhor electrohydraulic lithotripsy of bezoar in stomachMalina Castaneda Start: 12-91-2378WusidjrukssQeozgh Shantelle CADENA Work Phone: Start: 01-23-2018H/O: hysterectomyStatus post hysterectomyGeorge Shantelle CADENA Work Phone: Start: 05-30-1174Capibonlwcxkei shockwave lithotripsy of calculus of kidneyBenegar Castaneda AppendectomyGregg Tonya Arthroscopy of kneeBenegar Castaneda CholecystectomyMalina Castaneda HysterectomyMalina Castaneda Plan of Treatment DateCare ActivityDetailAuthorStart: 82-98-1163Hzuij microalbumin profile DTaP,Tdap,Td Vaccine (2 - Td or Tdap)[facility]art: 94-01-5754Ekopqjpew for malignant neoplasm of colonNOMS HealthcareStart: 95-33-5230Rkfusrvcr for malignant neoplasm of colonNOMS HealthcareStart: 12-13-2024 End: 34-25-7962Llehnab encounter wqjiallxd44/06/2025 1:00 PM EDT Office Visit [facility] [address] [place] [address] Nico Pepper DO [address] [place] [address] [facility] 230Comment on above:ArrivedStart: 78-08-1467Kljhuvyey vaccination Influenza Vaccine (#1)[facility] HealthcareStart: 08-19-2024 End: 04-85-2930OFE Breast - bilateral screeningBilateral screening mammogram with tomosynthesis Imaging Routine Screening mammogram, encounter forExpected: 08/19/2024, Expires: 11/19/2024[facility] Work Phone: comment on above:Expected: 08/19/2024, Expires: 11/19/2024Start: 08-16-2024 End: 02-08-2786Ytrmumd encounter mfshqjxof30/09/2025 10:45 AM EDT Office Visit [facility] [address] [place] [address] Winston Hameed MD [address] [place] [address] [facility] OBStart: 08-16-2024 End: 08-26-8866Eagwrsyjuoaz / ancillary services dsgvkooacf42/09/2025 9:30 AM EDT Ancillary Procedure [facility] [address] [place] [address] [facility] OBStart: 07-19-2024 End: 64-19-6683Mjxomcl encounter /12/2025 11:00 AM EDT Office Visit [facility] OB [address] [place] [address] Winston Hameed MD [address] [place] [address] [facility] OBStart: 97-17-3637OP Controlled (<130/80)BP Controlled (<130/80)[facility] System[facility]art: 05-31-2024 End: 76-29-4589Vfymons encounter /24/2025 2:20 PM EDT Office Visit [facility] [address] [place] [phone] Nico Pepper DO [address] [place] [address] Bipolar disorder, unspecified (CMS/HCC); Chronic kidney disease, stage 3b (HCC) (CMS/HCC)[facility] FM 230Comment on above:Bipolar disorder, unspecified (CMS/HCC); Chronic kidney disease, stage 3b (HCC) (CMS/HCC)Start: 12-22-2023 End: 09-89-6601Ianahse encounter bkodgjgrp93/14/2024 11:20 AM EDT [facility] [address] [place] [address] Roxana Vicente PA [address] [place] [address] [facility] 230Comment on above:ArrivedStart: 91-64-7955Jdikyfspw vaccinationInfluenza Vaccine (#1)[facility] HealthcareStart: 58-03-3626Kzjidywfvk Health ScreeningBehavioral Health ScreeningMercy Health Lorain Hospital Start: 61-88-5815Qnfvqmhwbn AssessmentDepression AssessmentMercy Health Lorain Hospital Start: 03-37-4367MMV, Provider: Humphrey Pfeiffer, Status: Pen, Time: 10:15 AMFUV, Provider: Humphrey Pfeiffer, Status: Pen, [facility]: 10:15 [facility] Work Phone: Start: 83-74-7392ZAC, Provider: Humphrey Pfeiffer, Status: Pen, Time: 11:15 AMFUV, Provider: Humphrey Pfeiffer, Status: Pen, Time: 11:15 AM[facility] Work Phone: Start: 95-18-9689Xvqazcgcn vaccinationFlu vaccine (#1) [facility]Start: 62-46-5360HAMPA-19 Vaccine (3 - Booster for Felicia series)COVID-19 Vaccine (3 - Booster for Felicia series)[facility]ITALStart: 28-87-6350Nuiwydesy for malignant neoplasm of breastMammogram [facility] HealthcareStart: 65-15-7827Tegodibsx for malignant neoplasm of breast Mammogram ScreeningOhio State Health Systemtart: 77-40-3355Epgrnsru ScreeningDiabetes ScreeningOhio State Health Systemtart: 91-06-7319Tgdvx panelLipid ScreeningOhio State Health Systemtart: 17-77-9223Hmyifbfbw for malignant neoplasm of colonBON [facility] Hospitalart: 72-76-6134Fkcyv panelLipidsSentara Northern Virginia Medical Centerart: 34-92-5298Ofyulbtfc for malignant neoplasm of breastMammogram ScreeningOhio State Health Systemtart: 46-12-8150Vihvvqqlf for malignant neoplasm of cervixSentara Northern Virginia Medical Centerart: 23-75-0533Qfnsyiytt for malignant neoplasm of cervixSentara Northern Virginia Medical Centerart: 01-76-4585NQqS/Tdap/Td vaccine (1 - Tdap)DTaP/Tdap/Td vaccine (1 - Tdap)[facility]ITALStart: 21-31-8303Pyoxljaog B Vaccine (1 of 3 - 19+ 3-dose series)Hepatitis B Vaccine (1 of 3 - 19+ 3-dose series) [facility] Systemtart: 43-58-2253Wbkrcs PCP Team Chronic Disease VisitAnnual PCP Team Chronic Disease VisitOhio State Health Systemtart: 25-26-5509Kgmdfpuqk C screeningSentara Northern Virginia Medical Centerart: 07-05-0611XOD screeningHIV Screening [facility] Systemtart: 91-58-0811WJH screeningHIV screenSENTARA NORFOLK [facility] Start: 27-07-4592Wjhcxlkqri ScreenDepression ScreenSENTARA NORFOLK GENERAL [facility]OS[facility]ITAL Start: 11-60-3302Kbcqejkgf for malignant neoplasm of colonMercy Hospital Washington Bacteria identified in Urine by CultureUrine culture Microbiology Routine Urinary incontinence, unspecified type Vaginal atrophy Other urinary incontinence Sensation as if bladder still full Ordered: 08/16/2024[facility] Work Phone: comment on above:Ordered: 08/16/2024 End: 09-84-3516VI Abdomen WO contrastCT ABDOMEN WO IVCON Radiology Routine Epigastric abdominal pain 1 Occurrences starting 05/19/2023 until 06/17/2024 [facility] Work Phone: comment on above:1 Occurrences starting 05/19/2023 until 06/17/2024 End: 85-75-3476JR Chest WO contrastCT CHEST WO IVCON Radiology Routine Epigastric abdominal pain 1 Occurrences starting 05/19/2023 until 06/17/2024 [facility] Work Phone: comment on above:1 Occurrences starting 05/19/2023 until 06/17/2024 End: 90-59-8376PTX DIAGNOSTICEGD DIAGNOSTIC Endoscopy Routine Epigastric abdominal pain 1 [facility]ur[facility]/19/2023 [facility] Work Phone: comment on above:1 Occurrences starting 05/19/2023 until 05/18/2024Patient EducationSouthern [facility] Work Phone: Patient referralSouthern [facility] Medical [facility] Ctr Work Phone: SURGICAL PATHOLOGYMiami Valley Hospital Work Phone: comment on above:Release Upon Ordering for 1 Occurrences starting 07/02/2023, 1 completedMercy Health Lorain Hospital Immunizations Immunization DateImmunizationNotesCare KuucsjasHlicwtdc80-31-3833Rdllokwkg, Madin [place] Canine Kidney, subunit, trivalent, injectable, contains preservative Roxana SANTIAGO Work Phone: noSaint [facility] Health ServicesRblhkiddyb21-82-4476lozffoiby virus vaccine, unspecified formulationLogjose Smith LPN Work Phone: noSaint [facility] Health ServicesQhfbahlkyt03-85-1621acanrkm, mumps and rubella virus vaccineRoxana SANTIAGO Work Phone: noSaint [facility] Health ServicesRatlqsldfm39-96-9405pnbycte, mumps and rubella virus vaccineRoxana SANTIAGO Work Phone: noSaint [facility] ServicesAxvcpowhlm92-84-4309KDYT-CGD-5 (COVID-19) vaccine, mRNA, spike protein, LNP, PF, 50 mcg/0.5 mLGeorge Kaftan DO Work Phone: noSaint [facility] ServicesEgkjcstbdu38-11-8926nkycxmbon virus vaccine, unspecified formulationMalina Castaneda [phone]-PwicgOhio State [facility] Hospital [facility] Kxjicg24-86-1335 influenza, injectable, quadrivalent, preservative freeGeorge Kaftan DO Work Phone: noSaint [facility] ServicesJvygalgets50-43-6833lmxtfkiad, seasonal, injectableGeorge Kaftan DO Work Phone: [place] [address]Anspokfmly35-03-8682mgzyrvr toxoid, reduced diphtheria toxoid, and acellular pertussis vaccine, adsorbedBenegar Castaneda 177-6820Alfpao-EskgdOhio State East Hospital Digest[facility] Vejgpm84-59-3977 Moderna COVID-19 Vaccine 100 MCG/0.5ML Intramuscular SuspensionGeorge R Kaftan Work Phone: [phone]-CzlhjOhio State [facility] Hospital Convenient Vhyd11-77-8193 influenza virus vaccine, unspecified formulationMalina Castaneda 800-4594Yoeisi-IkbnoOhio State East Hospital [facility]est[facility] Cplonq73-77-2627 influenza, injectable, quadrivalent, contains preservativeGeorge R Kaftan Work Phone: mg410-1821NJ-Nkgpoytbap-[place] Work Phone: [phone]w virus vaccine, unspecified formulationMalina Castaneda 649-6728Lnsznb-SiaplOhio State East Hospital Digestive Ovwkca44-65-2396 Felicia COVID-19 Vaccine 0.5 ML Intramuscular SuspensionGeorge R Kaftan Work Phone: [phone]-WpdbgOhio State East Hospital Digestive HealthComment on above:Result Comment: 2023-04-04: KUZ3092-57-1014Twsqnjg TZRQ-AbR-1Ffdemz Kaftan DO Work Phone: noSaint [facility] ServicesIkaxqrxxzd74-47-1468ocsdmrsas virus vaccine, unspecified formulationMalina Castaneda 361-5026Hoaioz-JzsoeOhio State East Hospital Dig[facility]ive Bujjrk91-48-8217 influenza, injectable, quadrivalent, preservative freeGeorge R Kaftan Work Phone: mg074-1354DZ-Jzrolkzkdi-[place] Work Phone: [phone]) [phone], injectable, madin usha canine kidney, preservative freeGeorge R Kaftan Work Phone: [phone]-Vyqcordgsy-[place] [address] [place] Work Phone: Payers DatePayer CategoryPayerPolicy [id number]-imj [id number] Health InsuranceT[facility] [id number] Health Insurance [id number] 1.2.840.011482.1.13.239.2.7.3.084[id number] [id number] 2.0.1.577165.3.57[id number] 2.0.1.555990.3.57[id number] 2.0.1.970519.3.57[id number] 2.840.1.456510.3.579.2.20771-95-1847Kufowgu3686250 2.0.1.471706.3.57[id number] 2.0.1.144376.3.579.2.88341-47-5150Acfpiue6474902 2.840.1.681895.3.579.2.85359-45-6981Wpvxleh2429981 2.840.1.504306.3.57[id number] 2.840.1.376344.3.579.[id number] 2.840.1.890210.3.579.[id number] 2.840.1.503651.3.579.2.95413-21-1087Gwudqfg7666066 2..1.074471.3.579.2.72690-72-8617Afxxfyk4225774 2..1.880799.3.579.2.95881-76-6483Gaurrww9039396 2..1.289201.3.579.2.[id number] 2.0.1.775535.3.579.[id number] 2.840.1.004208.3.579.2.970604-65-3771Ifgbzzb057796801 2..1.310169.3.579.2.60841-10-4398Miybexq62345582 2.840.1.940527.3.579.2.237770-90-6774Ihaujrs17950732 2.0.1.167003.3.579.2.221232-83-9520Hyefjox276840173 2.840.1.847783.3.57[id number] 2.840.1.400858.3.579.2.45398-19-8186Tghkwnx30644416 2.16.840.1.483699.3.579.2.487643-45-6657Mrdjgds18829899 2.16.840.1.997386.3.579.2.009789-76-8487Yxjeipt94557244 2.16.840.1.589238.3.579.2.468224-25-3683Kwbesbf5069866 2.16.840.1.088782.3.579.2.732717-18-7961Uyhfepj8023910 2..840.1.031694.3.579.2.733422-01-8533Fvutcnp4330150 2.16.840.1.501845.3.579.2.615373-12-7181Achiioq Health [id number] 16-86-9182ZzghxxqKMA706W92628009062VfxhvdiMPF989C9076179-35-0570Gmskbxm96731439206-62-7842UgyzqcdYtbarlb [id number] 2.16.840.1.8024[id number] 2..840.1.797454.3.579.2.531 Social History DateTypeDetailFacilityAssertionTobacco smoking consumption unknown (finding)- [facility] [address] Work Phone: start: 04-11-2022 End: 39-18-0121Dqbakvd smoking status NHISNever smoked tobaccoBON [employer] Phone: start: 04-11-2022 End: 02-46-3155Ocphext use and exposureSmokeless tobacco non-userBON [employer] Phone: start: 30-38-6742Tqnahud intakeLifetime non-drinker (finding)[facility] [employer] Phone: start: 86-78-5728Rcamwxq SDOH Alcohol Jexafkhbq0QUP [facility] MED[facility] CENTERConjuGon Work Phone: start: 10-21-8757Eolxeah SDOH Alcohol Std Zprvgg0JQC [employer] Work Phone: start: 65-58-9849Lwv Assigned At BirthNot on fileYAVAPAI REGIONAL [facility] Qonf Work Phone: start: 04-01-2022 End: 25-61-0784Ybcfizhk to SARS-CoV-2 (event)Not sureYAVAPAI REGIONAL MEDICAL CENTER Qonf Work Phone: start: 02-18-2023 End: 56-14-5193Cru-dyypwnVhn-zobanwHF-Ljvwegyavn-[place] Work Phone: Start: 64-50-2001Gct Assigned At [facility] SoutheasternFeFostoria City HospitalTobacco smoking statusNeMetroHealth [facility] Digestive HealthStart: 02-18-2023 End: 71-19-1869Rcs Assigned At [facility] Hospitaltart: 02-18-2023 End: 24-30-5327Xwxdvno intakeEx-drinker (finding)NOMRanken Jordan Pediatric Specialty HospitalTonew [facility] smoking status NHISTobacco smoking consumption unknownMercy Health Lorain Hospital Work Phone (unformatted): [phone] of tobacco usePassive smokerOhio State Health Systemtart: 04-06-2024 End: 32-76-0229BfaRmlyvs (finding)[facility] Medical Equipment Procedure CodeEquipment CodeEquipment Original TextEquipment IdentifierDates Shoulder arthroscopyANCHOR LABRAL JUGGERKNOTFDAStart: 77-26-6044Aapuwmee arthroscopyANCHOR LABRAL JUGGERKNOTFDAStart: 24-91-8191Mgnkprhi arthroscopy ANCHOR LABRAL JUGGERKNOTFDAStart: 67-61-2344Lygxnfbt arthroscopyANCHOR LABRAL JUGGERKNOTFDAStart: 09-73-8216Lvfxbptp arthroscopyANCHOR LABRAL JUGGERKNOTFDA Start: 98-91-3210Zmzgabtp arthroscopyANCHOR LABRAL JUGGERKNOTFDAStart: 69-60-9145Zowvlsvh arthroscopyANCHOR LABRAL JUGGERKNOTFDAStart: 12-09-2017 Shoulder arthroscopyANCHOR LABRAL JUGGERKNOTFDAStart: 84-18-3467Cdubwhsz arthroscopyANCHOR LABRAL JUGGERKNOTFDAStart: 96-47-2902Yehgzqig arthroscopy ANCHOR LABRAL JUGGERKNOTFDAStart: 12-09-2017 Functional Status QnhlUblvhswbroRwwlkqEarvbace04-53-0578Abrqnql Health Questionnaire 2 item (PHQ- 2) [Reported][facility] WashingtonVbqptiubat83-76-7068Qbityazazq StatusN/AFisher-[facility] Digestive HealthNEGATED: Highlighted rowFunctional performanceFunctional status health issues are not documented DiseaseMG-Pain Management-[place] [id number] Work Phone: Mental Status DateAssessmentResultFacilityNEGATED: Highlighted rowCognitive function [Interpretation]Cognitive status health issues are not documented DiseaseMG-Pain Management-[place] [address] Work Phone: Clinical Notes 07-10-2021 to 12-21-2024 Note Date & QbbmIpauWyrvehot67-07-8096 NoteOrthopedic Surgery 09/20/2024 Little Finger Dip Fusion [...] limit and see her back in 3 months.[facility]10-06-2025 History of Present illness Narrative* Nico Pepper [...] Dose Status atenolol-chlorthalidone (Tenoretic) 50-25 MG tablet [id number] Take 1 tablet by mouth Daily Nico Pepper DO Active ketvjyniag-idnazftpviqnb-wqedixul (Fioricet) 50-300-40 MG capsule [id number] TAKE 1 CAPSULE BY MOUTH EVERY 4 HOURS NEEDED FOR HEADACHES Nico Pepper DO Active estradiol (Estrace) 0.1 MG/GM vaginal cream [id number] Insert twice weekly Winston Hameed MD Active hydrOXYzine pamoate (Vistaril) 25 MG capsule [id number] Take 1 capsule (25 mg) by mouth every 8 (eight) hours if needed for anxiety Nico Pepper DO Active lamoTRIgine (LaMICtal) 200 MG tablet [id number] Take 1 tablet (200 mg) by mouth Daily Nico Pepper DO Active ondansetron ODT (Zofran-ODT) 4 MG disintegrating tablet [id number] DISSOLVE 1 TABLET ON THE TONGUE EVERY 8 HOURS NEEDED Nico Pepper DO Active oxaprozin (Daypro) 600 MG tablet [id number] Take 1 tablet (600 mg) by mouth in the morning and 1 tablet (600 mg) before bedtime. Nico Pepper DO Active oxyCODONE-acetaminophen (Percocet) 5-325 MG tablet [id number] Take 1 tablet by mouth in the morning. Historical ProviderMD Active PARoxetine (Paxil) 30 MG tablet [id number] Take 2 tablets (60 mg) by mouth Daily Nico Pepper DO Active pregabalin (Lyrica) 200 MG capsule [id number] Take 1 capsule (200 mg) by mouth in the morning and 1 capsule (200 mg) before bedtime. Nico Pepper DO Active tiZANidine (Zanaflex) 4 MG tablet [id number] Take 1 tablet (4 mg) by mouth 3 (three) times a day as needed for muscle spasms Nico Pepper DO Active valACYclovir (Valtrex) 500 MG tablet [id number] TAKE 1 TABLET BY MOUTH EVERY MORNING 1 IN THE EVENING& 1 AT BEDTIME FOR 7 DAYS Nico Pepper DO Active Vibegron (Gemtesa) 75 MG tablet [id number] Take 75 mg by mouth Daily Winston Hameed MD Active Review of Systems ?Quick Review Review Full History Edit History Meds - atenolol-chlorthalidone (Tenoretic) 50-25 MG tablet rlhqmitunj-zzjjosnvbumwy-habtuljc (Fioricet) 50-300-40 MG capsule hydrOXYzine pamoate (Vistaril) [...] (200 mg) before bedtime. documented in this encounterMercy Hospital WashingtonFcwpuajmsg90-96-7277 NoteOrthopedic Surgery 09/20/2024 Little Finger Dip Fusion [...] in 6 wks. Cont current restrictions until then.[facility]07-30-2025 NoteOrthopedic Surgery 09/20/2024 Little Finger Dip Fusion [...] 4 wks with xrays of the small finger.[facility]07-14-2025 NotePatient: Tasneem Camarillo Procedure Summary Date: 09/20/24 Room / Location: [address] OR Anesthesia Start: 737 Anesthesia Stop: [...] PACU per anesthesia protocol. No notable events documented.[facility]07-14-2025 Note Patient: Tasneem Camarillo Procedure Information Anesthesia Start Date/Time: 09/20/24737 Procedures: LITTLE FINGER DIP FUSION (Right: Little Finger) RELEASE, TRIGGER FINGER (Right: Little Finger) - C-ARM, MEDARTIS NOTIFIED 09/15 Location: [address] OR Surgeons: Vadim Dorado MD Relevant [...] products. Plan discussed with CAA. Additional Equipment RequestsMartin Memorial Hospital07-14-2025 Note Patient: Tasneem Camarillo Procedure Summary Date: 09/20/24 Room / Location: [address] OR Anesthesia Start: 737 Anesthesia Stop: Procedures: LITTLE FINGER DIP FUSION (Right: Little Finger) RELEASE, TRIGGER FINGER (Right: Little Finger) Diagnosis: Trigger finger, acquired (Trigger finger, acquired [M65.30]) Surgeons: Vadim Dorado MD Responsible Provider: Kristie Lui MD Anesthesia Type: regional ASA Status: Not recorded Anesthesia Post Transport [facility]: face mask Oxygen Flow (L/min): 8 Patient Monitor: direct observation Transport: uneventful Patient condition is: stableMartin Memorial Hospital07-14-2025 Note Peripheral Block Patient location during procedure: pre-op Start time: 09/20/2024 7:25 AM End time: 09/20/2024 7:40 AM Reason for block: primary anesthetic Staffing Performed: anesthesiologist and resident/SPINNER BOX/CAA Anesthesiologist: Kristie Lui MD Resident/SPINNER BOX: Cornelio White MD Preanesthetic Checklist Completed: patient [...] to 100% for the remainder of the procedure.[facility]07-14-2025 NoteNo associated orders from this encounter found during lookback period of 72 hours.[facility]06-09-2025 History of Present illness Narrative* Winston Hameed [...] 4 days, Disp: 6 tablet, Rfl: 0 gayfyrkxte-dantikooclmnv-xxwylvtk (Fioricet) 50-300-40 MG capsule, TAKE 1 CAPSULE [...] benign HYSTERECTOMY 2005 LITHOTRIPSY YEFRI FUNDOPLICATION 2013 [place] MEDICATION MANAG[facility] Bipolar I - ongoing PROMETHAZINE [...] postmenopausal hormonal changes. Patient has been using rhiu-nck-ykhtnyj products to manage symptoms. - Plan: a) [...] portal. Assessment & Plan documented in this encounterMercy Hospital WashingtonNpkxidcvda09-68-2812 History of Present illness Narrative* Winston Hameed [...] 4 days, Disp: 6 tablet, Rfl: 0 dloguvlobg-pwhyooopxiicq-jxxrswog (Fioricet) 50-300-40 MG capsule, TAKE 1 CAPSULE [...] ganglion cyst 2005 Hypertension (CMS/HCC) Hypothyroidism, unspecified (CMS/[facility]) Irritable bowel disease Kidney stones Nerve damage [...] benign HYSTERECTOMY 2005 LITHOTRIPSY YEFRI FUNDOPLICATION 2013 [place] MEDICATION MANAGEMENT Bipolar I - ongoing PROMETHAZINE [...] year Assessment & Plan documented in this encounterMercy Hospital WashingtonLyqbrvjodv82-67-0428 Note Attestation signed by Vadim Dorado MD [...] additional allowance to be added to the claim.[facility]04-05-2025 Radiology Diagnostic study [facility] [place] [address] [place] [address] CT Scan Report Signed Patient: Tasneem Camarillo MR#: [id number] : 1975 Acct:[id number] Age/Sex: 49 / F ADM Date: 5 Loc: ER Room: Type: [facility] ER Attending Dr: Copies to: Yamil Leal [...] Nikolay Zuniga M.D.06/12/2024 6:24 PM Dictation Location: [place] [address] Transcribed By: [facility] 06/12/241823 Dictated By: Nikolay Zuniga MD 06/12/241820 Signed By: 06/12/241823 [facility] Work Phone: 1(760) 974-779803-24-2025 History of Present illness Narrative* Nico Pepper, - 05/31/2024 2:20 PM EDT Images from the original note were not included. SUBJECTIVE: Tasneem Camarillo is a 49 y.o. female presents with chief complaint of ER follow up. Here for ER follow up. [facility] [place] [facility] [place] re headache and eye pain. [...] Flowsheet Row [facility] Information ED, Hospital or Prison Facility Discharge? ED Patient has been contacted within 2 days of being seen in the ED Yes Diagnosis Headache/eye pain Discharge Date 05/25/24 Discharged To: Home Setting Discharge Hospital [facility] Engagement Call Start Time 1314 Admission [...] Wrap Up Additional Comments Pt presented [place] [facility] yesterday for headache/eye pain and some [...] benign HYSTERECTOMY 2005 LITHOTRIPSY YEFRI FUNDOPLICATION 2013 [place] MEDICATION MANAGEMENT Bipolar I - ongoing PROMETHAZINE LEVEL 2010 phenergan SHOULDER ARTHROSCOPY Left 12/2017 TOTAL ABDOMINAL HYSTERECTOMY W/ BILATERAL SALPINGOOPHORECTOMY 2005 Social History: Social Drivers of Health Tobacco Use: Low Risk (04/20/2024) Received from [facility] Patient History Smoking Tobacco Use: Never Smokeless Tobacco Use: Never Passive Exposure: Not on file Alcohol Use: Not At Risk (04/11/2022) Received from [facility] AUDIT-C Frequency of Alcohol Consumption: Never Average Number of Drinks: Patient does not drink Frequency of Binge Drinking: Never Financial Resource Strain: Low Risk (02/26/2022) Received from [facility], [facility] Overall Financial Resource Strain (CARDIA) Difficulty of Paying Living Expenses: Not very hard Food Insecurity: Not on file Transportation Needs: No Transportation Needs (02/26/2022) Received from [facility], [facility] PRAPARE - Transportation Lack of Transportation (Medical): No Lack of Transportation (Non-Medical): No Physical Activity: Not on file Stress: No Stress Concern Present (02/26/2022) Received from [facility], [facility] [place] [facility] [employer] - Occupational Stress Questionnaire Feeling of Stress : Not at all Social Connections: Not on file Intimate Partner Violence: Unknown (11/05/2023) Received from [facility] Humiliation, Afraid, Rape, and Kick questionnaire Fear of Current or Ex-Partner: No Emotionally Abused: Not on file Physically Abused: Not on file Sexually Abused: Not on file Depression: At risk (01/14/2024) Received from [facility] PHQ-2 Patient Health Questionnaire-2 Score: 4 Housing [...] despite treatment. 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 Current Outpatient Medications: atenolol-chlorthalidone (Tenoretic) 50-25 MG tablet, TAKE 1 TABLET BY MOUTH EVERY DAY, Disp: 90 tablet, Rfl: 2 azithromycin (Zithromax) 250 MG tablet, Take 2 tablets on day 1, then take 1 tablet for 4 days by mouth, Disp: 6 tablet, Rfl: 0 ycfhzeqzlvsizxr-jbwtvrydndmsina-VD 30-2-10 MG/5ML syrup, Take 10 mL by mouth 4 (four) times a day as needed for cough or congestion (q6hrs), Disp: 200 mL, Rfl: 0 cdpmxujhwo-ywcmwzniegbuj-finylnsa (Fioricet) 50-300-40 MG capsule, TAKE 1 CAPSULE [...] 21 tablet, Rfl: 1 documented in this encounterMercy Hospital [id number] Radiology Diagnostic study [facility] [place] [address] [place] [address] CT Scan Report Signed Patient: Tasneem Camarillo MR#: [id number] : 1975 Acct:[id number] Age/Sex: 49 / F ADM Date: 5 [...] ACUTE INTRACRANIAL ABNORMALITY. Impression dictated by: Roel Curits Jr., DJermanOJerman05/25/2024 2:41 PM Dictation Location: [place] [address] Transcribed By: [facility] 05/25/24 1441 Dictated By: Roel Curtis Jr, DO 05/25/24 1441 Signed By: 05/25/24 1441 [facility]02-11-2025 NoteOrthopedic Surgery 01/07/2024 Small Finger Hardware [...] she has any troubles in the meantime. [facility]01-28-2025 Evaluation note* Diagnosis Onset Date Resolution Status Admit Date Acute maxillary sinusitis, unspecified acuteJanuary 2024 1:05pm [facility] Work Phone: [phone]) 961-646911-06-2024 NoteOrthopedic Surgery 01/07/2024 Small Finger Hardware Removal [...] see her back in the clinic 3 months.[facility]10-30-2024 Note Patient: Tasneem Camarillo Procedure Summary Date: 01/07/24 Room / Location: [facility] OR [address] [place] [address] OR Anesthesia Start: 1022 Anesthesia Stop: 111 [...] PACU per anesthesia protocol. No notable events documented.[facility]10-30-2024 Note Patient: Tasneem Camarillo Procedure Information Anesthesia Start Date/Time: 01/07/241022 Procedures: Small Finger Hardware Removal (Right: Little Finger) Ring Finger Trigger Release (Right: Ring Finger) - C-Arm, MEDARTIS PLATE AND SCREWS IN Location: [address] OR Surgeons: Vadim Dorado MD Relevant [...] discussed with CAA and resident. Additional Equipment RequestsUnSt. [facility] Note Patient: Tasneem Camarillo Procedure Summary Date: 01/07/24 Room / Location: [facility] OR [address] [place] [address] GIS OR Anesthesia Start: 1023 Anesthesia Stop: Procedures: Small Finger Hardware Removal (Right: Little Finger) Ring Finger Trigger Release (Right: Ring Finger) Diagnosis: Painful orthopaedic hardware (CMS/HCC) (Painful orthopaedic hardware (CMS/HCC) [T84.84XA]) Surgeons: Vadim Dorado MD Responsible Provider: Franklin Nugent MD Anesthesia Type: regional ASA Status: Not recorded Anesthesia Post Transport [facility]: nasal cannula Oxygen Flow (L/min): 3 Patient Monitor: direct observation Transport: uneventful Patient condition is: stableMartin [facility] Hospital10-30-2024 Note Peripheral Block Patient location during procedure: pre-op Start time: 01/07/2024 10:08 AM End time: 01/07/2024 10:23 AM Reason for block: primary anesthetic Staffing Performed: resident/SPINNER BOX/CAA Anesthesiologist: Nathaniel Bhatia MD Resident/SPINNER BOX: José Vee MD Preanesthetic Checklist Completed: patient [...] Heart rate change: no Slow fractionated injection: yesUnSt. [facility] History of Present illness Narrative* PAMELA Rodas [...] 1 tablet for 4 days bymouth - bzirwqvsvljiojs-xpwhibdcrtmpaga-KG 30-2-10 MG/5ML syrup; Take 10 mL by [...] Negative Negative - Positive documented in this encounterMercy Hospital [id number] NoteHNO ID: [id number] Author: NICANOR FERRIS MD Service: ? Author Type: Physician Type: Progress Notes Filed: 07/24/2023 14:31 Note Text: I have read and reviewed the documentation and agree. I wish to add the followingI wish to add the following findings which will be communicated back to the requesting physician. Nicanor Ferris MD [facility] [place] STAFF PHYSICIAN NOTE OF PERSONAL INVOLVEMENT IN [...] Nicanor Ferris MD DATE OF SERVICE: 06/25/[address] [place], [place] [id number] History of Present illness Narrative * Nicanor Ferris MD - 07/24/2023 2:29 PM EDT I have read and reviewed the documentation and agree. I wish to add the followingI wish to add the following findings which will be communicated back to the requesting physician. Nicanor Ferris MD [facility] [place] STAFF PHYSICIAN NOTE OF PERSONAL INVOLVEMENT IN [...] THORACIC SURGERY OUTPATIENT CONSULT NOTE Tasneem Camarillo [id number] Requesting Provider: Self Thoracic Physician: Nicanor Ferris [...] DATE OF EXAM: Jun 25 2023 12:26PM [facility] 0541 - CT CHEST WO IVCON / [...] Recommendation: Consult to Lung Nodule Clinic - [id number] Time Frame: at the discretion of the clinical team. Comments: Follow-up for this incidentally detected lung nodule with PET/CT or Biopsy within 4 weeks, or Chest CT exam in 3 months is recommended. --END OF FINDING-- Associate Software Development Engineer: TARYN Transcribe Date/Time: Jun 25 2023 12:38P Dictated by : TALYA MCCORMACK MD This examination was interpreted and the report reviewed and electronically signed by: TALYA MCCORMACK MD on Jun 25 2023 12:44PM EST I have personally reviewed the following images/data: CT scan, upper GI Outside Paper Medical Records Review personally performed by: documented in this encounterMercy Health Lorain Hospital05-14-2024 NoteHNO ID: [id number] Author: ?, ?, ? Service: ? Author Type: ? Type: Progress Notes Filed: 07/22/2023 14:09 Note Text: Incidental Lung Nodule Enrollment Outreach attempt: 3rd Attempt Outreach status: Complete Enrolled in Lung Nodule program: No Declined reason: Other Lung Nodule Program Location: [facility]05-14-2024 History of Present illness Narrative* Josephine Culver - 07/22/2023 2:08 PM EDT Incidental Lung Nodule Enrollment Outreach attempt: 3rd Attempt Outreach status: Complete Enrolled in Lung Nodule program: No Declined reason: Other Lung Nodule Program Location: [place] documented in this encounterMercy Health Lorain Hospital05-14-2024 NotePatient Outreach (MIRYAM) TASNEEM CAMARILLO ([id number]) 1975 F Date Time Provider Department 07/22/23 JOSEPHINE CULVER During your visit today, we recorded the following information about you: Josephine Culver 07/22/2023 2:09 PM Signed Incidental Lung Nodule Enrollment Outreach attempt: 3rd Attempt Outreach status: Complete Enrolled in Lung Nodule program: No Declined reason: Other Lung Nodule Program Location: [place] Allergies As of Date: 07/22/2023 Noted Allergy [...] Text Encounter Status:Closed by JOSEPHINE CULVER on 07/22/23[facility]05-02-2024 NotePatient Outreach (MIRYAM) TASNEEM CAMARILLO ([id number]) 1975 F Date Time Provider Department 07/10/23 JOSEPHINE CULVER During your visit today, we recorded the following information about you: Josephine Culver 07/10/2023 9:04 AM Signed Incidental Lung Nodule Enrollment Outreach attempt: 2nd Attempt Outreach status: Complete Enrolled in Lung Nodule program: Referred Lung Nodule outreach: Needs outreach Lung Nodule Program Location: [place] Two letter attempts Allergies As of Date: [...] Text Encounter Status:Closed by JOSEPHINE CULVER on 07/10/23[facility] 07-10-2023 NoteHNO ID: [id number] Author: ?, ?, ? Service: ? Author Type: ? Type: Progress Notes Filed: 07/10/2023 09:04 Note Text: Incidental Lung Nodule Enrollment Outreach attempt: 2nd Attempt Outreach status: Complete Enrolled in Lung Nodule program: Referred Lung Nodule outreach: Needs outreach Lung Nodule Program Location: [place] [facility] History of Present illness Narrative* Josephine Culver - 07/10/2023 9:03 AM EDT Incidental Lung Nodule Enrollment Outreach attempt: 2nd Attempt Outreach status: Complete Enrolled in Lung Nodule program: Referred Lung Nodule outreach: Needs outreach Lung Nodule Program Location: [place] Two letter attempts documented in this encounterMercy Health Lorain Hospital04-24-2024 NoteHNO ID: [id number] Author: MALIA MEADOWS PA-C Service: ? Author Type: Physician Tumbler Drier Operator Type: Progress Notes Filed: 07/02/2023 15:44 Note Text: Incidental Lung Nodule Enrollment Outreach attempt: 1st Attempt Outreach status: Left message Enrolled in Lung Nodule program: Referred Lung Nodule outreach: Needs outreach Lung Nodule Program Location: [place] Left Message to call back to schedule. Big nodule letter sent. [facility] History of Present illness Narrative* Malia Meadows PA-C - 07/02/2023 3:38 PM EDT Incidental Lung Nodule Enrollment Outreach attempt: 1st Attempt Outreach status: Left message Enrolled in Lung Nodule program: Referred Lung Nodule outreach: Needs outreach Lung Nodule Program Location: [place] Left Message to call back to schedule. Big nodule letter sent. Malia Meadows PA-C documented in this encounterMercy Health Lorain Hospital04-24-2024 NoteHNO ID: [id number] Author: AIDEE VILLAVICENCIO APRN.MANAGER RETENTION Service: ? Author Type: Nurse Practitioner Type: Progress Notes Filed: 07/02/2023 12:46 Note Text: [facility] - OUTPATIENT THORACIC SURGERY CLINIC NOTE PT NAME: Tasneem Camarillo [facility] NO: [id number] THORACIC SURGEON: Nicanor Ferris M.D. DATE OF [...] Local GI for symptom management Aidee Villavicencio APRN.[facility]04-24-2024 NotePatient Outreach (PMNA11) TASNEEM CAMARILLO ([id number]) 1975 F Date Time Provider Department 07/02/23 MALIA MEADOWS PMNA11 During your visit today, we recorded the following information about you: Malia Meadows PA-C 07/02/2023 3:44 PM Signed Incidental Lung Nodule Enrollment Outreach attempt: 1st Attempt Outreach status: Left message Enrolled in Lung Nodule program: Referred Lung Nodule outreach: Needs outreach Lung Nodule Program Location: [place] Left Message to call back to schedule. [...] Text Encounter Status:Closed by MALIA MEADOWS on 07/02/23[facility]04-24-2024 History of Present illness Narrative* Aidee Villavicencio, KAILA.MANAGER RETENTION - 07/02/2023 12:38 PM EDT [facility] - OUTPATIENT THORACIC SURGERY CLINIC NOTE PT NAME: Tasneem Camarillo [facility] NO: [id number] THORACIC SURGEON: Nicanor Ferris M.D. DATE OF [...] Local GI for symptom management Aidee Villavicencio APRN.MANAGER RETENTION documented in this encounterMercy Health Lorain Hospital04-24-2024 NoteQ3 Patient Name: Tasneem Camarillo Procedure Date: 07/02/2023 8:43 AM Date of : 1975 Admit Type: Outpatient Age: 48 Gender: Female Note Status: Finalized Attending MD: Nicanor Ferris MD, [id number] Procedure: Upper GI endoscopy Indications: Dysphagia Providers: [...] the patient. Procedure Code(s): --- Professional --- 55048, Esophagogastroduodenoscopy, flexible, transoral; with biopsy, single or multiple Diagnosis Code(s): --- Professional --- Q39.9, Congenital malformation of esophagus, unspecified K22.4, Dyskinesia of esophagus K29.70, Gastritis, unspecified, without bleeding R13.10, Dysphagia, unspecified CPT copyright 2020 [place] [employer]. All rights reserved. Attending Participation: I personally performed the entire procedure without the assistance of a fellow, resident or surgical instrument repair specialist. Scope In: 8:57:06 AM Scope Out: 9:06:50 AM MD Nicanor Purdy MD 07/02/2023 9:13:36 AM This report has been signed electronically by Nicanor Ferris MD Number of Addenda: 0 Note Initiated On: 07/02/2023 8:43 [facility]04-24-2024 Nurse Note* Alisha Canela LPN - 07/02/2023 [...] MATERIAL: Procedure Discharge Instructions REFERRAL (RECOMMENDATION): None [facility]04-24-2024 Nurse Note* Alisha Canela LPN - 07/02/2023 [...] to help me obtain IV access? Thanks! Caasndra 0825: Dr. Jarrell paged: Patient Tasneem Camarillo in pre bed 16: Patient ready for US IV access, thanks! Casandra Sheridan RN BSN documented in this encounterMercy Health Lorain Hospital04-24-2024 NoteQ3 Patient Name: Tasneem Camarillo Procedure Date: 07/02/2023 8:43 AM Date of : 1975 Admit Type: Outpatient Age: 48 Gender: Female Note Status: Finalized Attending MD: Nicanor Ferris MD, [id number] Procedure: Upper GI endoscopy Indications: Dysphagia Providers: [...] contact number available for (more content not included)...[id number] Nurse Note* Taty Sheridan RN - 07/02/2023 [...] Taty Sheridan RN BSN In Department: GASTROENTEROLOGY [facility]04-24-2024 Nurse Note* Taty Sheridan RN - 07/02/2023 8:12 AM EDT 0812: Dr. Madeline Jarrell paged: Patient Tasneem Camarillo in pre bed 16: Patient states she is US only IV access. Are you able to help me obtain IV access? Thanks! Casandra 5175: Dr. Jarrell paged: Patient Tasneem Camarillo in pre bed 16: Patient ready for US IV access, thanks! Casandra Sheridan INOCULATOR [facility]04-17-2024 NoteHNO ID: [id number] Author: RACHANA PHAM MD Service: ? Author Type: Resident Type: Progress Notes Filed: 07/24/2023 14:31 Note Text: [facility] THORACIC SURGERY OUTPATIENT CONSULT NOTE Tasneem Camarillo [id number] Requesting Provider: Self Thoracic Physician: Nicanor Ferris [...] DATE OF EXAM: Jun 25 2023 12:26PM [facility] 0541 - CT CHEST WO IVCON / [...] previous imaging if a (more content not included)...[facility]04-17-2024 NoteHNO ID: [id number] Author: KYMBERLY PALMA RT(Selwyn) Service: Radiology Author [...] PATIENT PRESENTS WITH AN IMPLANTABLE OR ATTACHED SPINNER OPERATOR: No RADIOLOGY DEPARTMENT: CT; Exam(s) Completed: Chest PERIPHERAL IV DATA: Not applicable SIGNED BY: RT Trinh(R) June 25, 2023 12:22 [facility]04-17-2024 History of Present illness Narrative* Kymberly Palma [...] PATIENT PRESENTS WITH AN IMPLANTABLE OR ATTACHED SPINNER OPERATOR: No RADIOLOGY DEPARTMENT: CT; Exam(s) Completed: Chest PERIPHERAL IV DATA: Not applicable SIGNED BY: RT Trinh(R) June 25, 2023 12:22 PM documented in this encounterMercy Health Lorain Hospital03-14-2024 Miscellaneous Notes* Telephone Encounter - Liz Cho - 05/22/2023 8:52 AM EDT received outside [facility]routing to [facility] for review. Liz Hines * Telephone Encounter - Liz Cho - 05/20/2023 12:04 PM EDT Received a call back from [facility] in [place] on records requested (operative reports from 2013= Yefri fundoplication). Edith from the [place] [facility] dept was unable to fax the records because the pt last name didn't match. I called our patient and left a requesting a call back with that information to proceed with getting the records needed for the surgeon. Liz Lake Director Of Integrated Marketing documented in this encounterMercy Health Lorain Hospital03-11-2024 Miscellaneous Notes* Telephone Encounter - Elana Coffman RN - 05/19/2023 10:36 AM EDT Images from the original note were not included. Thoracic Surgery Consultation - review of records for appointment scheduling Patient is being referred to Nicanor Ferris MD, PhD by for Epigastric Pain, Outside hospital records scanned Procedures: Yefri Fundoplication [place] op report 2013 [facility] ) - ask Ad Clerk to obtain Imaging CT (chest/abd requested) mri leena 04/28/2023 UGI: 04/23/2023 esophagram Cardiopulmonary Testing PFT's/Six: Cardiac: Office Notes/Consults 05/13/23 [facility] History of: No family history on file. No past medical history on file. No past surgical history on file. Request consult with dr barrnigton ordoñez ct chest /abd Elana Coffman, JAGDISH [...] office for scheduling. Please call pt at [phone]. Patient was informed consultation could be at [place] or [place]: No Patient Registration: Registration complete/updated: no Insurance card(s) scanned in [facility] with in the past year: No Pt's [employer] is inactive. Ok to communicate to pt via [employer] not asked Medical Records: Records in [facility] (internal [facility] records): No Imaging in [facility] (internal [facility] records): No Care [...] for triage Liz Hines documented in this encounterMercy Health Lorain Hospital01-29-2024 Hospital Discharge instructions Patient Education 04/07/2023 10:44:58 [...] including vitamins, herbs, eye drops, creams, and wfxt-gcc-bzvccuo medicines. Any problems you or family members [...] provider tells you to take them. Taking jorf-lyl-gcrjwrk medicines, vitamins, herbs, and supplements. General instructions [...] provider. Document Revised: 02/18/2022 Document Reviewed: 10/17/2021 [employer] Patient Education 2022 [employer]. Follow Up Care 03/31/2023 10:10:29 With:Malina Castaneda CNP Address: When:1 to 2 weeks Comments:Following EGD. [facility] [id number] NotePROCEDURE: XR FINGER MIN 2 VIEWS HISTORY: [...] authenticated by: JUAN M SARGENT Date: 2021-10-31 15:15[facility]08-24-2022 NotePROCEDURE: XR FINGER MIN 2 VIEWS [...] authenticated by: JUAN M SARGENT Date: 2021-10-31 13:08[facility]08-11-2022 NoteCONSULTATION CONSULTATION DATE: 10/18/2021 HISTORY OF [...] and agrees with the plan of care.[facility] [id number] NoteCONSULTATION CONSULTATION DATE: 09/06/2021 This is a [...] followed up in the clinic post procedure. [facility] Signed and Approved by: CHRISTIAN WINN . 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 The patient currently takes Oxaprozin 600 mg [...] magnesium glycinate q.p.m. CC: Juancarlos Pepper D.O. [facility] Signed and Approved by: DR SCAR LAZARO . 07/17/2021 10:05:00[facility] Future Appointments Appointment Date:04/15/2023 08:00:00 AM Scheduled Provider: Location:.ULTRASOUND Appointment Type:US Abdominal/Pelvis (FT) Appointment Date:04/16/2023 08:30:00 AM Scheduled Provider: Location:[facility] Appointment Type:Surgery FT Appointment Date:04/23/2023 09:30:00 AM Scheduled Provider: Location:.XRAY Appointment Type:XR MBS Adult (FT) Appointment Date:04/23/2023 10:00:00 AM Scheduled Provider: Location:.XRAY Appointment Type:XR Esophagus/Upper GI/Small Bowel (FT) Future Scheduled Tests Radiology* US Liver 04/15/23 * XR Esophagus 04/23/23 * XR Adult Swallowing Function w/ Video: Evaluate Pt, Develop a Plan of Care & Implement Plan 04/23/23 [facility] Evaluation + Plan note [...] Plan of Care & Implement Plan [facility]23[facility]23 [facility] Future Appointments Appointment Date:04/28/2023 05:00:00 PM Scheduled Provider: Location:.MRI Appointment Type:MRI Unlisted Procedures (FT) Future Scheduled Tests Radiology* MRI Cholangiogram Pancreatography (mrcp) 04/28/23 [facility]* Diagnosis Constipation, unspecified constipation type- Primary Kidney stone Calculus of kidney documented in this encounter [facility] Work Phone: evaluation noteNo assessment information available [facility] Work Phone: Evaluation note* Diagnosis Complex regional pain syndrome type 1, affecting unspecified site Disorder of intervertebral disc of lumbar spine Chronic pain syndrome Neuropathy Mononeuritis of unspecified site documented in this encounter [facility]* Diagnosis Epigastric abdominal pain- Primary Abdominal pain, epigastric [facility] Diagnosis Epigastric abdominal pain Abdominal pain, epigastric documented in this encounter [facility]* Diagnosis Epigastric abdominal pain- Primary Abdominal pain, epigastric documented in this [facility]* Diagnosis Epigastric abdominal pain Abdominal pain, epigastric S/P Yefri fundoplication (without gastrostomy tube) procedure Follow-up examination, following unspecified surgery Hypertension, unspecified type documented in this encounter [facility]* Diagnosis Epigastric abdominal pain- Primary Abdominal [...] Diagnosis Bipolar affective disorder, remission status unspecified ([facility]) Anxiety and depression ([facility]) [facility] Diagnosis Dizzy spells- Primary Dizziness and giddiness Bipolar disorder, unspecified (CMS/HCC) Bipolar disorder, unspecified Chronic kidney disease, stage 3b (HCC) (CMS/[facility]) Complex regional pain syndrome type 1, affecting unspecified site Disorder of intervertebral disc of lumbar spine Chronic pain syndrome Neuropathy Mononeuritis of unspecified site Acute recurrent maxillary sinusitis Urinary incontinence, unspecified type documented [facility] encounter [facility]* Diagnosis Bipolar affective disorder, remission status unspecified ([facility]) documented in this encounter [facility]* [...] [facility] and ultimately underwent a surgical release. [...] digit was both fractured and dislocated.-[facility] Work Phone: History of Present illness [...] She presents today for ongoing evaluation.-[facility] Work Phone: History of Present illness NarrativePatient [...] to improve functional use of hand. [facility] Work Phone: Hospital course Narrative No data available for this section [facility] Hospital Discharge instructions* Attachments The following attachments cannot be sent through Care Everywhere. * Kidney Stone ([place]) * Constipation (Citizen Of [place]) documented in this encounterB[facility] Work Phone: Hospital Discharge instructions Additional Instructions Follow-up with your primary care doctor Return to the ED if develop worsening [facility] or [facility] Work Phone: Hospital Discharge instructions Additional Instructions Follow-up gastroenterology as soon as possible call Friday We will increase your Protonix to 2 times a day and continue Carafate Return if symptoms are worseSt[facility] Work Phone: Hospital Discharge instructions No data available for this section [facility] Additional Instructions Follow-up with your primary care doctor Return to develop worsening [facility] Work Phone: Progress note No data available for this section [facility] Reason for referral (narrative)* Outpatient Procedure (Routine) - Pending ReviewSpecialtyDiagnoses / ProceduresReferred By Contact [facility] [place] Diagnoses Epigastric abdominal pain Procedures EGD DIAGNOSTIC ESOPHAGOGASTRODUODENOSCOPY TRANSORAL DIAGNOSTIC Nicanor Ferris MD [address] [place] [address] Digest[facility] [place] [address] [place] [address] Referral IDStatusReasonStart DateExpiration DateVisits RequestedVisits [id number] Review Auto-Generated Referral * MRI/CT (Routine) - Pending ReviewSpecialtyDiagnoses / ProceduresReferred By ContactReferred To ContactCT IMAGING Diagnoses Epigastric abdominal pain Procedures CT ABDOMEN WO IVCON CT ABDOMEN W/O CONTRAST Nicanor Ferris MD [address] [place] [address] Ct [facility] [place] [address] Referral IDStatusReasonStart DateExpiration DateVisits RequestedVisits [id number] Review Auto-Generated Referral * MRI/CT (Routine) - Pending ReviewSpecialtyDiagnoses / ProceduresReferred By ContactReferred To ContactCT IMAGING Diagnoses Epigastric abdominal pain Procedures CT CHEST WO IVCON DIAGNOSTIC COMPUTED TOMOGRAPHY THORAX W/O CNTRST Nicanor Ferris MD [address] [place] [address] Ct [facility] [place] [address] Referral IDStatusReasonStart DateExpiration DateVisits RequestedVisits [id number] Review Auto-Generated Referral [facility] for referral (narrative)* Outpatient Procedure (Routine) - ClosedSpecialtyDiagnoses / ProceduresReferred By ContactReferred To [facility] [place] Diagnoses Epigastric abdominal pain Procedures EGD DIAGNOSTIC ESOPHAGOGASTRODUODENOSCOPY TRANSORAL DIAGNOSTIC Nicanor Ferris MD [address] [place] [address] [address] Ref[facility]Status[facility] DateExpiration DateVisits RequestedVisits [id number] Auto-Generated Referral [facility] for visit Narrative* Initial Evaluation, Evaluation and Treatment. * Reason for Referral: ROM small finger PIP. * Referred by Meli Bravo PA-C. [facility] Phone: [facility] Narrative* Outpatient Procedure (Routine) - ClosedSpecialtyDiagnoses / ProceduresReferred By ContactReferred To [facility] [place] Diagnoses Epigastric abdominal pain Procedures EGD DIAGNOSTIC ESOPHAGOGASTRODUODENOSCOPY TRANSORAL DIAGNOSTIC Nicanor Ferris MD [address] [place] [address] [address] Referral IDStatusReasonMeno DateExpiration DateVisits RequestedVisits [id number] Auto-Generated Referral [facility] Family History No Family History Records Found [...] THORAX W/O CNTRST Nicanor Ferris MD [address] [place] [address] [address] [facility] [place] [address] Referral IDStatusReasonStart DateExpiration DateVisits RequestedVisits [id number] Auto-Generated Referral Additional Source Comments INFORMATION SOURCE (unrecogn ized section and content) DATE CREATED AUTHOR 11/14/2021 [facility] DATE CREATED AUTHOR AUTHOR'S ORGANIZ ATION 01/03/2022 [facility] DATE CREATED AUTHOR AUTHOR'S ORGANIZ ATION 04/12/2022 [facility] DATE CREATED AUTHOR AUTHOR'S ORGANIZ ATION 06/14/2022 [facility] DATE CREATED AUTHOR AUTHOR'S ORGANIZ ATION 07/11/2022 [facility] DATE CREATED AUTHOR AUTHOR'S ORGANIZ ATION 09/24/2022 [facility] DATE CREATED AUTHOR AUTHOR'S ORGANIZ ATION 09/26/2022 [facility] DATE CREATED AUTHOR AUTHOR'S ORGANIZ ATION 10/28/2022 [facility] DATE CREATED AUTHOR AUTHOR'S ORGANIZ ATION 10/31/2022 [facility] DATE CREATED AUTHOR AUTHOR'S ORGANIZ ATION 07/24/2023 [facility] DATE CREATED AUTHOR AUTHOR'S ORGANIZ ATION 06/30/2024 [facility] DATE CREATED AUTHOR AUTHOR'S ORGANIZ ATION 08/16/[address] [facility] DATE CREATED AUTHOR AUTHOR'S ORGANIZ ATION 11/23/2024 [facility] DATE CREATED AUTHOR AUTHOR'S ORGANIZ ATION 12/15/2024 [facility] DATE CREATED AUTHOR AUTHOR'S ORGANIZ ATION 12/28/2024 [facility] Reason for Visit (unrecogniz ed section and content) ReasonCommentsFlank PainRight lower abdReasonOnset DateCommentsMed Refill 4ReasonCommentsExternal Referrals/resourcesReasonCommentsRequest Outside Medical RecordsReceived Outside Medical RecordsSpecialtyDiagnoses / ProceduresReferred By ContactReferred To ContactCT IMAGING Diagnoses Epigastric abdominal pain Procedures CT CHEST WO IVCON DIAGNOSTIC COMPUTED TOMOGRAPHY THORAX W/O CNTRST Nicanor Ferris MD [address] [place] [address] Ct Imaging [facility] Referral IDStatusReasonStart DateExpiration DateVisits RequestedVisits [id number] Auto-Generated Referral [id number] RetentionPt presents today for urinary retention. Pt [...] drops but this hasn'tseemed to help.ReasonOnset DateCommentsMed Abliqu494ReasonComments Med RefillReasonOnset DateCommentsMed Ypgett2201/28/2024easonOnset DateComments Med Ugyrhs3901/25/2024easonOnset DateCommentsMed Jpoyoq7011/18/2023easonOnset Date CommentsMed Jxypsk7502/26/2024easonOnset DateCommentsMed Gdijcz7902/26/2024eason Onset DateCommentsMed Iqcbbx8504/01/2024ReasonOnset DateCommentsMed Refill 05/03/2024ReasonOnset DateCommentsMed Mdnuls5505/05/2024ReasonOnset DateComments Med Saamvh9507/13/2024ReasonCommentsBladder ProblemReasonCommentsFollow-upPatient present for follow up following in house [place]. Patient denies any issues or complaints.ReasonOnset DateCommentsMed Kgtrcy9009/07/2024 Ordered Prescriptions (unrec ognized section and content) [...] Team MemberRelationshipSpecialtyStart DateEnd Date Eloisa Pepper MD [facility] [address] [place] [address] PCP - General04/11/22 Team Status: Active Member [...] DateEnd Date Nico Pepper DO [address] [place] [address] PCP - GeneralCompass Memorial Healthcarely Medicine08/15/22Team MemberRelationshipSpecialtyStart DateEnd Date Nico Pepper Jr., [address] [address] PCP - GeneralFaally Medicine05/19/23 Malina Castaneda, MANAGER RETENTION [facility] [place] [address] ReferringFamily Medicine05/19/23Team MemberRelationshipSpecialtyStart DateEnd Date Nico Pepper Jr., DO [address] [place] [address] PCP - GeneralFamily Medicine05/19/23 Malina Castaneda, MANAGER RETENTION [address] [place] [address] ReferringFamily Medicine05/19/23Team MemberRelationshipSpecialtyStart DateEnd Date Nico Pepper Jr., DO [address] [place] [address] PCP - GeneralFamily Medicine05/19/23 Malina Castaneda, MANAGER RETENTION [address] [place] [address] ReferringFamily Medicine05/19/23Team MemberRelationshipSpecialtyStart DateEnd Date Nico Pepper Jr., DO [address] [place] [address] PCP - GeneralFamily Medicine05/19/23 Joan Castanedah, MANAGER RETENTION [address] [place] [address] ReferringFamily Medicine05/19/23Team MemberRelationshipSpecialtyStart DateEnd Date Nico Pepper Jr., DO [address] [place] [address] PCP - GeneralFamily Medicine3/11/24 Malina Castaneda, MANAGER RETENTION [address] [place] [address] ReferringFamily Medicine05/19/23Team MemberRelationshipSpecialtyStart DateEnd Date Nico Pepper Jr., DO [address] [place] [address] PCP - GeneralFamily Medicine05/19/23 Malina Castaneda, MANAGER RETENTION [address] [place] [address] Referringmily Medicine05/19/23Team MemberRelationshipSpecialtyStart DateEnd Date Nico Pepper Jr., DO [address] [place] [address] PCP - GeneralFamily Medicine05/19/23 Malina Castaneda, MANAGER RETENTION [address] [place] [address] ReferringFamily Medicine05/19/23Team MemberRelationshipSpecialtyStart DateEnd Date Nico Pepper Jr., DO [address] [place] [address] PCP - GeneralFamily Medicine05/19/23 Malina Castaneda, MANAGER RETENTION [address] [place] [address] ReferringFamily Medicine05/19/23Team MemberRelationshipSpecialtyStart DateEnd Date Nico Pepper, DO [address] [place] [address] PCP - [facility] Medicine08/15/22Team MemberRelationshipSpecialtyStart DateEnd Date Nico Pepper, DO [address] [place] [address] PCP - [facility] Medicine08/15/22Team MemberRelationshipSpecialtyStart DateEnd Date Nico Pepper, DO [address] [place] [address] PCP - [facility]08/15/22 Nico Pepper, DO [address] [place] [address] PCP - [facility] [place] Gqhsevmoce38/1/2312Te MemberRelationshipSpecialty Start DateEnd Date Nico Pepper, DO [address] [place] [address] PCP - [facility] Medicine08/15/22 Nico Pepper, DO [address] [place] [address] PCP - [facility] [place] Rdrqhuhigd48/1/2312Te MemberRelationshipSpecialty Start DateEnd Date Nico Pepper, DO [address] [place] [address] PCP - [facility] Medicine08/15/22Te MemberRelationshipSpecialtyStart DateEnd Date Nico Pepper, DO [address] [place] [address] PCP - [facility] Medicine08/15/22Te MemberRelationshipSpecialtyStart DateEnd Date Nico Pepper DO [address] [place] [address] PCP - [facility]08/15/22Te MemberRelationshipSpecialtyStart DateEnd Date Nico Pepper DO [address] [place] [address] PCP - [facility]08/15/22 Roxana Vicente, PA [address] [place] [address] PCP - [facility] [place] Vwbejhshxf04/1/2312 MemberRelationshipSpecialty Start DateEnd Date Nico Pepper DO [address] [place] [address] PCP - [facility]08/15/22 Roxana Vicente, PA [address] [place] [address] PCP - [facility] [place] Dottevlgiy35/1/2312Te MemberRelationshipSpecialty Start DateEnd Date Nico Pepper, DO [address] [place] [address] PCP - [facility]08/15/22 Roxana Vicente, PA [address] [place] [address] PCP - [facility] [place] Bxjszdrngl62/1/ Team Status: Inactive Member Role Status Dates Juancarlos Pepper DO Primary Care Provider Active Start: April 06, 2024 End: April 06, 2024Dilcia Gimenez ProviderActiveStart: April 06, 2024 End: April 06, 2024Team MemberRelationshipSpecialtyStart DateEnd Date Nico Pepper DO [address] [place] [address] PCP - [facility] Medicine08/15/22 Roxana Vicente, PA [address] [place] [address] PCP - [facility] [place] Usawvhwkjy58/1/ Team Status: Inactive Member Role Status Dates Juancarlos Pepper DO Primary Care Provider Active Start: May 25, 2024 End: May 25, 2024Consuelo Salgado ProviderActiveStart: May 25, 2024 End: May 25, 2024Team MemberRelationshipSpecialtyStart DateEnd Date Nico Pepper DO [address] [place] [address] PCP - [facility] Medicine08/15/22 Roxana Vicente, PA [address] [place] [address] PCP - [facility] [place] Jkunjmviqi26/1/2312Team MemberRelationshipSpecialty Start DateEnd Date Nico Pepper DO [address] [place] [address] PCP - [facility] Medicine08/15/22 Roxana Vicente, PA [address] [place] [address] PCP - [facility] [place] Zjshejpojh60/1/ Team Status: Inactive Member Role Status Dates Juancarlos Pepper DO Primary Care Provider Active Start: June 12, 2024 End: June 12, 2024Fabiano Penacy ProviderActiveStart: June 12, 2024 End: June 12, 2024Team MemberRelationshipSpecialtyStart DateEnd Date Nico Pepper, [address] [place] [address] PCP - [facility] Medicine08/15/22 Nico Pepper, [address] [place] [address] PCP - [facility] [place] Gkqdunwiwi78/1/2312Team MemberRelationshipSpecialty Start DateEnd Date Nico Pepper DO [address] [place] [address] PCP - [facility]08/15/22 Nico Pepper, [address] [place] [address] PCP - [facility] [place] Bsbaufbozu87/1/2312Team MemberRelationshipSpecialty Start DateEnd Date Nico Pepper, [address] [place] [address] PCP - [facility]08/15/22 Nico Pepper DO [address] [place] [address] PCP - [facility] [place] Bqiayvflhi19/1/2312Team MemberRelationshipSpecialty Start DateEnd Date Nico Pepper, [address] [place] [address] PCP - [facility] Medicine08/15/22 Nico Pepper DO [address] [place] [address] PCP - [facility] [place] Aduydvukbd03/1/2312Te MemberRelationshipSpecialty Start DateEnd Date Nico Pepper DO [address] [place] [address] PCP - [facility]08/15/22 Nico Pepper DO [address] [place] [address] PCP - Medical [facility]02/08/2312Te MemberRelationshipSpecialty Start DateEnd Date Nico Pepper DO [address] [place] [address] PCP - [facility]08/15/22 Nico Pepper DO [address] [place] [address] PCP - Medical [facility]02/08/2312Te MemberRelationshipSpecialty Start DateEnd Date Nico Pepper, [address] [place] [address] PCP - [facility]08/15/22 Nico Pepper DO [address] [place] [address] PCP - [facility] [place] Zrxguuggpc08/1/2312Team MemberRelationshipSpecialty Start DateEnd Date Nico Pepper, DO [address] [place] [address] PCP - Generalmily Medicine08/15/22 Nico Pepper, DO [address] [place] [address] PCP - [facility] [place] Rrulkbuupm96/1/2312Team MemberRelationshipSpecialty Start DateEnd Date Nico Pepper, DO [address] [place] [address] PCP - [facility]08/15/22Team MemberRelationshipSpecialtyStart DateEnd Date Nico Pepper, DO [address] [place] [address] PCP - [facility]08/15/22 Goals (unrecognized section and content) Goals may [...] or prosecute any alcohol or drug abuse patient.[facility] HospitalIn the event this information is protected by the Federal Confidentiality of Alcohol and Drug Abuse Patient Records regulations: The Federal rules restrict any use of the information to criminally investigate or prosecute any alcohol or drug abuse patient.[facility] HospitalIn the event this information is protected by the Federal Confidentiality of Alcohol and Drug Abuse Patient Records regulations: The Federal rules restrict any use of the information to criminally investigate or prosecute any alcohol or drug abuse patient.[facility] HospitalIn the event this information is protected by the Federal Confidentiality of Alcohol and Drug Abuse Patient Records regulations: The Federal rules restrict any use of the information to criminally investigate or prosecute any alcohol or drug abuse patient.[facility] HospitalIn the event this information is protected by the Federal Confidentiality of Alcohol and Drug Abuse Patient Records regulations: The Federal rules restrict any use of the information to criminally investigate or prosecute any alcohol or drug abuse patient.[facility] HospitalIn the event this information is protected by the Federal Confidentiality of Alcohol and Drug Abuse Patient Records regulations: The Federal rules restrict any use of the information to criminally investigate or prosecute any alcohol or drug abuse patient.[facility] HospitalIn the event this information is protected by the Federal Confidentiality of Alcohol and Drug Abuse Patient Records regulations: The Federal rules restrict any use of the information to criminally investigate or prosecute any alcohol or drug abuse patient.[facility] HospitalIn the event this information is protected by the Federal Confidentiality of Alcohol and Drug Abuse Patient Records regulations: The Federal rules restrict any use of the information to criminally investigate or prosecute any alcohol or drug abuse patient.[facility] HospitalIn the event this information is protected by the Federal Confidentiality of Alcohol and Drug Abuse Patient Records regulations: The Federal rules restrict any use of the information to criminally investigate or prosecute any alcohol or drug abuse patient.[facility] HospitalIn the event this information is protected by the Federal Confidentiality of Alcohol and Drug Abuse Patient Records regulations: The Federal rules restrict any use of the information to criminally investigate or prosecute any alcohol or drug abuse patient.[facility] FOR RECORDS PERTAINING TO PATIENTS WHO [...] BE BASED ON THE PRIMARY CLINICAL RECORDS. [facility] [employer] [facility]. provides no warranty or guarantee of the accuracy or completeness of information in this document.
--- NOTE | 2025-01-26 11:37 | PM.CN ---
Consult Note: HPI Data of Consult Patient: known to practice within the last 3 years Requesting Physician: An Reynoso NP Primary Care Provider: Ryan ORTIZ Consult Narrative Reason for consult: f/u Narrative: Tasneem Camarillo a pleasant 49 year old female presents for evaluation of low back and SIJ pain. longstanding hx of low back and SIJ pain secondary to lumbar spondylosis and sacroiliitis. pt has failed to benefit from > 6 weeks of PT and provider guided HEP, heat, ice, tylenol, NSAIDs. utilizes lyrica 200mg BID, percocet 5-325mg daily-BID prn for moderate to severe pain, zanaflex, oxaprozin prn without side effects. recently completed lumbar MRI with results below. has not been able to proceed with interventional therapy as she is without insurance. pain today 7/10 increasing to 10/10 in low back and BLE, throbbing stabbing pain. pain increased with twisting, standing, walking, bending, stairs, activity, sleep, sitting. cc:: CC: An Reynoso NP Review of Systems ROS Musculoskeletal Reports: back pain and extremity pain PFSH PFSH Social History Smoking status: Never smoker Little interest or pleasure in doing things: not at all Feeling down, depressed, or hopeless: not at all Meds Home Medications and Allergies Home Medications ?Medication ?Instructions ?Recorded ?Confirmed ?Type atenolol 50 mg-chlorthalidone 25 1 tab PO DAILY 08/12/22 08/09/24 History mg tablet keqtzvgogl-czwyvdzottqur-zyjd PO .Q4 08/12/22 History lamotrigine 200 mg tablet 200 mg PO DAILY 08/12/22 08/09/24 History ondansetron 4 mg disintegrating 4 mg PO Q6H 08/12/22 08/09/24 History tablet oxaprozin 600 mg tablet 600 mg PO BID 08/12/22 08/09/24 History oxycodone-acetaminophen 5 mg-325 1 tab PO DAILY 08/12/22 08/09/24 History mg tablet tizanidine 4 mg tablet 4 mg PO .QHS 08/12/22 08/09/24 History naloxone 4 mg/actuation nasal 4 mg intranasal Q3M PRN opioid 02/13/23 08/09/24 Rx spray (Narcan) overdose #2 ea oxycodone-acetaminophen 5 mg-325 1 tab PO DAILY PRN pain #30 tabs 02/11/24 Rx mg tablet (Percocet) paroxetine HCl 30 mg tablet 60 mg PO 02/11/24 History pregabalin 200 mg capsule (Lyrica) 200 mg PO Q12H 02/11/24 08/09/24 History oxycodone-acetaminophen 5 mg-325 1 tab PO Q8H PRN pain #30 tabs 05/24/24 08/09/24 Rx mg tablet (Percocet) oxycodone-acetaminophen 5 mg-325 See Rx Instructions .Route 05/24/24 08/09/24 Rx mg tablet (Percocet) .COMPLEX PRN pain #30 tabs oxycodone-acetaminophen 5 mg-325 1 tab PO DAILY PRN pain #30 tabs 08/11/24 Rx mg tablet (Percocet) oxycodone-acetaminophen 5 mg-325 1 tab PO DAILY PRN pain #30 tabs 10/07/24 Rx mg tablet (Percocet) Allergies Allergy/AdvReac Type Severity Reaction Status Date / Time metoclopramide (From Reglan) Allergy Intermediate Anxiety Verified 08/09/24 09:18 sulfabenzamide Allergy Intermediate Rash Verified 08/09/24 09:18 sumatriptan (From Imitrex) Allergy Intermediate Anxiety Verified 08/09/24 09:18 amoxicillin (From Augmentin) Allergy Unknown Rash Verified 08/09/24 09:18 clavulanic acid (From Allergy Unknown Rash Verified 08/09/24 09:18 Augmentin) Exam Constitutional Documenting provider has reviewed patient's vital signs: yes Common normals: no apparent distress, oriented x3 and alert General appearance: cooperative HENME Common normals: normocephalic, hearing grossly normal bilaterally and moist oral mucous membranes Head and scalp: normocephalic Eye Common normals: PERRL Pupil: PERRL Neck & C-Spine Common normals: full ROM General: normal visual inspection Chest Common normals: inspection of chest normal Respiratory Common normals: normal respiratory effort, no retractions and no use of accessory muscles Back & Pelvis Lumbar spine/lower back: ROM limited, pain with ROM, lumbar spinal tenderness Lumbar spinal tenderness location: L3, L4 and L5, straight leg raise positive right and straight leg raise positive left Sacroiliac joints: SI joint(s) abnormal Other: positive facet loading strength 5/5 in BLE decreased sensation bilateral L4,5,S1 bilateral sij positive rohan(patricks), gaenslens, thigh thrust, compression test Neuro Common normals: oriented x3 Sensorium/orientation: alert Psych Common normals: mental status grossly normal, thought process normal, cooperative, affect normal, speech normal and activity/motor behavior normal Speech: normal speech Thought process: normal thought process Results Additional Findings Additional findings: If on a controlled substance or opioids, I have checked an [place] report on this patient and there are no aberrancies noted in the prescribing history.??If on a controlled substance or opioid a drug screen was completed and reviewed within the last year, and if there has not been a drug screen completed we ordered one today to monitor higher risk, state monitored pain medication use. As part of providing excellent, safe, comprehensive care, the following was completed at our patient's visit: 1. A medication reconciliation and review to ensure accurate knowledge of current/active medications, including asking our patients to inform us about any [id number] medications or herbal remedies/nutritional supplements/alternative remedies. 2. A review to specifically ensure our patients have had annual screening for screening for depression, screening for tobacco use, and screening for unhealthy alcohol use. For concerning screenings had a discussion with the patient, provided patient education, and recommended follow-up with primary care provider when appropriate. If patient noted with a risk of falling, they received education on strength, gait, and balance training to prevent future risk of falling. Portions of this note may have been carried over from the previous visit and updated as appropriate. Please note this office utilizes paper charting in addition to the electronic medical record. A list of current medications, vitals, and PMH is available there as the clinical staff outside of myself do not have access to [facility] charting during the clinic day operations. As part of providing quality comprehensive care the current medications, vitals, and PMH were reviewed in the paper chart. Assessment and Plan Assessment and Plan (1) Lumbar stenosis with neurogenic claudication: (2) Lumbar spondylosis: (3) Chronic prescription opiate use: Assessment and Plan: notes moderate pain relief for 6 hours without side effects. utilizes sparingly to improve pain with ADLs I feel these medications are improving the patient's quality of life and allow them to tolerate activities of daily living as well as participate in recreational activity.? The patient does not report intolerable side effects. The patient is NOT opioid naive and non-pharmacologic and non-opioid treatment has failed to significantly relieve the patient's pain and improve functionality. The patient has a diagnosis that is related to a somatic or visceral pain etiology. ? ?? I reviewed with the patient the potential risks and side effects with the use of? opioid medications including but not limited to respiratory depression,? sedation, and even . Within the last 12 months I have verified the patient has access to naloxone should? these effects occur. The patient was advised to let? their family know they had Naloxone in case they would need to administer? the medication. I advised the patient to avoid the use of any other? sedation substances including alcohol, THC, and benzodiazepines while? taking opioid medications due to the risk of compounding side effects and? detrimental outcomes. within the last 12 months I have reviewed the [employer], pain treatment agreement and urine drug screen.? ?? A drug screen was completed within the last year, and no aberrancies were noted regarding their use of controlled substances. The patient understands they are subject to the terms and conditions of the pain contract that they have signed. ? ?? I have checked an [place]AR[place] report on this patient today and there are no aberrancies noted in the prescribing history.? (4) Sacroiliitis: (5) Fibromyalgia: Plan The patient has had over 3 months of moderate to severe low back and BLE pain with functional impairment and inadequate response to conservative care including NSAIDS (unless there are contraindication such as concurrent blood thinners), multiple oral or topical pain medications, and home exercise program/physical therapy.? Patient has completed >6 weeks of guided home exercise program and/or formal physical therapy program without relief of their symptoms.? The Oswestry Disability Index was completed, and the patient scored a 54%.? defer interventional therapy due to lack of insurance, pt cannot afford update UDS for medication monitoring and chronic prescription opioid use increase lyrica 200mg tid for fibromyalgia and lumbar stenosis with nc, risks vs benefits reviewed nurse call in 1 month to evaluate response to medication regimen, pt to call if side effects and for refills as discussed today continue HEP as tolerated continue percocet 5-325mg daily prn moderate to severe pain, 30 tabs to last 30 days f/u 3 months with provider for medication management
== END 2025-01-26 11:00 | disposition home or self-care (01) ==
LOC: PM 11:00
PROVIDERS: PCP Family Medicine; Visit Provider Nurse Practitioner
DX: M48.062 Spinal stenosis, lumbar region with neurogenic claudication (principal); M47.816 Spondylosis without myelopathy or radiculopathy, lumbar region; Z79.891 Long term (current) use of opiate analgesic
CPT/HCPCS: G0463